=== PATIENT | female | born 1930 | race Hispanic/Latino ===

== ENCOUNTER 2016-07-12 10:41 | Inpatient (IN) | payer MEDICARE, MEDICAID ==
[~2016-07-12] VITALS: Ht 149.9 cm; Wt 67.1 kg
[~2016-07-12 10:41] MED LIST: ARICEPT10 MG ORAL; ATIVAN2 MG ORAL; CALCITONIN-SAL3.7 ML NS; CIPROFLOXACIN500 M2 ORAL; DILAUDID1 MG/1 ML PO; DOCUSATE SODIU100 MG ORAL; FISH OIL 1,0001 EAC5 ORAL; FLAGYL500 MG ORAL; FLORANEX TABLE1 EAC1 PO; FLUVOXAMINE MAL50 MG ORAL; KEFLEX250 MG ORAL; LIDOCAINE700 M1 TP; LOPRESSOR25 M1 ORAL; MACROBID100 MG ORAL; MULTIVITAMINS1 EAC8 ORAL; NAMENDA10 MG ORAL; NITROFURANTOIN100 MG PO; NORCO 10/3251 EA ORAL; PANTOPRAZOLE SO40 MG ORAL; PHENYTOIN100 MG/4 M ORAL; SIMVASTATIN20 MG ORAL; TOPROL XL100 MG ORAL; TYLENOL650 MG/20. ORAL; VESICARE10 MG ORAL; ZYPREXA5 MG ORAL
[2016-07-12 12:04] LABS: BASOPHILS % (AUTO) 1.9 % (0.0-2.0); EOSINOPHILS % (AUTO) 4.2 % (0.0-3.0); LYMPHOCYTES % (AUTO) 41.3 % (20.0-45.0); MEAN CORPUSCULAR HEMOGLOBIN 26.7 PG (27.0-31.0); MEAN CORPUSCULAR HGB CONC 32.2 G/DL (32.0-36.0); MEAN CORPUSCULAR VOLUME 83 FL (80-99); MONOCYTES % (AUTO) 15.8 % (1.0-10.0); NEUTROPHILS % (AUTO) 36.9 % (45.0-75.0); PLATELET COUNT 394 K/UL (150-450); RED BLOOD COUNT 4.64 M/UL (4.20-5.40); WHITE BLOOD COUNT 7.6 K/UL (4.8-10.8)
[2016-07-12 12:20] LABS: ALANINE AMINOTRANSFERASE 25 U/L (3-33); ALBUMIN/GLOBULIN RATIO 1.2 (1.0-2.7); ANION GAP 15 (5-15); ASPARTATE AMINO TRANSFERASE 31 U/L (5-40); CALCIUM 9.3 mg/dL (8.6-10.2); CARBON DIOXIDE 22 mEQ/L (20-30); CHLORIDE 83 mEQ/L (98-107); CREATININE 0.7 mg/dL (0.5-0.9); HEMOLYSIS 58; POTASSIUM 4.6 mEQ/L (3.4-4.9); SODIUM 120 mEQ/L (135-145); TOTAL PROTEIN 6.9 g/dL (6.6-8.7); TROPONIN I < 0.30 ng/mL (<=0.30)
[2016-07-12 12:25] VITALS: BP 121/70
[2016-07-12] MEDS ORDERED: Acetaminophen 500mg (ES) tab ORAL ONE (12:45)
[2016-07-12] MEDS ORDERED: BISACODYL5 MG RECTAL (13:05)
[2016-07-12] MEDS ORDERED: CALCIUM + D SO1 EACH PO (13:05)
[2016-07-12] MEDS ORDERED: ECOTRIN325 MG ORAL (13:05)
[2016-07-12] MEDS ORDERED: ACYCLOVIR400 MG ORAL (13:05)
[2016-07-12] MEDS ORDERED: VITAMIN D250000 UNI1 ORAL (13:07)
[2016-07-12] MEDS ORDERED: FERROUS SULFAT325 MG ORAL (13:07)
[2016-07-12] MEDS ORDERED: MELATONIN1 M1 PO (13:10)
[2016-07-12] MEDS ORDERED: PROBIOTIC COMP1 EAC1 PO (13:10)
[2016-07-12] MEDS ORDERED: LORAZEPAM1 MG ORAL (13:10)
[2016-07-12] MEDS ORDERED: LEVOTHYROXINE50 MCG ORAL (13:10)
[2016-07-12] MEDS ORDERED: RESTORIL7.5 MG ORAL (13:12)
[2016-07-12] MEDS ORDERED: ZANTAC150 MG ORAL (13:12)
[2016-07-12] MEDS ORDERED: PredniSONE 20mg tab ORAL ONE (13:15)
[2016-07-12 15:09] VITALS: BP 142/71
--- NOTE | 2016-07-12 16:01 | Emergency Room Report ---
History of Present Illness General Chief Complaint: Abnormal Labs Source: Patient, Medical Record Present Illness HPI This patient presents from a half-way facility. She is sent in for her hyponatremia that was identified at the half-way facility. The patient herself has no complaints other than that she has pain on her chest. She states that it jackson. She has a history of dementia, hypothyroidism, seizures. Allergies: Coded Allergies: NO KNOWN DRUG ALLERGIES (Unverified Allergy, Unknown, 07/29/14) Patient History Past Medical History: see triage record, old chart reviewed, dementia, seizures , psych hx Social History: Denies: alcohol use, drug use, smoking Reviewed Nursing Documentation: PMH: Agreed, PSxH: Agreed Nursing Documentation-PMH Hx Cardiac Problems: Yes Hx Hypertension: Yes Hx Asthma: Yes Hx Diabetes: Yes Hx Cancer: No Hx Gastrointestinal Problems: Yes Hx Neurological Problems: Yes Hx Dementia: Yes Hx Alzheimer's Disease: Yes Hx Seizures: Yes Review of Systems All Other Systems: negative except mentioned in HPI Physical Exam Vital Signs Date Time Temp Pulse Resp B/P Pulse Ox O2 Delivery O2 Flow Rate FiO2 07/12/16 10:51 97.5 69 20 100/52 97 Room Air Sp02 EP Interpretation: reviewed, normal General Appearance: no apparent distress, alert, GCS 15, non-toxic Head: normocephalic, atraumatic Eyes: bilateral eye PERRL, bilateral eye normal inspection ENT: hearing grossly normal, normal pharynx, no angioedema, normal voice Neck: full range of motion, supple/symm/no masses Respiratory: chest non-tender, lungs clear, normal breath sounds, speaking full sentences Cardiovascular #1: normal inspection - See skin exam, regular rate, rhythm, no edema Gastrointestinal: normal bowel sounds, non tender, soft, non-distended, no guarding, no rebound Rectal: deferred Musculoskeletal: back normal, gait/station normal, normal range of motion, non- tender Neurologic: alert, oriented x3, responsive, motor strength/tone normal, sensory intact, speech normal Psychiatric: judgement/insight normal, memory normal, mood/affect normal, no suicidal/homicidal ideation Skin: warm/dry, well hydrated, other - Erythematous rash in dermatomal distribution on R. chest wall. Medical Decision Making Diagnostic Impression: Primary Impression: Hyponatremia Additional Impression: Varicella zoster ER Course This patient presents with hyponatremia. I am unsure of the etiology of this. Possibly diabetes insipidus. Regardless, the patient is stable well appearing overall. She is also found to have varicella-zoster rash on her chest wall. It is in a dermatomal pattern does not appear disseminated. This is the location of the patient's pain that she complains of. The patient is admitted for further evaluation and treatment further monitoring of her hyponatremia. Labs Test 07/12/16 11:35 White Blood Count 7.6 K/UL (4.8-10.8) Red Blood Count 4.64 M/UL (4.20-5.40) Hemoglobin 12.4 G/DL (12.0-16.0) Hematocrit 38.5 % (37.0-47.0) Mean Corpuscular Volume 83 FL (80-99) Mean Corpuscular Hemoglobin 26.7 PG (27.0-31.0) Mean Corpuscular Hemoglobin Concent 32.2 G/DL (32.0-36.0) Red Cell Distribution Width 17.0 % (11.6-14.8) Platelet Count 394 K/UL (150-450) Mean Platelet Volume 5.0 FL (6.5-10.1) Neutrophils (%) (Auto) 36.9 % (45.0-75.0) Lymphocytes (%) (Auto) 41.3 % (20.0-45.0) Monocytes (%) (Auto) 15.8 % (1.0-10.0) Eosinophils (%) (Auto) 4.2 % (0.0-3.0) Basophils (%) (Auto) 1.9 % (0.0-2.0) Sodium Level 120 mEQ/L (135-145) Potassium Level 4.6 mEQ/L (3.4-4.9) Chloride Level 83 mEQ/L (98-107) Carbon Dioxide Level 22 mEQ/L (20-30) Anion Gap 15 (5-15) Blood Urea Nitrogen 16 mg/dL (7-23) Creatinine 0.7 mg/dL (0.5-0.9) Estimat Glomerular Filtration Rate mL/min (>60) Glucose Level 106 mg/dL (74-106) Calcium Level 9.3 mg/dL (8.6-10.2) Total Bilirubin 0.2 mg/dL (0.0-1.2) Aspartate Amino Transf (AST/SGOT) 31 U/L (5-40) Alanine Aminotransferase (ALT/SGPT) 25 U/L (3-33) Alkaline Phosphatase 129 U/L (35-104) Troponin I < 0.30 ng/mL (<=0.30) Total Protein 6.9 g/dL (6.6-8.7) Albumin 3.8 g/dL (3.5-5.2) Globulin 3.1 g/dL Albumin/Globulin Ratio 1.2 (1.0-2.7) EKG Diagnostic Results Rate: normal Rhythm: other - SR w/ 1st degree AV block ST Segments: no acute changes Rhythm Strip Diag. Results EP Interpretation: yes Rate: 70's Rhythm: NSR, no PVC's, no ectopy Last Vital Signs Date Time Temp Pulse Resp B/P Pulse Ox O2 Delivery O2 Flow Rate FiO2 07/12/16 15:09 97.5 69 17 142/71 99 Room Air Disposition: ADMITTED INPATIENT Condition: Serious Referrals: SABINO SRINIVASAN (PCP) NINO DUPREE D.O. Jul 12, 2016 16:01
[2016-07-12 17:34] VITALS: BP 127/55
[2016-07-12 19:43] VITALS: BP 132/50
[2016-07-12] MEDS ORDERED: Phenytoin Susp 100mg/4ml ORAL SCH (20:00)
[2016-07-12] MEDS ORDERED: Miralax 17gm pkt ORAL PRN (20:00)
[2016-07-12] MEDS ORDERED: Milk of Magnesia 30ml Ud ORAL PRN (20:00)
[2016-07-12 20:37] VITALS: BP 155/59
[2016-07-12] MEDS ORDERED: Phenytoin 100mg cap ORAL SCH (21:00)
[2016-07-12] MEDS ORDERED: ZyPREXA Zydis 5mg tab ORAL SCH (21:00)
[2016-07-12] MEDS ORDERED: DuoNeb 0.5-3(2.5)mg/3ml neb HHN PRN (22:00)
[2016-07-12] MEDS ORDERED: LORazepam 1mg tab ORAL PRN (22:00)
[2016-07-12] MEDS ORDERED: Norco 10mg/325mg tab ORAL SCH (22:00)
[2016-07-12] MEDS: Memantine 10mg tab ORAL SCH (22:44)
[2016-07-12] MEDS: Docusate 100mg tablet ORAL SCH (22:45)
[2016-07-12] MEDS: Heparin 5000 units/ml inj SUBQ SCH (22:47)
[2016-07-13 00:08] VITALS: BP 137/59
--- NOTE | 2016-07-13 00:33 | History and Physical ---
History of Present Illness General Date patient seen: Jul 12, 2016 Time patient seen: 17:00 Reason for Hospitalization: Abnormal Labs Present Illness HPI 85 year old female with pmh of Pulmonary HTN, SDH, Seizure d/o, HLD, PSVT, Anemia, BLE DVTs, Chronic back pain, Asthma, Anxiety, Alzheimer's, recurrent UTIs, CVA who was transferred from SNF given increase lethargy, confusion, and abnormal labs. Pt was noted to have Na 115 at labs done at [facility]. She also generally more weak, fatigued and confused than usual. Pt c/o pain in upper back , burning sensation. In ED, pt found to have herpes zoster on upper back and given Acyclovir. Pt also noted to have Na 120. Pt was given 1L NS. Allergies: Coded Allergies: NO KNOWN DRUG ALLERGIES (Unverified Allergy, Unknown, 07/29/14) Medication History Scheduled Acidophilus/Bulgaricus (Floranex Tablet), 1 EACH PO BID, (Reported) Acyclovir* (Acyclovir*), 800 MG ORAL FIVE TIMES A DAY, (Reported) Aspirin* (Ecotrin*), 81 MG ORAL DAILY, (Reported) Bisacodyl* (Dulcolax*), 10 MG RECTAL ONCE, (Reported) Ca Carbonate/Vitamin D3/Vit K (Calcium + D Soft Chewable Tab), 1 EACH PO DAILY, (Reported) Calcitonin,Nesbit,Synthetic (Calcitonin-Nesbit), 3.7 ML NS DAILY, (Reported) Docusate Sodium* (Docusate Sodium*), 100 MG ORAL TWICE A DAY, (Reported) Donepezil Hcl* (Aricept*), 10 MG ORAL DAILY, (Reported) Ergocalciferol (Vitamin D2)* (Vitamin D*), 50,000 UNIT ORAL ONCE A WEEK, ( Reported) Ferrous Sulfate* (Ferrous Sulfate*), 325 MG ORAL DAILY, (Reported) Fluvoxamine Maleate (Fluvoxamine Maleate), 50 MG ORAL BID, (Reported) Lactobacillus Cmb#7/Fos/Inulin (Probiotic Complex Tablet), Unknown Dose PO DAILY , (Reported) Levothyroxine Sodium* (Levothyroxine Sodium*), 50 MCG ORAL DAILY, (Reported) Lidocaine (Lidocaine), 1,400 MG TP DAILY, (Reported) Lorazepam* (Lorazepam*), 1 MG ORAL THREE TIMES A DAY, (Reported) Memantine Hcl* (Namenda*), 10 MG ORAL TWICE A DAY, (Reported) Metoprolol Succinate* (Toprol Xl*), 200 MG ORAL DAILY Multivitamin With Minerals (Multivitamins With Minerals*), 1 TAB ORAL DAILY, ( Reported) Nitrofurantoin Macrocrystal (Nitrofurantoin), 100 MG PO BID Nitrofurantoin Monohyd/M-Cryst (Nitrofurantoin [place]-Mcr 100 mg), 100 MG ORAL BID , (Reported) Olanzapine* (Zyprexa*), 5 MG ORAL HS, (Reported) [place]-3 Fatty Acids/Fish Oil (Fish Oil 1,000 Mg Capsule), 1 CAP ORAL BID, ( Reported) Pantoprazole* (Pantoprazole*), 40 MG ORAL DAILY, (Reported) Phenytoin (Phenytoin*), 300 MG ORAL HS, (Reported) Ranitidine Hcl* (Zantac*), 150 MG ORAL TWICE A DAY, (Reported) Simvastatin (Zocor), 20 MG ORAL BEDTIME, (Reported) Solifenacin Succinate (Vesicare*), 10 MG ORAL HS, (Reported) Temazepam* (Restoril*), 7.5 MG ORAL BEDTIME, (Reported) Scheduled PRN Acetaminophen (Acetaminophen), 650 MG ORAL Q6H PRN for Prn Headache/Temp > 101, (Reported) Lorazepam* (Ativan*), 2 MG ORAL THREE TIMES A DAY PRN for Agitation, (Reported) Melatonin (Melatonin), 1 MG PO BEDTIME PRN for Insomnia, (Reported) Patient History Healthcare decision maker Resuscitation status Advanced Directive on File Family History Family History: Patient reports no known family medical history. Social History Social History: (1) No significant social history Review of Systems ROS Narrative Unable to obtain ROS given AMS Physical Exam Physical Exam Narrative General: alert, cooperative, no distress, appears stated age, lethargic, confused Head: normocephalic, without obvious abnormality, atraumatic Eyes: conjunctivae/corneas clear. PERRL, EOM's intact Throat: lips, mucosa, and tongue normal. MMM Neck: supple, symmetrical, trachea midline, and no JVD Lungs: clear to auscultation bilaterally Heart: regular rate and rhythm, S1, S2 normal, no murmur, click, rub or gallop Abdomen: soft, non-tender, non-distended, bowel sounds normal; no masses or organomegaly Extremities: extremities normal, atraumatic, no cyanosis or edema Pulses: 2+ and symmetric Skin: skin color, texture, turgor normal R upper back with herpes zoster rash in dermatomal distribution Neurologic: grossly normal, no focal deficits Last 24 Hour Vital Signs Date Time Temp Pulse Resp B/P Pulse Ox O2 Delivery O2 Flow Rate FiO2 07/13/16 00:08 98.2 65 17 137/59 93 Room Air 07/12/16 20:37 97.2 71 22 155/59 97 Room Air 07/12/16 19:51 97.5 69 17 132/50 99 Room Air 07/12/16 19:43 97.5 69 17 132/50 99 Room Air 07/12/16 17:34 97.5 70 15 127/55 99 Room Air 07/12/16 15:09 97.5 69 17 142/71 99 Room Air 07/12/16 14:48 97.5 07/12/16 12:25 97.5 69 18 121/70 98 Room Air 07/12/16 10:51 97.5 69 20 100/52 97 Room Air Intake and Output 07/12/16 07/13/16 19:00 07:00 Intake Total 1120 ml Balance 1120 ml Intake Oral 120 ml Other 1000 ml # Voids 3 Laboratory Tests Test 07/12/16 11:35 White Blood Count 7.6 K/UL (4.8-10.8) Red Blood Count 4.64 M/UL (4.20-5.40) Hemoglobin 12.4 G/DL (12.0-16.0) Hematocrit 38.5 % (37.0-47.0) Mean Corpuscular Volume 83 FL (80-99) Mean Corpuscular Hemoglobin 26.7 PG (27.0-31.0) L Mean Corpuscular Hemoglobin Concent 32.2 G/DL (32.0-36.0) Red Cell Distribution Width 17.0 % (11.6-14.8) H Platelet Count 394 K/UL (150-450) Mean Platelet Volume 5.0 FL (6.5-10.1) L Neutrophils (%) (Auto) 36.9 % (45.0-75.0) L Lymphocytes (%) (Auto) 41.3 % (20.0-45.0) Monocytes (%) (Auto) 15.8 % (1.0-10.0) H Eosinophils (%) (Auto) 4.2 % (0.0-3.0) H Basophils (%) (Auto) 1.9 % (0.0-2.0) Sodium Level 120 mEQ/L (135-145) L Potassium Level 4.6 mEQ/L (3.4-4.9) Chloride Level 83 mEQ/L (98-107) L Carbon Dioxide Level 22 mEQ/L (20-30) Anion Gap 15 (5-15) Blood Urea Nitrogen 16 mg/dL (7-23) Creatinine 0.7 mg/dL (0.5-0.9) Estimat Glomerular Filtration Rate mL/min (>60) Glucose Level 106 mg/dL (74-106) Calcium Level 9.3 mg/dL (8.6-10.2) Total Bilirubin 0.2 mg/dL (0.0-1.2) Aspartate Amino Transf (AST/SGOT) 31 U/L (5-40) Alanine Aminotransferase (ALT/SGPT) 25 U/L (3-33) Alkaline Phosphatase 129 U/L (35-104) H Troponin I < 0.30 ng/mL (<=0.30) Total Protein 6.9 g/dL (6.6-8.7) Albumin 3.8 g/dL (3.5-5.2) Globulin 3.1 g/dL Albumin/Globulin Ratio 1.2 (1.0-2.7) Thyroid Stimulating Hormone (TSH) 7.030 uIU/mL (0.300-4.500) Height (Feet): 4 Height (Inches): 11.00 Weight (Pounds): 148 Medications Current Medications Medications (Trade) Dose Ordered Sig/Jacque Route PRN Reason Start Time Stop Time Status Last Admin Dose Admin Acetaminophen (Tylenol) 650 mg Q4H PRN ORAL Mild Pain (Pain Scale 1-3) 07/12/16 20:00 08/11/16 19:59 07/12/16 21:04 Acetaminophen/ Hydrocodone Bitart ([place] 10/325) 1 ea Q4H PRN ORAL Moderate pain 07/13/16 02:00 07/20/16 01:59 Acyclovir (Zovirax) 800 mg Q24H ORAL 07/12/16 23:00 08/11/16 22:59 07/13/16 00:02 Albuterol/ Ipratropium (DuoNeb 0.5-3(2.5)mg/3ml) 3 ml Q6HR PRN HHN shortness of breath 07/12/16 22:00 07/17/16 21:59 Aspirin (ASA) 81 mg DAILY ORAL 07/13/16 09:00 08/12/16 08:59 Bisacodyl (Dulcolax) 10 mg HSPRN PRN RECTAL Constipation THIRD LINE 07/12/16 20:39 08/11/16 19:59 Calcitonin [place]es[place] (Miacalcin) 1 sprays DAILY NASAL 07/13/16 09:00 08/12/16 08:59 Dextrose (Dextrose 50%) STAT PRN IV Hypoglycemia 07/12/16 20:00 08/11/16 19:59 Docusate Sodium (Colace) 100 mg EVERY 12 HOURS ORAL 07/12/16 21:00 08/11/16 20:59 07/12/16 22:45 Donepezil HCl (Aricept) 10 mg DAILY ORAL 07/13/16 09:00 08/12/16 08:59 Ergocalciferol (Drisdol) 50,000 intlu QWEEK ORAL 07/18/16 09:00 08/17/16 08:59 Ferrous Sulfate (Feosol) 325 mg DAILY ORAL 07/13/16 09:00 08/12/16 08:59 Heparin Sodium (Porcine) (Heparin 5000 units/ml) 5,000 units EVERY 12 HOURS SUBQ 07/12/16 21:00 08/11/16 20:59 07/12/16 22:47 Levothyroxine Sodium (Synthroid) 50 mcg ACBREAKFAST ORAL 07/13/16 06:30 08/12/16 06:29 Lidocaine (Lidoderm 5% PATCH) 1 patch DAILY@0630 TDERMAL 07/13/16 06:30 08/12/16 06:29 Lorazepam (Ativan) 1 mg THREE TIMES A DAY ORAL 07/13/16 21:00 07/20/16 20:59 Lorazepam (Ativan) 1 mg TIDPRN PRN ORAL for anxiety 07/12/16 22:00 07/19/16 21:59 Magnesium Hydroxide (Mom) 30 ml HSPRN PRN ORAL Constipation SECOND LINE 07/12/16 20:00 08/11/16 19:59 Memantine (Namenda) 10 mg TWICE A DAY ORAL 07/12/16 21:00 08/11/16 20:59 07/12/16 22:44 Metoprolol Succinate (Toprol XL) 200 mg DAILY ORAL 07/13/16 09:00 08/12/16 08:59 Multivitamins Therapeutic (Therapeutic Multivitamin) 1 ea DAILY ORAL 07/13/16 09:00 08/12/16 08:59 Olanzapine (ZyPREXA) 5 mg QHS ORAL 07/12/16 22:30 08/11/16 22:29 07/13/16 00:01 Ondansetron HCl (Zofran) 4 mg Q6H PRN IVP Nausea & Vomiting 07/12/16 20:00 08/11/16 19:59 Pantoprazole (Protonix) 40 mg DAILY ORAL 07/13/16 09:00 08/12/16 08:59 Phenytoin (Dilantin) 200 mg BEDTIME ORAL 07/13/16 23:00 08/12/16 22:59 Polyethylene Glycol (Miralax) 17 gm HSPRN PRN ORAL Constipation FIRST LINE 07/12/16 20:00 08/11/16 19:59 Pravastatin Sodium (Pravachol) 20 mg BEDTIME ORAL 07/12/16 21:00 08/11/16 20:59 07/12/16 22:45 Sodium Chloride (Sodium Chloride 1000ml bag) 1,000 ml @ 100 mls/hr Q10H IVLG 07/12/16 21:00 08/11/16 20:59 07/12/16 22:44 Solifenacin (Vesicare) 10 mg DAILY ORAL 07/13/16 09:00 08/12/16 08:59 Assessment/Plan Problem List: (1) Herpes zoster ICD Codes: B02.9 - Zoster without complications SNOMED: 6659486 (2) Generalized weakness ICD Codes: R53.1 - Weakness SNOMED: 51259573 (3) Toxic metabolic encephalopathy ICD Codes: G92 - Toxic encephalopathy SNOMED: 656018449 (4) Hyponatremia ICD Codes: E87.1 - Hyponatremia SNOMED: 93996037 Status: stable Assessment/Plan Hyponatremia likely hypovolemic type 2/2 dehydration Admit inpatient Check urine studies Nephrology consult NS at 100mL/h ID consult Acyclovir 800mg TID Cont all SNF meds [employer] eval PT/OT DVT Prophylaxis: SCD, HSQ Code Status: Full Hospital Classification Declaration: Based on this initial evaluation, and depending on the patient's clinical course, I anticipate that this patient will require hospitalization for 2-3 days for hyponatremia, AMS and close respiratory /hemodynamic monitoring. Disposition: Once the patient is stable to leave the hospital, I anticipate the patient will likely be discharged to the following environment: home with HH vs SNF I spent 70 minutes on this patient's case, and 38 minutes were dedicated to counseling and/or care coordination. Discussed with patient/family, nursing staff, SW/CM, ED physician regarding clinical status, treatment course, and disposition planning. Time of note may not reflect time of encounter. Prachi Mejia M.D. Jul 13, 2016 00:33
[2016-07-13] MEDS: Norco 10mg/325mg tab ORAL PRN ×3 (01:24→19:14)
[2016-07-13 04:10] VITALS: BP 133/68
[2016-07-13 07:53] VITALS: BP 134/57
[2016-07-13] MEDS ORDERED: Donepezil 10mg tab ORAL SCH (09:00)
[2016-07-13] MEDS: Multivitamin w/Minerals tab ORAL SCH (09:08)
[2016-07-13] MEDS: Docusate 100mg tablet ORAL SCH ×2 (09:08→18:07)
[2016-07-13] MEDS: LORazepam 1mg tab ORAL SCH (09:09)
[2016-07-13] MEDS: Memantine 10mg tab ORAL SCH ×2 (09:10→18:07)
[2016-07-13 09:14] LABS: ALANINE AMINOTRANSFERASE 29 U/L (3-33); ALBUMIN/GLOBULIN RATIO 1.3 (1.0-2.7); ANION GAP 18 (5-15); ASPARTATE AMINO TRANSFERASE 33 U/L (5-40); CARBON DIOXIDE 22 mEQ/L (20-30); CHLORIDE 88 mEQ/L (98-107); CREATININE 0.6 mg/dL (0.5-0.9); HEMOLYSIS 93; MAGNESIUM 2.2 mg/dL (1.7-2.5); POTASSIUM 4.9 mEQ/L (3.4-4.9); SODIUM 128 mEQ/L (135-145); TOTAL PROTEIN 7.6 g/dL (6.6-8.7)
[2016-07-13] MEDS: Aspirin Baby 81mg ORAL SCH (10:47)
[2016-07-13] MEDS: Metoprolol XL 100mg tab ORAL SCH (10:47)
[2016-07-13] MEDS: Solifenacin 10mg tab ORAL SCH (10:47)
[2016-07-13] MEDS: Heparin 5000 units/ml inj SUBQ SCH ×2 (10:51→22:49)
[2016-07-13 11:30] VITALS: BP 129/55
--- NOTE | 2016-07-13 11:58 | Infectious Diseases Prog Note ---
Assessment/Plan Assessment/Plan Full consult to follow: A) 1) right back herpes zoster virus/shingles 2) no cellulitis at lesion sites 3) htn, dm, Alzheimer 4) nkda P) 1) acyclovir, d/w pharmacy about renal dosing in this elderly patient 2) watch labs/cr 3) continue treatment per Dr. Velarde 4) thank you Subjective Allergies: Coded Allergies: NO KNOWN DRUG ALLERGIES (Unverified Allergy, Unknown, 07/29/14) Objective Vital Signs Last 24 Hour Vital Signs Date Time Temp Pulse Resp B/P Pulse Ox O2 Delivery O2 Flow Rate FiO2 07/13/16 11:30 97.3 71 18 129/55 97 Room Air 07/13/16 10:47 66 134/57 07/13/16 07:53 97.0 66 18 134/57 96 Room Air 07/13/16 06:03 84 07/13/16 04:10 98.6 69 19 133/68 96 Room Air 07/13/16 03:07 70 07/13/16 00:08 98.2 65 17 137/59 93 Room Air 07/12/16 20:37 97.2 71 22 155/59 97 Room Air 07/12/16 19:51 97.5 69 17 132/50 99 Room Air 07/12/16 19:43 97.5 69 17 132/50 99 Room Air 07/12/16 17:34 97.5 70 15 127/55 99 Room Air 07/12/16 15:09 97.5 69 17 142/71 99 Room Air 07/12/16 14:48 97.5 07/12/16 12:25 97.5 69 18 121/70 98 Room Air Height (Feet): 4 Height (Inches): 11.00 Weight (Pounds): 148 Laboratory Tests Test 07/13/16 08:14 White Blood Count Pending Red Blood Count Pending Hemoglobin Pending Hematocrit Pending Mean Corpuscular Volume Pending Mean Corpuscular Hemoglobin Pending Mean Corpuscular Hemoglobin Concent Pending Red Cell Distribution Width Pending Platelet Count Pending Mean Platelet Volume Pending Neutrophils (%) (Auto) Pending Lymphocytes (%) (Auto) Pending Monocytes (%) (Auto) Pending Eosinophils (%) (Auto) Pending Basophils (%) (Auto) Pending Sodium Level 128 mEQ/L (135-145) L Potassium Level 4.9 mEQ/L (3.4-4.9) Chloride Level 88 mEQ/L (98-107) L Carbon Dioxide Level 22 mEQ/L (20-30) Anion Gap 18 (5-15) H Blood Urea Nitrogen 9 mg/dL (7-23) Creatinine 0.6 mg/dL (0.5-0.9) Estimat Glomerular Filtration Rate mL/min (>60) Glucose Level 118 mg/dL (74-106) H Calcium Level 10.0 mg/dL (8.6-10.2) Magnesium Level 2.2 mg/dL (1.7-2.5) Total Bilirubin 0.2 mg/dL (0.0-1.2) Aspartate Amino Transf (AST/SGOT) 33 U/L (5-40) Alanine Aminotransferase (ALT/SGPT) 29 U/L (3-33) Alkaline Phosphatase 146 U/L (35-104) H Total Protein 7.6 g/dL (6.6-8.7) Albumin 4.3 g/dL (3.5-5.2) Globulin 3.3 g/dL Albumin/Globulin Ratio 1.3 (1.0-2.7) Current Medications Medications (Trade) Dose Ordered Sig/Jacque Route PRN Reason Start Time Stop Time Status Last Admin Dose Admin Acetaminophen (Tylenol) 650 mg Q4H PRN ORAL Mild Pain (Pain Scale 1-3) 07/12/16 20:00 08/11/16 19:59 07/12/16 21:04 Acetaminophen/ Hydrocodone Bitart ([place] 10/325) 1 ea Q4H PRN ORAL Moderate pain 07/13/16 02:00 07/20/16 01:59 07/13/16 09:09 Acyclovir (Zovirax) 800 mg Q24H ORAL 07/12/16 23:00 08/11/16 22:59 07/13/16 00:02 Albuterol/ Ipratropium (DuoNeb 0.5-3(2.5)mg/3ml) 3 ml Q6HR PRN HHN shortness of breath 07/12/16 22:00 07/17/16 21:59 Aspirin (ASA) 81 mg DAILY ORAL 07/13/16 09:00 08/12/16 08:59 07/13/16 10:47 Bisacodyl (Dulcolax) 10 mg HSPRN PRN RECTAL Constipation THIRD LINE 07/12/16 20:39 08/11/16 19:59 Calcitonin [place] (Miacalcin) 1 sprays DAILY NASAL 07/13/16 09:00 08/12/16 08:59 07/13/16 09:14 Dextrose (Dextrose 50%) STAT PRN IV Hypoglycemia 07/12/16 20:00 08/11/16 19:59 Docusate Sodium (Colace) 100 mg EVERY 12 HOURS ORAL 07/12/16 21:00 08/11/16 20:59 07/13/16 09:08 Donepezil HCl (Aricept) 10 mg DAILY ORAL 07/13/16 09:00 08/12/16 08:59 07/13/16 09:09 Ergocalciferol (Drisdol) 50,000 intlu QWEEK ORAL 07/18/16 09:00 08/17/16 08:59 Ferrous Sulfate (Feosol) 325 mg DAILY ORAL 07/13/16 09:00 08/12/16 08:59 07/13/16 09:08 Heparin Sodium (Porcine) (Heparin 5000 units/ml) 5,000 units EVERY 12 HOURS SUBQ 07/12/16 21:00 08/11/16 20:59 07/13/16 10:51 Levothyroxine Sodium (Synthroid) 50 mcg ACBREAKFAST ORAL 07/13/16 06:30 08/12/16 06:29 07/13/16 07:03 Lidocaine (Lidoderm 5% PATCH) 1 patch DAILY@0630 TDERMAL 07/13/16 06:30 08/12/16 06:29 07/13/16 07:04 Lorazepam (Ativan) 1 mg THREE TIMES A DAY ORAL 07/13/16 21:00 07/20/16 20:59 07/13/16 09:09 Lorazepam (Ativan) 1 mg TIDPRN PRN ORAL for anxiety 07/12/16 22:00 07/19/16 21:59 Magnesium Hydroxide (Mom) 30 ml HSPRN PRN ORAL Constipation SECOND LINE 07/12/16 20:00 08/11/16 19:59 Memantine (Namenda) 10 mg TWICE A DAY ORAL 07/12/16 21:00 08/11/16 20:59 07/13/16 09:10 Metoprolol Succinate (Toprol XL) 200 mg DAILY ORAL 07/13/16 09:00 08/12/16 08:59 07/13/16 10:47 Multivitamins Therapeutic (Therapeutic Multivitamin) 1 ea DAILY ORAL 07/13/16 09:00 08/12/16 08:59 07/13/16 09:08 Olanzapine 5 mg 5 mg QHS ORAL 07/12/16 22:30 08/11/16 22:29 07/13/16 00:01 Ondansetron HCl (Zofran) 4 mg Q6H PRN IVP Nausea & Vomiting 07/12/16 20:00 08/11/16 19:59 Pantoprazole (Protonix) 40 mg DAILY ORAL 07/13/16 09:00 08/12/16 08:59 07/13/16 09:08 Phenytoin (Dilantin) 200 mg BEDTIME ORAL 07/13/16 23:00 08/12/16 22:59 Polyethylene Glycol (Miralax) 17 gm HSPRN PRN ORAL Constipation FIRST LINE 07/12/16 20:00 08/11/16 19:59 Pravastatin Sodium (Pravachol) 20 mg BEDTIME ORAL 07/12/16 21:00 08/11/16 20:59 07/12/16 22:45 Sodium Chloride (Sodium Chloride 1000ml bag) 1,000 ml @ 75 mls/hr [id number] IVLG 07/13/16 10:00 08/12/16 09:59 07/13/16 10:46 Solifenacin (Vesicare) 10 mg DAILY ORAL 07/13/16 09:00 08/12/16 08:59 07/13/16 10:47 TIERA PRADO Jul 13, 2016 11:58
[2016-07-13 12:11] LABS: BASOPHILS % (AUTO) 0.9 % (0.0-2.0); EOSINOPHILS % (AUTO) 1.3 % (0.0-3.0); LYMPHOCYTES % (AUTO) 28.1 % (20.0-45.0); MEAN CORPUSCULAR HEMOGLOBIN 26.8 PG (27.0-31.0); MEAN CORPUSCULAR HGB CONC 31.6 G/DL (32.0-36.0); MEAN CORPUSCULAR VOLUME 85 FL (80-99); MEAN PLATELET VOLUME 5.6 FL (6.5-10.1); MONOCYTES % (AUTO) 14.7 % (1.0-10.0); NEUTROPHILS % (AUTO) 55.1 % (45.0-75.0); PLATELET COUNT 433 K/UL (150-450); RED BLOOD COUNT 4.58 M/UL (4.20-5.40); RED CELL DISTRIBUTION WIDTH 17.6 % (11.6-14.8); WHITE BLOOD COUNT 8.2 K/UL (4.8-10.8)
--- NOTE | 2016-07-13 14:03 | Consultation ---
Consult Note Consult Note asked to eval for hypoNatremia- This patient presents from a detention facility. She is sent in for her hyponatremia that was identified at the detention facility. The patient herself has no complaints other than that she has pain on her chest. She states that it jackson. She has a history of dementia, hypothyroidism, seizures. Hx Cardiac Problems: Yes Hx Hypertension: Yes Hx Asthma: Yes Hx Diabetes: Yes Hx Gastrointestinal Problems: Yes Hx Neurological Problems: Yes Hx Dementia: Yes Hx Alzheimer's Disease: Yes Hx Seizures: Yes patient examined- data reviewed- orders in EMR . Assessment/Plan status: HypoNatremia, Likely depletional, r/o SIADH Right back Herpes Zoster / Shingles Dementia High Cholestrol DM HTN Plan: Saline infusion check Urine Os, Na check S os, TSH, Uric acid monitor lytes further comments per above results ALYSON FLANAGAN Jul 13, 2016 14:03
[2016-07-13 16:00] VITALS: BP 119/57
[2016-07-13 17:43] LABS: APPEARANCE,URINE CLEAR; KETONES,URINE NEGATIVE (NEGATIVE); LEUKOCYTE ESTERASE ,URINE 1+ (NEGATIVE); NITRITE,URINE NEGATIVE (NEGATIVE); PH,URINE 6.5 (4.5-8.0); PROTEIN,URINE NEGATIVE (NEGATIVE); UROBILINOGEN,URINE NORMAL MG/DL (0.0-1.0)
[2016-07-13 18:18] LABS: RBC,URINE 0-2 /HPF (0 - 2)
[2016-07-13 18:19] LABS: WBC,URINE 0 /HPF (0 - 2)
[2016-07-13 20:00] VITALS: BP 118/54
--- NOTE | 2016-07-13 21:58 | Consultation ---
DATE OF CONSULTATION: INFECTIOUS DISEASE CONSULTATION CONSULTING PHYSICIAN: Agusto Orr M.D. ATTENDING PHYSICIAN: María Bustamante M.D. REFERRING PHYSICIAN: I was asked to by Dr. Velarde to see this patient. REASON FOR CONSULTATION: Right back herpes zoster virus infection/shingles. CHIEF COMPLAINT: Coming in with hyponatremia. HISTORY OF PRESENT ILLNESS: This 85-year-old female comes into [facility] and the patient had hyponatremia. The patient is being treated by Dr. Velarde. It was noted that the patient had significant herpes zoster rash in the right back dermatome up to her side, but mostly in the back. Infectious Disease consultation requested for antiviral therapy in this patient with herpes zoster virus/shingles. The patient does not know how long the lesions have been there, but she has some pain in the side. Case discussed with Dr. Velarde. MAR was noted. Orders was noted. Notes also reviewed. REVIEW OF SYSTEMS: Constitutional: The patient has generalized weakness and fatigue. No fever, chills, night sweats, or weight loss. Head and Neck: neck stiffness. Cardiac: No pressure or chest pain. GI: No nausea, vomiting, or diarrhea. : No Camacho. Pulmonary: No congestion or shortness of breath. Skin: No rash or itching. Extremities: No extremity pain. Neurologic: No seizures. She has herpes zoster virus lesions. PAST MEDICAL HISTORY: The patient has a past medical history of as described she came in with hyponatremia. She also has a past medical history of cardiac disease, hypertension, asthma, diabetes, gastrointestinal problems, neurological problems, dementia, Alzheimer's, and seizures. Please see past medical history in medical order. It seems like she has a history of hypothyroidism and hyperlipidemia. ALLERGIES: No known drug allergies. No antibiotic allergies. FAMILY HISTORY: Noncontributory. Negative for exposure to tuberculosis or cancer. SOCIAL HISTORY: Negative for smoking, alcohol, or drug abuse. MEDICATIONS: Upon reviewing the MAR, the patient is on the following medications. She is on Drisdol or ergocalciferol, Dilantin, Ativan, aspirin, calcitonin, Aricept, Feosol, Toprol, pantoprazole, VESIcare, Synthroid, Norris, Zovirax, Zyprexa, DuoNeb, heparin, Colace, Namenda, Dulcolax, Pravachol, Tylenol, MOM, and MiraLax. Please see medications in medical order and past medical history in medical order. PHYSICAL EXAMINATION: VITAL SIGNS: Temperature 97.3 degrees, pulse rate 71, respiratory rate 18, blood pressure 129/55, and saturation 97%. No significant fever. GENERAL: Alert, responsive, in no acute distress. HEAD AND NECK: Oral exam, no thrush. Eye exam, no icterus. Neck is supple. No JVD. No sinus tenderness. Normocephalic. No facial droop. No neck stiffness. LUNGS: Clear bilaterally. No rhonchi or rales. HEART: Regular. No gallop or murmur. ABDOMEN: Soft. Positive bowel sounds. SKIN: I have reviewed her right back area. There is certainly dermatomal distribution of herpes zoster virus vesicles and lesions/shingles. MUSCULOSKELETAL: No effusions or contractures. Lower extremities without varus and valgus. PERIPHERAL VASCULAR: No cyanosis or gangrene. RECTAL: Deferred. GENITOURINARY: No Camacho. LINES: Line sites are without phlebitis. NEUROLOGIC: Intact. Nonfocal. LABORATORY DATA: White count 8.2, hemoglobin 12.3, and platelet count 433,000. Creatinine is 0.6. LFTs are noted. Sodium 128 and creatinine 0.6. IMAGING STUDIES: There are no imaging studies. ASSESSMENT AND PLAN: 1. The patient has right back herpes zoster virus infection/shingles. The patient will be placed on acyclovir. She will need probably a 10-day course. Today is the day #2. I have discussed with pharmacy to adjust the dose for age-adjusted decreased immune function. The patient will be continued on acyclovir 800 mg, now she is on once a day, but possibly goes to q.12 h. based on pharmacy recommendations. Continue acyclovir day #2 out of 10 for right back herpes zoster virus/shingles infection that extended to the right side. 2. The patient has history of hypertension. Continue blood pressure control per Dr. Velarde. 3. Diabetes. Continue blood sugar control per Dr. Velarde. 4. Asthma 5. Cardiac disease. 6. Gastrointestinal disease. 7. Neurological problems. 8. Dementia. 9. Alzheimer's. 10. Seizure. 11. Hypothyroidism. 12. Hyperlipidemia. 13. Hyponatremia, treatment per Dr. Velarde. 14. MAR noted and notes reviewed. 15. Social history negative . 16. No known drug allergies. 17. Case discussed with RN. 18. The patient is on isolation for herpes zoster virus at this time. Thank you. I will follow. Agusto Orr M.D. DR: JAKE JOB#: [id number] CC:
[2016-07-13] MEDS ORDERED: Phenytoin 100mg cap ORAL SCH (23:00)
[2016-07-14] VITALS: BP 105/46
--- NOTE | 2016-07-14 03:36 | General Progress Note ---
Assessment/Plan Problem List: (1) Toxic metabolic encephalopathy ICD Codes: G92 - Toxic encephalopathy SNOMED: 151623385 (2) Hyponatremia ICD Codes: E87.1 - Hyponatremia SNOMED: 77094575 (3) Herpes zoster ICD Codes: B02.9 - Zoster without complications SNOMED: 6877495 (4) Generalized weakness ICD Codes: R53.1 - Weakness SNOMED: 09096766 Status: stable Assessment/Plan Hyponatremia likely hypovolemic type 2/2 dehydration. Improving w/ IVFs Appreciate renal rec's F/u urine studies Decr NS to 75mL/hr ID consulted, appreciate rec's Cont Acyclovir 800mg TID Cont all SNF meds COOKER SULFITE eval PT/OT DVT Prophylaxis: SCD, HSQ Code Status: Full Hospital Classification Declaration: Based on this initial evaluation, and depending on the patient's clinical course, I anticipate that this patient will require hospitalization for 1-2 days for hyponatremia, AMS and close respiratory /hemodynamic monitoring. Disposition: Once the patient is stable to leave the hospital, I anticipate the patient will likely be discharged to the following environment: back to SNF I spent 40 minutes on this patient's case, and 22 minutes were dedicated to counseling and/or care coordination. Discussed with patient/family, nursing staff, SW/CM, renal, ID regarding clinical status, treatment course, and disposition planning. Time of note may not reflect time of encounter. Subjective Date patient seen: Jul 13, 2016 Time patient seen: 16:00 ROS Limited/Unobtainable: No Constitutional: Reports: no symptoms HEENT: Reports: no symptoms Cardiovascular: Reports: no symptoms Respiratory: Reports: no symptoms Gastrointestinal/Abdominal: Reports: no symptoms Genitourinary: Reports: no symptoms Neurologic/Psychiatric: Reports: no symptoms Endocrine: Reports: no symptoms Hematologic/Lymphatic: Reports: no symptoms Allergies: Coded Allergies: NO KNOWN DRUG ALLERGIES (Unverified Allergy, Unknown, 07/29/14) All Systems: reviewed and negative except above Subjective Na improved to 128 Mental status improved--more awake, alert Objective Last 24 Hour Vital Signs Date Time Temp Pulse Resp B/P Pulse Ox O2 Delivery O2 Flow Rate FiO2 07/14/16 00:00 55 07/14/16 00:00 97.5 60 20 105/46 95 Room Air 07/13/16 20:13 97.9 07/13/16 20:00 97.9 60 21 118/54 95 Room Air 07/13/16 20:00 61 07/13/16 19:15 81 18 Room Air 07/13/16 16:00 97.9 60 21 119/57 95 Room Air 07/13/16 16:00 57 07/13/16 12:00 59 07/13/16 11:30 97.3 71 18 129/55 97 Room Air 07/13/16 10:47 66 134/57 07/13/16 08:00 76 07/13/16 07:53 97.0 66 18 134/57 96 Room Air 07/13/16 06:03 84 07/13/16 04:10 98.6 69 19 133/68 96 Room Air Intake and Output 07/13/16 07/14/16 19:00 07:00 Intake Total 1165 ml 460 ml Output Total 400 ml Balance 1165 ml 60 ml Intake Oral 550 ml IV Total 615 ml 460 ml Output Urine Total 400 ml # Voids 3 Laboratory Tests 07/13/16 08:14: Sodium Level 128L, Potassium Level 4.9, Chloride Level 88L, Carbon Dioxide Level 22, Anion Gap 18H, Blood Urea Nitrogen 9, Creatinine 0.6, Estimat Glomerular Filtration Rate , Glucose Level 118H, Calcium Level 10.0, Magnesium Level 2.2, Total Bilirubin 0.2, Aspartate Amino Transf (AST/SGOT) 33, Alanine Aminotransferase (ALT/SGPT) 29, Alkaline Phosphatase 146H, Total Protein 7.6, Albumin 4.3, Globulin 3.3, Albumin/Globulin Ratio 1.3 07/13/16 11:50: White Blood Count 8.2, Red Blood Count 4.58, Hemoglobin 12.3, Hematocrit 38.9, Mean Corpuscular Volume 85, Mean Corpuscular Hemoglobin 26.8L, Mean Corpuscular Hemoglobin Concent 31.6L, Red Cell Distribution Width 17.6H, Platelet Count 433 , Mean Platelet Volume 5.6L, Neutrophils (%) (Auto) 55.1, Lymphocytes (%) (Auto ) 28.1, Monocytes (%) (Auto) 14.7H, Eosinophils (%) (Auto) 1.3, Basophils (%) ( Auto) 0.9 07/13/16 16:50: Urine Color Pale yellow, Urine Appearance Clear, Urine pH 6.5, Urine Specific [place] 1.010, Urine Protein Negative, Urine Glucose (UA) Negative, Urine Ketones Negative, Urine Occult Blood Negative, Urine Nitrite Negative, Urine Bilirubin Negative, Urine Urobilinogen Normal, Urine Leukocyte Esterase 1+H, Urine RBC 0-2, Urine WBC 0, Urine Squamous Epithelial Cells None, Urine Bacteria None, Urine Osmolality [Pending], Urine Random Sodium 10 Height (Feet): 4 Height (Inches): 11.00 Weight (Pounds): 148 Objective General: alert, cooperative, no distress, appears stated age Head: normocephalic, without obvious abnormality, atraumatic Eyes: conjunctivae/corneas clear. PERRL, EOM's intact Throat: lips, mucosa, and tongue normal. MMM Neck: supple, symmetrical, trachea midline, and no JVD Lungs: clear to auscultation bilaterally Heart: regular rate and rhythm, S1, S2 normal, no murmur, click, rub or gallop Abdomen: soft, non-tender, non-distended, bowel sounds normal; no masses or organomegaly Extremities: extremities normal, atraumatic, no cyanosis or edema Pulses: 2+ and symmetric Skin: skin color, texture, turgor normal Herpes zoster lesions in R upper back Neurologic: grossly normal, no focal deficits Prachi Mejia M.D. Jul 14, 2016 03:36
[2016-07-14 04:00] VITALS: BP 130/62
[2016-07-14] MEDS: Norco 10mg/325mg tab ORAL PRN ×2 (05:08→10:23)
[2016-07-14 08:15] VITALS: BP 132/57
[2016-07-14] MEDS: Memantine 10mg tab ORAL SCH ×3 (09:00→19:38)
[2016-07-14 09:46] LABS: BASOPHILS % (AUTO) 1.6 % (0.0-2.0); EOSINOPHILS % (AUTO) 4.3 % (0.0-3.0); LYMPHOCYTES % (AUTO) 44.8 % (20.0-45.0); MEAN CORPUSCULAR HEMOGLOBIN 27.1 PG (27.0-31.0); MEAN CORPUSCULAR HGB CONC 31.6 G/DL (32.0-36.0); MEAN CORPUSCULAR VOLUME 86 FL (80-99); MEAN PLATELET VOLUME 4.7 FL (6.5-10.1); MONOCYTES % (AUTO) 8.4 % (1.0-10.0); NEUTROPHILS % (AUTO) 40.9 % (45.0-75.0); PLATELET COUNT 385 K/UL (150-450); RED BLOOD COUNT 4.52 M/UL (4.20-5.40); RED CELL DISTRIBUTION WIDTH 17.2 % (11.6-14.8); WHITE BLOOD COUNT 6.7 K/UL (4.8-10.8)
[2016-07-14 10:07] LABS: ALANINE AMINOTRANSFERASE 20 U/L (3-33); ALBUMIN/GLOBULIN RATIO 1.3 (1.0-2.7); ANION GAP 11 (5-15); ASPARTATE AMINO TRANSFERASE 18 U/L (5-40); CALCIUM 9.1 mg/dL (8.6-10.2); CARBON DIOXIDE 27 mEQ/L (20-30); CHLORIDE 94 mEQ/L (98-107); CHOLESTEROL 183 mg/dL (< 200); CHOLESTEROL/HDL RATIO 1.9 (3.3-4.4); CREATININE 0.5 mg/dL (0.5-0.9); CRP QUANT 0.4 mg/dL (< 0.5); HEMOLYSIS 3; LDL CHOLESTEROL (CALC.) 79 mg/dL (60-99); MAGNESIUM 1.8 mg/dL (1.7-2.5); PHOSPHORUS 2.9 mg/dL (2.5-4.8); POTASSIUM 4.3 mEQ/L (3.4-4.9); SODIUM 132 mEQ/L (135-145); TOTAL PROTEIN 6.2 g/dL (6.6-8.7); URIC ACID 1.3 mg/dL (3.0-7.5)
[2016-07-14 10:11] LABS: FERRITIN 73 ng/mL (13-150)
[2016-07-14] MEDS: Multivitamin w/Minerals tab ORAL SCH (10:14)
[2016-07-14] MEDS: Aspirin Baby 81mg ORAL SCH (10:15)
[2016-07-14] MEDS: Docusate 100mg tablet ORAL SCH ×4 (10:15→19:38)
[2016-07-14] MEDS: Metoprolol XL 100mg tab ORAL SCH (10:15)
[2016-07-14] MEDS: LORazepam 1mg tab ORAL SCH ×4 (10:15→19:38)
[2016-07-14] MEDS: Solifenacin 10mg tab ORAL SCH (10:15)
[2016-07-14] MEDS: Heparin 5000 units/ml inj SUBQ SCH ×2 (10:21→22:16)
[2016-07-14 10:35] LABS: HEMOGLOBIN A1C 5.7 % (< 6.0)
[2016-07-14 10:41] LABS: HEMOLYSIS 7; IRON 165 ug/dL (37-145); TOTAL IRON BINDING CAPACITY 289 ug/dL (250-400)
[2016-07-14 11:41] VITALS: BP 138/58
--- NOTE | 2016-07-14 12:57 | General Progress Note ---
Assessment/Plan Status: stable Status Narrative Na 132- Jing 10 Assessment/Plan status: HypoNatremia, Likely depletional,doubt SIADH Right back Herpes Zoster / Shingles Dementia High Cholestrol DM HTN Plan: 3% Saline 250 cc monitor lytes OK to Dc from renal stand Subjective ROS Limited/Unobtainable: No Constitutional: Reports: malaise Allergies: Coded Allergies: NO KNOWN DRUG ALLERGIES (Unverified Allergy, Unknown, 07/29/14) Objective Last 24 Hour Vital Signs Date Time Temp Pulse Resp B/P Pulse Ox O2 Delivery O2 Flow Rate FiO2 07/14/16 11:41 96.9 60 18 138/58 97 Room Air 07/14/16 10:15 56 132/57 07/14/16 08:15 96.6 56 18 132/57 93 Room Air 07/14/16 08:00 57 07/14/16 05:11 62 07/14/16 04:00 97.3 56 20 130/62 94 Room Air 07/14/16 00:00 55 07/14/16 00:00 97.5 60 20 105/46 95 Room Air 07/13/16 20:13 97.9 07/13/16 20:00 97.9 60 21 118/54 95 Room Air 07/13/16 20:00 61 07/13/16 19:15 81 18 Room Air 07/13/16 16:00 97.9 60 21 119/57 95 Room Air 07/13/16 16:00 57 Intake and Output 07/13/16 07/14/16 19:00 07:00 Intake Total 1165 ml 960 ml Output Total 780 ml Balance 1165 ml 180 ml Intake Oral 550 ml 200 ml IV Total 615 ml 760 ml Output Urine Total 780 ml # Voids 3 Laboratory Tests 07/13/16 16:50: Urine Color Pale yellow, Urine Appearance Clear, Urine pH 6.5, Urine Specific [place] 1.010, Urine Protein Negative, Urine Glucose (UA) Negative, Urine Ketones Negative, Urine Occult Blood Negative, Urine Nitrite Negative, Urine Bilirubin Negative, Urine Urobilinogen Normal, Urine Leukocyte Esterase 1+H, Urine RBC 0-2, Urine WBC 0, Urine Squamous Epithelial Cells None, Urine Bacteria None, Urine Osmolality [Pending], Urine Random Sodium 10 07/14/16 08:55: White Blood Count 6.7, Red Blood Count 4.52, Hemoglobin 12.2, Hematocrit 38.7, Mean Corpuscular Volume 86, Mean Corpuscular Hemoglobin 27.1, Mean Corpuscular Hemoglobin Concent 31.6L, Red Cell Distribution Width 17.2H, Platelet Count 385 , Mean Platelet Volume 4.7L, Neutrophils (%) (Auto) 40.9L, Lymphocytes (%) (Auto ) 44.8, Monocytes (%) (Auto) 8.4, Eosinophils (%) (Auto) 4.3H, Basophils (%) ( Auto) 1.6, Sodium Level 132L, Potassium Level 4.3, Chloride Level 94L, Carbon Dioxide Level 27, Anion Gap 11, Blood Urea Nitrogen 10, Creatinine 0.5, Estimat Glomerular Filtration Rate , Glucose Level 97, Hemoglobin A1c 5.7, Plasma/Serum Osmolality [Pending], Uric Acid 1.3L, Calcium Level 9.1, Phosphorus Level 2.9, Magnesium Level 1.8, Iron Level 165H, Total Iron Binding Capacity 289, Percent Iron Saturation 57H, Unsaturated Iron Binding 124, Ferritin 73, Total Bilirubin < 0.2, Gamma Glutamyl Transpeptidase 242H, Aspartate Amino Transf (AST/SGOT) 18 , Alanine Aminotransferase (ALT/SGPT) 20, Alkaline Phosphatase 110H, Total Creatine Kinase 16L, C-Reactive Protein, Quantitative 0.4, Pro-B-Type Natriuretic Peptide 340, Total Protein 6.2L, Albumin 3.6, Globulin 2.6, Albumin/ Globulin Ratio 1.3, Triglycerides Level 37, Cholesterol Level 183, LDL Cholesterol 79, HDL Cholesterol 97H, Cholesterol/HDL Ratio 1.9L, Vitamin B12 Level 1029H, Folate [Pending], Thyroid Stimulating Hormone (TSH) 5.720H, Free Thyroxine 0.88 Height (Feet): 4 Height (Inches): 11.00 Weight (Pounds): 148 General Appearance: no apparent distress Objective no signs of CHF ALYSON FLANAGAN Jul 14, 2016 12:57
[2016-07-14] MEDS ORDERED: DEPAKOTE500 MG ORAL (13:02)
[2016-07-14] MEDS ORDERED: NaCl 3% 500ml 250 ML IV ONE (14:00)
--- NOTE | 2016-07-14 15:29 | Infectious Diseases Prog Note ---
Assessment/Plan Assessment/Plan ASSESSMENT AND PLAN: 1. The patient has right back herpes zoster virus infection/shingles - clinically lesions are drying - acyclovir x 7 days -d/w Dr. Velarde - no evidence of cellulitis 2. The patient has history of hypertension. Continue blood pressure control per Dr. Velarde. 3. Diabetes. Continue blood sugar control per Dr. Velarde. 4. Asthma 5. Cardiac disease. 6. Gastrointestinal disease. 7. Neurological problems. 8. Dementia. 9. Alzheimer's. 10. Seizure. 11. Hypothyroidism. 12. Hyperlipidemia. 13. Hyponatremia, treatment per Dr. Velarde. 14. MAR noted and notes reviewed. 15. Social history negative . 16. No known drug allergies. 17. Case discussed with RN. 18. The patient is on contact isolation for herpes zoster virus at this time. 19. mrsa isolation and colonization Subjective Constitutional: Reports: fatigue, Denies: fever HEENT: Denies: congestion Respiratory: Denies: shortness of breath Cardiovascular: Denies: chest pain Gastrointestinal/Abdominal: Denies: diarrhea, nausea, vomiting Genitourinary: Reports: other - no cota Neurologic: Denies: headache Psychiatric: Denies: depression Skin: Denies: rash Hematologic: Denies: bleeding Musculoskeletal: Denies: pain Allergies: Coded Allergies: NO KNOWN DRUG ALLERGIES (Unverified Allergy, Unknown, 07/29/14) Objective Vital Signs Last 24 Hour Vital Signs Date Time Temp Pulse Resp B/P Pulse Ox O2 Delivery O2 Flow Rate FiO2 07/14/16 11:41 96.9 60 18 138/58 97 Room Air 07/14/16 10:15 56 132/57 07/14/16 08:15 96.6 56 18 132/57 93 Room Air 07/14/16 08:00 57 07/14/16 05:11 62 07/14/16 04:00 97.3 56 20 130/62 94 Room Air 07/14/16 00:00 55 07/14/16 00:00 97.5 60 20 105/46 95 Room Air 07/13/16 20:13 97.9 07/13/16 20:00 97.9 60 21 118/54 95 Room Air 07/13/16 20:00 61 07/13/16 19:15 81 18 Room Air 07/13/16 16:00 97.9 60 21 119/57 95 Room Air 07/13/16 16:00 57 Height (Feet): 4 Height (Inches): 11.00 Weight (Pounds): 148 General Appearance: no acute distress HEENT: normocephalic, atraumatic, anicteric, mucous membranes moist, PERRL, EOMI, pharynx normal, supple, no JVD Respiratory/Chest: lungs clear, normal breath sounds, no respiratory distress, no accessory muscle use Cardiovascular: normal rate, regular rhythm, no gallop/murmur, no JVD Abdomen: normal bowel sounds, soft, non tender, no organomegaly, non distended Genitourinary: other - no cota Extremities: no cyanosis Skin: no rash, other - hsv/shingles lesions are dry Neurologic/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: 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 grossly normal, alert, responsive Lymphatic: no neck adenopathy Musculoskeletal: no effusion Objective none Microbiology Date/Time Source Procedure Growth Status 07/12/16 19:00 Nasal Nares MRSA Culture - Final Staphylococcus Aureus - Mrsa Complete Laboratory Tests Test 07/13/16 16:50 07/14/16 08:55 Urine Color Pale yellow Urine Appearance Clear Urine pH 6.5 (4.5-8.0) Urine Specific [place] 1.010 (1.005-1.035) Urine Protein Negative (NEGATIVE) Urine Glucose (UA) Negative (NEGATIVE) Urine Ketones Negative (NEGATIVE) Urine Occult Blood Negative (NEGATIVE) Urine Nitrite Negative (NEGATIVE) Urine Bilirubin Negative (NEGATIVE) Urine Urobilinogen Normal MG/DL (0.0-1.0) Urine Leukocyte Esterase 1+ (NEGATIVE) H Urine RBC 0-2 /HPF (0 - 2) Urine WBC 0 /HPF (0 - 2) Urine Squamous Epithelial Cells None /LPF (NONE/OCC) Urine Bacteria None /HPF (NONE) Urine Osmolality Pending Urine Random Sodium 10 mmol/L White Blood Count 6.7 K/UL (4.8-10.8) Red Blood Count 4.52 M/UL (4.20-5.40) Hemoglobin 12.2 G/DL (12.0-16.0) Hematocrit 38.7 % (37.0-47.0) Mean Corpuscular Volume 86 FL (80-99) Mean Corpuscular Hemoglobin 27.1 PG (27.0-31.0) Mean Corpuscular Hemoglobin Concent 31.6 G/DL (32.0-36.0) L Red Cell Distribution Width 17.2 % (11.6-14.8) H Platelet Count 385 K/UL (150-450) Mean Platelet Volume 4.7 FL (6.5-10.1) L Neutrophils (%) (Auto) 40.9 % (45.0-75.0) L Lymphocytes (%) (Auto) 44.8 % (20.0-45.0) Monocytes (%) (Auto) 8.4 % (1.0-10.0) Eosinophils (%) (Auto) 4.3 % (0.0-3.0) H Basophils (%) (Auto) 1.6 % (0.0-2.0) Sodium Level 132 mEQ/L (135-145) L Potassium Level 4.3 mEQ/L (3.4-4.9) Chloride Level 94 mEQ/L (98-107) L Carbon Dioxide Level 27 mEQ/L (20-30) Anion Gap 11 (5-15) Blood Urea Nitrogen 10 mg/dL (7-23) Creatinine 0.5 mg/dL (0.5-0.9) Estimat Glomerular Filtration Rate mL/min (>60) Glucose Level 97 mg/dL (74-106) Hemoglobin A1c 5.7 % (< 6.0) Plasma/Serum Osmolality Pending Uric Acid 1.3 mg/dL (3.0-7.5) L Calcium Level 9.1 mg/dL (8.6-10.2) Phosphorus Level 2.9 mg/dL (2.5-4.8) Magnesium Level 1.8 mg/dL (1.7-2.5) Iron Level 165 ug/dL (37-145) H Total Iron Binding Capacity 289 ug/dL (250-400) Percent Iron Saturation 57 % (15-50) H Unsaturated Iron Binding 124 ug/dL (112-346) Ferritin 73 ng/mL (13-150) Total Bilirubin < 0.2 mg/dL (0.0-1.2) Gamma Glutamyl Transpeptidase 242 U/L (5-36) H Aspartate Amino Transf (AST/SGOT) 18 U/L (5-40) Alanine Aminotransferase (ALT/SGPT) 20 U/L (3-33) Alkaline Phosphatase 110 U/L (35-104) H Total Creatine Kinase 16 U/L (26-140) L C-Reactive Protein, Quantitative 0.4 mg/dL (< 0.5) Pro-B-Type Natriuretic Peptide 340 pg/mL (0-450) Total Protein 6.2 g/dL (6.6-8.7) L Albumin 3.6 g/dL (3.5-5.2) Globulin 2.6 g/dL Albumin/Globulin Ratio 1.3 (1.0-2.7) Triglycerides Level 37 mg/dL (< 150) Cholesterol Level 183 mg/dL (< 200) LDL Cholesterol 79 mg/dL (60-99) HDL Cholesterol 97 mg/dL (> 60) H Cholesterol/HDL Ratio 1.9 (3.3-4.4) L Vitamin B12 Level 1029 pg/mL (211-946) H Folate Pending Thyroid Stimulating Hormone (TSH) 5.720 uIU/mL (0.300-4.500) Free Thyroxine 0.88 ng/dL (0.86-1.85) Current Medications Medications (Trade) Dose Ordered Sig/Jacque Route PRN Reason Start Time Stop Time Status Last Admin Dose Admin Acetaminophen (Tylenol) 650 mg Q4H PRN ORAL Mild Pain (Pain Scale 1-3) 07/12/16 20:00 08/11/16 19:59 07/12/16 21:04 Acetaminophen/ Hydrocodone Bitart ([place] 10/325) 1 ea Q4H PRN ORAL Moderate pain 07/13/16 02:00 07/20/16 01:59 07/14/16 10:23 Acyclovir (Zovirax) 800 mg Q8HR ORAL 07/13/16 14:00 08/12/16 13:59 07/14/16 15:17 Albuterol/ Ipratropium (DuoNeb 0.5-3(2.5)mg/3ml) 3 ml Q6HR PRN HHN shortness of breath 07/12/16 22:00 07/17/16 21:59 Aspirin (ASA) 81 mg DAILY ORAL 07/13/16 09:00 08/12/16 08:59 07/14/16 10:15 Bisacodyl (Dulcolax) 10 mg HSPRN PRN RECTAL Constipation THIRD LINE 07/12/16 20:39 08/11/16 19:59 Calcitonin [place] (Miacalcin) 1 sprays DAILY NASAL 07/13/16 09:00 08/12/16 08:59 07/14/16 10:23 Dextrose (Dextrose 50%) STAT PRN IV Hypoglycemia 07/12/16 20:00 08/11/16 19:59 Divalproex Sodium (Depakote) 500 mg EVERY 12 HOURS ORAL 07/14/16 21:00 08/13/16 20:59 Docusate Sodium (Colace) 100 mg TID ORAL 07/13/16 18:00 08/12/16 17:59 07/14/16 15:17 Donepezil HCl 10 mg 10 mg QHS ORAL 07/14/16 21:00 08/13/16 20:59 Ergocalciferol (Drisdol) 50,000 intlu QWEEK ORAL 07/18/16 09:00 08/17/16 08:59 Heparin Sodium (Porcine) (Heparin 5000 units/ml) 5,000 units EVERY 12 HOURS SUBQ 07/12/16 21:00 08/11/16 20:59 07/14/16 10:21 Levothyroxine Sodium (Synthroid) 50 mcg ACBREAKFAST ORAL 07/13/16 06:30 08/12/16 06:29 07/14/16 06:41 Lidocaine (Lidoderm 5% PATCH) 1 patch DAILY@0630 TDERMAL 07/13/16 06:30 08/12/16 06:29 07/14/16 06:42 Lorazepam (Ativan) 1 mg THREE TIMES A DAY ORAL 07/13/16 21:00 07/20/16 20:59 07/14/16 15:17 Lorazepam (Ativan) 1 mg TIDPRN PRN ORAL for anxiety 07/12/16 22:00 07/19/16 21:59 Magnesium Hydroxide (Mom) 30 ml HSPRN PRN ORAL Constipation SECOND LINE 07/12/16 20:00 08/11/16 19:59 Memantine (Namenda) 10 mg TWICE A DAY ORAL 07/12/16 21:00 08/11/16 20:59 07/14/16 09:00 Metoprolol Succinate (Toprol XL) 200 mg DAILY ORAL 07/13/16 09:00 08/12/16 08:59 07/14/16 10:15 Multivitamins Therapeutic (Therapeutic Multivitamin) 1 ea DAILY ORAL 07/13/16 09:00 08/12/16 08:59 07/14/16 10:14 Olanzapine (ZyPREXA) 5 mg QHS ORAL 07/12/16 22:30 08/11/16 22:29 07/13/16 22:41 Ondansetron HCl (Zofran) 4 mg Q6H PRN IVP Nausea & Vomiting 07/12/16 20:00 08/11/16 19:59 Pantoprazole (Protonix) 40 mg DAILY ORAL 07/13/16 09:00 08/12/16 08:59 07/14/16 10:15 Polyethylene Glycol (Miralax) 17 gm HSPRN PRN ORAL Constipation FIRST LINE 07/12/16 20:00 08/11/16 19:59 Pravastatin Sodium (Pravachol) 20 mg BEDTIME ORAL 07/12/16 21:00 08/11/16 20:59 07/13/16 22:42 Sodium Chloride (Hypertonic Saline) 250 ml @ 30 mls/hr ONCE ONCE IV 07/14/16 14:00 07/14/16 22:19 07/14/16 14:58 Solifenacin (Vesicare) 10 mg DAILY ORAL 07/13/16 09:00 08/12/16 08:59 07/14/16 10:15 TIERA PRADO 17, 2017 15:29
[2016-07-14 16:00] VITALS: BP 132/56
[2016-07-14] MEDS ORDERED: ACYCLOVIR800 MG ORAL (19:36)
--- NOTE | 2016-07-14 19:37 | Discharge Summary ---
Discharge Summary Hospital Course Date of Admission Jul 12, 2016 at 12:57 Date of Discharge 07/14/16 Admitting Diagnosis hyponatremia HPI Erica Gee is a 85 year old female who was admitted on Jul 12, 2016 at 12:57 for Hyponatremia Discharge Condition Upon Discharge: stable Discharge Disposition Patient was discharged to SNF/Subacute Facility(03) Discharge Diagnoses: Prachi Mejia M.D. Jul 14, 2016 19:37
[2016-07-14 20:00] VITALS: BP 13/58
[2016-07-14] MEDS: Donepezil 10mg tab ORAL SCH (22:17)
[2016-07-14] MEDS: Depakote 500mg tab ORAL SCH (22:17)
[2016-07-15] VITALS: BP 134/58
[2016-07-15 04:00] VITALS: BP 111/56
[2016-07-15 08:00] VITALS: BP 122/56
[2016-07-15] MEDS: Aspirin Baby 81mg ORAL SCH (09:27)
[2016-07-15] MEDS: Solifenacin 10mg tab ORAL SCH (09:28)
[2016-07-15] MEDS: Depakote 500mg tab ORAL SCH ×2 (09:28→22:50)
[2016-07-15] MEDS: Memantine 10mg tab ORAL SCH ×2 (09:28→18:12)
[2016-07-15] MEDS: Docusate 100mg tablet ORAL SCH ×3 (09:28→18:12)
[2016-07-15] MEDS: LORazepam 1mg tab ORAL SCH ×3 (09:28→18:00)
[2016-07-15] MEDS: Multivitamin w/Minerals tab ORAL SCH (09:28)
[2016-07-15] MEDS: Metoprolol XL 100mg tab ORAL SCH (09:28)
[2016-07-15] MEDS: Heparin 5000 units/ml inj SUBQ SCH ×2 (09:35→22:53)
--- NOTE | 2016-07-15 09:53 | General Progress Note ---
Assessment/Plan Status: stable Assessment/Plan status: HypoNatremia, Likely depletional,doubt SIADH Right back Herpes Zoster / Shingles Dementia High Cholestrol DM HTN Plan: had 3% Saline 250 cc 07/14 monitor lytes OK to Dc from renal stand Subjective ROS Limited/Unobtainable: No Allergies: Coded Allergies: NO KNOWN DRUG ALLERGIES (Unverified Allergy, Unknown, 07/29/14) Objective Last 24 Hour Vital Signs Date Time Temp Pulse Resp B/P Pulse Ox O2 Delivery O2 Flow Rate FiO2 07/15/16 09:28 69 122/56 07/15/16 08:00 97.9 69 18 122/56 95 Room Air 07/15/16 04:00 98.2 71 16 111/56 90 Room Air 07/15/16 00:00 97.0 70 16 134/58 95 Room Air 07/14/16 20:00 97.0 60 18 13/58 97 Room Air 07/14/16 16:00 97.3 58 18 132/56 96 Room Air 07/14/16 11:41 96.9 60 18 138/58 97 Room Air 07/14/16 10:15 56 132/57 Intake and Output 07/14/16 07/15/16 19:00 07:00 Intake Total 600 ml 480 ml Output Total 1550 ml Balance -950 ml 480 ml Intake Oral 480 ml 480 ml IV Total 120 ml Output Urine Total 1550 ml # Voids 2 Height (Feet): 4 Height (Inches): 11.00 Weight (Pounds): 148 General Appearance: no apparent distress Objective no signs of CHF ALYSON FLANAGAN 18, 2017 09:53
[2016-07-15 12:20] VITALS: BP 104/57
--- NOTE | 2016-07-15 13:11 | Pulmonology Progress Note ---
Subjective Allergies: Coded Allergies: NO KNOWN DRUG ALLERGIES (Unverified Allergy, Unknown, 07/29/14) Objective Last 24 Hour Vital Signs Date Time Temp Pulse Resp B/P Pulse Ox O2 Delivery O2 Flow Rate FiO2 07/15/16 12:20 97.1 64 18 104/57 100 Room Air 07/15/16 09:28 69 122/56 07/15/16 08:00 97.9 69 18 122/56 95 Room Air 07/15/16 04:00 98.2 71 16 111/56 90 Room Air 07/15/16 00:00 97.0 70 16 134/58 95 Room Air 07/14/16 20:00 97.0 60 18 13/58 97 Room Air 07/14/16 16:00 97.3 58 18 132/56 96 Room Air Intake and Output 07/14/16 07/15/16 19:00 07:00 Intake Total 600 ml 480 ml Output Total 1550 ml Balance -950 ml 480 ml Intake Oral 480 ml 480 ml IV Total 120 ml Output Urine Total 1550 ml # Voids 2 Microbiology Date/Time Source Procedure Growth Status 07/12/16 19:00 Nasal Nares MRSA Culture - Final Staphylococcus Aureus - Mrsa Complete 07/12/16 19:00 Rectum VRE Culture - Final NO VANCOMYCIN RESISTANT ENTEROCOCCUS ... Complete Current Medications Medications (Trade) Dose Ordered Sig/Jacque Route PRN Reason Start Time Stop Time Status Last Admin Dose Admin Acetaminophen (Tylenol) 650 mg Q4H PRN ORAL Mild Pain (Pain Scale 1-3) 07/12/16 20:00 08/11/16 19:59 07/12/16 21:04 Acetaminophen/ Hydrocodone Bitart ([place] 10/325) 1 ea Q4H PRN ORAL Moderate pain 07/13/16 02:00 07/20/16 01:59 07/14/16 10:23 Acyclovir (Zovirax) 800 mg Q8HR ORAL 07/13/16 14:00 08/12/16 13:59 07/15/16 06:26 Albuterol/ Ipratropium (DuoNeb 0.5-3(2.5)mg/3ml) 3 ml Q6HR PRN HHN shortness of breath 07/12/16 22:00 07/17/16 21:59 Aspirin (ASA) 81 mg DAILY ORAL 07/13/16 09:00 08/12/16 08:59 07/15/16 09:27 Bisacodyl (Dulcolax) 10 mg HSPRN PRN RECTAL Constipation THIRD LINE 07/12/16 20:39 08/11/16 19:59 Calcitonin [place] (Miacalcin) 1 sprays DAILY NASAL 07/13/16 09:00 08/12/16 08:59 07/15/16 09:27 Dextrose (Dextrose 50%) STAT PRN IV Hypoglycemia 07/12/16 20:00 08/11/16 19:59 Divalproex Sodium (Depakote) 500 mg EVERY 12 HOURS ORAL 07/14/16 21:00 08/13/16 20:59 07/15/16 09:28 Docusate Sodium (Colace) 100 mg TID ORAL 07/13/16 18:00 08/12/16 17:59 07/15/16 09:28 Donepezil HCl (Aricept) 10 mg QHS ORAL 07/14/16 21:00 08/13/16 20:59 07/14/16 22:17 Ergocalciferol (Drisdol) 50,000 intlu QWEEK ORAL 07/18/16 09:00 08/17/16 08:59 Heparin Sodium (Porcine) (Heparin 5000 units/ml) 5,000 units EVERY 12 HOURS SUBQ 07/12/16 21:00 08/11/16 20:59 07/15/16 09:35 Levothyroxine Sodium (Synthroid) 50 mcg ACBREAKFAST ORAL 07/13/16 06:30 08/12/16 06:29 07/15/16 06:26 Lidocaine (Lidoderm 5% PATCH) 1 patch DAILY@0630 TDERMAL 07/13/16 06:30 08/12/16 06:29 07/15/16 06:27 Lorazepam (Ativan) 1 mg THREE TIMES A DAY ORAL 07/13/16 21:00 07/20/16 20:59 07/15/16 09:28 Lorazepam (Ativan) 1 mg TIDPRN PRN ORAL for anxiety 07/12/16 22:00 07/19/16 21:59 Magnesium Hydroxide (Mom) 30 ml HSPRN PRN ORAL Constipation SECOND LINE 07/12/16 20:00 08/11/16 19:59 Memantine (Namenda) 10 mg TWICE A DAY ORAL 07/12/16 21:00 08/11/16 20:59 07/15/16 09:28 Metoprolol Succinate (Toprol XL) 200 mg DAILY ORAL 07/13/16 09:00 08/12/16 08:59 07/15/16 09:28 Multivitamins Therapeutic (Therapeutic Multivitamin) 1 ea DAILY ORAL 07/13/16 09:00 08/12/16 08:59 07/15/16 09:28 Olanzapine (ZyPREXA) 5 mg QHS ORAL 07/12/16 22:30 08/11/16 22:29 07/14/16 22:17 Ondansetron HCl (Zofran) 4 mg Q6H PRN IVP Nausea & Vomiting 07/12/16 20:00 08/11/16 19:59 Pantoprazole (Protonix) 40 mg DAILY ORAL 07/13/16 09:00 08/12/16 08:59 07/15/16 09:28 Polyethylene Glycol (Miralax) 17 gm HSPRN PRN ORAL Constipation FIRST LINE 07/12/16 20:00 08/11/16 19:59 Pravastatin Sodium (Pravachol) 20 mg BEDTIME ORAL 07/12/16 21:00 08/11/16 20:59 07/14/16 22:17 Solifenacin (Vesicare) 10 mg DAILY ORAL 07/13/16 09:00 08/12/16 08:59 07/15/16 09:28 Esther Mahajan NP (Vanchtein) Jul 15, 2016 13:11
[2016-07-15 16:00] VITALS: BP 106/74
[2016-07-15 20:00] VITALS: BP 104/68
--- NOTE | 2016-07-15 22:27 | General Progress Note ---
Assessment/Plan Problem List: (1) Altered level of consciousness ICD Codes: R40.4 - Transient alteration of awareness SNOMED: 0782759 (2) Encephalopathy ICD Codes: G93.40 - Encephalopathy, unspecified SNOMED: 86510473 (3) Herpes zoster ICD Codes: B02.9 - Zoster without complications SNOMED: 2588295 (4) Toxic metabolic encephalopathy ICD Codes: G92 - Toxic encephalopathy SNOMED: 614286794 (5) Dementia ICD Codes: F03.90 - Dementia SNOMED: 81074409 (6) Hyponatremia ICD Codes: E87.1 - Hyponatremia SNOMED: 26137522 (7) Diabetes mellitus ICD Codes: E11.9 - Diabetes mellitus SNOMED: 12878875 Status: stable Assessment/Plan Hyponatremia likely hypovolemic type 2/2 dehydration. Improving w/ IVFs Appreciate renal rec's F/u urine studies ID consulted, appreciate rec's Cont Acyclovir 800mg TID Cont all SNF meds [employer] eval PT/OT DC Planning DVT Prophylaxis: SCD, HSQ Code Status: Full Hospital Classification Declaration: Based on this initial evaluation, and depending on the patient's clinical course, I anticipate that this patient will require hospitalization for 1-1 days for hyponatremia, AMS and close respiratory /hemodynamic monitoring. Disposition: Once the patient is stable to leave the hospital, I anticipate the patient will likely be discharged to the following environment: back to SNF I spent 40 minutes on this patient's case, and 24 minutes were dedicated to counseling and/or care coordination. Discussed with patient/family, nursing staff, SW/CM, renal, ID regarding clinical status, treatment course, and disposition planning. Time of note may not reflect time of encounter. Subjective Date patient seen: Jul 15, 2016 ROS Limited/Unobtainable: Yes Allergies: Coded Allergies: NO KNOWN DRUG ALLERGIES (Unverified Allergy, Unknown, 07/29/14) Subjective no acute events afebrile and hds anticipate dc in am Objective Last 24 Hour Vital Signs Date Time Temp Pulse Resp B/P Pulse Ox O2 Delivery O2 Flow Rate FiO2 07/15/16 20:00 97.0 78 18 104/68 98 Room Air 07/15/16 16:00 97.0 79 18 106/74 98 Room Air 07/15/16 12:20 97.1 64 18 104/57 100 Room Air 07/15/16 09:28 69 122/56 07/15/16 08:00 97.9 69 18 122/56 95 Room Air 07/15/16 04:00 98.2 71 16 111/56 90 Room Air 07/15/16 00:00 97.0 70 16 134/58 95 Room Air Intake and Output 07/14/16 07/15/16 19:00 07:00 Intake Total 600 ml 480 ml Output Total 1550 ml Balance -950 ml 480 ml Intake Oral 480 ml 480 ml IV Total 120 ml Output Urine Total 1550 ml # Voids 2 Height (Feet): 4 Height (Inches): 11.00 Weight (Pounds): 148 Objective General: alert, cooperative, no distress, appears stated age Head: normocephalic, without obvious abnormality, atraumatic Eyes: conjunctivae/corneas clear. PERRL, EOM's intact Throat: lips, mucosa, and tongue normal. MMM Neck: supple, symmetrical, trachea midline, and no JVD Lungs: clear to auscultation bilaterally Heart: regular rate and rhythm, S1, S2 normal, no murmur, click, rub or gallop Abdomen: soft, non-tender, non-distended, bowel sounds normal; no masses or organomegaly Extremities: extremities normal, atraumatic, no cyanosis or edema Pulses: 2+ and symmetric Skin: skin color, texture, turgor normal Herpes zoster lesions in R upper back Neurologic: grossly normal, no focal deficits Yonatan Hood MD Jul 15, 2016 22:27
[2016-07-15] MEDS: Donepezil 10mg tab ORAL SCH (22:46)
[2016-07-16] VITALS: BP 129/56
[2016-07-16 04:00] VITALS: BP 131/54
[2016-07-16 08:31] VITALS: BP 130/55
[2016-07-16] MEDS: Depakote 500mg tab ORAL SCH ×2 (10:19→22:22)
[2016-07-16] MEDS: Solifenacin 10mg tab ORAL SCH (10:19)
[2016-07-16] MEDS: LORazepam 1mg tab ORAL SCH ×3 (10:19→17:51)
[2016-07-16] MEDS: Memantine 10mg tab ORAL SCH ×2 (10:19→17:51)
[2016-07-16] MEDS: Multivitamin w/Minerals tab ORAL SCH (10:19)
[2016-07-16] MEDS: Aspirin Baby 81mg ORAL SCH (10:20)
[2016-07-16] MEDS: Metoprolol XL 100mg tab ORAL SCH (10:20)
[2016-07-16] MEDS: Docusate 100mg tablet ORAL SCH ×4 (10:20→17:51)
[2016-07-16] MEDS: Heparin 5000 units/ml inj SUBQ SCH ×2 (10:27→22:24)
[2016-07-16 12:02] VITALS: BP 118/47
--- NOTE | 2016-07-16 13:05 | General Progress Note ---
Assessment/Plan Status: stable Assessment/Plan status: HypoNatremia, Likely depletional,doubt SIADH Right back Herpes Zoster / Shingles Dementia High Cholestrol DM HTN Plan: no labs today had 3% Saline 250 cc 07/14 monitor narayan OK to Dc from renal stand Subjective ROS Limited/Unobtainable: No Constitutional: Reports: malaise Allergies: Coded Allergies: NO KNOWN DRUG ALLERGIES (Unverified Allergy, Unknown, 07/29/14) Objective Last 24 Hour Vital Signs Date Time Temp Pulse Resp B/P Pulse Ox O2 Delivery O2 Flow Rate FiO2 07/16/16 12:02 97.3 61 18 118/47 94 Room Air 07/16/16 10:20 58 130/55 07/16/16 08:31 97.3 58 18 130/55 93 Room Air 07/16/16 04:00 97.7 56 14 131/54 93 Room Air 07/16/16 00:00 97.0 55 14 129/56 94 Room Air 07/15/16 20:00 97.0 78 18 104/68 98 Room Air 07/15/16 16:00 97.0 79 18 106/74 98 Room Air Intake and Output 07/15/16 07/16/16 19:00 07:00 Intake Total 600 ml 360 ml Balance 600 ml 360 ml Intake Oral 600 ml 360 ml # Voids 3 3 Height (Feet): 4 Height (Inches): 11.00 Weight (Pounds): 148 General Appearance: no apparent distress Objective no signs of CHF ALYSON FLANAGAN Jul 16, 2016 13:05
--- NOTE | 2016-07-16 14:17 | Infectious Diseases Prog Note ---
Assessment/Plan Assessment/Plan ASSESSMENT AND PLAN: 1. The patient has right back herpes zoster virus infection/shingles - clinically lesions are drying/improving - acyclovir x 5 days - no evidence of cellulitis 2. The patient has history of hypertension. Continue blood pressure control per Dr. Velarde. 3. Diabetes. Continue blood sugar control per Dr. Velarde. 4. Asthma 5. Cardiac disease. 6. Gastrointestinal disease. 7. Neurological problems. 8. Dementia. 9. Alzheimer's. 10. Seizure. 11. Hypothyroidism. 12. Hyperlipidemia. 13. Hyponatremia, treatment per Dr. Velarde. 14. MAR noted and notes reviewed. 15. Social history negative . 16. No known drug allergies. 17. Case discussed with RN. 18. The patient is on contact isolation for herpes zoster virus at this time. 19. mrsa isolation and colonization Subjective Constitutional: Denies: fever HEENT: Denies: congestion Cardiovascular: Denies: chest pain Gastrointestinal/Abdominal: Denies: nausea, vomiting Genitourinary: Reports: other - no cota Neurologic: Denies: headache Psychiatric: Denies: depression Skin: Reports: other - + shingles rash on right back Hematologic: Denies: bleeding Musculoskeletal: Denies: pain Allergies: Coded Allergies: NO KNOWN DRUG ALLERGIES (Unverified Allergy, Unknown, 07/29/14) Objective Vital Signs Last 24 Hour Vital Signs Date Time Temp Pulse Resp B/P Pulse Ox O2 Delivery O2 Flow Rate FiO2 07/16/16 12:02 97.3 61 18 118/47 94 Room Air 07/16/16 10:20 58 130/55 07/16/16 08:31 97.3 58 18 130/55 93 Room Air 07/16/16 04:00 97.7 56 14 131/54 93 Room Air 07/16/16 00:00 97.0 55 14 129/56 94 Room Air 07/15/16 20:00 97.0 78 18 104/68 98 Room Air 07/15/16 16:00 97.0 79 18 106/74 98 Room Air Height (Feet): 4 Height (Inches): 11.00 Weight (Pounds): 148 General Appearance: no acute distress HEENT: normocephalic, atraumatic, anicteric, mucous membranes moist, PERRL, EOMI, pharynx normal, supple, no JVD Respiratory/Chest: lungs clear, normal breath sounds, no respiratory distress, no accessory muscle use Cardiovascular: normal rate, regular rhythm, no gallop/murmur, no JVD Abdomen: normal bowel sounds, soft, non tender, no organomegaly, non distended Genitourinary: other - no cota Extremities: no clubbing Skin: lesions - right back hzv/shingles lesions drying 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 Complete Labs Test 07/13/16 16:50 07/14/16 08:55 Urine Color Pale yellow Urine Appearance Clear Urine pH 6.5 (4.5-8.0) Urine Specific [place] 1.010 (1.005-1.035) Urine Protein Negative (NEGATIVE) Urine Glucose (UA) Negative (NEGATIVE) Urine Ketones Negative (NEGATIVE) Urine Occult Blood Negative (NEGATIVE) Urine Nitrite Negative (NEGATIVE) Urine Bilirubin Negative (NEGATIVE) Urine Urobilinogen Normal MG/DL (0.0-1.0) Urine Leukocyte Esterase 1+ (NEGATIVE) Urine RBC 0-2 /HPF (0 - 2) Urine WBC 0 /HPF (0 - 2) Urine Squamous Epithelial Cells None /LPF (NONE/OCC) Urine Bacteria None /HPF (NONE) Urine Osmolality 231 mOsmol/kg (.) Urine Random Sodium 10 mmol/L White Blood Count 6.7 K/UL (4.8-10.8) Red Blood Count 4.52 M/UL (4.20-5.40) Hemoglobin 12.2 G/DL (12.0-16.0) Hematocrit 38.7 % (37.0-47.0) Mean Corpuscular Volume 86 FL (80-99) Mean Corpuscular Hemoglobin 27.1 PG (27.0-31.0) Mean Corpuscular Hemoglobin Concent 31.6 G/DL (32.0-36.0) Red Cell Distribution Width 17.2 % (11.6-14.8) Platelet Count 385 K/UL (150-450) Mean Platelet Volume 4.7 FL (6.5-10.1) Neutrophils (%) (Auto) 40.9 % (45.0-75.0) Lymphocytes (%) (Auto) 44.8 % (20.0-45.0) Monocytes (%) (Auto) 8.4 % (1.0-10.0) Eosinophils (%) (Auto) 4.3 % (0.0-3.0) Basophils (%) (Auto) 1.6 % (0.0-2.0) Sodium Level 132 mEQ/L (135-145) Potassium Level 4.3 mEQ/L (3.4-4.9) Chloride Level 94 mEQ/L (98-107) Carbon Dioxide Level 27 mEQ/L (20-30) Anion Gap 11 (5-15) Blood Urea Nitrogen 10 mg/dL (7-23) Creatinine 0.5 mg/dL (0.5-0.9) Estimat Glomerular Filtration Rate mL/min (>60) Glucose Level 97 mg/dL (74-106) Hemoglobin A1c 5.7 % (< 6.0) Uric Acid 1.3 mg/dL (3.0-7.5) Calcium Level 9.1 mg/dL (8.6-10.2) Phosphorus Level 2.9 mg/dL (2.5-4.8) Magnesium Level 1.8 mg/dL (1.7-2.5) Iron Level 165 ug/dL (37-145) Total Iron Binding Capacity 289 ug/dL (250-400) Percent Iron Saturation 57 % (15-50) Unsaturated Iron Binding 124 ug/dL (112-346) Ferritin 73 ng/mL (13-150) Total Bilirubin < 0.2 mg/dL (0.0-1.2) Gamma Glutamyl Transpeptidase 242 U/L (5-36) Aspartate Amino Transf (AST/SGOT) 18 U/L (5-40) Alanine Aminotransferase (ALT/SGPT) 20 U/L (3-33) Alkaline Phosphatase 110 U/L (35-104) Total Creatine Kinase 16 U/L (26-140) C-Reactive Protein, Quantitative 0.4 mg/dL (< 0.5) Pro-B-Type Natriuretic Peptide 340 pg/mL (0-450) Total Protein 6.2 g/dL (6.6-8.7) Albumin 3.6 g/dL (3.5-5.2) Globulin 2.6 g/dL Albumin/Globulin Ratio 1.3 (1.0-2.7) Triglycerides Level 37 mg/dL (< 150) Cholesterol Level 183 mg/dL (< 200) LDL Cholesterol 79 mg/dL (60-99) HDL Cholesterol 97 mg/dL (> 60) Cholesterol/HDL Ratio 1.9 (3.3-4.4) Vitamin B12 Level 1029 pg/mL (211-946) Folate 8.2 ng/mL (>3.0) Thyroid Stimulating Hormone (TSH) 5.720 uIU/mL (0.300-4.500) Free Thyroxine 0.88 ng/dL (0.86-1.85) Current Medications Medications (Trade) Dose Ordered Sig/Jacque Route PRN Reason Start Time Stop Time Status Last Admin Dose Admin Acetaminophen (Tylenol) 650 mg Q4H PRN ORAL Mild Pain (Pain Scale 1-3) 07/12/16 20:00 08/11/16 19:59 07/12/16 21:04 Acetaminophen/ Hydrocodone Bitart ([place] 10/325) 1 ea Q4H PRN ORAL Moderate pain 07/13/16 02:00 07/20/16 01:59 07/14/16 10:23 Acyclovir (Zovirax) 800 mg Q8HR ORAL 07/13/16 14:00 08/12/16 13:59 07/16/16 13:22 Albuterol/ Ipratropium (DuoNeb 0.5-3(2.5)mg/3ml) 3 ml Q6HR PRN HHN shortness of breath 07/12/16 22:00 07/17/16 21:59 Aspirin (ASA) 81 mg DAILY ORAL 07/13/16 09:00 08/12/16 08:59 07/16/16 10:20 Bisacodyl (Dulcolax) 10 mg HSPRN PRN RECTAL Constipation THIRD LINE 07/12/16 20:39 08/11/16 19:59 Calcitonin [place] (Miacalcin) 1 sprays DAILY NASAL 07/13/16 09:00 08/12/16 08:59 07/16/16 10:20 Dextrose (Dextrose 50%) STAT PRN IV Hypoglycemia 07/12/16 20:00 08/11/16 19:59 Divalproex Sodium (Depakote) 500 mg EVERY 12 HOURS ORAL 07/14/16 21:00 08/13/16 20:59 07/16/16 10:19 Docusate Sodium (Colace) 100 mg TID ORAL 07/13/16 18:00 08/12/16 17:59 07/16/16 13:22 Donepezil HCl (Aricept) 10 mg QHS ORAL 07/14/16 21:00 08/13/16 20:59 07/15/16 22:46 Ergocalciferol (Drisdol) 50,000 intlu QWEEK ORAL 07/18/16 09:00 08/17/16 08:59 Heparin Sodium (Porcine) (Heparin 5000 units/ml) 5,000 units EVERY 12 HOURS SUBQ 07/12/16 21:00 08/11/16 20:59 07/16/16 10:27 Levothyroxine Sodium (Synthroid) 50 mcg ACBREAKFAST ORAL 07/13/16 06:30 08/12/16 06:29 07/16/16 06:34 Lidocaine (Lidoderm 5% PATCH) 1 patch DAILY@0630 TDERMAL 07/13/16 06:30 08/12/16 06:29 07/16/16 06:35 Lorazepam (Ativan) 1 mg THREE TIMES A DAY ORAL 07/13/16 21:00 07/20/16 20:59 07/16/16 13:22 Lorazepam (Ativan) 1 mg TIDPRN PRN ORAL for anxiety 07/12/16 22:00 07/19/16 21:59 Magnesium Hydroxide (Mom) 30 ml HSPRN PRN ORAL Constipation SECOND LINE 07/12/16 20:00 08/11/16 19:59 Memantine (Namenda) 10 mg TWICE A DAY ORAL 07/12/16 21:00 08/11/16 20:59 07/16/16 10:19 Metoprolol Succinate (Toprol XL) 200 mg DAILY ORAL 07/13/16 09:00 08/12/16 08:59 07/16/16 10:20 Multivitamins Therapeutic (Therapeutic Multivitamin) 1 ea DAILY ORAL 07/13/16 09:00 08/12/16 08:59 07/16/16 10:19 Olanzapine (ZyPREXA) 5 mg QHS ORAL 07/12/16 22:30 08/11/16 22:29 07/15/16 22:46 Ondansetron HCl (Zofran) 4 mg Q6H PRN IVP Nausea & Vomiting 07/12/16 20:00 08/11/16 19:59 Pantoprazole (Protonix) 40 mg DAILY ORAL 07/13/16 09:00 08/12/16 08:59 07/16/16 10:19 Polyethylene Glycol (Miralax) 17 gm HSPRN PRN ORAL Constipation FIRST LINE 07/12/16 20:00 08/11/16 19:59 Pravastatin Sodium (Pravachol) 20 mg BEDTIME ORAL 07/12/16 21:00 08/11/16 20:59 07/15/16 22:46 Solifenacin (Vesicare) 10 mg DAILY ORAL 07/13/16 09:00 08/12/16 08:59 07/16/16 10:19 TIERA PRADO Jul 16, 2016 14:17
[2016-07-16 16:00] VITALS: BP 106/68
--- NOTE | 2016-07-16 17:25 | General Progress Note ---
Assessment/Plan Assessment/Plan covering for dr Bustamante ASSESSMENT hyponatremia, likely depletional shingles R back Alzheimer dementia HTN DM seizure disorder hypothyroidism with elevated TSH PLAN OF CARE hyponatremia improving nephro follows s/p 3% NaCl no labs today, check BMP in am nephro doubts SIADH, cleared for dc from nephro standpoint Acyclovir x 5 days lesions drying ID follows clinically improving pain management as needed BP management with current regimen, stable seizure precautions continue Depakote no evidence of seizure activity O2 HHN prn TSH elevated, increase dose of levothyroxine, check TFT in 3-4 weeks continue Aricept and Namenda DVT prophylaxis bowel regimen dc plan for am transfer to [facility] case discussed and evaluated by supervising physician Subjective Allergies: Coded Allergies: NO KNOWN DRUG ALLERGIES (Unverified Allergy, Unknown, 07/29/14) Subjective no signs of distress afebrile improving Objective Last 24 Hour Vital Signs Date Time Temp Pulse Resp B/P Pulse Ox O2 Delivery O2 Flow Rate FiO2 07/16/16 16:00 97.0 78 18 106/68 97 Room Air 07/16/16 12:02 97.3 61 18 118/47 94 Room Air 07/16/16 10:20 58 130/55 07/16/16 08:31 97.3 58 18 130/55 93 Room Air 07/16/16 04:00 97.7 56 14 131/54 93 Room Air 07/16/16 00:00 97.0 55 14 129/56 94 Room Air 07/15/16 20:00 97.0 78 18 104/68 98 Room Air Intake and Output 07/15/16 07/16/16 19:00 07:00 Intake Total 600 ml 360 ml Balance 600 ml 360 ml Intake Oral 600 ml 360 ml # Voids 3 3 Height (Feet): 4 Height (Inches): 11.00 Weight (Pounds): 148 Objective General: alert, cooperative, no distress, Head: normocephalic, atraumatic Eyes: PERRL, EOM's intact Throat: MMM Neck: supple, trachea midline, no JVD Lungs: clear to auscultation bilaterally Heart: regular rate and rhythm, S1, S2 normal, no murmur, Abdomen: soft, non-tender, non-distended, bowel sounds normal; no masses or organomegaly Extremities: extremities normal, atraumatic, no cyanosis or edema Pulses: 2+ and symmetric Skin: Herpes zoster lesions in R upper back Neurologic: no gross focal deficits Keyshawn (Herberth)Esther NP Jul 16, 2016 17:25
[2016-07-16 20:00] VITALS: BP 108/74
[2016-07-16] MEDS: Donepezil 10mg tab ORAL SCH (22:31)
[2016-07-17] VITALS: BP 130/60
[2016-07-17 04:00] VITALS: BP 135/60
[2016-07-17 08:01] VITALS: BP 159/62
[2016-07-17] MEDS: Metoprolol XL 100mg tab ORAL SCH (08:53)
[2016-07-17] MEDS: Docusate 100mg tablet ORAL SCH ×2 (08:53→12:14)
[2016-07-17] MEDS: Depakote 500mg tab ORAL SCH (08:53)
[2016-07-17] MEDS: Multivitamin w/Minerals tab ORAL SCH (08:53)
[2016-07-17] MEDS: Solifenacin 10mg tab ORAL SCH (08:53)
[2016-07-17] MEDS: Memantine 10mg tab ORAL SCH (08:54)
[2016-07-17] MEDS: LORazepam 1mg tab ORAL SCH ×2 (08:54→13:08)
[2016-07-17] MEDS: Aspirin Baby 81mg ORAL SCH (08:54)
[2016-07-17] MEDS: Heparin 5000 units/ml inj SUBQ SCH (09:01)
[2016-07-17 10:15] LABS: BASOPHILS % (AUTO) 0.7 % (0.0-2.0); EOSINOPHILS % (AUTO) 4.8 % (0.0-3.0); MEAN CORPUSCULAR HEMOGLOBIN 27.4 PG (27.0-31.0); MEAN CORPUSCULAR HGB CONC 32.5 G/DL (32.0-36.0); MEAN CORPUSCULAR VOLUME 84 FL (80-99); MEAN PLATELET VOLUME 5.5 FL (6.5-10.1); MONOCYTES % (AUTO) 11.4 % (1.0-10.0); NEUTROPHILS % (AUTO) 60.1 % (45.0-75.0); PLATELET COUNT 388 K/UL (150-450); RED BLOOD COUNT 4.43 M/UL (4.20-5.40); RED CELL DISTRIBUTION WIDTH 17.8 % (11.6-14.8); WHITE BLOOD COUNT 9.6 K/UL (4.8-10.8)
[2016-07-17 10:41] LABS: ALANINE AMINOTRANSFERASE 21 U/L (3-33); ALBUMIN/GLOBULIN RATIO 1.3 (1.0-2.7); ANION GAP 15 (5-15); ASPARTATE AMINO TRANSFERASE 20 U/L (5-40); CALCIUM 9.5 mg/dL (8.6-10.2); CARBON DIOXIDE 26 mEQ/L (20-30); CHLORIDE 93 mEQ/L (98-107); CREATININE 0.4 mg/dL (0.5-0.9); HEMOLYSIS 8; MAGNESIUM 1.9 mg/dL (1.7-2.5); PHOSPHORUS 3.7 mg/dL (2.5-4.8); POTASSIUM 4.1 mEQ/L (3.4-4.9); SODIUM 134 mEQ/L (135-145); TOTAL PROTEIN 6.5 g/dL (6.6-8.7); URIC ACID 1.2 mg/dL (3.0-7.5)
[2016-07-17 11:37] VITALS: BP 144/70
--- NOTE | 2016-07-17 12:48 | General Progress Note ---
Assessment/Plan Status: unchanged Status Narrative Na 134 Assessment/Plan status: HypoNatremia, Likely depletional,doubt SIADH Right back Herpes Zoster / Shingles Dementia High Cholestrol DM HTN Plan: had 3% Saline 250 cc 07/14 monitor narayan JARAMILLO to Dc from renal stand Subjective ROS Limited/Unobtainable: No Constitutional: Reports: malaise Allergies: Coded Allergies: NO KNOWN DRUG ALLERGIES (Unverified Allergy, Unknown, 07/29/14) Objective Last 24 Hour Vital Signs Date Time Temp Pulse Resp B/P Pulse Ox O2 Delivery O2 Flow Rate FiO2 07/17/16 11:37 96.3 78 19 144/70 96 Room Air 07/17/16 08:53 61 159/62 07/17/16 08:01 96.4 61 18 159/62 95 Room Air 07/17/16 04:00 97.3 60 20 135/60 97 Room Air 07/17/16 00:00 97.8 60 20 130/60 97 Room Air 07/16/16 20:00 96.8 68 18 108/74 96 Room Air 07/16/16 16:00 97.0 78 18 106/68 97 Room Air Intake and Output 07/16/16 07/17/16 19:00 07:00 Intake Total 240 ml 340 ml Balance 240 ml 340 ml Intake Oral 240 ml 340 ml # Voids 4 4 # Bowel Movements 4 Laboratory Tests 07/17/16 09:00: White Blood Count 9.6, Red Blood Count 4.43, Hemoglobin 12.1, Hematocrit 37.3, Mean Corpuscular Volume 84, Mean Corpuscular Hemoglobin 27.4, Mean Corpuscular Hemoglobin Concent 32.5, Red Cell Distribution Width 17.8H, Platelet Count 388, Mean Platelet Volume 5.5L, Neutrophils (%) (Auto) 60.1, Lymphocytes (%) (Auto) 23.0, Monocytes (%) (Auto) 11.4H, Eosinophils (%) (Auto) 4.8H, Basophils (%) ( Auto) 0.7, Sodium Level 134L, Potassium Level 4.1, Chloride Level 93L, Carbon Dioxide Level 26, Anion Gap 15, Blood Urea Nitrogen 8, Creatinine 0.4L, Estimat Glomerular Filtration Rate , Glucose Level 89, Uric Acid 1.2L, Calcium Level 9.5 , Phosphorus Level 3.7, Magnesium Level 1.9, Total Bilirubin 0.2, Aspartate Amino Transf (AST/SGOT) 20, Alanine Aminotransferase (ALT/SGPT) 21, Alkaline Phosphatase 109H, Pro-B-Type Natriuretic Peptide 663H, Total Protein 6.5L, Albumin 3.7, Globulin 2.8, Albumin/Globulin Ratio 1.3 Height (Feet): 4 Height (Inches): 11.00 Weight (Pounds): 148 General Appearance: no apparent distress Objective no signs of CHF ALYSON FLANAGAN Jul 17, 2016 12:48
--- NOTE | 2016-07-17 14:40 | General Progress Note ---
Assessment/Plan Problem List: (1) Toxic metabolic encephalopathy ICD Codes: G92 - Toxic encephalopathy SNOMED: 775681570 (2) Hyponatremia ICD Codes: E87.1 - Hyponatremia SNOMED: 57031899 (3) Herpes zoster ICD Codes: B02.9 - Zoster without complications SNOMED: 0445504 (4) Generalized weakness ICD Codes: R53.1 - Weakness SNOMED: 94699927 Status: stable Assessment/Plan Hyponatremia likely hypovolemic type 2/2 dehydration. 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 Disposition: Once the patient is stable to leave the hospital, I anticipate the patient will likely be discharged to the following environment: back to SNF I spent 40 minutes on this patient's case, and 22 minutes were dedicated to counseling and/or care coordination. Discussed with patient/family, nursing staff, SW/CM, renal, ID regarding clinical status, treatment course, and disposition planning. Time of note may not reflect time of encounter. Subjective Date patient seen: Jul 14, 2016 Time patient seen: 14:38 ROS Limited/Unobtainable: No Constitutional: Reports: no symptoms HEENT: Reports: no symptoms Cardiovascular: Reports: no symptoms Respiratory: Reports: no symptoms Gastrointestinal/Abdominal: Reports: no symptoms Genitourinary: Reports: no symptoms Neurologic/Psychiatric: Reports: no symptoms Hematologic/Lymphatic: Reports: no symptoms Allergies: Coded Allergies: NO KNOWN DRUG ALLERGIES (Unverified Allergy, Unknown, 07/29/14) All Systems: reviewed and negative except above Subjective Na improved to 132 Mental status improved--more awake, alert Objective Last 24 Hour Vital Signs Date Time Temp Pulse Resp B/P Pulse Ox O2 Delivery O2 Flow Rate FiO2 07/17/16 11:37 96.3 78 19 144/70 96 Room Air 07/17/16 08:53 61 159/62 07/17/16 08:01 96.4 61 18 159/62 95 Room Air 07/17/16 04:00 97.3 60 20 135/60 97 Room Air 07/17/16 00:00 97.8 60 20 130/60 97 Room Air 07/16/16 20:00 96.8 68 18 108/74 96 Room Air 07/16/16 16:00 97.0 78 18 106/68 97 Room Air Intake and Output 07/16/16 07/17/16 19:00 07:00 Intake Total 240 ml 340 ml Balance 240 ml 340 ml Intake Oral 240 ml 340 ml # Voids 4 4 # Bowel Movements 4 Laboratory Tests 07/17/16 09:00: White Blood Count 9.6, Red Blood Count 4.43, Hemoglobin 12.1, Hematocrit 37.3, Mean Corpuscular Volume 84, Mean Corpuscular Hemoglobin 27.4, Mean Corpuscular Hemoglobin Concent 32.5, Red Cell Distribution Width 17.8H, Platelet Count 388, Mean Platelet Volume 5.5L, Neutrophils (%) (Auto) 60.1, Lymphocytes (%) (Auto) 23.0, Monocytes (%) (Auto) 11.4H, Eosinophils (%) (Auto) 4.8H, Basophils (%) ( Auto) 0.7, Sodium Level 134L, Potassium Level 4.1, Chloride Level 93L, Carbon Dioxide Level 26, Anion Gap 15, Blood Urea Nitrogen 8, Creatinine 0.4L, Estimat Glomerular Filtration Rate , Glucose Level 89, Uric Acid 1.2L, Calcium Level 9.5 , Phosphorus Level 3.7, Magnesium Level 1.9, Total Bilirubin 0.2, Aspartate Amino Transf (AST/SGOT) 20, Alanine Aminotransferase (ALT/SGPT) 21, Alkaline Phosphatase 109H, Pro-B-Type Natriuretic Peptide 663H, Total Protein 6.5L, Albumin 3.7, Globulin 2.8, Albumin/Globulin Ratio 1.3 Height (Feet): 4 Height (Inches): 11.00 Weight (Pounds): 148 Objective General: alert, cooperative, no distress, appears stated age Head: normocephalic, without obvious abnormality, atraumatic Eyes: conjunctivae/corneas clear. PERRL, EOM's intact Throat: lips, mucosa, and tongue normal. MMM Neck: supple, symmetrical, trachea midline, and no JVD Lungs: clear to auscultation bilaterally Heart: regular rate and rhythm, S1, S2 normal, no murmur, click, rub or gallop Abdomen: soft, non-tender, non-distended, bowel sounds normal; no masses or organomegaly Extremities: extremities normal, atraumatic, no cyanosis or edema Pulses: 2+ and symmetric Skin: skin color, texture, turgor normal Herpes zoster lesions in R upper back Neurologic: grossly normal, no focal deficits Prachi Mejia M.D. Jul 17, 2016 14:40
[2016-07-17 16:00] VITALS: BP 114/65
--- NOTE | 2016-07-18 08:35 | Discharge Summary ---
Discharge Summary Hospital Course Date of Admission Jul 12, 2016 at 12:57 Date of Discharge Jul 17, 2016 at 18:56 Admitting Diagnosis hyponatremia HPI 85 year old female with pmh of Pulmonary HTN, SDH, Seizure d/o, HLD, PSVT, Anemia, BLE DVTs, Chronic back pain, Asthma, Anxiety, Alzheimer's, recurrent UTIs, CVA who was transferred from SNF given increase lethargy, confusion, and abnormal labs. Pt was noted to have Na 115 at labs done at SNF. She is also generally more weak, fatigued and confused than usual. Pt c/o pain in upper back , burning sensation. In ED, pt found to have herpes zoster on upper back and given Acyclovir. Pt also noted to have Na 120. Pt was given 1L NS. Consultations Nephrology Infectious disease Hospital Course Pt was admitted and continued on IVFs for hyponatremia. Pt's Na improved. Her mental status also improved and she was back at baseline. Pt was also seen by infectious disease given herpes zoster and continued on acylcovir. Prior to d/c, pt was HD stable and tolerating PO. Discharge Medications New Medications: Acyclovir* (Zovirax*) 800 Mg Tablet 800 MG ORAL Q8HR for 7 Days, TAB Divalproex Sodium (Depakote) 500 Mg Tablet. 500 MG ORAL EVERY 12 HOURS, #60 TAB Continued Medications: Acetaminophen (Acetaminophen) 650 Mg/20.3 Ml Soln 650 MG ORAL Q6H PRN for Prn Headache/Temp > 101, ML 0 Refills Acidophilus/Bulgaricus (Floranex Tablet) 1 Each Tablet 1 EACH PO BID, TAB Aspirin* (Ecotrin*) 325 Mg Tablet. 81 MG ORAL DAILY, TAB Bisacodyl* (Dulcolax*) 5 Mg Tablet.dr 10 MG RECTAL ONCE, #4 TAB 0 Refills Ca Carbonate/Vitamin D3/Vit K (Calcium + D Soft Chewable Tab) 1 Each Tab.chew 1 EACH PO DAILY, TAB Calcitonin,[place],Synthetic (Calcitonin-[place]) 3.7 Ml [place].pump 3.7 ML NS DAILY Docusate Sodium* (Docusate Sodium*) 100 Mg Capsule 100 MG ORAL TWICE A DAY, CAP Donepezil Hcl* (Aricept*) 10 Mg Tablet 10 MG ORAL DAILY, TAB Ergocalciferol (Vitamin D2)* (Vitamin D*) 50,000 Unit Capsule 15316 UNIT ORAL ONCE A WEEK, CAP Ferrous Sulfate* (Ferrous Sulfate*) 325 Mg Tablet 325 MG ORAL DAILY, #30 TAB 0 Refills Fluvoxamine Maleate (Fluvoxamine Maleate) 50 Mg Tab 50 MG ORAL BID, #10 TAB 0 Refills Lactobacillus Cmb#7/Fos/Inulin (Probiotic Complex Tablet) 1 Each Tablet Unknown Dose PO DAILY, TAB Levothyroxine Sodium* (Levothyroxine Sodium*) 50 Mcg Tablet 50 MCG ORAL DAILY, TAB Take in the morning on an empty stomach, at least 30 minutes before food. Lidocaine (Lidocaine) 700 Mg Adh..patch 1400 MG TP DAILY, PATCH Lorazepam* (Ativan*) 2 Mg Tablet 2 MG ORAL THREE TIMES A DAY PRN for Agitation, TAB Lorazepam* (Lorazepam*) 1 Mg Tablet 1 MG ORAL THREE TIMES A DAY, TAB Melatonin (Melatonin) 1 Mg Tab.subl 1 MG PO BEDTIME PRN for Insomnia, TAB Memantine Hcl* (Namenda*) 10 Mg Tablet 10 MG ORAL TWICE A DAY, TAB Metoprolol Succinate* (Toprol Xl*) 100 Mg Tabcr 200 MG ORAL DAILY for 30 Days, TAB Multivitamin With Minerals (Multivitamins With Minerals*) 1 Each Tablet 1 TAB ORAL DAILY, TAB Nitrofurantoin Macrocrystal (Nitrofurantoin) 100 Mg Capsule 100 MG PO BID for 30 Days, CAP Nitrofurantoin Monohyd/M-Cryst (Nitrofurantoin [place]-Mcr 100 mg) 100 Mg Cap 100 MG ORAL BID for 5 Days, CAP Olanzapine* (Zyprexa*) 5 Mg Tablet 5 MG ORAL HS, TAB [place]-3 Fatty Acids/Fish Oil (Fish Oil 1,000 Mg Capsule) 1 Each Capsule 1 CAP ORAL BID, #30 CAP 0 Refills Pantoprazole* (Pantoprazole*) 40 Mg Tablet.dr 40 MG ORAL DAILY, TAB Ranitidine Hcl* (Zantac*) 150 Mg Tablet 150 MG ORAL TWICE A DAY, TAB Simvastatin (Zocor) 20 Mg Tablet 20 MG ORAL BEDTIME, TAB Solifenacin Succinate (Vesicare*) 10 Mg Tablet 10 MG ORAL HS, TAB Temazepam* (Restoril*) 7.5 Mg Capsule 7.5 MG ORAL BEDTIME, #10 CAP 0 Refills Discontinued Medications: Acyclovir* (Acyclovir*) 400 Mg Tablet 800 MG ORAL FIVE TIMES A DAY, TAB Phenytoin (Phenytoin*) 100 Mg/4 Ml Oral.susp 300 MG ORAL HS, ML 0 Refills Discharge Condition Upon Discharge: stable Discharge Disposition Patient was discharged to SNF/Subacute Facility(03) Discharge Diagnoses: (1) Hyponatremia (2) Toxic metabolic encephalopathy (3) Herpes zoster Prachi Mejia M.D. Jul 18, 2016 08:35
[2016-07-18] MEDS ORDERED: Vitamin D 50,000 units cap ORAL SCH (09:00)
--- NOTE | 2016-07-18 11:51 | Cardiology Report ---
APPROVED REPORT EKG Measurement Heart [id number] CT [id number] Sinus rhythm with 1st degree AV block Septal infarct, age undetermined Abnormal ECG
== END 2016-07-17 18:56 | DRG 640 ==
LOC: EDBD 10:41 → EMR 11:59 → 2E 12:57 → EDBEDREQ 18:58 → 2E 07-13 08:30
DX: E87.1 Hypo-osmolality and hyponatremia (principal); G92 Toxic encephalopathy; E86.0 Dehydration; I27.2 Other secondary pulmonary hypertension; B02.9 Zoster without complications; G30.9 Alzheimer's disease, unspecified; F03.90 Unspecified dementia, unspecified severity, without behavioral disturbance, psychotic disturbance, mood disturbance, and anxiety; E11.9 Type 2 diabetes mellitus without complications; I10 Essential (primary) hypertension; F02.80 Dementia in other diseases classified elsewhere, unspecified severity, without behavioral disturbance, psychotic disturbance, mood disturbance, and anxiety; Z86.718 Personal history of other venous thrombosis and embolism; J45.909 Unspecified asthma, uncomplicated; Z86.73 Personal history of transient ischemic attack (TIA), and cerebral infarction without residual deficits; E03.9 Hypothyroidism, unspecified; E78.5 Hyperlipidemia, unspecified
CPT/HCPCS: 36415; 80053; 80061; 81001; 82550; 82607; 82728; 82746; 82977; 83036; 83540; 83550; 83735; 83880; 83930; 83935; 84100; 84300; 84439; 84443; 84484; 84550; 85025; 86140; 87081; 93005; 94664

== ENCOUNTER 2017-04-08 20:39 | Inpatient (IN) | payer MEDICARE, MEDICAID ==
[2017-04-08] VITALS (12 sets, daily range): BP systolic 92–148; BP diastolic 32–72
[~2017-04-08] VITALS: Ht 160 cm; Wt 74.5 kg
[~2017-04-08 20:39] MED LIST changes: +ACYCLOVIR400 MG ORAL; +ACYCLOVIR800 MG ORAL; +BISACODYL5 MG RECTAL; +CALCIUM + D SO1 EACH PO; +DEPAKOTE500 MG ORAL; +ECOTRIN325 MG ORAL; +FERROUS SULFAT325 MG ORAL; +LEVOTHYROXINE50 MCG ORAL; +LORAZEPAM1 MG ORAL; +MELATONIN1 M1 PO; +PROBIOTIC COMP1 EAC1 PO; +RESTORIL7.5 MG ORAL; +VITAMIN D250000 UNI1 ORAL; +ZANTAC150 MG ORAL
[2017-04-08] MEDS ORDERED: PRILOSEC OTC20 MG ORAL (20:52)
[2017-04-08] MEDS ORDERED: TAMSULOSIN HCL0.4 MG ORAL (20:52)
[2017-04-08] MEDS ORDERED: NITROFURANTOIN100 M2 ORAL (20:52)
[2017-04-08] MEDS ORDERED: DEPAKOTE SPRIN125 MG PO (20:52)
[2017-04-08] MEDS ORDERED: AMIODARONE HCL400 M1 ORAL (20:52)
[2017-04-08] MEDS ORDERED: ATIVAN2 MG/1 ML PO (20:52)
[2017-04-08] MEDS ORDERED: ZYPREXA10 MG ORAL (20:52)
[2017-04-08] MEDS ORDERED: ELIQUIS5 MG PO (20:52)
[2017-04-08] MEDS ORDERED: BACLOFEN10 MG ORAL (20:52)
[2017-04-08] MEDS ORDERED: NAMENDA10 MG ORAL (20:52)
[2017-04-08] MEDS ORDERED: NORCO 10-325 T1 EACH ORAL (20:52)
[2017-04-08 21:00] LABS: ABG BASE EXCESS 8.8; ABG PCO2 75.3 mmHg (35.0-45.0)
[2017-04-08 21:01] LABS: ABG ALLEN TEST POSITIVE
[2017-04-08] MEDS ORDERED: Vancomycin 1 GM in D5W 275 ML IVPB ONE (21:15)
[2017-04-08] MEDS ORDERED: Cefepime HCl 1 GM in D5W 55 ML IVPB ONE (21:15)
[2017-04-08] MEDS ORDERED: Midazolam 2mg/2ml Inj ONE (21:23)
[2017-04-08] MEDS ORDERED: Midazolam/D5W 100ml 100 ML IVPB ONE (21:24)
[2017-04-08] MEDS ORDERED: Midazolam 2mg/2ml Inj IVP ONE ×3 (21:30→22:30)
[2017-04-08] MEDS ORDERED: Midazolam for drip 50 MG in NS 90 ML IV ONE (21:30)
[2017-04-08] MEDS ORDERED: Midazolam 2mg/2ml Inj IV ONE (21:30)
[2017-04-08 21:39] LABS: INR 1.3 (0.9-1.1); PROTHROMBIN TIME 13.6 SEC (9.30-11.50)
--- NOTE | 2017-04-08 21:39 | Emergency Room Report ---
History of Present Illness General Chief Complaint: Dyspnea/Respdistress Source: EMS Present Illness HPI Patient with ALOC and alleged x-ray with aspiration pneumonia. Daughter states extremely dehydrated as not taking PO well. Fever 101. Keflex "didn't work" and levaquin begun. Treatment recently for aspiration PNA at [facility]. No intubation required. Presented similarly with ALOC. H/O dementia. Problems with swallowing. No food or fluids 24 hours. On eliquis BID. Macrobid for UTI prophylaxis. Admitting dx June 2016: Pulmonary HTN, SDH, Seizure d/o, HLD, PSVT, Anemia, BLE DVTs, Chronic back pain , Asthma, Anxiety, Alzheimer's, recurrent UTIs, CVA No other history available. Allergies: Coded Allergies: NO KNOWN DRUG ALLERGIES (Unverified Allergy, Unknown, 07/29/14) Patient History Limited by: medical condition Past Medical History: see triage record, old chart reviewed Social History Narrative daughter POA - cared for at home Last Menstrual Period: NA Now: No Reviewed Nursing Documentation: PMH: Agreed, PSxH: Agreed Nursing Documentation-PMH Hx Cardiac Problems: Yes Hx Hypertension: Yes Hx Diabetes: Yes Hx Cancer: No Hx Dementia: Yes Hx Alzheimer's Disease: Yes Hx Seizures: Yes Review of Systems All Other Systems: limited Physical Exam Vital Signs Date Time Temp Pulse Resp B/P (MAP) Pulse Ox O2 Delivery O2 Flow Rate FiO2 04/08/17 20:27 98.1 80 18 105/46 95 Nasal Cannula 4.0 Sp02 EP Interpretation: reviewed, normal General Appearance: Chronically Ill, Stupor Head: normocephalic Eyes: bilateral eye PERRL ENT: dry mucus membranes Neck: supple Respiratory: other - decreased TV Cardiovascular #1: regular rate, rhythm Cardiovascular #2: 1+ femoral (R), 1+ femoral (L) Gastrointestinal: normal inspection, non tender, no mass, non-distended, decreased bowel sounds Genitourinary: normal inspection Musculoskeletal: back normal, other - flaccid Neurologic: other - unresponsive Psychiatric: other - stupor Skin: mottled, other - intertrigo Procedures Critical Care Time Critical Care Time Total Critical Care Time: 75 min of bedside evaluation and treatment excludes procedures Procedures: CVP, intubation, EKG Reason for Critical Care: Hypotension, sepsis, metabolic acidosis, prevention of end organ injury, respiratory failure Course: the patient presented with AMS. I assessed ineffective TV and this was confirmed with ABG. She was immediately intubated. Improved mentation necessitating sedation - multiple evaluations with Versed titration. IV access was poor so central line was started. In addition, antibiotics were initiated. Repeated evaluations were made as well as discussion with PMD/critical care. Repeat ABG reflected vent support and improvement of respiratory acidosis. Potassium high and treated. Several discussions with daughter regarding level of care and progress. Patient admitted to ICU. Consultations: PMD/critical care MD, medical staff services coordinator, RT, family Alternative history: EMS, daughter Result: Patient was improved but critical Performed by: Dr. Pearson Central Line Central Line : Consent: Emergent Central Line Lumen: triple Maximal Sterile Barrier Tech: yes cap, yes mask, yes sterile gown, yes sterile gloves, yes large sterile sheet, yes hand hygiene, yes chlorhexidine prep Central Line Postion: internal jugular (L), femoral (R) Anesthesia: Lidocaine Complications: none Central Line Post Position: sutured, good blood return, position confirmed w / CXR Attempts: Other - 2 Patient Tolerated: Well Complications: Other Progress First attempt, vein found with ease R femoral. Unable to thread wire. Several attempts to find vein again unsuccessful even with U/S. No vein on L (U/S) - one puncture. L IJ with ease with use of U/S. EBL = 12 ml. Intubation Intubation : Consent: Emergent Intubation Method: orotracheal Tube Size (cm): 7.5 - BS at 22 cm Breath Sounds after Intubation: equal Intubation Complications: no complications Post Intubation Xray: Yes Attempts: One Patient Tolerated: Well Complications: None Progress copious thick secretions Medical Decision Making Diagnostic Impression: Primary Impression: Respiratory failure Qualified Codes: J96.01 - Acute respiratory failure with hypoxia; J96.02 - Acute respiratory failure with hypercapnia Additional Impressions: Aspiration pneumonia Qualified Codes: J69.0 - Pneumonitis due to inhalation of food and vomit Hyperkalemia Renal insufficiency UTI (urinary tract infection) Qualified Codes: N39.0 - Urinary tract infection, site not specified Altered level of consciousness Sepsis Qualified Codes: A41.9 - Sepsis, unspecified organism ER Course Patient with ALOC and h/o aspiration pneumonia. DDx; sepsis, resp failure, pneumonia, repeated aspirations, electrolyte abnormalities amongst others. Emergent evaluation with ABG, EKG, CXR, labs, BC, lactate. ABG with resp failure. Discussed intubation with daughter. After intubation, improved mentation. Versed drip with aggressive titration and repeated boluses for sedation. Sepsis rehydration begun. Antibiotics begun. Poor IV access. CVP started with some difficulty - L IJ with ease and u/s. Confirmed with CXR. Labs with leukocytosis, elevated K, renal insufficiency. Kayexelate and calcium ordered. NG tube confirmed with abd film. Pressors not needed. Discussed with Dr. Velarde. Admit ICU. Laboratory Tests Test 04/08/17 20:45 04/08/17 21:05 04/08/17 21:23 Arterial Blood pH 7.315 (7.350-7.450) 7.526 (7.350-7.450) Arterial Blood Partial Pressure CO2 75.3 mmHg (35.0-45.0) *H 39.4 mmHg (35.0-45.0) Arterial Blood Partial Pressure O2 69.3 mmHg (75.0-100.0) L 59.3 mmHg (75.0-100.0) L Arterial Blood HCO3 37.5 mmol/L (22.0-26.0) H 31.9 mmol/L (22.0-26.0) H Arterial Blood Oxygen Saturation 93.2 % (92.0-98.0) 93.2 % (92.0-98.0) Arterial Blood Base Excess 8.8 8.5 Kelvin Test Positive Positive White Blood Count 11.0 K/UL (4.8-10.8) H Red Blood Count 3.38 M/UL (4.20-5.40) L Hemoglobin 10.1 G/DL (12.0-16.0) L Hematocrit 34.4 % (37.0-47.0) L Mean Corpuscular Volume 102 FL (80-99) H Mean Corpuscular Hemoglobin 30.0 PG (27.0-31.0) Mean Corpuscular Hemoglobin Concent 29.4 G/DL (32.0-36.0) L Red Cell Distribution Width 14.8 % (11.6-14.8) Platelet Count 320 K/UL (150-450) Mean Platelet Volume 5.1 FL (6.5-10.1) L Neutrophils (%) (Auto) 61.7 % (45.0-75.0) Lymphocytes (%) (Auto) 21.4 % (20.0-45.0) Monocytes (%) (Auto) 9.4 % (1.0-10.0) Eosinophils (%) (Auto) 7.0 % (0.0-3.0) H Basophils (%) (Auto) 0.5 % (0.0-2.0) Prothrombin Time 13.6 SEC (9.30-11.50) H Prothrombin Time INR 1.3 (0.9-1.1) H PTT 36 SEC (23-33) H Sodium Level 138 MMOL/L (136-145) Potassium Level 6.0 MMOL/L (3.5-5.1) *H Chloride Level 103 MMOL/L (98-107) Carbon Dioxide Level 33 MMOL/L (21-32) H Anion Gap 2 mmol/L (5-15) L Blood Urea Nitrogen 20 mg/dL (7-18) H Creatinine 1.8 MG/DL (0.55-1.30) H Estimate Glomerular Filtration Rate mL/min (>60) Glucose Level 104 MG/DL (74-106) Lactic Acid Level 0.90 mmol/L (0.66-2.22) Calcium Level 11.6 MG/DL (8.5-10.1) H Magnesium Level 2.0 MG/DL (1.8-2.4) Total Bilirubin 0.2 MG/DL (0.2-1.0) Aspartate Amino Transferase (AST) 12 U/L (15-37) L Alanine Aminotransferase (ALT) 7 U/L (12-78) L Alkaline Phosphatase 85 U/L (46-116) Total Creatine Kinase 21 U/L (26-308) L Troponin I 0.000 ng/mL (0.000-0.056) Pro-B-Type Natriuretic Peptide 742 pg/mL (0-125) H Total Protein 6.9 G/DL (6.4-8.2) Albumin 2.5 G/DL (3.4-5.0) L Globulin 4.4 g/dL Albumin/Globulin Ratio 0.6 (1.0-2.7) L EKG Diagnostic Results Rate: normal Rhythm: NSR ST Segments: no acute changes Rhythm Strip Diag. Results EP Interpretation: yes Rhythm: NSR, no PVC's, no ectopy Chest X-Ray Diagnostic Results Chest X-Ray Diagnostic Results #1: Chest X-Ray Ordered: Yes # of Views/Limited/Complete: 1 View Indication: Other Interpretation: no effusion, no pneumothorax, other - aspiration pna Impression: Other Electronically Signed by: Electronically signed by Joshua Pearson MD Chest X-Ray Diagnostic Results #2: Chest X-Ray Ordered: Yes # of Views/Limited/Complete: 1 View Indication: Other EP Interpretation: Yes Interpretation: no effusion, no pneumothorax, other - ET and CVP good placement, R infiltrates Impression: Other Electronically Signed by: Joshua Pearson MD Other X-Ray Diagnostic Results Other X-Ray Diagnostic Results : X-Ray ordered: abd # of Views/Limited Vs Complete: 1 View Interpretation: nonspecific bowel gas, no sbo, other - inc stool - NG in stomach Impression: Other Electronically Signed by: Joshua Pearson MD Last Vital Signs Date Time Temp Pulse Resp B/P (MAP) Pulse Ox O2 Delivery O2 Flow Rate FiO2 04/08/17 20:27 98.1 80 18 105/46 95 Nasal Cannula 4.0 Status: improved Disposition: ADMITTED INPATIENT Condition: Critical Joshua Pearson M.D. Apr 08, 2017 21:38
[2017-04-08] MEDS ORDERED: Midazolam/D5W 100ml 100 ML IVPB SCH (21:45)
[2017-04-08 21:53] LABS: BASOPHILS % (AUTO) 0.5 % (0.0-2.0); LYMPHOCYTES % (AUTO) 21.4 % (20.0-45.0); MEAN CORPUSCULAR HGB CONC 29.4 G/DL (32.0-36.0); MEAN CORPUSCULAR VOLUME 102 FL (80-99); MEAN PLATELET VOLUME 5.1 FL (6.5-10.1); MONOCYTES % (AUTO) 9.4 % (1.0-10.0); NEUTROPHILS % (AUTO) 61.7 % (45.0-75.0); PLATELET COUNT 320 K/UL (150-450); RED BLOOD COUNT 3.38 M/UL (4.20-5.40); RED CELL DISTRIBUTION WIDTH 14.8 % (11.6-14.8)
[2017-04-08 21:58] LABS: ALANINE AMINOTRANSFERASE 7 U/L (12-78); ALBUMIN/GLOBULIN RATIO 0.6 (1.0-2.7); ANION GAP 2 mmol/L (5-15); ASPARTATE AMINO TRANSFERASE 12 U/L (15-37); CALCIUM 11.6 MG/DL (8.5-10.1); CARBON DIOXIDE 33 MMOL/L (21-32); CHLORIDE 103 MMOL/L (98-107); CREATININE 1.8 MG/DL (0.55-1.30); SODIUM 138 MMOL/L (136-145); TOTAL PROTEIN 6.9 G/DL (6.4-8.2)
[2017-04-08] MEDS ORDERED: Calcium Gluconate 1gm/10ml vial IVP ONE (22:30)
[2017-04-08] MEDS ORDERED: Sodium Polystyrene Sulfonate 15gm Powder RECTAL ONE (22:30)
[2017-04-08 22:44] LABS: ABG ALLEN TEST POSITIVE; ABG BASE EXCESS 8.5; ABG PCO2 39.4 mmHg (35.0-45.0)
[2017-04-08] MEDS ORDERED: Acetaminophen 650 MG SUPP RECTAL PRN ×2 (23:15)
[2017-04-08] MEDS ORDERED: Albuterol/Ipratropium 3ml neb HHN PRN (23:15)
[2017-04-08] MEDS ORDERED: Cefepime 1gm vial ONE (23:27)
[2017-04-09] VITALS (39 sets, daily range): BP systolic 85–147; BP diastolic 28–83
[2017-04-09 00:02] LABS: APPEARANCE,URINE CLOUDY; KETONES,URINE NEGATIVE (NEGATIVE); LEUKOCYTE ESTERASE ,URINE 3+ (NEGATIVE); NITRITE,URINE NEGATIVE (NEGATIVE); PH,URINE 7 (4.5-8.0); PROTEIN,URINE 1+ (NEGATIVE); UROBILINOGEN,URINE NORMAL MG/DL (0.0-1.0)
[2017-04-09 00:08] LABS: BACTERIA,URINE MODERATE /HPF; SQUAMOUS EPITHELIAL CELL,UR FEW /LPF (NONE/OCC); WBC,URINE TNTC /HPF (0 - 2)
[2017-04-09] MEDS ORDERED: Sodium Polystyrene Sulfonate 15gm Powder ORAL ONE (00:30)
[2017-04-09] MEDS ORDERED: Vancomycin 1gm inj IVPB ONE (00:30)
[2017-04-09] MEDS: Vancomycin 1gm in D5W 275ml IVPB SCH (02:00)
[2017-04-09 04:55] LABS: BASOPHILS % (AUTO) 0.3 % (0.0-2.0); EOSINOPHILS % (AUTO) 5.3 % (0.0-3.0); LYMPHOCYTES % (AUTO) 23.4 % (20.0-45.0); MEAN CORPUSCULAR HEMOGLOBIN 31.8 PG (27.0-31.0); MEAN CORPUSCULAR HGB CONC 32.5 G/DL (32.0-36.0); MEAN CORPUSCULAR VOLUME 98 FL (80-99); MEAN PLATELET VOLUME 5.5 FL (6.5-10.1); MONOCYTES % (AUTO) 8.8 % (1.0-10.0); NEUTROPHILS % (AUTO) 62.2 % (45.0-75.0); PLATELET COUNT 302 K/UL (150-450); RED CELL DISTRIBUTION WIDTH 14.5 % (11.6-14.8); WHITE BLOOD COUNT 12.7 K/UL (4.8-10.8)
[2017-04-09 05:06] LABS: ANION GAP 6 mmol/L (5-15); CALCIUM 10.7 MG/DL (8.5-10.1); CARBON DIOXIDE 29 MMOL/L (21-32); CHLORIDE 104 MMOL/L (98-107); CREATININE 1.3 MG/DL (0.55-1.30); SODIUM 139 MMOL/L (136-145)
[2017-04-09] MEDS ORDERED: Zosyn 3.375gm inj ONE (05:56)
[2017-04-09] MEDS ORDERED: Piperacillin/Tazobactam 3.375 GM in D5W 110 ML IV SCH (06:00)
[2017-04-09] MEDS: Albuterol/Ipratropium 3ml neb HHN SCH ×4 (06:00→20:34)
[2017-04-09] MEDS ORDERED: Docusate 100mg cap ORAL SCH (09:00)
[2017-04-09] MEDS: Pantoprazole Inj IV SCH (09:29)
[2017-04-09] MEDS: Heparin 5000 units/ml inj SUBQ SCH ×2 (09:32→21:22)
--- NOTE | 2017-04-09 09:36 | History and Physical ---
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 Per daughter, pt was doing well w/ puree diet and nektar thick liquids. However, yesterday, pt noed to be more altered and with labored breathing and cough. Pt had fever to 101. Pt has had poor PO intake since yesterday. No reports of chest pain, abd pain, n/v, d/c, focal weakness/numbness. Pt at baseline is non-ambulatory and has dementia--A&O1 -2, sometimes to place but not to date or surroundings. In ED, pt noted to be tachynpeic and ABG w/ acute respiratory acidosis w/ CO2 75. Pt was urgently intubated. Pt also borderline hypotensive and given IVF boluses. CXR with concern for aspiration pneumonia. U/A also w/ pyuria. Pt given vanco, cefepime and levaquin. Allergies: Coded Allergies: NO KNOWN DRUG ALLERGIES (Unverified Allergy, Unknown, 07/29/14) Medication History Scheduled Acidophilus/Bulgaricus (Floranex Tablet), 1 EACH PO BID, (Reported) Acyclovir* (Zovirax*), 800 MG ORAL Q8HR Amiodarone Hcl* (Amiodarone Hcl*), Unknown Dose ORAL EVERY 12 HOURS, (Reported) Apixaban (Eliquis), 5 MG PO BID, (Reported) Aspirin* (Ecotrin*), 81 MG ORAL DAILY, (Reported) Bisacodyl* (Dulcolax*), 10 MG RECTAL ONCE, (Reported) Ca Carbonate/Vitamin D3/Vit K (Calcium + D Soft Chewable Tab), 1 EACH PO DAILY, (Reported) Calcitonin,Silverpeak,Synthetic (Calcitonin-Silverpeak), 3.7 ML NS DAILY, (Reported) Divalproex Sodium (Depakote), 500 MG ORAL EVERY 12 HOURS Divalproex Sodium (Depakote Sprinkle), 125 MG PO BID, (Reported) Docusate Sodium* (Docusate Sodium*), 100 MG ORAL TWICE A DAY, (Reported) Donepezil Hcl* (Aricept*), 10 MG ORAL DAILY, (Reported) Ergocalciferol (Vitamin D2)* (Vitamin D*), 50,000 UNIT ORAL ONCE A WEEK, ( Reported) Ferrous Sulfate* (Ferrous Sulfate*), 325 MG ORAL DAILY, (Reported) Fluvoxamine Maleate (Fluvoxamine Maleate), 50 MG ORAL BID, (Reported) Lactobacillus Cmb#7/Fos/Inulin (Probiotic Complex Tablet), Unknown Dose PO DAILY , (Reported) Levothyroxine Sodium* (Levothyroxine Sodium*), 50 MCG ORAL DAILY, (Reported) Lidocaine (Lidocaine), 1,400 MG TP DAILY, (Reported) Lorazepam* (Lorazepam*), 1 MG ORAL THREE TIMES A DAY, (Reported) Memantine Hcl* (Namenda*), 10 MG ORAL TWICE A DAY, (Reported) Memantine Hcl* (Namenda*), 10 MG ORAL TWICE A DAY, (Reported) Metoprolol Succinate* (Toprol Xl*), 200 MG ORAL DAILY Multivitamin With Minerals (Multivitamins With Minerals*), 1 TAB ORAL DAILY, ( Reported) Nitrofurantoin Macrocrystal (Nitrofurantoin), 100 MG PO BID Nitrofurantoin Monohyd/M-Cryst (Nitrofurantoin [place]-Mcr 100 mg), 100 MG ORAL BID , (Reported) Nitrofurantoin Monohyd/M-Cryst* (Macrobid 100 Mg*), Unknown Dose ORAL EVERY 12 HOURS, (Reported) Olanzapine* (Zyprexa*), 5 MG ORAL HS, (Reported) Olanzapine* (Zyprexa*), 10 MG ORAL DAILY, (Reported) Mason-3 Fatty Acids/Fish Oil (Fish Oil 1,000 Mg Capsule), 1 CAP ORAL BID, ( Reported) Omeprazole Magnesium (Prilosec Otc), 40 MG ORAL DAILY, (Reported) Pantoprazole* (Pantoprazole*), 40 MG ORAL DAILY, (Reported) Ranitidine Hcl* (Zantac*), 150 MG ORAL TWICE A DAY, (Reported) Simvastatin (Zocor), 20 MG ORAL BEDTIME, (Reported) Solifenacin Succinate (Vesicare*), 10 MG ORAL HS, (Reported) Tamsulosin Hcl (Tamsulosin Hcl*), 0.4 MG ORAL DAILY, (Reported) Temazepam* (Restoril*), 7.5 MG ORAL BEDTIME, (Reported) Scheduled PRN Acetaminophen (Acetaminophen), 650 MG ORAL Q6H PRN for Prn Headache/Temp > 101, (Reported) Lorazepam* (Ativan*), 2 MG ORAL THREE TIMES A DAY PRN for Agitation, (Reported) Lorazepam* (Ativan*), 2 MG PO PRN PRN for Agitation, (Reported) Melatonin (Melatonin), 1 MG PO BEDTIME PRN for Insomnia, (Reported) Miscellaneous Medications Baclofen* (Baclofen*), 10 MG ORAL, (Reported) Hydrocodone Bit/Acetaminophen 10-325* ([place] 10-325*), 1 TAB ORAL, (Reported) Patient History History Provided By: Family Member, Medical Record, PMD Healthcare decision maker Erin Gee dtr Resuscitation status Full Code Advanced Directive on File Yes Past Medical/Surgical History Past Medical/Surgical History: (1) History of pulmonary aspiration (2) Schizophrenia (3) Seizure disorder (4) DVT/PE (5) SVT (supraventricular tachycardia) (6) Dementia Family History Family History: Patient reports no known family medical history. Social History Social History: (1) lives with daughter at home Review of Systems ROS Narrative Unable to obtain as pt intubated and sedated Physical Exam Physical Exam Narrative General: intubated, sedated Head: normocephalic, without obvious abnormality, atraumatic Eyes: conjunctivae/corneas clear. PERRL, EOM's intact Throat: lips, mucosa, and tongue normal. MMM Neck: supple, symmetrical, trachea midline, and no JVD Lungs: +rhonchi, R>L Heart: regular rate and rhythm, S1, S2 normal, no murmur, click, rub or gallop Abdomen: soft, non-tender, non-distended, bowel sounds normal Extremities: extremities normal, atraumatic, no cyanosis or edema Pulses: 2+ and symmetric Skin: skin color, texture, turgor normal; no rashes or lesions Neurologic: VASQUEZ Last 24 Hour Vital Signs Date Time Temp Pulse Resp B/P (MAP) Pulse Ox O2 Delivery O2 Flow Rate FiO2 04/09/17 08:59 68 16 45 04/09/17 08:30 89.5 75 18 125/47 99 Mechanical Ventilator 45 04/09/17 08:00 45 04/09/17 08:00 19 04/09/17 08:00 75 04/09/17 08:00 75 18 125/39 99 Mechanical Ventilator 45 04/09/17 07:56 77 17 Mechanical Ventilator 45 04/09/17 07:48 80 18 45 04/09/17 07:30 78 18 132/45 99 Mechanical Ventilator 45 04/09/17 07:00 18 04/09/17 07:00 80 19 130/40 98 Mechanical Ventilator 45 04/09/17 06:30 80 19 128/50 98 Mechanical Ventilator 45 04/09/17 06:00 66 15 134/46 99 Mechanical Ventilator 45 04/09/17 06:00 18 04/09/17 05:30 98.9 74 15 134/44 100 Mechanical Ventilator 45 04/09/17 05:28 75 17 45 04/09/17 05:00 98 14 138/43 95 Mechanical Ventilator 45 04/09/17 05:00 14 04/09/17 04:30 63 14 143/43 99 Mechanical Ventilator 45 04/09/17 04:00 45 04/09/17 04:00 64 04/09/17 04:00 73 14 139/50 99 Mechanical Ventilator 45 04/09/17 04:00 20 04/09/17 03:49 79 19 45 04/09/17 03:30 63 14 140/45 99 Mechanical Ventilator 45 04/09/17 03:00 68 14 122/36 100 Mechanical Ventilator 45 04/09/17 03:00 18 04/09/17 02:30 99.0 75 14 111/28 100 Mechanical Ventilator 45 04/09/17 02:15 20 04/09/17 02:00 99.9 73 16 127/49 100 Mechanical Ventilator 4.0 45 04/09/17 01:54 99.9 04/09/17 01:50 99.9 73 16 127/49 100 Mechanical Ventilator 4.0 45 04/09/17 01:45 99.9 73 16 124/45 100 Mechanical Ventilator 4.0 45 04/09/17 01:40 99.9 73 16 147/40 100 Mechanical Ventilator 4.0 45 04/09/17 01:40 16 04/09/17 01:26 99.9 71 16 144/48 100 Mechanical Ventilator 45 04/09/17 01:25 99.9 72 16 144/50 100 Mechanical Ventilator 45 04/09/17 01:20 99.9 75 16 144/75 100 Mechanical Ventilator 45 04/09/17 01:20 16 04/09/17 01:15 99.9 60 16 141/71 100 Mechanical Ventilator 45 04/09/17 01:01 80 16 45 04/09/17 00:45 99.9 64 16 133/47 100 Mechanical Ventilator 45 04/09/17 00:30 99.9 81 16 130/40 100 Mechanical Ventilator 45 04/09/17 00:25 99.9 83 16 126/54 100 Mechanical Ventilator 45 04/09/17 00:25 16 04/09/17 00:20 99.9 66 16 100/83 100 Mechanical Ventilator 45 04/08/17 23:20 99.9 67 16 119/40 100 Mechanical Ventilator 45 04/08/17 23:11 85 16 45 04/08/17 23:00 99.9 83 16 148/44 100 Mechanical Ventilator 45 04/08/17 22:50 98.1 67 16 113/50 100 Mechanical Ventilator 45 04/08/17 22:45 98.1 69 16 106/43 100 Mechanical Ventilator 45 04/08/17 22:40 98.1 69 16 97/43 100 Mechanical Ventilator 45 04/08/17 22:40 16 04/08/17 22:35 98.1 72 16 101/42 100 Mechanical Ventilator 45 04/08/17 22:30 16 04/08/17 22:30 98.1 74 16 104/32 100 Mechanical Ventilator 45 04/08/17 22:05 16 04/08/17 22:05 98.1 82 16 101/43 100 Mechanical Ventilator 45 04/08/17 22:00 98.1 81 16 92/45 100 Mechanical Ventilator 45 04/08/17 21:55 16 04/08/17 21:55 98.1 85 16 109/43 100 Mechanical Ventilator 45 04/08/17 21:50 98.1 89 16 111/72 100 Mechanical Ventilator 45 04/08/17 21:50 16 04/08/17 21:45 16 04/08/17 21:45 98.1 85 16 118/47 100 Mechanical Ventilator 45 04/08/17 21:44 16 04/08/17 21:44 16 04/08/17 21:37 84 16 45 04/08/17 21:18 45 04/08/17 20:40 80 18 Nasal Cannula 4.0 04/08/17 20:27 98.1 80 18 105/46 95 Nasal Cannula 4.0 Intake and Output 04/09/17 04/10/17 19:00 07:00 Intake Total 112.5 ml Output Total 200 ml Balance -87.5 ml IV Total 112.5 ml Output Urine Total 200 ml Laboratory Tests Test 04/08/17 20:45 04/08/17 21:05 04/08/17 21:23 04/08/17 23:50 Arterial Blood pH 7.315 (7.350-7.450) 7.526 (7.350-7.450) Arterial Blood Partial Pressure CO2 75.3 mmHg (35.0-45.0) *H 39.4 mmHg (35.0-45.0) Arterial Blood Partial Pressure O2 69.3 mmHg (75.0-100.0) L 59.3 mmHg (75.0-100.0) L Arterial Blood HCO3 37.5 mmol/L (22.0-26.0) H 31.9 mmol/L (22.0-26.0) H Arterial Blood Oxygen Saturation 93.2 % (92.0-98.0) 93.2 % (92.0-98.0) Arterial Blood Base Excess 8.8 8.5 Kelvin Test Positive Positive White Blood Count 11.0 K/UL (4.8-10.8) H Red Blood Count 3.38 M/UL (4.20-5.40) L Hemoglobin 10.1 G/DL (12.0-16.0) L Hematocrit 34.4 % (37.0-47.0) L Mean Corpuscular Volume 102 FL (80-99) H Mean Corpuscular Hemoglobin 30.0 PG (27.0-31.0) Mean Corpuscular Hemoglobin Concent 29.4 G/DL (32.0-36.0) L Red Cell Distribution Width 14.8 % (11.6-14.8) Platelet Count 320 K/UL (150-450) Mean Platelet Volume 5.1 FL (6.5-10.1) L Neutrophils (%) (Auto) 61.7 % (45.0-75.0) Lymphocytes (%) (Auto) 21.4 % (20.0-45.0) Monocytes (%) (Auto) 9.4 % (1.0-10.0) Eosinophils (%) (Auto) 7.0 % (0.0-3.0) H Basophils (%) (Auto) 0.5 % (0.0-2.0) Prothrombin Time 13.6 SEC (9.30-11.50) H Prothromb Time International Ratio 1.3 (0.9-1.1) H Activated Partial Thromboplast Time 36 SEC (23-33) H Sodium Level 138 MMOL/L (136-145) Potassium Level 6.0 MMOL/L (3.5-5.1) *H Chloride Level 103 MMOL/L (98-107) Carbon Dioxide Level 33 MMOL/L (21-32) H Anion Gap 2 mmol/L (5-15) L Blood Urea Nitrogen 20 mg/dL (7-18) H Creatinine 1.8 MG/DL (0.55-1.30) H Estimat Glomerular Filtration Rate mL/min (>60) Glucose Level 104 MG/DL (74-106) Lactic Acid Level 0.90 mmol/L (0.66-2.22) Calcium Level 11.6 MG/DL (8.5-10.1) H Magnesium Level 2.0 MG/DL (1.8-2.4) Total Bilirubin 0.2 MG/DL (0.2-1.0) Aspartate Amino Transf (AST/SGOT) 12 U/L (15-37) L Alanine Aminotransferase (ALT/SGPT) 7 U/L (12-78) L Alkaline Phosphatase 85 U/L (46-116) Total Creatine Kinase 21 U/L (26-308) L Troponin I 0.000 ng/mL (0.000-0.056) Pro-B-Type Natriuretic Peptide 742 pg/mL (0-125) H Total Protein 6.9 G/DL (6.4-8.2) Albumin 2.5 G/DL (3.4-5.0) L Globulin 4.4 g/dL Albumin/Globulin Ratio 0.6 (1.0-2.7) L Urine Color Yellow Urine Appearance Cloudy Urine pH 7 (4.5-8.0) Urine Specific [place] 1.010 (1.005-1.035) Urine Protein 1+ (NEGATIVE) H Urine Glucose (UA) Negative (NEGATIVE) Urine Ketones Negative (NEGATIVE) Urine Occult Blood 4+ (NEGATIVE) H Urine Nitrite Negative (NEGATIVE) Urine Bilirubin Negative (NEGATIVE) Urine Urobilinogen Normal MG/DL (0.0-1.0) Urine Leukocyte Esterase 3+ (NEGATIVE) H Urine RBC 10-15 /HPF (0 - 2) H Urine WBC Tntc /HPF (0 - 2) H Urine Squamous Epithelial Cells Few /LPF (NONE/OCC) Urine Bacteria Moderate /HPF (NONE) H Urine Opiates Screen Positive (NEGATIVE) H Urine Barbiturates Screen Negative (NEGATIVE) Phencyclidine (PCP) Screen Negative (NEGATIVE) Urine Amphetamines Screen Negative (NEGATIVE) Urine Benzodiazepines Screen Positive (NEGATIVE) H Urine Cocaine Screen Negative (NEGATIVE) Urine Marijuana (THC) Screen Negative (NEGATIVE) Test 04/09/17 04:30 White Blood Count 12.7 K/UL (4.8-10.8) H Red Blood Count 3.10 M/UL (4.20-5.40) L Hemoglobin 9.8 G/DL (12.0-16.0) L Hematocrit 30.3 % (37.0-47.0) L Mean Corpuscular Volume 98 FL (80-99) Mean Corpuscular Hemoglobin 31.8 PG (27.0-31.0) H Mean Corpuscular Hemoglobin Concent 32.5 G/DL (32.0-36.0) Red Cell Distribution Width 14.5 % (11.6-14.8) Platelet Count 302 K/UL (150-450) Mean Platelet Volume 5.5 FL (6.5-10.1) L Neutrophils (%) (Auto) 62.2 % (45.0-75.0) Lymphocytes (%) (Auto) 23.4 % (20.0-45.0) Monocytes (%) (Auto) 8.8 % (1.0-10.0) Eosinophils (%) (Auto) 5.3 % (0.0-3.0) H Basophils (%) (Auto) 0.3 % (0.0-2.0) Sodium Level 139 MMOL/L (136-145) Potassium Level 4.0 MMOL/L (3.5-5.1) Chloride Level 104 MMOL/L (98-107) Carbon Dioxide Level 29 MMOL/L (21-32) Anion Gap 6 mmol/L (5-15) Blood Urea Nitrogen 19 mg/dL (7-18) H Creatinine 1.3 MG/DL (0.55-1.30) Estimat Glomerular Filtration Rate mL/min (>60) Glucose Level 115 MG/DL (74-106) H Calcium Level 10.7 MG/DL (8.5-10.1) H Height (Feet): 5 Height (Inches): 4.00 Weight (Pounds): 145 Medications Current Medications Medications (Trade) Dose Ordered Sig/Jacque Route PRN Reason Start Time Stop Time Status Last Admin Dose Admin Acetaminophen (Tylenol) 650 mg Q4H PRN ORAL Mild Pain (Pain Scale 1-3) 04/08/17 23:15 05/08/17 23:14 Acetaminophen (Tylenol) 650 mg Q4H PRN RECTAL Mild Pain (Pain Scale 1-3) 04/08/17 23:15 05/08/17 23:14 Albuterol/ Ipratropium (Albuterol/ Ipratropium) 3 ml Q4HR PRN HHN Shortness of Breath 04/08/17 23:15 04/13/17 23:14 Albuterol/ Ipratropium (Albuterol/ Ipratropium) 3 ml Q6HR HHN 04/09/17 00:00 04/14/17 00:00 Dextrose (Dextrose 50%) STAT PRN IV Hypoglycemia 04/08/17 23:15 05/08/17 23:14 Docusate Sodium (Colace) 100 mg EVERY 12 HOURS ORAL 04/09/17 09:00 05/09/17 08:59 04/09/17 09:29 Heparin Sodium (Porcine) (Heparin 5000 units/ml) 5,000 units EVERY 12 HOURS SUBQ 04/09/17 09:00 05/09/17 08:59 04/09/17 09:32 Levothyroxine Sodium (Synthroid) 50 mcg DAILY ORAL 04/09/17 06:30 05/09/17 06:29 04/09/17 07:33 Midazolam HCl 100 ml @ 0 mls/hr Q24H IVPB 04/08/17 21:45 04/15/17 21:44 04/08/17 21:44 Ondansetron HCl (Zofran) 4 mg Q6H PRN IVP Nausea & Vomiting 04/08/17 23:15 05/08/17 23:14 Pantoprazole (Protonix) 40 mg DAILY IV 04/09/17 09:00 05/09/17 08:59 04/09/17 09:29 Piperacillin Sod/ Tazobactam Sod 3.375 gm/Dextrose 110 ml @ 27.5 mls/hr EVERY 8 HOURS IV 04/09/17 06:00 04/16/17 05:59 04/09/17 06:08 Polyethylene Glycol (Miralax) 17 gm DAILYPRN PRN ORAL Constipation 04/08/17 23:15 05/08/17 23:14 Sodium Chloride 1,000 ml @ 75 mls/hr [id number] IVLG 04/09/17 00:09 05/09/17 00:08 04/09/17 02:52 Vancomycin HCl (Vanco rx to dose) 1 ea DAILY PRN MISC Per rx protocol 04/08/17 23:15 05/08/17 23:14 Vancomycin HCl 1 gm/Dextrose 275 ml @ 183.708 mls/hr Q36H IVPB 04/09/17 02:00 04/14/17 01:59 Assessment/Plan Problem List: (1) Acute respiratory failure with hypoxia and hypercapnia ICD Codes: J96.01 - Acute respiratory failure with hypoxia; J96.02 - Acute respiratory failure with hypercapnia SNOMED: 57708126, 74803293, 436196012 (2) Sepsis ICD Codes: A41.9 - Sepsis, unspecified organism SNOMED: 94834998 (3) Aspiration pneumonia ICD Codes: J69.0 - Pneumonitis due to inhalation of food and vomit SNOMED: 113638012 Qualifiers: Qualified Codes: J69.0 - Pneumonitis due to inhalation of food and vomit (4) Toxic metabolic encephalopathy ICD Codes: G92 - Toxic encephalopathy SNOMED: 674625162 (5) Hyperkalemia ICD Codes: E87.5 - Hyperkalemia SNOMED: 15466795 (6) JUJU (acute kidney injury) ICD Codes: N17.9 - Acute kidney failure, unspecified SNOMED: 41497275 (7) UTI (lower urinary tract infection) ICD Codes: N39.0 - UTI (lower urinary tract infection) SNOMED: 9599816 (8) Dementia ICD Codes: F03.90 - Dementia SNOMED: 03409764 (9) Schizophrenia ICD Codes: F20.9 - Schizophrenia, unspecified SNOMED: 36210119 (10) Seizure disorder ICD Codes: G40.909 - Epilepsy, unspecified, not intractable, without status epilepticus SNOMED: 543514710 Status: stable Assessment/Plan Admit to ICU Pulmonary and ID consulted Broad-spectrum abx: vanco and zosyn (04/08-) F/u cultures Cont on vent and wean as tolerated Trend ABG Monitor CXR IVFs given JUJU s/p kayexylate for hyperkalemia Monitor CBC, BMP Start tube feeds via NGT GI consulted as daughter now states she wants PEG given recurrent aspiration PNA Hold Eliquis given plan for PEG Cont other home meds including depakote Pain control, supportive care, bowel regimen HSQ, SCDs for DVT ppx PPI At the time of my involvement, the patient's condition was critical with high potential for and/or physiologic deterioration secondary to acute respiratory failure 2/2 aspiration pneumonia, sepsis, acute encephalopathy as delineated in the note above. On the above date of service, I spent a total of 52 minutes in the ICU evaluating, managing, and providing critical care services to this patient, including time spent documenting these activities, counseling patient/family, and coordinating care. Critical care services performed include: Telemetry Review Hemodynamic measurement interpretation Laboratory data review and interpretation Ventilator setting review, management, and adjustment Discussion of care plans with patient, family, and/or surrogate decision makers Discussion of patient's care with primary medical team, surgical team, and/or consulting service Decision to obtain further radiologic evaluation, after consideration of risk/ benefit ratio Decision to perform invasive procedure, after consideration of risk/benefit ratio Review of most recent microbiology results with assessment and modification of antimicrobial coverage Discussion of patient's code status and further advancement towards the ultimate goals of care Plan outlined above discussed with patient/family, MANAGER NICU, 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 D/w pt's daughter regarding plan of care D/w ID re abx FULL CODE per discussion w/ daughter Time of note may not reflect time of encounter. Prachi Mejia M.D. Apr 09, 2017 09:36
--- NOTE | 2017-04-09 10:01 | Pulmonolgy Critical Care Note ---
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, 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 - Objective Last 24 Hour Vital Signs Date Time Temp Pulse Resp B/P (MAP) Pulse Ox O2 Delivery O2 Flow Rate FiO2 04/09/17 08:59 68 16 45 04/09/17 08:30 89.5 75 18 125/47 99 Mechanical Ventilator 45 04/09/17 08:00 45 04/09/17 08:00 19 04/09/17 08:00 75 04/09/17 08:00 75 18 125/39 99 Mechanical Ventilator 45 04/09/17 07:56 77 17 Mechanical Ventilator 45 04/09/17 07:48 80 18 45 04/09/17 07:30 78 18 132/45 99 Mechanical Ventilator 45 04/09/17 07:00 18 04/09/17 07:00 80 19 130/40 98 Mechanical Ventilator 45 04/09/17 06:30 80 19 128/50 98 Mechanical Ventilator 45 04/09/17 06:00 66 15 134/46 99 Mechanical Ventilator 45 04/09/17 06:00 18 04/09/17 05:30 98.9 74 15 134/44 100 Mechanical Ventilator 45 04/09/17 05:28 75 17 45 04/09/17 05:00 98 14 138/43 95 Mechanical Ventilator 45 04/09/17 05:00 14 04/09/17 04:30 63 14 143/43 99 Mechanical Ventilator 45 04/09/17 04:00 45 04/09/17 04:00 64 04/09/17 04:00 73 14 139/50 99 Mechanical Ventilator 45 04/09/17 04:00 20 04/09/17 03:49 79 19 45 04/09/17 03:30 63 14 140/45 99 Mechanical Ventilator 45 04/09/17 03:00 68 14 122/36 100 Mechanical Ventilator 45 04/09/17 03:00 18 04/09/17 02:30 99.0 75 14 111/28 100 Mechanical Ventilator 45 04/09/17 02:15 20 04/09/17 02:00 99.9 73 16 127/49 100 Mechanical Ventilator 4.0 45 04/09/17 01:54 99.9 04/09/17 01:50 99.9 73 16 127/49 100 Mechanical Ventilator 4.0 45 04/09/17 01:45 99.9 73 16 124/45 100 Mechanical Ventilator 4.0 45 04/09/17 01:40 99.9 73 16 147/40 100 Mechanical Ventilator 4.0 45 04/09/17 01:40 16 04/09/17 01:26 99.9 71 16 144/48 100 Mechanical Ventilator 45 04/09/17 01:25 99.9 72 16 144/50 100 Mechanical Ventilator 45 04/09/17 01:20 99.9 75 16 144/75 100 Mechanical Ventilator 45 04/09/17 01:20 16 04/09/17 01:15 99.9 60 16 141/71 100 Mechanical Ventilator 45 04/09/17 01:01 80 16 45 04/09/17 00:45 99.9 64 16 133/47 100 Mechanical Ventilator 45 04/09/17 00:30 99.9 81 16 130/40 100 Mechanical Ventilator 45 04/09/17 00:25 99.9 83 16 126/54 100 Mechanical Ventilator 45 04/09/17 00:25 16 04/09/17 00:20 99.9 66 16 100/83 100 Mechanical Ventilator 45 04/08/17 23:20 99.9 67 16 119/40 100 Mechanical Ventilator 45 04/08/17 23:11 85 16 45 04/08/17 23:00 99.9 83 16 148/44 100 Mechanical Ventilator 45 04/08/17 22:50 98.1 67 16 113/50 100 Mechanical Ventilator 45 04/08/17 22:45 98.1 69 16 106/43 100 Mechanical Ventilator 45 04/08/17 22:40 98.1 69 16 97/43 100 Mechanical Ventilator 45 04/08/17 22:40 16 04/08/17 22:35 98.1 72 16 101/42 100 Mechanical Ventilator 45 04/08/17 22:30 16 04/08/17 22:30 98.1 74 16 104/32 100 Mechanical Ventilator 45 04/08/17 22:05 16 04/08/17 22:05 98.1 82 16 101/43 100 Mechanical Ventilator 45 04/08/17 22:00 98.1 81 16 92/45 100 Mechanical Ventilator 45 04/08/17 21:55 16 04/08/17 21:55 98.1 85 16 109/43 100 Mechanical Ventilator 45 04/08/17 21:50 98.1 89 16 111/72 100 Mechanical Ventilator 45 04/08/17 21:50 16 04/08/17 21:45 16 04/08/17 21:45 98.1 85 16 118/47 100 Mechanical Ventilator 45 04/08/17 21:44 16 04/08/17 21:44 16 04/08/17 21:37 84 16 45 04/08/17 21:18 45 04/08/17 20:40 80 18 Nasal Cannula 4.0 04/08/17 20:27 98.1 80 18 105/46 95 Nasal Cannula 4.0 Status: sedated Condition: critical HEENT: atraumatic Neck: full ROM Lungs: clear Heart: HR/BP stable, regular Abdomen: non-tender, active bowel sounds Extremities: no C/C/E, edema Accucheck: 105 Critical Care - Subjective ROS Limited/Unobtainable: Yes ICU Day: 1 Intubation Day: 1 Interval Events: 86 year old female with hx of Pulmonary HTN, SDH, Seizures, HLD, PSVT, Anemia, BLE DVTs, Asthma, Alzheimer's, recent aspriation pneumonia brought in by paramedics with CC of ALOC and Fever of 101. Pt was in respiratory failure and was intubated in ER and transferred to ICU. Currently pt is intubated and sedated. EKG Rhythm: Sinus Rhythm FI02: 45 Vent Support Breath Rate: 16 Vent Support Mode: AC Vent Tidal Volume: 550 Sputum Amount: Moderate PEEP: 0.0 PIP: 22 Fluids: NS 75 cc/hour I&O: Intake and Output 04/09/17 04/10/17 19:00 07:00 Intake Total 112.5 ml Output Total 200 ml Balance -87.5 ml IV Total 112.5 ml Output Urine Total 200 ml CXR: RLL , ET in good position ET-Tube: 7.5 ET Position: 22 Labs: Laboratory Tests Test 04/08/17 20:45 04/08/17 21:05 04/08/17 21:23 04/08/17 23:50 Arterial Blood pH 7.315 (7.350-7.450) 7.526 (7.350-7.450) Arterial Blood Partial Pressure CO2 75.3 mmHg (35.0-45.0) *H 39.4 mmHg (35.0-45.0) Arterial Blood Partial Pressure O2 69.3 mmHg (75.0-100.0) L 59.3 mmHg (75.0-100.0) L Arterial Blood HCO3 37.5 mmol/L (22.0-26.0) H 31.9 mmol/L (22.0-26.0) H Arterial Blood Oxygen Saturation 93.2 % (92.0-98.0) 93.2 % (92.0-98.0) Arterial Blood Base Excess 8.8 8.5 Kelvin Test Positive Positive White Blood Count 11.0 K/UL (4.8-10.8) H Red Blood Count 3.38 M/UL (4.20-5.40) L Hemoglobin 10.1 G/DL (12.0-16.0) L Hematocrit 34.4 % (37.0-47.0) L Mean Corpuscular Volume 102 FL (80-99) H Mean Corpuscular Hemoglobin 30.0 PG (27.0-31.0) Mean Corpuscular Hemoglobin Concent 29.4 G/DL (32.0-36.0) L Red Cell Distribution Width 14.8 % (11.6-14.8) Platelet Count 320 K/UL (150-450) Mean Platelet Volume 5.1 FL (6.5-10.1) L Neutrophils (%) (Auto) 61.7 % (45.0-75.0) Lymphocytes (%) (Auto) 21.4 % (20.0-45.0) Monocytes (%) (Auto) 9.4 % (1.0-10.0) Eosinophils (%) (Auto) 7.0 % (0.0-3.0) H Basophils (%) (Auto) 0.5 % (0.0-2.0) Prothrombin Time 13.6 SEC (9.30-11.50) H Prothromb Time International Ratio 1.3 (0.9-1.1) H Activated Partial Thromboplast Time 36 SEC (23-33) H Sodium Level 138 MMOL/L (136-145) Potassium Level 6.0 MMOL/L (3.5-5.1) *H Chloride Level 103 MMOL/L (98-107) Carbon Dioxide Level 33 MMOL/L (21-32) H Anion Gap 2 mmol/L (5-15) L Blood Urea Nitrogen 20 mg/dL (7-18) H Creatinine 1.8 MG/DL (0.55-1.30) H Estimat Glomerular Filtration Rate mL/min (>60) Glucose Level 104 MG/DL (74-106) Lactic Acid Level 0.90 mmol/L (0.66-2.22) Calcium Level 11.6 MG/DL (8.5-10.1) H Magnesium Level 2.0 MG/DL (1.8-2.4) Total Bilirubin 0.2 MG/DL (0.2-1.0) Aspartate Amino Transf (AST/SGOT) 12 U/L (15-37) L Alanine Aminotransferase (ALT/SGPT) 7 U/L (12-78) L Alkaline Phosphatase 85 U/L (46-116) Total Creatine Kinase 21 U/L (26-308) L Troponin I 0.000 ng/mL (0.000-0.056) Pro-B-Type Natriuretic Peptide 742 pg/mL (0-125) H Total Protein 6.9 G/DL (6.4-8.2) Albumin 2.5 G/DL (3.4-5.0) L Globulin 4.4 g/dL Albumin/Globulin Ratio 0.6 (1.0-2.7) L Urine Color Yellow Urine Appearance Cloudy Urine pH 7 (4.5-8.0) Urine Specific [place] 1.010 (1.005-1.035) Urine Protein 1+ (NEGATIVE) H Urine Glucose (UA) Negative (NEGATIVE) Urine Ketones Negative (NEGATIVE) Urine Occult Blood 4+ (NEGATIVE) H Urine Nitrite Negative (NEGATIVE) Urine Bilirubin Negative (NEGATIVE) Urine Urobilinogen Normal MG/DL (0.0-1.0) Urine Leukocyte Esterase 3+ (NEGATIVE) H Urine RBC 10-15 /HPF (0 - 2) H Urine WBC Tntc /HPF (0 - 2) H Urine Squamous Epithelial Cells Few /LPF (NONE/OCC) Urine Bacteria Moderate /HPF (NONE) H Urine Opiates Screen Positive (NEGATIVE) H Urine Barbiturates Screen Negative (NEGATIVE) Phencyclidine (PCP) Screen Negative (NEGATIVE) Urine Amphetamines Screen Negative (NEGATIVE) Urine Benzodiazepines Screen Positive (NEGATIVE) H Urine Cocaine Screen Negative (NEGATIVE) Urine Marijuana (THC) Screen Negative (NEGATIVE) Test 04/09/17 04:30 White Blood Count 12.7 K/UL (4.8-10.8) H Red Blood Count 3.10 M/UL (4.20-5.40) L Hemoglobin 9.8 G/DL (12.0-16.0) L Hematocrit 30.3 % (37.0-47.0) L Mean Corpuscular Volume 98 FL (80-99) Mean Corpuscular Hemoglobin 31.8 PG (27.0-31.0) H Mean Corpuscular Hemoglobin Concent 32.5 G/DL (32.0-36.0) Red Cell Distribution Width 14.5 % (11.6-14.8) Platelet Count 302 K/UL (150-450) Mean Platelet Volume 5.5 FL (6.5-10.1) L Neutrophils (%) (Auto) 62.2 % (45.0-75.0) Lymphocytes (%) (Auto) 23.4 % (20.0-45.0) Monocytes (%) (Auto) 8.8 % (1.0-10.0) Eosinophils (%) (Auto) 5.3 % (0.0-3.0) H Basophils (%) (Auto) 0.3 % (0.0-2.0) Sodium Level 139 MMOL/L (136-145) Potassium Level 4.0 MMOL/L (3.5-5.1) Chloride Level 104 MMOL/L (98-107) Carbon Dioxide Level 29 MMOL/L (21-32) Anion Gap 6 mmol/L (5-15) Blood Urea Nitrogen 19 mg/dL (7-18) H Creatinine 1.3 MG/DL (0.55-1.30) Estimat Glomerular Filtration Rate mL/min (>60) Glucose Level 115 MG/DL (74-106) H Calcium Level 10.7 MG/DL (8.5-10.1) H ZARRABI,MIRALI Apr 09, 2017 10:01
[2017-04-09] MEDS ORDERED: Promethazine/Codeine 5ml UD ORAL PRN (10:15)
--- NOTE | 2017-04-09 10:32 | Diagnostic Imaging Report ---
Indication: Shortness of breath Technique: One view of the chest Comparison: 11/29/2014 Findings: There is there are development of consolidation in the right perihilar region. There is also some atelectasis. Perihilar bronchial wall thickening is seen on the left. The pleural spaces are clear. Heart size is normal. There is evidence of prior T12 vertebral body vertebral augmentation procedure Impression: Right perihilar infiltrate and atelectasis Left perihilar bronchial wall thickening Other findings as noted This agrees with the preliminary interpretation provided by the emergency room physician
[2017-04-09] MEDS: LORazepam Inj 2mg/ml 1ml IV PRN (10:40)
[2017-04-09] MEDS: Miralax 17gm pkt ORAL PRN (10:40)
--- NOTE | 2017-04-09 10:41 | Diagnostic Imaging Report ---
Indication: Status post intubation and line placement Technique: One view of the chest Comparison: 2-1/2 hours earlier Findings: Interim endotracheal intubation, endotracheal tube tip in good position approximately 4 cm above the sara. Interim placement of a left jugular central venous catheter, tip of which projects at the level of the left innominate vein. There is persistent right perihilar infiltrate, left perihilar interstitial prominence, and right perihilar atelectasis. Evidence of T12 prior vertebral augmentation procedure again demonstrated. No pneumothorax Impression: Satisfactory endotracheal intubation Interim left jugular central venous catheter placement, tip in the left innominate vein. No radiographically evident complication This agrees with the preliminary interpretation provided by the emergency room physician
[2017-04-09 10:58] LABS: ABG ALLEN TEST POSITIVE; ABG BASE EXCESS 4.7; ABG PCO2 29.9 mmHg (35.0-45.0)
--- NOTE | 2017-04-09 11:26 | Diagnostic Imaging Report ---
Indication: Post nasogastric tube placement Technique: Supine view of the abdomen Comparison: none Findings: There is a nasogastric tube in place, tip projected at the level gastric fundus, proximal port just beyond the expected level of the gastroesophageal junction. Bowel gas pattern is unremarkable. There is evidence of prior T12 vertebral augmentation procedure Impression: Satisfactory nasogastric intubation Other findings as noted This agrees with the preliminary interpretation provided by the emergency room physician
[2017-04-09] MEDS: NovoLOG Insulin Flexpen SUBQ SCH ×3 (11:30→21:00)
--- NOTE | 2017-04-09 11:31 | GI Initial Consult Note ---
Yvonne Grace NAndrew 04/09/17 1130: History of Present Illness General Date patient seen: Apr 09, 2017 Time patient seen: 11:23 Reason for Hospitalization: Dyspnea/Respdistress Referring physician: SABINO CIFUENTES Reason for Consultation: PEG EVALUATION Present Illness HPI Patient with ALOC and alleged x-ray with aspiration pneumonia. Daughter states extremely dehydrated as not taking PO well. Fever 101. Keflex "didn't work" and levaquin begun. Treatment recently for aspiration [facility]. No intubation required. Presented similarly with ALOC. H/O dementia. Problems with swallowing. No food or fluids 24 hours. On eliquis BID. Macrobid for UTI prophylaxis. GI consulted for PEG evaluation. HPI noted above. Pt seen in ICU, ROS limited , intubated current with NGTFs. Presents today with leukocytosis and anemia. Noted patient is on Eliquis. Unknown history of endoscopic / colonoscopies. Home Meds Active Scripts Acyclovir* (ZOVIRAX*) 800 Mg Tablet, 800 MG ORAL Q8HR for 7 Days, TAB Prov:Prachi Mejia M.D. 07/14/16 Divalproex Sodium (Depakote) 500 Mg Tablet., 500 MG ORAL EVERY 12 HOURS, #60 TAB Prov:Prachi Mejia M.D. 07/14/16 Nitrofurantoin Macrocrystal (NITROFURANTOIN) 100 Mg Capsule, 100 MG PO BID for 30 Days, CAP Prov:SABINO SRINIVASAN 12/03/14 Metoprolol Succinate* (TOPROL XL*) 100 Mg Tabcr, 200 MG ORAL DAILY for 30 Days, TAB Prov:ROSA LUCIA [employer]BILE MECH[employer]IC 08/04/14 Reported Medications Amiodarone Hcl* (AMIODARONE HCL*) 400 Mg Tablet, ORAL EVERY 12 HOURS, TAB 04/08/17 Lorazepam* (ATIVAN*) 2 Mg/1 Ml Vial, 2 MG PO PRN Y for Agitation, VIAL 04/08/17 Memantine Hcl* (NAMENDA*) 10 Mg Tablet, 10 MG ORAL TWICE A DAY, TAB 04/08/17 Olanzapine* (ZYPREXA*) 10 Mg Tablet, 10 MG ORAL DAILY, #30 TAB 0 Refills 04/08/17 Omeprazole Magnesium (PRILOSEC OTC) 20 Mg Tablet.dr, 40 MG ORAL DAILY, TAB 04/08/17 Baclofen* (BACLOFEN*) 10 Mg Tablet, 10 MG ORAL, TAB 04/08/17 Hydrocodone Bit/Acetaminophen 10-325* (NORCO 10-325*) 1 Each Tablet, 1 TAB ORAL , TAB 0 Refills PRN PAIN 04/08/17 Divalproex Sodium (DEPAKOTE SPRINKLE) 125 Mg Cap.sprink, 125 MG PO BID, CAP 04/08/17 Nitrofurantoin Monohyd/M-Cryst* (MACROBID 100 MG*) 100 Mg Capsule, ORAL EVERY 12 HOURS, CAP 04/08/17 Tamsulosin Hcl (TAMSULOSIN HCL*) 0.4 Mg Cap.er.24h, 0.4 MG ORAL DAILY, CAP 04/08/17 Apixaban (ELIQUIS) 5 Mg Tablet, 5 MG PO BID, TAB 04/08/17 Ranitidine Hcl* (ZANTAC*) 150 Mg Tablet, 150 MG ORAL TWICE A DAY, TAB 07/12/16 Temazepam* (RESTORIL*) 7.5 Mg Capsule, 7.5 MG ORAL BEDTIME, #10 CAP 0 Refills 07/12/16 Melatonin (MELATONIN) 1 Mg Tab.subl, 1 MG PO BEDTIME Y for Insomnia, TAB 07/12/16 Lorazepam* (LORAZEPAM*) 1 Mg Tablet, 1 MG ORAL THREE TIMES A DAY, TAB 07/12/16 Levothyroxine Sodium* (LEVOTHYROXINE SODIUM*) 50 Mcg Tablet, 50 MCG ORAL DAILY, TAB Take in the morning on an empty stomach, at least 30 minutes before food. 07/12/16 Lactobacillus Cmb#7/Fos/Inulin (PROBIOTIC COMPLEX TABLET) 1 Each Tablet, PO DAILY, TAB 07/12/16 Ferrous Sulfate* (FERROUS SULFATE*) 325 Mg Tablet, 325 MG ORAL DAILY, #30 TAB 0 Refills 07/12/16 Ergocalciferol (Vitamin D2)* (VITAMIN D*) 50,000 Unit Capsule, 49840 UNIT ORAL ONCE A WEEK, CAP 07/12/16 Ca Carbonate/Vitamin D3/Vit K (CALCIUM + D SOFT CHEWABLE TAB) 1 Each Tab.chew, 1 EACH PO DAILY, TAB 07/12/16 Bisacodyl* (DULCOLAX*) 5 Mg Tablet.dr, 10 MG RECTAL ONCE, #4 TAB 0 Refills 07/12/16 Aspirin* (ECOTRIN*) 325 Mg Tablet.dr, 81 MG ORAL DAILY, TAB 07/12/16 Nitrofurantoin Monohyd/M-Cryst (Nitrofurantoin [place]-Mcr 100 mg) 100 Mg Cap, 100 MG ORAL BID for 5 Days, CAP 12/04/14 Acetaminophen (Acetaminophen) 650 Mg/20.3 Ml Soln, 650 MG ORAL Q6H Y for Prn Headache/Temp > 101, ML 0 Refills 07/30/14 Olanzapine* (ZYPREXA*) 5 Mg Tablet, 5 MG ORAL HS, TAB 07/30/14 Lorazepam* (ATIVAN*) 2 Mg Tablet, 2 MG ORAL THREE TIMES A DAY Y for Agitation, TAB 07/30/14 Fluvoxamine Maleate (Fluvoxamine Maleate) 50 Mg Tab, 50 MG ORAL BID, #10 TAB 0 Refills 07/30/14 Solifenacin Succinate (VESICARE*) 10 Mg Tablet, 10 MG ORAL HS, TAB 07/30/14 Simvastatin (ZOCOR) 20 Mg Tablet, 20 MG ORAL BEDTIME, TAB 07/30/14 Lidocaine (Lidocaine) 700 Mg Adh..patch, 1400 MG TP DAILY, PATCH 07/30/14 Memantine Hcl* (NAMENDA*) 10 Mg Tablet, 10 MG ORAL TWICE A DAY, TAB 07/30/14 Docusate Sodium* (DOCUSATE SODIUM*) 100 Mg Capsule, 100 MG ORAL TWICE A DAY, CAP 07/30/14 [place]-3 Fatty Acids/Fish Oil (FISH OIL 1,000 MG CAPSULE) 1 Each Capsule, 1 CAP ORAL BID, #30 CAP 0 Refills 07/30/14 Acidophilus/Bulgaricus (FLORANEX TABLET) 1 Each Tablet, 1 EACH PO BID, TAB 07/30/14 Pantoprazole* (PANTOPRAZOLE*) 40 Mg Tablet.dr, 40 MG ORAL DAILY, TAB 07/30/14 Calcitonin,[place],Synthetic (CALCITONIN-SALMON) 3.7 Ml Blomkest.pump, 3.7 ML NS DAILY 07/30/14 Donepezil Hcl* (ARICEPT*) 10 Mg Tablet, 10 MG ORAL DAILY, TAB 07/30/14 Multivitamin With Minerals (MULTIVITAMINS WITH MINERALS*) 1 Each Tablet, 1 TAB ORAL DAILY, TAB 07/30/14 Med list reviewed/reconciled: Yes Allergies: Coded Allergies: NO KNOWN DRUG ALLERGIES (Unverified Allergy, Unknown, 07/29/14) Patient History PMH Narrative Admitting dx June 2016: Pulmonary HTN, SDH, Seizure d/o, HLD, PSVT, Anemia, BLE DVTs, Chronic back pain , Asthma, Anxiety, Alzheimer's, recurrent UTIs, CVA Limited by: medical condition Past Medical History: see triage record, old chart reviewed Social History Narrative daughter POA - cared for at home Last Menstrual Period: NA Now: No Reviewed Nursing Documentation: PMH: Agreed, PSxH: Agreed Nursing Documentation-PMH Hx Cardiac Problems: Yes Hx Hypertension: Yes Hx Diabetes: Yes Hx Cancer: No Hx Dementia: Yes Hx Alzheimer's Disease: Yes Hx Seizures: Yes Review of Systems All Other Systems: limited Physical Exam Vital Signs Date Time Temp Pulse Resp B/P (MAP) Pulse Ox O2 Delivery O2 Flow Rate FiO2 04/08/17 20:27 98.1 80 18 105/46 95 Nasal Cannula 4.0 04/08/17 21:18 45 Sp02 EP Interpretation: reviewed Labs Laboratory Tests Test 04/08/17 20:45 04/08/17 21:05 04/08/17 21:23 04/08/17 23:50 Arterial Blood pH 7.315 (7.350-7.450) 7.526 (7.350-7.450) Arterial Blood Partial Pressure CO2 75.3 mmHg (35.0-45.0) *H 39.4 mmHg (35.0-45.0) Arterial Blood Partial Pressure O2 69.3 mmHg (75.0-100.0) L 59.3 mmHg (75.0-100.0) L Arterial Blood HCO3 37.5 mmol/L (22.0-26.0) H 31.9 mmol/L (22.0-26.0) H Arterial Blood Oxygen Saturation 93.2 % (92.0-98.0) 93.2 % (92.0-98.0) Arterial Blood Base Excess 8.8 8.5 Kelvin Test Positive Positive White Blood Count 11.0 K/UL (4.8-10.8) H Red Blood Count 3.38 M/UL (4.20-5.40) L Hemoglobin 10.1 G/DL (12.0-16.0) L Hematocrit 34.4 % (37.0-47.0) L Mean Corpuscular Volume 102 FL (80-99) H Mean Corpuscular Hemoglobin 30.0 PG (27.0-31.0) Mean Corpuscular Hemoglobin Concent 29.4 G/DL (32.0-36.0) L Red Cell Distribution Width 14.8 % (11.6-14.8) Platelet Count 320 K/UL (150-450) Mean Platelet Volume 5.1 FL (6.5-10.1) L Neutrophils (%) (Auto) 61.7 % (45.0-75.0) Lymphocytes (%) (Auto) 21.4 % (20.0-45.0) Monocytes (%) (Auto) 9.4 % (1.0-10.0) Eosinophils (%) (Auto) 7.0 % (0.0-3.0) H Basophils (%) (Auto) 0.5 % (0.0-2.0) Prothrombin Time 13.6 SEC (9.30-11.50) H Prothromb Time International Ratio 1.3 (0.9-1.1) H Activated Partial Thromboplast Time 36 SEC (23-33) H Sodium Level 138 MMOL/L (136-145) Potassium Level 6.0 MMOL/L (3.5-5.1) *H Chloride Level 103 MMOL/L (98-107) Carbon Dioxide Level 33 MMOL/L (21-32) H Anion Gap 2 mmol/L (5-15) L Blood Urea Nitrogen 20 mg/dL (7-18) H Creatinine 1.8 MG/DL (0.55-1.30) H Estimat Glomerular Filtration Rate mL/min (>60) Glucose Level 104 MG/DL (74-106) Lactic Acid Level 0.90 mmol/L (0.66-2.22) Calcium Level 11.6 MG/DL (8.5-10.1) H Magnesium Level 2.0 MG/DL (1.8-2.4) Total Bilirubin 0.2 MG/DL (0.2-1.0) Aspartate Amino Transf (AST/SGOT) 12 U/L (15-37) L Alanine Aminotransferase (ALT/SGPT) 7 U/L (12-78) L Alkaline Phosphatase 85 U/L (46-116) Total Creatine Kinase 21 U/L (26-308) L Troponin I 0.000 ng/mL (0.000-0.056) Pro-B-Type Natriuretic Peptide 742 pg/mL (0-125) H Total Protein 6.9 G/DL (6.4-8.2) Albumin 2.5 G/DL (3.4-5.0) L Globulin 4.4 g/dL Albumin/Globulin Ratio 0.6 (1.0-2.7) L Urine Color Yellow Urine Appearance Cloudy Urine pH 7 (4.5-8.0) Urine Specific [place] 1.010 (1.005-1.035) Urine Protein 1+ (NEGATIVE) H Urine Glucose (UA) Negative (NEGATIVE) Urine Ketones Negative (NEGATIVE) Urine Occult Blood 4+ (NEGATIVE) H Urine Nitrite Negative (NEGATIVE) Urine Bilirubin Negative (NEGATIVE) Urine Urobilinogen Normal MG/DL (0.0-1.0) Urine Leukocyte Esterase 3+ (NEGATIVE) H Urine RBC 10-15 /HPF (0 - 2) H Urine WBC Tntc /HPF (0 - 2) H Urine Squamous Epithelial Cells Few /LPF (NONE/OCC) Urine Bacteria Moderate /HPF (NONE) H Urine Opiates Screen Positive (NEGATIVE) H Urine Barbiturates Screen Negative (NEGATIVE) Phencyclidine (PCP) Screen Negative (NEGATIVE) Urine Amphetamines Screen Negative (NEGATIVE) Urine Benzodiazepines Screen Positive (NEGATIVE) H Urine Cocaine Screen Negative (NEGATIVE) Urine Marijuana (THC) Screen Negative (NEGATIVE) Test 04/09/17 04:30 04/09/17 10:40 White Blood Count 12.7 K/UL (4.8-10.8) H Red Blood Count 3.10 M/UL (4.20-5.40) L Hemoglobin 9.8 G/DL (12.0-16.0) L Hematocrit 30.3 % (37.0-47.0) L Mean Corpuscular Volume 98 FL (80-99) Mean Corpuscular Hemoglobin 31.8 PG (27.0-31.0) H Mean Corpuscular Hemoglobin Concent 32.5 G/DL (32.0-36.0) Red Cell Distribution Width 14.5 % (11.6-14.8) Platelet Count 302 K/UL (150-450) Mean Platelet Volume 5.5 FL (6.5-10.1) L Neutrophils (%) (Auto) 62.2 % (45.0-75.0) Lymphocytes (%) (Auto) 23.4 % (20.0-45.0) Monocytes (%) (Auto) 8.8 % (1.0-10.0) Eosinophils (%) (Auto) 5.3 % (0.0-3.0) H Basophils (%) (Auto) 0.3 % (0.0-2.0) Sodium Level 139 MMOL/L (136-145) Potassium Level 4.0 MMOL/L (3.5-5.1) Chloride Level 104 MMOL/L (98-107) Carbon Dioxide Level 29 MMOL/L (21-32) Anion Gap 6 mmol/L (5-15) Blood Urea Nitrogen 19 mg/dL (7-18) H Creatinine 1.3 MG/DL (0.55-1.30) Estimat Glomerular Filtration Rate mL/min (>60) Glucose Level 115 MG/DL (74-106) H Calcium Level 10.7 MG/DL (8.5-10.1) H Arterial Blood pH 7.560 (7.350-7.450) Arterial Blood Partial Pressure CO2 29.9 mmHg (35.0-45.0) L Arterial Blood Partial Pressure O2 114.1 mmHg (75.0-100.0) H Arterial Blood HCO3 26.6 mmol/L (22.0-26.0) H Arterial Blood Oxygen Saturation 98.3 % (92.0-98.0) H Arterial Blood Base Excess 4.7 Kelvin Test Positive General Appearance: mild distress EENT: PERRL/EOMI Neck: supple Respiratory: other - intubated Cardiovascular: normal rate Gastrointestinal: ngt Rectal: deferred Skin: normal color, no rash Lymphatic: normal inspection, no adenopathy Current Medications Current Medications Medications (Trade) Dose Ordered Sig/Jacque Route PRN Reason Start Time Stop Time Status Last Admin Dose Admin Acetaminophen (Tylenol) 650 mg Q4H PRN ORAL Mild Pain (Pain Scale 1-3) 04/08/17 23:15 05/08/17 23:14 Acetaminophen (Tylenol) 650 mg Q4H PRN RECTAL Mild Pain (Pain Scale 1-3) 04/08/17 23:15 05/08/17 23:14 Albuterol/ Ipratropium (Albuterol/ Ipratropium) 3 ml Q4HR PRN HHN Shortness of Breath 04/08/17 23:15 04/13/17 23:14 Albuterol/ Ipratropium (Albuterol/ Ipratropium) 3 ml Q6HR HHN 04/09/17 00:00 04/14/17 00:00 Dextrose (Dextrose 50%) STAT PRN IV Hypoglycemia 04/08/17 23:15 05/08/17 23:14 Docusate Sodium (Colace) 100 mg EVERY 12 HOURS ORAL 04/09/17 09:00 05/09/17 08:59 04/09/17 09:29 Heparin Sodium (Porcine) (Heparin 5000 units/ml) 5,000 units EVERY 12 HOURS SUBQ 04/09/17 09:00 05/09/17 08:59 04/09/17 09:32 Insulin Aspart (NovoLOG) BEFORE MEALS AND HS SUBQ 04/09/17 11:30 05/09/17 11:29 Levothyroxine Sodium (Synthroid) 50 mcg DAILY ORAL 04/09/17 06:30 05/09/17 06:29 04/09/17 07:33 Lorazepam (Ativan 2mg/ml 1ml) 2 mg Q4H PRN IV For Anxiety 04/09/17 10:15 04/16/17 10:14 04/09/17 10:40 Morphine Sulfate (Morphine Sulfate) 4 mg Q4H PRN IVP For Pain 04/09/17 10:15 04/16/17 10:14 Ondansetron HCl (Zofran) 4 mg Q6H PRN IVP Nausea & Vomiting 04/08/17 23:15 05/08/17 23:14 Pantoprazole (Protonix) 40 mg DAILY IV 04/09/17 09:00 05/09/17 08:59 04/09/17 09:29 Piperacillin Sod/ Tazobactam Sod 3.375 gm/Dextrose 55 ml @ 13.75 mls/ hr EVERY 8 HOURS IV 04/09/17 14:00 04/16/17 05:59 Polyethylene Glycol (Miralax) 17 gm DAILYPRN PRN ORAL Constipation 04/08/17 23:15 05/08/17 23:14 04/09/17 10:40 Promethazine HCl/ Codeine (Phenergan with Codeine) 5 ml Q4H PRN ORAL For Cough 04/09/17 10:15 05/09/17 10:14 Sodium Chloride 1,000 ml @ 75 mls/hr [id number] IVLG 04/09/17 00:09 05/09/17 00:08 04/09/17 02:52 Vancomycin HCl (Vanco rx to dose) 1 ea DAILY PRN MISC Per rx protocol 04/08/17 23:15 05/08/17 23:14 Vancomycin HCl 1 gm/Dextrose 275 ml @ 183.708 mls/hr Q36H IVPB 04/09/17 02:00 04/14/17 01:59 GI: Plan Problems: (1) Anemia (2) Encounter for PEG (percutaneous endoscopic gastrostomy) (3) Dementia (4) Acute encephalopathy (5) Aspiration pneumonia Plan daughter agrees to PEG, tentative schedule for Sunday. NGTFs per dietary hold Eliquis (must be stopped minimum 48-72 hours prior any GI procedure) >> cont heparin anemia work up OB stool r/o GI bleed monitor H&H, prn transfusions bowel regime ppi fu labs Discussed with Dr. Radford. Thank you for this patient referral, we will follow. BESSY RADFORD 04/11/17 0839: History of Present Illness General Reason for Hospitalization: Dyspnea/Respdistress Present Illness Home Meds Active Scripts Acyclovir* (ZOVIRAX*) 800 Mg Tablet, 800 MG ORAL Q8HR for 7 Days, TAB Prov:Prachi Mejia M.D. 07/14/16 Divalproex Sodium (Depakote) 500 Mg Tablet., 500 MG ORAL EVERY 12 HOURS, #60 TAB Prov:Prachi Mejia M.D. 07/14/16 Nitrofurantoin Macrocrystal (NITROFURANTOIN) 100 Mg Capsule, 100 MG PO BID for 30 Days, CAP Prov:SABINO SRINIVASAN 12/03/14 Metoprolol Succinate* (TOPROL XL*) 100 Mg Tabcr, 200 MG ORAL DAILY for 30 Days, TAB Prov:ROSA LUCIA NP 08/04/14 Reported Medications Amiodarone Hcl* (AMIODARONE HCL*) 400 Mg Tablet, ORAL EVERY 12 HOURS, TAB 04/08/17 Lorazepam* (ATIVAN*) 2 Mg/1 Ml Vial, 2 MG PO PRN Y for Agitation, VIAL 04/08/17 Memantine Hcl* (NAMENDA*) 10 Mg Tablet, 10 MG ORAL TWICE A DAY, TAB 04/08/17 Olanzapine* (ZYPREXA*) 10 Mg Tablet, 10 MG ORAL DAILY, #30 TAB 0 Refills 04/08/17 Omeprazole Magnesium (PRILOSEC OTC) 20 Mg Tablet.dr, 40 MG ORAL DAILY, TAB 04/08/17 Baclofen* (BACLOFEN*) 10 Mg Tablet, 10 MG ORAL, TAB 04/08/17 Hydrocodone Bit/Acetaminophen 10-325* (NORCO 10-325*) 1 Each Tablet, 1 TAB ORAL , TAB 0 Refills PRN PAIN 04/08/17 Divalproex Sodium (DEPAKOTE SPRINKLE) 125 Mg Cap.sprink, 125 MG PO BID, CAP 04/08/17 Nitrofurantoin Monohyd/M-Cryst* (MACROBID 100 MG*) 100 Mg Capsule, ORAL EVERY 12 HOURS, CAP 04/08/17 Tamsulosin Hcl (TAMSULOSIN HCL*) 0.4 Mg Cap.er.24h, 0.4 MG ORAL DAILY, CAP 04/08/17 Apixaban (ELIQUIS) 5 Mg Tablet, 5 MG PO BID, TAB 04/08/17 Ranitidine Hcl* (ZANTAC*) 150 Mg Tablet, 150 MG ORAL TWICE A DAY, TAB 07/12/16 Temazepam* (RESTORIL*) 7.5 Mg Capsule, 7.5 MG ORAL BEDTIME, #10 CAP 0 Refills 07/12/16 Melatonin (MELATONIN) 1 Mg Tab.subl, 1 MG PO BEDTIME Y for Insomnia, TAB 07/12/16 Lorazepam* (LORAZEPAM*) 1 Mg Tablet, 1 MG ORAL THREE TIMES A DAY, TAB 07/12/16 Levothyroxine Sodium* (LEVOTHYROXINE SODIUM*) 50 Mcg Tablet, 50 MCG ORAL DAILY, TAB Take in the morning on an empty stomach, at least 30 minutes before food. 07/12/16 Lactobacillus Cmb#7/Fos/Inulin (PROBIOTIC COMPLEX TABLET) 1 Each Tablet, PO DAILY, TAB 07/12/16 Ferrous Sulfate* (FERROUS SULFATE*) 325 Mg Tablet, 325 MG ORAL DAILY, #30 TAB 0 Refills 07/12/16 Ergocalciferol (Vitamin D2)* (VITAMIN D*) 50,000 Unit Capsule, 34770 UNIT ORAL ONCE A WEEK, CAP 07/12/16 Ca Carbonate/Vitamin D3/Vit K (CALCIUM + D SOFT CHEWABLE TAB) 1 Each Tab.chew, 1 EACH PO DAILY, TAB 07/12/16 Bisacodyl* (DULCOLAX*) 5 Mg Tablet.dr, 10 MG RECTAL ONCE, #4 TAB 0 Refills 07/12/16 Aspirin* (ECOTRIN*) 325 Mg Tablet.dr, 81 MG ORAL DAILY, TAB 07/12/16 Nitrofurantoin Monohyd/M-Cryst (Nitrofurantoin [place]-Mcr 100 mg) 100 Mg Cap, 100 MG ORAL BID for 5 Days, CAP 12/04/14 Acetaminophen (Acetaminophen) 650 Mg/20.3 Ml Soln, 650 MG ORAL Q6H Y for Prn Headache/Temp > 101, ML 0 Refills 07/30/14 Olanzapine* (ZYPREXA*) 5 Mg Tablet, 5 MG ORAL HS, TAB 07/30/14 Lorazepam* (ATIVAN*) 2 Mg Tablet, 2 MG ORAL THREE TIMES A DAY Y for Agitation, TAB 07/30/14 Fluvoxamine Maleate (Fluvoxamine Maleate) 50 Mg Tab, 50 MG ORAL BID, #10 TAB 0 Refills 07/30/14 Solifenacin Succinate (VESICARE*) 10 Mg Tablet, 10 MG ORAL HS, TAB 07/30/14 Simvastatin (ZOCOR) 20 Mg Tablet, 20 MG ORAL BEDTIME, TAB 07/30/14 Lidocaine (Lidocaine) 700 Mg Adh..patch, 1400 MG TP DAILY, PATCH 07/30/14 Memantine Hcl* (NAMENDA*) 10 Mg Tablet, 10 MG ORAL TWICE A DAY, TAB 07/30/14 Docusate Sodium* (DOCUSATE SODIUM*) 100 Mg Capsule, 100 MG ORAL TWICE A DAY, CAP 07/30/14 [place]-3 Fatty Acids/Fish Oil (FISH OIL 1,000 MG CAPSULE) 1 Each Capsule, 1 CAP ORAL BID, #30 CAP 0 Refills 07/30/14 Acidophilus/[place] (FLORANEX TABLET) 1 Each Tablet, 1 EACH PO BID, TAB 07/30/14 Pantoprazole* (PANTOPRAZOLE*) 40 Mg Tablet.dr, 40 MG ORAL DAILY, TAB 07/30/14 Calcitonin,[place],Synthetic (CALCITONIN-SALMON) 3.7 Ml Blomkest.pump, 3.7 ML NS DAILY 07/30/14 Donepezil Hcl* (ARICEPT*) 10 Mg Tablet, 10 MG ORAL DAILY, TAB 07/30/14 Multivitamin With Minerals (MULTIVITAMINS WITH MINERALS*) 1 Each Tablet, 1 TAB ORAL DAILY, TAB 07/30/14 Allergies: Coded Allergies: NO KNOWN DRUG ALLERGIES (Unverified Allergy, Unknown, 07/29/14) GI: Plan Plan The patient was seen and examined at bedside and all new and available data was reviewed in the patients chart. I agree with the above findings, impression and plan. (Patient seen earlier today. Signature stamp does not reflect patient encounter time.). - MD Lesly Cristobal Anh Austin Larry Apr 09, 2017 11:30 BESSY RADFORD Apr 11, 2017 08:39
--- NOTE | 2017-04-09 12:22 | Infectious Diseases Prog Note ---
Assessment/Plan Assessment/Plan Full consult dictated: A) 1) aspiration pna, sepsis, fevers, leukocytosis, respiratory failure 2) pmh noted 3) allergies - negative P) 1) zosyn and vancomycin 2) check sputum culture, labs and chest x-ray 3) thanks Subjective Allergies: Coded Allergies: NO KNOWN DRUG ALLERGIES (Unverified Allergy, Unknown, 07/29/14) Objective Vital Signs Last 24 Hour Vital Signs Date Time Temp Pulse Resp B/P (MAP) Pulse Ox O2 Delivery O2 Flow Rate FiO2 04/09/17 12:00 98.4 84 18 91/42 98 Mechanical Ventilator 35 04/09/17 11:43 45 04/09/17 11:43 79 14 98 Mechanical Ventilator 45 04/09/17 11:40 79 14 45 04/09/17 11:10 45 04/09/17 11:00 81 18 105/48 98 Mechanical Ventilator 45 04/09/17 10:00 77 18 106/48 99 Mechanical Ventilator 45 04/09/17 09:00 74 18 114/35 99 Mechanical Ventilator 45 04/09/17 08:59 68 16 45 04/09/17 08:30 89.5 75 18 125/47 99 Mechanical Ventilator 45 04/09/17 08:00 45 04/09/17 08:00 19 04/09/17 08:00 75 04/09/17 08:00 75 18 125/39 99 Mechanical Ventilator 45 04/09/17 07:56 77 17 Mechanical Ventilator 45 04/09/17 07:48 80 18 45 04/09/17 07:30 78 18 132/45 99 Mechanical Ventilator 45 04/09/17 07:00 18 04/09/17 07:00 80 19 130/40 98 Mechanical Ventilator 45 04/09/17 06:30 80 19 128/50 98 Mechanical Ventilator 45 04/09/17 06:00 66 15 134/46 99 Mechanical Ventilator 45 04/09/17 06:00 18 04/09/17 05:30 98.9 74 15 134/44 100 Mechanical Ventilator 45 04/09/17 05:28 75 17 45 04/09/17 05:00 98 14 138/43 95 Mechanical Ventilator 45 04/09/17 05:00 14 04/09/17 04:30 63 14 143/43 99 Mechanical Ventilator 45 04/09/17 04:00 45 04/09/17 04:00 64 04/09/17 04:00 73 14 139/50 99 Mechanical Ventilator 45 04/09/17 04:00 20 04/09/17 03:49 79 19 45 04/09/17 03:30 63 14 140/45 99 Mechanical Ventilator 45 04/09/17 03:00 68 14 122/36 100 Mechanical Ventilator 45 04/09/17 03:00 18 04/09/17 02:30 99.0 75 14 111/28 100 Mechanical Ventilator 45 04/09/17 02:15 20 04/09/17 02:00 99.9 73 16 127/49 100 Mechanical Ventilator 4.0 45 04/09/17 01:54 99.9 04/09/17 01:50 99.9 73 16 127/49 100 Mechanical Ventilator 4.0 45 04/09/17 01:45 99.9 73 16 124/45 100 Mechanical Ventilator 4.0 45 04/09/17 01:40 99.9 73 16 147/40 100 Mechanical Ventilator 4.0 45 04/09/17 01:40 16 04/09/17 01:26 99.9 71 16 144/48 100 Mechanical Ventilator 45 04/09/17 01:25 99.9 72 16 144/50 100 Mechanical Ventilator 45 04/09/17 01:20 99.9 75 16 144/75 100 Mechanical Ventilator 45 04/09/17 01:20 16 04/09/17 01:15 99.9 60 16 141/71 100 Mechanical Ventilator 45 04/09/17 01:01 80 16 45 04/09/17 00:45 99.9 64 16 133/47 100 Mechanical Ventilator 45 04/09/17 00:30 99.9 81 16 130/40 100 Mechanical Ventilator 45 04/09/17 00:25 99.9 83 16 126/54 100 Mechanical Ventilator 45 04/09/17 00:25 16 04/09/17 00:20 99.9 66 16 100/83 100 Mechanical Ventilator 45 04/08/17 23:20 99.9 67 16 119/40 100 Mechanical Ventilator 45 04/08/17 23:11 85 16 45 04/08/17 23:00 99.9 83 16 148/44 100 Mechanical Ventilator 45 04/08/17 22:50 98.1 67 16 113/50 100 Mechanical Ventilator 45 04/08/17 22:45 98.1 69 16 106/43 100 Mechanical Ventilator 45 04/08/17 22:40 98.1 69 16 97/43 100 Mechanical Ventilator 45 04/08/17 22:40 16 04/08/17 22:35 98.1 72 16 101/42 100 Mechanical Ventilator 45 04/08/17 22:30 16 04/08/17 22:30 98.1 74 16 104/32 100 Mechanical Ventilator 45 04/08/17 22:05 16 04/08/17 22:05 98.1 82 16 101/43 100 Mechanical Ventilator 45 04/08/17 22:00 98.1 81 16 92/45 100 Mechanical Ventilator 45 04/08/17 21:55 16 04/08/17 21:55 98.1 85 16 109/43 100 Mechanical Ventilator 45 04/08/17 21:50 98.1 89 16 111/72 100 Mechanical Ventilator 45 04/08/17 21:50 16 04/08/17 21:45 16 04/08/17 21:45 98.1 85 16 118/47 100 Mechanical Ventilator 45 04/08/17 21:44 16 04/08/17 21:44 16 04/08/17 21:37 84 16 45 04/08/17 21:18 45 04/08/17 20:40 80 18 Nasal Cannula 4.0 04/08/17 20:27 98.1 80 18 105/46 95 Nasal Cannula 4.0 Height (Feet): 5 Height (Inches): 4.00 Weight (Pounds): 145 Laboratory Tests Test 04/08/17 20:45 04/08/17 21:05 04/08/17 21:23 04/08/17 23:50 Arterial Blood pH 7.315 (7.350-7.450) 7.526 (7.350-7.450) Arterial Blood Partial Pressure CO2 75.3 mmHg (35.0-45.0) *H 39.4 mmHg (35.0-45.0) Arterial Blood Partial Pressure O2 69.3 mmHg (75.0-100.0) L 59.3 mmHg (75.0-100.0) L Arterial Blood HCO3 37.5 mmol/L (22.0-26.0) H 31.9 mmol/L (22.0-26.0) H Arterial Blood Oxygen Saturation 93.2 % (92.0-98.0) 93.2 % (92.0-98.0) Arterial Blood Base Excess 8.8 8.5 Kelvin Test Positive Positive White Blood Count 11.0 K/UL (4.8-10.8) H Red Blood Count 3.38 M/UL (4.20-5.40) L Hemoglobin 10.1 G/DL (12.0-16.0) L Hematocrit 34.4 % (37.0-47.0) L Mean Corpuscular Volume 102 FL (80-99) H Mean Corpuscular Hemoglobin 30.0 PG (27.0-31.0) Mean Corpuscular Hemoglobin Concent 29.4 G/DL (32.0-36.0) L Red Cell Distribution Width 14.8 % (11.6-14.8) Platelet Count 320 K/UL (150-450) Mean Platelet Volume 5.1 FL (6.5-10.1) L Neutrophils (%) (Auto) 61.7 % (45.0-75.0) Lymphocytes (%) (Auto) 21.4 % (20.0-45.0) Monocytes (%) (Auto) 9.4 % (1.0-10.0) Eosinophils (%) (Auto) 7.0 % (0.0-3.0) H Basophils (%) (Auto) 0.5 % (0.0-2.0) Prothrombin Time 13.6 SEC (9.30-11.50) H Prothromb Time International Ratio 1.3 (0.9-1.1) H Activated Partial Thromboplast Time 36 SEC (23-33) H Sodium Level 138 MMOL/L (136-145) Potassium Level 6.0 MMOL/L (3.5-5.1) *H Chloride Level 103 MMOL/L (98-107) Carbon Dioxide Level 33 MMOL/L (21-32) H Anion Gap 2 mmol/L (5-15) L Blood Urea Nitrogen 20 mg/dL (7-18) H Creatinine 1.8 MG/DL (0.55-1.30) H Estimat Glomerular Filtration Rate mL/min (>60) Glucose Level 104 MG/DL (74-106) Lactic Acid Level 0.90 mmol/L (0.66-2.22) Calcium Level 11.6 MG/DL (8.5-10.1) H Magnesium Level 2.0 MG/DL (1.8-2.4) Total Bilirubin 0.2 MG/DL (0.2-1.0) Aspartate Amino Transf (AST/SGOT) 12 U/L (15-37) L Alanine Aminotransferase (ALT/SGPT) 7 U/L (12-78) L Alkaline Phosphatase 85 U/L (46-116) Total Creatine Kinase 21 U/L (26-308) L Troponin I 0.000 ng/mL (0.000-0.056) Pro-B-Type Natriuretic Peptide 742 pg/mL (0-125) H Total Protein 6.9 G/DL (6.4-8.2) Albumin 2.5 G/DL (3.4-5.0) L Globulin 4.4 g/dL Albumin/Globulin Ratio 0.6 (1.0-2.7) L Urine Color Yellow Urine Appearance Cloudy Urine pH 7 (4.5-8.0) Urine Specific Baxter 1.010 (1.005-1.035) Urine Protein 1+ (NEGATIVE) H Urine Glucose (UA) Negative (NEGATIVE) Urine Ketones Negative (NEGATIVE) Urine Occult Blood 4+ (NEGATIVE) H Urine Nitrite Negative (NEGATIVE) Urine Bilirubin Negative (NEGATIVE) Urine Urobilinogen Normal MG/DL (0.0-1.0) Urine Leukocyte Esterase 3+ (NEGATIVE) H Urine RBC 10-15 /HPF (0 - 2) H Urine WBC Tntc /HPF (0 - 2) H Urine Squamous Epithelial Cells Few /LPF (NONE/OCC) Urine Bacteria Moderate /HPF (NONE) H Urine Opiates Screen Positive (NEGATIVE) H Urine Barbiturates Screen Negative (NEGATIVE) Phencyclidine (PCP) Screen Negative (NEGATIVE) Urine Amphetamines Screen Negative (NEGATIVE) Urine Benzodiazepines Screen Positive (NEGATIVE) H Urine Cocaine Screen Negative (NEGATIVE) Urine Marijuana (THC) Screen Negative (NEGATIVE) Test 04/09/17 04:30 04/09/17 10:40 White Blood Count 12.7 K/UL (4.8-10.8) H Red Blood Count 3.10 M/UL (4.20-5.40) L Hemoglobin 9.8 G/DL (12.0-16.0) L Hematocrit 30.3 % (37.0-47.0) L Mean Corpuscular Volume 98 FL (80-99) Mean Corpuscular Hemoglobin 31.8 PG (27.0-31.0) H Mean Corpuscular Hemoglobin Concent 32.5 G/DL (32.0-36.0) Red Cell Distribution Width 14.5 % (11.6-14.8) Platelet Count 302 K/UL (150-450) Mean Platelet Volume 5.5 FL (6.5-10.1) L Neutrophils (%) (Auto) 62.2 % (45.0-75.0) Lymphocytes (%) (Auto) 23.4 % (20.0-45.0) Monocytes (%) (Auto) 8.8 % (1.0-10.0) Eosinophils (%) (Auto) 5.3 % (0.0-3.0) H Basophils (%) (Auto) 0.3 % (0.0-2.0) Sodium Level 139 MMOL/L (136-145) Potassium Level 4.0 MMOL/L (3.5-5.1) Chloride Level 104 MMOL/L (98-107) Carbon Dioxide Level 29 MMOL/L (21-32) Anion Gap 6 mmol/L (5-15) Blood Urea Nitrogen 19 mg/dL (7-18) H Creatinine 1.3 MG/DL (0.55-1.30) Estimat Glomerular Filtration Rate mL/min (>60) Glucose Level 115 MG/DL (74-106) H Calcium Level 10.7 MG/DL (8.5-10.1) H Arterial Blood pH 7.560 (7.350-7.450) Arterial Blood Partial Pressure CO2 29.9 mmHg (35.0-45.0) L Arterial Blood Partial Pressure O2 114.1 mmHg (75.0-100.0) H Arterial Blood HCO3 26.6 mmol/L (22.0-26.0) H Arterial Blood Oxygen Saturation 98.3 % (92.0-98.0) H Arterial Blood Base Excess 4.7 Kelvin Test Positive Current Medications Medications (Trade) Dose Ordered Sig/Jacque Route PRN Reason Start Time Stop Time Status Last Admin Dose Admin Acetaminophen (Tylenol) 650 mg Q4H PRN ORAL Mild Pain (Pain Scale 1-3) 04/08/17 23:15 05/08/17 23:14 Acetaminophen (Tylenol) 650 mg Q4H PRN RECTAL Mild Pain (Pain Scale 1-3) 04/08/17 23:15 05/08/17 23:14 Albuterol/ Ipratropium (Albuterol/ Ipratropium) 3 ml Q4HR PRN HHN Shortness of Breath 04/08/17 23:15 04/13/17 23:14 Albuterol/ Ipratropium (Albuterol/ Ipratropium) 3 ml Q6HR HHN 04/09/17 00:00 04/14/17 00:00 04/09/17 11:24 Dextrose (Dextrose 50%) STAT PRN IV Hypoglycemia 04/08/17 23:15 05/08/17 23:14 Docusate Sodium (Colace) 100 mg EVERY 12 HOURS ORAL 04/09/17 09:00 05/09/17 08:59 04/09/17 09:29 Heparin Sodium (Porcine) (Heparin 5000 units/ml) 5,000 units EVERY 12 HOURS SUBQ 04/09/17 09:00 05/09/17 08:59 04/09/17 09:32 Insulin Aspart (NovoLOG) BEFORE MEALS AND HS SUBQ 04/09/17 11:30 05/09/17 11:29 Levothyroxine Sodium (Synthroid) 50 mcg DAILY ORAL 04/09/17 06:30 05/09/17 06:29 04/09/17 07:33 Lorazepam (Ativan 2mg/ml 1ml) 2 mg Q4H PRN IV For Anxiety 04/09/17 10:15 04/16/17 10:14 04/09/17 10:40 Morphine Sulfate (Morphine Sulfate) 4 mg Q4H PRN IVP For Pain 04/09/17 10:15 04/16/17 10:14 Ondansetron HCl (Zofran) 4 mg Q6H PRN IVP Nausea & Vomiting 04/08/17 23:15 05/08/17 23:14 Pantoprazole (Protonix) 40 mg DAILY IV 04/09/17 09:00 05/09/17 08:59 04/09/17 09:29 Piperacillin Sod/ Tazobactam Sod 3.375 gm/Dextrose 55 ml @ 13.75 mls/ hr EVERY 8 HOURS IV 04/09/17 14:00 04/16/17 05:59 Polyethylene Glycol (Miralax) 17 gm DAILYPRN PRN ORAL Constipation 04/08/17 23:15 05/08/17 23:14 04/09/17 10:40 Promethazine HCl/ Codeine (Phenergan with Codeine) 5 ml Q4H PRN ORAL For Cough 04/09/17 10:15 05/09/17 10:14 Sodium Chloride 1,000 ml @ 75 mls/hr [id number] IVLG 04/09/17 00:09 05/09/17 00:08 04/09/17 02:52 Vancomycin HCl (Vanco rx to dose) 1 ea DAILY PRN MISC Per rx protocol 04/08/17 23:15 05/08/17 23:14 Vancomycin HCl 1 gm/Dextrose 275 ml @ 183.708 mls/hr Q36H IVPB 04/09/17 02:00 04/14/17 01:59 TIERA PRADO Apr 09, 2017 12:21
--- NOTE | 2017-04-09 13:07 | Wound Care Consultation ---
Wound Assessment Wound Assessment #1: Wound Number: 1 Wound Present on Admission: Yes New Wound: No Status Change of Wound: No Wound Location Body Site Modif: mid Wound Location Body Site: other - Sacrococcygeal Wound Type: pressure ulcer Rock Test: Does not Rock Pressure Ulcer Stage: Deep Tissue Injury Wound Thickness: Full Thickness Wound Length: 4.0 Wound Width: 4.0 Wound Depth: utd Percent of Wound Purple/Maroon: 100 Wound Drainage Amount: None Wound Drainage Odor: None/Absent Tissue Surrounding Wound: IAD Wound General Appearance: Reddened - purple Wound Assessment #2: Wound Number: 2 Wound Present on Admission: Yes New Wound: No Status Change of Wound: No Wound Location Body Site Modif: left, right Wound Location Body Site: buttocks Wound Type: pressure ulcer Rock Test: Does not Rock Pressure Ulcer Stage: Deep Tissue Injury - scattered Wound Thickness: Full Thickness Percent of Wound Purple/Maroon: 100 Wound Drainage Amount: None Wound Drainage Odor: None/Absent Tissue Surrounding Wound: IAD Wound General Appearance: Reddened - Purple Wound Assessment #3: Wound Number: 3 Wound Present on Admission: Yes New Wound: No Status Change of Wound: No Wound Location Body Site: perineal area Wound Type: other - IAD Rock Test: Does not Rock Percent of Wound Norphlet/Red: 100 Wound Drainage Amount: None Wound Drainage Odor: None/Absent Tissue Surrounding Wound: Erythemic Wound General Appearance: Reddened Wound Assessment #4: Wound Number: 4 Wound Present on Admission: Yes New Wound: No Status Change of Wound: No Wound Location Body Site Modif: lower Wound Location Body Site: back Wound Type: rash Rock Test: Does not Rock Percent of Wound Norphlet/Red: 100 Wound Drainage Amount: None Wound Drainage Odor: None/Absent Tissue Surrounding Wound: Intact Wound General Appearance: Reddened Wound Comment #1 Sacrococcygeal DTI pressure ulcer. Surrounding skin with Incontinent associated dermatitis #2 Left and right buttock scattered stage DTI pressure ulcer. Surrounding skin with Incontinent associated dermatitis #3 Rash on lower back area #4 Right 1st and 2nd toe scattered dry scabs #5 Right lateral leg open wound etiology unknown Recommendation -Local wound care per protocol -Keep clean and dry -Optimize nutrition -Turn and reposition -Offload both heels -Heel protector on both heels -Low air loss mattress -Assess and f/u according for any changes NILDA MEREDITH RN Apr 09, 2017 13:07
[2017-04-09] MEDS ORDERED: Depakote 125mg Sprinkles NG SCH (14:30)
[2017-04-09] MEDS: Piperacillin/Tazobactam 3.375 GM in D5W 55 ML IV SCH ×2 (15:17→21:44)
[2017-04-09] MEDS: Valproic Acid 250mg/5ml Liquid GT SCH (17:08)
--- NOTE | 2017-04-09 19:22 | Cardiology Report ---
APPROVED REPORT EKG Measurement Heart [id number] Normal sinus rhythm Low voltage QRS Borderline ECG
[2017-04-09] MEDS: Docusate 100mg/10ml Liq GT SCH (21:21)
[2017-04-10] VITALS (24 sets, daily range): BP systolic 94–154; BP diastolic 30–58
[2017-04-10] MEDS: Albuterol/Ipratropium 3ml neb HHN SCH ×4 (01:06→19:35)
--- NOTE | 2017-04-10 04:00 | Consultation ---
DATE OF CONSULTATION: 04/09/2017 INFECTIOUS DISEASES CONSULTATION CONSULTING PHYSICIAN: Agusto Orr M.D. REFERRING PHYSICIAN: María Bustamante M.D. I was asked by Dr. Velarde to see this patient. REASON FOR CONSULTATION: Aspiration pneumonia, sepsis, fevers, and leukocytosis. CHIEF COMPLAINT: The patient's chief complaint coming in to the hospital is respiratory failure. The patient is currently in the intensive care unit on a vent and shortness of breath and sepsis. HISTORY OF PRESENT ILLNESS: This is an 86-year-old female, currently is in the [place] ICU on a vent. She is not on pressors. She has elevated white count, fevers, and likely septic. She also has pneumonia in the right upper, looks like perihilar region. On discussion with the patient's daughter, the patient was eating and then she got short of breath after eating. An Infectious Diseases consultation was requested for antibiotic management. The patient was placed on vancomycin and Zosyn, and sputum culture has been ordered. MAR was noted. Orders were noted. Notes and records were reviewed. Case was discussed with RN. PAST MEDICAL HISTORY: The patient has a past medical history of the following. The patient has a past medical history of dementia, encephalopathy, and diabetes mellitus. The patient has a history of pulmonary hypertension, I believe subdural hematoma, history of seizures, history of hyperlipidemia, paroxysmal supraventricular tachycardia, anemia, history of DVT, chronic back pain, asthma, anxiety, Alzheimer's, recurrent urinary tract infection, CVA, hypertension, and diabetes. She has a history of cardiac disease, dementia, and seizures. MEDICATIONS: Upon reviewing the MAR, she is on the following medications. She is on Zosyn, insulin, lorazepam, morphine, promethazine, heparin, pantoprazole, docusate, and levothyroxine. She is on vancomycin, Zosyn, albuterol treatments, IV fluids, acetaminophen, polyethylene glycol, and Zofran. Outside medications were noted and reconciled. ALLERGIES: No known drug allergies. FAMILY HISTORY: Noncontributory per the record. Negative for exposure to tuberculosis or cancer. SOCIAL HISTORY: Negative for smoking, alcohol, or drug abuse. REVIEW OF SYSTEMS: CONSTITUTIONAL: She has a Camacho. She has generalized weakness and fatigue. She is poorly responsive. HEAD AND NECK: She is orally intubated. CARDIAC: No pressors. Again, no pressors, and the satellite project site monitor was noted. Heart monitor was noted and reviewed. GASTROINTESTINAL: No nausea, vomiting, or diarrhea. GENITOURINARY: She has a Camacho. PULMONARY: On a vent. Some secretions. SKIN: No rash or itching. EXTREMITIES: No extremity pain. NEUROLOGICAL: No seizures. She has generalized weakness and fatigue. No fevers currently. PHYSICAL EXAMINATION: VITAL SIGNS: Temperature maximum was 99.9, currently temperature is 98.4, pulse rate 84, respiratory rate 18, blood pressure 91/42, and saturation 98%. Heart rate is 84 at this point. She is in respiratory failure, on a vent. GENERAL: On a vent. No pressors. In respiratory failure, poorly responsive. HEAD AND NECK: Oral exam, no thrush. Eye exam, no icterus. Normocephalic. LUNGS: Bilateral rhonchi and rales, especially on the right. HEART: Regular. No obvious gallop or murmur. ABDOMEN: Soft. Positive bowel sounds. Nontender. SKIN: No rash. MUSCULOSKELETAL: No effusions. Legs are without cellulitis. PERIPHERAL VASCULAR: No cyanosis. GENITOURINARY: She has Camacho. Urine is slightly cloudy. LINE SITES: Line sites without phlebitis. NEUROLOGIC: Generalized weakness. Poorly responsive. LABORATORY AND DIAGNOSTIC DATA: Laboratory data is as follows. UA, 3+ leukocyte esterase, too many to count white blood cells, and moderate bacteria. Creatinine is 1.3. White count as high as 12.7 and hemoglobin 9.8. Urinalysis, 3+ leukocyte esterase and too many to count white blood cells. Urine culture is pending. Sputum culture is pending. Chest x-ray showed right hilar infiltrate and atelectasis. ASSESSMENT AND PLAN: 1. The patient has sepsis, systemic inflammatory response syndrome criteria, respiratory failure, fevers, and elevated white count of 12. Most likely source of sepsis is urinary tract infection and aspiration pneumonia based on clinical history. At this time, we will continue antibiotics, vancomycin and Zosyn. Check urine culture, sputum culture, laboratories, and chest x-ray. Continue vancomycin and Zosyn for sepsis, pneumonia, and treatment, pending workup. Watch leukocytosis. Watch fevers. Continue vent support and pressor support in the intensive care unit. Case discussed with RN at length. 2. The patient has a history of hypertension. 3. Diabetes. 4. Hypothyroidism. 5. Hyperlipidemia. 6. Blood sugar and blood pressure control per primary. 7. Subdural hematoma. 8. Seizure history. 9. Paroxysmal supraventricular tachycardia history. 10. Anemia. 11. Deep venous thrombosis. 12. Chronic back pain. 13. Asthma. 14. Anxiety. 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 16. History of urinary tract infections. 17. History of cerebrovascular accident. 18. Aspiration risk. 19. Allergies are negative. 20. Family history is noncontributory. 21. MAR is noted. 22. Social history is negative. 23. Case was discussed with RN. 24. Continue treatment per primary consultants. 25. Skin care protocol. 26. ICU care. Agusto Orr M.D. DR: REG JOB#: [id number] CC:
[2017-04-10] MEDS: LORazepam Inj 2mg/ml 1ml IV PRN ×2 (04:20→19:57)
[2017-04-10] MEDS: Piperacillin/Tazobactam 3.375 GM in D5W 55 ML IV SCH ×3 (05:45→21:34)
[2017-04-10] MEDS: NovoLOG Insulin Flexpen SUBQ SCH ×4 (05:46→23:57)
[2017-04-10 05:50] LABS: BASOPHILS % (AUTO) 0.6 % (0.0-2.0); EOSINOPHILS % (AUTO) 6.7 % (0.0-3.0); LYMPHOCYTES % (AUTO) 37.1 % (20.0-45.0); MEAN CORPUSCULAR HEMOGLOBIN 32.5 PG (27.0-31.0); MEAN CORPUSCULAR HGB CONC 33.5 G/DL (32.0-36.0); MEAN CORPUSCULAR VOLUME 97 FL (80-99); MEAN PLATELET VOLUME 5.4 FL (6.5-10.1); MONOCYTES % (AUTO) 8.7 % (1.0-10.0); NEUTROPHILS % (AUTO) 46.9 % (45.0-75.0); PLATELET COUNT 322 K/UL (150-450); RED BLOOD COUNT 2.98 M/UL (4.20-5.40); RED CELL DISTRIBUTION WIDTH 14.5 % (11.6-14.8); WHITE BLOOD COUNT 10.9 K/UL (4.8-10.8)
[2017-04-10 06:01] LABS: INR 1.2 (0.9-1.1); PROTHROMBIN TIME 12.2 SEC (9.30-11.50)
[2017-04-10 06:17] LABS: ALANINE AMINOTRANSFERASE 10 U/L (12-78); ALBUMIN/GLOBULIN RATIO 0.5 (1.0-2.7); ANION GAP 6 mmol/L (5-15); ASPARTATE AMINO TRANSFERASE 14 U/L (15-37); CALCIUM 9.9 MG/DL (8.5-10.1); CARBON DIOXIDE 29 MMOL/L (21-32); CHLORIDE 107 MMOL/L (98-107); CREATININE 1.3 MG/DL (0.55-1.30); MAGNESIUM 1.5 MG/DL (1.8-2.4); POTASSIUM 3.1 MMOL/L (3.5-5.1); SODIUM 141 MMOL/L (136-145); TOTAL PROTEIN 5.9 G/DL (6.4-8.2)
[2017-04-10 06:20] LABS: IRON 40 ug/dL (50-175); TOTAL IRON BINDING CAPACITY 175 ug/dL (250-450)
[2017-04-10 06:43] LABS: FOLIC ACID 16.4 NG/ML (8.6-58.9)
[2017-04-10 06:53] LABS: LACTATE DEHYDROGENASE 136 U/L (81-234)
[2017-04-10 07:30] LABS: ERYTHROCYTE SEDIMENTATION RATE 61 MM/HR (0-42); PATH BLOOD SMEAR/OMC SENT TO PATHOLOGIST
[2017-04-10 08:47] LABS: RETICULOCYTE COUNT 1.6 % (0.0-2.0)
[2017-04-10 09:29] LABS: ABG ALLEN TEST POSITIVE; ABG BASE EXCESS 1.9; ABG PCO2 38.2 mmHg (35.0-45.0)
[2017-04-10] MEDS: Pantoprazole Inj IV SCH (09:29)
[2017-04-10] MEDS: Heparin 5000 units/ml inj SUBQ SCH ×2 (09:33→20:57)
[2017-04-10 10:03] LABS: BASOPHILS % (MANUAL) 1 % (0-2); EOSINOPHILS % (MANUAL) 2 % (0-3); LYMPHOCYTES % (MANUAL) 39 % (20-45); NEUTROPHILS % (MANUAL) 52 % (45-75); TOTAL CELLS COUNTED 100
[2017-04-10 10:04] LABS: ANISOCYTOSIS 1+; BAND NEUTROPHILS % (MANUAL) 0 % (0-8); PLATELET ESTIMATE ADEQUATE; PLATELET MORPHOLOGY NORMAL
[2017-04-10] MEDS: Docusate 100mg/10ml Liq GT SCH ×2 (10:12→20:56)
[2017-04-10] MEDS: Valproic Acid 250mg/5ml Liquid GT SCH ×2 (10:12→20:56)
--- NOTE | 2017-04-10 10:56 | Pulmonolgy Critical Care Note ---
Critical Care - Asmt/Plan Problems: (1) Acute respiratory failure (2) Acute encephalopathy (3) Aspiration pneumonia (4) Dementia (5) Diabetes mellitus Respiratory: monitor respiratory rate, adjust FIO2, CXR Cardiac: continue to monitor HR/BP Renal: F/U I&O Infectious Disease: check cultures, continue antibiotics Gastrointestinal: continue feedings/current rate Endocrine: monitor blood sugar, continue sliding scale insulin Hematologic: monitor H/H, transfuse if hgb<8.5 Neurologic: PRN Ativan, keep patient comfortable Affect: PRN ativan Prophylaxis: Heparin Time Spent (Minutes): 40 Notes Reviewed: cardio, renal Discussed with: nurses, consultants, 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 - Objective Last 24 Hour Vital Signs Date Time Temp Pulse Resp B/P (MAP) Pulse Ox O2 Delivery O2 Flow Rate FiO2 04/10/17 10:46 63 14 45 04/10/17 10:00 66 14 94/31 97 Mechanical Ventilator 35 04/10/17 09:17 72 14 45 04/10/17 09:00 73 14 105/32 98 Mechanical Ventilator 35 04/10/17 08:00 35 04/10/17 08:00 98.2 75 14 122/57 98 Mechanical Ventilator 35 04/10/17 08:00 72 04/10/17 07:24 75 14 99 Mechanical Ventilator 35 04/10/17 07:20 75 14 45 04/10/17 07:10 71 14 98 Mechanical Ventilator 04/10/17 07:00 75 14 102/35 98 Mechanical Ventilator 35 04/10/17 06:00 71 14 121/44 99 Mechanical Ventilator 35 04/10/17 05:00 71 16 120/39 97 Mechanical Ventilator 35 04/10/17 04:59 74 15 45 04/10/17 04:17 82 15 98 Mechanical Ventilator 04/10/17 04:16 77 23 97 Mechanical Ventilator 04/10/17 04:00 97.8 64 17 154/58 99 Mechanical Ventilator 35 04/10/17 04:00 64 04/10/17 04:00 35 04/10/17 03:30 76 15 45 04/10/17 03:00 65 16 119/42 99 Mechanical Ventilator 35 04/10/17 02:00 61 15 104/37 97 Mechanical Ventilator 35 04/10/17 01:11 62 14 99 Mechanical Ventilator 35 04/10/17 01:10 58 14 97 Mechanical Ventilator 04/10/17 01:09 58 14 45 04/10/17 01:00 58 15 117/45 99 Mechanical Ventilator 35 04/10/17 00:00 35 04/10/17 00:00 98.1 60 14 109/40 99 Mechanical Ventilator 35 04/10/17 00:00 60 04/09/17 23:30 60 14 45 04/09/17 23:00 63 14 108/37 99 Mechanical Ventilator 35 04/09/17 22:00 69 14 90/30 97 Mechanical Ventilator 35 04/09/17 21:30 62 14 45 04/09/17 21:00 63 14 104/39 97 Mechanical Ventilator 35 04/09/17 20:00 66 04/09/17 20:00 35 04/09/17 20:00 97.9 66 14 108/43 98 Mechanical Ventilator 35 04/09/17 19:45 65 14 99 Mechanical Ventilator 35 04/09/17 19:30 94 16 45 04/09/17 19:30 60 14 98 Mechanical Ventilator 04/09/17 19:30 60 17 Mechanical Ventilator 35 04/09/17 19:00 74 14 85/36 97 Mechanical Ventilator 35 04/09/17 18:00 79 18 105/36 96 Mechanical Ventilator 35 04/09/17 17:00 94 18 122/41 95 Mechanical Ventilator 35 04/09/17 16:51 94 16 45 04/09/17 16:00 35 04/09/17 16:00 99.5 97 18 108/39 94 Mechanical Ventilator 35 04/09/17 16:00 90 04/09/17 15:00 88 18 89/49 94 Mechanical Ventilator 35 04/09/17 14:49 87 14 45 04/09/17 14:00 87 18 93/30 96 Mechanical Ventilator 35 04/09/17 13:03 86 14 45 04/09/17 13:02 87 14 04/09/17 13:00 81 18 90/36 98 Mechanical Ventilator 35 04/09/17 12:00 98.4 84 18 91/42 98 Mechanical Ventilator 35 04/09/17 12:00 35 04/09/17 12:00 82 04/09/17 11:53 79 14 98 Mechanical Ventilator 35 04/09/17 11:43 45 04/09/17 11:43 79 14 98 Mechanical Ventilator 45 04/09/17 11:40 79 14 45 04/09/17 11:10 45 04/09/17 11:00 81 18 105/48 98 Mechanical Ventilator 45 Status: sedated Condition: critical HEENT: atraumatic Neck: full ROM Heart: HR/BP stable, regular Abdomen: soft, non-tender, feeding tube Extremities: edema Micro: Microbiology Date/Time Source Procedure Growth Status 04/08/17 21:05 Blood Blood Culture - Preliminary NO GROWTH AFTER 24 HOURS Resulted 04/08/17 21:00 Blood Blood Culture - Preliminary NO GROWTH AFTER 24 HOURS Resulted 04/08/17 23:50 Nasal Nares MRSA Culture - Final Staphylococcus Aureus - Mrsa Complete 04/08/17 23:50 Urine,Clean Catch Urine Culture - Preliminary NO GROWTH Resulted Accucheck: 113 Critical Care - Subjective ROS Limited/Unobtainable: Yes ICU Day: 3 Intubation Day: 3 Condition: critical EKG Rhythm: Sinus Bradycardia FI02: 45 Vent Support Breath Rate: 14 Vent Support Mode: AC Vent Tidal Volume: 500 Sputum Amount: Moderate PEEP: 0.0 PIP: 19 Fluids: NS 75 Tube Feeding Amount: 55 I&O: Intake and Output 04/10/17 04/11/17 19:00 07:00 Intake Total 385 ml Output Total 130 ml Balance 255 ml IV Total 325 ml Tube Feeding 0 ml Other 60 ml Output Urine Total 130 ml CXR: dense right lower lobe infiltrate ET-Tube: 7.5 ET Position: 22 Labs: Laboratory Tests Test 04/10/17 05:00 04/10/17 09:15 White Blood Count 10.9 K/UL (4.8-10.8) H Red Blood Count 2.98 M/UL (4.20-5.40) L Hemoglobin 9.7 G/DL (12.0-16.0) L Hematocrit 28.8 % (37.0-47.0) L Mean Corpuscular Volume 97 FL (80-99) Mean Corpuscular Hemoglobin 32.5 PG (27.0-31.0) H Mean Corpuscular Hemoglobin Concent 33.5 G/DL (32.0-36.0) Red Cell Distribution Width 14.5 % (11.6-14.8) Platelet Count 322 K/UL (150-450) Mean Platelet Volume 5.4 FL (6.5-10.1) L Neutrophils (%) (Auto) 46.9 % (45.0-75.0) Lymphocytes (%) (Auto) 37.1 % (20.0-45.0) Monocytes (%) (Auto) 8.7 % (1.0-10.0) Eosinophils (%) (Auto) 6.7 % (0.0-3.0) H Basophils (%) (Auto) 0.6 % (0.0-2.0) Differential Total Cells Counted 100 Neutrophils % (Manual) 52 % (45-75) Lymphocytes % (Manual) 39 % (20-45) Monocytes % (Manual) 6 % (1-10) Eosinophils % (Manual) 2 % (0-3) Basophils % (Manual) 1 % (0-2) Band Neutrophils 0 % (0-8) Platelet Estimate Adequate Platelet Morphology Normal Anisocytosis 1+ Erythrocyte Sedimentation Rate 61 MM/HR (0-42) H Reticulocyte Count 1.6 % (0.0-2.0) Prothrombin Time 12.2 SEC (9.30-11.50) H Prothromb Time International Ratio 1.2 (0.9-1.1) H Activated Partial Thromboplast Time 34 SEC (23-33) H Sodium Level 141 MMOL/L (136-145) Potassium Level 3.1 MMOL/L (3.5-5.1) L Chloride Level 107 MMOL/L (98-107) Carbon Dioxide Level 29 MMOL/L (21-32) Anion Gap 6 mmol/L (5-15) Blood Urea Nitrogen 16 mg/dL (7-18) Creatinine 1.3 MG/DL (0.55-1.30) Estimat Glomerular Filtration Rate mL/min (>60) Glucose Level 110 MG/DL (74-106) H Calcium Level 9.9 MG/DL (8.5-10.1) Phosphorus Level 3.0 MG/DL (2.5-4.9) Magnesium Level 1.5 MG/DL (1.8-2.4) L Iron Level 40 ug/dL (50-175) L Total Iron Binding Capacity 175 ug/dL (250-450) L Percent Iron Saturation 23 % (15-50) Unsaturated Iron Binding 135 ug/dL (112-346) Total Bilirubin 0.3 MG/DL (0.2-1.0) Aspartate Amino Transf (AST/SGOT) 14 U/L (15-37) L Alanine Aminotransferase (ALT/SGPT) 10 U/L (12-78) L Alkaline Phosphatase 76 U/L (46-116) Lactate Dehydrogenase 136 U/L (81-234) Total Protein 5.9 G/DL (6.4-8.2) L Albumin 2.0 G/DL (3.4-5.0) L Globulin 3.9 g/dL Albumin/Globulin Ratio 0.5 (1.0-2.7) L Vitamin B12 Level > 2000 PG/ML (193-986) H Folate 16.4 NG/ML (8.6-58.9) Arterial Blood pH 7.450 (7.350-7.450) Arterial Blood Partial Pressure CO2 38.2 mmHg (35.0-45.0) Arterial Blood Partial Pressure O2 89.1 mmHg (75.0-100.0) Arterial Blood HCO3 26.0 mmol/L (22.0-26.0) Arterial Blood Oxygen Saturation 96.2 % (92.0-98.0) Arterial Blood Base Excess 1.9 Kelvin Test Positive DWAYNE CHERY Apr 10, 2017 10:56
[2017-04-10] MEDS: Vancomycin 1gm in D5W 275ml IVPB SCH (13:54)
--- NOTE | 2017-04-10 15:45 | Diagnostic Imaging Report ---
Indication: Reason For Exam: DYSPNEA Technique: One view of the chest Comparison: 04/08/2017 Findings: Stable satisfactory position of endotracheal tube. Interim placement enteric nasogastric tube, tip projected at the level of the gastric fundus, proximal port beyond the gastroesophageal junction. There is increasing hazy opacity in the right lung. There is persistent right lung volume loss. There is persistent perihilar interstitial prominence and bronchial wall thickening. Left jugular central venous catheter remains. Impression: Increasing hazy consolidation of the right lung Satisfactory nasogastric intubation. Patient's nurse was notified of this finding previously Other stable findings as described
[2017-04-10] MEDS ORDERED: NS 500ML ONE (16:36)
--- NOTE | 2017-04-10 18:04 | Infectious Diseases Prog Note ---
Assessment/Plan Assessment/Plan ASSESSMENT AND PLAN: 1. sepsis, leukocytosis, fevers, sirs, pna, uti, respiratory failure - clinically better, fevers and leukocytosis resolved - continue vancomycin and zosyn - check sc, labs, uc, bc and chest x-ray - icu care, vent care, weaning - continue per primary and consultants - d/w Dr. Velarde 2. The patient has a history of hypertension. 3. Diabetes. 4. Hypothyroidism. 5. Hyperlipidemia. 6. Blood sugar and blood pressure control per primary. 7. Subdural hematoma. 8. Seizure history. 9. Paroxysmal supraventricular tachycardia history. 10. Anemia. 11. Deep venous thrombosis. 12. Chronic back pain. 13. Asthma. 14. Anxiety. 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 16. History of urinary tract infections. 17. History of cerebrovascular accident. 18. Aspiration risk. 19. Allergies are negative. 20. Family history is noncontributory. 21. MAR is noted. 22. Social history is negative. 23. Case was discussed with RN. 24. Continue treatment per primary consultants. 25. Skin care protocol. 26. ICU care. 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 dried rash, no vesicles or pus Hematologic: Denies: bleeding Musculoskeletal: Denies: pain Allergies: Coded Allergies: NO KNOWN DRUG ALLERGIES (Unverified Allergy, Unknown, 07/29/14) Objective Vital Signs Last 24 Hour Vital Signs Date Time Temp Pulse Resp B/P (MAP) Pulse Ox O2 Delivery O2 Flow Rate FiO2 04/10/17 17:00 69 14 104/56 99 Mechanical Ventilator 35 04/10/17 16:46 74 24 45 04/10/17 16:00 35 04/10/17 16:00 68 04/10/17 16:00 98.4 85 15 101/42 97 Mechanical Ventilator 35 04/10/17 15:26 68 14 45 04/10/17 15:00 72 14 117/33 97 Mechanical Ventilator 35 04/10/17 14:00 83 14 125/44 96 Mechanical Ventilator 35 04/10/17 13:19 69 14 100 Mechanical Ventilator 35 04/10/17 13:17 68 14 45 04/10/17 13:10 68 14 100 Mechanical Ventilator 04/10/17 13:00 70 14 94/30 96 Mechanical Ventilator 35 04/10/17 12:00 98.5 81 14 119/42 97 Mechanical Ventilator 35 04/10/17 12:00 35 04/10/17 12:00 80 04/10/17 11:00 65 14 101/44 97 Mechanical Ventilator 35 04/10/17 10:46 63 14 45 04/10/17 10:00 66 14 94/31 97 Mechanical Ventilator 35 04/10/17 09:17 72 14 45 04/10/17 09:00 73 14 105/32 98 Mechanical Ventilator 35 04/10/17 08:00 35 04/10/17 08:00 98.2 75 14 122/57 98 Mechanical Ventilator 35 04/10/17 08:00 72 04/10/17 07:24 75 14 99 Mechanical Ventilator 35 04/10/17 07:20 75 14 45 04/10/17 07:10 71 14 98 Mechanical Ventilator 04/10/17 07:00 75 14 102/35 98 Mechanical Ventilator 35 04/10/17 06:00 71 14 121/44 99 Mechanical Ventilator 35 04/10/17 05:00 71 16 120/39 97 Mechanical Ventilator 35 04/10/17 04:59 74 15 45 04/10/17 04:17 82 15 98 Mechanical Ventilator 04/10/17 04:16 77 23 97 Mechanical Ventilator 04/10/17 04:00 97.8 64 17 154/58 99 Mechanical Ventilator 35 04/10/17 04:00 64 04/10/17 04:00 35 04/10/17 03:30 76 15 45 04/10/17 03:00 65 16 119/42 99 Mechanical Ventilator 35 04/10/17 02:00 61 15 104/37 97 Mechanical Ventilator 35 04/10/17 01:11 62 14 99 Mechanical Ventilator 35 04/10/17 01:10 58 14 97 Mechanical Ventilator 04/10/17 01:09 58 14 45 04/10/17 01:00 58 15 117/45 99 Mechanical Ventilator 35 04/10/17 00:00 35 04/10/17 00:00 98.1 60 14 109/40 99 Mechanical Ventilator 35 04/10/17 00:00 60 04/09/17 23:30 60 14 45 04/09/17 23:00 63 14 108/37 99 Mechanical Ventilator 35 04/09/17 22:00 69 14 90/30 97 Mechanical Ventilator 35 04/09/17 21:30 62 14 45 04/09/17 21:00 63 14 104/39 97 Mechanical Ventilator 35 04/09/17 20:00 66 04/09/17 20:00 35 04/09/17 20:00 97.9 66 14 108/43 98 Mechanical Ventilator 35 04/09/17 19:45 65 14 99 Mechanical Ventilator 35 04/09/17 19:30 94 16 45 04/09/17 19:30 60 14 98 Mechanical Ventilator 04/09/17 19:30 60 17 Mechanical Ventilator 35 04/09/17 19:00 74 14 85/36 97 Mechanical Ventilator 35 04/09/17 18:00 79 18 105/36 96 Mechanical Ventilator 35 Height (Feet): 5 Height (Inches): 4.00 Weight (Pounds): 147 General Appearance: other - on vent, no pressors HEENT: normocephalic, atraumatic, anicteric Respiratory/Chest: crackles/rales, rhonchi - bilaterally Cardiovascular: normal rate, regular rhythm, no gallop/murmur, no JVD Abdomen: normal bowel sounds, soft, non tender, no organomegaly, non distended Genitourinary: other - + cota Extremities: no cyanosis Skin: other - ? 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 Interim placement enteric nasogastric tube, tip projected at the level of the gastric fundus, proximal port beyond the gastroesophageal junction. There is increasing hazy opacity in the right lung. There is persistent right lung volume loss. There is persistent perihilar interstitial prominence and bronchial wall thickening. Left jugular central venous catheter remains. Impression: Increasing hazy consolidation of the right lung Satisfactory nasogastric intubation. Patient's nurse was notified of this finding previously Other stable findings as described Microbiology Date/Time Source Procedure Growth Status 04/08/17 21:05 Blood Blood Culture - Preliminary NO GROWTH AFTER 24 HOURS Resulted 04/08/17 21:00 Blood Blood Culture - Preliminary NO GROWTH AFTER 24 HOURS Resulted 04/09/17 12:25 Sputum Gram Stain - Final Resulted 04/09/17 12:25 Sputum Sputum Culture Pending Resulted 04/08/17 23:50 Nasal Nares MRSA Culture - Final Staphylococcus Aureus - Mrsa Complete 04/08/17 23:50 Urine,Clean Catch Urine Culture - Preliminary NO GROWTH Resulted Laboratory Tests Test 04/10/17 05:00 04/10/17 09:15 White Blood Count 10.9 K/UL (4.8-10.8) H Red Blood Count 2.98 M/UL (4.20-5.40) L Hemoglobin 9.7 G/DL (12.0-16.0) L Hematocrit 28.8 % (37.0-47.0) L Mean Corpuscular Volume 97 FL (80-99) Mean Corpuscular Hemoglobin 32.5 PG (27.0-31.0) H Mean Corpuscular Hemoglobin Concent 33.5 G/DL (32.0-36.0) Red Cell Distribution Width 14.5 % (11.6-14.8) Platelet Count 322 K/UL (150-450) Mean Platelet Volume 5.4 FL (6.5-10.1) L Neutrophils (%) (Auto) 46.9 % (45.0-75.0) Lymphocytes (%) (Auto) 37.1 % (20.0-45.0) Monocytes (%) (Auto) 8.7 % (1.0-10.0) Eosinophils (%) (Auto) 6.7 % (0.0-3.0) H Basophils (%) (Auto) 0.6 % (0.0-2.0) Differential Total Cells Counted 100 Neutrophils % (Manual) 52 % (45-75) Lymphocytes % (Manual) 39 % (20-45) Monocytes % (Manual) 6 % (1-10) Eosinophils % (Manual) 2 % (0-3) Basophils % (Manual) 1 % (0-2) Band Neutrophils 0 % (0-8) Platelet Estimate Adequate Platelet Morphology Normal Anisocytosis 1+ Erythrocyte Sedimentation Rate 61 MM/HR (0-42) H Reticulocyte Count 1.6 % (0.0-2.0) Prothrombin Time 12.2 SEC (9.30-11.50) H Prothromb Time International Ratio 1.2 (0.9-1.1) H Activated Partial Thromboplast Time 34 SEC (23-33) H Sodium Level 141 MMOL/L (136-145) Potassium Level 3.1 MMOL/L (3.5-5.1) L Chloride Level 107 MMOL/L (98-107) Carbon Dioxide Level 29 MMOL/L (21-32) Anion Gap 6 mmol/L (5-15) Blood Urea Nitrogen 16 mg/dL (7-18) Creatinine 1.3 MG/DL (0.55-1.30) Estimat Glomerular Filtration Rate mL/min (>60) Glucose Level 110 MG/DL (74-106) H Calcium Level 9.9 MG/DL (8.5-10.1) Phosphorus Level 3.0 MG/DL (2.5-4.9) Magnesium Level 1.5 MG/DL (1.8-2.4) L Iron Level 40 ug/dL (50-175) L Total Iron Binding Capacity 175 ug/dL (250-450) L Percent Iron Saturation 23 % (15-50) Unsaturated Iron Binding 135 ug/dL (112-346) Total Bilirubin 0.3 MG/DL (0.2-1.0) Aspartate Amino Transf (AST/SGOT) 14 U/L (15-37) L Alanine Aminotransferase (ALT/SGPT) 10 U/L (12-78) L Alkaline Phosphatase 76 U/L (46-116) Lactate Dehydrogenase 136 U/L (81-234) Total Protein 5.9 G/DL (6.4-8.2) L Albumin 2.0 G/DL (3.4-5.0) L Globulin 3.9 g/dL Albumin/Globulin Ratio 0.5 (1.0-2.7) L Vitamin B12 Level > 2000 PG/ML (193-986) H Folate 16.4 NG/ML (8.6-58.9) Arterial Blood pH 7.450 (7.350-7.450) Arterial Blood Partial Pressure CO2 38.2 mmHg (35.0-45.0) Arterial Blood Partial Pressure O2 89.1 mmHg (75.0-100.0) Arterial Blood HCO3 26.0 mmol/L (22.0-26.0) Arterial Blood Oxygen Saturation 96.2 % (92.0-98.0) Arterial Blood Base Excess 1.9 Kelvin Test Positive Current Medications Medications (Trade) Dose Ordered Sig/Jacque Route PRN Reason Start Time Stop Time Status Last Admin Dose Admin Acetaminophen (Tylenol) 650 mg Q4H PRN ORAL Mild Pain (Pain Scale 1-3) 04/08/17 23:15 05/08/17 23:14 Acetaminophen (Tylenol) 650 mg Q4H PRN RECTAL Mild Pain (Pain Scale 1-3) 04/08/17 23:15 05/08/17 23:14 Albuterol/ Ipratropium (Albuterol/ Ipratropium) 3 ml Q4HR PRN HHN Shortness of Breath 04/08/17 23:15 04/13/17 23:14 04/10/17 04:11 Albuterol/ Ipratropium (Albuterol/ Ipratropium) 3 ml Q6HR HHN 04/09/17 00:00 04/14/17 00:00 04/10/17 13:16 Calcitonin [place] (Miacalcin) 1 sprays DAILY NASAL 04/10/17 09:00 05/10/17 08:59 04/10/17 09:29 Chlorhexidine Gluconate (Laly-Hex 2%) 1 applic DAILY@1999 TOPIC 04/10/17 21:00 05/10/17 20:59 Clotrimazole (Lotrimin) 1 applic EVERY 12 HOURS TOPIC 04/09/17 15:00 05/09/17 14:59 04/10/17 08:33 Dextrose (Dextrose 50%) STAT PRN IV Hypoglycemia 04/08/17 23:15 05/08/17 23:14 Docusate Sodium (Colace) 100 mg Q12H GT 04/09/17 21:00 05/09/17 20:59 04/10/17 10:12 Heparin Sodium (Porcine) (Heparin 5000 units/ml) 5,000 units EVERY 12 HOURS SUBQ 04/09/17 09:00 05/09/17 08:59 04/10/17 09:33 Insulin Aspart (NovoLOG) BEFORE MEALS AND HS SUBQ 04/09/17 11:30 05/09/17 11:29 04/10/17 16:57 Levothyroxine Sodium (Synthroid) 50 mcg DAILY ORAL 04/09/17 06:30 05/09/17 06:29 04/10/17 09:29 Lorazepam (Ativan 2mg/ml 1ml) 2 mg Q4H PRN IV For Anxiety 04/09/17 10:15 04/16/17 10:14 04/10/17 04:20 Morphine Sulfate (Morphine Sulfate) 4 mg Q4H PRN IVP For Pain 04/09/17 10:15 04/16/17 10:14 Olanzapine (ZyPREXA) 5 mg Q6H PRN NG agitation 04/09/17 12:45 05/09/17 12:44 Ondansetron HCl (Zofran) 4 mg Q6H PRN IVP Nausea & Vomiting 04/08/17 23:15 05/08/17 23:14 Pantoprazole (Protonix) 40 mg DAILY IV 04/09/17 09:00 05/09/17 08:59 04/10/17 09:29 Piperacillin Sod/ Tazobactam Sod 3.375 gm/Dextrose 55 ml @ 13.75 mls/ hr EVERY 8 HOURS IV 04/09/17 14:00 04/16/17 05:59 04/10/17 13:54 Polyethylene Glycol (Miralax) 17 gm DAILYPRN PRN ORAL Constipation 04/08/17 23:15 05/08/17 23:14 04/09/17 10:40 Promethazine HCl/ Codeine (Phenergan with Codeine) 5 ml Q4H PRN ORAL For Cough 04/09/17 10:15 05/09/17 10:14 Valproic Acid (Depakene) 500 mg Q12HR GT 04/09/17 16:30 05/09/17 16:29 04/10/17 10:12 Vancomycin HCl (Vanco rx to dose) 1 ea DAILY PRN MISC Per rx protocol 04/08/17 23:15 05/08/17 23:14 Vancomycin HCl 1 gm/Dextrose 275 ml @ 183.708 mls/hr Q36H IVPB 04/09/17 02:00 04/14/17 01:59 04/10/17 13:54 TIERA PRADO Apr 10, 2017 18:04
[2017-04-10] MEDS: Dyna-Hex 2% Top Sol 2oz TOPIC SCH (20:57)
--- NOTE | 2017-04-10 22:47 | General Progress Note ---
Assessment/Plan Problem List: (1) Acute respiratory failure with hypoxia and hypercapnia ICD Codes: J96.01 - Acute respiratory failure with hypoxia; J96.02 - Acute respiratory failure with hypercapnia SNOMED: 14168718, 38803509, 974790777 (2) Sepsis ICD Codes: A41.9 - Sepsis, unspecified organism SNOMED: 26474271 (3) Aspiration pneumonia ICD Codes: J69.0 - Pneumonitis due to inhalation of food and vomit SNOMED: 728806741 Qualifiers: Qualified Codes: J69.0 - Pneumonitis due to inhalation of food and vomit (4) Toxic metabolic encephalopathy ICD Codes: G92 - Toxic encephalopathy SNOMED: 410035910 (5) Hyperkalemia ICD Codes: E87.5 - Hyperkalemia SNOMED: 18162470 (6) JUJU (acute kidney injury) ICD Codes: N17.9 - Acute kidney failure, unspecified SNOMED: 30401251 (7) UTI (lower urinary tract infection) ICD Codes: N39.0 - UTI (lower urinary tract infection) SNOMED: 5275368 (8) Dementia ICD Codes: F03.90 - Dementia SNOMED: 80504363 (9) Schizophrenia ICD Codes: F20.9 - Schizophrenia, unspecified SNOMED: 33587074 (10) Seizure disorder ICD Codes: G40.909 - Epilepsy, unspecified, not intractable, without status epilepticus SNOMED: 029522237 Status: stable Assessment/Plan Cont ICU care Pulmonary and ID consulted Broad-spectrum abx: vanco and zosyn (04/08-) F/u cultures Cont on vent and wean as tolerated Trend ABG Monitor CXR IVFs given JUJU s/p kayexylate for hyperkalemia Monitor CBC, BMP Cpmt tube feeds via NGT GI consulted as daughter now states she wants PEG given recurrent aspiration PNA Hold Eliquis given plan for PEG Plan for PEG tomorrow, NPOa t MN Cont other home meds including depakote Pain control, supportive care, bowel regimen HSQ, SCDs for DVT ppx PPI At the time of my involvement, the patient's condition was critical with high potential for and/or physiologic deterioration secondary to acute respiratory failure 2/2 aspiration pneumonia, sepsis, acute encephalopathy as delineated in the note above. On the above date of service, I spent a total of 43 minutes in the ICU evaluating, managing, and providing critical care services to this patient, including time spent documenting these activities, counseling patient/family, and coordinating care. Critical care services performed include: Telemetry Review Hemodynamic measurement interpretation Laboratory data review and interpretation Ventilator setting review, management, and adjustment Discussion of care plans with patient, family, and/or surrogate decision makers Discussion of patient's care with primary medical team, surgical team, and/or consulting service Decision to obtain further radiologic evaluation, after consideration of risk/ benefit ratio Decision to perform invasive procedure, after consideration of risk/benefit ratio Review of most recent microbiology results with assessment and modification of antimicrobial coverage Discussion of patient's code status and further advancement towards the ultimate goals of care Plan outlined above discussed with patient/family, [employer], 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 D/w pt's daughter regarding plan of care D/w ID re abx D/w GI re G tube for tomorrow FULL CODE per discussion w/ daughter Time of note may not reflect time of encounter. Subjective Date patient seen: Apr 10, 2017 Time patient seen: 14:00 ROS Limited/Unobtainable: Yes Allergies: Coded Allergies: NO KNOWN DRUG ALLERGIES (Unverified Allergy, Unknown, 07/29/14) Subjective No acute o/n events Pt intubated, sedated ROS unobtainable as pt sedated Objective Last 24 Hour Vital Signs Date Time Temp Pulse Resp B/P (MAP) Pulse Ox O2 Delivery O2 Flow Rate FiO2 04/10/17 22:00 77 14 135/42 98 Mechanical Ventilator 35 04/10/17 21:16 72 14 45 04/10/17 21:00 74 14 129/48 98 Mechanical Ventilator 35 04/10/17 20:00 98.4 74 15 126/50 97 Mechanical Ventilator 35 04/10/17 19:17 88 14 45 04/10/17 19:10 67 14 100 Mechanical Ventilator 35 04/10/17 19:00 73 14 100/46 98 Mechanical Ventilator 35 04/10/17 19:00 66 14 100 Mechanical Ventilator 04/10/17 18:00 67 14 112/38 98 Mechanical Ventilator 35 04/10/17 17:00 69 14 104/56 99 Mechanical Ventilator 35 04/10/17 16:46 74 24 45 04/10/17 16:00 35 04/10/17 16:00 68 04/10/17 16:00 98.4 85 15 101/42 97 Mechanical Ventilator 35 04/10/17 15:26 68 14 45 04/10/17 15:00 72 14 117/33 97 Mechanical Ventilator 35 04/10/17 14:00 83 14 125/44 96 Mechanical Ventilator 35 04/10/17 13:19 69 14 100 Mechanical Ventilator 35 04/10/17 13:17 68 14 45 04/10/17 13:10 68 14 100 Mechanical Ventilator 04/10/17 13:00 70 14 94/30 96 Mechanical Ventilator 35 04/10/17 12:00 98.5 81 14 119/42 97 Mechanical Ventilator 35 04/10/17 12:00 35 04/10/17 12:00 80 04/10/17 11:00 65 14 101/44 97 Mechanical Ventilator 35 04/10/17 10:46 63 14 45 04/10/17 10:00 66 14 94/31 97 Mechanical Ventilator 35 04/10/17 09:17 72 14 45 04/10/17 09:00 73 14 105/32 98 Mechanical Ventilator 35 04/10/17 08:00 35 04/10/17 08:00 98.2 75 14 122/57 98 Mechanical Ventilator 35 04/10/17 08:00 72 04/10/17 07:24 75 14 99 Mechanical Ventilator 35 04/10/17 07:20 75 14 45 04/10/17 07:10 71 14 98 Mechanical Ventilator 04/10/17 07:00 75 14 102/35 98 Mechanical Ventilator 35 04/10/17 06:00 71 14 121/44 99 Mechanical Ventilator 35 04/10/17 05:00 71 16 120/39 97 Mechanical Ventilator 35 04/10/17 04:59 74 15 45 04/10/17 04:17 82 15 98 Mechanical Ventilator 04/10/17 04:16 77 23 97 Mechanical Ventilator 04/10/17 04:00 97.8 64 17 154/58 99 Mechanical Ventilator 35 04/10/17 04:00 64 04/10/17 04:00 35 04/10/17 03:30 76 15 45 04/10/17 03:00 65 16 119/42 99 Mechanical Ventilator 35 04/10/17 02:00 61 15 104/37 97 Mechanical Ventilator 35 04/10/17 01:11 62 14 99 Mechanical Ventilator 35 04/10/17 01:10 58 14 97 Mechanical Ventilator 04/10/17 01:09 58 14 45 04/10/17 01:00 58 15 117/45 99 Mechanical Ventilator 35 04/10/17 00:00 35 04/10/17 00:00 98.1 60 14 109/40 99 Mechanical Ventilator 35 04/10/17 00:00 60 04/09/17 23:30 60 14 45 04/09/17 23:00 63 14 108/37 99 Mechanical Ventilator 35 Intake and Output 04/10/17 04/11/17 19:00 07:00 Intake Total 1444.90 ml Output Total 800 ml Balance 644.90 ml IV Total 834.90 ml Tube Feeding 550 ml Other 60 ml Output Urine Total 800 ml Laboratory Tests 04/10/17 05:00: White Blood Count 10.9H, Red Blood Count 2.98L, Hemoglobin 9.7L, Hematocrit 28.8L, Mean Corpuscular Volume 97, Mean Corpuscular Hemoglobin 32.5H, Mean Corpuscular Hemoglobin Concent 33.5, Red Cell Distribution Width 14.5, Platelet Count 322, Mean Platelet Volume 5.4L, Neutrophils (%) (Auto) 46.9, Lymphocytes ( %) (Auto) 37.1, Monocytes (%) (Auto) 8.7, Eosinophils (%) (Auto) 6.7H, Basophils (%) (Auto) 0.6, Differential Total Cells Counted 100, Neutrophils % ( Manual) 52, Lymphocytes % (Manual) 39, Monocytes % (Manual) 6, Eosinophils % ( Manual) 2, Basophils % (Manual) 1, Band Neutrophils 0, Platelet Estimate Adequate, Platelet Morphology Normal, Anisocytosis 1+, Erythrocyte Sedimentation Rate 61H, Reticulocyte Count 1.6, Prothrombin Time 12.2H, Prothromb Time International Ratio 1.2H, Activated Partial Thromboplast Time 34H , Sodium Level 141, Potassium Level 3.1L, Chloride Level 107, Carbon Dioxide Level 29, Anion Gap 6, Blood Urea Nitrogen 16, Creatinine 1.3, Estimat Glomerular Filtration Rate , Glucose Level 110H, Calcium Level 9.9, Phosphorus Level 3.0, Magnesium Level 1.5L, Iron Level 40L, Total Iron Binding Capacity 175L, Percent Iron Saturation 23, Unsaturated Iron Binding 135, Total Bilirubin 0.3, Aspartate Amino Transf (AST/SGOT) 14L, Alanine Aminotransferase (ALT/SGPT) 10L, Alkaline Phosphatase 76, Lactate Dehydrogenase 136, Total Protein 5.9L, Albumin 2.0L, Globulin 3.9, Albumin/Globulin Ratio 0.5L, Vitamin B12 Level > 2000H, Folate 16.4 04/10/17 09:15: Arterial Blood pH 7.450, Arterial Blood Partial Pressure CO2 38.2, Arterial Blood Partial Pressure O2 89.1, Arterial Blood HCO3 26.0, Arterial Blood Oxygen Saturation 96.2, Arterial Blood Base Excess 1.9, Kelvin Test Positive Height (Feet): 5 Height (Inches): 4.00 Weight (Pounds): 147 Objective General: intubated, sedated Head: normocephalic, without obvious abnormality, atraumatic Eyes: conjunctivae/corneas clear. PERRL, EOM's intact Throat: lips, mucosa, and tongue normal. MMM Neck: supple, symmetrical, trachea midline, and no JVD Lungs: +rhonchi, R>L Heart: regular rate and rhythm, S1, S2 normal, no murmur, click, rub or gallop Abdomen: soft, non-tender, non-distended, bowel sounds normal Extremities: extremities normal, atraumatic, no cyanosis or edema Pulses: 2+ and symmetric Skin: skin color, texture, turgor normal; no rashes or lesions Neurologic: Prachi Taveras M.D. Apr 10, 2017 22:47
[2017-04-11] VITALS (24 sets, daily range): BP systolic 78–142; BP diastolic 33–78
[2017-04-11] MEDS: Albuterol/Ipratropium 3ml neb HHN SCH ×4 (02:02→19:33)
[2017-04-11] MEDS: Morphine Sulfate 4mg/ml Inj IVP PRN (03:41)
[2017-04-11] MEDS: Piperacillin/Tazobactam 3.375 GM in D5W 55 ML IV SCH ×3 (05:41→21:40)
[2017-04-11] MEDS: NovoLOG Insulin Flexpen SUBQ SCH ×4 (05:41→23:48)
[2017-04-11 06:32] LABS: BASOPHILS % (AUTO) 0.3 % (0.0-2.0); LYMPHOCYTES % (AUTO) 21.7 % (20.0-45.0); MEAN CORPUSCULAR HEMOGLOBIN 30.8 PG (27.0-31.0); MEAN CORPUSCULAR HGB CONC 31.9 G/DL (32.0-36.0); MEAN CORPUSCULAR VOLUME 96 FL (80-99); MEAN PLATELET VOLUME 5.3 FL (6.5-10.1); MONOCYTES % (AUTO) 7.3 % (1.0-10.0); NEUTROPHILS % (AUTO) 63.6 % (45.0-75.0); PLATELET COUNT 361 K/UL (150-450); RED BLOOD COUNT 3.03 M/UL (4.20-5.40); RED CELL DISTRIBUTION WIDTH 14.6 % (11.6-14.8); WHITE BLOOD COUNT 10.5 K/UL (4.8-10.8)
[2017-04-11 06:41] LABS: INR 1.1 (0.9-1.1); PROTHROMBIN TIME 11.4 SEC (9.30-11.50)
[2017-04-11 06:46] LABS: ALANINE AMINOTRANSFERASE 7 U/L (12-78); ALBUMIN/GLOBULIN RATIO 0.5 (1.0-2.7); ANION GAP 7 mmol/L (5-15); ASPARTATE AMINO TRANSFERASE 13 U/L (15-37); CALCIUM 9.4 MG/DL (8.5-10.1); CARBON DIOXIDE 28 MMOL/L (21-32); CHLORIDE 108 MMOL/L (98-107); CREATININE 0.8 MG/DL (0.55-1.30); MAGNESIUM 1.7 MG/DL (1.8-2.4); PHOSPHORUS 2.6 MG/DL (2.5-4.9); POTASSIUM 3.1 MMOL/L (3.5-5.1); SODIUM 143 MMOL/L (136-145)
--- NOTE | 2017-04-11 07:35 | Anethesia Preoperative Eval ---
Anesthesia Pre-op PMH/ROS General Date of Evaluation: Apr 11, 2017 Time of Evaluation: 07:40 Anesthesiologist: alta ASA Score: ASA 4 Mallampati Score Class I : Soft palate, uvula, fauces, pillars visible Class II: Soft palate, uvula, fauces visible Class III: Soft palate, base of uvula visible Class IV: Only hard plate visible Mallampati Classification: Class II Surgeon: masoud Diagnosis: dysphagia Surgical Procedure: egd/peg Anesthesia History: none Social History: smoking Family History: no anesthesia problems Allergies: Coded Allergies: NO KNOWN DRUG ALLERGIES (Unverified Allergy, Unknown, 07/29/14) Medications: see eMAR Past Medical History Cardiovascular: Reports: HTN Pulmonary: Reports: asthma Neurologic/Psychiatric: Reports: dementia, CVA Endocrine: Reports: DM Hematology/Immune: Reports: DVT Anesthesia Pre-op Phys. Exam Physician Exam Last Vital Signs Date Time Temp Pulse Resp B/P (MAP) Pulse Ox O2 Delivery O2 Flow Rate FiO2 04/11/17 07:27 81 26 45 04/11/17 07:00 128/45 98 Mechanical Ventilator 04/11/17 04:11 98.0 04/09/17 02:00 4.0 Constitutional: NAD Neurologic: CN 2-12 intact Cardiovascular: RRR Respiratory: CTA, other - ventilator dependent Gastrointestinal: S/NT/ND Airway Exam Mallampati Score: Class II MO: limited Neck: decreased rom TMD: 2fb ROM: limited Teeth: other - intubated Anesthesia Pre-op A/P Labs Hematology Test 04/11/17 04:00 White Blood Count 10.5 K/UL (4.8-10.8) Red Blood Count 3.03 M/UL (4.20-5.40) L Hemoglobin 9.3 G/DL (12.0-16.0) L Hematocrit 29.2 % (37.0-47.0) L Mean Corpuscular Volume 96 FL (80-99) Mean Corpuscular Hemoglobin 30.8 PG (27.0-31.0) Mean Corpuscular Hemoglobin Concent 31.9 G/DL (32.0-36.0) L Red Cell Distribution Width 14.6 % (11.6-14.8) Platelet Count 361 K/UL (150-450) Mean Platelet Volume 5.3 FL (6.5-10.1) L Neutrophils (%) (Auto) 63.6 % (45.0-75.0) Lymphocytes (%) (Auto) 21.7 % (20.0-45.0) Monocytes (%) (Auto) 7.3 % (1.0-10.0) Eosinophils (%) (Auto) 7.0 % (0.0-3.0) H Basophils (%) (Auto) 0.3 % (0.0-2.0) Coagulation Test 04/11/17 04:00 Prothrombin Time 11.4 SEC (9.30-11.50) Prothromb Time International Ratio 1.1 (0.9-1.1) Activated Partial Thromboplast Time 32 SEC (23-33) Chemistry Test 04/11/17 04:00 Sodium Level 143 MMOL/L (136-145) Potassium Level 3.1 MMOL/L (3.5-5.1) L Chloride Level 108 MMOL/L (98-107) H Carbon Dioxide Level 28 MMOL/L (21-32) Anion Gap 7 mmol/L (5-15) Blood Urea Nitrogen 9 mg/dL (7-18) Creatinine 0.8 MG/DL (0.55-1.30) Estimat Glomerular Filtration Rate mL/min (>60) Glucose Level 97 MG/DL (74-106) Calcium Level 9.4 MG/DL (8.5-10.1) Phosphorus Level 2.6 MG/DL (2.5-4.9) Magnesium Level 1.7 MG/DL (1.8-2.4) L Total Bilirubin 0.2 MG/DL (0.2-1.0) Aspartate Amino Transf (AST/SGOT) 13 U/L (15-37) L Alanine Aminotransferase (ALT/SGPT) 7 U/L (12-78) L Alkaline Phosphatase 66 U/L (46-116) Total Protein 6.0 G/DL (6.4-8.2) L Albumin 2.0 G/DL (3.4-5.0) L Globulin 4.0 g/dL Albumin/Globulin Ratio 0.5 (1.0-2.7) L Risk Assessment & Plan Assessment: [email or web address] Plan: mac Status Change Before Surgery: No Pre-Antibiotics Drug: RICH Barr Apr 11, 2017 07:35
[2017-04-11] MEDS ORDERED: DiphenhydrAMINE 50mg/ml Inj IVP PRN (07:45)
[2017-04-11] MEDS ORDERED: fentaNYL 100 mcg/2 mL IV PRN (07:45)
[2017-04-11] MEDS ORDERED: Midazolam 2mg/2ml Inj IVP PRN (07:45)
[2017-04-11] MEDS ORDERED: Atropine Inj 1mg/10ml Syr IV PRN (07:45)
--- NOTE | 2017-04-11 07:59 | Pre-Procedure Note/Attestation ---
Pre-Procedure Note/Attestation Complete Prior to Procedure Planned Procedure: not applicable Procedure Narrative: esophagogastroduodenoscopy peg Indications for Procedure Pre-Operative Diagnosis: FTT Attestation I attest that I discussed the nature of the procedure; its benefits; risks and complications; and alternatives (and the risks and benefits of such alternatives ), prior to the procedure, with the patient (or the patient's legal escrow representative). I attest that, if there was a reasonable possibility of needing a blood transfusion, the patient (or the patient's legal escrow representative) was given the [facility] standardized written summary, pursuant to the Keny Edith Blood Safety Act ([place] Health and Safety Code # 1645, as amended). I attest that I re-evaluated the patient just prior to the surgery and that there has been no change in the patient's H&P, except as documented below: BESSY RADFORD Apr 11, 2017 07:59
[2017-04-11] MEDS ORDERED: Lidocaine 1% MPF 10mg/ml 5ml ONE (08:00)
[2017-04-11] MEDS ORDERED: Propofol 200mg/20ml IV ONE (08:00)
--- NOTE | 2017-04-11 08:14 | Endoscopy Procedure Note ---
Endoscopy Procedure Note Indication for Procedure: dysphagia Procedures Performed: EGD, PEG Operative Findings/Diagnosis: gstritis Specimen: yes Pt Tolerated Procedure Well: Yes Estimated Blood Loss: none Anesthesiologist: tegan Anesthesia: MAC Implant(s) used?: No 50 yrs or older w/o bx or poly: Not Applicable 10yrs. F/U not recommended: Not Applicable BESSY RADFORD Apr 11, 2017 08:14
[2017-04-11] MEDS: Heparin 5000 units/ml inj SUBQ SCH ×2 (09:00→21:00)
[2017-04-11] MEDS: Valproic Acid 250mg/5ml Liquid GT SCH ×2 (09:18→21:08)
[2017-04-11] MEDS: Docusate 100mg/10ml Liq GT SCH ×2 (09:18→21:08)
[2017-04-11] MEDS: Pantoprazole Inj IV SCH (09:19)
--- NOTE | 2017-04-11 09:34 | Immediate Post-Op Evaluation ---
Immediate Post-Op Evalulation Immediate Post-Op Evalulation Procedure: egd/peg Date of Evaluation: Apr 11, 2017 Time of Evaluation: 08:35 IV Fluids: 30ml 0.9ns Blood Products: none Estimated Blood Loss: negligible Blood Pressure Systolic: 139 Blood Pressure Diastolic: 50 Pulse Rate: 75 Respiratory Rate: 14 O2 Sat by Pulse Oximetry: 98 Temperature (Fahrenheit): 98.0 Pain Score (1-10): 0 Nausea: No Vomiting: No Complications none Patient Status: awake, reacts, ventilated Hydration Status: adequate Drug: RICH Barr Apr 11, 2017 09:34
--- NOTE | 2017-04-11 09:36 | 48 Hour Post Anesthesia Eval ---
Post Anesthesia Evaluation Procedure: egd/peg Date of Evaluation: Apr 11, 2017 Time of Evaluation: 08:37 Blood Pressure Systolic: 133 0: 50 Pulse Rate: 73 Respiratory Rate: 14 Temperature (Fahrenheit): 98.0 O2 Sat by Pulse Oximetry: 98 Airway: patent Nausea: No Vomiting: No Pain Intensity: 0 Hydration Status: adequate Cardiopulmonary Status: stable Mental Status/LOC: patient returned to baseline Post-Anesthesia Complications: none Follow-up care needed: N/A RICH GAMBLE Apr 11, 2017 09:36
--- NOTE | 2017-04-11 10:01 | Diagnostic Imaging Report ---
Indication: Post nasogastric tube placement Technique: Supine view of the abdomen Comparison: 04/09/2017 Findings: The nasogastric tube has been advanced, tip coiled in the gastric fundus, proximal port well beyond the gastroesophageal junction bowel gas pattern is unremarkable. Again demonstrated is evidence of prior T12 vertebral augmentation procedure, lumbar scoliotic deformity Impression: Improved position of nasogastric tube, as described Verbal preliminary report was provided to the nursing unit when the exam was performed
--- NOTE | 2017-04-11 10:17 | Pulmonolgy Critical Care Note ---
Critical Care - Asmt/Plan Problems: (1) Acute respiratory failure (2) Acute encephalopathy (3) Aspiration pneumonia (4) Dementia (5) Diabetes mellitus Respiratory: monitor respiratory rate, adjust FIO2, CXR Cardiac: continue to monitor HR/BP Renal: F/U I&O, check electrolytes, other - kvo Infectious Disease: check cultures, continue antibiotics, other - on Zosyn Gastrointestinal: continue feedings/current rate, start feedings, other - got Gtube this morning Endocrine: monitor blood sugar Hematologic: monitor H/H Neurologic: PRN Ativan Affect: PRN ativan Prophylaxis: Protonix Disposition: keep in ICU 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 control technician Discussed with: nurses, consultants, case mgrdisplay manager - Objective Last 24 Hour Vital Signs Date Time Temp Pulse Resp B/P (MAP) Pulse Ox O2 Delivery O2 Flow Rate FiO2 04/11/17 09:36 73 14 98 04/11/17 09:34 75 14 98 04/11/17 09:29 35 04/11/17 09:05 75 12 45 04/11/17 09:03 98 04/11/17 08:00 35 04/11/17 07:27 81 26 45 04/11/17 07:25 76 14 100 Mechanical Ventilator 35 04/11/17 07:15 74 14 100 Mechanical Ventilator 04/11/17 07:00 70 18 128/45 98 Mechanical Ventilator 35 04/11/17 06:00 81 18 136/60 98 Mechanical Ventilator 35 04/11/17 05:17 85 16 45 04/11/17 05:00 81 18 140/56 98 Mechanical Ventilator 35 04/11/17 04:11 98.0 04/11/17 04:00 81 04/11/17 04:00 35 04/11/17 04:00 98.4 74 15 135/47 97 Mechanical Ventilator 35 04/11/17 03:21 90 25 45 04/11/17 03:00 80 18 127/41 98 Mechanical Ventilator 35 04/11/17 02:00 78 14 142/78 98 Mechanical Ventilator 35 04/11/17 01:27 81 14 45 04/11/17 01:15 78 15 100 Mechanical Ventilator 35 04/11/17 01:00 71 14 100 Mechanical Ventilator 04/11/17 01:00 88 14 136/74 98 Mechanical Ventilator 35 04/11/17 00:00 75 04/11/17 00:00 35 04/11/17 00:00 98.0 74 15 134/48 97 Mechanical Ventilator 35 04/10/17 23:29 73 15 45 04/10/17 23:00 80 14 131/48 98 Mechanical Ventilator 35 04/10/17 22:00 77 14 135/42 98 Mechanical Ventilator 35 04/10/17 21:16 72 14 45 04/10/17 21:00 74 14 129/48 98 Mechanical Ventilator 35 04/10/17 20:00 35 04/10/17 20:00 98.4 74 15 126/50 97 Mechanical Ventilator 35 04/10/17 20:00 66 04/10/17 19:17 88 14 45 04/10/17 19:10 67 14 100 Mechanical Ventilator 35 04/10/17 19:00 73 14 100/46 98 Mechanical Ventilator 35 04/10/17 19:00 66 14 100 Mechanical Ventilator 04/10/17 18:00 67 14 112/38 98 Mechanical Ventilator 35 04/10/17 17:00 69 14 104/56 99 Mechanical Ventilator 35 04/10/17 16:46 74 24 45 04/10/17 16:00 35 04/10/17 16:00 68 04/10/17 16:00 98.4 85 15 101/42 97 Mechanical Ventilator 35 04/10/17 15:26 68 14 45 04/10/17 15:00 72 14 117/33 97 Mechanical Ventilator 35 04/10/17 14:00 83 14 125/44 96 Mechanical Ventilator 35 04/10/17 13:19 69 14 100 Mechanical Ventilator 35 04/10/17 13:17 68 14 45 04/10/17 13:10 68 14 100 Mechanical Ventilator 04/10/17 13:00 70 14 94/30 96 Mechanical Ventilator 35 04/10/17 12:00 98.5 81 14 119/42 97 Mechanical Ventilator 35 04/10/17 12:00 35 04/10/17 12:00 80 04/10/17 11:00 65 14 101/44 97 Mechanical Ventilator 35 04/10/17 10:46 63 14 45 Status: awake Condition: critical Heart: HR/BP unstable Abdomen: non-tender, active bowel sounds Decubiti: stage Micro: Microbiology Date/Time Source Procedure Growth Status 04/08/17 21:05 Blood Blood Culture - Preliminary NO GROWTH AFTER 48 HOURS Resulted 04/08/17 21:00 Blood Blood Culture - Preliminary NO GROWTH AFTER 48 HOURS Resulted 04/09/17 12:25 Sputum Gram Stain - Final Resulted 04/09/17 12:25 Sputum Sputum Culture Pending Resulted 04/08/17 23:50 Nasal Nares MRSA Culture - Final Staphylococcus Aureus - Mrsa Complete 04/08/17 23:50 Urine,Clean Catch Urine Culture - Preliminary NO GROWTH AFTER 24 HOURS Resulted 04/08/17 23:50 Rectum VRE Culture - Final Enterococcus Faecium - Vre Complete Accucheck: 106 Critical Care - Subjective ROS Limited/Unobtainable: Yes ICU Day: 4 Intubation Day: 4 Condition: critical EKG Rhythm: Sinus Rhythm FI02: 35 Vent Support Breath Rate: 6 Vent Support Mode: IMV/SIMV Vent Tidal Volume: 500 Sputum Amount: Small PEEP: 0.0 PIP: 14 Secretions: small Fluids: KVO Tube Feeding Amount: 55 I&O: Intake and Output 04/11/17 04/12/17 19:00 07:00 Output Total 100 ml Balance -100 ml Output Urine Total 100 ml CXR: cxr improving, ET tube in good place ET-Tube: 7.5 ET Position: 22 Labs: Laboratory Tests Test 04/11/17 04:00 White Blood Count 10.5 K/UL (4.8-10.8) Red Blood Count 3.03 M/UL (4.20-5.40) L Hemoglobin 9.3 G/DL (12.0-16.0) L Hematocrit 29.2 % (37.0-47.0) L Mean Corpuscular Volume 96 FL (80-99) Mean Corpuscular Hemoglobin 30.8 PG (27.0-31.0) Mean Corpuscular Hemoglobin Concent 31.9 G/DL (32.0-36.0) L Red Cell Distribution Width 14.6 % (11.6-14.8) Platelet Count 361 K/UL (150-450) Mean Platelet Volume 5.3 FL (6.5-10.1) L Neutrophils (%) (Auto) 63.6 % (45.0-75.0) Lymphocytes (%) (Auto) 21.7 % (20.0-45.0) Monocytes (%) (Auto) 7.3 % (1.0-10.0) Eosinophils (%) (Auto) 7.0 % (0.0-3.0) H Basophils (%) (Auto) 0.3 % (0.0-2.0) Prothrombin Time 11.4 SEC (9.30-11.50) Prothromb Time International Ratio 1.1 (0.9-1.1) Activated Partial Thromboplast Time 32 SEC (23-33) Sodium Level 143 MMOL/L (136-145) Potassium Level 3.1 MMOL/L (3.5-5.1) L Chloride Level 108 MMOL/L (98-107) H Carbon Dioxide Level 28 MMOL/L (21-32) Anion Gap 7 mmol/L (5-15) Blood Urea Nitrogen 9 mg/dL (7-18) Creatinine 0.8 MG/DL (0.55-1.30) Estimat Glomerular Filtration Rate mL/min (>60) Glucose Level 97 MG/DL (74-106) Calcium Level 9.4 MG/DL (8.5-10.1) Phosphorus Level 2.6 MG/DL (2.5-4.9) Magnesium Level 1.7 MG/DL (1.8-2.4) L Total Bilirubin 0.2 MG/DL (0.2-1.0) Aspartate Amino Transf (AST/SGOT) 13 U/L (15-37) L Alanine Aminotransferase (ALT/SGPT) 7 U/L (12-78) L Alkaline Phosphatase 66 U/L (46-116) Total Protein 6.0 G/DL (6.4-8.2) L Albumin 2.0 G/DL (3.4-5.0) L Globulin 4.0 g/dL Albumin/Globulin Ratio 0.5 (1.0-2.7) L DWAYNE CHERY Apr 11, 2017 10:17
[2017-04-11] MEDS ORDERED: Potassium Chloride 40 MEQ in Sodium Chloride 500ML 550 ML IVPB ONE (10:30)
[2017-04-11 10:32] LABS: ABG PCO2 38.2 mmHg (35.0-45.0)
[2017-04-11 10:33] LABS: ABG ALLEN TEST POSITIVE; ABG BASE EXCESS 4.2
--- NOTE | 2017-04-11 10:56 | Diagnostic Imaging Report ---
Indication: Reason For Exam: DYSPNEA Technique: One view of the chest Comparison: 04/10/2017 Findings: Stable satisfactory tube and line positions. There is slightly improved aeration of the right lung, but considerable atelectasis and reticular infiltrates persist. Small right pleural effusion persists. Left lung and pleural space largely cleared, with central perihilar interstitial prominence and bronchial wall thickening. Degenerative changes of the right shoulder again noted Impression: Over one day, slightly improved aeration of the right lung, with better expansion and possibly decreased parenchymal disease Other stable findings as described
[2017-04-11 11:48] LABS: OTHERS PATHOLOGIST COMMENT
--- NOTE | 2017-04-11 14:45 | Procedure Note ---
DATE OF PROCEDURE: 04/11/2017 SURGEON: Gino Morales M.D. PROCEDURE: Upper endoscopy with PEG placement, on biopsy. ANESTHESIA: Per Dr. England. INSTRUMENT: Olympus adult flexible upper endoscope. INDICATION: Failure to thrive and dysphagia. The procedure, risks, benefits, and possible consequences, including hemorrhage, aspiration, perforation and infection, and alternative treatments, were explained to the patient/legal guardian by Dr. Gino Morales and the patient/legal guardian understood and accepted these risks. PROCEDURE: After informed consent was obtained and the patient was adequately sedated, Olympus upper endoscope was advanced from mouth into the second portion of the duodenum and retroflexion was performed in the stomach. The patient had evidence of diffuse gastritis suspicious for H. pylori infection. Random biopsy from antrum was obtained. The patient had evidence of atrophic gastritis. Then under endoscopic guidance under sterile condition, a 20-[place] pull type of G-tube was successfully placed in the epigastric area. The distance from the tip of the tube to skin was about 2 cm in size. The patient tolerated the procedure very well without any complication. SUMMARY OF FINDINGS: 1. Gastritis, status post biopsy. 2. Status post successful G-tube placement. RECOMMENDATIONS: Abdominal binder. Elevate head of the bed at all times. G-tube flush. G-tube care. We will start tube feeding later today. I want to thank, Dr. Bustamante, for this kind referral. Gino Morales M.D. DR: BRIT JOB#: [id number] CC: María Bustamante M.D.; Fax#: [phone]
--- NOTE | 2017-04-11 17:02 | General Progress Note ---
Assessment/Plan Problem List: (1) Acute respiratory failure with hypoxia and hypercapnia ICD Codes: J96.01 - Acute respiratory failure with hypoxia; J96.02 - Acute respiratory failure with hypercapnia SNOMED: 20367525, 73840328, 287229022 (2) Sepsis ICD Codes: A41.9 - Sepsis, unspecified organism SNOMED: 85042454 (3) Aspiration pneumonia ICD Codes: J69.0 - Pneumonitis due to inhalation of food and vomit SNOMED: 550497246 Qualifiers: Qualified Codes: J69.0 - Pneumonitis due to inhalation of food and vomit (4) Toxic metabolic encephalopathy ICD Codes: G92 - Toxic encephalopathy SNOMED: 916415704 (5) Hyperkalemia ICD Codes: E87.5 - Hyperkalemia SNOMED: 58010103 (6) JUJU (acute kidney injury) ICD Codes: N17.9 - Acute kidney failure, unspecified SNOMED: 15913727 (7) UTI (lower urinary tract infection) ICD Codes: N39.0 - UTI (lower urinary tract infection) SNOMED: 7786818 (8) Dementia ICD Codes: F03.90 - Dementia SNOMED: 22069997 (9) Schizophrenia ICD Codes: F20.9 - Schizophrenia, unspecified SNOMED: 68716667 (10) Seizure disorder ICD Codes: G40.909 - Epilepsy, unspecified, not intractable, without status epilepticus SNOMED: 480490781 Assessment/Plan Cont ICU care Pulmonary and ID consulted Broad-spectrum abx: vanco and zosyn (04/08-) F/u cultures Cont on vent and wean as tolerated Trend ABG Monitor CXR IVFs given JUJU s/p kayexylate for hyperkalemia Monitor CBC, BMP Cpmt tube feeds via NGT GI consulted as daughter now states she wants PEG given recurrent aspiration PNA Hold Eliquis given plan for PEG Plan for PEG tomorrow, NPOa t [place] Cont other home meds including depakote Pain control, supportive care, bowel regimen HSQ, SCDs for DVT ppx PPI At the time of my involvement, the patient's condition was critical with high potential for and/or physiologic deterioration secondary to acute respiratory failure 2/2 aspiration pneumonia, sepsis, acute encephalopathy as delineated in the note above. On the above date of service, I spent a total of 43 minutes in the ICU evaluating, managing, and providing critical care services to this patient, including time spent documenting these activities, counseling patient/family, and coordinating care. Critical care services performed include: Telemetry Review Hemodynamic measurement interpretation Laboratory data review and interpretation Ventilator setting review, management, and adjustment Discussion of care plans with patient, family, and/or surrogate decision makers Discussion of patient's care with primary medical team, surgical team, and/or consulting service Decision to obtain further radiologic evaluation, after consideration of risk/ benefit ratio Decision to perform invasive procedure, after consideration of risk/benefit ratio Review of most recent microbiology results with assessment and modification of antimicrobial coverage Discussion of patient's code status and further advancement towards the ultimate goals of care Plan outlined above discussed with patient/family, MEAT TRIMMER, 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 D/w pt's daughter regarding plan of care D/w ID re abx FULL CODE per discussion w/ daughter Time of note may not reflect time of encounter. Subjective Date patient seen: Apr 11, 2017 Time patient seen: 17:02 ROS Limited/Unobtainable: Yes Allergies: Coded Allergies: NO KNOWN DRUG ALLERGIES (Unverified Allergy, Unknown, 07/29/14) Subjective No acute o/n events Pt intubated, sedated ROS unobtainable as pt sedated Objective Last 24 Hour Vital Signs Date Time Temp Pulse Resp B/P (MAP) Pulse Ox O2 Delivery O2 Flow Rate FiO2 04/11/17 16:00 98.4 101 18 116/47 98 Mechanical Ventilator 35 04/11/17 16:00 93 04/11/17 16:00 35 04/11/17 15:25 89 19 45 04/11/17 15:00 88 39 100/33 96 Mechanical Ventilator 35 04/11/17 14:00 100 27 95/36 94 Mechanical Ventilator 35 04/11/17 13:11 86 20 100 Mechanical Ventilator 35 04/11/17 13:05 84 18 45 04/11/17 13:00 85 19 97 Mechanical Ventilator 04/11/17 13:00 90 36 115/37 94 Mechanical Ventilator 35 04/11/17 12:00 98.6 79 18 118/39 98 Mechanical Ventilator 35 04/11/17 12:00 78 04/11/17 11:03 35 04/11/17 11:00 75 20 119/46 98 Mechanical Ventilator 35 04/11/17 10:50 84 24 45 04/11/17 10:00 90 25 130/54 95 Mechanical Ventilator 35 04/11/17 09:36 73 14 98 04/11/17 09:34 75 14 98 04/11/17 09:29 35 04/11/17 09:05 75 12 45 04/11/17 09:03 98 04/11/17 09:00 76 28 78/49 96 Mechanical Ventilator 35 04/11/17 08:00 73 29 128/56 97 Mechanical Ventilator 35 04/11/17 08:00 35 04/11/17 08:00 79 04/11/17 07:27 81 26 45 04/11/17 07:25 76 14 100 Mechanical Ventilator 35 04/11/17 07:15 74 14 100 Mechanical Ventilator 04/11/17 07:00 70 18 128/45 98 Mechanical Ventilator 35 04/11/17 06:00 81 18 136/60 98 Mechanical Ventilator 35 04/11/17 05:17 85 16 45 04/11/17 05:00 81 18 140/56 98 Mechanical Ventilator 35 04/11/17 04:11 98.0 04/11/17 04:00 81 04/11/17 04:00 35 04/11/17 04:00 98.4 74 15 135/47 97 Mechanical Ventilator 35 04/11/17 03:21 90 25 45 04/11/17 03:00 80 18 127/41 98 Mechanical Ventilator 35 04/11/17 02:00 78 14 142/78 98 Mechanical Ventilator 35 04/11/17 01:27 81 14 45 04/11/17 01:15 78 15 100 Mechanical Ventilator 35 04/11/17 01:00 71 14 100 Mechanical Ventilator 04/11/17 01:00 88 14 136/74 98 Mechanical Ventilator 35 04/11/17 00:00 75 04/11/17 00:00 35 04/11/17 00:00 98.0 74 15 134/48 97 Mechanical Ventilator 35 04/10/17 23:29 73 15 45 04/10/17 23:00 80 14 131/48 98 Mechanical Ventilator 35 04/10/17 22:00 77 14 135/42 98 Mechanical Ventilator 35 04/10/17 21:16 72 14 45 04/10/17 21:00 74 14 129/48 98 Mechanical Ventilator 35 04/10/17 20:00 35 04/10/17 20:00 98.4 74 15 126/50 97 Mechanical Ventilator 35 04/10/17 20:00 66 04/10/17 19:17 88 14 45 04/10/17 19:10 67 14 100 Mechanical Ventilator 35 04/10/17 19:00 73 14 100/46 98 Mechanical Ventilator 35 04/10/17 19:00 66 14 100 Mechanical Ventilator 04/10/17 18:00 67 14 112/38 98 Mechanical Ventilator 35 Intake and Output 04/11/17 04/12/17 19:00 07:00 Intake Total 338.75 ml Output Total 530 ml Balance -191.25 ml IV Total 218.75 ml Tube Feeding 120 ml Output Urine Total 530 ml Laboratory Tests 04/11/17 04:00: White Blood Count 10.5, Red Blood Count 3.03L, Hemoglobin 9.3L, Hematocrit 29.2L , Mean Corpuscular Volume 96, Mean Corpuscular Hemoglobin 30.8, Mean Corpuscular Hemoglobin Concent 31.9L, Red Cell Distribution Width 14.6, Platelet Count 361, Mean Platelet Volume 5.3L, Neutrophils (%) (Auto) 63.6, Lymphocytes (%) (Auto) 21.7, Monocytes (%) (Auto) 7.3, Eosinophils (%) (Auto) 7.0H, Basophils (%) (Auto) 0.3, Prothrombin Time 11.4, Prothromb Time International Ratio 1.1, Activated Partial Thromboplast Time 32, Sodium Level 143, Potassium Level 3.1L, Chloride Level 108H, Carbon Dioxide Level 28, Anion Gap 7, Blood Urea Nitrogen 9, Creatinine 0.8, Estimat Glomerular Filtration Rate , Glucose Level 97, Calcium Level 9.4, Phosphorus Level 2.6, Magnesium Level 1.7L, Total Bilirubin 0.2, Aspartate Amino Transf (AST/SGOT) 13L, Alanine Aminotransferase (ALT/SGPT) 7L, Alkaline Phosphatase 66, Total Protein 6.0L, Albumin 2.0L, Globulin 4.0, Albumin/Globulin Ratio 0.5L 04/11/17 10:22: Arterial Blood pH 7.481H, Arterial Blood Partial Pressure CO2 38.2, Arterial Blood Partial Pressure O2 77.4, Arterial Blood HCO3 27.9H, Arterial Blood Oxygen Saturation 95.4, Arterial Blood Base Excess 4.2, Kelvin Test Positive Height (Feet): 5 Height (Inches): 3.00 Weight (Pounds): 152 Prachi Mejia M.D. Apr 11, 2017 17:02
--- NOTE | 2017-04-11 17:09 | General Progress Note ---
Assessment/Plan Problem List: (1) Acute respiratory failure with hypoxia and hypercapnia ICD Codes: J96.01 - Acute respiratory failure with hypoxia; J96.02 - Acute respiratory failure with hypercapnia SNOMED: 34518277, 85257360, 638884090 (2) Sepsis ICD Codes: A41.9 - Sepsis, unspecified organism SNOMED: 11542788 (3) Aspiration pneumonia ICD Codes: J69.0 - Pneumonitis due to inhalation of food and vomit SNOMED: 445237438 Qualifiers: Qualified Codes: J69.0 - Pneumonitis due to inhalation of food and vomit (4) Toxic metabolic encephalopathy ICD Codes: G92 - Toxic encephalopathy SNOMED: 460814039 (5) Hyperkalemia ICD Codes: E87.5 - Hyperkalemia SNOMED: 61607548 (6) JUJU (acute kidney injury) ICD Codes: N17.9 - Acute kidney failure, unspecified SNOMED: 67661734 (7) UTI (lower urinary tract infection) ICD Codes: N39.0 - UTI (lower urinary tract infection) SNOMED: 2900986 (8) Dementia ICD Codes: F03.90 - Dementia SNOMED: 84204611 (9) Schizophrenia ICD Codes: F20.9 - Schizophrenia, unspecified SNOMED: 04814177 (10) Seizure disorder ICD Codes: G40.909 - Epilepsy, unspecified, not intractable, without status epilepticus SNOMED: 847978297 Status: stable Assessment/Plan Cont ICU care Pulmonary and ID consulted Cont on vent and wean as tolerate Daily SBTs, possible extubation soon Broad-spectrum abx: vanco and zosyn (04/08-) F/u cultures Cont on vent and wean as tolerated Trend ABG Monitor CXR IVFs given JUJU s/p kayexylate for hyperkalemia Monitor CBC, BMP Cpmt tube feeds via NGT GI consulted as daughter now states she wants PEG given recurrent aspiration PNA Hold Eliquis given plan for PEG s/p PEG on 04/11/17 Cont other home meds including depakote Pain control, supportive care, bowel regimen HSQ, SCDs for DVT ppx PPI At the time of my involvement, the patient's condition was critical with high potential for and/or physiologic deterioration secondary to acute respiratory failure 2/2 aspiration pneumonia, sepsis, acute encephalopathy as delineated in the note above. On the above date of service, I spent a total of 40 minutes in the ICU evaluating, managing, and providing critical care services to this patient, including time spent documenting these activities, counseling patient/family, and coordinating care. Critical care services performed include: Telemetry Review Hemodynamic measurement interpretation Laboratory data review and interpretation Ventilator setting review, management, and adjustment Discussion of care plans with patient, family, and/or surrogate decision makers Discussion of patient's care with primary medical team, surgical team, and/or consulting service Decision to obtain further radiologic evaluation, after consideration of risk/ benefit ratio Decision to perform invasive procedure, after consideration of risk/benefit ratio Review of most recent microbiology results with assessment and modification of antimicrobial coverage Discussion of patient's code status and further advancement towards the ultimate goals of care Plan outlined above discussed with patient/family, SPINNING FRAME TENDER, 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 D/w pt's daughter regarding plan of care D/w ID re abx D/w GI re G tube D/w pulm re extubation FULL CODE per discussion w/ daughter Time of note may not reflect time of encounter. Subjective Date patient seen: Apr 11, 2017 Time patient seen: 17:07 ROS Limited/Unobtainable: No Allergies: Coded Allergies: NO KNOWN DRUG ALLERGIES (Unverified Allergy, Unknown, 07/29/14) Subjective No acute o/n events s/p G tube today Pt intubated, arousable to voide On SBT, doing well w/ good RSBIs ROS unobtainable as pt intubated Objective Last 24 Hour Vital Signs Date Time Temp Pulse Resp B/P (MAP) Pulse Ox O2 Delivery O2 Flow Rate FiO2 04/11/17 16:00 98.4 101 18 116/47 98 Mechanical Ventilator 35 04/11/17 16:00 93 04/11/17 16:00 35 04/11/17 15:25 89 19 45 04/11/17 15:00 88 39 100/33 96 Mechanical Ventilator 35 04/11/17 14:00 100 27 95/36 94 Mechanical Ventilator 35 04/11/17 13:11 86 20 100 Mechanical Ventilator 35 04/11/17 13:05 84 18 45 04/11/17 13:00 85 19 97 Mechanical Ventilator 04/11/17 13:00 90 36 115/37 94 Mechanical Ventilator 35 04/11/17 12:00 98.6 79 18 118/39 98 Mechanical Ventilator 35 04/11/17 12:00 78 04/11/17 11:03 35 04/11/17 11:00 75 20 119/46 98 Mechanical Ventilator 35 04/11/17 10:50 84 24 45 04/11/17 10:00 90 25 130/54 95 Mechanical Ventilator 35 04/11/17 09:36 73 14 98 04/11/17 09:34 75 14 98 04/11/17 09:29 35 04/11/17 09:05 75 12 45 04/11/17 09:03 98 04/11/17 09:00 76 28 78/49 96 Mechanical Ventilator 35 04/11/17 08:00 73 29 128/56 97 Mechanical Ventilator 35 04/11/17 08:00 35 04/11/17 08:00 79 04/11/17 07:27 81 26 45 04/11/17 07:25 76 14 100 Mechanical Ventilator 35 04/11/17 07:15 74 14 100 Mechanical Ventilator 04/11/17 07:00 70 18 128/45 98 Mechanical Ventilator 35 04/11/17 06:00 81 18 136/60 98 Mechanical Ventilator 35 04/11/17 05:17 85 16 45 04/11/17 05:00 81 18 140/56 98 Mechanical Ventilator 35 04/11/17 04:11 98.0 04/11/17 04:00 81 04/11/17 04:00 35 04/11/17 04:00 98.4 74 15 135/47 97 Mechanical Ventilator 35 04/11/17 03:21 90 25 45 04/11/17 03:00 80 18 127/41 98 Mechanical Ventilator 35 04/11/17 02:00 78 14 142/78 98 Mechanical Ventilator 35 04/11/17 01:27 81 14 45 04/11/17 01:15 78 15 100 Mechanical Ventilator 35 04/11/17 01:00 71 14 100 Mechanical Ventilator 04/11/17 01:00 88 14 136/74 98 Mechanical Ventilator 35 04/11/17 00:00 75 04/11/17 00:00 35 04/11/17 00:00 98.0 74 15 134/48 97 Mechanical Ventilator 35 04/10/17 23:29 73 15 45 04/10/17 23:00 80 14 131/48 98 Mechanical Ventilator 35 04/10/17 22:00 77 14 135/42 98 Mechanical Ventilator 35 04/10/17 21:16 72 14 45 04/10/17 21:00 74 14 129/48 98 Mechanical Ventilator 35 04/10/17 20:00 35 04/10/17 20:00 98.4 74 15 126/50 97 Mechanical Ventilator 35 04/10/17 20:00 66 04/10/17 19:17 88 14 45 04/10/17 19:10 67 14 100 Mechanical Ventilator 35 04/10/17 19:00 73 14 100/46 98 Mechanical Ventilator 35 04/10/17 19:00 66 14 100 Mechanical Ventilator 04/10/17 18:00 67 14 112/38 98 Mechanical Ventilator 35 Intake and Output 04/11/17 04/12/17 19:00 07:00 Intake Total 338.75 ml Output Total 530 ml Balance -191.25 ml IV Total 218.75 ml Tube Feeding 120 ml Output Urine Total 530 ml Laboratory Tests 04/11/17 04:00: White Blood Count 10.5, Red Blood Count 3.03L, Hemoglobin 9.3L, Hematocrit 29.2L , Mean Corpuscular Volume 96, Mean Corpuscular Hemoglobin 30.8, Mean Corpuscular Hemoglobin Concent 31.9L, Red Cell Distribution Width 14.6, Platelet Count 361, Mean Platelet Volume 5.3L, Neutrophils (%) (Auto) 63.6, Lymphocytes (%) (Auto) 21.7, Monocytes (%) (Auto) 7.3, Eosinophils (%) (Auto) 7.0H, Basophils (%) (Auto) 0.3, Prothrombin Time 11.4, Prothromb Time International Ratio 1.1, Activated Partial Thromboplast Time 32, Sodium Level 143, Potassium Level 3.1L, Chloride Level 108H, Carbon Dioxide Level 28, Anion Gap 7, Blood Urea Nitrogen 9, Creatinine 0.8, Estimat Glomerular Filtration Rate , Glucose Level 97, Calcium Level 9.4, Phosphorus Level 2.6, Magnesium Level 1.7L, Total Bilirubin 0.2, Aspartate Amino Transf (AST/SGOT) 13L, Alanine Aminotransferase (ALT/SGPT) 7L, Alkaline Phosphatase 66, Total Protein 6.0L, Albumin 2.0L, Globulin 4.0, Albumin/Globulin Ratio 0.5L 04/11/17 10:22: Arterial Blood pH 7.481H, Arterial Blood Partial Pressure CO2 38.2, Arterial Blood Partial Pressure O2 77.4, Arterial Blood HCO3 27.9H, Arterial Blood Oxygen Saturation 95.4, Arterial Blood Base Excess 4.2, Kelvin Test Positive Height (Feet): 5 Height (Inches): 3.00 Weight (Pounds): 152 Objective General: intubated, sedated Head: normocephalic, without obvious abnormality, atraumatic Eyes: conjunctivae/corneas clear. PERRL, EOM's intact Throat: lips, mucosa, and tongue normal. MMM Neck: supple, symmetrical, trachea midline, and no JVD Lungs: +rhonchi, R>L Heart: regular rate and rhythm, S1, S2 normal, no murmur, click, rub or gallop Abdomen: soft, non-tender, non-distended, bowel sounds normal Extremities: extremities normal, atraumatic, no cyanosis or edema Pulses: 2+ and symmetric Skin: skin color, texture, turgor normal; no rashes or lesions Neurologic: Prachi Taveras M.D. Apr 11, 2017 17:09
[2017-04-11] MEDS: Dyna-Hex 2% Top Sol 2oz TOPIC SCH (21:08)
[2017-04-11] MEDS: LORazepam Inj 2mg/ml 1ml IV PRN (21:32)
[2017-04-12] VITALS (24 sets, daily range): BP systolic 101–153; BP diastolic 32–103
[2017-04-12] MEDS: Albuterol/Ipratropium 3ml neb HHN SCH ×4 (01:08→18:53)
[2017-04-12] MEDS: Vancomycin 1gm in D5W 275ml IVPB SCH ×2 (02:40→13:56)
[2017-04-12] MEDS: Morphine Sulfate 4mg/ml Inj IVP PRN ×2 (03:39→22:52)
[2017-04-12 05:32] LABS: BASOPHILS % (AUTO) 0.3 % (0.0-2.0); LYMPHOCYTES % (AUTO) 17.8 % (20.0-45.0); MEAN CORPUSCULAR HEMOGLOBIN 31.6 PG (27.0-31.0); MEAN CORPUSCULAR HGB CONC 32.7 G/DL (32.0-36.0); MEAN CORPUSCULAR VOLUME 97 FL (80-99); MEAN PLATELET VOLUME 5.4 FL (6.5-10.1); MONOCYTES % (AUTO) 7.6 % (1.0-10.0); NEUTROPHILS % (AUTO) 71.3 % (45.0-75.0); PLATELET COUNT 366 K/UL (150-450); RED BLOOD COUNT 2.78 M/UL (4.20-5.40); RED CELL DISTRIBUTION WIDTH 14.3 % (11.6-14.8); WHITE BLOOD COUNT 11.7 K/UL (4.8-10.8)
[2017-04-12] MEDS: Piperacillin/Tazobactam 3.375 GM in D5W 55 ML IV SCH ×3 (05:54→21:56)
[2017-04-12] MEDS: NovoLOG Insulin Flexpen SUBQ SCH ×3 (06:01→18:35)
[2017-04-12 06:07] LABS: ALANINE AMINOTRANSFERASE 9 U/L (12-78); ALBUMIN/GLOBULIN RATIO 0.5 (1.0-2.7); ANION GAP 2 mmol/L (5-15); ASPARTATE AMINO TRANSFERASE 12 U/L (15-37); CALCIUM 9.7 MG/DL (8.5-10.1); CARBON DIOXIDE 32 MMOL/L (21-32); CHLORIDE 109 MMOL/L (98-107); CREATININE 0.7 MG/DL (0.55-1.30); MAGNESIUM 1.9 MG/DL (1.8-2.4); PHOSPHORUS 2.6 MG/DL (2.5-4.9); SODIUM 142 MMOL/L (136-145)
[2017-04-12 08:59] LABS: ABG PCO2 37.1 mmHg (35.0-45.0)
[2017-04-12 09:00] LABS: ABG ALLEN TEST POSITIVE
[2017-04-12] MEDS: Pantoprazole Inj IV SCH (09:15)
[2017-04-12] MEDS: Docusate 100mg/10ml Liq GT SCH ×2 (09:15→20:42)
[2017-04-12] MEDS: Valproic Acid 250mg/5ml Liquid GT SCH ×2 (09:16→20:42)
[2017-04-12] MEDS: Heparin 5000 units/ml inj SUBQ SCH (09:17)
--- NOTE | 2017-04-12 10:02 | General Progress Note ---
Assessment/Plan Problem List: (1) Acute respiratory failure with hypoxia and hypercapnia ICD Codes: J96.01 - Acute respiratory failure with hypoxia; J96.02 - Acute respiratory failure with hypercapnia SNOMED: 12711769, 63883084, 388823363 (2) Sepsis ICD Codes: A41.9 - Sepsis, unspecified organism SNOMED: 29617269 (3) Aspiration pneumonia ICD Codes: J69.0 - Pneumonitis due to inhalation of food and vomit SNOMED: 952507862 Qualifiers: Qualified Codes: J69.0 - Pneumonitis due to inhalation of food and vomit (4) Toxic metabolic encephalopathy ICD Codes: G92 - Toxic encephalopathy SNOMED: 236270336 (5) Hyperkalemia ICD Codes: E87.5 - Hyperkalemia SNOMED: 81687217 (6) JUJU (acute kidney injury) ICD Codes: N17.9 - Acute kidney failure, unspecified SNOMED: 77765396 (7) UTI (lower urinary tract infection) ICD Codes: N39.0 - UTI (lower urinary tract infection) SNOMED: 4105907 (8) Dementia ICD Codes: F03.90 - Dementia SNOMED: 64067824 (9) Schizophrenia ICD Codes: F20.9 - Schizophrenia, unspecified SNOMED: 29454089 (10) Seizure disorder ICD Codes: G40.909 - Epilepsy, unspecified, not intractable, without status epilepticus SNOMED: 077401405 Status: stable Assessment/Plan Cont ICU care Pulmonary and ID consulted Cont on vent and wean as tolerate Daily SBTs Check ABG --> possible extubation today Broad-spectrum abx: vanco and zosyn (04/08-) F/u cultures Cont on vent and wean as tolerated Trend ABG Monitor CXR IVFs given JUJU s/p kayexylate for hyperkalemia Monitor CBC, BMP Cont tube feeds via PEG GI consulted as daughter now states she wants PEG given recurrent aspiration PNA 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 On the above date of service, I spent a total of 42 minutes in the ICU evaluating, managing, and providing critical care services to this patient, including time spent documenting these activities, counseling patient/family, and coordinating care. Critical care services performed include: Telemetry Review Hemodynamic measurement interpretation Laboratory data review and interpretation Ventilator setting review, management, and adjustment Discussion of care plans with patient, family, and/or surrogate decision makers Discussion of patient's care with primary medical team, surgical team, and/or consulting service Decision to obtain further radiologic evaluation, after consideration of risk/ benefit ratio Decision to perform invasive procedure, after consideration of risk/benefit ratio Review of most recent microbiology results with assessment and modification of antimicrobial coverage Discussion of patient's code status and further advancement towards the ultimate goals of care Plan outlined above discussed with patient/family, INTERIOR DESIGNER, 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 D/w pt's daughter regarding plan of care D/w ID re abx D/w GI re resuming Eliquis D/w pulm re extubation FULL CODE per discussion w/ daughter Time of note may not reflect time of encounter. Subjective Date patient seen: Apr 12, 2017 Time patient seen: 10:02 ROS Limited/Unobtainable: Yes Allergies: Coded Allergies: NO KNOWN DRUG ALLERGIES (Unverified Allergy, Unknown, 07/29/14) Subjective No acute o/n events s/p G tube yesterday Tolerated SBT yesterday Pt intubated, arousable to voice Current on SBP w/ PS 8 w/ good RSBIs and tidal volumes ROS unobtainable as pt intubated Objective Last 24 Hour Vital Signs Date Time Temp Pulse Resp B/P (MAP) Pulse Ox O2 Delivery O2 Flow Rate FiO2 04/12/17 09:34 98 04/12/17 09:32 85 24 35 04/12/17 08:00 92 04/12/17 08:00 35 04/12/17 08:00 99.8 81 18 123/44 97 Mechanical Ventilator 35 04/12/17 07:47 88 24 97 Mechanical Ventilator 35 04/12/17 07:23 74 13 100 Mechanical Ventilator 35 04/12/17 07:16 76 21 35 04/12/17 07:00 82 18 137/55 100 Mechanical Ventilator 35 04/12/17 06:00 78 18 128/64 100 Mechanical Ventilator 35 04/12/17 05:14 78 19 35 04/12/17 05:00 86 18 131/41 100 Mechanical Ventilator 35 04/12/17 04:09 98.4 04/12/17 04:00 98.4 98 18 150/64 98 Mechanical Ventilator 35 04/12/17 04:00 35 04/12/17 04:00 91 04/12/17 03:23 96 23 35 04/12/17 03:00 94 20 145/62 100 Mechanical Ventilator 35 04/12/17 02:00 88 20 145/65 100 Mechanical Ventilator 35 04/12/17 01:20 79 14 100 Mechanical Ventilator 35 04/12/17 01:07 76 14 98 Mechanical Ventilator 35 04/12/17 01:06 77 16 35 04/12/17 01:00 77 20 131/51 100 Mechanical Ventilator 35 04/12/17 00:00 35 04/12/17 00:00 75 04/12/17 00:00 98.4 95 18 129/50 98 Mechanical Ventilator 35 04/11/17 23:21 88 22 35 04/11/17 23:00 85 20 118/48 100 Mechanical Ventilator 35 04/11/17 22:00 89 20 133/58 100 Mechanical Ventilator 35 04/11/17 21:24 83 20 35 04/11/17 21:00 85 20 121/45 100 Mechanical Ventilator 35 04/11/17 20:00 82 04/11/17 20:00 35 04/11/17 20:00 98.6 86 18 123/35 98 Mechanical Ventilator 35 04/11/17 19:42 81 7 100 Mechanical Ventilator 35 04/11/17 19:32 83 24 100 Mechanical Ventilator 35 04/11/17 19:29 83 24 35 04/11/17 19:00 97 26 96/55 100 Mechanical Ventilator 35 04/11/17 18:00 83 31 121/42 98 Mechanical Ventilator 35 04/11/17 17:02 92 22 45 04/11/17 17:00 35 04/11/17 17:00 90 26 98/37 98 Mechanical Ventilator 35 04/11/17 16:00 98.4 101 18 116/47 98 Mechanical Ventilator 35 04/11/17 16:00 93 04/11/17 16:00 35 04/11/17 15:25 89 19 45 04/11/17 15:00 88 39 100/33 96 Mechanical Ventilator 35 04/11/17 14:00 100 27 95/36 94 Mechanical Ventilator 35 04/11/17 13:11 86 20 100 Mechanical Ventilator 35 04/11/17 13:05 84 18 45 04/11/17 13:00 85 19 97 Mechanical Ventilator 04/11/17 13:00 90 36 115/37 94 Mechanical Ventilator 35 04/11/17 12:00 98.6 79 18 118/39 98 Mechanical Ventilator 35 04/11/17 12:00 78 04/11/17 11:03 35 04/11/17 11:00 75 20 119/46 98 Mechanical Ventilator 35 04/11/17 10:50 84 24 45 Intake and Output 04/12/17 04/13/17 19:00 07:00 Intake Total 40 ml Output Total 90 ml Balance -50 ml Tube Feeding 40 ml Output Urine Total 90 ml Laboratory Tests 04/11/17 10:22: Arterial Blood pH 7.481H, Arterial Blood Partial Pressure CO2 38.2, Arterial Blood Partial Pressure O2 77.4, Arterial Blood HCO3 27.9H, Arterial Blood Oxygen Saturation 95.4, Arterial Blood Base Excess 4.2, Kelvin Test Positive 04/12/17 01:30: Vancomycin Level Trough 5.6 04/12/17 04:00: Sodium Level 142, Potassium Level 3.0L, Chloride Level 109H, Carbon Dioxide Level 32, Anion Gap 2L, Blood Urea Nitrogen 9, Creatinine 0.7, Estimat Glomerular Filtration Rate , Glucose Level 146H, Calcium Level 9.7, Phosphorus Level 2.6, Magnesium Level 1.9, Total Bilirubin 0.3, Aspartate Amino Transf (AST /SGOT) 12L, Alanine Aminotransferase (ALT/SGPT) 9L, Alkaline Phosphatase 62, Total Protein 6.0L, Albumin 2.0L, Globulin 4.0, Albumin/Globulin Ratio 0.5L 04/12/17 05:00: White Blood Count 11.7H, Red Blood Count 2.78L, Hemoglobin 8.8L, Hematocrit 26.9L, Mean Corpuscular Volume 97, Mean Corpuscular Hemoglobin 31.6H, Mean Corpuscular Hemoglobin Concent 32.7, Red Cell Distribution Width 14.3, Platelet Count 366, Mean Platelet Volume 5.4L, Neutrophils (%) (Auto) 71.3, Lymphocytes ( %) (Auto) 17.8L, Monocytes (%) (Auto) 7.6, Eosinophils (%) (Auto) 3.0, Basophils (%) (Auto) 0.3 04/12/17 08:50: Arterial Blood pH 7.488H, Arterial Blood Partial Pressure CO2 37.1, Arterial Blood Partial Pressure O2 92.8, Arterial Blood HCO3 27.5H, Arterial Blood Oxygen Saturation 97.0, Arterial Blood Base Excess 4.0, Kelvin Test Positive Height (Feet): 5 Height (Inches): 3.00 Weight (Pounds): 152 Objective General: intubated, sedated Head: normocephalic, without obvious abnormality, atraumatic Eyes: conjunctivae/corneas clear. PERRL, EOM's intact Throat: lips, mucosa, and tongue normal. MMM Neck: supple, symmetrical, trachea midline, and no JVD Lungs: +rhonchi, R>L Heart: regular rate and rhythm, S1, S2 normal, no murmur, click, rub or gallop Abdomen: soft, non-tender, non-distended, bowel sounds normal Extremities: extremities normal, atraumatic, no cyanosis or edema Pulses: 2+ and symmetric Skin: skin color, texture, turgor normal; no rashes or lesions Neurologic: Prachi Taveras M.D. Apr 12, 2017 10:02
--- NOTE | 2017-04-12 10:13 | Pulmonolgy Critical Care Note ---
Critical Care - Asmt/Plan Problems: (1) Acute respiratory failure (2) Acute encephalopathy (3) Aspiration pneumonia (4) Dementia (5) Diabetes mellitus Respiratory: monitor respiratory rate, adjust FIO2, CXR, weaning trial, other - extubate if tolerate weaning Cardiac: continue to monitor HR/BP Renal: F/U I&O, check electrolytes Gastrointestinal: continue feedings/current rate Endocrine: monitor blood sugar, check HgA1C Neurologic: PRN Ativan, PRN Morphine Affect: PRN ativan Prophylaxis: Heparin Notes Reviewed: cardio, renal Discussed with: nurses, consultants, counseling case manageradult manager - Objective Last 24 Hour Vital Signs Date Time Temp Pulse Resp B/P (MAP) Pulse Ox O2 Delivery O2 Flow Rate FiO2 04/12/17 10:00 86 14 144/59 98 Mechanical Ventilator 35 04/12/17 09:34 98 04/12/17 09:32 85 24 35 04/12/17 09:00 85 15 114/59 98 Mechanical Ventilator 35 04/12/17 08:00 92 04/12/17 08:00 35 04/12/17 08:00 99.8 81 18 123/44 97 Mechanical Ventilator 35 04/12/17 07:47 88 24 97 Mechanical Ventilator 35 04/12/17 07:23 74 13 100 Mechanical Ventilator 35 04/12/17 07:16 76 21 35 04/12/17 07:00 82 18 137/55 100 Mechanical Ventilator 35 04/12/17 06:00 78 18 128/64 100 Mechanical Ventilator 35 04/12/17 05:14 78 19 35 04/12/17 05:00 86 18 131/41 100 Mechanical Ventilator 35 04/12/17 04:09 98.4 04/12/17 04:00 98.4 98 18 150/64 98 Mechanical Ventilator 35 04/12/17 04:00 35 04/12/17 04:00 91 04/12/17 03:23 96 23 35 04/12/17 03:00 94 20 145/62 100 Mechanical Ventilator 35 04/12/17 02:00 88 20 145/65 100 Mechanical Ventilator 35 04/12/17 01:20 79 14 100 Mechanical Ventilator 35 04/12/17 01:07 76 14 98 Mechanical Ventilator 35 04/12/17 01:06 77 16 35 04/12/17 01:00 77 20 131/51 100 Mechanical Ventilator 35 04/12/17 00:00 35 04/12/17 00:00 75 04/12/17 00:00 98.4 95 18 129/50 98 Mechanical Ventilator 35 04/11/17 23:21 88 22 35 04/11/17 23:00 85 20 118/48 100 Mechanical Ventilator 35 04/11/17 22:00 89 20 133/58 100 Mechanical Ventilator 35 04/11/17 21:24 83 20 35 04/11/17 21:00 85 20 121/45 100 Mechanical Ventilator 35 04/11/17 20:00 82 04/11/17 20:00 35 04/11/17 20:00 98.6 86 18 123/35 98 Mechanical Ventilator 35 04/11/17 19:42 81 7 100 Mechanical Ventilator 35 04/11/17 19:32 83 24 100 Mechanical Ventilator 35 04/11/17 19:29 83 24 35 04/11/17 19:00 97 26 96/55 100 Mechanical Ventilator 35 04/11/17 18:00 83 31 121/42 98 Mechanical Ventilator 35 04/11/17 17:02 92 22 45 04/11/17 17:00 35 04/11/17 17:00 90 26 98/37 98 Mechanical Ventilator 35 04/11/17 16:00 98.4 101 18 116/47 98 Mechanical Ventilator 35 04/11/17 16:00 93 04/11/17 16:00 35 04/11/17 15:25 89 19 45 04/11/17 15:00 88 39 100/33 96 Mechanical Ventilator 35 04/11/17 14:00 100 27 95/36 94 Mechanical Ventilator 35 04/11/17 13:11 86 20 100 Mechanical Ventilator 35 04/11/17 13:05 84 18 45 04/11/17 13:00 85 19 97 Mechanical Ventilator 04/11/17 13:00 90 36 115/37 94 Mechanical Ventilator 35 04/11/17 12:00 98.6 79 18 118/39 98 Mechanical Ventilator 35 04/11/17 12:00 78 04/11/17 11:03 35 04/11/17 11:00 75 20 119/46 98 Mechanical Ventilator 35 04/11/17 10:50 84 24 45 Status: awake Condition: critical, improving HEENT: atraumatic Neck: full ROM Lungs: chest wall tender Heart: HR/BP stable Abdomen: soft, non-tender, active bowel sounds Extremities: no C/C/E, edema Decubiti: location Micro: Microbiology Date/Time Source Procedure Growth Status 04/09/17 12:25 Sputum Gram Stain - Final Resulted 04/09/17 12:25 Sputum Culture - Preliminary Staphylococcus Aureus Zaria Albicans Resulted Accucheck: 120 Critical Care - Subjective ROS Limited/Unobtainable: Yes FI02: 35 Vent Support Breath Rate: 10 Vent Support Mode: IMV/SIMV Vent Tidal Volume: 500 Sputum Amount: Scant PEEP: 0.0 PIP: 20 Fluids: kvo Tube Feeding Amount: 40 I&O: Intake and Output 04/12/17 04/13/17 19:00 07:00 Intake Total 80 ml Output Total 120 ml Balance -40 ml Tube Feeding 80 ml Output Urine Total 120 ml CXR: et in good position ET-Tube: 7.5 ET Position: 22 Labs: Laboratory Tests Test 04/11/17 10:22 04/12/17 01:30 04/12/17 04:00 04/12/17 05:00 Arterial Blood pH 7.481 (7.350-7.450) Arterial Blood Partial Pressure CO2 38.2 mmHg (35.0-45.0) Arterial Blood Partial Pressure O2 77.4 mmHg (75.0-100.0) Arterial Blood HCO3 27.9 mmol/L (22.0-26.0) H Arterial Blood Oxygen Saturation 95.4 % (92.0-98.0) Arterial Blood Base Excess 4.2 Kelvin Test Positive Vancomycin Level Trough 5.6 ug/mL (5.0-12.0) Sodium Level 142 MMOL/L (136-145) Potassium Level 3.0 MMOL/L (3.5-5.1) L Chloride Level 109 MMOL/L (98-107) H Carbon Dioxide Level 32 MMOL/L (21-32) Anion Gap 2 mmol/L (5-15) L Blood Urea Nitrogen 9 mg/dL (7-18) Creatinine 0.7 MG/DL (0.55-1.30) Estimat Glomerular Filtration Rate mL/min (>60) Glucose Level 146 MG/DL (74-106) H Calcium Level 9.7 MG/DL (8.5-10.1) Phosphorus Level 2.6 MG/DL (2.5-4.9) Magnesium Level 1.9 MG/DL (1.8-2.4) Total Bilirubin 0.3 MG/DL (0.2-1.0) Aspartate Amino Transf (AST/SGOT) 12 U/L (15-37) L Alanine Aminotransferase (ALT/SGPT) 9 U/L (12-78) L Alkaline Phosphatase 62 U/L (46-116) Total Protein 6.0 G/DL (6.4-8.2) L Albumin 2.0 G/DL (3.4-5.0) L Globulin 4.0 g/dL Albumin/Globulin Ratio 0.5 (1.0-2.7) L White Blood Count 11.7 K/UL (4.8-10.8) H Red Blood Count 2.78 M/UL (4.20-5.40) L Hemoglobin 8.8 G/DL (12.0-16.0) L Hematocrit 26.9 % (37.0-47.0) L Mean Corpuscular Volume 97 FL (80-99) Mean Corpuscular Hemoglobin 31.6 PG (27.0-31.0) H Mean Corpuscular Hemoglobin Concent 32.7 G/DL (32.0-36.0) Red Cell Distribution Width 14.3 % (11.6-14.8) Platelet Count 366 K/UL (150-450) Mean Platelet Volume 5.4 FL (6.5-10.1) L Neutrophils (%) (Auto) 71.3 % (45.0-75.0) Lymphocytes (%) (Auto) 17.8 % (20.0-45.0) L Monocytes (%) (Auto) 7.6 % (1.0-10.0) Eosinophils (%) (Auto) 3.0 % (0.0-3.0) Basophils (%) (Auto) 0.3 % (0.0-2.0) Test 04/12/17 08:50 Arterial Blood pH 7.488 (7.350-7.450) Arterial Blood Partial Pressure CO2 37.1 mmHg (35.0-45.0) Arterial Blood Partial Pressure O2 92.8 mmHg (75.0-100.0) Arterial Blood HCO3 27.5 mmol/L (22.0-26.0) H Arterial Blood Oxygen Saturation 97.0 % (92.0-98.0) Arterial Blood Base Excess 4.0 Kelvin Test Positive DWAYNE CHERY Apr 12, 2017 10:13
--- NOTE | 2017-04-12 12:02 | Diagnostic Imaging Report ---
Indication: Dyspnea Technique: XRAY Chest 1v Comparison: 04/11/2017 Findings: ET tube and left IJ approach central line unchanged in position. NG tube has been removed. interval gastrostomy tube placement. Heart size and mediastinal contours are stable. No significant interval change in mild interstitial opacification edema and hazy right-sided airspace opacities. There is blunting of the right costophrenic sulcus suggesting a small right pleural effusion. Is no pneumothorax. The bones are diffusely demineralized. Dense material projecting over the T12 vertebral body may be sequela from prior kyphoplasty/vertebroplasty. Degenerative changes are also noted in the shoulders. No acute osseous abnormality is seen. Impression: Removal of NG tube with interval gastrostomy tube placement. No significant interval change in appearance of the heart and lungs compared to one day prior.
--- NOTE | 2017-04-12 12:17 | GI Progress Note ---
Assessment/Plan Problems: (1) Dementia ICD Codes: F03.90 - Dementia SNOMED: 57827809 (2) Sepsis ICD Codes: A41.9 - Sepsis, unspecified organism SNOMED: 06033220 (3) Anemia ICD Codes: D64.9 - Anemia, unspecified SNOMED: 218449678 (4) Encounter for PEG (percutaneous endoscopic gastrostomy) ICD Codes: Z43.1 - Encounter for attention to gastrostomy SNOMED: 495131462, 909266366 Status: unchanged Status Narrative Discussed with Dr. Morales. Assessment/Plan SUMMARY OF FINDINGS: 1. Gastritis, status post biopsy. 2. Status post successful G-tube placement. RECOMMENDATIONS: Abdominal binder. Elevate head of the bed at all times. G-tube flush. G-tube care. GTFs per dietary to goal prn transfusions ppi fu labs The patient was seen and examined at bedside and all new and available data was reviewed in the patients chart. I agree with the above findings, impression and plan. (Patient seen earlier today. Signature stamp does not reflect patient encounter time.). - Precious Morales MD Subjective Subjective limited Objective Last 24 Hour Vital Signs Date Time Temp Pulse Resp B/P (MAP) Pulse Ox O2 Delivery O2 Flow Rate FiO2 04/12/17 11:56 35 04/12/17 11:00 85 15 130/69 98 Mechanical Ventilator 35 04/12/17 10:57 87 24 35 04/12/17 10:00 86 14 144/59 98 Mechanical Ventilator 35 04/12/17 09:34 98 04/12/17 09:32 85 24 35 04/12/17 09:00 85 15 114/59 98 Mechanical Ventilator 35 04/12/17 08:00 92 04/12/17 08:00 35 04/12/17 08:00 99.8 81 18 123/44 97 Mechanical Ventilator 35 04/12/17 07:47 88 24 97 Mechanical Ventilator 35 04/12/17 07:23 74 13 100 Mechanical Ventilator 35 04/12/17 07:16 76 21 35 04/12/17 07:00 82 18 137/55 100 Mechanical Ventilator 35 04/12/17 06:00 78 18 128/64 100 Mechanical Ventilator 35 04/12/17 05:14 78 19 35 04/12/17 05:00 86 18 131/41 100 Mechanical Ventilator 35 04/12/17 04:09 98.4 04/12/17 04:00 98.4 98 18 150/64 98 Mechanical Ventilator 35 04/12/17 04:00 35 04/12/17 04:00 91 04/12/17 03:23 96 23 35 04/12/17 03:00 94 20 145/62 100 Mechanical Ventilator 35 04/12/17 02:00 88 20 145/65 100 Mechanical Ventilator 35 04/12/17 01:20 79 14 100 Mechanical Ventilator 35 04/12/17 01:07 76 14 98 Mechanical Ventilator 35 04/12/17 01:06 77 16 35 04/12/17 01:00 77 20 131/51 100 Mechanical Ventilator 35 04/12/17 00:00 35 04/12/17 00:00 75 04/12/17 00:00 98.4 95 18 129/50 98 Mechanical Ventilator 35 04/11/17 23:21 88 22 35 04/11/17 23:00 85 20 118/48 100 Mechanical Ventilator 35 04/11/17 22:00 89 20 133/58 100 Mechanical Ventilator 35 04/11/17 21:24 83 20 35 04/11/17 21:00 85 20 121/45 100 Mechanical Ventilator 35 04/11/17 20:00 82 04/11/17 20:00 35 04/11/17 20:00 98.6 86 18 123/35 98 Mechanical Ventilator 35 04/11/17 19:42 81 7 100 Mechanical Ventilator 35 04/11/17 19:32 83 24 100 Mechanical Ventilator 35 04/11/17 19:29 83 24 35 04/11/17 19:00 97 26 96/55 100 Mechanical Ventilator 35 04/11/17 18:00 83 31 121/42 98 Mechanical Ventilator 35 04/11/17 17:02 92 22 45 04/11/17 17:00 35 04/11/17 17:00 90 26 98/37 98 Mechanical Ventilator 35 04/11/17 16:00 98.4 101 18 116/47 98 Mechanical Ventilator 35 04/11/17 16:00 93 04/11/17 16:00 35 04/11/17 15:25 89 19 45 04/11/17 15:00 88 39 100/33 96 Mechanical Ventilator 35 04/11/17 14:00 100 27 95/36 94 Mechanical Ventilator 35 12/13/17 13:11 86 20 100 Mechanical Ventilator 35 04/11/17 13:05 84 18 45 04/11/17 13:00 85 19 97 Mechanical Ventilator 04/11/17 13:00 90 36 115/37 94 Mechanical Ventilator 35 Intake and Output 04/12/17 04/13/17 19:00 07:00 Intake Total 161.25 ml Output Total 165 ml Balance -3.75 ml IV Total 41.25 ml Tube Feeding 120 ml Output Urine Total 165 ml Laboratory Tests Test 04/12/17 01:30 04/12/17 04:00 04/12/17 05:00 04/12/17 08:50 Vancomycin Level Trough 5.6 ug/mL (5.0-12.0) Sodium Level 142 MMOL/L (136-145) Potassium Level 3.0 MMOL/L (3.5-5.1) L Chloride Level 109 MMOL/L (98-107) H Carbon Dioxide Level 32 MMOL/L (21-32) Anion Gap 2 mmol/L (5-15) L Blood Urea Nitrogen 9 mg/dL (7-18) Creatinine 0.7 MG/DL (0.55-1.30) Estimat Glomerular Filtration Rate mL/min (>60) Glucose Level 146 MG/DL (74-106) H Calcium Level 9.7 MG/DL (8.5-10.1) Phosphorus Level 2.6 MG/DL (2.5-4.9) Magnesium Level 1.9 MG/DL (1.8-2.4) Total Bilirubin 0.3 MG/DL (0.2-1.0) Aspartate Amino Transf (AST/SGOT) 12 U/L (15-37) L Alanine Aminotransferase (ALT/SGPT) 9 U/L (12-78) L Alkaline Phosphatase 62 U/L (46-116) Total Protein 6.0 G/DL (6.4-8.2) L Albumin 2.0 G/DL (3.4-5.0) L Globulin 4.0 g/dL Albumin/Globulin Ratio 0.5 (1.0-2.7) L White Blood Count 11.7 K/UL (4.8-10.8) H Red Blood Count 2.78 M/UL (4.20-5.40) L Hemoglobin 8.8 G/DL (12.0-16.0) L Hematocrit 26.9 % (37.0-47.0) L Mean Corpuscular Volume 97 FL (80-99) Mean Corpuscular Hemoglobin 31.6 PG (27.0-31.0) H Mean Corpuscular Hemoglobin Concent 32.7 G/DL (32.0-36.0) Red Cell Distribution Width 14.3 % (11.6-14.8) Platelet Count 366 K/UL (150-450) Mean Platelet Volume 5.4 FL (6.5-10.1) L Neutrophils (%) (Auto) 71.3 % (45.0-75.0) Lymphocytes (%) (Auto) 17.8 % (20.0-45.0) L Monocytes (%) (Auto) 7.6 % (1.0-10.0) Eosinophils (%) (Auto) 3.0 % (0.0-3.0) Basophils (%) (Auto) 0.3 % (0.0-2.0) Arterial Blood pH 7.488 (7.350-7.450) Arterial Blood Partial Pressure CO2 37.1 mmHg (35.0-45.0) Arterial Blood Partial Pressure O2 92.8 mmHg (75.0-100.0) Arterial Blood HCO3 27.5 mmol/L (22.0-26.0) H Arterial Blood Oxygen Saturation 97.0 % (92.0-98.0) Arterial Blood Base Excess 4.0 Kelvin Test Positive Height (Feet): 5 Height (Inches): 3.00 Weight (Pounds): 152 General Appearance: alert Cardiovascular: normal rate Respiratory/Chest: other - mech vent Abdominal Exam: GT site - c/d/i Yvonne Grace NAndrew Apr 12, 2017 12:17 BESSY MORALES Apr 13, 2017 08:58
[2017-04-12 15:21] LABS: ABG ALLEN TEST POSITIVE; ABG BASE EXCESS 0.1
--- NOTE | 2017-04-12 16:11 | Infectious Diseases Prog Note ---
Assessment/Plan Assessment/Plan ASSESSMENT AND PLAN: 1. sepsis, leukocytosis, fevers, sirs, staph aureus pna, uti, respiratory failure - clinically better, fevers and leukocytosis improved - continue vancomycin and zosyn - check sc final, labs and chest x-ray - icu care, vent care, weaning - continue per primary and consultants - weaning per pulmonary medicine 2. The patient has a history of hypertension. 3. Diabetes. 4. Hypothyroidism. 5. Hyperlipidemia. 6. Blood sugar and blood pressure control per primary. 7. Subdural hematoma. 8. Seizure history. 9. Paroxysmal supraventricular tachycardia history. 10. Anemia. 11. Deep venous thrombosis. 12. Chronic back pain. 13. Asthma. 14. Anxiety. 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 16. History of urinary tract infections. 17. History of cerebrovascular accident. 18. Aspiration risk. 19. Allergies are negative. 20. Family history is noncontributory. 21. MAR is noted. 22. Social history is negative. 23. Case was discussed with RN. 24. Continue treatment per primary consultants. 25. Skin care protocol. 26. ICU care. 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 Subjective Constitutional: Reports: other - on vent, Denies: fever HEENT: Reports: congestion Respiratory: Reports: shortness of breath Cardiovascular: Denies: chest pain Gastrointestinal/Abdominal: Reports: vomiting, other - no abdominal pain, Denies: nausea, diarrhea Genitourinary: Reports: other - + cota Neurologic: Reports: weakness, Denies: headache Psychiatric: Reports: no symptoms, depression Skin: Denies: rash Hematologic: Denies: bleeding Musculoskeletal: Denies: pain Allergies: Coded Allergies: NO KNOWN DRUG ALLERGIES (Unverified Allergy, Unknown, 07/29/14) Objective Vital Signs Last 24 Hour Vital Signs Date Time Temp Pulse Resp B/P (MAP) Pulse Ox O2 Delivery O2 Flow Rate FiO2 04/12/17 15:00 90 18 35 04/12/17 14:00 98 19 115/39 93 Mechanical Ventilator 04/12/17 13:22 81 18 99 Mechanical Ventilator 35 04/12/17 13:02 77 18 35 04/12/17 13:02 72 19 97 Mechanical Ventilator 04/12/17 13:00 80 22 103/77 100 Mechanical Ventilator 04/12/17 12:00 70 04/12/17 12:00 35 04/12/17 12:00 98.6 68 15 122/46 97 Mechanical Ventilator 35 04/12/17 11:56 35 04/12/17 11:00 85 15 130/69 98 Mechanical Ventilator 35 04/12/17 10:57 87 24 35 04/12/17 10:00 86 14 144/59 98 Mechanical Ventilator 35 04/12/17 09:34 98 04/12/17 09:32 85 24 35 04/12/17 09:00 85 15 114/59 98 Mechanical Ventilator 35 04/12/17 08:00 92 04/12/17 08:00 35 04/12/17 08:00 99.8 81 18 123/44 97 Mechanical Ventilator 35 04/12/17 07:47 88 24 97 Mechanical Ventilator 35 04/12/17 07:23 74 13 100 Mechanical Ventilator 35 04/12/17 07:16 76 21 35 04/12/17 07:00 82 18 137/55 100 Mechanical Ventilator 35 04/12/17 06:00 78 18 128/64 100 Mechanical Ventilator 35 04/12/17 05:14 78 19 35 04/12/17 05:00 86 18 131/41 100 Mechanical Ventilator 35 04/12/17 04:09 98.4 04/12/17 04:00 98.4 98 18 150/64 98 Mechanical Ventilator 35 04/12/17 04:00 35 04/12/17 04:00 91 04/12/17 03:23 96 23 35 04/12/17 03:00 94 20 145/62 100 Mechanical Ventilator 35 04/12/17 02:00 88 20 145/65 100 Mechanical Ventilator 35 04/12/17 01:20 79 14 100 Mechanical Ventilator 35 04/12/17 01:07 76 14 98 Mechanical Ventilator 35 04/12/17 01:06 77 16 35 04/12/17 01:00 77 20 131/51 100 Mechanical Ventilator 35 04/12/17 00:00 35 04/12/17 00:00 75 04/12/17 00:00 98.4 95 18 129/50 98 Mechanical Ventilator 35 04/11/17 23:21 88 22 35 04/11/17 23:00 85 20 118/48 100 Mechanical Ventilator 35 04/11/17 22:00 89 20 133/58 100 Mechanical Ventilator 35 04/11/17 21:24 83 20 35 04/11/17 21:00 85 20 121/45 100 Mechanical Ventilator 35 04/11/17 20:00 82 04/11/17 20:00 35 04/11/17 20:00 98.6 86 18 123/35 98 Mechanical Ventilator 35 04/11/17 19:42 81 7 100 Mechanical Ventilator 35 04/11/17 19:32 83 24 100 Mechanical Ventilator 35 04/11/17 19:29 83 24 35 04/11/17 19:00 97 26 96/55 100 Mechanical Ventilator 35 04/11/17 18:00 83 31 121/42 98 Mechanical Ventilator 35 04/11/17 17:02 92 22 45 04/11/17 17:00 35 04/11/17 17:00 90 26 98/37 98 Mechanical Ventilator 35 Height (Feet): 5 Height (Inches): 3.00 Weight (Pounds): 152 General Appearance: no acute distress, other - + vent, weaning HEENT: normocephalic, atraumatic, anicteric, EOMI, no JVD, other - oral - intubated Respiratory/Chest: crackles/rales, rhonchi - bilaterally Cardiovascular: normal rate, regular rhythm, no gallop/murmur, no JVD Abdomen: normal bowel sounds, soft, non tender, no organomegaly, non distended Genitourinary: other - + cota - urine clear Extremities: no cyanosis Skin: no rash 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 Interim placement enteric nasogastric tube, tip projected at the level of the gastric fundus, proximal port beyond the gastroesophageal junction. There is increasing hazy opacity in the right lung. There is persistent right lung volume loss. There is persistent perihilar interstitial prominence and bronchial wall thickening. Left jugular central venous catheter remains. Impression: Increasing hazy consolidation of the right lung Satisfactory nasogastric intubation. Patient's nurse was notified of this finding previously Other stable findings as described 04/12 - chest x-rat Findings: ET tube and left IJ approach central line unchanged in position. NG tube has been removed. interval gastrostomy tube placement. Heart size and mediastinal contours are stable. No significant interval change in mild interstitial opacification edema and hazy right-sided airspace opacities. There is blunting of the right costophrenic sulcus suggesting a small right pleural effusion. Is no pneumothorax. The bones are diffusely demineralized. Dense material projecting over the T12 vertebral body may be sequela from prior kyphoplasty/vertebroplasty. Degenerative changes are also noted in the shoulders. No acute osseous abnormality is seen. Impression: Removal of NG tube with interval gastrostomy tube placement. No significant interval change in appearance of the heart and lungs compared to one day prior. Microbiology Date/Time Source Procedure Growth Status 04/08/17 21:05 Blood Blood Culture - Preliminary NO GROWTH AFTER 72 HOURS Resulted 04/09/17 12:25 Sputum Gram Stain - Final Resulted 04/09/17 12:25 Sputum Culture - Preliminary Staphylococcus Aureus Zaria Albicans Resulted 04/08/17 23:50 Urine,Clean Catch Urine Culture - Final NO GROWTH AFTER 48 HOURS Complete 04/08/17 23:50 Rectum VRE Culture - Final Enterococcus Faecium - Vre Complete Microbiology Date/Time Source Procedure Growth Status 04/08/17 21:05 Blood Blood Culture - Preliminary NO GROWTH AFTER 72 HOURS Resulted 04/09/17 12:25 Sputum Gram Stain - Final Resulted 04/09/17 12:25 Sputum Culture - Preliminary Staphylococcus Aureus Zaria Albicans Resulted 04/08/17 23:50 Urine,Clean Catch Urine Culture - Final NO GROWTH AFTER 48 HOURS Complete 04/08/17 23:50 Rectum VRE Culture - Final Enterococcus Faecium - Vre Complete Laboratory Tests Test 04/12/17 01:30 04/12/17 04:00 04/12/17 05:00 04/12/17 08:50 Vancomycin Level Trough 5.6 ug/mL (5.0-12.0) Sodium Level 142 MMOL/L (136-145) Potassium Level 3.0 MMOL/L (3.5-5.1) L Chloride Level 109 MMOL/L (98-107) H Carbon Dioxide Level 32 MMOL/L (21-32) Anion Gap 2 mmol/L (5-15) L Blood Urea Nitrogen 9 mg/dL (7-18) Creatinine 0.7 MG/DL (0.55-1.30) Estimat Glomerular Filtration Rate mL/min (>60) Glucose Level 146 MG/DL (74-106) H Calcium Level 9.7 MG/DL (8.5-10.1) Phosphorus Level 2.6 MG/DL (2.5-4.9) Magnesium Level 1.9 MG/DL (1.8-2.4) Total Bilirubin 0.3 MG/DL (0.2-1.0) Aspartate Amino Transf (AST/SGOT) 12 U/L (15-37) L Alanine Aminotransferase (ALT/SGPT) 9 U/L (12-78) L Alkaline Phosphatase 62 U/L (46-116) Total Protein 6.0 G/DL (6.4-8.2) L Albumin 2.0 G/DL (3.4-5.0) L Globulin 4.0 g/dL Albumin/Globulin Ratio 0.5 (1.0-2.7) L White Blood Count 11.7 K/UL (4.8-10.8) H Red Blood Count 2.78 M/UL (4.20-5.40) L Hemoglobin 8.8 G/DL (12.0-16.0) L Hematocrit 26.9 % (37.0-47.0) L Mean Corpuscular Volume 97 FL (80-99) Mean Corpuscular Hemoglobin 31.6 PG (27.0-31.0) H Mean Corpuscular Hemoglobin Concent 32.7 G/DL (32.0-36.0) Red Cell Distribution Width 14.3 % (11.6-14.8) Platelet Count 366 K/UL (150-450) Mean Platelet Volume 5.4 FL (6.5-10.1) L Neutrophils (%) (Auto) 71.3 % (45.0-75.0) Lymphocytes (%) (Auto) 17.8 % (20.0-45.0) L Monocytes (%) (Auto) 7.6 % (1.0-10.0) Eosinophils (%) (Auto) 3.0 % (0.0-3.0) Basophils (%) (Auto) 0.3 % (0.0-2.0) Arterial Blood pH 7.488 (7.350-7.450) Arterial Blood Partial Pressure CO2 37.1 mmHg (35.0-45.0) Arterial Blood Partial Pressure O2 92.8 mmHg (75.0-100.0) Arterial Blood HCO3 27.5 mmol/L (22.0-26.0) H Arterial Blood Oxygen Saturation 97.0 % (92.0-98.0) Arterial Blood Base Excess 4.0 Kelvin Test Positive Test 04/12/17 15:08 Arterial Blood pH 7.430 (7.350-7.450) Arterial Blood Partial Pressure CO2 37.0 mmHg (35.0-45.0) Arterial Blood Partial Pressure O2 85.0 mmHg (75.0-100.0) Arterial Blood HCO3 24.0 mmol/L (22.0-26.0) Arterial Blood Oxygen Saturation 95.5 % (92.0-98.0) Arterial Blood Base Excess 0.1 Kelvin Test Positive Current Medications Medications (Trade) Dose Ordered Sig/Jacque Route PRN Reason Start Time Stop Time Status Last Admin Dose Admin Acetaminophen (Tylenol) 650 mg Q4H PRN ORAL Mild Pain (Pain Scale 1-3) 04/08/17 23:15 05/08/17 23:14 Acetaminophen (Tylenol) 650 mg Q4H PRN RECTAL Mild Pain (Pain Scale 1-3) 04/08/17 23:15 05/08/17 23:14 Albuterol/ Ipratropium (Albuterol/ Ipratropium) 3 ml Q4HR PRN HHN Shortness of Breath 04/08/17 23:15 04/13/17 23:14 04/10/17 04:11 Albuterol/ Ipratropium (Albuterol/ Ipratropium) 3 ml Q6HR HHN 04/09/17 00:00 04/14/17 00:00 04/12/17 13:01 Apixaban (Eliquis) 5 mg BID ORAL 04/12/17 18:00 05/12/17 17:59 UNV Calcitonin [place] (Miacalcin) 1 sprays DAILY NASAL 04/10/17 09:00 05/10/17 08:59 04/12/17 09:17 Chlorhexidine Gluconate (Laly-Hex 2%) 1 applic DAILY@1999 TOPIC 04/10/17 21:00 05/10/17 20:59 04/11/17 21:08 Clotrimazole (Lotrimin) 1 applic EVERY 12 HOURS TOPIC 04/09/17 15:00 05/09/17 14:59 04/12/17 09:19 Dextrose (Dextrose 50%) STAT PRN IV Hypoglycemia 04/08/17 23:15 05/08/17 23:14 Docusate Sodium (Colace) 100 mg Q12H GT 04/09/17 21:00 05/09/17 20:59 04/12/17 09:15 Heparin Sodium (Porcine) (Heparin 5000 units/ml) 5,000 units EVERY 12 HOURS SUBQ 04/09/17 09:00 05/09/17 08:59 04/12/17 09:17 Insulin Aspart (NovoLOG) EVERY 6 HOURS SUBQ 04/11/17 00:00 05/09/17 11:29 04/12/17 06:01 Levothyroxine Sodium (Synthroid) 50 mcg DAILY ORAL 04/09/17 06:30 05/09/17 06:29 04/12/17 09:17 Lorazepam (Ativan 2mg/ml 1ml) 2 mg Q4H PRN IV For Anxiety 04/09/17 10:15 04/16/17 10:14 04/11/17 21:32 Morphine Sulfate (Morphine Sulfate) 4 mg Q4H PRN IVP For Pain 04/09/17 10:15 04/16/17 10:14 04/12/17 03:39 Olanzapine (ZyPREXA) 5 mg Q6H PRN NG agitation 04/09/17 12:45 05/09/17 12:44 Ondansetron HCl (Zofran) 4 mg Q6H PRN IVP Nausea & Vomiting 04/08/17 23:15 05/08/17 23:14 04/12/17 15:43 Pantoprazole (Protonix) 40 mg DAILY IV 04/09/17 09:00 05/09/17 08:59 04/12/17 09:15 Piperacillin Sod/ Tazobactam Sod 3.375 gm/Dextrose 55 ml @ 13.75 mls/ hr EVERY 8 HOURS IV 04/09/17 14:00 04/16/17 05:59 04/12/17 13:56 Polyethylene Glycol (Miralax) 17 gm DAILYPRN PRN ORAL Constipation 04/08/17 23:15 05/08/17 23:14 04/09/17 10:40 Promethazine HCl/ Codeine (Phenergan with Codeine) 5 ml Q4H PRN ORAL For Cough 04/09/17 10:15 05/09/17 10:14 Valproic Acid (Depakene) 500 mg Q12HR GT 04/09/17 16:30 05/09/17 16:29 04/12/17 09:16 Vancomycin HCl (Vanco rx to dose) 1 ea DAILY PRN MISC Per rx protocol 04/08/17 23:15 05/08/17 23:14 Vancomycin HCl 1 gm/Dextrose 275 ml @ 183.708 mls/hr Q12H IVPB 04/12/17 14:00 04/17/17 13:59 04/12/17 13:56 TIERA PRADO Apr 12, 2017 16:11
[2017-04-12] MEDS ORDERED: Tubing IV Secondary IV ONE (17:32)
[2017-04-12] MEDS ORDERED: Sterile Water Irrig 1000ml IRRIG ONE (17:32)
[2017-04-12] MEDS: Eliquis 2.5mg tablet ORAL SCH (18:36)
[2017-04-12] MEDS: Dyna-Hex 2% Top Sol 2oz TOPIC SCH (20:15)
[2017-04-13] VITALS (18 sets, daily range): BP systolic 105–139; BP diastolic 34–99
[2017-04-13] MEDS: NovoLOG Insulin Flexpen SUBQ SCH ×4 (00:12→18:07)
[2017-04-13] MEDS: Albuterol/Ipratropium 3ml neb HHN SCH ×3 (00:16→19:20)
[2017-04-13] MEDS: Vancomycin 1gm in D5W 275ml IVPB SCH (01:56)
[2017-04-13] MEDS: Piperacillin/Tazobactam 3.375 GM in D5W 55 ML IV SCH ×3 (05:52→21:12)
[2017-04-13 06:12] LABS: BASOPHILS % (AUTO) 0.6 % (0.0-2.0); EOSINOPHILS % (AUTO) 4.7 % (0.0-3.0); LYMPHOCYTES % (AUTO) 30.9 % (20.0-45.0); MEAN CORPUSCULAR HEMOGLOBIN 30.9 PG (27.0-31.0); MEAN CORPUSCULAR HGB CONC 31.8 G/DL (32.0-36.0); MEAN CORPUSCULAR VOLUME 97 FL (80-99); MEAN PLATELET VOLUME 5.5 FL (6.5-10.1); MONOCYTES % (AUTO) 11.2 % (1.0-10.0); NEUTROPHILS % (AUTO) 52.7 % (45.0-75.0); PLATELET COUNT 375 K/UL (150-450); RED BLOOD COUNT 2.71 M/UL (4.20-5.40); RED CELL DISTRIBUTION WIDTH 14.4 % (11.6-14.8); WHITE BLOOD COUNT 9.7 K/UL (4.8-10.8)
[2017-04-13 06:53] LABS: ALANINE AMINOTRANSFERASE 11 U/L (12-78); ALBUMIN/GLOBULIN RATIO 0.5 (1.0-2.7); ANION GAP 4 mmol/L (5-15); ASPARTATE AMINO TRANSFERASE 12 U/L (15-37); CALCIUM 9.7 MG/DL (8.5-10.1); CARBON DIOXIDE 30 MMOL/L (21-32); CHLORIDE 109 MMOL/L (98-107); CREATININE 0.6 MG/DL (0.55-1.30); MAGNESIUM 1.7 MG/DL (1.8-2.4); POTASSIUM 3.2 MMOL/L (3.5-5.1); SODIUM 143 MMOL/L (136-145); TOTAL PROTEIN 5.9 G/DL (6.4-8.2)
--- NOTE | 2017-04-13 07:25 | Pulmonolgy Critical Care Note ---
Critical Care - Asmt/Plan Assessment/Plan: ASSESSMENT Acute hypoxemic hypercapnic RF requiring intubation s/p extubation 04/12 Sepsis aspiration PNA with Staph aureus with hx of recurrent aspiration PNA Acute toxic metabolic encephalopathy ( likely due to sepsis)on chronic dementia Acute kidney injury Hyperkalemia-resolved Dysphagia s/p EGD and PEG atrophic gastritis COPD Hx of DVT/PE anemia of chronic disease seizure disorder Alzheimer dementia severe protein calorie malnutrition PLAN OF CARE ICU extubated titrate O2 to keep sat above 92% CXR noted IV abx, ID follows sputum cx + Staph, urine cx negative, blood cx prelim negative s/p IVF, renal parameters down to normal., JUJU was likely due to sepsis and possible dehydration monitor lytes and correct as needed( replace K and Mg today) s/p EGD and PEG with findings of atrophic gastritis strict aspiration /reflux precautions, GT feeding, site care, abdominal binder monitor TF tolerance GI follows Fup with biopsy results DVT GI prophylaxis venous Duplex BLE anemia w/up c/w anemia of chronic disease, monitor counts, transfuse prn seizure precautions, continue Depakote acute encephalopathy likely due to sepsis pain management bowel regimen transfer to [place] case discussed and evaluated by supervising physician Critical Care - Objective Last 24 Hour Vital Signs Date Time Temp Pulse Resp B/P (MAP) Pulse Ox O2 Delivery O2 Flow Rate FiO2 04/13/17 07:19 84 16 99 Nasal Cannula 2.0 28 04/13/17 07:13 Nasal Cannula 2.0 28 04/13/17 07:12 28 04/13/17 07:12 97 Nasal Cannula 2.0 28 04/13/17 07:11 81 16 97 Nasal Cannula 2.0 28 04/13/17 07:00 86 19 117/48 96 Nasal Cannula 2.0 04/13/17 06:00 79 19 112/42 96 Nasal Cannula 2.0 04/13/17 05:00 85 19 118/43 96 Nasal Cannula 2.0 04/13/17 04:00 98.9 103 22 135/57 95 Nasal Cannula 2.0 04/13/17 04:00 101 04/13/17 03:00 104 19 128/44 96 Nasal Cannula 2.0 04/13/17 02:00 106 19 131/47 96 Nasal Cannula 2.0 04/13/17 01:00 113 19 132/63 95 Nasal Cannula 2.0 04/13/17 00:32 98 16 99 Nasal Cannula 2.0 28 04/13/17 00:17 28 04/13/17 00:16 93 18 97 Nasal Cannula 2.0 28 04/13/17 00:00 98.9 95 22 139/99 95 Nasal Cannula 2.0 04/13/17 00:00 100 04/12/17 23:22 99.0 04/12/17 23:00 100 19 153/58 95 Nasal Cannula 2.0 04/12/17 22:00 95 19 108/49 95 Nasal Cannula 2.0 04/12/17 21:00 92 19 143/45 95 Nasal Cannula 2.0 04/12/17 20:00 96 04/12/17 20:00 99.0 95 22 110/39 95 Nasal Cannula 2.0 04/12/17 19:05 88 18 98 Nasal Cannula 2.0 28 04/12/17 19:00 92 20 101/38 95 Nasal Cannula 2.0 04/12/17 18:58 Nasal Cannula 2.0 28 04/12/17 18:58 96 Nasal Cannula 2.0 28 04/12/17 18:57 28 04/12/17 18:56 86 18 96 Nasal Cannula 28 04/12/17 18:00 99 20 145/103 95 Nasal Cannula 2.0 04/12/17 17:57 Nasal Cannula 2.0 28 04/12/17 17:01 109 27 35 04/12/17 17:00 101 22 140/95 96 Mechanical Ventilator 35 04/12/17 16:00 102 04/12/17 16:00 35 04/12/17 16:00 88 20 134/90 96 Mechanical Ventilator 35 04/12/17 15:00 98.0 92 22 107/32 97 Mechanical Ventilator 35 04/12/17 15:00 90 18 35 04/12/17 14:00 98 19 115/39 93 Mechanical Ventilator 35 04/12/17 13:22 81 18 99 Mechanical Ventilator 35 04/12/17 13:02 77 18 35 04/12/17 13:02 72 19 97 Mechanical Ventilator 35 04/12/17 13:00 80 22 103/77 100 Mechanical Ventilator 35 04/12/17 12:00 70 04/12/17 12:00 35 04/12/17 12:00 98.6 68 15 122/46 97 Mechanical Ventilator 35 04/12/17 11:56 35 04/12/17 11:00 85 15 130/69 98 Mechanical Ventilator 35 04/12/17 10:57 87 24 35 04/12/17 10:00 86 14 144/59 98 Mechanical Ventilator 35 04/12/17 09:34 98 04/12/17 09:32 85 24 35 04/12/17 09:00 85 15 114/59 98 Mechanical Ventilator 35 04/12/17 08:00 92 04/12/17 08:00 35 04/12/17 08:00 99.8 81 18 123/44 97 Mechanical Ventilator 35 04/12/17 07:47 88 24 97 Mechanical Ventilator 35 Status: awake, other - responsive, confused, follows simple commands Condition: improving HEENT: atraumatic, normocephalic Neck: full ROM Lungs: clear Heart: HR/BP stable Abdomen: soft, non-tender, active bowel sounds Extremities: no C/C/E Accucheck: 124 Critical Care - Subjective ROS Limited/Unobtainable: Yes Interval Events: extubated last night no fever, no leukocytosis on O2 via NC sat stable ABG stable low K and Mg this am Condition: improving IV Access: peripheral EKG Rhythm: Sinus Rhythm FI02: 21 Vent Support Mode: CPAP Sputum Amount: None PEEP: 0.0 Tube Feeding Amount: 40 CXR: Increased right mid and lower lung airspace opacity, over one day Esther Mahajna NP ([facility]) Apr 13, 2017 07:25
[2017-04-13 08:47] LABS: ABG ALLEN TEST POSITIVE; ABG BASE EXCESS 5.1; ABG PCO2 47.4 mmHg (35.0-45.0)
[2017-04-13] MEDS: Valproic Acid 250mg/5ml Liquid GT SCH ×2 (09:13→21:12)
[2017-04-13] MEDS: Docusate 100mg/10ml Liq GT SCH ×2 (09:13→21:12)
[2017-04-13] MEDS: Miralax 17gm pkt ORAL PRN (09:13)
[2017-04-13] MEDS: Eliquis 2.5mg tablet ORAL SCH ×2 (09:13→18:03)
[2017-04-13] MEDS: Pantoprazole Inj IV SCH (09:14)
--- NOTE | 2017-04-13 11:12 | GI Progress Note ---
Assessment/Plan Problems: (1) Dementia ICD Codes: F03.90 - Dementia SNOMED: 12812961 (2) Sepsis ICD Codes: A41.9 - Sepsis, unspecified organism SNOMED: 47778262 (3) Anemia ICD Codes: D64.9 - Anemia, unspecified SNOMED: 200299167 (4) Encounter for PEG (percutaneous endoscopic gastrostomy) ICD Codes: Z43.1 - Encounter for attention to gastrostomy SNOMED: 967455536, [id number] Status: progressing Status Narrative Discussed with Dr. Morales. Assessment/Plan SUMMARY OF FINDINGS: 1. Gastritis, status post biopsy. 2. Status post successful G-tube placement. RECOMMENDATIONS: Abdominal binder. Elevate head of the bed at all times. G-tube flush. G-tube care. GTFs per dietary to goal prn transfusions ppi fu labs The patient was seen and examined at bedside and all new and available data was reviewed in the patients chart. I agree with the above findings, impression and plan. (Patient seen earlier today. Signature stamp does not reflect patient encounter time.). - Precious Morales MD Subjective Subjective limited Objective Last 24 Hour Vital Signs Date Time Temp Pulse Resp B/P (MAP) Pulse Ox O2 Delivery O2 Flow Rate FiO2 04/13/17 10:34 21 04/13/17 10:00 73 18 105/34 97 Nasal Cannula 2.0 04/13/17 09:00 74 18 123/51 97 Nasal Cannula 2.0 04/13/17 08:00 99.0 91 18 135/54 94 Nasal Cannula 2.0 04/13/17 08:00 90 04/13/17 07:19 84 16 99 Nasal Cannula 2.0 28 04/13/17 07:13 Nasal Cannula 2.0 28 04/13/17 07:12 28 04/13/17 07:12 97 Nasal Cannula 2.0 28 04/13/17 07:11 81 16 97 Nasal Cannula 2.0 28 04/13/17 07:00 86 19 117/48 96 Nasal Cannula 2.0 04/13/17 06:00 79 19 112/42 96 Nasal Cannula 2.0 04/13/17 05:00 85 19 118/43 96 Nasal Cannula 2.0 04/13/17 04:00 98.9 103 22 135/57 95 Nasal Cannula 2.0 04/13/17 04:00 101 04/13/17 03:00 104 19 128/44 96 Nasal Cannula 2.0 04/13/17 02:00 106 19 131/47 96 Nasal Cannula 2.0 04/13/17 01:00 113 19 132/63 95 Nasal Cannula 2.0 04/13/17 00:32 98 16 99 Nasal Cannula 2.0 28 04/13/17 00:17 28 04/13/17 00:16 93 18 97 Nasal Cannula 2.0 28 04/13/17 00:00 98.9 95 22 139/99 95 Nasal Cannula 2.0 04/13/17 00:00 100 04/12/17 23:22 99.0 04/12/17 23:00 100 19 153/58 95 Nasal Cannula 2.0 04/12/17 22:00 95 19 108/49 95 Nasal Cannula 2.0 04/12/17 21:00 92 19 143/45 95 Nasal Cannula 2.0 04/12/17 20:00 96 04/12/17 20:00 99.0 95 22 110/39 95 Nasal Cannula 2.0 04/12/17 19:05 88 18 98 Nasal Cannula 2.0 28 04/12/17 19:00 92 20 101/38 95 Nasal Cannula 2.0 04/12/17 18:58 Nasal Cannula 2.0 28 04/12/17 18:58 96 Nasal Cannula 2.0 28 04/12/17 18:57 28 04/12/17 18:56 86 18 96 Nasal Cannula 28 04/12/17 18:00 99 20 145/103 95 Nasal Cannula 2.0 04/12/17 17:57 Nasal Cannula 2.0 28 04/12/17 17:01 109 27 35 04/12/17 17:00 101 22 140/95 96 Mechanical Ventilator 35 04/12/17 16:00 102 04/12/17 16:00 35 04/12/17 16:00 88 20 134/90 96 Mechanical Ventilator 35 04/12/17 15:00 98.0 92 22 107/32 97 Mechanical Ventilator 35 04/12/17 15:00 90 18 35 04/12/17 14:00 98 19 115/39 93 Mechanical Ventilator 35 04/12/17 13:22 81 18 99 Mechanical Ventilator 35 04/12/17 13:02 77 18 35 04/12/17 13:02 72 19 97 Mechanical Ventilator 35 04/12/17 13:00 80 22 103/77 100 Mechanical Ventilator 35 04/12/17 12:00 70 04/12/17 12:00 35 04/12/17 12:00 98.6 68 15 122/46 97 Mechanical Ventilator 35 04/12/17 11:56 35 Intake and Output 04/13/17 04/14/17 19:00 07:00 Intake Total 40 ml Output Total 85 ml Balance -45 ml Tube Feeding 40 ml Output Urine Total 85 ml Laboratory Tests Test 04/12/17 15:08 04/13/17 04:00 04/13/17 08:40 Arterial Blood pH 7.430 (7.350-7.450) 7.420 (7.350-7.450) Arterial Blood Partial Pressure CO2 37.0 mmHg (35.0-45.0) 47.4 mmHg (35.0-45.0) H Arterial Blood Partial Pressure O2 85.0 mmHg (75.0-100.0) 76.2 mmHg (75.0-100.0) Arterial Blood HCO3 24.0 mmol/L (22.0-26.0) 30.2 mmol/L (22.0-26.0) H Arterial Blood Oxygen Saturation 95.5 % (92.0-98.0) 94.5 % (92.0-98.0) Arterial Blood Base Excess 0.1 5.1 Kelvin Test Positive Positive White Blood Count 9.7 K/UL (4.8-10.8) Red Blood Count 2.71 M/UL (4.20-5.40) L Hemoglobin 8.4 G/DL (12.0-16.0) L Hematocrit 26.3 % (37.0-47.0) L Mean Corpuscular Volume 97 FL (80-99) Mean Corpuscular Hemoglobin 30.9 PG (27.0-31.0) Mean Corpuscular Hemoglobin Concent 31.8 G/DL (32.0-36.0) L Red Cell Distribution Width 14.4 % (11.6-14.8) Platelet Count 375 K/UL (150-450) Mean Platelet Volume 5.5 FL (6.5-10.1) L Neutrophils (%) (Auto) 52.7 % (45.0-75.0) Lymphocytes (%) (Auto) 30.9 % (20.0-45.0) Monocytes (%) (Auto) 11.2 % (1.0-10.0) H Eosinophils (%) (Auto) 4.7 % (0.0-3.0) H Basophils (%) (Auto) 0.6 % (0.0-2.0) Sodium Level 143 MMOL/L (136-145) Potassium Level 3.2 MMOL/L (3.5-5.1) L Chloride Level 109 MMOL/L (98-107) H Carbon Dioxide Level 30 MMOL/L (21-32) Anion Gap 4 mmol/L (5-15) L Blood Urea Nitrogen 7 mg/dL (7-18) Creatinine 0.6 MG/DL (0.55-1.30) Estimat Glomerular Filtration Rate mL/min (>60) Glucose Level 113 MG/DL (74-106) H Calcium Level 9.7 MG/DL (8.5-10.1) Phosphorus Level 3.0 MG/DL (2.5-4.9) Magnesium Level 1.7 MG/DL (1.8-2.4) L Total Bilirubin 0.3 MG/DL (0.2-1.0) Aspartate Amino Transf (AST/SGOT) 12 U/L (15-37) L Alanine Aminotransferase (ALT/SGPT) 11 U/L (12-78) L Alkaline Phosphatase 58 U/L (46-116) Total Protein 5.9 G/DL (6.4-8.2) L Albumin 2.0 G/DL (3.4-5.0) L Globulin 3.9 g/dL Albumin/Globulin Ratio 0.5 (1.0-2.7) L Height (Feet): 5 Height (Inches): 3.00 Weight (Pounds): 147 General Appearance: WD/WN, no apparent distress, alert Cardiovascular: normal rate Respiratory/Chest: normal breath sounds, no respiratory distress Abdominal Exam: normal bowel sounds, non tender, soft, GT site - c/d/i Extremities: non-tender Yvonne Grace N.P. Apr 13, 2017 11:12 BESSY MORALES Apr 16, 2017 08:55
[2017-04-13] MEDS ORDERED: Albuterol/Ipratropium 3ml neb HHN SCH (12:00)
--- NOTE | 2017-04-13 12:38 | Diagnostic Imaging Report ---
Indication: Shortness of breath Technique: One view of the chest Comparison: 04/12/2017 Findings: There is increased airspace opacity in the right middle lower lung. Generalized interstitial congestion persists. Probable right pleural effusion persists. The endotracheal tube has been removed. Left jugular central venous catheter remains. Gastrostomy remains. Impression: Increased right mid and lower lung airspace opacity, over one day Otherwise essentially stable, findings as described
[2017-04-13] MEDS ORDERED: Albuterol/Ipratropium 3ml neb HHN PRN (13:00)
[2017-04-13] MEDS ORDERED: LORazepam Inj 2mg/ml 1ml IV PRN (14:15)
[2017-04-13] MEDS ORDERED: Morphine Sulfate 4mg/ml Inj IVP PRN (14:15)
[2017-04-13] MEDS ORDERED: Promethazine/Codeine 5ml UD ORAL PRN (14:15)
[2017-04-13] MEDS ORDERED: Acetaminophen 650 MG SUPP RECTAL PRN (15:15)
[2017-04-13] MEDS: Vancomycin 1 GM in D5W 275 ML IVPB SCH (15:53)
--- NOTE | 2017-04-13 18:14 | General Progress Note ---
Assessment/Plan Problem List: (1) Acute respiratory failure with hypoxia and hypercapnia ICD Codes: J96.01 - Acute respiratory failure with hypoxia; J96.02 - Acute respiratory failure with hypercapnia SNOMED: 77601391, 35238445, 173224864 (2) Sepsis ICD Codes: A41.9 - Sepsis, unspecified organism SNOMED: 45341981 (3) Aspiration pneumonia ICD Codes: J69.0 - Pneumonitis due to inhalation of food and vomit SNOMED: 749509406 Qualifiers: Qualified Codes: J69.0 - Pneumonitis due to inhalation of food and vomit (4) Toxic metabolic encephalopathy ICD Codes: G92 - Toxic encephalopathy SNOMED: 637435753 (5) Hyperkalemia ICD Codes: E87.5 - Hyperkalemia SNOMED: 72221196 (6) JUJU (acute kidney injury) ICD Codes: N17.9 - Acute kidney failure, unspecified SNOMED: 69952194 (7) UTI (lower urinary tract infection) ICD Codes: N39.0 - UTI (lower urinary tract infection) SNOMED: 2549187 (8) Dementia ICD Codes: F03.90 - Dementia SNOMED: 51530831 (9) Schizophrenia ICD Codes: F20.9 - Schizophrenia, unspecified SNOMED: 97028581 (10) Seizure disorder ICD Codes: G40.909 - Epilepsy, unspecified, not intractable, without status epilepticus SNOMED: 384162238 Status: stable Assessment/Plan Now transferred to floor on 04/13/17 Pulmonary and ID consulted, appreciate rec's Extubated on 04/13/17 Cont abx per ID: aicha (04/08-) F/u cultures Appreciate GI rec's s/p PEG on 04/11/17 Cont tube feeds via PEG 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 Daughter wants pt to remain full code. D/w daughter and she has decided on [facility]. CM consulted for d/c plan w/ hospice. Will need tube feeds set up prior to d/c DVT Prophylaxis: Eliquis Code Status: Full Hospital Classification Declaration: Based on this initial evaluation, and depending on the patient's clinical course, I anticipate that this patient will require hospitalization for 1-2 days for respiratory failure, PNA and close respiratory/hemodynamic monitoring. Disposition: Once the patient is stable to leave the hospital, I anticipate the patient will likely be discharged to the following environment: home with hospice Discussed with patient/family, nursing staff, SW/CM, pulm, ID, GI regarding clinical status, treatment course, and disposition planning. D/w daughter re plan for d/c home w/ hospice Time of note may not reflect time of encounter. Subjective Date patient seen: Apr 13, 2017 Time patient seen: 14:30 ROS Limited/Unobtainable: Yes Allergies: Coded Allergies: NO KNOWN DRUG ALLERGIES (Unverified Allergy, Unknown, 07/29/14) Subjective No acute o/n events Extubated yesterday and now transferred to floor Pt awake, alert but lethargic. Confused at baseline, A&Ox1 Limited ROS 2/2 dementia Objective Last 24 Hour Vital Signs Date Time Temp Pulse Resp B/P (MAP) Pulse Ox O2 Delivery O2 Flow Rate FiO2 04/13/17 15:50 97.4 74 18 135/65 97 Nasal Cannula 2.0 74 74 04/13/17 13:45 Nasal Cannula 2.0 28 04/13/17 13:45 Nasal Cannula 2.0 28 04/13/17 12:00 80 04/13/17 12:00 86 18 109/94 96 Nasal Cannula 2.0 04/13/17 11:00 80 19 117/45 96 Nasal Cannula 2.0 04/13/17 10:34 21 04/13/17 10:00 73 18 105/34 97 Nasal Cannula 2.0 04/13/17 09:00 74 18 123/51 97 Nasal Cannula 2.0 04/13/17 08:00 99.0 91 18 135/54 94 Nasal Cannula 2.0 04/13/17 08:00 90 04/13/17 07:19 84 16 99 Nasal Cannula 2.0 28 04/13/17 07:13 Nasal Cannula 2.0 28 04/13/17 07:12 28 04/13/17 07:12 97 Nasal Cannula 2.0 28 04/13/17 07:11 81 16 97 Nasal Cannula 2.0 28 04/13/17 07:00 86 19 117/48 96 Nasal Cannula 2.0 04/13/17 06:00 79 19 112/42 96 Nasal Cannula 2.0 04/13/17 05:00 85 19 118/43 96 Nasal Cannula 2.0 04/13/17 04:00 98.9 103 22 135/57 95 Nasal Cannula 2.0 04/13/17 04:00 101 04/13/17 03:00 104 19 128/44 96 Nasal Cannula 2.0 04/13/17 02:00 106 19 131/47 96 Nasal Cannula 2.0 04/13/17 01:00 113 19 132/63 95 Nasal Cannula 2.0 04/13/17 00:32 98 16 99 Nasal Cannula 2.0 28 04/13/17 00:17 28 04/13/17 00:16 93 18 97 Nasal Cannula 2.0 28 04/13/17 00:00 98.9 95 22 139/99 95 Nasal Cannula 2.0 04/13/17 00:00 100 04/12/17 23:22 99.0 04/12/17 23:00 100 19 153/58 95 Nasal Cannula 2.0 04/12/17 22:00 95 19 108/49 95 Nasal Cannula 2.0 04/12/17 21:00 92 19 143/45 95 Nasal Cannula 2.0 04/12/17 20:00 96 04/12/17 20:00 99.0 95 22 110/39 95 Nasal Cannula 2.0 04/12/17 19:05 88 18 98 Nasal Cannula 2.0 28 04/12/17 19:00 92 20 101/38 95 Nasal Cannula 2.0 04/12/17 18:58 Nasal Cannula 2.0 28 04/12/17 18:58 96 Nasal Cannula 2.0 28 04/12/17 18:57 28 04/12/17 18:56 86 18 96 Nasal Cannula 28 Intake and Output 04/13/17 04/14/17 19:00 07:00 Intake Total 181.25 ml Output Total 185 ml Balance -3.75 ml IV Total 41.25 ml Tube Feeding 140 ml Output Urine Total 185 ml Laboratory Tests 04/13/17 04:00: White Blood Count 9.7, Red Blood Count 2.71L, Hemoglobin 8.4L, Hematocrit 26.3L , Mean Corpuscular Volume 97, Mean Corpuscular Hemoglobin 30.9, Mean Corpuscular Hemoglobin Concent 31.8L, Red Cell Distribution Width 14.4, Platelet Count 375, Mean Platelet Volume 5.5L, Neutrophils (%) (Auto) 52.7, Lymphocytes (%) (Auto) 30.9, Monocytes (%) (Auto) 11.2H, Eosinophils (%) (Auto) 4.7H, Basophils (%) (Auto) 0.6, Sodium Level 143, Potassium Level 3.2L, Chloride Level 109H, Carbon Dioxide Level 30, Anion Gap 4L, Blood Urea Nitrogen 7, Creatinine 0.6, Estimat Glomerular Filtration Rate , Glucose Level 113H, Calcium Level 9.7, Phosphorus Level 3.0, Magnesium Level 1.7L, Total Bilirubin 0.3, Aspartate Amino Transf (AST/SGOT) 12L, Alanine Aminotransferase (ALT/SGPT) 11L, Alkaline Phosphatase 58, Total Protein 5.9L, Albumin 2.0L, Globulin 3.9, Albumin/Globulin Ratio 0.5L 04/13/17 08:40: Arterial Blood pH 7.420, Arterial Blood Partial Pressure CO2 47.4H, Arterial Blood Partial Pressure O2 76.2, Arterial Blood HCO3 30.2H, Arterial Blood Oxygen Saturation 94.5, Arterial Blood Base Excess 5.1, Kelvin Test Positive 04/13/17 12:45: Vancomycin Level Trough 16.5H Height (Feet): 5 Height (Inches): 3.00 Weight (Pounds): 147 Objective General: intubated, sedated Head: normocephalic, without obvious abnormality, atraumatic Eyes: conjunctivae/corneas clear. PERRL, EOM's intact Throat: lips, mucosa, and tongue normal. MMM Neck: supple, symmetrical, trachea midline, and no JVD Lungs: +rhonchi, R>L Heart: regular rate and rhythm, S1, S2 normal, no murmur, click, rub or gallop Abdomen: soft, non-tender, non-distended, bowel sounds normal Extremities: extremities normal, atraumatic, no cyanosis or edema Pulses: 2+ and symmetric Skin: skin color, texture, turgor normal; no rashes or lesions Neurologic: Prachi Taveras M.D. Apr 13, 2017 18:14
[2017-04-13] MEDS: Dyna-Hex 2% Top Sol 2oz TOPIC SCH (20:00)
[2017-04-13] MEDS ORDERED: Miralax 17gm pkt ORAL PRN (23:15)
[2017-04-14] VITALS: BP 126/52
[2017-04-14] MEDS: NovoLOG Insulin Flexpen SUBQ SCH ×4 (00:06→18:49)
[2017-04-14] MEDS: Albuterol/Ipratropium 3ml neb HHN SCH ×4 (01:14→20:09)
[2017-04-14] MEDS: Vancomycin 1 GM in D5W 275 ML IVPB SCH ×2 (02:08→14:35)
[2017-04-14 04:00] VITALS: BP 124/53
[2017-04-14] MEDS: Piperacillin/Tazobactam 3.375 GM in D5W 55 ML IV SCH ×3 (06:16→21:38)
[2017-04-14 08:00] VITALS: BP 127/57
[2017-04-14 08:14] LABS: BASOPHILS % (AUTO) 0.8 % (0.0-2.0); EOSINOPHILS % (AUTO) 6.4 % (0.0-3.0); LYMPHOCYTES % (AUTO) 25.6 % (20.0-45.0); MEAN CORPUSCULAR HEMOGLOBIN 32.2 PG (27.0-31.0); MEAN CORPUSCULAR VOLUME 97 FL (80-99); MEAN PLATELET VOLUME 5.3 FL (6.5-10.1); NEUTROPHILS % (AUTO) 55.2 % (45.0-75.0); PLATELET COUNT 402 K/UL (150-450); RED BLOOD COUNT 2.88 M/UL (4.20-5.40); RED CELL DISTRIBUTION WIDTH 14.5 % (11.6-14.8); WHITE BLOOD COUNT 9.2 K/UL (4.8-10.8)
[2017-04-14 08:29] LABS: ANION GAP 5 mmol/L (5-15); CALCIUM 9.9 MG/DL (8.5-10.1); CARBON DIOXIDE 29 MMOL/L (21-32); CHLORIDE 108 MMOL/L (98-107); CREATININE 0.4 MG/DL (0.55-1.30); MAGNESIUM 1.7 MG/DL (1.8-2.4); POTASSIUM 4.1 MMOL/L (3.5-5.1); SODIUM 142 MMOL/L (136-145)
[2017-04-14] MEDS: Valproic Acid 250mg/5ml Liquid GT SCH ×2 (09:33→21:37)
[2017-04-14] MEDS: Docusate 100mg/10ml Liq GT SCH ×2 (09:33→21:38)
[2017-04-14] MEDS: Eliquis 2.5mg tablet ORAL SCH ×2 (09:34→18:57)
[2017-04-14] MEDS: Pantoprazole Inj IV SCH (09:34)
[2017-04-14 10:22] LABS: ABG PCO2 38.9 mmHg (35.0-45.0)
[2017-04-14 10:23] LABS: ABG BASE EXCESS 3.4
[2017-04-14 12:00] VITALS: BP 116/48
--- NOTE | 2017-04-14 12:34 | Diagnostic Imaging Report ---
Indication: 04/13/2017 Technique: XRAY Chest 1v Comparison: 04/13/2017 Findings: Rotated and mediastinal contours are stable. Patient is rotated to the right. There is persistent hazy and patchy right-sided airspace opacities with slight interval decrease in interstitial opacification compared to the prior exam. No pneumothorax. No acute osseous abnormality seen. Gastrostomy tube again partially visualized. Impression: Slight interval improvement of interstitial opacification and right-sided airspace opacities.
--- NOTE | 2017-04-14 13:30 | Pulmonology Progress Note ---
Assessment/Plan Assessment/Plan ASSESSMENT Acute hypoxemic hypercapnic RF requiring intubation s/p extubation 04/12 Sepsis PNA with MRSA hx of recurrent aspiration PNA Acute toxic metabolic encephalopathy ( likely due to sepsis)on chronic dementia Acute kidney injury Hyperkalemia-resolved Dysphagia s/p EGD and PEG atrophic gastritis COPD Hx of DVT/PE anemia of chronic disease seizure disorder Alzheimer dementia severe protein calorie malnutrition PLAN OF CARE MS floor titrate O2 to keep sat above 92% fup with CXR on Sunday IV abx, ID follows sputum cx + MRSA urine cx negative, blood cx prelim negative s/p IVF, renal parameters down to normal., JUJU was likely due to sepsis and possible dehydration monitor lytes and correct as needed( replace K and Mg today) s/p EGD and PEG with findings of atrophic gastritis strict aspiration /reflux precautions, GT feeding, site care, abdominal binder monitor TF tolerance GI follows Fup with biopsy results DVT GI prophylaxis venous Duplex BLE anemia w/up c/w anemia of chronic disease, monitor counts, transfuse prn seizure precautions, continue Depakote acute encephalopathy likely due to sepsis pain management bowel regimen case discussed and evaluated by supervising physician Subjective Allergies: Coded Allergies: NO KNOWN DRUG ALLERGIES (Unverified Allergy, Unknown, 07/29/14) Subjective s/p extubation transferred to MS floor on O2 via NC sat stable ABG on O2 via NC stable afebrile, no leukocytosis Objective Last 24 Hour Vital Signs Date Time Temp Pulse Resp B/P (MAP) Pulse Ox O2 Delivery O2 Flow Rate FiO2 04/14/17 13:01 72 18 100 Nasal Cannula 1.0 04/14/17 12:52 72 18 98 Nasal Cannula 2.0 28 04/14/17 12:00 98.2 75 20 116/48 98 04/14/17 08:23 71 18 99 Nasal Cannula 2.0 28 04/14/17 08:00 97.7 62 20 127/57 98 04/14/17 07:59 65 18 98 Nasal Cannula 2.0 04/14/17 07:56 Nasal Cannula 2.0 28 04/14/17 07:55 98 Nasal Cannula 2.0 28 04/14/17 04:00 97.7 94 20 124/53 94 Nasal Cannula 2.0 04/14/17 01:24 86 18 99 Nasal Cannula 2.0 04/14/17 01:14 95 20 95 Nasal Cannula 2.0 28 04/14/17 00:00 97.5 80 20 126/52 97 Nasal Cannula 2.0 04/13/17 20:00 97.5 82 20 123/54 95 Nasal Cannula 2.0 04/13/17 19:33 98 18 99 Nasal Cannula 2.0 28 04/13/17 19:00 97.6 74 18 125/60 98 Nasal Cannula 2.0 76 04/13/17 18:00 98.0 80 18 130/60 98 Nasal Cannula 2.0 80 04/13/17 17:23 Nasal Cannula 2.0 28 04/13/17 17:23 83 18 96 Nasal Cannula 2.0 28 04/13/17 17:23 96 Nasal Cannula 2.0 28 04/13/17 17:00 97.5 75 16 121/59 98 Nasal Cannula 2.0 75 04/13/17 15:50 97.4 74 18 135/65 97 Nasal Cannula 2.0 74 74 04/13/17 13:45 Nasal Cannula 2.0 28 04/13/17 13:45 Nasal Cannula 2.0 28 Intake and Output 04/14/17 04/15/17 19:00 07:00 Intake Total 240 ml Balance 240 ml Tube Feeding 240 ml Objective General Appearance: no acute distress HEENT: normocephalic, atraumatic, anicteric, other - O2 via NC Respiratory/Chest: chest wall non-tender, lungs clear - with moderate air entry Cardiovascular: normal peripheral pulses, normal rate, no JVD Abdomen: normal bowel sounds, soft, non tender Neurologic/Psychiatric: abnormal gait, alert, responsive Musculoskeletal: atrophy - BLE Laboratory Tests 04/14/17 05:15: White Blood Count 9.2, Red Blood Count 2.88L, Hemoglobin 9.3L, Hematocrit 28.1L , Mean Corpuscular Volume 97, Mean Corpuscular Hemoglobin 32.2H, Mean Corpuscular Hemoglobin Concent 33.0, Red Cell Distribution Width 14.5, Platelet Count 402, Mean Platelet Volume 5.3L, Neutrophils (%) (Auto) 55.2, Lymphocytes ( %) (Auto) 25.6, Monocytes (%) (Auto) 12.0H, Eosinophils (%) (Auto) 6.4H, Basophils (%) (Auto) 0.8, Sodium Level 142, Potassium Level 4.1, Chloride Level 108H, Carbon Dioxide Level 29, Anion Gap 5, Blood Urea Nitrogen 11, Creatinine 0.4L, Estimat Glomerular Filtration Rate , Glucose Level 140H, Calcium Level 9.9 , Magnesium Level 1.7L 04/14/17 10:15: Arterial Blood pH 7.460H, Arterial Blood Partial Pressure CO2 38.9, Arterial Blood Partial Pressure O2 86.9, Arterial Blood HCO3 27.3H, Arterial Blood Oxygen Saturation 96.6, Arterial Blood Base Excess 3.4, Kelvin Test N/a Current Medications Medications (Trade) Dose Ordered Sig/Jacque Route PRN Reason Start Time Stop Time Status Last Admin Dose Admin Acetaminophen (Tylenol) 650 mg Q4H PRN ORAL Mild Pain (Pain Scale 1-3) 04/13/17 15:15 05/08/17 23:14 Acetaminophen (Tylenol) 650 mg Q4H PRN RECTAL Mild Pain (Pain Scale 1-3) 04/13/17 15:15 05/08/17 23:14 Albuterol/ Ipratropium (Albuterol/ Ipratropium) 3 ml Q6HR HHN 04/13/17 18:00 04/18/17 12:20 04/14/17 12:51 Apixaban (Eliquis) 5 mg BID ORAL 04/13/17 18:00 05/12/17 17:59 04/14/17 09:34 Calcitonin [place] (Miacalcin) 1 sprays DAILY NASAL 04/14/17 09:00 05/10/17 08:59 04/14/17 12:40 Chlorhexidine Gluconate (Laly-Hex 2%) 1 applic DAILY@1999 TOPIC 04/13/17 20:00 05/10/17 20:59 Clotrimazole (Lotrimin) 1 applic EVERY 12 HOURS TOPIC 04/13/17 21:00 05/09/17 14:59 04/14/17 09:35 Dextrose (Dextrose 50%) STAT PRN IV Hypoglycemia 04/13/17 23:15 05/08/17 23:14 Docusate Sodium (Colace) 100 mg Q12H GT 04/13/17 21:00 05/09/17 20:59 04/14/17 09:33 Insulin Aspart (NovoLOG) EVERY 6 HOURS SUBQ 04/13/17 18:00 05/09/17 11:29 04/14/17 12:38 Levothyroxine Sodium (Synthroid) 50 mcg DAILY ORAL 04/14/17 09:00 05/09/17 06:29 04/14/17 09:34 Lorazepam (Ativan 2mg/ml 1ml) 2 mg Q4H PRN IV For Anxiety 04/13/17 14:15 04/16/17 10:14 Morphine Sulfate (Morphine Sulfate) 4 mg Q4H PRN IVP For Pain 04/13/17 14:15 04/16/17 10:14 Olanzapine (ZyPREXA) 5 mg Q6H PRN NG agitation 04/13/17 12:45 05/09/17 12:44 Ondansetron HCl (Zofran) 4 mg Q6H PRN IVP Nausea & Vomiting 04/13/17 17:15 05/08/17 23:14 Pantoprazole (Protonix) 40 mg DAILY IV 04/14/17 09:00 05/09/17 08:59 04/14/17 09:34 Piperacillin Sod/ Tazobactam Sod 3.375 gm/Dextrose 55 ml @ 13.75 mls/ hr EVERY 8 HOURS IV 04/13/17 14:00 04/16/17 05:59 04/14/17 06:16 Polyethylene Glycol (Miralax) 17 gm DAILYPRN PRN ORAL Constipation 04/13/17 23:15 05/08/17 23:14 04/13/17 21:18 Promethazine HCl/ Codeine (Phenergan with Codeine) 5 ml Q4H PRN ORAL For Cough 04/13/17 14:15 05/09/17 10:14 Valproic Acid (Depakene) 500 mg Q12HR GT 04/13/17 21:00 05/09/17 16:29 04/14/17 09:33 Vancomycin HCl (Vanco rx to dose) 1 ea DAILY PRN MISC Per rx protocol 04/14/17 09:00 05/08/17 23:14 Vancomycin HCl 1 gm/Dextrose 275 ml @ 183.708 mls/hr Q12H IVPB 04/13/17 14:00 04/17/17 13:59 04/14/17 02:08 Esther Mahajan NP ([facility]) Apr 14, 2017 13:30
[2017-04-14] MEDS ORDERED: LORazepam Inj 2mg/ml 1ml IV PRN (15:00)
[2017-04-14] MEDS ORDERED: Morphine Sulfate 4mg/ml Inj IVP PRN (15:00)
--- NOTE | 2017-04-14 15:09 | Infectious Diseases Prog Note ---
Assessment/Plan Assessment/Plan ASSESSMENT AND PLAN: 1. sepsis, leukocytosis, fevers, sirs, mrsa pna, ? aspiration pna based on history, uti, respiratory failure - clinically improved, fevers and leukocytosis improved, chest x-ray improved - continue vancomycin and zosyn - check sc final, labs and chest x-ray, recheck ua - extubated, transferred from icu - continue per primary and consultants 2. The patient has a history of hypertension. 3. Diabetes. 4. Hypothyroidism. 5. Hyperlipidemia. 6. Blood sugar and blood pressure control per primary. 7. Subdural hematoma. 8. Seizure history. 9. Paroxysmal supraventricular tachycardia history. 10. Anemia. 11. Deep venous thrombosis. 12. Chronic back pain. 13. Asthma. 14. Anxiety. 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 16. History of urinary tract infections. 17. History of cerebrovascular accident. 18. Aspiration risk. 19. Allergies are negative. 20. Family history is noncontributory. 21. MAR is noted. 22. Social history is negative. 23. Case was discussed with RN. 24. Continue treatment per primary consultants. 25. Skin care protocol. 26. ICU care. 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 Subjective Constitutional: Reports: other - + generalized weakness, Denies: fever HEENT: Reports: congestion - less Respiratory: Reports: shortness of breath - less Cardiovascular: Denies: chest pain Gastrointestinal/Abdominal: Denies: nausea, vomiting, diarrhea Genitourinary: Reports: other - + cota Neurologic: Denies: headache Psychiatric: Denies: depression Skin: Denies: rash Hematologic: Denies: bleeding Musculoskeletal: Denies: pain Allergies: Coded Allergies: NO KNOWN DRUG ALLERGIES (Unverified Allergy, Unknown, 07/29/14) Objective Vital Signs Last 24 Hour Vital Signs Date Time Temp Pulse Resp B/P (MAP) Pulse Ox O2 Delivery O2 Flow Rate FiO2 04/14/17 13:01 72 18 100 Nasal Cannula 1.0 04/14/17 12:52 72 18 98 Nasal Cannula 2.0 04/14/17 12:00 98.2 75 20 116/48 98 04/14/17 08:23 71 18 99 Nasal Cannula 2.0 04/14/17 08:00 97.7 62 20 127/57 98 04/14/17 07:59 65 18 98 Nasal Cannula 2.0 04/14/17 07:56 Nasal Cannula 2.0 28 04/14/17 07:55 98 Nasal Cannula 2.0 28 04/14/17 04:00 97.7 94 20 124/53 94 Nasal Cannula 2.0 04/14/17 01:24 86 18 99 Nasal Cannula 2.0 28 04/14/17 01:14 95 20 95 Nasal Cannula 2.0 28 04/14/17 00:00 97.5 80 20 126/52 97 Nasal Cannula 2.0 04/13/17 20:00 97.5 82 20 123/54 95 Nasal Cannula 2.0 04/13/17 19:33 98 18 99 Nasal Cannula 2.0 28 04/13/17 19:00 97.6 74 18 125/60 98 Nasal Cannula 2.0 76 04/13/17 18:00 98.0 80 18 130/60 98 Nasal Cannula 2.0 80 04/13/17 17:23 Nasal Cannula 2.0 28 04/13/17 17:23 83 18 96 Nasal Cannula 2.0 28 04/13/17 17:23 96 Nasal Cannula 2.0 28 04/13/17 17:00 97.5 75 16 121/59 98 Nasal Cannula 2.0 75 04/13/17 15:50 97.4 74 18 135/65 97 Nasal Cannula 2.0 74 74 Height (Feet): 5 Height (Inches): 3.00 Weight (Pounds): 172 General Appearance: no acute distress HEENT: normocephalic, atraumatic, anicteric, mucous membranes moist, EOMI, pharynx normal, supple, no JVD Respiratory/Chest: no accessory muscle use, crackles/rales, rhonchi - bilaterally Cardiovascular: normal rate, regular rhythm, no gallop/murmur, no JVD Abdomen: normal bowel sounds, soft, non tender, no organomegaly, non distended Genitourinary: other - + cota - urine slt cloudy Extremities: no cyanosis Skin: no rash Neurologic/Psychiatric: clinical nursing assistant II-XII grossly normal, responsive, other - + generalized weakness Lymphatic: no neck adenopathy Musculoskeletal: no effusion Objective 04/10 - chest x-ray: Findings: Stable satisfactory position of endotracheal tube. Interim placement enteric nasogastric tube, tip projected at the level of the gastric fundus, proximal port beyond the gastroesophageal junction. There is increasing hazy opacity in the right lung. There is persistent right lung volume loss. There is persistent perihilar interstitial prominence and bronchial wall thickening. Left jugular central venous catheter remains. Impression: Increasing hazy consolidation of the right lung Satisfactory nasogastric intubation. Patient's nurse was notified of this finding previously Other stable findings as described Chest x-ray - 04/14 - Findings: Rotated and mediastinal contours are stable. Patient is rotated to the right. There is persistent hazy and patchy right-sided airspace opacities with slight interval decrease in interstitial opacification compared to the prior exam. No pneumothorax. No acute osseous abnormality seen. Gastrostomy tube again partially visualized. Impression: Slight interval improvement of interstitial opacification and right- sided airspace opacities. 04/12 - chest x-rat Findings: ET tube and left IJ approach central line unchanged in position. NG tube has been removed. interval gastrostomy tube placement. Heart size and mediastinal contours are stable. No significant interval change in mild interstitial opacification edema and hazy right-sided airspace opacities. There is blunting of the right costophrenic sulcus suggesting a small right pleural effusion. Is no pneumothorax. The bones are diffusely demineralized. Dense material projecting over the T12 vertebral body may be sequela from prior kyphoplasty/vertebroplasty. Degenerative changes are also noted in the shoulders. No acute osseous abnormality is seen. Impression: Removal of NG tube with interval gastrostomy tube placement. No significant interval change in appearance of the heart and lungs compared to one day prior. Microbiology Date/Time Source Procedure Growth Status 04/08/17 21:05 Blood Blood Culture - Final NO GROWTH AFTER 5 DAYS Complete 04/09/17 12:25 Sputum Gram Stain - Final Complete 04/09/17 12:25 Sputum Culture - Final Staphylococcus Aureus - Mrsa Zaria Albicans Complete 04/08/17 23:50 Urine,Clean Catch Urine Culture - Final NO GROWTH AFTER 48 HOURS Complete 04/08/17 23:50 Rectum VRE Culture - Final Enterococcus Faecium - Vre Complete Laboratory Tests Test 04/14/17 05:15 04/14/17 10:15 White Blood Count 9.2 K/UL (4.8-10.8) Red Blood Count 2.88 M/UL (4.20-5.40) L Hemoglobin 9.3 G/DL (12.0-16.0) L Hematocrit 28.1 % (37.0-47.0) L Mean Corpuscular Volume 97 FL (80-99) Mean Corpuscular Hemoglobin 32.2 PG (27.0-31.0) H Mean Corpuscular Hemoglobin Concent 33.0 G/DL (32.0-36.0) Red Cell Distribution Width 14.5 % (11.6-14.8) Platelet Count 402 K/UL (150-450) Mean Platelet Volume 5.3 FL (6.5-10.1) L Neutrophils (%) (Auto) 55.2 % (45.0-75.0) Lymphocytes (%) (Auto) 25.6 % (20.0-45.0) Monocytes (%) (Auto) 12.0 % (1.0-10.0) H Eosinophils (%) (Auto) 6.4 % (0.0-3.0) H Basophils (%) (Auto) 0.8 % (0.0-2.0) Sodium Level 142 MMOL/L (136-145) Potassium Level 4.1 MMOL/L (3.5-5.1) Chloride Level 108 MMOL/L (98-107) H Carbon Dioxide Level 29 MMOL/L (21-32) Anion Gap 5 mmol/L (5-15) Blood Urea Nitrogen 11 mg/dL (7-18) Creatinine 0.4 MG/DL (0.55-1.30) L Estimat Glomerular Filtration Rate mL/min (>60) Glucose Level 140 MG/DL (74-106) H Calcium Level 9.9 MG/DL (8.5-10.1) Magnesium Level 1.7 MG/DL (1.8-2.4) L Arterial Blood pH 7.460 (7.350-7.450) Arterial Blood Partial Pressure CO2 38.9 mmHg (35.0-45.0) Arterial Blood Partial Pressure O2 86.9 mmHg (75.0-100.0) Arterial Blood HCO3 27.3 mmol/L (22.0-26.0) H Arterial Blood Oxygen Saturation 96.6 % (92.0-98.0) Arterial Blood Base Excess 3.4 Kelvin Test N/a Current Medications Medications (Trade) Dose Ordered Sig/Jacque Route PRN Reason Start Time Stop Time Status Last Admin Dose Admin Acetaminophen (Tylenol) 650 mg Q4H PRN ORAL Mild Pain (Pain Scale 1-3) 04/13/17 15:15 05/08/17 23:14 Acetaminophen (Tylenol) 650 mg Q4H PRN RECTAL Mild Pain (Pain Scale 1-3) 04/13/17 15:15 05/08/17 23:14 Albuterol/ Ipratropium (Albuterol/ Ipratropium) 3 ml Q6HR HHN 04/13/17 18:00 04/18/17 12:20 04/14/17 12:51 Apixaban (Eliquis) 5 mg BID ORAL 04/13/17 18:00 05/12/17 17:59 04/14/17 09:34 Calcitonin [place] (Miacalcin) 1 sprays DAILY NASAL 04/14/17 09:00 05/10/17 08:59 04/14/17 12:40 Chlorhexidine Gluconate (Laly-Hex 2%) 1 applic DAILY@2000 TOPIC 04/13/17 20:00 05/10/17 20:59 Clotrimazole (Lotrimin) 1 applic EVERY 12 HOURS TOPIC 04/13/17 21:00 05/09/17 14:59 04/14/17 09:35 Dextrose (Dextrose 50%) STAT PRN IV Hypoglycemia 04/13/17 23:15 05/08/17 23:14 Docusate Sodium (Colace) 100 mg Q12H GT 04/13/17 21:00 05/09/17 20:59 04/14/17 09:33 Insulin Aspart (NovoLOG) EVERY 6 HOURS SUBQ 04/13/17 18:00 05/09/17 11:29 04/14/17 12:38 Levothyroxine Sodium (Synthroid) 50 mcg DAILY ORAL 04/14/17 09:00 05/09/17 06:29 04/14/17 09:34 Lorazepam (Ativan 2mg/ml 1ml) 2 mg Q4H PRN IV For Anxiety 04/14/17 15:00 04/16/17 14:59 Morphine Sulfate (Morphine Sulfate) 4 mg Q4H PRN IVP Moderate-Severe Pain (4-10 04/14/17 15:00 04/16/17 14:59 Olanzapine (ZyPREXA) 5 mg Q6H PRN NG agitation 04/13/17 12:45 05/09/17 12:44 Ondansetron HCl (Zofran) 4 mg Q6H PRN IVP Nausea & Vomiting 04/13/17 17:15 05/08/17 23:14 Pantoprazole (Protonix) 40 mg DAILY IV 04/14/17 09:00 05/09/17 08:59 04/14/17 09:34 Piperacillin Sod/ Tazobactam Sod 3.375 gm/Dextrose 55 ml @ 13.75 mls/ hr EVERY 8 HOURS IV 04/13/17 14:00 04/16/17 05:59 04/14/17 06:16 Polyethylene Glycol (Miralax) 17 gm DAILYPRN PRN ORAL Constipation 04/13/17 23:15 05/08/17 23:14 04/13/17 21:18 Promethazine HCl/ Codeine (Phenergan with Codeine) 5 ml Q4H PRN ORAL For Cough 04/13/17 14:15 05/09/17 10:14 Valproic Acid (Depakene) 500 mg Q12HR GT 04/13/17 21:00 05/09/17 16:29 04/14/17 09:33 Vancomycin HCl (Vanco rx to dose) 1 ea DAILY PRN MISC Per rx protocol 04/14/17 09:00 05/08/17 23:14 Vancomycin HCl 1 gm/Dextrose 275 ml @ 183.708 mls/hr Q12H IVPB 04/13/17 14:00 04/17/17 13:59 04/14/17 14:35 TIERA PRADO Apr 14, 2017 15:09
[2017-04-14 16:00] VITALS: BP 124/54
[2017-04-14] MEDS ORDERED: Tubing IV Secondary IV ONE ×2 (16:15→16:17)
[2017-04-14] MEDS ORDERED: NS 500ML ONE (16:15)
--- NOTE | 2017-04-14 18:32 | General Progress Note ---
Assessment/Plan Problem List: (1) Altered level of consciousness ICD Codes: R40.4 - Transient alteration of awareness SNOMED: 3036370 (2) Aspiration pneumonia ICD Codes: J69.0 - Pneumonitis due to inhalation of food and vomit SNOMED: 693412038 Qualifiers: Qualified Codes: J69.0 - Pneumonitis due to inhalation of food and vomit (3) Acute respiratory failure ICD Codes: J96.00 - Acute respiratory failure, unspecified whether with hypoxia or hypercapnia SNOMED: 86103943 (4) Anemia ICD Codes: D64.9 - Anemia, unspecified SNOMED: 328144221 (5) Encounter for PEG (percutaneous endoscopic gastrostomy) ICD Codes: Z43.1 - Encounter for attention to gastrostomy SNOMED: 556417973, 792771490 (6) Toxic metabolic encephalopathy ICD Codes: G92 - Toxic encephalopathy SNOMED: 977871246 (7) Sepsis ICD Codes: A41.9 - Sepsis, unspecified organism SNOMED: 61113586 (8) Dementia ICD Codes: F03.90 - Dementia SNOMED: 97785522 (9) UTI (lower urinary tract infection) ICD Codes: N39.0 - Urinary tract infection, site not specified SNOMED: 2757112 (10) JUJU (acute kidney injury) ICD Codes: N17.9 - Acute kidney failure, unspecified SNOMED: 07986005 (11) Seizure disorder ICD Codes: G40.909 - Epilepsy, unspecified, not intractable, without status epilepticus SNOMED: 073365066 Status: progressing Assessment/Plan Pulmonary and ID consulted, appreciate rec's Extubated on 04/13/17 Cont abx per ID: citlalli and leónn (04/08-) F/u cultures Appreciate GI rec's s/p PEG on 04/11/17 Cont tube feeds via PEG 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 Daughter wants pt to remain full code. D/w daughter and she has decided on [facility]. CM consulted for d/c plan w/ hospice. Will need tube feeds set up prior to d/c DVT Prophylaxis: Eliquis Code Status: Full Hospital Classification Declaration: Based on this initial evaluation, and depending on the patient's clinical course, I anticipate that this patient will require hospitalization for 1-2 days for respiratory failure, PNA and close respiratory/hemodynamic monitoring. Disposition: Once the patient is stable to leave the hospital, I anticipate the patient will likely be discharged to the following environment: home with hospice Discussed with patient/family, nursing staff, SW/CM, pulm, ID, GI regarding clinical status, treatment course, and disposition planning. D/w daughter re plan for d/c home w/ hospice Time of note may not reflect time of encounter. 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 family requesting bowel regimen medications given patient has not had a bowel movement for several days family requesting to transfer to hospice and discharge early next week tolerating tube feeds Objective Last 24 Hour Vital Signs Date Time Temp Pulse Resp B/P (MAP) Pulse Ox O2 Delivery O2 Flow Rate FiO2 04/14/17 16:00 97.5 69 20 124/54 96 04/14/17 13:01 72 18 100 Nasal Cannula 1.0 24 04/14/17 12:52 72 18 98 Nasal Cannula 2.0 28 04/14/17 12:00 98.2 75 20 116/48 98 04/14/17 08:23 71 18 99 Nasal Cannula 2.0 28 04/14/17 08:00 97.7 62 20 127/57 98 04/14/17 07:59 65 18 98 Nasal Cannula 2.0 28 04/14/17 07:56 Nasal Cannula 2.0 28 04/14/17 07:55 98 Nasal Cannula 2.0 28 04/14/17 04:00 97.7 94 20 124/53 94 Nasal Cannula 2.0 04/14/17 01:24 86 18 99 Nasal Cannula 2.0 28 04/14/17 01:14 95 20 95 Nasal Cannula 2.0 28 04/14/17 00:00 97.5 80 20 126/52 97 Nasal Cannula 2.0 04/13/17 20:00 97.5 82 20 123/54 95 Nasal Cannula 2.0 04/13/17 19:33 98 18 99 Nasal Cannula 2.0 28 04/13/17 19:00 97.6 74 18 125/60 98 Nasal Cannula 2.0 76 Intake and Output 04/14/17 04/15/17 19:00 07:00 Intake Total 600 ml Balance 600 ml Tube Feeding 600 ml Laboratory Tests 04/14/17 05:15: White Blood Count 9.2, Red Blood Count 2.88L, Hemoglobin 9.3L, Hematocrit 28.1L , Mean Corpuscular Volume 97, Mean Corpuscular Hemoglobin 32.2H, Mean Corpuscular Hemoglobin Concent 33.0, Red Cell Distribution Width 14.5, Platelet Count 402, Mean Platelet Volume 5.3L, Neutrophils (%) (Auto) 55.2, Lymphocytes ( %) (Auto) 25.6, Monocytes (%) (Auto) 12.0H, Eosinophils (%) (Auto) 6.4H, Basophils (%) (Auto) 0.8, Sodium Level 142, Potassium Level 4.1, Chloride Level 108H, Carbon Dioxide Level 29, Anion Gap 5, Blood Urea Nitrogen 11, Creatinine 0.4L, Estimat Glomerular Filtration Rate , Glucose Level 140H, Calcium Level 9.9 , Magnesium Level 1.7L 04/14/17 10:15: Arterial Blood pH 7.460H, Arterial Blood Partial Pressure CO2 38.9, Arterial Blood Partial Pressure O2 86.9, Arterial Blood HCO3 27.3H, Arterial Blood Oxygen Saturation 96.6, Arterial Blood Base Excess 3.4, Kelvin Test N/a Height (Feet): 5 Height (Inches): 3.00 Weight (Pounds): 172 General Appearance: no apparent distress, lethargic, confused EENT: PERRL/EOMI Neck: non-tender, normal alignment, supple Cardiovascular: normal peripheral pulses, regularly irregular Respiratory/Chest: chest wall non-tender, normal breath sounds, no respiratory distress Abdomen: normal bowel sounds, non tender, other - +PEG 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 Apr 14, 2017 18:32
[2017-04-14 20:00] VITALS: BP 137/71
[2017-04-14] MEDS: Dyna-Hex 2% Top Sol 2oz TOPIC SCH (20:00)
[2017-04-14 21:44] LABS: APPEARANCE,URINE CLEAR; KETONES,URINE NEGATIVE (NEGATIVE); LEUKOCYTE ESTERASE ,URINE 3+ (NEGATIVE); NITRITE,URINE NEGATIVE (NEGATIVE); PH,URINE 6.5 (4.5-8.0); PROTEIN,URINE NEGATIVE (NEGATIVE); UROBILINOGEN,URINE 4 MG/DL (0.0-1.0)
[2017-04-14 22:05] LABS: BACTERIA,URINE FEW /HPF; SQUAMOUS EPITHELIAL CELL,UR OCCASIONAL /LPF (NONE/OCC); YEAST,URINE MODERATE /HPF
[2017-04-15] VITALS: BP 128/67
[2017-04-15] MEDS: NovoLOG Insulin Flexpen SUBQ SCH ×4 (00:09→19:12)
[2017-04-15] MEDS: Albuterol/Ipratropium 3ml neb HHN SCH ×4 (01:19→19:38)
[2017-04-15] MEDS: Vancomycin 1 GM in D5W 275 ML IVPB SCH ×2 (01:47→16:30)
[2017-04-15 04:00] VITALS: BP 129/67
[2017-04-15] MEDS: Piperacillin/Tazobactam 3.375 GM in D5W 55 ML IV SCH ×3 (05:47→21:52)
[2017-04-15 08:00] VITALS: BP 148/69
[2017-04-15] MEDS: Docusate 100mg/10ml Liq GT SCH ×2 (08:53→21:26)
[2017-04-15] MEDS: Pantoprazole Inj IV SCH (08:54)
[2017-04-15] MEDS: Valproic Acid 250mg/5ml Liquid GT SCH ×2 (08:54→21:26)
[2017-04-15] MEDS: Eliquis 2.5mg tablet ORAL SCH (08:54)
--- NOTE | 2017-04-15 10:13 | Pulmonology Progress Note ---
Assessment/Plan Assessment/Plan ASSESSMENT Acute hypoxemic hypercapnic RF requiring intubation s/p extubation 04/12 Sepsis PNA with MRSA hx of recurrent aspiration PNA Acute toxic metabolic encephalopathy ( likely due to sepsis)on chronic dementia Acute kidney injury Hyperkalemia-resolved Dysphagia s/p EGD and PEG atrophic gastritis COPD Hx of DVT/PE anemia of chronic disease seizure disorder Alzheimer dementia severe protein calorie malnutrition PLAN OF CARE [facility] floor titrate O2 to keep sat above 92% fup with CXR on Sunday IV abx, ID follows sputum cx + MRSA urine cx negative, blood cx prelim negative s/p IVF, renal parameters down to normal., JUJU was likely due to sepsis and possible dehydration monitor lytes and correct as needed( replace K and Mg today) s/p EGD and PEG with findings of atrophic gastritis strict aspiration /reflux precautions, GT feeding, site care, abdominal binder monitor TF tolerance GI follows Fup with biopsy results DVT GI prophylaxis venous Duplex BLE anemia w/up c/w anemia of chronic disease, monitor counts, transfuse prn seizure precautions, continue Depakote acute encephalopathy likely due to sepsis pain management bowel regimen cleared from pulmonary standpoint case discussed and evaluated by supervising physician Subjective Allergies: Coded Allergies: NO KNOWN DRUG ALLERGIES (Unverified Allergy, Unknown, 07/29/14) Subjective on [facility] floor on O2 via NC pulse oximetry stable ABG on O2 via NC stable afebrile, no leukocytosis Objective Last 24 Hour Vital Signs Date Time Temp Pulse Resp B/P (MAP) Pulse Ox O2 Delivery O2 Flow Rate FiO2 04/15/17 08:00 97.3 89 20 148/69 95 04/15/17 07:35 84 18 99 Nasal Cannula 3.0 32 04/15/17 07:35 28 04/15/17 07:25 Nasal Cannula 2.0 28 04/15/17 07:25 97 Nasal Cannula 2.0 28 04/15/17 07:24 75 18 97 Nasal Cannula 2.0 28 04/15/17 04:00 Nasal Cannula 2.0 04/15/17 04:00 97.5 71 20 129/67 93 04/15/17 01:26 82 18 99 Nasal Cannula 3.0 32 04/15/17 01:17 28 04/15/17 01:17 91 18 97 Nasal Cannula 2.0 28 04/15/17 01:17 91 18 Room Air 04/15/17 00:00 Nasal Cannula 2.0 04/15/17 00:00 98.6 64 21 128/67 91 04/14/17 20:18 85 16 96 Nasal Cannula 2.0 28 04/14/17 20:07 96 Nasal Cannula 2.0 28 04/14/17 20:07 28 04/14/17 20:07 96 Nasal Cannula 2.0 28 04/14/17 20:07 83 14 96 Nasal Cannula 2.0 28 04/14/17 20:07 Nasal Cannula 2.0 28 04/14/17 20:00 97.7 81 19 137/71 94 04/14/17 20:00 Nasal Cannula 2.0 04/14/17 16:00 Nasal Cannula 2.0 04/14/17 16:00 97.5 69 20 124/54 96 04/14/17 13:01 72 18 100 Nasal Cannula 1.0 24 04/14/17 12:52 72 18 98 Nasal Cannula 2.0 28 04/14/17 12:00 Nasal Cannula 2.0 04/14/17 12:00 98.2 75 20 116/48 98 Objective General Appearance: no acute distress HEENT: normocephalic, atraumatic, anicteric, O2 via NC Respiratory/Chest: chest wall non-tender, lungs clear with moderate air entry Cardiovascular: normal peripheral pulses, normal rate, no JVD Abdomen: normal bowel sounds, soft, non tender Neurologic/Psychiatric: abnormal gait, alert, responsive Musculoskeletal: atrophy - BLE Microbiology Date/Time Source Procedure Growth Status 04/14/17 20:10 Urine,Clean Catch Urine Culture - Preliminary NO GROWTH Resulted Laboratory Tests 04/14/17 10:15: Arterial Blood pH 7.460H, Arterial Blood Partial Pressure CO2 38.9, Arterial Blood Partial Pressure O2 86.9, Arterial Blood HCO3 27.3H, Arterial Blood Oxygen Saturation 96.6, Arterial Blood Base Excess 3.4, Kelvin Test N/a 04/14/17 20:10: Urine Color Yellow, Urine Appearance Clear, Urine pH 6.5, Urine Specific [place] 1.015, Urine Protein Negative, Urine Glucose (UA) Negative, Urine Ketones Negative, Urine Occult Blood 1+H, Urine Nitrite Negative, Urine Bilirubin Negative, Urine Urobilinogen 4H, Urine Leukocyte Esterase 3+H, Urine RBC 2-4H, Urine WBC 10-15H, Urine Squamous Epithelial Cells Occasional, Urine Bacteria Few, Urine Yeast ModerateH Current Medications Medications (Trade) Dose Ordered Sig/Jacque Route PRN Reason Start Time Stop Time Status Last Admin Dose Admin Acetaminophen (Tylenol) 650 mg Q4H PRN ORAL Mild Pain (Pain Scale 1-3) 04/13/17 15:15 05/08/17 23:14 Acetaminophen (Tylenol) 650 mg Q4H PRN RECTAL Mild Pain (Pain Scale 1-3) 04/13/17 15:15 05/08/17 23:14 Albuterol/ Ipratropium (Albuterol/ Ipratropium) 3 ml Q6HR HHN 04/13/17 18:00 04/18/17 12:20 04/15/17 07:24 Apixaban (Eliquis) 5 mg BID ORAL 04/13/17 18:00 05/12/17 17:59 04/15/17 08:54 Bisacodyl (Dulcolax) 10 mg DAILYPRN PRN RECTAL Constipation 04/14/17 20:00 05/14/17 19:59 04/14/17 21:42 Calcitonin [employer] (Miacalcin) 1 sprays DAILY NASAL 04/14/17 09:00 05/10/17 08:59 04/15/17 09:02 Clotrimazole (Lotrimin) 1 applic EVERY 12 HOURS TOPIC 04/13/17 21:00 05/09/17 14:59 04/15/17 09:50 Dextrose (Dextrose 50%) STAT PRN IV Hypoglycemia 04/13/17 23:15 05/08/17 23:14 Docusate Sodium (Colace) 100 mg Q12H GT 04/13/17 21:00 05/09/17 20:59 04/15/17 08:53 Insulin Aspart (NovoLOG) EVERY 6 HOURS SUBQ 04/13/17 18:00 05/09/17 11:29 04/15/17 05:49 Levothyroxine Sodium (Synthroid) 50 mcg DAILY ORAL 04/14/17 09:00 05/09/17 06:29 04/15/17 09:03 Lorazepam (Ativan 2mg/ml 1ml) 2 mg Q4H PRN IV For Anxiety 04/14/17 15:00 04/16/17 14:59 04/15/17 00:27 Morphine Sulfate (Morphine Sulfate) 4 mg Q4H PRN IVP Moderate-Severe Pain (4-10 04/14/17 15:00 04/16/17 14:59 04/14/17 22:35 Olanzapine (ZyPREXA) 5 mg Q6H PRN NG agitation 04/13/17 12:45 05/09/17 12:44 Ondansetron HCl (Zofran) 4 mg Q6H PRN IVP Nausea & Vomiting 04/13/17 17:15 05/08/17 23:14 Pantoprazole (Protonix) 40 mg DAILY IV 04/14/17 09:00 05/09/17 08:59 04/15/17 08:54 Piperacillin Sod/ Tazobactam Sod 3.375 gm/Dextrose 55 ml @ 13.75 mls/ hr EVERY 8 HOURS IV 04/14/17 16:00 04/19/17 15:59 04/15/17 05:47 Polyethylene Glycol (Miralax) 17 gm DAILYPRN PRN ORAL Constipation 04/13/17 23:15 05/08/17 23:14 04/13/17 21:18 Promethazine HCl/ Codeine (Phenergan with Codeine) 5 ml Q4H PRN ORAL For Cough 04/13/17 14:15 05/09/17 10:14 Valproic Acid (Depakene) 500 mg Q12HR GT 04/13/17 21:00 05/09/17 16:29 04/15/17 08:54 Vancomycin HCl (Vanco rx to dose) 1 ea DAILY PRN MISC Per rx protocol 04/14/17 09:00 05/08/17 23:14 Vancomycin HCl 1 gm/Dextrose 275 ml @ 183.708 mls/hr Q12H IVPB 04/13/17 14:00 04/17/17 13:59 04/15/17 01:47 Esther Mahajan NP ([facility]) Apr 15, 2017 10:13
[2017-04-15 12:00] VITALS: BP 151/80
[2017-04-15 16:00] VITALS: BP 130/64
--- NOTE | 2017-04-15 18:16 | General Progress Note ---
Assessment/Plan Problem List: (1) Altered level of consciousness ICD Codes: R40.4 - Transient alteration of awareness SNOMED: 7457365 (2) Aspiration pneumonia ICD Codes: J69.0 - Pneumonitis due to inhalation of food and vomit SNOMED: 453616530 Qualifiers: Qualified Codes: J69.0 - Pneumonitis due to inhalation of food and vomit (3) Acute respiratory failure ICD Codes: J96.00 - Acute respiratory failure, unspecified whether with hypoxia or hypercapnia SNOMED: 02819133 (4) Anemia ICD Codes: D64.9 - Anemia, unspecified SNOMED: 800320200 (5) Encounter for PEG (percutaneous endoscopic gastrostomy) ICD Codes: Z43.1 - Encounter for attention to gastrostomy SNOMED: 582978285, 581453217 (6) Toxic metabolic encephalopathy ICD Codes: G92 - Toxic encephalopathy SNOMED: 323340360 (7) Sepsis ICD Codes: A41.9 - Sepsis, unspecified organism SNOMED: 26014006 (8) Dementia ICD Codes: F03.90 - Dementia SNOMED: 16755565 (9) UTI (lower urinary tract infection) ICD Codes: N39.0 - Urinary tract infection, site not specified SNOMED: 2680171 (10) JUJU (acute kidney injury) ICD Codes: N17.9 - Acute kidney failure, unspecified SNOMED: 12100135 (11) Seizure disorder ICD Codes: G40.909 - Epilepsy, unspecified, not intractable, without status epilepticus SNOMED: 402278548 Status: stable Assessment/Plan Pulmonary and ID consulted, appreciate rec's Extubated on 04/13/17 Cont abx per ID: vanco and zosyn (04/08-) F/u cultures Appreciate GI rec's s/p PEG on 04/11/17 Cont tube feeds via PEG 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 Daughter wants pt to remain full code. D/w daughter and she has decided on [facility]. CM consulted for d/c plan w/ hospice. Will need tube feeds set up prior to d/c DVT Prophylaxis: Eliquis Code Status: Full Hospital Classification Declaration: Based on this initial evaluation, and depending on the patient's clinical course, I anticipate that this patient will require hospitalization for 1-2 days for respiratory failure, PNA and close respiratory/hemodynamic monitoring. Disposition: Once the patient is stable to leave the hospital, I anticipate the patient will likely be discharged to the following environment: home with hospice Discussed with patient/family, nursing staff, SW/CM, pulm, ID, GI regarding clinical status, treatment course, and disposition planning. D/w daughter re plan for d/c home w/ hospice Time of note may not reflect time of encounter. 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 tolerating tube feeds Objective Last 24 Hour Vital Signs Date Time Temp Pulse Resp B/P (MAP) Pulse Ox O2 Delivery O2 Flow Rate FiO2 04/15/17 16:00 97.7 78 20 130/64 97 04/15/17 13:27 91 18 96 Nasal Cannula 2.0 28 04/15/17 13:27 28 04/15/17 12:00 98.2 81 20 151/80 97 04/15/17 08:00 97.3 89 20 148/69 95 04/15/17 07:35 84 18 99 Nasal Cannula 3.0 32 04/15/17 07:35 28 04/15/17 07:25 Nasal Cannula 2.0 28 04/15/17 07:25 97 Nasal Cannula 2.0 28 04/15/17 07:24 75 18 97 Nasal Cannula 2.0 28 04/15/17 04:00 Nasal Cannula 2.0 04/15/17 04:00 97.5 71 20 129/67 93 04/15/17 01:26 82 18 99 Nasal Cannula 3.0 32 04/15/17 01:17 28 04/15/17 01:17 91 18 97 Nasal Cannula 2.0 28 04/15/17 01:17 91 18 Room Air 04/15/17 00:00 Nasal Cannula 2.0 04/15/17 00:00 98.6 64 21 128/67 91 04/14/17 20:18 85 16 96 Nasal Cannula 2.0 28 04/14/17 20:07 96 Nasal Cannula 2.0 28 04/14/17 20:07 28 04/14/17 20:07 96 Nasal Cannula 2.0 28 04/14/17 20:07 83 14 96 Nasal Cannula 2.0 28 04/14/17 20:07 Nasal Cannula 2.0 28 04/14/17 20:00 97.7 81 19 137/71 94 04/14/17 20:00 Nasal Cannula 2.0 Intake and Output 04/15/17 04/16/17 19:00 07:00 # Bowel Movements 1 Laboratory Tests 04/14/17 20:10: Urine Color Yellow, Urine Appearance Clear, Urine pH 6.5, Urine Specific [place] 1.015, Urine Protein Negative, Urine Glucose (UA) Negative, Urine Ketones Negative, Urine Occult Blood 1+H, Urine Nitrite Negative, Urine Bilirubin Negative, Urine Urobilinogen 4H, Urine Leukocyte Esterase 3+H, Urine RBC 2-4H, Urine WBC 10-15H, Urine Squamous Epithelial Cells Occasional, Urine Bacteria Few, Urine Yeast ModerateH Height (Feet): 5 Height (Inches): 3.00 Weight (Pounds): 174 General Appearance: no apparent distress, alert EENT: PERRL/EOMI Neck: non-tender, normal alignment, supple Cardiovascular: normal peripheral pulses, regularly irregular Respiratory/Chest: chest wall non-tender, lungs clear, normal breath sounds Abdomen: normal bowel sounds, non tender, soft, other - +PEG 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 Apr 15, 2017 18:16
[2017-04-15] MEDS ORDERED: Miralax 17gm pkt GT PRN (19:00)
[2017-04-15] MEDS ORDERED: Promethazine/Codeine 5ml UD GT PRN (19:00)
[2017-04-15 20:00] VITALS: BP 140/70
--- NOTE | 2017-04-15 21:38 | Wound Care Consultation ---
Wound Assessment Wound Assessment #1: Wound Number: 1 Wound Present on Admission: Yes New Wound: No Status Change of Wound: No Wound Location Body Site Modif: mid Wound Location Body Site: other - Sacrococcygeal area Wound Type: pressure ulcer Rock Test: Does not Rock Pressure Ulcer Stage: Deep Tissue Injury Wound Thickness: Full Thickness Wound Length: 2.5 Wound Width: 2.0 Wound Depth: utd Percent of Wound Purple/Maroon: 100 Wound Drainage Amount: None Wound Drainage Odor: None/Absent Tissue Surrounding Wound: Erythemic Wound General Appearance: Reddened - purple Wound Assessment #2: Wound Number: 2 Wound Present on Admission: Yes New Wound: No Status Change of Wound: No Wound Location Body Site Modif: left, right Wound Location Body Site: buttocks Wound Type: pressure ulcer Rock Test: Does not Rock Pressure Ulcer Stage: Deep Tissue Injury - scattered Wound Thickness: Full Thickness Percent of Wound Purple/Maroon: 100 Wound Drainage Amount: None Wound Drainage Odor: None/Absent Tissue Surrounding Wound: Erythemic Wound General Appearance: Reddened - purple Wound Assessment #3: Wound Number: 3 Wound Present on Admission: Yes New Wound: No Status Change of Wound: No Wound Location Body Site: perineal area Wound Type: other - IAD Rock Test: Does not Rock Percent of Wound Rosebud/Red: 100 Wound Drainage Amount: None Wound Drainage Odor: None/Absent Tissue Surrounding Wound: Erythemic Wound General Appearance: Reddened, Open to air Wound Assessment #4: Wound Number: 4 Wound Present on Admission: Yes New Wound: No Status Change of Wound: No Wound Location Body Site Modif: right, lower, lateral Wound Location Body Site: leg Wound Type: lesion-etiology unknown Rock Test: Does not Rock Wound Thickness: Full Thickness Wound Length: 2.5 Wound Width: 2.0 Wound Depth: utd Percent of Wound Black/Brown: 100 Wound Drainage Description: Serosanguineous Wound Drainage Amount: Scant Wound Drainage Odor: None/Absent Tissue Surrounding Wound: Erythemic - Denuded Wound General Appearance: Reddened - black, Draining Wound Comment #1 Sacrococcygeal DTI pressure ulcer. Skin still intact. Will cont same wound care treatment #2 Left and right buttock scattered stage DTI pressure ulcer. Skin still intact #3 Rash on lower back area. Good progress noted. Resolving. #4 Right 1st and 2nd toe scattered dry scabs #5 Right lateral leg open wound etiology unknown. No Deterioration noted #6 Incontinent associated dermatitis on perineal area, sacrococcygeal area, extending to left and right buttocks. Noted with good progress. Will cont same wound care treatment Reassessment done on this Pt. No deterioration noted at this time. Will cont same wound treatment and recommendation below. Recommendation -Local wound care per protocol -Keep clean and dry -Optimize nutrition -Turn and reposition -Offload both heels -Heel protector on both heels -Low air loss mattress -Assess and f/u according for any changes NILDA MEREDITH RN Apr 15, 2017 21:38
[2017-04-16] VITALS: BP 132/59
[2017-04-16] MEDS: NovoLOG Insulin Flexpen SUBQ SCH ×5 (00:08→23:30)
[2017-04-16] MEDS: Albuterol/Ipratropium 3ml neb HHN SCH ×4 (01:32→19:43)
[2017-04-16] MEDS: Vancomycin 1 GM in D5W 275 ML IVPB SCH ×2 (02:01→14:00)
[2017-04-16 04:00] VITALS: BP 132/61
[2017-04-16] MEDS: Piperacillin/Tazobactam 3.375 GM in D5W 55 ML IV SCH ×2 (06:06→14:00)
[2017-04-16 08:15] VITALS: BP 146/62
[2017-04-16] MEDS: Valproic Acid 250mg/5ml Liquid GT SCH ×2 (10:35→21:02)
[2017-04-16] MEDS: Docusate 100mg/10ml Liq GT SCH ×2 (10:36→21:03)
[2017-04-16] MEDS: Pantoprazole Inj IV SCH (10:36)
--- NOTE | 2017-04-16 10:36 | GI Progress Note ---
Assessment/Plan Problems: (1) Dementia ICD Codes: F03.90 - Dementia SNOMED: 18747186 (2) Sepsis ICD Codes: A41.9 - Sepsis, unspecified organism SNOMED: 93362262 (3) Anemia ICD Codes: D64.9 - Anemia, unspecified SNOMED: 761644372 (4) Encounter for PEG (percutaneous endoscopic gastrostomy) ICD Codes: Z43.1 - Encounter for attention to gastrostomy SNOMED: 338728893, 488340163 Status: stable Status Narrative Discussed with Dr. Morales. Assessment/Plan SUMMARY OF FINDINGS: 1. Gastritis, status post biopsy. 2. Status post successful G-tube placement. RECOMMENDATIONS: Abdominal binder. Elevate head of the bed at all times. G-tube flush. G-tube care. GTFs per dietary to goal prn transfusions ppi fu labs The patient was seen and examined at bedside and all new and available data was reviewed in the patients chart. I agree with the above findings, impression and plan. (Patient seen earlier today. Signature stamp does not reflect patient encounter time.). - Precious Morales MD Subjective Subjective limited Objective Last 24 Hour Vital Signs Date Time Temp Pulse Resp B/P (MAP) Pulse Ox O2 Delivery O2 Flow Rate FiO2 04/16/17 09:05 80 16 99 Nasal Cannula 2.0 04/16/17 08:53 80 18 98 Nasal Cannula 2.0 28 04/16/17 08:53 28 04/16/17 08:53 98 Nasal Cannula 2.0 28 04/16/17 08:53 Nasal Cannula 2.0 28 04/16/17 08:15 97.7 76 19 146/62 97 Nasal Cannula 2.0 04/16/17 04:00 99 Nasal Cannula 2.0 04/16/17 04:00 97.7 80 21 132/61 99 04/16/17 01:47 83 16 99 Nasal Cannula 2.0 28 04/16/17 01:32 83 16 97 Nasal Cannula 2.0 28 04/16/17 01:32 28 04/16/17 00:00 97.7 79 20 132/59 95 04/16/17 00:00 95 Nasal Cannula 2.0 04/15/17 20:00 97.7 80 20 140/70 97 04/15/17 20:00 97 Nasal Cannula 2.0 04/15/17 19:47 82 18 99 Nasal Cannula 2.0 28 04/15/17 19:38 28 04/15/17 19:38 78 18 95 Nasal Cannula 2.0 28 04/15/17 19:38 Nasal Cannula 2.0 28 04/15/17 19:38 95 Nasal Cannula 2.0 28 04/15/17 16:00 97.7 78 20 130/64 97 04/15/17 13:27 91 18 96 Nasal Cannula 2.0 28 04/15/17 13:27 28 04/15/17 12:00 98.2 81 20 151/80 97 Intake and Output 04/16/17 04/17/17 19:00 07:00 Intake Total 13.75 ml Balance 13.75 ml IV Total 13.75 ml Height (Feet): 5 Height (Inches): 3.00 Weight (Pounds): 173 General Appearance: WD/WN, no apparent distress, alert Cardiovascular: normal rate Respiratory/Chest: normal breath sounds, no respiratory distress, other - 2LNC Abdominal Exam: normal bowel sounds, non tender, soft, GT site - c/d/i Extremities: normal range of motion, non-tender Yvonne Grace NAndrew Apr 16, 2017 10:36 BESSY MORALES Apr 17, 2017 08:31
[2017-04-16] MEDS: Eliquis 2.5mg tablet GT SCH ×2 (10:37→18:46)
[2017-04-16 10:53] LABS: BASOPHILS % (AUTO) 0.8 % (0.0-2.0); EOSINOPHILS % (AUTO) 5.4 % (0.0-3.0); LYMPHOCYTES % (AUTO) 34.9 % (20.0-45.0); MEAN CORPUSCULAR HEMOGLOBIN 30.2 PG (27.0-31.0); MEAN CORPUSCULAR HGB CONC 31.2 G/DL (32.0-36.0); MEAN CORPUSCULAR VOLUME 97 FL (80-99); MEAN PLATELET VOLUME 5.2 FL (6.5-10.1); MONOCYTES % (AUTO) 12.2 % (1.0-10.0); NEUTROPHILS % (AUTO) 46.7 % (45.0-75.0); PLATELET COUNT 571 K/UL (150-450); RED BLOOD COUNT 3.14 M/UL (4.20-5.40); RED CELL DISTRIBUTION WIDTH 14.6 % (11.6-14.8); WHITE BLOOD COUNT 9.7 K/UL (4.8-10.8)
--- NOTE | 2017-04-16 10:57 | Pulmonology Progress Note ---
Assessment/Plan Problems: (1) Acute respiratory failure (2) History of pulmonary aspiration (3) DVT/PE (4) Sepsis (5) Infection due to ESBL-producing Escherichia coli (6) Dementia (7) Schizophrenia (8) Encounter for PEG (percutaneous endoscopic gastrostomy) (9) Chronic bronchitis (10) Generalized weakness (11) Altered level of consciousness Assessment/Plan -Optimize pulmonary hygiene/mobilize as tolerated -Titrate down FiO2 to keep SaO2 > 90% -RTC and PRN HHN's -Abx per ID, F/U Cx's -F/U CXR -F/U AML -DVT Px: Eliquis -TF"s as tolerated -F/U GI path -FC but dispo planning to hospice? Subjective Allergies: Coded Allergies: NO KNOWN DRUG ALLERGIES (Unverified Allergy, Unknown, 07/29/14) Subjective AFVSS, O2 needs stable, lula TF's, + cough, + SOB CXR pending, AML pending Objective Last 24 Hour Vital Signs Date Time Temp Pulse Resp B/P (MAP) Pulse Ox O2 Delivery O2 Flow Rate FiO2 04/16/17 09:05 80 16 99 Nasal Cannula 2.0 04/16/17 08:53 80 18 98 Nasal Cannula 2.0 04/16/17 08:53 28 04/16/17 08:53 98 Nasal Cannula 2.0 04/16/17 08:53 Nasal Cannula 2.0 04/16/17 08:15 97.7 76 19 146/62 97 Nasal Cannula 2.0 04/16/17 04:00 99 Nasal Cannula 2.0 04/16/17 04:00 97.7 80 21 132/61 99 04/16/17 01:47 83 16 99 Nasal Cannula 2.0 04/16/17 01:32 83 16 97 Nasal Cannula 2.0 04/16/17 01:32 28 04/16/17 00:00 97.7 79 20 132/59 95 04/16/17 00:00 95 Nasal Cannula 2.0 04/15/17 20:00 97.7 80 20 140/70 97 04/15/17 20:00 97 Nasal Cannula 2.0 04/15/17 19:47 82 18 99 Nasal Cannula 2.0 04/15/17 19:38 28 04/15/17 19:38 78 18 95 Nasal Cannula 2.0 28 04/15/17 19:38 Nasal Cannula 2.0 28 04/15/17 19:38 95 Nasal Cannula 2.0 28 04/15/17 16:00 97.7 78 20 130/64 97 04/15/17 13:27 91 18 96 Nasal Cannula 2.0 28 04/15/17 13:27 28 04/15/17 12:00 98.2 81 20 151/80 97 Intake and Output 04/16/17 04/17/17 19:00 07:00 Intake Total 13.75 ml Balance 13.75 ml IV Total 13.75 ml General Appearance: no acute distress HEENT: normocephalic, atraumatic, mucous membranes moist Respiratory/Chest: rhonchi - scattered Cardiovascular: normal peripheral pulses, normal rate, regular rhythm Abdomen: normal bowel sounds, soft, non tender, no organomegaly, non distended , other - GT Extremities: no cyanosis, no clubbing, no edema Microbiology Date/Time Source Procedure Growth Status 04/14/17 20:10 Urine,Clean Catch Urine Culture - Preliminary NO GROWTH Resulted Laboratory Tests 04/16/17 10:35: White Blood Count [Pending], Red Blood Count [Pending], Hemoglobin [Pending], Hematocrit [Pending], Mean Corpuscular Volume [Pending], Mean Corpuscular Hemoglobin [Pending], Mean Corpuscular Hemoglobin Concent [Pending], Red Cell Distribution Width [Pending], Platelet Count [Pending], Mean Platelet Volume [ Pending], Neutrophils (%) (Auto) [Pending], Lymphocytes (%) (Auto) [Pending], Monocytes (%) (Auto) [Pending], Eosinophils (%) (Auto) [Pending], Basophils (%) (Auto) [Pending], Sodium Level [Pending], Potassium Level [Pending], Chloride Level [Pending], Carbon Dioxide Level [Pending], Blood Urea Nitrogen [Pending], Creatinine [Pending], Estimat Glomerular Filtration Rate [Pending], Glucose Level [Pending], Calcium Level [Pending] Current Medications Medications (Trade) Dose Ordered Sig/Jacque Route PRN Reason Start Time Stop Time Status Last Admin Dose Admin Acetaminophen (Tylenol) 650 mg Q4H PRN ORAL Mild Pain (Pain Scale 1-3) 04/13/17 15:15 05/08/17 23:14 Acetaminophen (Tylenol) 650 mg Q4H PRN RECTAL Mild Pain (Pain Scale 1-3) 04/13/17 15:15 05/08/17 23:14 Albuterol/ Ipratropium (Albuterol/ Ipratropium) 3 ml Q6HR HHN 04/13/17 18:00 04/18/17 12:20 04/16/17 08:56 Apixaban (Eliquis) 5 mg BID GT 04/16/17 09:00 05/12/17 17:59 04/16/17 10:37 Bisacodyl (Dulcolax) 10 mg DAILYPRN PRN RECTAL Constipation 04/14/17 20:00 05/14/17 19:59 04/14/17 21:42 Calcitonin Mellette (Miacalcin) 1 sprays DAILY NASAL 04/14/17 09:00 05/10/17 08:59 04/16/17 10:37 Clotrimazole (Lotrimin) 1 applic EVERY 12 HOURS TOPIC 04/13/17 21:00 05/09/17 14:59 04/16/17 10:36 Dextrose (Dextrose 50%) STAT PRN IV Hypoglycemia 04/13/17 23:15 05/08/17 23:14 Docusate Sodium (Colace) 100 mg Q12H GT 04/13/17 21:00 05/09/17 20:59 04/16/17 10:36 Insulin Aspart (NovoLOG) EVERY 6 HOURS SUBQ 04/13/17 18:00 05/09/17 11:29 04/16/17 06:07 Levothyroxine Sodium (Synthroid) 50 mcg ACBREAKFAST GT 04/16/17 06:30 05/16/17 06:29 04/16/17 06:06 Lorazepam (Ativan 2mg/ml 1ml) 2 mg Q4H PRN IV For Anxiety 04/14/17 15:00 04/16/17 14:59 04/15/17 00:27 Morphine Sulfate (Morphine Sulfate) 4 mg Q4H PRN IVP Moderate-Severe Pain (4-10 04/14/17 15:00 04/16/17 14:59 04/14/17 22:35 Olanzapine (ZyPREXA) 5 mg Q6H PRN NG agitation 04/13/17 12:45 05/09/17 12:44 Ondansetron HCl (Zofran) 4 mg Q6H PRN IVP Nausea & Vomiting 04/13/17 17:15 05/08/17 23:14 Pantoprazole (Protonix) 40 mg DAILY IV 04/14/17 09:00 05/09/17 08:59 04/16/17 10:36 Piperacillin Sod/ Tazobactam Sod 3.375 gm/Dextrose 55 ml @ 13.75 mls/ hr EVERY 8 HOURS IV 04/14/17 16:00 04/19/17 15:59 04/16/17 06:06 Polyethylene Glycol (Miralax) 17 gm DAILYPRN PRN GT Constipation 04/15/17 19:00 05/08/17 23:14 Promethazine HCl/ Codeine (Phenergan with Codeine) 5 ml Q4H PRN GT For Cough 04/15/17 19:00 05/09/17 10:14 Valproic Acid (Depakene) 500 mg Q12HR GT 04/13/17 21:00 05/09/17 16:29 04/16/17 10:35 Vancomycin HCl (Vanco rx to dose) 1 ea DAILY PRN MISC Per rx protocol 04/14/17 09:00 05/08/17 23:14 Vancomycin HCl 1 gm/Dextrose 275 ml @ 183.708 mls/hr Q12H IVPB 04/13/17 14:00 04/17/17 13:59 04/16/17 02:01 DARLINE DEL CASTILLO M.D. Apr 16, 2017 10:57
[2017-04-16 11:21] LABS: ANION GAP 3 mmol/L (5-15); CALCIUM 9.4 MG/DL (8.5-10.1); CARBON DIOXIDE 31 MMOL/L (21-32); CHLORIDE 108 MMOL/L (98-107); CREATININE 0.4 MG/DL (0.55-1.30); POTASSIUM 3.3 MMOL/L (3.5-5.1); SODIUM 142 MMOL/L (136-145)
[2017-04-16 12:15] VITALS: BP 144/62
--- NOTE | 2017-04-16 13:30 | General Progress Note ---
Assessment/Plan Problem List: (1) Acute respiratory failure with hypoxia and hypercapnia ICD Codes: J96.01 - Acute respiratory failure with hypoxia; J96.02 - Acute respiratory failure with hypercapnia SNOMED: 21571435, 57939018, 840938163 (2) Sepsis ICD Codes: A41.9 - Sepsis, unspecified organism SNOMED: 54216647 (3) Aspiration pneumonia ICD Codes: J69.0 - Pneumonitis due to inhalation of food and vomit SNOMED: 263856749 Qualifiers: Qualified Codes: J69.0 - Pneumonitis due to inhalation of food and vomit (4) Toxic metabolic encephalopathy ICD Codes: G92 - Toxic encephalopathy SNOMED: 111302777 (5) Hyperkalemia ICD Codes: E87.5 - Hyperkalemia SNOMED: 92933291 (6) JUJU (acute kidney injury) ICD Codes: N17.9 - Acute kidney failure, unspecified SNOMED: 69339388 (7) UTI (lower urinary tract infection) ICD Codes: N39.0 - UTI (lower urinary tract infection) SNOMED: 5549466 (8) Dementia ICD Codes: F03.90 - Dementia SNOMED: 65301738 (9) Schizophrenia ICD Codes: F20.9 - Schizophrenia, unspecified SNOMED: 84508393 (10) Seizure disorder ICD Codes: G40.909 - Epilepsy, unspecified, not intractable, without status epilepticus SNOMED: 655227637 Status: stable Assessment/Plan Now transferred to floor on 04/13/17 Pulmonary and ID consulted, appreciate rec's Extubated on 04/13/17 Cont abx per ID: vanco and zosyn (04/08-)--change to augmentin + doxy on d/c per ID F/u cultures Appreciate GI rec's s/p PEG on 04/11/17 Cont tube feeds via PEG 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 Daughter wants pt to remain full code. D/w daughter and she has decided on [facility]. CM consulted for d/c plan w/ hospice. Will need tube feeds set up prior to d/c, likely plan for d/c tomorrow DVT Prophylaxis: Eliquis Code Status: Full Hospital Classification Declaration: Based on this initial evaluation, and depending on the patient's clinical course, I anticipate that this patient will require hospitalization for 1-2 days for respiratory failure, PNA and close respiratory/hemodynamic monitoring. Disposition: Once the patient is stable to leave the hospital, I anticipate the patient will likely be discharged to the following environment: home with hospice Discussed with patient/family, nursing staff, SW/CM, pulm, ID, GI regarding clinical status, treatment course, and disposition planning. D/w daughter re plan for d/c home w/ hospice Time of note may not reflect time of encounter. Subjective Date patient seen: Apr 16, 2017 Time patient seen: 15:00 ROS Limited/Unobtainable: Yes Allergies: Coded Allergies: NO KNOWN DRUG ALLERGIES (Unverified Allergy, Unknown, 07/29/14) Subjective No acute o/n events Pt awake, alert but lethargic. Confused at baseline, A&Ox1 Limited ROS 2/2 dementia Objective Last 24 Hour Vital Signs Date Time Temp Pulse Resp B/P (MAP) Pulse Ox O2 Delivery O2 Flow Rate FiO2 04/16/17 12:15 97.3 80 19 144/62 97 Nasal Cannula 2.0 04/16/17 09:05 80 16 99 Nasal Cannula 2.0 28 04/16/17 08:53 80 18 98 Nasal Cannula 2.0 28 04/16/17 08:53 28 04/16/17 08:53 98 Nasal Cannula 2.0 28 04/16/17 08:53 Nasal Cannula 2.0 28 04/16/17 08:15 97.7 76 19 146/62 97 Nasal Cannula 2.0 04/16/17 04:00 99 Nasal Cannula 2.0 04/16/17 04:00 97.7 80 21 132/61 99 04/16/17 01:47 83 16 99 Nasal Cannula 2.0 28 04/16/17 01:32 83 16 97 Nasal Cannula 2.0 28 04/16/17 01:32 28 04/16/17 00:00 97.7 79 20 132/59 95 04/16/17 00:00 95 Nasal Cannula 2.0 04/15/17 20:00 97.7 80 20 140/70 97 04/15/17 20:00 97 Nasal Cannula 2.0 04/15/17 19:47 82 18 99 Nasal Cannula 2.0 28 04/15/17 19:38 28 04/15/17 19:38 78 18 95 Nasal Cannula 2.0 28 04/15/17 19:38 Nasal Cannula 2.0 28 04/15/17 19:38 95 Nasal Cannula 2.0 28 04/15/17 16:00 97.7 78 20 130/64 97 Intake and Output 04/16/17 04/17/17 19:00 07:00 Intake Total 13.75 ml Balance 13.75 ml IV Total 13.75 ml # Bowel Movements 2 Laboratory Tests 04/16/17 10:35: White Blood Count 9.7, Red Blood Count 3.14L, Hemoglobin 9.5L, Hematocrit 30.4L , Mean Corpuscular Volume 97, Mean Corpuscular Hemoglobin 30.2, Mean Corpuscular Hemoglobin Concent 31.2L, Red Cell Distribution Width 14.6, Platelet Count 571H, Mean Platelet Volume 5.2L, Neutrophils (%) (Auto) 46.7, Lymphocytes (%) (Auto) 34.9, Monocytes (%) (Auto) 12.2H, Eosinophils (%) (Auto) 5.4H, Basophils (%) (Auto) 0.8, Sodium Level 142, Potassium Level 3.3L, Chloride Level 108H, Carbon Dioxide Level 31, Anion Gap 3L, Blood Urea Nitrogen 10, Creatinine 0.4L, Estimat Glomerular Filtration Rate , Glucose Level 130H, Calcium Level 9.4 Height (Feet): 5 Height (Inches): 3.00 Weight (Pounds): 173 Objective General: intubated, sedated Head: normocephalic, without obvious abnormality, atraumatic Eyes: conjunctivae/corneas clear. PERRL, EOM's intact Throat: lips, mucosa, and tongue normal. MMM Neck: supple, symmetrical, trachea midline, and no JVD Lungs: +rhonchi, R>L Heart: regular rate and rhythm, S1, S2 normal, no murmur, click, rub or gallop Abdomen: soft, non-tender, non-distended, bowel sounds normal Extremities: extremities normal, atraumatic, no cyanosis or edema Pulses: 2+ and symmetric Skin: skin color, texture, turgor normal; no rashes or lesions Neurologic: Prachi Taveras M.D. Apr 16, 2017 13:30
[2017-04-16] MEDS ORDERED: AUGMENTIN 875-1 EAC1 ORAL (13:40)
[2017-04-16] MEDS ORDERED: DOXYCYCLINE MO100 MG ORAL (13:40)
--- NOTE | 2017-04-16 15:04 | Infectious Diseases Prog Note ---
Assessment/Plan Assessment/Plan ASSESSMENT AND PLAN: 1. sepsis, leukocytosis, fevers, sirs, mrsa pna, ? aspiration pna based on history, uti, respiratory failure - clinically improved, fevers and leukocytosis improved, chest x-ray improved - continue vancomycin and zosyn - can change to doxycycline plus augmentin upon discharge for 5 days - d/w Dr. Velarde 2. The patient has a history of hypertension. 3. Diabetes. 4. Hypothyroidism. 5. Hyperlipidemia. 6. Blood sugar and blood pressure control per primary. 7. Subdural hematoma. 8. Seizure history. 9. Paroxysmal supraventricular tachycardia history. 10. Anemia. 11. Deep venous thrombosis. 12. Chronic back pain. 13. Asthma. 14. Anxiety. 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 16. History of urinary tract infections. 17. History of cerebrovascular accident. 18. Aspiration risk. 19. Allergies are negative. 20. Family history is noncontributory. 21. MAR is noted. 22. Social history is negative. 23. Case was discussed with RN. 24. Continue treatment per primary consultants. 25. Skin care protocol. 26. ICU care. 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 Subjective Constitutional: Denies: fever HEENT: Denies: congestion Respiratory: Denies: shortness of breath Cardiovascular: Denies: chest pain Gastrointestinal/Abdominal: Denies: nausea, vomiting, diarrhea Genitourinary: Reports: other - + cota Psychiatric: Denies: depression Skin: Denies: rash Hematologic: Denies: bleeding Musculoskeletal: Denies: pain Allergies: Coded Allergies: NO KNOWN DRUG ALLERGIES (Unverified Allergy, Unknown, 07/29/14) Objective Vital Signs Last 24 Hour Vital Signs Date Time Temp Pulse Resp B/P (MAP) Pulse Ox O2 Delivery O2 Flow Rate FiO2 04/16/17 13:47 28 04/16/17 13:47 78 16 98 Nasal Cannula 2.0 04/16/17 12:15 97.3 80 19 144/62 97 Nasal Cannula 2.0 04/16/17 09:05 80 16 99 Nasal Cannula 2.0 04/16/17 08:53 80 18 98 Nasal Cannula 2.0 04/16/17 08:53 28 04/16/17 08:53 98 Nasal Cannula 2.0 04/16/17 08:53 Nasal Cannula 2.0 04/16/17 08:15 97.7 76 19 146/62 97 Nasal Cannula 2.0 04/16/17 04:00 99 Nasal Cannula 2.0 04/16/17 04:00 97.7 80 21 132/61 99 04/16/17 01:47 83 16 99 Nasal Cannula 2.0 28 04/16/17 01:32 83 16 97 Nasal Cannula 2.0 28 04/16/17 01:32 28 04/16/17 00:00 97.7 79 20 132/59 95 04/16/17 00:00 95 Nasal Cannula 2.0 04/15/17 20:00 97.7 80 20 140/70 97 04/15/17 20:00 97 Nasal Cannula 2.0 04/15/17 19:47 82 18 99 Nasal Cannula 2.0 28 04/15/17 19:38 28 04/15/17 19:38 78 18 95 Nasal Cannula 2.0 28 04/15/17 19:38 Nasal Cannula 2.0 28 04/15/17 19:38 95 Nasal Cannula 2.0 28 04/15/17 16:00 97.7 78 20 130/64 97 Height (Feet): 5 Height (Inches): 3.00 Weight (Pounds): 173 General Appearance: no acute distress HEENT: normocephalic, atraumatic, anicteric, mucous membranes moist, EOMI, pharynx normal, supple, no JVD Respiratory/Chest: no accessory muscle use, crackles/rales, rhonchi - bilaterally Cardiovascular: normal rate, regular rhythm, no gallop/murmur, no JVD Abdomen: normal bowel sounds, soft, non tender, no organomegaly, non distended Genitourinary: other - + cota - urine clear Extremities: no cyanosis Skin: no rash 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 Interim placement enteric nasogastric tube, tip projected at the level of the gastric fundus, proximal port beyond the gastroesophageal junction. There is increasing hazy opacity in the right lung. There is persistent right lung volume loss. There is persistent perihilar interstitial prominence and bronchial wall thickening. Left jugular central venous catheter remains. Impression: Increasing hazy consolidation of the right lung Satisfactory nasogastric intubation. Patient's nurse was notified of this finding previously Other stable findings as described Chest x-ray - 04/14 - Findings: Rotated and mediastinal contours are stable. Patient is rotated to the right. There is persistent hazy and patchy right-sided airspace opacities with slight interval decrease in interstitial opacification compared to the prior exam. No pneumothorax. No acute osseous abnormality seen. Gastrostomy tube again partially visualized. Impression: Slight interval improvement of interstitial opacification and right- sided airspace opacities. 04/12 - chest x-rat Findings: ET tube and left IJ approach central line unchanged in position. NG tube has been removed. interval gastrostomy tube placement. Heart size and mediastinal contours are stable. No significant interval change in mild interstitial opacification edema and hazy right-sided airspace opacities. There is blunting of the right costophrenic sulcus suggesting a small right pleural effusion. Is no pneumothorax. The bones are diffusely demineralized. Dense material projecting over the T12 vertebral body may be sequela from prior kyphoplasty/vertebroplasty. Degenerative changes are also noted in the shoulders. No acute osseous abnormality is seen. Impression: Removal of NG tube with interval gastrostomy tube placement. No significant interval change in appearance of the heart and lungs compared to one day prior. Microbiology Date/Time Source Procedure Growth Status 04/08/17 21:05 Blood Blood Culture - Final NO GROWTH AFTER 5 DAYS Complete 04/09/17 12:25 Sputum Gram Stain - Final Complete 04/09/17 12:25 Sputum Culture - Final Staphylococcus Aureus - Mrsa Zaria Albicans Complete 04/14/17 20:10 Urine,Clean Catch Urine Culture - Preliminary NO GROWTH AFTER 24 HOURS Resulted 04/08/17 23:50 Rectum VRE Culture - Final Enterococcus Faecium - Vre Complete Microbiology Date/Time Source Procedure Growth Status 04/14/17 20:10 Urine,Clean Catch Urine Culture - Preliminary NO GROWTH AFTER 24 HOURS Resulted Laboratory Tests Test 04/16/17 10:35 White Blood Count 9.7 K/UL (4.8-10.8) Red Blood Count 3.14 M/UL (4.20-5.40) L Hemoglobin 9.5 G/DL (12.0-16.0) L Hematocrit 30.4 % (37.0-47.0) L Mean Corpuscular Volume 97 FL (80-99) Mean Corpuscular Hemoglobin 30.2 PG (27.0-31.0) Mean Corpuscular Hemoglobin Concent 31.2 G/DL (32.0-36.0) L Red Cell Distribution Width 14.6 % (11.6-14.8) Platelet Count 571 K/UL (150-450) H Mean Platelet Volume 5.2 FL (6.5-10.1) L Neutrophils (%) (Auto) 46.7 % (45.0-75.0) Lymphocytes (%) (Auto) 34.9 % (20.0-45.0) Monocytes (%) (Auto) 12.2 % (1.0-10.0) H Eosinophils (%) (Auto) 5.4 % (0.0-3.0) H Basophils (%) (Auto) 0.8 % (0.0-2.0) Sodium Level 142 MMOL/L (136-145) Potassium Level 3.3 MMOL/L (3.5-5.1) L Chloride Level 108 MMOL/L (98-107) H Carbon Dioxide Level 31 MMOL/L (21-32) Anion Gap 3 mmol/L (5-15) L Blood Urea Nitrogen 10 mg/dL (7-18) Creatinine 0.4 MG/DL (0.55-1.30) L Estimat Glomerular Filtration Rate mL/min (>60) Glucose Level 130 MG/DL (74-106) H Calcium Level 9.4 MG/DL (8.5-10.1) Current Medications Medications (Trade) Dose Ordered Sig/Jacque Route PRN Reason Start Time Stop Time Status Last Admin Dose Admin Acetaminophen (Tylenol) 650 mg Q4H PRN ORAL Mild Pain (Pain Scale 1-3) 04/13/17 15:15 05/08/17 23:14 Acetaminophen (Tylenol) 650 mg Q4H PRN RECTAL Mild Pain (Pain Scale 1-3) 04/13/17 15:15 05/08/17 23:14 Albuterol/ Ipratropium (Albuterol/ Ipratropium) 3 ml Q6HR HHN 04/13/17 18:00 04/18/17 12:20 04/16/17 13:45 Apixaban (Eliquis) 5 mg BID GT 04/16/17 09:00 05/12/17 17:59 04/16/17 10:37 Bisacodyl (Dulcolax) 10 mg DAILYPRN PRN RECTAL Constipation 04/14/17 20:00 05/14/17 19:59 04/14/17 21:42 Calcitonin Dana (Miacalcin) 1 sprays DAILY NASAL 04/14/17 09:00 05/10/17 08:59 04/16/17 10:37 Clotrimazole (Lotrimin) 1 applic EVERY 12 HOURS TOPIC 04/13/17 21:00 05/09/17 14:59 04/16/17 10:36 Dextrose (Dextrose 50%) STAT PRN IV Hypoglycemia 04/13/17 23:15 05/08/17 23:14 Docusate Sodium (Colace) 100 mg Q12H GT 04/13/17 21:00 05/09/17 20:59 04/16/17 10:36 Insulin Aspart (NovoLOG) EVERY 6 HOURS SUBQ 04/13/17 18:00 05/09/17 11:29 04/16/17 13:16 Levothyroxine Sodium (Synthroid) 50 mcg ACBREAKFAST GT 04/16/17 06:30 05/16/17 06:29 04/16/17 06:06 Lorazepam (Ativan 2mg/ml 1ml) 2 mg Q4H PRN IV For Anxiety 04/14/17 15:00 04/16/17 14:59 04/15/17 00:27 Morphine Sulfate (Morphine Sulfate) 4 mg Q4H PRN IVP Moderate-Severe Pain (4-10 04/14/17 15:00 04/16/17 14:59 04/14/17 22:35 Olanzapine (ZyPREXA) 5 mg Q6H PRN NG agitation 04/13/17 12:45 05/09/17 12:44 Ondansetron HCl (Zofran) 4 mg Q6H PRN IVP Nausea & Vomiting 04/13/17 17:15 05/08/17 23:14 Pantoprazole (Protonix) 40 mg DAILY IV 04/14/17 09:00 05/09/17 08:59 04/16/17 10:36 Piperacillin Sod/ Tazobactam Sod 3.375 gm/Dextrose 55 ml @ 13.75 mls/ hr EVERY 8 HOURS IV 04/14/17 16:00 04/19/17 15:59 04/16/17 06:06 Polyethylene Glycol (Miralax) 17 gm DAILYPRN PRN GT Constipation 04/15/17 19:00 05/08/17 23:14 Promethazine HCl/ Codeine (Phenergan with Codeine) 5 ml Q4H PRN GT For Cough 04/15/17 19:00 05/09/17 10:14 Valproic Acid (Depakene) 500 mg Q12HR GT 04/13/17 21:00 05/09/17 16:29 04/16/17 10:35 Vancomycin HCl (Vanco rx to dose) 1 ea DAILY PRN MISC Per rx protocol 04/14/17 09:00 05/08/17 23:14 Vancomycin HCl 1 gm/Dextrose 275 ml @ 183.708 mls/hr Q12H IVPB 04/13/17 14:00 04/19/17 13:59 04/16/17 02:01 TIERA PRADO Apr 16, 2017 15:04
[2017-04-16 16:16] VITALS: BP 133/66
[2017-04-16 20:00] VITALS: BP 152/63
[2017-04-17] VITALS: BP 142/59
[2017-04-17] MEDS: Albuterol/Ipratropium 3ml neb HHN SCH ×3 (02:49→12:22)
[2017-04-17 04:00] VITALS: BP 138/45
[2017-04-17] MEDS: NovoLOG Insulin Flexpen SUBQ SCH ×2 (06:12→11:37)
[2017-04-17 07:03] LABS: BASOPHILS % (AUTO) 1.2 % (0.0-2.0); EOSINOPHILS % (AUTO) 3.8 % (0.0-3.0); LYMPHOCYTES % (AUTO) 30.9 % (20.0-45.0); MEAN CORPUSCULAR HEMOGLOBIN 31.3 PG (27.0-31.0); MEAN CORPUSCULAR HGB CONC 32.2 G/DL (32.0-36.0); MEAN CORPUSCULAR VOLUME 97 FL (80-99); MEAN PLATELET VOLUME 5.1 FL (6.5-10.1); MONOCYTES % (AUTO) 12.2 % (1.0-10.0); NEUTROPHILS % (AUTO) 51.9 % (45.0-75.0); PLATELET COUNT 607 K/UL (150-450); RED BLOOD COUNT 3.16 M/UL (4.20-5.40); RED CELL DISTRIBUTION WIDTH 14.7 % (11.6-14.8); WHITE BLOOD COUNT 9.5 K/UL (4.8-10.8)
[2017-04-17 07:22] LABS: ANION GAP 2 mmol/L (5-15); CALCIUM 9.6 MG/DL (8.5-10.1); CARBON DIOXIDE 33 MMOL/L (21-32); CHLORIDE 107 MMOL/L (98-107); CREATININE 0.5 MG/DL (0.55-1.30); POTASSIUM 3.5 MMOL/L (3.5-5.1); SODIUM 142 MMOL/L (136-145)
[2017-04-17 08:00] VITALS: BP 166/67
[2017-04-17] MEDS: Pantoprazole Inj IV SCH (09:00)
[2017-04-17] MEDS: Eliquis 2.5mg tablet GT SCH (09:44)
[2017-04-17] MEDS: Docusate 100mg/10ml Liq GT SCH (09:45)
[2017-04-17] MEDS: Valproic Acid 250mg/5ml Liquid GT SCH (10:59)
[2017-04-17 12:00] VITALS: BP 166/67
--- NOTE | 2017-04-17 12:44 | GI Progress Note ---
Assessment/Plan Problems: (1) Dementia ICD Codes: F03.90 - Dementia SNOMED: 39648886 (2) Sepsis ICD Codes: A41.9 - Sepsis, unspecified organism SNOMED: 25809540 (3) Anemia ICD Codes: D64.9 - Anemia, unspecified SNOMED: 937316255 (4) Encounter for PEG (percutaneous endoscopic gastrostomy) ICD Codes: Z43.1 - Encounter for attention to gastrostomy SNOMED: 754087993, 101211855 Status: stable Status Narrative Discussed with Dr. Morales. Assessment/Plan SUMMARY OF FINDINGS: 1. Gastritis, status post biopsy. 2. Status post successful G-tube placement. RECOMMENDATIONS: okay for DC per GI standpoint Abdominal binder. Elevate head of the bed at all times. G-tube flush. G-tube care. GTF bolus per dietary, see note. prn transfusions ppi fu labs Subjective Subjective limited Objective Last 24 Hour Vital Signs Date Time Temp Pulse Resp B/P (MAP) Pulse Ox O2 Delivery O2 Flow Rate FiO2 04/17/17 12:27 80 16 99 Nasal Cannula 2.0 28 04/17/17 12:22 78 16 98 Nasal Cannula 2.0 28 04/17/17 12:22 28 04/17/17 09:45 Nasal Cannula 2.0 28 04/17/17 09:45 76 16 98 Nasal Cannula 2.0 28 04/17/17 09:45 98 Nasal Cannula 2.0 28 04/17/17 09:45 Nasal Cannula 2.0 28 04/17/17 08:00 96.8 76 18 166/67 99 04/17/17 04:00 97.7 79 20 138/45 97 Nasal Cannula 2.0 04/17/17 02:52 28 04/17/17 02:52 76 20 98 Nasal Cannula 2.0 28 04/17/17 02:49 74 20 97 Nasal Cannula 2.0 28 04/17/17 00:00 97.7 78 20 142/59 97 04/16/17 20:07 83 18 100 Nasal Cannula 2.0 28 04/16/17 20:00 97.9 81 20 152/63 100 04/16/17 19:46 Nasal Cannula 2.0 28 04/16/17 19:46 28 04/16/17 19:46 97 Nasal Cannula 2.0 28 04/16/17 19:44 83 16 97 Nasal Cannula 2.0 28 04/16/17 16:16 98.1 75 19 133/66 99 Nasal Cannula 2.0 04/16/17 15:09 80 20 99 Nasal Cannula 2.0 28 04/16/17 13:47 28 04/16/17 13:47 78 16 98 Nasal Cannula 2.0 28 Intake and Output 04/17/17 04/18/17 19:00 07:00 Intake Total 340 ml Balance 340 ml Free Water 100 ml Tube Feeding 240 ml # Bowel Movements 2 Laboratory Tests Test 04/17/17 05:20 White Blood Count 9.5 K/UL (4.8-10.8) Red Blood Count 3.16 M/UL (4.20-5.40) L Hemoglobin 9.9 G/DL (12.0-16.0) L Hematocrit 30.7 % (37.0-47.0) L Mean Corpuscular Volume 97 FL (80-99) Mean Corpuscular Hemoglobin 31.3 PG (27.0-31.0) H Mean Corpuscular Hemoglobin Concent 32.2 G/DL (32.0-36.0) Red Cell Distribution Width 14.7 % (11.6-14.8) Platelet Count 607 K/UL (150-450) H Mean Platelet Volume 5.1 FL (6.5-10.1) L Neutrophils (%) (Auto) 51.9 % (45.0-75.0) Lymphocytes (%) (Auto) 30.9 % (20.0-45.0) Monocytes (%) (Auto) 12.2 % (1.0-10.0) H Eosinophils (%) (Auto) 3.8 % (0.0-3.0) H Basophils (%) (Auto) 1.2 % (0.0-2.0) Sodium Level 142 MMOL/L (136-145) Potassium Level 3.5 MMOL/L (3.5-5.1) Chloride Level 107 MMOL/L (98-107) Carbon Dioxide Level 33 MMOL/L (21-32) H Anion Gap 2 mmol/L (5-15) L Blood Urea Nitrogen 10 mg/dL (7-18) Creatinine 0.5 MG/DL (0.55-1.30) L Estimat Glomerular Filtration Rate mL/min (>60) Glucose Level 123 MG/DL (74-106) H Calcium Level 9.6 MG/DL (8.5-10.1) Height (Feet): 5 Height (Inches): 3.00 Weight (Pounds): 164 General Appearance: WD/WN, no apparent distress, alert Cardiovascular: normal rate Respiratory/Chest: normal breath sounds, no respiratory distress Abdominal Exam: normal bowel sounds, non tender, soft, GT site - c/d/i Extremities: non-tender Yvonne Grace N.P. Apr 17, 2017 12:44
--- NOTE | 2017-04-17 14:49 | Pulmonology Progress Note ---
Assessment/Plan Problems: (1) Acute respiratory failure (2) History of pulmonary aspiration (3) DVT/PE (4) Sepsis (5) Infection due to ESBL-producing Escherichia coli (6) Dementia (7) Schizophrenia (8) Encounter for PEG (percutaneous endoscopic gastrostomy) (9) Chronic bronchitis (10) Generalized weakness (11) Altered level of consciousness Assessment/Plan -Optimize pulmonary hygiene/mobilize as tolerated -Titrate down FiO2 to keep SaO2 > 90% -RTC and PRN HHN's -Abx per ID, F/U Cx's -DVT Px: Eliquis -TF"s as tolerated -F/U GI path -FC but dispo planning to hospice? Subjective Allergies: Coded Allergies: NO KNOWN DRUG ALLERGIES (Unverified Allergy, Unknown, 07/29/14) Subjective AFVSS, O2 needs stable, lula TF's, less cough, + SOB Objective Last 24 Hour Vital Signs Date Time Temp Pulse Resp B/P (MAP) Pulse Ox O2 Delivery O2 Flow Rate FiO2 04/17/17 12:27 80 16 99 Nasal Cannula 2.0 04/17/17 12:22 78 16 98 Nasal Cannula 2.0 04/17/17 12:22 28 04/17/17 09:45 Nasal Cannula 2.0 28 04/17/17 09:45 76 16 98 Nasal Cannula 2.0 04/17/17 09:45 98 Nasal Cannula 2.0 04/17/17 09:45 Nasal Cannula 2.0 04/17/17 08:00 96.8 76 18 166/67 99 04/17/17 04:00 97.7 79 20 138/45 97 Nasal Cannula 2.0 04/17/17 02:52 04/17/17 02:52 76 20 98 Nasal Cannula 2.0 04/17/17 02:49 74 20 97 Nasal Cannula 2.0 04/17/17 00:00 97.7 78 20 142/59 97 04/16/17 20:07 83 18 100 Nasal Cannula 2.0 04/16/17 20:00 97.9 81 20 152/63 100 04/16/17 19:46 Nasal Cannula 2.0 28 04/16/17 19:46 28 04/16/17 19:46 97 Nasal Cannula 2.0 04/16/17 19:44 83 16 97 Nasal Cannula 2.0 28 04/16/17 16:16 98.1 75 19 133/66 99 Nasal Cannula 2.0 04/16/17 15:09 80 20 99 Nasal Cannula 2.0 28 Intake and Output 04/17/17 04/18/17 19:00 07:00 Intake Total 460 ml Balance 460 ml Free Water 100 ml Tube Feeding 360 ml # Bowel Movements 2 General Appearance: WD/WN, no acute distress HEENT: normocephalic, atraumatic, mucous membranes moist Respiratory/Chest: chest wall non-tender, lungs clear, normal breath sounds Cardiovascular: normal peripheral pulses, normal rate, regular rhythm Abdomen: normal bowel sounds, soft, non tender, no organomegaly, other - GT Extremities: no cyanosis, no clubbing, no edema Microbiology Date/Time Source Procedure Growth Status 04/14/17 20:10 Urine,Clean Catch Urine Culture - Final NO GROWTH AFTER 48 HOURS Complete Laboratory Tests 04/17/17 05:20: White Blood Count 9.5, Red Blood Count 3.16L, Hemoglobin 9.9L, Hematocrit 30.7L , Mean Corpuscular Volume 97, Mean Corpuscular Hemoglobin 31.3H, Mean Corpuscular Hemoglobin Concent 32.2, Red Cell Distribution Width 14.7, Platelet Count 607H, Mean Platelet Volume 5.1L, Neutrophils (%) (Auto) 51.9, Lymphocytes (%) (Auto) 30.9, Monocytes (%) (Auto) 12.2H, Eosinophils (%) (Auto) 3.8H, Basophils (%) (Auto) 1.2, Sodium Level 142, Potassium Level 3.5, Chloride Level 107, Carbon Dioxide Level 33H, Anion Gap 2L, Blood Urea Nitrogen 10, Creatinine 0.5L, Estimat Glomerular Filtration Rate , Glucose Level 123H, Calcium Level 9.6 Current Medications Medications (Trade) Dose Ordered Sig/Jacque Route PRN Reason Start Time Stop Time Status Last Admin Dose Admin Acetaminophen (Tylenol) 650 mg Q4H PRN ORAL Mild Pain (Pain Scale 1-3) 04/13/17 15:15 05/08/17 23:14 Acetaminophen (Tylenol) 650 mg Q4H PRN RECTAL Mild Pain (Pain Scale 1-3) 04/13/17 15:15 05/08/17 23:14 Albuterol/ Ipratropium (Albuterol/ Ipratropium) 3 ml Q6HR HHN 04/13/17 18:00 04/18/17 12:20 04/17/17 12:22 Amoxicillin/ Clavulanate Potassium (Augmentin) 500 mg Q12HR ORAL 04/16/17 22:00 04/23/17 21:59 04/17/17 09:46 Apixaban (Eliquis) 5 mg BID GT 04/16/17 09:00 05/12/17 17:59 04/17/17 09:44 Bisacodyl (Dulcolax) 10 mg DAILYPRN PRN RECTAL Constipation 04/14/17 20:00 05/14/17 19:59 04/14/17 21:42 Calcitonin [place] (Miacalcin) 1 sprays DAILY NASAL 04/14/17 09:00 05/10/17 08:59 04/17/17 10:58 Clotrimazole (Lotrimin) 1 applic EVERY 12 HOURS TOPIC 04/13/17 21:00 05/09/17 14:59 04/17/17 10:58 Dextrose (Dextrose 50%) STAT PRN IV Hypoglycemia 04/13/17 23:15 05/08/17 23:14 Docusate Sodium (Colace) 100 mg Q12H GT 04/13/17 21:00 05/09/17 20:59 04/17/17 09:45 Doxycycline Monohydrate (Vibramycin) 100 mg Q12HR ORAL 04/16/17 22:00 04/23/17 21:59 04/17/17 09:45 Insulin Aspart (NovoLOG) EVERY 6 HOURS SUBQ 04/13/17 18:00 05/09/17 11:29 04/17/17 06:12 Levothyroxine Sodium (Synthroid) 50 mcg ACBREAKFAST GT 04/16/17 06:30 05/16/17 06:29 04/17/17 06:10 Olanzapine (ZyPREXA) 5 mg Q6H PRN NG agitation 04/13/17 12:45 05/09/17 12:44 Ondansetron HCl (Zofran) 4 mg Q6H PRN IVP Nausea & Vomiting 04/13/17 17:15 05/08/17 23:14 Pantoprazole (Protonix) 40 mg DAILY IV 04/14/17 09:00 05/09/17 08:59 04/16/17 10:36 Polyethylene Glycol (Miralax) 17 gm DAILYPRN PRN GT Constipation 04/15/17 19:00 05/08/17 23:14 Promethazine HCl/ Codeine (Phenergan with Codeine) 5 ml Q4H PRN GT For Cough 04/15/17 19:00 05/09/17 10:14 Valproic Acid (Depakene) 500 mg Q12HR GT 04/13/17 21:00 05/09/17 16:29 04/17/17 10:59 DARLINE DEL CASTILLO M.D. Apr 17, 2017 14:49
[2017-04-17] MEDS ORDERED: Sterile Water Irrig 1000ml IRRIG ONE (15:06)
--- NOTE | 2017-04-17 17:54 | Discharge Summary ---
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 Per daughter, pt was doing well w/ puree diet and nektar thick liquids. However, yesterday, pt noed to be more altered and with labored breathing and cough. Pt had fever to 101. Pt has had poor PO intake since yesterday. No reports of chest pain, abd pain, n/v, d/c, focal weakness/numbness. Pt at baseline is non-ambulatory and has dementia--A&O1 -2, sometimes to place but not to date or surroundings. In ED, pt noted to be tachynpeic and ABG w/ acute respiratory acidosis w/ CO2 75. Pt was urgently intubated. Pt also borderline hypotensive and given IVF boluses. CXR with concern for aspiration pneumonia. U/A also w/ pyuria. Pt given vanco, cefepime and levaquin. Consultations Infectious disease, Pulmonology Hospital Course Pt was admitted to ICU, intubated and continued on broad-spectrum antibiotics for sepsis likely 2/2 aspiration pneumonia. She was slowly weaned from ventilator and ultimately extubated on . Given recurrent aspiration pneumonia, pt underwent PEG placement on 04/11/17. Her antibiotics changed to augmentin and doxycycline prior to d/c After discussion with daughter, she agreed to hospice at home, but still preferred to keep patient full code. Discharge physical exam: General: alert, cooperative, no distress, appears stated age, confused Head: normocephalic, without obvious abnormality, atraumatic Eyes: conjunctivae/corneas clear. PERRL, EOM's intact Throat: lips, mucosa, and tongue normal. MMM Neck: supple, symmetrical, trachea midline, and no JVD Lungs: clear to auscultation bilaterally Heart: regular rate and rhythm, S1, S2 normal, no murmur, click, rub or gallop Abdomen: soft, non-tender, non-distended, bowel sounds normal; +PEG c/d/i Extremities: extremities normal, atraumatic, no cyanosis or edema Pulses: 2+ and symmetric Skin: skin color, texture, turgor normal; no rashes or lesions Neurologic: grossly normal, no focal deficits Discharge diagnoses: (1) Acute respiratory failure with hypoxia and hypercapnia ICD Codes: J96.01 - Acute respiratory failure with hypoxia; J96.02 - Acute respiratory failure with hypercapnia SNOMED: 26625011, 53103360, 375541755 (2) Sepsis ICD Codes: A41.9 - Sepsis, unspecified organism SNOMED: 84517036 (3) Aspiration pneumonia ICD Codes: J69.0 - Pneumonitis due to inhalation of food and vomit SNOMED: 394603520 Qualifiers: Qualified Codes: J69.0 - Pneumonitis due to inhalation of food and vomit (4) Toxic metabolic encephalopathy ICD Codes: G92 - Toxic encephalopathy SNOMED: 726085795 (5) Hyperkalemia ICD Codes: E87.5 - Hyperkalemia SNOMED: 57511456 (6) JUJU (acute kidney injury) ICD Codes: N17.9 - Acute kidney failure, unspecified SNOMED: 11040146 (7) UTI (lower urinary tract infection) ICD Codes: N39.0 - UTI (lower urinary tract infection) SNOMED: 7424069 (8) Dementia ICD Codes: F03.90 - Dementia SNOMED: 70350903 (9) Schizophrenia ICD Codes: F20.9 - Schizophrenia, unspecified SNOMED: 78478922 (10) Seizure disorder ICD Codes: G40.909 - Epilepsy, unspecified, not intractable, without status epilepticus SNOMED: 625107937 Discharge Medications New Medications: Amoxicillin/Potassium Clav 875-125* (Augmentin 875-125 Tablet*) 1 Each Tablet 1 TAB ORAL TWICE A DAY for 5 Days, #10 TAB Doxycycline Monohydrate* (Doxycycline Monohydrate*) 100 Mg Capsule 100 MG ORAL Q12H for 5 Days, #10 CAP 0 Refills Continued Medications: Acetaminophen (Acetaminophen) 650 Mg/20.3 Ml Soln 650 MG ORAL Q6H PRN for Prn Headache/Temp > 101, ML 0 Refills Acidophilus/[place]gar[place] (Floranex Tablet) 1 Each Tablet 1 EACH PO BID, TAB Apixaban (Eliquis) 5 Mg Tablet 5 MG PO BID, TAB Bisacodyl* (Dulcolax*) 5 Mg Tablet.dr 10 MG RECTAL ONCE, #4 TAB 0 Refills Calcitonin,Prather,Synthetic (Calcitonin-Prather) 3.7 Ml [place].pump 3.7 ML NS DAILY Ergocalciferol (Vitamin D2)* (Vitamin D*) 50,000 Unit Capsule 80554 UNIT ORAL ONCE A WEEK, CAP Ferrous Sulfate* (Ferrous Sulfate*) 325 Mg Tablet 325 MG ORAL DAILY, #30 TAB 0 Refills Fluvoxamine Maleate (Fluvoxamine Maleate) 50 Mg Tab 50 MG ORAL BID, #10 TAB 0 Refills Hydrocodone Bit/Acetaminophen 10-325* ([place] 10-325*) 1 Each Tablet 1 TAB ORAL, TAB 0 Refills PRN PAIN Lactobacillus Cmb#7/Fos/Inulin (Probiotic Complex Tablet) 1 Each Tablet Unknown Dose PO DAILY, TAB Levothyroxine Sodium* (Levothyroxine Sodium*) 50 Mcg Tablet 50 MCG ORAL DAILY, TAB Take in the morning on an empty stomach, at least 30 minutes before food. Lidocaine (Lidocaine) 700 Mg Adh..patch 1400 MG TP DAILY, PATCH Melatonin (Melatonin) 1 Mg Tab.subl 1 MG PO BEDTIME PRN for Insomnia, TAB Memantine Hcl* (Namenda*) 10 Mg Tablet 10 MG ORAL TWICE A DAY, TAB Memantine Hcl* (Namenda*) 10 Mg Tablet 10 MG ORAL TWICE A DAY, TAB Multivitamin With Minerals (Multivitamins With Minerals*) 1 Each Tablet 1 TAB ORAL DAILY, TAB Olanzapine* (Zyprexa*) 5 Mg Tablet 5 MG ORAL HS, TAB Olanzapine* (Zyprexa*) 10 Mg Tablet 10 MG ORAL DAILY, #30 TAB 0 Refills [place]-3 Fatty Acids/Fish Oil (Fish Oil 1,000 Mg Capsule) 1 Each Capsule 1 CAP ORAL BID, #30 CAP 0 Refills Pantoprazole* (Pantoprazole*) 40 Mg Tablet.dr 40 MG ORAL DAILY, TAB Ranitidine Hcl* (Zantac*) 150 Mg Tablet 150 MG ORAL TWICE A DAY, TAB Simvastatin (Zocor) 20 Mg Tablet 20 MG ORAL BEDTIME, TAB Solifenacin Succinate (Vesicare*) 10 Mg Tablet 10 MG ORAL HS, TAB Tamsulosin Hcl (Tamsulosin Hcl*) 0.4 Mg Cap.er.24h 0.4 MG ORAL DAILY, CAP Discontinued Medications: Acyclovir* (Zovirax*) 800 Mg Tablet 800 MG ORAL Q8HR for 7 Days, TAB Amiodarone Hcl* (Amiodarone Hcl*) 400 Mg Tablet Unknown Dose ORAL EVERY 12 HOURS, TAB Aspirin* (Ecotrin*) 325 Mg Tablet.dr 81 MG ORAL DAILY, TAB Baclofen* (Baclofen*) 10 Mg Tablet 10 MG ORAL, TAB Ca Carbonate/Vitamin D3/Vit K (Calcium + D Soft Chewable Tab) 1 Each Tab.chew 1 EACH PO DAILY, TAB Divalproex Sodium (Depakote) 500 Mg Tablet.dr 500 MG ORAL EVERY 12 HOURS, #60 TAB Divalproex Sodium (Depakote Sprinkle) 125 Mg Cap.sprink 125 MG PO BID, CAP Donepezil Hcl* (Aricept*) 10 Mg Tablet 10 MG ORAL DAILY, TAB Lorazepam* (Ativan*) 2 Mg Tablet 2 MG ORAL THREE TIMES A DAY PRN for Agitation, TAB Lorazepam* (Lorazepam*) 1 Mg Tablet 1 MG ORAL THREE TIMES A DAY, TAB Metoprolol Succinate* (Toprol Xl*) 100 Mg Tabcr 200 MG ORAL DAILY for 30 Days, TAB Nitrofurantoin Macrocrystal (Nitrofurantoin) 100 Mg Capsule 100 MG PO BID for 30 Days, CAP Nitrofurantoin Monohyd/M-Cryst (Nitrofurantoin [place]-Mcr 100 mg) 100 Mg Cap 100 MG ORAL BID for 5 Days, CAP Nitrofurantoin Monohyd/M-Cryst* (Macrobid 100 Mg*) 100 Mg Capsule Unknown Dose ORAL EVERY 12 HOURS, CAP Omeprazole Magnesium (Prilosec Otc) 20 Mg Tablet.dr 40 MG ORAL DAILY, TAB Temazepam* (Restoril*) 7.5 Mg Capsule 7.5 MG ORAL BEDTIME, #10 CAP 0 Refills Discharge Condition Upon Discharge: stable Discharge Disposition Patient was discharged to Home with Hospice (50) Discharge Diagnoses: Prachi Mejia M.D. Apr 17, 2017 17:54
--- NOTE | 2017-04-18 10:24 | Diagnostic Imaging Report ---
Indication: Shortness of breath Technique: One view of the chest Comparison: . 2016 Findings: Right lung volume loss, infiltrate, and small pleural effusion are unchanged. Mild generalized interstitial prominence is unchanged. Left pleural space is clear. The heart size is upper limits normal. Again demonstrated is evidence of prior vertebral augmentation. Gastrostomy again demonstrated Impression: Unchanged, over 3 days, findings as above.
--- NOTE | 2017-04-26 00:14 | Diagnostic Imaging Report ---
APPROVED REPORT CPT Code: 33513 Present Symptoms Shortness of breath RIGHT LEG: Venous imaging reveals recanalized chronic thrombus in the common femoral, superficial femoral and popliteal veins. Imaging reveals patency of the common femoral, superficial femoral, popliteal and calf veins. The greater saphenous vein is also within normal limits. Doppler indicates normal spontaneous flow within these segments. The calf veins were not well visualized. LEFT LEG: Venous imaging reveals recanalized chronic thrombus in the common femoral, superficial femoral and popliteal veins. Imaging reveals patency of the common femoral, superficial femoral, popliteal and calf veins. The greater saphenous vein is also within normal limits. Doppler indicates normal spontaneous flow within these segments. The distal superficial femoral and calf veins were not well visualized. RADHA Myers was informed of abnormal results at 18:30 hrs. No evidence of acute DVT.
== END 2017-04-17 15:07 | disposition hospice, home (50) | DRG 871 ==
LOC: EDBD 20:39 → EDBEDREQSVC 21:17 → EDBEDREQ 21:18 → EMR 21:48 → EDBEDREQ 22:37 → ICU 22:44 → 4E 04-13 13:06
DX: A41.9 Sepsis, unspecified organism (principal); J69.0 Pneumonitis due to inhalation of food and vomit; G92 Toxic encephalopathy; N17.9 Acute kidney failure, unspecified; J96.02 Acute respiratory failure with hypercapnia; J96.01 Acute respiratory failure with hypoxia; E11.9 Type 2 diabetes mellitus without complications; D64.9 Anemia, unspecified; N39.0 Urinary tract infection, site not specified; G30.9 Alzheimer's disease, unspecified; F02.80 Dementia in other diseases classified elsewhere, unspecified severity, without behavioral disturbance, psychotic disturbance, mood disturbance, and anxiety; F20.9 Schizophrenia, unspecified; G40.909 Epilepsy, unspecified, not intractable, without status epilepticus; Z86.711 Personal history of pulmonary embolism; Z79.01 Long term (current) use of anticoagulants; Z86.718 Personal history of other venous thrombosis and embolism; E87.5 Hyperkalemia; I27.20 Pulmonary hypertension, unspecified; M54.9 Dorsalgia, unspecified; I10 Essential (primary) hypertension; J42 Unspecified chronic bronchitis; K29.40 Chronic atrophic gastritis without bleeding
CPT/HCPCS: 31500; 36415; 36600; 71010; 74000; 80048; 80053; 80202; 80307; 81003; 82378; 82550; 82607; 82746; 82803; 82962; 83540; 83550; 83605; 83615; 83735; 83880; 84100; 84484; 85007; 85025; 85044; 85060; 85610; 85651; 85730; 87040; 87070; 87081; 87086; 87181; 87205; 93005; 93970; 94002; 94003; 94150; 94640; 94664; 94760; J1815; J2250; J2405; J7620; J8499

== ENCOUNTER 2017-05-09 18:16 | Inpatient (IN) | payer MEDICARE, MEDICAID ==
[~2017-05-09] VITALS: Ht 162.6 cm; Wt 86.2 kg
[2017-05-09] VITALS (7 sets, daily range): BP systolic 83–118; BP diastolic 15–43
[~2017-05-09 18:16] MED LIST changes: +AMIODARONE HCL400 M1 ORAL; +ATIVAN2 MG/1 ML PO; +AUGMENTIN 875-1 EAC1 ORAL; +BACLOFEN10 MG ORAL; +DEPAKOTE SPRIN125 MG PO; +DOXYCYCLINE MO100 MG ORAL; +ELIQUIS5 MG PO; +Etomidate 40mg/20ml Inj IV ONE; +NITROFURANTOIN100 M2 ORAL; +NORCO 10-325 T1 EACH ORAL; +PRILOSEC OTC20 MG ORAL; +TAMSULOSIN HCL0.4 MG ORAL; +ZYPREXA10 MG ORAL; +Zemuron 50mg/5ml Inj IV ONE
[2017-05-09] MEDS ORDERED: NITROFURANTOIN100 M2 ORAL (18:25)
[2017-05-09] MEDS ORDERED: ZYPREXA10 MG ORAL (18:25)
[2017-05-09] MEDS ORDERED: BACLOFEN10 MG ORAL (18:25)
[2017-05-09] MEDS ORDERED: ACIDOPHILUS-PE1 EACH PO (18:25)
[2017-05-09] MEDS ORDERED: AMBIEN10 M1 ORAL (18:25)
[2017-05-09] MEDS ORDERED: CARDURA1 MG ORAL (18:25)
[2017-05-09] MEDS ORDERED: DEPAKOTE250 MG PO (18:25)
[2017-05-09] MEDS ORDERED: NORCO 10-325 T1 EACH ORAL (18:25)
[2017-05-09] MEDS ORDERED: XARELTO10 MG ORAL (18:25)
[2017-05-09] MEDS ORDERED: PROTONIX40 MG ORAL (18:25)
[2017-05-09] MEDS ORDERED: ACIDOPHILUS1 EAC6 PO (18:25)
[2017-05-09 19:54] LABS: APPEARANCE,URINE CLEAR; BILIRUBIN, URINE 1+ (NEGATIVE); COLOR,URINE BROWN; GLUCOSE, URINE (UA) NEGATIVE (NEGATIVE); KETONES,URINE 2+ (NEGATIVE); LEUKOCYTE ESTERASE ,URINE 2+ (NEGATIVE); NITRITE,URINE POSITIVE (NEGATIVE); PH,URINE 5 (4.5-8.0); PROTEIN,URINE 1+ (NEGATIVE); UROBILINOGEN,URINE 1 MG/DL (0.0-1.0)
[2017-05-09 20:34] LABS: ANION GAP 12 mmol/L (5-15); BLOOD UREA NITROGEN 92 mg/dL (7-18); CARBON DIOXIDE 28 MMOL/L (21-32); CHLORIDE 91 MMOL/L (98-107); CREATININE 2.5 MG/DL (0.55-1.30); INR 1.1 (0.9-1.1); POTASSIUM 5.2 MMOL/L (3.5-5.1); SODIUM 131 MMOL/L (136-145)
[2017-05-09 20:35] LABS: HEMATOCRIT 32.5 % (37.0-47.0); HEMOGLOBIN 9.7 G/DL (12.0-16.0); MEAN CORPUSCULAR VOLUME 99 FL (80-99); PLATELET COUNT 370 K/UL (150-450); RED BLOOD COUNT 3.28 M/UL (4.20-5.40)
[2017-05-09 20:42] LABS: WHITE BLOOD COUNT 26.9 K/UL (4.8-10.8)
[2017-05-09 20:48] LABS: ALANINE AMINOTRANSFERASE 8 U/L (12-78); ALBUMIN/GLOBULIN RATIO 0.5 (1.0-2.7); ALKALINE PHOSPHATASE 64 U/L (46-116); ASPARTATE AMINO TRANSFERASE 16 U/L (15-37); BILIRUBIN,TOTAL 0.4 MG/DL (0.2-1.0); CKMB 1.1 NG/ML (0.0-3.6); CREATINE KINASE 31 U/L (26-308)
[2017-05-09] MEDS ORDERED: Piperacillin/Tazobactam 3.375 GM in NS 110 ML IVPB ONE (21:00)
[2017-05-09] MEDS ORDERED: Azithromycin 500 MG in NS 275 ML IV ONE (21:00)
[2017-05-09] MEDS ORDERED: Zosyn 3.375gm inj ONE (21:07)
[2017-05-09] MEDS ORDERED: NS 110ml ONE (21:07)
[2017-05-09] MEDS ORDERED: Azithromycin 500mg Inj IV ONE (21:30)
[2017-05-09] MEDS ORDERED: NS 275 ML ONE ×4 (21:31→23:38)
[2017-05-09] MEDS ORDERED: Levophed 4mg/4mL Inj IV ONE ×2 (21:57→22:08)
--- NOTE | 2017-05-09 23:05 | Emergency Room Report ---
History of Present Illness General Chief Complaint: Altered Level of Consciousness Source: EMS Present Illness HPI 86-year-old female presents to ED or altered level of consciousness. Per EMS patient was found altered today. Daughter is not at bedside; she left note stating that they were giving her feedings and overfed the patient and she likely aspirated. Patient is altered upon arrival. Patient is unable to provide any additional history at this time. Patient is hypotensive. No other aggravating relieving factors. Denies any other associated symptom Allergies: Coded Allergies: NO KNOWN DRUG ALLERGIES (Unverified Allergy, Unknown, 07/29/14) Patient History Past Medical History: DM, HTN, asthma Past Surgical History: none Pertinent Family History: none Social History: Denies: smoking, alcohol use, drug use Now: No Immunizations: UTD Reviewed Nursing Documentation: PMH: Agreed, PSxH: Agreed Nursing Documentation-PMH Past Medical History: No History, Except For Hx Cardiac Problems: Yes Hx Hypertension: Yes - Pulmonary Hx Asthma: Yes Hx COPD: No - PNEUMONIA Hx Diabetes: Yes Hx Cancer: No Hx Gastrointestinal Problems: Yes History Of Psychiatric Problem: Yes - ALZHEIMER Hx Neurological Problems: Yes Hx Cerebrovascular Accident: Yes Hx Dementia: Yes Hx Alzheimer's Disease: Yes Hx Seizures: Yes Hx Memory Loss: Yes Hx Concentration Difficulty: Yes Review of Systems All Other Systems: limited Physical Exam Vital Signs Date Time Temp Pulse Resp B/P (MAP) Pulse Ox O2 Delivery O2 Flow Rate FiO2 05/09/17 18:10 52 20 84/48 95 Nasal Cannula 3.0 05/09/17 18:20 94.4 Sp02 EP Interpretation: reviewed, normal General Appearance: lethargic Head: normocephalic Eyes: bilateral eye normal inspection, bilateral eye PERRL ENT: normal ENT inspection Neck: normal inspection Respiratory: chest non-tender, decreased breath sounds, crackles, speaking full sentences Cardiovascular #1: regular rate, rhythm, no edema Gastrointestinal: normal inspection Rectal: deferred Genitourinary: no CVA tenderness Musculoskeletal: normal inspection Neurologic: other - altered Psychiatric: other - altered Skin: normal inspection Lymphatic: normal inspection Procedures Critical Care Time Critical Care Time i. I feel this is a highly complex case requiring extensive working including EKG/Rhythm strip, Xray/CT/US, Blood/urine lab work, repeat exams while in ED, and administration of strong opiates/narcotics for pain control, admission to hospital or close patient follow up. Total time: 30 min bedside evaluation and treatment excludes procedures (EKG). Reason for critical care: Altered, hypotensive Possible complications: hypotension, hypertension, NJ, shock, arrhythmias, metabolic acidosis, end organ damage, respiratory failure. Interventions: Labs, IV fluids, EKG, chest x-ray, CT head. Central line. Antibiotic. Pressors Course: Patient brought with altered level of consciousness. Chest x-ray shows likely aspiration pneumonia. Significant leukocytosis. UTI noted. CT head unremarkable. Despite aggressive fluid resuscitation patient remained hypotensive. Right central line placed. Pressors started. Consultations: nursing staff, EMS, family Performed by: Dr Jang Tolerated well condition = critical j. because of unstable vital signs this patient had a condition that could potentially threaten life or limb. I feel this is a critical patient who required my full attention while patient was considered critical. Total Critical Care Time excluding procedures was greater than 35 minutes Medical Decision Making Diagnostic Impression: Primary Impression: Septic shock Additional Impressions: UTI (lower urinary tract infection) Aspiration pneumonia Qualified Codes: J69.0 - Pneumonitis due to inhalation of food and vomit Renal insufficiency ER Course Hospital Course 86-year-old female presents ED altered, history of aspiration. Hypotensive Differential diagnoses include: Pneumonia, UTI, sepsis, dehydration, NJ/ unstable angina Clinical course Patient placed on stretcher. On clinical research monitor with stable vitals are ED course. After initial history and physical, I ordered labs, IV fluids, EKG, chest x-ray, blood cultures, UA. CT Head IV access obtained. I placed a right femoral central line Labs - BUN/Cr elevated, significant leukocytosis, troponins negative, lactate ok , UA grossly positive for UTI EKG - NSR, no acute ischemic changes interpreted by me CXR - aspiration pneumonia on the right CT head unremarkable Given broad-spectrum antibiotics. Despite rest fluid resuscitation patient remained hypotensive. Pressors started - levophed Case discussed with Dr Wasserman and they agreed to admit patient to their service for further care and support I feel this is a highly complex case requiring extensive working including EKG/ Rhythm strip, Xray/CT/US, Blood/urine lab work, repeat exams while in ED, and administration of strong opiates/narcotics for pain control, admission to hospital or close patient follow up. Diagnosis - Septic shock, UTI, aspiration pneumonia, renal insufficiency Patient admitted to ICU in critical condition Labs Test 05/09/17 19:05 05/09/17 20:10 Urine Color Brown Urine Appearance Clear Urine pH 5 (4.5-8.0) Urine Specific [place] 1.020 (1.005-1.035) Urine Protein 1+ (NEGATIVE) Urine Glucose (UA) Negative (NEGATIVE) Urine Ketones 2+ (NEGATIVE) Urine Occult Blood Negative (NEGATIVE) Urine Nitrite Positive (NEGATIVE) Urine Bilirubin 1+ (NEGATIVE) Urine Ictotest Negative Urine Urobilinogen 1 MG/DL (0.0-1.0) Urine Leukocyte Esterase 2+ (NEGATIVE) Urine RBC 0-2 /HPF (0 - 2) Urine WBC 2-4 /HPF (0 - 2) Urine Squamous Epithelial Cells Few /LPF (NONE/OCC) Urine Amorphous Sediment Few /LPF (NONE) Urine Bacteria Few /HPF (NONE) Urine Yeast Few /HPF (NONE) White Blood Count 26.9 K/UL (4.8-10.8) Red Blood Count 3.28 M/UL (4.20-5.40) Hemoglobin 9.7 G/DL (12.0-16.0) Hematocrit 32.5 % (37.0-47.0) Mean Corpuscular Volume 99 FL (80-99) Mean Corpuscular Hemoglobin 29.5 PG (27.0-31.0) Mean Corpuscular Hemoglobin Concent 29.8 G/DL (32.0-36.0) Red Cell Distribution Width 14.0 % (11.6-14.8) Platelet Count 370 K/UL (150-450) Mean Platelet Volume 4.9 FL (6.5-10.1) Neutrophils (%) (Auto) % (45.0-75.0) Lymphocytes (%) (Auto) % (20.0-45.0) Monocytes (%) (Auto) % (1.0-10.0) Eosinophils (%) (Auto) % (0.0-3.0) Basophils (%) (Auto) % (0.0-2.0) Differential Total Cells Counted 100 Neutrophils % (Manual) 77 % (45-75) Lymphocytes % (Manual) 6 % (20-45) Monocytes % (Manual) 7 % (1-10) Eosinophils % (Manual) 1 % (0-3) Basophils % (Manual) 0 % (0-2) Band Neutrophils 9 % (0-8) Platelet Estimate Adequate Platelet Morphology Normal Hypochromasia 1+ Anisocytosis 1+ Prothrombin Time 11.5 SEC (9.30-11.50) Prothromb Time International Ratio 1.1 (0.9-1.1) Activated Partial Thromboplast Time 37 SEC (23-33) Sodium Level 131 MMOL/L (136-145) Potassium Level 5.2 MMOL/L (3.5-5.1) Chloride Level 91 MMOL/L (98-107) Carbon Dioxide Level 28 MMOL/L (21-32) Anion Gap 12 mmol/L (5-15) Blood Urea Nitrogen 92 mg/dL (7-18) Creatinine 2.5 MG/DL (0.55-1.30) Estimat Glomerular Filtration Rate mL/min (>60) Glucose Level 72 MG/DL (74-106) Lactic Acid Level 1.00 mmol/L (0.66-2.22) Calcium Level 11.0 MG/DL (8.5-10.1) Total Bilirubin 0.4 MG/DL (0.2-1.0) Aspartate Amino Transf (AST/SGOT) 16 U/L (15-37) Alanine Aminotransferase (ALT/SGPT) 8 U/L (12-78) Alkaline Phosphatase 64 U/L (46-116) Total Creatine Kinase 31 U/L (26-308) Creatine Kinase MB 1.1 NG/ML (0.0-3.6) Creatine Kinase MB Relative Index 3.5 Troponin I 0.000 ng/mL (0.000-0.056) Pro-B-Type Natriuretic Peptide 3816 pg/mL (0-125) Total Protein 6.2 G/DL (6.4-8.2) Albumin 2.0 G/DL (3.4-5.0) Globulin 4.2 g/dL Albumin/Globulin Ratio 0.5 (1.0-2.7) EKG Diagnostic Results Rate: normal Rhythm: NSR ST Segments: no acute changes ASA given to the pt in ED: No Rhythm Strip Diag. Results EP Interpretation: yes Rhythm: NSR, no PVC's, no ectopy Chest X-Ray Diagnostic Results Chest X-Ray Diagnostic Results : Chest X-Ray Ordered: Yes # of Views/Limited/Complete: 1 View Indication: Shortness of Breath EP Interpretation: Yes Interpretation: no pneumothorax, no acute cardiopulmonary disease, other - R aspiration pneumonia Impression: Other - R aspiration pneumonia Electronically Signed by: Electronically signed by Ken Jang MD CT/MRI/US Diagnostic Results CT/MRI/US Diagnostic Results : Imaging Test Ordered: CT head Impression no acute process Last Vital Signs Date Time Temp Pulse Resp B/P (MAP) Pulse Ox O2 Delivery O2 Flow Rate FiO2 05/09/17 22:27 92/33 05/09/17 20:00 94.7 85 15 96 Nasal Cannula 3.0 Status: improved Disposition: ADMITTED INPATIENT Condition: Critical Referrals: NOT CHOSEN IPA/,REFERRING (PCP) KEN JANG M.D. May 09, 2017 23:05
[2017-05-09] MEDS ORDERED: Vancomycin 1 GM in NS 275 ML IV ONE (23:30)
--- NOTE | 2017-05-09 23:32 | Emergency Room Report ---
History of Present Illness General Chief Complaint: Altered Level of Consciousness Source: EMS Present Illness Allergies: Coded Allergies: NO KNOWN DRUG ALLERGIES (Unverified Allergy, Unknown, 07/29/14) Patient History Now: No Nursing Documentation-[facility] Past Medical History: No History, Except For Hx Cardiac Problems: Yes Hx Hypertension: Yes - Pulmonary Hx Asthma: Yes Hx COPD: No - PNEUMONIA Hx Diabetes: Yes Hx Cancer: No Hx Gastrointestinal Problems: Yes History Of Psychiatric Problem: Yes - ALZHEIMER Hx Neurological Problems: Yes Hx Cerebrovascular Accident: Yes Hx Dementia: Yes Hx Alzheimer's Disease: Yes Hx Seizures: Yes Hx Memory Loss: Yes Hx Concentration Difficulty: Yes Physical Exam Vital Signs Date Time Temp Pulse Resp B/P (MAP) Pulse Ox O2 Delivery O2 Flow Rate FiO2 05/09/17 18:10 52 20 84/48 95 Nasal Cannula 3.0 05/09/17 18:20 94.4 Procedures Intubation Intubation : Consent: Emergent Intubation Method: orotracheal Tube Size (cm): 7.5 Medications: Etomidate, Rocuronium Breath Sounds after Intubation: equal Post Intubation Xray: Yes Attempts: One Patient Tolerated: Well Complications: None Medical Decision Making Diagnostic Impression: Primary Impression: Septic shock Additional Impressions: UTI (lower urinary tract infection) Aspiration pneumonia Qualified Codes: J69.0 - Pneumonitis due to inhalation of food and vomit Renal insufficiency Last Vital Signs Date Time Temp Pulse Resp B/P (MAP) Pulse Ox O2 Delivery O2 Flow Rate FiO2 05/09/17 23:00 89 16 98/39 99 Non-Rebreather 15.0 05/09/17 20:00 94.7 Disposition: ADMITTED INPATIENT Condition: Critical Referrals: NOT CHOSEN RUDY/,REFERRING (PCP) FABI WHITEHEAD M.D. May 09, 2017 23:32
[2017-05-09] MEDS ORDERED: Vancomycin 1gm inj IVPB ONE (23:37)
[2017-05-10] VITALS (74 sets, daily range): BP systolic 60–132; BP diastolic 20–83
[2017-05-10] MEDS ORDERED: Miralax 17gm pkt ORAL PRN (01:45)
[2017-05-10] MEDS ORDERED: Piperacillin/Tazobactam 2.25 GM in NS 110 ML IVPB SCH (01:45)
[2017-05-10] MEDS ORDERED: Acetaminophen 650 MG SUPP RECTAL PRN ×2 (01:45)
[2017-05-10] MEDS ORDERED: Ipratropium 0.02% Inh Soln 2.5ml UD HHN PRN (01:45)
[2017-05-10 05:28] LABS: HEMOGLOBIN 10.4 G/DL (12.0-16.0); MEAN CORPUSCULAR VOLUME 98 FL (80-99); PLATELET COUNT 474 K/UL (150-450); RED BLOOD COUNT 3.38 M/UL (4.20-5.40); RED CELL DISTRIBUTION WIDTH 14.3 % (11.6-14.8)
[2017-05-10 05:33] LABS: WHITE BLOOD COUNT 29.6 K/UL (4.8-10.8)
[2017-05-10 05:40] LABS: ANION GAP 17 mmol/L (5-15); BLOOD UREA NITROGEN 78 mg/dL (7-18); CALCIUM 10.2 MG/DL (8.5-10.1); CARBON DIOXIDE 21 MMOL/L (21-32); CHLORIDE 97 MMOL/L (98-107); CREATININE 1.8 MG/DL (0.55-1.30); POTASSIUM 4.6 MMOL/L (3.5-5.1); SODIUM 135 MMOL/L (136-145)
[2017-05-10 05:43] LABS: PHOSPHORUS 4.8 MG/DL (2.5-4.9)
[2017-05-10] MEDS ORDERED: Levophed 4mg/4mL Inj IV ONE (06:04)
[2017-05-10] MEDS: Ipratropium 0.02% Inh Soln 2.5ml UD HHN SCH ×5 (06:58→23:00)
[2017-05-10] MEDS: Docusate 100mg cap ORAL SCH ×2 (08:34→21:03)
[2017-05-10] MEDS: Zosyn 3.375gm q12h **Extended infusion IVPB SCH ×4 (08:35→20:25)
[2017-05-10] MEDS: Heparin 5000 units/ml inj SUBQ SCH ×2 (08:40→21:15)
[2017-05-10] MEDS ORDERED: Pantoprazole Inj IV SCH (09:00)
--- NOTE | 2017-05-10 09:44 | Diagnostic Imaging Report ---
Indication: Altered mental status Technique: Contiguous 5 mm thick transaxial imaging of the head obtained in a Siemens Sensation [address] scanner. Soft tissue and bone windows generated. Automatic Exposure Control was utilized. Total Dose length Product (DLP): 1351.[address] Dose Index Volume (CTDIvol): 70.38 mGy Comparison: November 29, 2014 Findings: There is moderate prominence of the ventricles, basal cisterns, and cerebral sulci consistent with atrophy. Moderate, nonspecific, white matter hypoattenuation is noted throughout the brain consistent with chronic small vessel disease. There is no midline shift, edema, acute hemorrhage, mass effect, or abnormal extra-axial fluid collections. Bones and extra osseous soft tissues are unremarkable. Impression: No acute intracranial bleed, mass effect or edema. Moderate atrophy of the brain. Evidence of chronic small vessel disease involving white matter tracts. [facility] has communicated the preliminary results to the Emergency Department. Their findings are largely concordant with this report. The CT scanner at [facility] is accredited by the [employer] and the scans are performed using dose optimization techniques as appropriate to a performed exam including Automatic Exposure control.
--- NOTE | 2017-05-10 10:38 | Diagnostic Imaging Report ---
Indication: Intubation Comparison: 05/09/2017 at 20:07 A single view chest radiograph was obtained. Findings: Endotracheal tube is in good position a few centimeters above the sara as of 23:40. No change otherwise. IMPRESSION: Endotracheal tube in good position
--- NOTE | 2017-05-10 11:10 | History and Physical ---
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 Pt w/ recent admission n 03/2017 for similar symptoms requirig intubation, PEG placement and pt then sucessfully extubated. She was discharged home w/ hospice. Daughter has decided to take pt off hospice. Per EMS patient was found altered. Per daughter, she was unable to arouse patient so paramedics were called. Daughter thinks pt was overfed w/ tube feedings and likely aspirated. Pt found to be altered with acute respiratory acidosis requiring intubation. She was also hypotensive and w/ leukocytosis to 29K concerning for sepsis, started on IV abx and IVFs. Pt admitted to ICU, intubated, sedated on IV abx, pressors.. Allergies: Coded Allergies: NO KNOWN DRUG ALLERGIES (Unverified Allergy, Unknown, 07/29/14) Medication History Scheduled Acidophilus/[place]gar[place] (Floranex Tablet), 1 EACH PO BID, (Reported) Amoxicillin/Potassium Clav 875-125* (Augmentin 875-125 Tablet*), 1 TAB ORAL TWICE A DAY Apixaban (Eliquis), 5 MG PO BID, (Reported) Baclofen* (Baclofen*), 10 MG ORAL THREE TIMES A DAY, (Reported) Bisacodyl* (Dulcolax*), 10 MG RECTAL ONCE, (Reported) Calcitonin,[place],Synthetic (Calcitonin-[place]), 3.7 ML NS DAILY, (Reported) Divalproex Sodium* (Depakote*), 500 MG PO Q12HR, (Reported) Docusate Sodium* (Docusate Sodium*), 100 MG ORAL TWICE A DAY, (Reported) Doxazosin Mesylate* (Cardura*), 2 MG ORAL DAILY, (Reported) Doxycycline Monohydrate* (Doxycycline Monohydrate*), 100 MG ORAL Q12H Ergocalciferol (Vitamin D2)* (Vitamin D*), 50,000 UNIT ORAL ONCE A WEEK, ( Reported) Ferrous Sulfate* (Ferrous Sulfate*), 325 MG ORAL DAILY, (Reported) Fluvoxamine Maleate (Fluvoxamine Maleate), 50 MG ORAL BID, (Reported) Lactobacillus Cmb#7/Fos/Inulin (Probiotic Complex Tablet), Unknown Dose PO DAILY , (Reported) Levothyroxine Sodium* (Levothyroxine Sodium*), 50 MCG ORAL DAILY, (Reported) Lidocaine (Lidocaine), 1,400 MG TP DAILY, (Reported) Memantine Hcl* (Namenda*), 10 MG ORAL TWICE A DAY, (Reported) Memantine Hcl* (Namenda*), 10 MG ORAL TWICE A DAY, (Reported) Multivitamin With Minerals (Multivitamins With Minerals*), 1 TAB ORAL DAILY, ( Reported) Nitrofurantoin Monohyd/M-Cryst* (Macrobid 100 Mg*), 100 MG ORAL DAILY, (Reported ) Olanzapine* (Zyprexa*), 5 MG ORAL HS, (Reported) Olanzapine* (Zyprexa*), 10 MG ORAL DAILY, (Reported) Olanzapine* (Zyprexa*), 10 MG ORAL BID, (Reported) [place]-3 Fatty Acids/Fish Oil (Fish Oil 1,000 Mg Capsule), 1 CAP ORAL BID, ( Reported) Pantoprazole* (Pantoprazole*), 40 MG ORAL DAILY, (Reported) Pantoprazole* (Protonix*), 40 MG ORAL DAILY, (Reported) Ranitidine Hcl* (Zantac*), 150 MG ORAL TWICE A DAY, (Reported) Rivaroxaban (Xarelto*), 20 MG ORAL DAILY, (Reported) Simvastatin (Zocor), 20 MG ORAL BEDTIME, (Reported) Solifenacin Succinate (Vesicare*), 10 MG ORAL HS, (Reported) Tamsulosin Hcl (Tamsulosin Hcl*), 0.4 MG ORAL DAILY, (Reported) Scheduled PRN Acetaminophen (Acetaminophen), 650 MG ORAL Q6H PRN for Prn Headache/Temp > 101, (Reported) Hydrocodone Bit/Acetaminophen 10-325* ([place] 10-325*), 1 TAB ORAL Q4H PRN for For Pain, (Reported) Lorazepam* (Ativan*), 2 MG PO PRN PRN for Agitation, (Reported) Melatonin (Melatonin), 1 MG PO BEDTIME PRN for Insomnia, (Reported) Zolpidem Tartrate* (Ambien*), 10 MG ORAL HS PRN for Insomnia, (Reported) Miscellaneous Medications Hydrocodone Bit/Acetaminophen 10-325* ([place] 10-325*), 1 TAB ORAL, (Reported) Lactobacillus Acidophilus (Acidophilus), 1 EACH PO, (Reported) Lactobacillus Acidophilus/Pect (Acidophilus-Pectin Capsule), 1 EACH PO, ( Reported) Patient History History Provided By: Family Member, Medical Record, EMS, Caregiver Healthcare decision maker Erin Gee Resuscitation status Full Code Advanced Directive on File Family History Family History: Patient reports no known family medical history. Social History Social History: (1) lives at home with daughter Review of Systems ROS Narrative Unable to obtain as pt intubated, sedated Physical Exam Physical Exam Narrative General: intubated, sedated Head: normocephalic, without obvious abnormality, atraumatic Eyes: conjunctivae/corneas clear. PERRL, EOM's intact Throat: lips, mucosa, and tongue normal. MMM Neck: supple, symmetrical, trachea midline, and no JVD Lungs: +rhonchi Heart: regular rate and rhythm, S1, S2 normal, no murmur, click, rub or gallop Abdomen: soft, non-tender, non-distended, bowel sounds normal; Extremities: extremities normal, atraumatic, no cyanosis, +BLE edema Pulses: 2+ and symmetric Skin: skin color, texture, turgor normal; no rashes or lesions Neurologic: grossly normal, no focal deficits Last 24 Hour Vital Signs Date Time Temp Pulse Resp B/P (MAP) Pulse Ox O2 Delivery O2 Flow Rate FiO2 05/10/17 09:30 103 18 113/78 99 Mechanical Ventilator 70 05/10/17 09:25 108 18 70 05/10/17 09:15 103 18 96/37 99 Mechanical Ventilator 70 05/10/17 09:00 102 18 98/25 100 Mechanical Ventilator 70 05/10/17 08:45 102 18 91/49 100 Mechanical Ventilator 70 05/10/17 08:30 103 18 89/25 100 Mechanical Ventilator 70 05/10/17 08:15 103 18 103/27 100 Mechanical Ventilator 70 05/10/17 08:00 70 05/10/17 08:00 98.6 105 16 97/20 100 Mechanical Ventilator 70 05/10/17 08:00 108 05/10/17 07:45 107 18 98/30 100 Mechanical Ventilator 70 05/10/17 07:30 109 18 87/71 100 Mechanical Ventilator 70 05/10/17 07:15 107 18 98/27 100 Mechanical Ventilator 70 05/10/17 07:00 107 19 100/35 98 Mechanical Ventilator 70 05/10/17 06:58 108 18 100 Mechanical Ventilator 70 05/10/17 06:55 107 18 70 05/10/17 06:30 106 18 104/30 98 Mechanical Ventilator 70 05/10/17 06:15 107 18 108/43 98 Mechanical Ventilator 70 05/10/17 06:08 78/46 05/10/17 06:00 109 18 78/45 98 Mechanical Ventilator 70 05/10/17 05:48 98.6 117 18 123/77 98 Mechanical Ventilator 70 05/10/17 05:47 70 05/10/17 05:46 117 05/10/17 05:00 104 18 111/40 98 Mechanical Ventilator 15.0 05/10/17 05:00 98.4 104 18 111/40 98 Mechanical Ventilator 15.0 70 05/10/17 04:42 104 19 70 05/10/17 04:30 104 18 122/41 98 Mechanical Ventilator 15.0 05/10/17 04:20 121/36 05/10/17 04:00 105 16 117/43 99 Mechanical Ventilator 15.0 05/10/17 03:44 103 18 113/42 99 Mechanical Ventilator 15.0 05/10/17 03:30 103 18 113/42 99 Mechanical Ventilator 15.0 05/10/17 03:00 98.4 102 18 115/43 99 Mechanical Ventilator 15.0 05/10/17 02:49 99 18 70 05/10/17 02:40 114/38 05/10/17 02:30 99 18 110/42 100 Mechanical Ventilator 15.0 05/10/17 02:20 116/34 05/10/17 02:00 96.1 98 15 114/46 99 Mechanical Ventilator 15.0 05/10/17 01:40 107/41 05/10/17 01:30 98 18 102/43 100 Mechanical Ventilator 15.0 05/10/17 01:00 95.4 05/10/17 01:00 97 21 120/42 100 Mechanical Ventilator 15.0 05/10/17 00:35 80 05/10/17 00:35 95 18 80 05/10/17 00:30 94 19 124/38 100 Mechanical Ventilator 15.0 05/10/17 00:00 89 18 124/43 100 Mechanical Ventilator 15.0 05/09/17 23:42 86 14 Mechanical Ventilator 100 05/09/17 23:38 86 14 100 05/09/17 23:32 118/43 05/09/17 23:30 100 05/09/17 23:30 88 14 118/43 100 Mechanical Ventilator 15.0 05/09/17 23:27 133/41 05/09/17 23:22 110/32 05/09/17 23:17 109/35 05/09/17 23:12 105/37 05/09/17 23:07 88/20 05/09/17 23:02 95/42 05/09/17 23:00 89 16 98/39 99 Non-Rebreather 15.0 05/09/17 22:57 98/39 05/09/17 22:52 90/51 05/09/17 22:47 89/42 05/09/17 22:42 95/41 05/09/17 22:37 100/39 05/09/17 22:32 104/38 05/09/17 22:30 88 10 100/39 98 Nasal Cannula 4.0 05/09/17 22:27 92/33 05/09/17 22:22 88/33 05/09/17 22:00 87 13 83/15 96 Nasal Cannula 4.0 05/09/17 21:00 83 14 98/34 97 Nasal Cannula 4.0 05/09/17 20:00 94.7 85 15 86/33 96 Nasal Cannula 3.0 05/09/17 18:20 94.4 83 17 96/42 95 Nasal Cannula 3.0 05/09/17 18:10 52 20 84/48 95 Nasal Cannula 3.0 Intake and Output 05/09/17 05/10/17 19:00 07:00 Output Total 1495 ml Balance -1495 ml Output Urine Total 1495 ml Laboratory Tests Test 05/09/17 19:05 05/09/17 20:10 05/10/17 05:20 Urine Color Brown Urine Appearance Clear Urine pH 5 (4.5-8.0) Urine Specific [place] 1.020 (1.005-1.035) Urine Protein 1+ (NEGATIVE) H Urine Glucose (UA) Negative (NEGATIVE) Urine Ketones 2+ (NEGATIVE) H Urine Occult Blood Negative (NEGATIVE) Urine Nitrite Positive (NEGATIVE) H Urine Bilirubin 1+ (NEGATIVE) H Urine Ictotest Negative Urine Urobilinogen 1 MG/DL (0.0-1.0) H Urine Leukocyte Esterase 2+ (NEGATIVE) H Urine RBC 0-2 /HPF (0 - 2) Urine WBC 2-4 /HPF (0 - 2) Urine Squamous Epithelial Cells Few /LPF (NONE/OCC) Urine Amorphous Sediment Few /LPF (NONE) H Urine Bacteria Few /HPF (NONE) Urine Yeast Few /HPF (NONE) H White Blood Count 26.9 K/UL (4.8-10.8) *H 29.6 K/UL (4.8-10.8) *H Red Blood Count 3.28 M/UL (4.20-5.40) L 3.38 M/UL (4.20-5.40) L Hemoglobin 9.7 G/DL (12.0-16.0) L 10.4 G/DL (12.0-16.0) L Hematocrit 32.5 % (37.0-47.0) L 33.0 % (37.0-47.0) L Mean Corpuscular Volume 99 FL (80-99) 98 FL (80-99) Mean Corpuscular Hemoglobin 29.5 PG (27.0-31.0) 30.7 PG (27.0-31.0) Mean Corpuscular Hemoglobin Concent 29.8 G/DL (32.0-36.0) L 31.4 G/DL (32.0-36.0) L Red Cell Distribution Width 14.0 % (11.6-14.8) 14.3 % (11.6-14.8) Platelet Count 370 K/UL (150-450) 474 K/UL (150-450) H Mean Platelet Volume 4.9 FL (6.5-10.1) L 5.3 FL (6.5-10.1) L Neutrophils (%) (Auto) % (45.0-75.0) % (45.0-75.0) Lymphocytes (%) (Auto) % (20.0-45.0) % (20.0-45.0) Monocytes (%) (Auto) % (1.0-10.0) % (1.0-10.0) Eosinophils (%) (Auto) % (0.0-3.0) % (0.0-3.0) Basophils (%) (Auto) % (0.0-2.0) % (0.0-2.0) Differential Total Cells Counted 100 100 Neutrophils % (Manual) 77 % (45-75) H 82 % (45-75) H Lymphocytes % (Manual) 6 % (20-45) L 9 % (20-45) L Monocytes % (Manual) 7 % (1-10) 3 % (1-10) Eosinophils % (Manual) 1 % (0-3) 0 % (0-3) Basophils % (Manual) 0 % (0-2) 0 % (0-2) Band Neutrophils 9 % (0-8) H 6 % (0-8) Platelet Estimate Adequate Adequate Platelet Morphology Normal Normal Hypochromasia 1+ 1+ Anisocytosis 1+ 1+ Prothrombin Time 11.5 SEC (9.30-11.50) Prothromb Time International Ratio 1.1 (0.9-1.1) Activated Partial Thromboplast Time 37 SEC (23-33) H Sodium Level 131 MMOL/L (136-145) L 135 MMOL/L (136-145) L Potassium Level 5.2 MMOL/L (3.5-5.1) H 4.6 MMOL/L (3.5-5.1) Chloride Level 91 MMOL/L (98-107) L 97 MMOL/L (98-107) L Carbon Dioxide Level 28 MMOL/L (21-32) 21 MMOL/L (21-32) Anion Gap 12 mmol/L (5-15) 17 mmol/L (5-15) H Blood Urea Nitrogen 92 mg/dL (7-18) H 78 mg/dL (7-18) H Creatinine 2.5 MG/DL (0.55-1.30) H 1.8 MG/DL (0.55-1.30) H Estimat Glomerular Filtration Rate mL/min (>60) mL/min (>60) Glucose Level 72 MG/DL (74-106) L 65 MG/DL (74-106) L Lactic Acid Level 1.00 mmol/L (0.66-2.22) Calcium Level 11.0 MG/DL (8.5-10.1) H 10.2 MG/DL (8.5-10.1) H Total Bilirubin 0.4 MG/DL (0.2-1.0) Aspartate Amino Transf (AST/SGOT) 16 U/L (15-37) Alanine Aminotransferase (ALT/SGPT) 8 U/L (12-78) L Alkaline Phosphatase 64 U/L (46-116) Total Creatine Kinase 31 U/L (26-308) Creatine Kinase MB 1.1 NG/ML (0.0-3.6) Creatine Kinase MB Relative Index 3.5 Troponin I 0.000 ng/mL (0.000-0.056) Pro-B-Type Natriuretic Peptide 3816 pg/mL (0-125) H Total Protein 6.2 G/DL (6.4-8.2) L Albumin 2.0 G/DL (3.4-5.0) L Globulin 4.2 g/dL Albumin/Globulin Ratio 0.5 (1.0-2.7) L Nucleated Red Blood Cells 1 /100 WBC Phosphorus Level 4.8 MG/DL (2.5-4.9) Magnesium Level 1.8 MG/DL (1.8-2.4) Microbiology Date/Time Source Procedure Growth Status 05/10/17 02:00 Nasal Nares Influenza Types A,B Antigen (SHAWNA) - Final Complete 05/09/17 19:05 Urine,Clean Catch Urine Culture - Preliminary NO GROWTH Resulted Height (Feet): 5 Height (Inches): 4.00 Weight (Pounds): 152 Medications Current Medications Medications (Trade) Dose Ordered Sig/Jacque Route PRN Reason Start Time Stop Time Status Last Admin Dose Admin Acetaminophen (Tylenol) 650 mg Q4H PRN RECTAL FEVER 05/10/17 01:45 06/09/17 01:44 Acetaminophen (Tylenol) 650 mg Q4H PRN RECTAL Mild Pain (Pain Scale 1-3) 05/10/17 01:45 06/09/17 01:44 Bisacodyl (Dulcolax) 10 mg DAILYPRN PRN RECTAL Constipation 05/10/17 01:45 06/09/17 01:44 Dextrose (Dextrose 50%) STAT PRN IV Hypoglycemia 05/10/17 01:45 06/09/17 01:44 Docusate Sodium (Colace) 100 mg EVERY 12 HOURS ORAL 05/10/17 09:00 06/09/17 08:59 05/10/17 08:34 Heparin Sodium (Porcine) (Heparin 5000 units/ml) 5,000 units EVERY 12 HOURS SUBQ 05/10/17 09:00 06/09/17 08:59 05/10/17 08:40 Ipratropium [place] (Atrovent) 500 mcg Q4H PRN HHN Shortness of Breath 05/10/17 01:45 05/15/17 01:44 Ipratropium [place] (Atrovent) 500 mcg Q4HRT HHN 05/10/17 07:00 05/15/17 06:59 05/10/17 06:58 Norepinephrine Bitartrate 8 mg/ Dextrose 254 ml @ 0 mls/hr Q24H IV 05/10/17 09:30 06/09/17 05:59 Ondansetron HCl (Zofran) 4 mg Q6H PRN IVP Nausea & Vomiting 05/10/17 01:45 06/09/17 01:44 Pantoprazole (Protonix) 40 mg DAILY IV 05/10/17 09:00 06/09/17 08:59 05/10/17 08:34 Piperacillin Sod/ Tazobactam Sod 3.375 gm/Sodium Chloride 110 ml @ 27.5 mls/hr Q12H IVPB 05/10/17 08:00 05/17/17 07:59 05/10/17 08:35 Polyethylene Glycol (Miralax) 17 gm DAILYPRN PRN ORAL Constipation 05/10/17 01:45 06/09/17 01:44 Vancomycin HCl (Vanco rx to dose) 1 ea DAILY PRN MISC Per rx protocol 05/10/17 01:45 06/09/17 01:44 Assessment/Plan Problem List: (1) Septic shock ICD Codes: A41.9 - Sepsis, unspecified organism; R65.21 - Severe sepsis with septic shock SNOMED: 06160943 (2) Acute respiratory failure with hypoxia and hypercapnia ICD Codes: J96.01 - Acute respiratory failure with hypoxia; J96.02 - Acute respiratory failure with hypercapnia SNOMED: 44220467, 00321571, 427753749 (3) Aspiration pneumonia ICD Codes: J69.0 - Pneumonitis due to inhalation of food and vomit SNOMED: 248306885 Qualifiers: Qualified Codes: J69.0 - Pneumonitis due to inhalation of food and vomit (4) Toxic metabolic encephalopathy ICD Codes: G92 - Toxic encephalopathy SNOMED: 930096272 (5) JUJU (acute kidney injury) ICD Codes: N17.9 - Acute kidney failure, unspecified SNOMED: 93870056 (6) Hyponatremia ICD Codes: E87.1 - Hyponatremia SNOMED: 47472411 (7) Hyperkalemia ICD Codes: E87.5 - Hyperkalemia SNOMED: 31231277 (8) Seizure disorder ICD Codes: G40.909 - Epilepsy, unspecified, not intractable, without status epilepticus SNOMED: 911962469 (9) DVT/PE (10) Dementia ICD Codes: F03.90 - Dementia SNOMED: 77835943 (11) S/P percutaneous endoscopic gastrostomy (PEG) tube placement ICD Codes: Z93.1 - Gastrostomy status SNOMED: 246199100 Status: stable Assessment/Plan Admit to ICU ID consulted Broad-spectrum abx: vanco and zosyn (05/09-), flagyl added (05/10-) F/u cultures Trend CBC Pulm consulted Cont on vent and wean as tolerated Trend ABG Monitor CXR Renal consulted IVFs given JUJU Trend CBC Hold tube feeds via PEg for now Cont home meds including Eliuqis Cont other home meds including depakote Pain control, supportive care, bowel regimen DVT ppx: Eliquis GI ppx: PPI Dispo: pending further stabilization, cont ICU care FULL CODE per discussion w/ daughter At the time of my involvement, the patient's condition was critical with high potential for and/or physiologic deterioration secondary to acute respiratory failure 2/2 aspiration pneumonia, sepsis, acute encephalopathy as delineated in the note above. On the above date of service, I spent a total of 56 minutes in the ICU evaluating, managing, and providing critical care services to this patient, including time spent documenting these activities, counseling patient/family, and coordinating care. Critical care services performed include: Telemetry Review Hemodynamic measurement interpretation Laboratory data review and interpretation Ventilator setting review, management, and adjustment Discussion of care plans with patient, family, and/or surrogate decision makers Discussion of patient's care with primary medical team, surgical team, and/or consulting service Decision to obtain further radiologic evaluation, after consideration of risk/ benefit ratio Decision to perform invasive procedure, after consideration of risk/benefit ratio Review of most recent microbiology results with assessment and modification of antimicrobial coverage Discussion of patient's code status and further advancement towards the ultimate goals of care Plan outlined above discussed with patient/family, INSTRUCTOR PHYSICAL, 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 D/w pt's daughter regarding plan of care D/w ID re abx Time of note may not reflect time of encounter. Prachi Mejia M.D. May 10, 2017 11:10
--- NOTE | 2017-05-10 11:50 | Diagnostic Imaging Report ---
Indication: Dyspnea Comparison: None A single view chest radiograph was obtained. Findings: Infiltrate suspected at the right lung base. Part of this is due to atelectasis as there is volume loss. Similar findings seen on the prior occasion. Heart size is stable. Interstitial edema may be present also. IMPRESSION: Suspected interstitial edema. Suspected infiltrate right lung base
--- NOTE | 2017-05-10 12:26 | Pulmonolgy Critical Care Note ---
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, 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, 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 Discussed with: nurses, consultants, disease case managerrehabilitation center manager - Objective Last 24 Hour Vital Signs Date Time Temp Pulse Resp B/P (MAP) Pulse Ox O2 Delivery O2 Flow Rate FiO2 05/10/17 12:00 98.9 95 18 87/31 99 Mechanical Ventilator 70 05/10/17 12:00 70 05/10/17 11:53 108/35 05/10/17 11:45 100 18 108/35 99 Mechanical Ventilator 70 05/10/17 11:30 100 18 92/36 98 Mechanical Ventilator 70 05/10/17 11:26 107 18 100 Mechanical Ventilator 70 05/10/17 11:16 114 18 99 Mechanical Ventilator 70 05/10/17 11:15 101 18 95/29 99 Mechanical Ventilator 70 05/10/17 11:01 101 18 70 05/10/17 11:00 101/26 05/10/17 11:00 102 18 101/26 99 Mechanical Ventilator 70 05/10/17 10:45 102 18 101/24 99 Mechanical Ventilator 70 05/10/17 10:30 103 18 103/28 99 Mechanical Ventilator 70 05/10/17 10:15 105 18 92/32 99 Mechanical Ventilator 70 05/10/17 10:00 107 18 101/26 99 Mechanical Ventilator 70 05/10/17 10:00 101/26 05/10/17 09:45 106 18 107/30 99 Mechanical Ventilator 70 05/10/17 09:30 103 18 113/78 99 Mechanical Ventilator 70 05/10/17 09:25 108 18 70 05/10/17 09:15 103 18 96/37 99 Mechanical Ventilator 70 05/10/17 09:00 102 18 98/25 100 Mechanical Ventilator 70 05/10/17 09:00 98/25 05/10/17 08:45 102 18 91/49 100 Mechanical Ventilator 70 05/10/17 08:30 103 18 89/25 100 Mechanical Ventilator 70 05/10/17 08:15 103 18 103/27 100 Mechanical Ventilator 70 05/10/17 08:00 70 05/10/17 08:00 98.6 105 16 97/20 100 Mechanical Ventilator 70 05/10/17 08:00 108 05/10/17 08:00 83/24 05/10/17 07:45 107 18 98/30 100 Mechanical Ventilator 70 05/10/17 07:30 109 18 87/71 100 Mechanical Ventilator 70 05/10/17 07:15 107 18 98/27 100 Mechanical Ventilator 70 05/10/17 07:00 107 19 100/35 98 Mechanical Ventilator 70 05/10/17 06:58 108 18 100 Mechanical Ventilator 70 05/10/17 06:55 107 18 70 05/10/17 06:30 106 18 104/30 98 Mechanical Ventilator 70 05/10/17 06:15 107 18 108/43 98 Mechanical Ventilator 70 05/10/17 06:08 78/46 05/10/17 06:00 109 18 78/45 98 Mechanical Ventilator 70 05/10/17 05:48 98.6 117 18 123/77 98 Mechanical Ventilator 70 05/10/17 05:47 70 05/10/17 05:46 117 05/10/17 05:00 104 18 111/40 98 Mechanical Ventilator 15.0 05/10/17 05:00 98.4 104 18 111/40 98 Mechanical Ventilator 15.0 70 05/10/17 04:42 104 19 70 05/10/17 04:30 104 18 122/41 98 Mechanical Ventilator 15.0 05/10/17 04:20 121/36 05/10/17 04:00 105 16 117/43 99 Mechanical Ventilator 15.0 05/10/17 03:44 103 18 113/42 99 Mechanical Ventilator 15.0 05/10/17 03:30 103 18 113/42 99 Mechanical Ventilator 15.0 05/10/17 03:00 98.4 102 18 115/43 99 Mechanical Ventilator 15.0 05/10/17 02:49 99 18 70 05/10/17 02:40 114/38 05/10/17 02:30 99 18 110/42 100 Mechanical Ventilator 15.0 1/11/18 02:20 116/34 05/10/17 02:00 96.1 98 15 114/46 99 Mechanical Ventilator 15.0 05/10/17 01:40 107/41 05/10/17 01:30 98 18 102/43 100 Mechanical Ventilator 15.0 05/10/17 01:00 95.4 05/10/17 01:00 97 21 120/42 100 Mechanical Ventilator 15.0 05/10/17 00:35 80 05/10/17 00:35 95 18 80 05/10/17 00:30 94 19 124/38 100 Mechanical Ventilator 15.0 05/10/17 00:00 89 18 124/43 100 Mechanical Ventilator 15.0 05/09/17 23:42 86 14 Mechanical Ventilator 100 05/09/17 23:38 86 14 100 05/09/17 23:32 118/43 05/09/17 23:30 100 05/09/17 23:30 88 14 118/43 100 Mechanical Ventilator 15.0 05/09/17 23:27 133/41 05/09/17 23:22 110/32 05/09/17 23:17 109/35 05/09/17 23:12 105/37 05/09/17 23:07 88/20 05/09/17 23:02 95/42 05/09/17 23:00 89 16 98/39 99 Non-Rebreather 15.0 05/09/17 22:57 98/39 05/09/17 22:52 90/51 05/09/17 22:47 89/42 05/09/17 22:42 95/41 05/09/17 22:37 100/39 05/09/17 22:32 104/38 05/09/17 22:30 88 10 100/39 98 Nasal Cannula 4.0 05/09/17 22:27 92/33 05/09/17 22:22 88/33 05/09/17 22:00 87 13 83/15 96 Nasal Cannula 4.0 05/09/17 21:00 83 14 98/34 97 Nasal Cannula 4.0 05/09/17 20:00 94.7 85 15 86/33 96 Nasal Cannula 3.0 05/09/17 18:20 94.4 83 17 96/42 95 Nasal Cannula 3.0 05/09/17 18:10 52 20 84/48 95 Nasal Cannula 3.0 Status: awake Condition: critical HEENT: atraumatic Lungs: clear Heart: HR/BP stable, HR/BP unstable Abdomen: soft, non-tender Extremities: no C/C/E, edema Decubiti: location Micro: Microbiology Date/Time Source Procedure Growth Status 05/10/17 02:00 Nasal Nares Influenza Types A,B Antigen (SHAWNA) - Final Complete 05/09/17 19:05 Urine,Clean Catch Urine Culture - Preliminary NO GROWTH Resulted Critical Care - Subjective ROS Limited/Unobtainable: Yes ICU Day: 1 Intubation Day: 1 EKG Rhythm: Sinus Rhythm FI02: 70 Vent Support Breath Rate: 18 Vent Support Mode: AC Vent Tidal Volume: 500 Sputum Amount: Moderate PEEP: 0 PIP: 19 Secretions: small Drips: levophed I&O: Intake and Output 05/09/17 05/10/17 19:00 07:00 Output Total 1495 ml Balance -1495 ml Output Urine Total 1495 ml CXR: Rll infiltrate ET-Tube: 7.0 ET Position: 23 Labs: Laboratory Tests Test 05/09/17 19:05 05/09/17 20:10 05/10/17 05:20 Urine Color Brown Urine Appearance Clear Urine pH 5 (4.5-8.0) Urine Specific [place] 1.020 (1.005-1.035) Urine Protein 1+ (NEGATIVE) H Urine Glucose (UA) Negative (NEGATIVE) Urine Ketones 2+ (NEGATIVE) H Urine Occult Blood Negative (NEGATIVE) Urine Nitrite Positive (NEGATIVE) H Urine Bilirubin 1+ (NEGATIVE) H Urine Ictotest Negative Urine Urobilinogen 1 MG/DL (0.0-1.0) H Urine Leukocyte Esterase 2+ (NEGATIVE) H Urine RBC 0-2 /HPF (0 - 2) Urine WBC 2-4 /HPF (0 - 2) Urine Squamous Epithelial Cells Few /LPF (NONE/OCC) Urine Amorphous Sediment Few /LPF (NONE) H Urine Bacteria Few /HPF (NONE) Urine Yeast Few /HPF (NONE) H White Blood Count 26.9 K/UL (4.8-10.8) *H 29.6 K/UL (4.8-10.8) *H Red Blood Count 3.28 M/UL (4.20-5.40) L 3.38 M/UL (4.20-5.40) L Hemoglobin 9.7 G/DL (12.0-16.0) L 10.4 G/DL (12.0-16.0) L Hematocrit 32.5 % (37.0-47.0) L 33.0 % (37.0-47.0) L Mean Corpuscular Volume 99 FL (80-99) 98 FL (80-99) Mean Corpuscular Hemoglobin 29.5 PG (27.0-31.0) 30.7 PG (27.0-31.0) Mean Corpuscular Hemoglobin Concent 29.8 G/DL (32.0-36.0) L 31.4 G/DL (32.0-36.0) L Red Cell Distribution Width 14.0 % (11.6-14.8) 14.3 % (11.6-14.8) Platelet Count 370 K/UL (150-450) 474 K/UL (150-450) H Mean Platelet Volume 4.9 FL (6.5-10.1) L 5.3 FL (6.5-10.1) L Neutrophils (%) (Auto) % (45.0-75.0) % (45.0-75.0) Lymphocytes (%) (Auto) % (20.0-45.0) % (20.0-45.0) Monocytes (%) (Auto) % (1.0-10.0) % (1.0-10.0) Eosinophils (%) (Auto) % (0.0-3.0) % (0.0-3.0) Basophils (%) (Auto) % (0.0-2.0) % (0.0-2.0) Differential Total Cells Counted 100 100 Neutrophils % (Manual) 77 % (45-75) H 82 % (45-75) H Lymphocytes % (Manual) 6 % (20-45) L 9 % (20-45) L Monocytes % (Manual) 7 % (1-10) 3 % (1-10) Eosinophils % (Manual) 1 % (0-3) 0 % (0-3) Basophils % (Manual) 0 % (0-2) 0 % (0-2) Band Neutrophils 9 % (0-8) H 6 % (0-8) Platelet Estimate Adequate Adequate Platelet Morphology Normal Normal Hypochromasia 1+ 1+ Anisocytosis 1+ 1+ Prothrombin Time 11.5 SEC (9.30-11.50) Prothromb Time International Ratio 1.1 (0.9-1.1) Activated Partial Thromboplast Time 37 SEC (23-33) H Sodium Level 131 MMOL/L (136-145) L 135 MMOL/L (136-145) L Potassium Level 5.2 MMOL/L (3.5-5.1) H 4.6 MMOL/L (3.5-5.1) Chloride Level 91 MMOL/L (98-107) L 97 MMOL/L (98-107) L Carbon Dioxide Level 28 MMOL/L (21-32) 21 MMOL/L (21-32) Anion Gap 12 mmol/L (5-15) 17 mmol/L (5-15) H Blood Urea Nitrogen 92 mg/dL (7-18) H 78 mg/dL (7-18) H Creatinine 2.5 MG/DL (0.55-1.30) H 1.8 MG/DL (0.55-1.30) H Estimat Glomerular Filtration Rate mL/min (>60) mL/min (>60) Glucose Level 72 MG/DL (74-106) L 65 MG/DL (74-106) L Lactic Acid Level 1.00 mmol/L (0.66-2.22) Calcium Level 11.0 MG/DL (8.5-10.1) H 10.2 MG/DL (8.5-10.1) H Total Bilirubin 0.4 MG/DL (0.2-1.0) Aspartate Amino Transf (AST/SGOT) 16 U/L (15-37) Alanine Aminotransferase (ALT/SGPT) 8 U/L (12-78) L Alkaline Phosphatase 64 U/L (46-116) Total Creatine Kinase 31 U/L (26-308) Creatine Kinase MB 1.1 NG/ML (0.0-3.6) Creatine Kinase MB Relative Index 3.5 Troponin I 0.000 ng/mL (0.000-0.056) Pro-B-Type Natriuretic Peptide 3816 pg/mL (0-125) H Total Protein 6.2 G/DL (6.4-8.2) L Albumin 2.0 G/DL (3.4-5.0) L Globulin 4.2 g/dL Albumin/Globulin Ratio 0.5 (1.0-2.7) L Nucleated Red Blood Cells 1 /100 WBC Phosphorus Level 4.8 MG/DL (2.5-4.9) Magnesium Level 1.8 MG/DL (1.8-2.4) DWAYNE CHERY May 10, 2017 12:26
[2017-05-10] MEDS ORDERED: Morphine Sulfate 4mg/ml Inj IVP ONE (13:06)
--- NOTE | 2017-05-10 13:19 | Wound Care Consultation ---
Wound Assessment Wound Assessment #1: Wound Number: 1 Wound Present on Admission: Yes New Wound: No Status Change of Wound: No Wound Location Body Site Modif: right, anterior Wound Location Body Site: toe - 1st Wound Type: pressure ulcer Rock Test: Does not Rock Pressure Ulcer Stage: Deep Tissue Injury Wound Thickness: Full Thickness Wound Length: 0.3 Wound Width: 0.3 Wound Depth: utd Percent of Wound Purple/Maroon: 100 Wound Drainage Amount: None Wound Drainage Odor: None/Absent Tissue Surrounding Wound: Erythemic Wound General Appearance: Reddened - purple Wound Assessment #2: Wound Number: 2 Wound Present on Admission: Yes New Wound: No Status Change of Wound: No Wound Location Body Site Modif: right, anterior Wound Location Body Site: toe - 2nd Wound Type: pressure ulcer Rock Test: Does not Rock Pressure Ulcer Stage: Deep Tissue Injury Wound Thickness: Full Thickness Wound Length: 0.5 Wound Width: 1.0 Wound Depth: utd Percent of Wound Purple/Maroon: 100 Wound Drainage Amount: None Wound Drainage Odor: None/Absent Tissue Surrounding Wound: Erythemic Wound General Appearance: Reddened - purple Wound Assessment #3: Wound Number: 3 Wound Present on Admission: Yes New Wound: No Status Change of Wound: No Wound Location Body Site Modif: left, anterior Wound Location Body Site: toe - 4th Wound Type: pressure ulcer Rock Test: Does not Rock Pressure Ulcer Stage: Deep Tissue Injury Wound Thickness: Full Thickness Wound Length: 0.2 Wound Width: 0.2 Wound Depth: utd Percent of Wound Purple/Maroon: 100 Wound Drainage Amount: None Wound Drainage Odor: None/Absent Tissue Surrounding Wound: Erythemic Wound General Appearance: Reddened - purple Wound Assessment #4: Wound Number: 4 Wound Present on Admission: Yes New Wound: No Status Change of Wound: No Wound Location Body Site Modif: left, anterior Wound Location Body Site: toe - 3rd Wound Type: pressure ulcer Rock Test: Does not Rock Pressure Ulcer Stage: Deep Tissue Injury Wound Thickness: Full Thickness Wound Length: 0.1 Wound Width: 0.2 Wound Depth: utd Percent of Wound Purple/Maroon: 100 Wound Drainage Amount: None Wound Drainage Odor: None/Absent Tissue Surrounding Wound: Intact Wound General Appearance: Reddened - deep red Wound Assessment #5: Wound Number: 5 Wound Present on Admission: Yes New Wound: No Status Change of Wound: No Wound Location Body Site Modif: left, lateral Wound Location Body Site: toe - 5th Wound Type: pressure ulcer Rock Test: Does not Rock Pressure Ulcer Stage: Deep Tissue Injury Wound Thickness: Full Thickness Wound Length: 0.5 Wound Width: 0.5 Wound Depth: utd Percent of Wound Purple/Maroon: 100 Wound Drainage Amount: None Wound Drainage Odor: None/Absent Tissue Surrounding Wound: Intact Wound General Appearance: Reddened - purple Wound Assessment #6: Wound Number: 6 Wound Present on Admission: Yes New Wound: No Status Change of Wound: No Wound Location Body Site: other - scarococcygeal extending to left buttock Wound Type: pressure ulcer Rock Test: Does not Rock Pressure Ulcer Stage: Unstageable Wound Thickness: Full Thickness Wound Length: 4.5 Wound Width: 4.5 Wound Depth: utd Percent of Wound Bed Yellow/Wh: 80 Percent of Wound Black/Brown: 20 Wound Drainage Description: Serosanguineous Wound Drainage Amount: Moderate Wound Drainage Odor: None/Absent Tissue Surrounding Wound: Macerated Wound General Appearance: Reddened - yellow, brown, Draining Wound Assessment #7: Wound Number: 7 Wound Present on Admission: Yes New Wound: No Status Change of Wound: No Wound Location Body Site Modif: left, lateral Wound Location Body Site: malleolus/ankle Wound Type: pressure ulcer Rock Test: Does not Rock Pressure Ulcer Stage: Deep Tissue Injury Wound Thickness: Full Thickness Wound Length: 5.0 Wound Width: 4.0 Wound Depth: utd Percent of Wound Purple/Maroon: 100 Wound Drainage Amount: None Wound Drainage Odor: None/Absent Tissue Surrounding Wound: Erythemic Wound General Appearance: Reddened - maroon Wound Assessment #8: Wound Number: 8 Wound Present on Admission: Yes New Wound: No Status Change of Wound: No Wound Location Body Site Modif: left, lower, lateral Wound Location Body Site: leg Wound Type: pressure ulcer Rock Test: Does not Rock Pressure Ulcer Stage: Deep Tissue Injury Wound Thickness: Full Thickness Wound Length: 3.0 Wound Width: 1.5 Wound Depth: utd Percent of Wound Purple/Maroon: 100 Wound Drainage Amount: None Wound Drainage Odor: None/Absent Tissue Surrounding Wound: Intact Wound General Appearance: Reddened - purple Wound Assessment #9: Wound Number: 9 Wound Present on Admission: Yes New Wound: No Status Change of Wound: No Wound Location Body Site Modif: left, upper Wound Location Body Site: buttocks Wound Type: pressure ulcer Rock Test: Does not Rock Pressure Ulcer Stage: Unstageable Wound Thickness: Full Thickness Wound Length: 4.0 Wound Width: 1.5 Wound Depth: utd Percent of Wound Pyatt/Red: 20 Percent of Wound Bed Yellow/Wh: 80 Wound Drainage Description: Serosanguineous Wound Drainage Amount: Moderate Tissue Surrounding Wound: Macerated Wound General Appearance: Reddened - yellow, Draining Wound Assessment #10: Wound Number: 10 Wound Present on Admission: Yes New Wound: No Status Change of Wound: No Wound Location Body Site Modif: left, lower Wound Location Body Site: back Wound Type: pressure ulcer Rock Test: Does not Rock Pressure Ulcer Stage: Unstageable Wound Thickness: Full Thickness Wound Length: 4.0 Wound Width: 1.5 Wound Depth: utd Percent of Wound Pyatt/Red: 10 Percent of Wound Bed Yellow/Wh: 90 Wound Drainage Description: Serosanguineous Wound Drainage Amount: Moderate Wound Drainage Odor: None/Absent Tissue Surrounding Wound: Macerated Wound General Appearance: Reddened - yellow, Draining Wound Assessment #11: Wound Number: 11 Wound Present on Admission: Yes New Wound: No Status Change of Wound: No Wound Location Body Site Modif: right Wound Location Body Site: buttocks Wound Type: pressure ulcer Rock Test: Does not Rock Pressure Ulcer Stage: II - scattered Wound Thickness: Partial Thickness Wound Depth: less than 0.1 Percent of Wound Pyatt/Red: 100 Wound Drainage Description: Serosanguineous Wound Drainage Amount: Scant Wound Drainage Odor: None/Absent Tissue Surrounding Wound: Macerated Wound General Appearance: Reddened, Draining Wound Assessment #12: Wound Number: 12 Wound Present on Admission: Yes New Wound: No Status Change of Wound: No Wound Location Body Site: perineal area - extending to mid back, left and right buttocks, left and right posterior thigh Wound Type: other - IAD Rock Test: Does not Rock Percent of Wound Pyatt/Red: 100 Wound Drainage Amount: None Wound Drainage Odor: None/Absent Tissue Surrounding Wound: Erythemic Wound General Appearance: Reddened Wound Assessment #13: Wound Number: 13 Wound Present on Admission: Yes New Wound: No Status Change of Wound: No Wound Location Body Site Modif: left Wound Location Body Site: elbow Wound Type: pressure ulcer Pressure Ulcer Stage: Unstageable Wound Thickness: Full Thickness Wound Length: 3.5 Wound Width: 6.5 Wound Depth: utd Percent of Wound Black/Brown: 100 Wound Drainage Description: Serosanguineous Wound Drainage Amount: Moderate Wound Drainage Odor: None/Absent Tissue Surrounding Wound: Erythemic Wound General Appearance: Blackened, Draining, Necrotic Wound Assessment #14: Wound Number: 14 Wound Present on Admission: Yes New Wound: No Status Change of Wound: No Wound Location Body Site Modif: right Wound Location Body Site: elbow Wound Type: pressure ulcer Rock Test: Does not Rock Pressure Ulcer Stage: Deep Tissue Injury Wound Thickness: Full Thickness Wound Length: 3.5 Wound Width: 3.5 Wound Depth: utd Percent of Wound Purple/Maroon: 100 Wound Drainage Amount: None Wound Drainage Odor: None/Absent Tissue Surrounding Wound: Intact Wound General Appearance: Reddened - deep red Wound Assessment #15: Wound Number: 15 Wound Present on Admission: Yes New Wound: No Status Change of Wound: No Wound Location Body Site Modif: left Wound Location Body Site: ischial tuberosity Wound Type: pressure ulcer Rock Test: Does not Rock Pressure Ulcer Stage: II Wound Thickness: Partial Thickness Wound Length: 2.0 Wound Width: 2.0 Wound Depth: 0.1 Percent of Wound Pyatt/Red: 100 Wound Drainage Description: Serosanguineous Wound Drainage Amount: Scant Wound Drainage Odor: None/Absent Tissue Surrounding Wound: Erythemic Wound General Appearance: Reddened, Draining Wound Assessment #16: Wound Number: 16 Wound Present on Admission: Yes New Wound: No Status Change of Wound: No Wound Location Body Site Modif: right Wound Location Body Site: ischial tuberosity Wound Type: pressure ulcer Rock Test: Does not Rock Pressure Ulcer Stage: II Wound Thickness: Partial Thickness Wound Length: 2.5 Wound Width: 3.0 Wound Depth: 0.1 Percent of Wound Pyatt/Red: 100 Wound Drainage Description: Serosanguineous Wound Drainage Amount: Scant Wound Drainage Odor: None/Absent Tissue Surrounding Wound: Erythemic Wound General Appearance: Reddened, Draining Wound Assessment #17: Wound Number: 7 Wound Present on Admission: Yes New Wound: No Status Change of Wound: No Wound Location Body Site Modif: right, posterior Wound Location Body Site: knee Wound Type: lesion-etiology unknown Rock Test: Does not Rock Wound Thickness: Full Thickness Wound Length: 4.0 Wound Width: 4.0 Wound Depth: utd Percent of Wound Black/Brown: 100 Wound Drainage Description: Serosanguineous Wound Drainage Amount: Scant Wound Drainage Odor: None/Absent Tissue Surrounding Wound: Indurated Wound General Appearance: Blackened, Draining Wound Assessment #18: Wound Number: 18 Wound Present on Admission: Yes New Wound: No Status Change of Wound: No Wound Location Body Site Modif: right Wound Location Body Site: heel Wound Type: pressure ulcer Rock Test: Does not Rock Pressure Ulcer Stage: Deep Tissue Injury Wound Thickness: Full Thickness Wound Length: 2.5 Wound Width: 4.0 Wound Depth: utd Percent of Wound Purple/Maroon: 100 Wound Drainage Amount: None Wound Drainage Odor: None/Absent Tissue Surrounding Wound: Erythemic Wound General Appearance: Reddened - purple Wound Assessment #19: Wound Number: 19 Wound Present on Admission: Yes New Wound: No Status Change of Wound: No Wound Location Body Site Modif: left Wound Location Body Site: heel Wound Type: pressure ulcer Rock Test: Does not Rock Pressure Ulcer Stage: Deep Tissue Injury Wound Thickness: Full Thickness Wound Length: 3.0 Wound Width: 3.5 Wound Depth: utd Percent of Wound Purple/Maroon: 100 Wound Drainage Amount: None Wound Drainage Odor: None/Absent Tissue Surrounding Wound: Intact Wound General Appearance: Reddened - purple Wound Comment #1 Right big toe dry scab #2 Right 1st anterior toe DTI pressure ulcer #3 Left 2nd anterior toe DTI pressure ulcer #4 Left 3rd anterior toe DTI pressure ulcer #5 Left 4th anterior toe DTI pressure ulcer #6 Left 5th anterior toe DTI pressure ulcer #7 Sacrococcygeal extending to left buttock unstageable pressure ulcer #8 Left lateral malleolus DTI pressure ulcer #9 Left upper buttock area unstageable pressure ulcer #10 Left lower back unstageable pressure ulcer #11 Right buttock scattered stage II pressure ulcer #12 IAD on perineal area extending up to mid back, left and right lower posterior thigh #13 Left elbow unstageable pressure ulcer with black eschar adhered to wound bed #14 Right elbow DTI pressure ulcer #15 Left ischial tuberosity stage II pressure ulcer #16 Right ischial tuberosity stage II pressure ulcer #17 Right posterior knee necrotic open wound. Etiology unknown #18 Right heel DTI pressure ulcer #19 Left heel DTI pressure ulcer #20 Abdominal fold, left and right armpit lady rashes #21 Left lateral lower leg DTI pressure ulcer Recommendation -Local wound care per protocol -Keep clean and dry -Optimize nutrition -Turn and reposition -Offload both heels -Apply Lotrimin on the area -Heel protector on both heels -Low air loss P200 mattress -Assess and f/u accordingly for any changes NILDA MEREDITH RN May 10, 2017 13:19
--- NOTE | 2017-05-10 13:29 | Consultation ---
Consult Note Consult Note asked to eval for renal failure- 86-year-old female presents to ED or altered level of consciousness. Per EMS patient was found altered today. Daughter is not at bedside; she left note stating that they were giving her feedings and overfed the patient and she likely aspirated. Patient is altered upon arrival. Patient is unable to provide any additional history at this time. Patient is hypotensive. No other aggravating relieving factors. Denies any other associated symptom patient in ICU intubated Hx Cardiac Problems: Yes Hx Hypertension: Yes - Pulmonary Hx Asthma: Yes Hx COPD: No - PNEUMONIA Hx Diabetes: Yes Hx Gastrointestinal Problems: Yes History Of Psychiatric Problem: Yes - ALZHEIMER Hx Neurological Problems: Yes Hx Cerebrovascular Accident: Yes Hx Dementia: Yes Hx Alzheimer's Disease: Yes Hx Seizures: Yes Hx Memory Loss: Yes Hx Concentration Difficulty: Yes Assessment/Plan acute renal failure ? CKD underlying Acute respiratory failure septic shock sever Hypercalcemia, corrected for low Albumin HypoAlbuminemia Anemia Dementia Plan: 2D echo- Hydrate hemodynamic support Aredia monitor renal parameters avoid nephrotoxics per orders ALYSON FLANAGAN May 10, 2017 13:29
--- NOTE | 2017-05-10 13:47 | General Progress Note ---
Progress Note Progress Note Surgery: full consult and procedure note to follow. called to evaluate patient in intensive care unit. patient in critical condition. needs central venous access for multiple medication, abx, and pressors prn. patient seen and evaluated, chart reviewed, spoke with family. left subclavian central venous catheter placed without complication. cxr reviewed. okay to use line. Bert Mauro May 10, 2017 13:47
--- NOTE | 2017-05-10 13:52 | Diagnostic Imaging Report ---
Indication: Line placement Comparison: 05/09/2017 A single view chest radiograph was obtained. Findings: Left subclavian line has been passed. Tip is in the proximal right atrium. Pulmonary edema noted. Endotracheal tube is in good position unchanged. IMPRESSION: Subclavian line in good position. No pneumothorax
[2017-05-10] MEDS: D5NS 1,000 ML IV SCH ×2 (14:37→20:40)
[2017-05-10 15:24] LABS: INR 1.1 (0.9-1.1)
[2017-05-10 15:26] LABS: CREATINE KINASE 91 U/L (26-308); LACTATE DEHYDROGENASE 131 U/L (81-234)
[2017-05-10 15:27] LABS: APPEARANCE,URINE SLIGHTLY CLOUDY; BILIRUBIN, URINE NEGATIVE (NEGATIVE); COLOR,URINE PALE YELLOW; GLUCOSE, URINE (UA) NEGATIVE (NEGATIVE); KETONES,URINE 2+ (NEGATIVE); LEUKOCYTE ESTERASE ,URINE 2+ (NEGATIVE); NITRITE,URINE NEGATIVE (NEGATIVE); PH,URINE 5 (4.5-8.0); PROTEIN,URINE 2+ (NEGATIVE); UROBILINOGEN,URINE NORMAL MG/DL (0.0-1.0)
[2017-05-10] MEDS ORDERED: Pamidronate Disodium Inj 60 MG in Sodium Chloride 500ML 550 ML IVPB ONE (16:00)
--- NOTE | 2017-05-10 16:15 | Consultation ---
History of Present Illness General Date patient seen: May 10, 2017 Chief Complaint: Altered Level of Consciousness Referring physician: Dianna Reason for Consultation: Central venous access Present Illness HPI 86F presented to ED with altered mental status. From report a note was left that patient was overfed and possibly aspirated. Went into respiratory compromise and required intubation with vent support. Currently in ICU for critical care management. Septic with leukocytosis near 30k. requiring multiple medications and abx. had prior femoral line that was placed urgently in ED for life saving measures but line needs replacement given conditions it was placed in and care home need for patient. central venous access necessary. surgery called to evaluate. patient seen. chart reviewed. spoke with family. Allergies: Coded Allergies: NO KNOWN DRUG ALLERGIES (Unverified Allergy, Unknown, 07/29/14) Medication History Scheduled Acidophilus/Bulgaricus (Floranex Tablet), 1 EACH PO BID, (Reported) Amoxicillin/Potassium Clav 875-125* (Augmentin 875-125 Tablet*), 1 TAB ORAL TWICE A DAY Apixaban (Eliquis), 5 MG PO BID, (Reported) Baclofen* (Baclofen*), 10 MG ORAL THREE TIMES A DAY, (Reported) Bisacodyl* (Dulcolax*), 10 MG RECTAL ONCE, (Reported) Calcitonin,[place],Synthetic (Calcitonin-[place]), 3.7 ML NS DAILY, (Reported) Divalproex Sodium* (Depakote*), 500 MG PO Q12HR, (Reported) Docusate Sodium* (Docusate Sodium*), 100 MG ORAL TWICE A DAY, (Reported) Doxazosin Mesylate* (Cardura*), 2 MG ORAL DAILY, (Reported) Doxycycline Monohydrate* (Doxycycline Monohydrate*), 100 MG ORAL Q12H Ergocalciferol (Vitamin D2)* (Vitamin D*), 50,000 UNIT ORAL ONCE A WEEK, ( Reported) Ferrous Sulfate* (Ferrous Sulfate*), 325 MG ORAL DAILY, (Reported) Fluvoxamine Maleate (Fluvoxamine Maleate), 50 MG ORAL BID, (Reported) Lactobacillus Cmb#7/Fos/Inulin (Probiotic Complex Tablet), Unknown Dose PO DAILY , (Reported) Levothyroxine Sodium* (Levothyroxine Sodium*), 50 MCG ORAL DAILY, (Reported) Lidocaine (Lidocaine), 1,400 MG TP DAILY, (Reported) Memantine Hcl* (Namenda*), 10 MG ORAL TWICE A DAY, (Reported) Memantine Hcl* (Namenda*), 10 MG ORAL TWICE A DAY, (Reported) Multivitamin With Minerals (Multivitamins With Minerals*), 1 TAB ORAL DAILY, ( Reported) Nitrofurantoin Monohyd/M-Cryst* (Macrobid 100 Mg*), 100 MG ORAL DAILY, (Reported ) Olanzapine* (Zyprexa*), 5 MG ORAL HS, (Reported) Olanzapine* (Zyprexa*), 10 MG ORAL DAILY, (Reported) Olanzapine* (Zyprexa*), 10 MG ORAL BID, (Reported) Mcalister-3 Fatty Acids/Fish Oil (Fish Oil 1,000 Mg Capsule), 1 CAP ORAL BID, ( Reported) Pantoprazole* (Pantoprazole*), 40 MG ORAL DAILY, (Reported) Pantoprazole* (Protonix*), 40 MG ORAL DAILY, (Reported) Ranitidine Hcl* (Zantac*), 150 MG ORAL TWICE A DAY, (Reported) Rivaroxaban (Xarelto*), 20 MG ORAL DAILY, (Reported) Simvastatin (Zocor), 20 MG ORAL BEDTIME, (Reported) Solifenacin Succinate (Vesicare*), 10 MG ORAL HS, (Reported) Tamsulosin Hcl (Tamsulosin Hcl*), 0.4 MG ORAL DAILY, (Reported) Scheduled PRN Acetaminophen (Acetaminophen), 650 MG ORAL Q6H PRN for Prn Headache/Temp > 101, (Reported) Hydrocodone Bit/Acetaminophen 10-325* ([place] 10-325*), 1 TAB ORAL Q4H PRN for For Pain, (Reported) Lorazepam* (Ativan*), 2 MG PO PRN PRN for Agitation, (Reported) Melatonin (Melatonin), 1 MG PO BEDTIME PRN for Insomnia, (Reported) Zolpidem Tartrate* (Ambien*), 10 MG ORAL HS PRN for Insomnia, (Reported) Miscellaneous Medications Hydrocodone Bit/Acetaminophen 10-325* ([place] 10-325*), 1 TAB ORAL, (Reported) Lactobacillus Acidophilus (Acidophilus), 1 EACH PO, (Reported) Lactobacillus Acidophilus/Pect (Acidophilus-Pectin Capsule), 1 EACH PO, ( Reported) Patient History Limited by: medical condition History Provided By: Family Member, Medical Record, PMD Healthcare decision maker Erin Gee Resuscitation status Full Code Advanced Directive on File Past Medical/Surgical History Past Medical/Surgical History: (1) Hallucinations (2) Retention of urine (3) Herpes zoster (4) Acute respiratory failure (5) Anemia (6) Encounter for PEG (percutaneous endoscopic gastrostomy) (7) Schizophrenia (8) Seizure disorder (9) History of pulmonary aspiration (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 (11) lives with daughter at home (12) Hyperkalemia (13) JUJU (acute kidney injury) (14) Toxic metabolic encephalopathy (15) Encephalopathy (16) Altered level of consciousness (17) Generalized weakness (18) Chronic bronchitis (19) Altered level of consciousness (20) Renal insufficiency (21) Septic shock (22) Aspiration pneumonia (23) Acute respiratory failure with hypoxia and hypercapnia (24) UTI (lower urinary tract infection) (25) UTI (lower urinary tract infection) (26) Sepsis (27) Acute encephalopathy (28) SVT (supraventricular tachycardia) (29) Dementia (30) Hyponatremia (31) Hypokalemia (32) Diabetes mellitus (33) Infection due to ESBL-producing Escherichia coli (34) Transaminitis Review of Systems ROS Narrative cannot obtain given patients current medical condition Physical Exam General Appearance: other - comfortable Lines, tubes and drains: central line, endotracheal tube, cota cath HEENT: atraumatic Neck: normal inspection Respiratory/Chest: on vent Cardiovascular/Chest: regularly irregular Abdomen: soft, no organomegaly, no mass Extremities: moderate edema Skin Exam: normal pigmentation Neurologic: unresponsiveness Last 24 Hour Vital Signs Date Time Temp Pulse Resp B/P (MAP) Pulse Ox O2 Delivery O2 Flow Rate FiO2 05/10/17 16:00 99.5 102 18 111/36 98 Mechanical Ventilator 70 05/10/17 15:45 103 21 114/36 99 Mechanical Ventilator 70 05/10/17 15:35 104 18 98 Mechanical Ventilator 70 05/10/17 15:30 106 21 110/40 99 Mechanical Ventilator 70 05/10/17 15:25 104 18 98 Mechanical Ventilator 70 05/10/17 15:20 104 18 70 05/10/17 15:15 106 21 116/41 97 Mechanical Ventilator 70 05/10/17 15:00 105 21 124/44 97 Mechanical Ventilator 70 05/10/17 14:45 103 21 128/46 98 Mechanical Ventilator 70 05/10/17 14:30 89 21 93/37 96 Mechanical Ventilator 70 05/10/17 14:15 91 21 60/20 97 Mechanical Ventilator 70 05/10/17 14:00 102 21 103/31 98 Mechanical Ventilator 70 05/10/17 13:45 103 21 101/31 98 Mechanical Ventilator 70 05/10/17 13:30 103 21 100/31 99 Mechanical Ventilator 70 05/10/17 13:15 109 21 108/35 99 Mechanical Ventilator 70 05/10/17 12:43 97 18 70 05/10/17 12:15 104 21 94/25 99 Mechanical Ventilator 70 05/10/17 12:00 98.9 95 18 87/31 99 Mechanical Ventilator 70 05/10/17 12:00 70 05/10/17 12:00 96 05/10/17 11:53 108/35 05/10/17 11:45 100 18 108/35 99 Mechanical Ventilator 70 05/10/17 11:30 100 18 92/36 98 Mechanical Ventilator 70 05/10/17 11:26 107 18 100 Mechanical Ventilator 70 05/10/17 11:16 114 18 99 Mechanical Ventilator 70 05/10/17 11:15 101 18 95/29 99 Mechanical Ventilator 70 05/10/17 11:01 101 18 70 05/10/17 11:00 101/26 05/10/17 11:00 102 18 101/26 99 Mechanical Ventilator 70 05/10/17 10:45 102 18 101/24 99 Mechanical Ventilator 70 05/10/17 10:30 103 18 103/28 99 Mechanical Ventilator 70 05/10/17 10:15 105 18 92/32 99 Mechanical Ventilator 70 05/10/17 10:00 107 18 101/26 99 Mechanical Ventilator 70 05/10/17 10:00 101/26 05/10/17 09:45 106 18 107/30 99 Mechanical Ventilator 70 05/10/17 09:30 103 18 113/78 99 Mechanical Ventilator 70 05/10/17 09:25 108 18 70 05/10/17 09:15 103 18 96/37 99 Mechanical Ventilator 70 05/10/17 09:00 102 18 98/25 100 Mechanical Ventilator 70 05/10/17 09:00 98/25 05/10/17 08:45 102 18 91/49 100 Mechanical Ventilator 70 05/10/17 08:30 103 18 89/25 100 Mechanical Ventilator 70 05/10/17 08:15 103 18 103/27 100 Mechanical Ventilator 70 05/10/17 08:00 70 05/10/17 08:00 98.6 105 16 97/20 100 Mechanical Ventilator 70 05/10/17 08:00 108 05/10/17 08:00 83/24 05/10/17 07:45 107 18 98/30 100 Mechanical Ventilator 70 05/10/17 07:30 109 18 87/71 100 Mechanical Ventilator 70 05/10/17 07:15 107 18 98/27 100 Mechanical Ventilator 70 05/10/17 07:00 107 19 100/35 98 Mechanical Ventilator 70 05/10/17 06:58 108 18 100 Mechanical Ventilator 70 05/10/17 06:55 107 18 70 05/10/17 06:30 106 18 104/30 98 Mechanical Ventilator 70 05/10/17 06:15 107 18 108/43 98 Mechanical Ventilator 70 05/10/17 06:08 78/46 05/10/17 06:00 109 18 78/45 98 Mechanical Ventilator 70 05/10/17 05:48 98.6 117 18 123/77 98 Mechanical Ventilator 70 05/10/17 05:47 70 05/10/17 05:46 117 05/10/17 05:00 104 18 111/40 98 Mechanical Ventilator 15.0 05/10/17 05:00 98.4 104 18 111/40 98 Mechanical Ventilator 15.0 70 05/10/17 04:42 104 19 70 05/10/17 04:30 104 18 122/41 98 Mechanical Ventilator 15.0 05/10/17 04:20 121/36 05/10/17 04:00 105 16 117/43 99 Mechanical Ventilator 15.0 05/10/17 03:44 103 18 113/42 99 Mechanical Ventilator 15.0 05/10/17 03:30 103 18 113/42 99 Mechanical Ventilator 15.0 05/10/17 03:00 98.4 102 18 115/43 99 Mechanical Ventilator 15.0 05/10/17 02:49 99 18 70 05/10/17 02:40 114/38 05/10/17 02:30 99 18 110/42 100 Mechanical Ventilator 15.0 05/10/17 02:20 116/34 05/10/17 02:00 96.1 98 15 114/46 99 Mechanical Ventilator 15.0 05/10/17 01:40 107/41 05/10/17 01:30 98 18 102/43 100 Mechanical Ventilator 15.0 05/10/17 01:00 95.4 05/10/17 01:00 97 21 120/42 100 Mechanical Ventilator 15.0 05/10/17 00:35 80 05/10/17 00:35 95 18 80 05/10/17 00:30 94 19 124/38 100 Mechanical Ventilator 15.0 05/10/17 00:00 89 18 124/43 100 Mechanical Ventilator 15.0 05/09/17 23:42 86 14 Mechanical Ventilator 100 05/09/17 23:38 86 14 100 05/09/17 23:32 118/43 05/09/17 23:30 100 05/09/17 23:30 88 14 118/43 100 Mechanical Ventilator 15.0 05/09/17 23:27 133/41 05/09/17 23:22 110/32 05/09/17 23:17 109/35 05/09/17 23:12 105/37 05/09/17 23:07 88/20 05/09/17 23:02 95/42 05/09/17 23:00 89 16 98/39 99 Non-Rebreather 15.0 05/09/17 22:57 98/39 05/09/17 22:52 90/51 05/09/17 22:47 89/42 05/09/17 22:42 95/41 05/09/17 22:37 100/39 05/09/17 22:32 104/38 05/09/17 22:30 88 10 100/39 98 Nasal Cannula 4.0 05/09/17 22:27 92/33 05/09/17 22:22 88/33 05/09/17 22:00 87 13 83/15 96 Nasal Cannula 4.0 05/09/17 21:00 83 14 98/34 97 Nasal Cannula 4.0 05/09/17 20:00 94.7 85 15 86/33 96 Nasal Cannula 3.0 05/09/17 18:20 94.4 83 17 96/42 95 Nasal Cannula 3.0 05/09/17 18:10 52 20 84/48 95 Nasal Cannula 3.0 Intake and Output 05/09/17 05/10/17 19:00 07:00 Output Total 1495 ml Balance -1495 ml Output Urine Total 1495 ml Laboratory Tests Test 05/09/17 19:05 05/09/17 20:10 05/10/17 05:20 05/10/17 14:00 Urine Color Brown Urine Appearance Clear Urine pH 5 (4.5-8.0) Urine Specific [place] 1.020 (1.005-1.035) Urine Protein 1+ (NEGATIVE) H Urine Glucose (UA) Negative (NEGATIVE) Urine Ketones 2+ (NEGATIVE) H Urine Occult Blood Negative (NEGATIVE) Urine Nitrite Positive (NEGATIVE) H Urine Bilirubin 1+ (NEGATIVE) H Urine Ictotest Negative Urine Urobilinogen 1 MG/DL (0.0-1.0) H Urine Leukocyte Esterase 2+ (NEGATIVE) H Urine RBC 0-2 /HPF (0 - 2) Urine WBC 2-4 /HPF (0 - 2) Urine Squamous Epithelial Cells Few /LPF (NONE/OCC) Urine Amorphous Sediment Few /LPF (NONE) H Urine Bacteria Few /HPF (NONE) Urine Yeast Few /HPF (NONE) H White Blood Count 26.9 K/UL (4.8-10.8) *H 29.6 K/UL (4.8-10.8) *H Red Blood Count 3.28 M/UL (4.20-5.40) L 3.38 M/UL (4.20-5.40) L Hemoglobin 9.7 G/DL (12.0-16.0) L 10.4 G/DL (12.0-16.0) L Hematocrit 32.5 % (37.0-47.0) L 33.0 % (37.0-47.0) L Mean Corpuscular Volume 99 FL (80-99) 98 FL (80-99) Mean Corpuscular Hemoglobin 29.5 PG (27.0-31.0) 30.7 PG (27.0-31.0) Mean Corpuscular Hemoglobin Concent 29.8 G/DL (32.0-36.0) L 31.4 G/DL (32.0-36.0) L Red Cell Distribution Width 14.0 % (11.6-14.8) 14.3 % (11.6-14.8) Platelet Count 370 K/UL (150-450) 474 K/UL (150-450) H Mean Platelet Volume 4.9 FL (6.5-10.1) L 5.3 FL (6.5-10.1) L Neutrophils (%) (Auto) % (45.0-75.0) % (45.0-75.0) Lymphocytes (%) (Auto) % (20.0-45.0) % (20.0-45.0) Monocytes (%) (Auto) % (1.0-10.0) % (1.0-10.0) Eosinophils (%) (Auto) % (0.0-3.0) % (0.0-3.0) Basophils (%) (Auto) % (0.0-2.0) % (0.0-2.0) Differential Total Cells Counted 100 100 Neutrophils % (Manual) 77 % (45-75) H 82 % (45-75) H Lymphocytes % (Manual) 6 % (20-45) L 9 % (20-45) L Monocytes % (Manual) 7 % (1-10) 3 % (1-10) Eosinophils % (Manual) 1 % (0-3) 0 % (0-3) Basophils % (Manual) 0 % (0-2) 0 % (0-2) Band Neutrophils 9 % (0-8) H 6 % (0-8) Platelet Estimate Adequate Adequate Platelet Morphology Normal Normal Hypochromasia 1+ 1+ Anisocytosis 1+ 1+ Prothrombin Time 11.5 SEC (9.30-11.50) 12.0 SEC (9.30-11.50) H Prothromb Time International Ratio 1.1 (0.9-1.1) 1.1 (0.9-1.1) Activated Partial Thromboplast Time 37 SEC (23-33) H 37 SEC (23-33) H Sodium Level 131 MMOL/L (136-145) L 135 MMOL/L (136-145) L Potassium Level 5.2 MMOL/L (3.5-5.1) H 4.6 MMOL/L (3.5-5.1) Chloride Level 91 MMOL/L (98-107) L 97 MMOL/L (98-107) L Carbon Dioxide Level 28 MMOL/L (21-32) 21 MMOL/L (21-32) Anion Gap 12 mmol/L (5-15) 17 mmol/L (5-15) H Blood Urea Nitrogen 92 mg/dL (7-18) H 78 mg/dL (7-18) H Creatinine 2.5 MG/DL (0.55-1.30) H 1.8 MG/DL (0.55-1.30) H Estimat Glomerular Filtration Rate mL/min (>60) mL/min (>60) Glucose Level 72 MG/DL (74-106) L 65 MG/DL (74-106) L Lactic Acid Level 1.00 mmol/L (0.66-2.22) Calcium Level 11.0 MG/DL (8.5-10.1) H 10.2 MG/DL (8.5-10.1) H Total Bilirubin 0.4 MG/DL (0.2-1.0) Aspartate Amino Transf (AST/SGOT) 16 U/L (15-37) Alanine Aminotransferase (ALT/SGPT) 8 U/L (12-78) L Alkaline Phosphatase 64 U/L (46-116) Total Creatine Kinase 31 U/L (26-308) 91 U/L (26-308) Creatine Kinase MB 1.1 NG/ML (0.0-3.6) Creatine Kinase MB Relative Index 3.5 Troponin I 0.000 ng/mL (0.000-0.056) Pro-B-Type Natriuretic Peptide 3816 pg/mL (0-125) H Total Protein 6.2 G/DL (6.4-8.2) L Albumin 2.0 G/DL (3.4-5.0) L Globulin 4.2 g/dL Albumin/Globulin Ratio 0.5 (1.0-2.7) L Nucleated Red Blood Cells 1 /100 WBC Erythrocyte Sedimentation Rate 94 MM/HR (0-42) H Reticulocyte Count 1.8 % (0.0-2.0) Phosphorus Level 4.8 MG/DL (2.5-4.9) Magnesium Level 1.8 MG/DL (1.8-2.4) Uric Acid 10.3 MG/DL (2.6-7.2) H Iron Level Pending Unsaturated Iron Binding Pending Lactate Dehydrogenase 131 U/L (81-234) Vitamin B12 Level Pending Folate Pending Test 05/10/17 14:35 Urine Color Pale yellow Urine Appearance Slightly cloudy Urine pH 5 (4.5-8.0) Urine Specific [place] 1.010 (1.005-1.035) Urine Protein 2+ (NEGATIVE) H Urine Glucose (UA) Negative (NEGATIVE) Urine Ketones 2+ (NEGATIVE) H Urine Occult Blood 2+ (NEGATIVE) H Urine Nitrite Negative (NEGATIVE) Urine Bilirubin Negative (NEGATIVE) Urine Urobilinogen Normal MG/DL (0.0-1.0) Urine Leukocyte Esterase 2+ (NEGATIVE) H Urine RBC 2-4 /HPF (0 - 2) H Urine WBC 5-10 /HPF (0 - 2) H Urine Squamous Epithelial Cells Few /LPF (NONE/OCC) Urine Amorphous Sediment Few /LPF (NONE) H Urine Bacteria Moderate /HPF (NONE) H Urine Yeast Few /HPF (NONE) H Urine Eosinophils None seen Urine Random Sodium 12 MEQ/L (20-110) L Urine Potassium Timed 27 mmol/L (12-62) Microbiology Date/Time Source Procedure Growth Status 05/10/17 02:00 Nasal Nares Influenza Types A,B Antigen (SHAWNA) - Final Complete 05/09/17 19:05 Urine,Clean Catch Urine Culture - Preliminary NO GROWTH Resulted Height (Feet): 5 Height (Inches): 4.00 Weight (Pounds): 152 Medications Current Medications Medications (Trade) Dose Ordered Sig/Jacque Route PRN Reason Start Time Stop Time Status Last Admin Dose Admin Acetaminophen (Tylenol) 650 mg Q4H PRN RECTAL FEVER 05/10/17 01:45 06/09/17 01:44 Acetaminophen (Tylenol) 650 mg Q4H PRN RECTAL Mild Pain (Pain Scale 1-3) 05/10/17 01:45 06/09/17 01:44 Bisacodyl (Dulcolax) 10 mg DAILYPRN PRN RECTAL Constipation 05/10/17 01:45 06/09/17 01:44 Clotrimazole (Lotrimin) 1 applic EVERY 12 HOURS TOPIC 05/10/17 15:00 06/09/17 14:59 Dextrose (Dextrose 50%) STAT PRN IV Hypoglycemia 05/10/17 01:45 06/09/17 01:44 Dextrose/Sodium Chloride 1,000 ml @ 150 mls/hr Q6H40M IV 05/10/17 14:30 06/09/17 14:29 05/10/17 14:37 Docusate Sodium (Colace) 100 mg EVERY 12 HOURS ORAL 05/10/17 09:00 06/09/17 08:59 05/10/17 08:34 Heparin Sodium (Porcine) (Heparin 5000 units/ml) 5,000 units EVERY 12 HOURS SUBQ 05/10/17 09:00 06/09/17 08:59 05/10/17 08:40 Ipratropium [place] (Atrovent) 500 mcg Q4H PRN HHN Shortness of Breath 05/10/17 01:45 05/15/17 01:44 Ipratropium [place] (Atrovent) 500 mcg Q4HRT HHN 05/10/17 07:00 05/15/17 06:59 05/10/17 15:58 Norepinephrine Bitartrate 8 mg/ Dextrose 254 ml @ 0 mls/hr Q24H IV 05/10/17 09:30 06/09/17 05:59 05/10/17 11:53 Ondansetron HCl (Zofran) 4 mg Q6H PRN IVP Nausea & Vomiting 05/10/17 01:45 06/09/17 01:44 Pamidronate Disodium 60 mg/ Sodium Chloride 550 ml @ 137.5 mls/ hr ONCE ONCE IVPB 05/10/17 16:00 05/10/17 19:59 Pantoprazole (Protonix) 40 mg Q12HR IV 05/10/17 21:00 06/09/17 20:59 Piperacillin Sod/ Tazobactam Sod 3.375 gm/Sodium Chloride 110 ml @ 27.5 mls/hr Q12H IVPB 05/10/17 08:00 05/17/17 07:59 05/10/17 08:35 Polyethylene Glycol (Miralax) 17 gm DAILYPRN PRN ORAL Constipation 05/10/17 01:45 06/09/17 01:44 Vancomycin HCl (Vanco rx to dose) 1 ea DAILY PRN MISC Per rx protocol 05/10/17 01:45 06/09/17 01:44 Assessment/Plan Problem List: (1) Septic shock Assessment & Plan: 86F with severe sepsis. multiple medical comorbidities. respiratory failure requiring intubation on vent. required pressors. leukocytosis requiring multiple abx. prior venous access placed as emergency in femoral vein. needs multiple medications and antibiotics as well as fluids. central venous access recommended and indicated for critical care management. spoke with family about care plans. -plan for subclavian central venous line sabrina -remove femoral line as soon as new line placed. thank you for this consultation. ICD Codes: A41.9 - Sepsis, unspecified organism; R65.21 - Severe sepsis with septic shock SNOMED: [id number] Status: not improved, unchanged Bert Mauro May 10, 2017 16:15
[2017-05-10 16:20] LABS: % IRON SATURATION 11 % (15-50); IRON 16 ug/dL (50-175); TOTAL IRON BINDING CAPACITY 140 ug/dL (250-450)
--- NOTE | 2017-05-10 16:21 | Operative Note - PDOC ---
Operative Note Operative Note Date of Operation/Procedure: May 10, 2017 Pre-op Diagnosis: septic shock / severe sepsis Procedure: left subclavian central venous line placement. Post-op Diagnosis: same as pre-op Surgeon: russ Anesthesia: moderate sedation Specimen: none Complications: none Condition: stable Fluids: n/a Estimated Blood Loss: minimal Drains: none Implant(s) used?: Yes - triple lumen central line Indications for Procedure 86F septic shock. respiratory failure requiring intubation and ventilatory support. leukocytosis on multiple antibiotics. central venous access recommended and indicated for critical care management. risks, benefits, and alteratives discussed with daughter who consented to procedure. Description of Procedure patient made comfortable at bedside. currently sedated and given Rx. left subclavian site for use. left chest wall and neck prepped and draped in standard surgical fashion. appropriate sterile techinque used. time out preformed. left subclavian vein obtained with finder needle. good venous flow aspirated. guide wire passed over finder needle without difficulty. finder needle removed. small incision made using scalpel over guide wire insertion site. dilator used to dilate tract. triple lumen catheter placed over guide without. guide wire removed and discarded. all ports aspirated and flushed without difficulty. line sutured to skin at two sites. dressings applied. patient tolerated procedure well. CXR obtained and line in proper positioning without complication. Bert Mauro May 10, 2017 16:21
[2017-05-10] MEDS ORDERED: Vancomycin 750mg/NS 250ml IVPB ONE (19:00)
[2017-05-10] MEDS: Pantoprazole Inj IV SCH (21:02)
--- NOTE | 2017-05-10 21:28 | Infectious Diseases Prog Note ---
Assessment/Plan Assessment/Plan Full consult dictated: A) 1) sepsis, shock, leukocytosis, fevers, pna, uc - negative 2) ivan, respiratory failure 3) pmh noted 4) allergies - negative 5) fungal rash P) 1) zosyn and vancomycin 2) check cultures, labs and chest x-ray 3) wound care 4) thank you Subjective Allergies: Coded Allergies: NO KNOWN DRUG ALLERGIES (Unverified Allergy, Unknown, 07/29/14) Objective Vital Signs Last 24 Hour Vital Signs Date Time Temp Pulse Resp B/P (MAP) Pulse Ox O2 Delivery O2 Flow Rate FiO2 05/10/17 20:50 104 18 70 05/10/17 19:06 94 18 99 Mechanical Ventilator 70 05/10/17 18:59 92 18 98 Mechanical Ventilator 70 05/10/17 18:58 92 18 70 05/10/17 18:45 91 18 116/77 99 Mechanical Ventilator 70 05/10/17 18:30 82 18 122/40 97 Mechanical Ventilator 70 05/10/17 18:23 106/37 05/10/17 18:15 93 17 106/37 99 Mechanical Ventilator 70 05/10/17 18:00 103/31 05/10/17 18:00 94 18 107/32 99 Mechanical Ventilator 70 05/10/17 17:45 97 18 103/31 99 Mechanical Ventilator 70 05/10/17 17:30 100 18 110/32 99 Mechanical Ventilator 70 05/10/17 17:30 99 18 70 05/10/17 17:15 108 19 124/31 98 Mechanical Ventilator 70 05/10/17 17:00 98 18 110/35 98 Mechanical Ventilator 70 05/10/17 17:00 110/35 05/10/17 16:45 100 18 111/39 98 Mechanical Ventilator 70 05/10/17 16:30 101 18 109/40 98 Mechanical Ventilator 70 05/10/17 16:15 103 18 109/38 98 Mechanical Ventilator 70 05/10/17 16:00 70 05/10/17 16:00 105 05/10/17 16:00 111/36 05/10/17 16:00 99.5 102 18 111/36 98 Mechanical Ventilator 70 05/10/17 15:45 103 21 114/36 99 Mechanical Ventilator 70 05/10/17 15:35 104 18 98 Mechanical Ventilator 70 05/10/17 15:30 106 21 110/40 99 Mechanical Ventilator 70 05/10/17 15:25 104 18 98 Mechanical Ventilator 70 05/10/17 15:20 104 18 70 05/10/17 15:15 106 21 116/41 97 Mechanical Ventilator 70 05/10/17 15:00 105 21 124/44 97 Mechanical Ventilator 70 05/10/17 15:00 124/44 05/10/17 14:45 103 21 128/46 98 Mechanical Ventilator 70 05/10/17 14:30 89 21 93/37 96 Mechanical Ventilator 70 05/10/17 14:15 91 21 60/20 97 Mechanical Ventilator 70 05/10/17 14:00 102 21 103/31 98 Mechanical Ventilator 70 05/10/17 14:00 103/31 05/10/17 13:45 103 21 101/31 98 Mechanical Ventilator 70 05/10/17 13:30 103 21 100/31 99 Mechanical Ventilator 70 05/10/17 13:15 109 21 108/35 99 Mechanical Ventilator 70 05/10/17 13:00 109 18 113/35 99 Mechanical Ventilator 70 05/10/17 13:00 113/35 05/10/17 12:45 106 18 89/39 99 Mechanical Ventilator 70 05/10/17 12:43 97 18 70 05/10/17 12:30 103 18 90/34 99 Mechanical Ventilator 70 05/10/17 12:15 104 21 94/25 99 Mechanical Ventilator 70 05/10/17 12:00 98.9 95 18 87/31 99 Mechanical Ventilator 70 05/10/17 12:00 87/25 05/10/17 12:00 70 05/10/17 12:00 96 05/10/17 11:53 108/35 05/10/17 11:45 100 18 108/35 99 Mechanical Ventilator 70 05/10/17 11:30 100 18 92/36 98 Mechanical Ventilator 70 05/10/17 11:26 107 18 100 Mechanical Ventilator 70 05/10/17 11:16 114 18 99 Mechanical Ventilator 70 05/10/17 11:15 101 18 95/29 99 Mechanical Ventilator 70 05/10/17 11:01 101 18 70 05/10/17 11:00 101/26 05/10/17 11:00 102 18 101/26 99 Mechanical Ventilator 70 05/10/17 10:45 102 18 101/24 99 Mechanical Ventilator 70 05/10/17 10:30 103 18 103/28 99 Mechanical Ventilator 70 05/10/17 10:15 105 18 92/32 99 Mechanical Ventilator 70 05/10/17 10:00 107 18 101/26 99 Mechanical Ventilator 70 05/10/17 10:00 101/26 05/10/17 09:45 106 18 107/30 99 Mechanical Ventilator 70 05/10/17 09:30 103 18 113/78 99 Mechanical Ventilator 70 05/10/17 09:25 108 18 70 05/10/17 09:15 103 18 96/37 99 Mechanical Ventilator 70 05/10/17 09:00 102 18 98/25 100 Mechanical Ventilator 70 05/10/17 09:00 98/25 05/10/17 08:45 102 18 91/49 100 Mechanical Ventilator 70 05/10/17 08:30 103 18 89/25 100 Mechanical Ventilator 70 05/10/17 08:15 103 18 103/27 100 Mechanical Ventilator 70 05/10/17 08:00 70 05/10/17 08:00 98.6 105 16 97/20 100 Mechanical Ventilator 70 05/10/17 08:00 108 05/10/17 08:00 83/24 05/10/17 07:45 107 18 98/30 100 Mechanical Ventilator 70 05/10/17 07:30 109 18 87/71 100 Mechanical Ventilator 70 05/10/17 07:15 107 18 98/27 100 Mechanical Ventilator 70 05/10/17 07:00 107 19 100/35 98 Mechanical Ventilator 70 05/10/17 06:58 108 18 100 Mechanical Ventilator 70 05/10/17 06:55 107 18 70 05/10/17 06:30 106 18 104/30 98 Mechanical Ventilator 70 05/10/17 06:15 107 18 108/43 98 Mechanical Ventilator 70 05/10/17 06:08 78/46 05/10/17 06:00 109 18 78/45 98 Mechanical Ventilator 70 05/10/17 05:48 98.6 117 18 123/77 98 Mechanical Ventilator 70 05/10/17 05:47 70 05/10/17 05:46 117 05/10/17 05:00 104 18 111/40 98 Mechanical Ventilator 15.0 05/10/17 05:00 98.4 104 18 111/40 98 Mechanical Ventilator 15.0 70 05/10/17 04:42 104 19 70 05/10/17 04:30 104 18 122/41 98 Mechanical Ventilator 15.0 05/10/17 04:20 121/36 05/10/17 04:00 105 16 117/43 99 Mechanical Ventilator 15.0 05/10/17 03:44 103 18 113/42 99 Mechanical Ventilator 15.0 05/10/17 03:30 103 18 113/42 99 Mechanical Ventilator 15.0 05/10/17 03:00 98.4 102 18 115/43 99 Mechanical Ventilator 15.0 05/10/17 02:49 99 18 70 05/10/17 02:40 114/38 05/10/17 02:30 99 18 110/42 100 Mechanical Ventilator 15.0 05/10/17 02:20 116/34 05/10/17 02:00 96.1 98 15 114/46 99 Mechanical Ventilator 15.0 05/10/17 01:40 107/41 05/10/17 01:30 98 18 102/43 100 Mechanical Ventilator 15.0 05/10/17 01:00 95.4 05/10/17 01:00 97 21 120/42 100 Mechanical Ventilator 15.0 05/10/17 00:35 80 05/10/17 00:35 95 18 80 05/10/17 00:30 94 19 124/38 100 Mechanical Ventilator 15.0 05/10/17 00:00 89 18 124/43 100 Mechanical Ventilator 15.0 05/09/17 23:42 86 14 Mechanical Ventilator 100 05/09/17 23:38 86 14 100 05/09/17 23:32 118/43 05/09/17 23:30 100 05/09/17 23:30 88 14 118/43 100 Mechanical Ventilator 15.0 05/09/17 23:27 133/41 05/09/17 23:22 110/32 05/09/17 23:17 109/35 05/09/17 23:12 105/37 05/09/17 23:07 88/20 05/09/17 23:02 95/42 05/09/17 23:00 89 16 98/39 99 Non-Rebreather 15.0 05/09/17 22:57 98/39 05/09/17 22:52 90/51 05/09/17 22:47 89/42 05/09/17 22:42 95/41 05/09/17 22:37 100/39 05/09/17 22:32 104/38 05/09/17 22:30 88 10 100/39 98 Nasal Cannula 4.0 05/09/17 22:27 92/33 05/09/17 22:22 88/33 05/09/17 22:00 87 13 83/15 96 Nasal Cannula 4.0 Height (Feet): 5 Height (Inches): 4.00 Weight (Pounds): 152 Microbiology Date/Time Source Procedure Growth Status 05/10/17 02:00 Nasal Nares Influenza Types A,B Antigen (SHAWNA) - Final Complete 05/09/17 19:05 Urine,Clean Catch Urine Culture - Preliminary NO GROWTH Resulted Laboratory Tests Test 05/10/17 05:20 05/10/17 14:00 05/10/17 14:35 05/10/17 17:15 White Blood Count 29.6 K/UL (4.8-10.8) *H Red Blood Count 3.38 M/UL (4.20-5.40) L Hemoglobin 10.4 G/DL (12.0-16.0) L Hematocrit 33.0 % (37.0-47.0) L Mean Corpuscular Volume 98 FL (80-99) Mean Corpuscular Hemoglobin 30.7 PG (27.0-31.0) Mean Corpuscular Hemoglobin Concent 31.4 G/DL (32.0-36.0) L Red Cell Distribution Width 14.3 % (11.6-14.8) Platelet Count 474 K/UL (150-450) H Mean Platelet Volume 5.3 FL (6.5-10.1) L Neutrophils (%) (Auto) % (45.0-75.0) Lymphocytes (%) (Auto) % (20.0-45.0) Monocytes (%) (Auto) % (1.0-10.0) Eosinophils (%) (Auto) % (0.0-3.0) Basophils (%) (Auto) % (0.0-2.0) Differential Total Cells Counted 100 Neutrophils % (Manual) 82 % (45-75) H Lymphocytes % (Manual) 9 % (20-45) L Monocytes % (Manual) 3 % (1-10) Eosinophils % (Manual) 0 % (0-3) Basophils % (Manual) 0 % (0-2) Band Neutrophils 6 % (0-8) Nucleated Red Blood Cells 1 /100 WBC Platelet Estimate Adequate Platelet Morphology Normal Hypochromasia 1+ Anisocytosis 1+ Erythrocyte Sedimentation Rate 94 MM/HR (0-42) H Reticulocyte Count 1.8 % (0.0-2.0) Sodium Level 135 MMOL/L (136-145) L Potassium Level 4.6 MMOL/L (3.5-5.1) Chloride Level 97 MMOL/L (98-107) L Carbon Dioxide Level 21 MMOL/L (21-32) Anion Gap 17 mmol/L (5-15) H Blood Urea Nitrogen 78 mg/dL (7-18) H Creatinine 1.8 MG/DL (0.55-1.30) H Estimat Glomerular Filtration Rate mL/min (>60) Glucose Level 65 MG/DL (74-106) L Calcium Level 10.2 MG/DL (8.5-10.1) H Phosphorus Level 4.8 MG/DL (2.5-4.9) Magnesium Level 1.8 MG/DL (1.8-2.4) Prothrombin Time 12.0 SEC (9.30-11.50) H Prothromb Time International Ratio 1.1 (0.9-1.1) Activated Partial Thromboplast Time 37 SEC (23-33) H Uric Acid 10.3 MG/DL (2.6-7.2) H Iron Level 16 ug/dL (50-175) L Total Iron Binding Capacity 140 ug/dL (250-450) L Percent Iron Saturation 11 % (15-50) L Unsaturated Iron Binding 124 ug/dL (112-346) Lactate Dehydrogenase 131 U/L (81-234) Total Creatine Kinase 91 U/L (26-308) Vitamin B12 Level > 2000 PG/ML (193-986) H Folate 7.5 NG/ML (8.6-58.9) L Urine Color Pale yellow Urine Appearance Slightly cloudy Urine pH 5 (4.5-8.0) Urine Specific [place] 1.010 (1.005-1.035) Urine Protein 2+ (NEGATIVE) H Urine Glucose (UA) Negative (NEGATIVE) Urine Ketones 2+ (NEGATIVE) H Urine Occult Blood 2+ (NEGATIVE) H Urine Nitrite Negative (NEGATIVE) Urine Bilirubin Negative (NEGATIVE) Urine Urobilinogen Normal MG/DL (0.0-1.0) Urine Leukocyte Esterase 2+ (NEGATIVE) H Urine RBC 2-4 /HPF (0 - 2) H Urine WBC 5-10 /HPF (0 - 2) H Urine Squamous Epithelial Cells Few /LPF (NONE/OCC) Urine Amorphous Sediment Few /LPF (NONE) H Urine Bacteria Moderate /HPF (NONE) H Urine Yeast Few /HPF (NONE) H Urine Eosinophils None seen Urine Random Sodium 12 MEQ/L (20-110) L Urine Potassium Timed 27 mmol/L (12-62) Random Vancomycin Level 8.7 ug/mL Current Medications Medications (Trade) Dose Ordered Sig/Jacque Route PRN Reason Start Time Stop Time Status Last Admin Dose Admin Acetaminophen (Tylenol) 650 mg Q4H PRN RECTAL FEVER 05/10/17 01:45 06/09/17 01:44 Acetaminophen (Tylenol) 650 mg Q4H PRN RECTAL Mild Pain (Pain Scale 1-3) 05/10/17 01:45 06/09/17 01:44 Bisacodyl (Dulcolax) 10 mg DAILYPRN PRN RECTAL Constipation 05/10/17 01:45 06/09/17 01:44 Clotrimazole (Lotrimin) 1 applic EVERY 12 HOURS TOPIC 05/10/17 15:00 06/09/17 14:59 05/10/17 18:22 Dextrose (Dextrose 50%) STAT PRN IV Hypoglycemia 05/10/17 01:45 06/09/17 01:44 Dextrose/Sodium Chloride 1,000 ml @ 150 mls/hr Q6H40M IV 05/10/17 14:30 06/09/17 14:29 05/10/17 20:40 Docusate Sodium (Colace) 100 mg EVERY 12 HOURS ORAL 05/10/17 09:00 06/09/17 08:59 05/10/17 08:34 Heparin Sodium (Porcine) (Heparin 5000 units/ml) 5,000 units EVERY 12 HOURS SUBQ 05/10/17 09:00 06/09/17 08:59 05/10/17 08:40 Ipratropium [place] (Atrovent) 500 mcg Q4H PRN HHN Shortness of Breath 05/10/17 01:45 05/15/17 01:44 Ipratropium [place] (Atrovent) 500 mcg Q4HRT HHN 05/10/17 07:00 05/15/17 06:59 05/10/17 18:58 Norepinephrine Bitartrate 8 mg/ Dextrose 254 ml @ 0 mls/hr Q24H IV 05/10/17 09:30 06/09/17 05:59 05/10/17 18:23 Ondansetron HCl (Zofran) 4 mg Q6H PRN IVP Nausea & Vomiting 05/10/17 01:45 06/09/17 01:44 Pantoprazole (Protonix) 40 mg Q12HR IV 05/10/17 21:00 06/09/17 20:59 Piperacillin Sod/ Tazobactam Sod 3.375 gm/Sodium Chloride 110 ml @ 27.5 mls/hr Q12H IVPB 05/10/17 08:00 05/17/17 07:59 05/10/17 20:25 Polyethylene Glycol (Miralax) 17 gm DAILYPRN PRN ORAL Constipation 05/10/17 01:45 06/09/17 01:44 Vancomycin HCl (Vanco rx to dose) 1 ea DAILY PRN MISC Per rx protocol 05/10/17 01:45 06/09/17 01:44 TIERA PRADO May 10, 2017 21:28
--- NOTE | 2017-05-10 23:30 | Consultation ---
DATE OF CONSULTATION: 05/10/2017 INFECTIOUS DISEASE CONSULTATION CONSULTING PHYSICIAN: Agusto Orr M.D. ATTENDING PHYSICIAN: María Bustamante M.D. REFERRING PHYSICIAN: Prachi Mejia M.D. I was asked by Dr. Velarde to see this patient. REASON FOR CONSULTATION: Sepsis shock, leukocytosis, fevers and pneumonia. PATIENT'S CHIEF COMPLAINT COMING INTO THE HOSPITAL: Altered mental status, septic shock. HISTORY OF PRESENT ILLNESS: This is an 86-year-old female, who cannot give any history. The patient presents to [facility] with altered mental status. The patient is in septic shock, on pressors, on a vent. She has pneumonia on chest x-ray. The patient is at high risk for C. diff. She has significantly elevated white count and fever. She was hypothermic initially. Cultures are pending at this time. So far, urine culture is negative, and influenza screen is negative. The patient is on Zosyn and vancomycin. I am adding Flagyl. She is currently on pressors. MAR was noted. Orders were noted. Notes were reviewed. Case was discussed with RN. PAST MEDICAL HISTORY: The patient has a past medical history of cardiac disease, history of diabetes, hypertension, asthma, history of Alzheimer's, history of dementia, history of seizures, history of memory loss, and history of CVA. MEDICATIONS: Upon reviewing the MAR, she is on the following medications: She is on pressors, norepinephrine. She is on Zosyn and Flagyl. She is on vancomycin. She is on Levophed. She is on Aredia or pamidronate. She is on acetaminophen. She is on bisacodyl and clotrimazole cream. She is on docusate. She is on heparin. She is on breathing treatments, DuoNeb, morphine, pantoprazole, polyethylene, and IV fluids. ALLERGIES: No known drug allergies. SOCIAL HISTORY: Per the records, no mention of smoking, alcohol, or drug abuse. FAMILY HISTORY: Per the records, no mention of exposure to tuberculosis or cancer. REVIEW OF SYSTEMS: Currently, she cannot give any review of systems. She is in respiratory failure, on vent. She has generalized weakness. She was hypothermic, now has fevers, low-grade fevers. The patient is on a vent. She is on pressors. No nausea, vomiting or diarrhea. She has a rash. GASTROINTESTINAL: No nausea, vomiting, or diarrhea. GENITOURINARY: She has a Camacho. CARDIAC: She is on pressors. PULMONARY: On a vent. NEUROLOGIC: No seizures. SKIN: She has rashes. Review of systems is otherwise limited as patient is poorly responsive overall. PHYSICAL EXAMINATION: VITAL SIGNS: Temperature 99.5 degrees, initial temperature 94.4 degrees, pulse rate 104, respiratory rate 18, saturation 98% on FiO2 of 70%. Currently, she is on pressors. Blood pressure 122/40 and 116/77 on pressors, FiO2 70%. GENERAL: Lethargic, weak. HEAD AND NECK: Orally intubated. Eye exam, no icterus. Normocephalic. HEART: Regular. No rubs, gallops, or murmur. ABDOMEN: Soft. Positive bowel sounds. LUNGS: Bilateral rhonchi and rales. Decreased breath sounds and crackles. SKIN: She has a rash on her back area. It is unclear if this is a fungal rash versus a drug rash. Her wounds were reviewed. MUSCULOSKELETAL: No effusion. Legs are without cellulitis. PERIPHERAL VASCULAR: No cyanosis. GENITOURINARY: She has a Camacho. LINES: Line sites without phlebitis. She has a new central line. NEUROLOGIC: Generalized weakness. Poorly responsive. LABORATORY AND DIAGNOSTIC DATA: Laboratory data is as follows. UA had 2 to 4 white blood cells. Urine culture is negative. Influenza screen is negative. Creatinine is 1.8. White count 29.7 and hemoglobin 10.4. Cultures are pending. Imaging studies, chest x-ray shows pulmonary edema. Unclear if the patient has infiltrates. Initial chest x-ray showed a right lower lobe consolidation or infiltrate. ASSESSMENT AND PLAN: 1. The patient is in septic shock. The patient likely has pneumonia, respiratory failure, right lower lobe pneumonia. The patient has high risk for aspiration healthcare acquired pneumonia versus community-acquired pneumonia. The patient has leukocytosis, fevers, initial hypothermia, and systemic inflammatory response syndrome criteria. Continue vancomycin and Zosyn. Add Flagyl to cover Clostridium difficile. Check cultures, labs, chest x-ray, and Clostridium difficile. Continue vancomycin, Zosyn and Flagyl for now. Continue supportive care and intensive care unit care. 2. Septic shock, on pressors. 3. Acute kidney injury, elevated creatinine. 4. Hypertension. 5. Diabetes. 6. Asthma. 7. Alzheimer's with some dementia. 8. Cerebrovascular accident. 9. Aspiration risk. 10. Anemia. 11. Seizures. 12. Memory loss. 13. Past medical history as noted. 14. No allergy. 15. Social history is negative. 16. Family history noncontributory. 17. Case discussed with RN. 18. MAR was noted. 19. Continue treatment per primary consultants. 20. Skin care protocol. 21. Possible fungal rash. Continue cream. 22. Questionable drug rash. 23. Continue supportive care. 24. Critical condition. 25. Notes were reviewed. Agusto Orr M.D. DR: SABINO JOB#: [id number] CC:
[2017-05-11] VITALS (61 sets, daily range): BP systolic 73–155; BP diastolic 32–107
[2017-05-11] MEDS: Ipratropium 0.02% Inh Soln 2.5ml UD HHN SCH ×6 (03:14→23:44)
[2017-05-11] MEDS: D5NS 1,000 ML IV SCH ×3 (05:05→23:54)
[2017-05-11 05:34] LABS: HEMATOCRIT 26.8 % (37.0-47.0); HEMOGLOBIN 9.1 G/DL (12.0-16.0); MEAN CORPUSCULAR VOLUME 95 FL (80-99); PLATELET COUNT 402 K/UL (150-450); RED BLOOD COUNT 2.81 M/UL (4.20-5.40); RED CELL DISTRIBUTION WIDTH 14.3 % (11.6-14.8)
[2017-05-11 05:54] LABS: AMMONIA 23 umol/L (11-32)
[2017-05-11 06:12] LABS: ALANINE AMINOTRANSFERASE 9 U/L (12-78); ALBUMIN 1.6 G/DL (3.4-5.0); ALBUMIN/GLOBULIN RATIO 0.5 (1.0-2.7); ALKALINE PHOSPHATASE 118 U/L (46-116); ANION GAP 9 mmol/L (5-15); ASPARTATE AMINO TRANSFERASE 26 U/L (15-37); BILIRUBIN,TOTAL 0.4 MG/DL (0.2-1.0); BLOOD UREA NITROGEN 43 mg/dL (7-18); CALCIUM 9.8 MG/DL (8.5-10.1); CARBON DIOXIDE 26 MMOL/L (21-32); CHLORIDE 108 MMOL/L (98-107); CHOLESTEROL 94 MG/DL (< 200); CREATININE 0.9 MG/DL (0.55-1.30); HDL CHOLESTEROL 23 MG/DL (40-60); PHOSPHORUS 2.2 MG/DL (2.5-4.9); POTASSIUM 3.6 MMOL/L (3.5-5.1); SODIUM 143 MMOL/L (136-145); TRIGLYCERIDES 64 MG/DL (30-150)
--- NOTE | 2017-05-11 06:12 | General Progress Note ---
Progress Note Progress Note Surgery: left subclavian catheter in good positioning. line clean. dressings clean and dry. no issues. all 3 ports functional. Bert Mauro May 11, 2017 06:12
[2017-05-11 06:14] LABS: WHITE BLOOD COUNT 29.5 K/UL (4.8-10.8)
[2017-05-11 06:46] LABS: CREATINE KINASE 96 U/L (26-308); FERRITIN 277 NG/ML (8-388); GAMMA GLUTAMYL TRANSPEPTIDASE 15 U/L (5-85)
[2017-05-11] MEDS: Pantoprazole Inj IV SCH ×2 (08:44→20:49)
[2017-05-11] MEDS: Zosyn 3.375gm q12h **Extended infusion IVPB SCH ×4 (08:44→20:48)
[2017-05-11] MEDS: Heparin 5000 units/ml inj SUBQ SCH ×2 (08:46→20:51)
[2017-05-11] MEDS: Docusate 100mg/10ml Liq ORAL SCH ×2 (09:54→20:49)
--- NOTE | 2017-05-11 10:44 | Diagnostic Imaging Report ---
Indication: Abnormal renal function Technique: Multiplanar grayscale and color Doppler imaging of the kidneys and bladder Comparison: None Findings: Camacho catheter decompresses the bladder, limiting its evaluation. Right kidney not visualized due to overlying bowel gas and patient's body habitus and inability to cooperate with decubitus positioning. Left kidney measures 9.5 cm in length. It demonstrates normal parenchymal thickness and echogenicity. A cystic structure in the region of the renal hilum measures 2.2 cm. This may represent a parapelvic cyst. There may be some fullness of the collecting system and mild hydronephrosis is not entirely excluded. Impression: Limited exam. Right kidney not visualized due to overlying bowel gas, patient's body habitus and inability to cooperate with decubitus positioning. Left renal parenchymal echogenicity appears within normal limits. Probable parapelvic cyst on the left. The degree of collecting system dilatation/mild hydronephrosis cannot entirely be excluded given limitations of the exam. Further evaluation with CT recommended Camacho catheter decompresses the bladder, limiting its evaluation.
[2017-05-11] MEDS ORDERED: Potassium Phosphate 30 MM in NS 275 ML IV ONE (11:00)
--- NOTE | 2017-05-11 11:19 | Pulmonolgy Critical Care Note ---
Critical Care - Asmt/Plan Problems: (1) Acute respiratory failure with hypoxia and hypercapnia (2) Acute encephalopathy (3) Sepsis (4) Aspiration pneumonia Respiratory: monitor respiratory rate, adjust FIO2 Cardiac: stop pressors, continue to monitor HR/BP Renal: F/U I&O, check electrolytes Infectious Disease: check cultures Gastrointestinal: continue feedings/current rate, hold feedings Endocrine: check TSH, check HgA1C, continue sliding scale insulin Hematologic: transfuse if hgb<8.5 Neurologic: keep patient comfortable Prophylaxis: Protonix, Heparin Notes Reviewed: claims account specialist, cardio, renal Critical Care - Objective Last 24 Hour Vital Signs Date Time Temp Pulse Resp B/P (MAP) Pulse Ox O2 Delivery O2 Flow Rate FiO2 05/11/17 10:47 91 19 99 Mechanical Ventilator 60 05/11/17 10:38 92 18 99 Mechanical Ventilator 60 05/11/17 10:36 104 20 60 05/11/17 09:03 92 22 60 05/11/17 08:00 70 05/11/17 08:00 144 05/11/17 07:17 60 05/11/17 07:05 98 18 99 Mechanical Ventilator 60 05/11/17 06:58 94 20 70 05/11/17 06:57 93 25 99 Mechanical Ventilator 70 05/11/17 05:12 97 18 70 05/11/17 04:00 70 05/11/17 04:00 98.2 96 17 117/54 100 Mechanical Ventilator 70 05/11/17 04:00 94 05/11/17 03:30 97 18 87/45 100 Mechanical Ventilator 70 05/11/17 03:22 101 18 100 Mechanical Ventilator 70 05/11/17 03:15 92 18 100 Mechanical Ventilator 70 05/11/17 03:14 84 18 70 05/11/17 03:00 100 17 147/45 100 Mechanical Ventilator 70 05/11/17 02:30 98 18 125/102 100 Mechanical Ventilator 70 05/11/17 02:04 119/50 05/11/17 02:00 83 18 121/45 99 Mechanical Ventilator 70 05/11/17 01:30 88 18 102/68 100 Mechanical Ventilator 70 05/11/17 01:11 106 19 70 05/11/17 01:00 107 18 89/33 99 Mechanical Ventilator 70 05/11/17 00:30 105 18 127/50 100 Mechanical Ventilator 70 05/11/17 00:00 100.5 105 17 119/50 100 Mechanical Ventilator 70 05/11/17 00:00 100.5 105 17 119/50 100 Mechanical Ventilator 70 05/11/17 00:00 70 05/11/17 00:00 104 05/10/17 23:30 103 18 116/83 100 Mechanical Ventilator 70 05/10/17 23:07 110 18 99 Mechanical Ventilator 70 05/10/17 23:01 107 18 99 Mechanical Ventilator 70 05/10/17 23:00 107 18 132/53 99 Mechanical Ventilator 70 05/10/17 23:00 107 18 132/53 99 Mechanical Ventilator 70 05/10/17 23:00 109 18 70 05/10/17 22:30 105 18 129/46 99 Mechanical Ventilator 70 05/10/17 22:00 102 17 119/45 99 Mechanical Ventilator 70 05/10/17 21:30 104 18 124/54 99 Mechanical Ventilator 70 05/10/17 21:00 105 18 125/47 99 Mechanical Ventilator 70 05/10/17 20:50 104 18 70 05/10/17 20:30 104 18 111/39 99 Mechanical Ventilator 70 05/10/17 20:00 100 05/10/17 20:00 70 05/10/17 20:00 100.2 100 18 111/34 99 Mechanical Ventilator 70 05/10/17 19:30 98 18 73/38 99 Mechanical Ventilator 70 05/10/17 19:06 94 18 99 Mechanical Ventilator 70 05/10/17 19:00 98 18 123/64 99 Mechanical Ventilator 70 05/10/17 18:59 92 18 98 Mechanical Ventilator 70 05/10/17 18:58 92 18 70 05/10/17 18:45 91 18 116/77 99 Mechanical Ventilator 70 05/10/17 18:30 82 18 122/40 97 Mechanical Ventilator 70 05/10/17 18:23 106/37 05/10/17 18:15 93 17 106/37 99 Mechanical Ventilator 70 05/10/17 18:00 103/31 05/10/17 18:00 94 18 107/32 99 Mechanical Ventilator 70 05/10/17 17:45 97 18 103/31 99 Mechanical Ventilator 70 05/10/17 17:30 100 18 110/32 99 Mechanical Ventilator 70 05/10/17 17:30 99 18 70 05/10/17 17:15 108 19 124/31 98 Mechanical Ventilator 70 05/10/17 17:00 98 18 110/35 98 Mechanical Ventilator 70 05/10/17 17:00 110/35 05/10/17 16:45 100 18 111/39 98 Mechanical Ventilator 70 05/10/17 16:30 101 18 109/40 98 Mechanical Ventilator 70 05/10/17 16:15 103 18 109/38 98 Mechanical Ventilator 70 05/10/17 16:00 70 05/10/17 16:00 105 05/10/17 16:00 111/36 05/10/17 16:00 99.5 102 18 111/36 98 Mechanical Ventilator 70 05/10/17 15:45 103 21 114/36 99 Mechanical Ventilator 70 05/10/17 15:35 104 18 98 Mechanical Ventilator 70 05/10/17 15:30 106 21 110/40 99 Mechanical Ventilator 70 05/10/17 15:25 104 18 98 Mechanical Ventilator 70 05/10/17 15:20 104 18 70 05/10/17 15:15 106 21 116/41 97 Mechanical Ventilator 70 05/10/17 15:00 105 21 124/44 97 Mechanical Ventilator 70 05/10/17 15:00 124/44 05/10/17 14:45 103 21 128/46 98 Mechanical Ventilator 70 05/10/17 14:30 89 21 93/37 96 Mechanical Ventilator 70 05/10/17 14:15 91 21 60/20 97 Mechanical Ventilator 70 05/10/17 14:00 102 21 103/31 98 Mechanical Ventilator 70 05/10/17 14:00 103/31 05/10/17 13:45 103 21 101/31 98 Mechanical Ventilator 70 05/10/17 13:30 103 21 100/31 99 Mechanical Ventilator 70 05/10/17 13:15 109 21 108/35 99 Mechanical Ventilator 70 05/10/17 13:00 109 18 113/35 99 Mechanical Ventilator 70 05/10/17 13:00 113/35 05/10/17 12:45 106 18 89/39 99 Mechanical Ventilator 70 05/10/17 12:43 97 18 70 05/10/17 12:30 103 18 90/34 99 Mechanical Ventilator 70 05/10/17 12:15 104 21 94/25 99 Mechanical Ventilator 70 05/10/17 12:00 98.9 95 18 87/31 99 Mechanical Ventilator 70 05/10/17 12:00 87/25 05/10/17 12:00 70 05/10/17 12:00 96 05/10/17 11:53 108/35 05/10/17 11:45 100 18 108/35 99 Mechanical Ventilator 70 05/10/17 11:30 100 18 92/36 98 Mechanical Ventilator 70 05/10/17 11:26 107 18 100 Mechanical Ventilator 70 05/10/17 11:16 114 18 99 Mechanical Ventilator 70 Status: sedated Condition: critical HEENT: atraumatic Neck: full ROM Lungs: chest wall tender Heart: HR/BP stable, HR/BP unstable Abdomen: soft, non-tender, active bowel sounds, feeding tube Extremities: no C/C/E Decubiti: location Micro: Microbiology Date/Time Source Procedure Growth Status 05/09/17 20:10 Blood Blood Culture - Preliminary NO GROWTH AFTER 24 HOURS Resulted 05/09/17 19:55 Blood Blood Culture - Preliminary NO GROWTH AFTER 24 HOURS Resulted 05/10/17 02:00 Nasal Nares Influenza Types A,B Antigen (SHAWNA) - Final Complete 05/09/17 18:47 Nasal Nares MRSA Culture - Final NO METHICILLIN RESISTANT STAPH AUREUS... Complete 05/10/17 14:35 Urine,Clean Catch Urine Culture - Preliminary NO GROWTH Resulted 05/09/17 19:05 Urine,Clean Catch Urine Culture - Preliminary NO GROWTH AFTER 24 HOURS Resulted 05/10/17 10:00 Sacral Wound Gram Stain - Final Resulted 05/10/17 10:00 Sacral Wound Wound Culture Pending Resulted 05/09/17 18:47 Rectum VRE Culture - Final Enterococcus Faecium - Vre Enterococcus Faecalis - Vre Complete Critical Care - Subjective ROS Limited/Unobtainable: Yes ICU Day: 3 Condition: critical EKG Rhythm: Sinus Bradycardia FI02: 60 Vent Support Breath Rate: 18 Vent Support Mode: AC Vent Tidal Volume: 500 Sputum Amount: Small PEEP: 0.0 PIP: 20 I&O: Intake and Output 05/10/17 05/11/17 19:00 07:00 Intake Total 1152.69 ml 342.88 ml Output Total 1315 ml 1500 ml Balance -162.31 ml -1157.12 ml Intake IV Total 1102.69 ml 342.88 ml Other 50 ml Output Urine Total 1315 ml 1500 ml CXR: No change ET-Tube: 7.5 ET Position: 22 Labs: Laboratory Tests Test 05/10/17 14:00 05/10/17 14:35 05/10/17 17:15 05/11/17 04:00 Prothrombin Time 12.0 SEC (9.30-11.50) H Prothromb Time International Ratio 1.1 (0.9-1.1) Activated Partial Thromboplast Time 37 SEC (23-33) H Uric Acid 10.3 MG/DL (2.6-7.2) H Iron Level 16 ug/dL (50-175) L Total Iron Binding Capacity 140 ug/dL (250-450) L Percent Iron Saturation 11 % (15-50) L Unsaturated Iron Binding 124 ug/dL (112-346) Lactate Dehydrogenase 131 U/L (81-234) Total Creatine Kinase 91 U/L (26-308) Vitamin B12 Level > 2000 PG/ML (193-986) H Folate 7.5 NG/ML (8.6-58.9) L Urine Color Pale yellow Urine Appearance Slightly cloudy Urine pH 5 (4.5-8.0) Urine Specific [place] 1.010 (1.005-1.035) Urine Protein 2+ (NEGATIVE) H Urine Glucose (UA) Negative (NEGATIVE) Urine Ketones 2+ (NEGATIVE) H Urine Occult Blood 2+ (NEGATIVE) H Urine Nitrite Negative (NEGATIVE) Urine Bilirubin Negative (NEGATIVE) Urine Urobilinogen Normal MG/DL (0.0-1.0) Urine Leukocyte Esterase 2+ (NEGATIVE) H Urine RBC 2-4 /HPF (0 - 2) H Urine WBC 5-10 /HPF (0 - 2) H Urine Squamous Epithelial Cells Few /LPF (NONE/OCC) Urine Amorphous Sediment Few /LPF (NONE) H Urine Bacteria Moderate /HPF (NONE) H Urine Yeast Few /HPF (NONE) H Urine Eosinophils None seen Urine Random Sodium 12 MEQ/L (20-110) L Urine Potassium Timed 27 mmol/L (12-62) Random Vancomycin Level 8.7 ug/mL Arterial Blood pH 7.510 (7.350-7.450) Arterial Blood Partial Pressure CO2 32.0 mmHg (35.0-45.0) L Arterial Blood Partial Pressure O2 103.5 mmHg (75.0-100.0) H Arterial Blood HCO3 25.3 mmol/L (22.0-26.0) Arterial Blood Oxygen Saturation 97.9 % (92.0-98.0) Arterial Blood Base Excess 2.5 Kelvin Test Positive Test 05/11/17 04:15 White Blood Count 29.5 K/UL (4.8-10.8) *H Red Blood Count 2.81 M/UL (4.20-5.40) L Hemoglobin 9.1 G/DL (12.0-16.0) L Hematocrit 26.8 % (37.0-47.0) L Mean Corpuscular Volume 95 FL (80-99) Mean Corpuscular Hemoglobin 32.3 PG (27.0-31.0) H Mean Corpuscular Hemoglobin Concent 33.9 G/DL (32.0-36.0) Red Cell Distribution Width 14.3 % (11.6-14.8) Platelet Count 402 K/UL (150-450) Mean Platelet Volume 5.1 FL (6.5-10.1) L Neutrophils (%) (Auto) % (45.0-75.0) Lymphocytes (%) (Auto) % (20.0-45.0) Monocytes (%) (Auto) % (1.0-10.0) Eosinophils (%) (Auto) % (0.0-3.0) Basophils (%) (Auto) % (0.0-2.0) Differential Total Cells Counted 100 Neutrophils % (Manual) 89 % (45-75) H Lymphocytes % (Manual) 9 % (20-45) L Monocytes % (Manual) 1 % (1-10) Eosinophils % (Manual) 0 % (0-3) Basophils % (Manual) 1 % (0-2) Band Neutrophils 0 % (0-8) Platelet Estimate Adequate Platelet Morphology Normal Hypochromasia 2+ Sodium Level 143 MMOL/L (136-145) Potassium Level 3.6 MMOL/L (3.5-5.1) Chloride Level 108 MMOL/L (98-107) H Carbon Dioxide Level 26 MMOL/L (21-32) Anion Gap 9 mmol/L (5-15) Blood Urea Nitrogen 43 mg/dL (7-18) H Creatinine 0.9 MG/DL (0.55-1.30) Estimat Glomerular Filtration Rate mL/min (>60) Glucose Level 181 MG/DL (74-106) #H Hemoglobin A1c 5.6 % (4.3-6.0) Uric Acid 7.0 MG/DL (2.6-7.2) Calcium Level 9.8 MG/DL (8.5-10.1) Phosphorus Level 2.2 MG/DL (2.5-4.9) L Magnesium Level 1.5 MG/DL (1.8-2.4) L Ferritin 277 NG/ML (8-388) Total Bilirubin 0.4 MG/DL (0.2-1.0) Gamma Glutamyl Transpeptidase 15 U/L (5-85) Aspartate Amino Transf (AST/SGOT) 26 U/L (15-37) Alanine Aminotransferase (ALT/SGPT) 9 U/L (12-78) L Alkaline Phosphatase 118 U/L (46-116) H Ammonia 23 umol/L (11-32) Total Creatine Kinase 96 U/L (26-308) Troponin I 0.028 ng/mL (0.000-0.056) C-Reactive Protein, Quantitative 35.6 mg/dL (0.00-0.90) H Pro-B-Type Natriuretic Peptide 2957 pg/mL (0-125) H Total Protein 5.1 G/DL (6.4-8.2) L Albumin 1.6 G/DL (3.4-5.0) L Globulin 3.5 g/dL Albumin/Globulin Ratio 0.5 (1.0-2.7) L Triglycerides Level 64 MG/DL (30-150) Cholesterol Level 94 MG/DL (< 200) LDL Cholesterol 47 mg/dL (<100) HDL Cholesterol 23 MG/DL (40-60) L Cholesterol/HDL Ratio 4.1 (3.3-4.4) Thyroid Stimulating Hormone (TSH) 2.050 uiU/mL (0.358-3.740) DWAYNE CHERY May 11, 2017 11:19
--- NOTE | 2017-05-11 16:11 | Nephrology Progress Note ---
Assessment/Plan Problem List: (1) Acute respiratory failure with hypoxia and hypercapnia (2) Septic shock (3) Renal insufficiency Assessment acute renal failure resolving ? CKD underlying Acute respiratory failure septic shock sever Hypercalcemia, corrected for low Albumin HypoAlbuminemia Anemia Dementia Plan Plan: monitor serum Ca 2D echo- pending Hydrate hemodynamic support Aredia given 05/10 monitor renal parameters avoid nephrotoxics per orders Subjective ROS Limited/Unobtainable: No Constitutional: Reports: malaise Objective Objective Last 24 Hour Vital Signs Date Time Temp Pulse Resp B/P (MAP) Pulse Ox O2 Delivery O2 Flow Rate FiO2 05/11/17 15:15 77 18 112/41 100 Mechanical Ventilator 70 05/11/17 15:00 74 18 120/43 100 Mechanical Ventilator 70 05/11/17 14:50 75 18 99 Mechanical Ventilator 50 05/11/17 14:45 76 18 125/50 99 Mechanical Ventilator 70 05/11/17 14:41 80 18 99 Mechanical Ventilator 50 05/11/17 14:39 75 18 50 05/11/17 14:30 82 18 107/45 100 Mechanical Ventilator 70 05/11/17 14:15 76 18 104/39 99 Mechanical Ventilator 70 05/11/17 14:00 74 18 105/35 99 Mechanical Ventilator 70 05/11/17 13:45 76 19 98/38 99 Mechanical Ventilator 70 05/11/17 13:30 77 19 103/51 99 Mechanical Ventilator 70 05/11/17 13:15 78 18 102/41 100 Mechanical Ventilator 70 05/11/17 13:00 80 20 103/44 100 Mechanical Ventilator 70 05/11/17 12:45 82 18 111/44 100 Mechanical Ventilator 70 05/11/17 12:38 79 18 50 05/11/17 12:30 80 18 106/36 99 Mechanical Ventilator 70 05/11/17 12:15 77 18 102/40 100 Mechanical Ventilator 70 05/11/17 12:01 50 05/11/17 12:00 50 05/11/17 12:00 85 05/11/17 12:00 98.6 76 18 102/32 100 Mechanical Ventilator 70 05/11/17 11:45 78 18 108/40 100 Mechanical Ventilator 70 05/11/17 11:34 123/52 05/11/17 11:30 77 18 107/39 100 Mechanical Ventilator 70 05/11/17 11:15 84 19 123/52 100 Mechanical Ventilator 70 05/11/17 11:00 96 18 120/54 100 Mechanical Ventilator 70 05/11/17 10:47 91 19 99 Mechanical Ventilator 60 05/11/17 10:45 91 18 129/40 100 Mechanical Ventilator 70 05/11/17 10:38 92 18 99 Mechanical Ventilator 60 05/11/17 10:36 104 20 60 05/11/17 10:30 96 18 108/52 100 Mechanical Ventilator 70 05/11/17 10:15 96 20 122/44 100 Mechanical Ventilator 70 05/11/17 10:00 105 20 123/79 100 Mechanical Ventilator 70 05/11/17 09:45 98 20 116/56 100 Mechanical Ventilator 70 05/11/17 09:30 93 20 122/54 100 Mechanical Ventilator 70 05/11/17 09:15 93 20 125/67 100 Mechanical Ventilator 70 05/11/17 09:03 92 22 60 05/11/17 09:00 97 20 116/54 100 Mechanical Ventilator 70 05/11/17 08:45 99 21 127/52 100 Mechanical Ventilator 70 05/11/17 08:30 103 20 73/57 99 Mechanical Ventilator 70 05/11/17 08:15 98 19 105/69 99 Mechanical Ventilator 70 05/11/17 08:00 98.4 99 18 105/69 100 Mechanical Ventilator 70 05/11/17 08:00 70 05/11/17 08:00 144 05/11/17 07:45 96 19 118/48 100 Mechanical Ventilator 70 05/11/17 07:30 85 18 129/107 100 Mechanical Ventilator 70 05/11/17 07:17 60 05/11/17 07:15 76 18 120/100 100 Mechanical Ventilator 70 05/11/17 07:05 98 18 99 Mechanical Ventilator 60 05/11/17 07:00 82 18 134/54 100 Mechanical Ventilator 70 05/11/17 06:58 94 20 70 05/11/17 06:57 93 25 99 Mechanical Ventilator 70 05/11/17 05:12 97 18 70 05/11/17 04:00 70 05/11/17 04:00 98.2 96 17 117/54 100 Mechanical Ventilator 70 05/11/17 04:00 94 05/11/17 03:30 97 18 87/45 100 Mechanical Ventilator 70 05/11/17 03:22 101 18 100 Mechanical Ventilator 70 1/12/18 03:15 92 18 100 Mechanical Ventilator 70 05/11/17 03:14 84 18 70 05/11/17 03:00 100 17 147/45 100 Mechanical Ventilator 70 05/11/17 02:30 98 18 125/102 100 Mechanical Ventilator 70 05/11/17 02:04 119/50 05/11/17 02:00 83 18 121/45 99 Mechanical Ventilator 70 05/11/17 01:30 88 18 102/68 100 Mechanical Ventilator 70 05/11/17 01:11 106 19 70 05/11/17 01:00 107 18 89/33 99 Mechanical Ventilator 70 05/11/17 00:30 105 18 127/50 100 Mechanical Ventilator 70 05/11/17 00:00 100.5 105 17 119/50 100 Mechanical Ventilator 70 05/11/17 00:00 100.5 105 17 119/50 100 Mechanical Ventilator 70 05/11/17 00:00 70 05/11/17 00:00 104 05/10/17 23:30 103 18 116/83 100 Mechanical Ventilator 70 05/10/17 23:07 110 18 99 Mechanical Ventilator 70 05/10/17 23:01 107 18 99 Mechanical Ventilator 70 05/10/17 23:00 107 18 132/53 99 Mechanical Ventilator 70 05/10/17 23:00 107 18 132/53 99 Mechanical Ventilator 70 05/10/17 23:00 109 18 70 05/10/17 22:30 105 18 129/46 99 Mechanical Ventilator 70 05/10/17 22:00 102 17 119/45 99 Mechanical Ventilator 70 05/10/17 21:30 104 18 124/54 99 Mechanical Ventilator 70 05/10/17 21:00 105 18 125/47 99 Mechanical Ventilator 70 05/10/17 20:50 104 18 70 05/10/17 20:30 104 18 111/39 99 Mechanical Ventilator 70 05/10/17 20:00 100 05/10/17 20:00 70 05/10/17 20:00 100.2 100 18 111/34 99 Mechanical Ventilator 70 05/10/17 19:30 98 18 73/38 99 Mechanical Ventilator 70 05/10/17 19:06 94 18 99 Mechanical Ventilator 70 05/10/17 19:00 98 18 123/64 99 Mechanical Ventilator 70 05/10/17 18:59 92 18 98 Mechanical Ventilator 70 05/10/17 18:58 92 18 70 05/10/17 18:45 91 18 116/77 99 Mechanical Ventilator 70 05/10/17 18:30 82 18 122/40 97 Mechanical Ventilator 70 05/10/17 18:23 106/37 05/10/17 18:15 93 17 106/37 99 Mechanical Ventilator 70 05/10/17 18:00 103/31 05/10/17 18:00 94 18 107/32 99 Mechanical Ventilator 70 05/10/17 17:45 97 18 103/31 99 Mechanical Ventilator 70 05/10/17 17:30 100 18 110/32 99 Mechanical Ventilator 70 05/10/17 17:30 99 18 70 05/10/17 17:15 108 19 124/31 98 Mechanical Ventilator 70 05/10/17 17:00 98 18 110/35 98 Mechanical Ventilator 70 05/10/17 17:00 110/35 05/10/17 16:45 100 18 111/39 98 Mechanical Ventilator 70 05/10/17 16:30 101 18 109/40 98 Mechanical Ventilator 70 05/10/17 16:15 103 18 109/38 98 Mechanical Ventilator 70 Intake and Output 05/10/17 05/11/17 19:00 07:00 Intake Total 1152.69 ml 342.88 ml Output Total 1315 ml 1500 ml Balance -162.31 ml -1157.12 ml Intake IV Total 1102.69 ml 342.88 ml Other 50 ml Output Urine Total 1315 ml 1500 ml Laboratory Tests 05/10/17 17:15: Random Vancomycin Level 8.7 05/11/17 04:00: Arterial Blood pH 7.510H, Arterial Blood Partial Pressure CO2 32.0L, Arterial Blood Partial Pressure O2 103.5H, Arterial Blood HCO3 25.3, Arterial Blood Oxygen Saturation 97.9, Arterial Blood Base Excess 2.5, Kelvin Test Positive 05/11/17 04:15: White Blood Count 29.5*H, Red Blood Count 2.81L, Hemoglobin 9.1L, Hematocrit 26.8L, Mean Corpuscular Volume 95, Mean Corpuscular Hemoglobin 32.3H, Mean Corpuscular Hemoglobin Concent 33.9, Red Cell Distribution Width 14.3, Platelet Count 402, Mean Platelet Volume 5.1L, Neutrophils (%) (Auto) , Lymphocytes (%) ( Auto) , Monocytes (%) (Auto) , Eosinophils (%) (Auto) , Basophils (%) (Auto) , Differential Total Cells Counted 100, Neutrophils % (Manual) 89H, Lymphocytes % (Manual) 9L, Monocytes % (Manual) 1, Eosinophils % (Manual) 0, Basophils % ( Manual) 1, Band Neutrophils 0, Platelet Estimate Adequate, Platelet Morphology Normal, Hypochromasia 2+, Sodium Level 143, Potassium Level 3.6, Chloride Level 108H, Carbon Dioxide Level 26, Anion Gap 9, Blood Urea Nitrogen 43H, Creatinine 0.9, Estimat Glomerular Filtration Rate , Glucose Level 181#H, Hemoglobin A1c 5.6, Uric Acid 7.0, Calcium Level 9.8, Phosphorus Level 2.2L, Magnesium Level 1.5L, Ferritin 277, Total Bilirubin 0.4, Gamma Glutamyl Transpeptidase 15, Aspartate Amino Transf (AST/SGOT) 26, Alanine Aminotransferase (ALT/SGPT) 9L, Alkaline Phosphatase 118H, Ammonia 23, Total Creatine Kinase 96, Troponin I 0.028, C-Reactive Protein, Quantitative 35.6H, Pro-B-Type Natriuretic Peptide 2957H, Total Protein 5.1L, Albumin 1.6L, Globulin 3.5, Albumin/Globulin Ratio 0.5L, Triglycerides Level 64, Cholesterol Level 94, LDL Cholesterol 47, HDL Cholesterol 23L, Cholesterol/HDL Ratio 4.1, Thyroid Stimulating Hormone (TSH) 2.050 Height (Feet): 5 Height (Inches): 4.00 Weight (Pounds): 152 General Appearance: no apparent distress EENT: other - intubated Cardiovascular: normal rate Respiratory/Chest: decreased breath sounds Abdomen: soft Objective no other changes ALYSON FLANAGAN May 11, 2017 16:11
--- NOTE | 2017-05-11 17:35 | Diagnostic Imaging Report ---
Indication: Dyspnea Technique: XRAY Chest 1v Comparison: 05/10/2018 Findings: ET tube and left subclavian central line unchanged in position. Heart size and mediastinal contours are stable. There is worsening of aeration in the right lung with increasing pleural effusion and right basilar atelectasis/consolidation. There is no pneumothorax. Persistent patchy opacities at the left base. Gastrostomy tube partially visualized. Impression: Interval worsening of aeration with increasing layering right pleural effusion and right basilar atelectasis/consolidation. Support lines and tubes unchanged
--- NOTE | 2017-05-11 18:24 | General Progress Note ---
Assessment/Plan Problem List: (1) Septic shock ICD Codes: A41.9 - Sepsis, unspecified organism; R65.21 - Severe sepsis with septic shock SNOMED: 71004933 (2) Acute respiratory failure with hypoxia and hypercapnia ICD Codes: J96.01 - Acute respiratory failure with hypoxia; J96.02 - Acute respiratory failure with hypercapnia SNOMED: 55265580, 78785969, 671018318 (3) Aspiration pneumonia ICD Codes: J69.0 - Pneumonitis due to inhalation of food and vomit SNOMED: 677467029 Qualifiers: Qualified Codes: J69.0 - Pneumonitis due to inhalation of food and vomit (4) Toxic metabolic encephalopathy ICD Codes: G92 - Toxic encephalopathy SNOMED: 341303088 (5) JUJU (acute kidney injury) ICD Codes: N17.9 - Acute kidney failure, unspecified SNOMED: 78493053 (6) Hyponatremia ICD Codes: E87.1 - Hyponatremia SNOMED: 03014902 (7) Hyperkalemia ICD Codes: E87.5 - Hyperkalemia SNOMED: 71159515 (8) Seizure disorder ICD Codes: G40.909 - Epilepsy, unspecified, not intractable, without status epilepticus SNOMED: 964614604 (9) DVT/PE (10) Dementia ICD Codes: F03.90 - Dementia SNOMED: 45203111 (11) S/P percutaneous endoscopic gastrostomy (PEG) tube placement ICD Codes: Z93.1 - Gastrostomy status SNOMED: 637877946 Status: unchanged Assessment/Plan Cont ICU care ID consulted Cont broad-spectrum abx: vanco and zosyn (05/09-), flagyl added (05/10-) F/u cultures Trend CBC Pulm consulted Cont on vent and wean as tolerated Trend ABG Monitor CXR Renal consulted IVFs given JUJU Trend CBC Hold tube feeds via PEG for now Cont home meds including Eliuqis Cont other home meds including depakote Pain control, supportive care, bowel regimen DVT ppx: Eliquis GI ppx: PPI Dispo: pending further stabilization, cont ICU care FULL CODE per discussion w/ daughter At the time of my involvement, the patient's condition was critical with high potential for and/or physiologic deterioration secondary to acute respiratory failure 2/2 aspiration pneumonia, sepsis, acute encephalopathy as delineated in the note above. On the above date of service, I spent a total of 42 minutes in the ICU evaluating, managing, and providing critical care services to this patient, including time spent documenting these activities, counseling patient/family, and coordinating care. Critical care services performed include: Telemetry Review Hemodynamic measurement interpretation Laboratory data review and interpretation Ventilator setting review, management, and adjustment Discussion of care plans with patient, family, and/or surrogate decision makers Discussion of patient's care with primary medical team, surgical team, and/or consulting service Decision to obtain further radiologic evaluation, after consideration of risk/ benefit ratio Decision to perform invasive procedure, after consideration of risk/benefit ratio Review of most recent microbiology results with assessment and modification of antimicrobial coverage Discussion of patient's code status and further advancement towards the ultimate goals of care Plan outlined above discussed with patient/family, 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 D/w pt's daughter regarding plan of care D/w ID re abx Time of note may not reflect time of encounter Subjective Date patient seen: May 11, 2017 Time patient seen: 18:20 ROS Limited/Unobtainable: Yes Allergies: Coded Allergies: NO KNOWN DRUG ALLERGIES (Unverified Allergy, Unknown, 07/29/14) Subjective No acute o/n events Central line placed yesterday Pt cont on pressors WBC cont to be elevated at 29K Cr improved to 0.9 Pt intubated, sedated Unable to obtain ROS as pt sedated Objective Last 24 Hour Vital Signs Date Time Temp Pulse Resp B/P (MAP) Pulse Ox O2 Delivery O2 Flow Rate FiO2 05/11/17 16:39 85 18 50 05/11/17 16:00 50 05/11/17 16:00 98 05/11/17 15:15 77 18 112/41 100 Mechanical Ventilator 70 05/11/17 15:00 74 18 120/43 100 Mechanical Ventilator 70 05/11/17 14:50 75 18 99 Mechanical Ventilator 50 05/11/17 14:45 76 18 125/50 99 Mechanical Ventilator 70 05/11/17 14:41 80 18 99 Mechanical Ventilator 50 05/11/17 14:39 75 18 50 05/11/17 14:30 82 18 107/45 100 Mechanical Ventilator 70 05/11/17 14:15 76 18 104/39 99 Mechanical Ventilator 70 05/11/17 14:00 74 18 105/35 99 Mechanical Ventilator 70 05/11/17 13:45 76 19 98/38 99 Mechanical Ventilator 70 05/11/17 13:30 77 19 103/51 99 Mechanical Ventilator 70 05/11/17 13:15 78 18 102/41 100 Mechanical Ventilator 70 05/11/17 13:00 80 20 103/44 100 Mechanical Ventilator 70 05/11/17 12:45 82 18 111/44 100 Mechanical Ventilator 70 05/11/17 12:38 79 18 50 05/11/17 12:30 80 18 106/36 99 Mechanical Ventilator 70 05/11/17 12:15 77 18 102/40 100 Mechanical Ventilator 70 05/11/17 12:01 50 05/11/17 12:00 50 05/11/17 12:00 85 05/11/17 12:00 98.6 76 18 102/32 100 Mechanical Ventilator 70 05/11/17 11:45 78 18 108/40 100 Mechanical Ventilator 70 05/11/17 11:34 123/52 05/11/17 11:30 77 18 107/39 100 Mechanical Ventilator 70 05/11/17 11:15 84 19 123/52 100 Mechanical Ventilator 70 05/11/17 11:00 96 18 120/54 100 Mechanical Ventilator 70 05/11/17 10:47 91 19 99 Mechanical Ventilator 60 05/11/17 10:45 91 18 129/40 100 Mechanical Ventilator 70 05/11/17 10:38 92 18 99 Mechanical Ventilator 60 05/11/17 10:36 104 20 60 05/11/17 10:30 96 18 108/52 100 Mechanical Ventilator 70 05/11/17 10:15 96 20 122/44 100 Mechanical Ventilator 70 05/11/17 10:00 105 20 123/79 100 Mechanical Ventilator 70 05/11/17 09:45 98 20 116/56 100 Mechanical Ventilator 70 05/11/17 09:30 93 20 122/54 100 Mechanical Ventilator 70 05/11/17 09:15 93 20 125/67 100 Mechanical Ventilator 70 05/11/17 09:03 92 22 60 05/11/17 09:00 97 20 116/54 100 Mechanical Ventilator 70 05/11/17 08:45 99 21 127/52 100 Mechanical Ventilator 70 05/11/17 08:30 103 20 73/57 99 Mechanical Ventilator 70 05/11/17 08:15 98 19 105/69 99 Mechanical Ventilator 70 05/11/17 08:00 98.4 99 18 105/69 100 Mechanical Ventilator 70 05/11/17 08:00 70 05/11/17 08:00 144 05/11/17 07:45 96 19 118/48 100 Mechanical Ventilator 70 05/11/17 07:30 85 18 129/107 100 Mechanical Ventilator 70 05/11/17 07:17 60 05/11/17 07:15 76 18 120/100 100 Mechanical Ventilator 70 05/11/17 07:05 98 18 99 Mechanical Ventilator 60 05/11/17 07:00 82 18 134/54 100 Mechanical Ventilator 70 05/11/17 06:58 94 20 70 05/11/17 06:57 93 25 99 Mechanical Ventilator 70 05/11/17 05:12 97 18 70 05/11/17 04:00 70 05/11/17 04:00 98.2 96 17 117/54 100 Mechanical Ventilator 70 05/11/17 04:00 94 05/11/17 03:30 97 18 87/45 100 Mechanical Ventilator 70 05/11/17 03:22 101 18 100 Mechanical Ventilator 70 05/11/17 03:15 92 18 100 Mechanical Ventilator 70 05/11/17 03:14 84 18 70 05/11/17 03:00 100 17 147/45 100 Mechanical Ventilator 70 05/11/17 02:30 98 18 125/102 100 Mechanical Ventilator 70 05/11/17 02:04 119/50 05/11/17 02:00 83 18 121/45 99 Mechanical Ventilator 70 05/11/17 01:30 88 18 102/68 100 Mechanical Ventilator 70 05/11/17 01:11 106 19 70 05/11/17 01:00 107 18 89/33 99 Mechanical Ventilator 70 05/11/17 00:30 105 18 127/50 100 Mechanical Ventilator 70 05/11/17 00:00 100.5 105 17 119/50 100 Mechanical Ventilator 70 05/11/17 00:00 100.5 105 17 119/50 100 Mechanical Ventilator 70 05/11/17 00:00 70 05/11/17 00:00 104 05/10/17 23:30 103 18 116/83 100 Mechanical Ventilator 70 05/10/17 23:07 110 18 99 Mechanical Ventilator 70 05/10/17 23:01 107 18 99 Mechanical Ventilator 70 05/10/17 23:00 107 18 132/53 99 Mechanical Ventilator 70 05/10/17 23:00 107 18 132/53 99 Mechanical Ventilator 70 05/10/17 23:00 109 18 70 05/10/17 22:30 105 18 129/46 99 Mechanical Ventilator 70 05/10/17 22:00 102 17 119/45 99 Mechanical Ventilator 70 05/10/17 21:30 104 18 124/54 99 Mechanical Ventilator 70 05/10/17 21:00 105 18 125/47 99 Mechanical Ventilator 70 05/10/17 20:50 104 18 70 05/10/17 20:30 104 18 111/39 99 Mechanical Ventilator 70 05/10/17 20:00 100 05/10/17 20:00 70 05/10/17 20:00 100.2 100 18 111/34 99 Mechanical Ventilator 70 05/10/17 19:30 98 18 73/38 99 Mechanical Ventilator 70 05/10/17 19:06 94 18 99 Mechanical Ventilator 70 05/10/17 19:00 98 18 123/64 99 Mechanical Ventilator 70 05/10/17 18:59 92 18 98 Mechanical Ventilator 70 05/10/17 18:58 92 18 70 05/10/17 18:45 91 18 116/77 99 Mechanical Ventilator 70 05/10/17 18:30 82 18 122/40 97 Mechanical Ventilator 70 05/10/17 18:23 106/37 Intake and Output 05/10/17 05/11/17 19:00 07:00 Intake Total 1152.69 ml 342.88 ml Output Total 1315 ml 1500 ml Balance -162.31 ml -1157.12 ml Intake IV Total 1102.69 ml 342.88 ml Other 50 ml Output Urine Total 1315 ml 1500 ml Laboratory Tests 05/11/17 04:00: Arterial Blood pH 7.510H, Arterial Blood Partial Pressure CO2 32.0L, Arterial Blood Partial Pressure O2 103.5H, Arterial Blood HCO3 25.3, Arterial Blood Oxygen Saturation 97.9, Arterial Blood Base Excess 2.5, Kelvin Test Positive 05/11/17 04:15: White Blood Count 29.5*H, Red Blood Count 2.81L, Hemoglobin 9.1L, Hematocrit 26.8L, Mean Corpuscular Volume 95, Mean Corpuscular Hemoglobin 32.3H, Mean Corpuscular Hemoglobin Concent 33.9, Red Cell Distribution Width 14.3, Platelet Count 402, Mean Platelet Volume 5.1L, Neutrophils (%) (Auto) , Lymphocytes (%) ( Auto) , Monocytes (%) (Auto) , Eosinophils (%) (Auto) , Basophils (%) (Auto) , Differential Total Cells Counted 100, Neutrophils % (Manual) 89H, Lymphocytes % (Manual) 9L, Monocytes % (Manual) 1, Eosinophils % (Manual) 0, Basophils % ( Manual) 1, Band Neutrophils 0, Platelet Estimate Adequate, Platelet Morphology Normal, Hypochromasia 2+, Sodium Level 143, Potassium Level 3.6, Chloride Level 108H, Carbon Dioxide Level 26, Anion Gap 9, Blood Urea Nitrogen 43H, Creatinine 0.9, Estimat Glomerular Filtration Rate , Glucose Level 181#H, Hemoglobin A1c 5.6, Uric Acid 7.0, Calcium Level 9.8, Phosphorus Level 2.2L, Magnesium Level 1.5L, Ferritin 277, Total Bilirubin 0.4, Gamma Glutamyl Transpeptidase 15, Aspartate Amino Transf (AST/SGOT) 26, Alanine Aminotransferase (ALT/SGPT) 9L, Alkaline Phosphatase 118H, Ammonia 23, Total Creatine Kinase 96, Troponin I 0.028, C-Reactive Protein, Quantitative 35.6H, Pro-B-Type Natriuretic Peptide 2957H, Total Protein 5.1L, Albumin 1.6L, Globulin 3.5, Albumin/Globulin Ratio 0.5L, Triglycerides Level 64, Cholesterol Level 94, LDL Cholesterol 47, HDL Cholesterol 23L, Cholesterol/HDL Ratio 4.1, Thyroid Stimulating Hormone (TSH) 2.050 Height (Feet): 5 Height (Inches): 4.00 Weight (Pounds): 152 Objective General: intubated, sedated Head: normocephalic, without obvious abnormality, atraumatic Eyes: conjunctivae/corneas clear. PERRL, EOM's intact Throat: lips, mucosa, and tongue normal. MMM Neck: supple, symmetrical, trachea midline, and no JVD Lungs: +rhonchi Heart: regular rate and rhythm, S1, S2 normal, no murmur, click, rub or gallop Abdomen: soft, non-tender, non-distended, bowel sounds normal; Extremities: extremities normal, atraumatic, no cyanosis, +BLE edema Pulses: 2+ and symmetric Skin: skin color, texture, turgor normal; no rashes or lesions Neurologic: grossly normal, no focal deficits Prachi Mejia M.D. May 11, 2017 18:23
[2017-05-12] VITALS (31 sets, daily range): BP systolic 93–144; BP diastolic 38–99
[2017-05-12] MEDS: Ipratropium 0.02% Inh Soln 2.5ml UD HHN SCH ×6 (03:07→23:53)
[2017-05-12 06:12] LABS: HEMATOCRIT 26.8 % (37.0-47.0); HEMOGLOBIN 8.9 G/DL (12.0-16.0); MEAN CORPUSCULAR VOLUME 95 FL (80-99); PLATELET COUNT 369 K/UL (150-450); RED BLOOD COUNT 2.84 M/UL (4.20-5.40); RED CELL DISTRIBUTION WIDTH 14.4 % (11.6-14.8)
[2017-05-12 06:28] LABS: PHOSPHORUS 1.6 MG/DL (2.5-4.9)
[2017-05-12 06:47] LABS: ALANINE AMINOTRANSFERASE 13 U/L (12-78); ALBUMIN 1.6 G/DL (3.4-5.0); ALBUMIN/GLOBULIN RATIO 0.4 (1.0-2.7); ALKALINE PHOSPHATASE 92 U/L (46-116); ANION GAP 6 mmol/L (5-15); ASPARTATE AMINO TRANSFERASE 14 U/L (15-37); BILIRUBIN,TOTAL 0.4 MG/DL (0.2-1.0); BLOOD UREA NITROGEN 18 mg/dL (7-18); CALCIUM 9.5 MG/DL (8.5-10.1); CARBON DIOXIDE 28 MMOL/L (21-32); CHLORIDE 112 MMOL/L (98-107); CREATININE 0.5 MG/DL (0.55-1.30); POTASSIUM 2.8 MMOL/L (3.5-5.1); SODIUM 146 MMOL/L (136-145)
--- NOTE | 2017-05-12 07:44 | Pulmonolgy Critical Care Note ---
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 Discussed with: nurses, consultants, 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 - Objective Last 24 Hour Vital Signs Date Time Temp Pulse Resp B/P (MAP) Pulse Ox O2 Delivery O2 Flow Rate FiO2 05/12/17 05:09 81 18 50 05/12/17 04:00 50 05/12/17 04:00 67 05/12/17 03:12 84 18 100 Mechanical Ventilator 50 05/12/17 03:06 84 18 100 Mechanical Ventilator 50 05/12/17 03:06 50 05/12/17 03:04 84 18 50 05/12/17 01:38 84 18 50 05/12/17 01:37 84 18 100 Mechanical Ventilator 15.0 50 05/12/17 01:37 50 05/12/17 00:00 50 05/12/17 00:00 70 05/11/17 23:43 84 18 100 Mechanical Ventilator 50 05/11/17 23:42 84 18 50 05/11/17 23:30 73 18 130/47 100 Mechanical Ventilator 70 05/11/17 23:00 71 18 122/48 100 Mechanical Ventilator 70 05/11/17 22:30 76 18 118/48 100 Mechanical Ventilator 70 05/11/17 22:00 72 18 122/48 100 Mechanical Ventilator 70 05/11/17 21:30 78 18 115/45 99 Mechanical Ventilator 70 05/11/17 21:11 74 18 50 05/11/17 21:00 79 18 137/51 100 Mechanical Ventilator 70 05/11/17 20:30 87 19 138/50 100 Mechanical Ventilator 70 05/11/17 20:20 74 18 100 Mechanical Ventilator 50 05/11/17 20:00 75 05/11/17 20:00 98.5 79 18 145/53 100 Mechanical Ventilator 70 05/11/17 20:00 50 05/11/17 19:30 75 18 112/46 100 Mechanical Ventilator 70 05/11/17 19:00 78 18 155/64 100 Mechanical Ventilator 70 05/11/17 18:45 50 05/11/17 18:44 74 18 100 Mechanical Ventilator 50 05/11/17 18:44 77 18 112/41 100 Mechanical Ventilator 70 05/11/17 18:42 74 18 50 05/11/17 18:30 81 18 138/46 98 Mechanical Ventilator 70 05/11/17 18:00 76 18 124/44 99 Mechanical Ventilator 70 05/11/17 17:30 77 18 112/41 100 Mechanical Ventilator 70 05/11/17 17:00 78 19 134/46 98 Mechanical Ventilator 70 05/11/17 16:39 85 18 50 05/11/17 16:30 87 19 116/59 99 Mechanical Ventilator 70 05/11/17 16:00 50 05/11/17 16:00 92 19 134/50 100 Mechanical Ventilator 70 05/11/17 16:00 98 05/11/17 15:30 76 18 118/44 99 Mechanical Ventilator 70 05/11/17 15:15 77 18 112/41 100 Mechanical Ventilator 70 05/11/17 15:00 74 18 120/43 100 Mechanical Ventilator 70 05/11/17 14:50 75 18 99 Mechanical Ventilator 50 05/11/17 14:45 76 18 125/50 99 Mechanical Ventilator 70 05/11/17 14:41 80 18 99 Mechanical Ventilator 50 05/11/17 14:39 75 18 50 05/11/17 14:30 82 18 107/45 100 Mechanical Ventilator 70 05/11/17 14:15 76 18 104/39 99 Mechanical Ventilator 70 05/11/17 14:00 74 18 105/35 99 Mechanical Ventilator 70 05/11/17 13:45 76 19 98/38 99 Mechanical Ventilator 70 05/11/17 13:30 77 19 103/51 99 Mechanical Ventilator 70 05/11/17 13:15 78 18 102/41 100 Mechanical Ventilator 70 05/11/17 13:00 80 20 103/44 100 Mechanical Ventilator 70 05/11/17 12:45 82 18 111/44 100 Mechanical Ventilator 70 05/11/17 12:38 79 18 50 05/11/17 12:30 80 18 106/36 99 Mechanical Ventilator 70 05/11/17 12:15 77 18 102/40 100 Mechanical Ventilator 70 05/11/17 12:01 50 05/11/17 12:00 50 05/11/17 12:00 85 05/11/17 12:00 98.6 76 18 102/32 100 Mechanical Ventilator 70 05/11/17 11:45 78 18 108/40 100 Mechanical Ventilator 70 05/11/17 11:34 123/52 05/11/17 11:30 77 18 107/39 100 Mechanical Ventilator 70 05/11/17 11:15 84 19 123/52 100 Mechanical Ventilator 70 05/11/17 11:00 96 18 120/54 100 Mechanical Ventilator 70 05/11/17 10:47 91 19 99 Mechanical Ventilator 60 05/11/17 10:45 91 18 129/40 100 Mechanical Ventilator 70 05/11/17 10:38 92 18 99 Mechanical Ventilator 60 05/11/17 10:36 104 20 60 05/11/17 10:30 96 18 108/52 100 Mechanical Ventilator 70 05/11/17 10:15 96 20 122/44 100 Mechanical Ventilator 70 05/11/17 10:00 105 20 123/79 100 Mechanical Ventilator 70 05/11/17 09:45 98 20 116/56 100 Mechanical Ventilator 70 05/11/17 09:30 93 20 122/54 100 Mechanical Ventilator 70 05/11/17 09:15 93 20 125/67 100 Mechanical Ventilator 70 05/11/17 09:03 92 22 60 05/11/17 09:00 97 20 116/54 100 Mechanical Ventilator 70 05/11/17 08:45 99 21 127/52 100 Mechanical Ventilator 70 05/11/17 08:30 103 20 73/57 99 Mechanical Ventilator 70 05/11/17 08:15 98 19 105/69 99 Mechanical Ventilator 70 05/11/17 08:00 98.4 99 18 105/69 100 Mechanical Ventilator 70 05/11/17 08:00 70 05/11/17 08:00 144 05/11/17 07:45 96 19 118/48 100 Mechanical Ventilator 70 Status: sedated Condition: critical HEENT: atraumatic Lungs: rales, rhonchi Heart: HR/BP stable, regular Abdomen: non-tender, feeding tube Extremities: edema Decubiti: location Micro: Microbiology Date/Time Source Procedure Growth Status 05/09/17 20:10 Blood Blood Culture - Preliminary NO GROWTH AFTER 48 HOURS Resulted 05/09/17 19:55 Blood Blood Culture - Preliminary NO GROWTH AFTER 48 HOURS Resulted 05/10/17 02:00 Nasal Nares Influenza Types A,B Antigen (SHAWNA) - Final Complete 05/09/17 18:47 Nasal Nares MRSA Culture - Final NO METHICILLIN RESISTANT STAPH AUREUS... Complete 05/10/17 14:35 Urine,Clean Catch Urine Culture - Final NO GROWTH AFTER 48 HOURS Complete 05/09/17 19:05 Urine,Clean Catch Urine Culture - Final NO GROWTH AFTER 48 HOURS Complete 05/10/17 10:00 Sacral Wound Gram Stain - Final Resulted 05/10/17 10:00 Sacral Wound Wound Culture - Preliminary Resulted 05/09/17 18:47 Rectum VRE Culture - Final Enterococcus Faecium - Vre Enterococcus Faecalis - Vre Complete Critical Care - Subjective ROS Limited/Unobtainable: Yes ICU Day: 3 Intubation Day: 3 Condition: critical EKG Rhythm: Sinus Rhythm FI02: 50 Vent Support Breath Rate: 18 Vent Support Mode: AC Vent Tidal Volume: 500 Sputum Amount: Small PEEP: 0.0 PIP: 25 Fluids: NS 75 cc/hour I&O: Intake and Output 05/11/17 05/12/17 19:00 07:00 Intake Total 1330.237 ml 61.88 ml Output Total 1175 ml 1475 ml Balance 155.237 ml -1413.12 ml Intake IV Total 1330.237 ml 61.88 ml Output Urine Total 1175 ml 1475 ml CXR: no change ET-Tube: 7.0 ET Position: 23 Labs: Laboratory Tests Test 05/12/17 05:40 White Blood Count 21.0 K/UL (4.8-10.8) H Red Blood Count 2.84 M/UL (4.20-5.40) L Hemoglobin 8.9 G/DL (12.0-16.0) L Hematocrit 26.8 % (37.0-47.0) L Mean Corpuscular Volume 95 FL (80-99) Mean Corpuscular Hemoglobin 31.4 PG (27.0-31.0) H Mean Corpuscular Hemoglobin Concent 33.2 G/DL (32.0-36.0) Red Cell Distribution Width 14.4 % (11.6-14.8) Platelet Count 369 K/UL (150-450) Mean Platelet Volume 5.3 FL (6.5-10.1) L Neutrophils (%) (Auto) % (45.0-75.0) Lymphocytes (%) (Auto) % (20.0-45.0) Monocytes (%) (Auto) % (1.0-10.0) Eosinophils (%) (Auto) % (0.0-3.0) Basophils (%) (Auto) % (0.0-2.0) Neutrophils % (Manual) Pending Lymphocytes % (Manual) Pending Platelet Estimate Pending Platelet Morphology Pending Sodium Level 146 MMOL/L (136-145) H Potassium Level 2.8 MMOL/L (3.5-5.1) L Chloride Level 112 MMOL/L (98-107) H Carbon Dioxide Level 28 MMOL/L (21-32) Anion Gap 6 mmol/L (5-15) Blood Urea Nitrogen 18 mg/dL (7-18) Creatinine 0.5 MG/DL (0.55-1.30) L Estimat Glomerular Filtration Rate mL/min (>60) Glucose Level 169 MG/DL (74-106) H Lactic Acid Level 1.70 mmol/L (0.66-2.22) Calcium Level 9.5 MG/DL (8.5-10.1) Phosphorus Level 1.6 MG/DL (2.5-4.9) L Magnesium Level 1.7 MG/DL (1.8-2.4) L Total Bilirubin 0.4 MG/DL (0.2-1.0) Aspartate Amino Transf (AST/SGOT) 14 U/L (15-37) L Alanine Aminotransferase (ALT/SGPT) 13 U/L (12-78) Alkaline Phosphatase 92 U/L (46-116) Total Protein 5.8 G/DL (6.4-8.2) L Albumin 1.6 G/DL (3.4-5.0) L Globulin 4.2 g/dL Albumin/Globulin Ratio 0.4 (1.0-2.7) L Random Vancomycin Level 4.9 ug/mL DWAYNE CHERY May 12, 2017 07:44
[2017-05-12] MEDS ORDERED: Potassium Phosphate 30 MM in Sodium Chloride 500ML 550 ML IV ONE (08:45)
[2017-05-12] MEDS: Docusate 100mg/10ml Liq ORAL SCH ×2 (09:11→20:30)
[2017-05-12] MEDS: Pantoprazole Inj IV SCH ×2 (09:11→20:29)
[2017-05-12] MEDS: Heparin 5000 units/ml inj SUBQ SCH ×2 (09:15→20:33)
[2017-05-12] MEDS: Vancomycin 750mg/NS 250ml IVPB SCH ×2 (09:16→20:30)
--- NOTE | 2017-05-12 09:17 | Nephrology Progress Note ---
Assessment/Plan Problem List: (1) Acute respiratory failure with hypoxia and hypercapnia (2) Septic shock (3) Renal insufficiency Assessment acute renal failure resolving ? CKD underlying Acute respiratory failure septic shock sever Hypercalcemia, corrected for low Albumin HypoAlbuminemia Anemia Dementia Plan Plan: monitor serum Ca 2D echo- pending Hydrate Phos K and Mag supplement as needed hemodynamic support Aredia given 05/10 monitor renal parameters avoid nephrotoxics per orders Subjective ROS Limited/Unobtainable: Yes Objective Objective Last 24 Hour Vital Signs Date Time Temp Pulse Resp B/P (MAP) Pulse Ox O2 Delivery O2 Flow Rate FiO2 05/12/17 07:57 70 18 99 Mechanical Ventilator 50 05/12/17 07:45 60 18 100 Mechanical Ventilator 50 05/12/17 07:41 81 18 50 05/12/17 07:00 59 18 126/50 100 Mechanical Ventilator 70 05/12/17 06:30 63 18 141/41 100 Mechanical Ventilator 70 05/12/17 06:00 58 18 127/41 100 Mechanical Ventilator 70 05/12/17 05:30 59 18 110/38 100 Mechanical Ventilator 70 05/12/17 05:09 81 18 50 05/12/17 05:00 63 18 125/47 100 Mechanical Ventilator 70 05/12/17 04:30 71 18 135/40 100 Mechanical Ventilator 70 05/12/17 04:00 50 05/12/17 04:00 98.1 72 18 114/99 100 Mechanical Ventilator 70 05/12/17 04:00 67 05/12/17 03:30 74 18 137/52 100 Mechanical Ventilator 70 05/12/17 03:12 84 18 100 Mechanical Ventilator 50 05/12/17 03:06 84 18 100 Mechanical Ventilator 50 05/12/17 03:06 50 05/12/17 03:04 84 18 50 05/12/17 03:00 71 18 131/51 100 Mechanical Ventilator 70 05/12/17 02:30 75 18 140/51 100 Mechanical Ventilator 70 05/12/17 02:00 75 18 132/50 100 Mechanical Ventilator 70 05/12/17 01:38 84 18 50 05/12/17 01:37 84 18 100 Mechanical Ventilator 15.0 50 05/12/17 01:37 50 05/12/17 01:30 76 18 135/49 100 Mechanical Ventilator 70 05/12/17 01:00 79 18 106/44 98 Mechanical Ventilator 70 05/12/17 00:30 81 18 125/46 100 Mechanical Ventilator 70 05/12/17 00:00 98.6 78 18 130/50 100 Mechanical Ventilator 70 05/12/17 00:00 50 05/12/17 00:00 70 05/11/17 23:43 84 18 100 Mechanical Ventilator 50 05/11/17 23:42 84 18 50 05/11/17 23:30 73 18 130/47 100 Mechanical Ventilator 70 05/11/17 23:00 71 18 122/48 100 Mechanical Ventilator 70 05/11/17 22:30 76 18 118/48 100 Mechanical Ventilator 70 05/11/17 22:00 72 18 122/48 100 Mechanical Ventilator 70 05/11/17 21:30 78 18 115/45 99 Mechanical Ventilator 70 05/11/17 21:11 74 18 50 05/11/17 21:00 79 18 137/51 100 Mechanical Ventilator 70 05/11/17 20:30 87 19 138/50 100 Mechanical Ventilator 70 05/11/17 20:20 74 18 100 Mechanical Ventilator 50 05/11/17 20:00 75 05/11/17 20:00 98.5 79 18 145/53 100 Mechanical Ventilator 70 05/11/17 20:00 50 05/11/17 19:30 75 18 112/46 100 Mechanical Ventilator 70 05/11/17 19:00 78 18 155/64 100 Mechanical Ventilator 70 05/11/17 18:45 50 05/11/17 18:44 74 18 100 Mechanical Ventilator 50 05/11/17 18:44 77 18 112/41 100 Mechanical Ventilator 70 05/11/17 18:42 74 18 50 05/11/17 18:30 81 18 138/46 98 Mechanical Ventilator 70 05/11/17 18:00 76 18 124/44 99 Mechanical Ventilator 70 05/11/17 17:30 77 18 112/41 100 Mechanical Ventilator 70 05/11/17 17:00 78 19 134/46 98 Mechanical Ventilator 70 05/11/17 16:39 85 18 50 05/11/17 16:30 87 19 116/59 99 Mechanical Ventilator 70 05/11/17 16:00 50 05/11/17 16:00 92 19 134/50 100 Mechanical Ventilator 70 05/11/17 16:00 98 05/11/17 15:30 76 18 118/44 99 Mechanical Ventilator 70 05/11/17 15:15 77 18 112/41 100 Mechanical Ventilator 70 05/11/17 15:00 74 18 120/43 100 Mechanical Ventilator 70 05/11/17 14:50 75 18 99 Mechanical Ventilator 50 05/11/17 14:45 76 18 125/50 99 Mechanical Ventilator 70 05/11/17 14:41 80 18 99 Mechanical Ventilator 50 05/11/17 14:39 75 18 50 05/11/17 14:30 82 18 107/45 100 Mechanical Ventilator 70 05/11/17 14:15 76 18 104/39 99 Mechanical Ventilator 70 05/11/17 14:00 74 18 105/35 99 Mechanical Ventilator 70 05/11/17 13:45 76 19 98/38 99 Mechanical Ventilator 70 05/11/17 13:30 77 19 103/51 99 Mechanical Ventilator 70 05/11/17 13:15 78 18 102/41 100 Mechanical Ventilator 70 05/11/17 13:00 80 20 103/44 100 Mechanical Ventilator 70 05/11/17 12:45 82 18 111/44 100 Mechanical Ventilator 70 05/11/17 12:38 79 18 50 05/11/17 12:30 80 18 106/36 99 Mechanical Ventilator 70 05/11/17 12:15 77 18 102/40 100 Mechanical Ventilator 70 05/11/17 12:01 50 05/11/17 12:00 50 05/11/17 12:00 85 05/11/17 12:00 98.6 76 18 102/32 100 Mechanical Ventilator 70 05/11/17 11:45 78 18 108/40 100 Mechanical Ventilator 70 05/11/17 11:34 123/52 05/11/17 11:30 77 18 107/39 100 Mechanical Ventilator 70 05/11/17 11:15 84 19 123/52 100 Mechanical Ventilator 70 05/11/17 11:00 96 18 120/54 100 Mechanical Ventilator 70 05/11/17 10:47 91 19 99 Mechanical Ventilator 60 05/11/17 10:45 91 18 129/40 100 Mechanical Ventilator 70 05/11/17 10:38 92 18 99 Mechanical Ventilator 60 05/11/17 10:36 104 20 60 05/11/17 10:30 96 18 108/52 100 Mechanical Ventilator 70 05/11/17 10:15 96 20 122/44 100 Mechanical Ventilator 70 05/11/17 10:00 105 20 123/79 100 Mechanical Ventilator 70 05/11/17 09:45 98 20 116/56 100 Mechanical Ventilator 70 05/11/17 09:30 93 20 122/54 100 Mechanical Ventilator 70 Intake and Output 05/11/17 05/12/17 19:00 07:00 Intake Total 1330.237 ml 71.40 ml Output Total 1175 ml 1475 ml Balance 155.237 ml -1403.60 ml Intake IV Total 1330.237 ml 71.40 ml Output Urine Total 1175 ml 1475 ml Laboratory Tests 05/12/17 05:40: White Blood Count 21.0H, Red Blood Count 2.84L, Hemoglobin 8.9L, Hematocrit 26.8L, Mean Corpuscular Volume 95, Mean Corpuscular Hemoglobin 31.4H, Mean Corpuscular Hemoglobin Concent 33.2, Red Cell Distribution Width 14.4, Platelet Count 369, Mean Platelet Volume 5.3L, Neutrophils (%) (Auto) , Lymphocytes (%) ( Auto) , Monocytes (%) (Auto) , Eosinophils (%) (Auto) , Basophils (%) (Auto) , Differential Total Cells Counted 100, Neutrophils % (Manual) 77H, Lymphocytes % (Manual) 18L, Monocytes % (Manual) 4, Eosinophils % (Manual) 1, Basophils % ( Manual) 0, Band Neutrophils 0, Platelet Estimate Adequate, Platelet Morphology Normal, Hypochromasia 1+, Sodium Level 146H, Potassium Level 2.8L, Chloride Level 112H, Carbon Dioxide Level 28, Anion Gap 6, Blood Urea Nitrogen 18, Creatinine 0.5L, Estimat Glomerular Filtration Rate , Glucose Level 169H, Lactic Acid Level 1.70, Calcium Level 9.5, Phosphorus Level 1.6L, Magnesium Level 1.7L, Total Bilirubin 0.4, Aspartate Amino Transf (AST/SGOT) 14L, Alanine Aminotransferase (ALT/SGPT) 13, Alkaline Phosphatase 92, Total Protein 5.8L, Albumin 1.6L, Globulin 4.2, Albumin/Globulin Ratio 0.4L, Random Vancomycin Level 4.9 05/12/17 08:25: Arterial Blood pH 7.506H, Arterial Blood Partial Pressure CO2 33.4L, Arterial Blood Partial Pressure O2 74.3L, Arterial Blood HCO3 25.8, Arterial Blood Oxygen Saturation 95.5, Arterial Blood Base Excess 2.7, Kelvin Test Positive Height (Feet): 5 Height (Inches): 4.00 Weight (Pounds): 152 General Appearance: no apparent distress, lethargic Cardiovascular: normal rate Respiratory/Chest: decreased breath sounds Abdomen: distended Objective no other changes ALYSON FLANAGAN May 12, 2017 09:17
[2017-05-12] MEDS: Zosyn 3.375gm q12h **Extended infusion IVPB SCH ×4 (11:23→23:58)
--- NOTE | 2017-05-12 11:41 | Diagnostic Imaging Report ---
Indication: Dyspnea Technique: XRAY Chest 1v Comparison: 05/11/2017 Findings: ET tube and left subclavian central line unchanged in position. Heart size and mediastinal contours are stable. Persistent interstitial opacification/edema and patchy bilateral airspace opacities with small right pleural effusion. Interval development of a small left lateral pleural effusion and increased left base/retrocardiac opacities. No pneumothorax.. Gastrostomy tube partially visualized. Impression: Slight interval worsening of aeration with development of small left pleural effusion and increasing left basilar atelectasis/consolidation. Support lines and tubes unchanged
--- NOTE | 2017-05-12 12:14 | Internal Med Progress Note ---
Subjective Physician Name Priya Clark Attending Physician María Bustamante Current Medications Medications (Trade) Dose Ordered Sig/Jacque Route PRN Reason Start Time Stop Time Status Last Admin Dose Admin Acetaminophen (Tylenol) 650 mg Q4H PRN RECTAL FEVER 05/10/17 01:45 06/09/17 01:44 Acetaminophen (Tylenol) 650 mg Q4H PRN RECTAL Mild Pain (Pain Scale 1-3) 05/10/17 01:45 06/09/17 01:44 Bisacodyl (Dulcolax) 10 mg DAILYPRN PRN RECTAL Constipation 05/10/17 01:45 06/09/17 01:44 Clotrimazole (Lotrimin) 1 applic EVERY 12 HOURS TOPIC 05/10/17 15:00 06/09/17 14:59 05/12/17 09:16 Dextrose 1,000 ml @ 75 mls/hr [id number] IV 05/12/17 07:45 06/11/17 07:44 05/12/17 09:12 Dextrose (Dextrose 50%) STAT PRN IV Hypoglycemia 05/10/17 01:45 06/09/17 01:44 Docusate Sodium (Colace) 100 mg EVERY 12 HOURS ORAL 05/11/17 10:00 06/10/17 09:59 05/12/17 09:11 Heparin Sodium (Porcine) (Heparin 5000 units/ml) 5,000 units EVERY 12 HOURS SUBQ 05/10/17 09:00 06/09/17 08:59 05/12/17 09:15 Ipratropium Lima (Atrovent) 500 mcg Q4H PRN HHN Shortness of Breath 05/10/17 01:45 05/15/17 01:44 Ipratropium Lima (Atrovent) 500 mcg Q4HRT HHN 05/10/17 07:00 05/15/17 06:59 05/12/17 10:36 Metronidazole 100 ml @ 100 mls/hr Q8HR IVPB 05/10/17 23:00 05/17/17 22:59 05/12/17 06:40 Norepinephrine Bitartrate 8 mg/ Dextrose 254 ml @ 0 mls/hr Q24H IV 05/10/17 09:30 06/09/17 05:59 05/11/17 11:34 Ondansetron HCl (Zofran) 4 mg Q6H PRN IVP Nausea & Vomiting 05/10/17 01:45 06/09/17 01:44 Pantoprazole (Protonix) 40 mg Q12HR IV 05/10/17 21:00 06/09/17 20:59 05/12/17 09:11 Piperacillin Sod/ Tazobactam Sod 3.375 gm/Sodium Chloride 110 ml @ 27.5 mls/hr Q12H IVPB 05/12/17 11:00 05/19/17 10:59 05/12/17 11:23 Polyethylene Glycol (Miralax) 17 gm DAILYPRN PRN ORAL Constipation 05/10/17 01:45 06/09/17 01:44 Potassium Chloride 40 meq/ Sodium Chloride 570 ml @ 142.5 mls/ hr ONCE ONCE IVPB 05/12/17 14:00 05/12/17 17:59 Potassium Phosphate 30 mm/ Sodium Chloride 560 ml @ 93.3 mls/hr ONCE ONCE IV 05/12/17 08:45 05/12/17 14:45 05/12/17 09:17 Vancomycin HCl (Vanco rx to dose) 1 ea DAILY PRN MISC Per rx protocol 05/10/17 01:45 06/09/17 01:44 Vancomycin/Sodium Chloride 250 ml @ 166.667 mls/hr Q12HR IVPB 05/12/17 09:00 05/17/17 08:59 05/12/17 09:16 Allergies: Coded Allergies: NO KNOWN DRUG ALLERGIES (Unverified Allergy, Unknown, 07/29/14) Objective Last Vital Signs Date Time Temp Pulse Resp B/P (MAP) Pulse Ox O2 Delivery O2 Flow Rate FiO2 05/12/17 12:08 65 05/12/17 12:08 50 05/12/17 10:46 18 99 Mechanical Ventilator 05/12/17 10:00 118/58 05/12/17 08:00 98.4 05/12/17 01:37 15.0 Laboratory Tests Test 05/12/17 05:40 05/12/17 08:25 White Blood Count 21.0 K/UL (4.8-10.8) H Red Blood Count 2.84 M/UL (4.20-5.40) L Hemoglobin 8.9 G/DL (12.0-16.0) L Hematocrit 26.8 % (37.0-47.0) L Mean Corpuscular Volume 95 FL (80-99) Mean Corpuscular Hemoglobin 31.4 PG (27.0-31.0) H Mean Corpuscular Hemoglobin Concent 33.2 G/DL (32.0-36.0) Red Cell Distribution Width 14.4 % (11.6-14.8) Platelet Count 369 K/UL (150-450) Mean Platelet Volume 5.3 FL (6.5-10.1) L Neutrophils (%) (Auto) % (45.0-75.0) Lymphocytes (%) (Auto) % (20.0-45.0) Monocytes (%) (Auto) % (1.0-10.0) Eosinophils (%) (Auto) % (0.0-3.0) Basophils (%) (Auto) % (0.0-2.0) Differential Total Cells Counted 100 Neutrophils % (Manual) 77 % (45-75) H Lymphocytes % (Manual) 18 % (20-45) L Monocytes % (Manual) 4 % (1-10) Eosinophils % (Manual) 1 % (0-3) Basophils % (Manual) 0 % (0-2) Band Neutrophils 0 % (0-8) Platelet Estimate Adequate Platelet Morphology Normal Hypochromasia 1+ Sodium Level 146 MMOL/L (136-145) H Potassium Level 2.8 MMOL/L (3.5-5.1) L Chloride Level 112 MMOL/L (98-107) H Carbon Dioxide Level 28 MMOL/L (21-32) Anion Gap 6 mmol/L (5-15) Blood Urea Nitrogen 18 mg/dL (7-18) Creatinine 0.5 MG/DL (0.55-1.30) L Estimat Glomerular Filtration Rate mL/min (>60) Glucose Level 169 MG/DL (74-106) H Lactic Acid Level 1.70 mmol/L (0.66-2.22) Calcium Level 9.5 MG/DL (8.5-10.1) Phosphorus Level 1.6 MG/DL (2.5-4.9) L Magnesium Level 1.7 MG/DL (1.8-2.4) L Total Bilirubin 0.4 MG/DL (0.2-1.0) Aspartate Amino Transf (AST/SGOT) 14 U/L (15-37) L Alanine Aminotransferase (ALT/SGPT) 13 U/L (12-78) Alkaline Phosphatase 92 U/L (46-116) Total Protein 5.8 G/DL (6.4-8.2) L Albumin 1.6 G/DL (3.4-5.0) L Globulin 4.2 g/dL Albumin/Globulin Ratio 0.4 (1.0-2.7) L Random Vancomycin Level 4.9 ug/mL Arterial Blood pH 7.506 (7.350-7.450) Arterial Blood Partial Pressure CO2 33.4 mmHg (35.0-45.0) L Arterial Blood Partial Pressure O2 74.3 mmHg (75.0-100.0) L Arterial Blood HCO3 25.8 mmol/L (22.0-26.0) Arterial Blood Oxygen Saturation 95.5 % (92.0-98.0) Arterial Blood Base Excess 2.7 Kelvin Test Positive Microbiology Date/Time Source Procedure Growth Status 05/09/17 20:10 Blood Blood Culture - Preliminary NO GROWTH AFTER 48 HOURS Resulted 05/09/17 19:55 Blood Blood Culture - Preliminary NO GROWTH AFTER 48 HOURS Resulted 05/10/17 02:00 Nasal Nares Influenza Types A,B Antigen (SHAWNA) - Final Complete 05/09/17 18:47 Nasal Nares MRSA Culture - Final NO METHICILLIN RESISTANT STAPH AUREUS... Complete 05/10/17 14:35 Urine,Clean Catch Urine Culture - Final NO GROWTH AFTER 48 HOURS Complete 05/09/17 19:05 Urine,Clean Catch Urine Culture - Final NO GROWTH AFTER 48 HOURS Complete 05/10/17 10:00 Sacral Wound Gram Stain - Final Resulted 05/10/17 10:00 Wound Culture - Preliminary Gram Negative Bacillus 1 Zaria Albicans Resulted 05/09/17 18:47 Rectum VRE Culture - Final Enterococcus Faecium - Vre Enterococcus Faecalis - Vre Complete Intake and Output 05/11/17 05/12/17 19:00 07:00 Intake Total 1330.237 ml 71.40 ml Output Total 1175 ml 1475 ml Balance 155.237 ml -1403.60 ml Intake IV Total 1330.237 ml 71.40 ml Output Urine Total 1175 ml 1475 ml Assessment/Plan Assessment/Plan Assessment/Plan Assessment/Plan Problem List: (1) Septic shock ICD Codes: A41.9 - Sepsis, unspecified organism; R65.21 - Severe sepsis with septic shock SNOMED: 71717376 (2) Acute respiratory failure with hypoxia and hypercapnia ICD Codes: J96.01 - Acute respiratory failure with hypoxia; J96.02 - Acute respiratory failure with hypercapnia SNOMED: 98824798, 95834823, 012831621 (3) Aspiration pneumonia ICD Codes: J69.0 - Pneumonitis due to inhalation of food and vomit SNOMED: 961136089 Qualifiers: Qualified Codes: J69.0 - Pneumonitis due to inhalation of food and vomit (4) Toxic metabolic encephalopathy ICD Codes: G92 - Toxic encephalopathy SNOMED: 137194600 (5) JUJU (acute kidney injury) ICD Codes: N17.9 - Acute kidney failure, unspecified SNOMED: 34983228 (6) Hyponatremia ICD Codes: E87.1 - Hyponatremia SNOMED: 45320991 (7) Hyperkalemia ICD Codes: E87.5 - Hyperkalemia SNOMED: 27246486 (8) Seizure disorder ICD Codes: G40.909 - Epilepsy, unspecified, not intractable, without status epilepticus SNOMED: 291649882 (9) DVT/PE (10) Dementia ICD Codes: F03.90 - Dementia SNOMED: 48814038 (11) S/P percutaneous endoscopic gastrostomy (PEG) tube placement ICD Codes: Z93.1 - Gastrostomy status SNOMED: 502921048 Status: unchanged Assessment/Plan Cont ICU care ID consulted Cont broad-spectrum abx: vanco and zosyn (05/09-), flagyl added (05/10-) F/u cultures Trend CBC Pulm consulted Cont on vent and wean as tolerated Trend ABG Monitor CXR Renal consulted IVFs given JUJU Trend CBC Hold tube feeds via PEG for now Cont home meds including Eliuqis Cont other home meds including depakote Pain control, supportive care, bowel regimen DVT ppx: Eliquis GI ppx: PPI Dispo: pending further stabilization, cont ICU care FULL CODE per discussion w/ daughter At the time of my involvement, the patient's condition was critical with high potential for and/or physiologic deterioration secondary to acute respiratory failure 2/2 aspiration pneumonia, sepsis, acute encephalopathy as delineated in the note above. On the above date of service, I spent a total of 42 minutes in the ICU evaluating, managing, and providing critical care services to this patient, including time spent documenting these activities, counseling patient/family, and coordinating care. Critical care services performed include: Telemetry Review Hemodynamic measurement interpretation Laboratory data review and interpretation Ventilator setting review, management, and adjustment Discussion of care plans with patient, family, and/or surrogate decision makers Discussion of patient's care with primary medical team, surgical team, and/or consulting service Decision to obtain further radiologic evaluation, after consideration of risk/ benefit ratio Decision to perform invasive procedure, after consideration of risk/benefit ratio Review of most recent microbiology results with assessment and modification of antimicrobial coverage Discussion of patient's code status and further advancement towards the ultimate goals of care Plan outlined above discussed with patient/family, [employer], 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 D/w pt's daughter regarding plan of care D/w ID re abx Time of note may not reflect time of encounter Subjective Subjective Date patient seen: May 11, 2017 Time patient seen: 18:20 ROS Limited/Unobtainable: Yes Allergies: Coded Allergies: NO KNOWN DRUG ALLERGIES (Unverified Allergy, Unknown, 07/29/14) Subjective No acute o/n events Central line placed yesterday Pt cont on pressors WBC cont to be elevated at 29K Cr improved to 0.9 Pt intubated, sedated Unable to obtain ROS as pt sedated Objective Objective Last 24 Hour Vital Signs Date Time Temp Pulse Resp B/P (MAP) Pulse Ox O2 Delivery O2 Flow Rate FiO2 05/11/17 16:39 85 18 50 05/11/17 16:00 50 05/11/17 16:00 98 05/11/17 15:15 77 18 112/41 100 Mechanical Ventilator 70 05/11/17 15:00 74 18 120/43 100 Mechanical Ventilator 70 05/11/17 14:50 75 18 99 Mechanical Ventilator 50 05/11/17 14:45 76 18 125/50 99 Mechanical Ventilator 70 05/11/17 14:41 80 18 99 Mechanical Ventilator 50 05/11/17 14:39 75 18 50 05/11/17 14:30 82 18 107/45 100 Mechanical Ventilator 70 05/11/17 14:15 76 18 104/39 99 Mechanical Ventilator 70 05/11/17 14:00 74 18 105/35 99 Mechanical Ventilator 70 05/11/17 13:45 76 19 98/38 99 Mechanical Ventilator 70 18 13:30 77 19 103/51 99 Mechanical Ventilator 70 18 13:15 78 18 102/41 100 Mechanical Ventilator 70 05/11/17 13:00 80 20 103/44 100 Mechanical Ventilator 70 18 12:45 82 18 111/44 100 Mechanical Ventilator 70 05/11/17 12:38 79 18 50 05/11/17 12:30 80 18 106/36 99 Mechanical Ventilator 70 05/11/17 12:15 77 18 102/40 100 Mechanical Ventilator 70 05/11/17 12:01 50 05/11/17 12:00 50 05/11/17 12:00 85 05/11/17 12:00 98.6 76 18 102/32 100 Mechanical Ventilator 70 05/11/17 11:45 78 18 108/40 100 Mechanical Ventilator 70 05/11/17 11:34 123/52 05/11/17 11:30 77 18 107/39 100 Mechanical Ventilator 70 05/11/17 11:15 84 19 123/52 100 Mechanical Ventilator 70 05/11/17 11:00 96 18 120/54 100 Mechanical Ventilator 70 05/11/17 10:47 91 19 99 Mechanical Ventilator 60 05/11/17 10:45 91 18 129/40 100 Mechanical Ventilator 70 05/11/17 10:38 92 18 99 Mechanical Ventilator 60 05/11/17 10:36 104 20 60 05/11/17 10:30 96 18 108/52 100 Mechanical Ventilator 70 05/11/17 10:15 96 20 122/44 100 Mechanical Ventilator 70 05/11/17 10:00 105 20 123/79 100 Mechanical Ventilator 70 05/11/17 09:45 98 20 116/56 100 Mechanical Ventilator 70 05/11/17 09:30 93 20 122/54 100 Mechanical Ventilator 70 05/11/17 09:15 93 20 125/67 100 Mechanical Ventilator 70 05/11/17 09:03 92 22 60 05/11/17 09:00 97 20 116/54 100 Mechanical Ventilator 70 05/11/17 08:45 99 21 127/52 100 Mechanical Ventilator 70 05/11/17 08:30 103 20 73/57 99 Mechanical Ventilator 70 05/11/17 08:15 98 19 105/69 99 Mechanical Ventilator 70 05/11/17 08:00 98.4 99 18 105/69 100 Mechanical Ventilator 70 05/11/17 08:00 70 05/11/17 08:00 144 05/11/17 07:45 96 19 118/48 100 Mechanical Ventilator 70 05/11/17 07:30 85 18 129/107 100 Mechanical Ventilator 70 05/11/17 07:17 60 05/11/17 07:15 76 18 120/100 100 Mechanical Ventilator 70 05/11/17 07:05 98 18 99 Mechanical Ventilator 60 05/11/17 07:00 82 18 134/54 100 Mechanical Ventilator 70 05/11/17 06:58 94 20 70 05/11/17 06:57 93 25 99 Mechanical Ventilator 70 05/11/17 05:12 97 18 70 05/11/17 04:00 70 05/11/17 04:00 98.2 96 17 117/54 100 Mechanical Ventilator 70 05/11/17 04:00 94 05/11/17 03:30 97 18 87/45 100 Mechanical Ventilator 70 05/11/17 03:22 101 18 100 Mechanical Ventilator 70 05/11/17 03:15 92 18 100 Mechanical Ventilator 70 05/11/17 03:14 84 18 70 05/11/17 03:00 100 17 147/45 100 Mechanical Ventilator 70 05/11/17 02:30 98 18 125/102 100 Mechanical Ventilator 70 05/11/17 02:04 119/50 05/11/17 02:00 83 18 121/45 99 Mechanical Ventilator 70 05/11/17 01:30 88 18 102/68 100 Mechanical Ventilator 70 05/11/17 01:11 106 19 70 05/11/17 01:00 107 18 89/33 99 Mechanical Ventilator 70 05/11/17 00:30 105 18 127/50 100 Mechanical Ventilator 70 05/11/17 00:00 100.5 105 17 119/50 100 Mechanical Ventilator 70 05/11/17 00:00 100.5 105 17 119/50 100 Mechanical Ventilator 70 05/11/17 00:00 70 05/11/17 00:00 104 05/10/17 23:30 103 18 116/83 100 Mechanical Ventilator 70 05/10/17 23:07 110 18 99 Mechanical Ventilator 70 05/10/17 23:01 107 18 99 Mechanical Ventilator 70 05/10/17 23:00 107 18 132/53 99 Mechanical Ventilator 70 05/10/17 23:00 107 18 132/53 99 Mechanical Ventilator 70 05/10/17 23:00 109 18 70 05/10/17 22:30 105 18 129/46 99 Mechanical Ventilator 70 05/10/17 22:00 102 17 119/45 99 Mechanical Ventilator 70 05/10/17 21:30 104 18 124/54 99 Mechanical Ventilator 70 05/10/17 21:00 105 18 125/47 99 Mechanical Ventilator 70 05/10/17 20:50 104 18 70 05/10/17 20:30 104 18 111/39 99 Mechanical Ventilator 70 05/10/17 20:00 100 05/10/17 20:00 70 05/10/17 20:00 100.2 100 18 111/34 99 Mechanical Ventilator 70 05/10/17 19:30 98 18 73/38 99 Mechanical Ventilator 70 05/10/17 19:06 94 18 99 Mechanical Ventilator 70 05/10/17 19:00 98 18 123/64 99 Mechanical Ventilator 70 05/10/17 18:59 92 18 98 Mechanical Ventilator 70 05/10/17 18:58 92 18 70 05/10/17 18:45 91 18 116/77 99 Mechanical Ventilator 70 05/10/17 18:30 82 18 122/40 97 Mechanical Ventilator 70 05/10/17 18:23 106/37 Intake and Output 05/10/17 05/11/17 19:00 07:00 Intake Total 1152.69 ml 342.88 ml Output Total 1315 ml 1500 ml Balance -162.31 ml -1157.12 ml Intake IV Total 1102.69 ml 342.88 ml Other 50 ml Output Urine Total 1315 ml 1500 ml Laboratory Tests 05/11/17 04:00: Arterial Blood pH 7.510H, Arterial Blood Partial Pressure CO2 32.0L, Arterial Blood Partial Pressure O2 103.5H, Arterial Blood HCO3 25.3, Arterial Blood Oxygen Saturation 97.9, Arterial Blood Base Excess 2.5, Kelvin Test Positive 05/11/17 04:15: White Blood Count 29.5*H, Red Blood Count 2.81L, Hemoglobin 9.1L, Hematocrit 26.8L, Mean Corpuscular Volume 95, Mean Corpuscular Hemoglobin 32.3H, Mean Corpuscular Hemoglobin Concent 33.9, Red Cell Distribution Width 14.3, Platelet Count 402, Mean Platelet Volume 5.1L, Neutrophils (%) (Auto) , Lymphocytes (%) ( Auto) , Monocytes (%) (Auto) , Eosinophils (%) (Auto) , Basophils (%) (Auto) , Differential Total Cells Counted 100, Neutrophils % (Manual) 89H, Lymphocytes % (Manual) 9L, Monocytes % (Manual) 1, Eosinophils % (Manual) 0, Basophils % ( Manual) 1, Band Neutrophils 0, Platelet Estimate Adequate, Platelet Morphology Normal, Hypochromasia 2+, Sodium Level 143, Potassium Level 3.6, Chloride Level 108H, Carbon Dioxide Level 26, Anion Gap 9, Blood Urea Nitrogen 43H, Creatinine 0.9, Estimat Glomerular Filtration Rate , Glucose Level 181#H, Hemoglobin A1c 5.6, Uric Acid 7.0, Calcium Level 9.8, Phosphorus Level 2.2L, Magnesium Level 1.5L, Ferritin 277, Total Bilirubin 0.4, Gamma Glutamyl Transpeptidase 15, Aspartate Amino Transf (AST/SGOT) 26, Alanine Aminotransferase (ALT/SGPT) 9L, Alkaline Phosphatase 118H, Ammonia 23, Total Creatine Kinase 96, Troponin I 0.028, C-Reactive Protein, Quantitative 35.6H, Pro-B-Type Natriuretic Peptide 2957H, Total Protein 5.1L, Albumin 1.6L, Globulin 3.5, Albumin/Globulin Ratio 0.5L, Triglycerides Level 64, Cholesterol Level 94, LDL Cholesterol 47, HDL Cholesterol 23L, Cholesterol/HDL Ratio 4.1, Thyroid Stimulating Hormone (TSH) 2.050 Height (Feet): 5 Height (Inches): 4.00 Weight (Pounds): 152 Objective General: intubated, sedated Head: normocephalic, without obvious abnormality, atraumatic Eyes: conjunctivae/corneas clear. PERRL, EOM's intact Throat: lips, mucosa, and tongue normal. MMM Neck: supple, symmetrical, trachea midline, and no JVD Lungs: +rhonchi Heart: regular rate and rhythm, S1, S2 normal, no murmur, click, rub or gallop Abdomen: soft, non-tender, non-distended, bowel sounds normal; Extremities: extremities normal, atraumatic, no cyanosis, +BLE edema Pulses: 2+ and symmetric Skin: skin color, texture, turgor normal; no rashes or lesions Neurologic: grossly normal, no focal deficits Priya Clark M.D. May 12, 2017 12:14
[2017-05-12] MEDS ORDERED: Potassium Chloride 40 MEQ in Sodium Chloride 500ML 550 ML IVPB ONE (14:00)
--- NOTE | 2017-05-12 15:29 | Cardiology Report ---
APPROVED REPORT EKG Measurement Heart [id number] Normal sinus rhythm Low voltage QRS Borderline ECG
--- NOTE | 2017-05-12 17:52 | Infectious Diseases Prog Note ---
Assessment/Plan Assessment/Plan ASSESSMENT AND PLAN: 1. sepsis, shock, pna, vent, ? c.diff., leukocytosis, fevers, sirs, bc/uc/ influenza negative - zosyn, flagyl and vancomycin - lotrimin for possible fungal rash - check sc, labs, chest x-ray and c.diff - off pressors now - skin care per protocol 2. respiratory failure, on vent, icu care 3. Acute kidney injury, elevated creatinine. 4. Hypertension. 5. Diabetes. 6. Asthma. 7. Alzheimer's with some dementia. 8. Cerebrovascular accident. 9. Aspiration risk. 10. Anemia. 11. Seizures. 12. Memory loss. 13. Past medical history as noted. 14. No allergy. 15. Social history is negative. 16. Family history noncontributory. 17. Case discussed with RN. 18. MAR was noted. 19. Continue treatment per primary consultants. 20. Skin care protocol. 21. Possible fungal rash. Continue cream. 22. Questionable drug rash. 23. Continue supportive care. 24. Critical condition. 25. Notes were reviewed. Subjective Constitutional: Reports: fever - fevers better last 24 hrs, other - on vent, off pressors now HEENT: Reports: congestion Respiratory: Reports: shortness of breath Cardiovascular: Reports: other - off pressors Gastrointestinal/Abdominal: Denies: nausea, vomiting, diarrhea Genitourinary: Reports: other - + cota Neurologic: Reports: weakness, other - lethargic Psychiatric: Denies: depression Skin: Reports: rash Endocrine: Reports: other Hematologic: Denies: bleeding Musculoskeletal: Denies: pain Allergies: Coded Allergies: NO KNOWN DRUG ALLERGIES (Unverified Allergy, Unknown, 07/29/14) Objective Vital Signs Last 24 Hour Vital Signs Date Time Temp Pulse Resp B/P (MAP) Pulse Ox O2 Delivery O2 Flow Rate FiO2 05/12/17 17:15 66 18 50 05/12/17 16:00 50 05/12/17 16:00 67 05/12/17 15:33 69 18 99 Mechanical Ventilator 50 05/12/17 15:26 66 18 50 05/12/17 15:23 66 18 100 Mechanical Ventilator 50 05/12/17 14:00 63 18 132/43 100 Mechanical Ventilator 50 05/12/17 13:00 64 18 130/65 100 Mechanical Ventilator 50 05/12/17 12:50 59 18 50 05/12/17 12:08 65 05/12/17 12:08 50 05/12/17 12:00 98.2 62 18 130/62 100 Mechanical Ventilator 50 05/12/17 11:00 62 18 122/63 99 Mechanical Ventilator 50 05/12/17 10:46 72 18 99 Mechanical Ventilator 50 05/12/17 10:36 71 18 100 Mechanical Ventilator 50 05/12/17 10:32 71 18 50 05/12/17 10:00 66 18 118/58 100 Mechanical Ventilator 50 05/12/17 09:15 69 18 50 05/12/17 09:00 65 18 144/82 100 Mechanical Ventilator 50 05/12/17 08:00 50 05/12/17 08:00 63 05/12/17 08:00 98.4 63 18 93/48 100 Mechanical Ventilator 50 05/12/17 07:57 70 18 99 Mechanical Ventilator 50 05/12/17 07:45 60 18 100 Mechanical Ventilator 50 05/12/17 07:41 81 18 50 05/12/17 07:00 59 18 126/50 100 Mechanical Ventilator 70 05/12/17 06:30 63 18 141/41 100 Mechanical Ventilator 70 05/12/17 06:00 58 18 127/41 100 Mechanical Ventilator 70 05/12/17 05:30 59 18 110/38 100 Mechanical Ventilator 70 05/12/17 05:09 81 18 50 05/12/17 05:00 63 18 125/47 100 Mechanical Ventilator 70 05/12/17 04:30 71 18 135/40 100 Mechanical Ventilator 70 05/12/17 04:00 50 05/12/17 04:00 98.1 72 18 114/99 100 Mechanical Ventilator 70 05/12/17 04:00 67 05/12/17 03:30 74 18 137/52 100 Mechanical Ventilator 70 05/12/17 03:12 84 18 100 Mechanical Ventilator 50 05/12/17 03:06 84 18 100 Mechanical Ventilator 50 05/12/17 03:06 50 05/12/17 03:04 84 18 50 05/12/17 03:00 71 18 131/51 100 Mechanical Ventilator 70 05/12/17 02:30 75 18 140/51 100 Mechanical Ventilator 70 05/12/17 02:00 75 18 132/50 100 Mechanical Ventilator 70 05/12/17 01:38 84 18 50 05/12/17 01:37 84 18 100 Mechanical Ventilator 15.0 50 05/12/17 01:37 50 05/12/17 01:30 76 18 135/49 100 Mechanical Ventilator 70 05/12/17 01:00 79 18 106/44 98 Mechanical Ventilator 70 05/12/17 00:30 81 18 125/46 100 Mechanical Ventilator 70 05/12/17 00:00 98.6 78 18 130/50 100 Mechanical Ventilator 70 05/12/17 00:00 50 05/12/17 00:00 70 05/11/17 23:43 84 18 100 Mechanical Ventilator 50 05/11/17 23:42 84 18 50 05/11/17 23:30 73 18 130/47 100 Mechanical Ventilator 70 05/11/17 23:00 71 18 122/48 100 Mechanical Ventilator 70 05/11/17 22:30 76 18 118/48 100 Mechanical Ventilator 70 05/11/17 22:00 72 18 122/48 100 Mechanical Ventilator 70 05/11/17 21:30 78 18 115/45 99 Mechanical Ventilator 70 05/11/17 21:11 74 18 50 05/11/17 21:00 79 18 137/51 100 Mechanical Ventilator 70 05/11/17 20:30 87 19 138/50 100 Mechanical Ventilator 70 05/11/17 20:20 74 18 100 Mechanical Ventilator 50 05/11/17 20:00 75 05/11/17 20:00 98.5 79 18 145/53 100 Mechanical Ventilator 70 05/11/17 20:00 50 05/11/17 19:30 75 18 112/46 100 Mechanical Ventilator 70 05/11/17 19:00 78 18 155/64 100 Mechanical Ventilator 70 05/11/17 18:45 50 05/11/17 18:44 74 18 100 Mechanical Ventilator 50 05/11/17 18:44 77 18 112/41 100 Mechanical Ventilator 70 05/11/17 18:42 74 18 50 05/11/17 18:30 81 18 138/46 98 Mechanical Ventilator 70 05/11/17 18:00 76 18 124/44 99 Mechanical Ventilator 70 Height (Feet): 5 Height (Inches): 4.00 Weight (Pounds): 152 General Appearance: other - on vent, off pressors HEENT: normocephalic, atraumatic, anicteric, other - oral intubated Respiratory/Chest: crackles/rales, rhonchi - bilaterally Cardiovascular: normal rate, regular rhythm, regularly irregular, no gallop/ murmur, no JVD Abdomen: normal bowel sounds, soft, non tender, no organomegaly, non distended Genitourinary: other - + cota - urine slt cloudy Extremities: no cyanosis Skin: rash, other - fungal rash noted, ? drug rash on back Neurologic/Psychiatric: motor weakness, other - lethargic, generalized weakness , on vent Lymphatic: no neck adenopathy Musculoskeletal: no effusion Objective 05/12 - chest x-ray - Findings: ET tube and left subclavian central line unchanged in position. Heart size and mediastinal contours are stable. Persistent interstitial opacification/ edema and patchy bilateral airspace opacities with small right pleural effusion. Interval development of a small left lateral pleural effusion and increased left base/retrocardiac opacities. No pneumothorax.. Gastrostomy tube partially visualized. Impression: Slight interval worsening of aeration with development of small left pleural effusion and increasing left basilar atelectasis/consolidation. Support lines and tubes unchanged Microbiology Date/Time Source Procedure Growth Status 05/09/17 20:10 Blood Blood Culture - Preliminary NO GROWTH AFTER 48 HOURS Resulted 05/09/17 19:55 Blood Blood Culture - Preliminary NO GROWTH AFTER 48 HOURS Resulted 05/10/17 02:00 Nasal Nares Influenza Types A,B Antigen (SHAWNA) - Final Complete 05/09/17 18:47 Nasal Nares MRSA Culture - Final NO METHICILLIN RESISTANT STAPH AUREUS... Complete 05/10/17 14:35 Urine,Clean Catch Urine Culture - Final NO GROWTH AFTER 48 HOURS Complete 05/09/17 19:05 Urine,Clean Catch Urine Culture - Final NO GROWTH AFTER 48 HOURS Complete 05/10/17 10:00 Sacral Wound Gram Stain - Final Resulted 05/10/17 10:00 Wound Culture - Preliminary Gram Negative Bacillus 1 Zaria Albicans Resulted 05/09/17 18:47 Rectum VRE Culture - Final Enterococcus Faecium - Vre Enterococcus Faecalis - Vre Complete Laboratory Tests Test 05/12/17 05:40 05/12/17 08:25 White Blood Count 21.0 K/UL (4.8-10.8) H Red Blood Count 2.84 M/UL (4.20-5.40) L Hemoglobin 8.9 G/DL (12.0-16.0) L Hematocrit 26.8 % (37.0-47.0) L Mean Corpuscular Volume 95 FL (80-99) Mean Corpuscular Hemoglobin 31.4 PG (27.0-31.0) H Mean Corpuscular Hemoglobin Concent 33.2 G/DL (32.0-36.0) Red Cell Distribution Width 14.4 % (11.6-14.8) Platelet Count 369 K/UL (150-450) Mean Platelet Volume 5.3 FL (6.5-10.1) L Neutrophils (%) (Auto) % (45.0-75.0) Lymphocytes (%) (Auto) % (20.0-45.0) Monocytes (%) (Auto) % (1.0-10.0) Eosinophils (%) (Auto) % (0.0-3.0) Basophils (%) (Auto) % (0.0-2.0) Differential Total Cells Counted 100 Neutrophils % (Manual) 77 % (45-75) H Lymphocytes % (Manual) 18 % (20-45) L Monocytes % (Manual) 4 % (1-10) Eosinophils % (Manual) 1 % (0-3) Basophils % (Manual) 0 % (0-2) Band Neutrophils 0 % (0-8) Platelet Estimate Adequate Platelet Morphology Normal Hypochromasia 1+ Sodium Level 146 MMOL/L (136-145) H Potassium Level 2.8 MMOL/L (3.5-5.1) L Chloride Level 112 MMOL/L (98-107) H Carbon Dioxide Level 28 MMOL/L (21-32) Anion Gap 6 mmol/L (5-15) Blood Urea Nitrogen 18 mg/dL (7-18) Creatinine 0.5 MG/DL (0.55-1.30) L Estimat Glomerular Filtration Rate mL/min (>60) Glucose Level 169 MG/DL (74-106) H Lactic Acid Level 1.70 mmol/L (0.66-2.22) Calcium Level 9.5 MG/DL (8.5-10.1) Phosphorus Level 1.6 MG/DL (2.5-4.9) L Magnesium Level 1.7 MG/DL (1.8-2.4) L Total Bilirubin 0.4 MG/DL (0.2-1.0) Aspartate Amino Transf (AST/SGOT) 14 U/L (15-37) L Alanine Aminotransferase (ALT/SGPT) 13 U/L (12-78) Alkaline Phosphatase 92 U/L (46-116) Total Protein 5.8 G/DL (6.4-8.2) L Albumin 1.6 G/DL (3.4-5.0) L Globulin 4.2 g/dL Albumin/Globulin Ratio 0.4 (1.0-2.7) L Random Vancomycin Level 4.9 ug/mL Arterial Blood pH 7.506 (7.350-7.450) Arterial Blood Partial Pressure CO2 33.4 mmHg (35.0-45.0) L Arterial Blood Partial Pressure O2 74.3 mmHg (75.0-100.0) L Arterial Blood HCO3 25.8 mmol/L (22.0-26.0) Arterial Blood Oxygen Saturation 95.5 % (92.0-98.0) Arterial Blood Base Excess 2.7 Kelvin Test Positive Current Medications Medications (Trade) Dose Ordered Sig/Jacque Route PRN Reason Start Time Stop Time Status Last Admin Dose Admin Acetaminophen (Tylenol) 650 mg Q4H PRN RECTAL FEVER 05/10/17 01:45 06/09/17 01:44 Acetaminophen (Tylenol) 650 mg Q4H PRN RECTAL Mild Pain (Pain Scale 1-3) 05/10/17 01:45 06/09/17 01:44 Bisacodyl (Dulcolax) 10 mg DAILYPRN PRN RECTAL Constipation 05/10/17 01:45 06/09/17 01:44 Clotrimazole (Lotrimin) 1 applic EVERY 12 HOURS TOPIC 05/10/17 15:00 06/09/17 14:59 05/12/17 09:16 Dextrose 1,000 ml @ 75 mls/hr [id number] IV 05/12/17 07:45 06/11/17 07:44 05/12/17 09:12 Dextrose (Dextrose 50%) STAT PRN IV Hypoglycemia 05/10/17 01:45 06/09/17 01:44 Docusate Sodium (Colace) 100 mg EVERY 12 HOURS ORAL 05/11/17 10:00 06/10/17 09:59 05/12/17 09:11 Heparin Sodium (Porcine) (Heparin 5000 units/ml) 5,000 units EVERY 12 HOURS SUBQ 1/11/18 09:00 06/09/17 08:59 05/12/17 09:15 Ipratropium [place] (Atrovent) 500 mcg Q4H PRN HHN Shortness of Breath 05/10/17 01:45 05/15/17 01:44 Ipratropium [place] (Atrovent) 500 mcg Q4HRT HHN 05/10/17 07:00 05/15/17 06:59 05/12/17 15:23 Metronidazole 100 ml @ 100 mls/hr Q8HR IVPB 05/10/17 23:00 05/17/17 22:59 05/12/17 14:10 Norepinephrine Bitartrate 8 mg/ Dextrose 254 ml @ 0 mls/hr Q24H IV 05/10/17 09:30 06/09/17 05:59 05/11/17 11:34 Ondansetron HCl (Zofran) 4 mg Q6H PRN IVP Nausea & Vomiting 05/10/17 01:45 06/09/17 01:44 Pantoprazole (Protonix) 40 mg Q12HR IV 05/10/17 21:00 06/09/17 20:59 05/12/17 09:11 Piperacillin Sod/ Tazobactam Sod 3.375 gm/Sodium Chloride 110 ml @ 27.5 mls/hr Q12H IVPB 05/12/17 11:00 05/19/17 10:59 05/12/17 11:23 Polyethylene Glycol (Miralax) 17 gm DAILYPRN PRN ORAL Constipation 05/10/17 01:45 06/09/17 01:44 Potassium Chloride 40 meq/ Sodium Chloride 570 ml @ 142.5 mls/ hr ONCE ONCE IVPB 05/12/17 14:00 05/12/17 17:59 05/12/17 14:11 Vancomycin HCl (Vanco rx to dose) 1 ea DAILY PRN MISC Per rx protocol 05/10/17 01:45 06/09/17 01:44 Vancomycin/Sodium Chloride 250 ml @ 166.667 mls/hr Q12HR IVPB 05/12/17 09:00 05/17/17 08:59 05/12/17 09:16 TIERA PRADO May 12, 2017 17:52
[2017-05-12] MEDS ORDERED: D5NS 1000ml IV ONE (18:52)
[2017-05-12] MEDS ORDERED: Tubing IV Secondary IV ONE (18:52)
[2017-05-13] VITALS (24 sets, daily range): BP systolic 109–131; BP diastolic 9–66
[2017-05-13] MEDS: Ipratropium 0.02% Inh Soln 2.5ml UD HHN SCH ×6 (03:48→23:08)
[2017-05-13 05:44] LABS: HEMATOCRIT 23.2 % (37.0-47.0); HEMOGLOBIN 7.9 G/DL (12.0-16.0); MEAN CORPUSCULAR VOLUME 95 FL (80-99); PLATELET COUNT 308 K/UL (150-450); RED BLOOD COUNT 2.45 M/UL (4.20-5.40); RED CELL DISTRIBUTION WIDTH 14.5 % (11.6-14.8); WHITE BLOOD COUNT 17.3 K/UL (4.8-10.8)
[2017-05-13 06:01] LABS: ALANINE AMINOTRANSFERASE 9 U/L (12-78); ALBUMIN 1.4 G/DL (3.4-5.0); ALBUMIN/GLOBULIN RATIO 0.4 (1.0-2.7); ALKALINE PHOSPHATASE 74 U/L (46-116); ANION GAP 7 mmol/L (5-15); ASPARTATE AMINO TRANSFERASE 9 U/L (15-37); BILIRUBIN,TOTAL 0.3 MG/DL (0.2-1.0); BLOOD UREA NITROGEN 12 mg/dL (7-18); CALCIUM 8.4 MG/DL (8.5-10.1); CARBON DIOXIDE 25 MMOL/L (21-32); CHLORIDE 113 MMOL/L (98-107); CREATININE 0.5 MG/DL (0.55-1.30); PHOSPHORUS 1.4 MG/DL (2.5-4.9); POTASSIUM 3.4 MMOL/L (3.5-5.1); SODIUM 145 MMOL/L (136-145)
[2017-05-13] MEDS ORDERED: Potassium Chloride 40 MEQ in Sodium Chloride 500ML 550 ML IVPB ONE ×2 (08:00→15:30)
--- NOTE | 2017-05-13 08:25 | Pulmonolgy Critical Care Note ---
Critical Care - Asmt/Plan Problems: (1) Acute respiratory failure with hypoxia and hypercapnia (2) Acute encephalopathy (3) Sepsis (4) Aspiration pneumonia Respiratory: monitor respiratory rate, adjust FIO2 Renal: F/U I&O, keep IV fluid Infectious Disease: check cultures Gastrointestinal: continue feedings/current rate Endocrine: monitor blood sugar, check TSH, continue sliding scale insulin Hematologic: monitor H/H, transfuse if hgb<8.5 Neurologic: PRN Ativan, keep patient comfortable Prophylaxis: Protonix Notes Reviewed: bellperson Discussed with: nurses, consultants, transplant case managerinformation technology audit manager - Objective Last 24 Hour Vital Signs Date Time Temp Pulse Resp B/P (MAP) Pulse Ox O2 Delivery O2 Flow Rate FiO2 05/13/17 07:10 76 18 100 Mechanical Ventilator 05/13/17 07:00 76 18 116/49 100 Mechanical Ventilator 50 05/13/17 06:59 74 19 50 05/13/17 06:59 74 18 99 Mechanical Ventilator 05/13/17 06:00 75 22 129/39 100 Mechanical Ventilator 50 05/13/17 05:06 76 19 50 05/13/17 05:00 82 22 131/65 100 Mechanical Ventilator 50 05/13/17 04:00 76 05/13/17 04:00 98.3 73 19 112/52 100 Mechanical Ventilator 50 05/13/17 04:00 50 05/13/17 03:50 78 20 100 Mechanical Ventilator 05/13/17 03:50 76 20 98 Mechanical Ventilator 05/13/17 03:30 76 20 50 05/13/17 03:00 76 19 109/38 100 Mechanical Ventilator 50 05/13/17 02:00 73 19 109/42 100 Mechanical Ventilator 50 05/13/17 01:24 69 18 50 05/13/17 01:00 73 19 109/42 100 Mechanical Ventilator 50 05/13/17 00:00 62 05/13/17 00:00 98.0 67 18 113/37 100 Mechanical Ventilator 50 05/12/17 23:54 72 19 99 Mechanical Ventilator 05/12/17 23:54 74 19 100 Mechanical Ventilator 05/12/17 23:30 70 20 50 05/12/17 23:00 72 18 118/49 100 Mechanical Ventilator 50 05/12/17 22:00 79 20 116/44 100 Mechanical Ventilator 50 05/12/17 21:30 73 18 50 05/12/17 21:00 75 20 121/46 100 Mechanical Ventilator 50 05/12/17 20:00 98.2 78 20 121/50 100 Mechanical Ventilator 50 05/12/17 20:00 77 05/12/17 20:00 50 05/12/17 19:30 83 18 50 05/12/17 19:30 83 18 100 Mechanical Ventilator 05/12/17 19:28 80 18 100 Mechanical Ventilator 05/12/17 18:50 62 18 120/42 100 Mechanical Ventilator 50 05/12/17 18:04 71 18 117/42 100 Mechanical Ventilator 50 05/12/17 17:15 66 18 50 05/12/17 17:00 78 19 128/45 100 Mechanical Ventilator 50 05/12/17 16:00 98.7 63 18 127/41 100 Mechanical Ventilator 50 05/12/17 16:00 50 05/12/17 16:00 67 05/12/17 15:33 69 18 99 Mechanical Ventilator 50 05/12/17 15:26 66 18 50 05/12/17 15:23 66 18 100 Mechanical Ventilator 50 05/12/17 15:00 81 18 122/46 100 Mechanical Ventilator 50 05/12/17 14:00 63 18 132/43 100 Mechanical Ventilator 50 05/12/17 13:00 64 18 130/65 100 Mechanical Ventilator 50 05/12/17 12:50 59 18 50 05/12/17 12:08 65 05/12/17 12:08 50 05/12/17 12:00 98.2 62 18 130/62 100 Mechanical Ventilator 50 05/12/17 11:00 62 18 122/63 99 Mechanical Ventilator 50 05/12/17 10:46 72 18 99 Mechanical Ventilator 50 05/12/17 10:36 71 18 100 Mechanical Ventilator 50 05/12/17 10:32 71 18 50 05/12/17 10:00 66 18 118/58 100 Mechanical Ventilator 50 05/12/17 09:15 69 18 50 05/12/17 09:00 65 18 144/82 100 Mechanical Ventilator 50 Status: awake Condition: critical HEENT: atraumatic Lungs: rales, rhonchi Heart: HR/BP stable Abdomen: soft, non-tender, feeding tube Extremities: edema Decubiti: location Micro: Microbiology Date/Time Source Procedure Growth Status 05/10/17 14:35 Urine,Clean Catch Urine Culture - Final NO GROWTH AFTER 48 HOURS Complete 05/10/17 10:00 Sacral Wound Gram Stain - Final Resulted 05/10/17 10:00 Wound Culture - Preliminary Gram Negative Bacillus 1 Zaria Albicans Resulted Critical Care - Subjective ROS Limited/Unobtainable: Yes ICU Day: 4 Intubation Day: 4 Condition: critical EKG Rhythm: Sinus Rhythm FI02: 50 Vent Support Breath Rate: 18 Vent Support Mode: AC Vent Tidal Volume: 500 Sputum Amount: Small PEEP: 0.0 PIP: 16 Drips: d5w 70 cc.hour Tube Feeding Amount: 30 I&O: Intake and Output 05/12/17 05/13/17 19:00 07:00 Intake Total 1969.0 ml 1820.000 ml Output Total 585 ml 475 ml Balance 1384.0 ml 1345.000 ml Intake Free Water 150 ml 100 ml IV Total 1654.0 ml 1360.000 ml Tube Feeding 165 ml 360 ml Output Urine Total 585 ml 475 ml # Bowel Movements 2 2 CXR: slightly better ET-Tube: 7.5 ET Position: 23 Labs: Laboratory Tests Test 05/12/17 08:25 05/13/17 04:00 05/13/17 06:45 Arterial Blood pH 7.506 (7.350-7.450) 7.450 (7.350-7.450) Arterial Blood Partial Pressure CO2 33.4 mmHg (35.0-45.0) L 34.6 mmHg (35.0-45.0) L Arterial Blood Partial Pressure O2 74.3 mmHg (75.0-100.0) L 86.7 mmHg (75.0-100.0) Arterial Blood HCO3 25.8 mmol/L (22.0-26.0) 23.5 mmol/L (22.0-26.0) Arterial Blood Oxygen Saturation 95.5 % (92.0-98.0) 96.1 % (92.0-98.0) Arterial Blood Base Excess 2.7 -0.3 Kelvin Test Positive Positive White Blood Count 17.3 K/UL (4.8-10.8) H Red Blood Count 2.45 M/UL (4.20-5.40) L Hemoglobin 7.9 G/DL (12.0-16.0) L Hematocrit 23.2 % (37.0-47.0) L Mean Corpuscular Volume 95 FL (80-99) Mean Corpuscular Hemoglobin 32.0 PG (27.0-31.0) H Mean Corpuscular Hemoglobin Concent 33.9 G/DL (32.0-36.0) Red Cell Distribution Width 14.5 % (11.6-14.8) Platelet Count 308 K/UL (150-450) Mean Platelet Volume 5.1 FL (6.5-10.1) L Neutrophils (%) (Auto) % (45.0-75.0) Lymphocytes (%) (Auto) % (20.0-45.0) Monocytes (%) (Auto) % (1.0-10.0) Eosinophils (%) (Auto) % (0.0-3.0) Basophils (%) (Auto) % (0.0-2.0) Differential Total Cells Counted 100 Neutrophils % (Manual) 81 % (45-75) H Lymphocytes % (Manual) 14 % (20-45) L Monocytes % (Manual) 3 % (1-10) Eosinophils % (Manual) 2 % (0-3) Basophils % (Manual) 0 % (0-2) Band Neutrophils 0 % (0-8) Platelet Estimate Adequate Platelet Morphology Normal Hypochromasia 1+ Anisocytosis 1+ Sodium Level 145 MMOL/L (136-145) Potassium Level 3.4 MMOL/L (3.5-5.1) L Chloride Level 113 MMOL/L (98-107) H Carbon Dioxide Level 25 MMOL/L (21-32) Anion Gap 7 mmol/L (5-15) Blood Urea Nitrogen 12 mg/dL (7-18) Creatinine 0.5 MG/DL (0.55-1.30) L Estimat Glomerular Filtration Rate mL/min (>60) Glucose Level 192 MG/DL (74-106) H Calcium Level 8.4 MG/DL (8.5-10.1) L Phosphorus Level 1.4 MG/DL (2.5-4.9) L Magnesium Level 1.7 MG/DL (1.8-2.4) L Total Bilirubin 0.3 MG/DL (0.2-1.0) Aspartate Amino Transf (AST/SGOT) 9 U/L (15-37) L Alanine Aminotransferase (ALT/SGPT) 9 U/L (12-78) L Alkaline Phosphatase 74 U/L (46-116) Total Protein 5.0 G/DL (6.4-8.2) L Albumin 1.4 G/DL (3.4-5.0) L Globulin 3.6 g/dL Albumin/Globulin Ratio 0.4 (1.0-2.7) L DWAYNE CHERY May 13, 2017 08:25
[2017-05-13] MEDS ORDERED: Potassium Phosphate 30 MM in Sodium Chloride 500ML 550 ML IV ONE (09:30)
[2017-05-13] MEDS: Pantoprazole Inj IV SCH ×2 (09:57→20:52)
[2017-05-13] MEDS: Docusate 100mg/10ml Liq ORAL SCH ×2 (09:57→20:47)
[2017-05-13] MEDS: Vancomycin 750mg/NS 250ml IVPB SCH ×2 (09:58→20:48)
[2017-05-13] MEDS: Heparin 5000 units/ml inj SUBQ SCH ×2 (10:01→20:45)
--- NOTE | 2017-05-13 11:54 | Nephrology Progress Note ---
Assessment/Plan Problem List: (1) Acute respiratory failure with hypoxia and hypercapnia (2) Septic shock (3) Renal insufficiency (4) Hypercalcemia Assessment acute renal failure resolving ? CKD underlying Acute respiratory failure septic shock sever Hypercalcemia, corrected for low Albumin HypoAlbuminemia Anemia Dementia Plan Plan: monitor serum Ca 2D echo- pending increase feeding Phos K and Mag supplement as needed hemodynamic support Aredia given 05/10 monitor renal parameters serum cortisol lvel avoid nephrotoxics per orders Subjective ROS Limited/Unobtainable: Yes Objective Objective Last 24 Hour Vital Signs Date Time Temp Pulse Resp B/P (MAP) Pulse Ox O2 Delivery O2 Flow Rate FiO2 05/13/17 11:00 75 19 122/43 100 Mechanical Ventilator 50 05/13/17 10:55 70 18 100 Mechanical Ventilator 05/13/17 10:48 69 18 99 Mechanical Ventilator 05/13/17 10:48 69 18 50 05/13/17 10:00 70 19 111/43 100 Mechanical Ventilator 50 05/13/17 09:30 123/43 05/13/17 09:20 78 25 50 05/13/17 09:00 70 19 118/47 100 Mechanical Ventilator 50 05/13/17 08:00 98.5 77 20 118/47 100 Mechanical Ventilator 50 05/13/17 08:00 50 05/13/17 08:00 77 05/13/17 07:10 76 18 100 Mechanical Ventilator 05/13/17 07:00 76 18 116/49 100 Mechanical Ventilator 50 05/13/17 06:59 74 19 50 05/13/17 06:59 74 18 99 Mechanical Ventilator 05/13/17 06:00 75 22 129/39 100 Mechanical Ventilator 50 05/13/17 05:06 76 19 50 05/13/17 05:00 82 22 131/65 100 Mechanical Ventilator 50 05/13/17 04:00 76 05/13/17 04:00 98.3 73 19 112/52 100 Mechanical Ventilator 50 05/13/17 04:00 50 05/13/17 03:50 78 20 100 Mechanical Ventilator 05/13/17 03:50 76 20 98 Mechanical Ventilator 05/13/17 03:30 76 20 50 05/13/17 03:00 76 19 109/38 100 Mechanical Ventilator 50 05/13/17 02:00 73 19 109/42 100 Mechanical Ventilator 50 05/13/17 01:24 69 18 50 05/13/17 01:00 73 19 109/42 100 Mechanical Ventilator 50 05/13/17 00:00 62 05/13/17 00:00 98.0 67 18 113/37 100 Mechanical Ventilator 50 05/12/17 23:54 72 19 99 Mechanical Ventilator 05/12/17 23:54 74 19 100 Mechanical Ventilator 05/12/17 23:30 70 20 50 05/12/17 23:00 72 18 118/49 100 Mechanical Ventilator 50 05/12/17 22:00 79 20 116/44 100 Mechanical Ventilator 50 05/12/17 21:30 73 18 50 05/12/17 21:00 75 20 121/46 100 Mechanical Ventilator 50 05/12/17 20:00 98.2 78 20 121/50 100 Mechanical Ventilator 50 05/12/17 20:00 77 05/12/17 20:00 50 05/12/17 19:30 83 18 50 05/12/17 19:30 83 18 100 Mechanical Ventilator 05/12/17 19:28 80 18 100 Mechanical Ventilator 05/12/17 18:50 62 18 120/42 100 Mechanical Ventilator 50 05/12/17 18:04 71 18 117/42 100 Mechanical Ventilator 50 05/12/17 17:15 66 18 50 05/12/17 17:00 78 19 128/45 100 Mechanical Ventilator 50 05/12/17 16:00 98.7 63 18 127/41 100 Mechanical Ventilator 50 05/12/17 16:00 50 05/12/17 16:00 67 05/12/17 15:33 69 18 99 Mechanical Ventilator 50 05/12/17 15:26 66 18 50 05/12/17 15:23 66 18 100 Mechanical Ventilator 50 05/12/17 15:00 81 18 122/46 100 Mechanical Ventilator 50 05/12/17 14:00 63 18 132/43 100 Mechanical Ventilator 50 05/12/17 13:00 64 18 130/65 100 Mechanical Ventilator 50 05/12/17 12:50 59 18 50 05/12/17 12:08 65 05/12/17 12:08 50 05/12/17 12:00 98.2 62 18 130/62 100 Mechanical Ventilator 50 Intake and Output 05/12/17 05/13/17 19:00 07:00 Intake Total 1969.0 ml 1820.000 ml Output Total 585 ml 475 ml Balance 1384.0 ml 1345.000 ml Intake Free Water 150 ml 100 ml IV Total 1654.0 ml 1360.000 ml Tube Feeding 165 ml 360 ml Output Urine Total 585 ml 475 ml # Bowel Movements 2 2 Laboratory Tests 05/13/17 04:00: White Blood Count 17.3H, Red Blood Count 2.45L, Hemoglobin 7.9L, Hematocrit 23.2L, Mean Corpuscular Volume 95, Mean Corpuscular Hemoglobin 32.0H, Mean Corpuscular Hemoglobin Concent 33.9, Red Cell Distribution Width 14.5, Platelet Count 308, Mean Platelet Volume 5.1L, Neutrophils (%) (Auto) , Lymphocytes (%) ( Auto) , Monocytes (%) (Auto) , Eosinophils (%) (Auto) , Basophils (%) (Auto) , Differential Total Cells Counted 100, Neutrophils % (Manual) 81H, Lymphocytes % (Manual) 14L, Monocytes % (Manual) 3, Eosinophils % (Manual) 2, Basophils % ( Manual) 0, Band Neutrophils 0, Platelet Estimate Adequate, Platelet Morphology Normal, Hypochromasia 1+, Anisocytosis 1+, Sodium Level 145, Potassium Level 3.4L, Chloride Level 113H, Carbon Dioxide Level 25, Anion Gap 7, Blood Urea Nitrogen 12, Creatinine 0.5L, Estimat Glomerular Filtration Rate , Glucose Level 192H, Calcium Level 8.4L, Phosphorus Level 1.4L, Magnesium Level 1.7L, Total Bilirubin 0.3, Aspartate Amino Transf (AST/SGOT) 9L, Alanine Aminotransferase (ALT/SGPT) 9L, Alkaline Phosphatase 74, Total Protein 5.0L, Albumin 1.4L, Globulin 3.6, Albumin/Globulin Ratio 0.4L 05/13/17 06:00: Urine Eosinophils None seen 05/13/17 06:45: Arterial Blood pH 7.450, Arterial Blood Partial Pressure CO2 34.6L, Arterial Blood Partial Pressure O2 86.7, Arterial Blood HCO3 23.5, Arterial Blood Oxygen Saturation 96.1, Arterial Blood Base Excess -0.3, Kelvin Test Positive Height (Feet): 5 Height (Inches): 4.00 Weight (Pounds): 152 General Appearance: other - on vent Cardiovascular: normal rate Respiratory/Chest: decreased breath sounds Abdomen: distended Objective no other changes ALYSON FLANAGAN May 13, 2017 11:54
--- NOTE | 2017-05-13 12:58 | Diagnostic Imaging Report ---
Indication: Dyspnea Technique: XRAY Chest 1v Comparison: 05/12/2017 Findings: ET tube and left subclavian central line unchanged in position. Heart size and mediastinal contours are stable. Persistent interstitial opacification/edema and patchy bilateral airspace opacities with small right pleural effusion. Slight improved aeration of the right lung compared to the prior exam Impression: Slight improved aeration of the right lung compared to the prior exam. Persistent interstitial opacities and patchy bilateral airspace opacities. Support lines/tubes unchanged in position.
[2017-05-13] MEDS: Zosyn 3.375gm q12h **Extended infusion IVPB SCH ×4 (13:08→22:42)
[2017-05-13] MEDS ORDERED: NS 500ML ONE (14:57)
[2017-05-13] MEDS ORDERED: LR 1000ml ONE (14:57)
[2017-05-13] MEDS ORDERED: Tubing IV Secondary IV ONE ×2 (14:57→15:48)
[2017-05-13] MEDS ORDERED: D5W 275ml ONE (14:57)
--- NOTE | 2017-05-13 19:11 | Internal Med Progress Note ---
Subjective Physician Name ZuleikaPriya hanson Attending Physician María Bustamante Current Medications Medications (Trade) Dose Ordered Sig/Jacque Route PRN Reason Start Time Stop Time Status Last Admin Dose Admin Acetaminophen (Tylenol) 650 mg Q4H PRN RECTAL FEVER 05/10/17 01:45 06/09/17 01:44 Acetaminophen (Tylenol) 650 mg Q4H PRN RECTAL Mild Pain (Pain Scale 1-3) 05/10/17 01:45 06/09/17 01:44 Bisacodyl (Dulcolax) 10 mg DAILYPRN PRN RECTAL Constipation 05/10/17 01:45 06/09/17 01:44 Chlorhexidine Gluconate (Laly-Hex 2%) 1 applic DAILY@1999 TOPIC 05/13/17 20:00 06/12/17 19:59 Clotrimazole (Lotrimin) 1 applic EVERY 12 HOURS TOPIC 05/10/17 15:00 06/09/17 14:59 05/13/17 09:34 Dextrose (Dextrose 50%) STAT PRN IV Hypoglycemia 05/10/17 01:45 06/09/17 01:44 Docusate Sodium (Colace) 100 mg EVERY 12 HOURS ORAL 05/11/17 10:00 06/10/17 09:59 05/13/17 09:57 Heparin Sodium (Porcine) (Heparin 5000 units/ml) 5,000 units EVERY 12 HOURS SUBQ 05/10/17 09:00 06/09/17 08:59 05/13/17 10:01 Ipratropium Lawler (Atrovent) 500 mcg Q4H PRN HHN Shortness of Breath 05/10/17 01:45 05/15/17 01:44 Ipratropium Lawler (Atrovent) 500 mcg Q4HRT HHN 05/10/17 07:00 05/15/17 06:59 05/13/17 14:48 Metronidazole 100 ml @ 100 mls/hr Q8HR IVPB 05/10/17 23:00 05/17/17 22:59 05/13/17 15:22 Norepinephrine Bitartrate 8 mg/ Dextrose 254 ml @ 0 mls/hr Q24H IV 05/10/17 09:30 06/09/17 05:59 05/11/17 11:34 Ondansetron HCl (Zofran) 4 mg Q6H PRN IVP Nausea & Vomiting 05/10/17 01:45 06/09/17 01:44 Pantoprazole (Protonix) 40 mg Q12HR IV 05/10/17 21:00 06/09/17 20:59 05/13/17 09:57 Piperacillin Sod/ Tazobactam Sod 3.375 gm/Sodium Chloride 110 ml @ 27.5 mls/hr Q12H IVPB 05/12/17 11:00 05/19/17 10:59 05/13/17 13:08 Polyethylene Glycol (Miralax) 17 gm DAILYPRN PRN ORAL Constipation 05/10/17 01:45 06/09/17 01:44 Potassium Chloride 40 meq/ Sodium Chloride 570 ml @ 142.5 mls/ hr ONCE ONCE IVPB 05/13/17 15:30 05/13/17 19:29 05/13/17 15:26 Vancomycin HCl (Vanco rx to dose) 1 ea DAILY PRN MISC Per rx protocol 05/10/17 01:45 06/09/17 01:44 Vancomycin/Sodium Chloride 250 ml @ 166.667 mls/hr Q12HR IVPB 05/12/17 09:00 05/17/17 08:59 05/13/17 09:58 Allergies: Coded Allergies: NO KNOWN DRUG ALLERGIES (Unverified Allergy, Unknown, 07/29/14) Objective Last Vital Signs Date Time Temp Pulse Resp B/P (MAP) Pulse Ox O2 Delivery O2 Flow Rate FiO2 05/13/17 18:00 83 26 112/48 99 Mechanical Ventilator 50 05/13/17 16:00 98.9 05/12/17 01:37 15.0 Laboratory Tests Test 05/13/17 04:00 05/13/17 06:00 05/13/17 06:45 White Blood Count 17.3 K/UL (4.8-10.8) H Red Blood Count 2.45 M/UL (4.20-5.40) L Hemoglobin 7.9 G/DL (12.0-16.0) L Hematocrit 23.2 % (37.0-47.0) L Mean Corpuscular Volume 95 FL (80-99) Mean Corpuscular Hemoglobin 32.0 PG (27.0-31.0) H Mean Corpuscular Hemoglobin Concent 33.9 G/DL (32.0-36.0) Red Cell Distribution Width 14.5 % (11.6-14.8) Platelet Count 308 K/UL (150-450) Mean Platelet Volume 5.1 FL (6.5-10.1) L Neutrophils (%) (Auto) % (45.0-75.0) Lymphocytes (%) (Auto) % (20.0-45.0) Monocytes (%) (Auto) % (1.0-10.0) Eosinophils (%) (Auto) % (0.0-3.0) Basophils (%) (Auto) % (0.0-2.0) Differential Total Cells Counted 100 Neutrophils % (Manual) 81 % (45-75) H Lymphocytes % (Manual) 14 % (20-45) L Monocytes % (Manual) 3 % (1-10) Eosinophils % (Manual) 2 % (0-3) Basophils % (Manual) 0 % (0-2) Band Neutrophils 0 % (0-8) Platelet Estimate Adequate Platelet Morphology Normal Hypochromasia 1+ Anisocytosis 1+ Sodium Level 145 MMOL/L (136-145) Potassium Level 3.4 MMOL/L (3.5-5.1) L Chloride Level 113 MMOL/L (98-107) H Carbon Dioxide Level 25 MMOL/L (21-32) Anion Gap 7 mmol/L (5-15) Blood Urea Nitrogen 12 mg/dL (7-18) Creatinine 0.5 MG/DL (0.55-1.30) L Estimat Glomerular Filtration Rate mL/min (>60) Glucose Level 192 MG/DL (74-106) H Calcium Level 8.4 MG/DL (8.5-10.1) L Phosphorus Level 1.4 MG/DL (2.5-4.9) L Magnesium Level 1.7 MG/DL (1.8-2.4) L Total Bilirubin 0.3 MG/DL (0.2-1.0) Aspartate Amino Transf (AST/SGOT) 9 U/L (15-37) L Alanine Aminotransferase (ALT/SGPT) 9 U/L (12-78) L Alkaline Phosphatase 74 U/L (46-116) C-Reactive Protein, Quantitative 18.4 mg/dL (0.00-0.90) H Total Protein 5.0 G/DL (6.4-8.2) L Albumin 1.4 G/DL (3.4-5.0) L Globulin 3.6 g/dL Albumin/Globulin Ratio 0.4 (1.0-2.7) L Urine Eosinophils None seen Arterial Blood pH 7.450 (7.350-7.450) Arterial Blood Partial Pressure CO2 34.6 mmHg (35.0-45.0) L Arterial Blood Partial Pressure O2 86.7 mmHg (75.0-100.0) Arterial Blood HCO3 23.5 mmol/L (22.0-26.0) Arterial Blood Oxygen Saturation 96.1 % (92.0-98.0) Arterial Blood Base Excess -0.3 Kelvin Test Positive Microbiology Date/Time Source Procedure Growth Status 05/12/17 14:12 Sputum Gram Stain Pending Resulted 05/12/17 14:12 Sputum Sputum Culture - Preliminary NO GROWTH AFTER 24 HOURS Resulted Intake and Output 05/12/17 05/13/17 19:00 07:00 Intake Total 1969.0 ml 1820.000 ml Output Total 585 ml 475 ml Balance 1384.0 ml 1345.000 ml Intake Free Water 150 ml 100 ml IV Total 1654.0 ml 1360.000 ml Tube Feeding 165 ml 360 ml Output Urine Total 585 ml 475 ml # Bowel Movements 2 2 Assessment/Plan Assessment/Plan Assessment/Plan Assessment/Plan Problem List: (1) Septic shock ICD Codes: A41.9 - Sepsis, unspecified organism; R65.21 - Severe sepsis with septic shock SNOMED: 69966380 (2) Acute respiratory failure with hypoxia and hypercapnia ICD Codes: J96.01 - Acute respiratory failure with hypoxia; J96.02 - Acute respiratory failure with hypercapnia SNOMED: 29587325, 73371925, 273858666 (3) Aspiration pneumonia ICD Codes: J69.0 - Pneumonitis due to inhalation of food and vomit SNOMED: 577715696 Qualifiers: Qualified Codes: J69.0 - Pneumonitis due to inhalation of food and vomit (4) Toxic metabolic encephalopathy ICD Codes: G92 - Toxic encephalopathy SNOMED: 898531511 (5) JUJU (acute kidney injury) ICD Codes: N17.9 - Acute kidney failure, unspecified SNOMED: 98603001 (6) Hyponatremia ICD Codes: E87.1 - Hyponatremia SNOMED: 34088388 (7) Hyperkalemia ICD Codes: E87.5 - Hyperkalemia SNOMED: 79833777 (8) Seizure disorder ICD Codes: G40.909 - Epilepsy, unspecified, not intractable, without status epilepticus SNOMED: 994768492 (9) DVT/PE (10) Dementia ICD Codes: F03.90 - Dementia SNOMED: 63827231 (11) S/P percutaneous endoscopic gastrostomy (PEG) tube placement ICD Codes: Z93.1 - Gastrostomy status SNOMED: 048626615 Status: unchanged Assessment/Plan Cont ICU care ID consulted Cont broad-spectrum abx: vanco and zosyn (05/09-), flagyl added (05/10-) F/u cultures Trend CBC Pulm consulted Cont on vent and wean as tolerated Trend ABG Monitor CXR Renal consulted IVFs given JUJU Trend CBC Hold tube feeds via PEG for now Cont home meds including Eliuqis Cont other home meds including depakote Pain control, supportive care, bowel regimen DVT ppx: Eliquis GI ppx: PPI Dispo: pending further stabilization, cont ICU care FULL CODE per discussion w/ daughter At the time of my involvement, the patient's condition was critical with high potential for and/or physiologic deterioration secondary to acute respiratory failure 2/2 aspiration pneumonia, sepsis, acute encephalopathy as delineated in the note above. On the above date of service, I spent a total of 42 minutes in the ICU evaluating, managing, and providing critical care services to this patient, including time spent documenting these activities, counseling patient/family, and coordinating care. Critical care services performed include: Telemetry Review Hemodynamic measurement interpretation Laboratory data review and interpretation Ventilator setting review, management, and adjustment Discussion of care plans with patient, family, and/or surrogate decision makers Discussion of patient's care with primary medical team, surgical team, and/or consulting service Decision to obtain further radiologic evaluation, after consideration of risk/ benefit ratio Decision to perform invasive procedure, after consideration of risk/benefit ratio Review of most recent microbiology results with assessment and modification of antimicrobial coverage Discussion of patient's code status and further advancement towards the ultimate goals of care Plan outlined above discussed with patient/family, 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 D/w pt's daughter regarding plan of care D/w ID re abx Time of note may not reflect time of encounter Subjective Subjective Date patient seen: May 11, 2017 Time patient seen: 18:20 ROS Limited/Unobtainable: Yes Allergies: Coded Allergies: NO KNOWN DRUG ALLERGIES (Unverified Allergy, Unknown, 07/29/14) Subjective No acute o/n events Central line placed yesterday Pt cont on pressors WBC cont to be elevated at 29K Cr improved to 0.9 Pt intubated, sedated Unable to obtain ROS as pt sedated Objective Objective Last 24 Hour Vital Signs Date Time Temp Pulse Resp B/P (MAP) Pulse Ox O2 Delivery O2 Flow Rate FiO2 05/11/17 16:39 85 18 50 05/11/17 16:00 50 05/11/17 16:00 98 05/11/17 15:15 77 18 112/41 100 Mechanical Ventilator 70 05/11/17 15:00 74 18 120/43 100 Mechanical Ventilator 70 05/11/17 14:50 75 18 99 Mechanical Ventilator 50 05/11/17 14:45 76 18 125/50 99 Mechanical Ventilator 70 05/11/17 14:41 80 18 99 Mechanical Ventilator 50 05/11/17 14:39 75 18 50 05/11/17 14:30 82 18 107/45 100 Mechanical Ventilator 70 05/11/17 14:15 76 18 104/39 99 Mechanical Ventilator 70 05/11/17 14:00 74 18 105/35 99 Mechanical Ventilator 70 05/11/17 13:45 76 19 98/38 99 Mechanical Ventilator 70 05/11/17 13:30 77 19 103/51 99 Mechanical Ventilator 70 05/11/17 13:15 78 18 102/41 100 Mechanical Ventilator 70 05/11/17 13:00 80 20 103/44 100 Mechanical Ventilator 70 05/11/17 12:45 82 18 111/44 100 Mechanical Ventilator 70 05/11/17 12:38 79 18 50 05/11/17 12:30 80 18 106/36 99 Mechanical Ventilator 70 05/11/17 12:15 77 18 102/40 100 Mechanical Ventilator 70 05/11/17 12:01 50 05/11/17 12:00 50 05/11/17 12:00 85 05/11/17 12:00 98.6 76 18 102/32 100 Mechanical Ventilator 70 05/11/17 11:45 78 18 108/40 100 Mechanical Ventilator 70 05/11/17 11:34 123/52 05/11/17 11:30 77 18 107/39 100 Mechanical Ventilator 70 05/11/17 11:15 84 19 123/52 100 Mechanical Ventilator 70 05/11/17 11:00 96 18 120/54 100 Mechanical Ventilator 70 05/11/17 10:47 91 19 99 Mechanical Ventilator 60 05/11/17 10:45 91 18 129/40 100 Mechanical Ventilator 70 05/11/17 10:38 92 18 99 Mechanical Ventilator 60 05/11/17 10:36 104 20 60 18 10:30 96 18 108/52 100 Mechanical Ventilator 70 05/11/17 10:15 96 20 122/44 100 Mechanical Ventilator 70 05/11/17 10:00 105 20 123/79 100 Mechanical Ventilator 70 05/11/17 09:45 98 20 116/56 100 Mechanical Ventilator 70 05/11/17 09:30 93 20 122/54 100 Mechanical Ventilator 70 05/11/17 09:15 93 20 125/67 100 Mechanical Ventilator 70 05/11/17 09:03 92 22 60 05/11/17 09:00 97 20 116/54 100 Mechanical Ventilator 70 05/11/17 08:45 99 21 127/52 100 Mechanical Ventilator 70 05/11/17 08:30 103 20 73/57 99 Mechanical Ventilator 70 05/11/17 08:15 98 19 105/69 99 Mechanical Ventilator 70 05/11/17 08:00 98.4 99 18 105/69 100 Mechanical Ventilator 70 05/11/17 08:00 70 05/11/17 08:00 144 05/11/17 07:45 96 19 118/48 100 Mechanical Ventilator 70 05/11/17 07:30 85 18 129/107 100 Mechanical Ventilator 70 05/11/17 07:17 60 05/11/17 07:15 76 18 120/100 100 Mechanical Ventilator 70 05/11/17 07:05 98 18 99 Mechanical Ventilator 60 05/11/17 07:00 82 18 134/54 100 Mechanical Ventilator 70 05/11/17 06:58 94 20 70 05/11/17 06:57 93 25 99 Mechanical Ventilator 70 05/11/17 05:12 97 18 70 05/11/17 04:00 70 05/11/17 04:00 98.2 96 17 117/54 100 Mechanical Ventilator 70 05/11/17 04:00 94 05/11/17 03:30 97 18 87/45 100 Mechanical Ventilator 70 05/11/17 03:22 101 18 100 Mechanical Ventilator 70 05/11/17 03:15 92 18 100 Mechanical Ventilator 70 05/11/17 03:14 84 18 70 05/11/17 03:00 100 17 147/45 100 Mechanical Ventilator 70 05/11/17 02:30 98 18 125/102 100 Mechanical Ventilator 70 05/11/17 02:04 119/50 05/11/17 02:00 83 18 121/45 99 Mechanical Ventilator 70 05/11/17 01:30 88 18 102/68 100 Mechanical Ventilator 70 05/11/17 01:11 106 19 70 05/11/17 01:00 107 18 89/33 99 Mechanical Ventilator 70 05/11/17 00:30 105 18 127/50 100 Mechanical Ventilator 70 05/11/17 00:00 100.5 105 17 119/50 100 Mechanical Ventilator 70 05/11/17 00:00 100.5 105 17 119/50 100 Mechanical Ventilator 70 05/11/17 00:00 70 05/11/17 00:00 104 05/10/17 23:30 103 18 116/83 100 Mechanical Ventilator 70 05/10/17 23:07 110 18 99 Mechanical Ventilator 70 05/10/17 23:01 107 18 99 Mechanical Ventilator 70 05/10/17 23:00 107 18 132/53 99 Mechanical Ventilator 70 05/10/17 23:00 107 18 132/53 99 Mechanical Ventilator 70 05/10/17 23:00 109 18 70 05/10/17 22:30 105 18 129/46 99 Mechanical Ventilator 70 05/10/17 22:00 102 17 119/45 99 Mechanical Ventilator 70 05/10/17 21:30 104 18 124/54 99 Mechanical Ventilator 70 05/10/17 21:00 105 18 125/47 99 Mechanical Ventilator 70 05/10/17 20:50 104 18 70 05/10/17 20:30 104 18 111/39 99 Mechanical Ventilator 70 05/10/17 20:00 100 05/10/17 20:00 70 05/10/17 20:00 100.2 100 18 111/34 99 Mechanical Ventilator 70 05/10/17 19:30 98 18 73/38 99 Mechanical Ventilator 70 05/10/17 19:06 94 18 99 Mechanical Ventilator 70 05/10/17 19:00 98 18 123/64 99 Mechanical Ventilator 70 05/10/17 18:59 92 18 98 Mechanical Ventilator 70 05/10/17 18:58 92 18 70 05/10/17 18:45 91 18 116/77 99 Mechanical Ventilator 70 05/10/17 18:30 82 18 122/40 97 Mechanical Ventilator 70 05/10/17 18:23 106/37 Intake and Output 05/10/17 05/11/17 19:00 07:00 Intake Total 1152.69 ml 342.88 ml Output Total 1315 ml 1500 ml Balance -162.31 ml -1157.12 ml Intake IV Total 1102.69 ml 342.88 ml Other 50 ml Output Urine Total 1315 ml 1500 ml Laboratory Tests 05/11/17 04:00: Arterial Blood pH 7.510H, Arterial Blood Partial Pressure CO2 32.0L, Arterial Blood Partial Pressure O2 103.5H, Arterial Blood HCO3 25.3, Arterial Blood Oxygen Saturation 97.9, Arterial Blood Base Excess 2.5, Kelvin Test Positive 05/11/17 04:15: White Blood Count 29.5*H, Red Blood Count 2.81L, Hemoglobin 9.1L, Hematocrit 26.8L, Mean Corpuscular Volume 95, Mean Corpuscular Hemoglobin 32.3H, Mean Corpuscular Hemoglobin Concent 33.9, Red Cell Distribution Width 14.3, Platelet Count 402, Mean Platelet Volume 5.1L, Neutrophils (%) (Auto) , Lymphocytes (%) ( Auto) , Monocytes (%) (Auto) , Eosinophils (%) (Auto) , Basophils (%) (Auto) , Differential Total Cells Counted 100, Neutrophils % (Manual) 89H, Lymphocytes % (Manual) 9L, Monocytes % (Manual) 1, Eosinophils % (Manual) 0, Basophils % ( Manual) 1, Band Neutrophils 0, Platelet Estimate Adequate, Platelet Morphology Normal, Hypochromasia 2+, Sodium Level 143, Potassium Level 3.6, Chloride Level 108H, Carbon Dioxide Level 26, Anion Gap 9, Blood Urea Nitrogen 43H, Creatinine 0.9, Estimat Glomerular Filtration Rate , Glucose Level 181#H, Hemoglobin A1c 5.6, Uric Acid 7.0, Calcium Level 9.8, Phosphorus Level 2.2L, Magnesium Level 1.5L, Ferritin 277, Total Bilirubin 0.4, Gamma Glutamyl Transpeptidase 15, Aspartate Amino Transf (AST/SGOT) 26, Alanine Aminotransferase (ALT/SGPT) 9L, Alkaline Phosphatase 118H, Ammonia 23, Total Creatine Kinase 96, Troponin I 0.028, C-Reactive Protein, Quantitative 35.6H, Pro-B-Type Natriuretic Peptide 2957H, Total Protein 5.1L, Albumin 1.6L, Globulin 3.5, Albumin/Globulin Ratio 0.5L, Triglycerides Level 64, Cholesterol Level 94, LDL Cholesterol 47, HDL Cholesterol 23L, Cholesterol/HDL Ratio 4.1, Thyroid Stimulating Hormone (TSH) 2.050 Height (Feet): 5 Height (Inches): 4.00 Weight (Pounds): 152 Objective General: intubated, sedated Head: normocephalic, without obvious abnormality, atraumatic Eyes: conjunctivae/corneas clear. PERRL, EOM's intact Throat: lips, mucosa, and tongue normal. MMM Neck: supple, symmetrical, trachea midline, and no JVD Lungs: +rhonchi Heart: regular rate and rhythm, S1, S2 normal, no murmur, click, rub or gallop Abdomen: soft, non-tender, non-distended, bowel sounds normal; Extremities: extremities normal, atraumatic, no cyanosis, +BLE edema Pulses: 2+ and symmetric Skin: skin color, texture, turgor normal; no rashes or lesions Neurologic: grossly normal, no focal deficits Priya Clark M.D. May 13, 2017 19:11
[2017-05-13] MEDS: Dyna-Hex 2% Top Sol 2oz TOPIC SCH (19:36)
[2017-05-14] VITALS (24 sets, daily range): BP systolic 100–154; BP diastolic 33–56
[2017-05-14] MEDS: Ipratropium 0.02% Inh Soln 2.5ml UD HHN SCH ×6 (03:59→23:06)
[2017-05-14 05:54] LABS: HEMATOCRIT 23.9 % (37.0-47.0); HEMOGLOBIN 7.8 G/DL (12.0-16.0); MEAN CORPUSCULAR VOLUME 95 FL (80-99); PLATELET COUNT 328 K/UL (150-450); RED BLOOD COUNT 2.51 M/UL (4.20-5.40); RED CELL DISTRIBUTION WIDTH 14.7 % (11.6-14.8); WHITE BLOOD COUNT 19.7 K/UL (4.8-10.8)
[2017-05-14 06:20] LABS: ALANINE AMINOTRANSFERASE 8 U/L (12-78); ALBUMIN 1.4 G/DL (3.4-5.0); ALBUMIN/GLOBULIN RATIO 0.4 (1.0-2.7); ALKALINE PHOSPHATASE 71 U/L (46-116); ANION GAP 8 mmol/L (5-15); ASPARTATE AMINO TRANSFERASE 11 U/L (15-37); BILIRUBIN,TOTAL 0.3 MG/DL (0.2-1.0); BLOOD UREA NITROGEN 8 mg/dL (7-18); CALCIUM 7.8 MG/DL (8.5-10.1); CARBON DIOXIDE 21 MMOL/L (21-32); CHLORIDE 115 MMOL/L (98-107); CREATININE 0.4 MG/DL (0.55-1.30); PHOSPHORUS 1.7 MG/DL (2.5-4.9); POTASSIUM 4.3 MMOL/L (3.5-5.1); SODIUM 144 MMOL/L (136-145)
[2017-05-14] MEDS: Docusate 100mg/10ml Liq ORAL SCH ×2 (09:14→20:36)
[2017-05-14] MEDS: Pantoprazole Inj IV SCH ×2 (09:14→20:34)
[2017-05-14] MEDS: Heparin 5000 units/ml inj SUBQ SCH ×2 (09:16→20:38)
--- NOTE | 2017-05-14 09:20 | Diagnostic Imaging Report ---
Indication: Dyspnea Technique: XRAY Chest 1v Comparison: 05/13/2017 Findings: ET tube and left subclavian central line unchanged in position. Heart size and mediastinal contours are stable. Persistent interstitial opacification/edema and patchy bilateral airspace opacities with small right pleural effusion. Continued interval improved aeration of the right lower lung. Impression: Interstitial and patchy bilateral airspace opacities with continued improved aeration of the right base compared to the prior exam. Support lines/tubes unchanged in position.
--- NOTE | 2017-05-14 09:29 | Pulmonolgy Critical Care Note ---
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, 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 Discussed with: nurses, consultants Critical Care - Objective Last 24 Hour Vital Signs Date Time Temp Pulse Resp B/P (MAP) Pulse Ox O2 Delivery O2 Flow Rate FiO2 05/14/17 08:55 75 24 40 05/14/17 07:09 78 19 100 Mechanical Ventilator 05/14/17 06:59 75 18 40 05/14/17 06:59 75 19 100 Mechanical Ventilator 05/14/17 06:00 63 22 119/41 100 Mechanical Ventilator 40 05/14/17 05:30 62 19 40 05/14/17 05:00 63 21 127/40 100 Mechanical Ventilator 40 05/14/17 04:00 40 05/14/17 04:00 78 20 100 Mechanical Ventilator 05/14/17 04:00 98.7 73 18 120/46 100 Mechanical Ventilator 40 05/14/17 04:00 73 05/14/17 03:59 66 18 100 Mechanical Ventilator 05/14/17 03:30 80 18 40 05/14/17 03:00 68 20 131/49 100 Mechanical Ventilator 40 05/14/17 02:00 74 20 133/50 100 Mechanical Ventilator 40 05/14/17 01:30 65 19 40 05/14/17 01:00 77 21 120/46 99 Mechanical Ventilator 40 05/14/17 00:00 40 05/14/17 00:00 83 05/14/17 00:00 98.9 72 20 154/56 100 Mechanical Ventilator 50 05/13/17 23:09 74 21 100 Mechanical Ventilator 05/13/17 23:09 72 20 99 Mechanical Ventilator 05/13/17 23:08 72 19 40 05/13/17 23:00 69 20 113/38 100 Mechanical Ventilator 50 05/13/17 22:00 69 21 121/38 100 Mechanical Ventilator 50 05/13/17 21:30 74 20 40 05/13/17 21:00 77 23 118/36 100 Mechanical Ventilator 50 05/13/17 20:00 80 05/13/17 20:00 98.8 80 24 109/37 99 Mechanical Ventilator 50 05/13/17 20:00 40 05/13/17 19:48 79 18 100 Mechanical Ventilator 05/13/17 19:47 77 18 100 Mechanical Ventilator 05/13/17 19:30 79 22 40 05/13/17 19:00 67 20 120/41 100 Mechanical Ventilator 50 05/13/17 18:00 83 26 112/48 99 Mechanical Ventilator 50 05/13/17 17:10 75 18 50 05/13/17 17:00 75 21 120/66 98 Mechanical Ventilator 50 05/13/17 16:00 89 05/13/17 16:00 40 05/13/17 16:00 98.9 88 27 110/43 98 Mechanical Ventilator 50 05/13/17 15:00 68 19 113/40 98 Mechanical Ventilator 50 05/13/17 14:54 75 18 100 Mechanical Ventilator 05/13/17 14:48 75 18 50 05/13/17 14:48 78 18 100 Mechanical Ventilator 05/13/17 14:00 78 22 115/54 98 Mechanical Ventilator 50 05/13/17 13:00 98.9 77 24 122/43 98 Mechanical Ventilator 50 05/13/17 12:38 80 18 50 05/13/17 12:00 40 05/13/17 12:00 73 05/13/17 12:00 75 23 117/45 100 Mechanical Ventilator 50 05/13/17 11:00 75 19 122/43 100 Mechanical Ventilator 50 05/13/17 10:55 70 18 100 Mechanical Ventilator 05/13/17 10:48 69 18 99 Mechanical Ventilator 05/13/17 10:48 69 18 50 05/13/17 10:00 70 19 111/43 100 Mechanical Ventilator 50 05/13/17 09:30 123/43 Micro: Microbiology Date/Time Source Procedure Growth Status 05/12/17 14:12 Sputum Gram Stain - Final Resulted 05/12/17 14:12 Sputum Culture - Preliminary Gram Negative Bacillus 1 Resulted Critical Care - Subjective ROS Limited/Unobtainable: No ICU Day: 5 Interval Events: looks comfortable, orally intubated FI02: 40 Vent Support Breath Rate: 18 Vent Support Mode: IMV/SIMV Vent Tidal Volume: 500 Sputum Amount: Small PEEP: 0.0 PIP: 19 Tube Feeding Amount: 30 I&O: Intake and Output 05/13/17 05/14/17 19:00 07:00 Intake Total 1966.60 ml 889.66 ml Output Total 625 ml 550 ml Balance 1341.60 ml 339.66 ml Intake Free Water 100 ml IV Total 1636.60 ml 459.66 ml Tube Feeding 330 ml 330 ml Output Urine Total 625 ml 550 ml # Bowel Movements 3 4 CXR: decrease in RLL infiltrate ET-Tube: 7.5 ET Position: 23 Labs: Laboratory Tests Test 05/14/17 05:00 05/14/17 08:00 05/14/17 08:45 White Blood Count 19.7 K/UL (4.8-10.8) H Red Blood Count 2.51 M/UL (4.20-5.40) L Hemoglobin 7.8 G/DL (12.0-16.0) L Hematocrit 23.9 % (37.0-47.0) L Mean Corpuscular Volume 95 FL (80-99) Mean Corpuscular Hemoglobin 31.0 PG (27.0-31.0) Mean Corpuscular Hemoglobin Concent 32.7 G/DL (32.0-36.0) Red Cell Distribution Width 14.7 % (11.6-14.8) Platelet Count 328 K/UL (150-450) Mean Platelet Volume 5.4 FL (6.5-10.1) L Neutrophils (%) (Auto) % (45.0-75.0) Lymphocytes (%) (Auto) % (20.0-45.0) Monocytes (%) (Auto) % (1.0-10.0) Eosinophils (%) (Auto) % (0.0-3.0) Basophils (%) (Auto) % (0.0-2.0) Differential Total Cells Counted 100 Neutrophils % (Manual) 73 % (45-75) Lymphocytes % (Manual) 14 % (20-45) L Monocytes % (Manual) 7 % (1-10) Eosinophils % (Manual) 6 % (0-3) H Basophils % (Manual) 0 % (0-2) Band Neutrophils 0 % (0-8) Platelet Estimate Adequate Platelet Morphology Normal Hypochromasia 1+ Anisocytosis 1+ Sodium Level 144 MMOL/L (136-145) Potassium Level 4.3 MMOL/L (3.5-5.1) Chloride Level 115 MMOL/L (98-107) H Carbon Dioxide Level 21 MMOL/L (21-32) Anion Gap 8 mmol/L (5-15) Blood Urea Nitrogen 8 mg/dL (7-18) Creatinine 0.4 MG/DL (0.55-1.30) L Estimat Glomerular Filtration Rate mL/min (>60) Glucose Level 144 MG/DL (74-106) H Uric Acid 1.4 MG/DL (2.6-7.2) L Calcium Level 7.8 MG/DL (8.5-10.1) L Phosphorus Level 1.7 MG/DL (2.5-4.9) L Magnesium Level 1.7 MG/DL (1.8-2.4) L Total Bilirubin 0.3 MG/DL (0.2-1.0) Aspartate Amino Transf (AST/SGOT) 11 U/L (15-37) L Alanine Aminotransferase (ALT/SGPT) 8 U/L (12-78) L Alkaline Phosphatase 71 U/L (46-116) Troponin I 0.001 ng/mL (0.000-0.056) Pro-B-Type Natriuretic Peptide 3810 pg/mL (0-125) H Total Protein 5.2 G/DL (6.4-8.2) L Albumin 1.4 G/DL (3.4-5.0) L Globulin 3.8 g/dL Albumin/Globulin Ratio 0.4 (1.0-2.7) L Cortisol AM Sample Pending Vancomycin Level Trough Pending Arterial Blood pH 7.450 (7.350-7.450) Arterial Blood Partial Pressure CO2 28.9 mmHg (35.0-45.0) L Arterial Blood Partial Pressure O2 76.5 mmHg (75.0-100.0) Arterial Blood HCO3 19.6 mmol/L (22.0-26.0) L Arterial Blood Oxygen Saturation 95.1 % (92.0-98.0) Arterial Blood Base Excess -3.7 Kelvin Test Positive DWAYNE CHERY May 14, 2017 09:29
[2017-05-14] MEDS: Vancomycin 750mg/NS 250ml IVPB SCH ×2 (10:17→20:35)
[2017-05-14] MEDS ORDERED: Potassium Phosphate 30 MM in NS 275 ML IV ONE (10:30)
[2017-05-14] MEDS ORDERED: Sodium Phosphate 30 MM in NS 275 ML IV ONE (10:30)
--- NOTE | 2017-05-14 10:31 | Nephrology Progress Note ---
Assessment/Plan Problem List: (1) Acute respiratory failure with hypoxia and hypercapnia (2) Septic shock (3) Renal insufficiency (4) Hypercalcemia Assessment acute renal failure resolving ? CKD underlying Acute respiratory failure septic shock sever Hypercalcemia, corrected for low Albumin HypoAlbuminemia Anemia Dementia Plan Plan: DC IV monitor serum Ca 2D echo- pending increase feeding Phos K and Mag supplement as needed hemodynamic support Aredia given 05/10 monitor renal parameters serum cortisol lvel avoid nephrotoxics per orders Subjective ROS Limited/Unobtainable: Yes Objective Objective Last 24 Hour Vital Signs Date Time Temp Pulse Resp B/P (MAP) Pulse Ox O2 Delivery O2 Flow Rate FiO2 05/14/17 09:30 107/38 05/14/17 09:00 77 30 107/38 99 Mechanical Ventilator 40 05/14/17 09:00 40 05/14/17 08:55 75 24 40 05/14/17 08:00 40 05/14/17 08:00 98.1 70 23 103/43 98 Mechanical Ventilator 40 05/14/17 07:09 78 19 100 Mechanical Ventilator 05/14/17 07:00 70 22 106/33 98 Mechanical Ventilator 40 05/14/17 06:59 75 18 40 05/14/17 06:59 75 19 100 Mechanical Ventilator 05/14/17 06:00 63 22 119/41 100 Mechanical Ventilator 40 05/14/17 05:30 62 19 40 05/14/17 05:00 63 21 127/40 100 Mechanical Ventilator 40 05/14/17 04:00 40 05/14/17 04:00 78 20 100 Mechanical Ventilator 05/14/17 04:00 98.7 73 18 120/46 100 Mechanical Ventilator 40 05/14/17 04:00 73 05/14/17 03:59 66 18 100 Mechanical Ventilator 05/14/17 03:30 80 18 40 05/14/17 03:00 68 20 131/49 100 Mechanical Ventilator 40 05/14/17 02:00 74 20 133/50 100 Mechanical Ventilator 40 05/14/17 01:30 65 19 40 05/14/17 01:00 77 21 120/46 99 Mechanical Ventilator 40 05/14/17 00:00 40 05/14/17 00:00 83 05/14/17 00:00 98.9 72 20 154/56 100 Mechanical Ventilator 50 05/13/17 23:09 74 21 100 Mechanical Ventilator 05/13/17 23:09 72 20 99 Mechanical Ventilator 05/13/17 23:08 72 19 40 05/13/17 23:00 69 20 113/38 100 Mechanical Ventilator 50 05/13/17 22:00 69 21 121/38 100 Mechanical Ventilator 50 05/13/17 21:30 74 20 40 05/13/17 21:00 77 23 118/36 100 Mechanical Ventilator 50 05/13/17 20:00 80 05/13/17 20:00 98.8 80 24 109/37 99 Mechanical Ventilator 50 05/13/17 20:00 40 05/13/17 19:48 79 18 100 Mechanical Ventilator 05/13/17 19:47 77 18 100 Mechanical Ventilator 05/13/17 19:30 79 22 40 05/13/17 19:00 67 20 120/41 100 Mechanical Ventilator 50 05/13/17 18:00 83 26 112/48 99 Mechanical Ventilator 50 05/13/17 17:10 75 18 50 05/13/17 17:00 75 21 120/66 98 Mechanical Ventilator 50 05/13/17 16:00 89 05/13/17 16:00 40 05/13/17 16:00 98.9 88 27 110/43 98 Mechanical Ventilator 50 05/13/17 15:00 68 19 113/40 98 Mechanical Ventilator 50 05/13/17 14:54 75 18 100 Mechanical Ventilator 05/13/17 14:48 75 18 50 05/13/17 14:48 78 18 100 Mechanical Ventilator 05/13/17 14:00 78 22 115/54 98 Mechanical Ventilator 50 05/13/17 13:00 98.9 77 24 122/43 98 Mechanical Ventilator 50 05/13/17 12:38 80 18 50 05/13/17 12:00 40 05/13/17 12:00 73 05/13/17 12:00 75 23 117/45 100 Mechanical Ventilator 50 05/13/17 11:00 75 19 122/43 100 Mechanical Ventilator 50 05/13/17 10:55 70 18 100 Mechanical Ventilator 05/13/17 10:48 69 18 99 Mechanical Ventilator 05/13/17 10:48 69 18 50 Intake and Output 05/13/17 05/14/17 19:00 07:00 Intake Total 1966.60 ml 934.66 ml Output Total 625 ml 580 ml Balance 1341.60 ml 354.66 ml Intake Free Water 100 ml IV Total 1636.60 ml 459.66 ml Tube Feeding 330 ml 375 ml Output Urine Total 625 ml 580 ml # Bowel Movements 3 4 Laboratory Tests 05/14/17 05:00: White Blood Count 19.7H, Red Blood Count 2.51L, Hemoglobin 7.8L, Hematocrit 23.9L, Mean Corpuscular Volume 95, Mean Corpuscular Hemoglobin 31.0, Mean Corpuscular Hemoglobin Concent 32.7, Red Cell Distribution Width 14.7, Platelet Count 328, Mean Platelet Volume 5.4L, Neutrophils (%) (Auto) , Lymphocytes (%) ( Auto) , Monocytes (%) (Auto) , Eosinophils (%) (Auto) , Basophils (%) (Auto) , Differential Total Cells Counted 100, Neutrophils % (Manual) 73, Lymphocytes % ( Manual) 14L, Monocytes % (Manual) 7, Eosinophils % (Manual) 6H, Basophils % ( Manual) 0, Band Neutrophils 0, Platelet Estimate Adequate, Platelet Morphology Normal, Hypochromasia 1+, Anisocytosis 1+, Sodium Level 144, Potassium Level 4.3 , Chloride Level 115H, Carbon Dioxide Level 21, Anion Gap 8, Blood Urea Nitrogen 8, Creatinine 0.4L, Estimat Glomerular Filtration Rate , Glucose Level 144H, Uric Acid 1.4L, Calcium Level 7.8L, Phosphorus Level 1.7L, Magnesium Level 1.7L, Total Bilirubin 0.3, Aspartate Amino Transf (AST/SGOT) 11L, Alanine Aminotransferase (ALT/SGPT) 8L, Alkaline Phosphatase 71, Troponin I 0.001, Pro-B -Type Natriuretic Peptide 3810H, Total Protein 5.2L, Albumin 1.4L, Globulin 3.8 , Albumin/Globulin Ratio 0.4L, Cortisol AM Sample [Pending] 05/14/17 08:00: Vancomycin Level Trough 13.1H 05/14/17 08:45: Arterial Blood pH 7.450, Arterial Blood Partial Pressure CO2 28.9L, Arterial Blood Partial Pressure O2 76.5, Arterial Blood HCO3 19.6L, Arterial Blood Oxygen Saturation 95.1, Arterial Blood Base Excess -3.7, Kelvin Test Positive Height (Feet): 5 Height (Inches): 4.00 Weight (Pounds): 152 General Appearance: no apparent distress EENT: other - remains intubated Cardiovascular: normal rate Respiratory/Chest: decreased breath sounds Abdomen: soft Objective no other changes ALYSON FLANAGAN May 14, 2017 10:31
--- NOTE | 2017-05-14 11:13 | Cardiology Report ---
APPROVED REPORT EXAM: Two-dimensional and M-mode echocardiogram with Doppler and color Doppler. INDICATION Congestive Heart Failure M-Mode DIMENSIONS Left Atrium (MM)3.7 (1.6-4.0cm) Aortic Root2.9 (2.0-3.7cm) Aortic Cusp Exc.1.4 (1.5-2.0cm) Technically difficult study due to poor acoustical windows and patient breathing. M-mode measurements of left ventricle not obtainable due to cardiac position (angle) Normal left ventricular chamber size, systolic function and wall motion to extent visualized. Left ventricular ejection fraction estimated to be 65-70%. No evidence of left ventricular hypertrophy . No evidence of pericardial effusion . All other cardiac chamber size are within normal limits . Focal aortic valve sclerosis with adequate cusp excursion. Mild Thickened mitral valve leaflets with normal excursion. Mild Mitral annulus and aortic root calcification. Pulmonic valve not well visualized. Normal tricuspid valve structure. IVC at size 1.9 without physiologic collapse. A color flow and spectral Doppler study was performed and revealed: No aortic regurgitation. Normal left ventricular diastolic function. Mild tricuspid regurgitation. Mitral diastolic velocities suggest reduced left ventricular relaxation c/w mild LV diastolic dysfunction (Grade I ). Tricuspid systolic velocities suggests peak right ventricular systolic pressure of 17mmHg. No Pulmonic regurgitation present.
[2017-05-14] MEDS: Zosyn 3.375gm q8h **Extended infusion IVPB SCH ×4 (12:45→22:05)
--- NOTE | 2017-05-14 15:31 | General Progress Note ---
Assessment/Plan Problem List: (1) Septic shock ICD Codes: A41.9 - Sepsis, unspecified organism; R65.21 - Severe sepsis with septic shock SNOMED: 57182094 (2) Acute respiratory failure with hypoxia and hypercapnia ICD Codes: J96.01 - Acute respiratory failure with hypoxia; J96.02 - Acute respiratory failure with hypercapnia SNOMED: 41684102, 40510556, 846740696 (3) Aspiration pneumonia ICD Codes: J69.0 - Pneumonitis due to inhalation of food and vomit SNOMED: 589339089 Qualifiers: Qualified Codes: J69.0 - Pneumonitis due to inhalation of food and vomit (4) Toxic metabolic encephalopathy ICD Codes: G92 - Toxic encephalopathy SNOMED: 407184467 (5) JUJU (acute kidney injury) ICD Codes: N17.9 - Acute kidney failure, unspecified SNOMED: 91969545 (6) Hyponatremia ICD Codes: E87.1 - Hyponatremia SNOMED: 54340303 (7) Hyperkalemia ICD Codes: E87.5 - Hyperkalemia SNOMED: 26679271 (8) Seizure disorder ICD Codes: G40.909 - Epilepsy, unspecified, not intractable, without status epilepticus SNOMED: 162928621 (9) DVT/PE (10) Dementia ICD Codes: F03.90 - Dementia SNOMED: 29993682 (11) S/P percutaneous endoscopic gastrostomy (PEG) tube placement ICD Codes: Z93.1 - Gastrostomy status SNOMED: 979408256 (12) Hypercalcemia ICD Codes: E83.52 - Hypercalcemia SNOMED: 19120528 Status: stable Assessment/Plan Cont ICU care Pulm consulted Cont on vent and wean as tolerated Now off pressors ID consulted Cont broad-spectrum abx: vanco and zosyn (05/09-), flagyl added (05/10-) F/u cultures Trend CBC Trend ABG Monitor CXR Renal consulted IVFs given JUJU Trend CBC Cont tube feeds via PEG Cont home meds including Eliuqis Cont other home meds including depakote Pain control, supportive care, bowel regimen DVT ppx: Eliquis GI ppx: PPI Dispo: pending further stabilization, cont ICU care FULL CODE per discussion w/ daughter At the time of my involvement, the patient's condition was critical with high potential for and/or physiologic deterioration secondary to acute respiratory failure 2/2 aspiration pneumonia, sepsis, acute encephalopathy as delineated in the note above. On the above date of service, I spent a total of 37 minutes in the ICU evaluating, managing, and providing critical care services to this patient, including time spent documenting these activities, counseling patient/family, and coordinating care. Critical care services performed include: Telemetry Review Hemodynamic measurement interpretation Laboratory data review and interpretation Ventilator setting review, management, and adjustment Discussion of care plans with patient, family, and/or surrogate decision makers Discussion of patient's care with primary medical team, surgical team, and/or consulting service Decision to obtain further radiologic evaluation, after consideration of risk/ benefit ratio Decision to perform invasive procedure, after consideration of risk/benefit ratio Review of most recent microbiology results with assessment and modification of antimicrobial coverage Discussion of patient's code status and further advancement towards the ultimate goals of care Plan outlined above discussed with patient/family, DIGITAL IMAGING TECHNICIAN, 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 D/w pt's daughter regarding plan of care D/w ID re abx Time of note may not reflect time of encounter Subjective Date patient seen: May 14, 2017 Time patient seen: 15:31 ROS Limited/Unobtainable: Yes Allergies: Coded Allergies: NO KNOWN DRUG ALLERGIES (Unverified Allergy, Unknown, 07/29/14) Subjective No acute o/n events Now off pressors SBT attempted this AM but pt failed Pt intubated, sedated Unable to obtain ROS as pt sedated Objective Last 24 Hour Vital Signs Date Time Temp Pulse Resp B/P (MAP) Pulse Ox O2 Delivery O2 Flow Rate FiO2 05/14/17 15:24 69 18 99 Mechanical Ventilator 05/14/17 15:18 77 24 40 05/14/17 15:18 79 16 100 Mechanical Ventilator 05/14/17 14:00 87 27 118/46 96 Mechanical Ventilator 40 05/14/17 13:00 72 28 111/43 98 Mechanical Ventilator 40 05/14/17 12:42 72 25 40 05/14/17 12:00 76 05/14/17 12:00 99.2 70 30 112/43 99 Mechanical Ventilator 40 05/14/17 12:00 40 05/14/17 11:00 72 30 108/42 100 Mechanical Ventilator 40 05/14/17 10:46 67 16 100 Mechanical Ventilator 05/14/17 10:37 69 16 40 05/14/17 10:37 67 16 100 Mechanical Ventilator 05/14/17 10:00 69 20 111/36 100 Mechanical Ventilator 40 05/14/17 09:30 107/38 05/14/17 09:00 77 30 107/38 99 Mechanical Ventilator 40 05/14/17 09:00 40 05/14/17 08:55 75 24 40 05/14/17 08:00 104 05/14/17 08:00 40 05/14/17 08:00 98.1 70 23 103/43 98 Mechanical Ventilator 40 05/14/17 07:09 78 19 100 Mechanical Ventilator 05/14/17 07:00 70 22 106/33 98 Mechanical Ventilator 40 05/14/17 06:59 75 18 40 05/14/17 06:59 75 19 100 Mechanical Ventilator 05/14/17 06:00 63 22 119/41 100 Mechanical Ventilator 40 05/14/17 05:30 62 19 40 05/14/17 05:00 63 21 127/40 100 Mechanical Ventilator 40 05/14/17 04:00 40 05/14/17 04:00 78 20 100 Mechanical Ventilator 05/14/17 04:00 98.7 73 18 120/46 100 Mechanical Ventilator 40 05/14/17 04:00 73 05/14/17 03:59 66 18 100 Mechanical Ventilator 05/14/17 03:30 80 18 40 05/14/17 03:00 68 20 131/49 100 Mechanical Ventilator 40 05/14/17 02:00 74 20 133/50 100 Mechanical Ventilator 40 05/14/17 01:30 65 19 40 05/14/17 01:00 77 21 120/46 99 Mechanical Ventilator 40 05/14/17 00:00 40 05/14/17 00:00 83 05/14/17 00:00 98.9 72 20 154/56 100 Mechanical Ventilator 50 05/13/17 23:09 74 21 100 Mechanical Ventilator 05/13/17 23:09 72 20 99 Mechanical Ventilator 05/13/17 23:08 72 19 40 05/13/17 23:00 69 20 113/38 100 Mechanical Ventilator 50 05/13/17 22:00 69 21 121/38 100 Mechanical Ventilator 50 05/13/17 21:30 74 20 40 05/13/17 21:00 77 23 118/36 100 Mechanical Ventilator 50 05/13/17 20:00 80 05/13/17 20:00 98.8 80 24 109/37 99 Mechanical Ventilator 50 05/13/17 20:00 40 05/13/17 19:48 79 18 100 Mechanical Ventilator 05/13/17 19:47 77 18 100 Mechanical Ventilator 05/13/17 19:30 79 22 40 05/13/17 19:00 67 20 120/41 100 Mechanical Ventilator 50 05/13/17 18:00 83 26 112/48 99 Mechanical Ventilator 50 05/13/17 17:10 75 18 50 05/13/17 17:00 75 21 120/66 98 Mechanical Ventilator 50 05/13/17 16:00 89 05/13/17 16:00 40 05/13/17 16:00 98.9 88 27 110/43 98 Mechanical Ventilator 50 Intake and Output 05/13/17 05/14/17 19:00 07:00 Intake Total 1966.60 ml 934.66 ml Output Total 625 ml 580 ml Balance 1341.60 ml 354.66 ml Intake Free Water 100 ml IV Total 1636.60 ml 459.66 ml Tube Feeding 330 ml 375 ml Output Urine Total 625 ml 580 ml # Bowel Movements 3 4 Laboratory Tests 05/14/17 05:00: White Blood Count 19.7H, Red Blood Count 2.51L, Hemoglobin 7.8L, Hematocrit 23.9L, Mean Corpuscular Volume 95, Mean Corpuscular Hemoglobin 31.0, Mean Corpuscular Hemoglobin Concent 32.7, Red Cell Distribution Width 14.7, Platelet Count 328, Mean Platelet Volume 5.4L, Neutrophils (%) (Auto) , Lymphocytes (%) ( Auto) , Monocytes (%) (Auto) , Eosinophils (%) (Auto) , Basophils (%) (Auto) , Differential Total Cells Counted 100, Neutrophils % (Manual) 73, Lymphocytes % ( Manual) 14L, Monocytes % (Manual) 7, Eosinophils % (Manual) 6H, Basophils % ( Manual) 0, Band Neutrophils 0, Platelet Estimate Adequate, Platelet Morphology Normal, Hypochromasia 1+, Anisocytosis 1+, Sodium Level 144, Potassium Level 4.3 , Chloride Level 115H, Carbon Dioxide Level 21, Anion Gap 8, Blood Urea Nitrogen 8, Creatinine 0.4L, Estimat Glomerular Filtration Rate , Glucose Level 144H, Uric Acid 1.4L, Calcium Level 7.8L, Phosphorus Level 1.7L, Magnesium Level 1.7L, Total Bilirubin 0.3, Aspartate Amino Transf (AST/SGOT) 11L, Alanine Aminotransferase (ALT/SGPT) 8L, Alkaline Phosphatase 71, Troponin I 0.001, Pro-B -Type Natriuretic Peptide 3810H, Total Protein 5.2L, Albumin 1.4L, Globulin 3.8 , Albumin/Globulin Ratio 0.4L, Cortisol AM Sample 12.4 05/14/17 08:00: Vancomycin Level Trough 13.1H 05/14/17 08:45: Arterial Blood pH 7.450, Arterial Blood Partial Pressure CO2 28.9L, Arterial Blood Partial Pressure O2 76.5, Arterial Blood HCO3 19.6L, Arterial Blood Oxygen Saturation 95.1, Arterial Blood Base Excess -3.7, Kelvin Test Positive Height (Feet): 5 Height (Inches): 4.00 Weight (Pounds): 152 Objective General: intubated, sedated Head: normocephalic, without obvious abnormality, atraumatic Eyes: conjunctivae/corneas clear. PERRL, EOM's intact Throat: lips, mucosa, and tongue normal. MMM Neck: supple, symmetrical, trachea midline, and no JVD Lungs: +rhonchi Heart: regular rate and rhythm, S1, S2 normal, no murmur, click, rub or gallop Abdomen: soft, non-tender, non-distended, bowel sounds normal; Extremities: extremities normal, atraumatic, no cyanosis, +BLE edema Pulses: 2+ and symmetric Skin: skin color, texture, turgor normal; no rashes or lesions Neurologic: grossly normal, no focal deficits Prachi Mejia M.D. May 14, 2017 15:31
[2017-05-14] MEDS ORDERED: dilTIAZem HCl 25mg/5ml Inj IVP PRN ×3 (18:45→19:30)
--- NOTE | 2017-05-14 19:22 | Infectious Diseases Prog Note ---
Assessment/Plan Assessment/Plan ASSESSMENT AND PLAN: 1. sepsis, shock, gram neg rojas, ? pseudomonas sacral wound infection, vent, ? c.diff., leukocytosis, fevers, sirs, bc/uc/influenza negative, vent - zosyn, falgyl and vancomycin - lotrimin for possible fungal rash - check sc, labs, chest x-ray and c.diff - off pressors now - skin care per protocol 2. respiratory failure, on vent, icu care 3. Acute kidney injury, elevated creatinine. 4. Hypertension. 5. Diabetes. 6. Asthma. 7. Alzheimer's with some dementia. 8. Cerebrovascular accident. 9. Aspiration risk. 10. Anemia. 11. Seizures. 12. Memory loss. 13. Past medical history as noted. 14. No allergy. 15. Social history is negative. 16. Family history noncontributory. 17. Case discussed with RN. 18. MAR was noted. 19. Continue treatment per primary consultants. 20. Skin care protocol. 21. Possible fungal rash. Continue cream. 22. Questionable drug rash. 23. Continue supportive care. 24. Critical condition. 25. Notes were reviewed. Subjective Constitutional: Reports: fatigue, other - on vent, no pressors , Denies: fever HEENT: Reports: congestion Respiratory: Reports: shortness of breath Cardiovascular: Denies: chest pain Gastrointestinal/Abdominal: Denies: nausea, vomiting, diarrhea Genitourinary: Reports: other - + cota Neurologic: Reports: weakness, other - alert Psychiatric: Reports: other - na Skin: Denies: rash Hematologic: Denies: bleeding Musculoskeletal: Reports: other - na Allergies: Coded Allergies: NO KNOWN DRUG ALLERGIES (Unverified Allergy, Unknown, 07/29/14) Objective Vital Signs Last 24 Hour Vital Signs Date Time Temp Pulse Resp B/P (MAP) Pulse Ox O2 Delivery O2 Flow Rate FiO2 05/14/17 18:00 80 19 109/47 97 Mechanical Ventilator 40 05/14/17 17:20 66 18 40 05/14/17 17:00 71 19 100/42 98 Mechanical Ventilator 40 05/14/17 16:00 40 05/14/17 16:00 70 05/14/17 16:00 99.1 75 21 111/41 98 Mechanical Ventilator 40 05/14/17 15:24 69 18 99 Mechanical Ventilator 05/14/17 15:18 77 24 40 05/14/17 15:18 79 16 100 Mechanical Ventilator 05/14/17 15:00 69 22 112/40 97 Mechanical Ventilator 40 05/14/17 14:00 87 27 118/46 96 Mechanical Ventilator 40 05/14/17 13:00 72 28 111/43 98 Mechanical Ventilator 40 05/14/17 12:42 72 25 40 05/14/17 12:00 76 05/14/17 12:00 99.2 70 30 112/43 99 Mechanical Ventilator 40 05/14/17 12:00 40 05/14/17 11:00 72 30 108/42 100 Mechanical Ventilator 40 05/14/17 10:46 67 16 100 Mechanical Ventilator 05/14/17 10:37 69 16 40 05/14/17 10:37 67 16 100 Mechanical Ventilator 05/14/17 10:00 69 20 111/36 100 Mechanical Ventilator 40 05/14/17 09:30 107/38 05/14/17 09:00 77 30 107/38 99 Mechanical Ventilator 40 05/14/17 09:00 40 05/14/17 08:55 75 24 40 05/14/17 08:00 104 05/14/17 08:00 40 05/14/17 08:00 98.1 70 23 103/43 98 Mechanical Ventilator 40 05/14/17 07:09 78 19 100 Mechanical Ventilator 05/14/17 07:00 70 22 106/33 98 Mechanical Ventilator 40 05/14/17 06:59 75 18 40 05/14/17 06:59 75 19 100 Mechanical Ventilator 05/14/17 06:00 63 22 119/41 100 Mechanical Ventilator 40 05/14/17 05:30 62 19 40 05/14/17 05:00 63 21 127/40 100 Mechanical Ventilator 40 05/14/17 04:00 40 05/14/17 04:00 78 20 100 Mechanical Ventilator 05/14/17 04:00 98.7 73 18 120/46 100 Mechanical Ventilator 40 05/14/17 04:00 73 05/14/17 03:59 66 18 100 Mechanical Ventilator 05/14/17 03:30 80 18 40 05/14/17 03:00 68 20 131/49 100 Mechanical Ventilator 40 05/14/17 02:00 74 20 133/50 100 Mechanical Ventilator 40 05/14/17 01:30 65 19 40 05/14/17 01:00 77 21 120/46 99 Mechanical Ventilator 40 05/14/17 00:00 40 05/14/17 00:00 83 05/14/17 00:00 98.9 72 20 154/56 100 Mechanical Ventilator 50 05/13/17 23:09 74 21 100 Mechanical Ventilator 05/13/17 23:09 72 20 99 Mechanical Ventilator 05/13/17 23:08 72 19 40 05/13/17 23:00 69 20 113/38 100 Mechanical Ventilator 50 05/13/17 22:00 69 21 121/38 100 Mechanical Ventilator 50 05/13/17 21:30 74 20 40 05/13/17 21:00 77 23 118/36 100 Mechanical Ventilator 50 05/13/17 20:00 80 05/13/17 20:00 98.8 80 24 109/37 99 Mechanical Ventilator 50 05/13/17 20:00 40 05/13/17 19:48 79 18 100 Mechanical Ventilator 05/13/17 19:47 77 18 100 Mechanical Ventilator 05/13/17 19:30 79 22 40 Height (Feet): 5 Height (Inches): 4.00 Weight (Pounds): 152 General Appearance: other - on vent, no pressors HEENT: normocephalic, atraumatic, anicteric, EOMI, no JVD Respiratory/Chest: crackles/rales, rhonchi - bilaterally Cardiovascular: normal rate, regular rhythm, no gallop/murmur, no JVD Abdomen: normal bowel sounds, soft, non tender, no organomegaly, non distended Genitourinary: other - + cota - urine clear Extremities: no cyanosis Skin: no rash Neurologic/Psychiatric: research spec II-XII grossly normal, alert, responsive Lymphatic: no neck adenopathy Musculoskeletal: no effusion Objective 05/12 - chest x-ray - Findings: ET tube and left subclavian central line unchanged in position. Heart size and mediastinal contours are stable. Persistent interstitial opacification/ edema and patchy bilateral airspace opacities with small right pleural effusion. Interval development of a small left lateral pleural effusion and increased left base/retrocardiac opacities. No pneumothorax.. Gastrostomy tube partially visualized. Impression: Slight interval worsening of aeration with development of small left pleural effusion and increasing left basilar atelectasis/consolidation. Support lines and tubes unchanged 05/14 - chest x-ray: Impression: Interstitial and patchy bilateral airspace opacities with continued improved aeration of the right base compared to the prior exam. Support lines/tubes unchanged in position. Microbiology Date/Time Source Procedure Growth Status 05/09/17 20:10 Blood Blood Culture - Preliminary NO GROWTH AFTER 4 DAYS Resulted 05/12/17 14:12 Sputum Gram Stain - Final Resulted 05/12/17 14:12 Sputum Culture - Preliminary Gram Negative Bacillus 1 Resulted 05/10/17 14:35 Urine,Clean Catch Urine Culture - Final NO GROWTH AFTER 48 HOURS Complete 05/10/17 10:00 Sacral Wound Gram Stain - Final Complete 05/10/17 10:00 Wound Culture - Final Pseudomonas Aeruginosa Zaria Albicans Usual Skin Beckie Complete Microbiology Date/Time Source Procedure Growth Status 05/12/17 14:12 Sputum Gram Stain - Final Resulted 05/12/17 14:12 Sputum Culture - Preliminary Gram Negative Bacillus 1 Resulted Laboratory Tests Test 05/14/17 05:00 05/14/17 08:00 05/14/17 08:45 White Blood Count 19.7 K/UL (4.8-10.8) H Red Blood Count 2.51 M/UL (4.20-5.40) L Hemoglobin 7.8 G/DL (12.0-16.0) L Hematocrit 23.9 % (37.0-47.0) L Mean Corpuscular Volume 95 FL (80-99) Mean Corpuscular Hemoglobin 31.0 PG (27.0-31.0) Mean Corpuscular Hemoglobin Concent 32.7 G/DL (32.0-36.0) Red Cell Distribution Width 14.7 % (11.6-14.8) Platelet Count 328 K/UL (150-450) Mean Platelet Volume 5.4 FL (6.5-10.1) L Neutrophils (%) (Auto) % (45.0-75.0) Lymphocytes (%) (Auto) % (20.0-45.0) Monocytes (%) (Auto) % (1.0-10.0) Eosinophils (%) (Auto) % (0.0-3.0) Basophils (%) (Auto) % (0.0-2.0) Differential Total Cells Counted 100 Neutrophils % (Manual) 73 % (45-75) Lymphocytes % (Manual) 14 % (20-45) L Monocytes % (Manual) 7 % (1-10) Eosinophils % (Manual) 6 % (0-3) H Basophils % (Manual) 0 % (0-2) Band Neutrophils 0 % (0-8) Platelet Estimate Adequate Platelet Morphology Normal Hypochromasia 1+ Anisocytosis 1+ Sodium Level 144 MMOL/L (136-145) Potassium Level 4.3 MMOL/L (3.5-5.1) Chloride Level 115 MMOL/L (98-107) H Carbon Dioxide Level 21 MMOL/L (21-32) Anion Gap 8 mmol/L (5-15) Blood Urea Nitrogen 8 mg/dL (7-18) Creatinine 0.4 MG/DL (0.55-1.30) L Estimat Glomerular Filtration Rate mL/min (>60) Glucose Level 144 MG/DL (74-106) H Uric Acid 1.4 MG/DL (2.6-7.2) L Calcium Level 7.8 MG/DL (8.5-10.1) L Phosphorus Level 1.7 MG/DL (2.5-4.9) L Magnesium Level 1.7 MG/DL (1.8-2.4) L Total Bilirubin 0.3 MG/DL (0.2-1.0) Aspartate Amino Transf (AST/SGOT) 11 U/L (15-37) L Alanine Aminotransferase (ALT/SGPT) 8 U/L (12-78) L Alkaline Phosphatase 71 U/L (46-116) Troponin I 0.001 ng/mL (0.000-0.056) Pro-B-Type Natriuretic Peptide 3810 pg/mL (0-125) H Total Protein 5.2 G/DL (6.4-8.2) L Albumin 1.4 G/DL (3.4-5.0) L Globulin 3.8 g/dL Albumin/Globulin Ratio 0.4 (1.0-2.7) L Cortisol AM Sample 12.4 UG/DL (6.0-18.4) Vancomycin Level Trough 13.1 ug/mL (5.0-12.0) H Arterial Blood pH 7.450 (7.350-7.450) Arterial Blood Partial Pressure CO2 28.9 mmHg (35.0-45.0) L Arterial Blood Partial Pressure O2 76.5 mmHg (75.0-100.0) Arterial Blood HCO3 19.6 mmol/L (22.0-26.0) L Arterial Blood Oxygen Saturation 95.1 % (92.0-98.0) Arterial Blood Base Excess -3.7 Kelvin Test Positive Current Medications Medications (Trade) Dose Ordered Sig/Jacque Route PRN Reason Start Time Stop Time Status Last Admin Dose Admin Acetaminophen (Tylenol) 650 mg Q4H PRN RECTAL FEVER 05/10/17 01:45 06/09/17 01:44 Acetaminophen (Tylenol) 650 mg Q4H PRN RECTAL Mild Pain (Pain Scale 1-3) 05/10/17 01:45 06/09/17 01:44 Bisacodyl (Dulcolax) 10 mg DAILYPRN PRN RECTAL Constipation 05/10/17 01:45 06/09/17 01:44 Chlorhexidine Gluconate (Laly-Hex 2%) 1 applic DAILY@1999 TOPIC 05/13/17 20:00 06/12/17 19:59 05/13/17 19:36 Clotrimazole (Lotrimin) 1 applic EVERY 12 HOURS TOPIC 05/10/17 15:00 06/09/17 14:59 05/14/17 09:14 Dextrose (Dextrose 50%) STAT PRN IV Hypoglycemia 05/10/17 01:45 06/09/17 01:44 Diltiazem HCl (Cardizem) 10 mg Q1HR PRN IVP SBP more than 120 05/14/17 19:15 06/13/17 19:14 UNV Docusate Sodium (Colace) 100 mg EVERY 12 HOURS ORAL 05/11/17 10:00 06/10/17 09:59 05/14/17 09:14 Heparin Sodium (Porcine) (Heparin 5000 units/ml) 5,000 units EVERY 12 HOURS SUBQ 05/10/17 09:00 06/09/17 08:59 05/14/17 09:16 Ipratropium [place] (Atrovent) 500 mcg Q4H PRN HHN Shortness of Breath 05/10/17 01:45 05/15/17 01:44 Ipratropium [place] (Atrovent) 500 mcg Q4HRT HHN 05/10/17 07:00 05/15/17 06:59 05/14/17 15:18 Metronidazole 100 ml @ 100 mls/hr Q8HR IVPB 05/10/17 23:00 05/17/17 22:59 05/14/17 15:46 Norepinephrine Bitartrate 8 mg/ Dextrose 254 ml @ 0 mls/hr Q24H IV 05/10/17 09:30 06/09/17 05:59 05/11/17 11:34 Ondansetron HCl (Zofran) 4 mg Q6H PRN IVP Nausea & Vomiting 05/10/17 01:45 06/09/17 01:44 Pantoprazole (Protonix) 40 mg Q12HR IV 05/10/17 21:00 06/09/17 20:59 05/14/17 09:14 Piperacillin Sod/ Tazobactam Sod 3.375 gm/Sodium Chloride 110 ml @ 27.5 mls/hr EVERY 8 HOURS IVPB 05/14/17 11:00 05/19/17 10:59 05/14/17 12:45 Polyethylene Glycol (Miralax) 17 gm DAILYPRN PRN ORAL Constipation 05/10/17 01:45 06/09/17 01:44 Vancomycin HCl (Vanco rx to dose) 1 ea DAILY PRN MISC Per rx protocol 05/10/17 01:45 06/09/17 01:44 Vancomycin/Sodium Chloride 250 ml @ 166.667 mls/hr Q12HR IVPB 05/12/17 09:00 05/17/17 08:59 05/14/17 10:17 TIERA PRADO May 14, 2017 19:22
[2017-05-14] MEDS: Dyna-Hex 2% Top Sol 2oz TOPIC SCH (20:22)
[2017-05-15] VITALS (24 sets, daily range): BP systolic 101–137; BP diastolic 36–79
[2017-05-15] MEDS: Ipratropium 0.02% Inh Soln 2.5ml UD HHN SCH ×2 (03:39→06:53)
[2017-05-15] MEDS: Zosyn 3.375gm q8h **Extended infusion IVPB SCH ×6 (06:06→21:37)
[2017-05-15 06:26] LABS: BASOPHILS % (AUTO) 0.4 % (0.0-2.0); EOSINOPHILS % (AUTO) 5.6 % (0.0-3.0); HEMATOCRIT 26.7 % (37.0-47.0); HEMOGLOBIN 8.7 G/DL (12.0-16.0); LYMPHOCYTES % (AUTO) 13.7 % (20.0-45.0); MEAN CORPUSCULAR VOLUME 95 FL (80-99); MONOCYTES % (AUTO) 7.2 % (1.0-10.0); NEUTROPHILS % (AUTO) 73.1 % (45.0-75.0); PLATELET COUNT 363 K/UL (150-450); RED BLOOD COUNT 2.82 M/UL (4.20-5.40); RED CELL DISTRIBUTION WIDTH 14.9 % (11.6-14.8); WHITE BLOOD COUNT 17.1 K/UL (4.8-10.8)
[2017-05-15 06:33] LABS: ALANINE AMINOTRANSFERASE 7 U/L (12-78); ALBUMIN 1.4 G/DL (3.4-5.0); ALBUMIN/GLOBULIN RATIO 0.4 (1.0-2.7); ALKALINE PHOSPHATASE 65 U/L (46-116); ANION GAP 8 mmol/L (5-15); ASPARTATE AMINO TRANSFERASE 11 U/L (15-37); BILIRUBIN,TOTAL 0.3 MG/DL (0.2-1.0); BLOOD UREA NITROGEN 7 mg/dL (7-18); CALCIUM 7.5 MG/DL (8.5-10.1); CARBON DIOXIDE 21 MMOL/L (21-32); CHLORIDE 116 MMOL/L (98-107); CREATININE 0.4 MG/DL (0.55-1.30); PHOSPHORUS 1.6 MG/DL (2.5-4.9); SODIUM 145 MMOL/L (136-145)
[2017-05-15] MEDS: Docusate 100mg/10ml Liq ORAL SCH ×2 (09:00→20:56)
[2017-05-15] MEDS ORDERED: Potassium Phosphate 20 MM in NS 275 ML IV ONE (09:30)
[2017-05-15] MEDS: Pantoprazole Inj IV SCH ×2 (10:08→20:54)
[2017-05-15] MEDS: Vancomycin 750mg/NS 250ml IVPB SCH ×2 (10:09→20:55)
[2017-05-15] MEDS: Heparin 5000 units/ml inj SUBQ SCH ×2 (10:10→21:00)
--- NOTE | 2017-05-15 11:22 | Pulmonolgy Critical Care Note ---
Critical Care - Asmt/Plan Problems: (1) Acute respiratory failure with hypoxia and hypercapnia (2) Acute encephalopathy (3) Sepsis (4) Aspiration pneumonia Respiratory: monitor respiratory rate, adjust FIO2, CXR, weaning trial Cardiac: continue to monitor HR/BP Renal: F/U I&O, keep IV fluid Infectious Disease: check cultures, continue antibiotics Gastrointestinal: continue feedings/current rate Endocrine: monitor blood sugar, check TSH, check HgA1C, continue sliding scale insulin Hematologic: monitor H/H, transfuse if hgb<8.5 Neurologic: PRN Ativan, PRN Morphine, keep patient comfortable Affect: PRN ativan Prophylaxis: Heparin Notes Reviewed: camp manager, renal Discussed with: nurses, consultants, correctional case managerremote sensing program manager - Objective Last 24 Hour Vital Signs Date Time Temp Pulse Resp B/P (MAP) Pulse Ox O2 Delivery O2 Flow Rate FiO2 05/15/17 10:52 63 28 40 05/15/17 10:00 66 25 110/38 99 Mechanical Ventilator 40 05/15/17 09:30 110/38 05/15/17 09:00 67 27 108/38 99 Mechanical Ventilator 40 05/15/17 08:55 99 05/15/17 08:54 69 26 40 05/15/17 08:00 99.2 66 22 103/41 99 Mechanical Ventilator 40 05/15/17 07:04 70 20 100 Mechanical Ventilator 40 05/15/17 07:00 71 19 127/43 99 Mechanical Ventilator 40 05/15/17 06:53 76 20 99 Mechanical Ventilator 40 05/15/17 06:49 69 22 40 05/15/17 06:00 40 05/15/17 06:00 63 22 120/36 99 Mechanical Ventilator 40 05/15/17 05:23 67 20 40 05/15/17 05:00 62 21 101/79 100 Mechanical Ventilator 40 05/15/17 04:00 57 05/15/17 04:00 40 05/15/17 04:00 99.2 57 18 137/46 100 Mechanical Ventilator 40 05/15/17 03:47 71 19 100 Mechanical Ventilator 05/15/17 03:38 66 22 40 05/15/17 03:38 66 22 99 Mechanical Ventilator 05/15/17 03:00 64 21 124/48 100 Mechanical Ventilator 40 05/15/17 02:00 71 22 131/53 99 Mechanical Ventilator 40 05/15/17 02:00 40 05/15/17 01:20 69 19 40 05/15/17 01:00 70 20 124/50 98 Mechanical Ventilator 40 05/15/17 00:00 98.9 79 24 117/62 97 Mechanical Ventilator 40 05/15/17 00:00 79 05/14/17 23:18 75 19 100 Mechanical Ventilator 05/14/17 23:08 67 23 99 Mechanical Ventilator 05/14/17 23:06 69 23 40 05/14/17 23:00 67 20 114/44 98 Mechanical Ventilator 40 05/14/17 22:00 72 22 120/44 97 Mechanical Ventilator 40 05/14/17 21:26 70 24 40 05/14/17 21:00 73 24 113/39 98 Mechanical Ventilator 40 05/14/17 20:09 71 19 100 Mechanical Ventilator 05/14/17 20:00 40 05/14/17 20:00 99.2 78 24 117/44 97 Mechanical Ventilator 40 05/14/17 20:00 78 05/14/17 19:33 73 24 40 05/14/17 19:32 73 21 98 Mechanical Ventilator 05/14/17 19:00 72 21 105/39 98 Mechanical Ventilator 40 05/14/17 18:00 80 19 109/47 97 Mechanical Ventilator 40 05/14/17 17:20 66 18 40 05/14/17 17:00 71 19 100/42 98 Mechanical Ventilator 40 05/14/17 16:00 40 05/14/17 16:00 70 05/14/17 16:00 99.1 75 21 111/41 98 Mechanical Ventilator 40 05/14/17 15:24 69 18 99 Mechanical Ventilator 05/14/17 15:18 77 24 40 05/14/17 15:18 79 16 100 Mechanical Ventilator 05/14/17 15:00 69 22 112/40 97 Mechanical Ventilator 40 05/14/17 14:00 87 27 118/46 96 Mechanical Ventilator 40 05/14/17 13:00 72 28 111/43 98 Mechanical Ventilator 40 05/14/17 12:42 72 25 40 05/14/17 12:00 76 05/14/17 12:00 99.2 70 30 112/43 99 Mechanical Ventilator 40 05/14/17 12:00 40 Status: awake Condition: critical HEENT: atraumatic Neck: full ROM Lungs: clear Heart: HR/BP stable, HR/BP unstable Abdomen: soft, non-tender, feeding tube Extremities: no C/C/E Decubiti: location Micro: Microbiology Date/Time Source Procedure Growth Status 05/12/17 14:12 Sputum Gram Stain - Final Resulted 05/12/17 14:12 Sputum Culture - Preliminary Gram Negative Bacillus 1 Gram Negative Bacillus 2 Resulted Critical Care - Subjective ROS Limited/Unobtainable: No ICU Day: 6 Condition: critical EKG Rhythm: Sinus Rhythm FI02: 40 Vent Support Breath Rate: 18 Vent Support Mode: IMV/SIMV Vent Tidal Volume: 500 Sputum Amount: Small PEEP: 0.0 PIP: 23 Tube Feeding Amount: 45 I&O: Intake and Output 05/14/17 05/15/17 19:00 07:00 Intake Total 540 ml 1150.0 ml Output Total 460 ml 465 ml Balance 80 ml 685.0 ml Intake Free Water 150 ml IV Total 460.0 ml Tube Feeding 540 ml 540 ml Output Urine Total 460 ml 465 ml # Bowel Movements 1 4 CXR: no change, ET in good position ET-Tube: 7.5 ET Position: 23 Labs: Laboratory Tests Test 05/15/17 04:00 White Blood Count 17.1 K/UL (4.8-10.8) H Red Blood Count 2.82 M/UL (4.20-5.40) L Hemoglobin 8.7 G/DL (12.0-16.0) L Hematocrit 26.7 % (37.0-47.0) L Mean Corpuscular Volume 95 FL (80-99) Mean Corpuscular Hemoglobin 30.8 PG (27.0-31.0) Mean Corpuscular Hemoglobin Concent 32.6 G/DL (32.0-36.0) Red Cell Distribution Width 14.9 % (11.6-14.8) H Platelet Count 363 K/UL (150-450) Mean Platelet Volume 5.5 FL (6.5-10.1) L Neutrophils (%) (Auto) 73.1 % (45.0-75.0) Lymphocytes (%) (Auto) 13.7 % (20.0-45.0) L Monocytes (%) (Auto) 7.2 % (1.0-10.0) Eosinophils (%) (Auto) 5.6 % (0.0-3.0) H Basophils (%) (Auto) 0.4 % (0.0-2.0) Arterial Blood pH 7.440 (7.350-7.450) Arterial Blood Partial Pressure CO2 29.4 mmHg (35.0-45.0) L Arterial Blood Partial Pressure O2 87.8 mmHg (75.0-100.0) Arterial Blood HCO3 19.7 mmol/L (22.0-26.0) L Arterial Blood Oxygen Saturation 96.0 % (92.0-98.0) Arterial Blood Base Excess -3.7 Kelvin Test Positive Sodium Level 145 MMOL/L (136-145) Potassium Level 4.0 MMOL/L (3.5-5.1) Chloride Level 116 MMOL/L (98-107) H Carbon Dioxide Level 21 MMOL/L (21-32) Anion Gap 8 mmol/L (5-15) Blood Urea Nitrogen 7 mg/dL (7-18) Creatinine 0.4 MG/DL (0.55-1.30) L Estimat Glomerular Filtration Rate mL/min (>60) Glucose Level 132 MG/DL (74-106) H Calcium Level 7.5 MG/DL (8.5-10.1) L Phosphorus Level 1.6 MG/DL (2.5-4.9) L Magnesium Level 1.9 MG/DL (1.8-2.4) Total Bilirubin 0.3 MG/DL (0.2-1.0) Aspartate Amino Transf (AST/SGOT) 11 U/L (15-37) L Alanine Aminotransferase (ALT/SGPT) 7 U/L (12-78) L Alkaline Phosphatase 65 U/L (46-116) Total Protein 5.2 G/DL (6.4-8.2) L Albumin 1.4 G/DL (3.4-5.0) L Globulin 3.8 g/dL Albumin/Globulin Ratio 0.4 (1.0-2.7) L DWAYNE CHERY May 15, 2017 11:21
--- NOTE | 2017-05-15 12:30 | General Progress Note ---
Assessment/Plan Problem List: (1) Septic shock ICD Codes: A41.9 - Sepsis, unspecified organism; R65.21 - Severe sepsis with septic shock SNOMED: 13850487 (2) Acute respiratory failure with hypoxia and hypercapnia ICD Codes: J96.01 - Acute respiratory failure with hypoxia; J96.02 - Acute respiratory failure with hypercapnia SNOMED: 75044771, 92291790, 424588937 (3) Aspiration pneumonia ICD Codes: J69.0 - Pneumonitis due to inhalation of food and vomit SNOMED: 810619652 Qualifiers: Qualified Codes: J69.0 - Pneumonitis due to inhalation of food and vomit (4) Toxic metabolic encephalopathy ICD Codes: G92 - Toxic encephalopathy SNOMED: 009348200 (5) JUJU (acute kidney injury) ICD Codes: N17.9 - Acute kidney failure, unspecified SNOMED: 31441467 (6) Hyponatremia ICD Codes: E87.1 - Hyponatremia SNOMED: 52362353 (7) Hyperkalemia ICD Codes: E87.5 - Hyperkalemia SNOMED: 39189988 (8) Seizure disorder ICD Codes: G40.909 - Epilepsy, unspecified, not intractable, without status epilepticus SNOMED: 214274132 (9) DVT/PE (10) Dementia ICD Codes: F03.90 - Dementia SNOMED: 31879885 (11) S/P percutaneous endoscopic gastrostomy (PEG) tube placement ICD Codes: Z93.1 - Gastrostomy status SNOMED: 453472697 (12) Hypercalcemia ICD Codes: E83.52 - Hypercalcemia SNOMED: 00352339 Status: stable Assessment/Plan Cont ICU care Pulm consulted Cont on vent and wean as tolerated Daily SBTs Now off pressors ID consulted Cont broad-spectrum abx: vanco, zosyn, flagyl F/u cultures Trend CBC Trend ABG Monitor CXR Renal consulted s/p IVFs Trend CBC Cont tube feeds via PEG Cont home meds including Eliuqis, Depakote Pain control, supportive care, bowel regimen DVT ppx: Eliquis GI ppx: PPI Dispo: pending further stabilization, cont ICU care FULL CODE per discussion w/ daughter At the time of my involvement, the patient's condition was critical with high potential for and/or physiologic deterioration secondary to acute respiratory failure 2/2 aspiration pneumonia, sepsis, acute encephalopathy as delineated in the note above. On the above date of service, I spent a total of 36 minutes in the ICU evaluating, managing, and providing critical care services to this patient, including time spent documenting these activities, counseling patient/family, and coordinating care. Critical care services performed include: Telemetry Review Hemodynamic measurement interpretation Laboratory data review and interpretation Ventilator setting review, management, and adjustment Discussion of care plans with patient, family, and/or surrogate decision makers Discussion of patient's care with primary medical team, surgical team, and/or consulting service Decision to obtain further radiologic evaluation, after consideration of risk/ benefit ratio Decision to perform invasive procedure, after consideration of risk/benefit ratio Review of most recent microbiology results with assessment and modification of antimicrobial coverage Discussion of patient's code status and further advancement towards the ultimate goals of care Plan outlined above discussed with patient/family, 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 D/w pt's daughter regarding plan of care D/w ID re abx Time of note may not reflect time of encounter Subjective Date patient seen: May 15, 2017 Time patient seen: 12:30 ROS Limited/Unobtainable: Yes Allergies: Coded Allergies: NO KNOWN DRUG ALLERGIES (Unverified Allergy, Unknown, 07/29/14) Subjective No acute o/n events Now off pressors SBT attempted this AM but pt failed Pt intubated, sedated Unable to obtain ROS as pt sedated Objective Last 24 Hour Vital Signs Date Time Temp Pulse Resp B/P (MAP) Pulse Ox O2 Delivery O2 Flow Rate FiO2 05/15/17 12:00 98.7 76 23 109/38 100 Mechanical Ventilator 40 05/15/17 12:00 40 05/15/17 11:00 76 25 109/39 98 Mechanical Ventilator 40 05/15/17 10:52 63 28 40 05/15/17 10:00 66 25 110/38 99 Mechanical Ventilator 40 05/15/17 09:30 110/38 05/15/17 09:00 67 27 108/38 99 Mechanical Ventilator 40 05/15/17 08:55 99 05/15/17 08:54 69 26 40 05/15/17 08:00 99.2 66 22 103/41 99 Mechanical Ventilator 40 05/15/17 08:00 69 05/15/17 07:04 70 20 100 Mechanical Ventilator 40 05/15/17 07:00 71 19 127/43 99 Mechanical Ventilator 40 05/15/17 06:53 76 20 99 Mechanical Ventilator 40 05/15/17 06:49 69 22 40 05/15/17 06:00 40 05/15/17 06:00 63 22 120/36 99 Mechanical Ventilator 40 05/15/17 05:23 67 20 40 05/15/17 05:00 62 21 101/79 100 Mechanical Ventilator 40 05/15/17 04:00 57 05/15/17 04:00 40 05/15/17 04:00 99.2 57 18 137/46 100 Mechanical Ventilator 40 05/15/17 03:47 71 19 100 Mechanical Ventilator 05/15/17 03:38 66 22 40 05/15/17 03:38 66 22 99 Mechanical Ventilator 05/15/17 03:00 64 21 124/48 100 Mechanical Ventilator 40 05/15/17 02:00 71 22 131/53 99 Mechanical Ventilator 40 05/15/17 02:00 40 05/15/17 01:20 69 19 40 05/15/17 01:00 70 20 124/50 98 Mechanical Ventilator 40 05/15/17 00:00 98.9 79 24 117/62 97 Mechanical Ventilator 40 05/15/17 00:00 79 05/14/17 23:18 75 19 100 Mechanical Ventilator 05/14/17 23:08 67 23 99 Mechanical Ventilator 05/14/17 23:06 69 23 40 05/14/17 23:00 67 20 114/44 98 Mechanical Ventilator 40 05/14/17 22:00 72 22 120/44 97 Mechanical Ventilator 40 05/14/17 21:26 70 24 40 05/14/17 21:00 73 24 113/39 98 Mechanical Ventilator 40 05/14/17 20:09 71 19 100 Mechanical Ventilator 05/14/17 20:00 40 05/14/17 20:00 99.2 78 24 117/44 97 Mechanical Ventilator 40 05/14/17 20:00 78 05/14/17 19:33 73 24 40 05/14/17 19:32 73 21 98 Mechanical Ventilator 05/14/17 19:00 72 21 105/39 98 Mechanical Ventilator 40 05/14/17 18:00 80 19 109/47 97 Mechanical Ventilator 40 05/14/17 17:20 66 18 40 05/14/17 17:00 71 19 100/42 98 Mechanical Ventilator 40 05/14/17 16:00 40 05/14/17 16:00 70 05/14/17 16:00 99.1 75 21 111/41 98 Mechanical Ventilator 40 05/14/17 15:24 69 18 99 Mechanical Ventilator 05/14/17 15:18 77 24 40 05/14/17 15:18 79 16 100 Mechanical Ventilator 05/14/17 15:00 69 22 112/40 97 Mechanical Ventilator 40 05/14/17 14:00 87 27 118/46 96 Mechanical Ventilator 40 05/14/17 13:00 72 28 111/43 98 Mechanical Ventilator 40 05/14/17 12:42 72 25 40 Intake and Output 05/14/17 05/15/17 19:00 07:00 Intake Total 540 ml 1150.0 ml Output Total 460 ml 465 ml Balance 80 ml 685.0 ml Intake Free Water 150 ml IV Total 460.0 ml Tube Feeding 540 ml 540 ml Output Urine Total 460 ml 465 ml # Bowel Movements 1 4 Laboratory Tests 05/15/17 04:00: White Blood Count 17.1H, Red Blood Count 2.82L, Hemoglobin 8.7L, Hematocrit 26.7L, Mean Corpuscular Volume 95, Mean Corpuscular Hemoglobin 30.8, Mean Corpuscular Hemoglobin Concent 32.6, Red Cell Distribution Width 14.9H, Platelet Count 363, Mean Platelet Volume 5.5L, Neutrophils (%) (Auto) 73.1, Lymphocytes (%) (Auto) 13.7L, Monocytes (%) (Auto) 7.2, Eosinophils (%) (Auto) 5.6H, Basophils (%) (Auto) 0.4, Arterial Blood pH 7.440, Arterial Blood Partial Pressure CO2 29.4L, Arterial Blood Partial Pressure O2 87.8, Arterial Blood HCO3 19.7L, Arterial Blood Oxygen Saturation 96.0, Arterial Blood Base Excess - 3.7, Kelvin Test Positive, Sodium Level 145, Potassium Level 4.0, Chloride Level 116H, Carbon Dioxide Level 21, Anion Gap 8, Blood Urea Nitrogen 7, Creatinine 0.4L, Estimat Glomerular Filtration Rate , Glucose Level 132H, Calcium Level 7.5L, Phosphorus Level 1.6L, Magnesium Level 1.9, Total Bilirubin 0.3, Aspartate Amino Transf (AST/SGOT) 11L, Alanine Aminotransferase (ALT/SGPT) 7L, Alkaline Phosphatase 65, Total Protein 5.2L, Albumin 1.4L, Globulin 3.8, Albumin /Globulin Ratio 0.4L Height (Feet): 5 Height (Inches): 4.00 Weight (Pounds): 152 Objective General: intubated, sedated Head: normocephalic, without obvious abnormality, atraumatic Eyes: conjunctivae/corneas clear. PERRL, EOM's intact Throat: lips, mucosa, and tongue normal. MMM Neck: supple, symmetrical, trachea midline, and no JVD Lungs: +rhonchi Heart: regular rate and rhythm, S1, S2 normal, no murmur, click, rub or gallop Abdomen: soft, non-tender, non-distended, bowel sounds normal; Extremities: extremities normal, atraumatic, no cyanosis, +BLE edema Pulses: 2+ and symmetric Skin: skin color, texture, turgor normal; no rashes or lesions Neurologic: grossly normal, no focal deficits Prachi Mejia M.D. May 15, 2017 12:30
[2017-05-15] MEDS ORDERED: Sodium Phosphate 30 MM in NS 275 ML IV ONE (12:45)
[2017-05-15] MEDS ORDERED: Albuterol/Ipratropium 3ml neb HHN PRN (12:45)
--- NOTE | 2017-05-15 12:51 | Diagnostic Imaging Report ---
Indication: Dyspnea Comparison: 05/14/1979 A single view chest radiograph was obtained. Findings: Interstitial edema and some alveolar airspace disease demonstrated. Suspected right pleural effusion. Heart size is stable. Tubes and lines are stable. IMPRESSION: No change from the prior day
[2017-05-15] MEDS: Phospha 250 Neutral tab NG SCH ×2 (13:21→18:38)
--- NOTE | 2017-05-15 13:26 | Nephrology Progress Note ---
Assessment/Plan Problem List: (1) Acute respiratory failure with hypoxia and hypercapnia (2) Septic shock (3) Renal insufficiency (4) Hypercalcemia Assessment acute renal failure resolving ? CKD underlying Acute respiratory failure septic shock sever Hypercalcemia, corrected for low Albumin HypoAlbuminemia Anemia Dementia Plan Plan: Weaning monitor serum Ca 2D echo- Left ventricular ejection fraction estimated to be 65-70%. increase feeding Phos K and Mag supplement as needed hemodynamic support Aredia given 05/10 monitor renal parameters serum cortisol level 12 avoid nephrotoxics per orders Subjective ROS Limited/Unobtainable: Yes Objective Objective Last 24 Hour Vital Signs Date Time Temp Pulse Resp B/P (MAP) Pulse Ox O2 Delivery O2 Flow Rate FiO2 05/15/17 12:49 78 28 40 05/15/17 12:00 98.7 76 23 109/38 100 Mechanical Ventilator 40 05/15/17 12:00 76 05/15/17 12:00 40 05/15/17 11:00 76 25 109/39 98 Mechanical Ventilator 40 05/15/17 10:52 63 28 40 05/15/17 10:00 66 25 110/38 99 Mechanical Ventilator 40 05/15/17 09:30 110/38 05/15/17 09:00 67 27 108/38 99 Mechanical Ventilator 40 05/15/17 08:55 99 05/15/17 08:54 69 26 40 05/15/17 08:00 99.2 66 22 103/41 99 Mechanical Ventilator 40 05/15/17 08:00 69 05/15/17 07:04 70 20 100 Mechanical Ventilator 40 05/15/17 07:00 71 19 127/43 99 Mechanical Ventilator 40 05/15/17 06:53 76 20 99 Mechanical Ventilator 40 05/15/17 06:49 69 22 40 05/15/17 06:00 40 05/15/17 06:00 63 22 120/36 99 Mechanical Ventilator 40 05/15/17 05:23 67 20 40 05/15/17 05:00 62 21 101/79 100 Mechanical Ventilator 40 05/15/17 04:00 57 05/15/17 04:00 40 05/15/17 04:00 99.2 57 18 137/46 100 Mechanical Ventilator 40 05/15/17 03:47 71 19 100 Mechanical Ventilator 05/15/17 03:38 66 22 40 05/15/17 03:38 66 22 99 Mechanical Ventilator 05/15/17 03:00 64 21 124/48 100 Mechanical Ventilator 40 05/15/17 02:00 71 22 131/53 99 Mechanical Ventilator 40 05/15/17 02:00 40 05/15/17 01:20 69 19 40 05/15/17 01:00 70 20 124/50 98 Mechanical Ventilator 40 05/15/17 00:00 98.9 79 24 117/62 97 Mechanical Ventilator 40 05/15/17 00:00 79 05/14/17 23:18 75 19 100 Mechanical Ventilator 05/14/17 23:08 67 23 99 Mechanical Ventilator 05/14/17 23:06 69 23 40 05/14/17 23:00 67 20 114/44 98 Mechanical Ventilator 40 05/14/17 22:00 72 22 120/44 97 Mechanical Ventilator 40 05/14/17 21:26 70 24 40 05/14/17 21:00 73 24 113/39 98 Mechanical Ventilator 40 05/14/17 20:09 71 19 100 Mechanical Ventilator 05/14/17 20:00 40 05/14/17 20:00 99.2 78 24 117/44 97 Mechanical Ventilator 40 05/14/17 20:00 78 05/14/17 19:33 73 24 40 05/14/17 19:32 73 21 98 Mechanical Ventilator 05/14/17 19:00 72 21 105/39 98 Mechanical Ventilator 40 05/14/17 18:00 80 19 109/47 97 Mechanical Ventilator 40 05/14/17 17:20 66 18 40 05/14/17 17:00 71 19 100/42 98 Mechanical Ventilator 40 05/14/17 16:00 40 05/14/17 16:00 70 05/14/17 16:00 99.1 75 21 111/41 98 Mechanical Ventilator 40 05/14/17 15:24 69 18 99 Mechanical Ventilator 05/14/17 15:18 77 24 40 05/14/17 15:18 79 16 100 Mechanical Ventilator 05/14/17 15:00 69 22 112/40 97 Mechanical Ventilator 40 05/14/17 14:00 87 27 118/46 96 Mechanical Ventilator 40 Intake and Output 05/14/17 05/15/17 19:00 07:00 Intake Total 540 ml 1150.0 ml Output Total 460 ml 465 ml Balance 80 ml 685.0 ml Intake Free Water 150 ml IV Total 460.0 ml Tube Feeding 540 ml 540 ml Output Urine Total 460 ml 465 ml # Bowel Movements 1 4 Laboratory Tests 05/15/17 04:00: White Blood Count 17.1H, Red Blood Count 2.82L, Hemoglobin 8.7L, Hematocrit 26.7L, Mean Corpuscular Volume 95, Mean Corpuscular Hemoglobin 30.8, Mean Corpuscular Hemoglobin Concent 32.6, Red Cell Distribution Width 14.9H, Platelet Count 363, Mean Platelet Volume 5.5L, Neutrophils (%) (Auto) 73.1, Lymphocytes (%) (Auto) 13.7L, Monocytes (%) (Auto) 7.2, Eosinophils (%) (Auto) 5.6H, Basophils (%) (Auto) 0.4, Arterial Blood pH 7.440, Arterial Blood Partial Pressure CO2 29.4L, Arterial Blood Partial Pressure O2 87.8, Arterial Blood HCO3 19.7L, Arterial Blood Oxygen Saturation 96.0, Arterial Blood Base Excess - 3.7, Kelvin Test Positive, Sodium Level 145, Potassium Level 4.0, Chloride Level 116H, Carbon Dioxide Level 21, Anion Gap 8, Blood Urea Nitrogen 7, Creatinine 0.4L, Estimat Glomerular Filtration Rate , Glucose Level 132H, Calcium Level 7.5L, Phosphorus Level 1.6L, Magnesium Level 1.9, Total Bilirubin 0.3, Aspartate Amino Transf (AST/SGOT) 11L, Alanine Aminotransferase (ALT/SGPT) 7L, Alkaline Phosphatase 65, Total Protein 5.2L, Albumin 1.4L, Globulin 3.8, Albumin /Globulin Ratio 0.4L Height (Feet): 5 Height (Inches): 4.00 Weight (Pounds): 152 EENT: other - remains intubated Cardiovascular: normal rate Respiratory/Chest: decreased breath sounds, other - on weaning protocol Abdomen: soft Objective no other changes ALYSON FLANAGAN May 15, 2017 13:26
[2017-05-15] MEDS: Dyna-Hex 2% Top Sol 2oz TOPIC SCH (19:36)
[2017-05-16] VITALS (22 sets, daily range): BP systolic 111–138; BP diastolic 39–61
[2017-05-16] MEDS: Zosyn 3.375gm q8h **Extended infusion IVPB SCH ×6 (05:34→22:48)
[2017-05-16 07:16] LABS: BASOPHILS % (AUTO) 0.4 % (0.0-2.0); EOSINOPHILS % (AUTO) 2.6 % (0.0-3.0); HEMATOCRIT 26.6 % (37.0-47.0); HEMOGLOBIN 8.6 G/DL (12.0-16.0); LYMPHOCYTES % (AUTO) 17.7 % (20.0-45.0); MEAN CORPUSCULAR VOLUME 95 FL (80-99); NEUTROPHILS % (AUTO) 72.3 % (45.0-75.0); PLATELET COUNT 442 K/UL (150-450); RED BLOOD COUNT 2.81 M/UL (4.20-5.40); RED CELL DISTRIBUTION WIDTH 15.3 % (11.6-14.8); WHITE BLOOD COUNT 14.4 K/UL (4.8-10.8)
[2017-05-16 07:18] LABS: ALANINE AMINOTRANSFERASE 8 U/L (12-78); ALBUMIN 1.5 G/DL (3.4-5.0); ALBUMIN/GLOBULIN RATIO 0.4 (1.0-2.7); ALKALINE PHOSPHATASE 58 U/L (46-116); ANION GAP 8 mmol/L (5-15); ASPARTATE AMINO TRANSFERASE 13 U/L (15-37); BILIRUBIN,TOTAL 0.2 MG/DL (0.2-1.0); BLOOD UREA NITROGEN 7 mg/dL (7-18); CALCIUM 7.3 MG/DL (8.5-10.1); CARBON DIOXIDE 20 MMOL/L (21-32); CHLORIDE 118 MMOL/L (98-107); CREATININE 0.4 MG/DL (0.55-1.30); PHOSPHORUS 1.4 MG/DL (2.5-4.9); POTASSIUM 3.8 MMOL/L (3.5-5.1); SODIUM 146 MMOL/L (136-145)
[2017-05-16] MEDS: Docusate 100mg/10ml Liq ORAL SCH ×2 (08:34→21:00)
[2017-05-16] MEDS: Phospha 250 Neutral tab NG SCH ×3 (08:53→17:58)
[2017-05-16] MEDS: Pantoprazole Inj IV SCH ×2 (08:53→21:05)
[2017-05-16] MEDS: Vancomycin 750mg/NS 250ml IVPB SCH (08:53)
[2017-05-16] MEDS: Heparin 5000 units/ml inj SUBQ SCH ×2 (09:00→21:10)
[2017-05-16] MEDS ORDERED: Potassium Phosphate 30 MM in NS 275 ML IV ONE (10:00)
--- NOTE | 2017-05-16 11:29 | Diagnostic Imaging Report ---
Indication: Dyspnea Comparison: 05/15/2017 A single view chest radiograph was obtained. Findings: Vascular prominence and interstitial edema demonstrated. Heart is relatively normal in size. Tubes and lines are stable. IMPRESSION: No significant interval change. Interstitial edema noted
--- NOTE | 2017-05-16 11:51 | Pulmonolgy Critical Care Note ---
Critical Care - Asmt/Plan Problems: (1) Acute respiratory failure with hypoxia and hypercapnia (2) Acute encephalopathy (3) Sepsis (4) Aspiration pneumonia Respiratory: monitor respiratory rate, adjust FIO2 Cardiac: continue to monitor HR/BP Renal: F/U I&O, keep IV fluid Infectious Disease: check cultures Gastrointestinal: continue feedings/current rate Endocrine: monitor blood sugar, check TSH, continue sliding scale insulin Hematologic: transfuse if hgb<8.5 Neurologic: PRN Ativan, PRN Morphine, keep patient comfortable Prophylaxis: Protonix Time Spent (Minutes): 40 Notes Reviewed: park guard, cardio, renal Critical Care - Objective Last 24 Hour Vital Signs Date Time Temp Pulse Resp B/P (MAP) Pulse Ox O2 Delivery O2 Flow Rate FiO2 05/16/17 11:44 74 28 40 05/16/17 10:50 76 28 40 05/16/17 10:19 100 05/16/17 10:19 86 29 40 05/16/17 09:30 121/55 05/16/17 08:00 40 05/16/17 08:00 98.8 66 26 118/43 100 Mechanical Ventilator 40 05/16/17 06:59 86 24 40 05/16/17 06:00 59 21 132/46 100 Mechanical Ventilator 40 05/16/17 05:22 61 25 40 05/16/17 05:00 67 21 138/57 100 Mechanical Ventilator 40 05/16/17 04:18 67 26 40 05/16/17 04:00 98.8 59 20 121/43 100 Mechanical Ventilator 40 05/16/17 04:00 40 05/16/17 04:00 59 05/16/17 03:00 64 23 131/47 99 Mechanical Ventilator 40 05/16/17 02:00 57 22 128/42 99 Mechanical Ventilator 40 05/16/17 01:37 60 20 40 05/16/17 01:00 60 23 123/48 99 Mechanical Ventilator 40 05/16/17 00:00 60 05/16/17 00:00 99.0 60 22 122/42 99 Mechanical Ventilator 40 05/16/17 00:00 40 05/15/17 23:00 69 26 119/44 99 Mechanical Ventilator 40 05/15/17 22:47 61 26 40 05/15/17 22:00 63 29 122/40 100 Mechanical Ventilator 40 05/15/17 21:20 82 25 40 05/15/17 21:00 64 28 126/48 100 Mechanical Ventilator 40 05/15/17 20:10 67 23 40 05/15/17 20:00 40 05/15/17 20:00 63 05/15/17 20:00 98.7 63 20 117/39 97 Mechanical Ventilator 40 05/15/17 19:00 80 25 132/47 96 Mechanical Ventilator 40 05/15/17 18:00 87 28 131/69 96 Mechanical Ventilator 40 05/15/17 17:41 88 32 40 05/15/17 17:00 68 30 128/46 98 Mechanical Ventilator 40 05/15/17 16:42 66 29 40 05/15/17 16:00 40 05/15/17 16:00 82 05/15/17 16:00 98.4 70 33 128/46 98 Mechanical Ventilator 40 05/15/17 15:00 70 19 107/50 97 Mechanical Ventilator 40 05/15/17 14:36 64 26 40 05/15/17 14:00 64 19 118/40 98 Mechanical Ventilator 40 05/15/17 13:00 75 25 114/42 99 Mechanical Ventilator 40 05/15/17 12:49 78 28 40 05/15/17 12:00 98.7 76 23 109/38 100 Mechanical Ventilator 40 05/15/17 12:00 76 05/15/17 12:00 40 Status: awake, sedated Condition: grave HEENT: atraumatic Neck: full ROM Lungs: chest wall tender Heart: HR/BP stable, HR/BP unstable Abdomen: soft, non-tender, active bowel sounds, feeding tube Micro: Microbiology Date/Time Source Procedure Growth Status 05/15/17 18:00 Stool Clostridium difficile Toxin Assay - Final Complete Critical Care - Subjective ROS Limited/Unobtainable: No Condition: critical EKG Rhythm: Sinus Rhythm FI02: 40 Vent Support Breath Rate: 6 Vent Support Mode: IMV/SIMV Vent Tidal Volume: 500 Sputum Amount: Small PEEP: 0.0 PIP: 25 Tube Feeding Amount: 45 I&O: Intake and Output 05/15/17 05/16/17 19:00 07:00 Intake Total 983.334 ml 1327.5 ml Output Total 435 ml 420 ml Balance 548.334 ml 907.5 ml Intake Free Water 200 ml IV Total 443.334 ml 587.5 ml Tube Feeding 540 ml 540 ml Output Urine Total 435 ml 420 ml # Bowel Movements 3 5 CXR: slightly improving ET-Tube: 7.5 ET Position: 23 DWAYNE CHERY May 16, 2017 11:51
--- NOTE | 2017-05-16 12:09 | Nephrology Progress Note ---
Assessment/Plan Problem List: (1) Acute respiratory failure with hypoxia and hypercapnia (2) Septic shock (3) Renal insufficiency (4) Hypercalcemia Assessment acute renal failure resolving ? CKD underlying Acute respiratory failure septic shock sever Hypercalcemia, corrected for low Albumin HypoAlbuminemia Anemia Dementia Plan Plan: Weaning in process mag and phos supplement as needed monitor serum Ca 2D echo- Left ventricular ejection fraction estimated to be 65-70%. increase feeding Phos K and Mag supplement as needed hemodynamic support Aredia given 05/10 monitor renal parameters serum cortisol level 12 avoid nephrotoxics per orders Subjective ROS Limited/Unobtainable: Yes Objective Objective Last 24 Hour Vital Signs Date Time Temp Pulse Resp B/P (MAP) Pulse Ox O2 Delivery O2 Flow Rate FiO2 05/16/17 11:44 74 28 40 05/16/17 10:50 76 28 40 05/16/17 10:19 100 05/16/17 10:19 86 29 40 05/16/17 09:30 121/55 05/16/17 08:00 40 05/16/17 08:00 98.8 66 26 118/43 100 Mechanical Ventilator 40 05/16/17 06:59 86 24 40 05/16/17 06:00 59 21 132/46 100 Mechanical Ventilator 40 05/16/17 05:22 61 25 40 05/16/17 05:00 67 21 138/57 100 Mechanical Ventilator 40 05/16/17 04:18 67 26 40 05/16/17 04:00 98.8 59 20 121/43 100 Mechanical Ventilator 40 05/16/17 04:00 40 05/16/17 04:00 59 05/16/17 03:00 64 23 131/47 99 Mechanical Ventilator 40 05/16/17 02:00 57 22 128/42 99 Mechanical Ventilator 40 05/16/17 01:37 60 20 40 05/16/17 01:00 60 23 123/48 99 Mechanical Ventilator 40 05/16/17 00:00 60 05/16/17 00:00 99.0 60 22 122/42 99 Mechanical Ventilator 40 05/16/17 00:00 40 05/15/17 23:00 69 26 119/44 99 Mechanical Ventilator 40 05/15/17 22:47 61 26 40 05/15/17 22:00 63 29 122/40 100 Mechanical Ventilator 40 05/15/17 21:20 82 25 40 05/15/17 21:00 64 28 126/48 100 Mechanical Ventilator 40 05/15/17 20:10 67 23 40 05/15/17 20:00 40 05/15/17 20:00 63 05/15/17 20:00 98.7 63 20 117/39 97 Mechanical Ventilator 40 05/15/17 19:00 80 25 132/47 96 Mechanical Ventilator 40 05/15/17 18:00 87 28 131/69 96 Mechanical Ventilator 40 05/15/17 17:41 88 32 40 05/15/17 17:00 68 30 128/46 98 Mechanical Ventilator 40 05/15/17 16:42 66 29 40 05/15/17 16:00 40 05/15/17 16:00 82 05/15/17 16:00 98.4 70 33 128/46 98 Mechanical Ventilator 40 05/15/17 15:00 70 19 107/50 97 Mechanical Ventilator 40 05/15/17 14:36 64 26 40 05/15/17 14:00 64 19 118/40 98 Mechanical Ventilator 40 05/15/17 13:00 75 25 114/42 99 Mechanical Ventilator 40 05/15/17 12:49 78 28 40 Intake and Output 05/15/17 05/16/17 19:00 07:00 Intake Total 983.334 ml 1327.5 ml Output Total 435 ml 420 ml Balance 548.334 ml 907.5 ml Intake Free Water 200 ml IV Total 443.334 ml 587.5 ml Tube Feeding 540 ml 540 ml Output Urine Total 435 ml 420 ml # Bowel Movements 3 5 Laboratory Tests 05/16/17 05:00: White Blood Count 14.4H, Red Blood Count 2.81L, Hemoglobin 8.6L, Hematocrit 26.6L, Mean Corpuscular Volume 95, Mean Corpuscular Hemoglobin 30.5, Mean Corpuscular Hemoglobin Concent 32.1, Red Cell Distribution Width 15.3H, Platelet Count 442, Mean Platelet Volume 5.3L, Neutrophils (%) (Auto) 72.3, Lymphocytes (%) (Auto) 17.7L, Monocytes (%) (Auto) 7.0, Eosinophils (%) (Auto) 2.6, Basophils (%) (Auto) 0.4, Sodium Level 146H, Potassium Level 3.8, Chloride Level 118H, Carbon Dioxide Level 20L, Anion Gap 8, Blood Urea Nitrogen 7, Creatinine 0.4L, Estimat Glomerular Filtration Rate , Glucose Level 118H, Calcium Level 7.3L, Phosphorus Level 1.4L, Magnesium Level 1.5L, Total Bilirubin 0.2, Aspartate Amino Transf (AST/SGOT) 13L, Alanine Aminotransferase ( ALT/SGPT) 8L, Alkaline Phosphatase 58, C-Reactive Protein, Quantitative 4.3H, Pro-B-Type Natriuretic Peptide 3198H, Total Protein 5.3L, Albumin 1.5L, Globulin 3.8, Albumin/Globulin Ratio 0.4L 05/16/17 09:55: Arterial Blood pH 7.389, Arterial Blood Partial Pressure CO2 32.0L, Arterial Blood Partial Pressure O2 107.3H, Arterial Blood HCO3 18.9L, Arterial Blood Oxygen Saturation 97.4, Arterial Blood Base Excess -5.3, Kelvin Test Positive Height (Feet): 5 Height (Inches): 4.00 Weight (Pounds): 152 General Appearance: no apparent distress Cardiovascular: normal rate Respiratory/Chest: decreased breath sounds Abdomen: distended Objective no other changes ALYSON FLANAGAN May 16, 2017 12:09
--- NOTE | 2017-05-16 12:50 | General Progress Note ---
Assessment/Plan Problem List: (1) Septic shock ICD Codes: A41.9 - Sepsis, unspecified organism; R65.21 - Severe sepsis with septic shock SNOMED: 43088582 (2) Acute respiratory failure with hypoxia and hypercapnia ICD Codes: J96.01 - Acute respiratory failure with hypoxia; J96.02 - Acute respiratory failure with hypercapnia SNOMED: 73045902, 75624089, 373990768 (3) Aspiration pneumonia ICD Codes: J69.0 - Pneumonitis due to inhalation of food and vomit SNOMED: 809148123 Qualifiers: Qualified Codes: J69.0 - Pneumonitis due to inhalation of food and vomit (4) Toxic metabolic encephalopathy ICD Codes: G92 - Toxic encephalopathy SNOMED: 821407726 (5) JUJU (acute kidney injury) ICD Codes: N17.9 - Acute kidney failure, unspecified SNOMED: 98437872 (6) Hyponatremia ICD Codes: E87.1 - Hyponatremia SNOMED: 49423421 (7) Hyperkalemia ICD Codes: E87.5 - Hyperkalemia SNOMED: 68234466 (8) Seizure disorder ICD Codes: G40.909 - Epilepsy, unspecified, not intractable, without status epilepticus SNOMED: 435472946 (9) DVT/PE (10) Dementia ICD Codes: F03.90 - Dementia SNOMED: 28113735 (11) S/P percutaneous endoscopic gastrostomy (PEG) tube placement ICD Codes: Z93.1 - Gastrostomy status SNOMED: 411610236 (12) Hypercalcemia ICD Codes: E83.52 - Hypercalcemia SNOMED: 96435792 Status: stable Assessment/Plan Cont ICU care Pulm consulted Cont on vent and wean as tolerated Daily SBTs Now off pressors ID consulted Cont broad-spectrum abx: vanco, zosyn; add cipro for double pseudomonas coverage ; d/c flagyl (C. diff neg) F/u cultures Trend CBC Trend ABG Monitor CXR Renal consulted s/p IVFs Trend CBC Cont tube feeds via PEG Cont home meds including Eliuqis, Depakote Pain control, supportive care, bowel regimen DVT ppx: Eliquis GI ppx: PPI Dispo: pending further stabilization, cont ICU care FULL CODE per discussion w/ daughter At the time of my involvement, the patient's condition was critical with high potential for and/or physiologic deterioration secondary to acute respiratory failure 2/2 aspiration pneumonia, sepsis, acute encephalopathy as delineated in the note above. On the above date of service, I spent a total of 36 minutes in the ICU evaluating, managing, and providing critical care services to this patient, including time spent documenting these activities, counseling patient/family, and coordinating care. Critical care services performed include: Telemetry Review Hemodynamic measurement interpretation Laboratory data review and interpretation Ventilator setting review, management, and adjustment Discussion of care plans with patient, family, and/or surrogate decision makers Discussion of patient's care with primary medical team, surgical team, and/or consulting service Decision to obtain further radiologic evaluation, after consideration of risk/ benefit ratio Decision to perform invasive procedure, after consideration of risk/benefit ratio Review of most recent microbiology results with assessment and modification of antimicrobial coverage Discussion of patient's code status and further advancement towards the ultimate goals of care Plan outlined above discussed with patient/family, LGSW, 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 D/w pt's daughter regarding plan of care D/w ID re abx Time of note may not reflect time of encounter Subjective Date patient seen: May 16, 2017 Time patient seen: 12:50 ROS Limited/Unobtainable: Yes Allergies: Coded Allergies: NO KNOWN DRUG ALLERGIES (Unverified Allergy, Unknown, 07/29/14) Subjective No acute o/n events Now off pressors SBT attempted this AM but pt failed Pt intubated, sedated Unable to obtain ROS as pt sedated Objective Last 24 Hour Vital Signs Date Time Temp Pulse Resp B/P (MAP) Pulse Ox O2 Delivery O2 Flow Rate FiO2 05/16/17 12:39 71 29 40 05/16/17 11:44 74 28 40 05/16/17 10:50 76 28 40 05/16/17 10:19 100 05/16/17 10:19 86 29 40 05/16/17 09:30 121/55 05/16/17 08:00 40 05/16/17 08:00 98.8 66 26 118/43 100 Mechanical Ventilator 40 05/16/17 06:59 86 24 40 05/16/17 06:00 59 21 132/46 100 Mechanical Ventilator 40 05/16/17 05:22 61 25 40 05/16/17 05:00 67 21 138/57 100 Mechanical Ventilator 40 05/16/17 04:18 67 26 40 05/16/17 04:00 98.8 59 20 121/43 100 Mechanical Ventilator 40 05/16/17 04:00 40 05/16/17 04:00 59 05/16/17 03:00 64 23 131/47 99 Mechanical Ventilator 40 05/16/17 02:00 57 22 128/42 99 Mechanical Ventilator 40 05/16/17 01:37 60 20 40 05/16/17 01:00 60 23 123/48 99 Mechanical Ventilator 40 05/16/17 00:00 60 05/16/17 00:00 99.0 60 22 122/42 99 Mechanical Ventilator 40 05/16/17 00:00 40 05/15/17 23:00 69 26 119/44 99 Mechanical Ventilator 40 05/15/17 22:47 61 26 40 05/15/17 22:00 63 29 122/40 100 Mechanical Ventilator 40 05/15/17 21:20 82 25 40 05/15/17 21:00 64 28 126/48 100 Mechanical Ventilator 40 05/15/17 20:10 67 23 40 05/15/17 20:00 40 05/15/17 20:00 63 05/15/17 20:00 98.7 63 20 117/39 97 Mechanical Ventilator 40 05/15/17 19:00 80 25 132/47 96 Mechanical Ventilator 40 05/15/17 18:00 87 28 131/69 96 Mechanical Ventilator 40 05/15/17 17:41 88 32 40 05/15/17 17:00 68 30 128/46 98 Mechanical Ventilator 40 05/15/17 16:42 66 29 40 05/15/17 16:00 40 05/15/17 16:00 82 05/15/17 16:00 98.4 70 33 128/46 98 Mechanical Ventilator 40 05/15/17 15:00 70 19 107/50 97 Mechanical Ventilator 40 05/15/17 14:36 64 26 40 05/15/17 14:00 64 19 118/40 98 Mechanical Ventilator 40 05/15/17 13:00 75 25 114/42 99 Mechanical Ventilator 40 Intake and Output 05/15/17 05/16/17 19:00 07:00 Intake Total 983.334 ml 1327.5 ml Output Total 435 ml 420 ml Balance 548.334 ml 907.5 ml Intake Free Water 200 ml IV Total 443.334 ml 587.5 ml Tube Feeding 540 ml 540 ml Output Urine Total 435 ml 420 ml # Bowel Movements 3 5 Laboratory Tests 05/16/17 05:00: White Blood Count 14.4H, Red Blood Count 2.81L, Hemoglobin 8.6L, Hematocrit 26.6L, Mean Corpuscular Volume 95, Mean Corpuscular Hemoglobin 30.5, Mean Corpuscular Hemoglobin Concent 32.1, Red Cell Distribution Width 15.3H, Platelet Count 442, Mean Platelet Volume 5.3L, Neutrophils (%) (Auto) 72.3, Lymphocytes (%) (Auto) 17.7L, Monocytes (%) (Auto) 7.0, Eosinophils (%) (Auto) 2.6, Basophils (%) (Auto) 0.4, Sodium Level 146H, Potassium Level 3.8, Chloride Level 118H, Carbon Dioxide Level 20L, Anion Gap 8, Blood Urea Nitrogen 7, Creatinine 0.4L, Estimat Glomerular Filtration Rate , Glucose Level 118H, Calcium Level 7.3L, Phosphorus Level 1.4L, Magnesium Level 1.5L, Total Bilirubin 0.2, Aspartate Amino Transf (AST/SGOT) 13L, Alanine Aminotransferase ( ALT/SGPT) 8L, Alkaline Phosphatase 58, C-Reactive Protein, Quantitative 4.3H, Pro-B-Type Natriuretic Peptide 3198H, Total Protein 5.3L, Albumin 1.5L, Globulin 3.8, Albumin/Globulin Ratio 0.4L 05/16/17 09:55: Arterial Blood pH 7.389, Arterial Blood Partial Pressure CO2 32.0L, Arterial Blood Partial Pressure O2 107.3H, Arterial Blood HCO3 18.9L, Arterial Blood Oxygen Saturation 97.4, Arterial Blood Base Excess -5.3, Kelvin Test Positive Height (Feet): 5 Height (Inches): 4.00 Weight (Pounds): 152 Objective General: intubated, sedated Head: normocephalic, without obvious abnormality, atraumatic Eyes: conjunctivae/corneas clear. PERRL, EOM's intact Throat: lips, mucosa, and tongue normal. MMM Neck: supple, symmetrical, trachea midline, and no JVD Lungs: +rhonchi Heart: regular rate and rhythm, S1, S2 normal, no murmur, click, rub or gallop Abdomen: soft, non-tender, non-distended, bowel sounds normal; Extremities: extremities normal, atraumatic, no cyanosis, +BLE edema Pulses: 2+ and symmetric Skin: skin color, texture, turgor normal; no rashes or lesions Neurologic: grossly normal, no focal deficits Prachi Mejia M.D. May 16, 2017 12:50
--- NOTE | 2017-05-16 18:45 | Infectious Diseases Prog Note ---
Assessment/Plan Assessment/Plan ASSESSMENT AND PLAN: 1. sepsis, shock, pseudomonas pna, ? pseudomonas sacral wound infection, vent, ? c.diff., leukocytosis, fevers, sirs, bc/uc/influenza negative, vent - zosyn, vancomycin, add cipro for double pseudomonas coverage in septic patient, discontinue flagyl with c.diff. being negative - lotrimin for possible fungal rash - check sc, labs, chest x-ray and c.diff - no pressors - skin care per protocol - weaning - icu and vent care 2. respiratory failure, on vent, icu care 3. Acute kidney injury, elevated creatinine. 4. Hypertension. 5. Diabetes. 6. Asthma. 7. Alzheimer's with some dementia. 8. Cerebrovascular accident. 9. Aspiration risk. 10. Anemia. 11. Seizures. 12. Memory loss. 13. Past medical history as noted. 14. No allergy. 15. Social history is negative. 16. Family history noncontributory. 17. Case discussed with RN. 18. MAR was noted. 19. Continue treatment per primary consultants. 20. Skin care protocol. 21. Possible fungal rash. Continue cream. 22. Questionable drug rash. 23. Continue supportive care. 24. Critical condition. 25. Notes were reviewed. Subjective Constitutional: Reports: fatigue, other - on vent, fio2 - 40%, Denies: fever HEENT: Reports: congestion Respiratory: Reports: shortness of breath Cardiovascular: Denies: chest pain Gastrointestinal/Abdominal: Denies: nausea, vomiting, diarrhea Genitourinary: Reports: other - + cota Neurologic: Denies: headache Psychiatric: Denies: depression Skin: Denies: rash Hematologic: Denies: bleeding Musculoskeletal: Denies: pain Allergies: Coded Allergies: NO KNOWN DRUG ALLERGIES (Unverified Allergy, Unknown, 07/29/14) Objective Vital Signs Last 24 Hour Vital Signs Date Time Temp Pulse Resp B/P (MAP) Pulse Ox O2 Delivery O2 Flow Rate FiO2 05/16/17 18:00 74 19 113/39 100 Mechanical Ventilator 40 05/16/17 17:00 94 18 111/42 100 Mechanical Ventilator 40 05/16/17 16:39 93 30 40 05/16/17 16:00 98.7 77 25 118/45 100 Mechanical Ventilator 40 05/16/17 16:00 79 05/16/17 15:27 85 26 40 05/16/17 15:00 72 26 120/48 100 Mechanical Ventilator 40 05/16/17 14:00 74 26 124/44 100 Mechanical Ventilator 40 05/16/17 14:00 40 05/16/17 13:00 76 27 125/42 100 Mechanical Ventilator 40 05/16/17 13:00 40 05/16/17 12:39 71 29 40 05/16/17 12:00 84 05/16/17 12:00 98.2 79 29 124/46 100 Mechanical Ventilator 40 05/16/17 12:00 40 05/16/17 11:44 74 28 40 05/16/17 11:00 40 05/16/17 10:50 76 28 40 05/16/17 10:19 100 05/16/17 10:19 86 29 40 05/16/17 10:00 79 28 125/61 100 Mechanical Ventilator 40 05/16/17 10:00 40 05/16/17 09:30 121/55 05/16/17 09:00 40 05/16/17 09:00 70 25 121/55 100 Mechanical Ventilator 40 05/16/17 08:00 40 05/16/17 08:00 98.8 66 26 118/43 100 Mechanical Ventilator 40 05/16/17 08:00 64 05/16/17 06:59 86 24 40 05/16/17 06:00 59 21 132/46 100 Mechanical Ventilator 40 05/16/17 05:22 61 25 40 05/16/17 05:00 67 21 138/57 100 Mechanical Ventilator 40 05/16/17 04:18 67 26 40 05/16/17 04:00 98.8 59 20 121/43 100 Mechanical Ventilator 40 05/16/17 04:00 40 05/16/17 04:00 59 05/16/17 03:00 64 23 131/47 99 Mechanical Ventilator 40 05/16/17 02:00 57 22 128/42 99 Mechanical Ventilator 40 05/16/17 01:37 60 20 40 05/16/17 01:00 60 23 123/48 99 Mechanical Ventilator 40 05/16/17 00:00 60 05/16/17 00:00 99.0 60 22 122/42 99 Mechanical Ventilator 40 05/16/17 00:00 40 05/15/17 23:00 69 26 119/44 99 Mechanical Ventilator 40 05/15/17 22:47 61 26 40 05/15/17 22:00 63 29 122/40 100 Mechanical Ventilator 40 05/15/17 21:20 82 25 40 05/15/17 21:00 64 28 126/48 100 Mechanical Ventilator 40 05/15/17 20:10 67 23 40 05/15/17 20:00 40 05/15/17 20:00 63 05/15/17 20:00 98.7 63 20 117/39 97 Mechanical Ventilator 40 05/15/17 19:00 80 25 132/47 96 Mechanical Ventilator 40 Height (Feet): 5 Height (Inches): 4.00 Weight (Pounds): 152 General Appearance: other - on vent, no pressors HEENT: normocephalic, atraumatic, anicteric, no JVD, other - oral - intubated Respiratory/Chest: crackles/rales, rhonchi - bilaterally Cardiovascular: normal rate, regular rhythm, no gallop/murmur, no JVD Abdomen: normal bowel sounds, soft, non tender, no organomegaly, non distended Genitourinary: other - + cota - clear Extremities: no cyanosis Skin: no rash Neurologic/Psychiatric: team psychologist II-XII grossly normal, alert, responsive Lymphatic: no neck adenopathy Musculoskeletal: no effusion Objective 05/12 - chest x-ray - Findings: ET tube and left subclavian central line unchanged in position. Heart size and mediastinal contours are stable. Persistent interstitial opacification/ edema and patchy bilateral airspace opacities with small right pleural effusion. Interval development of a small left lateral pleural effusion and increased left base/retrocardiac opacities. No pneumothorax.. Gastrostomy tube partially visualized. Impression: Slight interval worsening of aeration with development of small left pleural effusion and increasing left basilar atelectasis/consolidation. Support lines and tubes unchanged 05/14 - chest x-ray: Impression: Interstitial and patchy bilateral airspace opacities with continued improved aeration of the right base compared to the prior exam. Support lines/tubes unchanged in position. 05/16 - chest x-ray - no change (report noted) Microbiology Date/Time Source Procedure Growth Status 05/09/17 20:10 Blood Blood Culture - Final NO GROWTH AFTER 5 DAYS Complete 05/12/17 14:12 Sputum Gram Stain - Final Resulted 05/12/17 14:12 Sputum Culture - Preliminary Gram Negative Bacillus 1 Pseudomonas Aeruginosa Resulted 05/15/17 18:00 Stool Clostridium difficile Toxin Assay - Final Complete 05/10/17 14:35 Urine,Clean Catch Urine Culture - Final NO GROWTH AFTER 48 HOURS Complete 05/10/17 10:00 Sacral Wound Gram Stain - Final Complete 05/10/17 10:00 Wound Culture - Final Pseudomonas Aeruginosa Zaria Albicans Usual Skin Beckie Complete Microbiology Date/Time Source Procedure Growth Status 05/15/17 18:00 Stool Clostridium difficile Toxin Assay - Final Complete c.diff. - negative Laboratory Tests Test 05/16/17 05:00 05/16/17 09:55 White Blood Count 14.4 K/UL (4.8-10.8) H Red Blood Count 2.81 M/UL (4.20-5.40) L Hemoglobin 8.6 G/DL (12.0-16.0) L Hematocrit 26.6 % (37.0-47.0) L Mean Corpuscular Volume 95 FL (80-99) Mean Corpuscular Hemoglobin 30.5 PG (27.0-31.0) Mean Corpuscular Hemoglobin Concent 32.1 G/DL (32.0-36.0) Red Cell Distribution Width 15.3 % (11.6-14.8) H Platelet Count 442 K/UL (150-450) Mean Platelet Volume 5.3 FL (6.5-10.1) L Neutrophils (%) (Auto) 72.3 % (45.0-75.0) Lymphocytes (%) (Auto) 17.7 % (20.0-45.0) L Monocytes (%) (Auto) 7.0 % (1.0-10.0) Eosinophils (%) (Auto) 2.6 % (0.0-3.0) Basophils (%) (Auto) 0.4 % (0.0-2.0) Sodium Level 146 MMOL/L (136-145) H Potassium Level 3.8 MMOL/L (3.5-5.1) Chloride Level 118 MMOL/L (98-107) H Carbon Dioxide Level 20 MMOL/L (21-32) L Anion Gap 8 mmol/L (5-15) Blood Urea Nitrogen 7 mg/dL (7-18) Creatinine 0.4 MG/DL (0.55-1.30) L Estimat Glomerular Filtration Rate mL/min (>60) Glucose Level 118 MG/DL (74-106) H Calcium Level 7.3 MG/DL (8.5-10.1) L Phosphorus Level 1.4 MG/DL (2.5-4.9) L Magnesium Level 1.5 MG/DL (1.8-2.4) L Total Bilirubin 0.2 MG/DL (0.2-1.0) Aspartate Amino Transf (AST/SGOT) 13 U/L (15-37) L Alanine Aminotransferase (ALT/SGPT) 8 U/L (12-78) L Alkaline Phosphatase 58 U/L (46-116) C-Reactive Protein, Quantitative 4.3 mg/dL (0.00-0.90) H Pro-B-Type Natriuretic Peptide 3198 pg/mL (0-125) H Total Protein 5.3 G/DL (6.4-8.2) L Albumin 1.5 G/DL (3.4-5.0) L Globulin 3.8 g/dL Albumin/Globulin Ratio 0.4 (1.0-2.7) L Arterial Blood pH 7.389 (7.350-7.450) Arterial Blood Partial Pressure CO2 32.0 mmHg (35.0-45.0) L Arterial Blood Partial Pressure O2 107.3 mmHg (75.0-100.0) H Arterial Blood HCO3 18.9 mmol/L (22.0-26.0) L Arterial Blood Oxygen Saturation 97.4 % (92.0-98.0) Arterial Blood Base Excess -5.3 Kelvin Test Positive Current Medications Medications (Trade) Dose Ordered Sig/Jacque Route PRN Reason Start Time Stop Time Status Last Admin Dose Admin Acetaminophen (Tylenol) 650 mg Q4H PRN RECTAL FEVER 05/10/17 01:45 06/09/17 01:44 Acetaminophen (Tylenol) 650 mg Q4H PRN RECTAL Mild Pain (Pain Scale 1-3) 05/10/17 01:45 06/09/17 01:44 Albuterol/ Ipratropium (Albuterol/ Ipratropium) 3 ml Q6HR PRN HHN Shortness of Breath 05/15/17 12:45 05/20/17 12:44 Bisacodyl (Dulcolax) 10 mg DAILYPRN PRN RECTAL Constipation 05/10/17 01:45 06/09/17 01:44 Chlorhexidine Gluconate (Laly-Hex 2%) 1 applic DAILY@2000 TOPIC 05/13/17 20:00 06/12/17 19:59 05/15/17 19:36 Clotrimazole (Lotrimin) 1 applic EVERY 12 HOURS TOPIC 05/10/17 15:00 06/09/17 14:59 05/16/17 08:53 Dextrose (Dextrose 50%) STAT PRN IV Hypoglycemia 05/10/17 01:45 06/09/17 01:44 Diltiazem HCl (Cardizem) 10 mg Q1HR PRN IVP Heart rate greater than 120. 05/14/17 19:30 06/13/17 19:29 Docusate Sodium (Colace) 100 mg EVERY 12 HOURS ORAL 05/11/17 10:00 06/10/17 09:59 05/14/17 09:14 Heparin Sodium (Porcine) (Heparin 5000 units/ml) 5,000 units EVERY 12 HOURS SUBQ 05/10/17 09:00 06/09/17 08:59 05/16/17 09:00 Metronidazole 100 ml @ 100 mls/hr Q8HR IVPB 05/14/17 22:00 05/21/17 23:59 05/16/17 15:04 Norepinephrine Bitartrate 8 mg/ Dextrose 254 ml @ 0 mls/hr Q24H IV 05/10/17 09:30 06/09/17 05:59 05/11/17 11:34 Ondansetron HCl (Zofran) 4 mg Q6H PRN IVP Nausea & Vomiting 05/10/17 01:45 06/09/17 01:44 Pantoprazole (Protonix) 40 mg Q12HR IV 05/10/17 21:00 06/09/17 20:59 05/16/17 08:53 Phosphorus (Phospha 250 Neutral) 500 mg THREE TIMES A DAY NG 05/16/17 13:00 06/15/17 12:59 05/16/17 17:58 Piperacillin Sod/ Tazobactam Sod 3.375 gm/Sodium Chloride 110 ml @ 27.5 mls/hr EVERY 8 HOURS IVPB 05/14/17 11:00 05/19/17 10:59 05/16/17 15:04 Polyethylene Glycol (Miralax) 17 gm DAILYPRN PRN ORAL Constipation 05/10/17 01:45 06/09/17 01:44 Vancomycin HCl (Vanco rx to dose) 1 ea DAILY PRN MISC Per rx protocol 05/10/17 01:45 06/09/17 01:44 Vancomycin/Sodium Chloride 250 ml @ 166.667 mls/hr Q12HR IVPB 05/12/17 09:00 05/17/17 08:59 05/16/17 08:53 TIERA PRADO May 16, 2017 18:45
[2017-05-16] MEDS: Dyna-Hex 2% Top Sol 2oz TOPIC SCH (21:04)
[2017-05-16] MEDS: Vancomycin 750mg/NS 250ml 250 ML IVPB SCH (21:05)
[2017-05-17] VITALS (24 sets, daily range): BP systolic 101–146; BP diastolic 31–91
[2017-05-17 05:37] LABS: HEMATOCRIT 31.1 % (37.0-47.0); MEAN CORPUSCULAR VOLUME 93 FL (80-99); PLATELET COUNT 663 K/UL (150-450); RED BLOOD COUNT 3.34 M/UL (4.20-5.40); RED CELL DISTRIBUTION WIDTH 14.7 % (11.6-14.8); WHITE BLOOD COUNT 19.2 K/UL (4.8-10.8)
[2017-05-17] MEDS: Zosyn 3.375gm q8h **Extended infusion IVPB SCH ×6 (05:44→21:33)
[2017-05-17 06:15] LABS: ALANINE AMINOTRANSFERASE 9 U/L (12-78); ALBUMIN 1.8 G/DL (3.4-5.0); ALBUMIN/GLOBULIN RATIO 0.4 (1.0-2.7); ALKALINE PHOSPHATASE 62 U/L (46-116); ANION GAP 10 mmol/L (5-15); ASPARTATE AMINO TRANSFERASE 13 U/L (15-37); BILIRUBIN,TOTAL 0.2 MG/DL (0.2-1.0); BLOOD UREA NITROGEN 6 mg/dL (7-18); CALCIUM 7.7 MG/DL (8.5-10.1); CARBON DIOXIDE 18 MMOL/L (21-32); CHLORIDE 117 MMOL/L (98-107); CREATININE 0.4 MG/DL (0.55-1.30); PHOSPHORUS 1.7 MG/DL (2.5-4.9); POTASSIUM 3.6 MMOL/L (3.5-5.1); SODIUM 145 MMOL/L (136-145)
[2017-05-17] MEDS: Phospha 250 Neutral tab NG SCH ×3 (08:37→17:43)
[2017-05-17] MEDS: Pantoprazole Inj IV SCH ×2 (08:37→20:34)
[2017-05-17] MEDS: Docusate 100mg/10ml Liq ORAL SCH ×2 (08:39→20:35)
[2017-05-17] MEDS: Heparin 5000 units/ml inj SUBQ SCH ×2 (08:46→20:34)
[2017-05-17] MEDS ORDERED: Sodium Phosphate 30 MM in NS 275 ML IV ONE (09:00)
[2017-05-17] MEDS: Vancomycin 750mg/NS 250ml 250 ML IVPB SCH ×2 (09:17→20:34)
--- NOTE | 2017-05-17 09:51 | Pulmonolgy Critical Care Note ---
Critical Care - Asmt/Plan Problems: (1) Acute respiratory failure with hypoxia and hypercapnia (2) Acute encephalopathy (3) Sepsis (4) Aspiration pneumonia Respiratory: monitor respiratory rate, adjust FIO2, CXR, other - still extensive infiltrate on cxr. Cardiac: continue to monitor HR/BP Renal: F/U I&O, keep IV fluid, check electrolytes Infectious Disease: check cultures Gastrointestinal: continue feedings/current rate Endocrine: monitor blood sugar, check HgA1C Hematologic: transfuse if hgb<8.5 Neurologic: PRN Ativan, PRN Morphine, keep patient comfortable Affect: PRN ativan Notes Reviewed: transcriptionist, cardio Discussed with: nurses, consultants, classification case managerdining services manager - Objective Last 24 Hour Vital Signs Date Time Temp Pulse Resp B/P (MAP) Pulse Ox O2 Delivery O2 Flow Rate FiO2 05/17/17 09:18 121/51 05/17/17 09:18 40 05/17/17 09:00 88 33 121/51 96 Mechanical Ventilator 40 05/17/17 08:52 99 05/17/17 08:50 85 32 40 05/17/17 08:00 83 05/17/17 08:00 98.6 82 33 130/51 96 Mechanical Ventilator 40 05/17/17 08:00 40 05/17/17 07:30 86 30 128/48 96 Mechanical Ventilator 40 05/17/17 07:05 76 28 40 05/17/17 06:00 87 23 126/46 96 Mechanical Ventilator 40 05/17/17 05:22 91 28 40 05/17/17 05:00 107 27 146/66 99 Mechanical Ventilator 40 05/17/17 04:00 40 05/17/17 04:00 77 05/17/17 04:00 98.8 77 30 135/50 100 Mechanical Ventilator 40 05/17/17 03:21 92 32 40 05/17/17 03:00 82 29 115/70 100 Mechanical Ventilator 40 05/17/17 02:00 75 22 105/91 99 Mechanical Ventilator 40 05/17/17 01:30 78 29 40 05/17/17 01:00 73 22 107/67 99 Mechanical Ventilator 40 05/17/17 00:00 40 05/17/17 00:00 76 05/17/17 00:00 98.7 76 25 111/53 99 Mechanical Ventilator 40 05/16/17 23:30 72 24 40 05/16/17 23:00 71 22 116/45 99 Mechanical Ventilator 40 05/16/17 22:00 78 23 117/42 99 Mechanical Ventilator 40 05/16/17 21:30 108 23 40 05/16/17 21:00 76 23 111/42 98 Mechanical Ventilator 40 05/16/17 20:00 72 05/16/17 20:00 98.9 72 24 116/42 97 Mechanical Ventilator 40 05/16/17 20:00 40 05/16/17 19:30 70 28 40 05/16/17 19:00 72 21 111/40 100 Mechanical Ventilator 40 05/16/17 18:00 74 19 113/39 100 Mechanical Ventilator 40 05/16/17 17:00 94 18 111/42 100 Mechanical Ventilator 40 05/16/17 16:39 93 30 40 05/16/17 16:00 98.7 77 25 118/45 100 Mechanical Ventilator 40 05/16/17 16:00 79 05/16/17 15:27 85 26 40 05/16/17 15:00 72 26 120/48 100 Mechanical Ventilator 40 05/16/17 14:00 74 26 124/44 100 Mechanical Ventilator 40 05/16/17 14:00 40 05/16/17 13:00 76 27 125/42 100 Mechanical Ventilator 40 05/16/17 13:00 40 05/16/17 12:39 71 29 40 05/16/17 12:00 84 05/16/17 12:00 98.2 79 29 124/46 100 Mechanical Ventilator 40 05/16/17 12:00 40 05/16/17 11:44 74 28 40 05/16/17 11:00 40 05/16/17 10:50 76 28 40 05/16/17 10:19 100 05/16/17 10:19 86 29 40 05/16/17 10:00 79 28 125/61 100 Mechanical Ventilator 40 05/16/17 10:00 40 Status: awake Condition: grave HEENT: atraumatic Lungs: clear Heart: HR/BP unstable Abdomen: soft, non-tender, active bowel sounds Extremities: no C/C/E Micro: Microbiology Date/Time Source Procedure Growth Status 05/15/17 18:00 Stool Clostridium difficile Toxin Assay - Final Complete Critical Care - Subjective ROS Limited/Unobtainable: Yes ICU Day: 8 Intubation Day: 8 Condition: critical FI02: 40 Vent Support Breath Rate: 8 Vent Support Mode: IMV/SIMV Vent Tidal Volume: 500 Sputum Amount: Small PEEP: 0.0 PIP: 11 Tube Feeding Amount: 45 I&O: Intake and Output 05/16/17 05/17/17 19:00 07:00 Intake Total 1150 ml 955.00 ml Output Total 480 ml 360 ml Balance 670 ml 595.00 ml IV Total 460 ml 460.00 ml Tube Feeding 540 ml 495 ml Other 150 ml Output Urine Total 480 ml 360 ml # Bowel Movements 2 2 CXR: no change ET-Tube: 7.5 ET Position: 23 Labs: Laboratory Tests Test 05/16/17 09:55 05/17/17 04:00 05/17/17 05:00 Arterial Blood pH 7.389 (7.350-7.450) 7.422 (7.350-7.450) Arterial Blood Partial Pressure CO2 32.0 mmHg (35.0-45.0) L 28.6 mmHg (35.0-45.0) L Arterial Blood Partial Pressure O2 107.3 mmHg (75.0-100.0) H 92.3 mmHg (75.0-100.0) Arterial Blood HCO3 18.9 mmol/L (22.0-26.0) L 18.2 mmol/L (22.0-26.0) L Arterial Blood Oxygen Saturation 97.4 % (92.0-98.0) 96.7 % (92.0-98.0) Arterial Blood Base Excess -5.3 -5.3 Kelvin Test Positive Positive White Blood Count 19.2 K/UL (4.8-10.8) H Red Blood Count 3.34 M/UL (4.20-5.40) L Hemoglobin 10.0 G/DL (12.0-16.0) L Hematocrit 31.1 % (37.0-47.0) L Mean Corpuscular Volume 93 FL (80-99) Mean Corpuscular Hemoglobin 30.0 PG (27.0-31.0) Mean Corpuscular Hemoglobin Concent 32.1 G/DL (32.0-36.0) Red Cell Distribution Width 14.7 % (11.6-14.8) Platelet Count 663 K/UL (150-450) H Mean Platelet Volume 5.3 FL (6.5-10.1) L Neutrophils (%) (Auto) % (45.0-75.0) Lymphocytes (%) (Auto) % (20.0-45.0) Monocytes (%) (Auto) % (1.0-10.0) Eosinophils (%) (Auto) % (0.0-3.0) Basophils (%) (Auto) % (0.0-2.0) Differential Total Cells Counted 100 Neutrophils % (Manual) 59 % (45-75) Lymphocytes % (Manual) 30 % (20-45) Monocytes % (Manual) 7 % (1-10) Eosinophils % (Manual) 4 % (0-3) H Basophils % (Manual) 0 % (0-2) Band Neutrophils 0 % (0-8) Platelet Estimate Increased H Platelet Morphology Normal Hypochromasia 1+ Anisocytosis 1+ Sodium Level 145 MMOL/L (136-145) Potassium Level 3.6 MMOL/L (3.5-5.1) Chloride Level 117 MMOL/L (98-107) H Carbon Dioxide Level 18 MMOL/L (21-32) L Anion Gap 10 mmol/L (5-15) Blood Urea Nitrogen 6 mg/dL (7-18) L Creatinine 0.4 MG/DL (0.55-1.30) L Estimat Glomerular Filtration Rate mL/min (>60) Glucose Level 154 MG/DL (74-106) H Calcium Level 7.7 MG/DL (8.5-10.1) L Phosphorus Level 1.7 MG/DL (2.5-4.9) L Magnesium Level 1.7 MG/DL (1.8-2.4) L Total Bilirubin 0.2 MG/DL (0.2-1.0) Aspartate Amino Transf (AST/SGOT) 13 U/L (15-37) L Alanine Aminotransferase (ALT/SGPT) 9 U/L (12-78) L Alkaline Phosphatase 62 U/L (46-116) Total Protein 6.2 G/DL (6.4-8.2) L Albumin 1.8 G/DL (3.4-5.0) L Globulin 4.4 g/dL Albumin/Globulin Ratio 0.4 (1.0-2.7) L DWAYNE CHERY May 17, 2017 09:51
--- NOTE | 2017-05-17 10:01 | Diagnostic Imaging Report ---
Indication: Dyspnea Comparison: 05/16/2017 A single view chest radiograph was obtained. Findings: Patchy pulmonary edema again demonstrated without change. Heart size is stable. Tubes and lines are stable. IMPRESSION: No change from the prior day
[2017-05-17] MEDS ORDERED: Acetaminophen 650mg/20.3ml GT PRN (12:00)
--- NOTE | 2017-05-17 14:50 | General Progress Note ---
Assessment/Plan Problem List: (1) SVT (supraventricular tachycardia) ICD Codes: I47.1 - SVT (supraventricular tachycardia) SNOMED: 8442950 (2) Septic shock ICD Codes: A41.9 - Sepsis, unspecified organism; R65.21 - Severe sepsis with septic shock SNOMED: 01090870 (3) Acute respiratory failure with hypoxia and hypercapnia ICD Codes: J96.01 - Acute respiratory failure with hypoxia; J96.02 - Acute respiratory failure with hypercapnia SNOMED: 63234781, 81396351, 896061804 (4) Aspiration pneumonia ICD Codes: J69.0 - Pneumonitis due to inhalation of food and vomit SNOMED: 416039005 Qualifiers: Qualified Codes: J69.0 - Pneumonitis due to inhalation of food and vomit (5) Toxic metabolic encephalopathy ICD Codes: G92 - Toxic encephalopathy SNOMED: 804367521 (6) JUJU (acute kidney injury) ICD Codes: N17.9 - Acute kidney failure, unspecified SNOMED: 17073443 (7) Hyponatremia ICD Codes: E87.1 - Hyponatremia SNOMED: 61526274 (8) Hyperkalemia ICD Codes: E87.5 - Hyperkalemia SNOMED: 60413419 (9) Seizure disorder ICD Codes: G40.909 - Epilepsy, unspecified, not intractable, without status epilepticus SNOMED: 570369786 (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 (11) Dementia ICD Codes: F03.90 - Dementia SNOMED: 80149149 (12) S/P percutaneous endoscopic gastrostomy (PEG) tube placement ICD Codes: Z93.1 - Gastrostomy status SNOMED: 412458892 (13) Hypercalcemia ICD Codes: E83.52 - Hypercalcemia SNOMED: 29070017 (14) Hypophosphatemia ICD Codes: E83.39 - Other disorders of phosphorus metabolism SNOMED: 6948569 (15) Hypomagnesemia ICD Codes: E83.42 - Hypomagnesemia SNOMED: 842829577 (16) Hypokalemia ICD Codes: E87.6 - Hypokalemia SNOMED: 56089880 Status: stable Assessment/Plan Cont ICU care Pulm consulted Cont on vent and wean as tolerated Daily SBTs Now off pressors Cardiology consulted given SVT ID consulted Cont broad-spectrum abx: vanco, zosyn; cipro added for double pseudomonas coverage s/p flagyl (C. diff neg) F/u cultures Trend CBC Trend ABG Monitor CXR Renal consulted s/p IVFs Replete lytes Trend BMP Cont tube feeds via PEG Cont home meds including Eliuqis, Depakote Pain control, supportive care, bowel regimen D/w daughter need for tracheostomy and she is hesitant at this time DVT ppx: Eliquis GI ppx: PPI Dispo: pending further stabilization, cont ICU care FULL CODE per discussion w/ daughter At the time of my involvement, the patient's condition was critical with high potential for and/or physiologic deterioration secondary to acute respiratory failure 2/2 aspiration pneumonia, sepsis, acute encephalopathy as delineated in the note above. On the above date of service, I spent a total of 36 minutes in the ICU evaluating, managing, and providing critical care services to this patient, including time spent documenting these activities, counseling patient/family, and coordinating care. Critical care services performed include: Telemetry Review Hemodynamic measurement interpretation Laboratory data review and interpretation Ventilator setting review, management, and adjustment Discussion of care plans with patient, family, and/or surrogate decision makers Discussion of patient's care with primary medical team, surgical team, and/or consulting service Decision to obtain further radiologic evaluation, after consideration of risk/ benefit ratio Decision to perform invasive procedure, after consideration of risk/benefit ratio Review of most recent microbiology results with assessment and modification of antimicrobial coverage Discussion of patient's code status and further advancement towards the ultimate goals of care Plan outlined above discussed with patient/family, NURSING ASSOC, 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 D/w pulm re weaning Dw cardiology re SVT D/w pt's daughter regarding plan of care, need for tracheostomy D/w ID re abx Time of note may not reflect time of encounter Subjective Date patient seen: May 17, 2017 Time patient seen: 14:49 ROS Limited/Unobtainable: Yes Allergies: Coded Allergies: NO KNOWN DRUG ALLERGIES (Unverified Allergy, Unknown, 07/29/14) Subjective No acute o/n events Now off pressors SBT attempted this AM but pt failed as she went into SVT which converted with diltiazem IV Pt intubated, sedated but arousable to voice Unable to obtain ROS as pt sedated and also w/ dementia Objective Last 24 Hour Vital Signs Date Time Temp Pulse Resp B/P (MAP) Pulse Ox O2 Delivery O2 Flow Rate FiO2 05/17/17 13:15 81 32 40 05/17/17 12:16 180 117/44 05/17/17 12:00 96 05/17/17 12:00 98.6 94 34 116/44 96 Mechanical Ventilator 40 05/17/17 11:30 85 32 40 05/17/17 11:00 83 30 117/51 96 Mechanical Ventilator 40 05/17/17 10:00 69 33 121/49 96 Mechanical Ventilator 40 05/17/17 09:18 121/51 05/17/17 09:18 40 05/17/17 09:00 88 33 121/51 96 Mechanical Ventilator 40 05/17/17 08:52 99 05/17/17 08:50 85 32 40 05/17/17 08:00 83 05/17/17 08:00 98.6 82 33 130/51 96 Mechanical Ventilator 40 05/17/17 08:00 40 05/17/17 07:30 86 30 128/48 96 Mechanical Ventilator 40 05/17/17 07:05 76 28 40 05/17/17 06:00 87 23 126/46 96 Mechanical Ventilator 40 05/17/17 05:22 91 28 40 05/17/17 05:00 107 27 146/66 99 Mechanical Ventilator 40 05/17/17 04:00 40 05/17/17 04:00 77 05/17/17 04:00 98.8 77 30 135/50 100 Mechanical Ventilator 40 05/17/17 03:21 92 32 40 05/17/17 03:00 82 29 115/70 100 Mechanical Ventilator 40 05/17/17 02:00 75 22 105/91 99 Mechanical Ventilator 40 05/17/17 01:30 78 29 40 05/17/17 01:00 73 22 107/67 99 Mechanical Ventilator 40 05/17/17 00:00 40 05/17/17 00:00 76 05/17/17 00:00 98.7 76 25 111/53 99 Mechanical Ventilator 40 05/16/17 23:30 72 24 40 05/16/17 23:00 71 22 116/45 99 Mechanical Ventilator 40 05/16/17 22:00 78 23 117/42 99 Mechanical Ventilator 40 05/16/17 21:30 108 23 40 05/16/17 21:00 76 23 111/42 98 Mechanical Ventilator 40 05/16/17 20:00 72 05/16/17 20:00 98.9 72 24 116/42 97 Mechanical Ventilator 40 05/16/17 20:00 40 18 19:30 70 28 40 05/16/17 19:00 72 21 111/40 100 Mechanical Ventilator 40 05/16/17 18:00 74 19 113/39 100 Mechanical Ventilator 40 05/16/17 17:00 94 18 111/42 100 Mechanical Ventilator 40 05/16/17 16:39 93 30 40 05/16/17 16:00 98.7 77 25 118/45 100 Mechanical Ventilator 40 05/16/17 16:00 79 05/16/17 15:27 85 26 40 05/16/17 15:00 72 26 120/48 100 Mechanical Ventilator 40 Intake and Output 05/16/17 05/17/17 19:00 07:00 Intake Total 1150 ml 955.00 ml Output Total 480 ml 360 ml Balance 670 ml 595.00 ml IV Total 460 ml 460.00 ml Tube Feeding 540 ml 495 ml Other 150 ml Output Urine Total 480 ml 360 ml # Bowel Movements 2 2 Laboratory Tests 05/17/17 04:00: Arterial Blood pH 7.422, Arterial Blood Partial Pressure CO2 28.6L, Arterial Blood Partial Pressure O2 92.3, Arterial Blood HCO3 18.2L, Arterial Blood Oxygen Saturation 96.7, Arterial Blood Base Excess -5.3, Kelvin Test Positive 05/17/17 05:00: White Blood Count 19.2H, Red Blood Count 3.34L, Hemoglobin 10.0L, Hematocrit 31.1L, Mean Corpuscular Volume 93, Mean Corpuscular Hemoglobin 30.0, Mean Corpuscular Hemoglobin Concent 32.1, Red Cell Distribution Width 14.7, Platelet Count 663H, Mean Platelet Volume 5.3L, Neutrophils (%) (Auto) , Lymphocytes (%) (Auto) , Monocytes (%) (Auto) , Eosinophils (%) (Auto) , Basophils (%) (Auto) , Differential Total Cells Counted 100, Neutrophils % (Manual) 59, Lymphocytes % ( Manual) 30, Monocytes % (Manual) 7, Eosinophils % (Manual) 4H, Basophils % ( Manual) 0, Band Neutrophils 0, Platelet Estimate IncreasedH, Platelet Morphology Normal, Hypochromasia 1+, Anisocytosis 1+, Sodium Level 145, Potassium Level 3.6, Chloride Level 117H, Carbon Dioxide Level 18L, Anion Gap 10 , Blood Urea Nitrogen 6L, Creatinine 0.4L, Estimat Glomerular Filtration Rate , Glucose Level 154H, Calcium Level 7.7L, Phosphorus Level 1.7L, Magnesium Level 1.7L, Total Bilirubin 0.2, Aspartate Amino Transf (AST/SGOT) 13L, Alanine Aminotransferase (ALT/SGPT) 9L, Alkaline Phosphatase 62, Total Protein 6.2L, Albumin 1.8L, Globulin 4.4, Albumin/Globulin Ratio 0.4L Height (Feet): 5 Height (Inches): 4.00 Weight (Pounds): 167 Objective General: intubated, sedated, arousable to voice Head: normocephalic, without obvious abnormality, atraumatic Eyes: conjunctivae/corneas clear. PERRL, EOM's intact Throat: lips, mucosa, and tongue normal. MMM Neck: supple, symmetrical, trachea midline, and no JVD Lungs: +rhonchi b/l Heart: regular rate and rhythm, S1, S2 normal, no murmur, click, rub or gallop Abdomen: soft, non-tender, non-distended, bowel sounds normal; Extremities: extremities normal, atraumatic, no cyanosis, +BLE edema Pulses: 2+ and symmetric Skin: skin color, texture, turgor normal; no rashes or lesions Neurologic: moving all extremities Prachi Mejia M.D. May 17, 2017 14:50
[2017-05-17] MEDS ORDERED: HYDROcodone/Acetamin 10/325 tab GT PRN (17:00)
--- NOTE | 2017-05-17 17:17 | Cardiac Electrophysiology PN ---
Subjective Subjective [id number] Objective Last 24 Hour Vital Signs Date Time Temp Pulse Resp B/P (MAP) Pulse Ox O2 Delivery O2 Flow Rate FiO2 05/17/17 16:57 66 23 40 05/17/17 16:00 40 05/17/17 16:00 76 05/17/17 16:00 98.5 66 19 118/42 100 Mechanical Ventilator 40 05/17/17 15:00 76 20 118/46 100 Mechanical Ventilator 40 05/17/17 15:00 70 21 40 05/17/17 14:00 81 22 115/45 100 Mechanical Ventilator 40 05/17/17 13:15 81 32 40 05/17/17 13:00 73 28 118/46 100 Mechanical Ventilator 40 05/17/17 13:00 40 05/17/17 12:16 180 117/44 05/17/17 12:00 96 05/17/17 12:00 98.6 94 34 116/44 96 Mechanical Ventilator 40 05/17/17 11:30 85 32 40 05/17/17 11:00 83 30 117/51 96 Mechanical Ventilator 40 05/17/17 10:00 69 33 121/49 96 Mechanical Ventilator 40 05/17/17 09:18 121/51 05/17/17 09:18 40 05/17/17 09:00 88 33 121/51 96 Mechanical Ventilator 40 05/17/17 08:52 99 05/17/17 08:50 85 32 40 05/17/17 08:00 83 05/17/17 08:00 98.6 82 33 130/51 96 Mechanical Ventilator 40 05/17/17 08:00 40 05/17/17 07:30 86 30 128/48 96 Mechanical Ventilator 40 05/17/17 07:05 76 28 40 05/17/17 06:00 87 23 126/46 96 Mechanical Ventilator 40 05/17/17 05:22 91 28 40 05/17/17 05:00 107 27 146/66 99 Mechanical Ventilator 40 05/17/17 04:00 40 05/17/17 04:00 77 05/17/17 04:00 98.8 77 30 135/50 100 Mechanical Ventilator 40 05/17/17 03:21 92 32 40 05/17/17 03:00 82 29 115/70 100 Mechanical Ventilator 40 05/17/17 02:00 75 22 105/91 99 Mechanical Ventilator 40 05/17/17 01:30 78 29 40 05/17/17 01:00 73 22 107/67 99 Mechanical Ventilator 40 05/17/17 00:00 40 05/17/17 00:00 76 05/17/17 00:00 98.7 76 25 111/53 99 Mechanical Ventilator 40 05/16/17 23:30 72 24 40 05/16/17 23:00 71 22 116/45 99 Mechanical Ventilator 40 05/16/17 22:00 78 23 117/42 99 Mechanical Ventilator 40 05/16/17 21:30 108 23 40 05/16/17 21:00 76 23 111/42 98 Mechanical Ventilator 40 05/16/17 20:00 72 05/16/17 20:00 98.9 72 24 116/42 97 Mechanical Ventilator 40 05/16/17 20:00 40 05/16/17 19:30 70 28 40 05/16/17 19:00 72 21 111/40 100 Mechanical Ventilator 40 05/16/17 18:00 74 19 113/39 100 Mechanical Ventilator 40 Intake and Output 05/16/17 05/17/17 19:00 07:00 Intake Total 1150 ml 955.00 ml Output Total 480 ml 360 ml Balance 670 ml 595.00 ml IV Total 460 ml 460.00 ml Tube Feeding 540 ml 495 ml Other 150 ml Output Urine Total 480 ml 360 ml # Bowel Movements 2 2 Laboratory Tests Test 05/17/17 04:00 05/17/17 05:00 Arterial Blood pH 7.422 (7.350-7.450) Arterial Blood Partial Pressure CO2 28.6 mmHg (35.0-45.0) L Arterial Blood Partial Pressure O2 92.3 mmHg (75.0-100.0) Arterial Blood HCO3 18.2 mmol/L (22.0-26.0) L Arterial Blood Oxygen Saturation 96.7 % (92.0-98.0) Arterial Blood Base Excess -5.3 Kelvin Test Positive White Blood Count 19.2 K/UL (4.8-10.8) H Red Blood Count 3.34 M/UL (4.20-5.40) L Hemoglobin 10.0 G/DL (12.0-16.0) L Hematocrit 31.1 % (37.0-47.0) L Mean Corpuscular Volume 93 FL (80-99) Mean Corpuscular Hemoglobin 30.0 PG (27.0-31.0) Mean Corpuscular Hemoglobin Concent 32.1 G/DL (32.0-36.0) Red Cell Distribution Width 14.7 % (11.6-14.8) Platelet Count 663 K/UL (150-450) H Mean Platelet Volume 5.3 FL (6.5-10.1) L Neutrophils (%) (Auto) % (45.0-75.0) Lymphocytes (%) (Auto) % (20.0-45.0) Monocytes (%) (Auto) % (1.0-10.0) Eosinophils (%) (Auto) % (0.0-3.0) Basophils (%) (Auto) % (0.0-2.0) Differential Total Cells Counted 100 Neutrophils % (Manual) 59 % (45-75) Lymphocytes % (Manual) 30 % (20-45) Monocytes % (Manual) 7 % (1-10) Eosinophils % (Manual) 4 % (0-3) H Basophils % (Manual) 0 % (0-2) Band Neutrophils 0 % (0-8) Platelet Estimate Increased H Platelet Morphology Normal Hypochromasia 1+ Anisocytosis 1+ Sodium Level 145 MMOL/L (136-145) Potassium Level 3.6 MMOL/L (3.5-5.1) Chloride Level 117 MMOL/L (98-107) H Carbon Dioxide Level 18 MMOL/L (21-32) L Anion Gap 10 mmol/L (5-15) Blood Urea Nitrogen 6 mg/dL (7-18) L Creatinine 0.4 MG/DL (0.55-1.30) L Estimat Glomerular Filtration Rate mL/min (>60) Glucose Level 154 MG/DL (74-106) H Calcium Level 7.7 MG/DL (8.5-10.1) L Phosphorus Level 1.7 MG/DL (2.5-4.9) L Magnesium Level 1.7 MG/DL (1.8-2.4) L Total Bilirubin 0.2 MG/DL (0.2-1.0) Aspartate Amino Transf (AST/SGOT) 13 U/L (15-37) L Alanine Aminotransferase (ALT/SGPT) 9 U/L (12-78) L Alkaline Phosphatase 62 U/L (46-116) Total Protein 6.2 G/DL (6.4-8.2) L Albumin 1.8 G/DL (3.4-5.0) L Globulin 4.4 g/dL Albumin/Globulin Ratio 0.4 (1.0-2.7) L Microbiology Date/Time Source Procedure Growth Status 05/15/17 18:00 Stool Clostridium difficile Toxin Assay - Final Complete MALLORY BROWN May 17, 2017 17:17
[2017-05-17] MEDS: dilTIAZem HCl 30mg tab ORAL SCH ×2 (17:48→23:57)
--- NOTE | 2017-05-17 18:04 | Nephrology Progress Note ---
Assessment/Plan Problem List: (1) Acute respiratory failure with hypoxia and hypercapnia (2) Septic shock (3) Renal insufficiency (4) Hypercalcemia Assessment acute renal failure resolving ? CKD underlying Acute respiratory failure septic shock sever Hypercalcemia, corrected for low Albumin HypoAlbuminemia Anemia Dementia Plan Plan: Weaning in process mag and phos supplement as needed monitor serum Ca 2D echo- Left ventricular ejection fraction estimated to be 65-70%. increase feeding Phos K and Mag supplement as needed hemodynamic support Aredia given 05/10 monitor renal parameters serum cortisol level 12 avoid nephrotoxics per orders Subjective ROS Limited/Unobtainable: Yes Objective Objective Last 24 Hour Vital Signs Date Time Temp Pulse Resp B/P (MAP) Pulse Ox O2 Delivery O2 Flow Rate FiO2 05/17/17 17:48 78 104/31 05/17/17 17:00 82 20 104/31 100 Mechanical Ventilator 40 05/17/17 16:57 66 23 40 05/17/17 16:00 40 05/17/17 16:00 76 05/17/17 16:00 98.5 66 19 118/42 100 Mechanical Ventilator 40 05/17/17 15:00 76 20 118/46 100 Mechanical Ventilator 40 05/17/17 15:00 70 21 40 05/17/17 14:00 81 22 115/45 100 Mechanical Ventilator 40 05/17/17 13:15 81 32 40 05/17/17 13:00 73 28 118/46 100 Mechanical Ventilator 40 05/17/17 13:00 40 05/17/17 12:16 180 117/44 05/17/17 12:00 96 05/17/17 12:00 98.6 94 34 116/44 96 Mechanical Ventilator 40 05/17/17 11:30 85 32 40 05/17/17 11:00 83 30 117/51 96 Mechanical Ventilator 40 05/17/17 10:00 69 33 121/49 96 Mechanical Ventilator 40 05/17/17 09:18 121/51 05/17/17 09:18 40 05/17/17 09:00 88 33 121/51 96 Mechanical Ventilator 40 05/17/17 08:52 99 05/17/17 08:50 85 32 40 05/17/17 08:00 83 05/17/17 08:00 98.6 82 33 130/51 96 Mechanical Ventilator 40 05/17/17 08:00 40 05/17/17 07:30 86 30 128/48 96 Mechanical Ventilator 40 05/17/17 07:05 76 28 40 05/17/17 06:00 87 23 126/46 96 Mechanical Ventilator 40 05/17/17 05:22 91 28 40 05/17/17 05:00 107 27 146/66 99 Mechanical Ventilator 40 05/17/17 04:00 40 05/17/17 04:00 77 05/17/17 04:00 98.8 77 30 135/50 100 Mechanical Ventilator 40 05/17/17 03:21 92 32 40 05/17/17 03:00 82 29 115/70 100 Mechanical Ventilator 40 05/17/17 02:00 75 22 105/91 99 Mechanical Ventilator 40 05/17/17 01:30 78 29 40 05/17/17 01:00 73 22 107/67 99 Mechanical Ventilator 40 05/17/17 00:00 40 05/17/17 00:00 76 05/17/17 00:00 98.7 76 25 111/53 99 Mechanical Ventilator 40 05/16/17 23:30 72 24 40 05/16/17 23:00 71 22 116/45 99 Mechanical Ventilator 40 05/16/17 22:00 78 23 117/42 99 Mechanical Ventilator 40 05/16/17 21:30 108 23 40 05/16/17 21:00 76 23 111/42 98 Mechanical Ventilator 40 05/16/17 20:00 72 05/16/17 20:00 98.9 72 24 116/42 97 Mechanical Ventilator 40 05/16/17 20:00 40 05/16/17 19:30 70 28 40 05/16/17 19:00 72 21 111/40 100 Mechanical Ventilator 40 Intake and Output 05/16/17 05/17/17 19:00 07:00 Intake Total 1150 ml 955.00 ml Output Total 480 ml 360 ml Balance 670 ml 595.00 ml IV Total 460 ml 460.00 ml Tube Feeding 540 ml 495 ml Other 150 ml Output Urine Total 480 ml 360 ml # Bowel Movements 2 2 Laboratory Tests 05/17/17 04:00: Arterial Blood pH 7.422, Arterial Blood Partial Pressure CO2 28.6L, Arterial Blood Partial Pressure O2 92.3, Arterial Blood HCO3 18.2L, Arterial Blood Oxygen Saturation 96.7, Arterial Blood Base Excess -5.3, Kelvin Test Positive 05/17/17 05:00: White Blood Count 19.2H, Red Blood Count 3.34L, Hemoglobin 10.0L, Hematocrit 31.1L, Mean Corpuscular Volume 93, Mean Corpuscular Hemoglobin 30.0, Mean Corpuscular Hemoglobin Concent 32.1, Red Cell Distribution Width 14.7, Platelet Count 663H, Mean Platelet Volume 5.3L, Neutrophils (%) (Auto) , Lymphocytes (%) (Auto) , Monocytes (%) (Auto) , Eosinophils (%) (Auto) , Basophils (%) (Auto) , Differential Total Cells Counted 100, Neutrophils % (Manual) 59, Lymphocytes % ( Manual) 30, Monocytes % (Manual) 7, Eosinophils % (Manual) 4H, Basophils % ( Manual) 0, Band Neutrophils 0, Platelet Estimate IncreasedH, Platelet Morphology Normal, Hypochromasia 1+, Anisocytosis 1+, Sodium Level 145, Potassium Level 3.6, Chloride Level 117H, Carbon Dioxide Level 18L, Anion Gap 10 , Blood Urea Nitrogen 6L, Creatinine 0.4L, Estimat Glomerular Filtration Rate , Glucose Level 154H, Calcium Level 7.7L, Phosphorus Level 1.7L, Magnesium Level 1.7L, Total Bilirubin 0.2, Aspartate Amino Transf (AST/SGOT) 13L, Alanine Aminotransferase (ALT/SGPT) 9L, Alkaline Phosphatase 62, Total Protein 6.2L, Albumin 1.8L, Globulin 4.4, Albumin/Globulin Ratio 0.4L Height (Feet): 5 Height (Inches): 4.00 Weight (Pounds): 167 General Appearance: no apparent distress Cardiovascular: normal rate Respiratory/Chest: decreased breath sounds Abdomen: distended Objective no other changes ALYSON FLANAGAN May 17, 2017 18:04
[2017-05-17] MEDS ORDERED: Potassium Phosphate 30 MM in NS 275 ML IV ONE (19:30)
[2017-05-17] MEDS: Dyna-Hex 2% Top Sol 2oz TOPIC SCH (19:45)
--- NOTE | 2017-05-17 21:00 | Consultation ---
DATE OF CONSULTATION: 05/17/2017 CARDIOLOGY CONSULTATION CONSULTING PHYSICIAN: Bret Morrow M.D. REFERRING PHYSICIAN: María Bustamante M.D. REASON FOR CONSULTATION: Recurrent supraventricular tachycardia. HISTORY OF PRESENT ILLNESS: The patient is an 86-year-old lady with history of dementia, schizophrenia, seizures, as well as history of DVT and PE, on Eliquis, as well as history of supraventricular tachycardia, CVA, asthma, as well as recurrent aspiration pneumonia, who was recently intubated in March 2017. The patient underwent PEG placement on 04/11/2017. The patient was brought to the hospital for altered mental status as well as shortness of breath. The patient was discharged home with hospice in the previous admission and the daughter decided to take her off of hospice. Per paramedics, the patient was found altered and brought to the emergency room when the patient had a white count of 29,000, hypotensive, and intubated and was brought to the intensive care unit. Over the last few days, the patient has had recurrent episodes of supraventricular tachycardia with sudden onset and sudden termination. Cardiac electrophysiology consultation was requested for further evaluation of her recurrent SVT. PAST MEDICAL HISTORY: As mentioned above. FAMILY HISTORY: Noncontributory. MEDICATIONS: Per reconciliation. SOCIAL HISTORY: She lives at home. Does not smoke or drink alcohol. REVIEW OF SYSTEMS: Cannot be obtained as the patient is intubated. PHYSICAL EXAMINATION: VITAL SIGNS: Blood pressure is 118/42, pulse 76, respirations 19, and temperature 98.5. HEAD AND NECK: She is orally intubated with no JVD. LUNGS: Coarse rhonchi. CARDIOVASCULAR: Regular S1 and S2 with no gallop. ABDOMEN: Soft and nontender. EXTREMITIES: No pitting edema. LABORATORY DATA: Labs showed white count of 19.2, hemoglobin of 10, hematocrit of 31, and platelet count is 663,000. Sodium is 145, potassium 3.6, BUN of 6, creatinine of 0.4, and glucose of 154. BNP 3198. Her telemetry strip showed episodes of SVT of sudden onset and sudden termination at the rate of 170 beats per minute. Her echocardiogram showed ejection fraction of 65% to 70% with normal left ventricular systolic function. Her EKG showed normal sinus rhythm with no evidence of pre-excitation. ASSESSMENT AND PLAN: 1. Recurrent episodes of supraventricular tachycardia. The patient is on p.r.n. Cardizem. We will start the patient on standing dose of Cardizem and add digoxin to her medical regimen. Hopefully, this two combination will decrease the frequency of her supraventricular tachyarrhythmias. In the absence of P-wave morphology, this looks like atrioventricular deonte reentrant tachycardia. 2. Respiratory failure, on the ventilator, likely due to underlying sepsis and pneumonia. 3. Status post septic shock. 4. Toxic encephalopathy. 5. Acute renal failure that has resolved. 6. Seizure disorder. 7. Deep venous thrombosis and pulmonary embolism. 8. Dementia. 9. Status post percutaneous endoscopic gastrostomy placement. Thank you very much, Dr. Bustamante, for allowing me to participate in the care of this patient. Please do not hesitate to contact me for any questions regarding my evaluation. Bret Morrow M.D. DR: FEDERICO JOB#: [id number] CC:
[2017-05-18] VITALS (24 sets, daily range): BP systolic 104–155; BP diastolic 35–89
[2017-05-18] MEDS: Zosyn 3.375gm q8h **Extended infusion IVPB SCH ×4 (05:31→15:13)
[2017-05-18] MEDS: dilTIAZem HCl 30mg tab ORAL SCH ×4 (05:31→23:29)
[2017-05-18 05:59] LABS: BASOPHILS % (AUTO) 0.7 % (0.0-2.0); EOSINOPHILS % (AUTO) 8.6 % (0.0-3.0); HEMATOCRIT 25.8 % (37.0-47.0); HEMOGLOBIN 8.3 G/DL (12.0-16.0); LYMPHOCYTES % (AUTO) 17.1 % (20.0-45.0); MEAN CORPUSCULAR VOLUME 94 FL (80-99); MONOCYTES % (AUTO) 8.3 % (1.0-10.0); NEUTROPHILS % (AUTO) 65.2 % (45.0-75.0); PLATELET COUNT 594 K/UL (150-450); RED BLOOD COUNT 2.73 M/UL (4.20-5.40); RED CELL DISTRIBUTION WIDTH 15.8 % (11.6-14.8); WHITE BLOOD COUNT 13.4 K/UL (4.8-10.8)
[2017-05-18 06:37] LABS: ALANINE AMINOTRANSFERASE < 6 U/L (12-78); ALBUMIN 1.5 G/DL (3.4-5.0); ALBUMIN/GLOBULIN RATIO 0.4 (1.0-2.7); ALKALINE PHOSPHATASE 47 U/L (46-116); ANION GAP 9 mmol/L (5-15); ASPARTATE AMINO TRANSFERASE 7 U/L (15-37); BILIRUBIN,TOTAL 0.3 MG/DL (0.2-1.0); BLOOD UREA NITROGEN 3 mg/dL (7-18); CALCIUM 6.8 MG/DL (8.5-10.1); CARBON DIOXIDE 21 MMOL/L (21-32); CHLORIDE 117 MMOL/L (98-107); CREATININE 0.4 MG/DL (0.55-1.30); POTASSIUM 3.2 MMOL/L (3.5-5.1); SODIUM 146 MMOL/L (136-145)
[2017-05-18] MEDS: Heparin 5000 units/ml inj SUBQ SCH ×2 (09:00→20:26)
--- NOTE | 2017-05-18 09:00 | Nephrology Progress Note ---
Assessment/Plan Problem List: (1) Acute respiratory failure with hypoxia and hypercapnia (2) Septic shock (3) Renal insufficiency (4) Hypercalcemia Assessment acute renal failure resolving ? CKD underlying Acute respiratory failure septic shock sever Hypercalcemia, corrected for low Albumin HypoAlbuminemia Anemia Dementia Plan Plan: Weaning in process mag and phos supplement as needed monitor serum Ca 2D echo- Left ventricular ejection fraction estimated to be 65-70%. increase feeding Phos K and Mag supplement as needed hemodynamic support Aredia given 05/10 monitor renal parameters serum cortisol level 12 avoid nephrotoxics per orders Subjective ROS Limited/Unobtainable: Yes Objective Objective Last 24 Hour Vital Signs Date Time Temp Pulse Resp B/P (MAP) Pulse Ox O2 Delivery O2 Flow Rate FiO2 05/18/17 08:00 40 05/18/17 08:00 98.7 19 29 106/47 99 Mechanical Ventilator 40 05/18/17 08:00 81 05/18/17 07:29 84 29 40 05/18/17 07:00 79 24 122/53 99 Mechanical Ventilator 40 05/18/17 06:00 80 25 115/46 100 Mechanical Ventilator 40 05/18/17 05:31 77 120/35 05/18/17 05:14 81 28 40 05/18/17 05:00 81 26 120/35 100 Mechanical Ventilator 40 05/18/17 04:00 98.4 70 26 112/44 100 Mechanical Ventilator 40 05/18/17 04:00 40 05/18/17 03:46 80 05/18/17 03:05 83 25 40 05/18/17 03:00 89 32 127/77 100 Mechanical Ventilator 40 05/18/17 02:00 86 30 144/54 100 Mechanical Ventilator 40 05/18/17 01:03 86 29 40 05/18/17 01:00 86 29 112/47 98 Mechanical Ventilator 40 05/18/17 00:00 99.2 76 25 115/46 100 Mechanical Ventilator 40 05/18/17 00:00 40 05/17/17 23:57 73 118/43 05/17/17 23:31 67 05/17/17 23:00 75 23 120/38 100 Mechanical Ventilator 40 05/17/17 22:57 80 21 40 05/17/17 22:00 86 29 120/47 98 Mechanical Ventilator 40 05/17/17 21:15 84 29 40 05/17/17 21:00 68 20 101/43 99 Mechanical Ventilator 40 05/17/17 20:00 40 05/17/17 20:00 99.5 84 30 116/51 98 Mechanical Ventilator 40 05/17/17 19:24 75 26 40 05/17/17 19:20 69 05/17/17 19:00 73 19 105/39 98 Mechanical Ventilator 40 05/17/17 18:00 86 20 120/42 97 Mechanical Ventilator 40 05/17/17 17:48 78 104/31 05/17/17 17:00 82 20 104/31 100 Mechanical Ventilator 40 05/17/17 16:57 66 23 40 05/17/17 16:00 40 05/17/17 16:00 76 05/17/17 16:00 98.5 66 19 118/42 100 Mechanical Ventilator 40 05/17/17 15:00 76 20 118/46 100 Mechanical Ventilator 40 05/17/17 15:00 70 21 40 05/17/17 14:00 81 22 115/45 100 Mechanical Ventilator 40 05/17/17 13:15 81 32 40 05/17/17 13:00 73 28 118/46 100 Mechanical Ventilator 40 05/17/17 13:00 40 05/17/17 12:16 180 117/44 05/17/17 12:00 96 05/17/17 12:00 98.6 94 34 116/44 96 Mechanical Ventilator 40 05/17/17 11:30 85 32 40 05/17/17 11:00 83 30 117/51 96 Mechanical Ventilator 40 05/17/17 10:00 69 33 121/49 96 Mechanical Ventilator 40 05/17/17 09:18 121/51 05/17/17 09:18 40 05/17/17 09:00 88 33 121/51 96 Mechanical Ventilator 40 Intake and Output 05/17/17 05/18/17 19:00 07:00 Intake Total 1733.2 ml 1580.0 ml Output Total 570 ml 1270 ml Balance 1163.2 ml 310.0 ml Intake Free Water 150 ml IV Total 1043.2 ml 1000.0 ml Tube Feeding 540 ml 540 ml Other 40 ml Output Urine Total 570 ml 1270 ml # Bowel Movements 4 4 Laboratory Tests 05/18/17 04:55: White Blood Count 13.4H, Red Blood Count 2.73L, Hemoglobin 8.3L, Hematocrit 25.8L, Mean Corpuscular Volume 94, Mean Corpuscular Hemoglobin 30.4, Mean Corpuscular Hemoglobin Concent 32.2, Red Cell Distribution Width 15.8H, Platelet Count 594H, Mean Platelet Volume 5.1L, Neutrophils (%) (Auto) 65.2, Lymphocytes (%) (Auto) 17.1L, Monocytes (%) (Auto) 8.3, Eosinophils (%) (Auto) 8.6H, Basophils (%) (Auto) 0.7, Sodium Level 146H, Potassium Level 3.2L, Chloride Level 117H, Carbon Dioxide Level 21, Anion Gap 9, Blood Urea Nitrogen 3L, Creatinine 0.4L, Estimat Glomerular Filtration Rate , Glucose Level 152H, Calcium Level 6.8L, Phosphorus Level 2.0L, Magnesium Level 1.4L, Total Bilirubin 0.3, Aspartate Amino Transf (AST/SGOT) 7L, Alanine Aminotransferase ( ALT/SGPT) < 6L, Alkaline Phosphatase 47, Total Protein 5.2L, Albumin 1.5L, Globulin 3.7, Albumin/Globulin Ratio 0.4L 05/18/17 08:10: Arterial Blood pH 7.440, Arterial Blood Partial Pressure CO2 28.9L, Arterial Blood Partial Pressure O2 97.4, Arterial Blood HCO3 19.3L, Arterial Blood Oxygen Saturation 97.2, Arterial Blood Base Excess -4.0, Kelvin Test Positive Height (Feet): 5 Height (Inches): 4.00 Weight (Pounds): 172 General Appearance: no apparent distress Objective no other changes ALYSON FLANAGAN May 18, 2017 09:00
[2017-05-18] MEDS: Pantoprazole Inj IV SCH ×2 (09:30→20:24)
[2017-05-18] MEDS ORDERED: Potassium Phosphate 30 MM in NS 275 ML IV ONE (09:30)
[2017-05-18] MEDS: Vancomycin 750mg/NS 250ml 250 ML IVPB SCH ×2 (09:30→20:24)
[2017-05-18] MEDS: Phospha 250 Neutral tab NG SCH ×3 (09:31→17:22)
[2017-05-18] MEDS: Docusate 100mg/10ml Liq ORAL SCH ×2 (09:32→20:24)
--- NOTE | 2017-05-18 09:41 | Wound Nurse Progress Note ---
Wound RN Progress Note Wound Consult #1 Right big toe dry scab. Skin intact #2 Right 1st anterior toe DTI pressure ulcer. Skin intact #3 Left 2nd anterior toe DTI pressure ulcer. Skin intact #4 Left 3rd anterior toe DTI pressure ulcer. Skin intact #5 Left 4th anterior toe DTI pressure ulcer. Skin intact #6 Left 5th anterior toe DTI pressure ulcer. Skin intact #7 Sacrococcygeal extending to left buttock unstageable pressure ulcer. Still with 100% yellow slough adhered to the wound bed. will change treatment to Santyl daily and f/u with to see the progress. #8 Left lateral malleolus DTI pressure ulcer. Skin still intact #9 Left upper buttock area unstageable pressure ulcer. Still with 100% yellow slough adhered to the wound bed. will change treatment to Santyl daily and f/u with to see the progress. #10 Left lower back unstageable pressure ulcer. Still with 100% yellow slough adhered to the wound bed. will change treatment to Santyl daily and f/u with to see the progress. #11 Right buttock scattered stage II pressure ulcer. Good progress noted #12 IAD on perineal area extending up to mid back, left and right lower posterior thigh. Good progress noted #13 Left elbow unstageable pressure ulcer with black eschar adhered to wound bed. Still with 100% yellow slough adhered to the wound bed. will change treatment to Santyl daily and f/u with to see the progress. #14 Right elbow DTI pressure ulcer. skin still intact #15 Left ischial tuberosity stage II pressure ulcer. Good progress noted #16 Right ischial tuberosity stage II pressure ulcer. Good progress noted #17 Right posterior knee necrotic open wound. Etiology unknown. Still with 100% yellow slough adhered to the wound bed. will change treatment to Santyl daily and f/u with to see the progress. #18 Right heel DTI pressure ulcer. skin intact #19 Left heel DTI pressure ulcer. skin intact #20 Abdominal fold, left and right armpit lady rashes. Good progress noted #21 Left lateral lower leg DTI pressure ulcer. Skin intact Reassessed this Pt . No deterioration noted at this time. Will change wound care treatment on sites with necrotic tissue and will cont monitor. NILDA MEREDITH RN May 18, 2017 09:41
--- NOTE | 2017-05-18 10:52 | Pulmonolgy Critical Care Note ---
Critical Care - Asmt/Plan Problems: (1) Acute respiratory failure with hypoxia and hypercapnia (2) Acute encephalopathy (3) Sepsis (4) Aspiration pneumonia Respiratory: monitor respiratory rate, adjust FIO2, CXR, other - might need trach Cardiac: continue to monitor HR/BP Renal: F/U I&O, keep IV fluid Infectious Disease: check cultures Gastrointestinal: continue feedings/current rate Endocrine: monitor blood sugar, check HgA1C, continue sliding scale insulin Hematologic: monitor H/H, transfuse if hgb<8.5 Neurologic: PRN Ativan, PRN Morphine, keep patient comfortable Prophylaxis: Protonix, Heparin Notes Reviewed: neonatal nurse practitioner, cardio, renal Critical Care - Objective Last 24 Hour Vital Signs Date Time Temp Pulse Resp B/P (MAP) Pulse Ox O2 Delivery O2 Flow Rate FiO2 05/18/17 10:17 100 05/18/17 10:00 75 23 110/46 100 Mechanical Ventilator 40 05/18/17 09:32 73 05/18/17 09:30 110/46 05/18/17 09:22 73 23 40 05/18/17 09:00 75 24 120/53 100 Mechanical Ventilator 40 05/18/17 08:00 40 05/18/17 08:00 98.7 83 19 106/47 99 Mechanical Ventilator 40 05/18/17 08:00 81 05/18/17 07:29 84 29 40 05/18/17 07:00 79 24 122/53 99 Mechanical Ventilator 40 05/18/17 06:00 80 25 115/46 100 Mechanical Ventilator 40 05/18/17 05:31 77 120/35 05/18/17 05:14 81 28 40 05/18/17 05:00 81 26 120/35 100 Mechanical Ventilator 40 05/18/17 04:00 98.4 70 26 112/44 100 Mechanical Ventilator 40 05/18/17 04:00 40 05/18/17 03:46 80 05/18/17 03:05 83 25 40 05/18/17 03:00 89 32 127/77 100 Mechanical Ventilator 40 05/18/17 02:00 86 30 144/54 100 Mechanical Ventilator 40 05/18/17 01:03 86 29 40 05/18/17 01:00 86 29 112/47 98 Mechanical Ventilator 40 05/18/17 00:00 99.2 76 25 115/46 100 Mechanical Ventilator 40 05/18/17 00:00 40 1/18/18 23:57 73 118/43 05/17/17 23:31 67 05/17/17 23:00 75 23 120/38 100 Mechanical Ventilator 40 05/17/17 22:57 80 21 40 05/17/17 22:00 86 29 120/47 98 Mechanical Ventilator 40 05/17/17 21:15 84 29 40 05/17/17 21:00 68 20 101/43 99 Mechanical Ventilator 40 05/17/17 20:00 40 05/17/17 20:00 99.5 84 30 116/51 98 Mechanical Ventilator 40 05/17/17 19:24 75 26 40 05/17/17 19:20 69 05/17/17 19:00 73 19 105/39 98 Mechanical Ventilator 40 05/17/17 18:00 86 20 120/42 97 Mechanical Ventilator 40 05/17/17 17:48 78 104/31 05/17/17 17:00 82 20 104/31 100 Mechanical Ventilator 40 05/17/17 16:57 66 23 40 05/17/17 16:00 40 05/17/17 16:00 76 05/17/17 16:00 98.5 66 19 118/42 100 Mechanical Ventilator 40 05/17/17 15:00 76 20 118/46 100 Mechanical Ventilator 40 05/17/17 15:00 70 21 40 05/17/17 14:00 81 22 115/45 100 Mechanical Ventilator 40 05/17/17 13:15 81 32 40 05/17/17 13:00 73 28 118/46 100 Mechanical Ventilator 40 05/17/17 13:00 40 05/17/17 12:16 180 117/44 05/17/17 12:00 96 05/17/17 12:00 98.6 94 34 116/44 96 Mechanical Ventilator 40 05/17/17 11:30 85 32 40 05/17/17 11:00 83 30 117/51 96 Mechanical Ventilator 40 Status: awake Condition: critical HEENT: atraumatic Lungs: chest wall tender Heart: HR/BP stable, regular Abdomen: soft, active bowel sounds, feeding tube Extremities: no C/C/E, edema Decubiti: stage Micro: Microbiology Date/Time Source Procedure Growth Status 05/15/17 18:00 Stool Clostridium difficile Toxin Assay - Final Complete 05/17/17 13:00 Indwelling Cath Urine Culture - Preliminary Resulted Critical Care - Subjective ROS Limited/Unobtainable: No Interval Events: didn't tolerate weaning yesterday Condition: critical EKG Rhythm: Sinus Rhythm FI02: 40 Vent Support Breath Rate: 14 Vent Support Mode: IMV/SIMV Vent Tidal Volume: 500 Sputum Amount: Small PEEP: 0.0 PIP: 26 Tube Feeding Amount: 45 I&O: Intake and Output 05/17/17 05/18/17 19:00 07:00 Intake Total 1733.2 ml 1580.0 ml Output Total 570 ml 1270 ml Balance 1163.2 ml 310.0 ml Intake Free Water 150 ml IV Total 1043.2 ml 1000.0 ml Tube Feeding 540 ml 540 ml Other 40 ml Output Urine Total 570 ml 1270 ml # Bowel Movements 4 4 CXR: no changes ET-Tube: 7.5 ET Position: 23 Labs: Laboratory Tests Test 05/18/17 04:55 05/18/17 08:10 White Blood Count 13.4 K/UL (4.8-10.8) H Red Blood Count 2.73 M/UL (4.20-5.40) L Hemoglobin 8.3 G/DL (12.0-16.0) L Hematocrit 25.8 % (37.0-47.0) L Mean Corpuscular Volume 94 FL (80-99) Mean Corpuscular Hemoglobin 30.4 PG (27.0-31.0) Mean Corpuscular Hemoglobin Concent 32.2 G/DL (32.0-36.0) Red Cell Distribution Width 15.8 % (11.6-14.8) H Platelet Count 594 K/UL (150-450) H Mean Platelet Volume 5.1 FL (6.5-10.1) L Neutrophils (%) (Auto) 65.2 % (45.0-75.0) Lymphocytes (%) (Auto) 17.1 % (20.0-45.0) L Monocytes (%) (Auto) 8.3 % (1.0-10.0) Eosinophils (%) (Auto) 8.6 % (0.0-3.0) H Basophils (%) (Auto) 0.7 % (0.0-2.0) Sodium Level 146 MMOL/L (136-145) H Potassium Level 3.2 MMOL/L (3.5-5.1) L Chloride Level 117 MMOL/L (98-107) H Carbon Dioxide Level 21 MMOL/L (21-32) Anion Gap 9 mmol/L (5-15) Blood Urea Nitrogen 3 mg/dL (7-18) L Creatinine 0.4 MG/DL (0.55-1.30) L Estimat Glomerular Filtration Rate mL/min (>60) Glucose Level 152 MG/DL (74-106) H Calcium Level 6.8 MG/DL (8.5-10.1) L Phosphorus Level 2.0 MG/DL (2.5-4.9) L Magnesium Level 1.4 MG/DL (1.8-2.4) L Total Bilirubin 0.3 MG/DL (0.2-1.0) Aspartate Amino Transf (AST/SGOT) 7 U/L (15-37) L Alanine Aminotransferase (ALT/SGPT) < 6 U/L (12-78) L Alkaline Phosphatase 47 U/L (46-116) Total Protein 5.2 G/DL (6.4-8.2) L Albumin 1.5 G/DL (3.4-5.0) L Globulin 3.7 g/dL Albumin/Globulin Ratio 0.4 (1.0-2.7) L Arterial Blood pH 7.440 (7.350-7.450) Arterial Blood Partial Pressure CO2 28.9 mmHg (35.0-45.0) L Arterial Blood Partial Pressure O2 97.4 mmHg (75.0-100.0) Arterial Blood HCO3 19.3 mmol/L (22.0-26.0) L Arterial Blood Oxygen Saturation 97.2 % (92.0-98.0) Arterial Blood Base Excess -4.0 Kelvin Test Positive DWAYNE CHERY May 18, 2017 10:52
--- NOTE | 2017-05-18 12:47 | Diagnostic Imaging Report ---
Indication: Dyspnea Technique: XRAY Chest 1v Comparison: 05/17/2018 Findings: ET tube and left subclavian line unchanged in position. Heart size and mediastinal contours are stable. Persistent interstitial/opacification. There are patchy perihilar airspace opacities with increasing opacities in the right midlung and left base. There are small bilateral pleural effusions. No pneumothorax. There is osteopenia, scoliosis and degenerative change of the spine. Evidence of prior kyphoplasty/vertebroplasty. Impression: Interval worsening of aeration with increasing right midlung and left basilar opacities.
--- NOTE | 2017-05-18 12:51 | General Progress Note ---
Assessment/Plan Problem List: (1) SVT (supraventricular tachycardia) ICD Codes: I47.1 - SVT (supraventricular tachycardia) SNOMED: 8816694 (2) Septic shock ICD Codes: A41.9 - Sepsis, unspecified organism; R65.21 - Severe sepsis with septic shock SNOMED: 41816722 (3) Acute respiratory failure with hypoxia and hypercapnia ICD Codes: J96.01 - Acute respiratory failure with hypoxia; J96.02 - Acute respiratory failure with hypercapnia SNOMED: 98994863, 76348089, 361213426 (4) Aspiration pneumonia ICD Codes: J69.0 - Pneumonitis due to inhalation of food and vomit SNOMED: 128089044 Qualifiers: Qualified Codes: J69.0 - Pneumonitis due to inhalation of food and vomit (5) Toxic metabolic encephalopathy ICD Codes: G92 - Toxic encephalopathy SNOMED: 197079331 (6) JUJU (acute kidney injury) ICD Codes: N17.9 - Acute kidney failure, unspecified SNOMED: 10045372 (7) Hyponatremia ICD Codes: E87.1 - Hyponatremia SNOMED: 47046258 (8) Hyperkalemia ICD Codes: E87.5 - Hyperkalemia SNOMED: 41707473 (9) Seizure disorder ICD Codes: G40.909 - Epilepsy, unspecified, not intractable, without status epilepticus SNOMED: 456141240 (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 (11) Dementia ICD Codes: F03.90 - Dementia SNOMED: 98638291 (12) S/P percutaneous endoscopic gastrostomy (PEG) tube placement ICD Codes: Z93.1 - Gastrostomy status SNOMED: 316442810 (13) Hypercalcemia ICD Codes: E83.52 - Hypercalcemia SNOMED: 28880042 (14) Hypophosphatemia ICD Codes: E83.39 - Other disorders of phosphorus metabolism SNOMED: 4559440 (15) Hypomagnesemia ICD Codes: E83.42 - Hypomagnesemia SNOMED: 558133958 (16) Hypokalemia ICD Codes: E87.6 - Hypokalemia SNOMED: 30605250 Status: stable Assessment/Plan Cont ICU care Pulm consulted Cont on vent and wean as tolerated Daily SBTs Now off pressors Cardiology consulted given SVT Digoxin and Diltiazem added ID consulted Cont broad-spectrum abx: vanco, zosyn; cipro added for double pseudomonas coverage s/p flagyl (C. diff neg) F/u cultures Trend CBC Trend ABG Monitor CXR Renal consulted s/p IVFs Replete lytes Trend BMP Cont tube feeds via PEG Cont home meds including Depakote Eliquis on hold Pain control, supportive care, bowel regimen D/w daughter regarding need for tracheostomy and she is now agreeable to proceed. Surgery consulted w/ likely plan for procedure on 05/21 DVT ppx: SCDs, HSQ GI ppx: PPI Dispo: pending further stabilization, cont ICU care FULL CODE per discussion w/ daughter At the time of my involvement, the patient's condition was critical with high potential for and/or physiologic deterioration secondary to acute respiratory failure 2/2 aspiration pneumonia, sepsis, acute encephalopathy as delineated in the note above. On the above date of service, I spent a total of 36 minutes in the ICU evaluating, managing, and providing critical care services to this patient, including time spent documenting these activities, counseling patient/family, and coordinating care. Critical care services performed include: Telemetry Review Hemodynamic measurement interpretation Laboratory data review and interpretation Ventilator setting review, management, and adjustment Discussion of care plans with patient, family, and/or surrogate decision makers Discussion of patient's care with primary medical team, surgical team, and/or consulting service Decision to obtain further radiologic evaluation, after consideration of risk/ benefit ratio Decision to perform invasive procedure, after consideration of risk/benefit ratio Review of most recent microbiology results with assessment and modification of antimicrobial coverage Discussion of patient's code status and further advancement towards the ultimate goals of care Plan outlined above discussed with patient/family, COMPUTER NETWORKER, 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 D/w pulm re weaning Dw cardiology re SVT D/w pt's daughter regarding plan of care, need for tracheostomy D/w ID re abx D/w surgery re tracheostomy Time of note may not reflect time of encounter Subjective Date patient seen: May 18, 2017 Time patient seen: 12:51 ROS Limited/Unobtainable: Yes Allergies: Coded Allergies: NO KNOWN DRUG ALLERGIES (Unverified Allergy, Unknown, 07/29/14) Subjective No acute o/n events Now off pressors Has failed multiple SBTs. Currenty on SIMV. Discussed with daughter regarding need for tracheostomy--she is hesitant but is agreeable to proceeding if absolutely necessary and if it can be reversed at some point. Pt intubated, sedated but arousable to voice Unable to obtain ROS as pt sedated and also w/ dementia Objective Last 24 Hour Vital Signs Date Time Temp Pulse Resp B/P (MAP) Pulse Ox O2 Delivery O2 Flow Rate FiO2 05/18/17 12:27 82 144/64 05/18/17 12:00 98.6 81 27 144/64 100 Mechanical Ventilator 40 05/18/17 12:00 40 05/18/17 12:00 89 05/18/17 11:29 88 3 40 05/18/17 11:00 84 31 139/53 100 Mechanical Ventilator 40 05/18/17 10:17 100 05/18/17 10:00 75 23 110/46 100 Mechanical Ventilator 40 05/18/17 09:32 73 05/18/17 09:30 110/46 05/18/17 09:22 73 23 40 05/18/17 09:00 75 24 120/53 100 Mechanical Ventilator 40 05/18/17 08:00 40 05/18/17 08:00 98.7 83 19 106/47 99 Mechanical Ventilator 40 05/18/17 08:00 81 05/18/17 07:29 84 29 40 05/18/17 07:00 79 24 122/53 99 Mechanical Ventilator 40 05/18/17 06:00 80 25 115/46 100 Mechanical Ventilator 40 05/18/17 05:31 77 120/35 05/18/17 05:14 81 28 40 05/18/17 05:00 81 26 120/35 100 Mechanical Ventilator 40 05/18/17 04:00 98.4 70 26 112/44 100 Mechanical Ventilator 40 05/18/17 04:00 40 05/18/17 03:46 80 05/18/17 03:05 83 25 40 05/18/17 03:00 89 32 127/77 100 Mechanical Ventilator 40 05/18/17 02:00 86 30 144/54 100 Mechanical Ventilator 40 05/18/17 01:03 86 29 40 05/18/17 01:00 86 29 112/47 98 Mechanical Ventilator 40 05/18/17 00:00 99.2 76 25 115/46 100 Mechanical Ventilator 40 05/18/17 00:00 40 05/17/17 23:57 73 118/43 05/17/17 23:31 67 05/17/17 23:00 75 23 120/38 100 Mechanical Ventilator 40 05/17/17 22:57 80 21 40 05/17/17 22:00 86 29 120/47 98 Mechanical Ventilator 40 05/17/17 21:15 84 29 40 05/17/17 21:00 68 20 101/43 99 Mechanical Ventilator 40 05/17/17 20:00 40 05/17/17 20:00 99.5 84 30 116/51 98 Mechanical Ventilator 40 05/17/17 19:24 75 26 40 05/17/17 19:20 69 05/17/17 19:00 73 19 105/39 98 Mechanical Ventilator 40 05/17/17 18:00 86 20 120/42 97 Mechanical Ventilator 40 05/17/17 17:48 78 104/31 05/17/17 17:00 82 20 104/31 100 Mechanical Ventilator 40 05/17/17 16:57 66 23 40 05/17/17 16:00 40 05/17/17 16:00 76 05/17/17 16:00 98.5 66 19 118/42 100 Mechanical Ventilator 40 05/17/17 15:00 76 20 118/46 100 Mechanical Ventilator 40 05/17/17 15:00 70 21 40 05/17/17 14:00 81 22 115/45 100 Mechanical Ventilator 40 05/17/17 13:15 81 32 40 05/17/17 13:00 73 28 118/46 100 Mechanical Ventilator 40 05/17/17 13:00 40 Intake and Output 05/17/17 05/18/17 19:00 07:00 Intake Total 1733.2 ml 1580.0 ml Output Total 570 ml 1270 ml Balance 1163.2 ml 310.0 ml Intake Free Water 150 ml IV Total 1043.2 ml 1000.0 ml Tube Feeding 540 ml 540 ml Other 40 ml Output Urine Total 570 ml 1270 ml # Bowel Movements 4 4 Laboratory Tests 05/18/17 04:55: White Blood Count 13.4H, Red Blood Count 2.73L, Hemoglobin 8.3L, Hematocrit 25.8L, Mean Corpuscular Volume 94, Mean Corpuscular Hemoglobin 30.4, Mean Corpuscular Hemoglobin Concent 32.2, Red Cell Distribution Width 15.8H, Platelet Count 594H, Mean Platelet Volume 5.1L, Neutrophils (%) (Auto) 65.2, Lymphocytes (%) (Auto) 17.1L, Monocytes (%) (Auto) 8.3, Eosinophils (%) (Auto) 8.6H, Basophils (%) (Auto) 0.7, Sodium Level 146H, Potassium Level 3.2L, Chloride Level 117H, Carbon Dioxide Level 21, Anion Gap 9, Blood Urea Nitrogen 3L, Creatinine 0.4L, Estimat Glomerular Filtration Rate , Glucose Level 152H, Calcium Level 6.8L, Phosphorus Level 2.0L, Magnesium Level 1.4L, Total Bilirubin 0.3, Aspartate Amino Transf (AST/SGOT) 7L, Alanine Aminotransferase ( ALT/SGPT) < 6L, Alkaline Phosphatase 47, Total Protein 5.2L, Albumin 1.5L, Globulin 3.7, Albumin/Globulin Ratio 0.4L 05/18/17 08:10: Arterial Blood pH 7.440, Arterial Blood Partial Pressure CO2 28.9L, Arterial Blood Partial Pressure O2 97.4, Arterial Blood HCO3 19.3L, Arterial Blood Oxygen Saturation 97.2, Arterial Blood Base Excess -4.0, Kelvin Test Positive Height (Feet): 5 Height (Inches): 4.00 Weight (Pounds): 172 Objective General: intubated, sedated, arousable to voice Head: normocephalic, without obvious abnormality, atraumatic Eyes: conjunctivae/corneas clear. PERRL, EOM's intact Throat: lips, mucosa, and tongue normal. MMM Neck: supple, symmetrical, trachea midline, and no JVD Lungs: +rhonchi b/l Heart: regular rate and rhythm, S1, S2 normal, no murmur, click, rub or gallop Abdomen: soft, non-tender, non-distended, bowel sounds normal; Extremities: extremities normal, atraumatic, no cyanosis, +BLE edema Pulses: 2+ and symmetric Skin: skin color, texture, turgor normal; no rashes or lesions Neurologic: moving all extremities Prachi Mejia M.D. May 18, 2017 12:51
--- NOTE | 2017-05-18 13:41 | Cardiac Electrophysiology PN ---
Assessment/Plan Assessment/Plan 1. Recurrent episodes of supraventricular tachycardia. Continue Cardizem and digoxin . In the absence of P-wave morphology, this looks like atrioventricular deonte reentrant tachycardia. 2. Respiratory failure, on the ventilator, likely due to underlying sepsis and pneumonia. 3. Status post septic shock. 4. Toxic encephalopathy. 5. Acute renal failure that has resolved. 6. Seizure disorder. 7. Deep venous thrombosis and pulmonary embolism. 8. Dementia. 9. Status post percutaneous endoscopic gastrostomy placement. JASON RN Subjective Subjective More alert. Intubated in ICU on Vent. No arrhythmias reported. Objective Last 24 Hour Vital Signs Date Time Temp Pulse Resp B/P (MAP) Pulse Ox O2 Delivery O2 Flow Rate FiO2 05/18/17 12:27 82 144/64 05/18/17 12:00 98.6 81 27 144/64 100 Mechanical Ventilator 40 05/18/17 12:00 40 05/18/17 12:00 89 05/18/17 11:29 88 3 40 05/18/17 11:00 84 31 139/53 100 Mechanical Ventilator 40 05/18/17 10:17 100 05/18/17 10:00 75 23 110/46 100 Mechanical Ventilator 40 05/18/17 09:32 73 05/18/17 09:30 110/46 05/18/17 09:22 73 23 40 05/18/17 09:00 75 24 120/53 100 Mechanical Ventilator 40 05/18/17 08:00 40 05/18/17 08:00 98.7 83 19 106/47 99 Mechanical Ventilator 40 05/18/17 08:00 81 05/18/17 07:29 84 29 40 05/18/17 07:00 79 24 122/53 99 Mechanical Ventilator 40 05/18/17 06:00 80 25 115/46 100 Mechanical Ventilator 40 05/18/17 05:31 77 120/35 05/18/17 05:14 81 28 40 05/18/17 05:00 81 26 120/35 100 Mechanical Ventilator 40 05/18/17 04:00 98.4 70 26 112/44 100 Mechanical Ventilator 40 05/18/17 04:00 40 05/18/17 03:46 80 05/18/17 03:05 83 25 40 05/18/17 03:00 89 32 127/77 100 Mechanical Ventilator 40 05/18/17 02:00 86 30 144/54 100 Mechanical Ventilator 40 05/18/17 01:03 86 29 40 05/18/17 01:00 86 29 112/47 98 Mechanical Ventilator 40 05/18/17 00:00 99.2 76 25 115/46 100 Mechanical Ventilator 40 05/18/17 00:00 40 05/17/17 23:57 73 118/43 05/17/17 23:31 67 05/17/17 23:00 75 23 120/38 100 Mechanical Ventilator 40 05/17/17 22:57 80 21 40 05/17/17 22:00 86 29 120/47 98 Mechanical Ventilator 40 05/17/17 21:15 84 29 40 05/17/17 21:00 68 20 101/43 99 Mechanical Ventilator 40 05/17/17 20:00 40 05/17/17 20:00 99.5 84 30 116/51 98 Mechanical Ventilator 40 05/17/17 19:24 75 26 40 05/17/17 19:20 69 05/17/17 19:00 73 19 105/39 98 Mechanical Ventilator 40 05/17/17 18:00 86 20 120/42 97 Mechanical Ventilator 40 05/17/17 17:48 78 104/31 05/17/17 17:00 82 20 104/31 100 Mechanical Ventilator 40 05/17/17 16:57 66 23 40 05/17/17 16:00 40 05/17/17 16:00 76 05/17/17 16:00 98.5 66 19 118/42 100 Mechanical Ventilator 40 05/17/17 15:00 76 20 118/46 100 Mechanical Ventilator 40 05/17/17 15:00 70 21 40 05/17/17 14:00 81 22 115/45 100 Mechanical Ventilator 40 Intake and Output 05/17/17 05/18/17 19:00 07:00 Intake Total 1733.2 ml 1580.0 ml Output Total 570 ml 1270 ml Balance 1163.2 ml 310.0 ml Intake Free Water 150 ml IV Total 1043.2 ml 1000.0 ml Tube Feeding 540 ml 540 ml Other 40 ml Output Urine Total 570 ml 1270 ml # Bowel Movements 4 4 Laboratory Tests Test 05/18/17 04:55 05/18/17 08:10 White Blood Count 13.4 K/UL (4.8-10.8) H Red Blood Count 2.73 M/UL (4.20-5.40) L Hemoglobin 8.3 G/DL (12.0-16.0) L Hematocrit 25.8 % (37.0-47.0) L Mean Corpuscular Volume 94 FL (80-99) Mean Corpuscular Hemoglobin 30.4 PG (27.0-31.0) Mean Corpuscular Hemoglobin Concent 32.2 G/DL (32.0-36.0) Red Cell Distribution Width 15.8 % (11.6-14.8) H Platelet Count 594 K/UL (150-450) H Mean Platelet Volume 5.1 FL (6.5-10.1) L Neutrophils (%) (Auto) 65.2 % (45.0-75.0) Lymphocytes (%) (Auto) 17.1 % (20.0-45.0) L Monocytes (%) (Auto) 8.3 % (1.0-10.0) Eosinophils (%) (Auto) 8.6 % (0.0-3.0) H Basophils (%) (Auto) 0.7 % (0.0-2.0) Sodium Level 146 MMOL/L (136-145) H Potassium Level 3.2 MMOL/L (3.5-5.1) L Chloride Level 117 MMOL/L (98-107) H Carbon Dioxide Level 21 MMOL/L (21-32) Anion Gap 9 mmol/L (5-15) Blood Urea Nitrogen 3 mg/dL (7-18) L Creatinine 0.4 MG/DL (0.55-1.30) L Estimat Glomerular Filtration Rate mL/min (>60) Glucose Level 152 MG/DL (74-106) H Calcium Level 6.8 MG/DL (8.5-10.1) L Phosphorus Level 2.0 MG/DL (2.5-4.9) L Magnesium Level 1.4 MG/DL (1.8-2.4) L Total Bilirubin 0.3 MG/DL (0.2-1.0) Aspartate Amino Transf (AST/SGOT) 7 U/L (15-37) L Alanine Aminotransferase (ALT/SGPT) < 6 U/L (12-78) L Alkaline Phosphatase 47 U/L (46-116) Total Protein 5.2 G/DL (6.4-8.2) L Albumin 1.5 G/DL (3.4-5.0) L Globulin 3.7 g/dL Albumin/Globulin Ratio 0.4 (1.0-2.7) L Arterial Blood pH 7.440 (7.350-7.450) Arterial Blood Partial Pressure CO2 28.9 mmHg (35.0-45.0) L Arterial Blood Partial Pressure O2 97.4 mmHg (75.0-100.0) Arterial Blood HCO3 19.3 mmol/L (22.0-26.0) L Arterial Blood Oxygen Saturation 97.2 % (92.0-98.0) Arterial Blood Base Excess -4.0 Kelvin Test Positive Microbiology Date/Time Source Procedure Growth Status 05/15/17 18:00 Stool Clostridium difficile Toxin Assay - Final Complete 05/17/17 13:00 Indwelling Cath Urine Culture - Preliminary Resulted Objective HEAD AND NECK: She is orally intubated with no JVD. LUNGS: Coarse rhonchi. CARDIOVASCULAR: Regular S1 and S2 with no gallop. ABDOMEN: Soft and nontender. EXTREMITIES: No pitting edema. MALLORY BROWN May 18, 2017 13:41
--- NOTE | 2017-05-18 17:40 | Infectious Diseases Prog Note ---
Assessment/Plan Assessment/Plan ASSESSMENT AND PLAN: 1. - sepsis, shock, acinetobacter pna/pseudomonas pna, ? pseudomonas sacral wound infection, vent, ? c.diff., leukocytosis, fevers, sirs, bc/uc/influenza negative, vent - chest x-ray worse, leukocytosis better, c.diff. negative - change abx to meropenem, vancomycin and amikacin - lotrimin for possible fungal rash - check sc, labs, chest x-ray - no pressors - skin care per protocol - plan on trach per RN - icu and vent care - d/w Daughter 2. respiratory failure, on vent, icu care 3. Acute kidney injury, elevated creatinine. 4. Hypertension. 5. Diabetes. 6. Asthma. 7. Alzheimer's with some dementia. 8. Cerebrovascular accident. 9. Aspiration risk. 10. Anemia. 11. Seizures. 12. Memory loss. 13. Past medical history as noted. 14. No allergy. 15. Social history is negative. 16. Family history noncontributory. 17. Case discussed with RN. 18. MAR was noted. 19. Continue treatment per primary consultants. 20. Skin care protocol. 21. Possible fungal rash. Continue cream. 22. Questionable drug rash. 23. Continue supportive care. 24. Critical condition. 25. Notes were reviewed. Subjective Constitutional: Reports: fatigue, other - intubated, on vent, Denies: fever HEENT: Reports: congestion Respiratory: Reports: shortness of breath Cardiovascular: Reports: other - no pressors, Denies: chest pain Gastrointestinal/Abdominal: Reports: other, Denies: nausea, vomiting, diarrhea Genitourinary: Reports: other - + cota Neurologic: Denies: headache Psychiatric: Denies: depression Skin: Denies: rash Hematologic: Denies: bleeding Musculoskeletal: Denies: pain Allergies: Coded Allergies: NO KNOWN DRUG ALLERGIES (Unverified Allergy, Unknown, 07/29/14) Objective Vital Signs Last 24 Hour Vital Signs Date Time Temp Pulse Resp B/P (MAP) Pulse Ox O2 Delivery O2 Flow Rate FiO2 05/18/17 17:22 77 122/53 05/18/17 17:00 78 19 122/53 100 Mechanical Ventilator 40 05/18/17 16:56 73 27 40 05/18/17 16:00 98.8 75 24 114/45 100 Mechanical Ventilator 40 05/18/17 16:00 40 18 15:52 77 05/18/18 15:25 82 23 40 18 15:00 76 26 122/58 99 Mechanical Ventilator 40 05/18/17 14:00 84 26 119/50 99 Mechanical Ventilator 40 18 13:25 90 34 40 18 13:00 85 31 155/63 98 Mechanical Ventilator 40 18 12:27 82 144/64 05/18/17 12:00 98.6 81 27 144/64 100 Mechanical Ventilator 40 18 12:00 40 18 12:00 89 05/18/17 11:29 88 3 40 05/18/17 11:00 84 31 139/53 100 Mechanical Ventilator 40 05/18/17 10:17 100 05/18/17 10:00 75 23 110/46 100 Mechanical Ventilator 40 05/18/17 09:32 73 05/18/17 09:30 110/46 05/18/17 09:22 73 23 40 05/18/17 09:00 75 24 120/53 100 Mechanical Ventilator 40 05/18/17 08:00 40 05/18/17 08:00 98.7 83 19 106/47 99 Mechanical Ventilator 40 05/18/17 08:00 81 05/18/17 07:29 84 29 40 05/18/17 07:00 79 24 122/53 99 Mechanical Ventilator 40 05/18/17 06:00 80 25 115/46 100 Mechanical Ventilator 40 05/18/17 05:31 77 120/35 05/18/17 05:14 81 28 40 05/18/17 05:00 81 26 120/35 100 Mechanical Ventilator 40 05/18/17 04:00 98.4 70 26 112/44 100 Mechanical Ventilator 40 05/18/17 04:00 40 18 03:46 80 18 03:05 83 25 40 18 03:00 89 32 127/77 100 Mechanical Ventilator 40 05/18/17 02:00 86 30 144/54 100 Mechanical Ventilator 40 18 01:03 86 29 40 05/18/17 01:00 86 29 112/47 98 Mechanical Ventilator 40 05/18/17 00:00 99.2 76 25 115/46 100 Mechanical Ventilator 40 05/18/17 00:00 40 05/17/17 23:57 73 118/43 05/17/17 23:31 67 05/17/17 23:00 75 23 120/38 100 Mechanical Ventilator 40 05/17/17 22:57 80 21 40 05/17/17 22:00 86 29 120/47 98 Mechanical Ventilator 40 05/17/17 21:15 84 29 40 05/17/17 21:00 68 20 101/43 99 Mechanical Ventilator 40 05/17/17 20:00 40 05/17/17 20:00 99.5 84 30 116/51 98 Mechanical Ventilator 40 05/17/17 19:24 75 26 40 05/17/17 19:20 69 05/17/17 19:00 73 19 105/39 98 Mechanical Ventilator 40 05/17/17 18:00 86 20 120/42 97 Mechanical Ventilator 40 05/17/17 17:48 78 104/31 Height (Feet): 5 Height (Inches): 4.00 Weight (Pounds): 172 General Appearance: no acute distress, other - alert and responsive HEENT: normocephalic, atraumatic, anicteric, EOMI, no JVD, other - oral - intubated Respiratory/Chest: crackles/rales, rhonchi - bilaterally Cardiovascular: normal rate, regular rhythm, regularly irregular, no JVD Abdomen: normal bowel sounds, soft, non tender, no organomegaly Genitourinary: other - + cota - urine cloudy Extremities: no cyanosis Skin: no rash Neurologic/Psychiatric: emergency department aide II-XII grossly normal, alert, responsive Lymphatic: no neck adenopathy Musculoskeletal: no effusion Objective 05/12 - chest x-ray - Findings: ET tube and left subclavian central line unchanged in position. Heart size and mediastinal contours are stable. Persistent interstitial opacification/ edema and patchy bilateral airspace opacities with small right pleural effusion. Interval development of a small left lateral pleural effusion and increased left base/retrocardiac opacities. No pneumothorax.. Gastrostomy tube partially visualized. Impression: Slight interval worsening of aeration with development of small left pleural effusion and increasing left basilar atelectasis/consolidation. Support lines and tubes unchanged 05/14 - chest x-ray: Impression: Interstitial and patchy bilateral airspace opacities with continued improved aeration of the right base compared to the prior exam. Support lines/tubes unchanged in position. 05/16 - chest x-ray - no change (report noted) 05/18 - chest x-ray - Impression: Interval worsening of aeration with increasing right midlung and left basilar opacities. Microbiology Date/Time Source Procedure Growth Status 05/09/17 20:10 Blood Blood Culture - Final NO GROWTH AFTER 5 DAYS Complete 05/12/17 14:12 Sputum Gram Stain - Final Complete 05/12/17 14:12 Sputum Culture - Final Acinetobacter Baumanii Pseudomonas Aeruginosa Complete 05/15/17 18:00 Stool Clostridium difficile Toxin Assay - Final Complete 05/17/17 13:00 Indwelling Cath Urine Culture - Preliminary Resulted 05/10/17 10:00 Sacral Wound Gram Stain - Final Complete 05/10/17 10:00 Wound Culture - Final Pseudomonas Aeruginosa Zaria Albicans Usual Skin Beckie Complete Microbiology Date/Time Source Procedure Growth Status 05/15/17 18:00 Stool Clostridium difficile Toxin Assay - Final Complete 05/17/17 13:00 Indwelling Cath Urine Culture - Preliminary Resulted Laboratory Tests Test 05/18/17 04:55 05/18/17 08:10 White Blood Count 13.4 K/UL (4.8-10.8) H Red Blood Count 2.73 M/UL (4.20-5.40) L Hemoglobin 8.3 G/DL (12.0-16.0) L Hematocrit 25.8 % (37.0-47.0) L Mean Corpuscular Volume 94 FL (80-99) Mean Corpuscular Hemoglobin 30.4 PG (27.0-31.0) Mean Corpuscular Hemoglobin Concent 32.2 G/DL (32.0-36.0) Red Cell Distribution Width 15.8 % (11.6-14.8) H Platelet Count 594 K/UL (150-450) H Mean Platelet Volume 5.1 FL (6.5-10.1) L Neutrophils (%) (Auto) 65.2 % (45.0-75.0) Lymphocytes (%) (Auto) 17.1 % (20.0-45.0) L Monocytes (%) (Auto) 8.3 % (1.0-10.0) Eosinophils (%) (Auto) 8.6 % (0.0-3.0) H Basophils (%) (Auto) 0.7 % (0.0-2.0) Sodium Level 146 MMOL/L (136-145) H Potassium Level 3.2 MMOL/L (3.5-5.1) L Chloride Level 117 MMOL/L (98-107) H Carbon Dioxide Level 21 MMOL/L (21-32) Anion Gap 9 mmol/L (5-15) Blood Urea Nitrogen 3 mg/dL (7-18) L Creatinine 0.4 MG/DL (0.55-1.30) L Estimat Glomerular Filtration Rate mL/min (>60) Glucose Level 152 MG/DL (74-106) H Calcium Level 6.8 MG/DL (8.5-10.1) L Phosphorus Level 2.0 MG/DL (2.5-4.9) L Magnesium Level 1.4 MG/DL (1.8-2.4) L Total Bilirubin 0.3 MG/DL (0.2-1.0) Aspartate Amino Transf (AST/SGOT) 7 U/L (15-37) L Alanine Aminotransferase (ALT/SGPT) < 6 U/L (12-78) L Alkaline Phosphatase 47 U/L (46-116) Total Protein 5.2 G/DL (6.4-8.2) L Albumin 1.5 G/DL (3.4-5.0) L Globulin 3.7 g/dL Albumin/Globulin Ratio 0.4 (1.0-2.7) L Arterial Blood pH 7.440 (7.350-7.450) Arterial Blood Partial Pressure CO2 28.9 mmHg (35.0-45.0) L Arterial Blood Partial Pressure O2 97.4 mmHg (75.0-100.0) Arterial Blood HCO3 19.3 mmol/L (22.0-26.0) L Arterial Blood Oxygen Saturation 97.2 % (92.0-98.0) Arterial Blood Base Excess -4.0 Kelvin Test Positive Current Medications Medications (Trade) Dose Ordered Sig/Jacque Route PRN Reason Start Time Stop Time Status Last Admin Dose Admin Acetaminophen (Tylenol) 650 mg Q4H PRN GT Mild Pain/Temp > 100.5 05/17/17 12:00 06/16/17 11:59 Acetaminophen/ Hydrocodone Bitart ([place] 10/325) 1 tab Q4H PRN GT Moderate to Severe Pain 05/17/17 17:00 05/24/17 16:59 Albuterol/ Ipratropium (Albuterol/ Ipratropium) 3 ml Q6HR PRN HHN Shortness of Breath 05/15/17 12:45 05/20/17 12:44 Bisacodyl (Dulcolax) 10 mg DAILYPRN PRN RECTAL Constipation 05/10/17 01:45 06/09/17 01:44 Chlorhexidine Gluconate (Laly-Hex 2%) 1 applic DAILY@1999 TOPIC 05/13/17 20:00 06/12/17 19:59 05/17/17 19:45 Ciprofloxacin 100 ml @ 100 mls/hr Q12HR@1100,2300 IV 05/16/17 23:00 05/23/17 22:59 05/18/17 12:26 Clotrimazole (Lotrimin) 1 applic EVERY 12 HOURS TOPIC 05/10/17 15:00 06/09/17 14:59 05/18/17 09:32 Collagenase (Santyl) 1 applic DAILY TOPIC 05/18/17 09:00 06/17/17 08:59 05/18/17 15:12 Collagenase (Santyl) 1 applic PRN PRN TOPIC soilage 05/17/17 23:15 06/16/17 23:14 Dextrose (Dextrose 50%) STAT PRN IV Hypoglycemia 05/10/17 01:45 06/09/17 01:44 Digoxin (Lanoxin) 0.25 mg DAILY ORAL 05/18/17 09:00 06/17/17 08:59 05/18/17 09:32 Diltiazem HCl (Cardizem) 10 mg Q1HR PRN IVP Heart rate greater than 120. 05/14/17 19:30 06/13/17 19:29 05/17/17 12:16 Diltiazem HCl (Cardizem) 30 mg EVERY 6 HOURS ORAL 05/17/17 18:00 06/16/17 17:59 05/18/17 17:22 Docusate Sodium (Colace) 100 mg EVERY 12 HOURS ORAL 05/11/17 10:00 06/10/17 09:59 05/18/17 09:32 Heparin Sodium (Porcine) (Heparin 5000 units/ml) 5,000 units EVERY 12 HOURS SUBQ 05/10/17 09:00 06/09/17 08:59 05/17/17 20:34 Norepinephrine Bitartrate 8 mg/ Dextrose 254 ml @ 0 mls/hr Q24H IV 05/10/17 09:30 06/09/17 05:59 05/11/17 11:34 Ondansetron HCl (Zofran) 4 mg Q6H PRN IVP Nausea & Vomiting 05/10/17 01:45 06/09/17 01:44 Pantoprazole (Protonix) 40 mg Q12HR IV 05/10/17 21:00 06/09/17 20:59 05/18/17 09:30 Phosphorus (Phospha 250 Neutral) 500 mg THREE TIMES A DAY NG 05/16/17 13:00 06/15/17 12:59 05/18/17 17:22 Piperacillin Sod/ Tazobactam Sod 3.375 gm/Sodium Chloride 110 ml @ 27.5 mls/hr EVERY 8 HOURS IVPB 05/14/17 11:00 05/19/17 10:59 05/18/17 15:13 Polyethylene Glycol (Miralax) 17 gm DAILYPRN PRN ORAL Constipation 05/10/17 01:45 06/09/17 01:44 Vancomycin HCl (Vanco rx to dose) 1 ea DAILY PRN MISC Per rx protocol 05/10/17 01:45 06/09/17 01:44 Vancomycin/Sodium Chloride 250 ml @ 166.667 mls/hr Q12HR IVPB 05/16/17 21:00 05/21/17 23:59 05/18/17 09:30 TIERA PRADO May 18, 2017 17:40
[2017-05-18] MEDS ORDERED: Amikacin Rx to dose MISC PRN (17:45)
[2017-05-18] MEDS ORDERED: Tubing IV Secondary IV ONE ×3 (19:18→20:49)
[2017-05-18] MEDS: Amikacin 750 MG in NS 110 ML IV SCH (20:23)
[2017-05-18] MEDS: Dyna-Hex 2% Top Sol 2oz TOPIC SCH (20:24)
[2017-05-18] MEDS ORDERED: NS 500ML ONE ×2 (20:34→20:49)
[2017-05-18] MEDS ORDERED: Tubing Blood Filter IV ONE (20:49)
[2017-05-18] MEDS ORDERED: NS 275ml ONE (20:49)
[2017-05-19] VITALS (24 sets, daily range): BP systolic 109–151; BP diastolic 32–93
[2017-05-19 03:45] LABS: BASOPHILS % (AUTO) 0.8 % (0.0-2.0); EOSINOPHILS % (AUTO) 5.9 % (0.0-3.0); HEMOGLOBIN 8.5 G/DL (12.0-16.0); LYMPHOCYTES % (AUTO) 20.6 % (20.0-45.0); MEAN CORPUSCULAR VOLUME 93 FL (80-99); MONOCYTES % (AUTO) 7.7 % (1.0-10.0); PLATELET COUNT 629 K/UL (150-450); RED BLOOD COUNT 2.89 M/UL (4.20-5.40); RED CELL DISTRIBUTION WIDTH 15.5 % (11.6-14.8); WHITE BLOOD COUNT 11.5 K/UL (4.8-10.8)
[2017-05-19 03:59] LABS: ALANINE AMINOTRANSFERASE < 6 U/L (12-78); ALBUMIN 1.6 G/DL (3.4-5.0); ALBUMIN/GLOBULIN RATIO 0.4 (1.0-2.7); ALKALINE PHOSPHATASE 47 U/L (46-116); ANION GAP 6 mmol/L (5-15); ASPARTATE AMINO TRANSFERASE 7 U/L (15-37); BILIRUBIN,TOTAL 0.3 MG/DL (0.2-1.0); BLOOD UREA NITROGEN 3 mg/dL (7-18); CALCIUM 6.8 MG/DL (8.5-10.1); CARBON DIOXIDE 22 MMOL/L (21-32); CHLORIDE 117 MMOL/L (98-107); CREATININE 0.4 MG/DL (0.55-1.30); PHOSPHORUS 1.8 MG/DL (2.5-4.9); POTASSIUM 3.4 MMOL/L (3.5-5.1); SODIUM 145 MMOL/L (136-145)
[2017-05-19] MEDS: dilTIAZem HCl 30mg tab ORAL SCH ×3 (06:22→18:21)
--- NOTE | 2017-05-19 07:40 | Pulmonolgy Critical Care Note ---
Critical Care - Asmt/Plan Assessment/Plan: ASSESSMENT Sepsis with septic shock Acute hypoxemic hypercapnic RF requiring intubation failure to wean aspiration PNA acute toxic metabolic encephalopathy on chronic dementia ( likely due to sepsis ) SVT Acute kidney injury-resolved ( due to sepsis) Seizure disorder DVT/PE e/lyte imbalance Dysphagia, G tube sacral decub POA PLAN OF CARE ICU status off pressors Hemodynamically stable vent support ; pulmonary toilet daily CXR and ABG ABG stable on current settings, unable to wean CXR w/out change Abx, ID follows Sputum cx+ Pseudomonas, ACB, urine, blood, influenza, C dif all negative, repeated urine cx + yeast Cardio follows On Cardizem and Digoxin SVT resolved ECHO with pEF 65-70% and RVSP of 17 Eliquis on hold s/p IVF JUJU resolved, likely 2 to sepsis Nephro follows monitor renal parameters, lytes, correct lytes as needed, avoid nephrotoxic strict aspiration precautions nutritional support via tube feeding CT head no acute IC pathology but c/w extensive CV disease Seizure precautions continue Depakote Pain management bowel regimen DVT, GI prophylaxis wound care as per wound nurse recommendations daughter agrees with trach; tentatively planned for Sunday case discussed and evaluated by supervising physician Critical Care - Objective Last 24 Hour Vital Signs Date Time Temp Pulse Resp B/P (MAP) Pulse Ox O2 Delivery O2 Flow Rate FiO2 05/19/17 07:00 74 19 145/53 100 Mechanical Ventilator 40 05/19/17 06:59 72 20 40 05/19/17 06:22 78 126/55 05/19/17 06:00 69 22 131/69 100 Mechanical Ventilator 40 05/19/17 05:20 78 19 40 05/19/17 05:00 79 22 129/70 100 Mechanical Ventilator 40 05/19/17 04:00 40 05/19/17 04:00 98.4 71 19 126/55 100 Mechanical Ventilator 40 05/19/17 04:00 72 05/19/17 03:05 79 19 40 05/19/17 03:00 77 27 113/93 100 Mechanical Ventilator 40 05/19/17 02:00 85 22 116/52 100 Mechanical Ventilator 40 05/19/17 01:07 74 27 40 05/19/17 01:00 91 29 121/41 98 Mechanical Ventilator 40 05/19/17 00:00 99.1 89 22 125/59 100 Mechanical Ventilator 40 18 00:00 72 18 00:00 40 18 23:29 71 136/55 18 23:00 71 22 136/55 100 Mechanical Ventilator 40 18 22:38 65 20 40 18 22:00 74 27 133/89 100 Mechanical Ventilator 40 18 21:00 65 22 121/50 100 Mechanical Ventilator 40 05/18/17 20:55 74 28 40 05/18/17 20:12 99.4 69 20 117/46 100 Mechanical Ventilator 40 05/18/17 20:00 79 05/18/17 19:11 68 21 40 05/18/17 19:00 68 20 104/44 100 Mechanical Ventilator 40 05/18/17 18:00 77 20 108/45 100 Mechanical Ventilator 40 05/18/17 17:22 77 122/53 05/18/17 17:00 78 19 122/53 100 Mechanical Ventilator 40 05/18/17 16:56 73 27 40 05/18/17 16:00 98.8 75 24 114/45 100 Mechanical Ventilator 40 05/18/17 16:00 40 05/18/17 15:52 77 18 15:25 82 23 40 05/18/17 15:00 76 26 122/58 99 Mechanical Ventilator 40 05/18/17 14:00 84 26 119/50 99 Mechanical Ventilator 40 05/18/17 13:25 90 34 40 05/18/17 13:00 85 31 155/63 98 Mechanical Ventilator 40 05/18/17 12:27 82 144/64 05/18/17 12:00 98.6 81 27 144/64 100 Mechanical Ventilator 40 05/18/17 12:00 40 18 12:00 89 05/18/17 11:29 88 3 40 18 11:00 84 31 139/53 100 Mechanical Ventilator 40 18 10:17 100 05/18/17 10:00 75 23 110/46 100 Mechanical Ventilator 40 18 09:32 73 18 09:30 110/46 18 09:22 73 23 40 05/18/17 09:00 75 24 120/53 100 Mechanical Ventilator 40 05/18/17 08:00 40 05/18/17 08:00 98.7 83 19 106/47 99 Mechanical Ventilator 40 05/18/17 08:00 81 Status: awake, other - bedridden , on vent, responsive Condition: critical, other - OP with ET in palce, intact HEENT: atraumatic Heart: HR/BP stable Abdomen: soft, non-tender, active bowel sounds Extremities: no C/C/E Micro: Microbiology Date/Time Source Procedure Growth Status 05/17/17 13:00 Indwelling Cath Urine Culture - Preliminary Resulted Critical Care - Subjective ROS Limited/Unobtainable: Yes Interval Events: leucocytosis tending down, afebrile no signs of respiratory distress on current settings so far unable to wean low K, P and Mg this am CXR w/out changes Condition: critical EKG Rhythm: Sinus Rhythm FI02: 40 Vent Support Breath Rate: 18 Vent Support Mode: AC Vent Tidal Volume: 500 Sputum Amount: Small PEEP: 0.0 PIP: 28 Tube Feeding Amount: 45 I&O: Intake and Output 05/18/17 05/19/17 19:00 07:00 Intake Total 1858.917 ml 1133.5 ml Output Total 1550 ml 1485 ml Balance 308.917 ml -351.5 ml IV Total 1093.917 ml 548.5 ml Tube Feeding 495 ml 585 ml Other 270 ml Output Urine Total 1550 ml 1485 ml # Bowel Movements 1 6 CXR: 05/19 No change from previous study. Bilateral mixed infiltrates and probable bilateral pleural effusions. ET-Tube: 7.5 ET Position: 23 Keyshawn ([facility]Est[facility] Armenta NP May 19, 2017 07:40
[2017-05-19] MEDS: Docusate 100mg/10ml Liq ORAL SCH ×2 (08:19→20:52)
[2017-05-19] MEDS: Phospha 250 Neutral tab NG SCH ×3 (08:47→18:20)
[2017-05-19] MEDS: Pantoprazole Inj IV SCH ×2 (08:48→20:49)
[2017-05-19] MEDS: Heparin 5000 units/ml inj SUBQ SCH ×2 (08:57→20:51)
[2017-05-19] MEDS ORDERED: Potassium Phosphate 30 MM in NS 275 ML IV ONE ×2 (09:00→15:00)
--- NOTE | 2017-05-19 09:43 | Diagnostic Imaging Report ---
Indication: Reason For Exam: DYSPNEA Technique: XRAY Chest 1v Comparison:05/18/2017 Findings: Bilateral airspace disease and interstitial infiltrates are noted unchanged. Endotracheal tube remains in good position. Left subclavian catheter remains with tip in the superior vena cava. There is slight blunting of the costophrenic angles unchanged. Impression: No change from previous study. Bilateral mixed infiltrates and probable bilateral pleural effusions. Endotracheal tube and left subclavian catheter.
[2017-05-19] MEDS: Vancomycin 750mg/NS 250ml 250 ML IVPB SCH ×2 (09:55→20:49)
--- NOTE | 2017-05-19 09:58 | Nephrology Progress Note ---
Assessment/Plan Problem List: (1) Acute respiratory failure with hypoxia and hypercapnia (2) Septic shock (3) Renal insufficiency (4) Hypercalcemia Assessment acute renal failure resolving persistant low mag and K and Phos ? CKD underlying Acute respiratory failure septic shock sever Hypercalcemia, corrected for low Albumin HypoAlbuminemia Anemia Dementia Plan Plan: Weaning in process mag and phos supplement as needed monitor serum Ca 2D echo- Left ventricular ejection fraction estimated to be 65-70%. increase feeding Phos K and Mag supplement as needed hemodynamic support Aredia given 05/10 monitor renal parameters serum cortisol level 12 avoid nephrotoxics per orders Subjective ROS Limited/Unobtainable: Yes Objective Objective Last 24 Hour Vital Signs Date Time Temp Pulse Resp B/P (MAP) Pulse Ox O2 Delivery O2 Flow Rate FiO2 05/19/17 09:16 100 05/19/17 09:15 129/44 05/19/17 09:00 75 20 129/44 100 Mechanical Ventilator 40 05/19/17 08:47 101 05/19/17 08:39 101 31 40 05/19/17 08:00 79 05/19/17 08:00 98.8 85 19 133/51 100 Mechanical Ventilator 40 05/19/17 08:00 40 05/19/17 07:00 74 19 145/53 100 Mechanical Ventilator 40 05/19/17 06:59 72 20 40 05/19/17 06:22 78 126/55 05/19/17 06:00 69 22 131/69 100 Mechanical Ventilator 40 05/19/17 05:20 78 19 40 05/19/17 05:00 79 22 129/70 100 Mechanical Ventilator 40 05/19/17 04:00 40 05/19/17 04:00 98.4 71 19 126/55 100 Mechanical Ventilator 40 05/19/17 04:00 72 05/19/17 03:05 79 19 40 05/19/17 03:00 77 27 113/93 100 Mechanical Ventilator 40 05/19/17 02:00 85 22 116/52 100 Mechanical Ventilator 40 05/19/17 01:07 74 27 40 05/19/17 01:00 91 29 121/41 98 Mechanical Ventilator 40 05/19/17 00:00 99.1 89 22 125/59 100 Mechanical Ventilator 40 05/19/17 00:00 72 05/19/17 00:00 40 1/19/18 23:29 71 136/55 05/18/17 23:00 71 22 136/55 100 Mechanical Ventilator 40 05/18/17 22:38 65 20 40 05/18/17 22:00 74 27 133/89 100 Mechanical Ventilator 40 05/18/17 21:00 65 22 121/50 100 Mechanical Ventilator 40 05/18/17 20:55 74 28 40 05/18/17 20:12 99.4 69 20 117/46 100 Mechanical Ventilator 40 05/18/17 20:00 79 05/18/17 19:11 68 21 40 05/18/17 19:00 68 20 104/44 100 Mechanical Ventilator 40 05/18/17 18:00 77 20 108/45 100 Mechanical Ventilator 40 05/18/17 17:22 77 122/53 05/18/17 17:00 78 19 122/53 100 Mechanical Ventilator 40 05/18/17 16:56 73 27 40 05/18/17 16:00 98.8 75 24 114/45 100 Mechanical Ventilator 40 05/18/17 16:00 40 05/18/17 15:52 77 05/18/17 15:25 82 23 40 05/18/17 15:00 76 26 122/58 99 Mechanical Ventilator 40 05/18/17 14:00 84 26 119/50 99 Mechanical Ventilator 40 05/18/17 13:25 90 34 40 05/18/17 13:00 85 31 155/63 98 Mechanical Ventilator 40 05/18/17 12:27 82 144/64 05/18/17 12:00 98.6 81 27 144/64 100 Mechanical Ventilator 40 05/18/17 12:00 40 05/18/17 12:00 89 05/18/17 11:29 88 3 40 05/18/17 11:00 84 31 139/53 100 Mechanical Ventilator 40 05/18/17 10:17 100 05/18/17 10:00 75 23 110/46 100 Mechanical Ventilator 40 Intake and Output 05/18/17 05/19/17 19:00 07:00 Intake Total 1858.917 ml 1133.5 ml Output Total 1550 ml 1485 ml Balance 308.917 ml -351.5 ml IV Total 1093.917 ml 548.5 ml Tube Feeding 495 ml 585 ml Other 270 ml Output Urine Total 1550 ml 1485 ml # Bowel Movements 1 6 Laboratory Tests 05/19/17 03:30: White Blood Count 11.5H, Red Blood Count 2.89L, Hemoglobin 8.5L, Hematocrit 27.0L, Mean Corpuscular Volume 93, Mean Corpuscular Hemoglobin 29.6, Mean Corpuscular Hemoglobin Concent 31.7L, Red Cell Distribution Width 15.5H, Platelet Count 629H, Mean Platelet Volume 4.9L, Neutrophils (%) (Auto) 65.0, Lymphocytes (%) (Auto) 20.6, Monocytes (%) (Auto) 7.7, Eosinophils (%) (Auto) 5.9H, Basophils (%) (Auto) 0.8, Sodium Level 145, Potassium Level 3.4L, Chloride Level 117H, Carbon Dioxide Level 22, Anion Gap 6, Blood Urea Nitrogen 3L, Creatinine 0.4L, Estimat Glomerular Filtration Rate , Glucose Level 157H, Calcium Level 6.8L, Phosphorus Level 1.8L, Magnesium Level 1.4L, Total Bilirubin 0.3, Aspartate Amino Transf (AST/SGOT) 7L, Alanine Aminotransferase ( ALT/SGPT) < 6L, Alkaline Phosphatase 47, Total Protein 5.3L, Albumin 1.6L, Globulin 3.7, Albumin/Globulin Ratio 0.4L 05/19/17 08:00: Random Amikacin Level [Pending], Vancomycin Level Trough 11.5 05/19/17 09:30: Arterial Blood pH 7.410, Arterial Blood Partial Pressure CO2 30.8L, Arterial Blood Partial Pressure O2 93.9, Arterial Blood HCO3 19.4L, Arterial Blood Oxygen Saturation 96.8, Arterial Blood Base Excess -4.5, Kelvin Test Positive Height (Feet): 5 Height (Inches): 4.00 Weight (Pounds): 173 General Appearance: other Cardiovascular: tachycardia Respiratory/Chest: decreased breath sounds Abdomen: soft Objective no other changes ALYSON FLANAGAN May 19, 2017 09:58
[2017-05-19] MEDS ORDERED: Albuterol/Ipratropium 3ml neb HHN PRN (10:45)
[2017-05-19] MEDS ORDERED: Vancomycin 500mg/D5W 110ml IVPB ONE ×2 (11:30)
--- NOTE | 2017-05-19 14:43 | Cardiac Electrophysiology PN ---
Assessment/Plan Assessment/Plan 1. Recurrent episodes of supraventricular tachycardia. Continue Cardizem and digoxin . 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 2. Respiratory failure, on the ventilator, likely due to underlying sepsis and pneumonia. May need tracheostomy 3. Status post septic shock. 4. Toxic encephalopathy. 5. Acute renal failure that has resolved. 6. Seizure disorder. 7. Deep venous thrombosis and pulmonary embolism. 8. Dementia. 9. Status post PEG DW RN Subjective Subjective Intubated in ICU on Vent. No arrhythmias reported.Opens eyes. Objective Last 24 Hour Vital Signs Date Time Temp Pulse Resp B/P (MAP) Pulse Ox O2 Delivery O2 Flow Rate FiO2 05/19/17 14:00 69 19 109/42 100 Mechanical Ventilator 40 05/19/17 13:00 70 22 115/39 98 Mechanical Ventilator 40 05/19/17 12:40 67 21 40 05/19/17 12:14 101 131/48 05/19/17 12:00 68 05/19/17 12:00 40 05/19/17 12:00 98.5 67 24 136/45 100 Mechanical Ventilator 40 05/19/17 11:06 78 31 40 05/19/17 11:00 66 21 131/48 100 Mechanical Ventilator 40 05/19/17 10:00 67 20 136/54 99 Mechanical Ventilator 40 05/19/17 09:16 100 05/19/17 09:15 129/44 05/19/17 09:00 75 20 129/44 100 Mechanical Ventilator 40 05/19/17 08:47 101 05/19/17 08:39 101 31 40 05/19/17 08:00 79 05/19/17 08:00 98.8 85 19 133/51 100 Mechanical Ventilator 40 05/19/17 08:00 40 05/19/17 07:00 74 19 145/53 100 Mechanical Ventilator 40 05/19/17 06:59 72 20 40 05/19/17 06:22 78 126/55 05/19/17 06:00 69 22 131/69 100 Mechanical Ventilator 40 05/19/17 05:20 78 19 40 05/19/17 05:00 79 22 129/70 100 Mechanical Ventilator 40 05/19/17 04:00 40 05/19/17 04:00 98.4 71 19 126/55 100 Mechanical Ventilator 40 05/19/17 04:00 72 05/19/17 03:05 79 19 40 05/19/17 03:00 77 27 113/93 100 Mechanical Ventilator 40 05/19/17 02:00 85 22 116/52 100 Mechanical Ventilator 40 05/19/17 01:07 74 27 40 05/19/17 01:00 91 29 121/41 98 Mechanical Ventilator 40 05/19/17 00:00 99.1 89 22 125/59 100 Mechanical Ventilator 40 05/19/17 00:00 72 05/19/17 00:00 40 05/18/17 23:29 71 136/55 05/18/17 23:00 71 22 136/55 100 Mechanical Ventilator 40 05/18/17 22:38 65 20 40 05/18/17 22:00 74 27 133/89 100 Mechanical Ventilator 40 05/18/17 21:00 65 22 121/50 100 Mechanical Ventilator 40 05/18/17 20:55 74 28 40 05/18/17 20:12 99.4 69 20 117/46 100 Mechanical Ventilator 40 05/18/17 20:00 79 05/18/17 19:11 68 21 40 05/18/17 19:00 68 20 104/44 100 Mechanical Ventilator 40 05/18/17 18:00 77 20 108/45 100 Mechanical Ventilator 40 05/18/17 17:22 77 122/53 05/18/17 17:00 78 19 122/53 100 Mechanical Ventilator 40 05/18/17 16:56 73 27 40 05/18/17 16:00 98.8 75 24 114/45 100 Mechanical Ventilator 40 05/18/17 16:00 40 05/18/17 15:52 77 05/18/17 15:25 82 23 40 05/18/17 15:00 76 26 122/58 99 Mechanical Ventilator 40 Intake and Output 05/18/17 05/19/17 19:00 07:00 Intake Total 1858.917 ml 1133.5 ml Output Total 1550 ml 1485 ml Balance 308.917 ml -351.5 ml IV Total 1093.917 ml 548.5 ml Tube Feeding 495 ml 585 ml Other 270 ml Output Urine Total 1550 ml 1485 ml # Bowel Movements 1 6 Laboratory Tests Test 05/19/17 03:30 05/19/17 08:00 05/19/17 09:30 White Blood Count 11.5 K/UL (4.8-10.8) H Red Blood Count 2.89 M/UL (4.20-5.40) L Hemoglobin 8.5 G/DL (12.0-16.0) L Hematocrit 27.0 % (37.0-47.0) L Mean Corpuscular Volume 93 FL (80-99) Mean Corpuscular Hemoglobin 29.6 PG (27.0-31.0) Mean Corpuscular Hemoglobin Concent 31.7 G/DL (32.0-36.0) L Red Cell Distribution Width 15.5 % (11.6-14.8) H Platelet Count 629 K/UL (150-450) H Mean Platelet Volume 4.9 FL (6.5-10.1) L Neutrophils (%) (Auto) 65.0 % (45.0-75.0) Lymphocytes (%) (Auto) 20.6 % (20.0-45.0) Monocytes (%) (Auto) 7.7 % (1.0-10.0) Eosinophils (%) (Auto) 5.9 % (0.0-3.0) H Basophils (%) (Auto) 0.8 % (0.0-2.0) Sodium Level 145 MMOL/L (136-145) Potassium Level 3.4 MMOL/L (3.5-5.1) L Chloride Level 117 MMOL/L (98-107) H Carbon Dioxide Level 22 MMOL/L (21-32) Anion Gap 6 mmol/L (5-15) Blood Urea Nitrogen 3 mg/dL (7-18) L Creatinine 0.4 MG/DL (0.55-1.30) L Estimat Glomerular Filtration Rate mL/min (>60) Glucose Level 157 MG/DL (74-106) H Calcium Level 6.8 MG/DL (8.5-10.1) L Phosphorus Level 1.8 MG/DL (2.5-4.9) L Magnesium Level 1.4 MG/DL (1.8-2.4) L Total Bilirubin 0.3 MG/DL (0.2-1.0) Aspartate Amino Transf (AST/SGOT) 7 U/L (15-37) L Alanine Aminotransferase (ALT/SGPT) < 6 U/L (12-78) L Alkaline Phosphatase 47 U/L (46-116) Total Protein 5.3 G/DL (6.4-8.2) L Albumin 1.6 G/DL (3.4-5.0) L Globulin 3.7 g/dL Albumin/Globulin Ratio 0.4 (1.0-2.7) L Random Amikacin Level Pending Vancomycin Level Trough 11.5 ug/mL (5.0-12.0) Arterial Blood pH 7.410 (7.350-7.450) Arterial Blood Partial Pressure CO2 30.8 mmHg (35.0-45.0) L Arterial Blood Partial Pressure O2 93.9 mmHg (75.0-100.0) Arterial Blood HCO3 19.4 mmol/L (22.0-26.0) L Arterial Blood Oxygen Saturation 96.8 % (92.0-98.0) Arterial Blood Base Excess -4.5 Kelvin Test Positive Microbiology Date/Time Source Procedure Growth Status 05/17/17 13:00 Blood Blood Culture - Preliminary NO GROWTH AFTER 24 HOURS Resulted 05/17/17 12:55 Blood Blood Culture - Preliminary NO GROWTH AFTER 24 HOURS Resulted 05/17/17 13:00 Indwelling Cath Urine Culture - Preliminary Yeast Species Resulted Objective HEAD AND NECK: Orally intubated with no JVD. LUNGS: Coarse rhonchi. CARDIOVASCULAR: Regular S1 and S2 with no gallop. ABDOMEN: Soft and nontender.PEG in place EXTREMITIES: No pitting edema. MALLORY BROWN May 19, 2017 14:43
[2017-05-19] MEDS: Dyna-Hex 2% Top Sol 2oz TOPIC SCH (19:30)
--- NOTE | 2017-05-19 20:27 | Internal Med Progress Note ---
Subjective Physician Name ZuleikaPriya hanson Attending Physician María Bustamante Current Medications Medications (Trade) Dose Ordered Sig/Jacque Route PRN Reason Start Time Stop Time Status Last Admin Dose Admin Acetaminophen (Tylenol) 650 mg Q4H PRN GT Mild Pain/Temp > 100.5 05/17/17 12:00 06/16/17 11:59 05/18/17 20:23 Acetaminophen/ Hydrocodone Bitart (Spivey 10/325) 1 tab Q4H PRN GT Moderate to Severe Pain 05/17/17 17:00 05/24/17 16:59 05/19/17 06:23 Albuterol/ Ipratropium (Albuterol/ Ipratropium) 3 ml Q6H PRN HHN Shortness of Breath 05/19/17 10:45 05/24/17 10:44 Amikacin Protocol (Amikacin pharmacy to dose) 1 ea DAILY PRN MISC Per rx protocol 05/18/17 17:45 06/17/17 17:44 Amikacin Sulfate 750 mg/Sodium Chloride 113 ml @ 113 mls/hr Q36H IV 05/18/17 20:00 05/25/17 19:59 05/18/17 20:23 Bisacodyl (Dulcolax) 10 mg DAILYPRN PRN RECTAL Constipation 05/10/17 01:45 06/09/17 01:44 Chlorhexidine Gluconate (Laly-Hex 2%) 1 applic DAILY@2000 TOPIC 05/13/17 20:00 06/12/17 19:59 05/19/17 19:30 Clotrimazole (Lotrimin) 1 applic EVERY 12 HOURS TOPIC 05/10/17 15:00 06/09/17 14:59 05/19/17 08:49 Collagenase (Santyl) 1 applic DAILY TOPIC 05/18/17 09:00 06/17/17 08:59 05/19/17 08:49 Collagenase (Santyl) 1 applic PRN PRN TOPIC soilage 05/17/17 23:15 06/16/17 23:14 Dextrose (Dextrose 50%) STAT PRN IV Hypoglycemia 05/10/17 01:45 06/09/17 01:44 Digoxin (Lanoxin) 0.25 mg DAILY ORAL 05/18/17 09:00 06/17/17 08:59 05/19/17 08:47 Diltiazem HCl (Cardizem) 10 mg Q1HR PRN IVP Heart rate greater than 120. 05/14/17 19:30 06/13/17 19:29 05/17/17 12:16 Diltiazem HCl (Cardizem) 30 mg EVERY 6 HOURS ORAL 05/17/17 18:00 06/16/17 17:59 05/19/17 18:21 Docusate Sodium (Colace) 100 mg EVERY 12 HOURS ORAL 05/11/17 10:00 06/10/17 09:59 05/18/17 20:24 Heparin Sodium (Porcine) (Heparin 5000 units/ml) 5,000 units EVERY 12 HOURS SUBQ 05/10/17 09:00 06/09/17 08:59 05/19/17 08:57 Meropenem 1 gm/ Sodium Chloride 100 ml @ 200 mls/hr Q8HR@0630,1430,2230 IVPB 05/18/17 22:30 05/23/17 22:29 05/19/17 13:37 Norepinephrine Bitartrate 8 mg/ Dextrose 254 ml @ 0 mls/hr Q24H IV 05/10/17 09:30 06/09/17 05:59 05/11/17 11:34 Ondansetron HCl (Zofran) 4 mg Q6H PRN IVP Nausea & Vomiting 05/10/17 01:45 06/09/17 01:44 Pantoprazole (Protonix) 40 mg Q12HR IV 05/10/17 21:00 06/09/17 20:59 05/19/17 08:48 Phosphorus (Phospha 250 Neutral) 500 mg THREE TIMES A DAY NG 05/16/17 13:00 06/15/17 12:59 05/19/17 18:20 Polyethylene Glycol (Miralax) 17 gm DAILYPRN PRN ORAL Constipation 05/10/17 01:45 06/09/17 01:44 Potassium Phosphate 30 mm/ Sodium Chloride 285 ml @ 47.5 mls/hr ONCE ONCE IV 05/19/17 15:00 05/19/17 20:59 05/19/17 16:11 Vancomycin HCl (Vanco rx to dose) 1 ea DAILY PRN MISC Per rx protocol 05/10/17 01:45 2/10/18 01:44 Vancomycin/Sodium Chloride 250 ml @ 166.667 mls/hr Q12HR IVPB 05/16/17 21:00 05/21/17 23:59 05/19/17 09:55 Allergies: Coded Allergies: NO KNOWN DRUG ALLERGIES (Unverified Allergy, Unknown, 07/29/14) Objective Last Vital Signs Date Time Temp Pulse Resp B/P (MAP) Pulse Ox O2 Delivery O2 Flow Rate FiO2 05/19/17 19:18 84 22 40 05/19/17 19:00 127/49 98 Mechanical Ventilator 05/19/17 16:00 98.5 05/12/17 01:37 15.0 Laboratory Tests Test 05/19/17 03:30 05/19/17 08:00 05/19/17 09:30 White Blood Count 11.5 K/UL (4.8-10.8) H Red Blood Count 2.89 M/UL (4.20-5.40) L Hemoglobin 8.5 G/DL (12.0-16.0) L Hematocrit 27.0 % (37.0-47.0) L Mean Corpuscular Volume 93 FL (80-99) Mean Corpuscular Hemoglobin 29.6 PG (27.0-31.0) Mean Corpuscular Hemoglobin Concent 31.7 G/DL (32.0-36.0) L Red Cell Distribution Width 15.5 % (11.6-14.8) H Platelet Count 629 K/UL (150-450) H Mean Platelet Volume 4.9 FL (6.5-10.1) L Neutrophils (%) (Auto) 65.0 % (45.0-75.0) Lymphocytes (%) (Auto) 20.6 % (20.0-45.0) Monocytes (%) (Auto) 7.7 % (1.0-10.0) Eosinophils (%) (Auto) 5.9 % (0.0-3.0) H Basophils (%) (Auto) 0.8 % (0.0-2.0) Sodium Level 145 MMOL/L (136-145) Potassium Level 3.4 MMOL/L (3.5-5.1) L Chloride Level 117 MMOL/L (98-107) H Carbon Dioxide Level 22 MMOL/L (21-32) Anion Gap 6 mmol/L (5-15) Blood Urea Nitrogen 3 mg/dL (7-18) L Creatinine 0.4 MG/DL (0.55-1.30) L Estimat Glomerular Filtration Rate mL/min (>60) Glucose Level 157 MG/DL (74-106) H Calcium Level 6.8 MG/DL (8.5-10.1) L Phosphorus Level 1.8 MG/DL (2.5-4.9) L Magnesium Level 1.4 MG/DL (1.8-2.4) L Total Bilirubin 0.3 MG/DL (0.2-1.0) Aspartate Amino Transf (AST/SGOT) 7 U/L (15-37) L Alanine Aminotransferase (ALT/SGPT) < 6 U/L (12-78) L Alkaline Phosphatase 47 U/L (46-116) Total Protein 5.3 G/DL (6.4-8.2) L Albumin 1.6 G/DL (3.4-5.0) L Globulin 3.7 g/dL Albumin/Globulin Ratio 0.4 (1.0-2.7) L Random Amikacin Level Pending Vancomycin Level Trough 11.5 ug/mL (5.0-12.0) Arterial Blood pH 7.410 (7.350-7.450) Arterial Blood Partial Pressure CO2 30.8 mmHg (35.0-45.0) L Arterial Blood Partial Pressure O2 93.9 mmHg (75.0-100.0) Arterial Blood HCO3 19.4 mmol/L (22.0-26.0) L Arterial Blood Oxygen Saturation 96.8 % (92.0-98.0) Arterial Blood Base Excess -4.5 Kelvin Test Positive Microbiology Date/Time Source Procedure Growth Status 05/17/17 13:00 Blood Blood Culture - Preliminary NO GROWTH AFTER 24 HOURS Resulted 05/17/17 12:55 Blood Blood Culture - Preliminary NO GROWTH AFTER 24 HOURS Resulted 05/17/17 13:00 Indwelling Cath Urine Culture - Preliminary Yeast Species Resulted Intake and Output 05/18/17 05/19/17 19:00 07:00 Intake Total 1858.917 ml 1133.5 ml Output Total 1550 ml 1485 ml Balance 308.917 ml -351.5 ml IV Total 1093.917 ml 548.5 ml Tube Feeding 495 ml 585 ml Other 270 ml Output Urine Total 1550 ml 1485 ml # Bowel Movements 1 6 Assessment/Plan Assessment/Plan Assessment/Plan Assessment/Plan Problem List: (1) SVT (supraventricular tachycardia) ICD Codes: I47.1 - SVT (supraventricular tachycardia) SNOMED: 8095596 (2) Septic shock ICD Codes: A41.9 - Sepsis, unspecified organism; R65.21 - Severe sepsis with septic shock SNOMED: 91792076 (3) Acute respiratory failure with hypoxia and hypercapnia ICD Codes: J96.01 - Acute respiratory failure with hypoxia; J96.02 - Acute respiratory failure with hypercapnia SNOMED: 33950586, 55218774, 001489491 (4) Aspiration pneumonia ICD Codes: J69.0 - Pneumonitis due to inhalation of food and vomit SNOMED: 793309681 Qualifiers: Qualified Codes: J69.0 - Pneumonitis due to inhalation of food and vomit (5) Toxic metabolic encephalopathy ICD Codes: G92 - Toxic encephalopathy SNOMED: 257242090 (6) JUJU (acute kidney injury) ICD Codes: N17.9 - Acute kidney failure, unspecified SNOMED: 74838248 (7) Hyponatremia ICD Codes: E87.1 - Hyponatremia SNOMED: 16181339 (8) Hyperkalemia ICD Codes: E87.5 - Hyperkalemia SNOMED: 64045122 (9) Seizure disorder ICD Codes: G40.909 - Epilepsy, unspecified, not intractable, without status epilepticus SNOMED: 822126220 (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 (11) Dementia ICD Codes: F03.90 - Dementia SNOMED: 78997889 (12) S/P percutaneous endoscopic gastrostomy (PEG) tube placement ICD Codes: Z93.1 - Gastrostomy status SNOMED: 748268465 (13) Hypercalcemia ICD Codes: E83.52 - Hypercalcemia SNOMED: 62493885 (14) Hypophosphatemia ICD Codes: E83.39 - Other disorders of phosphorus metabolism SNOMED: 0466364 (15) Hypomagnesemia ICD Codes: E83.42 - Hypomagnesemia SNOMED: 110696524 (16) Hypokalemia ICD Codes: E87.6 - Hypokalemia SNOMED: 26678318 Status: stable Assessment/Plan Cont ICU care Pulm consulted Cont on vent and wean as tolerated Daily SBTs Now off pressors Cardiology consulted given SVT Digoxin and Diltiazem added ID consulted Cont broad-spectrum abx: vanco, zosyn; cipro added for double pseudomonas coverage s/p flagyl (C. diff neg) F/u cultures Trend CBC Trend ABG Monitor CXR Renal consulted s/p IVFs Replete lytes Trend BMP Cont tube feeds via PEG Cont home meds including Depakote Eliquis on hold Pain control, supportive care, bowel regimen D/w daughter regarding need for tracheostomy and she is now agreeable to proceed. Surgery consulted w/ likely plan for procedure on 05/21 DVT ppx: SCDs, HSQ GI ppx: PPI Dispo: pending further stabilization, cont ICU care FULL CODE per discussion w/ daughter At the time of my involvement, the patient's condition was critical with high potential for and/or physiologic deterioration secondary to acute respiratory failure 2/2 aspiration pneumonia, sepsis, acute encephalopathy as delineated in the note above. On the above date of service, I spent a total of 36 minutes in the ICU evaluating, managing, and providing critical care services to this patient, including time spent documenting these activities, counseling patient/family, and coordinating care. Critical care services performed include: Telemetry Review Hemodynamic measurement interpretation Laboratory data review and interpretation Ventilator setting review, management, and adjustment Discussion of care plans with patient, family, and/or surrogate decision makers Discussion of patient's care with primary medical team, surgical team, and/or consulting service Decision to obtain further radiologic evaluation, after consideration of risk/ benefit ratio Decision to perform invasive procedure, after consideration of risk/benefit ratio Review of most recent microbiology results with assessment and modification of antimicrobial coverage Discussion of patient's code status and further advancement towards the ultimate goals of care Plan outlined above discussed with patient/family, SOLAR MANAGER, 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 D/w pulm re weaning Dw cardiology re SVT D/w pt's daughter regarding plan of care, need for tracheostomy D/w ID re abx D/w surgery re tracheostomy Time of note may not reflect time of encounter Subjective Subjective Date patient seen: May 18, 2017 Time patient seen: 12:51 ROS Limited/Unobtainable: Yes Allergies: Coded Allergies: NO KNOWN DRUG ALLERGIES (Unverified Allergy, Unknown, 07/29/14) Subjective No acute o/n events Now off pressors Has failed multiple SBTs. Currenty on SIMV. Discussed with daughter regarding need for tracheostomy--she is hesitant but is agreeable to proceeding if absolutely necessary and if it can be reversed at some point. Pt intubated, sedated but arousable to voice Unable to obtain ROS as pt sedated and also w/ dementia Objective Objective Last 24 Hour Vital Signs Date Time Temp Pulse Resp B/P (MAP) Pulse Ox O2 Delivery O2 Flow Rate FiO2 05/18/17 12:27 82 144/64 05/18/17 12:00 98.6 81 27 144/64 100 Mechanical Ventilator 40 05/18/17 12:00 40 05/18/17 12:00 89 05/18/17 11:29 88 3 40 05/18/17 11:00 84 31 139/53 100 Mechanical Ventilator 40 05/18/17 10:17 100 05/18/17 10:00 75 23 110/46 100 Mechanical Ventilator 40 05/18/17 09:32 73 05/18/17 09:30 110/46 05/18/17 09:22 73 23 40 05/18/17 09:00 75 24 120/53 100 Mechanical Ventilator 40 05/18/17 08:00 40 05/18/17 08:00 98.7 83 19 106/47 99 Mechanical Ventilator 40 05/18/17 08:00 81 05/18/17 07:29 84 29 40 05/18/17 07:00 79 24 122/53 99 Mechanical Ventilator 40 05/18/17 06:00 80 25 115/46 100 Mechanical Ventilator 40 05/18/17 05:31 77 120/35 05/18/17 05:14 81 28 40 05/18/17 05:00 81 26 120/35 100 Mechanical Ventilator 40 05/18/17 04:00 98.4 70 26 112/44 100 Mechanical Ventilator 40 05/18/17 04:00 40 05/18/17 03:46 80 05/18/17 03:05 83 25 40 05/18/17 03:00 89 32 127/77 100 Mechanical Ventilator 40 05/18/17 02:00 86 30 144/54 100 Mechanical Ventilator 40 05/18/17 01:03 86 29 40 05/18/17 01:00 86 29 112/47 98 Mechanical Ventilator 40 05/18/17 00:00 99.2 76 25 115/46 100 Mechanical Ventilator 40 05/18/17 00:00 40 05/17/17 23:57 73 118/43 05/17/17 23:31 67 05/17/17 23:00 75 23 120/38 100 Mechanical Ventilator 40 05/17/17 22:57 80 21 40 05/17/17 22:00 86 29 120/47 98 Mechanical Ventilator 40 05/17/17 21:15 84 29 40 05/17/17 21:00 68 20 101/43 99 Mechanical Ventilator 40 05/17/17 20:00 40 05/17/17 20:00 99.5 84 30 116/51 98 Mechanical Ventilator 40 05/17/17 19:24 75 26 40 05/17/17 19:20 69 05/17/17 19:00 73 19 105/39 98 Mechanical Ventilator 40 05/17/17 18:00 86 20 120/42 97 Mechanical Ventilator 40 05/17/17 17:48 78 104/31 05/17/17 17:00 82 20 104/31 100 Mechanical Ventilator 40 05/17/17 16:57 66 23 40 05/17/17 16:00 40 05/17/17 16:00 76 05/17/17 16:00 98.5 66 19 118/42 100 Mechanical Ventilator 40 05/17/17 15:00 76 20 118/46 100 Mechanical Ventilator 40 05/17/17 15:00 70 21 40 05/17/17 14:00 81 22 115/45 100 Mechanical Ventilator 40 05/17/17 13:15 81 32 40 05/17/17 13:00 73 28 118/46 100 Mechanical Ventilator 40 05/17/17 13:00 40 Intake and Output 05/17/17 05/18/17 19:00 07:00 Intake Total 1733.2 ml 1580.0 ml Output Total 570 ml 1270 ml Balance 1163.2 ml 310.0 ml Intake Free Water 150 ml IV Total 1043.2 ml 1000.0 ml Tube Feeding 540 ml 540 ml Other 40 ml Output Urine Total 570 ml 1270 ml # Bowel Movements 4 4 Laboratory Tests 05/18/17 04:55: White Blood Count 13.4H, Red Blood Count 2.73L, Hemoglobin 8.3L, Hematocrit 25.8L, Mean Corpuscular Volume 94, Mean Corpuscular Hemoglobin 30.4, Mean Corpuscular Hemoglobin Concent 32.2, Red Cell Distribution Width 15.8H, Platelet Count 594H, Mean Platelet Volume 5.1L, Neutrophils (%) (Auto) 65.2, Lymphocytes (%) (Auto) 17.1L, Monocytes (%) (Auto) 8.3, Eosinophils (%) (Auto) 8.6H, Basophils (%) (Auto) 0.7, Sodium Level 146H, Potassium Level 3.2L, Chloride Level 117H, Carbon Dioxide Level 21, Anion Gap 9, Blood Urea Nitrogen 3L, Creatinine 0.4L, Estimat Glomerular Filtration Rate , Glucose Level 152H, Calcium Level 6.8L, Phosphorus Level 2.0L, Magnesium Level 1.4L, Total Bilirubin 0.3, Aspartate Amino Transf (AST/SGOT) 7L, Alanine Aminotransferase ( ALT/SGPT) < 6L, Alkaline Phosphatase 47, Total Protein 5.2L, Albumin 1.5L, Globulin 3.7, Albumin/Globulin Ratio 0.4L 05/18/17 08:10: Arterial Blood pH 7.440, Arterial Blood Partial Pressure CO2 28.9L, Arterial Blood Partial Pressure O2 97.4, Arterial Blood HCO3 19.3L, Arterial Blood Oxygen Saturation 97.2, Arterial Blood Base Excess -4.0, Kelvin Test Positive Height (Feet): 5 Height (Inches): 4.00 Weight (Pounds): 172 Objective General: intubated, sedated, arousable to voice Head: normocephalic, without obvious abnormality, atraumatic Eyes: conjunctivae/corneas clear. PERRL, EOM's intact Throat: lips, mucosa, and tongue normal. MMM Neck: supple, symmetrical, trachea midline, and no JVD Lungs: +rhonchi b/l Heart: regular rate and rhythm, S1, S2 normal, no murmur, click, rub or gallop Abdomen: soft, non-tender, non-distended, bowel sounds normal; Extremities: extremities normal, atraumatic, no cyanosis, +BLE edema Pulses: 2+ and symmetric Skin: skin color, texture, turgor normal; no rashes or lesions Neurologic: moving all extremities Priya Clark M.D. May 19, 2017 20:26
[2017-05-20] VITALS (24 sets, daily range): BP systolic 100–153; BP diastolic 48–78
[2017-05-20] MEDS: dilTIAZem HCl 30mg tab ORAL SCH ×4 (00:06→17:25)
[2017-05-20 04:52] LABS: BASOPHILS % (AUTO) 0.8 % (0.0-2.0); EOSINOPHILS % (AUTO) 4.1 % (0.0-3.0); HEMATOCRIT 26.7 % (37.0-47.0); HEMOGLOBIN 8.5 G/DL (12.0-16.0); LYMPHOCYTES % (AUTO) 19.9 % (20.0-45.0); MEAN CORPUSCULAR VOLUME 95 FL (80-99); MONOCYTES % (AUTO) 6.8 % (1.0-10.0); NEUTROPHILS % (AUTO) 68.3 % (45.0-75.0); PLATELET COUNT 640 K/UL (150-450); RED BLOOD COUNT 2.81 M/UL (4.20-5.40); RED CELL DISTRIBUTION WIDTH 17.6 % (11.6-14.8); WHITE BLOOD COUNT 11.7 K/UL (4.8-10.8)
[2017-05-20 05:08] LABS: ANION GAP 7 mmol/L (5-15); BLOOD UREA NITROGEN 2 mg/dL (7-18); CALCIUM 7.4 MG/DL (8.5-10.1); CARBON DIOXIDE 21 MMOL/L (21-32); CHLORIDE 115 MMOL/L (98-107); CREATININE 0.3 MG/DL (0.55-1.30); PHOSPHORUS 2.4 MG/DL (2.5-4.9); POTASSIUM 4.3 MMOL/L (3.5-5.1); SODIUM 143 MMOL/L (136-145)
[2017-05-20] MEDS: Amikacin 750 MG in NS 110 ML IV SCH (07:51)
[2017-05-20] MEDS: Docusate 100mg/10ml Liq ORAL SCH ×2 (08:01→21:00)
[2017-05-20] MEDS: Heparin 5000 units/ml inj SUBQ SCH ×2 (08:02→21:00)
[2017-05-20] MEDS: Pantoprazole Inj IV SCH ×2 (08:28→21:42)
[2017-05-20] MEDS: Phospha 250 Neutral tab NG SCH ×3 (08:29→17:25)
[2017-05-20] MEDS: Vancomycin 750mg/NS 250ml 250 ML IVPB SCH ×2 (08:29→21:44)
--- NOTE | 2017-05-20 10:03 | Diagnostic Imaging Report ---
Indication: Reason For Exam: SOB Technique: XRAY Chest 1v Comparison:05/19/2017 Findings: Compared to previous study, bilateral airspace and interstitial disease is again noted. There is blunting of the costophrenic angles bilaterally. Endotracheal tube remains in place. It lies just above the sara. No other change. Left subclavian catheter remains. Impression: Little change since previous study. Bilateral airspace and interstitial disease remains. Bilateral pleural effusions.
--- NOTE | 2017-05-20 10:18 | Pulmonolgy Critical Care Note ---
Critical Care - Asmt/Plan Assessment/Plan: ASSESSMENT Sepsis with septic shock Acute hypoxemic hypercapnic RF requiring intubation failure to wean aspiration PNA acute toxic metabolic encephalopathy on chronic dementia ( likely due to sepsis ) SVT Acute kidney injury-resolved ( due to sepsis) Seizure disorder DVT/PE e/lyte imbalance Dysphagia, G tube sacral decub POA PLAN OF CARE ICU status off pressors Hemodynamically stable vent support ; pulmonary toilet daily CXR ad ABG ABG stable on current settings, unable to wean CXR w/out change Abx, ID follows Sputum cx+ Pseudomonas, ACB, urine, blood, influenza, C dif all negative, repeated urine cx + yeast Cardio follows On Cardizem and Digoxin SVT resolved ECHO with pEF 65-70% and RVSP of 17 Eliquis on hold s/p IVF JUJU resolved, likely 2 to sepsis Nephro follows monitor renal parameters, lytes, correct lytes as needed, ( replace Mg today, K stable, on phospho supplements already); avoid nephrotoxic strict aspiration precautions nutritional support via tube feeding CT head no acute IC pathology but c/w extensive CV disease Seizure precautions continue Depakote Pain management bowel regimen DVT, GI prophylaxis wound care as per wound nurse recommendations daughter agrees with trach; tentatively planned for Sunday case discussed and evaluated by supervising physician Critical Care - Objective Last 24 Hour Vital Signs Date Time Temp Pulse Resp B/P (MAP) Pulse Ox O2 Delivery O2 Flow Rate FiO2 05/20/17 09:24 142/53 05/20/17 09:23 83 24 40 05/20/17 09:21 100 05/20/17 09:09 72 05/20/17 09:00 85 26 142/52 100 Mechanical Ventilator 40 05/20/17 08:00 98.7 79 29 132/67 100 Mechanical Ventilator 40 05/20/17 08:00 40 05/20/17 08:00 80 05/20/17 07:26 78 23 40 05/20/17 07:00 81 24 100/78 100 Mechanical Ventilator 40 05/20/17 06:10 69 144/67 05/20/17 06:00 69 21 100/78 100 Mechanical Ventilator 40 05/20/17 05:32 71 24 40 05/20/17 05:00 78 26 112/60 100 Mechanical Ventilator 40 05/20/17 04:00 98.6 73 23 112/60 100 Mechanical Ventilator 40 05/20/17 04:00 40 05/20/17 04:00 77 05/20/17 03:06 77 24 40 05/20/17 03:00 76 27 137/52 100 Mechanical Ventilator 40 05/20/17 02:00 90 22 125/48 99 Mechanical Ventilator 40 05/20/17 01:03 86 24 40 05/20/17 01:00 67 19 138/50 100 Mechanical Ventilator 40 05/20/17 00:06 72 140/68 05/20/17 00:00 72 05/20/17 00:00 40 05/20/17 00:00 98.3 71 22 132/55 100 Mechanical Ventilator 40 05/19/17 23:00 82 27 140/68 100 Mechanical Ventilator 40 05/19/17 22:56 83 24 40 05/19/17 22:00 78 23 140/68 100 Mechanical Ventilator 40 05/19/17 21:06 86 22 40 05/19/17 21:00 67 22 128/47 100 Mechanical Ventilator 40 05/19/17 20:00 98.3 79 24 141/69 100 Mechanical Ventilator 40 05/19/17 20:00 40 05/19/17 20:00 87 05/19/17 19:18 84 22 40 05/19/17 19:00 83 27 127/49 98 Mechanical Ventilator 40 05/19/17 18:21 88 151/65 05/19/17 18:00 88 28 151/65 100 Mechanical Ventilator 40 05/19/17 17:02 65 22 40 05/19/17 17:00 64 20 133/42 100 Mechanical Ventilator 40 05/19/17 16:00 87 05/19/17 16:00 40 05/19/17 16:00 98.5 83 24 133/32 99 Mechanical Ventilator 40 05/19/17 15:20 89 32 40 05/19/17 15:00 97 26 124/50 97 Mechanical Ventilator 40 05/19/17 14:00 69 19 109/42 100 Mechanical Ventilator 40 05/19/17 13:00 70 22 115/39 98 Mechanical Ventilator 40 05/19/17 12:40 67 21 40 05/19/17 12:14 101 131/48 05/19/17 12:00 68 05/19/17 12:00 40 05/19/17 12:00 98.5 67 24 136/45 100 Mechanical Ventilator 40 05/19/17 11:06 78 31 40 05/19/17 11:00 66 21 131/48 100 Mechanical Ventilator 40 Objective: Status: awake, bedridden , on vent, responsive Condition: critical, OP with ET in place, intact HEENT: atraumatic Heart: HR/BP stable Abdomen: soft, non-tender, active bowel sounds Extremities: no C/C/E Micro: Microbiology Date/Time Source Procedure Growth Status 05/17/17 13:00 Blood Blood Culture - Preliminary NO GROWTH AFTER 48 HOURS Resulted 05/17/17 12:55 Blood Blood Culture - Preliminary NO GROWTH AFTER 48 HOURS Resulted 05/17/17 13:00 Indwelling Cath Urine Culture - Final Zaria Albicans Complete Critical Care - Subjective ROS Limited/Unobtainable: Yes Interval Events: remains intubated no signs of resp distress ABG stable on current settings unable to wean mild leuk afebrile K stable, low Mg and P Condition: critical EKG Rhythm: Sinus Rhythm FI02: 40 Vent Support Breath Rate: 12 Vent Support Mode: IMV/SIMV Vent Tidal Volume: 500 Sputum Amount: Scant PEEP: 0.0 PIP: 17 Tube Feeding Amount: 45 I&O: Intake and Output 05/19/17 05/20/17 19:00 07:00 Intake Total 2080.000 ml 1140.000 ml Output Total 2005 ml 1325 ml Balance 75.000 ml -185.000 ml Intake Free Water 100 ml 100 ml IV Total 1440.000 ml 450.000 ml Tube Feeding 540 ml 540 ml Other 50 ml Output Urine Total 2005 ml 1325 ml # Bowel Movements 1 2 CXR: 05/20 Little change since previous study. Bilateral airspace and interstitial disease remains. Bilateral pleural effusions. ET-Tube: 7.5 ET Position: 23 Keyshawn ([facility]ment[facility] NP May 20, 2017 10:18
--- NOTE | 2017-05-20 11:41 | Nephrology Progress Note ---
Assessment/Plan Problem List: (1) Acute respiratory failure with hypoxia and hypercapnia (2) Septic shock (3) Renal insufficiency (4) Hypercalcemia Assessment acute renal failure resolving persistant low mag and K and Phos ? CKD underlying Acute respiratory failure septic shock sever Hypercalcemia, corrected for low Albumin HypoAlbuminemia Anemia Dementia Plan Plan: mag and phos supplement as needed monitor serum Ca 2D echo- Left ventricular ejection fraction estimated to be 65-70%. increase feeding Phos K and Mag supplement as needed hemodynamic support Aredia given 05/10 monitor renal parameters serum cortisol level 12 avoid nephrotoxics per orders Subjective ROS Limited/Unobtainable: No Objective Objective Last 24 Hour Vital Signs Date Time Temp Pulse Resp B/P (MAP) Pulse Ox O2 Delivery O2 Flow Rate FiO2 05/20/17 11:37 64 24 40 05/20/17 11:00 72 20 139/50 100 Mechanical Ventilator 40 05/20/17 10:00 69 18 144/67 100 Mechanical Ventilator 40 05/20/17 09:24 142/53 05/20/17 09:23 83 24 40 05/20/17 09:21 100 05/20/17 09:09 72 05/20/17 09:00 85 26 142/52 100 Mechanical Ventilator 40 05/20/17 08:00 98.7 79 29 132/67 100 Mechanical Ventilator 40 05/20/17 08:00 40 05/20/17 08:00 80 05/20/17 07:26 78 23 40 05/20/17 07:00 81 24 100/78 100 Mechanical Ventilator 40 05/20/17 06:10 69 144/67 05/20/17 06:00 69 21 100/78 100 Mechanical Ventilator 40 05/20/17 05:32 71 24 40 05/20/17 05:00 78 26 112/60 100 Mechanical Ventilator 40 05/20/17 04:00 98.6 73 23 112/60 100 Mechanical Ventilator 40 05/20/17 04:00 40 05/20/17 04:00 77 05/20/17 03:06 77 24 40 05/20/17 03:00 76 27 137/52 100 Mechanical Ventilator 40 05/20/17 02:00 90 22 125/48 99 Mechanical Ventilator 40 05/20/17 01:03 86 24 40 05/20/17 01:00 67 19 138/50 100 Mechanical Ventilator 40 05/20/17 00:06 72 140/68 05/20/17 00:00 72 05/20/17 00:00 40 05/20/17 00:00 98.3 71 22 132/55 100 Mechanical Ventilator 40 05/19/17 23:00 82 27 140/68 100 Mechanical Ventilator 40 05/19/17 22:56 83 24 40 05/19/17 22:00 78 23 140/68 100 Mechanical Ventilator 40 05/19/17 21:06 86 22 40 05/19/17 21:00 67 22 128/47 100 Mechanical Ventilator 40 05/19/17 20:00 98.3 79 24 141/69 100 Mechanical Ventilator 40 05/19/17 20:00 40 05/19/17 20:00 87 05/19/17 19:18 84 22 40 05/19/17 19:00 83 27 127/49 98 Mechanical Ventilator 40 05/19/17 18:21 88 151/65 05/19/17 18:00 88 28 151/65 100 Mechanical Ventilator 40 05/19/17 17:02 65 22 40 05/19/17 17:00 64 20 133/42 100 Mechanical Ventilator 40 05/19/17 16:00 87 05/19/17 16:00 40 05/19/17 16:00 98.5 83 24 133/32 99 Mechanical Ventilator 40 05/19/17 15:20 89 32 40 05/19/17 15:00 97 26 124/50 97 Mechanical Ventilator 40 05/19/17 14:00 69 19 109/42 100 Mechanical Ventilator 40 05/19/17 13:00 70 22 115/39 98 Mechanical Ventilator 40 05/19/17 12:40 67 21 40 05/19/17 12:14 101 131/48 05/19/17 12:00 68 05/19/17 12:00 40 05/19/17 12:00 98.5 67 24 136/45 100 Mechanical Ventilator 40 Intake and Output 05/19/17 05/20/17 19:00 07:00 Intake Total 2080.000 ml 1140.000 ml Output Total 2005 ml 1325 ml Balance 75.000 ml -185.000 ml Intake Free Water 100 ml 100 ml IV Total 1440.000 ml 450.000 ml Tube Feeding 540 ml 540 ml Other 50 ml Output Urine Total 2005 ml 1325 ml # Bowel Movements 1 2 Laboratory Tests 05/20/17 04:00: White Blood Count 11.7H, Red Blood Count 2.81L, Hemoglobin 8.5L, Hematocrit 26.7L, Mean Corpuscular Volume 95, Mean Corpuscular Hemoglobin 30.2, Mean Corpuscular Hemoglobin Concent 31.8L, Red Cell Distribution Width 17.6H, Platelet Count 640H, Mean Platelet Volume 4.8L, Neutrophils (%) (Auto) 68.3, Lymphocytes (%) (Auto) 19.9L, Monocytes (%) (Auto) 6.8, Eosinophils (%) (Auto) 4.1H, Basophils (%) (Auto) 0.8, Arterial Blood pH 7.425, Arterial Blood Partial Pressure CO2 29.9L, Arterial Blood Partial Pressure O2 99.4, Arterial Blood HCO3 19.2L, Arterial Blood Oxygen Saturation 97.4, Arterial Blood Base Excess - 4.4, Kelvin Test Positive, Sodium Level 143, Potassium Level 4.3, Chloride Level 115H, Carbon Dioxide Level 21, Anion Gap 7, Blood Urea Nitrogen 2L, Creatinine 0.3L, Estimat Glomerular Filtration Rate , Glucose Level 138H, Calcium Level 7.4L, Phosphorus Level 2.4L, Magnesium Level 1.6L Height (Feet): 5 Height (Inches): 4.00 Weight (Pounds): 175 General Appearance: no apparent distress Objective no other changes ALYSON FLANAGAN May 20, 2017 11:41
[2017-05-20] MEDS ORDERED: Potassium Phosphate 30 MM in NS 275 ML IV ONE (13:00)
--- NOTE | 2017-05-20 18:10 | Infectious Diseases Prog Note ---
Assessment/Plan Assessment/Plan ASSESSMENT AND PLAN: 1. - sepsis, shock, acinetobacter pna/pseudomonas pna, ? pseudomonas sacral wound infection, vent, ? c.diff., leukocytosis, fevers, sirs, bc/uc/influenza negative, vent - chest x-ray worse, leukocytosis better, c.diff. negative, fungal uti - meropenem, vancomycin and amikacin - lotrimin for possible fungal rash, diflucan - check sc, labs, chest x-ray - no pressors - skin care per protocol - plan on trach per RN - icu and vent care - weaning at this time 2. respiratory failure, on vent, icu care 3. Acute kidney injury, elevated creatinine. 4. Hypertension. 5. Diabetes. 6. Asthma. 7. Alzheimer's with some dementia. 8. Cerebrovascular accident. 9. Aspiration risk. 10. Anemia. 11. Seizures. 12. Memory loss. 13. Past medical history as noted. 14. No allergy. 15. Social history is negative. 16. Family history noncontributory. 17. Case discussed with RN. 18. MAR was noted. 19. Continue treatment per primary consultants. 20. Skin care protocol. 21. Possible fungal rash. Continue cream. 22. Questionable drug rash. 23. Continue supportive care. 24. Critical condition. 25. Notes were reviewed. Subjective Constitutional: Reports: other - on vent, alert, responsive , Denies: fever HEENT: Reports: congestion Respiratory: Reports: shortness of breath Cardiovascular: Denies: chest pain Gastrointestinal/Abdominal: Denies: nausea, vomiting, diarrhea Genitourinary: Reports: other - + cota Neurologic: Denies: headache Psychiatric: Denies: depression Skin: Denies: rash Hematologic: Denies: bleeding Musculoskeletal: Denies: pain Allergies: Coded Allergies: NO KNOWN DRUG ALLERGIES (Unverified Allergy, Unknown, 07/29/14) Objective Vital Signs Last 24 Hour Vital Signs Date Time Temp Pulse Resp B/P (MAP) Pulse Ox O2 Delivery O2 Flow Rate FiO2 05/20/17 17:25 78 124/54 05/20/17 17:08 76 19 40 05/20/17 17:00 73 19 124/54 100 Mechanical Ventilator 40 05/20/17 16:00 78 05/20/17 16:00 40 05/20/17 16:00 98.3 73 20 129/53 100 Mechanical Ventilator 40 05/20/17 15:22 101 31 40 05/20/17 15:00 70 20 147/49 100 Mechanical Ventilator 40 05/20/17 14:00 86 27 151/56 98 Mechanical Ventilator 40 05/20/17 13:06 88 25 40 05/20/17 13:00 86 25 130/50 99 Mechanical Ventilator 40 05/20/17 12:20 68 114/54 05/20/17 12:00 69 05/20/17 12:00 98.6 86 25 114/54 100 Mechanical Ventilator 40 05/20/17 11:37 64 24 40 05/20/17 11:35 40 05/20/17 11:00 72 20 139/50 100 Mechanical Ventilator 40 05/20/17 10:00 69 18 144/67 100 Mechanical Ventilator 40 05/20/17 09:30 40 05/20/17 09:24 142/53 05/20/17 09:23 83 24 40 05/20/17 09:21 100 05/20/17 09:09 72 05/20/17 09:00 40 05/20/17 09:00 85 26 142/52 100 Mechanical Ventilator 40 05/20/17 08:00 98.7 79 29 132/67 100 Mechanical Ventilator 40 05/20/17 08:00 40 05/20/17 08:00 80 05/20/17 07:26 78 23 40 05/20/17 07:00 81 24 100/78 100 Mechanical Ventilator 40 05/20/17 06:10 69 144/67 05/20/17 06:00 69 21 100/78 100 Mechanical Ventilator 40 05/20/17 05:32 71 24 40 05/20/17 05:00 78 26 112/60 100 Mechanical Ventilator 40 05/20/17 04:00 98.6 73 23 112/60 100 Mechanical Ventilator 40 05/20/17 04:00 40 05/20/17 04:00 77 05/20/17 03:06 77 24 40 05/20/17 03:00 76 27 137/52 100 Mechanical Ventilator 40 05/20/17 02:00 90 22 125/48 99 Mechanical Ventilator 40 05/20/17 01:03 86 24 40 05/20/17 01:00 67 19 138/50 100 Mechanical Ventilator 40 05/20/17 00:06 72 140/68 05/20/17 00:00 72 05/20/17 00:00 40 05/20/17 00:00 98.3 71 22 132/55 100 Mechanical Ventilator 40 05/19/17 23:00 82 27 140/68 100 Mechanical Ventilator 40 05/19/17 22:56 83 24 40 05/19/17 22:00 78 23 140/68 100 Mechanical Ventilator 40 05/19/17 21:06 86 22 40 05/19/17 21:00 67 22 128/47 100 Mechanical Ventilator 40 05/19/17 20:00 98.3 79 24 141/69 100 Mechanical Ventilator 40 05/19/17 20:00 40 05/19/17 20:00 87 05/19/17 19:18 84 22 40 05/19/17 19:00 83 27 127/49 98 Mechanical Ventilator 40 05/19/17 18:21 88 151/65 Height (Feet): 5 Height (Inches): 4.00 Weight (Pounds): 175 General Appearance: no acute distress HEENT: normocephalic, atraumatic, anicteric, no JVD, other - oral - intubated Respiratory/Chest: crackles/rales, rhonchi - bilaterally Cardiovascular: normal rate, regular rhythm, no gallop/murmur, no JVD Abdomen: normal bowel sounds, soft, non tender, no organomegaly Genitourinary: other - + cota - urine clear Extremities: no cyanosis Skin: no rash Neurologic/Psychiatric: enrollment specialist II-XII grossly normal, alert, responsive Lymphatic: no neck adenopathy Musculoskeletal: no effusion Objective 05/12 - chest x-ray - Findings: ET tube and left subclavian central line unchanged in position. Heart size and mediastinal contours are stable. Persistent interstitial opacification/ edema and patchy bilateral airspace opacities with small right pleural effusion. Interval development of a small left lateral pleural effusion and increased left base/retrocardiac opacities. No pneumothorax.. Gastrostomy tube partially visualized. Impression: Slight interval worsening of aeration with development of small left pleural effusion and increasing left basilar atelectasis/consolidation. Support lines and tubes unchanged 05/14 - chest x-ray: Impression: Interstitial and patchy bilateral airspace opacities with continued improved aeration of the right base compared to the prior exam. Support lines/tubes unchanged in position. 05/16 - chest x-ray - no change (report noted) 05/18 - chest x-ray - Impression: Interval worsening of aeration with increasing right midlung and left basilar opacities. 05/20 - chest x-ray - Impression: Little change since previous study. Bilateral airspace and interstitial disease remains. Bilateral pleural effusions. Labs Test 05/18/17 04:55 05/18/17 08:10 05/19/17 03:30 05/19/17 08:00 White Blood Count 13.4 K/UL (4.8-10.8) 11.5 K/UL (4.8-10.8) Red Blood Count 2.73 M/UL (4.20-5.40) 2.89 M/UL (4.20-5.40) Hemoglobin 8.3 G/DL (12.0-16.0) 8.5 G/DL (12.0-16.0) Hematocrit 25.8 % (37.0-47.0) 27.0 % (37.0-47.0) Mean Corpuscular Volume 94 FL (80-99) 93 FL (80-99) Mean Corpuscular Hemoglobin 30.4 PG (27.0-31.0) 29.6 PG (27.0-31.0) Mean Corpuscular Hemoglobin Concent 32.2 G/DL (32.0-36.0) 31.7 G/DL (32.0-36.0) Red Cell Distribution Width 15.8 % (11.6-14.8) 15.5 % (11.6-14.8) Platelet Count 594 K/UL (150-450) 629 K/UL (150-450) Mean Platelet Volume 5.1 FL (6.5-10.1) 4.9 FL (6.5-10.1) Neutrophils (%) (Auto) 65.2 % (45.0-75.0) 65.0 % (45.0-75.0) Lymphocytes (%) (Auto) 17.1 % (20.0-45.0) 20.6 % (20.0-45.0) Monocytes (%) (Auto) 8.3 % (1.0-10.0) 7.7 % (1.0-10.0) Eosinophils (%) (Auto) 8.6 % (0.0-3.0) 5.9 % (0.0-3.0) Basophils (%) (Auto) 0.7 % (0.0-2.0) 0.8 % (0.0-2.0) Sodium Level 146 MMOL/L (136-145) 145 MMOL/L (136-145) Potassium Level 3.2 MMOL/L (3.5-5.1) 3.4 MMOL/L (3.5-5.1) Chloride Level 117 MMOL/L (98-107) 117 MMOL/L (98-107) Carbon Dioxide Level 21 MMOL/L (21-32) 22 MMOL/L (21-32) Anion Gap 9 mmol/L (5-15) 6 mmol/L (5-15) Blood Urea Nitrogen 3 mg/dL (7-18) 3 mg/dL (7-18) Creatinine 0.4 MG/DL (0.55-1.30) 0.4 MG/DL (0.55-1.30) Estimat Glomerular Filtration Rate mL/min (>60) mL/min (>60) Glucose Level 152 MG/DL (74-106) 157 MG/DL (74-106) Calcium Level 6.8 MG/DL (8.5-10.1) 6.8 MG/DL (8.5-10.1) Phosphorus Level 2.0 MG/DL (2.5-4.9) 1.8 MG/DL (2.5-4.9) Magnesium Level 1.4 MG/DL (1.8-2.4) 1.4 MG/DL (1.8-2.4) Total Bilirubin 0.3 MG/DL (0.2-1.0) 0.3 MG/DL (0.2-1.0) Aspartate Amino Transf (AST/SGOT) 7 U/L (15-37) 7 U/L (15-37) Alanine Aminotransferase (ALT/SGPT) < 6 U/L (12-78) < 6 U/L (12-78) Alkaline Phosphatase 47 U/L (46-116) 47 U/L (46-116) Total Protein 5.2 G/DL (6.4-8.2) 5.3 G/DL (6.4-8.2) Albumin 1.5 G/DL (3.4-5.0) 1.6 G/DL (3.4-5.0) Globulin 3.7 g/dL 3.7 g/dL Albumin/Globulin Ratio 0.4 (1.0-2.7) 0.4 (1.0-2.7) Arterial Blood pH 7.440 (7.350-7.450) Arterial Blood Partial Pressure CO2 28.9 mmHg (35.0-45.0) Arterial Blood Partial Pressure O2 97.4 mmHg (75.0-100.0) Arterial Blood HCO3 19.3 mmol/L (22.0-26.0) Arterial Blood Oxygen Saturation 97.2 % (92.0-98.0) Arterial Blood Base Excess -4.0 Kelvin Test Positive Random Amikacin Level 5.7 MG/L Vancomycin Level Trough 11.5 ug/mL (5.0-12.0) Test 05/19/17 09:30 05/20/17 04:00 05/20/17 16:40 Arterial Blood pH 7.410 (7.350-7.450) 7.425 (7.350-7.450) Arterial Blood Partial Pressure CO2 30.8 mmHg (35.0-45.0) 29.9 mmHg (35.0-45.0) Arterial Blood Partial Pressure O2 93.9 mmHg (75.0-100.0) 99.4 mmHg (75.0-100.0) Arterial Blood HCO3 19.4 mmol/L (22.0-26.0) 19.2 mmol/L (22.0-26.0) Arterial Blood Oxygen Saturation 96.8 % (92.0-98.0) 97.4 % (92.0-98.0) Arterial Blood Base Excess -4.5 -4.4 Kelvin Test Positive Positive White Blood Count 11.7 K/UL (4.8-10.8) Red Blood Count 2.81 M/UL (4.20-5.40) Hemoglobin 8.5 G/DL (12.0-16.0) Hematocrit 26.7 % (37.0-47.0) Mean Corpuscular Volume 95 FL (80-99) Mean Corpuscular Hemoglobin 30.2 PG (27.0-31.0) Mean Corpuscular Hemoglobin Concent 31.8 G/DL (32.0-36.0) Red Cell Distribution Width 17.6 % (11.6-14.8) Platelet Count 640 K/UL (150-450) Mean Platelet Volume 4.8 FL (6.5-10.1) Neutrophils (%) (Auto) 68.3 % (45.0-75.0) Lymphocytes (%) (Auto) 19.9 % (20.0-45.0) Monocytes (%) (Auto) 6.8 % (1.0-10.0) Eosinophils (%) (Auto) 4.1 % (0.0-3.0) Basophils (%) (Auto) 0.8 % (0.0-2.0) Sodium Level 143 MMOL/L (136-145) Potassium Level 4.3 MMOL/L (3.5-5.1) Chloride Level 115 MMOL/L (98-107) Carbon Dioxide Level 21 MMOL/L (21-32) Anion Gap 7 mmol/L (5-15) Blood Urea Nitrogen 2 mg/dL (7-18) Creatinine 0.3 MG/DL (0.55-1.30) Estimat Glomerular Filtration Rate mL/min (>60) Glucose Level 138 MG/DL (74-106) Calcium Level 7.4 MG/DL (8.5-10.1) Phosphorus Level 2.4 MG/DL (2.5-4.9) Magnesium Level 1.6 MG/DL (1.8-2.4) Prothrombin Time 10.8 SEC (9.30-11.50) Prothromb Time International Ratio 1.0 (0.9-1.1) Activated Partial Thromboplast Time 29 SEC (23-33) Laboratory Tests Test 05/20/17 04:00 05/20/17 16:40 White Blood Count 11.7 K/UL (4.8-10.8) H Red Blood Count 2.81 M/UL (4.20-5.40) L Hemoglobin 8.5 G/DL (12.0-16.0) L Hematocrit 26.7 % (37.0-47.0) L Mean Corpuscular Volume 95 FL (80-99) Mean Corpuscular Hemoglobin 30.2 PG (27.0-31.0) Mean Corpuscular Hemoglobin Concent 31.8 G/DL (32.0-36.0) L Red Cell Distribution Width 17.6 % (11.6-14.8) H Platelet Count 640 K/UL (150-450) H Mean Platelet Volume 4.8 FL (6.5-10.1) L Neutrophils (%) (Auto) 68.3 % (45.0-75.0) Lymphocytes (%) (Auto) 19.9 % (20.0-45.0) L Monocytes (%) (Auto) 6.8 % (1.0-10.0) Eosinophils (%) (Auto) 4.1 % (0.0-3.0) H Basophils (%) (Auto) 0.8 % (0.0-2.0) Arterial Blood pH 7.425 (7.350-7.450) Arterial Blood Partial Pressure CO2 29.9 mmHg (35.0-45.0) L Arterial Blood Partial Pressure O2 99.4 mmHg (75.0-100.0) Arterial Blood HCO3 19.2 mmol/L (22.0-26.0) L Arterial Blood Oxygen Saturation 97.4 % (92.0-98.0) Arterial Blood Base Excess -4.4 Kelvin Test Positive Sodium Level 143 MMOL/L (136-145) Potassium Level 4.3 MMOL/L (3.5-5.1) Chloride Level 115 MMOL/L (98-107) H Carbon Dioxide Level 21 MMOL/L (21-32) Anion Gap 7 mmol/L (5-15) Blood Urea Nitrogen 2 mg/dL (7-18) L Creatinine 0.3 MG/DL (0.55-1.30) L Estimat Glomerular Filtration Rate mL/min (>60) Glucose Level 138 MG/DL (74-106) H Calcium Level 7.4 MG/DL (8.5-10.1) L Phosphorus Level 2.4 MG/DL (2.5-4.9) L Magnesium Level 1.6 MG/DL (1.8-2.4) L Prothrombin Time 10.8 SEC (9.30-11.50) Prothromb Time International Ratio 1.0 (0.9-1.1) Activated Partial Thromboplast Time 29 SEC (23-33) Current Medications Medications (Trade) Dose Ordered Sig/Jacque Route PRN Reason Start Time Stop Time Status Last Admin Dose Admin Acetaminophen (Tylenol) 650 mg Q4H PRN GT Mild Pain/Temp > 100.5 05/17/17 12:00 06/16/17 11:59 05/18/17 20:23 Acetaminophen/ Hydrocodone Bitart (Woody 10325) 1 tab Q4H PRN GT Moderate to Severe Pain 05/17/17 17:00 05/24/17 16:59 05/19/17 06:23 Albuterol/ Ipratropium (Albuterol/ Ipratropium) 3 ml Q6H PRN HHN Shortness of Breath 05/19/17 10:45 05/24/17 10:44 Amikacin Protocol (Amikacin pharmacy to dose) 1 ea DAILY PRN MISC Per rx protocol 05/18/17 17:45 06/17/17 17:44 Amikacin Sulfate 750 mg/Sodium Chloride 113 ml @ 220 mls/hr Q24H IV 05/21/17 08:00 05/28/17 07:59 Bisacodyl (Dulcolax) 10 mg DAILYPRN PRN RECTAL Constipation 05/10/17 01:45 06/09/17 01:44 Chlorhexidine Gluconate (Laly-Hex 2%) 1 applic DAILY@1999 TOPIC 05/13/17 20:00 06/12/17 19:59 05/19/17 19:30 Clotrimazole (Lotrimin) 1 applic EVERY 12 HOURS TOPIC 05/10/17 15:00 06/09/17 14:59 05/20/17 11:25 Collagenase (Santyl) 1 applic DAILY TOPIC 05/18/17 09:00 06/17/17 08:59 05/20/17 09:00 Collagenase (Santyl) 1 applic PRN PRN TOPIC soilage 05/17/17 23:15 06/16/17 23:14 Dextrose (Dextrose 50%) STAT PRN IV Hypoglycemia 05/10/17 01:45 06/09/17 01:44 Digoxin (Lanoxin) 0.25 mg DAILY ORAL 05/18/17 09:00 06/17/17 08:59 05/20/17 09:09 Diltiazem HCl (Cardizem) 10 mg Q1HR PRN IVP Heart rate greater than 120. 05/14/17 19:30 06/13/17 19:29 05/17/17 12:16 Diltiazem HCl (Cardizem) 30 mg EVERY 6 HOURS ORAL 05/17/17 18:00 06/16/17 17:59 05/20/17 17:25 Docusate Sodium (Colace) 100 mg EVERY 12 HOURS ORAL 05/11/17 10:00 06/10/17 09:59 05/18/17 20:24 Heparin Sodium (Porcine) (Heparin 5000 units/ml) 5,000 units EVERY 12 HOURS SUBQ 05/10/17 09:00 06/09/17 08:59 05/19/17 20:51 Meropenem 1 gm/ Sodium Chloride 100 ml @ 200 mls/hr Q8HR@0630,1430,2230 IVPB 05/18/17 22:30 05/23/17 22:29 05/20/17 15:04 Norepinephrine Bitartrate 8 mg/ Dextrose 254 ml @ 0 mls/hr Q24H IV 05/10/17 09:30 06/09/17 05:59 05/11/17 11:34 Ondansetron HCl (Zofran) 4 mg Q6H PRN IVP Nausea & Vomiting 05/10/17 01:45 06/09/17 01:44 Pantoprazole (Protonix) 40 mg Q12HR IV 05/10/17 21:00 06/09/17 20:59 05/20/17 08:28 Phosphorus (Phospha 250 Neutral) 500 mg THREE TIMES A DAY NG 05/16/17 13:00 06/15/17 12:59 05/20/17 17:25 Polyethylene Glycol (Miralax) 17 gm DAILYPRN PRN ORAL Constipation 05/10/17 01:45 06/09/17 01:44 Potassium Phosphate 30 mm/ Sodium Chloride 285 ml @ 47.5 mls/hr ONCE ONCE IV 05/20/17 13:00 05/20/17 18:59 05/20/17 13:49 Vancomycin HCl (Vanco rx to dose) 1 ea DAILY PRN MISC Per rx protocol 05/10/17 01:45 06/09/17 01:44 Vancomycin/Sodium Chloride 250 ml @ 166.667 mls/hr Q12HR IVPB 05/16/17 21:00 05/21/17 23:59 05/20/17 08:29 TIERA PRADO May 20, 2017 18:10
--- NOTE | 2017-05-20 18:54 | Internal Med Progress Note ---
Subjective Physician Name ZuleikaPriya hanson Attending Physician María Bustamante Current Medications Medications (Trade) Dose Ordered Sig/Jacque Route PRN Reason Start Time Stop Time Status Last Admin Dose Admin Acetaminophen (Tylenol) 650 mg Q4H PRN GT Mild Pain/Temp > 100.5 05/17/17 12:00 06/16/17 11:59 05/18/17 20:23 Acetaminophen/ Hydrocodone Bitart ([place] 10/325) 1 tab Q4H PRN GT Moderate to Severe Pain 05/17/17 17:00 05/24/17 16:59 05/19/17 06:23 Albuterol/ Ipratropium (Albuterol/ Ipratropium) 3 ml Q6H PRN HHN Shortness of Breath 05/19/17 10:45 05/24/17 10:44 Amikacin Protocol (Amikacin pharmacy to dose) 1 ea DAILY PRN MISC Per rx protocol 05/18/17 17:45 06/17/17 17:44 Amikacin Sulfate 750 mg/Sodium Chloride 113 ml @ 220 mls/hr Q24H IV 05/21/17 08:00 05/28/17 07:59 Bisacodyl (Dulcolax) 10 mg DAILYPRN PRN RECTAL Constipation 05/10/17 01:45 06/09/17 01:44 Chlorhexidine Gluconate (Laly-Hex 2%) 1 applic DAILY@2000 TOPIC 05/13/17 20:00 06/12/17 19:59 05/19/17 19:30 Clotrimazole (Lotrimin) 1 applic EVERY 12 HOURS TOPIC 05/10/17 15:00 06/09/17 14:59 05/20/17 11:25 Collagenase (Santyl) 1 applic DAILY TOPIC 05/18/17 09:00 06/17/17 08:59 05/20/17 09:00 Collagenase (Santyl) 1 applic PRN PRN TOPIC soilage 05/17/17 23:15 06/16/17 23:14 Dextrose (Dextrose 50%) STAT PRN IV Hypoglycemia 05/10/17 01:45 06/09/17 01:44 Digoxin (Lanoxin) 0.25 mg DAILY ORAL 05/18/17 09:00 06/17/17 08:59 05/20/17 09:09 Diltiazem HCl (Cardizem) 10 mg Q1HR PRN IVP Heart rate greater than 120. 05/14/17 19:30 06/13/17 19:29 05/17/17 12:16 Diltiazem HCl (Cardizem) 30 mg EVERY 6 HOURS ORAL 05/17/17 18:00 06/16/17 17:59 05/20/17 17:25 Docusate Sodium (Colace) 100 mg EVERY 12 HOURS ORAL 05/11/17 10:00 06/10/17 09:59 05/18/17 20:24 Fluconazole (Diflucan) 100 mg DAILY ORAL 05/21/17 09:00 05/28/17 08:59 UNV Heparin Sodium (Porcine) (Heparin 5000 units/ml) 5,000 units EVERY 12 HOURS SUBQ 05/10/17 09:00 06/09/17 08:59 05/19/17 20:51 Meropenem 1 gm/ Sodium Chloride 100 ml @ 200 mls/hr Q8HR@0630,1430,2230 IVPB 05/18/17 22:30 05/23/17 22:29 05/20/17 15:04 Norepinephrine Bitartrate 8 mg/ Dextrose 254 ml @ 0 mls/hr Q24H IV 05/10/17 09:30 06/09/17 05:59 05/11/17 11:34 Ondansetron HCl (Zofran) 4 mg Q6H PRN IVP Nausea & Vomiting 05/10/17 01:45 06/09/17 01:44 Pantoprazole (Protonix) 40 mg Q12HR IV 05/10/17 21:00 06/09/17 20:59 05/20/17 08:28 Phosphorus (Phospha 250 Neutral) 500 mg THREE TIMES A DAY NG 05/16/17 13:00 06/15/17 12:59 05/20/17 17:25 Polyethylene Glycol (Miralax) 17 gm DAILYPRN PRN ORAL Constipation 05/10/17 01:45 06/09/17 01:44 Potassium Phosphate 30 mm/ Sodium Chloride 285 ml @ 47.5 mls/hr ONCE ONCE IV 05/20/17 13:00 05/20/17 18:59 05/20/17 13:49 Vancomycin HCl (Vanco rx to dose) 1 ea DAILY PRN MISC Per rx protocol 05/10/17 01:45 06/09/17 01:44 Vancomycin/Sodium Chloride 250 ml @ 166.667 mls/hr Q12HR IVPB 05/20/17 21:00 05/25/17 23:59 UNV Allergies: Coded Allergies: NO KNOWN DRUG ALLERGIES (Unverified Allergy, Unknown, 07/29/14) Objective Last Vital Signs Date Time Temp Pulse Resp B/P (MAP) Pulse Ox O2 Delivery O2 Flow Rate FiO2 05/20/17 18:00 76 20 125/48 100 Mechanical Ventilator 40 05/20/17 16:00 98.3 05/12/17 01:37 15.0 Laboratory Tests Test 05/20/17 04:00 05/20/17 16:40 White Blood Count 11.7 K/UL (4.8-10.8) H Red Blood Count 2.81 M/UL (4.20-5.40) L Hemoglobin 8.5 G/DL (12.0-16.0) L Hematocrit 26.7 % (37.0-47.0) L Mean Corpuscular Volume 95 FL (80-99) Mean Corpuscular Hemoglobin 30.2 PG (27.0-31.0) Mean Corpuscular Hemoglobin Concent 31.8 G/DL (32.0-36.0) L Red Cell Distribution Width 17.6 % (11.6-14.8) H Platelet Count 640 K/UL (150-450) H Mean Platelet Volume 4.8 FL (6.5-10.1) L Neutrophils (%) (Auto) 68.3 % (45.0-75.0) Lymphocytes (%) (Auto) 19.9 % (20.0-45.0) L Monocytes (%) (Auto) 6.8 % (1.0-10.0) Eosinophils (%) (Auto) 4.1 % (0.0-3.0) H Basophils (%) (Auto) 0.8 % (0.0-2.0) Arterial Blood pH 7.425 (7.350-7.450) Arterial Blood Partial Pressure CO2 29.9 mmHg (35.0-45.0) L Arterial Blood Partial Pressure O2 99.4 mmHg (75.0-100.0) Arterial Blood HCO3 19.2 mmol/L (22.0-26.0) L Arterial Blood Oxygen Saturation 97.4 % (92.0-98.0) Arterial Blood Base Excess -4.4 Kelvin Test Positive Sodium Level 143 MMOL/L (136-145) Potassium Level 4.3 MMOL/L (3.5-5.1) Chloride Level 115 MMOL/L (98-107) H Carbon Dioxide Level 21 MMOL/L (21-32) Anion Gap 7 mmol/L (5-15) Blood Urea Nitrogen 2 mg/dL (7-18) L Creatinine 0.3 MG/DL (0.55-1.30) L Estimat Glomerular Filtration Rate mL/min (>60) Glucose Level 138 MG/DL (74-106) H Calcium Level 7.4 MG/DL (8.5-10.1) L Phosphorus Level 2.4 MG/DL (2.5-4.9) L Magnesium Level 1.6 MG/DL (1.8-2.4) L Prothrombin Time 10.8 SEC (9.30-11.50) Prothromb Time International Ratio 1.0 (0.9-1.1) Activated Partial Thromboplast Time 29 SEC (23-33) Intake and Output 05/19/17 05/20/17 19:00 07:00 Intake Total 2080.000 ml 1140.000 ml Output Total 2005 ml 1325 ml Balance 75.000 ml -185.000 ml Intake Free Water 100 ml 100 ml IV Total 1440.000 ml 450.000 ml Tube Feeding 540 ml 540 ml Other 50 ml Output Urine Total 2005 ml 1325 ml # Bowel Movements 1 2 Assessment/Plan Assessment/Plan Assessment/Plan Assessment/Plan Problem List: (1) SVT (supraventricular tachycardia) ICD Codes: I47.1 - SVT (supraventricular tachycardia) SNOMED: 4130645 (2) Septic shock ICD Codes: A41.9 - Sepsis, unspecified organism; R65.21 - Severe sepsis with septic shock SNOMED: 77964298 (3) Acute respiratory failure with hypoxia and hypercapnia ICD Codes: J96.01 - Acute respiratory failure with hypoxia; J96.02 - Acute respiratory failure with hypercapnia SNOMED: 18586111, 13508900, 286933982 (4) Aspiration pneumonia ICD Codes: J69.0 - Pneumonitis due to inhalation of food and vomit SNOMED: 896237364 Qualifiers: Qualified Codes: J69.0 - Pneumonitis due to inhalation of food and vomit (5) Toxic metabolic encephalopathy ICD Codes: G92 - Toxic encephalopathy SNOMED: 874588598 (6) JUUJ (acute kidney injury) ICD Codes: N17.9 - Acute kidney failure, unspecified SNOMED: 47384332 (7) Hyponatremia ICD Codes: E87.1 - Hyponatremia SNOMED: 05110542 (8) Hyperkalemia ICD Codes: E87.5 - Hyperkalemia SNOMED: 04403908 (9) Seizure disorder ICD Codes: G40.909 - Epilepsy, unspecified, not intractable, without status epilepticus SNOMED: 695468720 (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 (11) Dementia ICD Codes: F03.90 - Dementia SNOMED: 41721466 (12) S/P percutaneous endoscopic gastrostomy (PEG) tube placement ICD Codes: Z93.1 - Gastrostomy status SNOMED: 893412915 (13) Hypercalcemia ICD Codes: E83.52 - Hypercalcemia SNOMED: 53275247 (14) Hypophosphatemia ICD Codes: E83.39 - Other disorders of phosphorus metabolism SNOMED: 6435076 (15) Hypomagnesemia ICD Codes: E83.42 - Hypomagnesemia SNOMED: 209912429 (16) Hypokalemia ICD Codes: E87.6 - Hypokalemia SNOMED: 66173147 Status: stable Assessment/Plan Cont ICU care Pulm consulted Cont on vent and wean as tolerated Daily SBTs Now off pressors Cardiology consulted given SVT Digoxin and Diltiazem added ID consulted Cont broad-spectrum abx: vanco, zosyn; cipro added for double pseudomonas coverage s/p flagyl (C. diff neg) F/u cultures Trend CBC Trend ABG Monitor CXR Renal consulted s/p IVFs Replete lytes Trend BMP Cont tube feeds via PEG Cont home meds including Depakote Eliquis on hold Pain control, supportive care, bowel regimen D/w daughter regarding need for tracheostomy and she is now agreeable to proceed. Surgery consulted w/ likely plan for procedure on 05/21 DVT ppx: SCDs, HSQ GI ppx: PPI Dispo: pending further stabilization, cont ICU care FULL CODE per discussion w/ daughter At the time of my involvement, the patient's condition was critical with high potential for and/or physiologic deterioration secondary to acute respiratory failure 2/2 aspiration pneumonia, sepsis, acute encephalopathy as delineated in the note above. On the above date of service, I spent a total of 36 minutes in the ICU evaluating, managing, and providing critical care services to this patient, including time spent documenting these activities, counseling patient/family, and coordinating care. Critical care services performed include: Telemetry Review Hemodynamic measurement interpretation Laboratory data review and interpretation Ventilator setting review, management, and adjustment Discussion of care plans with patient, family, and/or surrogate decision makers Discussion of patient's care with primary medical team, surgical team, and/or consulting service Decision to obtain further radiologic evaluation, after consideration of risk/ benefit ratio Decision to perform invasive procedure, after consideration of risk/benefit ratio Review of most recent microbiology results with assessment and modification of antimicrobial coverage Discussion of patient's code status and further advancement towards the ultimate goals of care Plan outlined above discussed with patient/family, 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 D/w pulm re weaning Dw cardiology re SVT D/w pt's daughter regarding plan of care, need for tracheostomy D/w ID re abx D/w surgery re tracheostomy Time of note may not reflect time of encounter Subjective Subjective Date patient seen: May 18, 2017 Time patient seen: 12:51 ROS Limited/Unobtainable: Yes Allergies: Coded Allergies: NO KNOWN DRUG ALLERGIES (Unverified Allergy, Unknown, 07/29/14) Subjective No acute o/n events Now off pressors Has failed multiple SBTs. Currenty on SIMV. Discussed with daughter regarding need for tracheostomy--she is hesitant but is agreeable to proceeding if absolutely necessary and if it can be reversed at some point. Pt intubated, sedated but arousable to voice Unable to obtain ROS as pt sedated and also w/ dementia Objective Objective Last 24 Hour Vital Signs Date Time Temp Pulse Resp B/P (MAP) Pulse Ox O2 Delivery O2 Flow Rate FiO2 05/18/17 12:27 82 144/64 05/18/17 12:00 98.6 81 27 144/64 100 Mechanical Ventilator 40 05/18/17 12:00 40 05/18/17 12:00 89 1/19/18 11:29 88 3 40 18 11:00 84 31 139/53 100 Mechanical Ventilator 40 18 10:17 100 18 10:00 75 23 110/46 100 Mechanical Ventilator 40 18 09:32 73 05/18/18 09:30 110/46 18 09:22 73 23 40 18 09:00 75 24 120/53 100 Mechanical Ventilator 40 18 08:00 40 05/18/17 08:00 98.7 83 19 106/47 99 Mechanical Ventilator 40 18 08:00 81 18 07:29 84 29 40 05/18/17 07:00 79 24 122/53 99 Mechanical Ventilator 40 05/18/17 06:00 80 25 115/46 100 Mechanical Ventilator 40 18 05:31 77 120/35 05/18/17 05:14 81 28 40 05/18/17 05:00 81 26 120/35 100 Mechanical Ventilator 40 05/18/17 04:00 98.4 70 26 112/44 100 Mechanical Ventilator 40 05/18/17 04:00 40 05/18/17 03:46 80 18 03:05 83 25 40 05/18/17 03:00 89 32 127/77 100 Mechanical Ventilator 40 05/18/17 02:00 86 30 144/54 100 Mechanical Ventilator 40 05/18/17 01:03 86 29 40 05/18/17 01:00 86 29 112/47 98 Mechanical Ventilator 40 05/18/17 00:00 99.2 76 25 115/46 100 Mechanical Ventilator 40 05/18/17 00:00 40 18 23:57 73 118/43 05/17/18 23:31 67 05/17/18 23:00 75 23 120/38 100 Mechanical Ventilator 40 18 22:57 80 21 40 05/17/18 22:00 86 29 120/47 98 Mechanical Ventilator 40 05/17/18 21:15 84 29 40 05/17/18 21:00 68 20 101/43 99 Mechanical Ventilator 40 05/17/18 20:00 40 05/17/18 20:00 99.5 84 30 116/51 98 Mechanical Ventilator 40 18/18 19:24 75 26 40 18/18 19:20 69 05/17/17 19:00 73 19 105/39 98 Mechanical Ventilator 40 05/17/17 18:00 86 20 120/42 97 Mechanical Ventilator 40 05/17/17 17:48 78 104/31 05/17/17 17:00 82 20 104/31 100 Mechanical Ventilator 40 05/17/17 16:57 66 23 40 05/17/17 16:00 40 05/17/17 16:00 76 05/17/17 16:00 98.5 66 19 118/42 100 Mechanical Ventilator 40 05/17/17 15:00 76 20 118/46 100 Mechanical Ventilator 40 05/17/17 15:00 70 21 40 05/17/17 14:00 81 22 115/45 100 Mechanical Ventilator 40 05/17/17 13:15 81 32 40 05/17/17 13:00 73 28 118/46 100 Mechanical Ventilator 40 05/17/17 13:00 40 Intake and Output 05/17/17 05/18/17 19:00 07:00 Intake Total 1733.2 ml 1580.0 ml Output Total 570 ml 1270 ml Balance 1163.2 ml 310.0 ml Intake Free Water 150 ml IV Total 1043.2 ml 1000.0 ml Tube Feeding 540 ml 540 ml Other 40 ml Output Urine Total 570 ml 1270 ml # Bowel Movements 4 4 Laboratory Tests 05/18/17 04:55: White Blood Count 13.4H, Red Blood Count 2.73L, Hemoglobin 8.3L, Hematocrit 25.8L, Mean Corpuscular Volume 94, Mean Corpuscular Hemoglobin 30.4, Mean Corpuscular Hemoglobin Concent 32.2, Red Cell Distribution Width 15.8H, Platelet Count 594H, Mean Platelet Volume 5.1L, Neutrophils (%) (Auto) 65.2, Lymphocytes (%) (Auto) 17.1L, Monocytes (%) (Auto) 8.3, Eosinophils (%) (Auto) 8.6H, Basophils (%) (Auto) 0.7, Sodium Level 146H, Potassium Level 3.2L, Chloride Level 117H, Carbon Dioxide Level 21, Anion Gap 9, Blood Urea Nitrogen 3L, Creatinine 0.4L, Estimat Glomerular Filtration Rate , Glucose Level 152H, Calcium Level 6.8L, Phosphorus Level 2.0L, Magnesium Level 1.4L, Total Bilirubin 0.3, Aspartate Amino Transf (AST/SGOT) 7L, Alanine Aminotransferase ( ALT/SGPT) < 6L, Alkaline Phosphatase 47, Total Protein 5.2L, Albumin 1.5L, Globulin 3.7, Albumin/Globulin Ratio 0.4L 05/18/17 08:10: Arterial Blood pH 7.440, Arterial Blood Partial Pressure CO2 28.9L, Arterial Blood Partial Pressure O2 97.4, Arterial Blood HCO3 19.3L, Arterial Blood Oxygen Saturation 97.2, Arterial Blood Base Excess -4.0, Kelvin Test Positive Height (Feet): 5 Height (Inches): 4.00 Weight (Pounds): 172 Objective General: intubated, sedated, arousable to voice Head: normocephalic, without obvious abnormality, atraumatic Eyes: conjunctivae/corneas clear. PERRL, EOM's intact Throat: lips, mucosa, and tongue normal. MMM Neck: supple, symmetrical, trachea midline, and no JVD Lungs: +rhonchi b/l Heart: regular rate and rhythm, S1, S2 normal, no murmur, click, rub or gallop Abdomen: soft, non-tender, non-distended, bowel sounds normal; Extremities: extremities normal, atraumatic, no cyanosis, +BLE edema Pulses: 2+ and symmetric Skin: skin color, texture, turgor normal; no rashes or lesions Neurologic: moving all extremities Priya Clark M.D. May 20, 2017 18:54
[2017-05-20] MEDS: Dyna-Hex 2% Top Sol 2oz TOPIC SCH (21:41)
[2017-05-20] MEDS: Fluconazole 100mg tab ORAL SCH (21:42)
[2017-05-21] VITALS (23 sets, daily range): BP systolic 110–151; BP diastolic 44–90
[2017-05-21] MEDS: dilTIAZem HCl 30mg tab ORAL SCH ×5 (00:09→23:48)
[2017-05-21 04:43] LABS: BASOPHILS % (AUTO) 0.8 % (0.0-2.0); EOSINOPHILS % (AUTO) 4.1 % (0.0-3.0); HEMATOCRIT 26.5 % (37.0-47.0); HEMOGLOBIN 8.5 G/DL (12.0-16.0); LYMPHOCYTES % (AUTO) 22.2 % (20.0-45.0); MEAN CORPUSCULAR VOLUME 95 FL (80-99); MONOCYTES % (AUTO) 7.6 % (1.0-10.0); NEUTROPHILS % (AUTO) 65.4 % (45.0-75.0); PLATELET COUNT 642 K/UL (150-450); RED CELL DISTRIBUTION WIDTH 17.1 % (11.6-14.8); WHITE BLOOD COUNT 9.8 K/UL (4.8-10.8)
[2017-05-21 04:50] LABS: ANION GAP 6 mmol/L (5-15); BLOOD UREA NITROGEN 3 mg/dL (7-18); CALCIUM 7.9 MG/DL (8.5-10.1); CARBON DIOXIDE 23 MMOL/L (21-32); CHLORIDE 113 MMOL/L (98-107); CREATININE 0.4 MG/DL (0.55-1.30); POTASSIUM 4.2 MMOL/L (3.5-5.1); SODIUM 142 MMOL/L (136-145)
[2017-05-21] MEDS: Amikacin 750 MG in NS 110 ML IV SCH (08:17)
[2017-05-21] MEDS: Pantoprazole Inj IV SCH ×2 (08:37→20:51)
[2017-05-21] MEDS: Phospha 250 Neutral tab NG SCH ×3 (08:38→18:31)
[2017-05-21] MEDS: Heparin 5000 units/ml inj SUBQ SCH ×2 (08:38→20:54)
[2017-05-21] MEDS: Docusate 100mg/10ml Liq ORAL SCH ×2 (08:38→20:51)
[2017-05-21 10:11] LABS: ALANINE AMINOTRANSFERASE 8 U/L (12-78); ALBUMIN 1.6 G/DL (3.4-5.0); ALKALINE PHOSPHATASE 54 U/L (46-116); ASPARTATE AMINO TRANSFERASE 11 U/L (15-37); BILIRUBIN,DIRECT < 0.1 MG/DL (0.0-0.3); BILIRUBIN,TOTAL 0.2 MG/DL (0.2-1.0); PHOSPHORUS 2.4 MG/DL (2.5-4.9)
--- NOTE | 2017-05-21 11:06 | Pulmonolgy Critical Care Note ---
Critical Care - Asmt/Plan Problems: (1) Acute respiratory failure with hypoxia and hypercapnia (2) Acute encephalopathy (3) Sepsis (4) Aspiration pneumonia Respiratory: adjust tidal volume, monitor respiratory rate, adjust FIO2, other - for trachesotomy today Cardiac: continue to monitor HR/BP Renal: F/U I&O, keep IV fluid, check electrolytes Gastrointestinal: hold feedings Endocrine: monitor blood sugar, continue sliding scale insulin Hematologic: monitor H/H, transfuse if hgb<8.5 Neurologic: PRN Morphine, keep patient comfortable Prophylaxis: Protonix, Heparin Notes Reviewed: adult neuropsychologist, cardio Critical Care - Objective Last 24 Hour Vital Signs Date Time Temp Pulse Resp B/P (MAP) Pulse Ox O2 Delivery O2 Flow Rate FiO2 05/21/17 10:13 89 27 40 05/21/17 10:00 83 25 141/57 100 Mechanical Ventilator 40 05/21/17 09:46 100 05/21/17 09:40 66 17 40 05/21/17 09:00 67 18 134/52 100 Mechanical Ventilator 40 05/21/17 08:39 151/56 05/21/17 08:38 70 05/21/17 08:00 40 05/21/17 08:00 98.2 67 18 151/56 100 Mechanical Ventilator 40 05/21/17 08:00 64 05/21/17 07:08 83 25 40 05/21/17 07:00 76 22 132/69 100 Mechanical Ventilator 40 05/21/17 06:00 66 140/52 05/21/17 06:00 66 19 135/62 100 Mechanical Ventilator 40 05/21/17 05:25 87 24 40 05/21/17 05:00 78 19 140/52 100 Mechanical Ventilator 40 05/21/17 04:00 67 05/21/17 04:00 40 05/21/17 04:00 98.0 67 19 140/90 100 Mechanical Ventilator 40 05/21/17 03:00 86 19 135/62 100 Mechanical Ventilator 40 05/21/17 02:55 80 26 40 05/21/17 02:00 70 19 134/74 100 Mechanical Ventilator 40 05/21/17 01:16 69 19 40 05/21/17 01:00 71 19 121/44 100 Mechanical Ventilator 40 05/21/17 00:09 69 136/48 05/21/17 00:00 68 05/21/17 00:00 40 1/22/18 00:00 98.0 69 18 121/59 100 Mechanical Ventilator 40 05/20/17 23:20 84 24 40 05/20/17 23:00 84 29 118/59 99 Mechanical Ventilator 40 05/20/17 22:00 94 28 141/63 99 Mechanical Ventilator 40 05/20/17 21:10 97 30 40 05/20/17 21:00 90 26 153/69 99 Mechanical Ventilator 40 05/20/17 20:00 98.0 76 25 147/64 100 Mechanical Ventilator 40 05/20/17 20:00 40 05/20/17 20:00 76 05/20/17 19:21 90 30 40 05/20/17 19:00 86 29 118/59 100 Mechanical Ventilator 40 05/20/17 18:00 76 20 125/48 100 Mechanical Ventilator 40 05/20/17 17:25 78 124/54 05/20/17 17:08 76 19 40 05/20/17 17:00 73 19 124/54 100 Mechanical Ventilator 40 05/20/17 16:00 78 05/20/17 16:00 40 05/20/17 16:00 98.3 73 20 129/53 100 Mechanical Ventilator 40 05/20/17 15:22 101 31 40 05/20/17 15:00 70 20 147/49 100 Mechanical Ventilator 40 05/20/17 14:00 86 27 151/56 98 Mechanical Ventilator 40 05/20/17 13:06 88 25 40 05/20/17 13:00 86 25 130/50 99 Mechanical Ventilator 40 05/20/17 12:20 68 114/54 05/20/17 12:00 69 05/20/17 12:00 98.6 86 25 114/54 100 Mechanical Ventilator 40 05/20/17 11:37 64 24 40 05/20/17 11:35 40 Status: awake Condition: critical HEENT: atraumatic Neck: full ROM Heart: HR/BP stable, HR/BP unstable Abdomen: soft, active bowel sounds Extremities: no C/C/E, edema Critical Care - Subjective ROS Limited/Unobtainable: Yes ICU Day: 12 Intubation Day: 12 Condition: critical EKG Rhythm: Sinus Rhythm FI02: 40 Vent Support Breath Rate: 10 Vent Support Mode: CPAP Vent Tidal Volume: 500 Sputum Amount: Moderate PEEP: 0.0 PIP: 23 Tube Feeding Amount: 0 I&O: Intake and Output 05/20/17 05/21/17 19:00 07:00 Intake Total 1473 ml 1190.000 ml Output Total 2985 ml 4215 ml Balance -1512 ml -3025.000 ml Intake Free Water 150 ml IV Total 783 ml 450.000 ml Tube Feeding 540 ml 540 ml Other 150 ml 50 ml Output Urine Total 2985 ml 4215 ml # Bowel Movements 1 CXR: ET in good position ET-Tube: 7.5 ET Position: 23 Labs: Laboratory Tests Test 05/20/17 16:40 05/21/17 04:00 05/21/17 10:48 Prothrombin Time 10.8 SEC (9.30-11.50) Prothromb Time International Ratio 1.0 (0.9-1.1) Activated Partial Thromboplast Time 29 SEC (23-33) White Blood Count 9.8 K/UL (4.8-10.8) Red Blood Count 2.80 M/UL (4.20-5.40) L Hemoglobin 8.5 G/DL (12.0-16.0) L Hematocrit 26.5 % (37.0-47.0) L Mean Corpuscular Volume 95 FL (80-99) Mean Corpuscular Hemoglobin 30.2 PG (27.0-31.0) Mean Corpuscular Hemoglobin Concent 31.9 G/DL (32.0-36.0) L Red Cell Distribution Width 17.1 % (11.6-14.8) H Platelet Count 642 K/UL (150-450) H Mean Platelet Volume 5.0 FL (6.5-10.1) L Neutrophils (%) (Auto) 65.4 % (45.0-75.0) Lymphocytes (%) (Auto) 22.2 % (20.0-45.0) Monocytes (%) (Auto) 7.6 % (1.0-10.0) Eosinophils (%) (Auto) 4.1 % (0.0-3.0) H Basophils (%) (Auto) 0.8 % (0.0-2.0) Sodium Level 142 MMOL/L (136-145) Potassium Level 4.2 MMOL/L (3.5-5.1) Chloride Level 113 MMOL/L (98-107) H Carbon Dioxide Level 23 MMOL/L (21-32) Anion Gap 6 mmol/L (5-15) Blood Urea Nitrogen 3 mg/dL (7-18) L Creatinine 0.4 MG/DL (0.55-1.30) L Estimat Glomerular Filtration Rate mL/min (>60) Glucose Level 126 MG/DL (74-106) H Calcium Level 7.9 MG/DL (8.5-10.1) L Phosphorus Level 2.4 MG/DL (2.5-4.9) L Magnesium Level 1.5 MG/DL (1.8-2.4) L Total Bilirubin 0.2 MG/DL (0.2-1.0) Direct Bilirubin < 0.1 MG/DL (0.0-0.3) Aspartate Amino Transf (AST/SGOT) 11 U/L (15-37) L Alanine Aminotransferase (ALT/SGPT) 8 U/L (12-78) L Alkaline Phosphatase 54 U/L (46-116) Total Protein 5.5 G/DL (6.4-8.2) L Albumin 1.6 G/DL (3.4-5.0) L Arterial Blood pH 7.382 (7.350-7.450) Arterial Blood Partial Pressure CO2 35.6 mmHg (35.0-45.0) Arterial Blood Partial Pressure O2 93.6 mmHg (75.0-100.0) Arterial Blood HCO3 20.7 mmol/L (22.0-26.0) L Arterial Blood Oxygen Saturation 96.7 % (92.0-98.0) Arterial Blood Base Excess -3.9 Kelvin Test Positive DWAYNE CHERY May 21, 2017 11:06
--- NOTE | 2017-05-21 12:32 | General Progress Note ---
Assessment/Plan Problem List: (1) SVT (supraventricular tachycardia) ICD Codes: I47.1 - SVT (supraventricular tachycardia) SNOMED: 7525545 (2) Septic shock ICD Codes: A41.9 - Sepsis, unspecified organism; R65.21 - Severe sepsis with septic shock SNOMED: 54977361 (3) Acute respiratory failure with hypoxia and hypercapnia ICD Codes: J96.01 - Acute respiratory failure with hypoxia; J96.02 - Acute respiratory failure with hypercapnia SNOMED: 99658522, 78167731, 026150375 (4) Aspiration pneumonia ICD Codes: J69.0 - Pneumonitis due to inhalation of food and vomit SNOMED: 245280289 Qualifiers: Qualified Codes: J69.0 - Pneumonitis due to inhalation of food and vomit (5) Toxic metabolic encephalopathy ICD Codes: G92 - Toxic encephalopathy SNOMED: 566385865 (6) JUJU (acute kidney injury) ICD Codes: N17.9 - Acute kidney failure, unspecified SNOMED: 72050283 (7) Hyponatremia ICD Codes: E87.1 - Hyponatremia SNOMED: 94698434 (8) Hyperkalemia ICD Codes: E87.5 - Hyperkalemia SNOMED: 74375821 (9) Seizure disorder ICD Codes: G40.909 - Epilepsy, unspecified, not intractable, without status epilepticus SNOMED: 458819467 (10) DVT/PE (11) Dementia ICD Codes: F03.90 - Dementia SNOMED: 36423179 (12) S/P percutaneous endoscopic gastrostomy (PEG) tube placement ICD Codes: Z93.1 - Gastrostomy status SNOMED: 397194016 (13) Hypercalcemia ICD Codes: E83.52 - Hypercalcemia SNOMED: 81969008 (14) Hypophosphatemia ICD Codes: E83.39 - Other disorders of phosphorus metabolism SNOMED: 9669713 (15) Hypomagnesemia ICD Codes: E83.42 - Hypomagnesemia SNOMED: 918968918 (16) Hypokalemia ICD Codes: E87.6 - Hypokalemia SNOMED: 92765012 Status: stable Assessment/Plan Cont ICU care Pulm consulted Cont on vent and wean as tolerated. Difficulty weaning. Surgery consulted w/ plan for tracheostomy today Daily SBTs Now off pressors Cardiology consulted given SVT Digoxin and Diltiazem added ID consulted Cont broad-spectrum abx: vanco, zosyn; cipro added for double pseudomonas coverage s/p flagyl (C. diff neg) F/u cultures Trend CBC Trend ABG Monitor CXR Renal consulted s/p IVFs Replete lytes Trend BMP Cont tube feeds via PEG Cont home meds including Depakote Eliquis on hold Pain control, supportive care, bowel regimen D/w daughter regarding need for tracheostomy and she is now agreeable to proceed. Surgery consulted w/ likely plan for procedure on 05/21 DVT ppx: SCDs, HSQ GI ppx: PPI Dispo: pending further stabilization, cont ICU care FULL CODE per discussion w/ daughter At the time of my involvement, the patient's condition was critical with high potential for and/or physiologic deterioration secondary to acute respiratory failure 2/2 aspiration pneumonia, sepsis, acute encephalopathy as delineated in the note above. On the above date of service, I spent a total of 36 minutes in the ICU evaluating, managing, and providing critical care services to this patient, including time spent documenting these activities, counseling patient/family, and coordinating care. Critical care services performed include: Telemetry Review Hemodynamic measurement interpretation Laboratory data review and interpretation Ventilator setting review, management, and adjustment Discussion of care plans with patient, family, and/or surrogate decision makers Discussion of patient's care with primary medical team, surgical team, and/or consulting service Decision to obtain further radiologic evaluation, after consideration of risk/ benefit ratio Decision to perform invasive procedure, after consideration of risk/benefit ratio Review of most recent microbiology results with assessment and modification of antimicrobial coverage Discussion of patient's code status and further advancement towards the ultimate goals of care Plan outlined above discussed with patient/family, [employer], 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 D/w pulm re weaning Dw cardiology re SVT D/w pt's daughter regarding plan of care, need for tracheostomy D/w ID re abx D/w surgery re tracheostomy Time of note may not reflect time of encounter Subjective Date patient seen: May 21, 2017 Time patient seen: 12:32 ROS Limited/Unobtainable: Yes Allergies: Coded Allergies: NO KNOWN DRUG ALLERGIES (Unverified Allergy, Unknown, 07/29/14) Subjective No acute o/n events Now off pressors Has failed multiple SBTs. Currenty on SIMV. Discussed with daughter regarding need for tracheostomy and she now agrees to proceed Possible plan for trach today Pt intubated, sedated but arousable to voice Unable to obtain ROS as pt sedated and also w/ dementia Objective Last 24 Hour Vital Signs Date Time Temp Pulse Resp B/P (MAP) Pulse Ox O2 Delivery O2 Flow Rate FiO2 05/21/17 12:25 79 141/67 05/21/17 12:17 99 29 40 05/21/17 11:24 77 25 40 05/21/17 11:00 99.0 80 27 144/66 100 Mechanical Ventilator 40 05/21/17 10:13 89 27 40 05/21/17 10:00 83 25 141/57 100 Mechanical Ventilator 40 05/21/17 09:46 100 05/21/17 09:40 66 17 40 05/21/17 09:00 67 18 134/52 100 Mechanical Ventilator 40 05/21/17 08:39 151/56 05/21/17 08:38 70 05/21/17 08:00 40 05/21/17 08:00 98.2 67 18 151/56 100 Mechanical Ventilator 40 05/21/17 08:00 64 05/21/17 07:08 83 25 40 05/21/17 07:00 76 22 132/69 100 Mechanical Ventilator 40 05/21/17 06:00 66 140/52 05/21/17 06:00 66 19 135/62 100 Mechanical Ventilator 40 05/21/17 05:25 87 24 40 05/21/17 05:00 78 19 140/52 100 Mechanical Ventilator 40 05/21/17 04:00 67 05/21/17 04:00 40 05/21/17 04:00 98.0 67 19 140/90 100 Mechanical Ventilator 40 05/21/17 03:00 86 19 135/62 100 Mechanical Ventilator 40 05/21/17 02:55 80 26 40 05/21/17 02:00 70 19 134/74 100 Mechanical Ventilator 40 05/21/17 01:16 69 19 40 05/21/17 01:00 71 19 121/44 100 Mechanical Ventilator 40 05/21/17 00:09 69 136/48 05/21/17 00:00 68 05/21/17 00:00 40 05/21/17 00:00 98.0 69 18 121/59 100 Mechanical Ventilator 40 05/20/17 23:20 84 24 40 05/20/17 23:00 84 29 118/59 99 Mechanical Ventilator 40 05/20/17 22:00 94 28 141/63 99 Mechanical Ventilator 40 05/20/17 21:10 97 30 40 05/20/17 21:00 90 26 153/69 99 Mechanical Ventilator 40 05/20/17 20:00 98.0 76 25 147/64 100 Mechanical Ventilator 40 05/20/17 20:00 40 05/20/17 20:00 76 05/20/17 19:21 90 30 40 05/20/17 19:00 86 29 118/59 100 Mechanical Ventilator 40 05/20/17 18:00 76 20 125/48 100 Mechanical Ventilator 40 05/20/17 17:25 78 124/54 05/20/17 17:08 76 19 40 05/20/17 17:00 73 19 124/54 100 Mechanical Ventilator 40 05/20/17 16:00 78 05/20/17 16:00 40 05/20/17 16:00 98.3 73 20 129/53 100 Mechanical Ventilator 40 05/20/17 15:22 101 31 40 05/20/17 15:00 70 20 147/49 100 Mechanical Ventilator 40 05/20/17 14:00 86 27 151/56 98 Mechanical Ventilator 40 05/20/17 13:06 88 25 40 05/20/17 13:00 86 25 130/50 99 Mechanical Ventilator 40 Intake and Output 05/20/17 05/21/17 19:00 07:00 Intake Total 1473 ml 1190.000 ml Output Total 2985 ml 4215 ml Balance -1512 ml -3025.000 ml Intake Free Water 150 ml IV Total 783 ml 450.000 ml Tube Feeding 540 ml 540 ml Other 150 ml 50 ml Output Urine Total 2985 ml 4215 ml # Bowel Movements 1 Laboratory Tests 05/20/17 16:40: Prothrombin Time 10.8, Prothromb Time International Ratio 1.0, Activated Partial Thromboplast Time 29 05/21/17 04:00: White Blood Count 9.8, Red Blood Count 2.80L, Hemoglobin 8.5L, Hematocrit 26.5L , Mean Corpuscular Volume 95, Mean Corpuscular Hemoglobin 30.2, Mean Corpuscular Hemoglobin Concent 31.9L, Red Cell Distribution Width 17.1H, Platelet Count 642H, Mean Platelet Volume 5.0L, Neutrophils (%) (Auto) 65.4, Lymphocytes (%) (Auto) 22.2, Monocytes (%) (Auto) 7.6, Eosinophils (%) (Auto) 4.1H, Basophils (%) (Auto) 0.8, Sodium Level 142, Potassium Level 4.2, Chloride Level 113H, Carbon Dioxide Level 23, Anion Gap 6, Blood Urea Nitrogen 3L, Creatinine 0.4L, Estimat Glomerular Filtration Rate , Glucose Level 126H, Calcium Level 7.9L, Phosphorus Level 2.4L, Magnesium Level 1.5L, Total Bilirubin 0.2, Direct Bilirubin < 0.1, Aspartate Amino Transf (AST/SGOT) 11L, Alanine Aminotransferase (ALT/SGPT) 8L, Alkaline Phosphatase 54, Total Protein 5.5L, Albumin 1.6L 05/21/17 10:48: Arterial Blood pH 7.382, Arterial Blood Partial Pressure CO2 35.6, Arterial Blood Partial Pressure O2 93.6, Arterial Blood HCO3 20.7L, Arterial Blood Oxygen Saturation 96.7, Arterial Blood Base Excess -3.9, Kelvin Test Positive Height (Feet): 5 Height (Inches): 4.00 Weight (Pounds): 173 Objective General: intubated, sedated, arousable to voice Head: normocephalic, without obvious abnormality, atraumatic Eyes: conjunctivae/corneas clear. PERRL, EOM's intact Throat: lips, mucosa, and tongue normal. MMM Neck: supple, symmetrical, trachea midline, and no JVD Lungs: +rhonchi b/l Heart: regular rate and rhythm, S1, S2 normal, no murmur, click, rub or gallop Abdomen: soft, non-tender, non-distended, bowel sounds normal; Extremities: extremities normal, atraumatic, no cyanosis, +BLE edema Pulses: 2+ and symmetric Skin: skin color, texture, turgor normal; no rashes or lesions Neurologic: moving all extremities Prachi Mejia M.D. May 21, 2017 12:32
[2017-05-21] MEDS: Vancomycin 750mg/NS 250ml 250 ML IVPB SCH ×2 (13:00→20:52)
[2017-05-21] MEDS ORDERED: Lidocaine 1% 10mg/ml/Epi 0.005mg/ml 30ml vial INJ ONE (13:21)
--- NOTE | 2017-05-21 13:35 | Diagnostic Imaging Report ---
Indication: Shortness of breath Technique: XRAY Chest 1v Comparison: 05/20/2017 Findings: ET tube and left subclavian line unchanged in position. Heart size and mediastinal contours are stable. Persistent interstitial/opacification. There are patchy bilateral airspace opacities. There is small interval increase in bilateral pleural effusions exam bibasilar atelectasis/consolidation. There is osteopenia, scoliosis and degenerative change of the spine. Evidence of prior kyphoplasty/vertebroplasty. Gastrostomy tube noted. Impression: Persistent interstitial opacification/edema, patchy bilateral airspace opacities and bilateral pleural effusions. Pleural effusions are slightly increased compared to one day prior.
--- NOTE | 2017-05-21 13:56 | Pre-Procedure Note/Attestation ---
Pre-Procedure Note/Attestation Complete Prior to Procedure Planned Procedure: not applicable Procedure Narrative: tracheostomy Indications for Procedure Pre-Operative Diagnosis: septic shock / severe sepsis requiring prolonged ventilation and ventilatory support Attestation I attest that I discussed the nature of the procedure; its benefits; risks and complications; and alternatives (and the risks and benefits of such alternatives ), prior to the procedure, with the patient (or the patient's legal arborist representative). I attest that, if there was a reasonable possibility of needing a blood transfusion, the patient (or the patient's legal arborist representative) was given the [facility] standardized written summary, pursuant to the Keny Edith Blood Safety Act ([place] Health and Safety Code # 1645, as amended). I attest that I re-evaluated the patient just prior to the surgery and that there has been no change in the patient's H&P, except as documented below: Bert Mauro May 21, 2017 13:56
--- NOTE | 2017-05-21 15:05 | Nephrology Progress Note ---
Assessment/Plan Problem List: (1) Acute respiratory failure with hypoxia and hypercapnia (2) Septic shock (3) Renal insufficiency (4) Hypercalcemia Assessment acute renal failure resolving persistant low mag and K and Phos ? CKD underlying Acute respiratory failure septic shock sever Hypercalcemia, corrected for low Albumin HypoAlbuminemia Anemia Dementia Plan Plan: mag and phos supplement as needed monitor serum Ca 2D echo- Left ventricular ejection fraction estimated to be 65-70%. increase feeding Phos K and Mag supplement as needed hemodynamic support Aredia given 05/10 monitor renal parameters serum cortisol level 12 avoid nephrotoxics per orders Subjective ROS Limited/Unobtainable: Yes Objective Objective Last 24 Hour Vital Signs Date Time Temp Pulse Resp B/P (MAP) Pulse Ox O2 Delivery O2 Flow Rate FiO2 05/21/17 13:29 83 18 40 05/21/17 13:00 75 21 132/48 100 Mechanical Ventilator 40 05/21/17 12:25 79 141/67 05/21/17 12:17 99 29 40 05/21/17 12:00 79 26 141/67 100 Mechanical Ventilator 40 05/21/17 12:00 86 05/21/17 12:00 40 05/21/17 11:24 77 25 40 05/21/17 11:00 99.0 80 27 144/66 100 Mechanical Ventilator 40 05/21/17 10:13 89 27 40 05/21/17 10:00 83 25 141/57 100 Mechanical Ventilator 40 05/21/17 10:00 40 05/21/17 09:46 100 05/21/17 09:40 66 17 40 05/21/17 09:00 67 18 134/52 100 Mechanical Ventilator 40 05/21/17 08:39 151/56 05/21/17 08:38 70 05/21/17 08:00 40 05/21/17 08:00 98.2 67 18 151/56 100 Mechanical Ventilator 40 05/21/17 08:00 64 05/21/17 07:08 83 25 40 05/21/17 07:00 76 22 132/69 100 Mechanical Ventilator 40 05/21/17 06:00 66 140/52 05/21/17 06:00 66 19 135/62 100 Mechanical Ventilator 40 05/21/17 05:25 87 24 40 05/21/17 05:00 78 19 140/52 100 Mechanical Ventilator 40 05/21/17 04:00 67 05/21/17 04:00 40 05/21/17 04:00 98.0 67 19 140/90 100 Mechanical Ventilator 40 05/21/17 03:00 86 19 135/62 100 Mechanical Ventilator 40 05/21/17 02:55 80 26 40 05/21/17 02:00 70 19 134/74 100 Mechanical Ventilator 40 05/21/17 01:16 69 19 40 05/21/17 01:00 71 19 121/44 100 Mechanical Ventilator 40 05/21/17 00:09 69 136/48 05/21/17 00:00 68 05/21/17 00:00 40 05/21/17 00:00 98.0 69 18 121/59 100 Mechanical Ventilator 40 05/20/17 23:20 84 24 40 05/20/17 23:00 84 29 118/59 99 Mechanical Ventilator 40 05/20/17 22:00 94 28 141/63 99 Mechanical Ventilator 40 05/20/17 21:10 97 30 40 05/20/17 21:00 90 26 153/69 99 Mechanical Ventilator 40 05/20/17 20:00 98.0 76 25 147/64 100 Mechanical Ventilator 40 05/20/17 20:00 40 05/20/17 20:00 76 05/20/17 19:21 90 30 40 05/20/17 19:00 86 29 118/59 100 Mechanical Ventilator 40 05/20/17 18:00 76 20 125/48 100 Mechanical Ventilator 40 05/20/17 17:25 78 124/54 05/20/17 17:08 76 19 40 05/20/17 17:00 73 19 124/54 100 Mechanical Ventilator 40 05/20/17 16:00 78 05/20/17 16:00 40 05/20/17 16:00 98.3 73 20 129/53 100 Mechanical Ventilator 40 05/20/17 15:22 101 31 40 Intake and Output 05/20/17 05/21/17 19:00 07:00 Intake Total 1473 ml 1190.000 ml Output Total 2985 ml 4215 ml Balance -1512 ml -3025.000 ml Intake Free Water 150 ml IV Total 783 ml 450.000 ml Tube Feeding 540 ml 540 ml Other 150 ml 50 ml Output Urine Total 2985 ml 4215 ml # Bowel Movements 1 Laboratory Tests 05/20/17 16:40: Prothrombin Time 10.8, Prothromb Time International Ratio 1.0, Activated Partial Thromboplast Time 29 05/21/17 04:00: White Blood Count 9.8, Red Blood Count 2.80L, Hemoglobin 8.5L, Hematocrit 26.5L , Mean Corpuscular Volume 95, Mean Corpuscular Hemoglobin 30.2, Mean Corpuscular Hemoglobin Concent 31.9L, Red Cell Distribution Width 17.1H, Platelet Count 642H, Mean Platelet Volume 5.0L, Neutrophils (%) (Auto) 65.4, Lymphocytes (%) (Auto) 22.2, Monocytes (%) (Auto) 7.6, Eosinophils (%) (Auto) 4.1H, Basophils (%) (Auto) 0.8, Sodium Level 142, Potassium Level 4.2, Chloride Level 113H, Carbon Dioxide Level 23, Anion Gap 6, Blood Urea Nitrogen 3L, Creatinine 0.4L, Estimat Glomerular Filtration Rate , Glucose Level 126H, Calcium Level 7.9L, Phosphorus Level 2.4L, Magnesium Level 1.5L, Total Bilirubin 0.2, Direct Bilirubin < 0.1, Aspartate Amino Transf (AST/SGOT) 11L, Alanine Aminotransferase (ALT/SGPT) 8L, Alkaline Phosphatase 54, Total Protein 5.5L, Albumin 1.6L 05/21/17 10:48: Arterial Blood pH 7.382, Arterial Blood Partial Pressure CO2 35.6, Arterial Blood Partial Pressure O2 93.6, Arterial Blood HCO3 20.7L, Arterial Blood Oxygen Saturation 96.7, Arterial Blood Base Excess -3.9, Kelvin Test Positive Height (Feet): 5 Height (Inches): 4.00 Weight (Pounds): 173 General Appearance: no apparent distress Objective no other changes ALYSON FLANAGAN May 21, 2017 15:05
--- NOTE | 2017-05-21 15:08 | Cardiac Electrophysiology PN ---
Assessment/Plan Assessment/Plan 1. Recurrent episodes of supraventricular tachycardia. Continue Cardizem and digoxin . 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 2. Respiratory failure, on the ventilator, likely due to underlying sepsis and pneumonia. Tracheostomy pending today 3. Status post septic shock. 4. Toxic encephalopathy. 5. Acute renal failure that has resolved. 6. Seizure disorder. 7. Deep venous thrombosis and pulmonary embolism. 8. Dementia. 9. Status post PEG Subjective Subjective Intubated in ICU on Vent. No arrhythmias reported.Scheduled for Tracheostomy today. Objective Last 24 Hour Vital Signs Date Time Temp Pulse Resp B/P (MAP) Pulse Ox O2 Delivery O2 Flow Rate FiO2 05/21/17 13:29 83 18 40 05/21/17 13:00 75 21 132/48 100 Mechanical Ventilator 40 05/21/17 12:25 79 141/67 05/21/17 12:17 99 29 40 05/21/17 12:00 79 26 141/67 100 Mechanical Ventilator 40 05/21/17 12:00 86 05/21/17 12:00 40 05/21/17 11:24 77 25 40 05/21/17 11:00 99.0 80 27 144/66 100 Mechanical Ventilator 40 05/21/17 10:13 89 27 40 05/21/17 10:00 83 25 141/57 100 Mechanical Ventilator 40 05/21/17 10:00 40 05/21/17 09:46 100 05/21/17 09:40 66 17 40 05/21/17 09:00 67 18 134/52 100 Mechanical Ventilator 40 05/21/17 08:39 151/56 05/21/17 08:38 70 05/21/17 08:00 40 05/21/17 08:00 98.2 67 18 151/56 100 Mechanical Ventilator 40 05/21/17 08:00 64 05/21/17 07:08 83 25 40 05/21/17 07:00 76 22 132/69 100 Mechanical Ventilator 40 05/21/17 06:00 66 140/52 05/21/17 06:00 66 19 135/62 100 Mechanical Ventilator 40 05/21/17 05:25 87 24 40 05/21/17 05:00 78 19 140/52 100 Mechanical Ventilator 40 05/21/17 04:00 67 05/21/17 04:00 40 05/21/17 04:00 98.0 67 19 140/90 100 Mechanical Ventilator 40 05/21/17 03:00 86 19 135/62 100 Mechanical Ventilator 40 05/21/17 02:55 80 26 40 05/21/17 02:00 70 19 134/74 100 Mechanical Ventilator 40 05/21/17 01:16 69 19 40 05/21/17 01:00 71 19 121/44 100 Mechanical Ventilator 40 05/21/17 00:09 69 136/48 05/21/17 00:00 68 05/21/17 00:00 40 05/21/17 00:00 98.0 69 18 121/59 100 Mechanical Ventilator 40 05/20/17 23:20 84 24 40 05/20/17 23:00 84 29 118/59 99 Mechanical Ventilator 40 05/20/17 22:00 94 28 141/63 99 Mechanical Ventilator 40 05/20/17 21:10 97 30 40 05/20/17 21:00 90 26 153/69 99 Mechanical Ventilator 40 05/20/17 20:00 98.0 76 25 147/64 100 Mechanical Ventilator 40 05/20/17 20:00 40 05/20/17 20:00 76 05/20/17 19:21 90 30 40 05/20/17 19:00 86 29 118/59 100 Mechanical Ventilator 40 05/20/17 18:00 76 20 125/48 100 Mechanical Ventilator 40 05/20/17 17:25 78 124/54 05/20/17 17:08 76 19 40 05/20/17 17:00 73 19 124/54 100 Mechanical Ventilator 40 05/20/17 16:00 78 05/20/17 16:00 40 05/20/17 16:00 98.3 73 20 129/53 100 Mechanical Ventilator 40 05/20/17 15:22 101 31 40 Intake and Output 05/20/17 05/21/17 19:00 07:00 Intake Total 1473 ml 1190.000 ml Output Total 2985 ml 4215 ml Balance -1512 ml -3025.000 ml Intake Free Water 150 ml IV Total 783 ml 450.000 ml Tube Feeding 540 ml 540 ml Other 150 ml 50 ml Output Urine Total 2985 ml 4215 ml # Bowel Movements 1 Laboratory Tests Test 05/20/17 16:40 05/21/17 04:00 05/21/17 10:48 Prothrombin Time 10.8 SEC (9.30-11.50) Prothromb Time International Ratio 1.0 (0.9-1.1) Activated Partial Thromboplast Time 29 SEC (23-33) White Blood Count 9.8 K/UL (4.8-10.8) Red Blood Count 2.80 M/UL (4.20-5.40) L Hemoglobin 8.5 G/DL (12.0-16.0) L Hematocrit 26.5 % (37.0-47.0) L Mean Corpuscular Volume 95 FL (80-99) Mean Corpuscular Hemoglobin 30.2 PG (27.0-31.0) Mean Corpuscular Hemoglobin Concent 31.9 G/DL (32.0-36.0) L Red Cell Distribution Width 17.1 % (11.6-14.8) H Platelet Count 642 K/UL (150-450) H Mean Platelet Volume 5.0 FL (6.5-10.1) L Neutrophils (%) (Auto) 65.4 % (45.0-75.0) Lymphocytes (%) (Auto) 22.2 % (20.0-45.0) Monocytes (%) (Auto) 7.6 % (1.0-10.0) Eosinophils (%) (Auto) 4.1 % (0.0-3.0) H Basophils (%) (Auto) 0.8 % (0.0-2.0) Sodium Level 142 MMOL/L (136-145) Potassium Level 4.2 MMOL/L (3.5-5.1) Chloride Level 113 MMOL/L (98-107) H Carbon Dioxide Level 23 MMOL/L (21-32) Anion Gap 6 mmol/L (5-15) Blood Urea Nitrogen 3 mg/dL (7-18) L Creatinine 0.4 MG/DL (0.55-1.30) L Estimat Glomerular Filtration Rate mL/min (>60) Glucose Level 126 MG/DL (74-106) H Calcium Level 7.9 MG/DL (8.5-10.1) L Phosphorus Level 2.4 MG/DL (2.5-4.9) L Magnesium Level 1.5 MG/DL (1.8-2.4) L Total Bilirubin 0.2 MG/DL (0.2-1.0) Direct Bilirubin < 0.1 MG/DL (0.0-0.3) Aspartate Amino Transf (AST/SGOT) 11 U/L (15-37) L Alanine Aminotransferase (ALT/SGPT) 8 U/L (12-78) L Alkaline Phosphatase 54 U/L (46-116) Total Protein 5.5 G/DL (6.4-8.2) L Albumin 1.6 G/DL (3.4-5.0) L Arterial Blood pH 7.382 (7.350-7.450) Arterial Blood Partial Pressure CO2 35.6 mmHg (35.0-45.0) Arterial Blood Partial Pressure O2 93.6 mmHg (75.0-100.0) Arterial Blood HCO3 20.7 mmol/L (22.0-26.0) L Arterial Blood Oxygen Saturation 96.7 % (92.0-98.0) Arterial Blood Base Excess -3.9 Kelvin Test Positive Objective HEAD AND NECK: Orally intubated with no JVD. LUNGS: Coarse rhonchi. CARDIOVASCULAR: Regular S1 and S2 with no gallop. ABDOMEN: Soft and nontender.PEG in place EXTREMITIES: No pitting edema. MALLORY BROWN May 21, 2017 15:08
--- NOTE | 2017-05-21 15:15 | Brief Operative Note ---
Immediate Post Operative Note Operative Note Pre-op Diagnosis: septic shock / severe sepsis requiring prolonged ventilation and ventilatory support Procedure: Tracheostomy Post-op Diagnosis: same as pre-op Surgeon: russ Anesthesiologist: chelsea Anesthesia: general, MAC Specimen: none Complications: none Condition: stable Fluids: see records Estimated Blood Loss: minimal Drains: none Implant(s) used?: Yes - 8F Bert Carson May 21, 2017 15:15
--- NOTE | 2017-05-21 15:15 | Consultation ---
History of Present Illness General Date patient seen: May 21, 2017 Time patient seen: 08:00 Chief Complaint: Altered Level of Consciousness Referring physician: Dianna Reason for Consultation: Right posterior knee wound Present Illness HPI Asked to evaluate this patient who was admitted to [facility] with altered MS. She is in ICU intubated. She has a h/o alzheimers. She presented with right knee ulcer but unclear how long she has had it or what treatment was prior to admission. She is getting santyl to the ulcer in the hospital. Allergies: Coded Allergies: NO KNOWN DRUG ALLERGIES (Unverified Allergy, Unknown, 07/29/14) Medication History Scheduled Acidophilus/Bulgaricus (Floranex Tablet), 1 EACH PO BID, (Reported) Amoxicillin/Potassium Clav 875-125* (Augmentin 875-125 Tablet*), 1 TAB ORAL TWICE A DAY Apixaban (Eliquis), 5 MG PO BID, (Reported) Baclofen* (Baclofen*), 10 MG ORAL THREE TIMES A DAY, (Reported) Bisacodyl* (Dulcolax*), 10 MG RECTAL ONCE, (Reported) Calcitonin,Sparks,Synthetic (Calcitonin-Sparks), 3.7 ML NS DAILY, (Reported) Divalproex Sodium* (Depakote*), 500 MG PO Q12HR, (Reported) Docusate Sodium* (Docusate Sodium*), 100 MG ORAL TWICE A DAY, (Reported) Doxazosin Mesylate* (Cardura*), 2 MG ORAL DAILY, (Reported) Doxycycline Monohydrate* (Doxycycline Monohydrate*), 100 MG ORAL Q12H Ergocalciferol (Vitamin D2)* (Vitamin D*), 50,000 UNIT ORAL ONCE A WEEK, ( Reported) Ferrous Sulfate* (Ferrous Sulfate*), 325 MG ORAL DAILY, (Reported) Fluvoxamine Maleate (Fluvoxamine Maleate), 50 MG ORAL BID, (Reported) Lactobacillus Cmb#7/Fos/Inulin (Probiotic Complex Tablet), Unknown Dose PO DAILY , (Reported) Levothyroxine Sodium* (Levothyroxine Sodium*), 50 MCG ORAL DAILY, (Reported) Lidocaine (Lidocaine), 1,400 MG TP DAILY, (Reported) Memantine Hcl* (Namenda*), 10 MG ORAL TWICE A DAY, (Reported) Memantine Hcl* (Namenda*), 10 MG ORAL TWICE A DAY, (Reported) Multivitamin With Minerals (Multivitamins With Minerals*), 1 TAB ORAL DAILY, ( Reported) Nitrofurantoin Monohyd/M-Cryst* (Macrobid 100 Mg*), 100 MG ORAL DAILY, (Reported ) Olanzapine* (Zyprexa*), 5 MG ORAL HS, (Reported) Olanzapine* (Zyprexa*), 10 MG ORAL DAILY, (Reported) Olanzapine* (Zyprexa*), 10 MG ORAL BID, (Reported) [place]-3 Fatty Acids/Fish Oil (Fish Oil 1,000 Mg Capsule), 1 CAP ORAL BID, ( Reported) Pantoprazole* (Pantoprazole*), 40 MG ORAL DAILY, (Reported) Pantoprazole* (Protonix*), 40 MG ORAL DAILY, (Reported) Ranitidine Hcl* (Zantac*), 150 MG ORAL TWICE A DAY, (Reported) Rivaroxaban (Xarelto*), 20 MG ORAL DAILY, (Reported) Simvastatin (Zocor), 20 MG ORAL BEDTIME, (Reported) Solifenacin Succinate (Vesicare*), 10 MG ORAL HS, (Reported) Tamsulosin Hcl (Tamsulosin Hcl*), 0.4 MG ORAL DAILY, (Reported) Scheduled PRN Acetaminophen (Acetaminophen), 650 MG ORAL Q6H PRN for Prn Headache/Temp > 101, (Reported) Hydrocodone Bit/Acetaminophen 10-325* (Anahola 10-325*), 1 TAB ORAL Q4H PRN for For Pain, (Reported) Lorazepam* (Ativan*), 2 MG PO PRN PRN for Agitation, (Reported) Melatonin (Melatonin), 1 MG PO BEDTIME PRN for Insomnia, (Reported) Zolpidem Tartrate* (Ambien*), 10 MG ORAL HS PRN for Insomnia, (Reported) Miscellaneous Medications Hydrocodone Bit/Acetaminophen 10-325* ([place]ola 10-325*), 1 TAB ORAL, (Reported) Lactobacillus Acidophilus (Acidophilus), 1 EACH PO, (Reported) Lactobacillus Acidophilus/Pect (Acidophilus-Pectin Capsule), 1 EACH PO, ( Reported) Patient History Limited by: medical condition History Provided By: Medical Record Healthcare decision maker Erin Gee Resuscitation status Full Code Advanced Directive on File Physical Exam Lines, tubes and drains: endotracheal tube, gtube, cota cath Extremities: moderate edema Skin Exam: other - Ulcer of right posterolateral knee with adherent fibrotic debris at the base. No fluctunace and no erythema or warmth in periskin. Last 24 Hour Vital Signs Date Time Temp Pulse Resp B/P (MAP) Pulse Ox O2 Delivery O2 Flow Rate FiO2 05/21/17 13:29 83 18 40 05/21/17 13:00 75 21 132/48 100 Mechanical Ventilator 40 05/21/17 12:25 79 141/67 05/21/17 12:17 99 29 40 05/21/17 12:00 79 26 141/67 100 Mechanical Ventilator 40 05/21/17 12:00 86 05/21/17 12:00 40 05/21/17 11:24 77 25 40 05/21/17 11:00 99.0 80 27 144/66 100 Mechanical Ventilator 40 05/21/17 10:13 89 27 40 05/21/17 10:00 83 25 141/57 100 Mechanical Ventilator 40 05/21/17 10:00 40 05/21/17 09:46 100 05/21/17 09:40 66 17 40 05/21/17 09:00 67 18 134/52 100 Mechanical Ventilator 40 05/21/17 08:39 151/56 05/21/17 08:38 70 05/21/17 08:00 40 05/21/17 08:00 98.2 67 18 151/56 100 Mechanical Ventilator 40 05/21/17 08:00 64 05/21/17 07:08 83 25 40 05/21/17 07:00 76 22 132/69 100 Mechanical Ventilator 40 05/21/17 06:00 66 140/52 05/21/17 06:00 66 19 135/62 100 Mechanical Ventilator 40 05/21/17 05:25 87 24 40 05/21/17 05:00 78 19 140/52 100 Mechanical Ventilator 40 05/21/17 04:00 67 05/21/17 04:00 40 05/21/17 04:00 98.0 67 19 140/90 100 Mechanical Ventilator 40 05/21/17 03:00 86 19 135/62 100 Mechanical Ventilator 40 05/21/17 02:55 80 26 40 05/21/17 02:00 70 19 134/74 100 Mechanical Ventilator 40 05/21/17 01:16 69 19 40 05/21/17 01:00 71 19 121/44 100 Mechanical Ventilator 40 05/21/17 00:09 69 136/48 05/21/17 00:00 68 05/21/17 00:00 40 05/21/17 00:00 98.0 69 18 121/59 100 Mechanical Ventilator 40 05/20/17 23:20 84 24 40 05/20/17 23:00 84 29 118/59 99 Mechanical Ventilator 40 05/20/17 22:00 94 28 141/63 99 Mechanical Ventilator 40 05/20/17 21:10 97 30 40 05/20/17 21:00 90 26 153/69 99 Mechanical Ventilator 40 05/20/17 20:00 98.0 76 25 147/64 100 Mechanical Ventilator 40 05/20/17 20:00 40 05/20/17 20:00 76 05/20/17 19:21 90 30 40 05/20/17 19:00 86 29 118/59 100 Mechanical Ventilator 40 05/20/17 18:00 76 20 125/48 100 Mechanical Ventilator 40 05/20/17 17:25 78 124/54 05/20/17 17:08 76 19 40 05/20/17 17:00 73 19 124/54 100 Mechanical Ventilator 40 05/20/17 16:00 78 05/20/17 16:00 40 05/20/17 16:00 98.3 73 20 129/53 100 Mechanical Ventilator 40 05/20/17 15:22 101 31 40 Intake and Output 05/20/17 05/21/17 19:00 07:00 Intake Total 1473 ml 1190.000 ml Output Total 2985 ml 4215 ml Balance -1512 ml -3025.000 ml Intake Free Water 150 ml IV Total 783 ml 450.000 ml Tube Feeding 540 ml 540 ml Other 150 ml 50 ml Output Urine Total 2985 ml 4215 ml # Bowel Movements 1 Laboratory Tests Test 05/20/17 16:40 05/21/17 04:00 05/21/17 10:48 Prothrombin Time 10.8 SEC (9.30-11.50) Prothromb Time International Ratio 1.0 (0.9-1.1) Activated Partial Thromboplast Time 29 SEC (23-33) White Blood Count 9.8 K/UL (4.8-10.8) Red Blood Count 2.80 M/UL (4.20-5.40) L Hemoglobin 8.5 G/DL (12.0-16.0) L Hematocrit 26.5 % (37.0-47.0) L Mean Corpuscular Volume 95 FL (80-99) Mean Corpuscular Hemoglobin 30.2 PG (27.0-31.0) Mean Corpuscular Hemoglobin Concent 31.9 G/DL (32.0-36.0) L Red Cell Distribution Width 17.1 % (11.6-14.8) H Platelet Count 642 K/UL (150-450) H Mean Platelet Volume 5.0 FL (6.5-10.1) L Neutrophils (%) (Auto) 65.4 % (45.0-75.0) Lymphocytes (%) (Auto) 22.2 % (20.0-45.0) Monocytes (%) (Auto) 7.6 % (1.0-10.0) Eosinophils (%) (Auto) 4.1 % (0.0-3.0) H Basophils (%) (Auto) 0.8 % (0.0-2.0) Sodium Level 142 MMOL/L (136-145) Potassium Level 4.2 MMOL/L (3.5-5.1) Chloride Level 113 MMOL/L (98-107) H Carbon Dioxide Level 23 MMOL/L (21-32) Anion Gap 6 mmol/L (5-15) Blood Urea Nitrogen 3 mg/dL (7-18) L Creatinine 0.4 MG/DL (0.55-1.30) L Estimat Glomerular Filtration Rate mL/min (>60) Glucose Level 126 MG/DL (74-106) H Calcium Level 7.9 MG/DL (8.5-10.1) L Phosphorus Level 2.4 MG/DL (2.5-4.9) L Magnesium Level 1.5 MG/DL (1.8-2.4) L Total Bilirubin 0.2 MG/DL (0.2-1.0) Direct Bilirubin < 0.1 MG/DL (0.0-0.3) Aspartate Amino Transf (AST/SGOT) 11 U/L (15-37) L Alanine Aminotransferase (ALT/SGPT) 8 U/L (12-78) L Alkaline Phosphatase 54 U/L (46-116) Total Protein 5.5 G/DL (6.4-8.2) L Albumin 1.6 G/DL (3.4-5.0) L Arterial Blood pH 7.382 (7.350-7.450) Arterial Blood Partial Pressure CO2 35.6 mmHg (35.0-45.0) Arterial Blood Partial Pressure O2 93.6 mmHg (75.0-100.0) Arterial Blood HCO3 20.7 mmol/L (22.0-26.0) L Arterial Blood Oxygen Saturation 96.7 % (92.0-98.0) Arterial Blood Base Excess -3.9 Kelvin Test Positive Height (Feet): 5 Height (Inches): 4.00 Weight (Pounds): 173 Medications Current Medications Medications (Trade) Dose Ordered Sig/Jacque Route PRN Reason Start Time Stop Time Status Last Admin Dose Admin Acetaminophen (Tylenol) 650 mg Q4H PRN GT Mild Pain/Temp > 100.5 05/17/17 12:00 06/16/17 11:59 05/18/17 20:23 Acetaminophen/ Hydrocodone Bitart ([place] 10/325) 1 tab Q4H PRN GT Moderate to Severe Pain 05/17/17 17:00 05/24/17 16:59 05/19/17 06:23 Albuterol/ Ipratropium (Albuterol/ Ipratropium) 3 ml Q6H PRN HHN Shortness of Breath 05/19/17 10:45 05/24/17 10:44 Amikacin Protocol (Amikacin pharmacy to dose) 1 ea DAILY PRN MISC Per rx protocol 05/18/17 17:45 06/17/17 17:44 Amikacin Sulfate 750 mg/Sodium Chloride 113 ml @ 220 mls/hr Q24H IV 05/21/17 08:00 05/28/17 07:59 05/21/17 08:17 Bisacodyl (Dulcolax) 10 mg DAILYPRN PRN RECTAL Constipation 05/10/17 01:45 06/09/17 01:44 Chlorhexidine Gluconate (Laly-Hex 2%) 1 applic DAILY@2000 TOPIC 05/13/17 20:00 06/12/17 19:59 05/20/17 21:41 Clotrimazole (Lotrimin) 1 applic EVERY 12 HOURS TOPIC 05/10/17 15:00 06/09/17 14:59 05/21/17 08:39 Collagenase (Santyl) 1 applic DAILY TOPIC 05/18/17 09:00 06/17/17 08:59 05/21/17 08:39 Collagenase (Santyl) 1 applic PRN PRN TOPIC soilage 05/17/17 23:15 06/16/17 23:14 Dextrose (Dextrose 50%) STAT PRN IV Hypoglycemia 05/10/17 01:45 06/09/17 01:44 Digoxin (Lanoxin) 0.25 mg DAILY ORAL 05/18/17 09:00 06/17/17 08:59 05/21/17 08:38 Diltiazem HCl (Cardizem) 10 mg Q1HR PRN IVP Heart rate greater than 120. 05/14/17 19:30 06/13/17 19:29 05/17/17 12:16 Diltiazem HCl (Cardizem) 30 mg EVERY 6 HOURS ORAL 05/17/17 18:00 06/16/17 17:59 05/21/17 12:25 Docusate Sodium (Colace) 100 mg EVERY 12 HOURS ORAL 05/11/17 10:00 06/10/17 09:59 05/18/17 20:24 Fluconazole (Diflucan) 100 mg DAILY@2000 ORAL 05/20/17 20:00 05/27/17 23:59 05/20/17 21:42 Heparin Sodium (Porcine) (Heparin 5000 units/ml) 5,000 units EVERY 12 HOURS SUBQ 05/10/17 09:00 06/09/17 08:59 05/19/17 20:51 Meropenem 1 gm/ Sodium Chloride 100 ml @ 200 mls/hr Q8HR@0630,1430,2230 IVPB 05/18/17 22:30 05/23/17 22:29 05/21/17 06:57 Norepinephrine Bitartrate 8 mg/ Dextrose 254 ml @ 0 mls/hr Q24H IV 05/10/17 09:30 06/09/17 05:59 05/11/17 11:34 Ondansetron HCl (Zofran) 4 mg Q6H PRN IVP Nausea & Vomiting 05/10/17 01:45 06/09/17 01:44 Pantoprazole (Protonix) 40 mg Q12HR IV 05/10/17 21:00 06/09/17 20:59 05/21/17 08:37 Phosphorus (Phospha 250 Neutral) 500 mg THREE TIMES A DAY NG 05/16/17 13:00 06/15/17 12:59 05/21/17 12:57 Polyethylene Glycol (Miralax) 17 gm DAILYPRN PRN ORAL Constipation 05/10/17 01:45 06/09/17 01:44 Potassium Phosphate 30 mm/ Sodium Chloride 285 ml @ 47.5 mls/hr ONCE ONCE IV 05/21/17 16:30 05/21/17 22:29 Vancomycin HCl (Vanco rx to dose) 1 ea DAILY PRN MISC Per rx protocol 05/10/17 01:45 06/09/17 01:44 Vancomycin/Sodium Chloride 250 ml @ 166.667 mls/hr Q12HR IVPB 05/20/17 21:00 05/25/17 23:59 05/21/17 13:00 Assessment/Plan Status: stable Assessment/Plan Patient with right knee ulcer that appears clinically uninfected. Agree with using the santyl to loosen the fibrotic debris. Recommend not applying the colopaste directly over the wound. This should be used only on the periskin. No need for surgical intervention at this time. NIRAJ JONES May 21, 2017 15:15
--- NOTE | 2017-05-21 15:26 | Anethesia Preoperative Eval ---
Anesthesia Pre-op PMH/ROS General Date of Evaluation: May 21, 2017 Time of Evaluation: 14:15 Anesthesiologist: Federica ASA Score: ASA 4 Mallampati Score Class I : Soft palate, uvula, fauces, pillars visible Class II: Soft palate, uvula, fauces visible Class III: Soft palate, base of uvula visible Class IV: Only hard plate visible Mallampati Classification: Class II Surgeon: Nj Diagnosis: Respiratory failure Surgical Procedure: Trach Family History: no anesthesia problems Allergies: Coded Allergies: NO KNOWN DRUG ALLERGIES (Unverified Allergy, Unknown, 07/29/14) Medications: see eMAR Past Medical History Cardiovascular: Reports: HTN, arrhythmia - SVT Pulmonary: Reports: COPD Neurologic/Psychiatric: Reports: dementia, CVA PMH Narrative: HTN, COPD, Dementia, CVA, respiratory failure PSxH Narrative: C/S, knee surgery Anesthesia Pre-op Phys. Exam Physician Exam Last Vital Signs Date Time Temp Pulse Resp B/P (MAP) Pulse Ox O2 Delivery O2 Flow Rate FiO2 05/21/17 13:29 83 18 40 05/21/17 13:00 132/48 100 Mechanical Ventilator 05/21/17 11:00 99.0 Constitutional: NAD Neurologic: CN 2-12 intact Cardiovascular: other - Intubated Respiratory: CTA Gastrointestinal: S/NT/ND Airway Exam Mallampati Score: Class III MO: full ROM: full Anesthesia Pre-op A/P Labs Hematology Test 05/21/17 04:00 White Blood Count 9.8 K/UL (4.8-10.8) Red Blood Count 2.80 M/UL (4.20-5.40) L Hemoglobin 8.5 G/DL (12.0-16.0) L Hematocrit 26.5 % (37.0-47.0) L Mean Corpuscular Volume 95 FL (80-99) Mean Corpuscular Hemoglobin 30.2 PG (27.0-31.0) Mean Corpuscular Hemoglobin Concent 31.9 G/DL (32.0-36.0) L Red Cell Distribution Width 17.1 % (11.6-14.8) H Platelet Count 642 K/UL (150-450) H Mean Platelet Volume 5.0 FL (6.5-10.1) L Neutrophils (%) (Auto) 65.4 % (45.0-75.0) Lymphocytes (%) (Auto) 22.2 % (20.0-45.0) Monocytes (%) (Auto) 7.6 % (1.0-10.0) Eosinophils (%) (Auto) 4.1 % (0.0-3.0) H Basophils (%) (Auto) 0.8 % (0.0-2.0) Coagulation Test 05/20/17 16:40 Prothrombin Time 10.8 SEC (9.30-11.50) Prothromb Time International Ratio 1.0 (0.9-1.1) Activated Partial Thromboplast Time 29 SEC (23-33) Chemistry Test 05/21/17 04:00 Sodium Level 142 MMOL/L (136-145) Potassium Level 4.2 MMOL/L (3.5-5.1) Chloride Level 113 MMOL/L (98-107) H Carbon Dioxide Level 23 MMOL/L (21-32) Anion Gap 6 mmol/L (5-15) Blood Urea Nitrogen 3 mg/dL (7-18) L Creatinine 0.4 MG/DL (0.55-1.30) L Estimat Glomerular Filtration Rate mL/min (>60) Glucose Level 126 MG/DL (74-106) H Calcium Level 7.9 MG/DL (8.5-10.1) L Phosphorus Level 2.4 MG/DL (2.5-4.9) L Magnesium Level 1.5 MG/DL (1.8-2.4) L Total Bilirubin 0.2 MG/DL (0.2-1.0) Direct Bilirubin < 0.1 MG/DL (0.0-0.3) Aspartate Amino Transf (AST/SGOT) 11 U/L (15-37) L Alanine Aminotransferase (ALT/SGPT) 8 U/L (12-78) L Alkaline Phosphatase 54 U/L (46-116) Total Protein 5.5 G/DL (6.4-8.2) L Albumin 1.6 G/DL (3.4-5.0) L Risk Assessment & Plan Assessment: Respiratory failure in an 86 yo female with h/o HTN, COPD, dementia Plan: GA Status Change Before Surgery: No Pre-Antibiotics Drug: Patient on MIRNA Darby M.D. May 21, 2017 15:26
--- NOTE | 2017-05-21 15:28 | Immediate Post-Op Evaluation ---
Immediate Post-Op Evalulation Immediate Post-Op Evalulation Procedure: Trach Date of Evaluation: May 21, 2017 Time of Evaluation: 15:35 IV Fluids: 250 Blood Pressure Systolic: 125 Blood Pressure Diastolic: 63 Pulse Rate: 82 Respiratory Rate: 12 O2 Sat by Pulse Oximetry: 100 Pain Score (1-10): 0 Nausea: No Vomiting: No Complications No complication Patient Status: awake, ventilated, none Hydration Status: adequate Drug: Patient on MIRNA Darby M.D. May 21, 2017 15:27
[2017-05-21] MEDS ORDERED: Potassium Phosphate 30 MM in NS 275 ML IV ONE (16:30)
--- NOTE | 2017-05-21 17:30 | Progress Note ---
DATE: 05/20/2017 CARDIOLOGY PROGRESS NOTE SUBJECTIVE: The patient remains in intensive care unit, intubated on the ventilator, does have an arrhythmia, and scheduled for tracheostomy tomorrow. OBJECTIVE: VITAL SIGNS: Blood pressure 110/70, pulse 80, respirations 18, and she is afebrile. HEAD AND NECK: Showed no JVD. She is orally intubated. LUNGS: Coarse rhonchi. CARDIOVASCULAR: Shows regular S1 and S2 with no gallop. ABDOMEN: Soft. Status post G-tube. EXTREMITIES: No pitting edema. ASSESSMENT AND PLAN: 1. 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 Continue Cardizem and digoxin. 2. Ventilator-dependent respiratory failure. The patient to undergo tracheostomy tomorrow. 3. Status post septic shock. 4. Acute renal failure, resolved. 5. Toxic encephalopathy. 6. Seizure disorder. 7. History of deep venous thrombosis and pulmonary embolism. 8. Dementia. 9. Dysphagia, status post percutaneous endoscopic gastrostomy placement. Case was discussed with the patient's nurse at the bedside. Bret Morrow M.D. DR: Jean JOB#: [id number] CC:
[2017-05-21] MEDS ORDERED: Tubing IV Secondary IV ONE (18:46)
--- NOTE | 2017-05-21 19:30 | Operative Note - Dictated ---
DATE OF OPERATION: 05/19/2017 PREOPERATIVE DIAGNOSES: Respiratory failure, septic shock, requiring prolonged ventilatory support. POSTOPERATIVE DIAGNOSES: Respiratory failure, septic shock, requiring prolonged ventilatory support. OPERATION PERFORMED: Tracheostomy. ATTENDING SURGEON: Bert Mauro M.D. JOB LITHOGRAPHER: None. ANESTHESIOLOGIST: Keny Stallworth M.D. ANESTHESIA: General OYSTER PLANTER. ESTIMATED BLOOD LOSS: Minimal. IV FLUIDS: Please see anesthesia records. COMPLICATIONS: None. SPECIMENS: None. DRAINS: None. IMPLANTS: A 8-Slovak Shiley tracheostomy tube. ANTIBIOTICS: The patient was on scheduled IV antibiotics for acute active infectious process. WOUND CLASSIFICATION: Class I. INDICATIONS FOR PROCEDURE: The patient is an 86-year-old female who presented to the emergency room with altered mental status and was found to be in septic shock with respiratory compromise, requiring intubation and ventilatory support. She has been critically ill in the intensive care unit for sometime now with respirator dependency and difficulty with weaning. Given the above, tracheostomy was recommended and indicated. Long discussion was had with the patient's family who expressed desire to proceed with tracheostomy. Risks, benefits, and alternatives were discussed in detail. Consent was signed and obtained. OPERATIVE NOTE: The patient was taken to the operating room and made comfortable on the bed. All bony prominences were well padded with gel pads. A shoulder roll was placed. Appropriate time-out was taken identifying the patient, procedure, operative staff, and surgical staff. General anesthesia was induced. The patient had ET tube, Camacho, and feeding tube prior to entering the operating room. The neck was hyperextended and the neck was prepped and draped in standard surgical fashion. Anatomical landmarks were identified and a transverse skin incision was made 1-2 cm above the sternal notch. The skin incision was carried down through the subcutaneous tissue, the platysma, and down with electrocautery. The median raphe was identified and the muscle fibers were split and the incision was taken down to the trachea. Once the trachea was identified, it was cleared cephalad and caudad. A small piece of the thyroid isthmus was identified and divided and ligated using #0 Vicryl suture. Following this, the trach anatomy was identified and a tracheal hook was placed for stabilization of the trachea. The first, second, and third tracheal rings were clearly identified and visualized. An incision was made at the level of the second tracheal ring with a Vesna flap. Once this was completed, anesthesia was available and slowly withdrew the ET tube. As the ET tube was withdrawn, suctioned, aspirated all contents and following withdrawal of the ET tube past the Vesna flap, an 8-Slovak Shiley tracheostomy was inserted under direct visualization without complication. The balloon of the tracheostomy was insufflated and tracheostomy was placed with support. Suction was initiated and we began the conclusion of our procedure with closing the skin incision using 4-0 Monocryl sutures following by placement of a tracheal tie. The patient tolerated the procedure well and was then taken directly to the intensive care unit in stable condition. Bert Mauro M.D. DR: MANUEL JOB#: [id number] CC: ADRI
[2017-05-21] MEDS: Dyna-Hex 2% Top Sol 2oz TOPIC SCH (19:46)
[2017-05-21] MEDS: Fluconazole 100mg tab ORAL SCH (19:46)
[2017-05-22] VITALS (20 sets, daily range): BP systolic 122–145; BP diastolic 43–78
[2017-05-22] MEDS: dilTIAZem HCl 30mg tab ORAL SCH ×3 (05:46→18:54)
[2017-05-22 06:06] LABS: BASOPHILS % (AUTO) 1.1 % (0.0-2.0); EOSINOPHILS % (AUTO) 4.9 % (0.0-3.0); HEMATOCRIT 26.1 % (37.0-47.0); HEMOGLOBIN 8.3 G/DL (12.0-16.0); LYMPHOCYTES % (AUTO) 22.1 % (20.0-45.0); MEAN CORPUSCULAR VOLUME 94 FL (80-99); MONOCYTES % (AUTO) 9.5 % (1.0-10.0); NEUTROPHILS % (AUTO) 62.5 % (45.0-75.0); PLATELET COUNT 600 K/UL (150-450); RED BLOOD COUNT 2.77 M/UL (4.20-5.40); RED CELL DISTRIBUTION WIDTH 17.8 % (11.6-14.8); WHITE BLOOD COUNT 9.6 K/UL (4.8-10.8)
[2017-05-22 06:22] LABS: ALANINE AMINOTRANSFERASE 8 U/L (12-78); ALBUMIN 1.7 G/DL (3.4-5.0); ALBUMIN/GLOBULIN RATIO 0.4 (1.0-2.7); ALKALINE PHOSPHATASE 55 U/L (46-116); ANION GAP 7 mmol/L (5-15); ASPARTATE AMINO TRANSFERASE 10 U/L (15-37); BILIRUBIN,TOTAL 0.3 MG/DL (0.2-1.0); BLOOD UREA NITROGEN 3 mg/dL (7-18); CARBON DIOXIDE 25 MMOL/L (21-32); CHLORIDE 112 MMOL/L (98-107); CREATININE 0.3 MG/DL (0.55-1.30); PHOSPHORUS 2.9 MG/DL (2.5-4.9); POTASSIUM 3.9 MMOL/L (3.5-5.1); SODIUM 143 MMOL/L (136-145)
--- NOTE | 2017-05-22 07:44 | 48 Hour Post Anesthesia Eval ---
Post Anesthesia Evaluation Procedure: Trach Date of Evaluation: May 22, 2017 Time of Evaluation: 07:10 Blood Pressure Systolic: 135 0: 68 Pulse Rate: 85 Respiratory Rate: 22 O2 Sat by Pulse Oximetry: 99 Airway: other - trach in place, on mechanical ventilataion Nausea: No Vomiting: No Pain Intensity: 0 Hydration Status: adequate Cardiopulmonary Status: at baseline Mental Status/LOC: patient returned to baseline Post-Anesthesia Complications: 0 Follow-up care needed: N/A - further care as per primary team BERONICA MELENDEZ M.D. May 22, 2017 07:44
[2017-05-22] MEDS: Docusate 100mg/10ml Liq ORAL SCH ×2 (08:01→21:09)
[2017-05-22] MEDS: Phospha 250 Neutral tab NG SCH ×3 (08:01→18:54)
[2017-05-22] MEDS: Pantoprazole Inj IV SCH ×2 (08:02→21:05)
[2017-05-22] MEDS: Heparin 5000 units/ml inj SUBQ SCH ×2 (08:13→21:11)
[2017-05-22] MEDS: Amikacin 750 MG in NS 110 ML IV SCH (08:32)
--- NOTE | 2017-05-22 08:56 | Pulmonolgy Critical Care Note ---
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 Discussed with: nurses Critical Care - Objective Last 24 Hour Vital Signs Date Time Temp Pulse Resp B/P (MAP) Pulse Ox O2 Delivery O2 Flow Rate FiO2 05/22/17 08:38 145/50 05/22/17 08:01 87 05/22/17 08:00 81 05/22/17 08:00 40 05/22/17 08:00 99.3 89 25 145/50 99 Mechanical Ventilator 40 05/22/17 07:44 85 22 99 05/22/17 07:12 88 23 40 05/22/17 07:00 85 22 135/68 99 Mechanical Ventilator 40 05/22/17 06:00 92 18 132/56 99 Mechanical Ventilator 40 05/22/17 05:46 85 135/55 05/22/17 05:08 94 22 40 05/22/17 05:00 81 18 134/58 98 Mechanical Ventilator 40 05/22/17 04:00 40 05/22/17 04:00 98.8 83 30 136/57 97 Mechanical Ventilator 40 05/22/17 03:46 86 05/22/17 03:21 91 21 40 05/22/17 03:00 93 24 125/57 98 Mechanical Ventilator 40 05/22/17 02:00 85 20 128/46 99 Mechanical Ventilator 40 05/22/17 01:30 92 24 40 05/22/17 01:00 82 20 131/43 100 Mechanical Ventilator 40 05/22/17 00:01 78 05/22/17 00:00 40 05/22/17 00:00 98.8 85 18 122/54 99 Mechanical Ventilator 40 05/21/17 23:48 89 134/61 05/21/17 23:20 82 18 40 05/21/17 23:00 77 18 130/51 99 Mechanical Ventilator 40 05/21/17 22:00 70 18 148/47 99 Mechanical Ventilator 40 05/21/17 21:00 69 18 125/53 99 Mechanical Ventilator 40 05/21/17 20:46 93 24 40 05/21/17 20:00 40 05/21/17 20:00 98.6 92 26 110/64 100 Mechanical Ventilator 40 05/21/17 19:30 78 05/21/17 19:30 92 22 40 05/21/17 19:00 86 24 150/56 100 Mechanical Ventilator 40 05/21/17 18:31 85 149/60 05/21/17 18:00 74 28 149/60 100 Mechanical Ventilator 40 05/21/17 17:00 88 28 132/70 100 Mechanical Ventilator 40 05/21/17 16:38 91 28 40 05/21/17 16:00 79 05/21/17 16:00 40 05/21/17 16:00 92 27 148/54 100 Mechanical Ventilator 40 05/21/17 15:33 85 18 40 05/21/17 15:27 82 12 100 05/21/17 15:20 40 05/21/17 15:00 98.2 84 18 133/54 100 Mechanical Ventilator 40 05/21/17 13:29 83 18 40 05/21/17 13:00 75 21 132/48 100 Mechanical Ventilator 40 05/21/17 12:25 79 141/67 05/21/17 12:17 99 29 40 05/21/17 12:00 79 26 141/67 100 Mechanical Ventilator 40 05/21/17 12:00 86 05/21/17 12:00 40 05/21/17 11:24 77 25 40 05/21/17 11:00 99.0 80 27 144/66 100 Mechanical Ventilator 40 05/21/17 10:13 89 27 40 05/21/17 10:00 83 25 141/57 100 Mechanical Ventilator 40 05/21/17 10:00 40 05/21/17 09:46 100 05/21/17 09:40 66 17 40 05/21/17 09:00 67 18 134/52 100 Mechanical Ventilator 40 Status: awake Condition: critical HEENT: atraumatic Lungs: clear Heart: HR/BP stable, HR/BP unstable Abdomen: soft, non-tender Critical Care - Subjective ROS Limited/Unobtainable: Yes ICU Day: 13 Condition: critical EKG Rhythm: Sinus Rhythm FI02: 40 Vent Support Breath Rate: 18 Vent Support Mode: AC Vent Tidal Volume: 500 Sputum Amount: Small PEEP: 0.0 PIP: 9 Fluids: no fluids Tube Feeding Amount: 45 I&O: Intake and Output 05/21/17 05/22/17 19:00 07:00 Intake Total 1123 ml 1110 ml Output Total 2050 ml 1630 ml Balance -927 ml -520 ml IV Total 748 ml 450 ml Tube Feeding 225 ml 540 ml Other 150 ml 120 ml Output Urine Total 2050 ml 1630 ml # Bowel Movements 2 CXR: trach in place, infiltrate unchanged. ET-Tube: 7.5 ET Position: 23 Labs: Laboratory Tests Test 05/21/17 10:48 05/22/17 04:00 05/22/17 05:00 05/22/17 08:25 Arterial Blood pH 7.382 (7.350-7.450) 7.456 (7.350-7.450) Arterial Blood Partial Pressure CO2 35.6 mmHg (35.0-45.0) 32.0 mmHg (35.0-45.0) L Arterial Blood Partial Pressure O2 93.6 mmHg (75.0-100.0) 97.5 mmHg (75.0-100.0) Arterial Blood HCO3 20.7 mmol/L (22.0-26.0) L 22.0 mmol/L (22.0-26.0) Arterial Blood Oxygen Saturation 96.7 % (92.0-98.0) 97.0 % (92.0-98.0) Arterial Blood Base Excess -3.9 -1.4 Kelvin Test Positive Positive White Blood Count 9.6 K/UL (4.8-10.8) Red Blood Count 2.77 M/UL (4.20-5.40) L Hemoglobin 8.3 G/DL (12.0-16.0) L Hematocrit 26.1 % (37.0-47.0) L Mean Corpuscular Volume 94 FL (80-99) Mean Corpuscular Hemoglobin 30.1 PG (27.0-31.0) Mean Corpuscular Hemoglobin Concent 32.0 G/DL (32.0-36.0) Red Cell Distribution Width 17.8 % (11.6-14.8) H Platelet Count 600 K/UL (150-450) H Mean Platelet Volume 5.1 FL (6.5-10.1) L Neutrophils (%) (Auto) 62.5 % (45.0-75.0) Lymphocytes (%) (Auto) 22.1 % (20.0-45.0) Monocytes (%) (Auto) 9.5 % (1.0-10.0) Eosinophils (%) (Auto) 4.9 % (0.0-3.0) H Basophils (%) (Auto) 1.1 % (0.0-2.0) Sodium Level 143 MMOL/L (136-145) Potassium Level 3.9 MMOL/L (3.5-5.1) Chloride Level 112 MMOL/L (98-107) H Carbon Dioxide Level 25 MMOL/L (21-32) Anion Gap 7 mmol/L (5-15) Blood Urea Nitrogen 3 mg/dL (7-18) L Creatinine 0.3 MG/DL (0.55-1.30) L Estimat Glomerular Filtration Rate mL/min (>60) Glucose Level 124 MG/DL (74-106) H Calcium Level 8.0 MG/DL (8.5-10.1) L Phosphorus Level 2.9 MG/DL (2.5-4.9) Magnesium Level 1.6 MG/DL (1.8-2.4) L Total Bilirubin 0.3 MG/DL (0.2-1.0) Aspartate Amino Transf (AST/SGOT) 10 U/L (15-37) L Alanine Aminotransferase (ALT/SGPT) 8 U/L (12-78) L Alkaline Phosphatase 55 U/L (46-116) Total Protein 5.6 G/DL (6.4-8.2) L Albumin 1.7 G/DL (3.4-5.0) L Globulin 3.9 g/dL Albumin/Globulin Ratio 0.4 (1.0-2.7) L Vancomycin Level Trough Pending DWAYNE CHERY May 22, 2017 08:56
[2017-05-22] MEDS: Vancomycin 750mg/NS 250ml 250 ML IVPB SCH ×2 (10:23→21:05)
--- NOTE | 2017-05-22 12:50 | Diagnostic Imaging Report ---
Indication: Dyspnea Technique: One view of the chest Comparison: 05/21/2017 Findings: Interim conversion of the endotracheal tube to tracheostomy. Left subclavian central venous catheter is again demonstrated. No pneumothorax or pneumomediastinum. Bilateral pleural effusions and bilateral interstitial edema persist, unchanged. Heart size is normal. Again demonstrated is a gastrostomy and evidence of prior vertebral augmentation procedure. Impression: Interim conversion of endotracheal tube to a tracheostomy. No radiographically evident complication Otherwise stable findings as described
--- NOTE | 2017-05-22 13:33 | General Progress Note ---
Progress Note Progress Note Surgery: POD #1 s/p trach. doing much better. on SIMV. comfortable. good volumes. today awake and responsive. following commands now. recovering. trach care and management. Bert Mauro May 22, 2017 13:33
[2017-05-22] MEDS ORDERED: Potassium Phosphate 20 MM in NS 275 ML IV ONE (13:45)
--- NOTE | 2017-05-22 14:35 | Nephrology Progress Note ---
Assessment/Plan Problem List: (1) Acute respiratory failure with hypoxia and hypercapnia (2) Septic shock (3) Renal insufficiency (4) Hypercalcemia Assessment acute renal failure resolving persistant low mag and K and Phos ? CKD underlying Acute respiratory failure septic shock sever Hypercalcemia, corrected for low Albumin HypoAlbuminemia Anemia Dementia Plan Plan: mag and phos supplement as needed monitor serum Ca 2D echo- Left ventricular ejection fraction estimated to be 65-70%. increase feeding Phos K and Mag supplement as needed hemodynamic support Aredia given 05/10 monitor renal parameters serum cortisol level 12 avoid nephrotoxics per orders Subjective ROS Limited/Unobtainable: Yes Objective Objective Last 24 Hour Vital Signs Date Time Temp Pulse Resp B/P (MAP) Pulse Ox O2 Delivery O2 Flow Rate FiO2 05/22/17 14:00 81 25 137/75 96 Mechanical Ventilator 40 05/22/17 13:00 82 27 138/53 96 Mechanical Ventilator 40 05/22/17 12:39 87 30 40 05/22/17 12:07 82 145/58 05/22/17 12:00 40 05/22/17 12:00 98.8 86 27 145/58 99 Mechanical Ventilator 40 05/22/17 12:00 85 05/22/17 11:03 85 27 40 05/22/17 11:00 87 20 140/48 96 Mechanical Ventilator 40 05/22/17 10:00 85 25 144/55 96 Mechanical Ventilator 40 05/22/17 09:29 83 21 40 05/22/17 09:28 100 05/22/17 09:00 82 20 141/55 98 Mechanical Ventilator 40 05/22/17 08:38 145/50 05/22/17 08:01 87 05/22/17 08:00 81 05/22/17 08:00 40 05/22/17 08:00 99.3 89 25 145/50 99 Mechanical Ventilator 40 05/22/17 07:44 85 22 99 05/22/17 07:12 88 23 40 05/22/17 07:00 85 22 135/68 99 Mechanical Ventilator 40 05/22/17 06:00 92 18 132/56 99 Mechanical Ventilator 40 05/22/17 05:46 85 135/55 05/22/17 05:08 94 22 40 05/22/17 05:00 81 18 134/58 98 Mechanical Ventilator 40 05/22/17 04:00 40 05/22/17 04:00 98.8 83 30 136/57 97 Mechanical Ventilator 40 05/22/17 03:46 86 05/22/17 03:21 91 21 40 05/22/17 03:00 93 24 125/57 98 Mechanical Ventilator 40 05/22/17 02:00 85 20 128/46 99 Mechanical Ventilator 40 05/22/17 01:30 92 24 40 05/22/17 01:00 82 20 131/43 100 Mechanical Ventilator 40 05/22/17 00:01 78 05/22/17 00:00 40 05/22/17 00:00 98.8 85 18 122/54 99 Mechanical Ventilator 40 05/21/17 23:48 89 134/61 05/21/17 23:20 82 18 40 05/21/17 23:00 77 18 130/51 99 Mechanical Ventilator 40 05/21/17 22:00 70 18 148/47 99 Mechanical Ventilator 40 05/21/17 21:00 69 18 125/53 99 Mechanical Ventilator 40 05/21/17 20:46 93 24 40 05/21/17 20:00 40 05/21/17 20:00 98.6 92 26 110/64 100 Mechanical Ventilator 40 05/21/17 19:30 78 05/21/17 19:30 92 22 40 05/21/17 19:00 86 24 150/56 100 Mechanical Ventilator 40 05/21/17 18:31 85 149/60 05/21/17 18:00 74 28 149/60 100 Mechanical Ventilator 40 05/21/17 17:00 88 28 132/70 100 Mechanical Ventilator 40 05/21/17 16:38 91 28 40 05/21/17 16:00 79 05/21/17 16:00 40 05/21/17 16:00 92 27 148/54 100 Mechanical Ventilator 40 05/21/17 15:33 85 18 40 05/21/17 15:27 82 12 100 05/21/17 15:20 40 05/21/17 15:00 98.2 84 18 133/54 100 Mechanical Ventilator 40 Intake and Output 05/21/17 05/22/17 19:00 07:00 Intake Total 1123 ml 1110 ml Output Total 2050 ml 1630 ml Balance -927 ml -520 ml IV Total 748 ml 450 ml Tube Feeding 225 ml 540 ml Other 150 ml 120 ml Output Urine Total 2050 ml 1630 ml # Bowel Movements 2 Laboratory Tests 05/22/17 04:00: Arterial Blood pH 7.456H, Arterial Blood Partial Pressure CO2 32.0L, Arterial Blood Partial Pressure O2 97.5, Arterial Blood HCO3 22.0, Arterial Blood Oxygen Saturation 97.0, Arterial Blood Base Excess -1.4, Kelvin Test Positive 05/22/17 05:00: White Blood Count 9.6, Red Blood Count 2.77L, Hemoglobin 8.3L, Hematocrit 26.1L , Mean Corpuscular Volume 94, Mean Corpuscular Hemoglobin 30.1, Mean Corpuscular Hemoglobin Concent 32.0, Red Cell Distribution Width 17.8H, Platelet Count 600H, Mean Platelet Volume 5.1L, Neutrophils (%) (Auto) 62.5, Lymphocytes (%) (Auto) 22.1, Monocytes (%) (Auto) 9.5, Eosinophils (%) (Auto) 4.9H, Basophils (%) (Auto) 1.1, Sodium Level 143, Potassium Level 3.9, Chloride Level 112H, Carbon Dioxide Level 25, Anion Gap 7, Blood Urea Nitrogen 3L, Creatinine 0.3L, Estimat Glomerular Filtration Rate , Glucose Level 124H, Calcium Level 8.0L, Phosphorus Level 2.9, Magnesium Level 1.6L, Total Bilirubin 0.3, Aspartate Amino Transf (AST/SGOT) 10L, Alanine Aminotransferase (ALT/SGPT) 8L, Alkaline Phosphatase 55, Total Protein 5.6L, Albumin 1.7L, Globulin 3.9, Albumin/Globulin Ratio 0.4L 05/22/17 08:25: Vancomycin Level Trough 13.4H Height (Feet): 5 Height (Inches): 4.00 Weight (Pounds): 171 General Appearance: no apparent distress EENT: other - has trach now Cardiovascular: normal rate Respiratory/Chest: decreased breath sounds Abdomen: soft, other - PEG Objective no other changes ALYSON FLANAGAN May 22, 2017 14:35
--- NOTE | 2017-05-22 16:17 | Cardiac Electrophysiology PN ---
Assessment/Plan Assessment/Plan 1. Recurrent supraventricular tachycardias. Continue Cardizem and digoxin . 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 2. Respiratory failure, on the ventilator, likely due to underlying sepsis and pneumonia. S/P Tracheostomy v 3. Status post septic shock. 4. Toxic encephalopathy. 5. Acute renal failure that has resolved. 6. Seizure disorder. 7. Deep venous thrombosis and pulmonary embolism. 8. Dementia. 9. Status post PEG Subjective Subjective S/P tracheostomy in ICU on Vent. No arrhythmias reported. Objective Last 24 Hour Vital Signs Date Time Temp Pulse Resp B/P (MAP) Pulse Ox O2 Delivery O2 Flow Rate FiO2 05/22/17 15:28 81 29 40 05/22/17 15:00 87 29 137/71 96 Mechanical Ventilator 40 05/22/17 14:00 81 25 137/75 96 Mechanical Ventilator 40 05/22/17 13:00 82 27 138/53 96 Mechanical Ventilator 40 05/22/17 12:39 87 30 40 05/22/17 12:07 82 145/58 05/22/17 12:00 40 05/22/17 12:00 98.8 86 27 145/58 99 Mechanical Ventilator 40 05/22/17 12:00 85 05/22/17 11:03 85 27 40 05/22/17 11:00 87 20 140/48 96 Mechanical Ventilator 40 05/22/17 10:00 85 25 144/55 96 Mechanical Ventilator 40 05/22/17 09:29 83 21 40 05/22/17 09:28 100 05/22/17 09:00 82 20 141/55 98 Mechanical Ventilator 40 05/22/17 08:38 145/50 05/22/17 08:01 87 05/22/17 08:00 81 05/22/17 08:00 40 05/22/17 08:00 99.3 89 25 145/50 99 Mechanical Ventilator 40 05/22/17 07:44 85 22 99 05/22/17 07:12 88 23 40 05/22/17 07:00 85 22 135/68 99 Mechanical Ventilator 40 05/22/17 06:00 92 18 132/56 99 Mechanical Ventilator 40 05/22/17 05:46 85 135/55 05/22/17 05:08 94 22 40 05/22/17 05:00 81 18 134/58 98 Mechanical Ventilator 40 05/22/17 04:00 40 05/22/17 04:00 98.8 83 30 136/57 97 Mechanical Ventilator 40 05/22/17 03:46 86 05/22/17 03:21 91 21 40 05/22/17 03:00 93 24 125/57 98 Mechanical Ventilator 40 05/22/17 02:00 85 20 128/46 99 Mechanical Ventilator 40 05/22/17 01:30 92 24 40 05/22/17 01:00 82 20 131/43 100 Mechanical Ventilator 40 05/22/17 00:01 78 05/22/17 00:00 40 05/22/17 00:00 98.8 85 18 122/54 99 Mechanical Ventilator 40 05/21/17 23:48 89 134/61 05/21/17 23:20 82 18 40 05/21/17 23:00 77 18 130/51 99 Mechanical Ventilator 40 05/21/17 22:00 70 18 148/47 99 Mechanical Ventilator 40 05/21/17 21:00 69 18 125/53 99 Mechanical Ventilator 40 05/21/17 20:46 93 24 40 05/21/17 20:00 40 05/21/17 20:00 98.6 92 26 110/64 100 Mechanical Ventilator 40 05/21/17 19:30 78 05/21/17 19:30 92 22 40 05/21/17 19:00 86 24 150/56 100 Mechanical Ventilator 40 05/21/17 18:31 85 149/60 05/21/17 18:00 74 28 149/60 100 Mechanical Ventilator 40 05/21/17 17:00 88 28 132/70 100 Mechanical Ventilator 40 05/21/17 16:38 91 28 40 Intake and Output 05/21/17 05/22/17 19:00 07:00 Intake Total 1123 ml 1110 ml Output Total 2050 ml 1630 ml Balance -927 ml -520 ml IV Total 748 ml 450 ml Tube Feeding 225 ml 540 ml Other 150 ml 120 ml Output Urine Total 2050 ml 1630 ml # Bowel Movements 2 Laboratory Tests Test 05/22/17 04:00 05/22/17 05:00 05/22/17 08:25 Arterial Blood pH 7.456 (7.350-7.450) Arterial Blood Partial Pressure CO2 32.0 mmHg (35.0-45.0) L Arterial Blood Partial Pressure O2 97.5 mmHg (75.0-100.0) Arterial Blood HCO3 22.0 mmol/L (22.0-26.0) Arterial Blood Oxygen Saturation 97.0 % (92.0-98.0) Arterial Blood Base Excess -1.4 Kelvin Test Positive White Blood Count 9.6 K/UL (4.8-10.8) Red Blood Count 2.77 M/UL (4.20-5.40) L Hemoglobin 8.3 G/DL (12.0-16.0) L Hematocrit 26.1 % (37.0-47.0) L Mean Corpuscular Volume 94 FL (80-99) Mean Corpuscular Hemoglobin 30.1 PG (27.0-31.0) Mean Corpuscular Hemoglobin Concent 32.0 G/DL (32.0-36.0) Red Cell Distribution Width 17.8 % (11.6-14.8) H Platelet Count 600 K/UL (150-450) H Mean Platelet Volume 5.1 FL (6.5-10.1) L Neutrophils (%) (Auto) 62.5 % (45.0-75.0) Lymphocytes (%) (Auto) 22.1 % (20.0-45.0) Monocytes (%) (Auto) 9.5 % (1.0-10.0) Eosinophils (%) (Auto) 4.9 % (0.0-3.0) H Basophils (%) (Auto) 1.1 % (0.0-2.0) Sodium Level 143 MMOL/L (136-145) Potassium Level 3.9 MMOL/L (3.5-5.1) Chloride Level 112 MMOL/L (98-107) H Carbon Dioxide Level 25 MMOL/L (21-32) Anion Gap 7 mmol/L (5-15) Blood Urea Nitrogen 3 mg/dL (7-18) L Creatinine 0.3 MG/DL (0.55-1.30) L Estimat Glomerular Filtration Rate mL/min (>60) Glucose Level 124 MG/DL (74-106) H Calcium Level 8.0 MG/DL (8.5-10.1) L Phosphorus Level 2.9 MG/DL (2.5-4.9) Magnesium Level 1.6 MG/DL (1.8-2.4) L Total Bilirubin 0.3 MG/DL (0.2-1.0) Aspartate Amino Transf (AST/SGOT) 10 U/L (15-37) L Alanine Aminotransferase (ALT/SGPT) 8 U/L (12-78) L Alkaline Phosphatase 55 U/L (46-116) Total Protein 5.6 G/DL (6.4-8.2) L Albumin 1.7 G/DL (3.4-5.0) L Globulin 3.9 g/dL Albumin/Globulin Ratio 0.4 (1.0-2.7) L Vancomycin Level Trough 13.4 ug/mL (5.0-12.0) H Objective HEAD AND NECK: Tracheostomy intact. no JVD. LUNGS: Coarse rhonchi. CARDIOVASCULAR: Regular S1 and S2 with no gallop. ABDOMEN: Soft and nontender.PEG in place EXTREMITIES: No pitting edema. MALLORY BROWN May 22, 2017 16:17
--- NOTE | 2017-05-22 18:58 | Infectious Diseases Prog Note ---
Assessment/Plan Assessment/Plan ASSESSMENT AND PLAN: 1. - sepsis, shock, acinetobacter pna/pseudomonas pna, ? pseudomonas sacral wound infection, vent, ? c.diff., leukocytosis, fevers, sirs, bc/uc/influenza negative, vent - chest x-ray worse, leukocytosis resolved, c.diff. negative, fungal uti - s/p trach - meropenem, vancomycin and amikacin - lotrimin for possible fungal rash, diflucan - check sc, labs, chest x-ray - no pressors - skin care per protocol 2. respiratory failure, on vent, icu care 3. Acute kidney injury, elevated creatinine. 4. Hypertension. 5. Diabetes. 6. Asthma. 7. Alzheimer's with some dementia. 8. Cerebrovascular accident. 9. Aspiration risk. 10. Anemia. 11. Seizures. 12. Memory loss. 13. Past medical history as noted. 14. No allergy. 15. Social history is negative. 16. Family history noncontributory. 17. Case discussed with RN. 18. MAR was noted. 19. Continue treatment per primary consultants. 20. Skin care protocol. 21. Possible fungal rash. Continue cream. 22. Questionable drug rash. 23. Continue supportive care. 24. Critical condition. 25. Notes were reviewed. Subjective Constitutional: Reports: other - s/p trach, Denies: fever HEENT: Reports: congestion Respiratory: Reports: shortness of breath Cardiovascular: Denies: chest pain Gastrointestinal/Abdominal: Denies: nausea, vomiting, diarrhea Genitourinary: Reports: other - + cota Neurologic: Denies: headache Psychiatric: Reports: other - na Skin: Denies: rash Hematologic: Denies: bleeding Musculoskeletal: Denies: pain Allergies: Coded Allergies: NO KNOWN DRUG ALLERGIES (Unverified Allergy, Unknown, 07/29/14) Objective Vital Signs Last 24 Hour Vital Signs Date Time Temp Pulse Resp B/P (MAP) Pulse Ox O2 Delivery O2 Flow Rate FiO2 05/22/17 18:54 85 135/78 05/22/17 18:00 85 26 135/78 96 Mechanical Ventilator 40 05/22/17 17:30 86 24 40 05/22/17 17:00 98.6 78 22 133/76 98 Mechanical Ventilator 35 05/22/17 16:20 88 25 135/77 96 Mechanical Ventilator 40 05/22/17 16:00 80 05/22/17 16:00 35 05/22/17 15:28 81 29 40 05/22/17 15:00 87 29 137/71 96 Mechanical Ventilator 40 05/22/17 14:00 81 25 137/75 96 Mechanical Ventilator 40 05/22/17 13:00 82 27 138/53 96 Mechanical Ventilator 40 05/22/17 12:39 87 30 40 05/22/17 12:07 82 145/58 05/22/17 12:00 40 05/22/17 12:00 98.8 86 27 145/58 99 Mechanical Ventilator 40 05/22/17 12:00 85 05/22/17 11:03 85 27 40 05/22/17 11:00 87 20 140/48 96 Mechanical Ventilator 40 05/22/17 10:00 85 25 144/55 96 Mechanical Ventilator 40 05/22/17 09:29 83 21 40 05/22/17 09:28 100 05/22/17 09:00 82 20 141/55 98 Mechanical Ventilator 40 05/22/17 08:38 145/50 05/22/17 08:01 87 05/22/17 08:00 81 05/22/17 08:00 40 05/22/17 08:00 99.3 89 25 145/50 99 Mechanical Ventilator 40 05/22/17 07:44 85 22 99 05/22/17 07:12 88 23 40 05/22/17 07:00 85 22 135/68 99 Mechanical Ventilator 40 05/22/17 06:00 92 18 132/56 99 Mechanical Ventilator 40 05/22/17 05:46 85 135/55 05/22/17 05:08 94 22 40 05/22/17 05:00 81 18 134/58 98 Mechanical Ventilator 40 05/22/17 04:00 40 05/22/17 04:00 98.8 83 30 136/57 97 Mechanical Ventilator 40 05/22/17 03:46 86 05/22/17 03:21 91 21 40 05/22/17 03:00 93 24 125/57 98 Mechanical Ventilator 40 05/22/17 02:00 85 20 128/46 99 Mechanical Ventilator 40 05/22/17 01:30 92 24 40 05/22/17 01:00 82 20 131/43 100 Mechanical Ventilator 40 05/22/17 00:01 78 05/22/17 00:00 40 05/22/17 00:00 98.8 85 18 122/54 99 Mechanical Ventilator 40 05/21/17 23:48 89 134/61 05/21/17 23:20 82 18 40 05/21/17 23:00 77 18 130/51 99 Mechanical Ventilator 40 05/21/17 22:00 70 18 148/47 99 Mechanical Ventilator 40 05/21/17 21:00 69 18 125/53 99 Mechanical Ventilator 40 05/21/17 20:46 93 24 40 05/21/17 20:00 40 05/21/17 20:00 98.6 92 26 110/64 100 Mechanical Ventilator 40 05/21/17 19:30 78 05/21/17 19:30 92 22 40 05/21/17 19:00 86 24 150/56 100 Mechanical Ventilator 40 Height (Feet): 5 Height (Inches): 4.00 Weight (Pounds): 171 General Appearance: no acute distress HEENT: normocephalic, atraumatic, anicteric, EOMI, no JVD, status post trach Respiratory/Chest: decreased breath sounds, crackles/rales, rhonchi - bilaterally Cardiovascular: normal rate, regular rhythm, no gallop/murmur, no JVD Abdomen: normal bowel sounds, soft, non tender, no organomegaly, non distended Genitourinary: other - + cota - urine clear Extremities: no cyanosis Skin: no rash Neurologic/Psychiatric: urologic surgeon II-XII grossly normal, alert, responsive Lymphatic: no neck adenopathy Musculoskeletal: no effusion Objective 05/12 - chest x-ray - Findings: ET tube and left subclavian central line unchanged in position. Heart size and mediastinal contours are stable. Persistent interstitial opacification/ edema and patchy bilateral airspace opacities with small right pleural effusion. Interval development of a small left lateral pleural effusion and increased left base/retrocardiac opacities. No pneumothorax.. Gastrostomy tube partially visualized. Impression: Slight interval worsening of aeration with development of small left pleural effusion and increasing left basilar atelectasis/consolidation. Support lines and tubes unchanged 05/14 - chest x-ray: Impression: Interstitial and patchy bilateral airspace opacities with continued improved aeration of the right base compared to the prior exam. Support lines/tubes unchanged in position. 05/16 - chest x-ray - no change (report noted) 05/18 - chest x-ray - Impression: Interval worsening of aeration with increasing right midlung and left basilar opacities. 05/20 - chest x-ray - Impression: Little change since previous study. Bilateral airspace and interstitial disease remains. Bilateral pleural effusions. 05/22 - chest x-ray - Impression: Interim conversion of endotracheal tube to a tracheostomy. No radiographically evident complication Otherwise stable findings as described Microbiology Date/Time Source Procedure Growth Status 05/17/17 13:00 Blood Blood Culture - Preliminary NO GROWTH AFTER 4 DAYS Resulted 05/12/17 14:12 Sputum Gram Stain - Final Complete 05/12/17 14:12 Sputum Culture - Final Acinetobacter Baumanii Pseudomonas Aeruginosa Complete 05/15/17 18:00 Stool Clostridium difficile Toxin Assay - Final Complete 05/17/17 13:00 Indwelling Cath Urine Culture - Final Zaria Albicans Complete 05/10/17 10:00 Sacral Wound Gram Stain - Final Complete 05/10/17 10:00 Wound Culture - Final Pseudomonas Aeruginosa Zaria Albicans Usual Skin Beckie Complete Laboratory Tests Test 05/22/17 04:00 05/22/17 05:00 05/22/17 08:25 Arterial Blood pH 7.456 (7.350-7.450) Arterial Blood Partial Pressure CO2 32.0 mmHg (35.0-45.0) L Arterial Blood Partial Pressure O2 97.5 mmHg (75.0-100.0) Arterial Blood HCO3 22.0 mmol/L (22.0-26.0) Arterial Blood Oxygen Saturation 97.0 % (92.0-98.0) Arterial Blood Base Excess -1.4 Kelvin Test Positive White Blood Count 9.6 K/UL (4.8-10.8) Red Blood Count 2.77 M/UL (4.20-5.40) L Hemoglobin 8.3 G/DL (12.0-16.0) L Hematocrit 26.1 % (37.0-47.0) L Mean Corpuscular Volume 94 FL (80-99) Mean Corpuscular Hemoglobin 30.1 PG (27.0-31.0) Mean Corpuscular Hemoglobin Concent 32.0 G/DL (32.0-36.0) Red Cell Distribution Width 17.8 % (11.6-14.8) H Platelet Count 600 K/UL (150-450) H Mean Platelet Volume 5.1 FL (6.5-10.1) L Neutrophils (%) (Auto) 62.5 % (45.0-75.0) Lymphocytes (%) (Auto) 22.1 % (20.0-45.0) Monocytes (%) (Auto) 9.5 % (1.0-10.0) Eosinophils (%) (Auto) 4.9 % (0.0-3.0) H Basophils (%) (Auto) 1.1 % (0.0-2.0) Sodium Level 143 MMOL/L (136-145) Potassium Level 3.9 MMOL/L (3.5-5.1) Chloride Level 112 MMOL/L (98-107) H Carbon Dioxide Level 25 MMOL/L (21-32) Anion Gap 7 mmol/L (5-15) Blood Urea Nitrogen 3 mg/dL (7-18) L Creatinine 0.3 MG/DL (0.55-1.30) L Estimat Glomerular Filtration Rate mL/min (>60) Glucose Level 124 MG/DL (74-106) H Calcium Level 8.0 MG/DL (8.5-10.1) L Phosphorus Level 2.9 MG/DL (2.5-4.9) Magnesium Level 1.6 MG/DL (1.8-2.4) L Total Bilirubin 0.3 MG/DL (0.2-1.0) Aspartate Amino Transf (AST/SGOT) 10 U/L (15-37) L Alanine Aminotransferase (ALT/SGPT) 8 U/L (12-78) L Alkaline Phosphatase 55 U/L (46-116) Total Protein 5.6 G/DL (6.4-8.2) L Albumin 1.7 G/DL (3.4-5.0) L Globulin 3.9 g/dL Albumin/Globulin Ratio 0.4 (1.0-2.7) L Vancomycin Level Trough 13.4 ug/mL (5.0-12.0) H Current Medications Medications (Trade) Dose Ordered Sig/Jacque Route PRN Reason Start Time Stop Time Status Last Admin Dose Admin Acetaminophen (Tylenol) 650 mg Q4H PRN GT Mild Pain/Temp > 100.5 05/17/17 12:00 06/16/17 11:59 05/18/17 20:23 Acetaminophen/ Hydrocodone Bitart ([place] 10/325) 1 tab Q4H PRN GT Moderate to Severe Pain 05/17/17 17:00 05/24/17 16:59 05/19/17 06:23 Albuterol/ Ipratropium (Albuterol/ Ipratropium) 3 ml Q6H PRN HHN Shortness of Breath 05/19/17 10:45 05/24/17 10:44 Amikacin Protocol (Amikacin pharmacy to dose) 1 ea DAILY PRN MISC Per rx protocol 05/18/17 17:45 06/17/17 17:44 Amikacin Sulfate 750 mg/Sodium Chloride 113 ml @ 220 mls/hr Q24H IV 05/21/17 08:00 05/28/17 07:59 05/22/17 08:32 Bisacodyl (Dulcolax) 10 mg DAILYPRN PRN RECTAL Constipation 05/10/17 01:45 06/09/17 01:44 Chlorhexidine Gluconate (Laly-Hex 2%) 1 applic DAILY@1999 TOPIC 05/13/17 20:00 06/12/17 19:59 05/21/17 19:46 Clotrimazole (Lotrimin) 1 applic EVERY 12 HOURS TOPIC 05/10/17 15:00 06/09/17 14:59 05/22/17 08:03 Collagenase (Santyl) 1 applic DAILY TOPIC 05/18/17 09:00 06/17/17 08:59 05/22/17 08:04 Collagenase (Santyl) 1 applic PRN PRN TOPIC soilage 05/17/17 23:15 06/16/17 23:14 05/22/17 08:03 Dextrose (Dextrose 50%) STAT PRN IV Hypoglycemia 05/10/17 01:45 06/09/17 01:44 Digoxin (Lanoxin) 0.25 mg DAILY ORAL 05/18/17 09:00 06/17/17 08:59 05/22/17 08:01 Diltiazem HCl (Cardizem) 10 mg Q1HR PRN IVP Heart rate greater than 120. 05/14/17 19:30 06/13/17 19:29 05/17/17 12:16 Diltiazem HCl (Cardizem) 30 mg EVERY 6 HOURS ORAL 05/17/17 18:00 06/16/17 17:59 05/22/17 18:54 Docusate Sodium (Colace) 100 mg EVERY 12 HOURS ORAL 05/11/17 10:00 06/10/17 09:59 05/22/17 08:01 Fluconazole (Diflucan) 100 mg DAILY@2000 ORAL 05/20/17 20:00 05/27/17 23:59 05/21/17 19:46 Heparin Sodium (Porcine) (Heparin 5000 units/ml) 5,000 units EVERY 12 HOURS SUBQ 05/10/17 09:00 06/09/17 08:59 05/22/17 08:13 Meropenem 1 gm/ Sodium Chloride 100 ml @ 200 mls/hr Q8HR@0630,1430,2230 IVPB 05/18/17 22:30 05/23/17 22:29 05/22/17 18:54 Norepinephrine Bitartrate 8 mg/ Dextrose 254 ml @ 0 mls/hr Q24H IV 05/10/17 09:30 06/09/17 05:59 05/11/17 11:34 Ondansetron HCl (Zofran) 4 mg Q6H PRN IVP Nausea & Vomiting 05/10/17 01:45 06/09/17 01:44 Pantoprazole (Protonix) 40 mg Q12HR IV 05/10/17 21:00 06/09/17 20:59 05/22/17 08:02 Phosphorus (Phospha 250 Neutral) 500 mg THREE TIMES A DAY NG 05/16/17 13:00 06/15/17 12:59 05/22/17 18:54 Polyethylene Glycol (Miralax) 17 gm DAILYPRN PRN ORAL Constipation 05/10/17 01:45 06/09/17 01:44 Potassium Phosphate 20 mm/ Sodium Chloride 281.6667 ml @ 46.944 m... ONCE ONCE IV 05/22/17 13:45 05/22/17 19:44 05/22/17 13:11 Vancomycin HCl (Vanco rx to dose) 1 ea DAILY PRN MISC Per rx protocol 05/10/17 01:45 06/09/17 01:44 Vancomycin/Sodium Chloride 250 ml @ 166.667 mls/hr Q12HR IVPB 05/20/17 21:00 05/25/17 23:59 05/22/17 10:23 TIERA PRADO May 22, 2017 18:58
[2017-05-22] MEDS ORDERED: Albuterol/Ipratropium 3ml neb HHN PRN (20:00)
[2017-05-22] MEDS ORDERED: Amikacin Rx to dose MISC PRN (20:00)
[2017-05-22] MEDS ORDERED: Miralax 17gm pkt GT PRN (20:00)
[2017-05-22] MEDS ORDERED: Acetaminophen 650mg/20.3ml GT PRN (20:00)
[2017-05-22] MEDS ORDERED: dilTIAZem HCl 25mg/5ml Inj IVP PRN (20:00)
[2017-05-22] MEDS: Fluconazole 100mg tab GT SCH (20:09)
[2017-05-22] MEDS: Dyna-Hex 2% Top Sol 2oz TOPIC SCH (20:09)
--- NOTE | 2017-05-22 23:53 | General Progress Note ---
Assessment/Plan Problem List: (1) SVT (supraventricular tachycardia) ICD Codes: I47.1 - SVT (supraventricular tachycardia) SNOMED: 4823868 (2) Septic shock ICD Codes: A41.9 - Sepsis, unspecified organism; R65.21 - Severe sepsis with septic shock SNOMED: 27892112 (3) Acute respiratory failure with hypoxia and hypercapnia ICD Codes: J96.01 - Acute respiratory failure with hypoxia; J96.02 - Acute respiratory failure with hypercapnia SNOMED: 73709582, 47369510, 916617054 (4) Aspiration pneumonia ICD Codes: J69.0 - Pneumonitis due to inhalation of food and vomit SNOMED: 316282854 Qualifiers: Qualified Codes: J69.0 - Pneumonitis due to inhalation of food and vomit (5) Toxic metabolic encephalopathy ICD Codes: G92 - Toxic encephalopathy SNOMED: 443012790 (6) JUJU (acute kidney injury) ICD Codes: N17.9 - Acute kidney failure, unspecified SNOMED: 24932791 (7) Hyponatremia ICD Codes: E87.1 - Hyponatremia SNOMED: 93014058 (8) Hyperkalemia ICD Codes: E87.5 - Hyperkalemia SNOMED: 59900750 (9) Seizure disorder ICD Codes: G40.909 - Epilepsy, unspecified, not intractable, without status epilepticus SNOMED: 919162601 (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 Difficulty weaning Surgery consulted s/p tracheostomy on 05/21/17 Daily SBTs Now off pressors Cardiology consulted given SVT Digoxin and Diltiazem added ID consulted Cont broad-spectrum abx: vanco, zosyn; cipro added for double pseudomonas coverage s/p flagyl (C. diff neg) F/u cultures Trend CBC Trend ABG Monitor CXR Renal consulted s/p IVFs Replete lytes Trend BMP Cont tube feeds via PEG Cont home meds including Depakote Eliquis on hold Pain control, supportive care, bowel regimen DC planning likely to LTAC DVT ppx: SCDs, HSQ GI ppx: PPI Dispo: pending further stabilization, cont ICU care FULL CODE per discussion w/ daughter At the time of my involvement, the patient's condition was critical with high potential for and/or physiologic deterioration secondary to acute respiratory failure 2/2 aspiration pneumonia, sepsis, acute encephalopathy as delineated in the note above. On the above date of service, I spent a total of 36 minutes in the ICU evaluating, managing, and providing critical care services to this patient, including time spent documenting these activities, counseling patient/family, and coordinating care. Critical care services performed include: Telemetry Review Hemodynamic measurement interpretation Laboratory data review and interpretation Ventilator setting review, management, and adjustment Discussion of care plans with patient, family, and/or surrogate decision makers Discussion of patient's care with primary medical team, surgical team, and/or consulting service Decision to obtain further radiologic evaluation, after consideration of risk/ benefit ratio Decision to perform invasive procedure, after consideration of risk/benefit ratio Review of most recent microbiology results with assessment and modification of antimicrobial coverage Discussion of patient's code status and further advancement towards the ultimate goals of care Plan outlined above discussed with patient/family, ENGINEERING DEPARTMENT CHAIR, 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 D/w pulm re weaning Dw cardiology re SVT D/w pt's daughter regarding plan of care, need for tracheostomy D/w ID re abx D/w surgery re tracheostomy Time of note may not reflect time of encounter Subjective Date patient seen: May 22, 2017 Time patient seen: 12:00 ROS Limited/Unobtainable: No Allergies: Coded Allergies: NO KNOWN DRUG ALLERGIES (Unverified Allergy, Unknown, 07/29/14) Subjective No acute o/n events s/p tracheostomy yesterday POD#1 Doing well on SIMV More awake, alert, following commands ROS limited as pt w/ dementia Objective Last 24 Hour Vital Signs Date Time Temp Pulse Resp B/P (MAP) Pulse Ox O2 Delivery O2 Flow Rate FiO2 05/22/17 20:39 92 25 35 05/22/17 20:00 95 05/22/17 19:30 90 26 35 05/22/17 18:54 85 135/78 05/22/17 18:00 85 26 135/78 96 Mechanical Ventilator 40 05/22/17 17:30 86 24 40 05/22/17 17:00 98.6 78 22 133/76 98 Mechanical Ventilator 35 05/22/17 16:20 88 25 135/77 96 Mechanical Ventilator 40 05/22/17 16:00 80 05/22/17 16:00 35 05/22/17 15:28 81 29 40 05/22/17 15:00 87 29 137/71 96 Mechanical Ventilator 40 05/22/17 14:00 81 25 137/75 96 Mechanical Ventilator 40 05/22/17 13:00 82 27 138/53 96 Mechanical Ventilator 40 05/22/17 12:39 87 30 40 05/22/17 12:07 82 145/58 05/22/17 12:00 40 05/22/17 12:00 98.8 86 27 145/58 99 Mechanical Ventilator 40 05/22/17 12:00 85 05/22/17 11:03 85 27 40 05/22/17 11:00 87 20 140/48 96 Mechanical Ventilator 40 05/22/17 10:00 85 25 144/55 96 Mechanical Ventilator 40 05/22/17 09:29 83 21 40 05/22/17 09:28 100 05/22/17 09:00 82 20 141/55 98 Mechanical Ventilator 40 05/22/17 08:38 145/50 05/22/17 08:01 87 05/22/17 08:00 81 05/22/17 08:00 40 05/22/17 08:00 99.3 89 25 145/50 99 Mechanical Ventilator 40 05/22/17 07:44 85 22 99 05/22/17 07:12 88 23 40 05/22/17 07:00 85 22 135/68 99 Mechanical Ventilator 40 05/22/17 06:00 92 18 132/56 99 Mechanical Ventilator 40 05/22/17 05:46 85 135/55 05/22/17 05:08 94 22 40 05/22/17 05:00 81 18 134/58 98 Mechanical Ventilator 40 05/22/17 04:00 40 05/22/17 04:00 98.8 83 30 136/57 97 Mechanical Ventilator 40 05/22/17 03:46 86 05/22/17 03:21 91 21 40 05/22/17 03:00 93 24 125/57 98 Mechanical Ventilator 40 05/22/17 02:00 85 20 128/46 99 Mechanical Ventilator 40 05/22/17 01:30 92 24 40 05/22/17 01:00 82 20 131/43 100 Mechanical Ventilator 40 05/22/17 00:01 78 05/22/17 00:00 40 05/22/17 00:00 98.8 85 18 122/54 99 Mechanical Ventilator 40 Intake and Output 05/21/17 05/22/17 19:00 07:00 Intake Total 1123 ml 1110 ml Output Total 2050 ml 1630 ml Balance -927 ml -520 ml IV Total 748 ml 450 ml Tube Feeding 225 ml 540 ml Other 150 ml 120 ml Output Urine Total 2050 ml 1630 ml # Bowel Movements 2 Laboratory Tests 05/22/17 04:00: Arterial Blood pH 7.456H, Arterial Blood Partial Pressure CO2 32.0L, Arterial Blood Partial Pressure O2 97.5, Arterial Blood HCO3 22.0, Arterial Blood Oxygen Saturation 97.0, Arterial Blood Base Excess -1.4, Kelvin Test Positive 05/22/17 05:00: White Blood Count 9.6, Red Blood Count 2.77L, Hemoglobin 8.3L, Hematocrit 26.1L , Mean Corpuscular Volume 94, Mean Corpuscular Hemoglobin 30.1, Mean Corpuscular Hemoglobin Concent 32.0, Red Cell Distribution Width 17.8H, Platelet Count 600H, Mean Platelet Volume 5.1L, Neutrophils (%) (Auto) 62.5, Lymphocytes (%) (Auto) 22.1, Monocytes (%) (Auto) 9.5, Eosinophils (%) (Auto) 4.9H, Basophils (%) (Auto) 1.1, Sodium Level 143, Potassium Level 3.9, Chloride Level 112H, Carbon Dioxide Level 25, Anion Gap 7, Blood Urea Nitrogen 3L, Creatinine 0.3L, Estimat Glomerular Filtration Rate , Glucose Level 124H, Calcium Level 8.0L, Phosphorus Level 2.9, Magnesium Level 1.6L, Total Bilirubin 0.3, Aspartate Amino Transf (AST/SGOT) 10L, Alanine Aminotransferase (ALT/SGPT) 8L, Alkaline Phosphatase 55, Total Protein 5.6L, Albumin 1.7L, Globulin 3.9, Albumin/Globulin Ratio 0.4L 05/22/17 08:25: Vancomycin Level Trough 13.4H Height (Feet): 5 Height (Inches): 4.00 Weight (Pounds): 171 Objective General: awake, alert, follows simple commands Head: normocephalic, without obvious abnormality, atraumatic Neck: +trach c/d/i Eyes: conjunctivae/corneas clear. PERRL, EOM's intact Throat: lips, mucosa, and tongue normal. MMM Neck: supple, symmetrical, trachea midline, and no JVD Lungs: +rhonchi b/l Heart: regular rate and rhythm, S1, S2 normal, no murmur, click, rub or gallop Abdomen: soft, non-tender, non-distended, bowel sounds normal; +PEG c/d/i Extremities: extremities normal, atraumatic, no cyanosis, +BLE edema Pulses: 2+ and symmetric Skin: skin color, texture, turgor normal; no rashes or lesions Neurologic: moving all extremities Prachi Mejia M.D. May 22, 2017 23:53
[2017-05-23] VITALS: BP 137/59
[2017-05-23] MEDS: dilTIAZem HCl 30mg tab ORAL SCH ×5 (00:01→23:33)
[2017-05-23 04:00] VITALS: BP 144/68
[2017-05-23 05:23] LABS: BASOPHILS % (AUTO) 0.9 % (0.0-2.0); EOSINOPHILS % (AUTO) 5.1 % (0.0-3.0); HEMATOCRIT 25.5 % (37.0-47.0); HEMOGLOBIN 8.2 G/DL (12.0-16.0); LYMPHOCYTES % (AUTO) 29.5 % (20.0-45.0); MEAN CORPUSCULAR VOLUME 94 FL (80-99); MONOCYTES % (AUTO) 10.7 % (1.0-10.0); NEUTROPHILS % (AUTO) 53.8 % (45.0-75.0); PLATELET COUNT 496 K/UL (150-450); RED CELL DISTRIBUTION WIDTH 17.9 % (11.6-14.8)
[2017-05-23 05:48] LABS: ALANINE AMINOTRANSFERASE 6 U/L (12-78); ALBUMIN 1.6 G/DL (3.4-5.0); ALBUMIN/GLOBULIN RATIO 0.4 (1.0-2.7); ALKALINE PHOSPHATASE 56 U/L (46-116); ANION GAP 8 mmol/L (5-15); ASPARTATE AMINO TRANSFERASE 11 U/L (15-37); BILIRUBIN,TOTAL 0.3 MG/DL (0.2-1.0); BLOOD UREA NITROGEN 3 mg/dL (7-18); CALCIUM 8.4 MG/DL (8.5-10.1); CARBON DIOXIDE 24 MMOL/L (21-32); CHLORIDE 110 MMOL/L (98-107); CREATININE 0.3 MG/DL (0.55-1.30); PHOSPHORUS 2.6 MG/DL (2.5-4.9); POTASSIUM 3.7 MMOL/L (3.5-5.1); SODIUM 142 MMOL/L (136-145)
[2017-05-23 08:00] VITALS: BP 139/58
[2017-05-23] MEDS: Amikacin 750 MG in NS 110 ML IV SCH (08:08)
[2017-05-23] MEDS: Phospha 250 Neutral tab NG SCH ×3 (08:57→17:47)
[2017-05-23] MEDS: Heparin 5000 units/ml inj SUBQ SCH ×2 (08:58→20:10)
[2017-05-23] MEDS: Pantoprazole Inj IV SCH ×2 (08:58→19:56)
[2017-05-23] MEDS: Vancomycin 750mg/NS 250ml 250 ML IVPB SCH ×2 (09:00→20:28)
[2017-05-23] MEDS: Docusate 100mg/10ml Liq ORAL SCH ×2 (09:00→19:58)
--- NOTE | 2017-05-23 09:42 | Diagnostic Imaging Report ---
Indication: Dyspnea Technique: One view of the chest Comparison: 05/22/2017 Findings: Bilateral interstitial and airspace opacities, bilateral pleural effusions persist, essentially unchanged. Left subclavian central venous catheter, tracheostomy remain. Gastrostomy, evidence of prior vertebral augmentation again demonstrated Impression: Unchanged, over one day, findings as above.
--- NOTE | 2017-05-23 10:35 | Nephrology Progress Note ---
Assessment/Plan Problem List: (1) Acute respiratory failure with hypoxia and hypercapnia Assessment: no trached (2) Septic shock (3) Renal insufficiency (4) Hypercalcemia Assessment Now trached acute renal failure resolving persistant low mag and K and Phos improved ? CKD underlying Acute respiratory failure, Trached septic shock sever Hypercalcemia, corrected HypoAlbuminemia Anemia Dementia Plan Plan: check Iron panel- IV venofer mag and phos supplement as needed monitor serum Ca 2D echo- Left ventricular ejection fraction estimated to be 65-70%. increase feeding Phos K and Mag supplement as needed hemodynamic support Aredia given 05/10 monitor renal parameters serum cortisol level 12 avoid nephrotoxics per orders Subjective ROS Limited/Unobtainable: No Objective Objective Last 24 Hour Vital Signs Date Time Temp Pulse Resp B/P (MAP) Pulse Ox O2 Delivery O2 Flow Rate FiO2 05/23/17 08:57 80 05/23/17 08:00 35 05/23/17 08:00 99.5 80 23 139/58 98 Mechanical Ventilator 35 05/23/17 07:33 80 05/23/17 07:11 85 20 35 05/23/17 05:38 78 130/70 05/23/17 05:12 90 25 35 05/23/17 04:00 35 05/23/17 04:00 81 05/23/17 04:00 99.2 81 29 144/68 98 Mechanical Ventilator 35 05/23/17 03:26 93 28 35 05/23/17 01:22 88 24 35 05/23/17 00:01 95 130/59 05/23/17 00:00 35 05/23/17 00:00 98 05/23/17 00:00 98.6 87 19 137/59 96 Mechanical Ventilator 35 05/22/17 23:30 91 22 35 05/22/17 20:39 92 25 35 05/22/17 20:00 99.4 89 18 130/59 97 Mechanical Ventilator 35 05/22/17 20:00 95 05/22/17 20:00 35 05/22/17 19:30 90 26 35 05/22/17 18:54 85 135/78 05/22/17 18:00 85 26 135/78 96 Mechanical Ventilator 40 05/22/17 17:30 86 24 40 05/22/17 17:00 98.6 78 22 133/76 98 Mechanical Ventilator 35 05/22/17 16:20 88 25 135/77 96 Mechanical Ventilator 40 05/22/17 16:00 80 05/22/17 16:00 35 05/22/17 15:28 81 29 40 05/22/17 15:00 87 29 137/71 96 Mechanical Ventilator 40 05/22/17 14:00 81 25 137/75 96 Mechanical Ventilator 40 05/22/17 13:00 82 27 138/53 96 Mechanical Ventilator 40 05/22/17 12:39 87 30 40 05/22/17 12:07 82 145/58 05/22/17 12:00 40 05/22/17 12:00 98.8 86 27 145/58 99 Mechanical Ventilator 40 05/22/17 12:00 85 05/22/17 11:03 85 27 40 05/22/17 11:00 87 20 140/48 96 Mechanical Ventilator 40 Intake and Output 05/22/17 05/23/17 19:00 07:00 Intake Total 1751.064 ml 1226.57 ml Output Total 730 ml 2090 ml Balance 1021.064 ml -863.43 ml Intake Free Water 90 ml IV Total 1391.064 ml 596.57 ml Tube Feeding 360 ml 540 ml Output Urine Total 730 ml 2090 ml # Bowel Movements 2 7 Laboratory Tests 05/23/17 03:45: White Blood Count 8.0, Red Blood Count 2.70L, Hemoglobin 8.2L, Hematocrit 25.5L , Mean Corpuscular Volume 94, Mean Corpuscular Hemoglobin 30.2, Mean Corpuscular Hemoglobin Concent 32.0, Red Cell Distribution Width 17.9H, Platelet Count 496H, Mean Platelet Volume 4.6L, Neutrophils (%) (Auto) 53.8, Lymphocytes (%) (Auto) 29.5, Monocytes (%) (Auto) 10.7H, Eosinophils (%) (Auto) 5.1H, Basophils (%) (Auto) 0.9, Sodium Level 142, Potassium Level 3.7, Chloride Level 110H, Carbon Dioxide Level 24, Anion Gap 8, Blood Urea Nitrogen 3L, Creatinine 0.3L, Estimat Glomerular Filtration Rate , Glucose Level 120H, Calcium Level 8.4L, Phosphorus Level 2.6, Magnesium Level 1.8, Total Bilirubin 0.3, Aspartate Amino Transf (AST/SGOT) 11L, Alanine Aminotransferase (ALT/SGPT) 6L, Alkaline Phosphatase 56, Total Protein 5.7L, Albumin 1.6L, Globulin 4.1, Albumin/Globulin Ratio 0.4L 05/23/17 09:12: Arterial Blood pH 7.472H, Arterial Blood Partial Pressure CO2 32.8L, Arterial Blood Partial Pressure O2 87.6, Arterial Blood HCO3 23.4, Arterial Blood Oxygen Saturation 96.5, Arterial Blood Base Excess 0.1, Kelvin Test Positive Height (Feet): 5 Height (Inches): 4.00 Weight (Pounds): 173 EENT: other - trached Cardiovascular: normal rate Respiratory/Chest: decreased breath sounds Abdomen: soft Objective no other changes ALYSON FLANAGAN May 23, 2017 10:35
--- NOTE | 2017-05-23 10:42 | Pulmonolgy Critical Care Note ---
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, 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, 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 Discussed with: nurses, consultants, case aideregional business manager - Objective Last 24 Hour Vital Signs Date Time Temp Pulse Resp B/P (MAP) Pulse Ox O2 Delivery O2 Flow Rate FiO2 05/23/17 08:57 80 05/23/17 08:00 35 05/23/17 08:00 99.5 80 23 139/58 98 Mechanical Ventilator 35 05/23/17 07:33 80 05/23/17 07:11 85 20 35 05/23/17 05:38 78 130/70 05/23/17 05:12 90 25 35 05/23/17 04:00 35 05/23/17 04:00 81 05/23/17 04:00 99.2 81 29 144/68 98 Mechanical Ventilator 35 05/23/17 03:26 93 28 35 05/23/17 01:22 88 24 35 05/23/17 00:01 95 130/59 05/23/17 00:00 35 05/23/17 00:00 98 05/23/17 00:00 98.6 87 19 137/59 96 Mechanical Ventilator 35 05/22/17 23:30 91 22 35 05/22/17 20:39 92 25 35 05/22/17 20:00 99.4 89 18 130/59 97 Mechanical Ventilator 35 05/22/17 20:00 95 05/22/17 20:00 35 05/22/17 19:30 90 26 35 05/22/17 18:54 85 135/78 05/22/17 18:00 85 26 135/78 96 Mechanical Ventilator 40 05/22/17 17:30 86 24 40 05/22/17 17:00 98.6 78 22 133/76 98 Mechanical Ventilator 35 05/22/17 16:20 88 25 135/77 96 Mechanical Ventilator 40 05/22/17 16:00 80 05/22/17 16:00 35 05/22/17 15:28 81 29 40 05/22/17 15:00 87 29 137/71 96 Mechanical Ventilator 40 05/22/17 14:00 81 25 137/75 96 Mechanical Ventilator 40 05/22/17 13:00 82 27 138/53 96 Mechanical Ventilator 40 05/22/17 12:39 87 30 40 05/22/17 12:07 82 145/58 05/22/17 12:00 40 05/22/17 12:00 98.8 86 27 145/58 99 Mechanical Ventilator 40 05/22/17 12:00 85 05/22/17 11:03 85 27 40 05/22/17 11:00 87 20 140/48 96 Mechanical Ventilator 40 Status: awake Condition: critical Neck: full ROM Lungs: clear Heart: HR/BP stable, regular Abdomen: non-tender, feeding tube Extremities: no C/C/E, edema Critical Care - Subjective ROS Limited/Unobtainable: No Intubation Day: trached Condition: improving EKG Rhythm: Sinus Rhythm FI02: 35 Vent Support Breath Rate: 18 Vent Support Mode: AC Vent Tidal Volume: 500 Sputum Amount: Small PEEP: 0.0 PIP: 21 Tube Feeding Amount: 45 I&O: Intake and Output 05/22/17 05/23/17 19:00 07:00 Intake Total 1751.064 ml 1226.57 ml Output Total 730 ml 2090 ml Balance 1021.064 ml -863.43 ml Intake Free Water 90 ml IV Total 1391.064 ml 596.57 ml Tube Feeding 360 ml 540 ml Output Urine Total 730 ml 2090 ml # Bowel Movements 2 7 CXR: no changes, trach intact ET-Tube: 7.5 ET Position: 23 Labs: Laboratory Tests Test 05/23/17 03:45 05/23/17 09:12 White Blood Count 8.0 K/UL (4.8-10.8) Red Blood Count 2.70 M/UL (4.20-5.40) L Hemoglobin 8.2 G/DL (12.0-16.0) L Hematocrit 25.5 % (37.0-47.0) L Mean Corpuscular Volume 94 FL (80-99) Mean Corpuscular Hemoglobin 30.2 PG (27.0-31.0) Mean Corpuscular Hemoglobin Concent 32.0 G/DL (32.0-36.0) Red Cell Distribution Width 17.9 % (11.6-14.8) H Platelet Count 496 K/UL (150-450) H Mean Platelet Volume 4.6 FL (6.5-10.1) L Neutrophils (%) (Auto) 53.8 % (45.0-75.0) Lymphocytes (%) (Auto) 29.5 % (20.0-45.0) Monocytes (%) (Auto) 10.7 % (1.0-10.0) H Eosinophils (%) (Auto) 5.1 % (0.0-3.0) H Basophils (%) (Auto) 0.9 % (0.0-2.0) Sodium Level 142 MMOL/L (136-145) Potassium Level 3.7 MMOL/L (3.5-5.1) Chloride Level 110 MMOL/L (98-107) H Carbon Dioxide Level 24 MMOL/L (21-32) Anion Gap 8 mmol/L (5-15) Blood Urea Nitrogen 3 mg/dL (7-18) L Creatinine 0.3 MG/DL (0.55-1.30) L Estimat Glomerular Filtration Rate mL/min (>60) Glucose Level 120 MG/DL (74-106) H Calcium Level 8.4 MG/DL (8.5-10.1) L Phosphorus Level 2.6 MG/DL (2.5-4.9) Magnesium Level 1.8 MG/DL (1.8-2.4) Total Bilirubin 0.3 MG/DL (0.2-1.0) Aspartate Amino Transf (AST/SGOT) 11 U/L (15-37) L Alanine Aminotransferase (ALT/SGPT) 6 U/L (12-78) L Alkaline Phosphatase 56 U/L (46-116) Total Protein 5.7 G/DL (6.4-8.2) L Albumin 1.6 G/DL (3.4-5.0) L Globulin 4.1 g/dL Albumin/Globulin Ratio 0.4 (1.0-2.7) L Arterial Blood pH 7.472 (7.350-7.450) Arterial Blood Partial Pressure CO2 32.8 mmHg (35.0-45.0) L Arterial Blood Partial Pressure O2 87.6 mmHg (75.0-100.0) Arterial Blood HCO3 23.4 mmol/L (22.0-26.0) Arterial Blood Oxygen Saturation 96.5 % (92.0-98.0) Arterial Blood Base Excess 0.1 Kelvin Test Positive DWAYNE CHERY May 23, 2017 10:42
[2017-05-23 12:00] VITALS: BP 140/64
--- NOTE | 2017-05-23 12:03 | Cardiac Electrophysiology PN ---
Assessment/Plan Assessment/Plan 1. Recurrent supraventricular tachycardias. Stable on Cardizem and digoxin . 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 2. Respiratory failure, on the ventilator, likely due to underlying sepsis and pneumonia. S/P Tracheostomy. Being weaned. 3. Status post septic shock. 4. Toxic encephalopathy. 5. Acute renal failure that has resolved. 6. Seizure disorder. 7. Deep venous thrombosis and pulmonary embolism. 8. Dementia. 9. Status post PEG DW RN Subjective Subjective On vent via tracheostomy. Transferred to [facility]. ICU on Vent. No arrhythmias reported. Objective Last 24 Hour Vital Signs Date Time Temp Pulse Resp B/P (MAP) Pulse Ox O2 Delivery O2 Flow Rate FiO2 05/23/17 10:52 77 21 35 05/23/17 08:57 80 05/23/17 08:49 78 20 35 05/23/17 08:00 35 05/23/17 08:00 99.5 80 23 139/58 98 Mechanical Ventilator 35 05/23/17 07:33 80 05/23/17 07:11 85 20 35 05/23/17 05:38 78 130/70 05/23/17 05:12 90 25 35 05/23/17 04:00 35 05/23/17 04:00 81 05/23/17 04:00 99.2 81 29 144/68 98 Mechanical Ventilator 35 05/23/17 03:26 93 28 35 05/23/17 01:22 88 24 35 05/23/17 00:01 95 130/59 05/23/17 00:00 35 05/23/17 00:00 98 05/23/17 00:00 98.6 87 19 137/59 96 Mechanical Ventilator 35 05/22/17 23:30 91 22 35 05/22/17 20:39 92 25 35 05/22/17 20:00 99.4 89 18 130/59 97 Mechanical Ventilator 35 05/22/17 20:00 95 05/22/17 20:00 35 05/22/17 19:30 90 26 35 05/22/17 18:54 85 135/78 05/22/17 18:00 85 26 135/78 96 Mechanical Ventilator 40 05/22/17 17:30 86 24 40 05/22/17 17:00 98.6 78 22 133/76 98 Mechanical Ventilator 35 05/22/17 16:20 88 25 135/77 96 Mechanical Ventilator 40 05/22/17 16:00 80 05/22/17 16:00 35 05/22/17 15:28 81 29 40 05/22/17 15:00 87 29 137/71 96 Mechanical Ventilator 40 05/22/17 14:00 81 25 137/75 96 Mechanical Ventilator 40 05/22/17 13:00 82 27 138/53 96 Mechanical Ventilator 40 05/22/17 12:39 87 30 40 05/22/17 12:07 82 145/58 05/22/17 12:00 40 05/22/17 12:00 98.8 86 27 145/58 99 Mechanical Ventilator 40 05/22/17 12:00 85 Intake and Output 05/22/17 05/23/17 19:00 07:00 Intake Total 1751.064 ml 1226.57 ml Output Total 730 ml 2090 ml Balance 1021.064 ml -863.43 ml Intake Free Water 90 ml IV Total 1391.064 ml 596.57 ml Tube Feeding 360 ml 540 ml Output Urine Total 730 ml 2090 ml # Bowel Movements 2 7 Laboratory Tests Test 05/23/17 03:45 05/23/17 09:12 05/23/17 11:25 White Blood Count 8.0 K/UL (4.8-10.8) Red Blood Count 2.70 M/UL (4.20-5.40) L Hemoglobin 8.2 G/DL (12.0-16.0) L Hematocrit 25.5 % (37.0-47.0) L Mean Corpuscular Volume 94 FL (80-99) Mean Corpuscular Hemoglobin 30.2 PG (27.0-31.0) Mean Corpuscular Hemoglobin Concent 32.0 G/DL (32.0-36.0) Red Cell Distribution Width 17.9 % (11.6-14.8) H Platelet Count 496 K/UL (150-450) H Mean Platelet Volume 4.6 FL (6.5-10.1) L Neutrophils (%) (Auto) 53.8 % (45.0-75.0) Lymphocytes (%) (Auto) 29.5 % (20.0-45.0) Monocytes (%) (Auto) 10.7 % (1.0-10.0) H Eosinophils (%) (Auto) 5.1 % (0.0-3.0) H Basophils (%) (Auto) 0.9 % (0.0-2.0) Sodium Level 142 MMOL/L (136-145) Potassium Level 3.7 MMOL/L (3.5-5.1) Chloride Level 110 MMOL/L (98-107) H Carbon Dioxide Level 24 MMOL/L (21-32) Anion Gap 8 mmol/L (5-15) Blood Urea Nitrogen 3 mg/dL (7-18) L Creatinine 0.3 MG/DL (0.55-1.30) L Estimat Glomerular Filtration Rate mL/min (>60) Glucose Level 120 MG/DL (74-106) H Calcium Level 8.4 MG/DL (8.5-10.1) L Phosphorus Level 2.6 MG/DL (2.5-4.9) Magnesium Level 1.8 MG/DL (1.8-2.4) Total Bilirubin 0.3 MG/DL (0.2-1.0) Aspartate Amino Transf (AST/SGOT) 11 U/L (15-37) L Alanine Aminotransferase (ALT/SGPT) 6 U/L (12-78) L Alkaline Phosphatase 56 U/L (46-116) Total Protein 5.7 G/DL (6.4-8.2) L Albumin 1.6 G/DL (3.4-5.0) L Globulin 4.1 g/dL Albumin/Globulin Ratio 0.4 (1.0-2.7) L Arterial Blood pH 7.472 (7.350-7.450) Arterial Blood Partial Pressure CO2 32.8 mmHg (35.0-45.0) L Arterial Blood Partial Pressure O2 87.6 mmHg (75.0-100.0) Arterial Blood HCO3 23.4 mmol/L (22.0-26.0) Arterial Blood Oxygen Saturation 96.5 % (92.0-98.0) Arterial Blood Base Excess 0.1 Kelvin Test Positive Iron Level Pending Unsaturated Iron Binding Pending Ferritin Pending Objective HEAD AND NECK: Tracheostomy intact. no JVD. LUNGS: Coarse rhonchi. CARDIOVASCULAR: Regular S1 and S2 with no gallop. ABDOMEN: Soft and nontender.PEG in place EXTREMITIES: No pitting edema. MALLORY BROWN May 23, 2017 12:03
[2017-05-23 12:26] LABS: % IRON SATURATION 16 % (15-50); FERRITIN 116 NG/ML (8-388); IRON 19 ug/dL (50-175); TOTAL IRON BINDING CAPACITY 117 ug/dL (250-450)
[2017-05-23] MEDS ORDERED: Potassium Phosphate 20 MM in NS 275 ML IV ONE (13:45)
[2017-05-23 16:00] VITALS: BP 135/58
--- NOTE | 2017-05-23 16:31 | General Progress Note ---
Progress Note Progress Note Surgery: POD #2 s/p trach. doing much better. on SIMV. comfortable. good volumes. today awake and responsive. following commands recovering. trach care and management. dressings prn Bert Mauro May 23, 2017 16:31
--- NOTE | 2017-05-23 17:23 | General Progress Note ---
Assessment/Plan Problem List: (1) SVT (supraventricular tachycardia) ICD Codes: I47.1 - SVT (supraventricular tachycardia) SNOMED: 6911952 (2) Septic shock ICD Codes: A41.9 - Sepsis, unspecified organism; R65.21 - Severe sepsis with septic shock SNOMED: 54347988 (3) Acute respiratory failure with hypoxia and hypercapnia ICD Codes: J96.01 - Acute respiratory failure with hypoxia; J96.02 - Acute respiratory failure with hypercapnia SNOMED: 49589382, 12742340, 373214943 (4) Aspiration pneumonia ICD Codes: J69.0 - Pneumonitis due to inhalation of food and vomit SNOMED: 908573576 Qualifiers: Qualified Codes: J69.0 - Pneumonitis due to inhalation of food and vomit (5) Toxic metabolic encephalopathy ICD Codes: G92 - Toxic encephalopathy SNOMED: 238942125 (6) JUJU (acute kidney injury) ICD Codes: N17.9 - Acute kidney failure, unspecified SNOMED: 65902968 (7) Hyponatremia ICD Codes: E87.1 - Hyponatremia SNOMED: 46408229 (8) Hyperkalemia ICD Codes: E87.5 - Hyperkalemia SNOMED: 17001699 (9) Seizure disorder ICD Codes: G40.909 - Epilepsy, unspecified, not intractable, without status epilepticus SNOMED: 465993133 (10) DVT/PE (11) Dementia ICD Codes: F03.90 - Dementia SNOMED: 32720340 (12) S/P percutaneous endoscopic gastrostomy (PEG) tube placement ICD Codes: Z93.1 - Gastrostomy status SNOMED: 556347018 (13) Hypercalcemia ICD Codes: E83.52 - Hypercalcemia SNOMED: 66278217 (14) Hypophosphatemia ICD Codes: E83.39 - Other disorders of phosphorus metabolism SNOMED: 2605016 (15) Hypomagnesemia ICD Codes: E83.42 - Hypomagnesemia SNOMED: 404995139 (16) Hypokalemia ICD Codes: E87.6 - Hypokalemia SNOMED: 64537723 (17) Status post tracheostomy ICD Codes: Z93.0 - Tracheostomy status SNOMED: 41744292, 264358735 (18) S/P percutaneous endoscopic gastrostomy (PEG) tube placement ICD Codes: Z93.1 - Gastrostomy status SNOMED: 457987859 Status: stable Assessment/Plan Pulm consulted s/p tracheostomy on 05/21/17 Cont to wean as tolerated Daily SBTs Now off pressors Cardiology consulted given SVT Digoxin and Diltiazem added ID consulted Cont broad-spectrum abx: vanco, zosyn; cipro added for double pseudomonas coverage s/p flagyl (C. diff neg) F/u cultures Trend CBC Trend ABG Monitor CXR Renal consulted s/p IVFs Replete lytes Trend BMP Cont tube feeds via PEG Cont home meds including Depakote Eliquis on hold Pain control, supportive care, bowel regimen DC planning likely to subacute SNF vs LTAC DVT ppx: SCDs, HSQ GI ppx: PPI Dispo: pending placement to sub-acute SNF for continued weaning FULL CODE per discussion w/ daughter Plan outlined above discussed with patient/family, RN, SW/CM, pulm, cardiology, ID regarding mgmt and dispo D/w CM re d/c planning to subacute vs LTAC D/w pulm re weaning D/w ID re abx D/w surgery re tracheostomy Time of note may not reflect time of encounter Subjective Date patient seen: May 23, 2017 Time patient seen: 12:00 ROS Limited/Unobtainable: Yes Allergies: Coded Allergies: NO KNOWN DRUG ALLERGIES (Unverified Allergy, Unknown, 07/29/14) Subjective No acute o/n events s/p tracheostomy POD#2 Doing well on SIMV More awake, alert, following commands Denies pain, SOB ROS limited as pt w/ dementia Objective Last 24 Hour Vital Signs Date Time Temp Pulse Resp B/P (MAP) Pulse Ox O2 Delivery O2 Flow Rate FiO2 05/23/17 17:07 84 18 35 05/23/17 16:00 98.8 82 18 135/58 97 Mechanical Ventilator 35 05/23/17 16:00 35 05/23/17 14:30 74 21 35 05/23/17 12:40 76 21 35 05/23/17 12:37 78 140/64 05/23/17 12:00 98.8 78 18 140/64 97 Mechanical Ventilator 35 05/23/17 12:00 35 05/23/17 11:50 74 05/23/17 10:52 77 21 35 05/23/17 08:57 80 05/23/17 08:49 78 20 35 05/23/17 08:00 35 05/23/17 08:00 99.5 80 23 139/58 98 Mechanical Ventilator 35 05/23/17 07:33 80 05/23/17 07:11 85 20 35 05/23/17 05:38 78 130/70 05/23/17 05:12 90 25 35 05/23/17 04:00 35 05/23/17 04:00 81 05/23/17 04:00 99.2 81 29 144/68 98 Mechanical Ventilator 35 05/23/17 03:26 93 28 35 05/23/17 01:22 88 24 35 05/23/17 00:01 95 130/59 05/23/17 00:00 35 05/23/17 00:00 98 05/23/17 00:00 98.6 87 19 137/59 96 Mechanical Ventilator 35 05/22/17 23:30 91 22 35 05/22/17 20:39 92 25 35 05/22/17 20:00 99.4 89 18 130/59 97 Mechanical Ventilator 35 05/22/17 20:00 95 05/22/17 20:00 35 05/22/17 19:30 90 26 35 05/22/17 18:54 85 135/78 05/22/17 18:00 85 26 135/78 96 Mechanical Ventilator 40 05/22/17 17:30 86 24 40 Intake and Output 05/22/17 05/23/17 19:00 07:00 Intake Total 1751.064 ml 1226.57 ml Output Total 730 ml 2090 ml Balance 1021.064 ml -863.43 ml Intake Free Water 90 ml IV Total 1391.064 ml 596.57 ml Tube Feeding 360 ml 540 ml Output Urine Total 730 ml 2090 ml # Bowel Movements 2 7 Laboratory Tests 05/23/17 03:45: White Blood Count 8.0, Red Blood Count 2.70L, Hemoglobin 8.2L, Hematocrit 25.5L , Mean Corpuscular Volume 94, Mean Corpuscular Hemoglobin 30.2, Mean Corpuscular Hemoglobin Concent 32.0, Red Cell Distribution Width 17.9H, Platelet Count 496H, Mean Platelet Volume 4.6L, Neutrophils (%) (Auto) 53.8, Lymphocytes (%) (Auto) 29.5, Monocytes (%) (Auto) 10.7H, Eosinophils (%) (Auto) 5.1H, Basophils (%) (Auto) 0.9, Sodium Level 142, Potassium Level 3.7, Chloride Level 110H, Carbon Dioxide Level 24, Anion Gap 8, Blood Urea Nitrogen 3L, Creatinine 0.3L, Estimat Glomerular Filtration Rate , Glucose Level 120H, Calcium Level 8.4L, Phosphorus Level 2.6, Magnesium Level 1.8, Total Bilirubin 0.3, Aspartate Amino Transf (AST/SGOT) 11L, Alanine Aminotransferase (ALT/SGPT) 6L, Alkaline Phosphatase 56, Total Protein 5.7L, Albumin 1.6L, Globulin 4.1, Albumin/Globulin Ratio 0.4L 05/23/17 09:12: Arterial Blood pH 7.472H, Arterial Blood Partial Pressure CO2 32.8L, Arterial Blood Partial Pressure O2 87.6, Arterial Blood HCO3 23.4, Arterial Blood Oxygen Saturation 96.5, Arterial Blood Base Excess 0.1, Kelvin Test Positive 05/23/17 11:25: Iron Level 19L, Total Iron Binding Capacity 117L, Percent Iron Saturation 16, Unsaturated Iron Binding 98L, Ferritin 116 Height (Feet): 5 Height (Inches): 4.00 Weight (Pounds): 173 Objective General: awake, alert, follows simple commands Head: normocephalic, without obvious abnormality, atraumatic Neck: +trach c/d/i Eyes: conjunctivae/corneas clear. PERRL, EOM's intact Throat: lips, mucosa, and tongue normal. MMM Neck: supple, symmetrical, trachea midline, and no JVD. +Trach c/d/i Lungs: +rhonchi b/l Heart: regular rate and rhythm, S1, S2 normal, no murmur, click, rub or gallop Abdomen: soft, non-tender, non-distended, bowel sounds normal; +PEG c/d/i Extremities: extremities normal, atraumatic, no cyanosis, +BLE edema Pulses: 2+ and symmetric Skin: skin color, texture, turgor normal; no rashes or lesions Neurologic: moving all extremities Prachi Mejia M.D. May 23, 2017 17:23
[2017-05-23] MEDS: Fluconazole 100mg tab GT SCH (19:55)
[2017-05-23] MEDS: Dyna-Hex 2% Top Sol 2oz TOPIC SCH (19:56)
[2017-05-23] MEDS: HYDROcodone/Acetamin 10/325 tab GT PRN (19:56)
[2017-05-23 20:00] VITALS: BP 129/65
[2017-05-24] VITALS: BP 129/51
[2017-05-24 04:00] VITALS: BP 146/64
[2017-05-24 04:53] LABS: BASOPHILS % (AUTO) 1.4 % (0.0-2.0); EOSINOPHILS % (AUTO) 15.1 % (0.0-3.0); HEMATOCRIT 25.1 % (37.0-47.0); HEMOGLOBIN 8.1 G/DL (12.0-16.0); LYMPHOCYTES % (AUTO) 37.2 % (20.0-45.0); MEAN CORPUSCULAR VOLUME 93 FL (80-99); MONOCYTES % (AUTO) 9.9 % (1.0-10.0); NEUTROPHILS % (AUTO) 36.4 % (45.0-75.0); PLATELET COUNT 445 K/UL (150-450); RED BLOOD COUNT 2.69 M/UL (4.20-5.40); RED CELL DISTRIBUTION WIDTH 17.3 % (11.6-14.8); WHITE BLOOD COUNT 7.1 K/UL (4.8-10.8)
[2017-05-24 05:18] LABS: ALANINE AMINOTRANSFERASE 8 U/L (12-78); ALBUMIN 1.6 G/DL (3.4-5.0); ALBUMIN/GLOBULIN RATIO 0.4 (1.0-2.7); ALKALINE PHOSPHATASE 53 U/L (46-116); ANION GAP 7 mmol/L (5-15); ASPARTATE AMINO TRANSFERASE 10 U/L (15-37); BILIRUBIN,TOTAL 0.2 MG/DL (0.2-1.0); BLOOD UREA NITROGEN 4 mg/dL (7-18); CALCIUM 8.4 MG/DL (8.5-10.1); CARBON DIOXIDE 25 MMOL/L (21-32); CHLORIDE 111 MMOL/L (98-107); CREATININE 0.3 MG/DL (0.55-1.30); PHOSPHORUS 2.6 MG/DL (2.5-4.9); POTASSIUM 3.5 MMOL/L (3.5-5.1); SODIUM 143 MMOL/L (136-145)
[2017-05-24] MEDS: dilTIAZem HCl 30mg tab ORAL SCH ×3 (05:57→17:43)
[2017-05-24] MEDS: HYDROcodone/Acetamin 10/325 tab GT PRN ×2 (05:58→20:41)
[2017-05-24 08:00] VITALS: BP 137/56
[2017-05-24] MEDS: Amikacin 750 MG in NS 110 ML IV SCH (08:00)
[2017-05-24] MEDS: Pantoprazole Inj IV SCH (08:41)
[2017-05-24] MEDS: Phospha 250 Neutral tab NG SCH ×3 (08:42→17:43)
[2017-05-24] MEDS: Heparin 5000 units/ml inj SUBQ SCH ×2 (08:43→20:44)
[2017-05-24] MEDS: Docusate 100mg/10ml Liq ORAL SCH ×2 (08:44→21:00)
[2017-05-24] MEDS: Vancomycin 750mg/NS 250ml 250 ML IVPB SCH ×2 (09:01→21:00)
--- NOTE | 2017-05-24 10:18 | Diagnostic Imaging Report ---
Indication: Dyspnea Technique: One view of the chest Comparison: 05/23/2017 Findings: Bilateral interstitial and airspace opacities persist, unchanged. Bilateral pleural effusions persist. Tubes and lines remain in stable positions Impression: Unchanged, over one day, findings as above.
[2017-05-24] MEDS ORDERED: LANOXIN250 MCG ORAL (10:37)
[2017-05-24] MEDS ORDERED: CARDIZEM30 MG ORAL (10:37)
--- NOTE | 2017-05-24 10:42 | Pulmonology Progress Note ---
Assessment/Plan Problems: (1) Acute respiratory failure with hypoxia and hypercapnia (2) Status post tracheostomy (3) Dementia (4) SVT (supraventricular tachycardia) (5) Sepsis Respiratory: adjust tidal volume, monitor respiratory rate Cardiac: start pressors Renal: F/U I&O, keep IV fluid Infectious Disease: check cultures Gastrointestinal: hold feedings Endocrine: check TSH, check HgA1C, continue sliding scale insulin Hematologic: transfuse if hgb<8.5 Neurologic: PRN Ativan, PRN Morphine, keep patient comfortable Affect: PRN ativan Disposition: keep in ICU Notes Reviewed: cardio, renal Discussed with: consultants Subjective ROS Limited/Unobtainable: No Constitutional: Reports: no symptoms HEENT: Repors: no symptoms Allergies: Coded Allergies: NO KNOWN DRUG ALLERGIES (Unverified Allergy, Unknown, 07/29/14) Objective Last 24 Hour Vital Signs Date Time Temp Pulse Resp B/P (MAP) Pulse Ox O2 Delivery O2 Flow Rate FiO2 05/24/17 09:11 100 05/24/17 09:06 69 18 35 05/24/17 08:59 67 18 35 05/24/17 08:42 75 05/24/17 08:00 98.7 75 18 137/56 97 Mechanical Ventilator 35 05/24/17 08:00 35 05/24/17 08:00 70 05/24/17 06:52 69 21 35 05/24/17 05:57 78 129/51 05/24/17 04:46 78 21 35 05/24/17 04:00 35 05/24/17 04:00 76 05/24/17 04:00 98.6 72 20 146/64 99 Mechanical Ventilator 35 05/24/17 03:22 75 20 35 05/24/17 01:15 76 19 35 05/24/17 00:00 75 05/24/17 00:00 98.2 70 18 129/51 96 Mechanical Ventilator 35 05/24/17 00:00 35 05/23/17 23:33 70 129/65 05/23/17 23:02 70 25 35 05/23/17 21:02 67 18 35 05/23/17 20:00 98.6 75 20 129/65 96 Mechanical Ventilator 35 05/23/17 20:00 82 05/23/17 20:00 35 05/23/17 19:24 74 18 35 05/23/17 17:48 84 135/58 05/23/17 17:07 84 18 35 05/23/17 16:54 78 05/23/17 16:00 98.8 82 18 135/58 97 Mechanical Ventilator 35 05/23/17 16:00 35 05/23/17 14:30 74 21 35 05/23/17 12:40 76 21 35 05/23/17 12:37 78 140/64 05/23/17 12:00 98.8 78 18 140/64 97 Mechanical Ventilator 35 05/23/17 12:00 35 05/23/17 11:50 74 05/23/17 10:52 77 21 35 Intake and Output 05/23/17 05/24/17 19:00 07:00 Intake Total 1123.000 ml 1145 ml Output Total 1250 ml 1300 ml Balance -127.000 ml -155 ml Intake Free Water 100 ml IV Total 463.000 ml 505 ml Tube Feeding 540 ml 540 ml Blood Product 0 ml Other 120 ml Output Urine Total 1250 ml 1300 ml # Bowel Movements 5 3 General Appearance: WD/WN HEENT: atraumatic, status post trach Respiratory/Chest: normal breath sounds Breasts: no masses Cardiovascular: normal peripheral pulses Abdomen: normal bowel sounds, soft, non tender Genitourinary: normal external genitalia Extremities: no clubbing Skin: no lesions, no ulcers Neurologic/Psychiatric: alert Lymphatic: no neck adenopathy Laboratory Tests 05/23/17 11:25: Iron Level 19L, Total Iron Binding Capacity 117L, Percent Iron Saturation 16, Unsaturated Iron Binding 98L, Ferritin 116 05/24/17 04:00: White Blood Count 7.1, Red Blood Count 2.69L, Hemoglobin 8.1L, Hematocrit 25.1L , Mean Corpuscular Volume 93, Mean Corpuscular Hemoglobin 30.3, Mean Corpuscular Hemoglobin Concent 32.5, Red Cell Distribution Width 17.3H, Platelet Count 445, Mean Platelet Volume 4.7L, Neutrophils (%) (Auto) 36.4L, Lymphocytes (%) (Auto) 37.2, Monocytes (%) (Auto) 9.9, Eosinophils (%) (Auto) 15.1H, Basophils (%) (Auto) 1.4, Sodium Level 143, Potassium Level 3.5, Chloride Level 111H, Carbon Dioxide Level 25, Anion Gap 7, Blood Urea Nitrogen 4L, Creatinine 0.3L, Estimat Glomerular Filtration Rate , Glucose Level 105, Uric Acid 1.3L, Calcium Level 8.4L, Phosphorus Level 2.6, Magnesium Level 1.4L, Total Bilirubin 0.2, Aspartate Amino Transf (AST/SGOT) 10L, Alanine Aminotransferase (ALT/SGPT) 8L, Alkaline Phosphatase 53, Pro-B-Type Natriuretic Peptide 1095H, Total Protein 5.6L, Albumin 1.6L, Globulin 4.0, Albumin/Globulin Ratio 0.4L, Vitamin B12 Level 1869H, Folate 10.7 Current Medications Medications (Trade) Dose Ordered Sig/Jacque Route PRN Reason Start Time Stop Time Status Last Admin Dose Admin Acetaminophen (Tylenol) 650 mg Q4H PRN GT Mild Pain/Temp > 100.5 05/22/17 20:00 06/16/17 11:59 Acetaminophen/ Hydrocodone Bitart ([place] 10/325) 1 tab Q4H PRN GT Moderate to Severe Pain 05/22/17 21:00 05/24/17 16:59 05/24/17 05:58 Albuterol/ Ipratropium (Albuterol/ Ipratropium) 3 ml Q6H PRN HHN Shortness of Breath 05/22/17 20:00 05/24/17 19:59 Amikacin Protocol (Amikacin pharmacy to dose) 1 ea DAILYPRN PRN MISC Per rx protocol 05/22/17 20:00 06/21/17 19:59 Amikacin Sulfate 750 mg/Sodium Chloride 113 ml @ 220 mls/hr Q24H IV 05/23/17 08:00 05/28/17 07:59 05/24/17 08:00 Bisacodyl (Dulcolax) 10 mg DAILYPRN PRN RECTAL Constipation 2nd Line agent 05/22/17 20:00 06/21/17 19:59 Chlorhexidine Gluconate (Laly-Hex 2%) 1 applic DAILY@1999 TOPIC 05/22/17 20:00 06/12/17 19:59 05/23/17 19:56 Clotrimazole (Lotrimin) 1 applic EVERY 12 HOURS TOPIC 05/22/17 21:00 06/09/17 14:59 05/24/17 08:45 Collagenase (Santyl) 1 applic DAILY TOPIC 05/23/17 09:00 06/17/17 08:59 05/24/17 08:45 Collagenase (Santyl) 1 applic DAILYPRN PRN TOPIC soilage 05/22/17 20:00 06/21/17 19:59 05/23/17 20:00 Dextrose (Dextrose 50%) STAT PRN IV Hypoglycemia 05/22/17 20:00 06/21/17 19:59 Digoxin (Lanoxin) 0.25 mg DAILY ORAL 05/23/17 09:00 06/17/17 08:59 05/24/17 08:42 Diltiazem HCl (Cardizem) 10 mg Q1H PRN IVP HR > 120 05/22/17 20:00 06/21/17 19:59 Diltiazem HCl (Cardizem) 30 mg EVERY 6 HOURS ORAL 05/23/17 00:00 06/16/17 17:59 05/24/17 05:57 Docusate Sodium (Colace) 100 mg EVERY 12 HOURS ORAL 05/22/17 21:00 06/10/17 09:59 05/22/17 21:09 Fluconazole (Diflucan) 100 mg DAILY@2000 GT 05/22/17 20:00 05/27/17 23:59 05/23/17 19:55 Heparin Sodium (Porcine) (Heparin 5000 units/ml) 5,000 units EVERY 12 HOURS SUBQ 05/22/17 21:00 06/09/17 08:59 05/24/17 08:43 Iron Sucrose 100 mg/Sodium Chloride 55 ml @ 200 mls/hr BEDTIME IV 05/23/17 21:00 06/01/17 21:17 05/23/17 19:57 Magnesium Sulfate 100 ml @ 100 mls/hr Q1H IVPB 05/24/17 09:00 05/24/17 10:59 05/24/17 10:01 Meropenem 1 gm/ Sodium Chloride 100 ml @ 200 mls/hr Q8HR@0630,1430,2230 IVPB 05/22/17 22:30 05/28/17 22:29 05/24/17 05:58 Ondansetron HCl (Zofran) 4 mg Q6H PRN IVP Nausea & Vomiting 05/22/17 19:45 06/09/17 01:44 Pantoprazole (Protonix) 40 mg Q12HR IV 05/22/17 21:00 06/09/17 20:59 05/24/17 08:41 Phosphorus (Phospha 250 Neutral) 500 mg THREE TIMES A DAY NG 05/23/17 09:00 06/15/17 12:59 05/24/17 08:42 Polyethylene Glycol (Miralax) 17 gm DAILYPRN PRN GT Constipation 05/22/17 20:00 06/21/17 19:59 Vancomycin HCl (Vanco rx to dose) 1 ea DAILYPRN PRN MISC Per rx protocol 05/23/17 09:00 06/22/17 08:59 Vancomycin/Sodium Chloride 250 ml @ 166.667 mls/hr Q12HR IVPB 05/22/17 21:00 05/25/17 23:59 05/24/17 09:01 DWAYNE CHERY May 24, 2017 10:42
[2017-05-24] MEDS ORDERED: Tubing IV Secondary IV ONE (10:43)
[2017-05-24] MEDS ORDERED: Sterile Water Irrig 1000ml IRRIG ONE (10:43)
[2017-05-24] MEDS ORDERED: NS 275ml ONE (10:43)
[2017-05-24 12:00] VITALS: BP 135/67
--- NOTE | 2017-05-24 12:32 | General Progress Note ---
Assessment/Plan Problem List: (1) SVT (supraventricular tachycardia) ICD Codes: I47.1 - SVT (supraventricular tachycardia) SNOMED: 1332710 (2) Septic shock ICD Codes: A41.9 - Sepsis, unspecified organism; R65.21 - Severe sepsis with septic shock SNOMED: 81078312 (3) Acute respiratory failure with hypoxia and hypercapnia ICD Codes: J96.01 - Acute respiratory failure with hypoxia; J96.02 - Acute respiratory failure with hypercapnia SNOMED: 38999521, 82807408, 404716320 (4) Aspiration pneumonia ICD Codes: J69.0 - Pneumonitis due to inhalation of food and vomit SNOMED: 474880241 Qualifiers: Qualified Codes: J69.0 - Pneumonitis due to inhalation of food and vomit (5) Toxic metabolic encephalopathy ICD Codes: G92 - Toxic encephalopathy SNOMED: 335251385 (6) JUJU (acute kidney injury) ICD Codes: N17.9 - Acute kidney failure, unspecified SNOMED: 70424895 (7) Hyponatremia ICD Codes: E87.1 - Hyponatremia SNOMED: 77280649 (8) Hyperkalemia ICD Codes: E87.5 - Hyperkalemia SNOMED: 99597912 (9) Seizure disorder ICD Codes: G40.909 - Epilepsy, unspecified, not intractable, without status epilepticus SNOMED: 817632030 (10) DVT/PE (11) Dementia ICD Codes: F03.90 - Dementia SNOMED: 98369002 (12) S/P percutaneous endoscopic gastrostomy (PEG) tube placement ICD Codes: Z93.1 - Gastrostomy status SNOMED: 453868541 (13) Hypercalcemia ICD Codes: E83.52 - Hypercalcemia SNOMED: 43359157 (14) Hypophosphatemia ICD Codes: E83.39 - Other disorders of phosphorus metabolism SNOMED: 5438586 (15) Hypomagnesemia ICD Codes: E83.42 - Hypomagnesemia SNOMED: 534393014 (16) Hypokalemia ICD Codes: E87.6 - Hypokalemia SNOMED: 88899069 (17) Status post tracheostomy ICD Codes: Z93.0 - Tracheostomy status SNOMED: 60406606, 244578895 (18) S/P percutaneous endoscopic gastrostomy (PEG) tube placement ICD Codes: Z93.1 - Gastrostomy status SNOMED: 859882781 Assessment/Plan Pulm consulted s/p tracheostomy on 05/21/17 Cont to wean as tolerated Daily SBTs Now off pressors Cardiology consulted given SVT Digoxin and Diltiazem added ID consulted Cont broad-spectrum abx: vanco, zosyn; cipro added for double pseudomonas coverage s/p flagyl (C. diff neg) F/u cultures Trend CBC Trend ABG Monitor CXR Renal consulted s/p IVFs Replete lytes Trend BMP Cont tube feeds via PEG Cont home meds including Depakote Eliquis on hold Pain control, supportive care, bowel regimen DC planning likely to subacute SNF vs LTAC DVT ppx: SCDs, HSQ GI ppx: PPI Dispo: pending placement to sub-acute SNF for continued weaning FULL CODE per discussion w/ daughter Plan outlined above discussed with patient/family, RN, SW/CM, pulm, cardiology, ID regarding mgmt and dispo D/w CM re d/c planning to subacute vs LTAC D/w pulm re weaning D/w ID re abx D/w surgery re tracheostomy Time of note may not reflect time of encounter Subjective Date patient seen: May 24, 2017 Time patient seen: 12:32 Allergies: Coded Allergies: NO KNOWN DRUG ALLERGIES (Unverified Allergy, Unknown, 07/29/14) Subjective No acute o/n events s/p tracheostomy POD#2 Doing well on SIMV More awake, alert, following commands Denies pain, SOB ROS limited as pt w/ dementia Objective Last 24 Hour Vital Signs Date Time Temp Pulse Resp B/P (MAP) Pulse Ox O2 Delivery O2 Flow Rate FiO2 05/24/17 12:14 74 135/67 05/24/17 12:00 35 05/24/17 12:00 98.8 74 22 135/67 97 Mechanical Ventilator 35 05/24/17 11:03 76 24 35 05/24/17 09:11 100 05/24/17 09:06 69 18 35 05/24/17 08:59 67 18 35 05/24/17 08:42 75 05/24/17 08:00 98.7 75 18 137/56 97 Mechanical Ventilator 35 05/24/17 08:00 35 05/24/17 08:00 70 05/24/17 06:52 69 21 35 05/24/17 05:57 78 129/51 05/24/17 04:46 78 21 35 05/24/17 04:00 35 05/24/17 04:00 76 05/24/17 04:00 98.6 72 20 146/64 99 Mechanical Ventilator 35 05/24/17 03:22 75 20 35 05/24/17 01:15 76 19 35 05/24/17 00:00 75 05/24/17 00:00 98.2 70 18 129/51 96 Mechanical Ventilator 35 05/24/17 00:00 35 05/23/17 23:33 70 129/65 05/23/17 23:02 70 25 35 05/23/17 21:02 67 18 35 05/23/17 20:00 98.6 75 20 129/65 96 Mechanical Ventilator 35 05/23/17 20:00 82 05/23/17 20:00 35 05/23/17 19:24 74 18 35 05/23/17 17:48 84 135/58 05/23/17 17:07 84 18 35 05/23/17 16:54 78 05/23/17 16:00 98.8 82 18 135/58 97 Mechanical Ventilator 35 05/23/17 16:00 35 05/23/17 14:30 74 21 35 05/23/17 12:40 76 21 35 05/23/17 12:37 78 140/64 Intake and Output 05/23/17 05/24/17 19:00 07:00 Intake Total 1123.000 ml 1145 ml Output Total 1250 ml 1300 ml Balance -127.000 ml -155 ml Intake Free Water 100 ml IV Total 463.000 ml 505 ml Tube Feeding 540 ml 540 ml Blood Product 0 ml Other 120 ml Output Urine Total 1250 ml 1300 ml # Bowel Movements 5 3 Laboratory Tests 05/24/17 04:00: White Blood Count 7.1, Red Blood Count 2.69L, Hemoglobin 8.1L, Hematocrit 25.1L , Mean Corpuscular Volume 93, Mean Corpuscular Hemoglobin 30.3, Mean Corpuscular Hemoglobin Concent 32.5, Red Cell Distribution Width 17.3H, Platelet Count 445, Mean Platelet Volume 4.7L, Neutrophils (%) (Auto) 36.4L, Lymphocytes (%) (Auto) 37.2, Monocytes (%) (Auto) 9.9, Eosinophils (%) (Auto) 15.1H, Basophils (%) (Auto) 1.4, Sodium Level 143, Potassium Level 3.5, Chloride Level 111H, Carbon Dioxide Level 25, Anion Gap 7, Blood Urea Nitrogen 4L, Creatinine 0.3L, Estimat Glomerular Filtration Rate , Glucose Level 105, Uric Acid 1.3L, Calcium Level 8.4L, Phosphorus Level 2.6, Magnesium Level 1.4L, Total Bilirubin 0.2, Aspartate Amino Transf (AST/SGOT) 10L, Alanine Aminotransferase (ALT/SGPT) 8L, Alkaline Phosphatase 53, Pro-B-Type Natriuretic Peptide 1095H, Total Protein 5.6L, Albumin 1.6L, Globulin 4.0, Albumin/Globulin Ratio 0.4L, Vitamin B12 Level 1869H, Folate 10.7 Height (Feet): 5 Height (Inches): 4.00 Weight (Pounds): 174 Objective General: awake, alert, follows simple commands Head: normocephalic, without obvious abnormality, atraumatic Neck: +trach c/d/i Eyes: conjunctivae/corneas clear. PERRL, EOM's intact Throat: lips, mucosa, and tongue normal. MMM Neck: supple, symmetrical, trachea midline, and no JVD. +Trach c/d/i Lungs: +rhonchi b/l Heart: regular rate and rhythm, S1, S2 normal, no murmur, click, rub or gallop Abdomen: soft, non-tender, non-distended, bowel sounds normal; +PEG c/d/i Extremities: extremities normal, atraumatic, no cyanosis, +BLE edema Pulses: 2+ and symmetric Skin: skin color, texture, turgor normal; no rashes or lesions Neurologic: moving all extremities Prachi Mejia M.D. May 24, 2017 12:32
--- NOTE | 2017-05-24 14:45 | Cardiac Electrophysiology PN ---
Assessment/Plan Assessment/Plan 1. Recurrent supraventricular tachycardias. Continue Cardizem and digoxin . 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 2. Respiratory failure, on the ventilator, likely due to underlying sepsis and pneumonia. S/P Tracheostomy. 3. Status post septic shock. 4. Toxic encephalopathy. 5. Acute renal failure that has resolved. 6. Seizure disorder. 7. Deep venous thrombosis and pulmonary embolism. 8. Dementia. 9. Status post PEG DW RN DC to [facility] in am. Subjective Subjective On vent via tracheostomy on CYNDEE. No arrhythmias reported. Objective Last 24 Hour Vital Signs Date Time Temp Pulse Resp B/P (MAP) Pulse Ox O2 Delivery O2 Flow Rate FiO2 05/24/17 12:45 76 24 35 05/24/17 12:14 74 135/67 05/24/17 12:00 73 05/24/17 12:00 35 05/24/17 12:00 98.8 74 22 135/67 97 Mechanical Ventilator 35 05/24/17 11:03 76 24 35 05/24/17 09:11 100 05/24/17 09:06 69 18 35 05/24/17 08:59 67 18 35 05/24/17 08:42 75 05/24/17 08:00 98.7 75 18 137/56 97 Mechanical Ventilator 35 05/24/17 08:00 35 05/24/17 08:00 70 05/24/17 06:52 69 21 35 05/24/17 05:57 78 129/51 05/24/17 04:46 78 21 35 05/24/17 04:00 35 05/24/17 04:00 76 05/24/17 04:00 98.6 72 20 146/64 99 Mechanical Ventilator 35 05/24/17 03:22 75 20 35 05/24/17 01:15 76 19 35 05/24/17 00:00 75 05/24/17 00:00 98.2 70 18 129/51 96 Mechanical Ventilator 35 05/24/17 00:00 35 05/23/17 23:33 70 129/65 05/23/17 23:02 70 25 35 05/23/17 21:02 67 18 35 05/23/17 20:00 98.6 75 20 129/65 96 Mechanical Ventilator 35 05/23/17 20:00 82 05/23/17 20:00 35 05/23/17 19:24 74 18 35 05/23/17 17:48 84 135/58 05/23/17 17:07 84 18 35 05/23/17 16:54 78 05/23/17 16:00 98.8 82 18 135/58 97 Mechanical Ventilator 35 05/23/17 16:00 35 Intake and Output 05/23/17 05/24/17 19:00 07:00 Intake Total 1123.000 ml 1145 ml Output Total 1250 ml 1300 ml Balance -127.000 ml -155 ml Intake Free Water 100 ml IV Total 463.000 ml 505 ml Tube Feeding 540 ml 540 ml Blood Product 0 ml Other 120 ml Output Urine Total 1250 ml 1300 ml # Bowel Movements 5 3 Laboratory Tests Test 05/24/17 04:00 White Blood Count 7.1 K/UL (4.8-10.8) Red Blood Count 2.69 M/UL (4.20-5.40) L Hemoglobin 8.1 G/DL (12.0-16.0) L Hematocrit 25.1 % (37.0-47.0) L Mean Corpuscular Volume 93 FL (80-99) Mean Corpuscular Hemoglobin 30.3 PG (27.0-31.0) Mean Corpuscular Hemoglobin Concent 32.5 G/DL (32.0-36.0) Red Cell Distribution Width 17.3 % (11.6-14.8) H Platelet Count 445 K/UL (150-450) Mean Platelet Volume 4.7 FL (6.5-10.1) L Neutrophils (%) (Auto) 36.4 % (45.0-75.0) L Lymphocytes (%) (Auto) 37.2 % (20.0-45.0) Monocytes (%) (Auto) 9.9 % (1.0-10.0) Eosinophils (%) (Auto) 15.1 % (0.0-3.0) H Basophils (%) (Auto) 1.4 % (0.0-2.0) Sodium Level 143 MMOL/L (136-145) Potassium Level 3.5 MMOL/L (3.5-5.1) Chloride Level 111 MMOL/L (98-107) H Carbon Dioxide Level 25 MMOL/L (21-32) Anion Gap 7 mmol/L (5-15) Blood Urea Nitrogen 4 mg/dL (7-18) L Creatinine 0.3 MG/DL (0.55-1.30) L Estimat Glomerular Filtration Rate mL/min (>60) Glucose Level 105 MG/DL (74-106) Uric Acid 1.3 MG/DL (2.6-7.2) L Calcium Level 8.4 MG/DL (8.5-10.1) L Phosphorus Level 2.6 MG/DL (2.5-4.9) Magnesium Level 1.4 MG/DL (1.8-2.4) L Total Bilirubin 0.2 MG/DL (0.2-1.0) Aspartate Amino Transf (AST/SGOT) 10 U/L (15-37) L Alanine Aminotransferase (ALT/SGPT) 8 U/L (12-78) L Alkaline Phosphatase 53 U/L (46-116) Pro-B-Type Natriuretic Peptide 1095 pg/mL (0-125) H Total Protein 5.6 G/DL (6.4-8.2) L Albumin 1.6 G/DL (3.4-5.0) L Globulin 4.0 g/dL Albumin/Globulin Ratio 0.4 (1.0-2.7) L Vitamin B12 Level 1869 PG/ML (193-986) H Folate 10.7 NG/ML (8.6-58.9) Objective HEAD AND NECK: Tracheostomy intact. no JVD. LUNGS: Coarse rhonchi. CARDIOVASCULAR: Regular S1 and S2 with no gallop. ABDOMEN: Soft and nontender.PEG in place EXTREMITIES: No pitting edema. MALLORY BROWN May 24, 2017 14:45
--- NOTE | 2017-05-24 14:49 | Nephrology Progress Note ---
Assessment/Plan Problem List: (1) Acute respiratory failure with hypoxia and hypercapnia Assessment: no trached (2) Septic shock (3) Renal insufficiency (4) Hypercalcemia Assessment Now trached acute renal failure resolving persistant low mag and K and Phos improved ? CKD underlying Acute respiratory failure, Trached septic shock sever Hypercalcemia, corrected HypoAlbuminemia Anemia Dementia Plan Plan: check Iron panel- IV venofer mag and phos supplement as needed monitor serum Ca 2D echo- Left ventricular ejection fraction estimated to be 65-70%. increase feeding Phos K and Mag supplement as needed hemodynamic support Aredia given 05/10 monitor renal parameters serum cortisol level 12 avoid nephrotoxics per orders Subjective ROS Limited/Unobtainable: Yes Objective Objective Last 24 Hour Vital Signs Date Time Temp Pulse Resp B/P (MAP) Pulse Ox O2 Delivery O2 Flow Rate FiO2 05/24/17 12:45 76 24 35 05/24/17 12:14 74 135/67 05/24/17 12:00 73 05/24/17 12:00 35 05/24/17 12:00 98.8 74 22 135/67 97 Mechanical Ventilator 35 05/24/17 11:03 76 24 35 05/24/17 09:11 100 05/24/17 09:06 69 18 35 05/24/17 08:59 67 18 35 05/24/17 08:42 75 05/24/17 08:00 98.7 75 18 137/56 97 Mechanical Ventilator 35 05/24/17 08:00 35 05/24/17 08:00 70 05/24/17 06:52 69 21 35 05/24/17 05:57 78 129/51 05/24/17 04:46 78 21 35 05/24/17 04:00 35 05/24/17 04:00 76 05/24/17 04:00 98.6 72 20 146/64 99 Mechanical Ventilator 35 05/24/17 03:22 75 20 35 05/24/17 01:15 76 19 35 05/24/17 00:00 75 05/24/17 00:00 98.2 70 18 129/51 96 Mechanical Ventilator 35 05/24/17 00:00 35 05/23/17 23:33 70 129/65 05/23/17 23:02 70 25 35 05/23/17 21:02 67 18 35 1/24/18 20:00 98.6 75 20 129/65 96 Mechanical Ventilator 35 05/23/17 20:00 82 05/23/17 20:00 35 05/23/17 19:24 74 18 35 05/23/17 17:48 84 135/58 05/23/17 17:07 84 18 35 05/23/17 16:54 78 05/23/17 16:00 98.8 82 18 135/58 97 Mechanical Ventilator 35 05/23/17 16:00 35 Intake and Output 05/23/17 05/24/17 19:00 07:00 Intake Total 1123.000 ml 1145 ml Output Total 1250 ml 1300 ml Balance -127.000 ml -155 ml Intake Free Water 100 ml IV Total 463.000 ml 505 ml Tube Feeding 540 ml 540 ml Blood Product 0 ml Other 120 ml Output Urine Total 1250 ml 1300 ml # Bowel Movements 5 3 Laboratory Tests 05/24/17 04:00: White Blood Count 7.1, Red Blood Count 2.69L, Hemoglobin 8.1L, Hematocrit 25.1L , Mean Corpuscular Volume 93, Mean Corpuscular Hemoglobin 30.3, Mean Corpuscular Hemoglobin Concent 32.5, Red Cell Distribution Width 17.3H, Platelet Count 445, Mean Platelet Volume 4.7L, Neutrophils (%) (Auto) 36.4L, Lymphocytes (%) (Auto) 37.2, Monocytes (%) (Auto) 9.9, Eosinophils (%) (Auto) 15.1H, Basophils (%) (Auto) 1.4, Sodium Level 143, Potassium Level 3.5, Chloride Level 111H, Carbon Dioxide Level 25, Anion Gap 7, Blood Urea Nitrogen 4L, Creatinine 0.3L, Estimat Glomerular Filtration Rate , Glucose Level 105, Uric Acid 1.3L, Calcium Level 8.4L, Phosphorus Level 2.6, Magnesium Level 1.4L, Total Bilirubin 0.2, Aspartate Amino Transf (AST/SGOT) 10L, Alanine Aminotransferase (ALT/SGPT) 8L, Alkaline Phosphatase 53, Pro-B-Type Natriuretic Peptide 1095H, Total Protein 5.6L, Albumin 1.6L, Globulin 4.0, Albumin/Globulin Ratio 0.4L, Vitamin B12 Level 1869H, Folate 10.7 Height (Feet): 5 Height (Inches): 4.00 Weight (Pounds): 174 General Appearance: no apparent distress EENT: other - trached Cardiovascular: normal rate Respiratory/Chest: decreased breath sounds Abdomen: soft Objective no other changes ALYSON FLANAGAN May 24, 2017 14:49
[2017-05-24 16:00] VITALS: BP 142/58
[2017-05-24] MEDS ORDERED: Potassium Phosphate 30 MM in NS 275 ML IV ONE (16:00)
--- NOTE | 2017-05-24 18:12 | Infectious Diseases Prog Note ---
Assessment/Plan Assessment/Plan ASSESSMENT AND PLAN: 1. - sepsis, shock, acinetobacter pna/pseudomonas pna, ? pseudomonas sacral wound infection, vent, ? c.diff., leukocytosis, fevers, ? fungal rash vs other - chest x-ray worse, leukocytosis resolved, c.diff. negative, fungal uti - s/p trach - meropenem, vancomycin and diflucan for 5 days to complete 10 day course abx - check sc, labs, chest x-ray - no pressors - chest x-ray stable - skin care per protocol 2. respiratory failure, on vent, icu care 3. Acute kidney injury, elevated creatinine. 4. Hypertension. 5. Diabetes. 6. Asthma. 7. Alzheimer's with some dementia. 8. Cerebrovascular accident. 9. Aspiration risk. 10. Anemia. 11. Seizures. 12. Memory loss. 13. Past medical history as noted. 14. No allergy. 15. Social history is negative. 16. Family history noncontributory. 17. Case discussed with RN. 18. MAR was noted. 19. Continue treatment per primary consultants. 20. Skin care protocol. 21. Possible fungal rash. Continue cream. 22. Questionable drug rash. 23. Continue supportive care. 24. Critical condition. 25. Notes were reviewed. Subjective Constitutional: Reports: other - + trach, Denies: fever HEENT: Reports: congestion Respiratory: Reports: shortness of breath Cardiovascular: Denies: chest pain Gastrointestinal/Abdominal: Denies: nausea, vomiting, diarrhea Genitourinary: Reports: other - = cota Neurologic: Denies: headache Psychiatric: Denies: depression Skin: Reports: other - + wounds Hematologic: Denies: bleeding Musculoskeletal: Reports: other - na Allergies: Coded Allergies: NO KNOWN DRUG ALLERGIES (Unverified Allergy, Unknown, 07/29/14) Objective Vital Signs Last 24 Hour Vital Signs Date Time Temp Pulse Resp B/P (MAP) Pulse Ox O2 Delivery O2 Flow Rate FiO2 05/24/17 17:43 78 143/59 05/24/17 17:09 80 19 35 05/24/17 16:00 98.7 79 23 142/58 98 Mechanical Ventilator 35 05/24/17 16:00 74 05/24/17 16:00 35 05/24/17 15:00 71 19 35 05/24/17 12:45 76 24 35 05/24/17 12:14 74 135/67 1/25/18 12:00 73 05/24/17 12:00 35 05/24/17 12:00 98.8 74 22 135/67 97 Mechanical Ventilator 35 05/24/17 11:03 76 24 35 05/24/17 09:11 100 05/24/17 09:06 69 18 35 05/24/17 08:59 67 18 35 05/24/17 08:42 75 05/24/17 08:00 98.7 75 18 137/56 97 Mechanical Ventilator 35 05/24/17 08:00 35 05/24/17 08:00 70 05/24/17 06:52 69 21 35 05/24/17 05:57 78 129/51 05/24/17 04:46 78 21 35 05/24/17 04:00 35 05/24/17 04:00 76 05/24/17 04:00 98.6 72 20 146/64 99 Mechanical Ventilator 35 05/24/17 03:22 75 20 35 05/24/17 01:15 76 19 35 05/24/17 00:00 75 05/24/17 00:00 98.2 70 18 129/51 96 Mechanical Ventilator 35 05/24/17 00:00 35 05/23/17 23:33 70 129/65 05/23/17 23:02 70 25 35 05/23/17 21:02 67 18 35 05/23/17 20:00 98.6 75 20 129/65 96 Mechanical Ventilator 35 05/23/17 20:00 82 05/23/17 20:00 35 05/23/17 19:24 74 18 35 Height (Feet): 5 Height (Inches): 4.00 Weight (Pounds): 174 General Appearance: no acute distress, other - on vent HEENT: normocephalic, atraumatic, anicteric, no JVD, status post trach Respiratory/Chest: crackles/rales, rhonchi - bilaterally Cardiovascular: normal rate, regular rhythm, no gallop/murmur, no JVD Abdomen: normal bowel sounds, soft, non tender, no organomegaly, non distended Genitourinary: other - + cota - urine slt cloudy Extremities: no cyanosis Skin: other - wounds reviewed Neurologic/Psychiatric: motor weakness, other - generalized weakness but responsive Lymphatic: no neck adenopathy Musculoskeletal: no effusion Objective 05/12 - chest x-ray - Findings: ET tube and left subclavian central line unchanged in position. Heart size and mediastinal contours are stable. Persistent interstitial opacification/ edema and patchy bilateral airspace opacities with small right pleural effusion. Interval development of a small left lateral pleural effusion and increased left base/retrocardiac opacities. No pneumothorax.. Gastrostomy tube partially visualized. Impression: Slight interval worsening of aeration with development of small left pleural effusion and increasing left basilar atelectasis/consolidation. Support lines and tubes unchanged 05/14 - chest x-ray: Impression: Interstitial and patchy bilateral airspace opacities with continued improved aeration of the right base compared to the prior exam. Support lines/tubes unchanged in position. 05/16 - chest x-ray - no change (report noted) 05/18 - chest x-ray - Impression: Interval worsening of aeration with increasing right midlung and left basilar opacities. 05/20 - chest x-ray - Impression: Little change since previous study. Bilateral airspace and interstitial disease remains. Bilateral pleural effusions. 05/22 - chest x-ray - Impression: Interim conversion of endotracheal tube to a tracheostomy. No radiographically evident complication Otherwise stable findings as described 05/24 - chest x-ray - Findings: Bilateral interstitial and airspace opacities persist, unchanged. Bilateral pleural effusions persist. Tubes and lines remain in stable positions Impression: Unchanged, over one day, findings as above. Microbiology Date/Time Source Procedure Growth Status 05/17/17 13:00 Blood Blood Culture - Final NO GROWTH AFTER 5 DAYS Complete 05/12/17 14:12 Sputum Gram Stain - Final Complete 05/12/17 14:12 Sputum Culture - Final Acinetobacter Baumanii Pseudomonas Aeruginosa Complete 05/15/17 18:00 Stool Clostridium difficile Toxin Assay - Final Complete 05/17/17 13:00 Indwelling Cath Urine Culture - Final Zaria Albicans Complete 05/10/17 10:00 Sacral Wound Gram Stain - Final Complete 05/10/17 10:00 Wound Culture - Final Pseudomonas Aeruginosa Zaria Albicans Usual Skin Beckie Complete Laboratory Tests Test 05/24/17 04:00 White Blood Count 7.1 K/UL (4.8-10.8) Red Blood Count 2.69 M/UL (4.20-5.40) L Hemoglobin 8.1 G/DL (12.0-16.0) L Hematocrit 25.1 % (37.0-47.0) L Mean Corpuscular Volume 93 FL (80-99) Mean Corpuscular Hemoglobin 30.3 PG (27.0-31.0) Mean Corpuscular Hemoglobin Concent 32.5 G/DL (32.0-36.0) Red Cell Distribution Width 17.3 % (11.6-14.8) H Platelet Count 445 K/UL (150-450) Mean Platelet Volume 4.7 FL (6.5-10.1) L Neutrophils (%) (Auto) 36.4 % (45.0-75.0) L Lymphocytes (%) (Auto) 37.2 % (20.0-45.0) Monocytes (%) (Auto) 9.9 % (1.0-10.0) Eosinophils (%) (Auto) 15.1 % (0.0-3.0) H Basophils (%) (Auto) 1.4 % (0.0-2.0) Sodium Level 143 MMOL/L (136-145) Potassium Level 3.5 MMOL/L (3.5-5.1) Chloride Level 111 MMOL/L (98-107) H Carbon Dioxide Level 25 MMOL/L (21-32) Anion Gap 7 mmol/L (5-15) Blood Urea Nitrogen 4 mg/dL (7-18) L Creatinine 0.3 MG/DL (0.55-1.30) L Estimat Glomerular Filtration Rate mL/min (>60) Glucose Level 105 MG/DL (74-106) Uric Acid 1.3 MG/DL (2.6-7.2) L Calcium Level 8.4 MG/DL (8.5-10.1) L Phosphorus Level 2.6 MG/DL (2.5-4.9) Magnesium Level 1.4 MG/DL (1.8-2.4) L Total Bilirubin 0.2 MG/DL (0.2-1.0) Aspartate Amino Transf (AST/SGOT) 10 U/L (15-37) L Alanine Aminotransferase (ALT/SGPT) 8 U/L (12-78) L Alkaline Phosphatase 53 U/L (46-116) Pro-B-Type Natriuretic Peptide 1095 pg/mL (0-125) H Total Protein 5.6 G/DL (6.4-8.2) L Albumin 1.6 G/DL (3.4-5.0) L Globulin 4.0 g/dL Albumin/Globulin Ratio 0.4 (1.0-2.7) L Vitamin B12 Level 1869 PG/ML (193-986) H Folate 10.7 NG/ML (8.6-58.9) Current Medications Medications (Trade) Dose Ordered Sig/Jacque Route PRN Reason Start Time Stop Time Status Last Admin Dose Admin Acetaminophen (Tylenol) 650 mg Q4H PRN GT Mild Pain/Temp > 100.5 05/22/17 20:00 06/16/17 11:59 Albuterol/ Ipratropium (Albuterol/ Ipratropium) 3 ml Q6H PRN HHN Shortness of Breath 05/22/17 20:00 05/24/17 19:59 Amikacin Protocol (Amikacin pharmacy to dose) 1 ea DAILYPRN PRN MISC Per rx protocol 05/22/17 20:00 06/21/17 19:59 Amikacin Sulfate 750 mg/Sodium Chloride 113 ml @ 220 mls/hr Q24H IV 05/23/17 08:00 05/28/17 07:59 05/24/17 08:00 Bisacodyl (Dulcolax) 10 mg DAILYPRN PRN RECTAL Constipation 2nd Line agent 05/22/17 20:00 06/21/17 19:59 Chlorhexidine Gluconate (Laly-Hex 2%) 1 applic DAILY@1999 TOPIC 05/22/17 20:00 06/12/17 19:59 05/23/17 19:56 Clotrimazole (Lotrimin) 1 applic EVERY 12 HOURS TOPIC 05/22/17 21:00 06/09/17 14:59 05/24/17 08:45 Collagenase (Santyl) 1 applic DAILY TOPIC 05/23/17 09:00 06/17/17 08:59 05/24/17 08:45 Collagenase (Santyl) 1 applic DAILYPRN PRN TOPIC soilage 05/22/17 20:00 06/21/17 19:59 05/23/17 20:00 Dextrose (Dextrose 50%) STAT PRN IV Hypoglycemia 05/22/17 20:00 06/21/17 19:59 Digoxin (Lanoxin) 0.25 mg DAILY ORAL 05/23/17 09:00 06/17/17 08:59 05/24/17 08:42 Diltiazem HCl (Cardizem) 30 mg EVERY 6 HOURS ORAL 05/23/17 00:00 06/16/17 17:59 05/24/17 17:43 Docusate Sodium (Colace) 100 mg EVERY 12 HOURS ORAL 05/22/17 21:00 06/10/17 09:59 05/22/17 21:09 Fluconazole (Diflucan) 100 mg DAILY@2000 GT 05/22/17 20:00 05/27/17 23:59 05/23/17 19:55 Heparin Sodium (Porcine) (Heparin 5000 units/ml) 5,000 units EVERY 12 HOURS SUBQ 05/22/17 21:00 06/09/17 08:59 05/24/17 08:43 Iron Sucrose 100 mg/Sodium Chloride 55 ml @ 200 mls/hr BEDTIME IV 05/23/17 21:00 06/01/17 21:17 05/23/17 19:57 Meropenem 1 gm/ Sodium Chloride 100 ml @ 200 mls/hr Q8HR@0630,1430,2230 IVPB 05/22/17 22:30 05/28/17 22:29 05/24/17 15:24 Ondansetron HCl (Zofran) 4 mg Q6H PRN IVP Nausea & Vomiting 05/22/17 19:45 06/09/17 01:44 Phosphorus (Phospha 250 Neutral) 500 mg THREE TIMES A DAY NG 05/23/17 09:00 06/15/17 12:59 05/24/17 17:43 Polyethylene Glycol (Miralax) 17 gm DAILYPRN PRN GT Constipation 05/22/17 20:00 06/21/17 19:59 Potassium Phosphate 30 mm/ Sodium Chloride 285 ml @ 47.5 mls/hr ONCE ONCE IV 05/24/17 16:00 05/24/17 21:59 05/24/17 16:00 Vancomycin HCl (Vanco rx to dose) 1 ea DAILYPRN PRN MISC Per rx protocol 05/23/17 09:00 06/22/17 08:59 Vancomycin/Sodium Chloride 250 ml @ 166.667 mls/hr Q12HR IVPB 05/22/17 21:00 05/25/17 23:59 05/24/17 09:01 TIERA PRADO May 24, 2017 18:12
[2017-05-24 20:00] VITALS: BP 136/60
[2017-05-24] MEDS: Dyna-Hex 2% Top Sol 2oz TOPIC SCH (20:39)
[2017-05-24] MEDS: Fluconazole 100mg tab GT SCH (20:40)
[2017-05-24] MEDS ORDERED: VANCOMYCIN1 GM/2502 IVPB (22:50)
[2017-05-24] MEDS ORDERED: DIFLUCAN100 MG GT (22:50)
[2017-05-24] MEDS ORDERED: MEROPENEM1 GM IV (22:50)
--- NOTE | 2017-05-24 22:51 | Discharge Summary ---
Discharge Summary Hospital Course Date of Admission May 09, 2017 at 22:52 Date of Discharge Admitting Diagnosis ALTERED MENTAL STATUS HPI Erica Gee is a 86 year old female who was admitted on May 09, 2017 at 22:52 for Altered Mental Status Discharge Discharge Disposition Patient was discharged to Discharge Diagnoses: Prachi Mejia M.D. May 24, 2017 22:51
--- NOTE | 2017-05-24 22:53 | General Progress Note ---
Assessment/Plan Problem List: (1) SVT (supraventricular tachycardia) ICD Codes: I47.1 - SVT (supraventricular tachycardia) SNOMED: 7130014 (2) Septic shock ICD Codes: A41.9 - Sepsis, unspecified organism; R65.21 - Severe sepsis with septic shock SNOMED: 98999166 (3) Acute respiratory failure with hypoxia and hypercapnia ICD Codes: J96.01 - Acute respiratory failure with hypoxia; J96.02 - Acute respiratory failure with hypercapnia SNOMED: 91734998, 57734522, 428030951 (4) Aspiration pneumonia ICD Codes: J69.0 - Pneumonitis due to inhalation of food and vomit SNOMED: 191334695 Qualifiers: Qualified Codes: J69.0 - Pneumonitis due to inhalation of food and vomit (5) Toxic metabolic encephalopathy ICD Codes: G92 - Toxic encephalopathy SNOMED: 443007680 (6) JUJU (acute kidney injury) ICD Codes: N17.9 - Acute kidney failure, unspecified SNOMED: 42537218 (7) Hyponatremia ICD Codes: E87.1 - Hyponatremia SNOMED: 76174401 (8) Hyperkalemia ICD Codes: E87.5 - Hyperkalemia SNOMED: 34520134 (9) Seizure disorder ICD Codes: G40.909 - Epilepsy, unspecified, not intractable, without status epilepticus SNOMED: 562284208 (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 (11) Dementia ICD Codes: F03.90 - Dementia SNOMED: 56058521 (12) S/P percutaneous endoscopic gastrostomy (PEG) tube placement ICD Codes: Z93.1 - Gastrostomy status SNOMED: 036479099 (13) Hypercalcemia ICD Codes: E83.52 - Hypercalcemia SNOMED: 08099111 (14) Hypophosphatemia ICD Codes: E83.39 - Other disorders of phosphorus metabolism SNOMED: 8390234 (15) Hypomagnesemia ICD Codes: E83.42 - Hypomagnesemia SNOMED: 403549134 (16) Hypokalemia ICD Codes: E87.6 - Hypokalemia SNOMED: 07533669 (17) Status post tracheostomy ICD Codes: Z93.0 - Tracheostomy status SNOMED: 91822603, 576975633 (18) S/P percutaneous endoscopic gastrostomy (PEG) tube placement ICD Codes: Z93.1 - Gastrostomy status SNOMED: 919988546 Status: stable Assessment/Plan Pulm consulted s/p tracheostomy on 05/21/17 Cont to wean as tolerated Daily SBTs Now off pressors Cardiology consulted given SVT Digoxin and Diltiazem added ID consulted Cont broad-spectrum abx: vanco, meropenem + flagyl s/p flagyl (C. diff neg) F/u cultures Trend CBC Trend ABG Monitor CXR Renal consulted s/p IVFs Replete lytes Trend BMP Cont tube feeds via PEG Cont home meds including Depakote Eliquis on hold Pain control, supportive care, bowel regimen DC planning likely to subacute SNF tomorrow DVT ppx: SCDs, HSQ GI ppx: PPI Dispo: pending placement to sub-acute SNF for continued weaning FULL CODE per discussion w/ daughter Plan outlined above discussed with patient/family, RN, SW/CM, pulm, cardiology, ID regarding mgmt and dispo D/w CM re d/c planning to subacute vs LTAC D/w pulm re weaning D/w ID re abx D/w daughter re dispo to SNF Time of note may not reflect time of encounter Subjective Date patient seen: May 24, 2017 Time patient seen: 22:52 ROS Limited/Unobtainable: Yes Allergies: Coded Allergies: NO KNOWN DRUG ALLERGIES (Unverified Allergy, Unknown, 07/29/14) Subjective No acute o/n events s/p tracheostomy POD#3 Doing well on SIMV More awake, alert, following commands Denies pain, SOB ROS limited as pt w/ dementia Objective Last 24 Hour Vital Signs Date Time Temp Pulse Resp B/P (MAP) Pulse Ox O2 Delivery O2 Flow Rate FiO2 05/24/17 21:40 98.7 05/24/17 21:10 74 19 35 05/24/17 20:00 35 05/24/17 18:54 75 19 35 05/24/17 17:43 78 143/59 05/24/17 17:09 80 19 35 05/24/17 16:00 98.7 79 23 142/58 98 Mechanical Ventilator 35 05/24/17 16:00 74 05/24/17 16:00 35 05/24/17 15:00 71 19 35 05/24/17 12:45 76 24 35 05/24/17 12:14 74 135/67 05/24/17 12:00 73 05/24/17 12:00 35 05/24/17 12:00 98.8 74 22 135/67 97 Mechanical Ventilator 35 05/24/17 11:03 76 24 35 05/24/17 09:11 100 05/24/17 09:06 69 18 35 05/24/17 08:59 67 18 35 05/24/17 08:42 75 05/24/17 08:00 98.7 75 18 137/56 97 Mechanical Ventilator 35 05/24/17 08:00 35 05/24/17 08:00 70 05/24/17 06:52 69 21 35 05/24/17 05:57 78 129/51 05/24/17 04:46 78 21 35 05/24/17 04:00 35 05/24/17 04:00 76 05/24/17 04:00 98.6 72 20 146/64 99 Mechanical Ventilator 35 05/24/17 03:22 75 20 35 05/24/17 01:15 76 19 35 05/24/17 00:00 75 05/24/17 00:00 98.2 70 18 129/51 96 Mechanical Ventilator 35 05/24/17 00:00 35 05/23/17 23:33 70 129/65 05/23/17 23:02 70 25 35 Intake and Output 05/23/17 05/24/17 19:00 07:00 Intake Total 1123.000 ml 1145 ml Output Total 1250 ml 1300 ml Balance -127.000 ml -155 ml Intake Free Water 100 ml IV Total 463.000 ml 505 ml Tube Feeding 540 ml 540 ml Blood Product 0 ml Other 120 ml Output Urine Total 1250 ml 1300 ml # Bowel Movements 5 3 Laboratory Tests 05/24/17 04:00: White Blood Count 7.1, Red Blood Count 2.69L, Hemoglobin 8.1L, Hematocrit 25.1L , Mean Corpuscular Volume 93, Mean Corpuscular Hemoglobin 30.3, Mean Corpuscular Hemoglobin Concent 32.5, Red Cell Distribution Width 17.3H, Platelet Count 445, Mean Platelet Volume 4.7L, Neutrophils (%) (Auto) 36.4L, Lymphocytes (%) (Auto) 37.2, Monocytes (%) (Auto) 9.9, Eosinophils (%) (Auto) 15.1H, Basophils (%) (Auto) 1.4, Sodium Level 143, Potassium Level 3.5, Chloride Level 111H, Carbon Dioxide Level 25, Anion Gap 7, Blood Urea Nitrogen 4L, Creatinine 0.3L, Estimat Glomerular Filtration Rate , Glucose Level 105, Uric Acid 1.3L, Calcium Level 8.4L, Phosphorus Level 2.6, Magnesium Level 1.4L, Total Bilirubin 0.2, Aspartate Amino Transf (AST/SGOT) 10L, Alanine Aminotransferase (ALT/SGPT) 8L, Alkaline Phosphatase 53, Pro-B-Type Natriuretic Peptide 1095H, Total Protein 5.6L, Albumin 1.6L, Globulin 4.0, Albumin/Globulin Ratio 0.4L, Vitamin B12 Level 1869H, Folate 10.7 Height (Feet): 5 Height (Inches): 4.00 Weight (Pounds): 174 Objective General: awake, alert, follows simple commands Head: normocephalic, without obvious abnormality, atraumatic Neck: +trach c/d/i Eyes: conjunctivae/corneas clear. PERRL, EOM's intact Throat: lips, mucosa, and tongue normal. MMM Neck: supple, symmetrical, trachea midline, and no JVD. +Trach c/d/i Lungs: +rhonchi b/l Heart: regular rate and rhythm, S1, S2 normal, no murmur, click, rub or gallop Abdomen: soft, non-tender, non-distended, bowel sounds normal; +PEG c/d/i Extremities: extremities normal, atraumatic, no cyanosis, +BLE edema Pulses: 2+ and symmetric Skin: skin color, texture, turgor normal; no rashes or lesions Neurologic: moving all extremities Prachi Mejia M.D. May 24, 2017 22:53
[2017-05-25] VITALS: BP 138/61
[2017-05-25] MEDS: dilTIAZem HCl 30mg tab ORAL SCH ×5 (00:55→23:29)
[2017-05-25] MEDS: HYDROcodone/Acetamin 10/325 tab GT PRN ×2 (03:51→20:33)
[2017-05-25 04:00] VITALS: BP 122/77
[2017-05-25 08:00] VITALS: BP 138/68
[2017-05-25] MEDS: Vancomycin 750mg/NS 250ml 250 ML IVPB SCH ×2 (08:43→21:41)
[2017-05-25] MEDS: Phospha 250 Neutral tab NG SCH ×3 (08:44→18:04)
[2017-05-25] MEDS: Docusate 100mg/10ml Liq ORAL SCH ×2 (08:45→20:37)
[2017-05-25] MEDS: Heparin 5000 units/ml inj SUBQ SCH ×2 (08:46→20:35)
--- NOTE | 2017-05-25 11:02 | Pulmonology Progress Note ---
Assessment/Plan Problems: (1) Acute respiratory failure with hypoxia and hypercapnia (2) Status post tracheostomy (3) Dementia (4) SVT (supraventricular tachycardia) (5) Sepsis Respiratory: monitor respiratory rate, CXR Cardiac: continue to monitor HR/BP Renal: check electrolytes Infectious Disease: check cultures, continue antibiotics Endocrine: check HgA1C Hematologic: monitor H/H Neurologic: PRN Ativan, PRN Morphine, keep patient comfortable Affect: PRN ativan Prophylaxis: Heparin Notes Reviewed: cardio, renal Discussed with: nurses, consultants, community case manager Subjective HEENT: Repors: no symptoms Respiratory: Reports: no symptoms Allergies: Coded Allergies: NO KNOWN DRUG ALLERGIES (Unverified Allergy, Unknown, 07/29/14) Objective Last 24 Hour Vital Signs Date Time Temp Pulse Resp B/P (MAP) Pulse Ox O2 Delivery O2 Flow Rate FiO2 05/25/17 10:35 79 18 35 05/25/17 08:48 82 18 35 05/25/17 08:45 69 05/25/17 08:00 35 05/25/17 08:00 98.2 68 22 138/68 97 Mechanical Ventilator 35 05/25/17 08:00 70 05/25/17 06:36 76 21 35 05/25/17 05:58 78 122/77 05/25/17 05:09 78 18 35 05/25/17 04:50 98.9 05/25/17 04:00 67 05/25/17 04:00 35 05/25/17 04:00 98.1 65 20 122/77 97 Mechanical Ventilator 35 05/25/17 03:30 81 18 35 05/25/17 01:15 76 18 35 05/25/17 00:55 69 138/61 05/25/17 00:00 98.9 69 18 138/61 98 Mechanical Ventilator 35 05/24/17 23:44 75 05/24/17 23:19 91 27 35 05/24/17 21:10 74 19 35 05/24/17 20:00 35 05/24/17 20:00 98.7 80 25 136/60 97 Mechanical Ventilator 35 05/24/17 19:15 75 05/24/17 18:54 75 19 35 05/24/17 17:43 78 143/59 05/24/17 17:09 80 19 35 05/24/17 16:00 98.7 79 23 142/58 98 Mechanical Ventilator 35 05/24/17 16:00 74 05/24/17 16:00 35 05/24/17 15:00 71 19 35 05/24/17 12:45 76 24 35 05/24/17 12:14 74 135/67 05/24/17 12:00 73 05/24/17 12:00 35 05/24/17 12:00 98.8 74 22 135/67 97 Mechanical Ventilator 35 05/24/17 11:03 76 24 35 Intake and Output 05/24/17 05/25/17 19:00 07:00 Intake Total 1745.500 ml 1188.334 ml Output Total 1500 ml 1000 ml Balance 245.500 ml 188.334 ml Intake Free Water 100 ml IV Total 1005.500 ml 588.334 ml Tube Feeding 540 ml 450 ml Other 200 ml 50 ml Output Urine Total 1500 ml 1000 ml # Bowel Movements 2 1 Respiratory/Chest: chest wall non-tender, lungs clear Breasts: no masses Cardiovascular: normal peripheral pulses Skin: no lesions Current Medications Medications (Trade) Dose Ordered Sig/Jacque Route PRN Reason Start Time Stop Time Status Last Admin Dose Admin Acetaminophen (Tylenol) 650 mg Q4H PRN GT Mild Pain/Temp > 100.5 05/22/17 20:00 06/16/17 11:59 Acetaminophen/ Hydrocodone Bitart ([place] 10/325) 1 tab Q4H PRN GT Severe Pain (Pain Scale 7-10) 05/24/17 20:15 05/31/17 20:14 05/25/17 03:51 Bisacodyl (Dulcolax) 10 mg DAILYPRN PRN RECTAL Constipation 2nd Line agent 05/22/17 20:00 06/21/17 19:59 Chlorhexidine Gluconate (Laly-Hex 2%) 1 applic DAILY@1999 TOPIC 05/22/17 20:00 06/12/17 19:59 05/24/17 20:39 Clotrimazole (Lotrimin) 1 applic EVERY 12 HOURS TOPIC 05/22/17 21:00 06/09/17 14:59 05/25/17 08:47 Collagenase (Santyl) 1 applic DAILY TOPIC 05/23/17 09:00 06/17/17 08:59 05/25/17 08:48 Collagenase (Santyl) 1 applic DAILYPRN PRN TOPIC soilage 05/22/17 20:00 06/21/17 19:59 05/23/17 20:00 Dextrose (Dextrose 50%) STAT PRN IV Hypoglycemia 05/22/17 20:00 06/21/17 19:59 Digoxin (Lanoxin) 0.25 mg DAILY ORAL 05/23/17 09:00 06/17/17 08:59 05/25/17 08:45 Diltiazem HCl (Cardizem) 30 mg EVERY 6 HOURS ORAL 05/23/17 00:00 06/16/17 17:59 05/25/17 05:58 Docusate Sodium (Colace) 100 mg EVERY 12 HOURS ORAL 05/22/17 21:00 06/10/17 09:59 05/22/17 21:09 Fluconazole (Diflucan) 100 mg DAILY@2000 GT 05/22/17 20:00 05/27/17 23:59 05/24/17 20:40 Heparin Sodium (Porcine) (Heparin 5000 units/ml) 5,000 units EVERY 12 HOURS SUBQ 05/22/17 21:00 06/09/17 08:59 05/25/17 08:46 Iron Sucrose 100 mg/Sodium Chloride 55 ml @ 200 mls/hr BEDTIME IV 05/23/17 21:00 06/01/17 21:17 05/24/17 20:52 Meropenem 1 gm/ Sodium Chloride 100 ml @ 200 mls/hr Q8HR@0630,1430,2230 IVPB 05/22/17 22:30 05/28/17 22:29 05/25/17 05:59 Ondansetron HCl (Zofran) 4 mg Q6H PRN IVP Nausea & Vomiting 05/22/17 19:45 06/09/17 01:44 Phosphorus (Phospha 250 Neutral) 500 mg THREE TIMES A DAY NG 05/23/17 09:00 06/15/17 12:59 05/25/17 08:44 Polyethylene Glycol (Miralax) 17 gm DAILYPRN PRN GT Constipation 05/22/17 20:00 06/21/17 19:59 Vancomycin HCl (Vanco rx to dose) 1 ea DAILYPRN PRN MISC Per rx protocol 05/24/17 18:15 06/23/17 18:14 Vancomycin/Sodium Chloride 250 ml @ 166.667 mls/hr Q12HR IVPB 05/24/17 21:00 05/27/17 20:59 05/25/17 08:43 DWAYNE CHERY May 25, 2017 11:02
--- NOTE | 2017-05-25 11:26 | Nephrology Progress Note ---
Assessment/Plan Problem List: (1) Acute respiratory failure with hypoxia and hypercapnia Assessment: no trached (2) Septic shock (3) Renal insufficiency (4) Hypercalcemia Assessment Now trached acute renal failure resolving persistant low mag and K and Phos improved ? CKD underlying Acute respiratory failure, Trached septic shock sever Hypercalcemia, corrected HypoAlbuminemia Anemia Dementia Plan Plan: check Iron panel- IV venofer mag and phos supplement as needed monitor serum Ca 2D echo- Left ventricular ejection fraction estimated to be 65-70%. increase feeding Phos K and Mag supplement as needed hemodynamic support Aredia given 05/10 monitor renal parameters serum cortisol level 12 avoid nephrotoxics per orders Subjective ROS Limited/Unobtainable: No Objective Objective Last 24 Hour Vital Signs Date Time Temp Pulse Resp B/P (MAP) Pulse Ox O2 Delivery O2 Flow Rate FiO2 05/25/17 10:35 79 18 35 05/25/17 08:48 82 18 35 05/25/17 08:45 69 05/25/17 08:00 35 05/25/17 08:00 98.2 68 22 138/68 97 Mechanical Ventilator 35 05/25/17 08:00 70 05/25/17 06:36 76 21 35 05/25/17 05:58 78 122/77 05/25/17 05:09 78 18 35 05/25/17 04:50 98.9 05/25/17 04:00 67 05/25/17 04:00 35 05/25/17 04:00 98.1 65 20 122/77 97 Mechanical Ventilator 35 05/25/17 03:30 81 18 35 05/25/17 01:15 76 18 35 05/25/17 00:55 69 138/61 05/25/17 00:00 98.9 69 18 138/61 98 Mechanical Ventilator 35 05/24/17 23:44 75 05/24/17 23:19 91 27 35 05/24/17 21:10 74 19 35 05/24/17 20:00 35 05/24/17 20:00 98.7 80 25 136/60 97 Mechanical Ventilator 35 05/24/17 19:15 75 05/24/17 18:54 75 19 35 05/24/17 17:43 78 143/59 05/24/17 17:09 80 19 35 05/24/17 16:00 98.7 79 23 142/58 98 Mechanical Ventilator 35 05/24/17 16:00 74 05/24/17 16:00 35 05/24/17 15:00 71 19 35 05/24/17 12:45 76 24 35 05/24/17 12:14 74 135/67 05/24/17 12:00 73 05/24/17 12:00 35 05/24/17 12:00 98.8 74 22 135/67 97 Mechanical Ventilator 35 Intake and Output 05/24/17 05/25/17 19:00 07:00 Intake Total 1745.500 ml 1188.334 ml Output Total 1500 ml 1000 ml Balance 245.500 ml 188.334 ml Intake Free Water 100 ml IV Total 1005.500 ml 588.334 ml Tube Feeding 540 ml 450 ml Other 200 ml 50 ml Output Urine Total 1500 ml 1000 ml # Bowel Movements 2 1 Height (Feet): 5 Height (Inches): 4.00 Weight (Pounds): 182 General Appearance: no apparent distress Cardiovascular: regular rhythm Respiratory/Chest: decreased breath sounds Abdomen: soft Objective no other changes ALYSON FLANAGAN May 25, 2017 11:26
[2017-05-25 12:00] VITALS: BP 153/54
--- NOTE | 2017-05-25 14:31 | Cardiac Electrophysiology PN ---
Assessment/Plan Assessment/Plan 1. 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 Continue Cardizem and digoxin . 2. Respiratory failure, on the ventilator, S/P Tracheostomy. 3. Status post septic shock. 4. Toxic encephalopathy. 5. Acute renal failure that has resolved. 6. Seizure disorder. 7. Deep venous thrombosis and pulmonary embolism. 8. Dementia. 9. Status post PEG DW RN Subjective Subjective On vent via tracheostomy on CYNDEE. Awaiting placement. Failed weaning again. Objective Last 24 Hour Vital Signs Date Time Temp Pulse Resp B/P (MAP) Pulse Ox O2 Delivery O2 Flow Rate FiO2 05/25/17 12:28 63 153/54 05/25/17 12:00 98.4 63 18 153/54 96 Mechanical Ventilator 35 05/25/17 12:00 66 05/25/17 10:35 79 18 35 05/25/17 08:48 82 18 35 05/25/17 08:45 69 05/25/17 08:00 35 05/25/17 08:00 98.2 68 22 138/68 97 Mechanical Ventilator 35 05/25/17 08:00 70 05/25/17 06:36 76 21 35 05/25/17 05:58 78 122/77 05/25/17 05:09 78 18 35 05/25/17 04:50 98.9 05/25/17 04:00 67 05/25/17 04:00 35 05/25/17 04:00 98.1 65 20 122/77 97 Mechanical Ventilator 35 05/25/17 03:30 81 18 35 05/25/17 01:15 76 18 35 05/25/17 00:55 69 138/61 05/25/17 00:00 98.9 69 18 138/61 98 Mechanical Ventilator 35 05/24/17 23:44 75 05/24/17 23:19 91 27 35 05/24/17 21:10 74 19 35 05/24/17 20:00 35 05/24/17 20:00 98.7 80 25 136/60 97 Mechanical Ventilator 35 05/24/17 19:15 75 05/24/17 18:54 75 19 35 05/24/17 17:43 78 143/59 05/24/17 17:09 80 19 35 05/24/17 16:00 98.7 79 23 142/58 98 Mechanical Ventilator 35 05/24/17 16:00 74 05/24/17 16:00 35 05/24/17 15:00 71 19 35 Intake and Output 05/24/17 05/25/17 19:00 07:00 Intake Total 1745.500 ml 1188.334 ml Output Total 1500 ml 1000 ml Balance 245.500 ml 188.334 ml Intake Free Water 100 ml IV Total 1005.500 ml 588.334 ml Tube Feeding 540 ml 450 ml Other 200 ml 50 ml Output Urine Total 1500 ml 1000 ml # Bowel Movements 2 1 Objective HEAD AND NECK: Tracheostomy intact. no JVD. LUNGS: Coarse rhonchi. CARDIOVASCULAR: Regular S1 and S2 with no gallop. ABDOMEN: Soft and nontender.PEG in place EXTREMITIES: No pitting edema. MALLORY BROWN May 25, 2017 14:30
[2017-05-25 16:00] VITALS: BP 141/54
--- NOTE | 2017-05-25 16:23 | General Progress Note ---
Assessment/Plan Problem List: (1) SVT (supraventricular tachycardia) ICD Codes: I47.1 - SVT (supraventricular tachycardia) SNOMED: 0239787 (2) Septic shock ICD Codes: A41.9 - Sepsis, unspecified organism; R65.21 - Severe sepsis with septic shock SNOMED: 22076742 (3) Acute respiratory failure with hypoxia and hypercapnia ICD Codes: J96.01 - Acute respiratory failure with hypoxia; J96.02 - Acute respiratory failure with hypercapnia SNOMED: 64935704, 40877401, 061235770 (4) Aspiration pneumonia ICD Codes: J69.0 - Pneumonitis due to inhalation of food and vomit SNOMED: 916117859 Qualifiers: Qualified Codes: J69.0 - Pneumonitis due to inhalation of food and vomit (5) Toxic metabolic encephalopathy ICD Codes: G92 - Toxic encephalopathy SNOMED: 221647515 (6) JUJU (acute kidney injury) ICD Codes: N17.9 - Acute kidney failure, unspecified SNOMED: 37446397 (7) Hyponatremia ICD Codes: E87.1 - Hyponatremia SNOMED: 54862788 (8) Hyperkalemia ICD Codes: E87.5 - Hyperkalemia SNOMED: 21306130 (9) Seizure disorder ICD Codes: G40.909 - Epilepsy, unspecified, not intractable, without status epilepticus SNOMED: 895700816 (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 (11) Dementia ICD Codes: F03.90 - Dementia SNOMED: 38180846 (12) S/P percutaneous endoscopic gastrostomy (PEG) tube placement ICD Codes: Z93.1 - Gastrostomy status SNOMED: 503308603 (13) Hypercalcemia ICD Codes: E83.52 - Hypercalcemia SNOMED: 60546596 (14) Hypophosphatemia ICD Codes: E83.39 - Other disorders of phosphorus metabolism SNOMED: 2169541 (15) Hypomagnesemia ICD Codes: E83.42 - Hypomagnesemia SNOMED: 793591076 (16) Hypokalemia ICD Codes: E87.6 - Hypokalemia SNOMED: 18748439 (17) Status post tracheostomy ICD Codes: Z93.0 - Tracheostomy status SNOMED: 39354608, 306160403 (18) S/P percutaneous endoscopic gastrostomy (PEG) tube placement ICD Codes: Z93.1 - Gastrostomy status SNOMED: 819813738 (19) Multiple pressure ulcers Assessment & Plan: #1 Right big toe dry scab #2 Right 1st anterior toe DTI pressure ulcer. Skin still intact #3 Left 2nd anterior toe DTI pressure ulcer. Skin still intact #4 Left 3rd anterior toe DTI pressure ulcer. Skin still intact #5 Left 4th anterior toe DTI pressure ulcer. Skin still intact #6 Left 5th anterior toe DTI pressure ulcer. Skin still intact #7 Sacrococcygeal extending to left buttock unstageable pressure ulcer. Revealed as stage III with good granulating tissue. Good progress noted. will cont same treatment order. #8 Left lateral malleolus DTI pressure ulcer. Revealed as unstageable pressure ulcer. got significantly smaller in size. will change treatment to Santyl ointment and cont f/u with this pt #9 Left upper buttock area unstageable pressure ulcer. Revealed as stage II pressure ulcer. Good progress noted. Will cont with Triad cream application. #10 Left lower back unstageable pressure ulcer. Revealing as stage III as this time. will f/u with prognosis of the stage #11 Right buttock scattered stage II pressure ulcer.Good progress noted. Resolving at this time #12 IAD on perineal area extending up to mid back, left and right lower posterior thigh. Good progress noted. Resolving at this time #13 Left elbow unstageable pressure ulcer with black eschar adhered to wound bed. Good progress noted. will cont with same treatment #14 Right elbow DTI pressure ulcer. skin still intact #15 Left ischial tuberosity stage II pressure ulcer. Good progress noted. will cont same wound care order #16 Right ischial tuberosity stage II pressure ulcer.Good progress noted. will cont same wound care order #17 Right posterior knee necrotic open wound. Etiology unknown. Good progress noted. Dr Dykes saw pt and recommended to cont with Santyl ointment #18 Right heel DTI pressure ulcer. Skin still intact #19 Left heel DTI pressure ulcer. Skin still intact #20 Abdominal fold, left and right armpit lady rashes. good progress noted will cont same wound treatment #21 Left lateral lower leg DTI pressure ulcer.Skin still intact Status: stable Assessment/Plan Pulm consulted s/p tracheostomy on 05/21/17 Cont to wean as tolerated Daily SBTs Now off pressors Cardiology consulted given SVT Digoxin and Diltiazem added ID consulted Cont broad-spectrum abx: vanco, meropenem + flagyl x 5more days per ID s/p flagyl (C. diff neg) F/u cultures Trend CBC Trend ABG Monitor CXR Renal consulted s/p IVFs Replete lytes Trend BMP Cont tube feeds via PEG Cont home meds including Depakote Eliquis on hold Pain control, supportive care, bowel regimen DC planning likely to subacute SNF likely on Sunday DVT ppx: SCDs, HSQ GI ppx: PPI Dispo: pending placement to sub-acute SNF for continued weaning FULL CODE per discussion w/ daughter Plan outlined above discussed with patient/family, RN, SW/CM, pulm, cardiology, ID regarding mgmt and dispo D/w CM re d/c planning to subacute vs LTAC D/w pulm re weaning D/w ID re abx D/w daughter re dispo to SNF Time of note may not reflect time of encounter Subjective Date patient seen: May 25, 2017 Time patient seen: 16:23 ROS Limited/Unobtainable: Yes Allergies: Coded Allergies: NO KNOWN DRUG ALLERGIES (Unverified Allergy, Unknown, 07/29/14) Subjective No acute o/n events s/p tracheostomy POD#4 Doing well on SIMV More awake, alert, following commands Denies pain, SOB ROS limited as pt w/ dementia Objective Last 24 Hour Vital Signs Date Time Temp Pulse Resp B/P (MAP) Pulse Ox O2 Delivery O2 Flow Rate FiO2 05/25/17 14:35 75 18 35 05/25/17 12:28 63 153/54 05/25/17 12:00 98.4 63 18 153/54 96 Mechanical Ventilator 35 05/25/17 12:00 35 05/25/17 12:00 66 05/25/17 10:35 79 18 35 05/25/17 08:48 82 18 35 05/25/17 08:45 69 05/25/17 08:00 35 05/25/17 08:00 98.2 68 22 138/68 97 Mechanical Ventilator 35 05/25/17 08:00 70 05/25/17 06:36 76 21 35 05/25/17 05:58 78 122/77 05/25/17 05:09 78 18 35 1/26/18 04:50 98.9 05/25/17 04:00 67 05/25/17 04:00 35 05/25/17 04:00 98.1 65 20 122/77 97 Mechanical Ventilator 35 05/25/17 03:30 81 18 35 05/25/17 01:15 76 18 35 05/25/17 00:55 69 138/61 05/25/17 00:00 98.9 69 18 138/61 98 Mechanical Ventilator 35 05/24/17 23:44 75 05/24/17 23:19 91 27 35 05/24/17 21:10 74 19 35 05/24/17 20:00 35 05/24/17 20:00 98.7 80 25 136/60 97 Mechanical Ventilator 35 05/24/17 19:15 75 05/24/17 18:54 75 19 35 05/24/17 17:43 78 143/59 05/24/17 17:09 80 19 35 Intake and Output 05/24/17 05/25/17 19:00 07:00 Intake Total 1745.500 ml 1188.334 ml Output Total 1500 ml 1000 ml Balance 245.500 ml 188.334 ml Intake Free Water 100 ml IV Total 1005.500 ml 588.334 ml Tube Feeding 540 ml 450 ml Other 200 ml 50 ml Output Urine Total 1500 ml 1000 ml # Bowel Movements 2 1 Height (Feet): 5 Height (Inches): 4.00 Weight (Pounds): 182 Objective General: awake, alert, follows simple commands Head: normocephalic, without obvious abnormality, atraumatic Neck: +trach c/d/i Eyes: conjunctivae/corneas clear. PERRL, EOM's intact Throat: lips, mucosa, and tongue normal. MMM Neck: supple, symmetrical, trachea midline, and no JVD. +Trach c/d/i Lungs: +rhonchi b/l Heart: regular rate and rhythm, S1, S2 normal, no murmur, click, rub or gallop Abdomen: soft, non-tender, non-distended, bowel sounds normal; +PEG c/d/i Extremities: extremities normal, atraumatic, no cyanosis, +BLE edema Pulses: 2+ and symmetric Skin: skin color, texture, turgor normal; no rashes or lesions Neurologic: moving all extremities Prachi Mejia M.D. 26, 2018 16:23
--- NOTE | 2017-05-25 18:57 | Wound Care Consultation ---
Wound Assessment Wound Assessment #1: Wound Number: 1 Wound Present on Admission: Yes New Wound: No Status Change of Wound: No Wound Location Body Site Modif: left Wound Location Body Site: heel Wound Type: pressure ulcer Rock Test: Does not Rock Pressure Ulcer Stage: Deep Tissue Injury Wound Thickness: Full Thickness Wound Length: 3.5 Wound Width: 3.5 Wound Depth: utd Percent of Wound Purple/Maroon: 100 Wound Drainage Amount: None Wound Drainage Odor: None/Absent Tissue Surrounding Wound: Intact Wound General Appearance: Reddened - purple Wound Assessment #2: Wound Number: 2 Wound Present on Admission: Yes New Wound: No Status Change of Wound: No Wound Location Body Site: other - Sacrococcygeal extending to left buttock Wound Type: pressure ulcer Rock Test: Does not Rock Pressure Ulcer Stage: III - unstageable pressure ulcer revealed as stage III Wound Thickness: Full Thickness Wound Length: 4.0 Wound Width: 3.5 Wound Depth: 0.2 Percent of Wound [place]/Red: 80 Percent of Wound Bed Yellow/Wh: 20 Wound Drainage Description: Serosanguineous Wound Drainage Amount: Moderate Wound Drainage Odor: None/Absent Tissue Surrounding Wound: Erythemic Wound General Appearance: Reddened - yellow Wound Assessment #3: Wound Number: 3 Wound Present on Admission: Yes New Wound: No Status Change of Wound: No Wound Location Body Site Modif: left, lateral Wound Location Body Site: malleolus/ankle Wound Type: pressure ulcer Rock Test: Does not Rock Pressure Ulcer Stage: Unstageable - DTI revealed as unstageable Wound Thickness: Full Thickness Wound Length: 2.5 Wound Width: 2.5 Wound Depth: utd Percent of Wound Bed Yellow/Wh: 100 Wound Drainage Description: Serosanguineous Wound Drainage Amount: Moderate Wound Drainage Odor: None/Absent Tissue Surrounding Wound: Macerated Wound General Appearance: Reddened - 100% yellow, Draining Wound Comment #1 Right big toe dry scab #2 Right 1st anterior toe DTI pressure ulcer. Skin still intact #3 Left 2nd anterior toe DTI pressure ulcer. Skin still intact #4 Left 3rd anterior toe DTI pressure ulcer. Skin still intact #5 Left 4th anterior toe DTI pressure ulcer. Skin still intact #6 Left 5th anterior toe DTI pressure ulcer. Skin still intact #7 Sacrococcygeal extending to left buttock unstageable pressure ulcer. Revealed as stage III with good granulating tissue. Good progress noted. will cont same treatment order. #8 Left lateral malleolus DTI pressure ulcer. Revealed as unstageable pressure ulcer. got significantly smaller in size. will change treatment to Santyl ointment and cont f/u with this pt #9 Left upper buttock area unstageable pressure ulcer. Revealed as stage II pressure ulcer. Good progress noted. Will cont with Triad cream application. #10 Left lower back unstageable pressure ulcer. Revealing as stage III as this time. will f/u with prognosis of the stage #11 Right buttock scattered stage II pressure ulcer.Good progress noted. Resolving at this time #12 IAD on perineal area extending up to mid back, left and right lower posterior thigh. Good progress noted. Resolving at this time #13 Left elbow unstageable pressure ulcer with black eschar adhered to wound bed. Good progress noted. will cont with same treatment #14 Right elbow DTI pressure ulcer. skin still intact #15 Left ischial tuberosity stage II pressure ulcer. Good progress noted. will cont same wound care order #16 Right ischial tuberosity stage II pressure ulcer.Good progress noted. will cont same wound care order #17 Right posterior knee necrotic open wound. Etiology unknown. Good progress noted. Dr Dykes saw pt and recommended to cont with Santyl ointment #18 Right heel DTI pressure ulcer. Skin still intact #19 Left heel DTI pressure ulcer. Skin still intact #20 Abdominal fold, left and right armpit lady rashes. good progress noted will cont same wound treatment #21 Left lateral lower leg DTI pressure ulcer.Skin still intact Reassessed this Pt. Good progress noted at this time and will cont to monitor Recommendation -Local wound care per protocol -Keep clean and dry -Optimize nutrition -Turn and reposition -Offload both heels -Apply Lotrimin on the area -Heel protector on both heels -Low air loss P200 mattress -Assess and f/u accordingly for any changes NILDA MEREDITH RN May 25, 2017 18:57
[2017-05-25 20:00] VITALS: BP 148/55
[2017-05-25] MEDS: Dyna-Hex 2% Top Sol 2oz TOPIC SCH (20:33)
[2017-05-25] MEDS: Fluconazole 100mg tab GT SCH (20:36)
[2017-05-25] MEDS ORDERED: Vitamin A&D Oint 2oz Tube TOPIC SCH (21:00)
[2017-05-26] VITALS: BP 158/70
[2017-05-26] MEDS: HYDROcodone/Acetamin 10/325 tab GT PRN ×3 (03:19→21:02)
[2017-05-26 04:00] VITALS: BP 140/62
[2017-05-26 04:39] LABS: BASOPHILS % (AUTO) 1.2 % (0.0-2.0); EOSINOPHILS % (AUTO) 6.6 % (0.0-3.0); HEMATOCRIT 25.9 % (37.0-47.0); HEMOGLOBIN 8.3 G/DL (12.0-16.0); LYMPHOCYTES % (AUTO) 48.5 % (20.0-45.0); MEAN CORPUSCULAR VOLUME 95 FL (80-99); MONOCYTES % (AUTO) 13.2 % (1.0-10.0); NEUTROPHILS % (AUTO) 30.4 % (45.0-75.0); PLATELET COUNT 388 K/UL (150-450); RED BLOOD COUNT 2.73 M/UL (4.20-5.40); RED CELL DISTRIBUTION WIDTH 17.4 % (11.6-14.8); WHITE BLOOD COUNT 5.7 K/UL (4.8-10.8)
[2017-05-26 04:56] LABS: ALANINE AMINOTRANSFERASE < 6 U/L (12-78); ALBUMIN 1.7 G/DL (3.4-5.0); ALBUMIN/GLOBULIN RATIO 0.4 (1.0-2.7); ALKALINE PHOSPHATASE 58 U/L (46-116); ANION GAP 5 mmol/L (5-15); ASPARTATE AMINO TRANSFERASE 12 U/L (15-37); BILIRUBIN,TOTAL 0.2 MG/DL (0.2-1.0); BLOOD UREA NITROGEN 2 mg/dL (7-18); CALCIUM 8.5 MG/DL (8.5-10.1); CARBON DIOXIDE 28 MMOL/L (21-32); CHLORIDE 108 MMOL/L (98-107); CREATININE 0.3 MG/DL (0.55-1.30); PHOSPHORUS 2.5 MG/DL (2.5-4.9); POTASSIUM 3.5 MMOL/L (3.5-5.1); SODIUM 141 MMOL/L (136-145)
[2017-05-26] MEDS: dilTIAZem HCl 30mg tab ORAL SCH ×3 (06:20→17:15)
--- NOTE | 2017-05-26 06:30 | Pulmonology Progress Note ---
Assessment/Plan Problems: (1) Acute respiratory failure with hypoxia and hypercapnia (2) Status post tracheostomy (3) Dementia (4) SVT (supraventricular tachycardia) (5) Sepsis Respiratory: monitor respiratory rate, adjust FIO2, CXR Renal: F/U I&O Infectious Disease: check cultures, continue antibiotics Gastrointestinal: continue feedings/current rate Neurologic: PRN Ativan, PRN Morphine Affect: PRN ativan Prophylaxis: Protonix Notes Reviewed: edi consultant, ID Discussed with: nurses, consultants Subjective Constitutional: Reports: no symptoms HEENT: Repors: no symptoms Respiratory: Reports: no symptoms Allergies: Coded Allergies: NO KNOWN DRUG ALLERGIES (Unverified Allergy, Unknown, 07/29/14) Objective Last 24 Hour Vital Signs Date Time Temp Pulse Resp B/P (MAP) Pulse Ox O2 Delivery O2 Flow Rate FiO2 05/26/17 06:20 63 140/62 05/26/17 05:22 63 18 35 05/26/17 04:18 99.0 05/26/17 04:00 98.8 71 20 140/62 97 Mechanical Ventilator 35 05/26/17 04:00 35 05/26/17 04:00 70 05/26/17 03:25 62 18 35 05/26/17 01:00 73 18 35 05/26/17 00:00 99.0 66 18 158/70 97 Mechanical Ventilator 35 05/26/17 00:00 35 05/26/17 00:00 69 05/25/17 23:29 79 157/65 05/25/17 23:19 79 19 35 05/25/17 20:54 77 19 35 05/25/17 20:00 35 05/25/17 20:00 98.7 77 20 148/55 96 Mechanical Ventilator 35 05/25/17 19:39 69 05/25/17 19:23 76 18 35 05/25/17 18:04 79 157/65 05/25/17 16:38 81 18 35 05/25/17 16:00 68 05/25/17 16:00 35 05/25/17 16:00 98.1 72 20 141/54 96 Mechanical Ventilator 35 05/25/17 14:35 75 18 35 05/25/17 12:28 63 153/54 05/25/17 12:00 98.4 63 18 153/54 96 Mechanical Ventilator 35 05/25/17 12:00 35 05/25/17 12:00 66 05/25/17 10:35 79 18 35 05/25/17 08:48 82 18 35 05/25/17 08:45 69 05/25/17 08:00 35 05/25/17 08:00 98.2 68 22 138/68 97 Mechanical Ventilator 35 05/25/17 08:00 70 05/25/17 06:36 76 21 35 Intake and Output 05/25/17 05/26/17 19:00 07:00 Intake Total 1173.334 ml 1005.000 ml Output Total 800 ml Balance 373.334 ml 1005.000 ml Intake Free Water 100 ml IV Total 433.334 ml 405.000 ml Tube Feeding 540 ml 450 ml Other 200 ml 50 ml Output Urine Total 800 ml # Bowel Movements 2 1 General Appearance: WD/WN HEENT: normocephalic, atraumatic, status post trach Respiratory/Chest: chest wall non-tender, lungs clear Breasts: no masses Cardiovascular: normal peripheral pulses, regular rhythm Abdomen: soft, non tender, no organomegaly Genitourinary: normal external genitalia Extremities: no cyanosis Skin: no rash Laboratory Tests 05/26/17 04:00: White Blood Count 5.7, Red Blood Count 2.73L, Hemoglobin 8.3L, Hematocrit 25.9L , Mean Corpuscular Volume 95, Mean Corpuscular Hemoglobin 30.5, Mean Corpuscular Hemoglobin Concent 32.1, Red Cell Distribution Width 17.4H, Platelet Count 388, Mean Platelet Volume 4.9L, Neutrophils (%) (Auto) 30.4L, Lymphocytes (%) (Auto) 48.5H, Monocytes (%) (Auto) 13.2H, Eosinophils (%) (Auto ) 6.6H, Basophils (%) (Auto) 1.2, Sodium Level 141, Potassium Level 3.5, Chloride Level 108H, Carbon Dioxide Level 28, Anion Gap 5, Blood Urea Nitrogen 2L, Creatinine 0.3L, Estimat Glomerular Filtration Rate , Glucose Level 86, Calcium Level 8.5, Phosphorus Level 2.5, Magnesium Level 1.4L, Total Bilirubin 0.2, Aspartate Amino Transf (AST/SGOT) 12L, Alanine Aminotransferase (ALT/SGPT) < 6L, Alkaline Phosphatase 58, Total Protein 5.8L, Albumin 1.7L, Globulin 4.1, Albumin/Globulin Ratio 0.4L Current Medications Medications (Trade) Dose Ordered Sig/Jacque Route PRN Reason Start Time Stop Time Status Last Admin Dose Admin Acetaminophen (Tylenol) 650 mg Q4H PRN GT Mild Pain/Temp > 100.5 05/22/17 20:00 06/16/17 11:59 Acetaminophen/ Hydrocodone Bitart ([place] 10/325) 1 tab Q4H PRN GT Severe Pain (Pain Scale 7-10) 05/24/17 20:15 05/31/17 20:14 05/26/17 03:19 Bisacodyl (Dulcolax) 10 mg DAILYPRN PRN RECTAL Constipation 2nd Line agent 05/22/17 20:00 06/21/17 19:59 Chlorhexidine Gluconate (Laly-Hex 2%) 1 applic DAILY@1999 TOPIC 05/22/17 20:00 06/12/17 19:59 05/25/17 20:33 Clotrimazole (Lotrimin) 1 applic EVERY 12 HOURS TOPIC 05/22/17 21:00 06/09/17 14:59 05/25/17 20:38 Clotrimazole (Lotrimin) 1 applic EVERY 12 HOURS TOPIC 05/25/17 21:00 06/24/17 20:59 UNV Collagenase (Santyl) 1 applic DAILY TOPIC 05/23/17 09:00 06/17/17 08:59 05/25/17 08:48 Collagenase (Santyl) 1 applic DAILYPRN PRN TOPIC soilage 05/22/17 20:00 06/21/17 19:59 05/23/17 20:00 Dextrose (Dextrose 50%) STAT PRN IV Hypoglycemia 05/22/17 20:00 06/21/17 19:59 Digoxin (Lanoxin) 0.25 mg DAILY ORAL 05/23/17 09:00 06/17/17 08:59 05/25/17 08:45 Diltiazem HCl (Cardizem) 30 mg EVERY 6 HOURS ORAL 05/23/17 00:00 06/16/17 17:59 05/26/17 06:20 Docusate Sodium (Colace) 100 mg EVERY 12 HOURS ORAL 05/22/17 21:00 06/10/17 09:59 05/22/17 21:09 Fluconazole (Diflucan) 100 mg DAILY@2000 GT 05/22/17 20:00 05/27/17 23:59 05/25/17 20:36 Heparin Sodium (Porcine) (Heparin 5000 units/ml) 5,000 units EVERY 12 HOURS SUBQ 05/22/17 21:00 06/09/17 08:59 05/25/17 20:35 Iron Sucrose 100 mg/Sodium Chloride 55 ml @ 200 mls/hr BEDTIME IV 05/23/17 21:00 06/01/17 21:17 05/25/17 20:34 Meropenem 1 gm/ Sodium Chloride 100 ml @ 200 mls/hr Q8HR@0630,1430,2230 IVPB 05/22/17 22:30 05/28/17 22:29 05/25/17 23:00 Ondansetron HCl (Zofran) 4 mg Q6H PRN IVP Nausea & Vomiting 05/22/17 19:45 06/09/17 01:44 Phosphorus (Phospha 250 Neutral) 500 mg THREE TIMES A DAY NG 05/23/17 09:00 06/15/17 12:59 05/25/17 18:04 Polyethylene Glycol (Miralax) 17 gm DAILYPRN PRN GT Constipation 05/22/17 20:00 06/21/17 19:59 Vancomycin HCl (Vanco rx to dose) 1 ea DAILYPRN PRN MISC Per rx protocol 05/24/17 18:15 06/23/17 18:14 Vancomycin/Sodium Chloride 250 ml @ 166.667 mls/hr Q12HR IVPB 05/24/17 21:00 05/27/17 20:59 05/25/17 21:41 Vitamin A/Vitamin D (A & D Oint) 1 applic EVERY 12 HOURS TOPIC 05/25/17 21:00 06/24/17 20:59 DWAYNE TY May 26, 2017 06:30
[2017-05-26 08:00] VITALS: BP 151/60
[2017-05-26] MEDS: Docusate 100mg/10ml Liq ORAL SCH ×2 (09:00→21:00)
[2017-05-26] MEDS: Vancomycin 750mg/NS 250ml 250 ML IVPB SCH ×2 (09:41→21:51)
[2017-05-26] MEDS: Heparin 5000 units/ml inj SUBQ SCH ×2 (09:56→21:03)
[2017-05-26] MEDS: Phospha 250 Neutral tab NG SCH ×3 (09:56→17:16)
[2017-05-26 12:00] VITALS: BP 141/66
[2017-05-26] MEDS ORDERED: Potassium Phosphate 30 MM in NS 275 ML IV ONE (12:00)
--- NOTE | 2017-05-26 12:00 | Nephrology Progress Note ---
Assessment/Plan Problem List: (1) Acute respiratory failure with hypoxia and hypercapnia Assessment: no trached (2) Septic shock (3) Renal insufficiency (4) Hypercalcemia Assessment Now trached acute renal failure resolving persistant low mag and K and Phos improved ? CKD underlying Acute respiratory failure, Trached septic shock sever Hypercalcemia, corrected HypoAlbuminemia Anemia Dementia Plan Plan: check Iron panel- IV venofer mag and phos supplement as needed monitor serum Ca 2D echo- Left ventricular ejection fraction estimated to be 65-70%. increase feeding Phos K and Mag supplement as needed hemodynamic support Aredia given 05/10 monitor renal parameters serum cortisol level 12 avoid nephrotoxics per orders Subjective ROS Limited/Unobtainable: No Objective Objective Last 24 Hour Vital Signs Date Time Temp Pulse Resp B/P (MAP) Pulse Ox O2 Delivery O2 Flow Rate FiO2 05/26/17 10:42 59 18 35 05/26/17 09:00 58 05/26/17 08:48 64 18 35 05/26/17 08:00 98.1 63 18 151/60 99 Mechanical Ventilator 35 05/26/17 08:00 35 05/26/17 08:00 57 05/26/17 07:03 59 18 35 05/26/17 06:20 63 140/62 05/26/17 05:22 63 18 35 05/26/17 04:18 99.0 05/26/17 04:00 98.8 71 20 140/62 97 Mechanical Ventilator 35 05/26/17 04:00 35 05/26/17 04:00 70 05/26/17 03:25 62 18 35 05/26/17 01:00 73 18 35 05/26/17 00:00 99.0 66 18 158/70 97 Mechanical Ventilator 35 05/26/17 00:00 35 05/26/17 00:00 69 05/25/17 23:29 79 157/65 05/25/17 23:19 79 19 35 05/25/17 20:54 77 19 35 05/25/17 20:00 35 05/25/17 20:00 98.7 77 20 148/55 96 Mechanical Ventilator 35 05/25/17 19:39 69 05/25/17 19:23 76 18 35 05/25/17 18:04 79 157/65 05/25/17 16:38 81 18 35 05/25/17 16:00 68 05/25/17 16:00 35 05/25/17 16:00 98.1 72 20 141/54 96 Mechanical Ventilator 35 05/25/17 14:35 75 18 35 05/25/17 12:28 63 153/54 05/25/17 12:00 98.4 63 18 153/54 96 Mechanical Ventilator 35 05/25/17 12:00 35 05/25/17 12:00 66 Intake and Output 05/25/17 05/26/17 19:00 07:00 Intake Total 1173.334 ml 1150.000 ml Output Total 800 ml 1000 ml Balance 373.334 ml 150.000 ml Intake Free Water 100 ml IV Total 433.334 ml 505.000 ml Tube Feeding 540 ml 495 ml Other 200 ml 50 ml Output Urine Total 800 ml 1000 ml # Bowel Movements 2 2 Laboratory Tests 05/26/17 04:00: White Blood Count 5.7, Red Blood Count 2.73L, Hemoglobin 8.3L, Hematocrit 25.9L , Mean Corpuscular Volume 95, Mean Corpuscular Hemoglobin 30.5, Mean Corpuscular Hemoglobin Concent 32.1, Red Cell Distribution Width 17.4H, Platelet Count 388, Mean Platelet Volume 4.9L, Neutrophils (%) (Auto) 30.4L, Lymphocytes (%) (Auto) 48.5H, Monocytes (%) (Auto) 13.2H, Eosinophils (%) (Auto ) 6.6H, Basophils (%) (Auto) 1.2, Sodium Level 141, Potassium Level 3.5, Chloride Level 108H, Carbon Dioxide Level 28, Anion Gap 5, Blood Urea Nitrogen 2L, Creatinine 0.3L, Estimat Glomerular Filtration Rate , Glucose Level 86, Calcium Level 8.5, Phosphorus Level 2.5, Magnesium Level 1.4L, Total Bilirubin 0.2, Aspartate Amino Transf (AST/SGOT) 12L, Alanine Aminotransferase (ALT/SGPT) < 6L, Alkaline Phosphatase 58, Total Protein 5.8L, Albumin 1.7L, Globulin 4.1, Albumin/Globulin Ratio 0.4L Height (Feet): 5 Height (Inches): 4.00 Weight (Pounds): 182 EENT: other - trach site clean Cardiovascular: bradycardia Respiratory/Chest: decreased breath sounds Abdomen: soft Objective no other changes ALYSON FLANAGAN May 26, 2017 12:00
[2017-05-26] MEDS ORDERED: Tubing IV Secondary IV ONE ×2 (13:54→15:39)
[2017-05-26] MEDS ORDERED: NS 500ML ONE (13:54)
--- NOTE | 2017-05-26 13:56 | General Progress Note ---
Assessment/Plan Problem List: (1) SVT (supraventricular tachycardia) ICD Codes: I47.1 - SVT (supraventricular tachycardia) SNOMED: 8637684 (2) Septic shock ICD Codes: A41.9 - Sepsis, unspecified organism; R65.21 - Severe sepsis with septic shock SNOMED: 26926780 (3) Acute respiratory failure with hypoxia and hypercapnia ICD Codes: J96.01 - Acute respiratory failure with hypoxia; J96.02 - Acute respiratory failure with hypercapnia SNOMED: 11944035, 14454245, 388281542 (4) Aspiration pneumonia ICD Codes: J69.0 - Pneumonitis due to inhalation of food and vomit SNOMED: 667909346 Qualifiers: Qualified Codes: J69.0 - Pneumonitis due to inhalation of food and vomit (5) Toxic metabolic encephalopathy ICD Codes: G92 - Toxic encephalopathy SNOMED: 138738312 (6) JUJU (acute kidney injury) ICD Codes: N17.9 - Acute kidney failure, unspecified SNOMED: 92200863 (7) Hyponatremia ICD Codes: E87.1 - Hyponatremia SNOMED: 70229116 (8) Hyperkalemia ICD Codes: E87.5 - Hyperkalemia SNOMED: 99233313 (9) Seizure disorder ICD Codes: G40.909 - Epilepsy, unspecified, not intractable, without status epilepticus SNOMED: 685942673 (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 (11) Dementia ICD Codes: F03.90 - Dementia SNOMED: 73363106 (12) S/P percutaneous endoscopic gastrostomy (PEG) tube placement ICD Codes: Z93.1 - Gastrostomy status SNOMED: 339631686 (13) Hypercalcemia ICD Codes: E83.52 - Hypercalcemia SNOMED: 56817930 (14) Hypophosphatemia ICD Codes: E83.39 - Other disorders of phosphorus metabolism SNOMED: 0278972 (15) Hypomagnesemia ICD Codes: E83.42 - Hypomagnesemia SNOMED: 328105794 (16) Hypokalemia ICD Codes: E87.6 - Hypokalemia SNOMED: 54483431 (17) Status post tracheostomy ICD Codes: Z93.0 - Tracheostomy status SNOMED: 93101749, 354536252 (18) S/P percutaneous endoscopic gastrostomy (PEG) tube placement ICD Codes: Z93.1 - Gastrostomy status SNOMED: 777139126 (19) Multiple pressure ulcers Assessment & Plan: #1 Right big toe dry scab #2 Right 1st anterior toe DTI pressure ulcer. Skin still intact #3 Left 2nd anterior toe DTI pressure ulcer. Skin still intact #4 Left 3rd anterior toe DTI pressure ulcer. Skin still intact #5 Left 4th anterior toe DTI pressure ulcer. Skin still intact #6 Left 5th anterior toe DTI pressure ulcer. Skin still intact #7 Sacrococcygeal extending to left buttock unstageable pressure ulcer. Revealed as stage III with good granulating tissue. Good progress noted. will cont same treatment order. #8 Left lateral malleolus DTI pressure ulcer. Revealed as unstageable pressure ulcer. got significantly smaller in size. will change treatment to Santyl ointment and cont f/u with this pt #9 Left upper buttock area unstageable pressure ulcer. Revealed as stage II pressure ulcer. Good progress noted. Will cont with Triad cream application. #10 Left lower back unstageable pressure ulcer. Revealing as stage III as this time. will f/u with prognosis of the stage #11 Right buttock scattered stage II pressure ulcer.Good progress noted. Resolving at this time #12 IAD on perineal area extending up to mid back, left and right lower posterior thigh. Good progress noted. Resolving at this time #13 Left elbow unstageable pressure ulcer with black eschar adhered to wound bed. Good progress noted. will cont with same treatment #14 Right elbow DTI pressure ulcer. skin still intact #15 Left ischial tuberosity stage II pressure ulcer. Good progress noted. will cont same wound care order #16 Right ischial tuberosity stage II pressure ulcer.Good progress noted. will cont same wound care order #17 Right posterior knee necrotic open wound. Etiology unknown. Good progress noted. Dr Dykse saw pt and recommended to cont with Santyl ointment #18 Right heel DTI pressure ulcer. Skin still intact #19 Left heel DTI pressure ulcer. Skin still intact #20 Abdominal fold, left and right armpit lady rashes. good progress noted will cont same wound treatment #21 Left lateral lower leg DTI pressure ulcer.Skin still intact Status: stable Assessment/Plan Pulm consulted s/p tracheostomy on 05/21/17 Cont to wean as tolerated Daily SBTs Now off pressors Cardiology consulted given SVT Digoxin and Diltiazem added ID consulted Cont broad-spectrum abx: vanco, meropenem + flagyl x 3 more days per ID s/p flagyl (C. diff neg) F/u cultures Trend CBC Trend ABG Monitor CXR Renal consulted s/p IVFs Replete lytes Trend BMP Cont tube feeds via PEG Cont home meds including Depakote Eliquis on hold Pain control, supportive care, bowel regimen DC planning likely to subacute SNF likely on Sunday DVT ppx: SCDs, HSQ GI ppx: PPI Dispo: pending placement to sub-acute SNF for continued weaning. DC on hold pending correction of electrolytes, IV abx per ID and stabilization on vent FULL CODE per discussion w/ daughter Plan outlined above discussed with patient/family, RN, SW/CM, pulm, cardiology, ID regarding mgmt and dispo D/w CM re d/c planning to subacute vs LTAC D/w pulm re weaning D/w ID re abx D/w daughter re dispo to SNF Time of note may not reflect time of encounter Subjective Date patient seen: May 26, 2017 Time patient seen: 13:56 ROS Limited/Unobtainable: Yes Allergies: Coded Allergies: NO KNOWN DRUG ALLERGIES (Unverified Allergy, Unknown, 07/29/14) Subjective No acute o/n events s/p tracheostomy POD#5 Doing well on SIMV but intermittently with tachypnea DC on hold pending correction of electrolytes, IV abx per ID and stabilization on vent More awake, alert, following commands Denies pain, SOB ROS limited as pt w/ dementia Objective Last 24 Hour Vital Signs Date Time Temp Pulse Resp B/P (MAP) Pulse Ox O2 Delivery O2 Flow Rate FiO2 05/26/17 13:10 35 05/26/17 12:40 60 141/66 05/26/17 12:36 59 18 35 05/26/17 12:00 98.2 60 18 141/66 100 Mechanical Ventilator 35 05/26/17 12:00 35 05/26/17 11:45 59 05/26/17 10:42 59 18 35 05/26/17 09:00 58 05/26/17 08:48 64 18 35 05/26/17 08:00 98.1 63 18 151/60 99 Mechanical Ventilator 35 05/26/17 08:00 35 05/26/17 08:00 57 05/26/17 07:03 59 18 35 05/26/17 06:20 63 140/62 05/26/17 05:22 63 18 35 05/26/17 04:18 99.0 05/26/17 04:00 98.8 71 20 140/62 97 Mechanical Ventilator 35 05/26/17 04:00 35 05/26/17 04:00 70 05/26/17 03:25 62 18 35 05/26/17 01:00 73 18 35 05/26/17 00:00 99.0 66 18 158/70 97 Mechanical Ventilator 35 05/26/17 00:00 35 05/26/17 00:00 69 05/25/17 23:29 79 157/65 05/25/17 23:19 79 19 35 05/25/17 20:54 77 19 35 05/25/17 20:00 35 05/25/17 20:00 98.7 77 20 148/55 96 Mechanical Ventilator 35 05/25/17 19:39 69 05/25/17 19:23 76 18 35 05/25/17 18:04 79 157/65 05/25/17 16:38 81 18 35 05/25/17 16:00 68 05/25/17 16:00 35 05/25/17 16:00 98.1 72 20 141/54 96 Mechanical Ventilator 35 05/25/17 14:35 75 18 35 Intake and Output 05/25/17 05/26/17 19:00 07:00 Intake Total 1173.334 ml 1150.000 ml Output Total 800 ml 1000 ml Balance 373.334 ml 150.000 ml Intake Free Water 100 ml IV Total 433.334 ml 505.000 ml Tube Feeding 540 ml 495 ml Other 200 ml 50 ml Output Urine Total 800 ml 1000 ml # Bowel Movements 2 2 Laboratory Tests 05/26/17 04:00: White Blood Count 5.7, Red Blood Count 2.73L, Hemoglobin 8.3L, Hematocrit 25.9L , Mean Corpuscular Volume 95, Mean Corpuscular Hemoglobin 30.5, Mean Corpuscular Hemoglobin Concent 32.1, Red Cell Distribution Width 17.4H, Platelet Count 388, Mean Platelet Volume 4.9L, Neutrophils (%) (Auto) 30.4L, Lymphocytes (%) (Auto) 48.5H, Monocytes (%) (Auto) 13.2H, Eosinophils (%) (Auto ) 6.6H, Basophils (%) (Auto) 1.2, Sodium Level 141, Potassium Level 3.5, Chloride Level 108H, Carbon Dioxide Level 28, Anion Gap 5, Blood Urea Nitrogen 2L, Creatinine 0.3L, Estimat Glomerular Filtration Rate , Glucose Level 86, Calcium Level 8.5, Phosphorus Level 2.5, Magnesium Level 1.4L, Total Bilirubin 0.2, Aspartate Amino Transf (AST/SGOT) 12L, Alanine Aminotransferase (ALT/SGPT) < 6L, Alkaline Phosphatase 58, Total Protein 5.8L, Albumin 1.7L, Globulin 4.1, Albumin/Globulin Ratio 0.4L Height (Feet): 5 Height (Inches): 4.00 Weight (Pounds): 182 Objective General: awake, alert, follows simple commands Head: normocephalic, without obvious abnormality, atraumatic Neck: +trach c/d/i Eyes: conjunctivae/corneas clear. PERRL, EOM's intact Throat: lips, mucosa, and tongue normal. MMM Neck: supple, symmetrical, trachea midline, and no JVD. +Trach c/d/i Lungs: +rhonchi b/l Heart: regular rate and rhythm, S1, S2 normal, no murmur, click, rub or gallop Abdomen: soft, non-tender, non-distended, bowel sounds normal; +PEG c/d/i Extremities: extremities normal, atraumatic, no cyanosis, +BLE edema Pulses: 2+ and symmetric Skin: skin color, texture, turgor normal; no rashes or lesions Neurologic: moving all extremities Prachi Mejia M.D. May 26, 2017 13:56
[2017-05-26 16:00] VITALS: BP 136/61
--- NOTE | 2017-05-26 16:09 | Infectious Diseases Prog Note ---
Assessment/Plan Assessment/Plan ASSESSMENT AND PLAN: 1. - sepsis, shock, acinetobacter pna/pseudomonas pna, ? pseudomonas sacral wound infection, vent, ? c.diff., leukocytosis, fevers, ? fungal rash vs other - chest x-ray worse, leukocytosis resolved, c.diff. negative, fungal uti - s/p trach - meropenem, vancomycin and diflucan for 3 days to complete 10 day course abx - check labs, chest x-ray - no pressors - chest x-ray stable - skin care per protocol, clotrimazole cream 2. respiratory failure, on vent, icu care 3. Acute kidney injury, elevated creatinine. 4. Hypertension. 5. Diabetes. 6. Asthma. 7. Alzheimer's with some dementia. 8. Cerebrovascular accident. 9. Aspiration risk. 10. Anemia. 11. Seizures. 12. Memory loss. 13. Past medical history as noted. 14. No allergy. 15. Social history is negative. 16. Family history noncontributory. 17. Case discussed with RN. 18. MAR was noted. 19. Continue treatment per primary consultants. 20. Skin care protocol. 21. Possible fungal rash. Continue cream. 22. Questionable drug rash. 23. Continue supportive care. 24. Critical condition. 25. Notes were reviewed. Subjective Constitutional: Reports: fatigue, other - alert, + trach and vent, Denies: fever HEENT: Reports: congestion Respiratory: Reports: shortness of breath Cardiovascular: Denies: chest pain Gastrointestinal/Abdominal: Denies: nausea, vomiting, diarrhea Genitourinary: Reports: other - + cota Neurologic: Denies: headache Psychiatric: Denies: depression Skin: Denies: rash Hematologic: Denies: bleeding Musculoskeletal: Denies: pain Allergies: Coded Allergies: NO KNOWN DRUG ALLERGIES (Unverified Allergy, Unknown, 07/29/14) Objective Vital Signs Last 24 Hour Vital Signs Date Time Temp Pulse Resp B/P (MAP) Pulse Ox O2 Delivery O2 Flow Rate FiO2 05/26/17 14:48 59 18 35 05/26/17 13:10 35 05/26/17 12:40 60 141/66 05/26/17 12:36 59 18 35 05/26/17 12:00 98.2 60 18 141/66 100 Mechanical Ventilator 35 05/26/17 12:00 35 05/26/17 11:45 59 05/26/17 10:42 59 18 35 05/26/17 09:00 58 05/26/17 08:48 64 18 35 05/26/17 08:00 98.1 63 18 151/60 99 Mechanical Ventilator 35 05/26/17 08:00 35 05/26/17 08:00 57 05/26/17 07:03 59 18 35 05/26/17 06:20 63 140/62 05/26/17 05:22 63 18 35 05/26/17 04:18 99.0 05/26/17 04:00 98.8 71 20 140/62 97 Mechanical Ventilator 35 05/26/17 04:00 35 05/26/17 04:00 70 05/26/17 03:25 62 18 35 05/26/17 01:00 73 18 35 05/26/17 00:00 99.0 66 18 158/70 97 Mechanical Ventilator 35 05/26/17 00:00 35 05/26/17 00:00 69 05/25/17 23:29 79 157/65 05/25/17 23:19 79 19 35 05/25/17 20:54 77 19 35 05/25/17 20:00 35 05/25/17 20:00 98.7 77 20 148/55 96 Mechanical Ventilator 35 05/25/17 19:39 69 05/25/17 19:23 76 18 35 05/25/17 18:04 79 157/65 05/25/17 16:38 81 18 35 Height (Feet): 5 Height (Inches): 4.00 Weight (Pounds): 182 General Appearance: no acute distress HEENT: normocephalic, atraumatic, anicteric, status post trach Respiratory/Chest: crackles/rales, rhonchi - bilaterally Cardiovascular: normal rate, regular rhythm, no gallop/murmur, no JVD Abdomen: normal bowel sounds, soft, non tender, no organomegaly, non distended Genitourinary: other - + cota - urine clear Extremities: no cyanosis Skin: no rash 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 Heart size and mediastinal contours are stable. Persistent interstitial opacification/ edema and patchy bilateral airspace opacities with small right pleural effusion. Interval development of a small left lateral pleural effusion and increased left base/retrocardiac opacities. No pneumothorax.. Gastrostomy tube partially visualized. Impression: Slight interval worsening of aeration with development of small left pleural effusion and increasing left basilar atelectasis/consolidation. Support lines and tubes unchanged 05/14 - chest x-ray: Impression: Interstitial and patchy bilateral airspace opacities with continued improved aeration of the right base compared to the prior exam. Support lines/tubes unchanged in position. 05/16 - chest x-ray - no change (report noted) 05/18 - chest x-ray - Impression: Interval worsening of aeration with increasing right midlung and left basilar opacities. 05/20 - chest x-ray - Impression: Little change since previous study. Bilateral airspace and interstitial disease remains. Bilateral pleural effusions. 05/22 - chest x-ray - Impression: Interim conversion of endotracheal tube to a tracheostomy. No radiographically evident complication Otherwise stable findings as described 05/24 - chest x-ray - Findings: Bilateral interstitial and airspace opacities persist, unchanged. Bilateral pleural effusions persist. Tubes and lines remain in stable positions Impression: Unchanged, over one day, findings as above. Microbiology Date/Time Source Procedure Growth Status 05/17/17 13:00 Blood Blood Culture - Final NO GROWTH AFTER 5 DAYS Complete 05/12/17 14:12 Sputum Gram Stain - Final Complete 05/12/17 14:12 Sputum Culture - Final Acinetobacter Baumanii Pseudomonas Aeruginosa Complete 05/15/17 18:00 Stool Clostridium difficile Toxin Assay - Final Complete 05/17/17 13:00 Indwelling Cath Urine Culture - Final Zaria Albicans Complete 05/10/17 10:00 Sacral Wound Gram Stain - Final Complete 05/10/17 10:00 Wound Culture - Final Pseudomonas Aeruginosa Zaria Albicans Usual Skin Beckie Complete Laboratory Tests Test 05/26/17 04:00 White Blood Count 5.7 K/UL (4.8-10.8) Red Blood Count 2.73 M/UL (4.20-5.40) L Hemoglobin 8.3 G/DL (12.0-16.0) L Hematocrit 25.9 % (37.0-47.0) L Mean Corpuscular Volume 95 FL (80-99) Mean Corpuscular Hemoglobin 30.5 PG (27.0-31.0) Mean Corpuscular Hemoglobin Concent 32.1 G/DL (32.0-36.0) Red Cell Distribution Width 17.4 % (11.6-14.8) H Platelet Count 388 K/UL (150-450) Mean Platelet Volume 4.9 FL (6.5-10.1) L Neutrophils (%) (Auto) 30.4 % (45.0-75.0) L Lymphocytes (%) (Auto) 48.5 % (20.0-45.0) H Monocytes (%) (Auto) 13.2 % (1.0-10.0) H Eosinophils (%) (Auto) 6.6 % (0.0-3.0) H Basophils (%) (Auto) 1.2 % (0.0-2.0) Sodium Level 141 MMOL/L (136-145) Potassium Level 3.5 MMOL/L (3.5-5.1) Chloride Level 108 MMOL/L (98-107) H Carbon Dioxide Level 28 MMOL/L (21-32) Anion Gap 5 mmol/L (5-15) Blood Urea Nitrogen 2 mg/dL (7-18) L Creatinine 0.3 MG/DL (0.55-1.30) L Estimat Glomerular Filtration Rate mL/min (>60) Glucose Level 86 MG/DL (74-106) Calcium Level 8.5 MG/DL (8.5-10.1) Phosphorus Level 2.5 MG/DL (2.5-4.9) Magnesium Level 1.4 MG/DL (1.8-2.4) L Total Bilirubin 0.2 MG/DL (0.2-1.0) Aspartate Amino Transf (AST/SGOT) 12 U/L (15-37) L Alanine Aminotransferase (ALT/SGPT) < 6 U/L (12-78) L Alkaline Phosphatase 58 U/L (46-116) Total Protein 5.8 G/DL (6.4-8.2) L Albumin 1.7 G/DL (3.4-5.0) L Globulin 4.1 g/dL Albumin/Globulin Ratio 0.4 (1.0-2.7) L Current Medications Medications (Trade) Dose Ordered Sig/Jacque Route PRN Reason Start Time Stop Time Status Last Admin Dose Admin Acetaminophen (Tylenol) 650 mg Q4H PRN GT Mild Pain/Temp > 100.5 05/22/17 20:00 06/16/17 11:59 Acetaminophen/ Hydrocodone Bitart ([place] 10/325) 1 tab Q4H PRN GT Severe Pain (Pain Scale 7-10) 05/24/17 20:15 05/31/17 20:14 05/26/17 10:27 Bisacodyl (Dulcolax) 10 mg DAILYPRN PRN RECTAL Constipation 2nd Line agent 05/22/17 20:00 06/21/17 19:59 Chlorhexidine Gluconate (Laly-Hex 2%) 1 applic DAILY@1999 TOPIC 05/22/17 20:00 06/12/17 19:59 05/25/17 20:33 Clotrimazole (Lotrimin) 1 applic EVERY 12 HOURS TOPIC 05/22/17 21:00 06/09/17 14:59 05/26/17 09:56 Collagenase (Santyl) 1 applic DAILY TOPIC 05/23/17 09:00 06/17/17 08:59 05/26/17 09:57 Collagenase (Santyl) 1 applic DAILYPRN PRN TOPIC soilage 05/22/17 20:00 06/21/17 19:59 05/23/17 20:00 Dextrose (Dextrose 50%) STAT PRN IV Hypoglycemia 05/22/17 20:00 06/21/17 19:59 Digoxin (Lanoxin) 0.25 mg DAILY ORAL 05/23/17 09:00 06/17/17 08:59 05/25/17 08:45 Diltiazem HCl (Cardizem) 30 mg EVERY 6 HOURS ORAL 05/23/17 00:00 06/16/17 17:59 05/26/17 12:40 Docusate Sodium (Colace) 100 mg EVERY 12 HOURS ORAL 05/22/17 21:00 06/10/17 09:59 05/22/17 21:09 Fluconazole (Diflucan) 100 mg DAILY@1999 GT 05/22/17 20:00 05/27/17 23:59 05/25/17 20:36 Heparin Sodium (Porcine) (Heparin 5000 units/ml) 5,000 units EVERY 12 HOURS SUBQ 05/22/17 21:00 06/09/17 08:59 05/26/17 09:56 Iron Sucrose 100 mg/Sodium Chloride 55 ml @ 200 mls/hr BEDTIME IV 05/23/17 21:00 06/01/17 21:17 05/25/17 20:34 Meropenem 1 gm/ Sodium Chloride 100 ml @ 200 mls/hr Q8HR@0630,1430,2230 IVPB 05/22/17 22:30 05/28/17 22:29 05/26/17 15:13 Ondansetron HCl (Zofran) 4 mg Q6H PRN IVP Nausea & Vomiting 05/22/17 19:45 06/09/17 01:44 Phosphorus (Phospha 250 Neutral) 500 mg THREE TIMES A DAY NG 05/23/17 09:00 06/15/17 12:59 05/26/17 13:40 Polyethylene Glycol (Miralax) 17 gm DAILYPRN PRN GT Constipation 05/22/17 20:00 06/21/17 19:59 Potassium Phosphate 30 mm/ Sodium Chloride 285 ml @ 47.5 mls/hr ONCE ONCE IV 05/26/17 12:00 05/26/17 17:59 05/26/17 12:40 Vancomycin HCl (Vanco rx to dose) 1 ea DAILYPRN PRN MISC Per rx protocol 05/24/17 18:15 06/23/17 18:14 Vancomycin/Sodium Chloride 250 ml @ 166.667 mls/hr Q12HR IVPB 05/24/17 21:00 05/27/17 20:59 05/26/17 09:41 Vitamin A/Vitamin D (A & D Oint) 1 applic EVERY 12 HOURS TOPIC 05/26/17 21:00 06/25/17 20:59 TIERA PRADO May 26, 2017 16:09
[2017-05-26 20:00] VITALS: BP 140/69
[2017-05-26] MEDS: Dyna-Hex 2% Top Sol 2oz TOPIC SCH (21:00)
[2017-05-26] MEDS: Fluconazole 100mg tab GT SCH (21:00)
[2017-05-26] MEDS: Vitamin A&D Oint 2oz Tube TOPIC SCH (21:05)
[2017-05-27] VITALS: BP 149/71
[2017-05-27] MEDS: dilTIAZem HCl 30mg tab ORAL SCH ×5 (00:47→23:44)
[2017-05-27] MEDS: HYDROcodone/Acetamin 10/325 tab GT PRN ×2 (03:37→21:52)
[2017-05-27 04:00] VITALS: BP 146/71
[2017-05-27 05:48] LABS: BASOPHILS % (AUTO) 1.3 % (0.0-2.0); EOSINOPHILS % (AUTO) 9.8 % (0.0-3.0); HEMATOCRIT 26.8 % (37.0-47.0); HEMOGLOBIN 8.6 G/DL (12.0-16.0); LYMPHOCYTES % (AUTO) 48.1 % (20.0-45.0); MEAN CORPUSCULAR VOLUME 95 FL (80-99); MONOCYTES % (AUTO) 13.8 % (1.0-10.0); NEUTROPHILS % (AUTO) 26.9 % (45.0-75.0); PLATELET COUNT 391 K/UL (150-450); RED BLOOD COUNT 2.83 M/UL (4.20-5.40); RED CELL DISTRIBUTION WIDTH 17.8 % (11.6-14.8); WHITE BLOOD COUNT 5.6 K/UL (4.8-10.8)
[2017-05-27 07:16] LABS: ALANINE AMINOTRANSFERASE < 6 U/L (12-78); ALBUMIN 1.8 G/DL (3.4-5.0); ALBUMIN/GLOBULIN RATIO 0.4 (1.0-2.7); ALKALINE PHOSPHATASE 67 U/L (46-116); ANION GAP 8 mmol/L (5-15); ASPARTATE AMINO TRANSFERASE 15 U/L (15-37); BILIRUBIN,TOTAL 0.3 MG/DL (0.2-1.0); BLOOD UREA NITROGEN 3 mg/dL (7-18); CALCIUM 8.4 MG/DL (8.5-10.1); CARBON DIOXIDE 24 MMOL/L (21-32); CHLORIDE 110 MMOL/L (98-107); CREATININE 0.4 MG/DL (0.55-1.30); POTASSIUM 3.6 MMOL/L (3.5-5.1); SODIUM 142 MMOL/L (136-145)
--- NOTE | 2017-05-27 07:48 | Pulmonology Progress Note ---
Assessment/Plan Problems: (1) Acute respiratory failure with hypoxia and hypercapnia (2) Status post tracheostomy (3) Dementia (4) SVT (supraventricular tachycardia) (5) Sepsis Respiratory: monitor respiratory rate, CXR Cardiac: start pressors, continue to monitor HR/BP Infectious Disease: check cultures, continue antibiotics Gastrointestinal: continue feedings/current rate Endocrine: monitor blood sugar, check TSH, continue sliding scale insulin Hematologic: transfuse if hgb<8.5 Neurologic: PRN Morphine, keep patient comfortable Affect: PRN ativan Prophylaxis: Heparin Notes Reviewed: cardio, renal Discussed with: nurses, consultants Subjective ROS Limited/Unobtainable: No Respiratory: Reports: no symptoms Allergies: Coded Allergies: NO KNOWN DRUG ALLERGIES (Unverified Allergy, Unknown, 07/29/14) Objective Last 24 Hour Vital Signs Date Time Temp Pulse Resp B/P (MAP) Pulse Ox O2 Delivery O2 Flow Rate FiO2 05/27/17 06:42 54 18 35 05/27/17 05:17 63 146/71 05/27/17 05:03 63 18 35 05/27/17 04:36 98.9 05/27/17 04:00 60 05/27/17 04:00 98.9 61 17 146/71 100 Mechanical Ventilator 35 05/27/17 04:00 35 05/27/17 02:35 72 20 35 05/27/17 00:47 75 144/69 05/27/17 00:30 79 19 35 05/27/17 00:00 62 05/27/17 00:00 98.5 60 18 149/71 100 Mechanical Ventilator 35 05/27/17 00:00 35 05/26/17 22:36 75 21 35 05/26/17 20:30 78 22 35 05/26/17 20:00 98.8 61 19 140/69 100 Mechanical Ventilator 35 05/26/17 20:00 35 05/26/17 19:56 60 05/26/17 19:08 62 18 35 05/26/17 17:15 62 136/61 05/26/17 16:35 62 16 35 05/26/17 16:00 58 05/26/17 16:00 98.2 60 18 136/61 99 Mechanical Ventilator 35 05/26/17 14:48 59 18 35 05/26/17 13:10 35 05/26/17 12:40 60 141/66 05/26/17 12:36 59 18 35 05/26/17 12:00 98.2 60 18 141/66 100 Mechanical Ventilator 35 05/26/17 12:00 35 05/26/17 11:45 59 05/26/17 10:42 59 18 35 05/26/17 09:00 58 05/26/17 08:48 64 18 35 05/26/17 08:00 98.1 63 18 151/60 99 Mechanical Ventilator 35 05/26/17 08:00 35 05/26/17 08:00 57 Intake and Output 05/26/17 05/27/17 19:00 07:00 Intake Total 1655.000 ml 1260.000 ml Output Total 2400 ml 1400 ml Balance -745.000 ml -140.000 ml Intake Free Water 200 ml IV Total 935.000 ml 505.000 ml Tube Feeding 540 ml 495 ml Other 180 ml 60 ml Output Urine Total 2400 ml 1400 ml HEENT: normocephalic, atraumatic Respiratory/Chest: chest wall non-tender, lungs clear Breasts: no masses Cardiovascular: normal peripheral pulses, regular rhythm Abdomen: normal bowel sounds, non distended Genitourinary: normal external genitalia Extremities: no clubbing Skin: no rash Laboratory Tests 05/27/17 04:00: White Blood Count 5.6, Red Blood Count 2.83L, Hemoglobin 8.6L, Hematocrit 26.8L , Mean Corpuscular Volume 95, Mean Corpuscular Hemoglobin 30.3, Mean Corpuscular Hemoglobin Concent 32.0, Red Cell Distribution Width 17.8H, Platelet Count 391, Mean Platelet Volume 5.0L, Neutrophils (%) (Auto) 26.9L, Lymphocytes (%) (Auto) 48.1H, Monocytes (%) (Auto) 13.8H, Eosinophils (%) (Auto ) 9.8H, Basophils (%) (Auto) 1.3, Sodium Level 142, Potassium Level 3.6, Chloride Level 110H, Carbon Dioxide Level 24, Anion Gap 8, Blood Urea Nitrogen 3L, Creatinine 0.4L, Estimat Glomerular Filtration Rate , Glucose Level 78, Calcium Level 8.4L, Total Bilirubin 0.3, Aspartate Amino Transf (AST/SGOT) 15, Alanine Aminotransferase (ALT/SGPT) < 6L, Alkaline Phosphatase 67, Pro-B-Type Natriuretic Peptide 1495H, Total Protein 6.0L, Albumin 1.8L, Globulin 4.2, Albumin/Globulin Ratio 0.4L Current Medications Medications (Trade) Dose Ordered Sig/Jacque Route PRN Reason Start Time Stop Time Status Last Admin Dose Admin Acetaminophen (Tylenol) 650 mg Q4H PRN GT Mild Pain/Temp > 100.5 05/22/17 20:00 06/16/17 11:59 Acetaminophen/ Hydrocodone Bitart ([place] 10/325) 1 tab Q4H PRN GT Severe Pain (Pain Scale 7-10) 05/24/17 20:15 05/31/17 20:14 05/27/17 03:37 Bisacodyl (Dulcolax) 10 mg DAILYPRN PRN RECTAL Constipation 2nd Line agent 05/22/17 20:00 06/21/17 19:59 Chlorhexidine Gluconate (Laly-Hex 2%) 1 applic DAILY@1999 TOPIC 05/22/17 20:00 06/12/17 19:59 05/26/17 21:00 Clotrimazole (Lotrimin) 1 applic EVERY 12 HOURS TOPIC 05/22/17 21:00 06/09/17 14:59 05/26/17 21:05 Collagenase (Santyl) 1 applic DAILY TOPIC 05/23/17 09:00 06/17/17 08:59 05/26/17 09:57 Collagenase (Santyl) 1 applic DAILYPRN PRN TOPIC soilage 05/22/17 20:00 06/21/17 19:59 05/23/17 20:00 Dextrose (Dextrose 50%) STAT PRN IV Hypoglycemia 05/22/17 20:00 06/21/17 19:59 Digoxin (Lanoxin) 0.25 mg DAILY ORAL 05/23/17 09:00 06/17/17 08:59 05/25/17 08:45 Diltiazem HCl (Cardizem) 30 mg EVERY 6 HOURS ORAL 05/23/17 00:00 06/16/17 17:59 05/27/17 05:17 Docusate Sodium (Colace) 100 mg EVERY 12 HOURS ORAL 05/22/17 21:00 06/10/17 09:59 05/22/17 21:09 Fluconazole (Diflucan) 100 mg DAILY@2000 GT 05/26/17 20:00 05/31/17 19:59 05/26/17 21:00 Heparin Sodium (Porcine) (Heparin 5000 units/ml) 5,000 units EVERY 12 HOURS SUBQ 05/22/17 21:00 06/09/17 08:59 05/26/17 21:03 Iron Sucrose 100 mg/Sodium Chloride 55 ml @ 200 mls/hr BEDTIME IV 05/23/17 21:00 06/01/17 21:17 05/26/17 21:02 Meropenem 1 gm/ Sodium Chloride 100 ml @ 200 mls/hr Q8HR@0630,1430,2230 IVPB 05/26/17 22:30 05/31/17 22:29 05/27/17 06:30 Ondansetron HCl (Zofran) 4 mg Q6H PRN IVP Nausea & Vomiting 05/22/17 19:45 06/09/17 01:44 Phosphorus (Phospha 250 Neutral) 500 mg THREE TIMES A DAY NG 05/23/17 09:00 06/15/17 12:59 05/26/17 17:16 Polyethylene Glycol (Miralax) 17 gm DAILYPRN PRN GT Constipation 05/22/17 20:00 06/21/17 19:59 Vancomycin HCl (Vanco rx to dose) 1 ea DAILYPRN PRN MISC Per rx protocol 05/24/17 18:15 06/23/17 18:14 Vancomycin/Sodium Chloride 250 ml @ 166.667 mls/hr Q12HR IVPB 05/26/17 21:00 05/31/17 20:59 05/26/17 21:51 Vitamin A/Vitamin D (A & D Oint) 1 applic EVERY 12 HOURS TOPIC 05/26/17 21:00 06/25/17 20:59 05/26/17 21:05 DWAYNE CHERY May 27, 2017 07:48
[2017-05-27 07:56] VITALS: BP 147/111
[2017-05-27 08:21] LABS: PHOSPHORUS 3.2 MG/DL (2.5-4.9)
[2017-05-27] MEDS: Heparin 5000 units/ml inj SUBQ SCH ×2 (08:45→21:33)
[2017-05-27] MEDS: Phospha 250 Neutral tab NG SCH ×3 (08:45→17:20)
[2017-05-27] MEDS: Docusate 100mg/10ml Liq ORAL SCH ×2 (08:45→21:31)
[2017-05-27] MEDS: Vancomycin 750mg/NS 250ml 250 ML IVPB SCH ×2 (08:55→21:52)
[2017-05-27] MEDS: Vitamin A&D Oint 2oz Tube TOPIC SCH ×2 (08:55→21:31)
--- NOTE | 2017-05-27 10:42 | Diagnostic Imaging Report ---
Indication: Dyspnea Technique: XRAY Chest 1v Comparison: 05/24/2017 Findings: Tracheostomy tube and subclavian line unchanged in position. Heart size and mediastinal contours are stable. Bilateral interstitial and airspace disease is persists. There is unchanged blunting of the bilateral costophrenic sulci. There is no pneumothorax. No acute osseous abnormality is seen. There is evidence of prior kyphoplasty/vertebroplasty. Gastrostomy tube noted. Impression: No significant interval change in interstitial and patchy bilateral airspace disease.
--- NOTE | 2017-05-27 10:43 | Nephrology Progress Note ---
Assessment/Plan Problem List: (1) Acute respiratory failure with hypoxia and hypercapnia Assessment: no trached (2) Septic shock (3) Renal insufficiency (4) Hypercalcemia Assessment Now trached acute renal failure resolving persistant low mag and K and Phos improved ? CKD underlying Acute respiratory failure, Trached septic shock sever Hypercalcemia, corrected HypoAlbuminemia Anemia Dementia Plan Plan: check Iron panel- IV venofer mag and phos supplement as needed monitor serum Ca 2D echo- Left ventricular ejection fraction estimated to be 65-70%. increase feeding Phos K and Mag supplement as needed hemodynamic support Aredia given 05/10 monitor renal parameters serum cortisol level 12 avoid nephrotoxics per orders Subjective ROS Limited/Unobtainable: No Objective Objective Last 24 Hour Vital Signs Date Time Temp Pulse Resp B/P (MAP) Pulse Ox O2 Delivery O2 Flow Rate FiO2 05/27/17 10:30 65 18 35 05/27/17 09:00 57 05/27/17 08:36 61 20 35 05/27/17 08:00 35 05/27/17 07:56 98.6 73 18 147/111 100 Mechanical Ventilator 35 05/27/17 07:40 67 05/27/17 06:42 54 18 35 05/27/17 05:17 63 146/71 05/27/17 05:03 63 18 35 05/27/17 04:36 98.9 05/27/17 04:00 60 05/27/17 04:00 98.9 61 17 146/71 100 Mechanical Ventilator 35 05/27/17 04:00 35 05/27/17 02:35 72 20 35 05/27/17 00:47 75 144/69 05/27/17 00:30 79 19 35 05/27/17 00:00 62 05/27/17 00:00 98.5 60 18 149/71 100 Mechanical Ventilator 35 05/27/17 00:00 35 05/26/17 22:36 75 21 35 05/26/17 20:30 78 22 35 05/26/17 20:00 98.8 61 19 140/69 100 Mechanical Ventilator 35 05/26/17 20:00 35 05/26/17 19:56 60 05/26/17 19:08 62 18 35 05/26/17 17:15 62 136/61 05/26/17 16:35 62 16 35 05/26/17 16:00 58 05/26/17 16:00 98.2 60 18 136/61 99 Mechanical Ventilator 35 05/26/17 14:48 59 18 35 05/26/17 13:10 35 05/26/17 12:40 60 141/66 05/26/17 12:36 59 18 35 05/26/17 12:00 98.2 60 18 141/66 100 Mechanical Ventilator 35 05/26/17 12:00 35 05/26/17 11:45 59 Intake and Output 05/26/17 05/27/17 19:00 07:00 Intake Total 1655.000 ml 1305.000 ml Output Total 2400 ml 1400 ml Balance -745.000 ml -95.000 ml Intake Free Water 200 ml IV Total 935.000 ml 505.000 ml Tube Feeding 540 ml 540 ml Other 180 ml 60 ml Output Urine Total 2400 ml 1400 ml Laboratory Tests 05/27/17 04:00: White Blood Count 5.6, Red Blood Count 2.83L, Hemoglobin 8.6L, Hematocrit 26.8L , Mean Corpuscular Volume 95, Mean Corpuscular Hemoglobin 30.3, Mean Corpuscular Hemoglobin Concent 32.0, Red Cell Distribution Width 17.8H, Platelet Count 391, Mean Platelet Volume 5.0L, Neutrophils (%) (Auto) 26.9L, Lymphocytes (%) (Auto) 48.1H, Monocytes (%) (Auto) 13.8H, Eosinophils (%) (Auto ) 9.8H, Basophils (%) (Auto) 1.3, Sodium Level 142, Potassium Level 3.6, Chloride Level 110H, Carbon Dioxide Level 24, Anion Gap 8, Blood Urea Nitrogen 3L, Creatinine 0.4L, Estimat Glomerular Filtration Rate , Glucose Level 78, Calcium Level 8.4L, Phosphorus Level 3.2, Magnesium Level 1.9, Total Bilirubin 0.3, Aspartate Amino Transf (AST/SGOT) 15, Alanine Aminotransferase (ALT/SGPT) < 6L, Alkaline Phosphatase 67, Pro-B-Type Natriuretic Peptide 1495H, Total Protein 6.0L, Albumin 1.8L, Globulin 4.2, Albumin/Globulin Ratio 0.4L Height (Feet): 5 Height (Inches): 4.00 Weight (Pounds): 180 General Appearance: no apparent distress Respiratory/Chest: decreased breath sounds Abdomen: soft Objective no other changes ALYSON FLANAGAN May 27, 2017 10:43
[2017-05-27 12:00] VITALS: BP 137/50
--- NOTE | 2017-05-27 13:03 | General Progress Note ---
Assessment/Plan Problem List: (1) SVT (supraventricular tachycardia) ICD Codes: I47.1 - SVT (supraventricular tachycardia) SNOMED: 9724231 (2) Septic shock ICD Codes: A41.9 - Sepsis, unspecified organism; R65.21 - Severe sepsis with septic shock SNOMED: 67900465 (3) Acute respiratory failure with hypoxia and hypercapnia ICD Codes: J96.01 - Acute respiratory failure with hypoxia; J96.02 - Acute respiratory failure with hypercapnia SNOMED: 32849744, 01848522, 004972922 (4) Aspiration pneumonia ICD Codes: J69.0 - Pneumonitis due to inhalation of food and vomit SNOMED: 266699052 Qualifiers: Qualified Codes: J69.0 - Pneumonitis due to inhalation of food and vomit (5) Toxic metabolic encephalopathy ICD Codes: G92 - Toxic encephalopathy SNOMED: 948683597 (6) JUJU (acute kidney injury) ICD Codes: N17.9 - Acute kidney failure, unspecified SNOMED: 74476034 (7) Hyponatremia ICD Codes: E87.1 - Hyponatremia SNOMED: 88638796 (8) Hyperkalemia ICD Codes: E87.5 - Hyperkalemia SNOMED: 52780981 (9) Seizure disorder ICD Codes: G40.909 - Epilepsy, unspecified, not intractable, without status epilepticus SNOMED: 434046194 (10) DVT/PE (11) Dementia ICD Codes: F03.90 - Dementia SNOMED: 27009312 (12) S/P percutaneous endoscopic gastrostomy (PEG) tube placement ICD Codes: Z93.1 - Gastrostomy status SNOMED: 722507003 (13) Hypercalcemia ICD Codes: E83.52 - Hypercalcemia SNOMED: 64361803 (14) Hypophosphatemia ICD Codes: E83.39 - Other disorders of phosphorus metabolism SNOMED: 5291631 (15) Hypomagnesemia ICD Codes: E83.42 - Hypomagnesemia SNOMED: 747846288 (16) Hypokalemia ICD Codes: E87.6 - Hypokalemia SNOMED: 67183836 (17) Status post tracheostomy ICD Codes: Z93.0 - Tracheostomy status SNOMED: 19357118, 938133091 (18) S/P percutaneous endoscopic gastrostomy (PEG) tube placement ICD Codes: Z93.1 - Gastrostomy status SNOMED: 338573021 (19) Multiple pressure ulcers Assessment & Plan: #1 Right big toe dry scab #2 Right 1st anterior toe DTI pressure ulcer. Skin still intact #3 Left 2nd anterior toe DTI pressure ulcer. Skin still intact #4 Left 3rd anterior toe DTI pressure ulcer. Skin still intact #5 Left 4th anterior toe DTI pressure ulcer. Skin still intact #6 Left 5th anterior toe DTI pressure ulcer. Skin still intact #7 Sacrococcygeal extending to left buttock unstageable pressure ulcer. Revealed as stage III with good granulating tissue. Good progress noted. will cont same treatment order. #8 Left lateral malleolus DTI pressure ulcer. Revealed as unstageable pressure ulcer. got significantly smaller in size. will change treatment to Santyl ointment and cont f/u with this pt #9 Left upper buttock area unstageable pressure ulcer. Revealed as stage II pressure ulcer. Good progress noted. Will cont with Triad cream application. #10 Left lower back unstageable pressure ulcer. Revealing as stage III as this time. will f/u with prognosis of the stage #11 Right buttock scattered stage II pressure ulcer.Good progress noted. Resolving at this time #12 IAD on perineal area extending up to mid back, left and right lower posterior thigh. Good progress noted. Resolving at this time #13 Left elbow unstageable pressure ulcer with black eschar adhered to wound bed. Good progress noted. will cont with same treatment #14 Right elbow DTI pressure ulcer. skin still intact #15 Left ischial tuberosity stage II pressure ulcer. Good progress noted. will cont same wound care order #16 Right ischial tuberosity stage II pressure ulcer.Good progress noted. will cont same wound care order #17 Right posterior knee necrotic open wound. Etiology unknown. Good progress noted. Dr Dykes saw pt and recommended to cont with Santyl ointment #18 Right heel DTI pressure ulcer. Skin still intact #19 Left heel DTI pressure ulcer. Skin still intact #20 Abdominal fold, left and right armpit lady rashes. good progress noted will cont same wound treatment #21 Left lateral lower leg DTI pressure ulcer.Skin still intact Status: stable Assessment/Plan Pulm consulted s/p tracheostomy on 05/21/17 Cont to wean as tolerated Daily SBTs Now off pressors Cardiology consulted given SVT Digoxin and Diltiazem added ID consulted Cont broad-spectrum abx: vanco, meropenem + flagyl x 3 more days per ID s/p flagyl (C. diff neg) F/u cultures Trend CBC Trend ABG Monitor CXR Renal consulted s/p IVFs Replete lytes Trend BMP Cont tube feeds via PEG Cont home meds including Depakote Eliquis on hold Pain control, supportive care, bowel regimen DC planning to subacute SNF likely on Sunday DVT ppx: SCDs, HSQ GI ppx: PPI Dispo: pending placement to sub-acute SNF for continued weaning. DC on hold pending correction of electrolytes, IV abx per ID and stabilization on vent FULL CODE per discussion w/ daughter Plan outlined above discussed with patient/family, RN, SW/CM, pulm, cardiology, ID regarding mgmt and dispo D/w CM re d/c planning to subacute vs LTAC D/w pulm re weaning D/w ID re abx D/w daughter re dispo to SNF Time of note may not reflect time of encounter Subjective Date patient seen: May 27, 2017 Time patient seen: 13:03 ROS Limited/Unobtainable: Yes Allergies: Coded Allergies: NO KNOWN DRUG ALLERGIES (Unverified Allergy, Unknown, 07/29/14) Subjective No acute o/n events s/p tracheostomy POD#6 Doing well on SIMV but intermittently with tachypnea DC on hold pending correction of electrolytes, IV abx per ID and stabilization on vent More awake, alert, following commands Denies pain, SOB ROS limited as pt w/ dementia Objective Last 24 Hour Vital Signs Date Time Temp Pulse Resp B/P (MAP) Pulse Ox O2 Delivery O2 Flow Rate FiO2 05/27/17 12:53 62 137/50 05/27/17 12:42 62 18 35 05/27/17 12:00 98.1 75 23 137/50 98 Mechanical Ventilator 35 05/27/17 12:00 35 05/27/17 10:30 65 18 35 05/27/17 09:00 57 05/27/17 08:36 61 20 35 05/27/17 08:00 35 05/27/17 07:56 98.6 73 18 147/111 100 Mechanical Ventilator 35 05/27/17 07:40 67 1/28/18 06:42 54 18 35 05/27/17 05:17 63 146/71 05/27/17 05:03 63 18 35 05/27/17 04:36 98.9 05/27/17 04:00 60 05/27/17 04:00 98.9 61 17 146/71 100 Mechanical Ventilator 35 05/27/17 04:00 35 05/27/17 02:35 72 20 35 05/27/17 00:47 75 144/69 05/27/17 00:30 79 19 35 05/27/17 00:00 62 05/27/17 00:00 98.5 60 18 149/71 100 Mechanical Ventilator 35 05/27/17 00:00 35 05/26/17 22:36 75 21 35 05/26/17 20:30 78 22 35 05/26/17 20:00 98.8 61 19 140/69 100 Mechanical Ventilator 35 05/26/17 20:00 35 05/26/17 19:56 60 05/26/17 19:08 62 18 35 05/26/17 17:15 62 136/61 05/26/17 16:35 62 16 35 05/26/17 16:00 58 05/26/17 16:00 98.2 60 18 136/61 99 Mechanical Ventilator 35 05/26/17 14:48 59 18 35 05/26/17 13:10 35 Intake and Output 05/26/17 05/27/17 19:00 07:00 Intake Total 1655.000 ml 1305.000 ml Output Total 2400 ml 1400 ml Balance -745.000 ml -95.000 ml Intake Free Water 200 ml IV Total 935.000 ml 505.000 ml Tube Feeding 540 ml 540 ml Other 180 ml 60 ml Output Urine Total 2400 ml 1400 ml Laboratory Tests 05/27/17 04:00: White Blood Count 5.6, Red Blood Count 2.83L, Hemoglobin 8.6L, Hematocrit 26.8L , Mean Corpuscular Volume 95, Mean Corpuscular Hemoglobin 30.3, Mean Corpuscular Hemoglobin Concent 32.0, Red Cell Distribution Width 17.8H, Platelet Count 391, Mean Platelet Volume 5.0L, Neutrophils (%) (Auto) 26.9L, Lymphocytes (%) (Auto) 48.1H, Monocytes (%) (Auto) 13.8H, Eosinophils (%) (Auto ) 9.8H, Basophils (%) (Auto) 1.3, Sodium Level 142, Potassium Level 3.6, Chloride Level 110H, Carbon Dioxide Level 24, Anion Gap 8, Blood Urea Nitrogen 3L, Creatinine 0.4L, Estimat Glomerular Filtration Rate , Glucose Level 78, Calcium Level 8.4L, Phosphorus Level 3.2, Magnesium Level 1.9, Total Bilirubin 0.3, Aspartate Amino Transf (AST/SGOT) 15, Alanine Aminotransferase (ALT/SGPT) < 6L, Alkaline Phosphatase 67, Pro-B-Type Natriuretic Peptide 1495H, Total Protein 6.0L, Albumin 1.8L, Globulin 4.2, Albumin/Globulin Ratio 0.4L Height (Feet): 5 Height (Inches): 4.00 Weight (Pounds): 180 Objective General: awake, alert, follows simple commands Head: normocephalic, without obvious abnormality, atraumatic Neck: +trach c/d/i Eyes: conjunctivae/corneas clear. PERRL, EOM's intact Throat: lips, mucosa, and tongue normal. MMM Neck: supple, symmetrical, trachea midline, and no JVD. +Trach c/d/i Lungs: +rhonchi b/l Heart: regular rate and rhythm, S1, S2 normal, no murmur, click, rub or gallop Abdomen: soft, non-tender, non-distended, bowel sounds normal; +PEG c/d/i Extremities: extremities normal, atraumatic, no cyanosis, +BLE edema Pulses: 2+ and symmetric Skin: skin color, texture, turgor normal; no rashes or lesions Neurologic: moving all extremities Prachi Mejia M.D. May 27, 2017 13:03
--- NOTE | 2017-05-27 15:21 | Cardiology Progress Note ---
Assessment/Plan Assessment/Plan 1. 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 Continue Cardizem and digoxin . 2. Respiratory failure, on the ventilator, S/P Tracheostomy. 3. Status post septic shock. 4. Toxic encephalopathy. 5. Acute renal failure that has resolved. 6. Seizure disorder. 7. Deep venous thrombosis and pulmonary embolism. 8. Dementia. 9. Status post PEG afebrile bp is better no furthe rsvt on tele vent support hgb stable seen for dt dev Subjective ROS Limited/Unobtainable: Yes Objective Last 24 Hour Vital Signs Date Time Temp Pulse Resp B/P (MAP) Pulse Ox O2 Delivery O2 Flow Rate FiO2 05/27/17 14:30 64 18 35 05/27/17 12:53 62 137/50 05/27/17 12:42 62 18 35 05/27/17 12:00 98.1 75 23 137/50 98 Mechanical Ventilator 35 05/27/17 12:00 35 05/27/17 11:42 74 05/27/17 10:30 65 18 35 05/27/17 09:00 57 05/27/17 08:36 61 20 35 05/27/17 08:00 35 05/27/17 07:56 98.6 73 18 147/111 100 Mechanical Ventilator 35 05/27/17 07:40 67 05/27/17 06:42 54 18 35 05/27/17 05:17 63 146/71 05/27/17 05:03 63 18 35 05/27/17 04:36 98.9 05/27/17 04:00 60 05/27/17 04:00 98.9 61 17 146/71 100 Mechanical Ventilator 35 05/27/17 04:00 35 05/27/17 02:35 72 20 35 05/27/17 00:47 75 144/69 05/27/17 00:30 79 19 35 05/27/17 00:00 62 05/27/17 00:00 98.5 60 18 149/71 100 Mechanical Ventilator 35 05/27/17 00:00 35 05/26/17 22:36 75 21 35 05/26/17 20:30 78 22 35 05/26/17 20:00 98.8 61 19 140/69 100 Mechanical Ventilator 35 05/26/17 20:00 35 05/26/17 19:56 60 05/26/17 19:08 62 18 35 05/26/17 17:15 62 136/61 05/26/17 16:35 62 16 35 05/26/17 16:00 58 05/26/17 16:00 98.2 60 18 136/61 99 Mechanical Ventilator 35 General Appearance: no apparent distress, on vent, patient on isolation Neck: supple Cardiovascular: regular rhythm Respiratory/Chest: lungs clear Abdomen: non tender, soft Extremities: no swelling Intake and Output 05/26/17 05/27/17 19:00 07:00 Intake Total 1655.000 ml 1305.000 ml Output Total 2400 ml 1400 ml Balance -745.000 ml -95.000 ml Intake Free Water 200 ml IV Total 935.000 ml 505.000 ml Tube Feeding 540 ml 540 ml Other 180 ml 60 ml Output Urine Total 2400 ml 1400 ml Laboratory Tests Test 05/27/17 04:00 White Blood Count 5.6 K/UL (4.8-10.8) Red Blood Count 2.83 M/UL (4.20-5.40) L Hemoglobin 8.6 G/DL (12.0-16.0) L Hematocrit 26.8 % (37.0-47.0) L Mean Corpuscular Volume 95 FL (80-99) Mean Corpuscular Hemoglobin 30.3 PG (27.0-31.0) Mean Corpuscular Hemoglobin Concent 32.0 G/DL (32.0-36.0) Red Cell Distribution Width 17.8 % (11.6-14.8) H Platelet Count 391 K/UL (150-450) Mean Platelet Volume 5.0 FL (6.5-10.1) L Neutrophils (%) (Auto) 26.9 % (45.0-75.0) L Lymphocytes (%) (Auto) 48.1 % (20.0-45.0) H Monocytes (%) (Auto) 13.8 % (1.0-10.0) H Eosinophils (%) (Auto) 9.8 % (0.0-3.0) H Basophils (%) (Auto) 1.3 % (0.0-2.0) Sodium Level 142 MMOL/L (136-145) Potassium Level 3.6 MMOL/L (3.5-5.1) Chloride Level 110 MMOL/L (98-107) H Carbon Dioxide Level 24 MMOL/L (21-32) Anion Gap 8 mmol/L (5-15) Blood Urea Nitrogen 3 mg/dL (7-18) L Creatinine 0.4 MG/DL (0.55-1.30) L Estimat Glomerular Filtration Rate mL/min (>60) Glucose Level 78 MG/DL (74-106) Calcium Level 8.4 MG/DL (8.5-10.1) L Phosphorus Level 3.2 MG/DL (2.5-4.9) Magnesium Level 1.9 MG/DL (1.8-2.4) Total Bilirubin 0.3 MG/DL (0.2-1.0) Aspartate Amino Transf (AST/SGOT) 15 U/L (15-37) Alanine Aminotransferase (ALT/SGPT) < 6 U/L (12-78) L Alkaline Phosphatase 67 U/L (46-116) Pro-B-Type Natriuretic Peptide 1495 pg/mL (0-125) H Total Protein 6.0 G/DL (6.4-8.2) L Albumin 1.8 G/DL (3.4-5.0) L Globulin 4.2 g/dL Albumin/Globulin Ratio 0.4 (1.0-2.7) L MAGDALENO GALO May 27, 2017 15:20
[2017-05-27 16:00] VITALS: BP 109/68
[2017-05-27 20:00] VITALS: BP 128/52
[2017-05-27] MEDS: Dyna-Hex 2% Top Sol 2oz TOPIC SCH (20:14)
[2017-05-27] MEDS: Fluconazole 100mg tab GT SCH (20:14)
[2017-05-28] VITALS: BP 148/71
[2017-05-28 04:00] VITALS: BP 145/60
[2017-05-28 04:20] LABS: BASOPHILS % (AUTO) 1.6 % (0.0-2.0); EOSINOPHILS % (AUTO) 8.9 % (0.0-3.0); HEMATOCRIT 26.8 % (37.0-47.0); HEMOGLOBIN 8.5 G/DL (12.0-16.0); LYMPHOCYTES % (AUTO) 49.5 % (20.0-45.0); MEAN CORPUSCULAR VOLUME 94 FL (80-99); MONOCYTES % (AUTO) 10.6 % (1.0-10.0); NEUTROPHILS % (AUTO) 29.4 % (45.0-75.0); PLATELET COUNT 377 K/UL (150-450); RED BLOOD COUNT 2.86 M/UL (4.20-5.40); RED CELL DISTRIBUTION WIDTH 17.2 % (11.6-14.8); WHITE BLOOD COUNT 6.2 K/UL (4.8-10.8)
[2017-05-28 04:31] LABS: INR 1.1 (0.9-1.1)
[2017-05-28 04:54] LABS: ALANINE AMINOTRANSFERASE < 6 U/L (12-78); ALBUMIN 1.7 G/DL (3.4-5.0); ALBUMIN/GLOBULIN RATIO 0.4 (1.0-2.7); ALKALINE PHOSPHATASE 63 U/L (46-116); ANION GAP 6 mmol/L (5-15); ASPARTATE AMINO TRANSFERASE 11 U/L (15-37); BILIRUBIN,TOTAL 0.3 MG/DL (0.2-1.0); BLOOD UREA NITROGEN 4 mg/dL (7-18); CALCIUM 8.1 MG/DL (8.5-10.1); CARBON DIOXIDE 27 MMOL/L (21-32); CHLORIDE 110 MMOL/L (98-107); CREATININE 0.3 MG/DL (0.55-1.30); PHOSPHORUS 2.4 MG/DL (2.5-4.9); POTASSIUM 3.2 MMOL/L (3.5-5.1); SODIUM 143 MMOL/L (136-145)
[2017-05-28] MEDS: dilTIAZem HCl 30mg tab ORAL SCH ×3 (05:52→17:26)
[2017-05-28 08:00] VITALS: BP 140/63
[2017-05-28] MEDS: Vitamin A&D Oint 2oz Tube TOPIC SCH ×2 (08:32→20:58)
[2017-05-28] MEDS: Vancomycin 750mg/NS 250ml 250 ML IVPB SCH ×2 (08:32→20:46)
[2017-05-28] MEDS: Phospha 250 Neutral tab NG SCH ×3 (09:38→17:26)
[2017-05-28] MEDS: Heparin 5000 units/ml inj SUBQ SCH ×2 (09:39→20:57)
[2017-05-28] MEDS: Docusate 100mg/10ml Liq ORAL SCH ×2 (09:39→20:46)
--- NOTE | 2017-05-28 10:24 | Cardiac Electrophysiology PN ---
Assessment/Plan Assessment/Plan 1. 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 Continue Cardizem 30 q 6hr and digoxin . 2. Respiratory failure, on the ventilator, S/P Tracheostomy. 3. Status post septic shock. 4. Toxic encephalopathy. 5. Hypokalemia, Replace 6. Seizure disorder. 7. Deep venous thrombosis and pulmonary embolism. 8. Dementia. 9. Status post PEG DW RN DC to [facility] today pending Subjective Subjective On vent via tracheostomy on CYNDEE. Awaiting placement today. No arrhythmias on tele. Objective Last 24 Hour Vital Signs Date Time Temp Pulse Resp B/P (MAP) Pulse Ox O2 Delivery O2 Flow Rate FiO2 05/28/17 09:38 66 05/28/17 09:23 66 18 35 05/28/17 08:00 35 05/28/17 08:00 98.4 78 24 140/63 98 Mechanical Ventilator 35 05/28/17 07:33 67 05/28/17 06:47 63 18 35 05/28/17 05:52 67 143/60 05/28/17 05:05 66 18 35 05/28/17 04:00 61 05/28/17 04:00 98.1 64 18 145/60 99 Mechanical Ventilator 35 05/28/17 04:00 35 05/28/17 03:20 62 18 35 05/28/17 01:01 70 18 35 05/28/17 00:00 98.0 69 18 148/71 98 Mechanical Ventilator 35 05/28/17 00:00 64 05/27/17 23:44 70 148/71 05/27/17 23:12 69 18 35 05/27/17 21:20 70 18 35 05/27/17 20:00 98.0 70 18 128/52 98 Mechanical Ventilator 35 05/27/17 20:00 72 05/27/17 20:00 35 05/27/17 19:35 72 19 35 05/27/17 17:19 59 109/68 05/27/17 16:55 59 18 35 05/27/17 16:00 35 05/27/17 16:00 66 05/27/17 16:00 98.1 93 18 109/68 93 Mechanical Ventilator 35 05/27/17 14:30 64 18 35 05/27/17 12:53 62 137/50 05/27/17 12:42 62 18 35 05/27/17 12:00 98.1 75 23 137/50 98 Mechanical Ventilator 35 05/27/17 12:00 35 05/27/17 11:42 74 05/27/17 10:30 65 18 35 Intake and Output 05/27/17 05/28/17 19:00 07:00 Intake Total 1070.000 ml 1205.0 ml Output Total 1400 ml 650 ml Balance -330.000 ml 555.0 ml Intake Free Water 100 ml IV Total 350.000 ml 505.0 ml Tube Feeding 540 ml 540 ml Other 180 ml 60 ml Output Urine Total 1400 ml 650 ml # Bowel Movements 1 Laboratory Tests Test 05/28/17 03:45 White Blood Count 6.2 K/UL (4.8-10.8) Red Blood Count 2.86 M/UL (4.20-5.40) L Hemoglobin 8.5 G/DL (12.0-16.0) L Hematocrit 26.8 % (37.0-47.0) L Mean Corpuscular Volume 94 FL (80-99) Mean Corpuscular Hemoglobin 29.8 PG (27.0-31.0) Mean Corpuscular Hemoglobin Concent 31.9 G/DL (32.0-36.0) L Red Cell Distribution Width 17.2 % (11.6-14.8) H Platelet Count 377 K/UL (150-450) Mean Platelet Volume 5.1 FL (6.5-10.1) L Neutrophils (%) (Auto) 29.4 % (45.0-75.0) L Lymphocytes (%) (Auto) 49.5 % (20.0-45.0) H Monocytes (%) (Auto) 10.6 % (1.0-10.0) H Eosinophils (%) (Auto) 8.9 % (0.0-3.0) H Basophils (%) (Auto) 1.6 % (0.0-2.0) Prothrombin Time 11.3 SEC (9.30-11.50) Prothromb Time International Ratio 1.1 (0.9-1.1) Activated Partial Thromboplast Time 32 SEC (23-33) Sodium Level 143 MMOL/L (136-145) Potassium Level 3.2 MMOL/L (3.5-5.1) L Chloride Level 110 MMOL/L (98-107) H Carbon Dioxide Level 27 MMOL/L (21-32) Anion Gap 6 mmol/L (5-15) Blood Urea Nitrogen 4 mg/dL (7-18) L Creatinine 0.3 MG/DL (0.55-1.30) L Estimat Glomerular Filtration Rate mL/min (>60) Glucose Level 124 MG/DL (74-106) H Calcium Level 8.1 MG/DL (8.5-10.1) L Phosphorus Level 2.4 MG/DL (2.5-4.9) L Magnesium Level 1.6 MG/DL (1.8-2.4) L Total Bilirubin 0.3 MG/DL (0.2-1.0) Aspartate Amino Transf (AST/SGOT) 11 U/L (15-37) L Alanine Aminotransferase (ALT/SGPT) < 6 U/L (12-78) L Alkaline Phosphatase 63 U/L (46-116) Total Protein 5.9 G/DL (6.4-8.2) L Albumin 1.7 G/DL (3.4-5.0) L Globulin 4.2 g/dL Albumin/Globulin Ratio 0.4 (1.0-2.7) L Objective HEAD AND NECK: Tracheostomy intact. no JVD. LUNGS: Coarse rhonchi. CARDIOVASCULAR: Regular S1 and S2 with no gallop. ABDOMEN: Soft and nontender.PEG in place EXTREMITIES: No pitting edema. MALLORY BROWN May 28, 2017 10:24
--- NOTE | 2017-05-28 11:55 | Pulmonology Progress Note ---
Assessment/Plan Problems: (1) Acute respiratory failure with hypoxia and hypercapnia (2) Status post tracheostomy (3) Dementia (4) SVT (supraventricular tachycardia) (5) Sepsis Subjective ROS Limited/Unobtainable: No Constitutional: Reports: no symptoms HEENT: Repors: no symptoms Allergies: Coded Allergies: NO KNOWN DRUG ALLERGIES (Unverified Allergy, Unknown, 07/29/14) Objective Last 24 Hour Vital Signs Date Time Temp Pulse Resp B/P (MAP) Pulse Ox O2 Delivery O2 Flow Rate FiO2 05/28/17 09:38 66 05/28/17 09:23 66 18 35 05/28/17 08:00 35 05/28/17 08:00 98.4 78 24 140/63 98 Mechanical Ventilator 35 05/28/17 07:33 67 05/28/17 06:47 63 18 35 05/28/17 05:52 67 143/60 05/28/17 05:05 66 18 35 05/28/17 04:00 61 05/28/17 04:00 98.1 64 18 145/60 99 Mechanical Ventilator 35 05/28/17 04:00 35 05/28/17 03:20 62 18 35 05/28/17 01:01 70 18 35 05/28/17 00:00 98.0 69 18 148/71 98 Mechanical Ventilator 35 05/28/17 00:00 64 05/27/17 23:44 70 148/71 05/27/17 23:12 69 18 35 05/27/17 21:20 70 18 35 05/27/17 20:00 98.0 70 18 128/52 98 Mechanical Ventilator 35 05/27/17 20:00 72 05/27/17 20:00 35 05/27/17 19:35 72 19 35 05/27/17 17:19 59 109/68 05/27/17 16:55 59 18 35 05/27/17 16:00 35 05/27/17 16:00 66 05/27/17 16:00 98.1 93 18 109/68 93 Mechanical Ventilator 35 05/27/17 14:30 64 18 35 05/27/17 12:53 62 137/50 05/27/17 12:42 62 18 35 05/27/17 12:00 98.1 75 23 137/50 98 Mechanical Ventilator 35 05/27/17 12:00 35 Intake and Output 05/27/17 05/28/17 19:00 07:00 Intake Total 1070.000 ml 1205.0 ml Output Total 1400 ml 650 ml Balance -330.000 ml 555.0 ml Intake Free Water 100 ml IV Total 350.000 ml 505.0 ml Tube Feeding 540 ml 540 ml Other 180 ml 60 ml Output Urine Total 1400 ml 650 ml # Bowel Movements 1 General Appearance: WD/WN HEENT: normocephalic, anicteric Respiratory/Chest: lungs clear, normal breath sounds Cardiovascular: normal peripheral pulses, regular rhythm Abdomen: soft, non tender Genitourinary: normal external genitalia Extremities: no clubbing Laboratory Tests 05/28/17 03:45: White Blood Count 6.2, Red Blood Count 2.86L, Hemoglobin 8.5L, Hematocrit 26.8L , Mean Corpuscular Volume 94, Mean Corpuscular Hemoglobin 29.8, Mean Corpuscular Hemoglobin Concent 31.9L, Red Cell Distribution Width 17.2H, Platelet Count 377, Mean Platelet Volume 5.1L, Neutrophils (%) (Auto) 29.4L, Lymphocytes (%) (Auto) 49.5H, Monocytes (%) (Auto) 10.6H, Eosinophils (%) (Auto ) 8.9H, Basophils (%) (Auto) 1.6, Prothrombin Time 11.3, Prothromb Time International Ratio 1.1, Activated Partial Thromboplast Time 32, Sodium Level 143, Potassium Level 3.2L, Chloride Level 110H, Carbon Dioxide Level 27, Anion Gap 6, Blood Urea Nitrogen 4L, Creatinine 0.3L, Estimat Glomerular Filtration Rate , Glucose Level 124H, Calcium Level 8.1L, Phosphorus Level 2.4L, Magnesium Level 1.6L, Total Bilirubin 0.3, Aspartate Amino Transf (AST/SGOT) 11L, Alanine Aminotransferase (ALT/SGPT) < 6L, Alkaline Phosphatase 63, Total Protein 5.9L, Albumin 1.7L, Globulin 4.2, Albumin/Globulin Ratio 0.4L Current Medications Medications (Trade) Dose Ordered Sig/Jacque Route PRN Reason Start Time Stop Time Status Last Admin Dose Admin Acetaminophen (Tylenol) 650 mg Q4H PRN GT Mild Pain/Temp > 100.5 05/22/17 20:00 06/16/17 11:59 Acetaminophen/ Hydrocodone Bitart (Marina 10/325) 1 tab Q4H PRN GT Severe Pain (Pain Scale 7-10) 05/24/17 20:15 05/31/17 20:14 05/27/17 21:52 Bisacodyl (Dulcolax) 10 mg DAILYPRN PRN RECTAL Constipation 2nd Line agent 05/22/17 20:00 06/21/17 19:59 Chlorhexidine Gluconate (Laly-Hex 2%) 1 applic DAILY@1999 TOPIC 05/22/17 20:00 06/12/17 19:59 05/27/17 20:14 Clotrimazole (Lotrimin) 1 applic EVERY 12 HOURS TOPIC 05/22/17 21:00 06/09/17 14:59 05/28/17 08:32 Collagenase (Santyl) 1 applic DAILY TOPIC 05/23/17 09:00 06/17/17 08:59 05/28/17 08:32 Collagenase (Santyl) 1 applic DAILYPRN PRN TOPIC soilage 05/22/17 20:00 06/21/17 19:59 05/23/17 20:00 Dextrose (Dextrose 50%) STAT PRN IV Hypoglycemia 05/22/17 20:00 06/21/17 19:59 Digoxin (Lanoxin) 0.25 mg DAILY ORAL 05/23/17 09:00 06/17/17 08:59 05/28/17 09:38 Diltiazem HCl (Cardizem) 30 mg EVERY 6 HOURS ORAL 05/23/17 00:00 06/16/17 17:59 05/28/17 05:52 Docusate Sodium (Colace) 100 mg EVERY 12 HOURS ORAL 05/22/17 21:00 06/10/17 09:59 05/27/17 21:31 Fluconazole (Diflucan) 100 mg DAILY@1999 GT 05/26/17 20:00 05/31/17 19:59 05/27/17 20:14 Heparin Sodium (Porcine) (Heparin 5000 units/ml) 5,000 units EVERY 12 HOURS SUBQ 05/22/17 21:00 06/09/17 08:59 05/28/17 09:39 Iron Sucrose 100 mg/Sodium Chloride 55 ml @ 200 mls/hr BEDTIME IV 05/23/17 21:00 06/01/17 21:17 05/27/17 21:31 Magnesium Sulfate 100 ml @ 100 mls/hr Q1H IVPB 05/28/17 11:00 05/28/17 14:59 05/28/17 11:07 Meropenem 1 gm/ Sodium Chloride 100 ml @ 200 mls/hr Q8HR@0630,1430,2230 IVPB 05/26/17 22:30 05/31/17 22:29 05/28/17 06:06 Ondansetron HCl (Zofran) 4 mg Q6H PRN IVP Nausea & Vomiting 05/22/17 19:45 06/09/17 01:44 Phosphorus (Phospha 250 Neutral) 500 mg THREE TIMES A DAY NG 05/23/17 09:00 06/15/17 12:59 05/28/17 09:38 Polyethylene Glycol (Miralax) 17 gm DAILYPRN PRN GT Constipation 05/22/17 20:00 06/21/17 19:59 Potassium Phosphate 30 mm/ Dextrose 285 ml @ 47.5 mls/hr ONCE ONCE IV 05/28/17 15:00 05/28/17 20:59 Vancomycin HCl (Vanco rx to dose) 1 ea DAILYPRN PRN MISC Per rx protocol 05/24/17 18:15 06/23/17 18:14 Vancomycin/Sodium Chloride 250 ml @ 166.667 mls/hr Q12HR IVPB 05/26/17 21:00 05/31/17 20:59 05/28/17 08:32 Vitamin A/Vitamin D (A & D Oint) 1 applic EVERY 12 HOURS TOPIC 05/26/17 21:00 06/25/17 20:59 05/28/17 08:32 Critical Care - Asmt/Plan Problems: (1) Acute respiratory failure with hypoxia and hypercapnia (2) Acute encephalopathy (3) Sepsis (4) Aspiration pneumonia Respiratory: monitor respiratory rate, adjust FIO2 Cardiac: continue to monitor HR/BP Renal: F/U I&O, keep IV fluid Infectious Disease: check cultures Endocrine: check HgA1C, continue sliding scale insulin Hematologic: monitor H/H, transfuse if hgb<8.5 Neurologic: keep patient comfortable Prophylaxis: Protonix, Heparin Notes Reviewed: [employer] Discussed with: nurses, consultants, caseworkerancillary services manager therapy - Asmt/Plan Problems: (1) Acute respiratory failure with hypoxia and hypercapnia (2) Acute encephalopathy (3) Sepsis (4) Aspiration pneumonia DWAYNE CHERY May 28, 2017 11:55
[2017-05-28 12:00] VITALS: BP 145/63
[2017-05-28] MEDS ORDERED: MELATONIN3 MG ORAL (14:33)
[2017-05-28] MEDS ORDERED: Potassium Phosphate 30 MM in D5W 275 ML IV ONE (15:00)
--- NOTE | 2017-05-28 15:06 | Nephrology Progress Note ---
Assessment/Plan Problem List: (1) Acute respiratory failure with hypoxia and hypercapnia Assessment: no trached (2) Septic shock (3) Renal insufficiency (4) Hypercalcemia Assessment Now trached acute renal failure resolving persistant low mag and K and Phos improved ? CKD underlying Acute respiratory failure, Trached septic shock sever Hypercalcemia, corrected HypoAlbuminemia Anemia Dementia Plan Plan: ? DC planning? check Iron panel- IV venofer mag and phos supplement as needed monitor serum Ca 2D echo- Left ventricular ejection fraction estimated to be 65-70%. increase feeding Phos K and Mag supplement as needed hemodynamic support Aredia given 05/10 monitor renal parameters serum cortisol level 12 avoid nephrotoxics per orders Subjective ROS Limited/Unobtainable: No Objective Objective Last 24 Hour Vital Signs Date Time Temp Pulse Resp B/P (MAP) Pulse Ox O2 Delivery O2 Flow Rate FiO2 05/28/17 13:29 65 18 35 05/28/17 12:00 35 05/28/17 12:00 58 140/63 05/28/17 12:00 99.0 75 24 145/63 98 Mechanical Ventilator 35 05/28/17 11:39 62 05/28/17 11:07 61 18 35 05/28/17 09:38 66 05/28/17 09:23 66 18 35 05/28/17 08:00 35 05/28/17 08:00 98.4 78 24 140/63 98 Mechanical Ventilator 35 05/28/17 07:33 67 05/28/17 06:47 63 18 35 05/28/17 05:52 67 143/60 05/28/17 05:05 66 18 35 05/28/17 04:00 61 05/28/17 04:00 98.1 64 18 145/60 99 Mechanical Ventilator 35 05/28/17 04:00 35 05/28/17 03:20 62 18 35 05/28/17 01:01 70 18 35 05/28/17 00:00 98.0 69 18 148/71 98 Mechanical Ventilator 35 05/28/17 00:00 64 05/27/17 23:44 70 148/71 05/27/17 23:12 69 18 35 05/27/17 21:20 70 18 35 05/27/17 20:00 98.0 70 18 128/52 98 Mechanical Ventilator 35 05/27/17 20:00 72 05/27/17 20:00 35 05/27/17 19:35 72 19 35 05/27/17 17:19 59 109/68 05/27/17 16:55 59 18 35 05/27/17 16:00 35 05/27/17 16:00 66 05/27/17 16:00 98.1 93 18 109/68 93 Mechanical Ventilator 35 Intake and Output 05/27/17 05/28/17 19:00 07:00 Intake Total 1070.000 ml 1205.0 ml Output Total 1400 ml 650 ml Balance -330.000 ml 555.0 ml Intake Free Water 100 ml IV Total 350.000 ml 505.0 ml Tube Feeding 540 ml 540 ml Other 180 ml 60 ml Output Urine Total 1400 ml 650 ml # Bowel Movements 1 Laboratory Tests 05/28/17 03:45: White Blood Count 6.2, Red Blood Count 2.86L, Hemoglobin 8.5L, Hematocrit 26.8L , Mean Corpuscular Volume 94, Mean Corpuscular Hemoglobin 29.8, Mean Corpuscular Hemoglobin Concent 31.9L, Red Cell Distribution Width 17.2H, Platelet Count 377, Mean Platelet Volume 5.1L, Neutrophils (%) (Auto) 29.4L, Lymphocytes (%) (Auto) 49.5H, Monocytes (%) (Auto) 10.6H, Eosinophils (%) (Auto ) 8.9H, Basophils (%) (Auto) 1.6, Prothrombin Time 11.3, Prothromb Time International Ratio 1.1, Activated Partial Thromboplast Time 32, Sodium Level 143, Potassium Level 3.2L, Chloride Level 110H, Carbon Dioxide Level 27, Anion Gap 6, Blood Urea Nitrogen 4L, Creatinine 0.3L, Estimat Glomerular Filtration Rate , Glucose Level 124H, Calcium Level 8.1L, Phosphorus Level 2.4L, Magnesium Level 1.6L, Total Bilirubin 0.3, Aspartate Amino Transf (AST/SGOT) 11L, Alanine Aminotransferase (ALT/SGPT) < 6L, Alkaline Phosphatase 63, Total Protein 5.9L, Albumin 1.7L, Globulin 4.2, Albumin/Globulin Ratio 0.4L Height (Feet): 5 Height (Inches): 4.00 Weight (Pounds): 190 General Appearance: no apparent distress Respiratory/Chest: decreased breath sounds Abdomen: soft Objective no other changes ALYSON FLANAGAN 29, 2018 15:06
[2017-05-28 17:00] VITALS: BP 151/62
[2017-05-28 17:26] VITALS: BP 151/62
--- NOTE | 2017-05-28 18:01 | Infectious Diseases Prog Note ---
Assessment/Plan Assessment/Plan ASSESSMENT AND PLAN: 1. - sepsis, shock, acinetobacter pna/pseudomonas pna, ? pseudomonas sacral wound infection, vent, ? c.diff., leukocytosis, fevers, ? fungal rash vs other - chest x-ray stable, leukocytosis resolved, c.diff. negative, fungal uti - s/p trach - meropenem, vancomycin and diflucan for 1 day to complete 10 day course abx - check labs, chest x-ray - no pressors - 05/27 - chest x-ray stable - skin care per protocol, clotrimazole cream 2. respiratory failure, on vent, icu care 3. Acute kidney injury, elevated creatinine. 4. Hypertension. 5. Diabetes. 6. Asthma. 7. Alzheimer's with some dementia. 8. Cerebrovascular accident. 9. Aspiration risk. 10. Anemia. 11. Seizures. 12. Memory loss. 13. Past medical history as noted. 14. No allergy. 15. Social history is negative. 16. Family history noncontributory. 17. Case discussed with RN. 18. MAR was noted. 19. Continue treatment per primary consultants. 20. Skin care protocol. 21. Possible fungal rash. Continue cream. 22. Questionable drug rash. 23. Continue supportive care. 24. Critical condition. 25. Notes were reviewed. Subjective Constitutional: Reports: fatigue, other - + trach and vent, Denies: fever HEENT: Reports: congestion Respiratory: Reports: shortness of breath Gastrointestinal/Abdominal: Denies: nausea, vomiting, diarrhea Neurologic: Denies: headache Psychiatric: Denies: depression Skin: Denies: rash Hematologic: Denies: bleeding Musculoskeletal: Denies: pain Allergies: Coded Allergies: NO KNOWN DRUG ALLERGIES (Unverified Allergy, Unknown, 07/29/14) Objective Vital Signs Last 24 Hour Vital Signs Date Time Temp Pulse Resp B/P (MAP) Pulse Ox O2 Delivery O2 Flow Rate FiO2 05/28/17 17:26 69 151/62 05/28/17 17:00 98.4 69 24 151/62 99 Mechanical Ventilator 35 05/28/17 16:00 35 05/28/17 15:34 61 05/28/17 15:29 62 18 35 05/28/17 13:29 65 18 35 05/28/17 12:00 35 05/28/17 12:00 58 140/63 05/28/17 12:00 99.0 75 24 145/63 98 Mechanical Ventilator 35 05/28/17 11:39 62 05/28/17 11:07 61 18 35 05/28/17 09:38 66 05/28/17 09:23 66 18 35 05/28/17 08:00 35 05/28/17 08:00 98.4 78 24 140/63 98 Mechanical Ventilator 35 05/28/17 07:33 67 05/28/17 06:47 63 18 35 05/28/17 05:52 67 143/60 05/28/17 05:05 66 18 35 05/28/17 04:00 61 05/28/17 04:00 98.1 64 18 145/60 99 Mechanical Ventilator 35 05/28/17 04:00 35 05/28/17 03:20 62 18 35 05/28/17 01:01 70 18 35 05/28/17 00:00 98.0 69 18 148/71 98 Mechanical Ventilator 35 05/28/17 00:00 64 05/27/17 23:44 70 148/71 05/27/17 23:12 69 18 35 05/27/17 21:20 70 18 35 05/27/17 20:00 98.0 70 18 128/52 98 Mechanical Ventilator 35 05/27/17 20:00 72 05/27/17 20:00 35 05/27/17 19:35 72 19 35 Height (Feet): 5 Height (Inches): 4.00 Weight (Pounds): 190 General Appearance: no acute distress, other - on vent, nad HEENT: normocephalic, atraumatic, anicteric, mucous membranes moist, EOMI, no JVD, status post trach Respiratory/Chest: crackles/rales, rhonchi - bilaterally Cardiovascular: normal rate, regular rhythm, no gallop/murmur, no JVD Abdomen: normal bowel sounds, soft, non tender, no organomegaly, non distended Genitourinary: other - no cota Extremities: no cyanosis Skin: no rash Neurologic/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 Heart size and mediastinal contours are stable. Persistent interstitial opacification/ edema and patchy bilateral airspace opacities with small right pleural effusion. Interval development of a small left lateral pleural effusion and increased left base/retrocardiac opacities. No pneumothorax.. Gastrostomy tube partially visualized. Impression: Slight interval worsening of aeration with development of small left pleural effusion and increasing left basilar atelectasis/consolidation. Support lines and tubes unchanged 05/14 - chest x-ray: Impression: Interstitial and patchy bilateral airspace opacities with continued improved aeration of the right base compared to the prior exam. Support lines/tubes unchanged in position. 05/16 - chest x-ray - no change (report noted) 05/18 - chest x-ray - Impression: Interval worsening of aeration with increasing right midlung and left basilar opacities. 05/20 - chest x-ray - Impression: Little change since previous study. Bilateral airspace and interstitial disease remains. Bilateral pleural effusions. 05/22 - chest x-ray - Impression: Interim conversion of endotracheal tube to a tracheostomy. No radiographically evident complication Otherwise stable findings as described 05/24 - chest x-ray - Findings: Bilateral interstitial and airspace opacities persist, unchanged. Bilateral pleural effusions persist. Tubes and lines remain in stable positions Impression: Unchanged, over one day, findings as above. Chest x-ray = 05/27 - Findings: Tracheostomy tube and subclavian line unchanged in position. Heart size and mediastinal contours are stable. Bilateral interstitial and airspace disease is persists. There is unchanged blunting of the bilateral costophrenic sulci. There is no pneumothorax. No acute osseous abnormality is seen. There is evidence of prior kyphoplasty/vertebroplasty. Gastrostomy tube noted. Impression: No significant interval change in interstitial and patchy bilateral airspace disease. Microbiology Date/Time Source Procedure Growth Status 05/17/17 13:00 Blood Blood Culture - Final NO GROWTH AFTER 5 DAYS Complete 05/12/17 14:12 Sputum Gram Stain - Final Complete 05/12/17 14:12 Sputum Culture - Final Acinetobacter Baumanii Pseudomonas Aeruginosa Complete 05/15/17 18:00 Stool Clostridium difficile Toxin Assay - Final Complete 05/17/17 13:00 Indwelling Cath Urine Culture - Final Zaria Albicans Complete 05/10/17 10:00 Sacral Wound Gram Stain - Final Complete 05/10/17 10:00 Wound Culture - Final Pseudomonas Aeruginosa Zaria Albicans Usual Skin Beckie Complete Laboratory Tests Test 05/28/17 03:45 White Blood Count 6.2 K/UL (4.8-10.8) Red Blood Count 2.86 M/UL (4.20-5.40) L Hemoglobin 8.5 G/DL (12.0-16.0) L Hematocrit 26.8 % (37.0-47.0) L Mean Corpuscular Volume 94 FL (80-99) Mean Corpuscular Hemoglobin 29.8 PG (27.0-31.0) Mean Corpuscular Hemoglobin Concent 31.9 G/DL (32.0-36.0) L Red Cell Distribution Width 17.2 % (11.6-14.8) H Platelet Count 377 K/UL (150-450) Mean Platelet Volume 5.1 FL (6.5-10.1) L Neutrophils (%) (Auto) 29.4 % (45.0-75.0) L Lymphocytes (%) (Auto) 49.5 % (20.0-45.0) H Monocytes (%) (Auto) 10.6 % (1.0-10.0) H Eosinophils (%) (Auto) 8.9 % (0.0-3.0) H Basophils (%) (Auto) 1.6 % (0.0-2.0) Prothrombin Time 11.3 SEC (9.30-11.50) Prothromb Time International Ratio 1.1 (0.9-1.1) Activated Partial Thromboplast Time 32 SEC (23-33) Sodium Level 143 MMOL/L (136-145) Potassium Level 3.2 MMOL/L (3.5-5.1) L Chloride Level 110 MMOL/L (98-107) H Carbon Dioxide Level 27 MMOL/L (21-32) Anion Gap 6 mmol/L (5-15) Blood Urea Nitrogen 4 mg/dL (7-18) L Creatinine 0.3 MG/DL (0.55-1.30) L Estimat Glomerular Filtration Rate mL/min (>60) Glucose Level 124 MG/DL (74-106) H Calcium Level 8.1 MG/DL (8.5-10.1) L Phosphorus Level 2.4 MG/DL (2.5-4.9) L Magnesium Level 1.6 MG/DL (1.8-2.4) L Total Bilirubin 0.3 MG/DL (0.2-1.0) Aspartate Amino Transf (AST/SGOT) 11 U/L (15-37) L Alanine Aminotransferase (ALT/SGPT) < 6 U/L (12-78) L Alkaline Phosphatase 63 U/L (46-116) Total Protein 5.9 G/DL (6.4-8.2) L Albumin 1.7 G/DL (3.4-5.0) L Globulin 4.2 g/dL Albumin/Globulin Ratio 0.4 (1.0-2.7) L Current Medications Medications (Trade) Dose Ordered Sig/Jacque Route PRN Reason Start Time Stop Time Status Last Admin Dose Admin Acetaminophen (Tylenol) 650 mg Q4H PRN GT Mild Pain/Temp > 100.5 05/22/17 20:00 06/16/17 11:59 Acetaminophen/ Hydrocodone Bitart ([place] 10/325) 1 tab Q4H PRN GT Severe Pain (Pain Scale 7-10) 05/24/17 20:15 05/31/17 20:14 05/27/17 21:52 Bisacodyl (Dulcolax) 10 mg DAILYPRN PRN RECTAL Constipation 2nd Line agent 05/22/17 20:00 06/21/17 19:59 Chlorhexidine Gluconate (Laly-Hex 2%) 1 applic DAILY@1999 TOPIC 05/22/17 20:00 06/12/17 19:59 05/27/17 20:14 Clotrimazole (Lotrimin) 1 applic EVERY 12 HOURS TOPIC 05/22/17 21:00 06/09/17 14:59 05/28/17 08:32 Collagenase (Santyl) 1 applic DAILY TOPIC 05/23/17 09:00 06/17/17 08:59 05/28/17 08:32 Collagenase (Santyl) 1 applic DAILYPRN PRN TOPIC soilage 05/22/17 20:00 06/21/17 19:59 05/23/17 20:00 Dextrose (Dextrose 50%) STAT PRN IV Hypoglycemia 05/22/17 20:00 06/21/17 19:59 Digoxin (Lanoxin) 0.25 mg DAILY ORAL 05/23/17 09:00 06/17/17 08:59 05/28/17 09:38 Diltiazem HCl (Cardizem) 30 mg EVERY 6 HOURS ORAL 05/23/17 00:00 06/16/17 17:59 05/28/17 17:26 Docusate Sodium (Colace) 100 mg EVERY 12 HOURS ORAL 05/22/17 21:00 06/10/17 09:59 05/27/17 21:31 Fluconazole (Diflucan) 100 mg DAILY@2000 GT 05/26/17 20:00 05/31/17 19:59 05/27/17 20:14 Heparin Sodium (Porcine) (Heparin 5000 units/ml) 5,000 units EVERY 12 HOURS SUBQ 05/22/17 21:00 06/09/17 08:59 05/28/17 09:39 Iron Sucrose 100 mg/Sodium Chloride 55 ml @ 200 mls/hr BEDTIME IV 05/23/17 21:00 06/01/17 21:17 05/27/17 21:31 Meropenem 1 gm/ Sodium Chloride 100 ml @ 200 mls/hr Q8HR@0630,1430,2230 IVPB 05/26/17 22:30 05/31/17 22:29 05/28/17 14:45 Ondansetron HCl (Zofran) 4 mg Q6H PRN IVP Nausea & Vomiting 05/22/17 19:45 06/09/17 01:44 Phosphorus (Phospha 250 Neutral) 500 mg THREE TIMES A DAY NG 05/23/17 09:00 06/15/17 12:59 05/28/17 17:26 Polyethylene Glycol (Miralax) 17 gm DAILYPRN PRN GT Constipation 05/22/17 20:00 06/21/17 19:59 Potassium Phosphate 30 mm/ Dextrose 285 ml @ 47.5 mls/hr ONCE ONCE IV 05/28/17 15:00 05/28/17 20:59 05/28/17 15:07 Vancomycin HCl (Vanco rx to dose) 1 ea DAILYPRN PRN MISC Per rx protocol 05/24/17 18:15 06/23/17 18:14 Vancomycin/Sodium Chloride 250 ml @ 166.667 mls/hr Q12HR IVPB 05/26/17 21:00 05/31/17 20:59 05/28/17 08:32 Vitamin A/Vitamin D (A & D Oint) 1 applic EVERY 12 HOURS TOPIC 05/26/17 21:00 06/25/17 20:59 05/28/17 08:32 TIERA PRADO May 28, 2017 18:01
[2017-05-28] MEDS: Fluconazole 100mg tab GT SCH (20:56)
[2017-05-28] MEDS: Dyna-Hex 2% Top Sol 2oz TOPIC SCH (20:56)
--- NOTE | 2017-05-29 07:33 | Discharge Summary ---
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 Pt w/ recent admission n 03/2017 for similar symptoms requirig intubation, PEG placement and pt then sucessfully extubated. She was discharged home w/ hospice. Daughter has decided to take pt off hospice. Per EMS patient was found altered. Per daughter, she was unable to arouse patient so paramedics were called. Daughter thinks pt was overfed w/ tube feedings and likely aspirated. Pt found to be altered with acute respiratory acidosis requiring intubation. She was also hypotensive and w/ leukocytosis to 29K concerning for sepsis, started on IV abx and IVFs. Pt admitted to ICU, intubated, sedated on IV abx, pressors. Consultations Cardiology, Pulmonology, Infectious disease, Surgery, Nephrology Procedures Tracheostomy on 05/21/17 Hospital Course Pt was admitted to ICU given acute respiratory failure requiring intubation, as well as septic shock requiring pressors. Pt was continued on broad-spectrum antibiotics per ID. Pressors slowly weaned off. Multiple attempts at weaning from ventilator failed. Pt's daughter was given options of palliative extubation vs tracheostomy. After multiple discussions, she wished to pursue tracheostomy. Pt underwent tracheostomy on 05/21/17. She tolerated procedure well and afterwards was noted to be more comfortable, following commands. She tolerated SIMV prior to to d/c. Pt was w/ JUJU which improved with IVFs and treatment for septic shock. Pt required electrolyte repletion almost daily per nephrology. She completed course of antibiotics while in hospital. Pt was then discharged to subacute facility for continued weaning from ventilator. Discharge physical exam: General: awake, alert, follows simple commands Head: normocephalic, without obvious abnormality, atraumatic Neck: +trach c/d/i Eyes: conjunctivae/corneas clear. PERRL, EOM's intact Throat: lips, mucosa, and tongue normal. MMM Neck: supple, symmetrical, trachea midline, and no JVD. +Trach c/d/i Lungs: +rhonchi b/l Heart: regular rate and rhythm, S1, S2 normal, no murmur, click, rub or gallop Abdomen: soft, non-tender, non-distended, bowel sounds normal; +PEG c/d/i Extremities: extremities normal, atraumatic, no cyanosis, +BLE edema Pulses: 2+ and symmetric Skin: skin color, texture, turgor normal; no rashes or lesions Neurologic: moving all extremities Discharge diagnoses: (1) SVT (supraventricular tachycardia) ICD Codes: I47.1 - SVT (supraventricular tachycardia) SNOMED: 3720264 (2) Septic shock ICD Codes: A41.9 - Sepsis, unspecified organism; R65.21 - Severe sepsis with septic shock SNOMED: 92224649 (3) Acute respiratory failure with hypoxia and hypercapnia ICD Codes: J96.01 - Acute respiratory failure with hypoxia; J96.02 - Acute respiratory failure with hypercapnia SNOMED: 37826514, 38553603, 529572030 (4) Aspiration pneumonia ICD Codes: J69.0 - Pneumonitis due to inhalation of food and vomit SNOMED: 030275610 Qualifiers: Qualified Codes: J69.0 - Pneumonitis due to inhalation of food and vomit (5) Toxic metabolic encephalopathy ICD Codes: G92 - Toxic encephalopathy SNOMED: 772374686 (6) JUJU (acute kidney injury) ICD Codes: N17.9 - Acute kidney failure, unspecified SNOMED: 83241739 (7) Hyponatremia ICD Codes: E87.1 - Hyponatremia SNOMED: 82776535 (8) Hyperkalemia ICD Codes: E87.5 - Hyperkalemia SNOMED: 02152806 (9) Seizure disorder ICD Codes: G40.909 - Epilepsy, unspecified, not intractable, without status epilepticus SNOMED: 867265688 (10) DVT/PE (11) Dementia ICD Codes: F03.90 - Dementia SNOMED: 13581810 (12) S/P percutaneous endoscopic gastrostomy (PEG) tube placement ICD Codes: Z93.1 - Gastrostomy status SNOMED: 666074692 (13) Hypercalcemia ICD Codes: E83.52 - Hypercalcemia SNOMED: 16791082 (14) Hypophosphatemia ICD Codes: E83.39 - Other disorders of phosphorus metabolism SNOMED: 2567651 (15) Hypomagnesemia ICD Codes: E83.42 - Hypomagnesemia SNOMED: 776529725 (16) Hypokalemia ICD Codes: E87.6 - Hypokalemia SNOMED: 02867032 (17) Status post tracheostomy ICD Codes: Z93.0 - Tracheostomy status SNOMED: 17814231, 894315742 (18) S/P percutaneous endoscopic gastrostomy (PEG) tube placement ICD Codes: Z93.1 - Gastrostomy status SNOMED: 677310964 (19) Multiple pressure ulcers Assessment & Plan: #1 Right big toe dry scab #2 Right 1st anterior toe DTI pressure ulcer. Skin still intact #3 Left 2nd anterior toe DTI pressure ulcer. Skin still intact #4 Left 3rd anterior toe DTI pressure ulcer. Skin still intact #5 Left 4th anterior toe DTI pressure ulcer. Skin still intact #6 Left 5th anterior toe DTI pressure ulcer. Skin still intact #7 Sacrococcygeal extending to left buttock unstageable pressure ulcer. Revealed as stage III with good granulating tissue. Good progress noted. will cont same treatment order. #8 Left lateral malleolus DTI pressure ulcer. Revealed as unstageable pressure ulcer. got significantly smaller in size. will change treatment to Santyl ointment and cont f/u with this pt #9 Left upper buttock area unstageable pressure ulcer. Revealed as stage II pressure ulcer. Good progress noted. Will cont with Triad cream application. #10 Left lower back unstageable pressure ulcer. Revealing as stage III as this time. will f/u with prognosis of the stage #11 Right buttock scattered stage II pressure ulcer.Good progress noted. Resolving at this time #12 IAD on perineal area extending up to mid back, left and right lower posterior thigh. Good progress noted. Resolving at this time #13 Left elbow unstageable pressure ulcer with black eschar adhered to wound bed. Good progress noted. will cont with same treatment #14 Right elbow DTI pressure ulcer. skin still intact #15 Left ischial tuberosity stage II pressure ulcer. Good progress noted. will cont same wound care order #16 Right ischial tuberosity stage II pressure ulcer.Good progress noted. will cont same wound care order #17 Right posterior knee necrotic open wound. Etiology unknown. Good progress noted. Dr Dykes saw pt and recommended to cont with Santyl ointment #18 Right heel DTI pressure ulcer. Skin still intact #19 Left heel DTI pressure ulcer. Skin still intact #20 Abdominal fold, left and right armpit lady rashes. good progress noted will cont same wound treatment #21 Left lateral lower leg DTI pressure ulcer.Skin still intact Discharge Medications New Medications: Melatonin (Melatonin) 3 Mg Tablet 3 MG ORAL QPM PRN for 90 Days, #90 TAB 3 Refills Digoxin* (Lanoxin*) 250 Mcg Tablet 0.25 MG ORAL DAILY for 30 Days, TAB Diltiazem HCl (Diltiazem 12Hr ER) 60 Mg Cap.er.12h 30 MG ORAL EVERY 6 HOURS for 30 Days, CAP Continued Medications: Acetaminophen (Acetaminophen) 650 Mg/20.3 Ml Soln 650 MG ORAL Q6H PRN for Prn Headache/Temp > 101, ML 0 Refills Acidophilus/[place] (Floranex Tablet) 1 Each Tablet 1 EACH PO BID, TAB Apixaban (Eliquis) 5 Mg Tablet 5 MG PO BID, TAB Calcitonin,[place],Synthetic (Calcitonin-[place]) 3.7 Ml [place].pump 3.7 ML NS DAILY Divalproex Sodium* (Depakote*) 250 Mg Tablet.dr 500 MG PO Q12HR, TAB Docusate Sodium* (Docusate Sodium*) 100 Mg Capsule 100 MG ORAL TWICE A DAY, CAP Doxazosin Mesylate* (Cardura*) 1 Mg Tablet 2 MG ORAL DAILY, TAB Ergocalciferol (Vitamin D2)* (Vitamin D*) 50,000 Unit Capsule 47259 UNIT ORAL ONCE A WEEK, CAP Ferrous Sulfate* (Ferrous Sulfate*) 325 Mg Tablet 325 MG ORAL DAILY, #30 TAB 0 Refills Fluvoxamine Maleate (Fluvoxamine Maleate) 50 Mg Tab 50 MG ORAL BID, #10 TAB 0 Refills Hydrocodone Bit/Acetaminophen 10-325* ([place] 10-325*) 1 Each Tablet 1 TAB ORAL, TAB 0 Refills PRN PAIN Levothyroxine Sodium* (Levothyroxine Sodium*) 50 Mcg Tablet 50 MCG ORAL DAILY, TAB Take in the morning on an empty stomach, at least 30 minutes before food. Lidocaine (Lidocaine) 700 Mg Adh..patch 1400 MG TP DAILY, PATCH Melatonin (Melatonin) 1 Mg Tab.subl 1 MG PO BEDTIME PRN for Insomnia, TAB Memantine Hcl* (Namenda*) 10 Mg Tablet 10 MG ORAL TWICE A DAY, TAB Multivitamin With Minerals (Multivitamins With Minerals*) 1 Each Tablet 1 TAB ORAL DAILY, TAB Olanzapine* (Zyprexa*) 10 Mg Tablet 10 MG ORAL DAILY, #30 TAB 0 Refills [place]-3 Fatty Acids/Fish Oil (Fish Oil 1,000 Mg Capsule) 1 Each Capsule 1 CAP ORAL BID, #30 CAP 0 Refills Pantoprazole* (Pantoprazole*) 40 Mg Tablet.dr 40 MG ORAL DAILY, TAB Ranitidine Hcl* (Zantac*) 150 Mg Tablet 150 MG ORAL TWICE A DAY, TAB Simvastatin (Zocor) 20 Mg Tablet 20 MG ORAL BEDTIME, TAB Solifenacin Succinate (Vesicare*) 10 Mg Tablet 10 MG ORAL HS, TAB Discontinued Medications: Amoxicillin/Potassium Clav 875-125* (Augmentin 875-125 Tablet*) 1 Each Tablet 1 TAB ORAL TWICE A DAY for 5 Days, #10 TAB Baclofen* (Baclofen*) 10 Mg Tablet 10 MG ORAL THREE TIMES A DAY, TAB Bisacodyl* (Dulcolax*) 5 Mg Tablet.dr 10 MG RECTAL ONCE, #4 TAB 0 Refills Doxycycline Monohydrate* (Doxycycline Monohydrate*) 100 Mg Capsule 100 MG ORAL Q12H for 5 Days, #10 CAP 0 Refills Rivaroxaban (Xarelto*) 10 Mg Tablet 20 MG ORAL DAILY, #30 TAB 0 Refills Tamsulosin Hcl (Tamsulosin Hcl*) 0.4 Mg Cap.er.24h 0.4 MG ORAL DAILY, CAP Zolpidem Tartrate* (Ambien*) 10 Mg Tablet 10 MG ORAL HS PRN for Insomnia, TAB Discharge Condition Upon Discharge: stable Discharge Disposition Patient was discharged to SNF/Subacute Facility(03) Discharge Diagnoses: Prachi Mejia M.D. May 29, 2017 07:33
== END 2017-05-28 22:30 | DRG 4 ==
LOC: EDBD 18:16 → EDBEDREQ 18:51 → EMR 19:01 → EDBEDREQ 21:17 → EDBEDREQSVC 21:22 → EDBEDREQ 21:22 → EDBEDREQTM 21:22 → EDBEDREQSVC 21:44 → EDBEDREQ 21:44 → ICU 22:52 → EDBEDREQ 05-10 04:33 → 2W 05-22 17:36
PROC: 5A1955Z Respiratory Ventilation, Greater than 96 Consecutive Hours (ICD-10-PCS; principal; 2017-05-09)
PROC: 0BH17EZ Insertion of Endotracheal Airway into Trachea, Via Natural or Artificial Opening (ICD-10-PCS; principal; 2017-05-09)
PROC: 05H633Z Insertion of Infusion Device into Left Subclavian Vein, Percutaneous Approach (ICD-10-PCS; 2017-05-10)
PROC: 0B110F4 Bypass Trachea to Cutaneous with Tracheostomy Device, Open Approach (ICD-10-PCS; 2017-05-21)
DX: A41.9 Sepsis, unspecified organism (principal); J69.0 Pneumonitis due to inhalation of food and vomit; R65.21 Severe sepsis with septic shock; J15.1 Pneumonia due to Pseudomonas; G93.41 Metabolic encephalopathy; N17.9 Acute kidney failure, unspecified; L89.212 Pressure ulcer of right hip, stage 2; L89.312 Pressure ulcer of right buttock, stage 2; J96.02 Acute respiratory failure with hypercapnia; J96.01 Acute respiratory failure with hypoxia; L89.153 Pressure ulcer of sacral region, stage 3; L89.323 Pressure ulcer of left buttock, stage 3; N39.0 Urinary tract infection, site not specified; E87.1 Hypo-osmolality and hyponatremia; I47.1 Supraventricular tachycardia; Z99.11 Dependence on respirator [ventilator] status; E11.9 Type 2 diabetes mellitus without complications; D64.9 Anemia, unspecified; I10 Essential (primary) hypertension; G30.9 Alzheimer's disease, unspecified; F02.80 Dementia in other diseases classified elsewhere, unspecified severity, without behavioral disturbance, psychotic disturbance, mood disturbance, and anxiety; E87.6 Hypokalemia; G40.909 Epilepsy, unspecified, not intractable, without status epilepticus; Z93.1 Gastrostomy status; E83.52 Hypercalcemia; F20.9 Schizophrenia, unspecified; Z86.718 Personal history of other venous thrombosis and embolism; Z79.01 Long term (current) use of anticoagulants; Z86.711 Personal history of pulmonary embolism; Z86.73 Personal history of transient ischemic attack (TIA), and cerebral infarction without residual deficits; J45.909 Unspecified asthma, uncomplicated; F41.9 Anxiety disorder, unspecified; E87.5 Hyperkalemia; I12.9 Hypertensive chronic kidney disease with stage 1 through stage 4 chronic kidney disease, or unspecified chronic kidney disease; N18.9 Chronic kidney disease, unspecified; E88.09 Other disorders of plasma-protein metabolism, not elsewhere classified; R41.3 Other amnesia; L98.499 Non-pressure chronic ulcer of skin of other sites with unspecified severity; R21 Rash and other nonspecific skin eruption; E83.39 Other disorders of phosphorus metabolism; E83.42 Hypomagnesemia; L89.020 Pressure ulcer of left elbow, unstageable; L89.620 Pressure ulcer of left heel, unstageable; L89.610 Pressure ulcer of right heel, unstageable; L89.222 Pressure ulcer of left hip, stage 2
CPT/HCPCS: 31500; 36415; 36600; 70450; 71045; 76775; 80048; 80053; 80061; 80076; 80150; 80202; 81001; 81003; 82140; 82378; 82533; 82550; 82553; 82607; 82728; 82746; 82803; 82977; 83036; 83540; 83550; 83605; 83615; 83735; 83880; 84100; 84133; 84300; 84443; 84484; 84550; 85007; 85025; 85044; 85060; 85610; 85651; 85730; 86140; 86710; 86850; 86880; 86900; 86901; 86904; 86920; 87040; 87070; 87081; 87086; 87181; 87205; 87324; 89050; 93005; 93306; 94002; 94003; 94150; 94640; 94664; C9399; J2430; J8499

== ENCOUNTER 2018-02-08 11:48 | Inpatient (IN) | payer MEDICARE, MEDICAID ==
[~2018-02-08] VITALS: Ht 167.6 cm; Wt 71.1 kg
[~2018-02-08 11:48] MED LIST changes: +ACIDOPHILUS-PE1 EACH PO; +ACIDOPHILUS1 EAC6 PO; +AMBIEN10 M1 ORAL; +CARDIZEM30 MG ORAL; +CARDURA1 MG ORAL; +DEPAKOTE250 MG GT; +DIFLUCAN100 MG GT; +DOCUSATE SODIU100 MG GT; -DOCUSATE SODIU100 MG ORAL; +ELIQUIS5 MG GT; -ELIQUIS5 MG PO; -Etomidate 40mg/20ml Inj IV ONE; +LANOXIN250 MCG ORAL; +MELATONIN3 MG ORAL; +MEROPENEM1 GM IV; +PROTONIX40 MG ORAL; +TYLENOL650 MG/20. GT; -TYLENOL650 MG/20. ORAL; +VANCOMYCIN1 GM/2502 IVPB; +XARELTO10 MG ORAL; -Zemuron 50mg/5ml Inj IV ONE
[2018-02-08] MEDS ORDERED: Pantoprazole Inj IV ONE (12:00)
[2018-02-08] MEDS ORDERED: ALBUTEROL2.5 MG/3 M INH (12:07)
[2018-02-08] MEDS ORDERED: ASPIR 8181 MG GT (12:07)
[2018-02-08] MEDS ORDERED: VITAMIN D1000 UNI1 GT (12:07)
--- NOTE | 2018-02-08 12:08 | Emergency Room Report ---
History of Present Illness General Chief Complaint: Gastrointestinal Bleed Source: Medical Record Present Illness HPI 87-year-old female with a history of multiple medical problems, sent from retirement for rectal bleeding. Patient has dementia and is unable to give any history at all. Allergies: Coded Allergies: NO KNOWN DRUG ALLERGIES (Unverified Allergy, Unknown, 07/29/14) Patient History Past Medical History: see triage record Reviewed Nursing Documentation: PMH: Agreed; PSxH: Agreed Nursing Documentation-PMH Past Medical History: No History, Except For Hx Cardiac Problems: No - anemia, hyperlipidemia, hypothyroidism Hx COPD: No - hx of PNEUMONIA Hx Diabetes: Yes Hx Gastrointestinal Problems: No - GERD, g-tube History Of Psychiatric Problem: No - dementia Hx Dementia: Yes Hx Alzheimer's Disease: Yes Hx Seizures: Yes Hx Memory Loss: Yes Hx Concentration Difficulty: Yes Review of Systems All Other Systems: negative except mentioned in HPI Physical Exam Vital Signs Date Time Temp Pulse Resp B/P (MAP) Pulse Ox O2 Delivery O2 Flow Rate FiO2 02/08/18 11:48 98.6 88 22 102/61 92 Room Air 98.6 Sp02 EP Interpretation: reviewed, normal General Appearance: no apparent distress, alert, non-toxic Head: normocephalic Eyes: bilateral eye normal inspection, bilateral eye PERRL, bilateral eye EOMI ENT: normal ENT inspection, dry mucus membranes Neck: normal inspection, full range of motion, supple, supple/symm/no masses Respiratory: chest non-tender, lungs clear, normal breath sounds, chest symmetrical, palpation of chest normal Cardiovascular #1: normal peripheral pulses, regular rate, rhythm Cardiovascular #2: 2+ radial (R), 2+ radial (L) Gastrointestinal: normal inspection, non tender, soft, no mass, no guarding, no rebound Rectal: normal exam, normal rectal tone, deferred, other - green stool Genitourinary: normal inspection, no CVA tenderness Musculoskeletal: back normal, gait/station normal, normal range of motion, non- tender, no calf tenderness Neurologic: alert, responsive, motor strength/tone normal, sensory intact Psychiatric: depressed affect Skin: normal color, no rash, warm/dry, normal turgor Lymphatic: no adenopathy Medical Decision Making Diagnostic Impression: Primary Impression: Gastrointestinal hemorrhage ER Course Patient with normal Hgb, normal VS, no active bleeding here, will admit for serial H&H. No melena on exam, greenish stool, no bleeding nor external hemorrhoid. Spoke with Dr. Choudhury who agrees to admit to telemetry. Rhythm Strip Diag. Results Rhythm Strip Time: 13:22 EP Interpretation: yes Rate: 90 Rhythm: NSR, no ectopy Chest X-Ray Diagnostic Results Chest X-Ray Diagnostic Results : Chest X-Ray Ordered: Yes # of Views/Limited/Complete: 1 View Indication: Other PA Xray: and agrees with findings. Interpretation: no consolidation, no effusion, no pneumothorax, no acute cardiopulmonary disease, other - R sided compressive atelectasis Impression: No acute disease Electronically Signed by: Teresa Raman MD Last Vital Signs Date Time Temp Pulse Resp B/P (MAP) Pulse Ox O2 Delivery O2 Flow Rate FiO2 02/08/18 11:48 98.6 88 22 102/61 92 Room Air 98.6 TERESA RAMAN M.D Feb 08, 2018 12:08
[2018-02-08] MEDS ORDERED: ATORVASTATIN CA10 MG ORAL (12:15)
[2018-02-08] MEDS ORDERED: NORCO 5-325 TA1 EACH ORAL (12:15)
[2018-02-08] MEDS ORDERED: SYNTHROID137 MCG ORAL (12:15)
[2018-02-08] MEDS ORDERED: FERROUS SULFAT325 MG ORAL (12:15)
[2018-02-08] MEDS ORDERED: LACTULOSE20 GM/301 ORAL (12:15)
[2018-02-08] MEDS ORDERED: FOLIC ACID0.8 MG ORAL (12:15)
[2018-02-08] MEDS ORDERED: GLUCAGON W/DILUE1 MG IJ (12:15)
[2018-02-08 12:27] VITALS: BP 117/47
[2018-02-08 12:27] LABS: EOSINOPHILS % (AUTO) 2.7 % (0.0-3.0); HEMATOCRIT 47.2 % (37.0-47.0); HEMOGLOBIN 15.5 G/DL (12.0-16.0); LYMPHOCYTES % (AUTO) 31.4 % (20.0-45.0); MEAN CORPUSCULAR VOLUME 93 FL (80-99); MONOCYTES % (AUTO) 9.5 % (1.0-10.0); NEUTROPHILS % (AUTO) 55.5 % (45.0-75.0); PLATELET COUNT 301 K/UL (150-450); RED CELL DISTRIBUTION WIDTH 11.3 % (11.6-14.8); WHITE BLOOD COUNT 10.7 K/UL (4.8-10.8)
[2018-02-08 12:39] LABS: ANION GAP 3 mmol/L (5-15); BLOOD UREA NITROGEN 17 mg/dL (7-18); CALCIUM 9.6 MG/DL (8.5-10.1); CARBON DIOXIDE 28 MMOL/L (21-32); CHLORIDE 97 MMOL/L (98-107); CREATININE 0.4 MG/DL (0.55-1.30); POTASSIUM 4.8 MMOL/L (3.5-5.1); SODIUM 128 MMOL/L (136-145)
[2018-02-08 12:43] LABS: ALANINE AMINOTRANSFERASE 18 U/L (12-78); ALBUMIN 2.8 G/DL (3.4-5.0); ALBUMIN/GLOBULIN RATIO 0.6 (1.0-2.7); ALKALINE PHOSPHATASE 90 U/L (46-116); ASPARTATE AMINO TRANSFERASE 18 U/L (15-37); BILIRUBIN,TOTAL 0.3 MG/DL (0.2-1.0)
[2018-02-08 13:04] LABS: APPEARANCE,URINE CLOUDY; BILIRUBIN, URINE NEGATIVE (NEGATIVE); COLOR,URINE PALE YELLOW; GLUCOSE, URINE (UA) NEGATIVE (NEGATIVE); KETONES,URINE NEGATIVE (NEGATIVE); LEUKOCYTE ESTERASE ,URINE 3+ (NEGATIVE); NITRITE,URINE POSITIVE (NEGATIVE); PH,URINE 8 (4.5-8.0); PROTEIN,URINE 3+ (NEGATIVE); UROBILINOGEN,URINE NORMAL MG/DL (0.0-1.0)
[2018-02-08 13:13] VITALS: BP 128/57
[2018-02-08] MEDS ORDERED: cefTRIAXone 1 GM in NS 55 ML IVPB ONE (13:45)
--- NOTE | 2018-02-08 13:55 | General Progress Note ---
Assessment/Plan Assessment/Plan Assessment - episodic small volume hematochezia, likely hemorrhoidal - Chronic constipation - OB (-) recently, and not anemic - discussed with DTR - wants to hold off on colonoscopy at this time - UTI - recent seizure - OBS - s/p PEG - h/o Trach Recommendations - Bowel regimen - follow symptoms and labs - no plans for colonoscopy at this time, per family directive - Abx Thank you Staci Lawrence MD Subjective Allergies: Coded Allergies: NO KNOWN DRUG ALLERGIES (Unverified Allergy, Unknown, 07/29/14) Objective Last 24 Hour Vital Signs Date Time Temp Pulse Resp B/P (MAP) Pulse Ox O2 Delivery O2 Flow Rate FiO2 02/08/18 13:13 98.0 89 26 128/57 96 Room Air 98.0 02/08/18 12:27 98.6 90 26 117/47 96 Room Air 98.6 02/08/18 11:48 98.6 88 22 102/61 92 Room Air 98.6 Laboratory Tests 02/08/18 12:05: White Blood Count 10.7, Red Blood Count 5.10, Hemoglobin 15.5, Hematocrit 47.2H , Mean Corpuscular Volume 93, Mean Corpuscular Hemoglobin 30.4, Mean Corpuscular Hemoglobin Concent 32.8, Red Cell Distribution Width 11.3L, Platelet Count 301, Mean Platelet Volume 6.5, Neutrophils (%) (Auto) 55.5, Lymphocytes (%) (Auto) 31.4, Monocytes (%) (Auto) 9.5, Eosinophils (%) (Auto) 2.7, Basophils (%) (Auto) 1.0, Prothrombin Time 10.8, Prothromb Time International Ratio 1.0, Activated Partial Thromboplast Time 23, Sodium Level 128L, Potassium Level 4.8, Chloride Level 97L, Carbon Dioxide Level 28, Anion Gap 3L, Blood Urea Nitrogen 17, Creatinine 0.4L, Estimat Glomerular Filtration Rate , Glucose Level 115H, Calcium Level 9.6, Total Bilirubin 0.3, Aspartate Amino Transf (AST/SGOT) 18, Alanine Aminotransferase (ALT/SGPT) 18, Alkaline Phosphatase 90, Troponin I 0.014, Total Protein 7.2, Albumin 2.8L, Globulin 4.4 , Albumin/Globulin Ratio 0.6L, Lipase 67L 02/08/18 12:08: Urine Color Pale yellow, Urine Appearance Cloudy, Urine pH 8, Urine Specific [place] 1.010, Urine Protein 3+H, Urine Glucose (UA) Negative, Urine Ketones Negative, Urine Blood 5+H, Urine Nitrite PositiveH, Urine Bilirubin Negative, Urine Urobilinogen Normal, Urine Leukocyte Esterase 3+H, Urine RBC 20-30H, Urine WBC TntcH, Urine Squamous Epithelial Cells ManyH, Urine Amorphous Sediment ManyH, Urine Bacteria ManyH Height (Feet): 5 Height (Inches): 6.00 Weight (Pounds): 135 Staci Lawrence MD Feb 08, 2018 13:55
[2018-02-08 14:35] VITALS: BP 109/60
--- NOTE | 2018-02-08 14:52 | Diagnostic Imaging Report ---
Indication: Dyspnea Comparison: 05/19/2017 A single view chest radiograph was obtained. Findings: There is mild right basal atelectasis. Lung volumes are low. Heart is stable. Tracheostomy is no longer seen. Left subclavian line is no longer seen. Bones are osteopenic. Kyphoplasty noted at T12. IMPRESSION: Mild right basal atelectasis
--- NOTE | 2018-02-08 16:58 | History and Physical ---
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 Unable to get history from patient 2/2 dementia even when spoken to in serbian. Patient also was found to have a + UA. History obtained from EMR. Per residential patient had an episode of BRBPR in december and since then her elaquis has been held however she had another episode last night and was therefore brought to [facility]. Daughter Erin Gee [phone] Patient FULL CODE ALL: NKDA MEDS: (per residential ) Elaquis on HOLD 06/01 bleed Depakote 250 mg po BID Memantine 10 Asa 81 mg po daily Levothyroxine Lactulose Melatonin prn Protonix Vit c Albuterol prn Ferrous sulfate PMH: Alzheimer's dementia, schizophrenia, seizure d/o, DVT/PE (on eqiluis?), pSVT, TIA/CVA, asthma, anxiety, recurrent aspiration pneumonia PSH: intubation 03/2017, s/p PEG 04/11/17 Allergies: Coded Allergies: NO KNOWN DRUG ALLERGIES (Unverified Allergy, Unknown, 07/29/14) Medication History Scheduled Acidophilus/Bulgaricus (Floranex Tablet), 1 EACH PO BID, (Reported) Apixaban (Eliquis), 5 MG GT BID, (Reported) Aspirin* (Aspir 81*), 81 MG GT DAILY, (Reported) Atorvastatin Calcium* (Lipitor*), 10 MG ORAL BEDTIME, (Reported) Calcitonin,[place],Synthetic (Calcitonin-[place]), 3.7 ML NS DAILY, (Reported) Cholecalciferol (Vitamin D3)* (Vitamin D*), 5,000 UNIT GT DAILY, (Reported) Digoxin* (Lanoxin*), 0.25 MG ORAL DAILY Diltiazem HCl (Diltiazem 12Hr ER), 30 MG ORAL EVERY 6 HOURS Divalproex Sodium* (Depakote*), 250 MG GT Q12HR, (Reported) Docusate Sodium* (Docusate Sodium*), 100 MG GT TWICE A DAY, (Reported) Doxazosin Mesylate* (Cardura*), 2 MG ORAL DAILY, (Reported) Ergocalciferol (Vitamin D2)* (Vitamin D*), 50,000 UNIT ORAL ONCE A WEEK, ( Reported) Ferrous Sulfate* (Ferrous Sulfate*), 325 MG ORAL DAILY, (Reported) Ferrous Sulfate* (Ferrous Sulfate*), 220 MG ORAL DAILY, (Reported) Fluvoxamine Maleate (Fluvoxamine Maleate), 50 MG ORAL BID, (Reported) Folic Acid (Folic Acid), 1 MG ORAL DAILY, (Reported) Lactobacillus Cmb#7/Fos/Inulin (Probiotic Complex Tablet), Unknown Dose PO DAILY , (Reported) Lactulose (Lactulose*), 30 ML ORAL DAILY, (Reported) Levothyroxine Sodium (Synthroid), 50 MCG ORAL DAILY, (Reported) Levothyroxine Sodium* (Levothyroxine Sodium*), 50 MCG ORAL DAILY, (Reported) Lidocaine (Lidocaine), 1,400 MG TP DAILY, (Reported) Memantine Hcl* (Namenda*), 10 MG ORAL TWICE A DAY, (Reported) Memantine Hcl* (Namenda*), 10 MG ORAL TWICE A DAY, (Reported) Multivitamin With Minerals (Multivitamins With Minerals*), 1 TAB ORAL DAILY, ( Reported) Olanzapine* (Zyprexa*), 5 MG ORAL HS, (Reported) Olanzapine* (Zyprexa*), 10 MG ORAL DAILY, (Reported) Olanzapine* (Zyprexa*), 10 MG ORAL BID, (Reported) Rufus-3 Fatty Acids/Fish Oil (Fish Oil 1,000 Mg Capsule), 1 CAP ORAL BID, ( Reported) Pantoprazole* (Pantoprazole*), 40 MG ORAL DAILY, (Reported) Pantoprazole* (Protonix*), 40 MG ORAL DAILY, (Reported) Ranitidine Hcl* (Zantac*), 150 MG ORAL TWICE A DAY, (Reported) Simvastatin (Zocor), 20 MG ORAL BEDTIME, (Reported) Solifenacin Succinate (Vesicare*), 10 MG ORAL HS, (Reported) Scheduled PRN Acetaminophen (Acetaminophen), 650 MG GT Q4HR PRN for Prn Headache/Temp > 101, ( Reported) Albuterol Sulfate* (Albuterol Sulfate Hhn*), 3 ML INH Q4H PRN for Shortness of Breath, (Reported) Hydrocodone Bit/Acetaminophen 10-325* ([place] 10-325*), 1 TAB ORAL Q4H PRN for For Pain, (Reported) Hydrocodone Bit/Acetaminophen 5-325* ([place] 5-325*), 1 TAB ORAL Q4H PRN for For Pain, (Reported) Lorazepam* (Ativan*), 2 MG PO PRN PRN for Agitation, (Reported) Melatonin (Melatonin), 1 MG PO BEDTIME PRN for Insomnia, (Reported) Melatonin (Melatonin), 3 MG ORAL QPM PRN Miscellaneous Medications Glucagon (Glucagen), 1 MG IJ, (Reported) Hydrocodone Bit/Acetaminophen 10-325* ([place] 10-325*), 1 TAB ORAL, (Reported) Lactobacillus Acidophilus (Acidophilus), 1 EACH PO, (Reported) Lactobacillus Acidophilus/Pect (Acidophilus-Pectin Capsule), 1 EACH PO, ( Reported) Patient History Healthcare decision maker Resuscitation status Advanced Directive on File Patient History Narrative Alzheimer's dementia, schizophrenia, seizure d/o, DVT/PE (on eqiluis?), pSVT, TIA/CVA, asthma, anxiety, recurrent aspiration pneumonia, Family History Family History: Patient reports no known family medical history. Review of Systems ROS Narrative unable to obtain MANDIE 2/2 dementia Physical Exam General Appearance: no apparent distress, confused, other - thin female, muscle wasting HEENT: normocephalic, atraumatic, anicteric, other - very dry mucous membranes , temporal muscle wasting Neck: non-tender, normal alignment, supple, normal inspection Respiratory/Chest: chest wall non-tender, lungs clear, normal breath sounds, no respiratory distress Cardiovascular/Chest: normal peripheral pulses, normal rate, regular rhythm, regularly irregular, no gallop/murmur, no JVD Abdomen: non tender, soft, no organomegaly, no mass, abnormal bowel sounds, feeding tube - c/d/i Extremities: non-tender, normal inspection, no calf tenderness Skin Exam: warm/dry, no diaphoresis Neurologic: other - unable to assess patients full neurologic status. unable to appreciate dtr's pm b/l l/e, patient does not follow commands, no tremors, no clonus , answers only in mumbles and "si, si, mamacita" Last 24 Hour Vital Signs Date Time Temp Pulse Resp B/P (MAP) Pulse Ox O2 Delivery O2 Flow Rate FiO2 02/08/18 15:40 98.2 78 27 109/60 100 Room Air 98.2 02/08/18 14:35 98.2 78 27 109/60 100 Room Air 98.2 02/08/18 13:13 98.0 89 26 128/57 96 Room Air 98.0 02/08/18 12:27 98.6 90 26 117/47 96 Room Air 98.6 02/08/18 11:48 98.6 88 22 102/61 92 Room Air 98.6 Laboratory Tests Test 02/08/18 12:05 02/08/18 12:08 White Blood Count 10.7 K/UL (4.8-10.8) Red Blood Count 5.10 M/UL (4.20-5.40) Hemoglobin 15.5 G/DL (12.0-16.0) Hematocrit 47.2 % (37.0-47.0) H Mean Corpuscular Volume 93 FL (80-99) Mean Corpuscular Hemoglobin 30.4 PG (27.0-31.0) Mean Corpuscular Hemoglobin Concent 32.8 G/DL (32.0-36.0) Red Cell Distribution Width 11.3 % (11.6-14.8) L Platelet Count 301 K/UL (150-450) Mean Platelet Volume 6.5 FL (6.5-10.1) Neutrophils (%) (Auto) 55.5 % (45.0-75.0) Lymphocytes (%) (Auto) 31.4 % (20.0-45.0) Monocytes (%) (Auto) 9.5 % (1.0-10.0) Eosinophils (%) (Auto) 2.7 % (0.0-3.0) Basophils (%) (Auto) 1.0 % (0.0-2.0) Prothrombin Time 10.8 SEC (9.30-11.50) Prothromb Time International Ratio 1.0 (0.9-1.1) Activated Partial Thromboplast Time 23 SEC (23-33) Sodium Level 128 MMOL/L (136-145) L Potassium Level 4.8 MMOL/L (3.5-5.1) Chloride Level 97 MMOL/L (98-107) L Carbon Dioxide Level 28 MMOL/L (21-32) Anion Gap 3 mmol/L (5-15) L Blood Urea Nitrogen 17 mg/dL (7-18) Creatinine 0.4 MG/DL (0.55-1.30) L Estimat Glomerular Filtration Rate mL/min (>60) Glucose Level 115 MG/DL (74-106) H Calcium Level 9.6 MG/DL (8.5-10.1) Total Bilirubin 0.3 MG/DL (0.2-1.0) Aspartate Amino Transf (AST/SGOT) 18 U/L (15-37) Alanine Aminotransferase (ALT/SGPT) 18 U/L (12-78) Alkaline Phosphatase 90 U/L (46-116) Troponin I 0.014 ng/mL (0.000-0.056) Total Protein 7.2 G/DL (6.4-8.2) Albumin 2.8 G/DL (3.4-5.0) L Globulin 4.4 g/dL Albumin/Globulin Ratio 0.6 (1.0-2.7) L Lipase 67 U/L (73-393) L Urine Color Pale yellow Urine Appearance Cloudy Urine pH 8 (4.5-8.0) Urine Specific [place] 1.010 (1.005-1.035) Urine Protein 3+ (NEGATIVE) H Urine Glucose (UA) Negative (NEGATIVE) Urine Ketones Negative (NEGATIVE) Urine Blood 5+ (NEGATIVE) H Urine Nitrite Positive (NEGATIVE) H Urine Bilirubin Negative (NEGATIVE) Urine Urobilinogen Normal MG/DL (0.0-1.0) Urine Leukocyte Esterase 3+ (NEGATIVE) H Urine RBC 20-30 /HPF (0 - 2) H Urine WBC Tntc /HPF (0 - 2) H Urine Squamous Epithelial Cells Many /LPF (NONE/OCC) H Urine Amorphous Sediment Many /LPF (NONE) H Urine Bacteria Many /HPF (NONE) H Microbiology Date/Time Source Procedure Growth Status 02/08/18 12:39 Rectum Received Height (Feet): 5 Height (Inches): 6.00 Weight (Pounds): 135 Medications Current Medications Medications (Trade) Dose Ordered Sig/Jacque Route PRN Reason Start Time Stop Time Status Last Admin Dose Admin Acetaminophen (Tylenol) 650 mg Q4H PRN ORAL Mild Pain (Pain Scale 1-3) 02/08/18 15:30 03/10/18 15:29 Acetaminophen (Tylenol) 650 mg Q4H PRN ORAL T>100.5 02/08/18 15:30 03/10/18 15:29 Atorvastatin Calcium (Lipitor) 20 mg BEDTIME GT 02/08/18 21:00 03/10/18 20:59 UNV Bisacodyl (Dulcolax) 10 mg HSPRN PRN RECTAL Constipation 02/08/18 15:30 03/10/18 15:29 Ceftriaxone Sodium 2 gm/ Dextrose 55 ml @ 110 mls/hr Q24H IVPB 02/08/18 18:00 02/15/18 17:59 Dextrose (Dextrose 50%) 25 ml Q30M PRN IV Hypoglycemia 02/08/18 15:30 03/10/18 15:29 Dextrose (Dextrose 50%) 50 ml Q30M PRN IV Hypoglycemia 02/08/18 15:30 03/10/18 15:29 Levothyroxine Sodium (Synthroid) 50 mcg DAILY@0630 GT 02/09/18 06:30 03/11/18 06:29 Magnesium Hydroxide (Mom) 30 ml HSPRN PRN ORAL Constipation 02/08/18 21:00 03/10/18 20:59 Ondansetron HCl (Zofran) 4 mg Q6H PRN IVP Nausea & Vomiting 02/08/18 15:30 03/10/18 15:29 Pantoprazole (Protonix) 40 mg DAILY ORAL 02/09/18 09:00 03/11/18 08:59 Sodium Chloride 1,000 ml @ 100 mls/hr Q10H IVLG 02/08/18 16:00 03/10/18 15:59 Assessment/Plan Problem List: (1) GI bleed ICD Codes: K92.2 - Gastrointestinal hemorrhage, unspecified SNOMED: 16198691 (2) UTI (urinary tract infection) ICD Codes: N39.0 - Urinary tract infection, site not specified SNOMED: 34115989 (3) DVT (deep venous thrombosis) ICD Codes: I82.409 - Acute embolism and thrombosis of unspecified deep veins of unspecified lower extremity SNOMED: 881401009 (4) Dehydration ICD Codes: E86.0 - Dehydration SNOMED: 52404482 Assessment/Plan BRBPR - suspect 2/2 hemorrhoids - IVF - monitor overnight with serial h/h - transfuse for hgb < 7; suspect downtrend in hgb because patient is very dry - appreciate GI reqs - elaquis has been held since december UTI - rocephin - IVF - blood and urine cultures - f/u sensitivities H/O DVT - patient is bedbound - if patient shows no signs of bleeding, will restart elaquis Dehydration - TF through GT w [facility] - IVF's Hypothyroid - levothyroxine 50 mcg Code status: FULL I spent more than 30 minutes for patient care, gathering information from residential and coordinating care with specialists. Julita Choudhury DO Feb 08, 2018 16:58
[2018-02-08] MEDS: cefTRIAXone 2 GM in D5W 55 ML IVPB SCH (17:41)
[2018-02-08 18:45] LABS: BASOPHILS % (AUTO) 0.7 % (0.0-2.0); EOSINOPHILS % (AUTO) 3.3 % (0.0-3.0); HEMATOCRIT 45.8 % (37.0-47.0); HEMOGLOBIN 15.8 G/DL (12.0-16.0); LYMPHOCYTES % (AUTO) 33.1 % (20.0-45.0); MEAN CORPUSCULAR VOLUME 95 FL (80-99); MONOCYTES % (AUTO) 8.2 % (1.0-10.0); NEUTROPHILS % (AUTO) 54.7 % (45.0-75.0); PLATELET COUNT 275 K/UL (150-450); RED BLOOD COUNT 4.84 M/UL (4.20-5.40); RED CELL DISTRIBUTION WIDTH 11.1 % (11.6-14.8); WHITE BLOOD COUNT 8.9 K/UL (4.8-10.8)
[2018-02-08 19:12] LABS: ALANINE AMINOTRANSFERASE 15 U/L (12-78); ALBUMIN 2.8 G/DL (3.4-5.0); ALBUMIN/GLOBULIN RATIO 0.6 (1.0-2.7); ALKALINE PHOSPHATASE 92 U/L (46-116); ANION GAP 8 mmol/L (5-15); ASPARTATE AMINO TRANSFERASE 14 U/L (15-37); BILIRUBIN,TOTAL 0.2 MG/DL (0.2-1.0); BLOOD UREA NITROGEN 11 mg/dL (7-18); CALCIUM 9.5 MG/DL (8.5-10.1); CARBON DIOXIDE 26 MMOL/L (21-32); CHLORIDE 102 MMOL/L (98-107); CREATININE 0.5 MG/DL (0.55-1.30); SODIUM 136 MMOL/L (136-145)
[2018-02-08 20:00] VITALS: BP 108/56
[2018-02-08] MEDS: Atorvastatin 20mg tab GT SCH (20:22)
[2018-02-08] MEDS ORDERED: Milk of Magnesia 30ml Ud ORAL PRN (21:00)
[2018-02-08 23:58] LABS: BASOPHILS % (AUTO) 0.7 % (0.0-2.0); EOSINOPHILS % (AUTO) 3.8 % (0.0-3.0); HEMATOCRIT 43.7 % (37.0-47.0); HEMOGLOBIN 15.2 G/DL (12.0-16.0); LYMPHOCYTES % (AUTO) 33.6 % (20.0-45.0); MEAN CORPUSCULAR VOLUME 94 FL (80-99); MONOCYTES % (AUTO) 10.7 % (1.0-10.0); NEUTROPHILS % (AUTO) 51.2 % (45.0-75.0); PLATELET COUNT 320 K/UL (150-450); RED BLOOD COUNT 4.64 M/UL (4.20-5.40); RED CELL DISTRIBUTION WIDTH 11.2 % (11.6-14.8); WHITE BLOOD COUNT 10.8 K/UL (4.8-10.8)
[2018-02-09] VITALS: BP 100/61
--- NOTE | 2018-02-09 02:00 | Consultation ---
DATE OF CONSULTATION: 02/08/2018 GASTROENTEROLOGY CONSULTATION CHIEF COMPLAINT: I was asked to see this patient by Dr. María Bustamante for evaluation of hematochezia. HISTORY OF PRESENT ILLNESS: The patient is an unfortunate 87-year-old woman with multiple medical problems with advanced dementia from the [facility] who was brought in due to rectal bleeding. I have discussed the matter with the patient's nurse at the [facility] and appears that she had episode for bright red blood per rectum last night, which resolved this morning. She had a similar episode about a month ago. In between she has had nonboody stools. The patient's daughter states that the patient has chronic constipation for many years and requires a bowel regimen. The patient's daughter states that she has never had a colonoscopy and the daughter at this time is not interested in pursuing colonoscopy given the patient's age, dementia, and poor overall health. However, she does request a bowel regimen to be given. The patient does not have anemia and in fact stool specimen from two days ago was okay. Occult blood negative at the [facility]. The patient also had a seizure about two days ago and the daughter believes this is usually due to an infection such as urine infection and in fact her urine showed white cells and red cells consistent with likely infection. The patient herself is awake, but noncommunicative and most of the information is only available from the chart. PAST MEDICAL HISTORY: History of dementia, status post gastrostomy, history of tracheostomy, which has been removed, history of abdominal surgery of unclear type, history of right knee surgery, history of herpes zoster, history of schizophrenia, seizure disorder, encephalopathy, history of deep venous thrombosis and pulmonary embolism, history of electrolyte abnormalities, history of multiple pressure ulcers and incontinence. ALLERGIES: None. FAMILY HISTORY: Noncontributory. SOCIAL HISTORY: The patient resides in a [facility] and has had no recent history of smoking or drinking. Her daughter by the name of Malika looks after her. REVIEW OF SYSTEMS: Otherwise negative. PHYSICAL EXAMINATION: GENERAL: Elderly woman, seen in emergency room. HEENT: Normocephalic and atraumatic. Dentition is poor. NECK: Supple. CHEST: Clear to auscultation. CARDIOVASCULAR: Revealed regular rate. ABDOMEN: Soft. Good bowel sounds. There is no organomegaly or tenderness. EXTREMITIES: With mild contractures. RECTAL: Rectal exam externally revealed loose green stools and no external lesions. LABORATORY DATA: Noted. ASSESSMENT: This patient presents with an episode of hematochezia, which occurred also once a month ago and in the setting of chronic constipation, this may be hemorrhoidal in nature. The patient does not have any anemia and she was actually heme-negative two days ago. She has never had a colonoscopy, but the daughter is not interested in pursuing that level of intervention. At this time, I would follow with the patient expectantly and give her good bowel regimen for long-term use. Should she have ongoing bleeding, anemia, or worsening symptoms, then she will have a colonoscopy here in her revisit. The antibiotics can be given for urinary tract infection while she is in the hospital and thereafter. RECOMMENDATIONS: Per above discussion and per orders written in the chart. Thank you for asking me to participate in the care of this patient. Staci Lawrence M.D. DR: ALEXX JOB#: [id number] CC:
[2018-02-09 04:00] VITALS: BP 105/68
[2018-02-09 07:28] LABS: BASOPHILS % (AUTO) 0.8 % (0.0-2.0); HEMATOCRIT 43.6 % (37.0-47.0); HEMOGLOBIN 14.4 G/DL (12.0-16.0); LYMPHOCYTES % (AUTO) 32.6 % (20.0-45.0); MEAN CORPUSCULAR VOLUME 94 FL (80-99); MONOCYTES % (AUTO) 10.7 % (1.0-10.0); NEUTROPHILS % (AUTO) 51.9 % (45.0-75.0); PLATELET COUNT 275 K/UL (150-450); RED BLOOD COUNT 4.65 M/UL (4.20-5.40); RED CELL DISTRIBUTION WIDTH 11.5 % (11.6-14.8); WHITE BLOOD COUNT 8.9 K/UL (4.8-10.8)
[2018-02-09 07:31] LABS: ALANINE AMINOTRANSFERASE 17 U/L (12-78); ALBUMIN 2.6 G/DL (3.4-5.0); ALBUMIN/GLOBULIN RATIO 0.6 (1.0-2.7); ALKALINE PHOSPHATASE 81 U/L (46-116); ANION GAP 7 mmol/L (5-15); ASPARTATE AMINO TRANSFERASE 14 U/L (15-37); BILIRUBIN,TOTAL 0.3 MG/DL (0.2-1.0); BLOOD UREA NITROGEN 13 mg/dL (7-18); CALCIUM 9.3 MG/DL (8.5-10.1); CARBON DIOXIDE 26 MMOL/L (21-32); CHLORIDE 106 MMOL/L (98-107); CREATININE 0.4 MG/DL (0.55-1.30); SODIUM 139 MMOL/L (136-145)
[2018-02-09 08:00] VITALS: BP 130/77
--- NOTE | 2018-02-09 08:23 | General Progress Note ---
Assessment/Plan Problem List: (1) S/P percutaneous endoscopic gastrostomy (PEG) tube placement ICD Codes: Z93.1 - Gastrostomy status SNOMED: 694455815 (2) Dementia ICD Codes: F03.90 - Dementia SNOMED: 46069083 (3) SVT (supraventricular tachycardia) ICD Codes: I47.1 - SVT (supraventricular tachycardia) SNOMED: 1663350 (4) GI bleed ICD Codes: K92.2 - Gastrointestinal hemorrhage, unspecified SNOMED: 82279802 Assessment/Plan no recurrent GIB had BM on GTF Subjective ROS Limited/Unobtainable: No Allergies: Coded Allergies: NO KNOWN DRUG ALLERGIES (Unverified Allergy, Unknown, 07/29/14) Subjective svt last night Objective Last 24 Hour Vital Signs Date Time Temp Pulse Resp B/P (MAP) Pulse Ox O2 Delivery O2 Flow Rate FiO2 02/09/18 04:00 97.1 79 18 105/68 (80) 94 97.1 02/09/18 03:37 82 02/09/18 00:00 98.0 82 18 100/61 (74) 96 98.0 02/08/18 23:42 89 02/08/18 21:00 Room Air 02/08/18 20:00 97.4 92 18 108/56 (73) 95 97.4 02/08/18 16:00 Room Air 02/08/18 15:40 98.2 78 27 109/60 100 Room Air 98.2 02/08/18 14:35 98.2 78 27 109/60 100 Room Air 98.2 02/08/18 13:13 98.0 89 26 128/57 96 Room Air 98.0 02/08/18 12:27 98.6 90 26 117/47 96 Room Air 98.6 02/08/18 11:48 98.6 88 22 102/61 92 Room Air 98.6 Intake and Output 02/08/18 02/09/18 19:00 07:00 Intake Total 300 ml 1707 ml Output Total 0 ml Balance 300 ml 1707 ml Intake Oral 200 ml Free Water 470 ml IV Total 100 ml 1017 ml Tube Feeding 220 ml Output Urine Total 0 ml # Voids 4 1 # Bowel Movements 1 Laboratory Tests 02/08/18 12:05: White Blood Count 10.7, Red Blood Count 5.10, Hemoglobin 15.5, Hematocrit 47.2H , Mean Corpuscular Volume 93, Mean Corpuscular Hemoglobin 30.4, Mean Corpuscular Hemoglobin Concent 32.8, Red Cell Distribution Width 11.3L, Platelet Count 301, Mean Platelet Volume 6.5, Neutrophils (%) (Auto) 55.5, Lymphocytes (%) (Auto) 31.4, Monocytes (%) (Auto) 9.5, Eosinophils (%) (Auto) 2.7, Basophils (%) (Auto) 1.0, Prothrombin Time 10.8, Prothromb Time International Ratio 1.0, Activated Partial Thromboplast Time 23, Sodium Level 128L, Potassium Level 4.8, Chloride Level 97L, Carbon Dioxide Level 28, Anion Gap 3L, Blood Urea Nitrogen 17, Creatinine 0.4L, Estimat Glomerular Filtration Rate , Glucose Level 115H, Calcium Level 9.6, Total Bilirubin 0.3, Aspartate Amino Transf (AST/SGOT) 18, Alanine Aminotransferase (ALT/SGPT) 18, Alkaline Phosphatase 90, Troponin I 0.014, Total Protein 7.2, Albumin 2.8L, Globulin 4.4 , Albumin/Globulin Ratio 0.6L, Lipase 67L 02/08/18 12:08: Urine Color Pale yellow, Urine Appearance Cloudy, Urine pH 8, Urine Specific [place] 1.010, Urine Protein 3+H, Urine Glucose (UA) Negative, Urine Ketones Negative, Urine Blood 5+H, Urine Nitrite PositiveH, Urine Bilirubin Negative, Urine Urobilinogen Normal, Urine Leukocyte Esterase 3+H, Urine RBC 20-30H, Urine WBC TntcH, Urine Squamous Epithelial Cells ManyH, Urine Amorphous Sediment ManyH, Urine Bacteria ManyH 02/08/18 18:30: White Blood Count 8.9, Red Blood Count 4.84, Hemoglobin 15.8, Hematocrit 45.8, Mean Corpuscular Volume 95, Mean Corpuscular Hemoglobin 32.5H, Mean Corpuscular Hemoglobin Concent 34.4, Red Cell Distribution Width 11.1L, Platelet Count 275, Mean Platelet Volume 6.1L, Neutrophils (%) (Auto) 54.7, Lymphocytes (%) (Auto) 33.1, Monocytes (%) (Auto) 8.2, Eosinophils (%) (Auto) 3.3H, Basophils (%) (Auto ) 0.7, Sodium Level 136, Potassium Level 4.0, Chloride Level 102, Carbon Dioxide Level 26, Anion Gap 8, Blood Urea Nitrogen 11, Creatinine 0.5L, Estimat Glomerular Filtration Rate , Glucose Level 162H, Calcium Level 9.5, Total Bilirubin 0.2, Aspartate Amino Transf (AST/SGOT) 14L, Alanine Aminotransferase ( ALT/SGPT) 15, Alkaline Phosphatase 92, Total Protein 7.3, Albumin 2.8L, Globulin 4.5, Albumin/Globulin Ratio 0.6L, Magnesium Level 2.0, Thyroid Stimulating Hormone (TSH) 0.870 02/08/18 23:50: White Blood Count 10.8, Red Blood Count 4.64, Hemoglobin 15.2, Hematocrit 43.7, Mean Corpuscular Volume 94, Mean Corpuscular Hemoglobin 32.7H, Mean Corpuscular Hemoglobin Concent 34.7, Red Cell Distribution Width 11.2L, Platelet Count 320, Mean Platelet Volume 6.0L, Neutrophils (%) (Auto) 51.2, Lymphocytes (%) (Auto) 33.6, Monocytes (%) (Auto) 10.7H, Eosinophils (%) (Auto) 3.8H, Basophils (%) ( Auto) 0.7 02/09/18 05:35: White Blood Count 8.9, Red Blood Count 4.65, Hemoglobin 14.4, Hematocrit 43.6, Mean Corpuscular Volume 94, Mean Corpuscular Hemoglobin 31.1H, Mean Corpuscular Hemoglobin Concent 33.1, Red Cell Distribution Width 11.5L, Platelet Count 275, Mean Platelet Volume 6.2L, Neutrophils (%) (Auto) 51.9, Lymphocytes (%) (Auto) 32.6, Monocytes (%) (Auto) 10.7H, Eosinophils (%) (Auto) 4.0H, Basophils (%) ( Auto) 0.8, Sodium Level 139, Potassium Level 4.0, Chloride Level 106, Carbon Dioxide Level 26, Anion Gap 7, Blood Urea Nitrogen 13, Creatinine 0.4L, Estimat Glomerular Filtration Rate , Glucose Level 109H, Calcium Level 9.3, Magnesium Level 2.0, Total Bilirubin 0.3, Aspartate Amino Transf (AST/SGOT) 14L, Alanine Aminotransferase (ALT/SGPT) 17, Alkaline Phosphatase 81, Total Protein 6.8, Albumin 2.6L, Globulin 4.2, Albumin/Globulin Ratio 0.6L Height (Feet): 5 Height (Inches): 6.00 Weight (Pounds): 135 General Appearance: alert EENT: PERRL/EOMI Neck: supple Cardiovascular: normal rate Respiratory/Chest: decreased breath sounds Abdomen: normal bowel sounds, non tender, soft Extremities: non-tender Gino Morales MD Feb 09, 2018 08:23
[2018-02-09] MEDS ORDERED: Acetaminophen 650mg/20.3ml GT PRN (10:34)
[2018-02-09] MEDS ORDERED: Sterile Water For Irrig 2000ml IRRIG ONE (10:35)
[2018-02-09 11:39] LABS: BASOPHILS % (AUTO) 0.7 % (0.0-2.0); EOSINOPHILS % (AUTO) 2.2 % (0.0-3.0); HEMATOCRIT 46.3 % (37.0-47.0); HEMOGLOBIN 15.6 G/DL (12.0-16.0); LYMPHOCYTES % (AUTO) 31.4 % (20.0-45.0); MEAN CORPUSCULAR VOLUME 94 FL (80-99); MONOCYTES % (AUTO) 9.7 % (1.0-10.0); PLATELET COUNT 306 K/UL (150-450); RED BLOOD COUNT 4.93 M/UL (4.20-5.40); RED CELL DISTRIBUTION WIDTH 11.6 % (11.6-14.8); WHITE BLOOD COUNT 8.4 K/UL (4.8-10.8)
[2018-02-09 12:00] VITALS: BP 132/48
--- NOTE | 2018-02-09 14:47 | General Progress Note ---
Assessment/Plan Assessment/Plan BRBPR - suspect 2/2 hemorrhoids - IVF - monitor overnight with serial h/h - transfuse for hgb < 7; suspect downtrend in hgb because patient is very dry - appreciate GI reqs - elaquis has been held since december UTI - rocephin - IVF - blood and urine cultures - f/u sensitivities SVT - cardiology consult - clinical research monitor - EKG NSR w/ PVCs - check TSH H/O DVT - patient is bedbound - if patient shows no signs of bleeding, will restart elaquis Dehydration - TF through GT w FWF - IVF's Hypothyroid - levothyroxine 50 mcg Code status: FULL I spent 44 minutes for patient care, 28 min was dedicated to counseling and or care coordination. Subjective Date patient seen: Feb 09, 2018 Allergies: Coded Allergies: NO KNOWN DRUG ALLERGIES (Unverified Allergy, Unknown, 07/29/14) Subjective AVSS BRBPR noted, GI aware Trending CBC, Hb stable thus far SVT on monitor per RN overnight, cards consulted Tolerating abx Poor historian Objective Last 24 Hour Vital Signs Date Time Temp Pulse Resp B/P (MAP) Pulse Ox O2 Delivery O2 Flow Rate FiO2 02/09/18 12:00 97.2 87 18 132/48 (76) 93 97.2 02/09/18 09:00 Room Air 02/09/18 08:00 96 02/09/18 08:00 97.8 99 18 130/77 (94) 93 97.8 02/09/18 04:00 97.1 79 18 105/68 (80) 94 97.1 02/09/18 03:37 82 02/09/18 00:00 98.0 82 18 100/61 (74) 96 98.0 02/08/18 23:42 89 02/08/18 21:00 Room Air 02/08/18 20:00 97.4 92 18 108/56 (73) 95 97.4 02/08/18 16:00 Room Air 02/08/18 15:40 98.2 78 27 109/60 100 Room Air 98.2 Intake and Output 02/08/18 02/09/18 19:00 07:00 Intake Total 300 ml 1707 ml Output Total 0 ml Balance 300 ml 1707 ml Intake Oral 200 ml Free Water 470 ml IV Total 100 ml 1017 ml Tube Feeding 220 ml Output Urine Total 0 ml # Voids 4 1 # Bowel Movements 1 Laboratory Tests 02/08/18 18:30: White Blood Count 8.9, Red Blood Count 4.84, Hemoglobin 15.8, Hematocrit 45.8, Mean Corpuscular Volume 95, Mean Corpuscular Hemoglobin 32.5H, Mean Corpuscular Hemoglobin Concent 34.4, Red Cell Distribution Width 11.1L, Platelet Count 275, Mean Platelet Volume 6.1L, Neutrophils (%) (Auto) 54.7, Lymphocytes (%) (Auto) 33.1, Monocytes (%) (Auto) 8.2, Eosinophils (%) (Auto) 3.3H, Basophils (%) (Auto ) 0.7, Sodium Level 136, Potassium Level 4.0, Chloride Level 102, Carbon Dioxide Level 26, Anion Gap 8, Blood Urea Nitrogen 11, Creatinine 0.5L, Estimat Glomerular Filtration Rate , Glucose Level 162H, Calcium Level 9.5, Magnesium Level 2.0, Total Bilirubin 0.2, Aspartate Amino Transf (AST/SGOT) 14L, Alanine Aminotransferase (ALT/SGPT) 15, Alkaline Phosphatase 92, Total Protein 7.3, Albumin 2.8L, Globulin 4.5, Albumin/Globulin Ratio 0.6L, Thyroid Stimulating Hormone (TSH) 0.870 02/08/18 23:50: White Blood Count 10.8, Red Blood Count 4.64, Hemoglobin 15.2, Hematocrit 43.7, Mean Corpuscular Volume 94, Mean Corpuscular Hemoglobin 32.7H, Mean Corpuscular Hemoglobin Concent 34.7, Red Cell Distribution Width 11.2L, Platelet Count 320, Mean Platelet Volume 6.0L, Neutrophils (%) (Auto) 51.2, Lymphocytes (%) (Auto) 33.6, Monocytes (%) (Auto) 10.7H, Eosinophils (%) (Auto) 3.8H, Basophils (%) ( Auto) 0.7 02/09/18 05:35: White Blood Count 8.9, Red Blood Count 4.65, Hemoglobin 14.4, Hematocrit 43.6, Mean Corpuscular Volume 94, Mean Corpuscular Hemoglobin 31.1H, Mean Corpuscular Hemoglobin Concent 33.1, Red Cell Distribution Width 11.5L, Platelet Count 275, Mean Platelet Volume 6.2L, Neutrophils (%) (Auto) 51.9, Lymphocytes (%) (Auto) 32.6, Monocytes (%) (Auto) 10.7H, Eosinophils (%) (Auto) 4.0H, Basophils (%) ( Auto) 0.8, Sodium Level 139, Potassium Level 4.0, Chloride Level 106, Carbon Dioxide Level 26, Anion Gap 7, Blood Urea Nitrogen 13, Creatinine 0.4L, Estimat Glomerular Filtration Rate , Glucose Level 109H, Calcium Level 9.3, Magnesium Level 2.0, Total Bilirubin 0.3, Aspartate Amino Transf (AST/SGOT) 14L, Alanine Aminotransferase (ALT/SGPT) 17, Alkaline Phosphatase 81, Total Protein 6.8, Albumin 2.6L, Globulin 4.2, Albumin/Globulin Ratio 0.6L 02/09/18 11:30: White Blood Count 8.4, Red Blood Count 4.93, Hemoglobin 15.6, Hematocrit 46.3, Mean Corpuscular Volume 94, Mean Corpuscular Hemoglobin 31.6H, Mean Corpuscular Hemoglobin Concent 33.6, Red Cell Distribution Width 11.6, Platelet Count 306, Mean Platelet Volume 6.7, Neutrophils (%) (Auto) 56.0, Lymphocytes (%) (Auto) 31.4, Monocytes (%) (Auto) 9.7, Eosinophils (%) (Auto) 2.2, Basophils (%) (Auto ) 0.7 Height (Feet): 5 Height (Inches): 6.00 Weight (Pounds): 135 Objective General Appearance: no apparent distress, confused, other - thin female, muscle wasting HEENT: normocephalic, atraumatic, anicteric, other - very dry mucous membranes , temporal muscle wasting Neck: non-tender, normal alignment, supple, normal inspection Respiratory/Chest: chest wall non-tender, lungs clear, normal breath sounds, no respiratory distress Cardiovascular/Chest: normal peripheral pulses, normal rate, regular rhythm, regularly irregular, no gallop/murmur, no JVD Abdomen: non tender, soft, no organomegaly, no mass, abnormal bowel sounds, feeding tube - c/d/i Extremities: non-tender, normal inspection, no calf tenderness Skin Exam: warm/dry, no diaphoresis Neurologic: other - unable to assess patients full neurologic status. unable to appreciate dtr's pm b/l l/e, patient does not follow commands, no tremors, no clonus , answers only in mumbles and "si, si, mamlbta" Yonatan Hood MD Feb 09, 2018 14:47
[2018-02-09 14:51] LABS: BASOPHILS % (AUTO) 0.7 % (0.0-2.0); HEMATOCRIT 43.1 % (37.0-47.0); HEMOGLOBIN 14.2 G/DL (12.0-16.0); LYMPHOCYTES % (AUTO) 30.7 % (20.0-45.0); MEAN CORPUSCULAR VOLUME 93 FL (80-99); MONOCYTES % (AUTO) 11.2 % (1.0-10.0); NEUTROPHILS % (AUTO) 54.5 % (45.0-75.0); PLATELET COUNT 299 K/UL (150-450); RED BLOOD COUNT 4.61 M/UL (4.20-5.40); RED CELL DISTRIBUTION WIDTH 11.4 % (11.6-14.8); WHITE BLOOD COUNT 8.5 K/UL (4.8-10.8)
[2018-02-09 16:00] VITALS: BP 125/68
[2018-02-09] MEDS: cefTRIAXone 2 GM in D5W 55 ML IVPB SCH (17:25)
--- NOTE | 2018-02-09 17:53 | Cardiac Electrophysiology PN ---
Subjective Subjective [id number] Objective Last 24 Hour Vital Signs Date Time Temp Pulse Resp B/P (MAP) Pulse Ox O2 Delivery O2 Flow Rate FiO2 02/09/18 16:00 97.0 83 19 125/68 (87) 97 97.0 02/09/18 16:00 88 02/09/18 12:00 97.2 87 18 132/48 (76) 93 97.2 02/09/18 12:00 96 02/09/18 09:00 Room Air 02/09/18 08:00 96 02/09/18 08:00 97.8 99 18 130/77 (94) 93 97.8 02/09/18 04:00 97.1 79 18 105/68 (80) 94 97.1 02/09/18 03:37 82 02/09/18 00:00 98.0 82 18 100/61 (74) 96 98.0 02/08/18 23:42 89 02/08/18 21:00 Room Air 02/08/18 20:00 97.4 92 18 108/56 (73) 95 97.4 Intake and Output 02/08/18 02/09/18 19:00 07:00 Intake Total 300 ml 1707 ml Output Total 0 ml Balance 300 ml 1707 ml Intake Oral 200 ml Free Water 470 ml IV Total 100 ml 1017 ml Tube Feeding 220 ml Output Urine Total 0 ml # Voids 4 1 # Bowel Movements 1 Laboratory Tests Test 02/08/18 18:30 02/08/18 23:50 02/09/18 05:35 02/09/18 11:30 White Blood Count 8.9 K/UL (4.8-10.8) 10.8 K/UL (4.8-10.8) 8.9 K/UL (4.8-10.8) 8.4 K/UL (4.8-10.8) Red Blood Count 4.84 M/UL (4.20-5.40) 4.64 M/UL (4.20-5.40) 4.65 M/UL (4.20-5.40) 4.93 M/UL (4.20-5.40) Hemoglobin 15.8 G/DL (12.0-16.0) 15.2 G/DL (12.0-16.0) 14.4 G/DL (12.0-16.0) 15.6 G/DL (12.0-16.0) Hematocrit 45.8 % (37.0-47.0) 43.7 % (37.0-47.0) 43.6 % (37.0-47.0) 46.3 % (37.0-47.0) Mean Corpuscular Volume 95 FL (80-99) 94 FL (80-99) 94 FL (80-99) 94 FL ( 80-99) Mean Corpuscular Hemoglobin 32.5 PG (27.0-31.0) H 32.7 PG (27.0-31.0) H 31.1 PG (27.0-31.0) H 31.6 PG (27.0-31.0) H Mean Corpuscular Hemoglobin Concent 34.4 G/DL (32.0-36.0) 34.7 G/DL (32.0-36.0) 33.1 G/DL (32.0-36.0) 33.6 G/DL (32.0-36.0) Red Cell Distribution Width 11.1 % (11.6-14.8) L 11.2 % (11.6-14.8) L 11.5 % (11.6-14.8) L 11.6 % (11.6-14.8) Platelet Count 275 K/UL (150-450) 320 K/UL (150-450) 275 K/UL (150-450) 306 K/UL (150-450) Mean Platelet Volume 6.1 FL (6.5-10.1) L 6.0 FL (6.5-10.1) L 6.2 FL (6.5-10.1) L 6.7 FL (6.5-10.1) Neutrophils (%) (Auto) 54.7 % (45.0-75.0) 51.2 % (45.0-75.0) 51.9 % (45.0-75.0) 56.0 % (45.0-75.0) Lymphocytes (%) (Auto) 33.1 % (20.0-45.0) 33.6 % (20.0-45.0) 32.6 % (20.0-45.0) 31.4 % (20.0-45.0) Monocytes (%) (Auto) 8.2 % (1.0-10.0) 10.7 % (1.0-10.0) H 10.7 % (1.0-10.0) H 9.7 % (1.0-10.0) Eosinophils (%) (Auto) 3.3 % (0.0-3.0) H 3.8 % (0.0-3.0) H 4.0 % (0.0-3.0) H 2.2 % (0.0-3.0) Basophils (%) (Auto) 0.7 % (0.0-2.0) 0.7 % (0.0-2.0) 0.8 % (0.0-2.0) 0.7 % (0.0-2.0) Sodium Level 136 MMOL/L (136-145) 139 MMOL/L (136-145) Potassium Level 4.0 MMOL/L (3.5-5.1) 4.0 MMOL/L (3.5-5.1) Chloride Level 102 MMOL/L (98-107) 106 MMOL/L (98-107) Carbon Dioxide Level 26 MMOL/L (21-32) 26 MMOL/L (21-32) Anion Gap 8 mmol/L (5-15) 7 mmol/L (5-15) Blood Urea Nitrogen 11 mg/dL (7-18) 13 mg/dL (7-18) Creatinine 0.5 MG/DL (0.55-1.30) L 0.4 MG/DL (0.55-1.30) L Estimat Glomerular Filtration Rate mL/min (>60) mL/min (>60) Glucose Level 162 MG/DL (74-106) H 109 MG/DL (74-106) H Calcium Level 9.5 MG/DL (8.5-10.1) 9.3 MG/DL (8.5-10.1) Magnesium Level 2.0 MG/DL (1.8-2.4) 2.0 MG/DL (1.8-2.4) Total Bilirubin 0.2 MG/DL (0.2-1.0) 0.3 MG/DL (0.2-1.0) Aspartate Amino Transf (AST/SGOT) 14 U/L (15-37) L 14 U/L (15-37) L Alanine Aminotransferase (ALT/SGPT) 15 U/L (12-78) 17 U/L (12-78) Alkaline Phosphatase 92 U/L (46-116) 81 U/L (46-116) Total Protein 7.3 G/DL (6.4-8.2) 6.8 G/DL (6.4-8.2) Albumin 2.8 G/DL (3.4-5.0) L 2.6 G/DL (3.4-5.0) L Globulin 4.5 g/dL 4.2 g/dL Albumin/Globulin Ratio 0.6 (1.0-2.7) L 0.6 (1.0-2.7) L Thyroid Stimulating Hormone (TSH) 0.870 uiU/mL (0.358-3.740) Test 02/09/18 14:20 White Blood Count 8.5 K/UL (4.8-10.8) Red Blood Count 4.61 M/UL (4.20-5.40) Hemoglobin 14.2 G/DL (12.0-16.0) Hematocrit 43.1 % (37.0-47.0) Mean Corpuscular Volume 93 FL (80-99) Mean Corpuscular Hemoglobin 30.7 PG (27.0-31.0) Mean Corpuscular Hemoglobin Concent 32.9 G/DL (32.0-36.0) Red Cell Distribution Width 11.4 % (11.6-14.8) L Platelet Count 299 K/UL (150-450) Mean Platelet Volume 6.5 FL (6.5-10.1) Neutrophils (%) (Auto) 54.5 % (45.0-75.0) Lymphocytes (%) (Auto) 30.7 % (20.0-45.0) Monocytes (%) (Auto) 11.2 % (1.0-10.0) H Eosinophils (%) (Auto) 3.0 % (0.0-3.0) Basophils (%) (Auto) 0.7 % (0.0-2.0) Phosphorus Level 2.7 MG/DL (2.5-4.9) Microbiology Date/Time Source Procedure Growth Status 02/08/18 12:39 Rectum Received Bret Morrwo MD Feb 09, 2018 17:53
[2018-02-09 20:00] VITALS: BP 137/66
[2018-02-09] MEDS ORDERED: Milk of Magnesia 30ml Ud GT PRN (21:00)
[2018-02-09] MEDS: Atorvastatin 20mg tab GT SCH (21:23)
[2018-02-09] MEDS: dilTIAZem HCl 60mg tab ORAL SCH (21:24)
[2018-02-09 21:28] LABS: BASOPHILS % (AUTO) 1.3 % (0.0-2.0); EOSINOPHILS % (AUTO) 3.8 % (0.0-3.0); HEMATOCRIT 41.2 % (37.0-47.0); LYMPHOCYTES % (AUTO) 35.2 % (20.0-45.0); MEAN CORPUSCULAR VOLUME 96 FL (80-99); MONOCYTES % (AUTO) 10.6 % (1.0-10.0); NEUTROPHILS % (AUTO) 49.1 % (45.0-75.0); PLATELET COUNT 287 K/UL (150-450); RED BLOOD COUNT 4.31 M/UL (4.20-5.40); RED CELL DISTRIBUTION WIDTH 11.5 % (11.6-14.8); WHITE BLOOD COUNT 8.2 K/UL (4.8-10.8)
--- NOTE | 2018-02-09 22:16 | Consultation ---
DATE OF CONSULTATION: 02/09/2018 CARDIOLOGY CONSULTATION CONSULTING PHYSICIAN: Bret Morrow M.D. REFERRING PHYSICIAN: Yonatan Hood M.D. REASON FOR CONSULTATION: Supraventricular tachycardia. HISTORY OF PRESENT ILLNESS: The patient is a very pleasant 87-year-old lady, who has advanced dementia as well as dysphagia, status post PEG placement, who was admitted [facility] the hospital from shelter for rectal bleeding. The patient is unable to provide any information. While she was on telemetry, the patient had recurrent runs of supraventricular tachycardia of sudden onset and sudden termination, rate of up to 180 beats per minute. The patient's arrhythmia self-terminated. The patient did not have any complaints during these episodes. The patient underwent an echocardiogram that showed EF of 60%. Cardiology consultation was obtained for further evaluation and management. REVIEW OF SYSTEMS: Negative other than what was mentioned in the history of present illness. PAST MEDICAL HISTORY: 1. Hypertension. 2. Diabetes. 3. Dementia. 4. Gastroesophageal reflux disease. 5. History of dysphagia, status post PEG placement. 6. Hypothyroidism. FAMILY HISTORY: Noncontributory. SOCIAL HISTORY: She lives in a shelter. Does not smoke or drink alcohol. PHYSICAL EXAMINATION: VITAL SIGNS: Blood pressure is 125/68, pulse is 88, respirations 18, and temperature is 97. HEAD AND NECK: Shows no JVD. LUNGS: Clear. CARDIOVASCULAR: Shows regular S1 and S2 with no gallop or murmur. ABDOMEN: Status post G-tube. EXTREMITIES: No pitting edema. LABORATORY AND DIAGNOSTIC DATA: Telemetry strip showed runs of SVT at rate of 180 beats per minute. A 12-lead EKG showed no evidence of . Labs showed white count of 8.5, hematocrit 14.2, hematocrit 43.1, and platelet count is 299,000. Sodium 139, potassium 4.0, BUN of 13, creatinine of 0.4, and glucose of 109. Troponin is negative. INR is 1. Urinalysis showed many bacteria with too numerous to count wbc. ASSESSMENT AND PLAN: 1. Recurrent supraventricular tachycardia. We will treat her medically in view of her advanced dementia. Hold off on electrophysiology study and ablation at this point, however, that will be a consideration if she continues to have recurrence of SVT despite antiarrhythmic therapy. I will start the patient on Cardizem 60 mg three times daily. If she has recurrent SVT, I will start the patient on digoxin as well. 2. Dementia. 3. Dysphagia, status post PEG placement. 4. Rectal bleeding. Further evaluation by Dr. Lawrence. Thank you very much for allowing me to participate in the care of this patient. Please do not hesitate to contact me if you have any questions regarding my evaluation. Bret Morrow M.D. DR: ESTEPHANIA JOB#: [id number] CC:
[2018-02-10] VITALS: BP 120/59
--- NOTE | 2018-02-10 00:02 | Consultation ---
History of Present Illness General Date patient seen: Feb 09, 2018 Chief Complaint: Gastrointestinal Bleed Present Illness HPI 86 year oldfemalewith h of Alzheimer's dementia, schizophrenia, seizure d/o , DVT/PE. the pt is [place] speaking. she is disoriented and disorganized the pt has episodes of agitation. the pt is unable to understand or process the information given to him Allergies: Coded Allergies: NO KNOWN DRUG ALLERGIES (Unverified Allergy, Unknown, 07/29/14) Medication History Scheduled Acidophilus/Bulgaricus (Floranex Tablet), 1 EACH PO BID, (Reported) Apixaban (Eliquis), 5 MG GT BID, (Reported) Aspirin* (Aspir 81*), 81 MG GT DAILY, (Reported) Atorvastatin Calcium* (Lipitor*), 10 MG ORAL BEDTIME, (Reported) Calcitonin,[place],Synthetic (Calcitonin-[place]), 3.7 ML NS DAILY, (Reported) Cholecalciferol (Vitamin D3)* (Vitamin D*), 5,000 UNIT GT DAILY, (Reported) Digoxin* (Lanoxin*), 0.25 MG ORAL DAILY Diltiazem HCl (Diltiazem 12Hr ER), 30 MG ORAL EVERY 6 HOURS Divalproex Sodium* (Depakote*), 250 MG GT Q12HR, (Reported) Docusate Sodium* (Docusate Sodium*), 100 MG GT TWICE A DAY, (Reported) Doxazosin Mesylate* (Cardura*), 2 MG ORAL DAILY, (Reported) Ergocalciferol (Vitamin D2)* (Vitamin D*), 50,000 UNIT ORAL ONCE A WEEK, ( Reported) Ferrous Sulfate* (Ferrous Sulfate*), 325 MG ORAL DAILY, (Reported) Ferrous Sulfate* (Ferrous Sulfate*), 220 MG ORAL DAILY, (Reported) Fluvoxamine Maleate (Fluvoxamine Maleate), 50 MG ORAL BID, (Reported) Folic Acid (Folic Acid), 1 MG ORAL DAILY, (Reported) Lactobacillus Cmb#7/Fos/Inulin (Probiotic Complex Tablet), Unknown Dose PO DAILY , (Reported) Lactulose (Lactulose*), 30 ML ORAL DAILY, (Reported) Levothyroxine Sodium (Synthroid), 50 MCG ORAL DAILY, (Reported) Levothyroxine Sodium* (Levothyroxine Sodium*), 50 MCG ORAL DAILY, (Reported) Lidocaine (Lidocaine), 1,400 MG TP DAILY, (Reported) Memantine Hcl* (Namenda*), 10 MG ORAL TWICE A DAY, (Reported) Memantine Hcl* (Namenda*), 10 MG ORAL TWICE A DAY, (Reported) Multivitamin With Minerals (Multivitamins With Minerals*), 1 TAB ORAL DAILY, ( Reported) Olanzapine* (Zyprexa*), 5 MG ORAL HS, (Reported) Olanzapine* (Zyprexa*), 10 MG ORAL DAILY, (Reported) Olanzapine* (Zyprexa*), 10 MG ORAL BID, (Reported) Raymond-3 Fatty Acids/Fish Oil (Fish Oil 1,000 Mg Capsule), 1 CAP ORAL BID, ( Reported) Pantoprazole* (Pantoprazole*), 40 MG ORAL DAILY, (Reported) Pantoprazole* (Protonix*), 40 MG ORAL DAILY, (Reported) Ranitidine Hcl* (Zantac*), 150 MG ORAL TWICE A DAY, (Reported) Simvastatin (Zocor), 20 MG ORAL BEDTIME, (Reported) Solifenacin Succinate (Vesicare*), 10 MG ORAL HS, (Reported) Scheduled PRN Acetaminophen (Acetaminophen), 650 MG GT Q4HR PRN for Prn Headache/Temp > 101, ( Reported) Albuterol Sulfate* (Albuterol Sulfate Hhn*), 3 ML INH Q4H PRN for Shortness of Breath, (Reported) Hydrocodone Bit/Acetaminophen 10-325* ([place] 10-325*), 1 TAB ORAL Q4H PRN for For Pain, (Reported) Hydrocodone Bit/Acetaminophen 5-325* ([place] 5-325*), 1 TAB ORAL Q4H PRN for For Pain, (Reported) Lorazepam* (Ativan*), 2 MG PO PRN PRN for Agitation, (Reported) Melatonin (Melatonin), 1 MG PO BEDTIME PRN for Insomnia, (Reported) Melatonin (Melatonin), 3 MG ORAL QPM PRN Miscellaneous Medications Glucagon (Glucagen), 1 MG IJ, (Reported) Hydrocodone Bit/Acetaminophen 10-325* ([place] 10-325*), 1 TAB ORAL, (Reported) Lactobacillus Acidophilus (Acidophilus), 1 EACH PO, (Reported) Lactobacillus Acidophilus/Pect (Acidophilus-Pectin Capsule), 1 EACH PO, ( Reported) Patient History Limited by: medical condition History Provided By: Patient, Medical Record Healthcare decision maker Resuscitation status Do Not Resuscitate Advanced Directive on File Past Medical/Surgical History Past Medical/Surgical History: (1) Acute respiratory failure with hypoxia and hypercapnia (2) Acute respiratory failure (3) Hyperkalemia (4) Herpes zoster (5) Anemia (6) Generalized weakness (7) Hallucinations (8) Schizophrenia (9) Seizure disorder (10) Retention of urine (11) Encephalopathy (12) Chronic bronchitis (13) Altered level of consciousness (14) Encounter for PEG (percutaneous endoscopic gastrostomy) (15) History of pulmonary aspiration (16) JUJU (acute kidney injury) (17) Toxic metabolic encephalopathy (18) lives with daughter at home (19) DVT/PE (20) lives at home with daughter (21) Hypercalcemia (22) Hypophosphatemia (23) Hypomagnesemia (24) Multiple pressure ulcers (25) Altered level of consciousness (26) Gastrointestinal hemorrhage (27) GI (gastrointestinal bleed) (28) Dehydration (29) UTI (urinary tract infection) (30) DVT (deep venous thrombosis) (31) GI bleed (32) Gram-positive bacteremia (33) Bright red blood per rectum (34) UTI (urinary tract infection) (35) UTI (urinary tract infection) (36) UTI (lower urinary tract infection) (37) UTI (lower urinary tract infection) (38) Sepsis (39) Acute encephalopathy (40) SVT (supraventricular tachycardia) (41) Dementia (42) Hyponatremia (43) Hypokalemia (44) Diabetes mellitus (45) Infection due to ESBL-producing Escherichia coli (46) Transaminitis Review of Systems Psychiatric: Reports: prior hx, anxiety, depressed feelings, emotional problems , hallucinations Physical Exam General Appearance: alert, confused, mild distress, agitated Last 24 Hour Vital Signs Date Time Temp Pulse Resp B/P (MAP) Pulse Ox O2 Delivery O2 Flow Rate FiO2 02/09/18 21:24 92 137/66 02/09/18 20:17 Room Air 02/09/18 20:00 97.5 92 20 137/66 (89) 94 97.5 02/09/18 19:55 176 02/09/18 19:49 84 02/09/18 16:00 97.0 83 19 125/68 (87) 97 97.0 02/09/18 16:00 88 02/09/18 12:00 97.2 87 18 132/48 (76) 93 97.2 02/09/18 12:00 96 02/09/18 09:00 Room Air 02/09/18 08:00 96 02/09/18 08:00 97.8 99 18 130/77 (94) 93 97.8 02/09/18 04:00 97.1 79 18 105/68 (80) 94 97.1 02/09/18 03:37 82 Intake and Output 02/09/18 02/10/18 19:00 07:00 Intake Total 100 ml 355 ml Balance 100 ml 355 ml IV Total 100 ml 355 ml # Voids 7 # Bowel Movements 6 Laboratory Tests Test 02/09/18 05:35 02/09/18 11:30 02/09/18 14:20 02/09/18 21:15 White Blood Count 8.9 K/UL (4.8-10.8) 8.4 K/UL (4.8-10.8) 8.5 K/UL (4.8-10.8) 8.2 K/UL (4.8-10.8) Red Blood Count 4.65 M/UL (4.20-5.40) 4.93 M/UL (4.20-5.40) 4.61 M/UL (4.20-5.40) 4.31 M/UL (4.20-5.40) Hemoglobin 14.4 G/DL (12.0-16.0) 15.6 G/DL (12.0-16.0) 14.2 G/DL (12.0-16.0) 14.0 G/DL (12.0-16.0) Hematocrit 43.6 % (37.0-47.0) 46.3 % (37.0-47.0) 43.1 % (37.0-47.0) 41.2 % (37.0-47.0) Mean Corpuscular Volume 94 FL (80-99) 94 FL (80-99) 93 FL (80-99) 96 FL ( 80-99) Mean Corpuscular Hemoglobin 31.1 PG (27.0-31.0) H 31.6 PG (27.0-31.0) H 30.7 PG (27.0-31.0) 32.5 PG (27.0-31.0) H Mean Corpuscular Hemoglobin Concent 33.1 G/DL (32.0-36.0) 33.6 G/DL (32.0-36.0) 32.9 G/DL (32.0-36.0) 34.0 G/DL (32.0-36.0) Red Cell Distribution Width 11.5 % (11.6-14.8) L 11.6 % (11.6-14.8) 11.4 % (11.6-14.8) L 11.5 % (11.6-14.8) L Platelet Count 275 K/UL (150-450) 306 K/UL (150-450) 299 K/UL (150-450) 287 K/UL (150-450) Mean Platelet Volume 6.2 FL (6.5-10.1) L 6.7 FL (6.5-10.1) 6.5 FL (6.5-10.1) 6.4 FL (6.5-10.1) L Neutrophils (%) (Auto) 51.9 % (45.0-75.0) 56.0 % (45.0-75.0) 54.5 % (45.0-75.0) 49.1 % (45.0-75.0) Lymphocytes (%) (Auto) 32.6 % (20.0-45.0) 31.4 % (20.0-45.0) 30.7 % (20.0-45.0) 35.2 % (20.0-45.0) Monocytes (%) (Auto) 10.7 % (1.0-10.0) H 9.7 % (1.0-10.0) 11.2 % (1.0-10.0) H 10.6 % (1.0-10.0) H Eosinophils (%) (Auto) 4.0 % (0.0-3.0) H 2.2 % (0.0-3.0) 3.0 % (0.0-3.0) 3.8 % (0.0-3.0) H Basophils (%) (Auto) 0.8 % (0.0-2.0) 0.7 % (0.0-2.0) 0.7 % (0.0-2.0) 1.3 % (0.0-2.0) Sodium Level 139 MMOL/L (136-145) Potassium Level 4.0 MMOL/L (3.5-5.1) Chloride Level 106 MMOL/L (98-107) Carbon Dioxide Level 26 MMOL/L (21-32) Anion Gap 7 mmol/L (5-15) Blood Urea Nitrogen 13 mg/dL (7-18) Creatinine 0.4 MG/DL (0.55-1.30) L Estimat Glomerular Filtration Rate mL/min (>60) Glucose Level 109 MG/DL (74-106) H Calcium Level 9.3 MG/DL (8.5-10.1) Magnesium Level 2.0 MG/DL (1.8-2.4) Total Bilirubin 0.3 MG/DL (0.2-1.0) Aspartate Amino Transf (AST/SGOT) 14 U/L (15-37) L Alanine Aminotransferase (ALT/SGPT) 17 U/L (12-78) Alkaline Phosphatase 81 U/L (46-116) Total Protein 6.8 G/DL (6.4-8.2) Albumin 2.6 G/DL (3.4-5.0) L Globulin 4.2 g/dL Albumin/Globulin Ratio 0.6 (1.0-2.7) L Phosphorus Level 2.7 MG/DL (2.5-4.9) Height (Feet): 5 Height (Inches): 6.00 Weight (Pounds): 135 Medications Current Medications Medications (Trade) Dose Ordered Sig/Jacque Route PRN Reason Start Time Stop Time Status Last Admin Dose Admin Acetaminophen (Tylenol) 650 mg Q4H PRN GT Mild Pain (Pain Scale 1-3) 02/09/18 10:34 03/11/18 10:33 Acetaminophen (Tylenol) 650 mg Q4H PRN ORAL T>100.5 02/08/18 15:30 03/10/18 15:29 Atorvastatin Calcium (Lipitor) 20 mg BEDTIME GT 02/08/18 21:00 03/10/18 20:59 02/09/18 21:23 Bisacodyl (Dulcolax) 10 mg HSPRN PRN RECTAL Constipation 02/08/18 15:30 03/10/18 15:29 Ceftriaxone Sodium 2 gm/ Dextrose 55 ml @ 110 mls/hr Q24H IVPB 02/08/18 18:00 02/15/18 17:59 02/09/18 17:25 Dextrose (Dextrose 50%) 25 ml Q30M PRN IV Hypoglycemia 02/08/18 15:30 03/10/18 15:29 Dextrose (Dextrose 50%) 50 ml Q30M PRN IV Hypoglycemia 02/08/18 15:30 03/10/18 15:29 Diltiazem HCl (Cardizem) 60 mg EVERY 8 HOURS ORAL 02/09/18 22:00 03/11/18 21:59 02/09/18 21:24 Lansoprazole (Prevacid) 30 mg DAILY GT 02/10/18 09:00 03/12/18 08:59 Levothyroxine Sodium (Synthroid) 50 mcg DAILY@0630 GT 02/09/18 06:30 03/11/18 06:29 02/09/18 06:11 Magnesium Hydroxide (Mom) 30 ml HSPRN PRN GT Constipation 02/09/18 21:00 03/11/18 20:59 Ondansetron HCl (Zofran) 4 mg Q6H PRN IVP Nausea & Vomiting 02/08/18 15:30 03/10/18 15:29 Sodium Chloride 1,000 ml @ 100 mls/hr Q10H IVLG 02/08/18 16:00 03/10/18 15:59 02/09/18 21:24 Assessment/Plan Problem List: (1) Schizophrenia ICD Codes: F20.9 - Schizophrenia, unspecified SNOMED: 22725887 (2) Dementia ICD Codes: F03.90 - Dementia SNOMED: 38382425 Assessment/Plan depakote ativan prn riperdal prn Burak Viera MD Feb 10, 2018 00:02
[2018-02-10 03:52] LABS: BASOPHILS % (AUTO) 0.9 % (0.0-2.0); HEMATOCRIT 39.1 % (37.0-47.0); HEMOGLOBIN 13.3 G/DL (12.0-16.0); LYMPHOCYTES % (AUTO) 34.2 % (20.0-45.0); MEAN CORPUSCULAR VOLUME 92 FL (80-99); MONOCYTES % (AUTO) 10.2 % (1.0-10.0); NEUTROPHILS % (AUTO) 49.7 % (45.0-75.0); PLATELET COUNT 258 K/UL (150-450); RED BLOOD COUNT 4.23 M/UL (4.20-5.40); RED CELL DISTRIBUTION WIDTH 11.2 % (11.6-14.8); WHITE BLOOD COUNT 7.9 K/UL (4.8-10.8)
[2018-02-10 04:00] VITALS: BP 128/62
[2018-02-10 04:02] LABS: ANION GAP 6 mmol/L (5-15); BLOOD UREA NITROGEN 10 mg/dL (7-18); CALCIUM 8.9 MG/DL (8.5-10.1); CARBON DIOXIDE 25 MMOL/L (21-32); CHLORIDE 108 MMOL/L (98-107); CREATININE 0.3 MG/DL (0.55-1.30); POTASSIUM 3.5 MMOL/L (3.5-5.1); SODIUM 139 MMOL/L (136-145)
[2018-02-10 05:37] VITALS: BP 113/56
[2018-02-10] MEDS: dilTIAZem HCl 60mg tab ORAL SCH ×3 (05:42→21:11)
[2018-02-10 08:00] VITALS: BP 103/44
--- NOTE | 2018-02-10 08:06 | General Progress Note ---
Assessment/Plan Problem List: (1) S/P percutaneous endoscopic gastrostomy (PEG) tube placement ICD Codes: Z93.1 - Gastrostomy status SNOMED: 538860582 (2) Dementia ICD Codes: F03.90 - Dementia SNOMED: 72923648 (3) SVT (supraventricular tachycardia) ICD Codes: I47.1 - SVT (supraventricular tachycardia) SNOMED: 3627192 (4) GI bleed ICD Codes: K92.2 - Gastrointestinal hemorrhage, unspecified SNOMED: 94302848 Assessment/Plan no recurrent GIB had BM on GTF Subjective ROS Limited/Unobtainable: No Allergies: Coded Allergies: NO KNOWN DRUG ALLERGIES (Unverified Allergy, Unknown, 07/29/14) Subjective svt last night Objective Last 24 Hour Vital Signs Date Time Temp Pulse Resp B/P (MAP) Pulse Ox O2 Delivery O2 Flow Rate FiO2 02/10/18 05:42 71 113/56 02/10/18 05:37 71 113/56 (75) 02/10/18 04:00 98.2 72 20 128/62 (84) 96 98.2 02/10/18 03:43 76 02/10/18 00:00 97.5 84 20 120/59 (79) 92 97.5 02/09/18 23:30 86 02/09/18 21:24 92 137/66 02/09/18 20:17 Room Air 02/09/18 20:00 97.5 92 20 137/66 (89) 94 97.5 02/09/18 19:55 176 02/09/18 19:49 84 02/09/18 16:00 97.0 83 19 125/68 (87) 97 97.0 02/09/18 16:00 88 02/09/18 12:00 97.2 87 18 132/48 (76) 93 97.2 02/09/18 12:00 96 02/09/18 09:00 Room Air Intake and Output 02/09/18 02/10/18 19:00 07:00 Intake Total 200 ml 2125 ml Balance 200 ml 2125 ml Free Water 40 ml 410 ml IV Total 100 ml 1055 ml Tube Feeding 60 ml 660 ml # Voids 7 3 # Bowel Movements 6 Laboratory Tests 02/09/18 11:30: White Blood Count 8.4, Red Blood Count 4.93, Hemoglobin 15.6, Hematocrit 46.3, Mean Corpuscular Volume 94, Mean Corpuscular Hemoglobin 31.6H, Mean Corpuscular Hemoglobin Concent 33.6, Red Cell Distribution Width 11.6, Platelet Count 306, Mean Platelet Volume 6.7, Neutrophils (%) (Auto) 56.0, Lymphocytes (%) (Auto) 31.4, Monocytes (%) (Auto) 9.7, Eosinophils (%) (Auto) 2.2, Basophils (%) (Auto ) 0.7 02/09/18 14:20: White Blood Count 8.5, Red Blood Count 4.61, Hemoglobin 14.2, Hematocrit 43.1, Mean Corpuscular Volume 93, Mean Corpuscular Hemoglobin 30.7, Mean Corpuscular Hemoglobin Concent 32.9, Red Cell Distribution Width 11.4L, Platelet Count 299, Mean Platelet Volume 6.5, Neutrophils (%) (Auto) 54.5, Lymphocytes (%) (Auto) 30.7, Monocytes (%) (Auto) 11.2H, Eosinophils (%) (Auto) 3.0, Basophils (%) ( Auto) 0.7, Phosphorus Level 2.7 02/09/18 21:15: White Blood Count 8.2, Red Blood Count 4.31, Hemoglobin 14.0, Hematocrit 41.2, Mean Corpuscular Volume 96, Mean Corpuscular Hemoglobin 32.5H, Mean Corpuscular Hemoglobin Concent 34.0, Red Cell Distribution Width 11.5L, Platelet Count 287, Mean Platelet Volume 6.4L, Neutrophils (%) (Auto) 49.1, Lymphocytes (%) (Auto) 35.2, Monocytes (%) (Auto) 10.6H, Eosinophils (%) (Auto) 3.8H, Basophils (%) ( Auto) 1.3 02/10/18 02:05: White Blood Count 7.9, Red Blood Count 4.23, Hemoglobin 13.3, Hematocrit 39.1, Mean Corpuscular Volume 92, Mean Corpuscular Hemoglobin 31.5H, Mean Corpuscular Hemoglobin Concent 34.1, Red Cell Distribution Width 11.2L, Platelet Count 258, Mean Platelet Volume 6.1L, Neutrophils (%) (Auto) 49.7, Lymphocytes (%) (Auto) 34.2, Monocytes (%) (Auto) 10.2H, Eosinophils (%) (Auto) 5.0H, Basophils (%) ( Auto) 0.9, Sodium Level 139, Potassium Level 3.5, Chloride Level 108H, Carbon Dioxide Level 25, Anion Gap 6, Blood Urea Nitrogen 10, Creatinine 0.3L, Estimat Glomerular Filtration Rate , Glucose Level 100, Calcium Level 8.9, Magnesium Level 1.7L 02/10/18 04:45: Potassium Level 4.1 Height (Feet): 5 Height (Inches): 6.00 Weight (Pounds): 135 General Appearance: no apparent distress EENT: normal ENT inspection Neck: supple Cardiovascular: normal rate Respiratory/Chest: decreased breath sounds Abdomen: normal bowel sounds, non tender, soft Extremities: non-tender Gino Morales MD Feb 10, 2018 08:06
[2018-02-10 10:16] LABS: EOSINOPHILS % (AUTO) 5.3 % (0.0-3.0); HEMATOCRIT 44.4 % (37.0-47.0); HEMOGLOBIN 14.5 G/DL (12.0-16.0); LYMPHOCYTES % (AUTO) 36.1 % (20.0-45.0); MEAN CORPUSCULAR VOLUME 94 FL (80-99); MONOCYTES % (AUTO) 9.2 % (1.0-10.0); NEUTROPHILS % (AUTO) 48.5 % (45.0-75.0); PLATELET COUNT 288 K/UL (150-450); RED CELL DISTRIBUTION WIDTH 11.5 % (11.6-14.8); WHITE BLOOD COUNT 8.7 K/UL (4.8-10.8)
[2018-02-10] MEDS ORDERED: Vancomycin 1gm/D5W 275ml IVPB ONE ×2 (10:30)
--- NOTE | 2018-02-10 12:04 | Cardiology Report ---
APPROVED REPORT EKG Measurement Heart [id number] Sinus rhythm with premature supraventricular complexes and with frequent premature ventricular complexes T wave abnormality, consider anterolateral ischemia Prolonged QT Abnormal ECG
--- NOTE | 2018-02-10 15:31 | General Progress Note ---
Assessment/Plan Assessment/Plan Gram positive bacteremia, 2/2 bottles (Urine cx w/ GN org) - start vanco per pharmacy - ID consult, dr Sanchez - follow Cx sens BRBPR - suspect 2/2 hemorrhoids - IVF - monitor overnight with serial h/h - transfuse for hgb < 7; suspect downtrend in hgb because patient is very dry - appreciate GI reqs - elaquis has been held since December UTI - c/w rocephin - follow Cx sens SVT - cardiology consult, sharlene abebe - will consider dig of SVT persistent - quality assurance monitor body H/O DVT - patient is bedbound - if patient shows no signs of bleeding, will restart elaquis Dehydration - TF through GT w FWF - IVF's Hypothyroid - levothyroxine 50 mcg Code status: FULL I spent 42 minutes for patient care, 26 min was dedicated to counseling and or care coordination. Subjective Date patient seen: Feb 10, 2018 Allergies: Coded Allergies: NO KNOWN DRUG ALLERGIES (Unverified Allergy, Unknown, 07/29/14) Subjective AVSS no BRBPR evaluated by cards, started on CCB prelim 2/2 blood cx GPC, started on vanco Poor historian Objective Last 24 Hour Vital Signs Date Time Temp Pulse Resp B/P (MAP) Pulse Ox O2 Delivery O2 Flow Rate FiO2 02/10/18 13:32 79 103/44 02/10/18 09:00 Room Air 02/10/18 08:00 97.2 82 19 103/44 (63) 96 97.2 02/10/18 08:00 73 02/10/18 05:42 71 113/56 02/10/18 05:37 71 113/56 (75) 02/10/18 04:00 98.2 72 20 128/62 (84) 96 98.2 02/10/18 03:43 76 02/10/18 00:00 97.5 84 20 120/59 (79) 92 97.5 02/09/18 23:30 86 02/09/18 21:24 92 137/66 02/09/18 20:17 Room Air 02/09/18 20:00 97.5 92 20 137/66 (89) 94 97.5 02/09/18 19:55 176 02/09/18 19:49 84 02/09/18 16:00 97.0 83 19 125/68 (87) 97 97.0 02/09/18 16:00 88 Intake and Output 02/09/18 02/10/18 19:00 07:00 Intake Total 200 ml 2125 ml Balance 200 ml 2125 ml Free Water 40 ml 410 ml IV Total 100 ml 1055 ml Tube Feeding 60 ml 660 ml # Voids 7 3 # Bowel Movements 6 Laboratory Tests 02/09/18 21:15: White Blood Count 8.2, Red Blood Count 4.31, Hemoglobin 14.0, Hematocrit 41.2, Mean Corpuscular Volume 96, Mean Corpuscular Hemoglobin 32.5H, Mean Corpuscular Hemoglobin Concent 34.0, Red Cell Distribution Width 11.5L, Platelet Count 287, Mean Platelet Volume 6.4L, Neutrophils (%) (Auto) 49.1, Lymphocytes (%) (Auto) 35.2, Monocytes (%) (Auto) 10.6H, Eosinophils (%) (Auto) 3.8H, Basophils (%) ( Auto) 1.3 02/10/18 02:05: White Blood Count 7.9, Red Blood Count 4.23, Hemoglobin 13.3, Hematocrit 39.1, Mean Corpuscular Volume 92, Mean Corpuscular Hemoglobin 31.5H, Mean Corpuscular Hemoglobin Concent 34.1, Red Cell Distribution Width 11.2L, Platelet Count 258, Mean Platelet Volume 6.1L, Neutrophils (%) (Auto) 49.7, Lymphocytes (%) (Auto) 34.2, Monocytes (%) (Auto) 10.2H, Eosinophils (%) (Auto) 5.0H, Basophils (%) ( Auto) 0.9, Sodium Level 139, Potassium Level 3.5, Chloride Level 108H, Carbon Dioxide Level 25, Anion Gap 6, Blood Urea Nitrogen 10, Creatinine 0.3L, Estimat Glomerular Filtration Rate , Glucose Level 100, Calcium Level 8.9, Magnesium Level 1.7L 02/10/18 04:45: Potassium Level 4.1 02/10/18 08:10: White Blood Count 8.7, Red Blood Count 4.70, Hemoglobin 14.5, Hematocrit 44.4, Mean Corpuscular Volume 94, Mean Corpuscular Hemoglobin 30.9, Mean Corpuscular Hemoglobin Concent 32.7, Red Cell Distribution Width 11.5L, Platelet Count 288, Mean Platelet Volume 6.0L, Neutrophils (%) (Auto) 48.5, Lymphocytes (%) (Auto) 36.1, Monocytes (%) (Auto) 9.2, Eosinophils (%) (Auto) 5.3H, Basophils (%) (Auto ) 1.0 Height (Feet): 5 Height (Inches): 6.00 Weight (Pounds): 135 Objective General Appearance: no apparent distress, confused, other - thin female, muscle wasting HEENT: normocephalic, atraumatic, anicteric, other - very dry mucous membranes , temporal muscle wasting Neck: non-tender, normal alignment, supple, normal inspection Respiratory/Chest: chest wall non-tender, lungs clear, normal breath sounds, no respiratory distress Cardiovascular/Chest: normal peripheral pulses, normal rate, regular rhythm, regularly irregular, no gallop/murmur, no JVD Abdomen: non tender, soft, no organomegaly, no mass, abnormal bowel sounds, feeding tube - c/d/i Extremities: non-tender, normal inspection, no calf tenderness Skin Exam: warm/dry, no diaphoresis Neurologic: other - unable to assess patients full neurologic status. unable to appreciate dtr's pm b/l l/e, patient does not follow commands, no tremors, no clonus , answers only in mumbles and "dinesh, briseyda montiel Joshua F MD Feb 10, 2018 15:31
[2018-02-10 16:00] VITALS: BP 129/51
--- NOTE | 2018-02-10 17:12 | Infectious Diseases Prog Note ---
Assessment/Plan Assessment/Plan Full consult dictated: A) 1) possible gram + bacteremia, gram neg uti, possible sepsis 2) mrsa and vre colonization 3) pmh noted P) 1) vancomycin and rocephin 2) check cultures, labs 3) thank you Subjective Allergies: Coded Allergies: NO KNOWN DRUG ALLERGIES (Unverified Allergy, Unknown, 07/29/14) Objective Vital Signs Last 24 Hour Vital Signs Date Time Temp Pulse Resp B/P (MAP) Pulse Ox O2 Delivery O2 Flow Rate FiO2 02/10/18 13:32 79 103/44 02/10/18 09:00 Room Air 02/10/18 08:00 97.2 82 19 103/44 (63) 96 97.2 02/10/18 08:00 73 02/10/18 05:42 71 113/56 02/10/18 05:37 71 113/56 (75) 02/10/18 04:00 98.2 72 20 128/62 (84) 96 98.2 02/10/18 03:43 76 02/10/18 00:00 97.5 84 20 120/59 (79) 92 97.5 02/09/18 23:30 86 02/09/18 21:24 92 137/66 02/09/18 20:17 Room Air 02/09/18 20:00 97.5 92 20 137/66 (89) 94 97.5 02/09/18 19:55 176 02/09/18 19:49 84 Height (Feet): 5 Height (Inches): 6.00 Weight (Pounds): 135 Microbiology Date/Time Source Procedure Growth Status 02/08/18 18:30 Blood Blood Culture - Preliminary Gram Positive Cocci Resulted 02/08/18 18:15 Blood Blood Culture - Preliminary Gram Positive Cocci Resulted 02/08/18 12:39 Nasal Nares MRSA Culture - Final Staphylococcus Aureus - Mrsa Complete 02/08/18 12:08 Urine,Clean Catch Urine Culture - Preliminary Gram Negative Osito Resulted 02/08/18 12:39 Rectum - Final NO CARBAPENEM-RESISTANT ENTEROBACTERI... Complete 02/08/18 12:39 Rectum VRE Culture - Final Enterococcus Faecalis - Vre Enterococcus Faecium - Vre Complete Laboratory Tests Test 02/09/18 21:15 02/10/18 02:05 02/10/18 04:45 02/10/18 08:10 White Blood Count 8.2 K/UL (4.8-10.8) 7.9 K/UL (4.8-10.8) 8.7 K/UL (4.8-10.8) Red Blood Count 4.31 M/UL (4.20-5.40) 4.23 M/UL (4.20-5.40) 4.70 M/UL (4.20-5.40) Hemoglobin 14.0 G/DL (12.0-16.0) 13.3 G/DL (12.0-16.0) 14.5 G/DL (12.0-16.0) Hematocrit 41.2 % (37.0-47.0) 39.1 % (37.0-47.0) 44.4 % (37.0-47.0) Mean Corpuscular Volume 96 FL (80-99) 92 FL (80-99) 94 FL (80-99) Mean Corpuscular Hemoglobin 32.5 PG (27.0-31.0) H 31.5 PG (27.0-31.0) H 30.9 PG (27.0-31.0) Mean Corpuscular Hemoglobin Concent 34.0 G/DL (32.0-36.0) 34.1 G/DL (32.0-36.0) 32.7 G/DL (32.0-36.0) Red Cell Distribution Width 11.5 % (11.6-14.8) L 11.2 % (11.6-14.8) L 11.5 % (11.6-14.8) L Platelet Count 287 K/UL (150-450) 258 K/UL (150-450) 288 K/UL (150-450) Mean Platelet Volume 6.4 FL (6.5-10.1) L 6.1 FL (6.5-10.1) L 6.0 FL (6.5-10.1) L Neutrophils (%) (Auto) 49.1 % (45.0-75.0) 49.7 % (45.0-75.0) 48.5 % (45.0-75.0) Lymphocytes (%) (Auto) 35.2 % (20.0-45.0) 34.2 % (20.0-45.0) 36.1 % (20.0-45.0) Monocytes (%) (Auto) 10.6 % (1.0-10.0) H 10.2 % (1.0-10.0) H 9.2 % (1.0-10.0) Eosinophils (%) (Auto) 3.8 % (0.0-3.0) H 5.0 % (0.0-3.0) H 5.3 % (0.0-3.0) H Basophils (%) (Auto) 1.3 % (0.0-2.0) 0.9 % (0.0-2.0) 1.0 % (0.0-2.0) Sodium Level 139 MMOL/L (136-145) Potassium Level 3.5 MMOL/L (3.5-5.1) 4.1 MMOL/L (3.5-5.1) Chloride Level 108 MMOL/L (98-107) H Carbon Dioxide Level 25 MMOL/L (21-32) Anion Gap 6 mmol/L (5-15) Blood Urea Nitrogen 10 mg/dL (7-18) Creatinine 0.3 MG/DL (0.55-1.30) L Estimat Glomerular Filtration Rate mL/min (>60) Glucose Level 100 MG/DL (74-106) Calcium Level 8.9 MG/DL (8.5-10.1) Magnesium Level 1.7 MG/DL (1.8-2.4) L Current Medications Medications (Trade) Dose Ordered Sig/Jacque Route PRN Reason Start Time Stop Time Status Last Admin Dose Admin Acetaminophen (Tylenol) 650 mg Q4H PRN GT Mild Pain (Pain Scale 1-3) 02/09/18 10:34 03/11/18 10:33 Acetaminophen (Tylenol) 650 mg Q4H PRN ORAL T>100.5 02/08/18 15:30 03/10/18 15:29 Atorvastatin Calcium (Lipitor) 20 mg BEDTIME GT 02/08/18 21:00 03/10/18 20:59 02/09/18 21:23 Bisacodyl (Dulcolax) 10 mg HSPRN PRN RECTAL Constipation 02/08/18 15:30 03/10/18 15:29 Ceftriaxone Sodium 2 gm/ Dextrose 55 ml @ 110 mls/hr Q24H IVPB 02/08/18 18:00 02/15/18 17:59 02/09/18 17:25 Dextrose (Dextrose 50%) 25 ml Q30M PRN IV Hypoglycemia 02/08/18 15:30 03/10/18 15:29 Dextrose (Dextrose 50%) 50 ml Q30M PRN IV Hypoglycemia 02/08/18 15:30 03/10/18 15:29 Diltiazem HCl (Cardizem) 60 mg EVERY 8 HOURS ORAL 02/09/18 22:00 03/11/18 21:59 02/10/18 13:32 Lansoprazole (Prevacid) 30 mg DAILY GT 02/10/18 09:00 03/12/18 08:59 02/10/18 09:16 Levothyroxine Sodium (Synthroid) 50 mcg DAILY@0630 GT 02/09/18 06:30 03/11/18 06:29 02/10/18 05:42 Magnesium Hydroxide (Mom) 30 ml HSPRN PRN GT Constipation 02/09/18 21:00 03/11/18 20:59 Ondansetron HCl (Zofran) 4 mg Q6H PRN IVP Nausea & Vomiting 02/08/18 15:30 03/10/18 15:29 Sodium Chloride 1,000 ml @ 100 mls/hr Q10H IVLG 02/08/18 16:00 03/10/18 15:59 02/10/18 09:16 Vancomycin HCl (Vanco rx to dose) 1 ea DAILY PRN MISC Per rx protocol 02/10/18 09:15 03/12/18 09:14 Vancomycin/Sodium Chloride 250 ml @ 166.667 mls/hr Q24H IVPB 02/11/18 10:30 02/16/18 10:29 Agusto Orr MD Feb 10, 2018 17:12
[2018-02-10] MEDS: cefTRIAXone 2 GM in D5W 55 ML IVPB SCH (17:58)
[2018-02-10 20:00] VITALS: BP 148/74
--- NOTE | 2018-02-10 21:00 | Consultation ---
DATE OF CONSULTATION: 02/10/2018 INFECTIOUS DISEASES CONSULTATION CONSULTING PHYSICIAN: Agusto Orr M.D. ATTENDING PHYSICIAN: María Bustamante M.D. REFERRING PHYSICIAN: Yonatan Hood M.D. REASON FOR CONSULTATION: Gram-positive bacteremia, gram-negative UTI, possible sepsis. CHIEF COMPLAINT: The patient's chief complaint coming in to the hospital is GI bleed. HISTORY OF PRESENT ILLNESS: This is an 87-year-old female, who comes into [facility] with what looks like possible GI bleed. The patient was seen by GI and is status post PEG placement and EGD, I believe. It looks like GI bleed was secondary to hemorrhoids. It looks like the patient has history of PEG tube, but I am not clear if she has had a recent endoscopy. The patient's workup shows that she has gram-positive blood cultures, 3/4 and possibly gram-positive bacteremia and sepsis. She also has gram-negative UTI. She also colonized MRSA and VRE. Infectious Diseases consultation was requested for antibiotic management. The patient is currently on vancomycin and Rocephin. The patient is not a very good historian. She has no central line or Camacho. As discussed, she came in with GI bleed. MAR was noted. Orders were noted. Notes were reviewed. The patient will be continued on vancomycin and Rocephin for now. REVIEW OF SYSTEMS: CONSTITUTIONAL: The patient has generalized fatigue and weakness, but no new focal weakness. She has no central line. No Camacho. She has a peripheral IV. She is responsive. No fever or chills. HEAD AND NECK: No head pain or neck pain. No neck stiffness. CARDIAC: No chest pain. No pressors. GASTROINTESTINAL: No nausea, vomiting, or diarrhea. She came in with GI bleed. She has some abdominal discomfort. PULMONARY: No congestion, shortness of breath, hemoptysis, or secretions. SKIN: No rash or itching. EXTREMITIES: No extremity pain. NEUROLOGIC: No seizures. She has generalized weakness and fatigue. PAST MEDICAL HISTORY: Includes history of the following. The patient has past medical history of hemorrhoids and GI bleed as discussed. She has other past medical history of SVT. She has history of DVT, history of dehydration, history of hypothyroidism. She is a Full Code presently. She has history of pulmonary embolism. She has history of seizures, dementia, schizophrenia, Alzheimer disease, SVT, TIA, CVA, anxiety, asthma. She does have history of diabetes, G-tube, dysphagia, and GERD. She also has history of hypothyroidism and hyperlipidemia. I am not sure if she has history of hypertension, but she is on blood pressure medication. She could have history of hypertension also. ALLERGIES: No known drug allergies. No antibiotic allergies. SOCIAL HISTORY: Negative for smoking, alcohol, or drug abuse. FAMILY HISTORY: Noncontributory. Negative for exposure to tuberculosis or cancer. MEDICATIONS: Upon reviewing the MAR, she is on the following medications. She is on Prevacid, lisinopril. She is on diltiazem or Cardizem. She is on levothyroxine or Synthroid. She is on atorvastatin, Rocephin, vancomycin, sodium chloride, acetaminophen, bisacodyl. She is on Zofran. Outside medications were also noted and reconciliated. PHYSICAL EXAMINATION: VITAL SIGNS: Temperature 97.0, pulse rate 81, respiratory rate 19, blood pressure 129/61, O2 saturation 96% on room air. Heart rate has been as high as 99-176 and her respiratory rate has been as high as 27. GENERAL: Alert and responsive. Poor historian, but is responsive. HEAD AND NECK: Oral exam, no thrush. Eye exam, no icterus. Neck is supple. No JVD. Normocephalic. No icterus or thrush. LUNGS: Clear bilaterally. No rhonchi or rales. HEART: Regular. No obvious gallop or murmur. Occasionally irregular. ABDOMEN: Soft. Positive bowel sounds. Nontender. No rebound. SKIN: No rash. MUSCULOSKELETAL: No effusion. Legs are without cellulitis. PERIPHERAL VASCULAR: No gangrene. No cyanosis. GENITOURINARY: No Camacho. No CVA tenderness. LINES: Line sites without phlebitis. She has peripheral IV. NEUROLOGIC: Generalized weakness and responsive. LABORATORY AND DIAGNOSTIC DATA: Creatinine 0.3. LFTs were noted. White count 8.7, hemoglobin 14.5. Urinalysis had 3+ leukocyte esterase, too many to count white blood cells, many bacteria. Cultures, MRSA and VRE screens are positive. Blood cultures, 3/4 gram-positive organisms, identification is pending. Urine culture, greater than 100,000 gram-negative rods. Chest x-ray imaging shows atelectasis at the right basilar area. ASSESSMENT AND PLAN: 1. The patient has possible gram-positive bacteremia, possible sepsis. She has gram-negative UTI, likely has complicated UTI. Continue vancomycin and Rocephin for gram-positive bacteremia and sepsis and gram-negative UTI, complicated UTI. Check blood cultures and urine culture. Followup blood cultures and laboratories. Chest x-ray showed atelectasis. Await results. Continue vancomycin and Rocephin for gram-positive bacteremia and gram-negative UTI for now. 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 3. Possible hypertension. She is on blood pressure medication. 4. Diabetes. 5. Dysphagia, G-tube. 6. Dementia. 7. Alzheimer's. 8. Seizure disorder. 9. DVT and PE history. 10. SVT. 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 12. Asthma. 13. Anxiety. 14. Diabetes and hypertension, treatment per primary. 15. Hyperlipidemia. 16. Hypothyroidism. 17. Anemia. 18. GI bleed. 19. Past medical history noted. 20. Social history negative. 21. Family history noncontributory. 22. Allergies are negative. 23. MAR was noted. 24. Case discussed with RN. 25. Continue treatment per primary consultants. 26. Notes and records were noted. 27. Orders were entered. Agusto Orr M.D. DR: Perry JOB#: [id number] CC:
[2018-02-10] MEDS: Atorvastatin 20mg tab GT SCH (21:11)
[2018-02-11] VITALS: BP 119/56
[2018-02-11 04:00] VITALS: BP 116/58
[2018-02-11] MEDS: dilTIAZem HCl 60mg tab ORAL SCH ×3 (05:38→21:22)
--- NOTE | 2018-02-11 06:41 | Consultation ---
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 Unable to get history from patient 2/2 dementia even when spoken to in [place]. Patient also was found to have a + UA. History obtained from EMR. Per detention patient had an episode of BRBPR in december and since then her elaquis has been held however she had another episode last night and [place] therefore [place] [facility] [place] Noted to have hemorrhoids and per gi most likely brbpr is related to that. Daughter Erin Gee [phone] Patient FULL CODE ALL: NKDA MEDS: (per detention ) Elaquis on HOLD 2 bleed Depakote 250 mg po BID Memantine 10 Asa 81 mg po daily Levothyroxine Lactulose Melatonin prn Protonix Vit c Albuterol prn Ferrous sulfate PMH: Alzheimer's dementia, schizophrenia, seizure d/o, DVT/PE (on eqiluis?), pSVT, TIA/CVA, asthma, anxiety, recurrent aspiration pneumonia PSH: intubation 03/2017, s/p PEG 04/11/17 Allergies: Coded Allergies: NO KNOWN DRUG ALLERGIES (Unverified Allergy, Unknown, 07/29/14) Medication History Scheduled Acidophilus/Bulgaricus (Floranex Tablet), 1 EACH PO BID, (Reported) Apixaban (Eliquis), 5 MG GT BID, (Reported) Aspirin* (Aspir 81*), 81 MG GT DAILY, (Reported) Atorvastatin Calcium* (Lipitor*), 10 MG ORAL BEDTIME, (Reported) Calcitonin,[place],Synthetic (Calcitonin-[place]), 3.7 ML NS DAILY, (Reported) Cholecalciferol (Vitamin D3)* (Vitamin D*), 5,000 UNIT GT DAILY, (Reported) Digoxin* (Lanoxin*), 0.25 MG ORAL DAILY Diltiazem HCl (Diltiazem 12Hr ER), 30 MG ORAL EVERY 6 HOURS Divalproex Sodium* (Depakote*), 250 MG GT Q12HR, (Reported) Docusate Sodium* (Docusate Sodium*), 100 MG GT TWICE A DAY, (Reported) Doxazosin Mesylate* (Cardura*), 2 MG ORAL DAILY, (Reported) Ergocalciferol (Vitamin D2)* (Vitamin D*), 50,000 UNIT ORAL ONCE A WEEK, ( Reported) Ferrous Sulfate* (Ferrous Sulfate*), 325 MG ORAL DAILY, (Reported) Ferrous Sulfate* (Ferrous Sulfate*), 220 MG ORAL DAILY, (Reported) Fluvoxamine Maleate (Fluvoxamine Maleate), 50 MG ORAL BID, (Reported) Folic Acid (Folic Acid), 1 MG ORAL DAILY, (Reported) Lactobacillus Cmb#7/Fos/Inulin (Probiotic Complex Tablet), Unknown Dose PO DAILY , (Reported) Lactulose (Lactulose*), 30 ML ORAL DAILY, (Reported) Levothyroxine Sodium (Synthroid), 50 MCG ORAL DAILY, (Reported) Levothyroxine Sodium* (Levothyroxine Sodium*), 50 MCG ORAL DAILY, (Reported) Lidocaine (Lidocaine), 1,400 MG TP DAILY, (Reported) Memantine Hcl* (Namenda*), 10 MG ORAL TWICE A DAY, (Reported) Memantine Hcl* (Namenda*), 10 MG ORAL TWICE A DAY, (Reported) Multivitamin With Minerals (Multivitamins With Minerals*), 1 TAB ORAL DAILY, ( Reported) Olanzapine* (Zyprexa*), 5 MG ORAL HS, (Reported) Olanzapine* (Zyprexa*), 10 MG ORAL DAILY, (Reported) Olanzapine* (Zyprexa*), 10 MG ORAL BID, (Reported) [place]-3 Fatty Acids/Fish Oil (Fish Oil 1,000 Mg Capsule), 1 CAP ORAL BID, ( Reported) Pantoprazole* (Pantoprazole*), 40 MG ORAL DAILY, (Reported) Pantoprazole* (Protonix*), 40 MG ORAL DAILY, (Reported) Ranitidine Hcl* (Zantac*), 150 MG ORAL TWICE A DAY, (Reported) Simvastatin (Zocor), 20 MG ORAL BEDTIME, (Reported) Solifenacin Succinate (Vesicare*), 10 MG ORAL HS, (Reported) Scheduled PRN Acetaminophen (Acetaminophen), 650 MG GT Q4HR PRN for Prn Headache/Temp > 101, ( Reported) Albuterol Sulfate* (Albuterol Sulfate Hhn*), 3 ML INH Q4H PRN for Shortness of Breath, (Reported) Hydrocodone Bit/Acetaminophen 10-325* ([place] 10-325*), 1 TAB ORAL Q4H PRN for For Pain, (Reported) Hydrocodone Bit/Acetaminophen 5-325* ([place] 5-325*), 1 TAB ORAL Q4H PRN for For Pain, (Reported) Lorazepam* (Ativan*), 2 MG PO PRN PRN for Agitation, (Reported) Melatonin (Melatonin), 1 MG PO BEDTIME PRN for Insomnia, (Reported) Melatonin (Melatonin), 3 MG ORAL QPM PRN Miscellaneous Medications Glucagon (Glucagen), 1 MG IJ, (Reported) Hydrocodone Bit/Acetaminophen 10-325* ([place] 10-325*), 1 TAB ORAL, (Reported) Lactobacillus Acidophilus (Acidophilus), 1 EACH PO, (Reported) Lactobacillus Acidophilus/Pect (Acidophilus-Pectin Capsule), 1 EACH PO, ( Reported) Patient History Healthcare decision maker Resuscitation status Advanced Directive on File Patient History Narrative Alzheimer's dementia, schizophrenia, seizure d/o, DVT/PE (on eqiluis?), pSVT, TIA/CVA, asthma, anxiety, recurrent aspiration pneumonia, Family History Family History: Patient reports no known family medical history. Review of Systems ROS Narrative unable to obtain MANDIE 2/2 dementia Physical Exam Last 24 Hour Vital Signs Date Time Temp Pulse Resp B/P (MAP) Pulse Ox O2 Delivery O2 Flow Rate FiO2 02/11/18 05:38 73 116/58 02/11/18 04:00 73 02/11/18 04:00 97.1 72 20 116/58 (77) 97 97.1 02/11/18 00:00 97.8 81 20 119/56 (77) 95 97.8 02/11/18 00:00 81 02/10/18 21:11 87 148/74 02/10/18 21:00 Room Air 02/10/18 20:00 77 02/10/18 20:00 97.9 87 20 148/74 (98) 96 97.9 02/10/18 16:00 84 02/10/18 16:00 97.0 81 19 129/51 (77) 96 97.0 02/10/18 13:32 79 103/44 02/10/18 12:00 86 02/10/18 09:00 Room Air 02/10/18 08:00 97.2 82 19 103/44 (63) 96 97.2 02/10/18 08:00 73 General Appearance: no apparent distress, confused, other - thin female HEENT: normocephalic, atraumatic, anicteric, other - very dry mucous membranes Neck: non-tender, normal alignment, supple, normal inspection Respiratory/Chest: chest wall non-tender, lungs clear, normal breath sounds, no respiratory distress Cardiovascular/Chest: normal peripheral pulses, irregular rate Abdomen: non tender, soft, no organomegaly, no mass, abnml BS, feeding tube - c/d/i Extremities: non-tender, normal inspection Skin Exam: warm/dry, no diaphoresis Neurologic: unable to appreciate dtr's pm b/l l/e Height (Feet): 5 Height (Inches): 6.00 Weight (Pounds): 135 Medications Current Medications Medications (Trade) Dose Ordered Sig/Jacque Route PRN Reason Start Time Stop Time Status Last Admin Dose Admin Acetaminophen (Tylenol) 650 mg Q4H PRN ORAL Mild Pain (Pain Scale 1-3) 02/08/18 15:30 03/10/18 15:29 Acetaminophen (Tylenol) 650 mg Q4H PRN ORAL T>100.5 02/08/18 15:30 03/10/18 15:29 Atorvastatin Calcium (Lipitor) 20 mg BEDTIME GT 02/08/18 21:00 03/10/18 20:59 UNV Bisacodyl (Dulcolax) 10 mg HSPRN PRN RECTAL Constipation 02/08/18 15:30 03/10/18 15:29 Ceftriaxone Sodium 2 gm/ Dextrose 55 ml @ 110 mls/hr Q24H IVPB 02/08/18 18:00 02/15/18 17:59 Dextrose (Dextrose 50%) 25 ml Q30M PRN IV Hypoglycemia 02/08/18 15:30 03/10/18 15:29 Dextrose (Dextrose 50%) 50 ml Q30M PRN IV Hypoglycemia 02/08/18 15:30 03/10/18 15:29 Levothyroxine Sodium (Synthroid) 50 mcg DAILY@0630 GT 02/09/18 06:30 03/11/18 06:29 Magnesium Hydroxide (Mom) 30 ml HSPRN PRN ORAL Constipation 02/08/18 21:00 03/10/18 20:59 Ondansetron HCl (Zofran) 4 mg Q6H PRN IVP Nausea & Vomiting 02/08/18 15:30 03/10/18 15:29 Pantoprazole (Protonix) 40 mg DAILY ORAL 02/09/18 09:00 03/11/18 08:59 Sodium Chloride 1,000 ml @ 100 mls/hr Q10H IVLG 02/08/18 16:00 03/10/18 15:59 Laboratory Tests Test 02/10/18 08:10 White Blood Count 8.7 K/UL (4.8-10.8) Red Blood Count 4.70 M/UL (4.20-5.40) Hemoglobin 14.5 G/DL (12.0-16.0) Hematocrit 44.4 % (37.0-47.0) Mean Corpuscular Volume 94 FL (80-99) Mean Corpuscular Hemoglobin 30.9 PG (27.0-31.0) Mean Corpuscular Hemoglobin Concent 32.7 G/DL (32.0-36.0) Red Cell Distribution Width 11.5 % (11.6-14.8) L Platelet Count 288 K/UL (150-450) Mean Platelet Volume 6.0 FL (6.5-10.1) L Neutrophils (%) (Auto) 48.5 % (45.0-75.0) Lymphocytes (%) (Auto) 36.1 % (20.0-45.0) Monocytes (%) (Auto) 9.2 % (1.0-10.0) Eosinophils (%) (Auto) 5.3 % (0.0-3.0) H Basophils (%) (Auto) 1.0 % (0.0-2.0) Assessment/Plan # DVT bilateral history currently is off of eliquis given recently BRBPR --> in the past imaging of the lower extremities has been negative --> repeat venous duplex to see if any remains of dvt of the lower ext --> no history of pulm embolism --> generally required to have 3 mo of anticoag, if no history of recurrence, consider to d/c steph # Elevated CEA in the past 10.1 in 2014 --> has been reordered # BRBPR suspect 2/2 hemorrhoids --> appreciate gi recs --> IVF --> monitor overnight with serial h/h --> transfuse for hgb < 7; suspect downtrend in hgb because patient is very dry --> eliquis has been held since december # UTI --> rocephin --> IVF --> blood and urine cultures # Dehydration --> TF through GT w FWF --> IVF's Greatly appreciate consultation! Miguel Hunt MD Feb 11, 2018 06:41
[2018-02-11 08:00] VITALS: BP 119/50
[2018-02-11 10:18] LABS: BASOPHILS % (AUTO) 0.9 % (0.0-2.0); EOSINOPHILS % (AUTO) 4.4 % (0.0-3.0); HEMATOCRIT 51.6 % (37.0-47.0); HEMOGLOBIN 17.6 G/DL (12.0-16.0); LYMPHOCYTES % (AUTO) 28.2 % (20.0-45.0); MEAN CORPUSCULAR VOLUME 94 FL (80-99); MONOCYTES % (AUTO) 7.7 % (1.0-10.0); NEUTROPHILS % (AUTO) 58.9 % (45.0-75.0); PLATELET COUNT 295 K/UL (150-450); RED BLOOD COUNT 5.47 M/UL (4.20-5.40); RED CELL DISTRIBUTION WIDTH 11.4 % (11.6-14.8); WHITE BLOOD COUNT 8.2 K/UL (4.8-10.8)
[2018-02-11] MEDS ORDERED: Vancomycin 750mg/NS 250ml IVPB SCH (10:30)
[2018-02-11 10:34] LABS: ANION GAP 7 mmol/L (5-15); BLOOD UREA NITROGEN 8 mg/dL (7-18); CALCIUM 9.6 MG/DL (8.5-10.1); CARBON DIOXIDE 25 MMOL/L (21-32); CHLORIDE 104 MMOL/L (98-107); CREATININE 0.4 MG/DL (0.55-1.30); SODIUM 135 MMOL/L (136-145)
--- NOTE | 2018-02-11 10:56 | General Progress Note ---
Assessment/Plan Problem List: (1) Gram-positive bacteremia ICD Codes: R78.81 - Bacteremia SNOMED: 690580090808 (2) Bright red blood per rectum ICD Codes: K62.5 - Hemorrhage of anus and rectum SNOMED: 466455265 (3) UTI (urinary tract infection) ICD Codes: N39.0 - Urinary tract infection, site not specified SNOMED: 66199479 Status: stable, tolerating diet Assessment/Plan Gram positive bacteremia, 2/2 bottles staph coag neg possible contamination repeat cx and follow ID recs -on vanco and rocephin - ID consult, dr Sanchez - follow Cx sens BRBPR - suspect 2/2 hemorrhoids - IVF - monitor overnight with serial h/h, currently stable - transfuse for hgb < 7; suspect downtrend in hgb because patient is very dry - appreciate GI reqs - eliquis has been held since December UTI - c/w rocephin - follow Cx sens SVT - cardiology consult, appreciate recs - 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 Not oriented at baseline. Objective Last 24 Hour Vital Signs Date Time Temp Pulse Resp B/P (MAP) Pulse Ox O2 Delivery O2 Flow Rate FiO2 02/11/18 08:00 97.0 60 20 119/50 (73) 96 97.0 02/11/18 05:38 73 116/58 02/11/18 04:00 73 02/11/18 04:00 97.1 72 20 116/58 (77) 97 97.1 02/11/18 00:00 97.8 81 20 119/56 (77) 95 97.8 02/11/18 00:00 81 02/10/18 21:11 87 148/74 02/10/18 21:00 Room Air 02/10/18 20:00 77 02/10/18 20:00 97.9 87 20 148/74 (98) 96 97.9 02/10/18 16:00 84 02/10/18 16:00 97.0 81 19 129/51 (77) 96 97.0 02/10/18 13:32 79 103/44 02/10/18 12:00 86 Intake and Output 02/10/18 02/11/18 19:00 07:00 Intake Total 160 ml 2555 ml Output Total 0 ml Balance 160 ml 2555 ml Intake Oral 200 ml Free Water 550 ml IV Total 100 ml 1025 ml Tube Feeding 60 ml 780 ml Output Urine Total 0 ml # Voids 6 8 # Bowel Movements 3 Laboratory Tests 02/11/18 09:55: White Blood Count 8.2, Red Blood Count 5.47H, Hemoglobin 17.6H, Hematocrit 51.6H , Mean Corpuscular Volume 94, Mean Corpuscular Hemoglobin 32.1H, Mean Corpuscular Hemoglobin Concent 34.1, Red Cell Distribution Width 11.4L, Platelet Count 295, Mean Platelet Volume 6.4L, Neutrophils (%) (Auto) 58.9, Lymphocytes (%) (Auto) 28.2, Monocytes (%) (Auto) 7.7, Eosinophils (%) (Auto) 4.4H, Basophils (%) (Auto) 0.9, Sodium Level 135L, Potassium Level 5.0, Chloride Level 104, Carbon Dioxide Level 25, Anion Gap 7, Blood Urea Nitrogen 8 , Creatinine 0.4L, Estimat Glomerular Filtration Rate , Glucose Level 125H, Calcium Level 9.6, Magnesium Level 1.9, Carcinoembryonic Antigen [Pending] Height (Feet): 5 Height (Inches): 6.00 Weight (Pounds): 135 General Appearance: no apparent distress, confused, thin EENT: PERRL/EOMI, pharynx normal Neck: non-tender, supple, normal inspection Cardiovascular: normal rate, regular rhythm Respiratory/Chest: lungs clear, normal breath sounds Abdomen: normal bowel sounds, non tender, soft, other - peg tube in place Extremities: normal range of motion, non-tender, normal inspection Edema: no edema noted Arm (L), no edema noted Arm (R), no edema noted Leg (L), no edema noted Leg (R) Neurologic: no motor/sensory deficits, alert, disoriented Skin: warm/dry Nissa Paula D.O. Feb 11, 2018 10:56
--- NOTE | 2018-02-11 11:15 | Cardiology Progress Note ---
Assessment/Plan Status: stable Assessment/Plan 1. Recurrent supraventricular tachycardia. We will treat her medically in view of her advanced dementia. Hold off on electrophysiology study and ablation at this point, however, that will be a consideration if she continues to have recurrence of SVT despite antiarrhythmic therapy. I will start the patient on Cardizem 60 mg three times daily. If she has recurrent SVT, I will start the patient on digoxin as well. 2. Dementia. 3. Dysphagia, status post PEG placement. 4. Rectal bleeding. Further evaluation by Dr. Lawrence., - eliquis has been held since December 5. Hypertension 6. Diabetes 7. GERD 8. Gastroesophageal reflux disease. 9. Hypothyroidism. -levothyroxine 50 mcg 10. UTI on rocephin 11. History of DVT - SCDs 12. Dehydration on IV fluids Subjective Cardiovascular: Reports: no symptoms Respiratory: Reports: no symptoms Gastrointestinal/Abdominal: Reports: no symptoms Genitourinary: Reports: no symptoms Subjective COVERAGE FOR TOLUIE No acute events, speech swallow done today, remains NPO on enteral feeding due to high aspiration risk. No further SVT overnight, heart rates controlled on cardizem. Objective Last 24 Hour Vital Signs Date Time Temp Pulse Resp B/P (MAP) Pulse Ox O2 Delivery O2 Flow Rate FiO2 02/11/18 08:00 97.0 60 20 119/50 (73) 96 97.0 02/11/18 05:38 73 116/58 02/11/18 04:00 73 02/11/18 04:00 97.1 72 20 116/58 (77) 97 97.1 02/11/18 00:00 97.8 81 20 119/56 (77) 95 97.8 02/11/18 00:00 81 02/10/18 21:11 87 148/74 02/10/18 21:00 Room Air 02/10/18 20:00 77 02/10/18 20:00 97.9 87 20 148/74 (98) 96 97.9 02/10/18 16:00 84 02/10/18 16:00 97.0 81 19 129/51 (77) 96 97.0 02/10/18 13:32 79 103/44 02/10/18 12:00 86 General Appearance: no apparent distress, alert EENT: PERRL/EOMI, normal ENT inspection, TMs normal, pharynx normal Neck: non-tender, normal alignment, supple, normal inspection, no JVD Rhythm: NSR Cardiovascular: normal peripheral pulses, normal rate, regular rhythm Respiratory/Chest: chest wall non-tender, lungs clear, normal breath sounds, no respiratory distress, no accessory muscle use Abdomen: normal bowel sounds, non tender, soft, no organomegaly Extremities: normal range of motion, non-tender 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 normal, no motor/sensory deficits, sensory deficit, disoriented Intake and Output 02/10/18 02/11/18 19:00 07:00 Intake Total 160 ml 2555 ml Output Total 0 ml Balance 160 ml 2555 ml Intake Oral 200 ml Free Water 550 ml IV Total 100 ml 1025 ml Tube Feeding 60 ml 780 ml Output Urine Total 0 ml # Voids 6 8 # Bowel Movements 3 Laboratory Tests Test 02/11/18 09:55 White Blood Count 8.2 K/UL (4.8-10.8) Red Blood Count 5.47 M/UL (4.20-5.40) H Hemoglobin 17.6 G/DL (12.0-16.0) H Hematocrit 51.6 % (37.0-47.0) H Mean Corpuscular Volume 94 FL (80-99) Mean Corpuscular Hemoglobin 32.1 PG (27.0-31.0) H Mean Corpuscular Hemoglobin Concent 34.1 G/DL (32.0-36.0) Red Cell Distribution Width 11.4 % (11.6-14.8) L Platelet Count 295 K/UL (150-450) Mean Platelet Volume 6.4 FL (6.5-10.1) L Neutrophils (%) (Auto) 58.9 % (45.0-75.0) Lymphocytes (%) (Auto) 28.2 % (20.0-45.0) Monocytes (%) (Auto) 7.7 % (1.0-10.0) Eosinophils (%) (Auto) 4.4 % (0.0-3.0) H Basophils (%) (Auto) 0.9 % (0.0-2.0) Sodium Level 135 MMOL/L (136-145) L Potassium Level 5.0 MMOL/L (3.5-5.1) Chloride Level 104 MMOL/L (98-107) Carbon Dioxide Level 25 MMOL/L (21-32) Anion Gap 7 mmol/L (5-15) Blood Urea Nitrogen 8 mg/dL (7-18) Creatinine 0.4 MG/DL (0.55-1.30) L Estimat Glomerular Filtration Rate mL/min (>60) Glucose Level 125 MG/DL (74-106) H Calcium Level 9.6 MG/DL (8.5-10.1) Magnesium Level 1.9 MG/DL (1.8-2.4) Carcinoembryonic Antigen Pending Microbiology Date/Time Source Procedure Growth Status 02/08/18 18:30 Blood Blood Culture - Preliminary Staphylococcus Sp Coag Neg Resulted 02/08/18 18:15 Blood Blood Culture - Preliminary Staphylococcus Sp Coag Neg Resulted 02/08/18 12:39 Nasal Nares MRSA Culture - Final Staphylococcus Aureus - Mrsa Complete 02/08/18 12:08 Urine,Clean Catch Urine Culture - Final Proteus Mirabilis Complete 02/08/18 12:39 Rectum - Final NO CARBAPENEM-RESISTANT ENTEROBACTERI... Complete 02/08/18 12:39 Rectum VRE Culture - Final Enterococcus Faecalis - Vre Enterococcus Faecium - Vre Complete Joshua Damico MD Feb 11, 2018 11:15
[2018-02-11 12:00] VITALS: BP 129/63
[2018-02-11 16:00] VITALS: BP 124/79
[2018-02-11] MEDS: cefTRIAXone 2 GM in D5W 55 ML IVPB SCH (17:20)
[2018-02-11 20:00] VITALS: BP 129/82
--- NOTE | 2018-02-11 20:53 | Infectious Diseases Prog Note ---
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 3. Possible hypertension. She is on blood pressure medication. 4. Diabetes. 5. Dysphagia, G-tube. 6. Dementia. 7. Alzheimer's. 8. Seizure disorder. 9. DVT and PE history. 10. SVT. 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 12. Asthma. 13. Anxiety. 14. Diabetes and hypertension, treatment per primary. 15. Hyperlipidemia. 16. Hypothyroidism. 17. Anemia. 18. GI bleed. 19. Past medical history noted. 20. Social history negative. 21. Family history noncontributory. 22. Allergies are negative. 23. MAR was noted. 24. Case discussed with RN. 25. Continue treatment per primary consultants. 26. Notes and records were noted. 27. Orders were entered. Subjective Constitutional: Reports: other - alert and responsive ; Denies: fever, fatigue HEENT: Denies: congestion Respiratory: Denies: shortness of breath Cardiovascular: Denies: chest pain Gastrointestinal/Abdominal: Denies: nausea, vomiting, diarrhea Genitourinary: Reports: other - no cota Neurologic: Denies: headache Psychiatric: Denies: depression Skin: Denies: rash Hematologic: Denies: bleeding Musculoskeletal: Denies: pain Allergies: Coded Allergies: NO KNOWN DRUG ALLERGIES (Unverified Allergy, Unknown, 07/29/14) Objective Vital Signs Last 24 Hour Vital Signs Date Time Temp Pulse Resp B/P (MAP) Pulse Ox O2 Delivery O2 Flow Rate FiO2 02/11/18 16:00 97.7 91 18 124/79 (94) 97 97.7 02/11/18 16:00 91 02/11/18 14:11 79 129/63 02/11/18 12:00 97.7 79 20 129/63 (85) 97 97.7 02/11/18 12:00 79 02/11/18 09:00 Room Air 02/11/18 08:00 68 02/11/18 08:00 97.0 60 20 119/50 (73) 96 97.0 02/11/18 05:38 73 116/58 02/11/18 04:00 73 02/11/18 04:00 97.1 72 20 116/58 (77) 97 97.1 02/11/18 00:00 97.8 81 20 119/56 (77) 95 97.8 02/11/18 00:00 81 02/10/18 21:11 87 148/74 02/10/18 21:00 Room Air Height (Feet): 5 Height (Inches): 6.00 Weight (Pounds): 135 General Appearance: no acute distress HEENT: normocephalic, atraumatic, anicteric, mucous membranes moist Respiratory/Chest: lungs clear, normal breath sounds, no respiratory distress, no accessory muscle use Cardiovascular: normal rate, regular rhythm, no gallop/murmur, no JVD Abdomen: normal bowel sounds, non distended Genitourinary: other - no cota Extremities: no cyanosis Skin: no rash Neurologic/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 Lung volumes are low. Heart is stable. Tracheostomy is no longer seen. Left subclavian line is no longer seen. Bones are osteopenic. Kyphoplasty noted at T12. IMPRESSION: Mild right basal atelectasis Microbiology Date/Time Source Procedure Growth Status 02/08/18 18:30 Blood Blood Culture - Preliminary Staphylococcus Sp Coag Neg Resulted 02/08/18 12:39 Nasal Nares MRSA Culture - Final Staphylococcus Aureus - Mrsa Complete 02/08/18 12:08 Urine,Clean Catch Urine Culture - Final Proteus Mirabilis Complete 02/08/18 12:39 Rectum - Final NO CARBAPENEM-RESISTANT ENTEROBACTERI... Complete Laboratory Tests Test 02/11/18 09:55 White Blood Count 8.2 K/UL (4.8-10.8) Red Blood Count 5.47 M/UL (4.20-5.40) H Hemoglobin 17.6 G/DL (12.0-16.0) H Hematocrit 51.6 % (37.0-47.0) H Mean Corpuscular Volume 94 FL (80-99) Mean Corpuscular Hemoglobin 32.1 PG (27.0-31.0) H Mean Corpuscular Hemoglobin Concent 34.1 G/DL (32.0-36.0) Red Cell Distribution Width 11.4 % (11.6-14.8) L Platelet Count 295 K/UL (150-450) Mean Platelet Volume 6.4 FL (6.5-10.1) L Neutrophils (%) (Auto) 58.9 % (45.0-75.0) Lymphocytes (%) (Auto) 28.2 % (20.0-45.0) Monocytes (%) (Auto) 7.7 % (1.0-10.0) Eosinophils (%) (Auto) 4.4 % (0.0-3.0) H Basophils (%) (Auto) 0.9 % (0.0-2.0) Sodium Level 135 MMOL/L (136-145) L Potassium Level 5.0 MMOL/L (3.5-5.1) Chloride Level 104 MMOL/L (98-107) Carbon Dioxide Level 25 MMOL/L (21-32) Anion Gap 7 mmol/L (5-15) Blood Urea Nitrogen 8 mg/dL (7-18) Creatinine 0.4 MG/DL (0.55-1.30) L Estimat Glomerular Filtration Rate mL/min (>60) Glucose Level 125 MG/DL (74-106) H Calcium Level 9.6 MG/DL (8.5-10.1) Magnesium Level 1.9 MG/DL (1.8-2.4) Carcinoembryonic Antigen Pending Current Medications Medications (Trade) Dose Ordered Sig/Jacque Route PRN Reason Start Time Stop Time Status Last Admin Dose Admin Acetaminophen (Tylenol) 650 mg Q4H PRN GT Mild Pain (Pain Scale 1-3) 02/09/18 10:34 03/11/18 10:33 Acetaminophen (Tylenol) 650 mg Q4H PRN ORAL T>100.5 02/08/18 15:30 03/10/18 15:29 Atorvastatin Calcium (Lipitor) 20 mg BEDTIME GT 02/08/18 21:00 03/10/18 20:59 02/10/18 21:11 Bisacodyl (Dulcolax) 10 mg HSPRN PRN RECTAL Constipation 02/08/18 15:30 03/10/18 15:29 Ceftriaxone Sodium 2 gm/ Dextrose 55 ml @ 110 mls/hr Q24H IVPB 02/08/18 18:00 02/15/18 17:59 02/11/18 17:20 Dextrose (Dextrose 50%) 25 ml Q30M PRN IV Hypoglycemia 02/08/18 15:30 03/10/18 15:29 Dextrose (Dextrose 50%) 50 ml Q30M PRN IV Hypoglycemia 02/08/18 15:30 03/10/18 15:29 Diltiazem HCl (Cardizem) 60 mg EVERY 8 HOURS ORAL 02/09/18 22:00 03/11/18 21:59 02/11/18 14:11 Lansoprazole (Prevacid) 30 mg DAILY GT 02/10/18 09:00 03/12/18 08:59 02/10/18 09:16 Levothyroxine Sodium (Synthroid) 50 mcg DAILY@0630 GT 02/09/18 06:30 03/11/18 06:29 02/11/18 05:38 Magnesium Hydroxide (Mom) 30 ml HSPRN PRN GT Constipation 02/09/18 21:00 03/11/18 20:59 Ondansetron HCl (Zofran) 4 mg Q6H PRN IVP Nausea & Vomiting 02/08/18 15:30 03/10/18 15:29 Sodium Chloride 1,000 ml @ 100 mls/hr Q10H IVLG 02/08/18 16:00 03/10/18 15:59 02/11/18 14:11 Vancomycin HCl (Vanco rx to dose) 1 ea DAILY PRN MISC Per rx protocol 02/10/18 09:15 03/12/18 09:14 Vancomycin/Sodium Chloride 250 ml @ 166.667 mls/hr Q24H IVPB 02/11/18 10:30 02/16/18 10:29 02/11/18 11:15 Agusto Orr MD Feb 11, 2018 20:53
[2018-02-11] MEDS ORDERED: Acetaminophen 650mg/20.3ml GT PRN (21:00)
[2018-02-11] MEDS ORDERED: Milk of Magnesia 30ml Ud GT PRN (21:00)
[2018-02-11] MEDS: Atorvastatin 20mg tab GT SCH (21:22)
--- NOTE | 2018-02-11 21:59 | General Progress Note ---
Assessment/Plan Problem List: (1) Schizophrenia ICD Codes: F20.9 - Schizophrenia, unspecified SNOMED: 08309398 (2) Dementia ICD Codes: F03.90 - Dementia SNOMED: 63230850 Assessment/Plan depakote ativan prn riperdal prn the pt lacks capacity to make decisions Subjective Date patient seen: Feb 11, 2018 Neurologic/Psychiatric: Reports: anxiety, depressed, emotional problems Allergies: Coded Allergies: NO KNOWN DRUG ALLERGIES (Unverified Allergy, Unknown, 07/29/14) Objective Last 24 Hour Vital Signs Date Time Temp Pulse Resp B/P (MAP) Pulse Ox O2 Delivery O2 Flow Rate FiO2 02/11/18 21:22 96 129/82 02/11/18 21:00 Room Air 02/11/18 20:00 97.9 96 17 129/82 (98) 97 97.9 02/11/18 16:00 97.7 91 18 124/79 (94) 97 97.7 02/11/18 16:00 91 02/11/18 14:11 79 129/63 02/11/18 12:00 97.7 79 20 129/63 (85) 97 97.7 02/11/18 12:00 79 02/11/18 09:00 Room Air 02/11/18 08:00 68 02/11/18 08:00 97.0 60 20 119/50 (73) 96 97.0 02/11/18 05:38 73 116/58 02/11/18 04:00 73 02/11/18 04:00 97.1 72 20 116/58 (77) 97 97.1 02/11/18 00:00 97.8 81 20 119/56 (77) 95 97.8 02/11/18 00:00 81 Intake and Output 02/10/18 02/11/18 19:00 07:00 Intake Total 160 ml 2555 ml Output Total 0 ml Balance 160 ml 2555 ml Intake Oral 200 ml Free Water 550 ml IV Total 100 ml 1025 ml Tube Feeding 60 ml 780 ml Output Urine Total 0 ml # Voids 6 8 # Bowel Movements 3 Laboratory Tests 02/11/18 09:55: White Blood Count 8.2, Red Blood Count 5.47H, Hemoglobin 17.6H, Hematocrit 51.6H , Mean Corpuscular Volume 94, Mean Corpuscular Hemoglobin 32.1H, Mean Corpuscular Hemoglobin Concent 34.1, Red Cell Distribution Width 11.4L, Platelet Count 295, Mean Platelet Volume 6.4L, Neutrophils (%) (Auto) 58.9, Lymphocytes (%) (Auto) 28.2, Monocytes (%) (Auto) 7.7, Eosinophils (%) (Auto) 4.4H, Basophils (%) (Auto) 0.9, Sodium Level 135L, Potassium Level 5.0, Chloride Level 104, Carbon Dioxide Level 25, Anion Gap 7, Blood Urea Nitrogen 8 , Creatinine 0.4L, Estimat Glomerular Filtration Rate , Glucose Level 125H, Calcium Level 9.6, Magnesium Level 1.9, Carcinoembryonic Antigen [Pending] Height (Feet): 5 Height (Inches): 6.00 Weight (Pounds): 135 General Appearance: no apparent distress, alert, confused Burak Viear MD Feb 11, 2018 21:59
--- NOTE | 2018-02-11 21:59 | Psych Consult Progress Note ---
Psych Consult Progress Note Consult 02/10/18 the pt is confused and has episodes of agitation Vital Signs Last 24 Hour Vital Signs Date Time Temp Pulse Resp B/P (MAP) Pulse Ox O2 Delivery O2 Flow Rate FiO2 02/11/18 21:22 96 129/82 02/11/18 21:00 Room Air 02/11/18 20:00 97.9 96 17 129/82 (98) 97 97.9 02/11/18 16:00 97.7 91 18 124/79 (94) 97 97.7 02/11/18 16:00 91 02/11/18 14:11 79 129/63 02/11/18 12:00 97.7 79 20 129/63 (85) 97 97.7 02/11/18 12:00 79 02/11/18 09:00 Room Air 02/11/18 08:00 68 02/11/18 08:00 97.0 60 20 119/50 (73) 96 97.0 02/11/18 05:38 73 116/58 02/11/18 04:00 73 02/11/18 04:00 97.1 72 20 116/58 (77) 97 97.1 02/11/18 00:00 97.8 81 20 119/56 (77) 95 97.8 02/11/18 00:00 81 Labs Laboratory Tests Test 02/11/18 09:55 White Blood Count 8.2 K/UL (4.8-10.8) Red Blood Count 5.47 M/UL (4.20-5.40) H Hemoglobin 17.6 G/DL (12.0-16.0) H Hematocrit 51.6 % (37.0-47.0) H Mean Corpuscular Volume 94 FL (80-99) Mean Corpuscular Hemoglobin 32.1 PG (27.0-31.0) H Mean Corpuscular Hemoglobin Concent 34.1 G/DL (32.0-36.0) Red Cell Distribution Width 11.4 % (11.6-14.8) L Platelet Count 295 K/UL (150-450) Mean Platelet Volume 6.4 FL (6.5-10.1) L Neutrophils (%) (Auto) 58.9 % (45.0-75.0) Lymphocytes (%) (Auto) 28.2 % (20.0-45.0) Monocytes (%) (Auto) 7.7 % (1.0-10.0) Eosinophils (%) (Auto) 4.4 % (0.0-3.0) H Basophils (%) (Auto) 0.9 % (0.0-2.0) Sodium Level 135 MMOL/L (136-145) L Potassium Level 5.0 MMOL/L (3.5-5.1) Chloride Level 104 MMOL/L (98-107) Carbon Dioxide Level 25 MMOL/L (21-32) Anion Gap 7 mmol/L (5-15) Blood Urea Nitrogen 8 mg/dL (7-18) Creatinine 0.4 MG/DL (0.55-1.30) L Estimat Glomerular Filtration Rate mL/min (>60) Glucose Level 125 MG/DL (74-106) H Calcium Level 9.6 MG/DL (8.5-10.1) Magnesium Level 1.9 MG/DL (1.8-2.4) Carcinoembryonic Antigen Pending Medications Current Medications Medications (Trade) Dose Ordered Sig/Jacque Route PRN Reason Start Time Stop Time Status Last Admin Dose Admin Acetaminophen (Tylenol) 650 mg Q4H PRN GT Mild Pain (Pain Scale 1-3) 02/11/18 21:00 03/11/18 20:59 Acetaminophen (Tylenol) 650 mg Q4H PRN ORAL T>100.5 02/11/18 23:30 03/10/18 15:29 Atorvastatin Calcium (Lipitor) 20 mg BEDTIME GT 02/11/18 21:00 03/10/18 20:59 02/11/18 21:22 Bisacodyl (Dulcolax) 10 mg HSPRN PRN RECTAL Constipation 02/11/18 21:00 03/13/18 20:59 Ceftriaxone Sodium 2 gm/ Dextrose 55 ml @ 110 mls/hr Q24H IVPB 02/12/18 18:00 02/15/18 17:59 Dextrose (Dextrose 50%) 25 ml Q30M PRN IV Hypoglycemia 02/11/18 21:00 03/10/18 15:29 Dextrose (Dextrose 50%) 50 ml Q30M PRN IV Hypoglycemia 02/11/18 21:00 03/10/18 15:29 Diltiazem HCl (Cardizem) 60 mg EVERY 8 HOURS ORAL 02/11/18 22:00 03/11/18 21:59 02/11/18 21:22 Lansoprazole (Prevacid) 30 mg DAILY GT 02/12/18 09:00 03/12/18 08:59 Levothyroxine Sodium (Synthroid) 50 mcg DAILY@0630 GT 02/12/18 06:30 03/11/18 06:29 Magnesium Hydroxide (Mom) 30 ml HSPRN PRN GT Constipation 02/11/18 21:00 03/11/18 20:59 Ondansetron HCl (Zofran) 4 mg Q6H PRN IVP Nausea & Vomiting 02/11/18 21:00 03/10/18 20:59 Sodium Chloride 1,000 ml @ 100 mls/hr Q10H IVLG 02/11/18 20:45 03/10/18 15:59 02/11/18 21:23 Vancomycin HCl (Vanco rx to dose) 1 ea DAILY PRN MISC Per rx protocol 02/12/18 09:00 03/12/18 09:14 Vancomycin/Sodium Chloride 250 ml @ 166.667 mls/hr Q24H IVPB 02/12/18 10:30 02/16/18 10:29 Problems: (1) Schizophrenia (2) Dementia Status: Acute Assessment & Plan: depakote ativan prn riperdal prn the pt lacks capacity to make decisions Burak Viera MD Feb 11, 2018 21:59
--- NOTE | 2018-02-11 22:12 | General Progress Note ---
Assessment/Plan Assessment/Plan Assessment - episodic small volume hematochezia, likely hemorrhoidal - Chronic constipation - OB (-) recently, and not anemic - discussed with DTR - wants to hold off on colonoscopy at this time - UTI - recent seizure - OBS - s/p PEG - h/o Trach Recommendations - Bowel regimen - follow symptoms and labs - no plans for colonoscopy at this time, per family directive - Abx Subjective Allergies: Coded Allergies: NO KNOWN DRUG ALLERGIES (Unverified Allergy, Unknown, 07/29/14) Subjective above noted no overnight issues no rectal bleeding Objective Last 24 Hour Vital Signs Date Time Temp Pulse Resp B/P (MAP) Pulse Ox O2 Delivery O2 Flow Rate FiO2 02/11/18 21:22 96 129/82 02/11/18 21:00 Room Air 02/11/18 20:00 97.9 96 17 129/82 (98) 97 97.9 02/11/18 16:00 97.7 91 18 124/79 (94) 97 97.7 02/11/18 16:00 91 02/11/18 14:11 79 129/63 02/11/18 12:00 97.7 79 20 129/63 (85) 97 97.7 02/11/18 12:00 79 02/11/18 09:00 Room Air 02/11/18 08:00 68 02/11/18 08:00 97.0 60 20 119/50 (73) 96 97.0 02/11/18 05:38 73 116/58 02/11/18 04:00 73 02/11/18 04:00 97.1 72 20 116/58 (77) 97 97.1 02/11/18 00:00 97.8 81 20 119/56 (77) 95 97.8 02/11/18 00:00 81 Intake and Output 02/10/18 02/11/18 19:00 07:00 Intake Total 160 ml 2555 ml Output Total 0 ml Balance 160 ml 2555 ml Intake Oral 200 ml Free Water 550 ml IV Total 100 ml 1025 ml Tube Feeding 60 ml 780 ml Output Urine Total 0 ml # Voids 6 8 # Bowel Movements 3 Laboratory Tests 02/11/18 09:55: White Blood Count 8.2, Red Blood Count 5.47H, Hemoglobin 17.6H, Hematocrit 51.6H , Mean Corpuscular Volume 94, Mean Corpuscular Hemoglobin 32.1H, Mean Corpuscular Hemoglobin Concent 34.1, Red Cell Distribution Width 11.4L, Platelet Count 295, Mean Platelet Volume 6.4L, Neutrophils (%) (Auto) 58.9, Lymphocytes (%) (Auto) 28.2, Monocytes (%) (Auto) 7.7, Eosinophils (%) (Auto) 4.4H, Basophils (%) (Auto) 0.9, Sodium Level 135L, Potassium Level 5.0, Chloride Level 104, Carbon Dioxide Level 25, Anion Gap 7, Blood Urea Nitrogen 8 , Creatinine 0.4L, Estimat Glomerular Filtration Rate , Glucose Level 125H, Calcium Level 9.6, Magnesium Level 1.9, Carcinoembryonic Antigen [Pending] Height (Feet): 5 Height (Inches): 6.00 Weight (Pounds): 135 Objective Elderly Woman NCAT supple CTA RRR soft ND NT no edema nonfocal Staci Lawrence MD Feb 11, 2018 22:12
[2018-02-12] VITALS (7 sets, daily range): BP systolic 120–140; BP diastolic 64–81
[2018-02-12] MEDS: dilTIAZem HCl 60mg tab ORAL SCH (05:25)
[2018-02-12 07:25] LABS: EOSINOPHILS % (AUTO) 5.3 % (0.0-3.0); HEMATOCRIT 47.9 % (37.0-47.0); HEMOGLOBIN 15.9 G/DL (12.0-16.0); LYMPHOCYTES % (AUTO) 32.6 % (20.0-45.0); MEAN CORPUSCULAR VOLUME 94 FL (80-99); MONOCYTES % (AUTO) 7.5 % (1.0-10.0); NEUTROPHILS % (AUTO) 53.6 % (45.0-75.0); PLATELET COUNT 324 K/UL (150-450); RED CELL DISTRIBUTION WIDTH 11.7 % (11.6-14.8); WHITE BLOOD COUNT 7.6 K/UL (4.8-10.8)
[2018-02-12 07:44] LABS: ANION GAP 8 mmol/L (5-15); BLOOD UREA NITROGEN 10 mg/dL (7-18); CALCIUM 9.7 MG/DL (8.5-10.1); CARBON DIOXIDE 26 MMOL/L (21-32); CHLORIDE 104 MMOL/L (98-107); CREATININE 0.4 MG/DL (0.55-1.30); POTASSIUM 4.4 MMOL/L (3.5-5.1); SODIUM 138 MMOL/L (136-145)
[2018-02-12] MEDS ORDERED: Vancomycin 750mg/NS 250ml 250 ML IVPB SCH (10:30)
[2018-02-12] MEDS ORDERED: Acetaminophen 650mg/20.3ml GT PRN (11:00)
--- NOTE | 2018-02-12 13:18 | Infectious Diseases Prog Note ---
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 3. Possible hypertension. She is on blood pressure medication. 4. Diabetes. 5. Dysphagia, G-tube. 6. Dementia. 7. Alzheimer's. 8. Seizure disorder. 9. DVT and PE history. 10. SVT. 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 12. Asthma. 13. Anxiety. 14. Diabetes and hypertension, treatment per primary. 15. Hyperlipidemia. 16. Hypothyroidism. 17. Anemia. 18. GI bleed. 19. Past medical history noted. 20. Social history negative. 21. Family history noncontributory. 22. Allergies are negative. 23. MAR was noted. 24. Case discussed with RN. 25. Continue treatment per primary consultants. 26. Notes and records were noted. 27. Orders were entered. Subjective Constitutional: Denies: fever HEENT: Denies: congestion Respiratory: Denies: shortness of breath Cardiovascular: Denies: chest pain Gastrointestinal/Abdominal: Denies: nausea, diarrhea Genitourinary: Reports: other - no cota Neurologic: Denies: headache Psychiatric: Denies: depression Skin: Denies: rash Hematologic: Denies: bleeding Musculoskeletal: Denies: pain Allergies: Coded Allergies: NO KNOWN DRUG ALLERGIES (Unverified Allergy, Unknown, 07/29/14) Objective Vital Signs Last 24 Hour Vital Signs Date Time Temp Pulse Resp B/P (MAP) Pulse Ox O2 Delivery O2 Flow Rate FiO2 02/12/18 12:00 98.0 95 18 125/71 (89) 100 98.0 02/12/18 09:00 Room Air 02/12/18 08:27 98.0 96 19 130/81 (97) 95 98.0 02/12/18 05:25 84 140/73 02/12/18 04:11 98.0 84 18 140/73 (95) 99 98.0 02/12/18 00:38 97.6 93 16 125/79 (94) 97 97.6 02/11/18 21:22 96 129/82 02/11/18 21:00 Room Air 02/11/18 20:00 97.9 96 17 129/82 (98) 97 97.9 02/11/18 16:00 97.7 91 18 124/79 (94) 97 97.7 02/11/18 16:00 91 02/11/18 14:11 79 129/63 Height (Feet): 5 Height (Inches): 6.00 Weight (Pounds): 135 General Appearance: no acute distress HEENT: normocephalic, atraumatic, anicteric, mucous membranes moist Respiratory/Chest: lungs clear, normal breath sounds, no respiratory distress, no accessory muscle use Cardiovascular: normal rate, regular rhythm, no gallop/murmur, no JVD Abdomen: normal bowel sounds, soft, non tender, no organomegaly, non distended Genitourinary: other - no cota Extremities: no cyanosis Skin: no rash 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 Lung volumes are low. Heart is stable. Tracheostomy is no longer seen. Left subclavian line is no longer seen. Bones are osteopenic. Kyphoplasty noted at T12. IMPRESSION: Mild right basal atelectasis Microbiology Date/Time Source Procedure Growth Status 02/10/18 17:18 Blood Blood Culture - Preliminary NO GROWTH AFTER 24 HOURS Resulted 02/08/18 12:39 Nasal Nares MRSA Culture - Final Staphylococcus Aureus - Mrsa Complete 02/08/18 12:08 Urine,Clean Catch Urine Culture - Final Proteus Mirabilis Complete 02/08/18 12:39 Rectum - Final NO CARBAPENEM-RESISTANT ENTEROBACTERI... Complete Microbiology Date/Time Source Procedure Growth Status 02/10/18 17:18 Blood Blood Culture - Preliminary NO GROWTH AFTER 24 HOURS Resulted 02/10/18 17:15 Blood Blood Culture - Preliminary NO GROWTH AFTER 24 HOURS Resulted Laboratory Tests Test 02/12/18 06:15 White Blood Count 7.6 K/UL (4.8-10.8) Red Blood Count 5.10 M/UL (4.20-5.40) Hemoglobin 15.9 G/DL (12.0-16.0) Hematocrit 47.9 % (37.0-47.0) H Mean Corpuscular Volume 94 FL (80-99) Mean Corpuscular Hemoglobin 31.3 PG (27.0-31.0) H Mean Corpuscular Hemoglobin Concent 33.3 G/DL (32.0-36.0) Red Cell Distribution Width 11.7 % (11.6-14.8) Platelet Count 324 K/UL (150-450) Mean Platelet Volume 6.0 FL (6.5-10.1) L Neutrophils (%) (Auto) 53.6 % (45.0-75.0) Lymphocytes (%) (Auto) 32.6 % (20.0-45.0) Monocytes (%) (Auto) 7.5 % (1.0-10.0) Eosinophils (%) (Auto) 5.3 % (0.0-3.0) H Basophils (%) (Auto) 1.0 % (0.0-2.0) Sodium Level 138 MMOL/L (136-145) Potassium Level 4.4 MMOL/L (3.5-5.1) Chloride Level 104 MMOL/L (98-107) Carbon Dioxide Level 26 MMOL/L (21-32) Anion Gap 8 mmol/L (5-15) Blood Urea Nitrogen 10 mg/dL (7-18) Creatinine 0.4 MG/DL (0.55-1.30) L Estimat Glomerular Filtration Rate mL/min (>60) Glucose Level 113 MG/DL (74-106) H Calcium Level 9.7 MG/DL (8.5-10.1) Magnesium Level 1.9 MG/DL (1.8-2.4) Current Medications Medications (Trade) Dose Ordered Sig/Jacque Route PRN Reason Start Time Stop Time Status Last Admin Dose Admin Acetaminophen (Tylenol) 650 mg Q4H PRN GT Mild Pain (Pain Scale 1-3) 02/11/18 21:00 03/11/18 20:59 Acetaminophen (Tylenol) 650 mg Q4H PRN GT Temp > 100.5 02/12/18 11:00 03/14/18 10:59 Atorvastatin Calcium (Lipitor) 20 mg BEDTIME GT 02/11/18 21:00 03/10/18 20:59 02/11/18 21:22 Bisacodyl (Dulcolax) 10 mg HSPRN PRN RECTAL Constipation 02/11/18 21:00 03/13/18 20:59 Ceftriaxone Sodium 2 gm/ Dextrose 55 ml @ 110 mls/hr Q24H IVPB 02/12/18 18:00 02/15/18 17:59 Dextrose (Dextrose 50%) 25 ml Q30M PRN IV Hypoglycemia 02/11/18 21:00 03/10/18 15:29 Dextrose (Dextrose 50%) 50 ml Q30M PRN IV Hypoglycemia 02/11/18 21:00 03/10/18 15:29 Diltiazem HCl (Cardizem) 60 mg EVERY 8 HOURS GT 02/12/18 14:00 03/11/18 21:59 Lansoprazole (Prevacid) 30 mg DAILY GT 02/12/18 09:00 03/12/18 08:59 02/12/18 08:08 Levothyroxine Sodium (Synthroid) 50 mcg DAILY@0630 GT 02/12/18 06:30 03/11/18 06:29 02/12/18 06:13 Magnesium Hydroxide (Mom) 30 ml HSPRN PRN GT Constipation 02/11/18 21:00 03/11/18 20:59 Ondansetron HCl (Zofran) 4 mg Q6H PRN IVP Nausea & Vomiting 02/11/18 21:00 03/10/18 20:59 Risperidone (RisperDAL) 1 mg BEDTIME PRN GT agitation 02/12/18 21:00 03/13/18 21:59 Sodium Chloride 1,000 ml @ 100 mls/hr Q10H IVLG 02/11/18 20:45 03/10/18 15:59 02/12/18 09:50 Vancomycin HCl (Vanco rx to dose) 1 ea DAILY PRN MISC Per rx protocol 02/12/18 09:00 03/12/18 09:14 Vancomycin/Sodium Chloride 250 ml @ 166.667 mls/hr Q24H IVPB 02/12/18 10:30 02/16/18 10:29 02/12/18 11:00 Agusto Orr MD Feb 12, 2018 13:18
[2018-02-12] MEDS: dilTIAZem HCl 60mg tab GT SCH ×2 (14:01→20:58)
--- NOTE | 2018-02-12 14:42 | General Progress Note ---
Assessment/Plan Problem List: (1) Gram-positive bacteremia ICD Codes: R78.81 - Bacteremia SNOMED: 562974060206 (2) Bright red blood per rectum ICD Codes: K62.5 - Hemorrhage of anus and rectum SNOMED: 996767905 (3) UTI (urinary tract infection) ICD Codes: N39.0 - Urinary tract infection, site not specified SNOMED: 49184692 Assessment/Plan Gram positive bacteremia, 2/2 bottles repeat neg thus far staph coag neg possible contamination repeat cx and follow ID recs -on vanco and rocephin - ID consult appreciated, dc planning BRBPR - suspect 2/2 hemorrhoids - IVF - monitor overnight with serial h/h, currently stable - transfuse for hgb < 7; suspect downtrend in hgb because patient is very dry - appreciate GI reqs - eliquis has been held since December UTI - c/w rocephin - follow Cx sens SVT - cardiology consult, appreciate recs - digoxin - conveyor monitor H/O DVT - patient is bedbound - if patient shows no signs of bleeding risks of anticoag outweight benefits currently c/w scd Dehydration - TF through GT w FWF - IVF's Hypothyroid - levothyroxine 50 mcg Discharge planning Subjective Date patient seen: Feb 12, 2018 Time patient seen: 10:00 ROS Limited/Unobtainable: Yes - severe dementia Allergies: Coded Allergies: NO KNOWN DRUG ALLERGIES (Unverified Allergy, Unknown, 07/29/14) Subjective Pt seen and examined, doing okay overall, no new issues per nursing. Per Speech therapy, would like to repeat swallow study Objective Last 24 Hour Vital Signs Date Time Temp Pulse Resp B/P (MAP) Pulse Ox O2 Delivery O2 Flow Rate FiO2 02/12/18 14:01 95 125/71 02/12/18 12:00 98.0 95 18 125/71 (89) 100 98.0 02/12/18 09:00 Room Air 02/12/18 08:27 98.0 96 19 130/81 (97) 95 98.0 02/12/18 05:25 84 140/73 02/12/18 04:11 98.0 84 18 140/73 (95) 99 98.0 02/12/18 00:38 97.6 93 16 125/79 (94) 97 97.6 02/11/18 21:22 96 129/82 02/11/18 21:00 Room Air 02/11/18 20:00 97.9 96 17 129/82 (98) 97 97.9 02/11/18 16:00 97.7 91 18 124/79 (94) 97 97.7 02/11/18 16:00 91 Intake and Output 02/11/18 02/12/18 19:00 07:00 Intake Total 1120 ml Output Total 200 ml 600 ml Balance -200 ml 520 ml IV Total 700 ml Tube Feeding 420 ml Output Urine Total 200 ml 600 ml Laboratory Tests 02/12/18 06:15: White Blood Count 7.6, Red Blood Count 5.10, Hemoglobin 15.9, Hematocrit 47.9H, Mean Corpuscular Volume 94, Mean Corpuscular Hemoglobin 31.3H, Mean Corpuscular Hemoglobin Concent 33.3, Red Cell Distribution Width 11.7, Platelet Count 324, Mean Platelet Volume 6.0L, Neutrophils (%) (Auto) 53.6, Lymphocytes (%) (Auto) 32.6, Monocytes (%) (Auto) 7.5, Eosinophils (%) (Auto) 5.3H, Basophils (%) (Auto ) 1.0, Sodium Level 138, Potassium Level 4.4, Chloride Level 104, Carbon Dioxide Level 26, Anion Gap 8, Blood Urea Nitrogen 10, Creatinine 0.4L, Estimat Glomerular Filtration Rate , Glucose Level 113H, Calcium Level 9.7, Magnesium Level 1.9 Height (Feet): 5 Height (Inches): 6.00 Weight (Pounds): 135 General Appearance: no apparent distress, alert, confused EENT: normal ENT inspection, pharynx normal Neck: non-tender, normal alignment, supple, normal inspection Cardiovascular: normal peripheral pulses, normal rate, regular rhythm Respiratory/Chest: chest wall non-tender, lungs clear, normal breath sounds Abdomen: normal bowel sounds, non tender, soft, other - peg tube in place Extremities: normal range of motion, non-tender, normal inspection Edema: no edema noted Arm (L), no edema noted Arm (R), no edema noted Leg (L), no edema noted Leg (R) Neurologic: no motor/sensory deficits, alert Skin: normal pigmentation, warm/dry Nissa Paula D.O. Feb 12, 2018 14:42
--- NOTE | 2018-02-12 15:02 | Cardiology Report ---
APPROVED REPORT EXAM: Two-dimensional and M-mode echocardiogram with Doppler and color Doppler. INDICATION VEGITATION M-Mode DIMENSIONS IVSd1.4 (0.7-1.1cm)Left Atrium (MM)4.9 (1.6-4.0cm) LVDd3.9 (3.5-5.6cm)Aortic Root2.8 (2.0-3.7cm) PWd0.7 (0.7-1.1cm)Aortic Cusp Exc.1.3 (1.5-2.0cm) IVSs1.1 cm LVDs3.0 (2.5-4.0cm) PWs1.2 cm Technically difficult study due to poor acoustical windows. Normal left ventricular chamber size, systolic function and wall motion. Left ventricular ejection fraction estimated to be 60-65 %. Mild left ventricular hypertrophy by 2-D. No evidence of pericardial effusion. Mild left atrial enlargement . Right cardiac chamber sizes are within normal limits. Focal aortic valve sclerosis with adequate cusp excursion. Moderately Thickened mitral valve leaflets with normal excursion. Moderatly Mitral annulus and aortic root calcification. Pulmonic valve not well visualized. Normal tricuspid valve structure. IVC at 1.7 cm and non-collapsing with respiration suggestive of increased RA pressure. No discrete vegetations seen, however SBE may not be excluded by transthoracic 2-D echo. Consider CATRINA if clinically indicated. A color flow and spectral Doppler study was performed and revealed: No aortic insufficiency. Mild mitral regurgitation. Mitral diastolic velocities suggest reduced left ventricular relaxation c/w diastolic dysfunction grade 1. Mild tricuspid regurgitation. Tricuspid systolic velocities suggests peak right ventricular systolic pressure of 30 mmHg No Pulmonic regurgitation present.
--- NOTE | 2018-02-12 15:52 | Cardiac Electrophysiology PN ---
Assessment/Plan Assessment/Plan 1. Recurrent supraventricular tachycardia. We will treat her medically in view of her advanced dementia. Hold off on electrophysiology study and ablation at this point, On Cardizem 60 mg three times daily. If she has recurrent SVT, I will start the patient on digoxin as well. 2. Dementia. 3. Dysphagia, status post PEG placement. 4. Rectal bleeding. Further evaluation by Dr. Lawrence. Subjective Subjective Feeling better. No CP or SOB Objective Last 24 Hour Vital Signs Date Time Temp Pulse Resp B/P (MAP) Pulse Ox O2 Delivery O2 Flow Rate FiO2 02/12/18 14:01 95 125/71 02/12/18 12:00 98.0 95 18 125/71 (89) 100 98.0 02/12/18 09:00 Room Air 02/12/18 08:27 98.0 96 19 130/81 (97) 95 98.0 02/12/18 05:25 84 140/73 02/12/18 04:11 98.0 84 18 140/73 (95) 99 98.0 02/12/18 00:38 97.6 93 16 125/79 (94) 97 97.6 02/11/18 21:22 96 129/82 02/11/18 21:00 Room Air 02/11/18 20:00 97.9 96 17 129/82 (98) 97 97.9 02/11/18 16:00 97.7 91 18 124/79 (94) 97 97.7 02/11/18 16:00 91 Intake and Output 02/11/18 02/12/18 19:00 07:00 Intake Total 1120 ml Output Total 200 ml 600 ml Balance -200 ml 520 ml IV Total 700 ml Tube Feeding 420 ml Output Urine Total 200 ml 600 ml Laboratory Tests Test 02/12/18 06:15 White Blood Count 7.6 K/UL (4.8-10.8) Red Blood Count 5.10 M/UL (4.20-5.40) Hemoglobin 15.9 G/DL (12.0-16.0) Hematocrit 47.9 % (37.0-47.0) H Mean Corpuscular Volume 94 FL (80-99) Mean Corpuscular Hemoglobin 31.3 PG (27.0-31.0) H Mean Corpuscular Hemoglobin Concent 33.3 G/DL (32.0-36.0) Red Cell Distribution Width 11.7 % (11.6-14.8) Platelet Count 324 K/UL (150-450) Mean Platelet Volume 6.0 FL (6.5-10.1) L Neutrophils (%) (Auto) 53.6 % (45.0-75.0) Lymphocytes (%) (Auto) 32.6 % (20.0-45.0) Monocytes (%) (Auto) 7.5 % (1.0-10.0) Eosinophils (%) (Auto) 5.3 % (0.0-3.0) H Basophils (%) (Auto) 1.0 % (0.0-2.0) Sodium Level 138 MMOL/L (136-145) Potassium Level 4.4 MMOL/L (3.5-5.1) Chloride Level 104 MMOL/L (98-107) Carbon Dioxide Level 26 MMOL/L (21-32) Anion Gap 8 mmol/L (5-15) Blood Urea Nitrogen 10 mg/dL (7-18) Creatinine 0.4 MG/DL (0.55-1.30) L Estimat Glomerular Filtration Rate mL/min (>60) Glucose Level 113 MG/DL (74-106) H Calcium Level 9.7 MG/DL (8.5-10.1) Magnesium Level 1.9 MG/DL (1.8-2.4) Microbiology Date/Time Source Procedure Growth Status 02/10/18 17:18 Blood Blood Culture - Preliminary NO GROWTH AFTER 24 HOURS Resulted 02/10/18 17:15 Blood Blood Culture - Preliminary NO GROWTH AFTER 24 HOURS Resulted Objective HEAD AND NECK: Shows no JVD. LUNGS: Clear. CARDIOVASCULAR: Shows regular S1 and S2 with no gallop or murmur. ABDOMEN: Status post G-tube. EXTREMITIES: No pitting edema. Bret Morrow MD Feb 12, 2018 15:52
--- NOTE | 2018-02-12 17:03 | General Progress Note ---
Assessment/Plan Status: stable, unchanged Assessment/Plan # DVT bilateral history currently is off of eliquis given recently BRBPR --> in the past imaging of the lower extremities has been negative --> repeat venous duplex to see if any remains of dvt of the lower ext --> no history of pulm embolism --> generally required to have 3 mo of anticoag, if no history of recurrence, consider to d/c eliquis # Elevated CEA in the past 10.1 in 2014 --> has been reordered # BRBPR suspect 2/2 hemorrhoids --> appreciate gi recs --> IVF --> monitor overnight with serial h/h --> transfuse for hgb < 7; suspect downtrend in hgb because patient is very dry --> eliquis has been held since december # UTI --> rocephin --> IVF --> blood and urine cultures - no grwoth after 24 hrs. # Dehydration --> TF through GT w FWF --> IVF's Greatly appreciate consultation! Subjective Date patient seen: Feb 12, 2018 Allergies: Coded Allergies: NO KNOWN DRUG ALLERGIES (Unverified Allergy, Unknown, 07/29/14) All Systems: reviewed and negative except above Subjective No acute events. Pt in stable condition. Objective Last 24 Hour Vital Signs Date Time Temp Pulse Resp B/P (MAP) Pulse Ox O2 Delivery O2 Flow Rate FiO2 02/12/18 16:00 98.0 88 18 120/68 (85) 100 98.0 02/12/18 14:01 95 125/71 02/12/18 12:00 98.0 95 18 125/71 (89) 100 98.0 02/12/18 09:00 Room Air 02/12/18 08:27 98.0 96 19 130/81 (97) 95 98.0 02/12/18 05:25 84 140/73 02/12/18 04:11 98.0 84 18 140/73 (95) 99 98.0 02/12/18 00:38 97.6 93 16 125/79 (94) 97 97.6 02/11/18 21:22 96 129/82 02/11/18 21:00 Room Air 02/11/18 20:00 97.9 96 17 129/82 (98) 97 97.9 Intake and Output 02/11/18 02/12/18 19:00 07:00 Intake Total 1220 ml Output Total 200 ml 600 ml Balance -200 ml 620 ml IV Total 800 ml Tube Feeding 420 ml Output Urine Total 200 ml 600 ml Laboratory Tests 02/12/18 06:15: White Blood Count 7.6, Red Blood Count 5.10, Hemoglobin 15.9, Hematocrit 47.9H, Mean Corpuscular Volume 94, Mean Corpuscular Hemoglobin 31.3H, Mean Corpuscular Hemoglobin Concent 33.3, Red Cell Distribution Width 11.7, Platelet Count 324, Mean Platelet Volume 6.0L, Neutrophils (%) (Auto) 53.6, Lymphocytes (%) (Auto) 32.6, Monocytes (%) (Auto) 7.5, Eosinophils (%) (Auto) 5.3H, Basophils (%) (Auto ) 1.0, Sodium Level 138, Potassium Level 4.4, Chloride Level 104, Carbon Dioxide Level 26, Anion Gap 8, Blood Urea Nitrogen 10, Creatinine 0.4L, Estimat Glomerular Filtration Rate , Glucose Level 113H, Calcium Level 9.7, Magnesium Level 1.9 Height (Feet): 5 Height (Inches): 6.00 Weight (Pounds): 135 General Appearance: no apparent distress EENT: PERRL/EOMI Neck: normal alignment Cardiovascular: normal peripheral pulses Respiratory/Chest: no respiratory distress Abdomen: normal bowel sounds Miguel Hunt MD Feb 12, 2018 17:03
[2018-02-12] MEDS: cefTRIAXone 2 GM in D5W 55 ML IVPB SCH (18:08)
--- NOTE | 2018-02-12 18:45 | Progress Note ---
DATE: 02/12/2018 SUBJECTIVE: The patient is alert and oriented to self, disoriented to year and month. She has waxing and waning consciousness. Mood is anxious. Affect is constricted, congruent with mood. Thought process is concrete. Thought content, no suicidal or homicidal ideation. Cognition is impaired. ASSESSMENT: Schizophrenia and dementia with behavioral disturbance. PLAN: 1. We will continue the Depakote. 2. Continue Ativan p.r.n. 3. Continue risperidone p.r.n. 4. The patient lacks capacity to make decisions. 5. Provide the patient with supportive therapy and reality orientation. Burak Viera M.D. DR: KEN JOB#: [id number] CC:
[2018-02-12] MEDS: Atorvastatin 20mg tab GT SCH (20:26)
--- NOTE | 2018-02-12 22:15 | General Progress Note ---
Assessment/Plan Assessment/Plan Assessment - episodic small volume hematochezia, likely hemorrhoidal - Chronic constipation - OB (-) recently, and not anemic - discussed with DTR - wants to hold off on colonoscopy at this time - UTI - recent seizure - OBS - s/p PEG - h/o Trach Recommendations - Bowel regimen - follow symptoms and labs - no plans for colonoscopy at this time, per family directive - Abx Subjective Allergies: Coded Allergies: NO KNOWN DRUG ALLERGIES (Unverified Allergy, Unknown, 07/29/14) Subjective above noted no overnight issues tolerating TF Objective Last 24 Hour Vital Signs Date Time Temp Pulse Resp B/P (MAP) Pulse Ox O2 Delivery O2 Flow Rate FiO2 02/12/18 20:58 94 122/64 02/12/18 16:00 98.0 88 18 120/68 (85) 100 98.0 02/12/18 14:01 95 125/71 02/12/18 12:00 98.0 95 18 125/71 (89) 100 98.0 02/12/18 09:00 Room Air 02/12/18 08:27 98.0 96 19 130/81 (97) 95 98.0 02/12/18 05:25 84 140/73 02/12/18 04:11 98.0 84 18 140/73 (95) 99 98.0 02/12/18 00:38 97.6 93 16 125/79 (94) 97 97.6 Intake and Output 02/11/18 02/12/18 19:00 07:00 Intake Total 1280 ml Output Total 200 ml 600 ml Balance -200 ml 680 ml IV Total 800 ml Tube Feeding 480 ml Output Urine Total 200 ml 600 ml Laboratory Tests 02/12/18 06:15: White Blood Count 7.6, Red Blood Count 5.10, Hemoglobin 15.9, Hematocrit 47.9H, Mean Corpuscular Volume 94, Mean Corpuscular Hemoglobin 31.3H, Mean Corpuscular Hemoglobin Concent 33.3, Red Cell Distribution Width 11.7, Platelet Count 324, Mean Platelet Volume 6.0L, Neutrophils (%) (Auto) 53.6, Lymphocytes (%) (Auto) 32.6, Monocytes (%) (Auto) 7.5, Eosinophils (%) (Auto) 5.3H, Basophils (%) (Auto ) 1.0, Sodium Level 138, Potassium Level 4.4, Chloride Level 104, Carbon Dioxide Level 26, Anion Gap 8, Blood Urea Nitrogen 10, Creatinine 0.4L, Estimat Glomerular Filtration Rate , Glucose Level 113H, Calcium Level 9.7, Magnesium Level 1.9 Height (Feet): 5 Height (Inches): 6.00 Weight (Pounds): 135 Objective Elderly Woman NCAT supple CTA RRR soft ND NT no edema nonfocal Staci Lawrence MD Feb 12, 2018 22:15
[2018-02-13] VITALS (7 sets, daily range): BP systolic 121–142; BP diastolic 47–66
[2018-02-13] MEDS: dilTIAZem HCl 60mg tab GT SCH ×2 (06:36→14:52)
[2018-02-13 09:51] LABS: EOSINOPHILS % (AUTO) 5.5 % (0.0-3.0); HEMATOCRIT 43.4 % (37.0-47.0); HEMOGLOBIN 14.6 G/DL (12.0-16.0); LYMPHOCYTES % (AUTO) 32.5 % (20.0-45.0); MEAN CORPUSCULAR VOLUME 93 FL (80-99); MONOCYTES % (AUTO) 9.6 % (1.0-10.0); NEUTROPHILS % (AUTO) 51.4 % (45.0-75.0); PLATELET COUNT 284 K/UL (150-450); RED BLOOD COUNT 4.65 M/UL (4.20-5.40); RED CELL DISTRIBUTION WIDTH 11.3 % (11.6-14.8); WHITE BLOOD COUNT 7.5 K/UL (4.8-10.8)
[2018-02-13 10:05] LABS: ANION GAP 7 mmol/L (5-15); BLOOD UREA NITROGEN 10 mg/dL (7-18); CALCIUM 9.3 MG/DL (8.5-10.1); CARBON DIOXIDE 27 MMOL/L (21-32); CHLORIDE 104 MMOL/L (98-107); CREATININE 0.4 MG/DL (0.55-1.30); POTASSIUM 4.2 MMOL/L (3.5-5.1); SODIUM 138 MMOL/L (136-145)
[2018-02-13] MEDS: Vancomycin 1gm/D5W 275ml IVPB SCH ×4 (11:26→19:00)
[2018-02-13] MEDS ORDERED: RISPERDAL1 MG GT (13:14)
[2018-02-13] MEDS ORDERED: CEPHALEXIN500 MG ORAL (13:16)
[2018-02-13] MEDS ORDERED: BACTRIM DS TAB1 EAC1 ORAL (13:16)
--- NOTE | 2018-02-13 14:15 | General Progress Note ---
Assessment/Plan Status: stable Assessment/Plan # DVT bilateral history currently is off of eliquis given recently BRBPR --> in the past imaging of the lower extremities has been negative --> repeat venous duplex to see if any remains of dvt of the lower ext --> no history of pulm embolism --> generally required to have 3 mo of anticoag, if no history of recurrence, consider to d/c eliquis # Elevated CEA in the past 10.1 in 2014 --> has been reordered # BRBPR suspect 2/2 hemorrhoids --> appreciate gi recs --> IVF --> monitor overnight with serial h/h --> transfuse for hgb < 7; suspect downtrend in hgb because patient is very dry --> eliquis has been held since december # UTI --> rocephin --> IVF --> blood and urine cultures - no grwoth after 24 hrs. # Dehydration --> TF through GT w FWF --> IVF's Greatly appreciate consultation! Subjective Date patient seen: Feb 13, 2018 Hematologic/Lymphatic: Reports: anemia Allergies: Coded Allergies: NO KNOWN DRUG ALLERGIES (Unverified Allergy, Unknown, 07/29/14) All Systems: reviewed and negative except above Subjective No acute events. Pt in stable condition. VS stable. Objective Last 24 Hour Vital Signs Date Time Temp Pulse Resp B/P (MAP) Pulse Ox O2 Delivery O2 Flow Rate FiO2 02/13/18 12:00 97.8 83 18 125/60 (81) 95 97.8 02/13/18 09:00 Room Air 02/13/18 08:00 97.3 100 18 125/66 (85) 94 97.3 02/13/18 06:36 70 121/55 02/13/18 04:02 97.7 70 22 121/55 (77) 96 97.7 02/13/18 00:00 97.9 88 22 127/66 (86) 95 97.9 02/12/18 21:00 Room Air 02/12/18 20:58 94 122/64 02/12/18 20:00 97.8 92 22 127/64 (85) 95 97.8 02/12/18 16:00 98.0 88 18 120/68 (85) 100 98.0 Intake and Output 02/12/18 02/13/18 19:00 07:00 Intake Total 2475 ml 2050 ml Output Total 1400 ml 600 ml Balance 1075 ml 1450 ml IV Total 1305 ml 1000 ml Tube Feeding 720 ml 600 ml Blood Product 450 ml 450 ml Output Urine Total 1400 ml 600 ml # Voids 5 # Bowel Movements 1 Laboratory Tests 02/13/18 09:30: White Blood Count 7.5, Red Blood Count 4.65, Hemoglobin 14.6, Hematocrit 43.4, Mean Corpuscular Volume 93, Mean Corpuscular Hemoglobin 31.3H, Mean Corpuscular Hemoglobin Concent 33.5, Red Cell Distribution Width 11.3L, Platelet Count 284, Mean Platelet Volume 6.3L, Neutrophils (%) (Auto) 51.4, Lymphocytes (%) (Auto) 32.5, Monocytes (%) (Auto) 9.6, Eosinophils (%) (Auto) 5.5H, Basophils (%) (Auto ) 1.0, Sodium Level 138, Potassium Level 4.2, Chloride Level 104, Carbon Dioxide Level 27, Anion Gap 7, Blood Urea Nitrogen 10, Creatinine 0.4L, Estimat Glomerular Filtration Rate , Glucose Level 119H, Calcium Level 9.3, Vancomycin Level Trough 2.4L Height (Feet): 5 Height (Inches): 6.00 Weight (Pounds): 156 General Appearance: no apparent distress EENT: PERRL/EOMI Neck: normal alignment Cardiovascular: normal peripheral pulses Respiratory/Chest: no respiratory distress Abdomen: soft Migule Hunt MD Feb 13, 2018 14:15
--- NOTE | 2018-02-13 15:16 | Cardiac Electrophysiology PN ---
Assessment/Plan Assessment/Plan 1. Recurrent supraventricular tachycardia. Treat medically in view of her advanced dementia. Hold off on electrophysiology study and ablation at this point. On Cardizem 60 mg three times daily. If she has recurrent SVT, I will start the patient on digoxin as well. 2. Dementia. 3. Dysphagia, status post PEG placement. 4. Rectal bleeding. Further evaluation by Dr. Lawrence. Subjective Subjective Feeling better. No CP or SOB. Pleasantly confused. Objective Last 24 Hour Vital Signs Date Time Temp Pulse Resp B/P (MAP) Pulse Ox O2 Delivery O2 Flow Rate FiO2 02/13/18 14:52 83 125/60 02/13/18 12:00 97.8 83 18 125/60 (81) 95 97.8 02/13/18 09:00 Room Air 02/13/18 08:00 97.3 100 18 125/66 (85) 94 97.3 02/13/18 06:36 70 121/55 02/13/18 04:02 97.7 70 22 121/55 (77) 96 97.7 02/13/18 00:00 97.9 88 22 127/66 (86) 95 97.9 02/12/18 21:00 Room Air 02/12/18 20:58 94 122/64 02/12/18 20:00 97.8 92 22 127/64 (85) 95 97.8 02/12/18 16:00 98.0 88 18 120/68 (85) 100 98.0 Intake and Output 02/12/18 02/13/18 19:00 07:00 Intake Total 2475 ml 2050 ml Output Total 1400 ml 600 ml Balance 1075 ml 1450 ml IV Total 1305 ml 1000 ml Tube Feeding 720 ml 600 ml Blood Product 450 ml 450 ml Output Urine Total 1400 ml 600 ml # Voids 5 # Bowel Movements 1 Laboratory Tests Test 02/13/18 09:30 White Blood Count 7.5 K/UL (4.8-10.8) Red Blood Count 4.65 M/UL (4.20-5.40) Hemoglobin 14.6 G/DL (12.0-16.0) Hematocrit 43.4 % (37.0-47.0) Mean Corpuscular Volume 93 FL (80-99) Mean Corpuscular Hemoglobin 31.3 PG (27.0-31.0) H Mean Corpuscular Hemoglobin Concent 33.5 G/DL (32.0-36.0) Red Cell Distribution Width 11.3 % (11.6-14.8) L Platelet Count 284 K/UL (150-450) Mean Platelet Volume 6.3 FL (6.5-10.1) L Neutrophils (%) (Auto) 51.4 % (45.0-75.0) Lymphocytes (%) (Auto) 32.5 % (20.0-45.0) Monocytes (%) (Auto) 9.6 % (1.0-10.0) Eosinophils (%) (Auto) 5.5 % (0.0-3.0) H Basophils (%) (Auto) 1.0 % (0.0-2.0) Sodium Level 138 MMOL/L (136-145) Potassium Level 4.2 MMOL/L (3.5-5.1) Chloride Level 104 MMOL/L (98-107) Carbon Dioxide Level 27 MMOL/L (21-32) Anion Gap 7 mmol/L (5-15) Blood Urea Nitrogen 10 mg/dL (7-18) Creatinine 0.4 MG/DL (0.55-1.30) L Estimat Glomerular Filtration Rate mL/min (>60) Glucose Level 119 MG/DL (74-106) H Calcium Level 9.3 MG/DL (8.5-10.1) Vancomycin Level Trough 2.4 ug/mL (5.0-12.0) L Microbiology Date/Time Source Procedure Growth Status 02/10/18 17:18 Blood Blood Culture - Preliminary NO GROWTH AFTER 48 HOURS Resulted 02/10/18 17:15 Blood Blood Culture - Preliminary NO GROWTH AFTER 48 HOURS Resulted Objective HEAD AND NECK: No JVD. LUNGS: Clear. CARDIOVASCULAR: Regular S1 and S2 with no gallop or murmur. ABDOMEN: Status post G-tube. EXTREMITIES: No pitting edema. Bret Morrow MD Feb 13, 2018 15:16
--- NOTE | 2018-02-13 15:57 | General Progress Note ---
Assessment/Plan Problem List: (1) Gram-positive bacteremia ICD Codes: R78.81 - Bacteremia SNOMED: 995473929503 (2) Bright red blood per rectum ICD Codes: K62.5 - Hemorrhage of anus and rectum SNOMED: 160663149 (3) UTI (urinary tract infection) ICD Codes: N39.0 - Urinary tract infection, site not specified SNOMED: 81721342 Assessment/Plan Gram positive bacteremia, 2/2 bottles repeat neg thus far staph coag neg possible contamination repeat cx and follow ID recs -on vanco and rocephin - ID consult appreciated switched to oral abx BRBPR - suspect 2/2 hemorrhoids - IVF - monitor overnight with serial h/h, currently stable - transfuse for hgb < 7; suspect downtrend in hgb because patient is very dry - appreciate GI reqs - eliquis has been held since December UTI - c/w rocephin - follow Cx sens SVT - cardiology consult, appreciate recs - 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[employer] H/O DVT - patient is bedbound - if patient shows no signs of bleeding risks of anticoag outweight benefits currently c/w scd Dehydration - TF through GT w FWF - IVF's Hypothyroid - levothyroxine 50 mcg Discharge planning Subjective Date patient seen: Feb 13, 2018 Time patient seen: 11:00 Allergies: Coded Allergies: NO KNOWN DRUG ALLERGIES (Unverified Allergy, Unknown, 07/29/14) Subjective Pt seen and examined, doing okay overall, no new issues per nursing, Pt denies any pain Objective Last 24 Hour Vital Signs Date Time Temp Pulse Resp B/P (MAP) Pulse Ox O2 Delivery O2 Flow Rate FiO2 02/13/18 14:52 83 125/60 02/13/18 12:00 97.8 83 18 125/60 (81) 95 97.8 02/13/18 09:00 Room Air 02/13/18 08:00 97.3 100 18 125/66 (85) 94 97.3 02/13/18 06:36 70 121/55 02/13/18 04:02 97.7 70 22 121/55 (77) 96 97.7 02/13/18 00:00 97.9 88 22 127/66 (86) 95 97.9 02/12/18 21:00 Room Air 02/12/18 20:58 94 122/64 10/16/18 20:00 97.8 92 22 127/64 (85) 95 97.8 02/12/18 16:00 98.0 88 18 120/68 (85) 100 98.0 Intake and Output 02/12/18 02/13/18 19:00 07:00 Intake Total 2475 ml 2050 ml Output Total 1400 ml 600 ml Balance 1075 ml 1450 ml IV Total 1305 ml 1000 ml Tube Feeding 720 ml 600 ml Blood Product 450 ml 450 ml Output Urine Total 1400 ml 600 ml # Voids 5 # Bowel Movements 1 Laboratory Tests 02/13/18 09:30: White Blood Count 7.5, Red Blood Count 4.65, Hemoglobin 14.6, Hematocrit 43.4, Mean Corpuscular Volume 93, Mean Corpuscular Hemoglobin 31.3H, Mean Corpuscular Hemoglobin Concent 33.5, Red Cell Distribution Width 11.3L, Platelet Count 284, Mean Platelet Volume 6.3L, Neutrophils (%) (Auto) 51.4, Lymphocytes (%) (Auto) 32.5, Monocytes (%) (Auto) 9.6, Eosinophils (%) (Auto) 5.5H, Basophils (%) (Auto ) 1.0, Sodium Level 138, Potassium Level 4.2, Chloride Level 104, Carbon Dioxide Level 27, Anion Gap 7, Blood Urea Nitrogen 10, Creatinine 0.4L, Estimat Glomerular Filtration Rate , Glucose Level 119H, Calcium Level 9.3, Vancomycin Level Trough 2.4L Height (Feet): 5 Height (Inches): 6.00 Weight (Pounds): 156 Nissa Paula D.O. Feb 13, 2018 15:57
[2018-02-13] MEDS: cefTRIAXone 2 GM in D5W 55 ML IVPB SCH (17:28)
--- NOTE | 2018-02-13 22:15 | Progress Note ---
DATE: 02/13/2018 SUBJECTIVE: The patient is calm. Still has waxing and waning consciousness, episodes of confusion, not engaged during the evaluation. MENTAL STATUS EXAMINATION: The patient is alert and oriented times self and place. Mood is dysphoric and anxious. Affect is constricted, congruent with mood. Thought process is concrete. Thought content, no suicidal or homicidal ideation. ASSESSMENT: 1. Schizophrenia. 2. Dementia with behavioral disturbance. PLAN: 1. We will continue Depakote. 2. Continue the risperidone. Burak Viera M.D. DR: MARIO JOB#: [id number] CC:
--- NOTE | 2018-02-13 23:08 | General Progress Note ---
Assessment/Plan Assessment/Plan Assessment - episodic small volume hematochezia, likely hemorrhoidal - Chronic constipation - OB (-) recently, and not anemic - discussed with DTR - wants to hold off on colonoscopy at this time - UTI - recent seizure - OBS - s/p PEG - h/o Trach Recommendations - Bowel regimen - follow symptoms and labs - no plans for colonoscopy at this time, per family directive - Abx Subjective Allergies: Coded Allergies: NO KNOWN DRUG ALLERGIES (Unverified Allergy, Unknown, 07/29/14) Subjective above noted no overnight issues tolerating TF comfortable Objective Last 24 Hour Vital Signs Date Time Temp Pulse Resp B/P (MAP) Pulse Ox O2 Delivery O2 Flow Rate FiO2 02/13/18 20:00 98.0 74 16 142/47 (78) 92 98.0 02/13/18 16:00 97.5 86 18 123/63 (83) 95 97.5 02/13/18 14:52 83 125/60 02/13/18 12:00 97.8 83 18 125/60 (81) 95 97.8 02/13/18 09:00 Room Air 02/13/18 08:00 97.3 100 18 125/66 (85) 94 97.3 02/13/18 06:36 70 121/55 02/13/18 04:02 97.7 70 22 121/55 (77) 96 97.7 02/13/18 00:00 97.9 88 22 127/66 (86) 95 97.9 Intake and Output 02/12/18 02/13/18 19:00 07:00 Intake Total 2475 ml 2050 ml Output Total 1400 ml 600 ml Balance 1075 ml 1450 ml IV Total 1305 ml 1000 ml Tube Feeding 720 ml 600 ml Blood Product 450 ml 450 ml Output Urine Total 1400 ml 600 ml # Voids 5 # Bowel Movements 1 Laboratory Tests 02/13/18 09:30: White Blood Count 7.5, Red Blood Count 4.65, Hemoglobin 14.6, Hematocrit 43.4, Mean Corpuscular Volume 93, Mean Corpuscular Hemoglobin 31.3H, Mean Corpuscular Hemoglobin Concent 33.5, Red Cell Distribution Width 11.3L, Platelet Count 284, Mean Platelet Volume 6.3L, Neutrophils (%) (Auto) 51.4, Lymphocytes (%) (Auto) 32.5, Monocytes (%) (Auto) 9.6, Eosinophils (%) (Auto) 5.5H, Basophils (%) (Auto ) 1.0, Sodium Level 138, Potassium Level 4.2, Chloride Level 104, Carbon Dioxide Level 27, Anion Gap 7, Blood Urea Nitrogen 10, Creatinine 0.4L, Estimat Glomerular Filtration Rate , Glucose Level 119H, Calcium Level 9.3, Vancomycin Level Trough 2.4L Height (Feet): 5 Height (Inches): 6.00 Weight (Pounds): 156 Objective Elderly Woman NCAT supple CTA RRR soft ND NT no edema nonfocal Staci Lawrence MD Feb 13, 2018 23:08
--- NOTE | 2018-02-13 23:35 | Discharge Summary ---
Discharge Summary Hospital Course Date of Admission Feb 12, 2018 at 14:11 Date of Discharge Feb 13, 2018 at 20:15 Admitting Diagnosis GI BLEED HPI Erica Gee is a 87 year old female who was admitted on Feb 12, 2018 at 14:11 for Gastric Intestinal Bleed 86 year oldfemalewith pmh of Alzheimer's dementia, schizophrenia, seizure d/o , DVT/PE (on elaquis until december when had bleeding episode), pSVT, TIA/CVA, asthma, anxiety, recurrent aspiration pneumonia, recent intubation 03/2017, s/p PEG // who [facility] from [facility] for [facility]. Unable to get history from patient 2/2 dementia even when spoken to in haitian. Patient also was found to have a + UA. History obtained from EMR. Per [facility] patient had an episode of BRBPR in december and since then her eliquis has been held however she had another episode last night and was therefore [place] [facility] Course Pt was admitted for further care. Bleeding was suspected from hemmorhoids which stopped on day 1. Anticoagulation was held. Urine culture showed Proteus. Blood cultures grew staph which was coag neg. ID was consulted and assisted in care throughout hospital course. Decision was made to transition from IV Rocephin and Vanco to PO abx on discharge to include keflex and bactrim. Pt was subsequently discharged. Discharge Medications New Medications: Cephalexin* (Keflex*) 500 Mg Capsule 500 MG ORAL EVERY 6 HOURS for 5 Days, #20 CAP Trimethoprim/Sulfamethoxazole 160/800* (Bactrim Ds Tablet*) 1 Each Tablet 1 TAB ORAL Q12H for 5 Days, #10 TAB 0 Refills Risperidone* (Risperdal*) 1 Mg Tablet 1 MG GT BEDTIME PRN for 30 Days, TAB Continued Medications: Acetaminophen (Acetaminophen) 650 Mg/20.3 Ml Soln 650 MG GT Q4HR PRN for Prn Headache/Temp > 101, ML 0 Refills Acidophilus/Bulgaricus (Floranex Tablet) 1 Each Tablet 1 EACH PO BID, TAB Albuterol Sulfate* (Albuterol Sulfate Hhn*) 2.5 Mg/3 Ml Vial.neb 3 ML INH Q4H PRN for Shortness of Breath, EA (This prescription has been renewed ) Aspirin* (Aspir 81*) 81 Mg Tablet. 81 MG GT DAILY, TAB (This prescription has been renewed) Atorvastatin Calcium* (Lipitor*) 10 Mg Tablet 10 MG ORAL BEDTIME, TAB (This prescription has been renewed) Calcitonin,[place],Synthetic (Calcitonin-[place]) 3.7 Ml [place].pump 3.7 ML NS DAILY Cholecalciferol (Vitamin D3)* (Vitamin D*) 1,000 Unit Tablet 5000 UNIT GT DAILY, #30 TAB (This prescription has been renewed) Diltiazem HCl (Diltiazem 12Hr ER) 60 Mg Cap.er.12h 30 MG ORAL EVERY 6 HOURS for 30 Days, CAP Docusate Sodium* (Docusate Sodium*) 100 Mg Capsule 100 MG GT TWICE A DAY, CAP Ergocalciferol (Vitamin D2)* (Vitamin D*) 50,000 Unit Capsule 51091 UNIT ORAL ONCE A WEEK, CAP (This prescription has been renewed) Ferrous Sulfate* (Ferrous Sulfate*) 325 Mg Tablet 325 MG ORAL DAILY, #30 TAB 0 Refills (This prescription has been renewed) Levothyroxine Sodium (Synthroid) 137 Mcg Tablet 50 MCG ORAL DAILY, TAB (This prescription has been renewed) Take in the morning on an empty stomach, at least 30 minutes before food. Memantine Hcl* (Namenda*) 10 Mg Tablet 10 MG ORAL TWICE A DAY, TAB Multivitamin With Minerals (Multivitamins With Minerals*) 1 Each Tablet 1 TAB ORAL DAILY, TAB Olanzapine* (Zyprexa*) 5 Mg Tablet 5 MG ORAL HS, TAB Simvastatin (Zocor) 20 Mg Tablet 20 MG ORAL BEDTIME, TAB Discontinued Medications: Apixaban (Eliquis) 5 Mg Tablet 5 MG GT BID, TAB Digoxin* (Lanoxin*) 250 Mcg Tablet 0.25 MG ORAL DAILY for 30 Days, TAB Divalproex Sodium* (Depakote*) 250 Mg Tablet. 250 MG GT Q12HR, TAB Doxazosin Mesylate* (Cardura*) 1 Mg Tablet 2 MG ORAL DAILY, TAB Ferrous Sulfate* (Ferrous Sulfate*) 325 Mg Tablet 220 MG ORAL DAILY, #30 TAB 0 Refills Fluvoxamine Maleate (Fluvoxamine Maleate) 50 Mg Tab 50 MG ORAL BID, #10 TAB 0 Refills Folic Acid (Folic Acid) 0.8 Mg Tablet 1 MG ORAL DAILY, TAB Glucagon (Glucagen) 1 Mg/1 Ml Vial 1 MG IJ, VIAL Hydrocodone Bit/Acetaminophen 10-325* ([place] 10-325*) 1 Each Tablet 1 TAB ORAL, TAB 0 Refills PRN PAIN Hydrocodone Bit/Acetaminophen 10-325* ([place] 10-325*) 1 Each Tablet 1 TAB ORAL Q4H PRN for For Pain, TAB 0 Refills PRN PAIN Hydrocodone Bit/Acetaminophen 5-325* ([place] 5-325*) 1 Each Tablet 1 TAB ORAL Q4H PRN for For Pain, TAB 0 Refills Lactobacillus Acidophilus (Acidophilus) 1 Each Capsule 1 EACH PO, CAP Lactobacillus Acidophilus/Pect (Acidophilus-Pectin Capsule) 1 Each Capsule 1 EACH PO, CAP Lactobacillus Cmb#7/Fos/Inulin (Probiotic Complex Tablet) 1 Each Tablet Unknown Dose PO DAILY, TAB Lactulose (Lactulose*) 20 Gm/30 Ml Solution 30 ML ORAL DAILY, ML 0 Refills Levothyroxine Sodium* (Levothyroxine Sodium*) 50 Mcg Tablet 50 MCG ORAL DAILY, TAB Take in the morning on an empty stomach, at least 30 minutes before food. Lidocaine (Lidocaine) 700 Mg Adh..patch 1400 MG TP DAILY, PATCH Lorazepam* (Ativan*) 2 Mg/1 Ml Vial 2 MG PO PRN PRN for Agitation, VIAL Melatonin (Melatonin) 1 Mg Tab.subl 1 MG PO BEDTIME PRN for Insomnia, TAB Melatonin (Melatonin) 3 Mg Tablet 3 MG ORAL QPM PRN for 90 Days, #90 TAB 3 Refills Memantine Hcl* (Namenda*) 10 Mg Tablet 10 MG ORAL TWICE A DAY, TAB Olanzapine* (Zyprexa*) 10 Mg Tablet 10 MG ORAL DAILY, #30 TAB 0 Refills Olanzapine* (Zyprexa*) 10 Mg Tablet 10 MG ORAL BID, #30 TAB 0 Refills Divide-3 Fatty Acids/Fish Oil (Fish Oil 1,000 Mg Capsule) 1 Each Capsule 1 CAP ORAL BID, #30 CAP 0 Refills Pantoprazole* (Pantoprazole*) 40 Mg Tablet.dr 40 MG ORAL DAILY, TAB Pantoprazole* (Protonix*) 40 Mg Tablet.dr 40 MG ORAL DAILY, TAB Ranitidine Hcl* (Zantac*) 150 Mg Tablet 150 MG ORAL TWICE A DAY, TAB Solifenacin Succinate (Vesicare*) 10 Mg Tablet 10 MG ORAL HS, TAB Discharge Discharge Disposition Patient was discharged to SNF. DC process took >35 mins. Nissa Paula D.O. Feb 13, 2018 23:35
--- NOTE | 2018-02-15 17:09 | Diagnostic Imaging Report ---
Indications: Reason For Exam: DYSPHAGIA Technique: Patient ingested multiple substances under the supervision of speech pathology. Video fluoroscopic recording performed. Total fluoroscopy time 0.5 seconds. Total dose area product [id number] mGycm2 Comparison: none Findings: Prompt initiation of deglutition. No evidence of aspiration or penetration. No significant delayed pooling Impression: Negative for evidence of aspiration or penetration Please refer to speech pathology report for more detailed analysis
--- NOTE | 2018-02-17 22:24 | Diagnostic Imaging Report ---
APPROVED REPORT CPT Code: 22694 Present Symptoms Lower Extremity Pain: Bilateral RIGHT LEG: Venous imaging reveals recanalized chronic thrombus in the common femoral, superficial femoral, and popliteal veins. Large collateral vein noted anterior to the superficial femoral artery. The remainder of the deep venous system is within normal limits. There is no evidence of thrombus in the calf veins. The greater saphenous vein is also within normal limits. Doppler indicates normal spontaneous flow within these segments. LEFT LEG: Venous imaging reveals recanalized chronic thrombus in the common femoral, superficial femoral, and popliteal veins. Large collateral vein noted anterior to the superficial femoral artery. The remainder of the deep venous system is within normal limits. There is no evidence of thrombus in the calf veins. The greater saphenous vein is also within normal limits. Doppler indicates normal spontaneous flow within these segments. There is no evidence of acute deep vein thrombosis.
== END 2018-02-13 20:15 | DRG 393 ==
LOC: EDBD 11:48 → EMR 12:50 → INTOOBSV 12:58 → OBSVTOIN 12:58 → 2E 12:58 → EDBEDREQ 13:11 → 2E 17:57 → 3E 02-11 20:25 → OBSVTOIN 02-12 14:11
DX: K64.8 Other hemorrhoids (principal); A41.9 Sepsis, unspecified organism; N39.0 Urinary tract infection, site not specified; F02.81 Dementia in other diseases classified elsewhere, unspecified severity, with behavioral disturbance; I82.513 Chronic embolism and thrombosis of femoral vein, bilateral; I82.533 Chronic embolism and thrombosis of popliteal vein, bilateral; I47.1 Supraventricular tachycardia; G30.9 Alzheimer's disease, unspecified; F20.9 Schizophrenia, unspecified; G40.909 Epilepsy, unspecified, not intractable, without status epilepticus; Z86.73 Personal history of transient ischemic attack (TIA), and cerebral infarction without residual deficits; Z93.1 Gastrostomy status; R13.10 Dysphagia, unspecified; E86.0 Dehydration; E03.9 Hypothyroidism, unspecified; I10 Essential (primary) hypertension; J45.909 Unspecified asthma, uncomplicated; E78.5 Hyperlipidemia, unspecified; E11.9 Type 2 diabetes mellitus without complications; F41.9 Anxiety disorder, unspecified; K59.00 Constipation, unspecified
CPT/HCPCS: 36415; 71045; 74230; 80048; 80053; 80202; 81003; 82378; 83690; 83735; 84100; 84132; 84443; 84484; 85025; 85610; 85730; 86850; 86900; 86901; 87040; 87081; 87086; 87181; 93005; 93306; 93970; 96361; 96365; 96375; 99285

== ENCOUNTER 2018-03-06 10:06 | Inpatient (IN) | payer MEDICARE, MEDICAID ==
[~2018-03-06] VITALS: Ht 162.6 cm; Wt 64.0 kg
[~2018-03-06 10:06] MED LIST changes: +ALBUTEROL2.5 MG/3 M INH; +ASPIR 8181 MG GT; +ATORVASTATIN CA10 MG ORAL; +BACTRIM DS TAB1 EAC1 ORAL; +CEPHALEXIN500 MG ORAL; +FOLIC ACID0.8 MG ORAL; +GLUCAGON W/DILUE1 MG IJ; +LACTULOSE20 GM/301 ORAL; +NORCO 5-325 TA1 EACH ORAL; +RISPERDAL1 MG GT; +SYNTHROID137 MCG ORAL; +VITAMIN D1000 UNI1 GT
[2018-03-06] MEDS ORDERED: Sodium Chloride 500ML 550 ML IV SCH (10:15)
[2018-03-06] MEDS ORDERED: Piperacillin/Tazobactam 3.375 GM in NS 110 ML IVPB ONE (10:45)
[2018-03-06 10:52] LABS: BASOPHILS % (AUTO) 0.8 % (0.0-2.0); EOSINOPHILS % (AUTO) 5.7 % (0.0-3.0); HEMATOCRIT 44.9 % (37.0-47.0); HEMOGLOBIN 14.8 G/DL (12.0-16.0); LYMPHOCYTES % (AUTO) 32.6 % (20.0-45.0); MEAN CORPUSCULAR VOLUME 92 FL (80-99); MONOCYTES % (AUTO) 8.9 % (1.0-10.0); PLATELET COUNT 224 K/UL (150-450); RED BLOOD COUNT 4.86 M/UL (4.20-5.40); RED CELL DISTRIBUTION WIDTH 11.7 % (11.6-14.8); WHITE BLOOD COUNT 8.2 K/UL (4.8-10.8)
--- NOTE | 2018-03-06 10:52 | Emergency Room Report ---
History of Present Illness General Chief Complaint: Dyspnea/Respdistress Source: Patient, EMS Present Illness HPI Patient was brought by EMS after respiratory distress. Her initial O2 saturation was 89%. She has a history of pneumonia. The patient denies shortness of breath or chest pain at this time. The patient denies almost all symptoms. She denies nausea vomiting diarrhea constipation dysuria joint pain headache rashes. H/O dementia H/O G tube H/O seizures H/O DVT Allergies: Coded Allergies: NO KNOWN DRUG ALLERGIES (Unverified Allergy, Unknown, 07/29/14) Patient History Past Medical History: see triage record Social History: Denies: smoking, alcohol use Social History Narrative born in [facility] DNR/DNI Reviewed Nursing Documentation: PMH: Agreed; PSxH: Agreed Nursing Documentation-PMH Past Medical History: No History, Except For Hx Cardiac Problems: No - anemia, hyperlipidemia, hypothyroidism Hx Hypertension: Yes - Pulmonary Hx Asthma: Yes Hx COPD: No - hx of PNEUMONIA Hx Diabetes: Yes Hx Cancer: No Hx Gastrointestinal Problems: No - GERD, g-tube Hx Neurological Problems: Yes Hx Cerebrovascular Accident: Yes Hx Dementia: Yes Hx Alzheimer's Disease: Yes Hx Seizures: Yes Hx Memory Loss: Yes Hx Concentration Difficulty: Yes Review of Systems All Other Systems: negative except mentioned in HPI Physical Exam Vital Signs Date Time Temp Pulse Resp B/P (MAP) Pulse Ox O2 Delivery O2 Flow Rate FiO2 03/06/18 10:02 98.1 96 18 133/55 98 Non-Rebreather 10.0 Sp02 EP Interpretation: reviewed, normal - although on non-rebreather General Appearance: well appearing, no apparent distress, GCS 15, non-toxic Head: normocephalic, atraumatic Eyes: bilateral eye normal inspection, bilateral eye PERRL ENT: moist mucus membranes - poor dentition Neck: supple Respiratory: crackles - R base Cardiovascular #1: regular rate, rhythm Cardiovascular #2: 2+ radial (R) Gastrointestinal: normal inspection, normal bowel sounds, non tender, no mass, non-distended Musculoskeletal: back normal, gait/station normal, normal range of motion Neurologic: alert, motor strength/tone normal, DTRs symmetric, sensory intact, speech normal, oriented - X2 Psychiatric: mood/affect normal Skin: normal inspection, warm/dry Medical Decision Making Diagnostic Impression: Primary Impression: Hypoxia Additional Impressions: Pneumonia Qualified Codes: J18.1 - Lobar pneumonia, unspecified organism Dementia Qualified Codes: G30.9 - Alzheimer's disease, unspecified; F02.80 - Dementia in other diseases classified elsewhere without behavioral disturbance ER Course Patient presents with hypoxia and dyspnea. Differential includes acute myocardial infarction, congestive heart failure, pneumonia, bronchospasm, PE amongst others. Exam is consistent with possible pneumonia. The patient will be evaluated with EKG, chest x-ray and labs. The patient will receive gentle IV hydration. EKG with sinus rhythm rate of 94 normal EKG. Chest x-ray with right lower lobe infiltrates and possible effusion. WBC normal. Elevated BUN. Antibiotics are begun for the abnormal x-ray. Patient needs admission to the hospital for further evaluation. Admit med Dr. Bustamante - discussed with Dr. Choudhury. Laboratory Tests Test 03/06/18 10:35 03/06/18 15:55 White Blood Count 8.2 K/UL (4.8-10.8) Red Blood Count 4.86 M/UL (4.20-5.40) Hemoglobin 14.8 G/DL (12.0-16.0) Hematocrit 44.9 % (37.0-47.0) Mean Corpuscular Volume 92 FL (80-99) Mean Corpuscular Hemoglobin 30.5 PG (27.0-31.0) Mean Corpuscular Hemoglobin Concent 33.0 G/DL (32.0-36.0) Red Cell Distribution Width 11.7 % (11.6-14.8) Platelet Count 224 K/UL (150-450) Mean Platelet Volume 7.2 FL (6.5-10.1) Neutrophils (%) (Auto) 52.0 % (45.0-75.0) Lymphocytes (%) (Auto) 32.6 % (20.0-45.0) Monocytes (%) (Auto) 8.9 % (1.0-10.0) Eosinophils (%) (Auto) 5.7 % (0.0-3.0) H Basophils (%) (Auto) 0.8 % (0.0-2.0) Prothrombin Time 11.3 SEC (9.30-11.50) Prothrombin Time INR 1.1 (0.9-1.1) PTT 25 SEC (23-33) D-Dimer 0.44 mg/L FEU (0.00-0.49) Sodium Level 142 MMOL/L (136-145) Potassium Level 4.2 MMOL/L (3.5-5.1) Chloride Level 106 MMOL/L (98-107) Carbon Dioxide Level 27 MMOL/L (21-32) Anion Gap 9 mmol/L (5-15) Blood Urea Nitrogen 23 mg/dL (7-18) H Creatinine 0.5 MG/DL (0.55-1.30) L Estimate Glomerular Filtration Rate mL/min (>60) Glucose Level 121 MG/DL (74-106) H Lactic Acid Level 1.20 mmol/L (0.4-2.0) Calcium Level 9.7 MG/DL (8.5-10.1) Total Bilirubin 0.3 MG/DL (0.2-1.0) Aspartate Amino Transferase (AST) 18 U/L (15-37) Alanine Aminotransferase (ALT) 22 U/L (12-78) Alkaline Phosphatase 93 U/L (46-116) Total Creatine Kinase 21 U/L (26-308) L Troponin I 0.000 ng/mL (0.000-0.056) Pro-B-Type Natriuretic Peptide 162 pg/mL (0-125) H Total Protein 7.8 G/DL (6.4-8.2) Albumin 3.2 G/DL (3.4-5.0) L Globulin 4.6 g/dL Albumin/Globulin Ratio 0.7 (1.0-2.7) L Arterial Blood pH 7.408 (7.350-7.450) Arterial Blood Partial Pressure CO2 42.7 mmHg (35.0-45.0) Arterial Blood Partial Pressure O2 72.3 mmHg (75.0-100.0) L Arterial Blood HCO3 26.3 mmol/L (22.0-26.0) H Arterial Blood Oxygen Saturation 94.1 % (95-100) L Arterial Blood Base Excess 1.4 (-2-2) Kelvin Test Positive EKG Diagnostic Results Rate: normal Rhythm: NSR ST Segments: no acute changes Rhythm Strip Diag. Results EP Interpretation: yes Rhythm: NSR, no PVC's, no ectopy Chest X-Ray Diagnostic Results Chest X-Ray Diagnostic Results : Chest X-Ray Ordered: Yes # of Views/Limited/Complete: 1 View Indication: Shortness of Breath EP Interpretation: Yes Interpretation: no pneumothorax, other - RLL infiltrate and poss effusion Impression: Other Electronically Signed by: Electronically signed by Joshua Pearson MD Last Vital Signs Date Time Temp Pulse Resp B/P (MAP) Pulse Ox O2 Delivery O2 Flow Rate FiO2 03/06/18 19:41 83 20 99 Room Air 03/06/18 18:00 97/61 03/06/18 16:00 97.9 03/06/18 12:55 10.0 Status: improved Disposition: ADMITTED INPATIENT Condition: Serious Referrals: María Bustamante MD (PCP) Joshua Pearson MD Mar 06, 2018 10:52
[2018-03-06 11:01] LABS: ANION GAP 9 mmol/L (5-15); BLOOD UREA NITROGEN 23 mg/dL (7-18); CALCIUM 9.7 MG/DL (8.5-10.1); CARBON DIOXIDE 27 MMOL/L (21-32); CHLORIDE 106 MMOL/L (98-107); CREATININE 0.5 MG/DL (0.55-1.30); POTASSIUM 4.2 MMOL/L (3.5-5.1); SODIUM 142 MMOL/L (136-145)
[2018-03-06 11:03] LABS: INR 1.1 (0.9-1.1)
[2018-03-06 11:04] VITALS: BP 111/65
[2018-03-06 11:11] LABS: ALANINE AMINOTRANSFERASE 22 U/L (12-78); ALBUMIN 3.2 G/DL (3.4-5.0); ALBUMIN/GLOBULIN RATIO 0.7 (1.0-2.7); ALKALINE PHOSPHATASE 93 U/L (46-116); ASPARTATE AMINO TRANSFERASE 18 U/L (15-37); BILIRUBIN,TOTAL 0.3 MG/DL (0.2-1.0); CREATINE KINASE 21 U/L (26-308)
--- NOTE | 2018-03-06 11:30 | Diagnostic Imaging Report ---
Indication: Dyspnea Comparison: 02/08/2018 A single view chest radiograph was obtained. Findings: There is mild atelectasis at the right lung base. Heart size is within normal. Lung volumes are low bilaterally. The bones are osteopenic. Lower thoracic vertebral kyphoplasty again noted. IMPRESSION: Mild right basal atelectasis versus scarring. No change
[2018-03-06] MEDS ORDERED: ACIDOPHILUS1 EAC6 PO (11:44)
[2018-03-06 11:51] VITALS: BP 107/60
[2018-03-06 12:45] VITALS: BP 102/59
[2018-03-06] MEDS ORDERED: Lactulose 20gm/30ml UDC GT PRN (14:00)
[2018-03-06] MEDS ORDERED: Acetaminophen 650mg/20.3ml GT PRN ×2 (14:15)
--- NOTE | 2018-03-06 14:15 | History and Physical ---
History of Present Illness General Date patient seen: Mar 06, 2018 Time patient seen: 13:00 Reason for Hospitalization: Dyspnea/Respdistress Present Illness HPI 87 yo F PMH of hypothyroid, dementia, trache, peg, agitation, GIB, schizophrenia , seizure d/o, chronic hypercapnia, TIA, was brought in from snf for hypoxia. Per RN and EMS notespatient desaturate to 98% and was brought to ED. Patient is unable to provide accurate history. Per pulmonary, a home trilogy ventilator was provided for patient given her hypercapnia. I have called snf and awaiting a response at this time in regards to if patient was using NIMV at the nursing facility. Currently patient is stable not requiring oxygen therapy and unable to comment on complaints Code : DNR DNI Allergies: Coded Allergies: NO KNOWN DRUG ALLERGIES (Unverified Allergy, Unknown, 07/29/14) Medication History Scheduled Acidophilus/Bulgaricus (Floranex Tablet), 1 EACH PO BID, (Reported) Aspirin* (Aspir 81*), 81 MG GT DAILY, (Reported) Atorvastatin Calcium* (Lipitor*), 10 MG ORAL BEDTIME, (Reported) Calcitonin,[place],Synthetic (Calcitonin-[place]), 3.7 ML NS DAILY, (Reported) Cephalexin* (Keflex*), 500 MG ORAL EVERY 6 HOURS Cholecalciferol (Vitamin D3)* (Vitamin D*), 5,000 UNIT GT DAILY, (Reported) Diltiazem HCl (Diltiazem 12Hr ER), 30 MG ORAL EVERY 6 HOURS Docusate Sodium* (Docusate Sodium*), 100 MG GT TWICE A DAY, (Reported) Ergocalciferol (Vitamin D2)* (Vitamin D*), 50,000 UNIT ORAL ONCE A WEEK, ( Reported) Ferrous Sulfate* (Ferrous Sulfate*), 325 MG ORAL DAILY, (Reported) Levothyroxine Sodium (Synthroid), 50 MCG ORAL DAILY, (Reported) Memantine Hcl* (Namenda*), 10 MG ORAL TWICE A DAY, (Reported) Multivitamin With Minerals (Multivitamins With Minerals*), 1 TAB ORAL DAILY, ( Reported) Olanzapine* (Zyprexa*), 5 MG ORAL HS, (Reported) Simvastatin (Zocor), 20 MG ORAL BEDTIME, (Reported) Trimethoprim/Sulfamethoxazole 160/800* (Bactrim Ds Tablet*), 1 TAB ORAL Q12H Scheduled PRN Acetaminophen (Acetaminophen), 650 MG GT Q4HR PRN for Prn Headache/Temp > 101, ( Reported) Albuterol Sulfate* (Albuterol Sulfate Hhn*), 3 ML INH Q4H PRN for Shortness of Breath, (Reported) Risperidone* (Risperdal*), 1 MG GT BEDTIME PRN Miscellaneous Medications Lactobacillus Acidophilus (Acidophilus), 1 EACH PO, (Reported) Patient History Limited by: other - alzheimer's Healthcare decision maker Resuscitation status Advanced Directive on File Past Medical/Surgical History Past Medical/Surgical History: (1) UTI (urinary tract infection) (2) GI bleed (3) DVT (deep venous thrombosis) (4) Anemia (5) Generalized weakness (6) Schizophrenia (7) Seizure disorder (8) GI (gastrointestinal bleed) (9) S/P percutaneous endoscopic gastrostomy (PEG) tube placement (10) No significant social history Family History Family History: Patient reports no known family medical history. Review of Systems All Other Systems: negative except mentioned in HPI Physical Exam General Appearance: no apparent distress, alert, other - patietn A x O x 2 Lines, tubes and drains: peripheral HEENT: normocephalic, atraumatic, anicteric, mucous membranes moist, PERRL Neck: non-tender, normal alignment, supple, normal inspection, abnormal alignment Respiratory/Chest: chest wall non-tender, lungs clear, normal breath sounds, no respiratory distress, no accessory muscle use, respiratory distress Breasts: no masses Cardiovascular/Chest: normal peripheral pulses, normal rate, regular rhythm, regularly irregular, no gallop/murmur, no JVD Abdomen: normal bowel sounds, non tender, soft, no organomegaly, no mass, feeding tube - no exudates , other Extremities: normal range of motion, non-tender, other - atrophy Skin Exam: normal pigmentation, warm/dry Neurologic: alert, responsive, other - patient confused, gross sensation appreas intake, no clonus, negative babinski Last 24 Hour Vital Signs Date Time Temp Pulse Resp B/P (MAP) Pulse Ox O2 Delivery O2 Flow Rate FiO2 03/06/18 13:46 Room Air 03/06/18 12:55 98.1 91 18 107/60 97 Room Air 10.0 03/06/18 12:45 97.7 94 20 102/59 (73) 94 03/06/18 11:51 98.1 91 18 107/60 97 Room Air 03/06/18 11:04 98.1 86 18 111/65 96 Room Air 03/06/18 10:14 92 18 Non-Rebreather 10.0 03/06/18 10:02 98.1 96 18 133/55 98 Non-Rebreather 10.0 Laboratory Tests Test 03/06/18 10:35 White Blood Count 8.2 K/UL (4.8-10.8) Red Blood Count 4.86 M/UL (4.20-5.40) Hemoglobin 14.8 G/DL (12.0-16.0) Hematocrit 44.9 % (37.0-47.0) Mean Corpuscular Volume 92 FL (80-99) Mean Corpuscular Hemoglobin 30.5 PG (27.0-31.0) Mean Corpuscular Hemoglobin Concent 33.0 G/DL (32.0-36.0) Red Cell Distribution Width 11.7 % (11.6-14.8) Platelet Count 224 K/UL (150-450) Mean Platelet Volume 7.2 FL (6.5-10.1) Neutrophils (%) (Auto) 52.0 % (45.0-75.0) Lymphocytes (%) (Auto) 32.6 % (20.0-45.0) Monocytes (%) (Auto) 8.9 % (1.0-10.0) Eosinophils (%) (Auto) 5.7 % (0.0-3.0) H Basophils (%) (Auto) 0.8 % (0.0-2.0) Prothrombin Time 11.3 SEC (9.30-11.50) Prothromb Time International Ratio 1.1 (0.9-1.1) Activated Partial Thromboplast Time 25 SEC (23-33) D-Dimer Pending Sodium Level 142 MMOL/L (136-145) Potassium Level 4.2 MMOL/L (3.5-5.1) Chloride Level 106 MMOL/L (98-107) Carbon Dioxide Level 27 MMOL/L (21-32) Anion Gap 9 mmol/L (5-15) Blood Urea Nitrogen 23 mg/dL (7-18) H Creatinine 0.5 MG/DL (0.55-1.30) L Estimat Glomerular Filtration Rate mL/min (>60) Glucose Level 121 MG/DL (74-106) H Lactic Acid Level 1.20 mmol/L (0.4-2.0) Calcium Level 9.7 MG/DL (8.5-10.1) Total Bilirubin 0.3 MG/DL (0.2-1.0) Aspartate Amino Transf (AST/SGOT) 18 U/L (15-37) Alanine Aminotransferase (ALT/SGPT) 22 U/L (12-78) Alkaline Phosphatase 93 U/L (46-116) Total Creatine Kinase 21 U/L (26-308) L Troponin I 0.000 ng/mL (0.000-0.056) Pro-B-Type Natriuretic Peptide 162 pg/mL (0-125) H Total Protein 7.8 G/DL (6.4-8.2) Albumin 3.2 G/DL (3.4-5.0) L Globulin 4.6 g/dL Albumin/Globulin Ratio 0.7 (1.0-2.7) L Height (Feet): 5 Height (Inches): 4.00 Weight (Pounds): 140 Medications Current Medications Medications (Trade) Dose Ordered Sig/Jacque Route PRN Reason Start Time Stop Time Status Last Admin Dose Admin Acetaminophen (Tylenol) 650 mg Q4H PRN ORAL Mild Pain (Pain Scale 1-3) 03/06/18 14:00 04/05/18 13:59 Acetaminophen (Tylenol) 650 mg Q4H PRN ORAL fever (temp>100.5F) 03/06/18 14:00 04/05/18 13:59 Dextrose (Dextrose 50%) 25 ml Q30M PRN IV Hypoglycemia 03/06/18 14:00 04/05/18 13:59 Dextrose (Dextrose 50%) 50 ml Q30M PRN IV Hypoglycemia 03/06/18 14:00 04/05/18 13:59 Heparin Sodium (Porcine) (Heparin 5000 units/ml) 5,000 units EVERY 12 HOURS SUBQ 03/06/18 21:00 04/05/18 20:59 Assessment/Plan Problem List: (1) Hypoxia ICD Codes: R09.02 - Hypoxemia SNOMED: 828952519 (2) Hypothyroid ICD Codes: E03.9 - Hypothyroidism, unspecified SNOMED: 67307869 Qualifiers: Qualified Codes: E03.9 - Hypothyroidism, unspecified (3) Dementia ICD Codes: F03.90 - Unspecified dementia without behavioral disturbance SNOMED: [id number] Qualifiers: Qualified Codes: G30.9 - Alzheimer's disease, unspecified; F02.80 - Dementia in other diseases classified elsewhere without behavioral disturbance Status: doing well Assessment/Plan Hypoxia - Pulm consult - awaiting response from snf if patient was using NIMV at snf - patient on room air - bronchodilators PRN Hypothyroid - levothyroxin continued Alzheimer's - home medications continued DVT - heparin Dispo - SNF Code status - DNR DNI patient has daughter involved in care I have spent 70 minutes regarding patient care and 35 minutes involved in care coordination with snf and consultants. Julita Choudhury DO Mar 06, 2018 14:15
[2018-03-06] MEDS ORDERED: dilTIAZem HCl 30mg tab GT SCH (14:30)
[2018-03-06] MEDS: Albuterol ud Inhalation HHN SCH ×3 (15:45→23:28)
--- NOTE | 2018-03-06 15:58 | Infectious Diseases Prog Note ---
Assessment/Plan Assessment/Plan Full consult dictated: A) 1) possible CAP/uri/bronchitis, hypoxia 2) hx uti 3) allergies - nkda 4) pmh noted P) 1) rocephin 2) check f/u chest x-ray 3) check ua 4) pulmonary treatment 5) thank you Subjective Allergies: Coded Allergies: NO KNOWN DRUG ALLERGIES (Unverified Allergy, Unknown, 07/29/14) Objective Vital Signs Last 24 Hour Vital Signs Date Time Temp Pulse Resp B/P (MAP) Pulse Ox O2 Delivery O2 Flow Rate FiO2 03/06/18 14:56 91 107/60 03/06/18 13:46 Room Air 03/06/18 12:55 98.1 91 18 107/60 97 Room Air 10.0 03/06/18 12:45 97.7 94 20 102/59 (73) 94 03/06/18 11:51 98.1 91 18 107/60 97 Room Air 03/06/18 11:04 98.1 86 18 111/65 96 Room Air 03/06/18 10:14 92 18 Non-Rebreather 10.0 03/06/18 10:02 98.1 96 18 133/55 98 Non-Rebreather 10.0 Height (Feet): 5 Height (Inches): 4.00 Weight (Pounds): 140 Laboratory Tests Test 03/06/18 10:35 White Blood Count 8.2 K/UL (4.8-10.8) Red Blood Count 4.86 M/UL (4.20-5.40) Hemoglobin 14.8 G/DL (12.0-16.0) Hematocrit 44.9 % (37.0-47.0) Mean Corpuscular Volume 92 FL (80-99) Mean Corpuscular Hemoglobin 30.5 PG (27.0-31.0) Mean Corpuscular Hemoglobin Concent 33.0 G/DL (32.0-36.0) Red Cell Distribution Width 11.7 % (11.6-14.8) Platelet Count 224 K/UL (150-450) Mean Platelet Volume 7.2 FL (6.5-10.1) Neutrophils (%) (Auto) 52.0 % (45.0-75.0) Lymphocytes (%) (Auto) 32.6 % (20.0-45.0) Monocytes (%) (Auto) 8.9 % (1.0-10.0) Eosinophils (%) (Auto) 5.7 % (0.0-3.0) H Basophils (%) (Auto) 0.8 % (0.0-2.0) Prothrombin Time 11.3 SEC (9.30-11.50) Prothromb Time International Ratio 1.1 (0.9-1.1) Activated Partial Thromboplast Time 25 SEC (23-33) D-Dimer 0.44 mg/L FEU (0.00-0.49) Sodium Level 142 MMOL/L (136-145) Potassium Level 4.2 MMOL/L (3.5-5.1) Chloride Level 106 MMOL/L (98-107) Carbon Dioxide Level 27 MMOL/L (21-32) Anion Gap 9 mmol/L (5-15) Blood Urea Nitrogen 23 mg/dL (7-18) H Creatinine 0.5 MG/DL (0.55-1.30) L Estimat Glomerular Filtration Rate mL/min (>60) Glucose Level 121 MG/DL (74-106) H Lactic Acid Level 1.20 mmol/L (0.4-2.0) Calcium Level 9.7 MG/DL (8.5-10.1) Total Bilirubin 0.3 MG/DL (0.2-1.0) Aspartate Amino Transf (AST/SGOT) 18 U/L (15-37) Alanine Aminotransferase (ALT/SGPT) 22 U/L (12-78) Alkaline Phosphatase 93 U/L (46-116) Total Creatine Kinase 21 U/L (26-308) L Troponin I 0.000 ng/mL (0.000-0.056) Pro-B-Type Natriuretic Peptide 162 pg/mL (0-125) H Total Protein 7.8 G/DL (6.4-8.2) Albumin 3.2 G/DL (3.4-5.0) L Globulin 4.6 g/dL Albumin/Globulin Ratio 0.7 (1.0-2.7) L Current Medications Medications (Trade) Dose Ordered Sig/Jacque Route PRN Reason Start Time Stop Time Status Last Admin Dose Admin Acetaminophen (Tylenol) 650 mg Q4H PRN GT Mild Pain (Pain Scale 1-3) 03/06/18 14:15 04/05/18 13:59 03/06/18 14:56 Acetaminophen (Tylenol) 650 mg Q4H PRN GT fever (temp>100.5F) 03/06/18 14:15 04/05/18 13:59 Albuterol Sulfate (Proventil) 2.5 mg Q4HRT HHN 03/06/18 15:00 03/11/18 14:59 03/06/18 15:45 Aspirin (ASA) 81 mg DAILY GT 03/07/18 09:00 04/06/18 08:59 Atorvastatin Calcium (Lipitor) 20 mg BEDTIME GT 03/06/18 21:00 04/05/18 20:59 Calcitonin [place] (Miacalcin) 1 sprays DAILY NASAL 03/07/18 09:00 04/06/18 08:59 Dextrose (Dextrose 50%) 25 ml Q30M PRN IV Hypoglycemia 03/06/18 14:00 04/05/18 13:59 Dextrose (Dextrose 50%) 50 ml Q30M PRN IV Hypoglycemia 03/06/18 14:00 04/05/18 13:59 Diltiazem HCl (Cardizem) 30 mg EVERY 6 HOURS GT 03/06/18 18:00 04/05/18 17:59 Ferrous Sulfate (Feosol) 300 mg THREE TIMES A DAY GT 03/06/18 18:00 04/05/18 17:59 Heparin Sodium (Porcine) (Heparin 5000 units/ml) 5,000 units EVERY 12 HOURS SUBQ 03/06/18 21:00 04/05/18 20:59 Lactulose (Cephulac) 30 gm DAILYPRN PRN GT constipation 03/06/18 14:00 04/05/18 13:59 Lansoprazole (Prevacid) 30 mg DAILY GT 03/07/18 09:00 04/06/18 08:59 Levothyroxine Sodium (Synthroid) 50 mcg DAILY@0630 GT 03/07/18 06:30 04/06/18 06:29 Memantine (Namenda) 10 mg DAILY GT 03/07/18 09:00 04/06/18 08:59 Olanzapine (ZyPREXA) 10 mg DAILY GT 03/07/18 09:00 04/06/18 08:59 Vitamin D (Vitamin D) 1,000 intlu DAILY GT 03/07/18 09:00 04/06/18 08:59 Agusto Orr MD Mar 06, 2018 15:58
[2018-03-06 16:00] VITALS: BP 97/61
--- NOTE | 2018-03-06 16:08 | Consultation ---
History of Present Illness General Chief Complaint: Dyspnea/Respdistress Present Illness HPI 87 yo F PMH of hypothyroid, dementia, trache, peg, agitation, GIB, schizophrenia , seizure d/o, chronic hypercapnia, TIA, was brought in from [facility] for hypoxia. the pt has anxiety and agitation somewhat confused. the pt has memory impairment. Allergies: Coded Allergies: NO KNOWN DRUG ALLERGIES (Unverified Allergy, Unknown, 07/29/14) Medication History Scheduled Acidophilus/Bulgaricus (Floranex Tablet), 1 EACH PO BID, (Reported) Aspirin* (Aspir 81*), 81 MG GT DAILY, (Reported) Atorvastatin Calcium* (Lipitor*), 10 MG ORAL BEDTIME, (Reported) Calcitonin,Basile,Synthetic (Calcitonin-Basile), 3.7 ML NS DAILY, (Reported) Cephalexin* (Keflex*), 500 MG ORAL EVERY 6 HOURS Cholecalciferol (Vitamin D3)* (Vitamin D*), 5,000 UNIT GT DAILY, (Reported) Diltiazem HCl (Diltiazem 12Hr ER), 30 MG ORAL EVERY 6 HOURS Docusate Sodium* (Docusate Sodium*), 100 MG GT TWICE A DAY, (Reported) Ergocalciferol (Vitamin D2)* (Vitamin D*), 50,000 UNIT ORAL ONCE A WEEK, ( Reported) Ferrous Sulfate* (Ferrous Sulfate*), 325 MG ORAL DAILY, (Reported) Levothyroxine Sodium (Synthroid), 50 MCG ORAL DAILY, (Reported) Memantine Hcl* (Namenda*), 10 MG ORAL TWICE A DAY, (Reported) Multivitamin With Minerals (Multivitamins With Minerals*), 1 TAB ORAL DAILY, ( Reported) Olanzapine* (Zyprexa*), 5 MG ORAL HS, (Reported) Simvastatin (Zocor), 20 MG ORAL BEDTIME, (Reported) Trimethoprim/Sulfamethoxazole 160/800* (Bactrim Ds Tablet*), 1 TAB ORAL Q12H Scheduled PRN Acetaminophen (Acetaminophen), 650 MG GT Q4HR PRN for Prn Headache/Temp > 101, ( Reported) Albuterol Sulfate* (Albuterol Sulfate Hhn*), 3 ML INH Q4H PRN for Shortness of Breath, (Reported) Risperidone* (Risperdal*), 1 MG GT BEDTIME PRN Miscellaneous Medications Lactobacillus Acidophilus (Acidophilus), 1 EACH PO, (Reported) Patient History Limited by: medical condition History Provided By: Patient, Medical Record, PMD Healthcare decision maker Resuscitation status Advanced Directive on File Past Medical/Surgical History Past Medical/Surgical History: (1) Dehydration (2) Gram-positive bacteremia (3) Bright red blood per rectum (4) UTI (urinary tract infection) (5) Acute respiratory failure (6) Hyperkalemia (7) Hypomagnesemia (8) Hypercalcemia (9) Herpes zoster (10) Hallucinations (11) Retention of urine (12) Encephalopathy (13) Hypophosphatemia (14) UTI (urinary tract infection) (15) Chronic bronchitis (16) Altered level of consciousness (17) Altered level of consciousness (18) Encounter for PEG (percutaneous endoscopic gastrostomy) (19) History of pulmonary aspiration (20) JUJU (acute kidney injury) (21) Toxic metabolic encephalopathy (22) Acute respiratory failure with hypoxia and hypercapnia (23) lives at home with daughter (24) lives with daughter at home (25) Multiple pressure ulcers (26) DVT/PE (27) Gastrointestinal bleed (28) Anemia (29) Generalized weakness (30) Schizophrenia (31) Seizure disorder (32) UTI (urinary tract infection) (33) DVT (deep venous thrombosis) (34) GI (gastrointestinal bleed) (35) GI bleed (36) Hypothyroid (37) Dementia (38) Hypoxia (39) Pneumonia (40) UTI (lower urinary tract infection) (41) UTI (lower urinary tract infection) (42) Sepsis (43) Acute encephalopathy (44) SVT (supraventricular tachycardia) (45) Dementia (46) Hyponatremia (47) Hypokalemia (48) Diabetes mellitus (49) Infection due to ESBL-producing Escherichia coli (50) Transaminitis Review of Systems Psychiatric: Reports: prior hx, anxiety, emotional problems Physical Exam General Appearance: no apparent distress, alert, confused Last 24 Hour Vital Signs Date Time Temp Pulse Resp B/P (MAP) Pulse Ox O2 Delivery O2 Flow Rate FiO2 03/06/18 14:56 91 107/60 03/06/18 13:46 Room Air 03/06/18 12:55 98.1 91 18 107/60 97 Room Air 10.0 03/06/18 12:45 97.7 94 20 102/59 (73) 94 03/06/18 11:51 98.1 91 18 107/60 97 Room Air 03/06/18 11:04 98.1 86 18 111/65 96 Room Air 03/06/18 10:14 92 18 Non-Rebreather 10.0 03/06/18 10:02 98.1 96 18 133/55 98 Non-Rebreather 10.0 Laboratory Tests Test 03/06/18 10:35 03/06/18 15:55 White Blood Count 8.2 K/UL (4.8-10.8) Red Blood Count 4.86 M/UL (4.20-5.40) Hemoglobin 14.8 G/DL (12.0-16.0) Hematocrit 44.9 % (37.0-47.0) Mean Corpuscular Volume 92 FL (80-99) Mean Corpuscular Hemoglobin 30.5 PG (27.0-31.0) Mean Corpuscular Hemoglobin Concent 33.0 G/DL (32.0-36.0) Red Cell Distribution Width 11.7 % (11.6-14.8) Platelet Count 224 K/UL (150-450) Mean Platelet Volume 7.2 FL (6.5-10.1) Neutrophils (%) (Auto) 52.0 % (45.0-75.0) Lymphocytes (%) (Auto) 32.6 % (20.0-45.0) Monocytes (%) (Auto) 8.9 % (1.0-10.0) Eosinophils (%) (Auto) 5.7 % (0.0-3.0) H Basophils (%) (Auto) 0.8 % (0.0-2.0) Prothrombin Time 11.3 SEC (9.30-11.50) Prothromb Time International Ratio 1.1 (0.9-1.1) Activated Partial Thromboplast Time 25 SEC (23-33) D-Dimer 0.44 mg/L FEU (0.00-0.49) Sodium Level 142 MMOL/L (136-145) Potassium Level 4.2 MMOL/L (3.5-5.1) Chloride Level 106 MMOL/L (98-107) Carbon Dioxide Level 27 MMOL/L (21-32) Anion Gap 9 mmol/L (5-15) Blood Urea Nitrogen 23 mg/dL (7-18) H Creatinine 0.5 MG/DL (0.55-1.30) L Estimat Glomerular Filtration Rate mL/min (>60) Glucose Level 121 MG/DL (74-106) H Lactic Acid Level 1.20 mmol/L (0.4-2.0) Calcium Level 9.7 MG/DL (8.5-10.1) Total Bilirubin 0.3 MG/DL (0.2-1.0) Aspartate Amino Transf (AST/SGOT) 18 U/L (15-37) Alanine Aminotransferase (ALT/SGPT) 22 U/L (12-78) Alkaline Phosphatase 93 U/L (46-116) Total Creatine Kinase 21 U/L (26-308) L Troponin I 0.000 ng/mL (0.000-0.056) Pro-B-Type Natriuretic Peptide 162 pg/mL (0-125) H Total Protein 7.8 G/DL (6.4-8.2) Albumin 3.2 G/DL (3.4-5.0) L Globulin 4.6 g/dL Albumin/Globulin Ratio 0.7 (1.0-2.7) L Arterial Blood pH 7.408 (7.350-7.450) Arterial Blood Partial Pressure CO2 42.7 mmHg (35.0-45.0) Arterial Blood Partial Pressure O2 72.3 mmHg (75.0-100.0) L Arterial Blood HCO3 26.3 mmol/L (22.0-26.0) H Arterial Blood Oxygen Saturation 94.1 % (95-100) L Arterial Blood Base Excess 1.4 (-2-2) Kelvin Test Positive Height (Feet): 5 Height (Inches): 4.00 Weight (Pounds): 140 Medications Current Medications Medications (Trade) Dose Ordered Sig/Jacque Route PRN Reason Start Time Stop Time Status Last Admin Dose Admin Acetaminophen (Tylenol) 650 mg Q4H PRN GT Mild Pain (Pain Scale 1-3) 03/06/18 14:15 04/05/18 13:59 03/06/18 14:56 Acetaminophen (Tylenol) 650 mg Q4H PRN GT fever (temp>100.5F) 03/06/18 14:15 04/05/18 13:59 Albuterol Sulfate (Proventil) 2.5 mg Q4HRT HHN 11/7/18 15:00 03/11/18 14:59 03/06/18 15:45 Aspirin (ASA) 81 mg DAILY GT 03/07/18 09:00 04/06/18 08:59 Atorvastatin Calcium (Lipitor) 20 mg BEDTIME GT 03/06/18 21:00 04/05/18 20:59 Calcitonin [place] (Miacalcin) 1 sprays DAILY NASAL 03/07/18 09:00 04/06/18 08:59 Dextrose (Dextrose 50%) 25 ml Q30M PRN IV Hypoglycemia 03/06/18 14:00 04/05/18 13:59 Dextrose (Dextrose 50%) 50 ml Q30M PRN IV Hypoglycemia 03/06/18 14:00 04/05/18 13:59 Diltiazem HCl (Cardizem) 30 mg EVERY 6 HOURS GT 03/06/18 18:00 04/05/18 17:59 Ferrous Sulfate (Feosol) 300 mg THREE TIMES A DAY GT 03/06/18 18:00 04/05/18 17:59 Heparin Sodium (Porcine) (Heparin 5000 units/ml) 5,000 units EVERY 12 HOURS SUBQ 03/06/18 21:00 04/05/18 20:59 Lactulose (Cephulac) 30 gm DAILYPRN PRN GT constipation 03/06/18 14:00 04/05/18 13:59 Lansoprazole (Prevacid) 30 mg DAILY GT 03/07/18 09:00 04/06/18 08:59 Levothyroxine Sodium (Synthroid) 50 mcg DAILY@0630 GT 03/07/18 06:30 04/06/18 06:29 Memantine (Namenda) 10 mg DAILY GT 03/07/18 09:00 04/06/18 08:59 Olanzapine (ZyPREXA) 10 mg DAILY GT 03/07/18 09:00 04/06/18 08:59 Vitamin D (Vitamin D) 1,000 intlu DAILY GT 03/07/18 09:00 04/06/18 08:59 Assessment/Plan Status: stable Assessment/Plan schizophrenia dementia -cont zyprexa -cont Burak Prince MD Mar 06, 2018 16:08
[2018-03-06] MEDS: Ferrous Sulfate 300 MG/5 ML UDC GT SCH (17:59)
[2018-03-06] MEDS: dilTIAZem HCl 30mg tab GT SCH (18:00)
[2018-03-06] MEDS: cefTRIAXone 1 GM in D5W 50 ML IVPB SCH (18:01)
[2018-03-06 20:00] VITALS: BP 131/48
--- NOTE | 2018-03-06 20:15 | Consultation ---
DATE OF CONSULTATION: 03/06/2018 INFECTIOUS DISEASES CONSULTATION CONSULTING PHYSICIAN: Agusto Orr M.D. ATTENDING PHYSICIAN: María Bustamante M.D. REFERRING PHYSICIAN: Julita Choudhury M.D. REASON FOR CONSULTATION: Possible community-acquired pneumonia, respiratory infection, hypoxia. CHIEF COMPLAINT: The patient's chief complaint coming into the hospital is hypoxia, possible community-acquired pneumonia. HISTORY OF PRESENT ILLNESS: This is a 87-year-old female, who comes into [facility] with hypoxia and shortness of breath. The patient was evaluated in the emergency room. There was a concern that the patient could have community-acquired pneumonia. The patient was given Zosyn. The patient's chest x-ray initially shows atelectasis, unclear if this was infiltrate or scarring. Infectious Diseases consultation requested for antibiotic management. The patient's hypoxia seems improved. Her saturations are somewhat stable at this time on room air. The patient will be placed on Rocephin 1 g IV q. 24 hours, pending followup chest x-ray with hydration. Rocephin for possible community-acquired pneumonia. Atypical pneumonia will be unlikely in this scenario. MAR was noted. Orders were noted. Notes were reviewed. Case was with Dr. Julita Choudhury. REVIEW OF SYSTEMS: CONSTITUTIONAL: The patient has generalized fatigue and weakness. She is alert, not a very good historian. She is mostly nonverbal to me. No significant shortness of breath noted. No fevers. HEAD AND NECK: No head pain or neck pain. CARDIAC: No chest pain. GASTROINTESTINAL: No nausea, vomiting, or diarrhea. GENITOURINARY: No Camacho. PULMONARY: Mild cough, congestion, and shortness of breath but nothing significant. SKIN: No rash or itching. EXTREMITIES: No extremity pain. NEUROLOGIC: No seizures. She has generalized fatigue and weakness noted. Review of Systems is limited in this patient. PAST MEDICAL HISTORY: The patient's past medical history includes the history of following. The patient has a past medical history of urinary tract infection in the past, history of hypothyroidism, history of dementia, history of trach and PEG in the past, history of vegetations, history schizophrenia, GI bleed, seizure disorder, history of hypercapnia, history of TIA, history of anemia, UTI, and DVT. She has history of hyperlipidemia. ALLERGIES: No known drug allergies. No antibiotic allergies noted. SOCIAL HISTORY: Negative for smoking, alcohol, or drug abuse. FAMILY HISTORY: No mention of diabetes, tuberculosis, or cancer. MEDICATIONS: Upon reviewing the MAR, she is on following medications. She is on Namenda, Zyprexa, Prevacid, aspirin, vitamin D, Synthroid, heparin, Lipitor, Feosol, Cardizem, Proventil, acetaminophen, Tylenol, lactulose. Outside medication noted and reconciliated. PHYSICAL EXAMINATION: VITAL SIGNS: Temperature 98.1, pulse rate is 91, respiratory rate 18, blood pressure 107/60, saturation 97%. on room air. GENERAL: Alert and responsive. No acute distress. HEAD AND NECK: Oral exam, no thrush. Eye exam, no icterus. Normocephalic. NECK: Supple. No JVD. HEART: Regular. No gallop or murmur. No friction rub. ABDOMEN: Soft. Positive bowel sounds. Nontender. No organomegaly. LUNGS: Few bilateral rhonchi but mostly clear bilaterally, possible rales at the bases with mostly clear to my examination. SKIN: No new rash. MUSCULOSKELETAL: No effusion. Legs are without cellulitis. PERIPHERAL VASCULAR: No cyanosis or gangrene. GENITOURINARY: No Camacho LINES SITES: Without phlebitis. NEUROLOGIC: Intact and nonfocal. Alert and responsive, not a very good historian. LABORATORY DATA: Laboratory data as follows creatinine is 0.5. LFTs noted. White count 8.2 and hemoglobin 14.8. Chest x-ray initially showed right-sided atelectasis versus scarring, it is unclear if the patient has infiltrate at this time. Report was noted. Followup chest x-ray has been ordered. UA was ordered but is pending. ASSESSMENT/PLAN: 1. The patient comes in with history of hypoxia. There is concern for community-acquired pneumonia. The patient was given Zosyn and Levaquin in the emergency room. Chest x-ray as of this point atelectasis versus scarring, no obvious infiltrate. We will continue Rocephin 1 g IV q.24 hours for community-acquired pneumonia and followup chest x-ray. The patient also risk for aspiration pneumonia. Continue Rocephin. Check followup chest x-ray. The patient is unlikely to have atypical pneumonia such as Legionella mycoplasma. Case discussed with Dr. Choudhury. If the chest x-ray is unremarkable, consider discontinuing antibiotics since respiratory status somewhat stable currently. Also pulmonary evaluations also been ordered. 2. The patient has history of possible hyperlipidemia. 3. The patient has history of urinary tract infection. Check urinalysis. 4. Hypothyroidism. 5. Dementia. 6. History of trach, currently not on trach. 7. History of PEG and G-tube. 8. History of agitation. 9. History of GI bleed. 10. History of schizophrenia. 11. History of seizure. 12. History of hypercapnia. 13. History of TIA. 14. History of DVT. 15. History of anemia. 16. The patient has no known drug allergies. 17. Social history negative for smoking, alcohol, or drug abuse. 18. Family history is noncontributory. 19. MAR was noted. 20. Case discussed with RN. 21. Continue treatment with primary consultants. Agusto Orr M.D. DR: Perry JOB#: [id number] CC:
[2018-03-06] MEDS ORDERED: Atorvastatin 20mg tab GT SCH (21:00)
--- NOTE | 2018-03-06 21:00 | Consultation ---
DATE OF CONSULTATION: ADDENDUM Treatment for possible community-acquired pneumonia and aspiration pneumonia. The Rocephin also will cover upper respiratory infection and bronchitis pathogens. Again most likely pathogenic, this patient does have pneumonia as either a Streptococcus pneumoniae or possible aspiration pneumonia. Continue Rocephin pending workup for now. Agusto Orr M.D. DR: REG JOB#: [id number] CC:
[2018-03-06] MEDS: Heparin 5000 units/ml inj SUBQ SCH (21:17)
[2018-03-07] VITALS: BP 110/65
[2018-03-07] MEDS: dilTIAZem HCl 30mg tab GT SCH ×4 (00:30→18:00)
[2018-03-07 04:00] VITALS: BP 131/81
[2018-03-07] MEDS: Albuterol ud Inhalation HHN SCH ×4 (04:21→15:11)
[2018-03-07 07:20] LABS: HEMATOCRIT 40.2 % (37.0-47.0); HEMOGLOBIN 13.8 G/DL (12.0-16.0); MEAN CORPUSCULAR VOLUME 93 FL (80-99); PLATELET COUNT 214 K/UL (150-450); RED BLOOD COUNT 4.32 M/UL (4.20-5.40); RED CELL DISTRIBUTION WIDTH 11.7 % (11.6-14.8)
[2018-03-07 07:38] LABS: ANION GAP 11 mmol/L (5-15); BLOOD UREA NITROGEN 14 mg/dL (7-18); CALCIUM 9.6 MG/DL (8.5-10.1); CARBON DIOXIDE 26 MMOL/L (21-32); CHLORIDE 108 MMOL/L (98-107); CREATININE 0.5 MG/DL (0.55-1.30); PHOSPHORUS 3.2 MG/DL (2.5-4.9); SODIUM 144 MMOL/L (136-145)
[2018-03-07 08:00] VITALS: BP 122/62
[2018-03-07] MEDS: Ferrous Sulfate 300 MG/5 ML UDC GT SCH ×3 (08:30→18:00)
[2018-03-07] MEDS: Heparin 5000 units/ml inj SUBQ SCH (08:31)
[2018-03-07] MEDS ORDERED: Vitamin D 1000 IU Tab GT SCH (09:00)
[2018-03-07] MEDS ORDERED: OLANZapine 10mg tab GT SCH ×2 (09:00→21:00)
[2018-03-07] MEDS ORDERED: Aspirin Baby 81mg GT SCH (09:00)
[2018-03-07] MEDS ORDERED: Memantine 10mg tab GT SCH (09:00)
--- NOTE | 2018-03-07 10:00 | Diagnostic Imaging Report ---
Indication: Dyspnea Comparison: 03/06/2018 A single view chest radiograph was obtained. Findings: There is suggestion of mild right basal atelectasis. Heart size is stable. IMPRESSION: No change from the prior day
--- NOTE | 2018-03-07 10:28 | General Progress Note ---
Assessment/Plan Problem List: (1) Hypoxia ICD Codes: R09.02 - Hypoxemia SNOMED: 289878050 (2) Hypothyroid ICD Codes: E03.9 - Hypothyroidism, unspecified SNOMED: 72168737 Qualifiers: Qualified Codes: E03.9 - Hypothyroidism, unspecified (3) Dementia ICD Codes: F03.90 - Unspecified dementia without behavioral disturbance SNOMED: 22882444 Qualifiers: Qualified Codes: G30.9 - Alzheimer's disease, unspecified; F02.80 - Dementia in other diseases classified elsewhere without behavioral disturbance Assessment/Plan Hypoxia - appreciate Pulm consult Dr. Wolf - patient was not using home ventilator per jail charge nurse - patient on room air with no respiratory distress - repeat CXR wnl, I have personally reviewed and there are no infiltrates - bronchodilators PRN Hypothyroid - levothyroxin continued Alzheimer's - home medications continued DVT - heparin Dispo - SNF Code status - DNR DNI patient has daughter involved in care D/c planning I have spent 70 minutes regarding patient care and 35 minutes involved in care coordination with jail and consultants. Subjective Date patient seen: Mar 07, 2018 Time patient seen: 09:00 ROS Limited/Unobtainable: Yes - patien has alzheimer's Allergies: Coded Allergies: NO KNOWN DRUG ALLERGIES (Unverified Allergy, Unknown, 07/29/14) Subjective no acute events overnight Objective Last 24 Hour Vital Signs Date Time Temp Pulse Resp B/P (MAP) Pulse Ox O2 Delivery O2 Flow Rate FiO2 03/07/18 08:06 96 18 97 Room Air 21 03/07/18 08:06 87 18 96 Room Air 21 03/07/18 08:00 97.6 90 19 122/62 (82) 94 03/07/18 05:22 88 131/81 03/07/18 04:26 86 18 99 Room Air 21 03/07/18 04:15 89 18 96 Room Air 21 03/07/18 04:00 97.8 88 20 131/81 (98) 96 03/07/18 00:30 86 110/65 03/07/18 00:00 97.3 86 20 110/65 (80) 96 03/06/18 23:35 78 20 99 Room Air 03/06/18 23:28 94 18 95 Room Air 03/06/18 21:00 Room Air 03/06/18 20:00 97.5 75 20 131/48 (75) 99 03/06/18 19:41 83 20 99 Room Air 03/06/18 19:34 85 18 95 Room Air 03/06/18 18:00 84 97/61 03/06/18 16:00 97.9 84 20 97/61 (73) 95 03/06/18 14:56 91 107/60 03/06/18 13:46 Room Air 03/06/18 12:55 98.1 91 18 107/60 97 Room Air 10.0 03/06/18 12:45 97.7 94 20 102/59 (73) 94 03/06/18 11:51 98.1 91 18 107/60 97 Room Air 03/06/18 11:04 98.1 86 18 111/65 96 Room Air Intake and Output 03/06/18 03/07/18 19:00 07:00 Intake Total 160 ml Output Total 600 ml Balance 160 ml -600 ml Intake Free Water 150 ml Tube Feeding 10 ml Output Urine Total 600 ml # Voids 4 2 # Bowel Movements 2 Laboratory Tests 03/06/18 10:35: White Blood Count 8.2, Red Blood Count 4.86, Hemoglobin 14.8, Hematocrit 44.9, Mean Corpuscular Volume 92, Mean Corpuscular Hemoglobin 30.5, Mean Corpuscular Hemoglobin Concent 33.0, Red Cell Distribution Width 11.7, Platelet Count 224, Mean Platelet Volume 7.2, Neutrophils (%) (Auto) 52.0, Lymphocytes (%) (Auto) 32.6, Monocytes (%) (Auto) 8.9, Eosinophils (%) (Auto) 5.7H, Basophils (%) (Auto ) 0.8, Prothrombin Time 11.3, Prothromb Time International Ratio 1.1, Activated Partial Thromboplast Time 25, D-Dimer 0.44, Sodium Level 142, Potassium Level 4.2, Chloride Level 106, Carbon Dioxide Level 27, Anion Gap 9, Blood Urea Nitrogen 23H, Creatinine 0.5L, Estimat Glomerular Filtration Rate , Glucose Level 121H, Lactic Acid Level 1.20, Calcium Level 9.7, Total Bilirubin 0.3, Aspartate Amino Transf (AST/SGOT) 18, Alanine Aminotransferase (ALT/SGPT) 22, Alkaline Phosphatase 93, Total Creatine Kinase 21L, Troponin I 0.000, Pro-B- Type Natriuretic Peptide 162H, Total Protein 7.8, Albumin 3.2L, Globulin 4.6, Albumin/Globulin Ratio 0.7L 03/06/18 15:55: Arterial Blood pH 7.408, Arterial Blood Partial Pressure CO2 42.7, Arterial Blood Partial Pressure O2 72.3L, Arterial Blood HCO3 26.3H, Arterial Blood Oxygen Saturation 94.1L, Arterial Blood Base Excess 1.4, Kelvin Test Positive 03/07/18 06:50: White Blood Count 7.0, Red Blood Count 4.32, Hemoglobin 13.8, Hematocrit 40.2, Mean Corpuscular Volume 93, Mean Corpuscular Hemoglobin 32.0H, Mean Corpuscular Hemoglobin Concent 34.4, Red Cell Distribution Width 11.7, Platelet Count 214, Mean Platelet Volume 6.8, Neutrophils (%) (Auto) , Lymphocytes (%) (Auto) , Monocytes (%) (Auto) , Eosinophils (%) (Auto) , Basophils (%) (Auto) , Sodium Level 144, Potassium Level 4.0, Chloride Level 108H, Carbon Dioxide Level 26, Anion Gap 11, Blood Urea Nitrogen 14, Creatinine 0.5L, Estimat Glomerular Filtration Rate , Glucose Level 113H, Calcium Level 9.6, Differential Total Cells Counted 100, Neutrophils % (Manual) 44L, Lymphocytes % (Manual) 41, Monocytes % (Manual) 11H, Eosinophils % (Manual) 3, Basophils % (Manual) 0, Band Neutrophils 1, Platelet Estimate Adequate, Platelet Morphology Normal, Red Blood Cell Morphology Normal, Phosphorus Level 3.2, Magnesium Level 2.0 Height (Feet): 5 Height (Inches): 4.00 Weight (Pounds): 141 General Appearance: WD/WN, no apparent distress, alert EENT: PERRL/EOMI, normal ENT inspection Neck: non-tender, normal alignment, supple, normal inspection Cardiovascular: normal peripheral pulses, normal rate, regular rhythm, no gallop/murmur, no JVD Respiratory/Chest: chest wall non-tender, lungs clear, normal breath sounds, no respiratory distress, no accessory muscle use Abdomen: normal bowel sounds, non tender, soft, no organomegaly Extremities: normal range of motion, non-tender Edema: no edema noted Arm (L), no edema noted Arm (R), no edema noted Leg (L), no edema noted Leg (R), no edema noted Pedal (L), no edema noted Pedal (R), no edema noted Generalized Edema: trace edema Neurologic: responsive, other - patient responsive, does not follow commands, Julita Choudhury DO Mar 07, 2018 10:28
--- NOTE | 2018-03-07 10:29 | Discharge Summary ---
Discharge Summary Hospital Course Date of Admission Mar 06, 2018 at 10:55 Date of Discharge 03/07/18 Admitting Diagnosis PNEUMONIA HPI Erica Gee is a 87 year old female who was admitted on Mar 06, 2018 at 10:55 for Pneumonia Consultations Pulmonology: Dr. Wolf Infectious Disease: Dr. Hutchins Pscyhe: Dr. Viera Hospital Course 87 yo F PMH of hypothyroid, dementia, trache, peg, agitation, GIB, schizophrenia , seizure d/o, chronic hypercapnia, TIA, was brought in from [facility] for hypoxia. Per RN and EMS notes patient desaturate to 98% and was brought to ED. Patient is unable to provide accurate history. Per pulmonary, a home trilogy ventilator was provided for patient given her hypercapnia. However, patient was not using the NIMV at the [facility]. Patient was started on precautionary ABX , however she does not have elevated white count or fever throughout her stay. Repeat CXR does not show infiltrates. Patient has been stable in no acute distress, breathing on room air and appropriate for discharge to SNF without antibiotics. Comparison: 02/08/2018 A single view chest radiograph was obtained. Findings: There is mild atelectasis at the right lung base. Heart size is within normal. Lung volumes are low bilaterally. The bones are osteopenic. Lower thoracic vertebral kyphoplasty again noted. IMPRESSION: Mild right basal atelectasis versus scarring. No change Imaging Comparison: 03/06/2018 A single view chest radiograph was obtained. Findings: There is suggestion of mild right basal atelectasis. Heart size is stable. IMPRESSION: No change from the prior day Discharge Condition Upon Discharge: stable Discharge Disposition Patient was discharged to Julita Choudhury DO Mar 07, 2018 10:29
[2018-03-07 12:00] VITALS: BP 130/70
[2018-03-07 16:00] VITALS: BP 104/57
--- NOTE | 2018-03-07 17:07 | Consultation ---
Consult Note Consult Note [facility] 03/07/18 REFERRED BY: Vane Choudhury MD REASON FOR REFERRAL: PNA HPI: 87 yo F PMH of hypothyroid, dementia, trache, peg, agitation, GIB, schizophrenia, seizure d/o, chronic hypercapnia, TIA, was [facility] in from [facility] for hypoxia. Per RN and EMS notes patient desaturate to 98% and was brought to ED. Patient is unable to provide accurate history. The patient was previously ordered a TRILOGY vent by Dr Mann @ [facility] in 2017 but per report was not using the NIMV at the [facility]. She was started on Abx but seems to be stable, AFVSS, off O2, no WCt, no fevers. No cough, no SOB, no wheezing, no F/C, no CP, no SOB. PAST MEDICAL HISTORY: urinary tract infection in the past, history of hypothyroidism, history of dementia, history of trach and PEG in the past, history of vegetations, history schizophrenia, GI bleed, seizure disorder, history of hypercapnia, history of TIA, history of anemia, UTI, and DVT. She has history of hyperlipidemia. ALLERGIES: NKDA Active Scripts Medications Dose Route/Sig Max Daily Dose Days Date Category Dose Instructions Risperdal* (Risperidone) 1 Mg Tablet 1 Mg GT BEDTIME PRN 30 02/13/18 Rx Synthroid (Levothyroxine Sodium) 137 Mcg Tablet 50 Mcg ORAL DAILY 02/08/18 Reported Take in the morning on an empty stomach, at least 30 minutes before food. Vitamin D* (Cholecalciferol (Vitamin D3)*) 1,000 Unit Tablet 5,000 Unit GT DAILY 02/08/18 Reported Aspir 81* (Aspirin) 81 Mg Tablet. 81 Mg GT DAILY 02/08/18 Reported Albuterol Sulfate Hhn* (Albuterol Sulfate) 2.5 Mg/3 Ml Vial.neb 3 Ml INH Q4H PRN 02/08/18 Reported Diltiazem 12Hr ER (Diltiazem HCl) 60 Mg Cap.er.12h 30 Mg ORAL EVERY 6 HOURS 30 05/24/17 Rx Ferrous Sulfate* (Ferrous Sulfate) 325 Mg Tablet 325 Mg ORAL DAILY 07/12/16 Reported Acetaminophen 650 Mg/20.3 Ml Soln 650 Mg GT Q4HR PRN 07/30/14 Reported Zyprexa* (Olanzapine) 5 Mg Tablet 5 Mg ORAL HS 07/30/14 Reported Zocor (Simvastatin) 20 Mg Tablet 20 Mg ORAL BEDTIME 07/30/14 Reported Namenda* (Memantine) 10 Mg Tablet 10 Mg ORAL TWICE A DAY 07/30/14 Reported Docusate Sodium* (Docusate Sodium) 100 Mg Capsule 100 Mg GT TWICE A DAY 07/30/14 Reported Floranex Tablet (Acidophilus/Bulgaricus) 1 Each Tablet 1 Each PO BID 07/30/14 Reported Calcitonin-Oriskany (Calcitonin,Oriskany,Synthetic) 3.7 Ml Garita.pump 3.7 Ml NS DAILY 07/30/14 Reported Multivitamins With Minerals* (Multivitamin With Minerals) 1 Each Tablet 1 Tab ORAL DAILY 07/30/14 Reported SOCIAL HISTORY: Unobtainable FAMILY HISTORY: Unobtainable and NC ROS: Unobtainable PHYSICAL EXAMINATION: Last 24 Hour Vital Signs Date Time Temp Pulse Resp B/P (MAP) Pulse Ox O2 Delivery O2 Flow Rate FiO2 03/07/18 16:00 98.0 80 19 104/57 (73) 94 03/07/18 15:18 81 20 97 Room Air 21 03/07/18 15:12 82 20 96 Room Air 03/07/18 12:33 91 130/72 03/07/18 12:00 97.7 84 20 130/70 (90) 97 03/07/18 11:22 91 18 97 Room Air 21 03/07/18 11:07 86 18 95 Room Air 21 03/07/18 09:00 Room Air 03/07/18 08:06 96 18 97 Room Air 03/07/18 08:06 87 18 96 Room Air 21 03/07/18 08:00 97.6 90 19 122/62 (82) 94 03/07/18 05:22 88 131/81 03/07/18 04:26 86 18 99 Room Air 21 03/07/18 04:15 89 18 96 Room Air 21 03/07/18 04:00 97.8 88 20 131/81 (98) 96 03/07/18 00:30 86 110/65 03/07/18 00:00 97.3 86 20 110/65 (80) 96 03/06/18 23:35 78 20 99 Room Air 03/06/18 23:28 94 18 95 Room Air 03/06/18 21:00 Room Air 03/06/18 20:00 97.5 75 20 131/48 (75) 99 03/06/18 19:41 83 20 99 Room Air 03/06/18 19:34 85 18 95 Room Air 03/06/18 18:00 84 97/61 GENERAL: NAD HEENT: NC/AT, OPC c MMM NECK: Supple. No JVD. HEART: Regular. No gallop or murmur. No friction rub. CHEST: CTA HEART: RRR ABDOMEN: S/NT/ND c NABS EXTREMITIES: No C/C/E CXR: R base atx Laboratory Tests Test 03/07/18 06:50 White Blood Count 7.0 K/UL (4.8-10.8) Red Blood Count 4.32 M/UL (4.20-5.40) Hemoglobin 13.8 G/DL (12.0-16.0) Hematocrit 40.2 % (37.0-47.0) Mean Corpuscular Volume 93 FL (80-99) Mean Corpuscular Hemoglobin 32.0 PG (27.0-31.0) H Mean Corpuscular Hemoglobin Concent 34.4 G/DL (32.0-36.0) Red Cell Distribution Width 11.7 % (11.6-14.8) Platelet Count 214 K/UL (150-450) Mean Platelet Volume 6.8 FL (6.5-10.1) Neutrophils (%) (Auto) % (45.0-75.0) Lymphocytes (%) (Auto) % (20.0-45.0) Monocytes (%) (Auto) % (1.0-10.0) Eosinophils (%) (Auto) % (0.0-3.0) Basophils (%) (Auto) % (0.0-2.0) Differential Total Cells Counted 100 Neutrophils % (Manual) 44 % (45-75) L Lymphocytes % (Manual) 41 % (20-45) Monocytes % (Manual) 11 % (1-10) H Eosinophils % (Manual) 3 % (0-3) Basophils % (Manual) 0 % (0-2) Band Neutrophils 1 % (0-8) Platelet Estimate Adequate Platelet Morphology Normal Red Blood Cell Morphology Normal Sodium Level 144 MMOL/L (136-145) Potassium Level 4.0 MMOL/L (3.5-5.1) Chloride Level 108 MMOL/L (98-107) H Carbon Dioxide Level 26 MMOL/L (21-32) Anion Gap 11 mmol/L (5-15) Blood Urea Nitrogen 14 mg/dL (7-18) Creatinine 0.5 MG/DL (0.55-1.30) L Estimat Glomerular Filtration Rate mL/min (>60) Glucose Level 113 MG/DL (74-106) H Calcium Level 9.6 MG/DL (8.5-10.1) Phosphorus Level 3.2 MG/DL (2.5-4.9) Magnesium Level 2.0 MG/DL (1.8-2.4) Assessment/Plan ASSESSMENT: 87 yo F PMH of hypothyroid, dementia, trach, peg, agitation, GIB, schizophrenia , seizure d/o, chronic hypercapnia, TIA, was brought in from [facility] for mild hypoxia. There is a ? infiltrate vs atx @ the right base and she is being treated empirically for CAP, d-dimer is negative, she is not in ADHF and oxygenation is stable. She was previously ordered a TRILOGY vent by Dr Mann @ [facility] in 2017 but per report was not using the NIMV at the halfway. Her ABG here does not demonstrate CO2 retention. PROBLEM LIST: (1) Pneumonia (2) Mild atx (3) H/O CRF in the past (4) OTHER PROBLEMS: hypothyroid, dementia, trach, peg, agitation, GIB, schizophrenia, seizure d/o, chronic hypercapnia, TIA PLAN: Optimize pulmonary function/mobilize as tolerated PRN O2 Abx per ID PRN HHN's Monitor volumes and renal function GTF's DVT Px: Hep SQ DNAR/DNI Agree with dispo plan back to SNF MD Luciano Adams Ashkan L. MD Mar 07, 2018 17:07
[2018-03-07] MEDS ORDERED: Tubing IV Secondary IV ONE (17:13)
[2018-03-07] MEDS: cefTRIAXone 1 GM in D5W 50 ML IVPB SCH (18:00)
--- NOTE | 2018-03-07 19:15 | Progress Note ---
DATE: 03/07/2018 SUBJECTIVE: The patient is doing well, calm during the evaluation, Peruvian speaking. She is oriented to self and place. Has episodes of anxiety today. No behavior issues. She has cognitive impairment. Compliant with medication. MENTAL STATUS EXAMINATION: The patient is alert, oriented times self and place. Mood is anxious. Affect is flat. Thought process, there is a paucity of thought content. Thought content, no suicidal, homicidal ideation. ASSESSMENT: 1. Alzheimer. 2. Schizophrenia. PLAN: 1. We will continue the Zyprexa, change it to bedtime. 2. Provide the patient with supportive therapy and reality orientation. Burak Viera M.D. DR: Bladimir JOB#: [id number] CC:
--- NOTE | 2018-03-09 15:08 | Cardiology Report ---
APPROVED REPORT EKG Measurement Heart [id number] Normal sinus rhythm Nonspecific T wave abnormality Artifact limits interpretation Abnormal ECG
--- NOTE | 2018-03-09 15:10 | Cardiology Report ---
APPROVED REPORT EKG Measurement Heart [id number] Normal sinus rhythm Normal ECG
== END 2018-03-07 17:50 | DRG 179 ==
LOC: EDBD 10:06 → EMR 10:30 → 4E 10:55 → EDBEDREQ 11:46 → 4E 03-07 06:38
DX: J69.0 Pneumonitis due to inhalation of food and vomit (principal); J13 Pneumonia due to Streptococcus pneumoniae; R09.02 Hypoxemia; G30.9 Alzheimer's disease, unspecified; F02.80 Dementia in other diseases classified elsewhere, unspecified severity, without behavioral disturbance, psychotic disturbance, mood disturbance, and anxiety; F20.9 Schizophrenia, unspecified; Z86.73 Personal history of transient ischemic attack (TIA), and cerebral infarction without residual deficits; E03.9 Hypothyroidism, unspecified; Z66 Do not resuscitate; G40.909 Epilepsy, unspecified, not intractable, without status epilepticus
CPT/HCPCS: 36415; 36600; 71045; 80048; 80053; 82550; 82803; 83605; 83735; 83880; 84100; 84484; 85007; 85025; 85379; 85610; 85730; 93005; 93970; 94640